=== PATIENT | female | born 1970 | race Caucasian/White ===

== ENCOUNTER 2019-11-29 11:34 | Outpatient (REF) | payer OTHER, SELFPAY ==
[2019-11-29 12:38] LABS: MANUAL DIFF FLAG NO
[2019-11-29 12:44] LABS: Basophils Absolute Auto 0.1 X10*3/uL (0.0-0.2); Basophils Percent Auto 0.7 % (0-2); Eosinophils Absolute Auto 0.3 X10*3/uL (0.0-0.4); Eosinophils Percent Auto 3.4 % (0-4); Hematocrit 39.8 % (37-47); Hemoglobin 13.1 g/dl (12.0-16.0); Imm Gran Abs Auto 0.03 X10*3/uL (0.00-0.03); Imm Gran Pct Auto 0.4 % (0.0-0.4); Lymphocytes Absolute Auto 2.5 X10*3/uL (1.2-4.9); Lymphocytes Percent Auto 31.9 % (20-40); Mean Corpuscular HGB Conc 32.9 g/dl (31.0-35.0); Mean Corpuscular Hemoglobin 29.2 pg (27.0-33.0); Mean Corpuscular Volume 88.8 fL (80-98); Mean Platelet Volume 10.9 fL (9.4-12.3); Monocytes Absolute Auto 0.5 X10*3/uL (0.1-1.2); Monocytes Percent Auto 6.2 % (2-11); Neutrophils Absolute Auto 4.4 X10*3/uL (2.0-8.3); Neutrophils Percent Auto 57.4 % (45-73); Platelet Count 264 X10*3/uL (160-400); Red Blood Count 4.48 X10*6/uL (4.20-5.50); Red Cell Distribution Width 12.4 % (11.0-16.0); White Blood Count 7.7 X10*3/uL (4.8-10.8)
[2019-11-29 12:56] LABS: Glucose Urine UA NEG (NEG); Leukocyte Esterase Urine NEG (NEG); Nitrite Urine NEG (NEG); PH 5.5 (5.0-8.0); Specific Gravity - Urine 1.015 (1.005-1.025); Urine Blood 2+ (NEG); Urine Ketones NEG (NEG); Urine Protein 2+ MG/DL (NEG-TRACE)
[2019-11-29 12:59] LABS: Appearance Urine CLEAR; Color Urine STRAW
[2019-11-29 13:14] LABS: Albumin Level 4.1 g/dL (3.5-5.0); Anion Gap 16 (12-20); Blood Urea Nitrogen 48 mg/dL (9-16); Calcium 9.5 mg/dL (8.4-10.2); Carbon Dioxide 21 mmol/L (22-29); Chloride 107 mmol/L (96-108); Estimated Glomerular Filt Rate 18; Phosphorus 4.3 mg/dL (2.7-4.5); Potassium 5.7 mmol/l (3.3-5.1); Sodium 138 mmol/L (135-145)
[2019-11-29 13:27] LABS: Creatinine Urine 49.49 mg/dL; Creatinine Urine 50.13 mg/dL
[2019-11-29 13:30] LABS: Vitamin D 25-OH Total 19.7 ng/mL (>30)
[2019-11-29 13:39] LABS: Renal w Reflex Lab Use Only Order verified
[2019-11-29 13:44] LABS: Squamous Epithelial Cell Urine TRACE /LPF; WBC Urine 0 /HPF (0-4)
[2019-11-29 13:45] LABS: Protein/Creatinine Ratio, Ur 4.34 (<0.2); Total Protein Urine Random 215 mg/dL (<12)
[2019-11-29 13:53] LABS: Glucose Random 79 mg/dL (60-115)
[2019-12-01 17:02] LABS: Calcium (PTHI) 9.6 mg/dL (8.6-10.2); PTHI 330 pg/mL (14-64)
== END 2019-11-29 11:35 | disposition home or self-care (01) ==
LOC: HO.LAB 11:34
PROVIDERS: PCP Internal Medicine; Visit Provider Internal Medicine Nephrology
DX: I13.0 Hypertensive heart and chronic kidney disease with heart failure and stage 1 through stage 4 chronic kidney disease, or unspecified chronic kidney disease (principal); N18.30 Chronic kidney disease, stage 3 unspecified; N17.9 Acute kidney failure, unspecified; E55.9 Vitamin D deficiency, unspecified; N28.9 Disorder of kidney and ureter, unspecified
CPT/HCPCS: 36415; 80051; 81001; 82040; 82043; 82306; 82310; 82550; 82565; 82947; 83735; 83970; 84100; 84156; 84520; 85025

== ENCOUNTER 2019-12-17 14:25 | Emergency (ER) | payer OTHER, SELFPAY ==
[2019-12-17 16:32] VITALS: BP 163/91; PULSE 96; RESP 17; TEMP 36.6; O2SAT 96; BMI 38.2
--- NOTE | 2019-12-17 17:09 | PC.NURSE ---
REPORT GIVEN TO CHAD JOHNSON.
[2019-12-17 17:27] VITALS: BP 139/80; PULSE 91; RESP 18; O2SAT 100
--- NOTE | 2019-12-17 17:30 | ED.GENADULT ---
HPI - General Adult General Chief complaint: General Medical Stated complaint: rash Time Seen by Provider: 12/17/19 16:27 Source: patient Mode of arrival: ambulatory Limitations: no limitations History of Present Illness HPI narrative: States he had an abrasion in the lateral aspect of the left ankle which she has crash in the area turn red also she has some nasal congestion and some cough with associated shortness of breath. No fever or chills. No recent travel or sick contacts. Had COVID test done 2 days ago that was negative Onset (ago): day(s) Location: chest Severity: moderate Pain Consistency: now resolved Relieving factors: none Exacerbating factors: none Associated symptoms: denies other symptoms Treatments prior to arrival: none Related Data Home Medications Medication Instructions Recorded Confirmed carvedilol phosphate 1 cap PO DAILY 12/16/19 12/16/19 docusate sodium [Colace] 100 mg PO DAILY 12/16/19 12/16/19 doxazosin 1 tab PO BEDTIME 12/16/19 12/16/19 furosemide 1 tab PO Q OTHER DAY 12/16/19 12/16/19 meclizine 25 mg PO DAILY PRN 12/16/19 12/16/19 nifedipine 1 tab PO DAILY 12/16/19 12/16/19 sennosides [senna] 8.6 mg PO BEDTIME 12/16/19 12/16/19 Previous Rx's Medication Instructions Recorded cephalexin [Keflex] 500 mg PO Q8H 7 Days #21 cap 12/17/19 doxycycline monohydrate 100 mg PO BID 10 Days #20 cap 12/17/19 Allergies Allergy/AdvReac Type Severity Reaction Status Date / Time No Known Allergies Allergy Mild N/A Verified 12/16/19 14:55 Review of Systems Review of Systems: Constitutional: No Weight loss, No Fever, No Chills, No Night Sweats, No Fatigue, No Malaise ENT/Mouth: No Hearing loss, No Ear Pain, No Nasal Congestion, No Sinus Pain, No Hoarseness, No sore throat, No Rhinorrhea, No Swallowing Difficulty . Eyes: No Eye Pain, No Swelling, No Redness, No Foreign Body, No Discharge, No Vision Changes Cardiovascular: No Chest Pain, No SOB, No Dyspnea on Exertion, No Orthopnea, No Edema, No Palpitations Respiratory: No Cough, No Sputum, No Wheezing, No Smoke Exposure, No Dyspnea Gastrointestinal: No Nausea, No Vomiting, No Diarrhea, No Constipation, No abdominal Pain, No Hematochezia, No Melena Genitourinary: no irregular bleeding, No Dysuria, No Urinary Frequency, No Hematuria, No Urinary Incontinence, No Urgency, No Flank Pain, No Urinary Flow Changes, No Hesitancy Musculoskeletal: No joint pain, No Myalgias, No Joint Swelling Skin: No Skin Lesions, as noted Neuro: No Weakness, No Numbness, No Paresthesias, No Loss of Consciousness, No Dizziness, No Headache Psych: No Anxiety/Panic, No Depression, No SI/HI/AH/VH, No Social Issues Heme/Lymph: No Bruising, No Bleeding,No Lymphadenopathy Endocrine: No Polyuria, No Polydipsia, No Temperature Intolerance Yes all other systems are reviewed and are negative [facility] Past Medical History Attestation statement: The following information was validated with the patient. Medical History (Updated 12/17/19 @ 20:51 by Idris Calderon NP) Anemia Back pain Chronic renal insufficiency Depression GERD (gastroesophageal reflux disease) History of headache History of postoperative nausea HTN (hypertension) Lab test negative for COVID-19 virus Surgical History (Updated 12/16/19 @ 14:53 by Morelia Morrow) History of endometrial ablation Hx of hysterectomy Hx of tubal ligation Social History Social History Smoking Status: Former smoker Packs Per Day: 0.5 Cigarettes Per Day: 10.0 Years Smoked: 10+ Use of substances other than those prescribed or required for medical reasons: No Advance Directives: No Advance Directives Information Provided: No Physical Exam Vital Signs: Vital Signs: Last Vital Signs Temp 97.9 F 12/17/19 16:32 Pulse 93 12/17/19 19:54 Resp 18 12/17/19 19:54 BP 133/79 12/17/19 19:54 Pulse Ox 99 12/17/19 19:54 Body Mass Index 38.2 Reviewed Const: General: cooperative and healthy appearing; No acute distress or intoxicated appearing Nutritional Appearance: average body habitus Orientation/consciousness: patient oriented x3 HENMT: Head: Yes normal to inspection Ears: hearing grossly normal bilaterally Eyes: General: appearance normal, both eyes and all related structures Visual Padilla: normal visual padilla by confrontation Neck: Neck: Yes normal visual inspection and No tender Thyroid: Thyroid normal Chest: Chest palpation & inspection: normal inspection of the chest Resp: Effort & Inspection: normal respiratory effort Cardio: Jugular venous distension: no JVD GI: Inspection: Yes normal to inspection Percussion: Yes normal to percussion Auscultation: normal bowel sounds : General: Yes no CVA tenderness Back/Spine/Pelvis: Back: no CVA tenderness Skin: General skin exam: no rashes or lesions noted Neuro: General: patient oriented x3 Extrem: Other: General: Yes normal to inspection Upper/lower leg/hip images: 1. as noted Course Course Course Narrative: Sign-out to Jacinda PARKER pending repeat troponin, no delta can be discharged home as planned. Medical Decision Making MDM Narrative Medical decision making narrative: Perc negative Heart score 0 Shortness of breath/chest wall pain in the setting of recent URI/cough for 2 days with a negative COVID tests otherwise workup essentially unremarkable here. A 0.5 trope initial repeat for Delta suspicions are low. As it relates to her cellulitis in the left lower extremity no evidence of DVT bilaterally and will go ahead and start her on p.o. antibiotics for home. Patient agreeable stable for discharge. Lab Data Result diagrams: 12/17/19 18:09 12/17/19 18:08 Labs: Lab Results 12/17/19 12/17/19 12/17/19 Range/Units 18:08 18:08 18:09 WBC 7.8 (4.8-10.8) X10*3/uL RBC 3.90 L (4.20-5.50) X10*6/uL Hgb 11.4 L (12.0-16.0) g/dl Hct 34.9 L (37-47) % MCV 89.5 (80-98) fL MCH 29.2 (27.0-33.0) pg MCHC 32.7 (31.0-35.0) g/dl RDW 12.8 (11.0-16.0) % Plt Count 239 (160-400) X10*3/uL MPV 10.2 (9.4-12.3) fL Immature Gran % (Auto) 0.3 (0.0-0.4) % Neut % (Auto) 59.2 (45-73) % Lymph % (Auto) 28.6 (20-40) % [place] % (Auto) 7.2 (2-11) % Eos % (Auto) 4.3 H (0-4) % Baso % (Auto) 0.4 (0-2) % Lymph # (Auto) 2.2 (1.2-4.9) X10*3/uL [place] # (Auto) 0.6 (0.1-1.2) X10*3/uL Eos # (Auto) 0.3 (0.0-0.4) X10*3/uL Baso # (Auto) 0.0 (0.0-0.2) X10*3/uL Abs Immat Gran (auto) 0.02 (0.00-0.03) X10*3/uL Absolute Neuts (auto) 4.6 (2.0-8.3) X10*3/uL Absolute Nucleated RBC 0.000 (0.0-0.012) X10*3/uL Nucleated RBC % (auto) 0.0 (0.0-0.2) /100WBC Sodium 139 (135-145) mmol/L Potassium 4.5 D (3.3-5.1) mmol/l Chloride 106 (96-108) mmol/L Carbon Dioxide 24 (22-29) mmol/L Anion Gap 14 (12-20) BUN 42 H (9-16) mg/dL Creatinine 2.94 H (0.5-1.4) mg/dL Estim Creat Clear Calc 28.1 Estimated GFR 17 Random Glucose 97 (60-115) mg/dL Calcium 8.5 D (8.4-10.2) mg/dL Total Bilirubin < 0.2 (0.0-1.0) mg/dL AST 19 (5-31) U/L ALT 17 (0-31) U/L Alkaline Phosphatase 117 (39-117) U/L Troponin I High Sens 8.5 (<3.5-17.0) ng/L Total Protein 7.0 (6.5-8.0) g/dL Albumin 3.8 (3.5-5.0) g/dL Urine Color Urine Appearance Urine pH (5.0-8.0) Ur Specific [place] (1.005-1.025) Urine Protein (NEG-TRACE) MG/DL Urine Glucose (UA) (NEG) MG/DL Urine Ketones (NEG) MG/DL Urine Blood (NEG) Urine Nitrite (NEG) Ur Leukocyte Esterase (NEG) Urine RBC (0) /HPF Urine WBC (0-4) /HPF Ur Squamous Epith Cells /LPF Urine Bacteria /LPF 12/17/19 Range/Units 19:51 WBC (4.8-10.8) X10*3/uL RBC (4.20-5.50) X10*6/uL Hgb (12.0-16.0) g/dl Hct (37-47) % MCV (80-98) fL MCH (27.0-33.0) pg MCHC (31.0-35.0) g/dl RDW (11.0-16.0) % Plt Count (160-400) X10*3/uL MPV (9.4-12.3) fL Immature Gran % (Auto) (0.0-0.4) % Neut % (Auto) (45-73) % Lymph % (Auto) (20-40) % [place] % (Auto) (2-11) % Eos % (Auto) (0-4) % Baso % (Auto) (0-2) % Lymph # (Auto) (1.2-4.9) X10*3/uL [place] # (Auto) (0.1-1.2) X10*3/uL Eos # (Auto) (0.0-0.4) X10*3/uL Baso # (Auto) (0.0-0.2) X10*3/uL Abs Immat Gran (auto) (0.00-0.03) X10*3/uL Absolute Neuts (auto) (2.0-8.3) X10*3/uL Absolute Nucleated RBC (0.0-0.012) X10*3/uL Nucleated RBC % (auto) (0.0-0.2) /100WBC Sodium (135-145) mmol/L Potassium (3.3-5.1) mmol/l Chloride (96-108) mmol/L Carbon Dioxide (22-29) mmol/L Anion Gap (12-20) BUN (9-16) mg/dL Creatinine (0.5-1.4) mg/dL Estim Creat Clear Calc Estimated GFR Random Glucose (60-115) mg/dL Calcium (8.4-10.2) mg/dL Total Bilirubin (0.0-1.0) mg/dL AST (5-31) U/L ALT (0-31) U/L Alkaline Phosphatase (39-117) U/L Troponin I High Sens (<3.5-17.0) ng/L Total Protein (6.5-8.0) g/dL Albumin (3.5-5.0) g/dL Urine Color YELLOW Urine Appearance CLEAR Urine pH 6.0 (5.0-8.0) Ur Specific [place] 1.015 (1.005-1.025) Urine Protein 2+ H (NEG-TRACE) MG/DL Urine Glucose (UA) NEG (NEG) MG/DL Urine Ketones NEG (NEG) MG/DL Urine Blood 2+ H (NEG) Urine Nitrite NEG (NEG) Ur Leukocyte Esterase NEG (NEG) Urine RBC 1-4 (0) /HPF Urine WBC 0 (0-4) /HPF Ur Squamous Epith Cells TRACE /LPF Urine Bacteria NONE /LPF Discharge Plan Discharge Clinical Impression: Cellulitis and abscess of left leg, Atypical chest pain Patient Disposition: Home, Self-Care Instructions: Cellulitis (ED), Upper Respiratory Infection (ED) Prescriptions: New cephalexin [Keflex] 500 mg capsule 500 mg PO Q8H 7 Days Qty: 21 RF: 0 doxycycline monohydrate 100 mg capsule 100 mg PO BID 10 Days Qty: 20 RF: 0 No Action nifedipine 30 mg tablet extended release 24hr 1 tab PO DAILY RF: 0 sennosides [senna] 8.6 mg Tablet 8.6 mg PO BEDTIME RF: 0 meclizine 25 mg Tablet 25 mg PO DAILY PRN (Reason: Vertigo) RF: 0 docusate sodium [Colace] 100 mg Capsule 100 mg PO DAILY RF: 0 doxazosin 4 mg tablet 1 tab PO BEDTIME RF: 0 furosemide 20 mg tablet 1 tab PO Q OTHER DAY RF: 0 carvedilol phosphate 10 mg capsule, ER multiphase 24 hr 1 cap PO DAILY RF: 0 Referrals: Rozina iNcole MD [Primary Care Provider] - 1 week
--- NOTE | 2019-12-17 17:33 | XR_ITS ---
EXAMINATION: CHEST 1 VIEW CLINICAL INFORMATION: Shortness of breath. COMPARISON: None. TECHNIQUE: An AP view of the chest is provided. FINDINGS: The cardiac silhouette is not enlarged. The mediastinal and hilar contours are unremarkable. There are neither pleural effusions nor pneumothoraces. There are no consolidations. The osseous structures are unremarkable. XR/XR chest 1V IMPRESSION: No evidence for acute disease.
--- NOTE | 2019-12-17 17:44 | US_ITS ---
EXAMINATION: US VENOUS ULTRASOUND WITH DOPPLER LOWER EXTREMITY, BILATERAL CLINICAL INFORMATION: Edema. Pain. COMPARISON: Venous Doppler ultrasound exam left lower extremity 07/16/2017 TECHNIQUE: Ultrasound of the deep veins is performed from the hip to the calf with compression sonography and color and pulse Doppler assessment. Spectral analysis with color-flow imaging is performed. FINDINGS: RIGHT: There is normal venous compression and respiratory variation and augmented flow. The visualized common femoral vein, superficial femoral vein, profunda femoral vein, popliteal vein, and the trifurcation region shows no evidence of deep venous thrombosis. There is no significant popliteal fossa cyst. LEFT: There is normal venous compression and respiratory variation and augmented flow. The visualized common femoral vein, superficial femoral vein, profunda femoral vein, popliteal vein, and the trifurcation region shows no evidence of deep venous thrombosis. There is no significant popliteal fossa cyst. Morphologically normal-appearing lymph node with fatty treasure in left groin measuring 0.9 cm in short axis diameter. If the patient's symptoms persist, followup ultrasound in 5 days 7 days might be of value to exclude proximal propagation from a non-visualized calf vein. US/US venous duplex LE BI IMPRESSION: No DVT demonstrated in the bilateral lower extremity.
[2019-12-17] MEDS: 0.9 % Sodium Chloride 500 ML 1000 ML IV (18:10)
[2019-12-17 18:17] LABS: MANUAL DIFF FLAG NO
[2019-12-17 18:26] LABS: Basophils Percent Auto 0.4 % (0-2); Eosinophils Absolute Auto 0.3 X10*3/uL (0.0-0.4); Eosinophils Percent Auto 4.3 % (0-4); Hematocrit 34.9 % (37-47); Hemoglobin 11.4 g/dl (12.0-16.0); Imm Gran Abs Auto 0.02 X10*3/uL (0.00-0.03); Imm Gran Pct Auto 0.3 % (0.0-0.4); Lymphocytes Absolute Auto 2.2 X10*3/uL (1.2-4.9); Lymphocytes Percent Auto 28.6 % (20-40); Mean Corpuscular HGB Conc 32.7 g/dl (31.0-35.0); Mean Corpuscular Hemoglobin 29.2 pg (27.0-33.0); Mean Corpuscular Volume 89.5 fL (80-98); Mean Platelet Volume 10.2 fL (9.4-12.3); Monocytes Absolute Auto 0.6 X10*3/uL (0.1-1.2); Monocytes Percent Auto 7.2 % (2-11); Neutrophils Absolute Auto 4.6 X10*3/uL (2.0-8.3); Neutrophils Percent Auto 59.2 % (45-73); Platelet Count 239 X10*3/uL (160-400); Red Cell Distribution Width 12.8 % (11.0-16.0); White Blood Count 7.8 X10*3/uL (4.8-10.8)
[2019-12-17 18:56] LABS: Alanine Aminotransferase 17 U/L (0-31); Albumin Level 3.8 g/dL (3.5-5.0); Alkaline Phosphatase 117 U/L (39-117); Anion Gap 14 (12-20); Aspartate Amino Transferase 19 U/L (5-31); Bilirubin Total < 0.2 mg/dL (0.0-1.0); Blood Urea Nitrogen 42 mg/dL (9-16); Calcium 8.5 mg/dL (8.4-10.2); Carbon Dioxide 24 mmol/L (22-29); Chloride 106 mmol/L (96-108); Creatinine Clr Calc Pharmacy 28.1; Estimated Glomerular Filt Rate 17; Glucose Random 97 mg/dL (60-115); Potassium 4.5 mmol/l (3.3-5.1); Sodium 139 mmol/L (135-145); Troponin-I High Sensitivity 8.5 ng/L (<3.5-17.0)
--- NOTE | 2019-12-17 19:14 | PC.NURSE ---
Report received from Simon Kumar RN. This RN assumes care of patient. Will continue to monitor.
[2019-12-17 19:54] VITALS: BP 133/79; PULSE 93; RESP 18; O2SAT 99
[2019-12-17 19:59] LABS: Glucose Urine UA NEG (NEG); Leukocyte Esterase Urine NEG (NEG); Nitrite Urine NEG (NEG); Specific Gravity - Urine 1.015 (1.005-1.025); Urine Blood 2+ (NEG); Urine Ketones NEG (NEG); Urine Protein 2+ MG/DL (NEG-TRACE)
[2019-12-17 20:01] LABS: Appearance Urine CLEAR; Color Urine YELLOW
[2019-12-17 20:13] LABS: Squamous Epithelial Cell Urine TRACE /LPF; WBC Urine 0 /HPF (0-4)
[2019-12-17 22:08] LABS: Troponin-I High Sensitivity 7.5 ng/L (<3.5-17.0)
== END 2019-12-17 22:20 | disposition home or self-care (01) ==
PROVIDERS: Nurse Practitioner Primary Care; Emergency Provider Internal Medicine; PCP Internal Medicine
DX: L03.116 Cellulitis of left lower limb (principal); R60.0 Localized edema; R07.89 Other chest pain; M79.605 Pain in left leg; Z79.899 Other long term (current) drug therapy
CPT/HCPCS: 36415; 71045; 80053; 81001; 81003; 84484; 85025; 93970; 99284

== ENCOUNTER 2019-12-23 08:44 | Day surgery (SDC) | payer OTHER, SELFPAY ==
[2019-12-16 14:50] VITALS: BMI 35.4
--- NOTE | 2019-12-22 11:52 | HO.ANESPROP2 ---
Documented by User: Yovana Huerta 12/22/19 12:13 HPI - Anesthesia Eval Consult details Narrative: 49yo F for Colonoscopy 12/17/19: ED visit with atypical CP, cardiac r/o with EKG and trops. Found to have LLE cellulitis. DVT neg. Started on abx. Instructed to f/u with PCP Follows nephrology for CKD St 4 -renal arteriosclerosis, distended tubles, TBM, IgA mild, adv chronic changes with 80% Interstitial Fibrosis PMFSH Past Medical History Medical History Anemia Back pain Chronic renal insufficiency Depression GERD (gastroesophageal reflux disease) History of headache History of postoperative nausea HTN (hypertension) Lab test negative for COVID-19 virus Surgical History Surgical History History of endometrial ablation Hx of hysterectomy Hx of tubal ligation Social History Social History Smoking Status: Former smoker Packs Per Day: 0.5 Cigarettes Per Day: 10.0 Years Smoked: 10+ Smoked in Last 30 Days: No Smoking Quit Date: 08/2019 Use of substances other than those prescribed or required for medical reasons: No Have you been hit, kicked, punched, or otherwise hurt by someone within the past year? If so, by whom?: No Advance Directives Information Provided: No Recently lost weight without trying: No Meds Allergies Allergy/AdvReac Type Severity Reaction Status Date / Time No Known Allergies Allergy Mild N/A Verified 12/16/19 14:55 Home Medications Medication Instructions Recorded Confirmed Type carvedilol phosphate 1 cap PO DAILY 12/16/19 12/23/19 History docusate sodium [Colace] 100 mg PO DAILY 12/16/19 12/16/19 History doxazosin 1 tab PO BEDTIME 12/16/19 12/23/19 History furosemide 1 tab PO Q OTHER DAY 12/16/19 12/23/19 History meclizine 25 mg PO DAILY PRN 12/16/19 12/23/19 History nifedipine 1 tab PO DAILY 12/16/19 12/23/19 History sennosides [senna] 8.6 mg PO BEDTIME 12/16/19 12/16/19 History cephalexin [Keflex] 500 mg PO Q8H 12/23/19 History Exam Exam Date and Time: December 22, 2019 1152 Height,Weight and Vital Signs: Height 5 ft 5 in Weight 96.615 kg Pertinent Lab Results Pertinent Lab Results: Laboratory Tests 12/17/19 12/17/19 18:08 18:09 WBC 7.8 Hgb 11.4 L Hct 34.9 L Plt Count 239 Sodium 139 Potassium 4.5 D Chloride 106 Carbon Dioxide 24 BUN 42 H Creatinine 2.94 H Narrative Narrative: CXR 12/2019 Neg for acute ds. Rhythm strip 12/2019: appears to be NSR, no official reading Assessment and Plan Assessment Anesthesia Assessment: Chart Reviewed Documented by User: Raquel Lawler 12/23/19 09:56 PMFSH Past Medical History Medical History Anemia Back pain Chronic renal insufficiency Depression GERD (gastroesophageal reflux disease) History of headache History of postoperative nausea HTN (hypertension) Lab test negative for COVID-19 virus Surgical History Surgical History History of endometrial ablation Hx of hysterectomy Hx of tubal ligation Social History Social History Smoking Status: Former smoker Packs Per Day: 0.5 Cigarettes Per Day: 10.0 Years Smoked: 10+ Smoked in Last 30 Days: No Smoking Quit Date: 08/2019 Use of substances other than those prescribed or required for medical reasons: No Have you been hit, kicked, punched, or otherwise hurt by someone within the past year? If so, by whom?: No Advance Directives Information Provided: No Recently lost weight without trying: No Meds Allergies Allergy/AdvReac Type Severity Reaction Status Date / Time No Known Allergies Allergy Mild N/A Verified 12/16/19 14:55 Home Medications Medication Instructions Recorded Confirmed Type carvedilol phosphate 1 cap PO DAILY 12/16/19 12/23/19 History docusate sodium [Colace] 100 mg PO DAILY 12/16/19 12/16/19 History doxazosin 1 tab PO BEDTIME 12/16/19 12/23/19 History furosemide 1 tab PO Q OTHER DAY 12/16/19 12/23/19 History meclizine 25 mg PO DAILY PRN 12/16/19 12/23/19 History nifedipine 1 tab PO DAILY 12/16/19 12/23/19 History sennosides [senna] 8.6 mg PO BEDTIME 12/16/19 12/16/19 History cephalexin [Keflex] 500 mg PO Q8H 12/23/19 History Exam Airway Mallampati Class: I TM Dist: >3cm Neck ROM: Full Loose/Missing/Broken Teeth: No Heart: RRR Lungs: CTA Assessment and Plan Assessment Anesthesia Assessment: Anesthesia Plan Discussed and Chart Reviewed Final Anesthetic Review NPO: Yes ASA Class: III Final Preanesthetic Review: Meds/Allgs Chart Reviewed, Consent Obtained/Reviewed and Anes Risks/Benef Reviewed Patient Risk: Intermediate Procedure Risk: Low Anesthetic Plan Anesthetic Plan: MAC: Disposition: Standard PACU
[2019-12-23 09:25] VITALS: PULSE 73; RESP 18; TEMP 36.2; O2SAT 99
[2019-12-23] MEDS: 0.9 % Sodium Chloride 1,000 ML 50 ML IVCONT (09:41)
--- NOTE | 2019-12-23 10:23 | PC.NURSE ---
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 PT WITH WIDESPREAD RASH AIRWAY PATENT NO SOB NOTED LS CLEAR
== END 2019-12-23 23:59 ==
LOC: HO.SSS 08:45
PROVIDERS: PCP Internal Medicine; Visit Provider Internal Medicine Gastroenterology
DX: Z12.11 Encounter for screening for malignant neoplasm of colon (principal); Z53.9 Procedure and treatment not carried out, unspecified reason; I12.9 Hypertensive chronic kidney disease with stage 1 through stage 4 chronic kidney disease, or unspecified chronic kidney disease; N18.4 Chronic kidney disease, stage 4 (severe); K21.9 Gastro-esophageal reflux disease without esophagitis; Z79.899 Other long term (current) drug therapy; Z87.891 Personal history of nicotine dependence

== ENCOUNTER 2019-12-23 10:21 | Inpatient (IN) | payer OTHER, SELFPAY ==
[2019-12-23] VITALS (7 sets, daily range): BP systolic 110–1734; BP diastolic 60–90; PULSE 79–90; RESP 18–20; TEMP 36.2–37.3; O2SAT 98–100; BMI 39.9
--- NOTE | 2019-12-23 10:23 | US_ITS ---
EXAMINATION: US VENOUS ULTRASOUND WITH DOPPLER LOWER EXTREMITY, LEFT CLINICAL INFORMATION: Marked swelling evaluate for DVT. COMPARISON: Prior ultrasound exam 12/17/2019 TECHNIQUE: Ultrasound of the deep veins is performed from the hip to the calf with compression sonography and color and pulse Doppler assessment. Spectral analysis with color-flow imaging is performed. FINDINGS: There is normal venous compression and respiratory variation and augmented flow. The visualized common femoral vein, superficial femoral vein, profunda femoral vein, popliteal vein, and the trifurcation region shows no evidence of deep venous thrombosis. There is no significant popliteal fossa cyst. If the patient's symptoms persist, followup ultrasound in 5 days 7 days might be of value to exclude proximal propagation from a non-visualized calf vein. US/US venous duplex LE IMPRESSION: No DVT demonstrated in the left lower extremity.
--- NOTE | 2019-12-23 10:23 | ED.SKABFB ---
HPI - Skin/Abscess/Foreign Bdy General Chief complaint: General Medical Stated complaint: skin rash Time Seen by Provider: 12/23/19 10:23 Source: patient and old records reviewed Mode of arrival: other (from [facility] completed prep for colonoscopy but sent due to rash) Limitations: no limitations History of Present Illness MD complaint: rash (LLE worsening cellulitis with swelling and diffuse itching body rash) Onset (ago): day(s) (Friday - seen here for cellulitis sent out on keflex and doxy but area has worsened now with diffuse rash) Location: generalized and LLE Severity: moderate Quality: burning and aching Pain Consistency: constant Relieving factors: none Exacerbating factors: movement Context: recent illness and recent antibiotic Associated symptoms: denies other symptoms Treatments prior to arrival: antibiotic (has been on keflex and doxy since Friday, had US as well negative for DVT) Related Data Home Medications Medication Instructions Recorded Confirmed carvedilol phosphate 10 mg PO DAILY 12/16/19 12/23/19 docusate sodium [Colace] 100 mg PO DAILY PRN 12/16/19 12/23/19 doxazosin 4 mg PO BEDTIME 12/16/19 12/23/19 furosemide 20 mg PO Q2D 12/16/19 12/23/19 meclizine 25 mg PO DAILY PRN 12/16/19 12/23/19 nifedipine 30 mg PO DAILY 12/16/19 12/23/19 Zantrex 1 tab PO TIDWM 12/23/19 12/23/19 cephalexin [Keflex] 500 mg PO Q8H 12/23/19 12/23/19 ergocalciferol (vitamin D2) 1,250 mcg PO PLEITEZ@0900 12/23/19 12/23/19 simethicone 180 mg PO QIDWMHS PRN 12/23/19 12/23/19 sodium zirconium cyclosilicate 10 g PO MOWEFR@0900 12/23/19 12/23/19 [Lokelma] Previous Rx's Medication Instructions Recorded doxycycline monohydrate 100 mg PO BID 10 Days #20 cap 12/17/19 Allergies Allergy/AdvReac Type Severity Reaction Status Date / Time No Known Allergies Allergy Mild N/A Verified 12/16/19 14:55 Review of Systems Review of Systems: Constitutional : No Fever, No Chills ENT/Mouth : No sore throat, No Rhinorrhea Eyes: No Eye Pain, No Swelling, No Redness Cardiovascular : No Chest Pain, No SOB, pos LLE edema Respiratory : No Cough, No Sputum Gastrointestinal : No Nausea, No Vomiting, No Diarrhea, No abdominal Pain Genitourinary : No Dysuria, No Hematuria Musculoskeletal : No joint pain, No Myalgias, No Joint Swelling Skin : pos Skin Lesions, positive skin rash Neuro : No Weakness, No Numbness, No Headache Psych : No Anxiety, No Depression Heme/Lymph: No Bruising, No Bleeding,No Lymphadenopathy Endocrine : No Polyuria, No Polydipsia All other systems reviewed and are negative [facility] Past Medical History Attestation statement: The following information was validated with the patient. Medical History Anemia Back pain Chronic renal insufficiency Depression GERD (gastroesophageal reflux disease) History of headache History of postoperative nausea HTN (hypertension) Lab test negative for COVID-19 virus Surgical History History of endometrial ablation Hx of hysterectomy Hx of tubal ligation Social History Social History Smoking Status: Former smoker Packs Per Day: 0.5 Cigarettes Per Day: 10.0 Years Smoked: 10+ Advance Directives: No Advance Directives Information Provided: Yes Physical Exam Vital Signs: Vital Signs: Last Vital Signs Temp 99.2 F 12/23/19 10:24 Pulse 81 12/23/19 11:24 Resp 18 12/23/19 10:24 BP 148/85 H 12/23/19 11:24 Pulse Ox 100 12/23/19 10:24 Body Mass Index 39.9 Appearance: Alert. Oriented X3. No acute distress. Eyes: Pupils equal, round and reactive to light. ENT: Pharynx normal. Neck: Normal inspection. Neck supple. CVS: Normal heart rate and rhythm. Pulses normal. Respiratory: No respiratory distress. Breath sounds normal. Abdomen: Soft and nontender. Skin: Skin warm and dry. diffuse raised erythematous lacy rash on body looks like drug rash, LLE hot to touch swollen from calf to foot with erythema, no crepitus, distal NV intact, no pain out of proportion. Extremities: pos 1+ pitting L lower extremity edema. pos L calf ttp Neuro: Oriented X 3. No motor deficit. No sensory deficit. Course Course Course Narrative: will admit MDM - Skin/Abscess/Foreign Bdy MDM Narrative Medical decision making narrative: 49 yo female with CKD, HTN here on Friday for cellulitis of LLE started on keflex and doxycycline now has drug rash - will start on pepcid and benadryl, her LLE is more swollen and erythematous will repeat US for DVT as well as cultures/lactic acid - start on likely levofloxacin and vancomycin planned admit at this time Lab Data Result diagrams: 12/23/19 10:43 12/23/19 10:43 Labs: Lab Results 12/23/19 12/23/19 12/23/19 Range/Units 10:42 10:43 10:43 WBC 7.4 (4.8-10.8) X10*3/uL RBC 3.81 L (4.20-5.50) X10*6/uL Hgb 11.1 L (12.0-16.0) g/dl Hct 33.9 L (37-47) % MCV 89.0 (80-98) fL MCH 29.1 (27.0-33.0) pg MCHC 32.7 (31.0-35.0) g/dl RDW 12.6 (11.0-16.0) % Plt Count 261 (160-400) X10*3/uL MPV 10.0 (9.4-12.3) fL Immature Gran % (Auto) 0.4 (0.0-0.4) % Neut % (Auto) 59.3 (45-73) % Lymph % (Auto) 25.6 (20-40) % [place] % (Auto) 7.9 (2-11) % Eos % (Auto) 6.4 H (0-4) % Baso % (Auto) 0.4 (0-2) % Lymph # (Auto) 1.9 (1.2-4.9) X10*3/uL [place] # (Auto) 0.6 (0.1-1.2) X10*3/uL Eos # (Auto) 0.5 H (0.0-0.4) X10*3/uL Baso # (Auto) 0.0 (0.0-0.2) X10*3/uL Abs Immat Gran (auto) 0.03 (0.00-0.03) X10*3/uL Absolute Neuts (auto) 4.4 (2.0-8.3) X10*3/uL Absolute Nucleated RBC 0.000 (0.0-0.012) X10*3/uL Nucleated RBC % (auto) 0.0 (0.0-0.2) /100WBC PT (10.8-13.0) SEC INR (0.9-1.1) APTT (24.1-38.0) SEC Sodium 139 (135-145) mmol/L Potassium 4.3 (3.3-5.1) mmol/l Chloride 103 (96-108) mmol/L Carbon Dioxide 28 (22-29) mmol/L Anion Gap 12 (12-20) BUN 50 H (9-16) mg/dL Creatinine 2.70 H (0.5-1.4) mg/dL Estim Creat Clear Calc 31.2 Estimated GFR 19 Random Glucose 91 (60-115) mg/dL Lactic Acid 1.4 (0.5-2.0) mmol/L Calcium 8.8 (8.4-10.2) mg/dL Magnesium (1.6-2.6) mg/dL Total Bilirubin (0.0-1.0) mg/dL Direct Bilirubin (0.0-0.5) mg/dL AST (5-31) U/L ALT (0-31) U/L Alkaline Phosphatase (39-117) U/L Total Creatine Kinase 120 (26-140) U/L Total Protein (6.5-8.0) g/dL Albumin (3.5-5.0) g/dL COVID-19 (VIPIN) (Negative) COVID-19 Clin Com 12/23/19 12/23/19 12/23/19 Range/Units 10:43 10:43 10:50 WBC (4.8-10.8) X10*3/uL RBC (4.20-5.50) X10*6/uL Hgb (12.0-16.0) g/dl Hct (37-47) % MCV (80-98) fL MCH (27.0-33.0) pg MCHC (31.0-35.0) g/dl RDW (11.0-16.0) % Plt Count (160-400) X10*3/uL MPV (9.4-12.3) fL Immature Gran % (Auto) (0.0-0.4) % Neut % (Auto) (45-73) % Lymph % (Auto) (20-40) % [place] % (Auto) (2-11) % Eos % (Auto) (0-4) % Baso % (Auto) (0-2) % Lymph # (Auto) (1.2-4.9) X10*3/uL [place] # (Auto) (0.1-1.2) X10*3/uL Eos # (Auto) (0.0-0.4) X10*3/uL Baso # (Auto) (0.0-0.2) X10*3/uL Abs Immat Gran (auto) (0.00-0.03) X10*3/uL Absolute Neuts (auto) (2.0-8.3) X10*3/uL Absolute Nucleated RBC (0.0-0.012) X10*3/uL Nucleated RBC % (auto) (0.0-0.2) /100WBC PT 12.5 (10.8-13.0) SEC INR 1.1 (0.9-1.1) APTT 34.4 (24.1-38.0) SEC Sodium (135-145) mmol/L Potassium (3.3-5.1) mmol/l Chloride (96-108) mmol/L Carbon Dioxide (22-29) mmol/L Anion Gap (12-20) BUN (9-16) mg/dL Creatinine (0.5-1.4) mg/dL Estim Creat Clear Calc Estimated GFR Random Glucose (60-115) mg/dL Lactic Acid (0.5-2.0) mmol/L Calcium (8.4-10.2) mg/dL Magnesium 2.2 (1.6-2.6) mg/dL Total Bilirubin 0.4 (0.0-1.0) mg/dL Direct Bilirubin 0.2 (0.0-0.5) mg/dL AST 14 (5-31) U/L ALT 14 (0-31) U/L Alkaline Phosphatase 116 (39-117) U/L Total Creatine Kinase (26-140) U/L Total Protein 6.5 (6.5-8.0) g/dL Albumin 3.6 (3.5-5.0) g/dL COVID-19 (VIPIN) Negative (Negative) COVID-19 Clin Com See Note Discharge Plan Discharge Clinical Impression: Cellulitis, Drug rash Patient Disposition: Admitted As Inpatient Prescriptions: No Action nifedipine 30 mg tablet extended release 24hr 30 mg PO DAILY RF: 0 meclizine 25 mg Tablet 25 mg PO DAILY PRN (Reason: Vertigo) RF: 0 docusate sodium [Colace] 100 mg Capsule 100 mg PO DAILY PRN (Reason: Constipation) RF: 0 doxazosin 4 mg tablet 4 mg PO BEDTIME RF: 0 furosemide 20 mg tablet 20 mg PO Q2D RF: 0 carvedilol phosphate 10 mg capsule, ER multiphase 24 hr 10 mg PO DAILY RF: 0 cephalexin [Keflex] 500 mg capsule 500 mg PO Q8H RF: 0 doxycycline monohydrate 100 mg capsule 100 mg PO BID 10 Days Qty: 20 RF: 0 simethicone 180 mg Capsule 180 mg PO QIDWMHS PRN (Reason: gas) RF: 0 ergocalciferol (vitamin D2) 1,250 mcg (50,000 unit) Capsule 1,250 mcg PO PLEITEZ@0900 RF: 0 Lokelma 10 gram Powder In Packet 10 g PO MOWEFR@0900 RF: 0 Zantrex 1 tab PO TIDWM RF: 0
[2019-12-23] MEDS: diphenhydrAMINE HCL 50 MG/ML VIAL 25 MG IVPUSH ×2 (10:47→15:31)
[2019-12-23] MEDS: Morphine Sulfate 4 MG/ML CARTRIDGE IVPUSH (10:48)
[2019-12-23] MEDS: ondansetron HCL 4 MG/2 ML VIAL IVPUSH (10:48)
[2019-12-23] MEDS: 0.9 % Sodium Chloride 500 ML IV (10:48)
[2019-12-23] MEDS: Famotidine/PF 20 MG/2 ML VIAL IVPUSH (10:48)
[2019-12-23 10:51] LABS: MANUAL DIFF FLAG NO
--- NOTE | 2019-12-23 10:54 | PC.NURSE ---
IV BY OR STAFF. 20 G R HAND. ALL LABS AND BC X 2 DRAWN BY PCT. MEDICATED PER ORDERS. PHARM AT BEDSIDE FOR MED REC. US READY FOR PATIENT.
[2019-12-23 10:55] LABS: Basophils Percent Auto 0.4 % (0-2); Eosinophils Absolute Auto 0.5 X10*3/uL (0.0-0.4); Eosinophils Percent Auto 6.4 % (0-4); Hematocrit 33.9 % (37-47); Hemoglobin 11.1 g/dl (12.0-16.0); Imm Gran Abs Auto 0.03 X10*3/uL (0.00-0.03); Imm Gran Pct Auto 0.4 % (0.0-0.4); Lymphocytes Absolute Auto 1.9 X10*3/uL (1.2-4.9); Lymphocytes Percent Auto 25.6 % (20-40); Mean Corpuscular HGB Conc 32.7 g/dl (31.0-35.0); Mean Corpuscular Hemoglobin 29.1 pg (27.0-33.0); Monocytes Absolute Auto 0.6 X10*3/uL (0.1-1.2); Monocytes Percent Auto 7.9 % (2-11); Neutrophils Absolute Auto 4.4 X10*3/uL (2.0-8.3); Neutrophils Percent Auto 59.3 % (45-73); Platelet Count 261 X10*3/uL (160-400); Red Blood Count 3.81 X10*6/uL (4.20-5.50); Red Cell Distribution Width 12.6 % (11.0-16.0); White Blood Count 7.4 X10*3/uL (4.8-10.8)
[2019-12-23 11:00] LABS: INTERNATIONAL NORM RATIO 1.1 (0.9-1.1); Prothrombin Time 12.5 SEC (10.8-13.0)
[2019-12-23 11:02] LABS: Partial Thromboplastin Time 34.4 SEC (24.1-38.0)
[2019-12-23 11:17] LABS: COVID-19 Test Negative (Negative)
[2019-12-23 11:20] LABS: Lactic Acid 1.4 mmol/L (0.5-2.0)
--- NOTE | 2019-12-23 11:24 | PC.NURSE ---
RETURNS FROM US. PAIN 0/10. ABX UP PER ORDERS
[2019-12-23 11:25] LABS: Alanine Aminotransferase 14 U/L (0-31); Albumin Level 3.6 g/dL (3.5-5.0); Alkaline Phosphatase 116 U/L (39-117); Anion Gap 12 (12-20); Aspartate Amino Transferase 14 U/L (5-31); Bilirubin Direct 0.2 mg/dL (0.0-0.5); Bilirubin Total 0.4 mg/dL (0.0-1.0); Blood Urea Nitrogen 50 mg/dL (9-16); Calcium 8.8 mg/dL (8.4-10.2); Carbon Dioxide 28 mmol/L (22-29); Chloride 103 mmol/L (96-108); Creatinine Clr Calc Pharmacy 31.2; Estimated Glomerular Filt Rate 19; Glucose Random 91 mg/dL (60-115); Magnesium 2.2 mg/dL (1.6-2.6); Potassium 4.3 mmol/l (3.3-5.1); Sodium 139 mmol/L (135-145); Total Protein 6.5 g/dL (6.5-8.0)
[2019-12-23] MEDS: levoFLOXacin/D5W 500 MG/100 ML PIGGYBACK 100 MG IV (11:26)
--- NOTE | 2019-12-23 13:00 | P.HPHOSP_ITS ---
History of Present Illness Date of Service: 12/23/19 Chief Complaint: Diffuse rash 49-year-old female presented complaining of diffuse rash. patient had been in the ER about 1 week prior to presentation complaining of left lower extremity erythema and fevers and chills. At that time she was given Keflex and do xycycline. Of note prior to starting the antibiotics she was already having a mild pruritic rash. But after starting antibiotics rash got worse and more diffuse of on trunk and legs. So she has returned to the ED. Patient has also been complaining worsening lower extremity edema and orthopnea. Review of Systems Review of Systems: Constitutional: fevers Eyes: denies blurry vision ENT: denies sore throat CVS: denies chest pain Respiratory: dyspnea GI: no abdominal pain : denies dysuria MSK: denies neck pain Skin: diffuserash Neuro: denies specific motor weakness Psych: denies suicidal ideation Endocrine: denies heat/cold intoleratnce Hematologic: denies easy bleeding Allergy: denies hives [facility] Medical History Anemia Back pain Chronic renal insufficiency Depression GERD (gastroesophageal reflux disease) History of headache History of postoperative nausea HTN (hypertension) Lab test negative for COVID-19 virus Surgical History History of endometrial ablation Hx of hysterectomy Hx of tubal ligation Social History Smoking Status: Former smoker Packs Per Day: 0.5 Cigarettes Per Day: 10.0 Years Smoked: 10+ Advance Directives: No Advance Directives Information Provided: Yes Meds Allergies Allergy/AdvReac Type Severity Reaction Status Date / Time No Known Allergies Allergy Mild N/A Verified 12/16/19 14:55 Home Medications Medication Instructions Recorded Confirmed Type carvedilol phosphate 10 mg PO DAILY 12/16/19 12/23/19 History docusate sodium [Colace] 100 mg PO DAILY PRN 12/16/19 12/23/19 History doxazosin 4 mg PO BEDTIME 12/16/19 12/23/19 History furosemide 20 mg PO Q2D 12/16/19 12/23/19 History meclizine 25 mg PO DAILY PRN 12/16/19 12/23/19 History nifedipine 30 mg PO DAILY 12/16/19 12/23/19 History Zantrex 1 tab PO TIDWM 12/23/19 12/23/19 History cephalexin [Keflex] 500 mg PO Q8H 12/23/19 12/23/19 History ergocalciferol (vitamin D2) 1,250 mcg PO PLEITEZ@0900 12/23/19 12/23/19 History simethicone 180 mg PO QIDWMHS PRN 12/23/19 12/23/19 History sodium zirconium cyclosilicate 10 g PO MOWEFR@0900 12/23/19 12/23/19 History [Lokelma] Physical Exam Vital Signs and Narrative: Vital Signs: Last Vital Signs Temp 99.2 F 12/23/19 10:24 Pulse 81 12/23/19 11:24 Resp 18 12/23/19 10:24 BP 148/85 H 12/23/19 11:24 Pulse Ox 100 12/23/19 10:24 Body Mass Index 39.9 General: no acute distress HEENT: atraumatic Neck: normal to visual inspection CVS: S1, S2, RRR, 2-3+ edema Resp: CTA bilateral Chest: non tender GI: soft, non tender, non distended : no CVA tenderness Skin: diffuse rash, LLE erythema Extremities: edema Neuro: Oriented X3, grossly intact Psych: cooperative, Results Labs CBC and Chem 7: 12/23/19 10:43 12/23/19 10:43 Labs: Laboratory Results - last 24 hr 12/23/19 12/23/19 12/23/19 10:42 10:43 10:43 MCV 89.0 MCH 29.1 MCHC 32.7 RDW 12.6 Plt Count 261 MPV 10.0 Immature Gran % (Auto) 0.4 Neut % (Auto) 59.3 Lymph % (Auto) 25.6 [place] % (Auto) 7.9 Eos % (Auto) 6.4 H Baso % (Auto) 0.4 Lymph # (Auto) 1.9 [place] # (Auto) 0.6 Eos # (Auto) 0.5 H Baso # (Auto) 0.0 Abs Immat Gran (auto) 0.03 Absolute Neuts (auto) 4.4 Absolute Nucleated RBC 0.000 Nucleated RBC % (auto) 0.0 PT INR APTT Anion Gap 12 Estim Creat Clear Calc 31.2 Estimated GFR 19 Random Glucose 91 Lactic Acid 1.4 Calcium 8.8 Magnesium Total Bilirubin Direct Bilirubin AST ALT Alkaline Phosphatase Total Creatine Kinase 120 Total Protein Albumin COVID-19 (VIPIN) COVID-19 Clin Com 12/23/19 12/23/19 12/23/19 10:43 10:43 10:50 MCV MCH MCHC RDW Plt Count MPV Immature Gran % (Auto) Neut % (Auto) Lymph % (Auto) [place] % (Auto) Eos % (Auto) Baso % (Auto) Lymph # (Auto) [place] # (Auto) Eos # (Auto) Baso # (Auto) Abs Immat Gran (auto) Absolute Neuts (auto) Absolute Nucleated RBC Nucleated RBC % (auto) PT 12.5 INR 1.1 APTT 34.4 Anion Gap Estim Creat Clear Calc Estimated GFR Random Glucose Lactic Acid Calcium Magnesium 2.2 Total Bilirubin 0.4 Direct Bilirubin 0.2 AST 14 ALT 14 Alkaline Phosphatase 116 Total Creatine Kinase Total Protein 6.5 Albumin 3.6 COVID-19 (VIPIN) Negative COVID-19 Clin Com See Note Imaging Radiologist's Impressions: Impressions Venous Duplex 12/23/19 10:23 IMPRESSION: No DVT demonstrated in the left lower extremity. Assessment and Plan (1) Chronic renal insufficiency: Problem details: sees Dr. Wang -renal arteriosclerosis, distended tubles, TBM, IgA mild, adv chronic changes with 80% Interstitial Fibrosis Status: Acute (2) HTN (hypertension): Status: Acute (3) Cellulitis: Qualifiers: Laterality: left Site of cellulitis: extremity Site of cellulitis of extremity: lower extremity Qualified Code(s): L03.116 - Cellulitis of left lower limb Status: Acute (4) Drug rash: Status: Acute (5) Edema: Status: Acute 49-year-old female presented with diffuse rash and lower extremity edema and shortness of breath diffuse rash unclear if due to antibiotics as did start partially prior to starting antibiot ics, will hold Keflex and doxycycline, prednisone, Benadryl left lower extremity cellulitis likely mix of bacterial cellulitis and stasis dermatitis will treat with IV vancomycin lower extremity edema and shortness of breath suspect acute on chronic diastolic CHF IV Lasix check echo hold nifedipine as could be contributing to lower extremity edema hypertension continue carvedilol, doxazosin, Lasix nifedipine on hold for lower extremity edema CKD 4 due to hypertension, at baseline
--- NOTE | 2019-12-23 13:26 | PC.NURSE ---
RESTING IN NO DISTRESS. ITCHING AND PAIN BETTER. HAS BEEN ADMITTED. AWAITING BED ASSIGNMENT
--- NOTE | 2019-12-23 15:32 | PC.NURSE ---
MEDICATED PER ORDERS FOR REOCCURING ITCHING. AWAITING BE ASSIGNMENT
--- NOTE | 2019-12-23 17:00 | PC.NURSE ---
REPORT TO FLOOR. PT W/O COMPLAINTS AT THIS TIME.
--- NOTE | 2019-12-23 18:45 | PC.NURSE ---
PT FED DINNER, AWAITING TRANSPORT TO FLOOR.
[2019-12-23] MEDS: predniSONE 20 MG TABLET 40 MG PO (19:51)
[2019-12-23] MEDS: diphenhydrAMINE HCL 25 MG TABLET PO (19:58)
[2019-12-23] MEDS: 0.9 % Sodium Chloride Flush 3 ML SYRINGE IVFLUSH ×2 (19:59→20:55)
[2019-12-23] MEDS: Furosemide 40 MG/4 ML VIAL IVPUSH (20:54)
[2019-12-23] MEDS: Doxazosin Mesylate 2 MG TABLET 4 MG PO (20:54)
[2019-12-24 03:43] VITALS: BP 134/64; PULSE 89; RESP 19; TEMP 36.4; O2SAT 98
[2019-12-24] MEDS: oxyCODONE HCl Immed Release 5 MG TABLET PO ×2 (04:38→20:44)
[2019-12-24 05:15] LABS: MANUAL DIFF FLAG NO
[2019-12-24 05:18] LABS: Basophils Percent Auto 0.4 % (0-2); Eosinophils Percent Auto 0.1 % (0-4); Hematocrit 33.4 % (37-47); Hemoglobin 10.7 g/dl (12.0-16.0); Imm Gran Abs Auto 0.02 X10*3/uL (0.00-0.03); Imm Gran Pct Auto 0.3 % (0.0-0.4); Lymphocytes Absolute Auto 0.8 X10*3/uL (1.2-4.9); Lymphocytes Percent Auto 11.2 % (20-40); Mean Corpuscular Hemoglobin 28.5 pg (27.0-33.0); Mean Corpuscular Volume 89.1 fL (80-98); Mean Platelet Volume 10.3 fL (9.4-12.3); Monocytes Absolute Auto 0.1 X10*3/uL (0.1-1.2); Monocytes Percent Auto 1.2 % (2-11); Neutrophils Percent Auto 86.8 % (45-73); Platelet Count 253 X10*3/uL (160-400); Red Blood Count 3.75 X10*6/uL (4.20-5.50); Red Cell Distribution Width 12.5 % (11.0-16.0); White Blood Count 6.9 X10*3/uL (4.8-10.8)
[2019-12-24 05:41] LABS: Anion Gap 15 (12-20); Blood Urea Nitrogen 53 mg/dL (9-16); Calcium 8.6 mg/dL (8.4-10.2); Carbon Dioxide 23 mmol/L (22-29); Chloride 104 mmol/L (96-108); Creatinine Clr Calc Pharmacy 25.8; Estimated Glomerular Filt Rate 15; Glucose Random 135 mg/dL (60-115); Potassium 4.8 mmol/l (3.3-5.1); Sodium 137 mmol/L (135-145)
[2019-12-24 05:48] LABS: B Type Natriuretic Peptide 56 pg/mL (<100)
[2019-12-24 07:21] VITALS: BP 131/70; PULSE 83; RESP 17; TEMP 36.3; O2SAT 97
--- NOTE | 2019-12-24 09:42 | HO.PM.IMPN ---
Subjective Subjective Date of Service: 12/24/19 Interval History: improving Cardiovascular Cardiovascular: Reports no additional cardiovascular complaints Respiratory Respiratory: Reports no additional respiratory complaints Physical Exam Vital Signs: Vital Signs: Last Vital Signs Temp 97.4 F 12/24/19 07:21 Pulse 83 12/24/19 07:21 Resp 17 12/24/19 07:21 BP 131/70 12/24/19 07:21 Pulse Ox 97 12/24/19 07:21 Body Mass Index 39.9 General: AO X 3, no acute distress Resp: CTA bilateral CVS: S1,S2,RRR, edema slightly improved GI: soft, non tender, non distended Neuro: motor grossly intact Psych: appropriate affect rash improved Objective Data Current Medications Generic Name Dose Route Start Last Admin Trade Name Freq PRN Reason Stop Dose Admin Acetaminophen 650 mg 12/24/19 04:30 Acetaminophen 325 Mg Tablet PO Q6H PRN Pain and Fever Carvedilol 3.125 mg 12/24/19 09:00 Carvedilol 3.125 Mg Tablet PO BID GERARDO Diphenhydramine HCl 25 mg 12/23/19 19:02 12/23/19 19:58 Diphenhydramine Hcl 25 Mg Tablet PO 25 mg Q8H PRN Administration Allergic Reaction Docusate Sodium 100 mg 12/23/19 19:02 Docusate Sodium 100 Mg Capsule PO DAILY PRN Constipation Doxazosin Mesylate 4 mg 12/23/19 21:00 12/23/19 20:54 Doxazosin Mesylate 2 Mg Tablet PO 4 mg BEDTIME GERARDO Administration Protocol Ergocalciferol 1,250 mcg 12/26/19 09:00 Ergocalciferol (Vitamin D2) 1,250 Mcg Capsule PO PLEITEZ@0900 GERARDO Vancomycin HCl 1,000 mg/ 270 mls @ 270 mls/hr 12/24/19 09:00 Sodium Chloride IV Q24H GERARDO Oxycodone HCl 5 mg 12/24/19 04:30 12/24/19 04:38 Oxycodone Hcl Immed Release 5 Mg Tablet PO 5 mg Q6H PRN Administration Pain, Severe (Pain Scale 7-10) Prednisone 40 mg 12/23/19 19:02 12/23/19 19:51 Prednisone 20 Mg Tablet PO 40 mg DAILY GERARDO Administration Sodium Chloride 3 ml 12/23/19 19:02 12/23/19 20:55 0.9 % Sodium Chloride Flush 3 Ml Syringe IVFLUSH 3 ml QSHIFT GERARDO Administration Labs CBC & Chem 7: 12/24/19 04:35 12/24/19 04:35 Assessment and Plan (1) Chronic renal insufficiency: Problem details: sees Dr. Wang -renal arteriosclerosis, distended tubles, TBM, IgA mild, adv chronic changes with 80% Interstitial Fibrosis Status: Acute (2) HTN (hypertension): Status: Acute (3) Cellulitis: Status: Acute (4) Drug rash: Status: Acute (5) Edema: Status: Acute Assessment and Plan: 49-year-old female presented with diffuse rash and lower extremity edema and shortness of breath diffuse rash unclear if due to antibiotics as did start partially prior to starting antibiotics, holding Keflex and doxycycline, prednisone, Benadryl left lower extremity cellulitis likely mix of bacterial cellulitis and stasis dermatitis will treat with IV vancomycin, compression lower extremity edema and shortness of breath check echo creaitnine trending up, will d/c lasix hold nifedipine as could be contributing to lower extremity edema hypertension continue carvedilol, doxazosin, Lasix nifedipine on hold for lower extremity edema esequiel on CKD 4 hold lasix
[2019-12-24] MEDS: vancomycin HCL 1,000 MG in 0.9 % Sodium Chloride 250 ML 270 MG IV (10:16)
[2019-12-24] MEDS: carvediloL 3.125 MG TABLET PO ×2 (10:16→20:44)
[2019-12-24] MEDS: diphenhydrAMINE HCL 25 MG TABLET PO ×2 (10:16→18:42)
[2019-12-24] MEDS: predniSONE 20 MG TABLET 40 MG PO (10:16)
[2019-12-24] MEDS: 0.9 % Sodium Chloride Flush 3 ML SYRINGE IVFLUSH ×2 (10:19→15:58)
[2019-12-24 11:11] VITALS: BP 157/90; PULSE 87; RESP 16; TEMP 36.3; O2SAT 99
[2019-12-24 14:49] VITALS: BMI 39.9
--- NOTE | 2019-12-24 15:36 | MHC.CM.PN ---
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 SHE RPORTED SHE IS NEARING END STAGE RENAL DISEase and will probably have to start having hemodialysi before a kidney transplant , she also reported that on this ADMISSION HWR CREATINE INCREASED AND NOW HER LASIX IS ON HOLD AND BECAUSE OF THE LOWER LEG SWELLING AND SOME SHORTNESS OF BREATH THEY WILL BE DOING A CARDIAC ECHO.THE [facility]OSPITLIST . SHE HAS NO SERVICES IN THE HOME /NOR DME . SHE IS ACTIVE , INDEPENDENTIN ALL ADLS AND MOBILITY DISCHARGE PLAN HOME N SERVICES TRANSPORTATION HER PCP DR KALPESH PONCE SHE WILL CALL FOR POST DISCHARGE FOLLOW UP WE=LL DR VARGHESE RENAL PATIENT HAS A HEALTH CARE [PROXY , REQUESTED A COPY TO BE BROUGHT IN TO HAVE ON FILE
[2019-12-24 15:58] VITALS: BP 164/85; PULSE 85; RESP 18; TEMP 36; O2SAT 99
[2019-12-24] MEDS: Acetaminophen 325 MG TABLET 650 MG PO (16:05)
--- NOTE | 2019-12-24 19:02 | CA_ITS ---
Transthoracic Echocardiogram Patient (Last, First, Middle): Meliza Olguin, Gender: Female Date of : 1970 Age: 49 Procedure Date: 12/24/2019 Procedure Type: Transthoracic [place] [facility] [place]: 165.1 cm Weight: 108.86 kg BSA: 2.14 m2 Heart Rate: bpm BP: 136 / 64 mmHg Land Clearer: Referring MD: Oleksandr Miller MD Head Of Academic Technology: Jay Hendrickson MD Symptoms: chf Study Quality: Fair ECG Rhythm: Sinus Conclusions: - 1. Normal LV systolic function with mild LVH 2. Normal cardiac valvular Doppler 3. Normal RV systolic pressure 4. No pericardial effusion Findings Left Ventricle Normal left ventricular size and systolic function. There is mildly increased left ventricular wall thickness. The visually estimated ejection fraction is between 60-65%. Spectral Doppler is indicative of a normal filling pattern. Right Ventricle Normal right ventricular cavity size and systolic function. Atria The left atrium is likely dilated. There is lipomatous hypertrophy of the interatrial septum. There is no evidence of interatrial shunt. The right atrium is normal in size. Aortic Valve The aortic valve structure and function is likely normal. There is no aortic valve stenosis. There is no aortic valve regurgitation. Mitral Valve Normal mitral valve structure and function. There is trace mitral valve regurgitation. There is no mitral valve stenosis. Pulmonic Valve The pulmonic valve was not well visualized. Tricuspid Valve Likely normal tricuspid valve structure and function. There is trace tricuspid valve regurgitation. The right ventricular systolic pressure is normal. The right ventricular systolic pressure is 32 mmHg. Normal right atrial pressure. Great Vessels All visible segments of the aorta are normal in size. The pulmonary artery was not well visualized. Venous The inferior vena cava is normal in size and collapses greater than 50% with inspiration. Pericardium/Pleural There is no evidence of pericardial effusion. Prior Study Comparison No prior study available for comparison. Measurements 2D Linear Measurements IVSd: 1.34 0.6-0.9/0.6-1.0 cm LVIDd: 4.36 3.9-5.3/4.2-5.9 cm LVIDd Index: 2.04 2.4-3.2/2.2-3.1 cm/m2 LVIDs: 2.53 2.0-3.6 cm LVPWd: 1.28 0.7-1.1 cm Ao Root: 3.10 2.1-3.5 cm LA Diam: 4.40 2.7-3.8/3.0-4.0 cm LAIDs Index: 2.06 1.5-2.3 cm/m2 LV Mass: 267.47 67-162/88-224 g LV Mass Index: 124.99 43-95/49-115 g/m2 LVOT Diam: 2.00 3.0+(-)1.3 cm Mitral Valve MV Pk E: 1.05 MV PK A: 0.87 MV Decel Time: 201.00 E/A: 1.20 E'Lateral: 13.20 E'Medial: 6.77 E/E' Med: 15.50 E/E' Lat: 8.00 PHT: 59.00 MVA PHT: 3.73 Decel Clarke: 5.22 Aortic Valve AoV Pk Morales: 1.89 AoV Mn Morales: 1.17 AoV VTI: 0.40 AoV Pk Grad: 14.00 Aov Mn Grad: 7.00 SAI Cont.VTI: 2.36 LVOT LVOT Pk Morales: 1.38 LVOT Mn Morales: 0.96 LVOT VTI: 0.30 LVOT Pk Grad: 8.00 LVOT Mn Grad: 4.00 LVOT Diam: 2.00 LVOT Area: 3.14 Diastolic Function MV Pk E: 1.05 MV Pk A: 0.87 E/A: 1.20 E'Medial: 6.77 E/E' Med: 15.50 E' Laterial: 13.20 E/E' Lat: 8.00 Tricuspid Valve TR Pk Morales: 2.69 TR Pk Grad: 29.00 RA Press: 3.00 RVSP: 32.00 Great Vessels Aorta Ao Root-2D: 3.10 2.0-3.7 cm Ao Asc: 3.40 2.1-3.4 cm Pulmonary Valve PV Pk Morales: 1.14 Peak PV Grad: 5.00 Updated in Other Vendor System with Status of Final Jay Hendrickson MD electronically signed on 12/24/2019 3:41:48 PM with status of Final
[2019-12-24 20:00] VITALS: BP 164/77; PULSE 85; RESP 20; TEMP 36.5; O2SAT 98
[2019-12-24] MEDS: Doxazosin Mesylate 2 MG TABLET 4 MG PO (20:44)
[2019-12-24 23:28] VITALS: BP 161/89; PULSE 77; RESP 19; TEMP 36.3; O2SAT 98
[2019-12-25] VITALS (8 sets, daily range): BP systolic 116–166; BP diastolic 62–89; PULSE 76–98; RESP 18–20; TEMP 36–37.2; O2SAT 96–99
[2019-12-25] MEDS: 0.9 % Sodium Chloride Flush 3 ML SYRINGE IVFLUSH ×4 (00:20→21:43)
[2019-12-25 07:50] LABS: MANUAL DIFF FLAG NO
[2019-12-25 07:55] LABS: Basophils Percent Auto 0.2 % (0-2); Eosinophils Absolute Auto 0.1 X10*3/uL (0.0-0.4); Eosinophils Percent Auto 1.1 % (0-4); Hematocrit 31.3 % (37-47); Hemoglobin 10.3 g/dl (12.0-16.0); Imm Gran Abs Auto 0.09 X10*3/uL (0.00-0.03); Imm Gran Pct Auto 0.7 % (0.0-0.4); Lymphocytes Absolute Auto 2.2 X10*3/uL (1.2-4.9); Lymphocytes Percent Auto 18.5 % (20-40); Mean Corpuscular HGB Conc 32.9 g/dl (31.0-35.0); Mean Corpuscular Hemoglobin 29.3 pg (27.0-33.0); Mean Corpuscular Volume 88.9 fL (80-98); Mean Platelet Volume 10.4 fL (9.4-12.3); Monocytes Absolute Auto 0.9 X10*3/uL (0.1-1.2); Monocytes Percent Auto 7.6 % (2-11); Neutrophils Absolute Auto 8.7 X10*3/uL (2.0-8.3); Neutrophils Percent Auto 71.9 % (45-73); Platelet Count 239 X10*3/uL (160-400); Red Blood Count 3.52 X10*6/uL (4.20-5.50); Red Cell Distribution Width 12.7 % (11.0-16.0)
[2019-12-25 08:23] LABS: Anion Gap 15 (12-20); Blood Urea Nitrogen 65 mg/dL (9-16); Calcium 8.4 mg/dL (8.4-10.2); Carbon Dioxide 24 mmol/L (22-29); Chloride 104 mmol/L (96-108); Creatinine Clr Calc Pharmacy 25.1; Estimated Glomerular Filt Rate 15; Glucose Fasting 98 mg/dL (60-99); Potassium 4.5 mmol/l (3.3-5.1); Sodium 138 mmol/L (135-145)
[2019-12-25] MEDS: predniSONE 20 MG TABLET 40 MG PO (09:34)
[2019-12-25] MEDS: carvediloL 3.125 MG TABLET PO ×2 (09:34→21:41)
[2019-12-25] MEDS: diphenhydrAMINE HCL 25 MG TABLET PO ×2 (09:42→17:03)
[2019-12-25 09:48] LABS: Vancomycin Trough 11.2 mcg/mL (10.0-20.0)
--- NOTE | 2019-12-25 10:06 | P.PNIM_ITS ---
Subjective Subjective Date of Service: 12/25/19 Interval History: edema improved, rash much improved Cardiovascular Cardiovascular: Reports no additional cardiovascular complaints Respiratory Respiratory: Reports no additional respiratory complaints Physical Exam Vital Signs: Vital Signs: Last Vital Signs Temp 97.0 F 12/25/19 07:52 Pulse 76 12/25/19 07:52 Resp 18 12/25/19 07:52 BP 158/89 H 12/25/19 07:52 Pulse Ox 99 12/25/19 07:52 Body Mass Index 39.9 General: AO X 3, no acute distress Resp: CTA bilateral CVS: S1,S2,RRR, edema much improved, LLE erythema improved, still warm and tender GI: soft, non tender, non distended Neuro: motor grossly intact Psych: appropriate affect rash almost resolved Objective Data Current Medications Generic Name Dose Route Start Last Admin Trade Name Freq PRN Reason Stop Dose Admin Acetaminophen 650 mg 12/24/19 04:30 12/24/19 16:05 Acetaminophen 325 Mg Tablet PO 650 mg Q6H PRN Administration Pain and Fever Carvedilol 3.125 mg 12/24/19 09:00 12/25/19 09:34 Carvedilol 3.125 Mg Tablet PO 3.125 mg BID GERARDO Administration Diphenhydramine HCl 25 mg 12/23/19 19:02 12/25/19 09:42 Diphenhydramine Hcl 25 Mg Tablet PO 25 mg Q8H PRN Administration Allergic Reaction Docusate Sodium 100 mg 12/23/19 19:02 Docusate Sodium 100 Mg Capsule PO DAILY PRN Constipation Doxazosin Mesylate 4 mg 12/23/19 21:00 12/24/19 20:44 Doxazosin Mesylate 2 Mg Tablet PO 4 mg BEDTIME GERARDO Administration Protocol Ergocalciferol 1,250 mcg 12/26/19 09:00 Ergocalciferol (Vitamin D2) 1,250 Mcg Capsule PO PLEITEZ@0900 GERARDO Vancomycin HCl 1,500 mg/ 300 mls @ 200 mls/hr 12/26/19 10:00 Sodium Chloride IV Q48H [facility] Oxycodone HCl 5 mg 12/24/19 04:30 12/24/19 20:44 Oxycodone Hcl Immed Release 5 Mg Tablet PO 5 mg Q6H PRN Administration Pain, Severe (Pain Scale 7-10) Prednisone 40 mg 12/23/19 19:02 12/25/19 09:34 Prednisone 20 Mg Tablet PO 40 mg DAILY GERARDO Administration Sodium Chloride 3 ml 12/23/19 19:02 12/25/19 09:34 0.9 % Sodium Chloride Flush 3 Ml Syringe IVFLUSH 3 ml QSHIFT GEARRDO Administration Labs CBC & Chem 7: 12/25/19 07:16 12/25/19 07:16 Microbiology Microbiology Results: Microbiology 12/23/19 10:44 Blood - Venous Blood Culture - Preliminary No growth after 24 hours. 12/23/19 10:42 Blood - Venous Blood Culture - Preliminary No growth after 24 hours. Assessment and Plan (1) Chronic renal insufficiency: Problem details: sees Dr. Wang -renal arteriosclerosis, distended tubles, TBM, IgA mild, adv chronic changes with 80% Interstitial Fibrosis Status: Acute (2) HTN (hypertension): Status: Acute (3) Cellulitis: Status: Acute (4) Drug rash: Status: Acute (5) Edema: Status: Acute Assessment and Plan: 49-year-old female presented with diffuse rash and lower extremity edema and shortness of breath diffuse rash unclear if due to antibiotics as did start partially prior to starting antibiotics, holding Keflex and doxycycline, prednisone, Benadryl, mostly resolved left lower extremity cellulitis likely mix of bacterial cellulitis and stasis dermatitis, improving continue IV vancomycin, compression lower extremity edema and shortness of breath echo with some diastolic dysfunction creaitnine trending up, lasix dsicontinued holding nifedipine as could be contributing to lower extremity edema hypertension continue carvedilol, doxazosin, bp now increasind as nifedipine stopped, will start on hydralazine esequiel on CKD 4 continues to trend up, vanc trough ok at 11, patient did not receive much diuresis, ?inflammatory in setting of rash/cellulitis, nephro eval, monitor
--- NOTE | 2019-12-25 12:50 | PM.CNNEP ---
History of Present Illness Reason for Consult Consult date: 12/25/19 Reason for consult: RACHELL Chief Complaint Chief complaint: LLE Cellulitis / Rash History of Present Illness Narrative: Ms. Meliza Perry is a 49-year-old female with past medical history of CKD stage IV (Cr BL 2.5-3.0mg/dL) due to hypertensive nephrosclerosis and mild IgA. She also has significant tubulo-interstitial fibrosis ~80% on biopsy 06/2018. She otherwise has a history of HTN, secondary hyperparathyroidism, hyperkalemia (on kayexalate), who [place] [facility] [place]LE [place]. She actually missed her scheduled colonoscopy appointment, which was required for ongoing transplant evaluation to come to the hospital. At any rate, she presented with a Cr near baseline Cr 2.7-2.9 representing a GFR near 20ml/min. She was diuresed once with lasix 40mg IV. Unfortunately her Cr then peaked at 3.3 representing a GFR of 15ml/min. She tells me with Abx support her leg has improved greatly. She denies dyspnea, orthopnea. Her RLE is grossly smaller than her left. U/S in the past showed no DVT on left. She doesnt feel like she needs her diuretics at the moment. She takes lasix at home once daily, but prescribed more so for hypertension. Review of Systems Review of Systems Yes all other systems are reviewed and are negative, unobtainable due to endotracheal tube, Unobtainable due to mental condition, Unobtainable due to mental status and Other Constitutional: Denies anorexia, Denies body ache(s), Denies chills and Denies fever(s) Eyes: Denies change in vision Denies dizziness and Reports dry mouth Cardiovascular: Denies Abdominal Distension, Denies chest pain, Denies syncope and Denies dyspnea Respiratory: Denies chest congestion, Denies cough, Denies dyspnea and Denies wheezing Gastrointestinal: Denies abdominal pain, Denies melena, Denies bloating, Denies hematochezia, Denies diarrhea and Denies vomiting Genitourinary: Denies hematuria, Denies flank pain and Denies urinary urgency Musculoskeletal: Denies back pain Skin/Breast: Reports rash (LLE) and Reports skin swelling (LLE) Denies dizziness and Denies syncope Allergic/Immunologic: Denies wheezing PMFSH Past Medical History Medical History Anemia Back pain Chronic renal insufficiency Depression GERD (gastroesophageal reflux disease) History of headache History of postoperative nausea HTN (hypertension) Lab test negative for COVID-19 virus Family History Pertinent family history: The patient's family history is positive for diabetes mellitus involving her father and mother, hypertension involving her mother, and cancer involving her mother. Her family history is negative for kidney disease. Her parents are both living. Surgical History Surgical History History of endometrial ablation Hx of hysterectomy Hx of tubal ligation Social History Social History Smoking Status: Former smoker Packs Per Day: 0.5 Cigarettes Per Day: 10.0 Years Smoked: 10+ Currently Displaying Signs/Symptoms of Drug Intoxication Withdrawal: No Advance Directives: No Advance Directives Information Provided: Yes Do you have thoughts of harming others: None Do you have a plan to hurt others: No Plan service: No Current occupational status: employed Meds Allergies Allergy/AdvReac Type Severity Reaction Status Date / Time No Known Allergies Allergy Mild N/A Verified 12/16/19 14:55 Home Medications Medication Instructions Recorded Confirmed Type carvedilol phosphate 10 mg PO DAILY 12/16/19 12/23/19 History docusate sodium [Colace] 100 mg PO DAILY PRN 12/16/19 12/23/19 History doxazosin 4 mg PO BEDTIME 12/16/19 12/23/19 History furosemide 20 mg PO Q2D 12/16/19 12/23/19 History meclizine 25 mg PO DAILY PRN 12/16/19 12/23/19 History nifedipine 30 mg PO DAILY 12/16/19 12/23/19 History Zantrex 1 tab PO TIDWM 12/23/19 12/23/19 History cephalexin [Keflex] 500 mg PO Q8H 12/23/19 12/23/19 History ergocalciferol (vitamin D2) 1,250 mcg PO PLEITEZ@0900 12/23/19 12/23/19 History simethicone 180 mg PO QIDWMHS PRN 12/23/19 12/23/19 History sodium zirconium cyclosilicate 10 g PO MOWEFR@0900 12/23/19 12/23/19 History [Lokelma] Physical Exam Vital Signs: Last Vital Signs Temp 96.8 F 12/25/19 11:46 Pulse 76 12/25/19 11:46 Resp 18 12/25/19 11:46 BP 157/89 H 12/25/19 11:46 Pulse Ox 99 12/25/19 11:46 Body Mass Index 39.9 Const General: cooperative HENMT Mouth: Normal oral and palatal mucosa present Chest Chest palpation & inspection: normal inspection of the chest Resp Effort & Inspection: normal respiratory effort, normal respiratory pattern, no audible wheezes, no cough and not labored Auscultation: clear to auscultation bilaterally and no crackles Cardio Heart sounds: S1 normal heart sound present and S2 normal heart sound present GI Auscultation: normal bowel sounds Extrem Other: LLE with resolved erythema. 2+ edema of the LLE. Trace RLE edema Results Lab Results Result Diagrams: 12/25/19 07:16 12/25/19 07:16 Lab results: Chemistry 12/23/19 12/24/19 12/25/19 10:43 04:35 07:16 Sodium 139 137 138 Potassium 4.3 4.8 4.5 Carbon Dioxide 28 23 24 BUN 50 H 53 H 65 H Creatinine 2.70 H 3.27 H 3.36 H Calcium 8.8 8.6 8.4 Hematology 12/23/19 12/24/19 12/25/19 10:43 04:35 07:16 WBC 7.4 6.9 12.0 H Hgb 11.1 L 10.7 L 10.3 L Plt Count 261 253 239 Assessment and Plan (1) HTN (hypertension): Status: Acute Continue Coreg hold lasix c/w doxazosin c/w nifedipine (2) Chronic renal insufficiency: Qualifiers: Chronic kidney disease stage: stage 4 (severe) Qualified Code(s): N18.4 - Chronic kidney disease, stage 4 (severe) Problem details: sees Dr. Wang -renal arteriosclerosis, distended tubles, TBM, IgA mild, adv chronic changes with 80% Interstitial Fibrosis Now with acute kidney injury likely in the setting of sepsis and renal insufficiency. No signs of cardiorenal like physiology leading to nephrosarca. It's possible however she could have AIN, but this appears to be an acute Cr rise after recent Abx. Usually a persistent rise of Cr is seen 2 weeks post antibiotic. Status: Acute hold diuretics. The asymmetry to the edema reassures me this is not nephrogenic nor cardiogenic edema. encourage PO intake Doesnt necessarily need IVF She is asymptomatic without acid/base or electrolyte issues Can order a U/A and Urine lytes to work up volume status. Original U/A looks bland except for some baseline albuminuria On discharge do not place on DAVID/ARB, given her advanced GFR she will need close f/u with Dr Wang given her GFR and transplant evaluation. Renal diet with Low Potassium. (3) Cellulitis: Qualifiers: Laterality: left Site of cellulitis: extremity Site of cellulitis of extremity: lower extremity Qualified Code(s): L03.116 - Cellulitis of left lower limb Status: Acute Prednisone and renall dosed Abx as you are. Procedures Abscess I/D Date of Service: 12/25/19
[2019-12-25] MEDS: hydrALAZINE HCl 25 MG TABLET PO ×2 (14:31→21:39)
[2019-12-25 17:08] LABS: Glucose Urine UA NEG (NEG); Leukocyte Esterase Urine NEG (NEG); Nitrite Urine NEG (NEG); PH 6.5 (5.0-8.0); Specific Gravity - Urine 1.015 (1.005-1.025); Urine Blood 2+ (NEG); Urine Ketones NEG (NEG); Urine Protein 2+ MG/DL (NEG-TRACE)
[2019-12-25 17:13] LABS: Appearance Urine CLEAR; Color Urine YELLOW
[2019-12-25 17:20] LABS: Bacteria Urine TRACE /LPF; RBC Urine 0-2 /HPF (0); Squamous Epithelial Cell Urine TRACE /LPF; WBC Urine 0 /HPF (0-4)
[2019-12-25 17:45] LABS: Creatinine Urine 31.69 mg/dL; Potassium Urine Random 9.5 mmol/l
[2019-12-25] MEDS: Doxazosin Mesylate 2 MG TABLET 4 MG PO (21:40)
[2019-12-25] MEDS: oxyCODONE HCl Immed Release 5 MG TABLET PO (21:46)
[2019-12-26] VITALS: BP 133/75; PULSE 89; RESP 18; TEMP 37.1; O2SAT 97
[2019-12-26 04:00] VITALS: BP 116/62; PULSE 78; RESP 16; TEMP 36.4
[2019-12-26 08:00] VITALS: BP 134/78; PULSE 75; RESP 16; TEMP 36.4; O2SAT 98
[2019-12-26] MEDS: predniSONE 20 MG TABLET 40 MG PO (08:58)
[2019-12-26] MEDS: carvediloL 3.125 MG TABLET PO (08:59)
[2019-12-26] MEDS: hydrALAZINE HCl 25 MG TABLET PO (08:59)
[2019-12-26] MEDS: 0.9 % Sodium Chloride Flush 3 ML SYRINGE IVFLUSH (08:59)
[2019-12-26] MEDS: Ergocalciferol (Vitamin D2) 1,250 MCG CAPSULE 1250 MCG PO (08:59)
[2019-12-26 09:08] LABS: MANUAL DIFF FLAG NO
[2019-12-26 09:12] LABS: Basophils Absolute Auto 0.1 X10*3/uL (0.0-0.2); Basophils Percent Auto 0.5 % (0-2); Eosinophils Absolute Auto 0.2 X10*3/uL (0.0-0.4); Eosinophils Percent Auto 1.6 % (0-4); Hematocrit 34.1 % (37-47); Hemoglobin 10.9 g/dl (12.0-16.0); Imm Gran Abs Auto 0.09 X10*3/uL (0.00-0.03); Imm Gran Pct Auto 0.8 % (0.0-0.4); Lymphocytes Percent Auto 27.7 % (20-40); Mean Corpuscular Hemoglobin 28.7 pg (27.0-33.0); Mean Corpuscular Volume 89.7 fL (80-98); Mean Platelet Volume 10.3 fL (9.4-12.3); Monocytes Absolute Auto 0.8 X10*3/uL (0.1-1.2); Monocytes Percent Auto 7.6 % (2-11); Neutrophils Absolute Auto 6.8 X10*3/uL (2.0-8.3); Neutrophils Percent Auto 61.8 % (45-73); Platelet Count 252 X10*3/uL (160-400); Red Cell Distribution Width 12.6 % (11.0-16.0)
[2019-12-26 09:42] LABS: Anion Gap 11 (12-20); Blood Urea Nitrogen 60 mg/dL (9-16); Calcium 8.4 mg/dL (8.4-10.2); Carbon Dioxide 26 mmol/L (22-29); Chloride 108 mmol/L (96-108); Creatinine Clr Calc Pharmacy 26.6; Estimated Glomerular Filt Rate 16; Glucose Fasting 97 mg/dL (60-99); Potassium 4.6 mmol/l (3.3-5.1); Sodium 140 mmol/L (135-145)
[2019-12-26 09:47] LABS: Vancomycin Random 6.7 mcg/mL (15-20)
[2019-12-26] MEDS: diphenhydrAMINE HCL 25 MG TABLET PO (10:22)
--- NOTE | 2019-12-26 10:50 | PC.NURSE ---
random vanco was 6.[address] Miller notified via [employer].
--- NOTE | 2019-12-26 11:25 | HO.PM.IMPN ---
Subjective Subjective Date of Service: 12/26/19 Interval History: feels better, edema continues to improve Cardiovascular Cardiovascular: Reports no additional cardiovascular complaints Respiratory Respiratory: Reports no additional respiratory complaints Physical Exam Vital Signs: Vital Signs: Last Vital Signs Temp 97.5 F 12/26/19 08:00 Pulse 75 12/26/19 08:00 Resp 16 12/26/19 08:00 BP 134/78 12/26/19 08:00 Pulse Ox 98 12/26/19 08:00 Body Mass Index 39.9 General: AO X 3, no acute distress Resp: CTA bilateral CVS: S1,S2,RRR, edema much improved, LLE erythema improved, still warm and tender GI: soft, non tender, non distended Neuro: motor grossly intact Psych: appropriate affect rash almost resolved Objective Data Current Medications Generic Name Dose Route Start Last Admin Trade Name Freq PRN Reason Stop Dose Admin Acetaminophen 650 mg 12/24/19 04:30 12/24/19 16:05 Acetaminophen 325 Mg Tablet PO 650 mg Q6H PRN Administration Pain and Fever Carvedilol 3.125 mg 12/24/19 09:00 12/26/19 08:59 Carvedilol 3.125 Mg Tablet PO 3.125 mg BID GERARDO Administration Diphenhydramine HCl 25 mg 12/23/19 19:02 12/26/19 10:22 Diphenhydramine Hcl 25 Mg Tablet PO 25 mg Q8H PRN Administration Allergic Reaction Docusate Sodium 100 mg 12/23/19 19:02 Docusate Sodium 100 Mg Capsule PO DAILY PRN Constipation Doxazosin Mesylate 4 mg 12/23/19 21:00 12/25/19 21:40 Doxazosin Mesylate 2 Mg Tablet PO 4 mg BEDTIME GERARDO Administration Protocol Ergocalciferol 1,250 mcg 12/26/19 09:00 12/26/19 08:59 Ergocalciferol (Vitamin D2) 1,250 Mcg Capsule PO 1,250 mcg PLEITEZ@0900 GERARDO Administration Hydralazine HCl 25 mg 12/25/19 15:00 12/26/19 08:59 Hydralazine Hcl 25 Mg Tablet PO 25 mg TID GERARDO Administration Protocol Vancomycin HCl 1,500 mg/ 300 mls @ 200 mls/hr 12/26/19 10:00 12/26/19 10:20 Sodium Chloride IV 200 mls/hr Q48H GERARDO Administration Oxycodone HCl 5 mg 12/24/19 04:30 12/25/19 21:46 Oxycodone Hcl Immed Release 5 Mg Tablet PO 5 mg Q6H PRN Administration Pain, Severe (Pain Scale 7-10) Prednisone 40 mg 12/23/19 19:02 12/26/19 08:58 Prednisone 20 Mg Tablet PO 40 mg DAILY GERARDO Administration Sodium Chloride 3 ml 12/23/19 19:02 12/26/19 08:59 0.9 % Sodium Chloride Flush 3 Ml Syringe IVFLUSH 3 ml QSHIFT GERARDO Administration Labs CBC & Chem 7: 12/26/19 08:45 12/26/19 08:45 Microbiology Microbiology Results: Microbiology 12/23/19 10:44 Blood - Venous Blood Culture - Preliminary No growth after 48 hours. 12/23/19 10:42 Blood - Venous Blood Culture - Preliminary No growth after 48 hours. Assessment and Plan (1) Chronic renal insufficiency: Problem details: sees Dr. Wang -renal arteriosclerosis, distended tubles, TBM, IgA mild, adv chronic changes with 80% Interstitial Fibrosis Now with acute kidney injury likely in the setting of sepsis and renal insufficiency. No signs of cardiorenal like physiology leading to nephrosarca. It's possible however she could have AIN, but this appears to be an acute Cr rise after recent Abx. Usually a persistent rise of Cr is seen 2 weeks post antibiotic. Status: Acute (2) HTN (hypertension): Status: Acute (3) Cellulitis: Status: Acute (4) Drug rash: Status: Acute (5) Edema: Status: Acute Assessment and Plan: 49-year-old female presented with diffuse rash and lower extremity edema and shortness of breath diffuse rash unclear if due to antibiotics as did start partially prior to starting antibiotics, holding Keflex and doxycycline, prednisone, Benadryl, mostly resolved left lower extremity cellulitis likely mix of bacterial cellulitis and stasis dermatitis, improving continue IV vancomycin, compression lower extremity edema and shortness of breath echo with some diastolic dysfunction creatnine trending up, lasix dsicontinued, holding nifedipine as could be contributing to lower extremity edema hypertension continue carvedilol, doxazosin, bp now increasind as nifedipine stopped, started on hydralazine esequiel on CKD 4 now stable, vanc non toxic levels, patient did not receive much diuresis, nephro appreciated
[2019-12-26 11:27] VITALS: BP 157/90; PULSE 75; RESP 16; TEMP 36.4; O2SAT 99
--- NOTE | 2019-12-26 12:26 | PM.DS ---
DS: Providers Provider Date of admission: 12/23/19 12:59 Primary care physician: Unknown Physician Consults: 12/25/19 08:33 Consult to Nephrology Routine Consulting Provider: Jon Wang Reason for consultation: esequiel on ckd DS: Diagnosis Discharge Diagnosis (1) Chronic renal insufficiency: Status: Acute Problem details: sees Dr. Wang -renal arteriosclerosis, distended tubles, TBM, IgA mild, adv chronic changes with 80% Interstitial Fibrosis Now with acute kidney injury likely in the setting of sepsis and renal insufficiency. No signs of cardiorenal like physiology leading to nephrosarca. It's possible however she could have AIN, but this appears to be an acute Cr rise after recent Abx. Usually a persistent rise of Cr is seen 2 weeks post antibiotic. (2) HTN (hypertension): Status: Acute (3) Cellulitis: Status: Acute (4) Drug rash: Status: Acute (5) Edema: Status: Acute DS: Medications Discharge Medications Home Medications: Home Medications Medication Instructions Recorded Confirmed carvedilol phosphate 10 mg PO DAILY 12/16/19 12/23/19 docusate sodium [Colace] 100 mg PO DAILY PRN 12/16/19 12/23/19 doxazosin 4 mg PO BEDTIME 12/16/19 12/23/19 furosemide 20 mg PO Q2D 12/16/19 12/23/19 meclizine 25 mg PO DAILY PRN 12/16/19 12/23/19 Lokelma 10 g PO MOWEFR@0900 12/23/19 12/23/19 Zantrex 1 tab PO TIDWM 12/23/19 12/23/19 ergocalciferol (vitamin D2) 1,250 mcg PO PLEITEZ@0900 12/23/19 12/23/19 simethicone 180 mg PO QIDWMHS PRN 12/23/19 12/23/19 Previous Rx's Medication Instructions Recorded doxycycline monohydrate 100 mg PO BID 10 Days #20 cap 12/17/19 hydralazine 25 mg PO TID #90 tab 12/26/19 DS: Summary Hospital Course Hospital Course: patient was admitted for diffuse skin rash and left lower extremity cellulitis. She was given IV vancomycin, steroids, Benadryl. Her rash resolved. Her cellulitis significantly improved. Her renal function did worsen. she was seen by Nephrology who felt patient was close to baseline, she will follow-up as outpatient. Patient was noted to have bilateral lower extremity edema. She was given short course of IV Lasix which improved her edema. Her echocardiogram did show some diastolic dysfunction. Her nifedipine was discontinued as well as that could contribute to her lower extremity edema. This was replaced with hydralazine. Patient is now feeling better will be discharged home. Time Spent with Patient Time attestation: Total time spent providing and/or coordinating discharge services: Physical Exam Vital Signs: Vital Signs: Last Vital Signs Temp 97.5 F 12/26/19 11:27 Pulse 75 12/26/19 11:27 Resp 16 12/26/19 11:27 BP 157/90 H 12/26/19 11: Pulse Ox 99 12/26/19 11:27 Body Mass Index 39.9 General: AO X 3, no acute distress Resp: CTA bilateral CVS: S1,S2,RRR, 1+ edmea GI: soft, non tender, non distended Neuro: motor grossly intact Psych: appropriate affect DS: Data Data Completed and Pending Labs on day of discharge: 12/23/19 10:23 Famotidine/PF [Pepcid/PF] 20 mg IVPUSH ONCE ONE Morphine Sulfate 4 mg IVPUSH ONCE ONE diphenhydrAMINE HCL [Benadryl] 25 mg IVPUSH ONCE ONE ondansetron HCL [Zofran] 4 mg IVPUSH ONCE ONE US venous duplex LE LT Stat 12/23/19 10:26 Consult Rx Perform Med Rec 1 each MISCELLANE ONCE PRN levoFLOXacin/D5W [Levaquin] 500 mg in 100 ml IV ONCE 12/23/19 10:30 0.9 % Sodium Chloride [Ns] 500 ml IV 500 mls/hr 12/23/19 10:42 Lactic Acid Stat 12/23/19 10:43 Basic Metabolic Panel Stat Complete Blood Count Auto Diff Stat Creatine Kinase Total Stat Liver Panel Stat Magnesium Stat Partial Thromboplastin Time Stat Prothrombin Time INR Stat 12/23/19 10:50 COVID-19 ID NOW ([place]) Stat 12/23/19 12:52 Transfer Order Routine 12/23/19 15:27 diphenhydrAMINE HCL [Benadryl] 25 mg IVPUSH ONCE ONE 12/23/19 Lunch Low Sodium Diet 12/23/19 21:00 Furosemide [Lasix] 40 mg IVPUSH BID 12/24/19 04:35 B Type Natriuretic Peptide Routine Basic Metabolic Panel DAILY@0600 Complete Blood Count Auto Diff DAILY@0600 12/24/19 09:00 vancomycin HCL 1,000 mg 0.9 % Sodium Chloride [Ns] 250 ml IV Q24H 12/24/19 10:05 vancomycin HCL 1,000 mg .ROUTE .STK-MED ONE 12/24/19 19:02 CA echo transthoracic complete Routine 12/25/19 07:16 BMP [Basic Metabolic Panel Fasting] Routine Complete Blood Count Auto Diff Routine 12/25/19 08:52 Vancomycin Trough Routine 12/25/19 16:51 Creatinine Urine Stat Electrolytes Urine Stat 12/26/19 08:45 BMP [Basic Metabolic Panel Fasting] Routine Complete Blood Count Auto Diff Routine Vancomycin Random Routine Laboratory Last Values WBC 11.0 X10*3/uL (4.8-10.8) H 12/26/19 08:45 RBC 3.80 X10*6/uL (4.20-5.50) L 12/26/19 08:45 Hgb 10.9 g/dl (12.0-16.0) L 12/26/19 08:45 Hct 34.1 % (37-47) L 12/26/19 08:45 MCV 89.7 fL (80-98) 12/26/19 08:45 MCH 28.7 pg (27.0-33.0) 12/26/19 08:45 MCHC 32.0 g/dl (31.0-35.0) 12/26/19 08:45 RDW 12.6 % (11.0-16.0) 12/26/19 08:45 Plt Count 252 X10*3/uL (160-400) 12/26/19 08:45 MPV 10.3 fL (9.4-12.3) 12/26/19 08:45 Immature Gran % (Auto) 0.8 % (0.0-0.4) H 12/26/19 08:45 Neut % (Auto) 61.8 % (45-73) 12/26/19 08:45 Lymph % (Auto) 27.7 % (20-40) 12/26/19 08:45 [place] % (Auto) 7.6 % (2-11) 12/26/19 08:45 Eos % (Auto) 1.6 % (0-4) 12/26/19 08:45 Baso % (Auto) 0.5 % (0-2) 12/26/19 08:45 Lymph # (Auto) 3.0 X10*3/uL (1.2-4.9) 12/26/19 08:45 [place] # (Auto) 0.8 X10*3/uL (0.1-1.2) 12/26/19 08:45 Eos # (Auto) 0.2 X10*3/uL (0.0-0.4) 12/26/19 08:45 Baso # (Auto) 0.1 X10*3/uL (0.0-0.2) 12/26/19 08:45 Abs Immat Gran (auto) 0.09 X10*3/uL (0.00-0.03) H 12/26/19 08:45 Absolute Neuts (auto) 6.8 X10*3/uL (2.0-8.3) 12/26/19 08:45 Absolute Nucleated RBC 0.000 X10*3/uL (0.0-0.012) 12/26/19 08:45 Nucleated RBC % (auto) 0.0 /100WBC (0.0-0.2) 12/26/19 08:45 PT 12.5 SEC (10.8-13.0) 12/23/19 10:43 INR 1.1 (0.9-1.1) 12/23/19 10:43 APTT 34.4 SEC (24.1-38.0) 12/23/19 10:43 Sodium 140 mmol/L (135-145) 12/26/19 08:45 Potassium 4.6 mmol/l (3.3-5.1) 12/26/19 08:45 Chloride 108 mmol/L (96-108) 12/26/19 08:45 Carbon Dioxide 26 mmol/L (22-29) 12/26/19 08:45 Anion Gap 11 (12-20) L 12/26/19 08:45 BUN 60 mg/dL (9-16) H 12/26/19 08:45 Creatinine 3.17 mg/dL (0.5-1.4) H 12/26/19 08:45 Estim Creat Clear Calc 26.6 12/26/19 08:45 Estimated GFR 16 12/26/19 08:45 Random Glucose 135 mg/dL (60-115) H D 12/24/19 04:35 Fasting Glucose 97 mg/dL (60-99) 12/26/19 08:45 Lactic Acid 1.4 mmol/L (0.5-2.0) 12/23/19 10:42 Calcium 8.4 mg/dL (8.4-10.2) 12/26/19 08:45 Magnesium 2.2 mg/dL (1.6-2.6) 12/23/19 10:43 Total Bilirubin 0.4 mg/dL (0.0-1.0) 12/23/19 10:43 Direct Bilirubin 0.2 mg/dL (0.0-0.5) 12/23/19 10:43 AST 14 U/L (5-31) 12/23/19 10:43 ALT 14 U/L (0-31) 12/23/19 10:43 Alkaline Phosphatase 116 U/L (39-117) 12/23/19 10:43 Total Creatine Kinase 120 U/L (26-140) 12/23/19 10:43 B-Natriuretic Peptide 56 pg/mL (<100) 12/24/19 04:35 Total Protein 6.5 g/dL (6.5-8.0) 12/23/19 10:43 Albumin 3.6 g/dL (3.5-5.0) 12/23/19 10:43 Urine Color YELLOW 12/25/19 16:51 Urine Appearance CLEAR 12/25/19 16:51 Urine pH 6.5 (5.0-8.0) 12/25/19 16:51 Ur Specific Inlet 1.015 (1.005-1.025) 12/25/19 16:51 Urine Protein 2+ MG/DL (NEG-TRACE) H 12/25/19 16:51 Urine Glucose (UA) NEG MG/DL (NEG) 12/25/19 16:51 Urine Ketones NEG MG/DL (NEG) 12/25/19 16:51 Urine Blood 2+ (NEG) H 12/25/19 16:51 Urine Nitrite NEG (NEG) 12/25/19 16:51 Ur Leukocyte Esterase NEG (NEG) 12/25/19 16:51 Urine RBC 0-2 /HPF (0) 12/25/19 16:51 Urine WBC 0 /HPF (0-4) 12/25/19 16:51 Ur Squamous Epith Cells TRACE /LPF 12/25/19 16:51 Urine Bacteria TRACE /LPF 12/25/19 16:51 Ur Random Sodium 57.0 mmol/L 12/25/19 16:51 Ur Random Potassium 9.5 mmol/l 12/25/19 16:51 Ur Random Chloride 44.0 mmol/L 12/25/19 16:51 Urine Creatinine 31.69 mg/dL 12/25/19 16:51 Vancomycin Trough 11.2 mcg/mL (10.0-20.0) 12/25/19 08:52 Random Vancomycin 6.7 mcg/mL (15-20) L 12/26/19 08:45 COVID-19 (VIPIN) Negative (Negative) 12/23/19 10:50 COVID-19 Clin Com See Note 12/23/19 10:50 Preliminary micro results at discharge 12/23/19 10:44 Blood Culture - Preliminary Blood - Venous No growth after 48 hours. 12/23/19 10:42 Blood Culture - Preliminary Blood - Venous No growth after 48 hours. Discharge Plan Discharge Patient Disposition: Home, Self-Care Referrals: Varinder Galicia MD [Physician] - Physician,Unknown [Primary Care Provider] - Discharge Medications: New hydralazine 25 mg Tablet 25 mg PO TID Qty: 90 RF: 0 Continued meclizine 25 mg Tablet 25 mg PO DAILY PRN (Reason: Vertigo) RF: 0 docusate sodium [Colace] 100 mg Capsule 100 mg PO DAILY PRN (Reason: Constipation) RF: 0 doxazosin 4 mg tablet 4 mg PO BEDTIME RF: 0 furosemide 20 mg tablet 20 mg PO Q2D RF: 0 carvedilol phosphate 10 mg capsule, ER multiphase 24 hr 10 mg PO DAILY RF: 0 doxycycline monohydrate 100 mg capsule 100 mg PO BID 10 Days Qty: 20 RF: 0 simethicone 180 mg Capsule 180 mg PO QIDWMHS PRN (Reason: gas) RF: 0 ergocalciferol (vitamin D2) 1,250 mcg (50,000 unit) Capsule 1,250 mcg PO PLEITEZ@0900 RF: 0 Lokelma 10 gram Powder In Packet 10 g PO MOWEFR@0900 RF: 0 Zantrex 1 tab PO TIDWM RF: 0 Discontinued nifedipine 30 mg tablet extended release 24hr 30 mg PO DAILY RF: 0 cephalexin [Keflex] 500 mg capsule 500 mg PO Q8H RF: 0 Discharge Orders: Discharge Order (Routine); Ordered 12/26/19 Ordered By: Oleksandr Miller Activity on Discharge: As tolerated Visit Report Forms: Patient Portal Discharge page Care Plan Goals: recovery Health Concerns: CKD, cellultis Plan of Treatment: finish doxy course, stop keflex, benadryl as needed, topical steroids, stop nifedipine, use hydralazine instead, follow up with nephro
--- NOTE | 2019-12-26 12:52 | MHC.CM.PN ---
PATIENT IS DISCHARGED HOME - SELF CARE. RN AWARE OF PLAN.
--- NOTE | 2019-12-26 13:03 | PM.PNNEP ---
Subjective Subjective Interval history: No events Cr trending back to baseline. Physical Exam Vital Signs: Vital Signs: Last Vital Signs Temp 97.5 F 12/26/19 11:27 Pulse 75 12/26/19 11:27 Resp 16 12/26/19 11:27 BP 157/90 H 12/26/19 11:27 Pulse Ox 99 12/26/19 11:27 Body Mass Index 39.9 Const: General: cooperative HENMT: Mouth: Normal oral and palatal mucosa present Chest: Chest palpation & inspection: normal inspection of the chest Resp: Effort & Inspection: normal respiratory effort, normal respiratory pattern, no audible wheezes, no cough and not labored Auscultation: clear to auscultation bilaterally and no crackles Cardio: Heart sounds: S1 normal heart sound present and S2 normal heart sound present GI: Auscultation: normal bowel sounds Extrem: Other: LLE with resolved erythema. 2+ edema of the LLE. Trace RLE edema Assessment & Plan Assessment and plan (1) HTN (hypertension): Status: Acute Assessment and Plan: Continue Coreg hold lasix c/w doxazosin c/w nifedipine (2) Chronic renal insufficiency: Problem details: sees Dr. Wang -renal arteriosclerosis, distended tubles, TBM, IgA mild, adv chronic changes with 80% Interstitial Fibrosis Now with acute kidney injury likely in the setting of sepsis and diuresis. Cr trending back to baseline. Status: Acute Assessment and Plan: - OK for dischage from renal standpoint - will set up f/u with Dr. Wang. - On discharge do not place on DAVID/ARB, given her advanced GFR (3) Cellulitis: Status: Acute Assessment and Plan: Abx as you are Time Spent With Patient Time: Total time spent is greater than 50% in coordination of care (as documented) at patient's floor/unit and/or counseling patient: Procedures Abscess I/D Date of Service: 12/26/19
== END 2019-12-26 14:39 | disposition home or self-care (01) | DRG 383 ==
LOC: HO.ED 11:33 → HO.S3 15:40
PROVIDERS: Admitting Provider Internal Medicine; Emergency Provider Emergency Medicine; Visit Provider Internal Medicine
DX: L03.116 Cellulitis of left lower limb (principal); I13.0 Hypertensive heart and chronic kidney disease with heart failure and stage 1 through stage 4 chronic kidney disease, or unspecified chronic kidney disease; N18.4 Chronic kidney disease, stage 4 (severe); I50.33 Acute on chronic diastolic (congestive) heart failure; N17.9 Acute kidney failure, unspecified; F17.210 Nicotine dependence, cigarettes, uncomplicated; Z20.828 Contact with and (suspected) exposure to other viral communicable diseases; Z71.6 Tobacco abuse counseling; I87.2 Venous insufficiency (chronic) (peripheral); Z79.899 Other long term (current) drug therapy
CPT/HCPCS: 36415; 80048; 80076; 80202; 81001; 82436; 82550; 83605; 83735; 83880; 84133; 84300; 85025; 85610; 85730; 87040; 87635; 93306; 93971; 96361; 96365; 96375; 96376; 99232; 99283; 99285; J1200; J1940; J1956; J2270; J2405; J3370; Q0163

== ENCOUNTER 2020-02-25 09:56 | Day surgery (SDC) | payer OTHER, SELFPAY ==
[2020-02-21 14:48] VITALS: BMI 23.6
--- NOTE | 2020-02-24 09:16 | P.CONAN_ITS ---
Documented by User: Yovana Huerta 02/24/20 10:12 HPI - Anesthesia Eval Consult details Narrative: 49yo F for Colonoscopy Rescheduled from 12/2019. Was cancelled DOS due to drug rash. Had started taking abx for cellulitis. Sent to ED from [facility]. Admit with cellulitis/sepsis/ARF. Impro ving at time of D/C. To f/u with renal outpatient. Follows nephrology for CKD St 4 -renal arteriosclerosis, distended tubles, TBM, IgA mild, adv chronic changes with 80% Interstitial Fibrosis Colonoscopy part of w/u for transplant eval [facility] Past Medical History Medical History Anemia Anxiety Back pain Chronic renal insufficiency Depression GERD (gastroesophageal reflux disease) History of headache History of postoperative nausea HTN (hypertension) Lab test negative for COVID-19 virus Nephrosclerosis Obesity (BMI 30-39.9) Physical exam Renal interstitial fibrosis Family History Family History Father Diabetes Mother Asthma Hypertension Ovarian cancer Maternal Grandfather Myocardial infarction Paternal Grandmother Stroke Surgical History Surgical History History of endometrial ablation Hx of hysterectomy Hx of tubal ligation Social History Social History Smoking Status: Former smoker Years Smoked: 10+ Smoking Quit Date: 02/2019 Use of substances other than those prescribed or required for medical reasons: No Advance Directives: No Advance Directives Information Provided: No Advance Directives on File: No service: No Current occupational status: employed Meds Allergies Allergy/AdvReac Type Severity Reaction Status Date / Time No Known Allergies Allergy Mild N/A Verified 02/25/20 10:07 Home Medications Medication Instructions Recorded Confirmed Type carvedilol phosphate 10 mg PO DAILY 12/16/19 02/25/20 History docusate sodium [Colace] 100 mg PO DAILY PRN 12/16/19 02/25/20 History doxazosin 4 mg PO BEDTIME 12/16/19 02/25/20 History furosemide 20 mg PO Q2D 12/16/19 02/25/20 History meclizine 25 mg PO DAILY PRN 12/16/19 02/25/20 History Lokelma 10 g PO MOWEFR@0900 12/23/19 02/25/20 History Zantrex 1 tab PO TIDWM 12/23/19 02/25/20 History ergocalciferol (vitamin D2) 1,250 mcg PO PLEITEZ@0900 12/23/19 02/25/20 History simethicone 180 mg PO QIDWMHS PRN 12/23/19 02/25/20 History omeprazole magnesium [Prilosec OTC] 20 mg PO DAILY PRN 02/21/20 02/25/20 History Exam Exam Date and Time: February 24, 2020 0916 Height,Weight and Vital Signs: Height 5 ft 5 in Weight 64.41 kg Pertinent Lab Results Pertinent Lab Results: Laboratory Tests 12/26/19 12/26/19 08:45 08:45 WBC 11.0 H Hgb 10.9 L Hct 34.1 L Plt Count 252 Sodium 140 Potassium 4.6 Chloride 108 Carbon Dioxide 26 BUN 60 H Creatinine 3.17 H Narrative Narrative: ECHO 12/2019: Conclusions: - 1. Normal LV systolic function with mild LVH 2. Normal cardiac valvular Doppler 3. Normal RV systolic pressure 4. No pericardial effusion Assessment and Plan Assessment Anesthesia Assessment: Chart Reviewed Documented by User: Jade Hoyt 02/25/20 10:44 [facility] Past Medical History Medical History Anemia Anxiety Back pain Chronic renal insufficiency Depression GERD (gastroesophageal reflux disease) History of headache History of postoperative nausea HTN (hypertension) Lab test negative for COVID-19 virus Nephrosclerosis Obesity (BMI 30-39.9) Physical exam Renal interstitial fibrosis Family History Family History Father Diabetes Mother Asthma Hypertension Ovarian cancer Maternal Grandfather Myocardial infarction Paternal Grandmother Stroke Family history of problems with anesthesia: No Surgical History Surgical History History of endometrial ablation Hx of hysterectomy Hx of tubal ligation History of Problems with Anesthesia: No Social History Social History Smoking Status: Former smoker Years Smoked: 10+ Smoking Quit Date: 02/2019 Use of substances other than those prescribed or required for medical reasons: No Advance Directives: No Advance Directives Information Provided: No Advance Directives on File: No service: No Current occupational status: employed Meds Allergies Allergy/AdvReac Type Severity Reaction Status Date / Time No Known Allergies Allergy Mild N/A Verified 02/25/20 10:07 Home Medications Medication Instructions Recorded Confirmed Type carvedilol phosphate 10 mg PO DAILY 12/16/19 02/25/20 History docusate sodium [Colace] 100 mg PO DAILY PRN 12/16/19 02/25/20 History doxazosin 4 mg PO BEDTIME 12/16/19 02/25/20 History furosemide 20 mg PO Q2D 12/16/19 02/25/20 History meclizine 25 mg PO DAILY PRN 12/16/19 02/25/20 History Lokelma 10 g PO MOWEFR@0900 12/23/19 02/25/20 History Zantrex 1 tab PO TIDWM 12/23/19 02/25/20 History ergocalciferol (vitamin D2) 1,250 mcg PO PLEITEZ@0900 12/23/19 02/25/20 History simethicone 180 mg PO QIDWMHS PRN 12/23/19 02/25/20 History omeprazole magnesium [Prilosec OTC] 20 mg PO DAILY PRN 02/21/20 02/25/20 History Exam Height,Weight and Vital Signs: Vital Signs Temp Pulse Resp BP Pulse Ox 02/25/20 10:13 97.1 F 64 16 146/81 H 99 Airway Mallampati Class: II TM Dist: >3cm Neck ROM: Full Loose/Missing/Broken Teeth: Yes (missing some) Heart: RRR Lungs: CTAB Assessment and Plan Assessment Anesthesia Assessment: Anesthesia Plan Discussed and Smoking Cess. Discussed Final Anesthetic Review ASA Class: III Final Preanesthetic Review: No Changes in Pt Med Stat, Meds/Allgs Chart Reviewed, Consent Obtained/Reviewed and Anes Risks/Benef Reviewed Patient Risk: Intermediate Procedure Risk: Low Assessment/Block/Sedation in SS: Assess/Block/Sedation-SS Anesthetic Plan Anesthetic Plan: MAC: Disposition: Standard PACU
[2020-02-25 10:13] VITALS: BP 146/81; PULSE 64; RESP 16; TEMP 36.2; O2SAT 99
[2020-02-25] MEDS: 0.9 % Sodium Chloride 1,000 ML 50 ML IVCONT (10:34)
--- NOTE | 2020-02-25 11:11 | W.PM.OPN ---
Operative Note Operative Note Date of Service: 02/25/20 Narrative: Pre-op diagnosis: screening, chronic constipation Post-op diagnosis: other (Colon polyps, diverticulosis, hemorrhoids) Procedure: COLONOSCOPY TILL CECUM WITH SNARE POLYPECTOMY Consent: Indications for the procedure and potential complications of bleeding, perforation, reaction to medications and missed diagnosis were discussed with the patient and informed consent was obtained. Instrument: Olympus PCF H 190 L variable stiffness pediatric colonoscope Monitoring: Vital signs and clinical assessment, intermittent blood pressure monitoring, continuous EKG monitoring, Pulse oximetry and Carbon Dioxide monitoring were done throughout the procedure. Colon withdrawl time was 18 minutes. Procedure: The patient was placed in the left lateral decubitis position and pre-procedure medications were administered. After a digital rectal examination of the ano-rectum, the video colonoscope was inserted into the rectum and advanced through the colon to the cecum. The colonoscope was slowly withdrawn in a retrograde panoramic fashion and the colon mucosa was carefully examined including a retroflexed view of the rectum. Findings and interventions are described below. Procedure Difficulty: Without difficulty Findings: Terminal Ileum: Not evaluated Cecum: Normal Ascending Colon: A 10 mm sessile polyp overlying a fold removed with a hot snare Transverse Colon: Normal Descending Colon: Moderate diverticulosis Sigmoid Colon: A 12-15 mm sessile polyp removed with a hot snare and moderate diverticulosis Rectum: Normal Ano-rectum: Small internal hemorrhoids Colon preparation: Good Impression and Post Procedure Diagnosis: Colonoscopy Findings: Two medium sized polyps removed Moderate diverticulosis seen in the left colon Small hemorrhoids on retroflexed exam. Plan: Await pathology results Patient has an appointment on 03/24/20 in the GI Clinic with Yuliya Quinones NP . Repeat Colonoscopy interval based on path results - in 3 years if polyps are adenomatous and 10 years if polyps are hyperplastic. Above findings were reviewed with the patient and colon polyps and diverticulosis handouts were given in the discharge area. Surgeon: Savannah Archer MD Anesthesia: MAC (SANDY Diaz) Estimated blood loss (mL): 0 Pathology: other (A. AC polyp x 1, B. SC Polyp at 45 cms x 1) Condition: stable Disposition: PACU
--- NOTE | 2020-02-25 11:11 | MHC.SHP ---
Pre-Procedural Eval Section A The patient is an INPATIENT: No The History & Physical has been completed within 30 days and I have reviewed it.: No Section B Chief Complaint: Screening Relevant Family History (Specify if Yes): No Relevant Social History: None Present Medications: see Short Stay Collaborative assessment Medical History: Significant History (Htn, renal insufficiency) History of Previous Operations: Relevant previous surgery/procedure and date(s) (Hysterectomy) Allergies: Allergies Allergy/AdvReac Type Severity Reaction Status Date / Time No Known Allergies Allergy Mild N/A Verified 02/25/20 10:07 Review of Systems Sugical H&P ROS: Negative: Constitution, Cardiovascular and Respiratory and Yes, Specify: Gastrointestinal (chronic constipation) Exam Surgical H&P Exam: Normal: Heart, Normal: Lungs, Normal: Extremities and Normal: Abdomen Plan Diagnosis/Plan: Unchanged I have reviewed the history and physical and performed a pertinent physical examination on my patient. No changes have occurred unless specified.
[2020-02-25 11:45] VITALS: BP 100/63; PULSE 67; RESP 16; TEMP 36.1; O2SAT 98
[2020-02-25 12:00] VITALS: BP 122/80; PULSE 64; RESP 18; TEMP 36.1; O2SAT 98
--- NOTE | 2020-02-25 12:27 | HO.POSTANES ---
Post Anesthesia Evaluation Post Anesthesia Evaluation Vital Signs: Vital Signs Temp Pulse Resp BP Pulse Ox 02/25/20 12:00 97.0 F 64 18 122/80 98 02/25/20 11:45 97.0 F 67 16 100/63 98 02/25/20 10:13 97.1 F 64 16 146/81 H 99 Anesthesia: Monitored Mental Status: Awake Pain Control: Satisfactory Nausea/Vomiting: None Hydration: Adequate Anesthesia-Related Issues: No Anes. Related Issues
== END 2020-02-25 12:35 | disposition home or self-care (01) ==
PROVIDERS: Visit Provider Internal Medicine Gastroenterology
PROC: 0DJD8ZZ Inspection of Lower Intestinal Tract, Via Natural or Artificial Opening Endoscopic (ICD-10-PCS; CPT 45378; principal; 2020-02-25 11:10)
DX: Z12.11 Encounter for screening for malignant neoplasm of colon (principal); D12.2 Benign neoplasm of ascending colon; D12.5 Benign neoplasm of sigmoid colon; K57.30 Diverticulosis of large intestine without perforation or abscess without bleeding; K64.8 Other hemorrhoids; K59.00 Constipation, unspecified; I12.9 Hypertensive chronic kidney disease with stage 1 through stage 4 chronic kidney disease, or unspecified chronic kidney disease; N18.4 Chronic kidney disease, stage 4 (severe); Z87.891 Personal history of nicotine dependence; Z79.899 Other long term (current) drug therapy
CPT/HCPCS: 45385; 88305

== ENCOUNTER → 2020-03-24 08:31 | Outpatient (BNVA) | payer OTHER, SELFPAY | PROVIDERS: PCP Internal Medicine; Visit Provider Nurse Practitioner ==

== ENCOUNTER 2020-04-24 13:22 | Outpatient (REF) | payer OTHER, SELFPAY ==
--- NOTE | 2020-04-24 13:27 | ECG_ITS ---
Test Reason : CP Blood Pressure : / mmHG Vent. Rate : 071 BPM Atrial Rate : 071 BPM P-R Int : 124 ms QRS Dur : 082 ms QT Int : 412 ms P-R-T Axes : 039 022 041 degrees QTc Int : 447 ms Normal sinus rhythm Normal ECG When compared to the previous EKG of No significant changes seen Referred By: Karissa No Electronically Signed By:CHARLY ODELL MD
[2020-04-24 13:41] LABS: MANUAL DIFF FLAG NO
[2020-04-24 13:43] LABS: Basophils Absolute Auto 0.1 X10*3/uL (0.0-0.2); Basophils Percent Auto 0.7 % (0-2); Eosinophils Absolute Auto 0.2 X10*3/uL (0.0-0.4); Eosinophils Percent Auto 2.8 % (0-4); Hematocrit 34.7 % (37-47); Imm Gran Abs Auto 0.01 X10*3/uL (0.00-0.03); Imm Gran Pct Auto 0.1 % (0.0-0.4); Lymphocytes Absolute Auto 2.3 X10*3/uL (1.2-4.9); Lymphocytes Percent Auto 34.6 % (20-40); Mean Corpuscular HGB Conc 31.7 g/dl (31.0-35.0); Mean Corpuscular Hemoglobin 27.7 pg (27.0-33.0); Mean Corpuscular Volume 87.4 fL (80-98); Mean Platelet Volume 10.2 fL (9.4-12.3); Monocytes Absolute Auto 0.5 X10*3/uL (0.1-1.2); Monocytes Percent Auto 7.3 % (2-11); Neutrophils Absolute Auto 3.6 X10*3/uL (2.0-8.3); Neutrophils Percent Auto 54.5 % (45-73); Platelet Count 226 X10*3/uL (160-400); Red Blood Count 3.97 X10*6/uL (4.20-5.50); Red Cell Distribution Width 14.2 % (11.0-16.0); White Blood Count 6.7 X10*3/uL (4.8-10.8)
[2020-04-24 14:14] LABS: Troponin-I High Sensitivity 4.4 ng/L (<3.5-17.0)
[2020-04-24 15:34] LABS: Anion Gap 13 (12-20); Blood Urea Nitrogen 56 mg/dL (9-16); Calcium 8.6 mg/dL (8.4-10.2); Carbon Dioxide 21 mmol/L (22-29); Chloride 109 mmol/L (96-108); Estimated Glomerular Filt Rate 10; Glucose Fasting 83 mg/dL (60-99); Potassium 4.7 mmol/L (3.3-5.1); Sodium 138 mmol/L (135-145)
== END 2020-04-24 13:23 | disposition home or self-care (01) ==
LOC: HO.LAB 13:22
PROVIDERS: PCP Internal Medicine; Visit Provider Nurse Practitioner Family
DX: R07.9 Chest pain, unspecified (principal); L03.116 Cellulitis of left lower limb
CPT/HCPCS: 36415; 80048; 84484; 85025; 93005

== ENCOUNTER 2020-04-24 16:17 | Inpatient (IN) | payer OTHER, SELFPAY ==
[2020-04-24 16:19] VITALS: BP 149/74; PULSE 76; RESP 18; TEMP 37.1; O2SAT 100; BMI 39.9
--- NOTE | 2020-04-24 16:50 | ED.GENADULT ---
HPI - General Adult General Chief complaint: Recheck/Abnormal Lab/Rx Stated complaint: Abnormal labs Time Seen by Provider: 04/24/20 16:29 Source: patient Mode of arrival: ambulatory Limitations: no limitations History of Present Illness HPI narrative: Patient comes to the emergency room complaining of elevated creatinine. Patient has history of chronic kidney disease stage 4, interstitial fibrosis, hypertension nephrosclerosis, currently being evaluated for possible renal transplant. Patient states that she feels well, has no symptoms, this morning she was due for routine labs, patient's creatinine baseline is between approximately 2.5 to 3.2 range, today her creatinine was 4.53. She received a phone call from her primary care physician, she was asked to come to the emergency room for further evaluation. Mrs. Wilhelm is a patient of Dr. Wang from [facility]. Patient denies being sick lately, denies any pain, no vomiting or diarrhea. Related Data Home Medications Medication Instructions Recorded Confirmed doxazosin 4 mg PO BEDTIME 12/16/19 04/24/20 furosemide 20 mg PO Q2D 12/16/19 04/24/20 meclizine 25 mg PO DAILY PRN 12/16/19 04/24/20 Lokelma 10 g PO MOWEFR@0900 12/23/19 04/24/20 ergocalciferol (vitamin D2) 1,250 mcg PO PLEITEZ@0900 12/23/19 04/24/20 simethicone 180 mg PO QIDWMHS PRN 12/23/19 04/24/20 docusate sodium 100 mg capsule 100 mg PO DAILY 03/24/20 04/24/20 nifedipine 1 tab PO DAILY 04/24/20 04/24/20 Previous Rx's Medication Instructions Recorded hydralazine 25 mg PO TID #90 tab 12/26/19 sennosides 8.6 mg capsule 17.2 mg PO BEDTIME 30 Days #60 cap 03/24/20 escitalopram oxalate 10 mg tablet 10 mg PO DAILY #30 tab 04/05/20 melatonin 5 mg capsule 5 mg PO DAILY 30 Days #30 cap 04/17/20 calcitriol 0.25 mcg capsule 0.25 mcg PO 3XW 90 Days #39 cap 04/20/20 carvedilol phosphate 10 mg 10 mg PO DAILY 90 Days #90 cap 04/20/20 capsule,[id number] multiphase omeprazole magnesium 20 mg 20 mg PO DAILY PRN 90 Days #90 tab 04/20/20 tablet,delayed release ferrous sulfate 325 mg (65 mg 325 mg PO BID 30 Days #60 tab 04/24/20 iron) tablet Allergies Allergy/AdvReac Type Severity Reaction Status Date / Time nifedipine Allergy Intermediate hives, leg Verified 04/20/20 14:53 edam Review of Systems Review of Systems: Constitutional : No Weight loss, No Fever, No Chills, No Night Sweats, No Fatigue, No Malaise ENT/Mouth : No Hearing loss, No Ear Pain, No Nasal Congestion, No Sinus Pain, No Hoarseness, No sore throat, No Rhinorrhea, No Swallowing Difficulty Eyes: No Eye Pain, No Swelling, No Redness, No Foreign Body, No Discharge, No Vision Changes Cardiovascular : No Chest Pain, No SOB, No Dyspnea on Exertion, No Orthopnea, No Edema, No Palpitations Respiratory : No Cough, No Sputum, No Wheezing, No Smoke Exposure, No Dyspnea Gastrointestinal : No Nausea, No Vomiting, No Diarrhea, No Constipation, No abdominal Pain, No Hematochezia, No Melena Genitourinary : no irregular bleeding, No Dysuria, No Urinary Frequency, No Hematuria, No Urinary Incontinence, No Urgency, No Flank Pain, No Urinary Flow Changes, No Hesitancy Musculoskeletal : No joint pain, complaining of of chronic back pain Skin : No Skin Lesions, No rash Neuro : No Weakness, No Numbness, No Paresthesias, No Loss of Consciousness, No Dizziness, No Headache Psych : No Anxiety/Panic, No Depression, No SI/HI/AH/VH, No Social Issues, Heme/Lymph: No Bruising, No Bleeding,No Lymphadenopathy Endocrine : No Polyuria, No Polydipsia, No Temperature Intolerance [facility] Past Medical History Medical History Anemia Anxiety Anxiety and depression Back pain Chest pain Chronic renal insufficiency Depression GERD (gastroesophageal reflux disease) History of headache History of postoperative nausea HTN (hypertension) Lab test negative for COVID-19 virus Nephrosclerosis Obesity (BMI 30-39.9) Physical exam Renal interstitial fibrosis Surgical History History of endometrial ablation Hx of colonoscopy Hx of hysterectomy Hx of tubal ligation Family History Family History Father Diabetes Mother Asthma Hypertension Ovarian cancer Maternal Grandfather Myocardial infarction Paternal Grandmother Stroke Social History Social History Alcohol intake: current Alcohol intake frequency: does not drink Smoking Status: Former smoker Years Smoked: 10+ Use of substances other than those prescribed or required for medical reasons: No Advance Directives: No Advance Directives Information Provided: No service: No Current occupational status: employed Physical Exam Vital Signs: Vital Signs: Last Vital Signs Temp 98.7 F 04/24/20 16:19 Pulse 85 04/24/20 22:00 Resp 15 04/24/20 22:00 BP 173/84 H 04/24/20 22:00 Pulse Ox 96 04/24/20 22:00 Body Mass Index 39.9 Appearance: Alert. Oriented X3. No acute distress. Eyes: Pupils equal, round and reactive to light. ENT: Pharynx normal. Neck: Normal inspection. Neck supple. No lymph nodes noted. No crepitus CVS: Normal heart rate and rhythm. Pulses normal. Normal S1 and S2 Respiratory: No respiratory distress. Breath sounds normal. No Wheezing. No rales Abdomen: Soft and nontender. No rigidity. No distention. good BS x4 Skin: Skin warm and dry. Normal skin color. Normal skin turgor. Extremities: No lower extremity edema. No lower extremity edema. No Lacerations. No Rash Neuro: Oriented X 3. No motor deficit. No sensory deficit. Moving all extermities. No slurred speech. Course Course Course Narrative: Patient received 2 L of fluid on arrival, then the chemistry was recheck. The BUN and creatinine did not have any significant improvement. I discussed the patient with our hospitalist Dr. Larsen, patient being admitted for acute on chronic kidney disease Medical Decision Making Lab Data Result diagrams: 04/24/20 21:04 04/24/20 21:04 Labs: Lab Results 04/24/20 04/24/20 04/24/20 Range/Units 20:00 21:04 21:04 WBC 9.4 (4.8-10.8) X10*3/uL RBC 4.13 L (4.20-5.50) X10*6/uL Hgb 11.4 L (12.0-16.0) g/dl Hct 36.4 L (37-47) % MCV 88.1 (80-98) fL MCH 27.6 (27.0-33.0) pg MCHC 31.3 (31.0-35.0) g/dl RDW 14.2 (11.0-16.0) % Plt Count 234 (160-400) X10*3/uL MPV 10.5 (9.4-12.3) fL Immature Gran % (Auto) 0.2 (0.0-0.4) % Neut % (Auto) 89.9 H (45-73) % Lymph % (Auto) 8.7 L (20-40) % Hardee % (Auto) 0.9 L (2-11) % Eos % (Auto) 0.1 (0-4) % Baso % (Auto) 0.2 (0-2) % Lymph # (Auto) 0.8 L (1.2-4.9) X10*3/uL [place]ee # (Auto) 0.1 (0.1-1.2) X10*3/uL Eos # (Auto) 0.0 (0.0-0.4) X10*3/uL Baso # (Auto) 0.0 (0.0-0.2) X10*3/uL Abs Immat Gran (auto) 0.02 (0.00-0.03) X10*3/uL Absolute Neuts (auto) 8.4 H (2.0-8.3) X10*3/uL Absolute Nucleated RBC 0.000 (0.0-0.012) X10*3/uL Nucleated RBC % (auto) 0.0 (0.0-0.2) /100WBC Sodium 137 (135-145) mmol/L Potassium 5.0 (3.3-5.1) mmol/L Chloride 112 H (96-108) mmol/L Carbon Dioxide 16 L (22-29) mmol/L Anion Gap 14 (12-20) BUN 53 H (9-16) mg/dL Creatinine 4.11 H* (0.5-1.4) mg/dL Estim Creat Clear Calc 20.5 Estimated GFR 12 Random Glucose 99 (60-115) mg/dL Calcium 8.4 (8.4-10.2) mg/dL Urine Color STRAW Urine Appearance CLEAR Urine pH 6.0 (5.0-8.0) Ur Specific Patterson 1.010 (1.005-1.025) Urine Protein 1+ H (NEG-TRACE) MG/DL Urine Glucose (UA) NEG (NEG) MG/DL Urine Ketones NEG (NEG) MG/DL Urine Blood 2+ H (NEG) Urine Nitrite NEG (NEG) Ur Leukocyte Esterase NEG (NEG) Urine RBC 5-9 H (0) /HPF Urine WBC 0-2 (0-4) /HPF Ur Squamous Epith Cells 2+ /LPF Urine Bacteria TRACE /LPF Discharge Plan Discharge Clinical Impression: Acute kidney injury superimposed on chronic kidney disease Patient Disposition: Admitted As Inpatient
[2020-04-24] MEDS: 0.9 % Sodium Chloride 1,000 ML 999 ML IVCONT ×2 (17:05→17:52)
[2020-04-24] MEDS: 0.9 % Sodium Chloride 500 ML 999 ML IV (17:53)
[2020-04-24 18:55] VITALS: BP 148/91; PULSE 86; RESP 16; O2SAT 98
[2020-04-24 20:00] VITALS: BP 158/94; PULSE 72; RESP 15; O2SAT 96
[2020-04-24 20:20] LABS: Glucose Urine UA NEG (NEG); Leukocyte Esterase Urine NEG (NEG); Nitrite Urine NEG (NEG); Urine Blood 2+ (NEG); Urine Ketones NEG (NEG); Urine Protein 1+ MG/DL (NEG-TRACE)
[2020-04-24 20:22] LABS: Appearance Urine CLEAR; Color Urine STRAW
[2020-04-24 20:39] LABS: Bacteria Urine TRACE /LPF; Squamous Epithelial Cell Urine 2+ /LPF; WBC Urine 0-2 /HPF (0-4)
[2020-04-24 21:01] VITALS: BP 156/96; PULSE 75; RESP 16; O2SAT 97
[2020-04-24 21:09] LABS: MANUAL DIFF FLAG NO
[2020-04-24 21:11] LABS: Basophils Percent Auto 0.2 % (0-2); Eosinophils Percent Auto 0.1 % (0-4); Hematocrit 36.4 % (37-47); Hemoglobin 11.4 g/dl (12.0-16.0); Imm Gran Abs Auto 0.02 X10*3/uL (0.00-0.03); Imm Gran Pct Auto 0.2 % (0.0-0.4); Lymphocytes Absolute Auto 0.8 X10*3/uL (1.2-4.9); Lymphocytes Percent Auto 8.7 % (20-40); Mean Corpuscular HGB Conc 31.3 g/dl (31.0-35.0); Mean Corpuscular Hemoglobin 27.6 pg (27.0-33.0); Mean Corpuscular Volume 88.1 fL (80-98); Mean Platelet Volume 10.5 fL (9.4-12.3); Monocytes Absolute Auto 0.1 X10*3/uL (0.1-1.2); Monocytes Percent Auto 0.9 % (2-11); Neutrophils Absolute Auto 8.4 X10*3/uL (2.0-8.3); Neutrophils Percent Auto 89.9 % (45-73); Platelet Count 234 X10*3/uL (160-400); Red Blood Count 4.13 X10*6/uL (4.20-5.50); Red Cell Distribution Width 14.2 % (11.0-16.0); White Blood Count 9.4 X10*3/uL (4.8-10.8)
[2020-04-24 21:50] LABS: Anion Gap 14 (12-20); Blood Urea Nitrogen 53 mg/dL (9-16); Calcium 8.4 mg/dL (8.4-10.2); Carbon Dioxide 16 mmol/L (22-29); Chloride 112 mmol/L (96-108); Creatinine Clr Calc Pharmacy 20.5; Estimated Glomerular Filt Rate 12; Glucose Random 99 mg/dL (60-115); Sodium 137 mmol/L (135-145)
[2020-04-24 22:00] VITALS: BP 173/84; PULSE 85; RESP 15; O2SAT 96
--- NOTE | 2020-04-24 22:04 | P.HPHOSP_ITS ---
History of Present Illness Date of Service: 04/24/20 Chief Complaint: Abnormal labs 49-year-old female with a past medical history of anxiety, depression, CKD, nephrosclerosis, GERD, anemia presented to the hospital with a chief complaint of abnormal labs. Patient reports that she has routine blood work done and noted to have elevated creatinine subsequently sent to the hospital for further evaluation. Patient denies any chest pain palpitations lightheadedness dizziness. Denies any numbness tingling. Denies any fever chills cough. Denies any recent travel or sick contacts. Patient reports that her kidney function has been closely monitor as she is in the transplant list. Review of all other systems is negative except mentioned above ER course: Per ER team patient was asymptomatic, exam was benign, lab showed elevated creatinine to 4.5; baseline creatinine around 2.3. Given IV fluids. With no significant improvement. Admitted to the hospital for further management. [facility] Medical History Anemia Anxiety Anxiety and depression Back pain Chest pain Chronic renal insufficiency Depression GERD (gastroesophageal reflux disease) History of headache History of postoperative nausea HTN (hypertension) Lab test negative for COVID-19 virus Nephrosclerosis Obesity (BMI 30-39.9) Physical exam Renal interstitial fibrosis Family History Father Diabetes Mother Asthma Hypertension Ovarian cancer Maternal Grandfather Myocardial infarction Paternal Grandmother Stroke Surgical History History of endometrial ablation Hx of colonoscopy Hx of hysterectomy Hx of tubal ligation Social History Household Members: Spouse and Children Housing: Apartment Do you presently have visiting nurse or other home services: No Alcohol intake: current Alcohol intake frequency: does not drink Smoking Status: Former smoker Years Smoked: 10+ Smoked in Last 30 Days: No Use of substances other than those prescribed or required for medical reasons: No Have you been hit, kicked, punched, or otherwise hurt by someone within the past year? If so, by whom?: No Do you feel safe in your current relationship?: No Is there a partner from a previous relationship who is making you feel unsafe now?: No Are you made to feel afraid or neglected: No Advance Directives: No Advance Directives Information Provided: No Do you have thoughts of harming others: None Do you have a plan to hurt others: No Plan Recently lost weight without trying: No service: No Current occupational status: employed Meds Allergies Allergy/AdvReac Type Severity Reaction Status Date / Time nifedipine Allergy Intermediate hives, leg Verified 04/20/20 14:53 edam Active Medications: Current Medications Generic Name Dose Route Start Last Admin Trade Name Freq PRN Reason Stop Dose Admin Acetaminophen 650 mg 04/24/20 22:00 Acetaminophen 325 Mg Tablet PO Q6H PRN Pain, Mild (Pain Scale 1-3) Calcitriol 0.25 mcg 04/24/20 22:15 Calcitriol 0.25 Mcg Capsule PO 3XW [facility] Docusate Sodium 100 mg 04/25/20 09:00 Docusate Sodium 100 Mg Capsule PO DAILY [facility] Doxazosin Mesylate 4 mg 04/25/20 21:00 Doxazosin Mesylate 2 Mg Tablet PO BEDTIME [facility] Protocol Ergocalciferol 1,250 mcg 04/30/20 09:00 Ergocalciferol (Vitamin D2) 1,250 Mcg Capsule PO PLEITEZ@0900 [facility] Escitalopram Oxalate 10 mg 04/25/20 09:00 Escitalopram Oxalate 10 Mg Tablet PO DAILY [facility] Heparin Sodium (Porcine) 5,000 unit 04/24/20 22:00 Heparin Sodium,Porcine 5,000 Unit/Ml Vial SUBCUT Q12H [facility] Hydralazine HCl 25 mg 04/25/20 09:00 Hydralazine Hcl 25 Mg Tablet PO TID [facility] Protocol Dextrose/Sodium Chloride 1,000 mls @ 75 mls/hr 04/24/20 22:00 D51/2ns IVCONT .[id number] [facility] Meclizine HCl 25 mg 04/24/20 22:02 Meclizine Hcl 25 Mg Tablet PO DAILY PRN Vertigo Nifedipine 30 mg 04/25/20 09:00 Nifedipine Er 30 Mg Tab.Er.24 PO DAILY [facility] Protocol Non-Formulary Medication 10 mg 04/25/20 09:00 Carvedilol Phosphate PO DAILY [facility] Non-Formulary Medication 325 mg 04/25/20 09:00 Ferrous Sulfate PO BID [facility] Omeprazole 20 mg 04/24/20 22:02 Omeprazole 20 Mg Capsule.Dr PO DAILY PRN Gastric Reflux Sodium Chloride 3 ml 04/25/20 00:00 0.9 % Sodium Chloride Flush 3 Ml Syringe IVFLUSH QSHIFT [facility] Sodium Zirconium Cyclosilicate 10 gm 04/26/20 09:00 Sodium Zirconium Cyclosilicate 10 Gm Powd.Pack PO MOWEFR@0900 [facility] Home Medications Medication Instructions Recorded Confirmed Last Taken Type doxazosin 4 mg PO BEDTIME 12/16/19 04/24/20 12/22/19 History furosemide 20 mg PO Q2D 12/16/19 04/24/20 02/25/20 07:00 History meclizine 25 mg PO DAILY PRN 12/16/19 04/24/20 12/16/19 07:00 History Lokelma 10 g PO MOWEFR@0900 12/23/19 04/24/20 Unknown History ergocalciferol (vitamin D2) 1,250 mcg PO PLEITEZ@0900 12/23/19 04/24/20 Unknown History simethicone 180 mg PO QIDWMHS PRN 12/23/19 04/24/20 Unknown History docusate sodium 100 mg capsule 100 mg PO DAILY 03/24/20 04/24/20 Unknown History nifedipine 1 tab PO DAILY 04/24/20 04/24/20 Unknown History Physical Exam Vital Signs and Narrative: Vital Signs: Last Vital Signs Temp 98.7 F 04/24/20 16:19 Pulse 75 04/24/20 21:01 Resp 16 04/24/20 21:01 BP 156/96 H 04/24/20 21:01 Pulse Ox 97 04/24/20 21:01 Body Mass Index 39.9 Gen: Appears be in no acute distress HEENT: NCAT, Moist mucosa. Pulmonary: Vesicular breath sounds, fair air entry CVS: Normal S1-S2 Abdomen: BS+, Soft, Nontender Extremities: Warm well perfused Neuro: Alert and awake. Results Labs CBC and Chem 7: 04/24/20 21:04 04/24/20 21:04 Labs: Laboratory Results - last 24 hr 04/24/20 04/24/20 04/24/20 20:00 21:04 21:04 MCV 88.1 MCH 27.6 MCHC 31.3 RDW 14.2 Plt Count 234 MPV 10.5 Immature Gran % (Auto) 0.2 Neut % (Auto) 89.9 H Lymph % (Auto) 8.7 L [place] % (Auto) 0.9 L Eos % (Auto) 0.1 Baso % (Auto) 0.2 Lymph # (Auto) 0.8 L [place] # (Auto) 0.1 Eos # (Auto) 0.0 Baso # (Auto) 0.0 Abs Immat Gran (auto) 0.02 Absolute Neuts (auto) 8.4 H Absolute Nucleated RBC 0.000 Nucleated RBC % (auto) 0.0 Anion Gap 14 Estim Creat Clear Calc 20.5 Estimated GFR 12 Random Glucose 99 Calcium 8.4 Urine Color STRAW Urine Appearance CLEAR Urine pH 6.0 Ur Specific [place] 1.010 Urine Protein 1+ H Urine Glucose (UA) NEG Urine Ketones NEG Urine Blood 2+ H Urine Nitrite NEG Ur Leukocyte Esterase NEG Urine RBC 5-9 H Urine WBC 0-2 Ur Squamous Epith Cells 2+ Urine Bacteria TRACE Assessment and Plan (1) Acute kidney injury superimposed on chronic kidney disease: Status: Acute 49-year-old female with a past medical history of anxiety, depression, CKD, nephrosclerosis presented to the hospital with a chief complaint of abnormal labs. Noted to elevated creatinine. Denies any complaints. Admitted for further management. Acute on chronic kidney injury: Patient baseline creatinine is around 3.3. Patient's creatinine on presentation was 4.5-given IV fluids with improvement to 4.1. Continue IV fluids. Nephrology consult. Avoid nephrotoxins. Patient is on Lasix at home-which we will hold now. Hypertension: Continue home medications. For all other chronic conditions, home medications will be continued DVT prophylaxis: Subcu heparin Code status: Full code
[2020-04-24] MEDS: Heparin Sodium,Porcine 5,000 UNIT/ML VIAL 5000 UNIT SUBCUT (22:25)
[2020-04-24] MEDS: Dextrose 5 % and 0.45 % NaCl 1,000 ML 75 ML IVCONT (22:30)
[2020-04-24 23:20] LABS: COVID-19 Test Negative (Negative); IDNOW Serial# 9DD0AD1C
[2020-04-25] VITALS (12 sets, daily range): BP systolic 123–160; BP diastolic 63–99; PULSE 80–92; RESP 15–20; TEMP 35.8–37.3; O2SAT 96–99; BMI 39.9
[2020-04-25 07:06] LABS: MANUAL DIFF FLAG NO
[2020-04-25 07:11] LABS: Basophils Percent Auto 0.2 % (0-2); Hemoglobin 10.2 g/dl (12.0-16.0); Imm Gran Abs Auto 0.04 X10*3/uL (0.00-0.03); Imm Gran Pct Auto 0.4 % (0.0-0.4); Lymphocytes Absolute Auto 1.5 X10*3/uL (1.2-4.9); Lymphocytes Percent Auto 14.6 % (20-40); Mean Corpuscular HGB Conc 31.9 g/dl (31.0-35.0); Mean Corpuscular Hemoglobin 27.6 pg (27.0-33.0); Mean Corpuscular Volume 86.7 fL (80-98); Mean Platelet Volume 10.6 fL (9.4-12.3); Monocytes Absolute Auto 0.6 X10*3/uL (0.1-1.2); Neutrophils Absolute Auto 7.9 X10*3/uL (2.0-8.3); Neutrophils Percent Auto 78.8 % (45-73); Platelet Count 237 X10*3/uL (160-400); Red Blood Count 3.69 X10*6/uL (4.20-5.50); Red Cell Distribution Width 14.1 % (11.0-16.0)
[2020-04-25 07:41] LABS: Anion Gap 13 (12-20); Blood Urea Nitrogen 56 mg/dL (9-16); Calcium 7.9 mg/dL (8.4-10.2); Carbon Dioxide 18 mmol/L (22-29); Chloride 114 mmol/L (96-108); Creatinine Clr Calc Pharmacy 20.2; Estimated Glomerular Filt Rate 11; Glucose Random 111 mg/dL (60-115); Potassium 4.6 mmol/L (3.3-5.1); Sodium 140 mmol/L (135-145)
[2020-04-25] MEDS: Escitalopram Oxalate 10 MG TABLET PO (08:59)
[2020-04-25] MEDS: Docusate Sodium 100 MG CAPSULE PO (08:59)
[2020-04-25] MEDS: Heparin Sodium,Porcine 5,000 UNIT/ML VIAL 5000 UNIT SUBCUT ×2 (08:59→20:59)
[2020-04-25] MEDS: hydrALAZINE HCl 25 MG TABLET PO ×3 (08:59→20:57)
[2020-04-25] MEDS: 0.9 % Sodium Chloride Flush 3 ML SYRINGE IVFLUSH ×2 (09:00→15:14)
--- NOTE | 2020-04-25 10:31 | MHC.CM.PN ---
FEMALE 49 DX RACHELL/CKI She lives with her family. The Pt is independent with all functional mobility. A HCP has been documented and placed on the chart. 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 DP home no services family will transport.
[2020-04-25] MEDS: Dextrose 5 % and 0.45 % NaCl 1,000 ML 75 ML IVCONT (12:55)
--- NOTE | 2020-04-25 15:14 | HO.PM.IMPN ---
Subjective Subjective Date of Service: 04/25/20 Interval History: Patient seen and examined at bedside Patient reported chest pain yesterday sharp in nature no pain today Review of Systems Constitutional : No Weight loss, No Fever, No Chills, No Night Sweats, No Fatigue, No Malaise ENT/Mouth : No Hearing loss, No Ear Pain, No Nasal Congestion, No Sinus Pain, No Hoarseness, No sore throat, No Rhinorrhea, No Swallowing Difficulty Eyes: No Eye Pain, No Swelling, No Redness, No Foreign Body, No Discharge, No Vision Changes Cardiovascular : No Chest Pain, No SOB, No Dyspnea on Exertion, No Orthopnea, No Edema, No Palpitations Respiratory : No Cough, No Sputum, No Wheezing, No Smoke Exposure, No Dyspnea Gastrointestinal : No Nausea, No Vomiting, No Diarrhea, No Constipation, No abdominal Pain, No Hematochezia, No Melena Genitourinary : no irregular bleeding, No Dysuria, No Urinary Frequency, No Hematuria, No Urinary Incontinence, No Urgency, No Flank Pain, No Urinary Flow Changes, No Hesitancy Musculoskeletal : No joint pain, complaining of of chronic back pain Skin : No Skin Lesions, No rash Neuro : No Weakness, No Numbness, No Paresthesias, No Loss of Consciousness, No Dizziness, No Headache Psych : No Anxiety/Panic, No Depression, No SI/HI/AH/VH, No Social Issues, Heme/Lymph: No Bruising, No Bleeding,No Lymphadenopathy Endocrine : No Polyuria, No Polydipsia, No Temperature Intolerance Physical Exam Vital Signs: Vital Signs: Last Vital Signs Temp 97.4 F 04/25/20 15:06 Pulse 92 04/25/20 15:06 Resp 18 04/25/20 15:06 BP 143/74 H 04/25/20 15:06 Pulse Ox 99 04/25/20 15:06 Body Mass Index 39.9 Const: General: no acute distress Orientation/consciousness: patient oriented x3 Chest: Chest palpation & inspection: normal inspection of the chest Resp: Effort & Inspection: normal respiratory effort Cardio: Jugular venous distension: no JVD GI: Inspection: Yes normal to inspection Neuro: General: patient oriented x3 Objective Data Current Medications Generic Name Dose Route Start Last Admin Trade Name Freq PRN Reason Stop Dose Admin Acetaminophen 650 mg 04/24/20 22:00 Acetaminophen 325 Mg Tablet PO Q6H PRN Pain, Mild (Pain Scale 1-3) Calcitriol 0.25 mcg 04/26/20 09:00 Calcitriol 0.25 Mcg Capsule PO MoWeFr@0900 [facility] Docusate Sodium 100 mg 04/25/20 09:00 04/25/20 08:59 Docusate Sodium 100 Mg Capsule PO 100 mg DAILY [facility] Administration Doxazosin Mesylate 4 mg 04/25/20 21:00 Doxazosin Mesylate 2 Mg Tablet PO BEDTIME [facility] Protocol Ergocalciferol 1,250 mcg 04/30/20 09:00 Ergocalciferol (Vitamin D2) 1,250 Mcg Capsule PO PLEITEZ@0900 [facility] Escitalopram Oxalate 10 mg 04/25/20 09:00 04/25/20 08:59 Escitalopram Oxalate 10 Mg Tablet PO 10 mg DAILY [facility] Administration Heparin Sodium (Porcine) 5,000 unit 04/24/20 22:00 04/25/20 08:59 Heparin Sodium,Porcine 5,000 Unit/Ml Vial SUBCUT 5,000 unit Q12H [facility] Administration Hydralazine HCl 25 mg 04/25/20 09:00 04/25/20 08:59 Hydralazine Hcl 25 Mg Tablet PO 25 mg TID [facility] Administration Protocol Dextrose/Sodium Chloride 1,000 mls @ 75 mls/hr 04/24/20 22:00 04/25/20 12:55 D51/2ns IVCONT 75 mls/hr .[id number] [facility] Administration Meclizine HCl 25 mg 04/24/20 22:02 Meclizine Hcl 25 Mg Tablet PO DAILY PRN Vertigo Pat Own Med ( 1 each 04/25/20 09:00 04/25/20 09:08 Carvedilol 10mg Er PO 1 each Cap) DAILY [facility] Administration Omeprazole 20 mg 04/24/20 22:02 Omeprazole 20 Mg Capsule.Dr PO DAILY PRN Gastric Reflux Pharmacy Consult 1 each 04/24/20 22:23 Consult Rx Perform Med Rec MISCELLANE ONCE PRN Consult order Sodium Chloride 3 ml 04/25/20 00:00 04/25/20 09:00 0.9 % Sodium Chloride Flush 3 Ml Syringe IVFLUSH 3 ml QSHIFT [facility] Administration Sodium Zirconium Cyclosilicate 10 gm 04/26/20 09:00 Sodium Zirconium Cyclosilicate 10 Gm Powd.Pack PO MOWEFR@0900 [facility] Labs CBC & Chem 7: 04/25/20 06:47 04/25/20 06:47 Assessment and Plan (1) Acute kidney injury superimposed on chronic kidney disease: Status: Acute Assessment and Plan: 49-year-old female with a past medical history of anxiety, depression, CKD, nephrosclerosis presented to the hospital with a chief complaint of abnormal labs. Noted to elevated creatinine. Denies any complaints. Admitted for further management. Acute on chronic kidney injury: Patient baseline creatinine is around 3.3. Repeat creatinine around 4 Nephrology consult Received IV fluids Monitor kidney function Avoid nephrotoxic Hypertension: Continue Coreg and hydralazine Chest pain likely musculoskeletal atypical No chest pain today High sensitivity troponin negative, EKG shows no acute change ACS less likely DVT prophylaxis: Subcu heparin
--- NOTE | 2020-04-25 18:55 | PM.CNNEP ---
History of Present Illness Reason for Consult Consult date: 04/25/20 Reason for consult: RACHELL on CKD Chief Complaint Chief complaint: RACHELL ON CKD History of Present Illness Narrative: Asked to see PT to eval RACHELL on CKD with SCr 4.2 wheras previous scr 2.9-3.2 range.She is well know =n to me and had a kidneybx in past wjich revealed HTN Nephrosclerosi and ques NSAID asoc injury. She is currently gettingeval to be placed on kidney transplant list. Her past medical history of anxiety, depression, CKD, nephrosclerosis, GERD, anemia She denies N/V. No uremic symptoms.AVoidsNSAIDs. No change in her voiding.No GH/dysuria Review of Systems Review of Systems Constitutional : No Weight loss, No Fever, No Chills, No Night Sweats, No Fatigue, No Malaise ENT/Mouth : No Hearing loss, No Ear Pain, No Nasal Congestion, No Sinus Pain, No Hoarseness, No sore throat, No Rhinorrhea, No Swallowing Difficulty Eyes: No Eye Pain, No Swelling, No Redness, No Foreign Body, No Discharge, No Vision Changes Cardiovascular : No Chest Pain, No SOB, No Dyspnea on Exertion, No Orthopnea, No Edema, No Palpitations Respiratory : No Cough, No Sputum, No Wheezing, No Smoke Exposure, No Dyspnea Gastrointestinal : No Nausea, No Vomiting, No Diarrhea, No Constipation, No abdominal Pain, No Hematochezia, No Melena Genitourinary : no irregular bleeding, No Dysuria, No Urinary Frequency, No Hematuria, No Urinary Incontinence, No Urgency, No Flank Pain, No Urinary Flow Changes, No Hesitancy Musculoskeletal : No joint pain, complaining of of chronic back pain Skin : No Skin Lesions, No rash Neuro : No Weakness, No Numbness, No Paresthesias, No Loss of Consciousness, No Dizziness, No Headache Psych : No Anxiety/Panic, No Depression, No SI/HI/AH/VH, No Social Issues, Heme/Lymph: No Bruising, No Bleeding,No Lymphadenopathy Endocrine : No Polyuria, No Polydipsia, No Temperature Intolerance [facility] Past Medical History Medical History Anemia Anxiety Anxiety and depression Back pain Chest pain Chronic renal insufficiency Depression GERD (gastroesophageal reflux disease) History of headache History of postoperative nausea HTN (hypertension) Lab test negative for COVID-19 virus Nephrosclerosis Obesity (BMI 30-39.9) Physical exam Renal interstitial fibrosis Family History Family History Father Diabetes Mother Asthma Hypertension Ovarian cancer Maternal Grandfather Myocardial infarction Paternal Grandmother Stroke Surgical History Surgical History History of endometrial ablation Hx of colonoscopy Hx of hysterectomy Hx of tubal ligation Social History Social History Household Members: Spouse and Children Housing: Apartment Alcohol intake: current Alcohol intake frequency: does not drink Smoking Status: Former smoker Years Smoked: 10+ service: No Current occupational status: employed Meds Allergies Allergy/AdvReac Type Severity Reaction Status Date / Time nifedipine Allergy Intermediate hives, leg Verified 04/20/20 14:53 edam Active Medications: Current Medications Generic Name Dose Route Start Last Admin Trade Name Freq PRN Reason Stop Dose Admin Acetaminophen 650 mg 04/24/20 22:00 Acetaminophen 325 Mg Tablet PO Q6H PRN Pain, Mild (Pain Scale 1-3) Calcitriol 0.25 mcg 04/26/20 09:00 Calcitriol 0.25 Mcg Capsule PO MoWeFr@0900 [facility] Docusate Sodium 100 mg 04/25/20 09:00 04/25/20 08:59 Docusate Sodium 100 Mg Capsule PO 100 mg DAILY [facility] Administration Doxazosin Mesylate 4 mg 04/25/20 21:00 Doxazosin Mesylate 2 Mg Tablet PO BEDTIME [facility] Protocol Ergocalciferol 1,250 mcg 04/30/20 09:00 Ergocalciferol (Vitamin D2) 1,250 Mcg Capsule PO PLEITEZ@0900 [facility] Escitalopram Oxalate 10 mg 04/25/20 09:00 04/25/20 08:59 Escitalopram Oxalate 10 Mg Tablet PO 10 mg DAILY [facility] Administration Heparin Sodium (Porcine) 5,000 unit 04/24/20 22:00 04/25/20 08:59 Heparin Sodium,Porcine 5,000 Unit/Ml Vial SUBCUT 5,000 unit Q12H [facility] Administration Hydralazine HCl 25 mg 04/25/20 09:00 04/25/20 15:15 Hydralazine Hcl 25 Mg Tablet PO 25 mg TID [facility] Administration Protocol Dextrose/Sodium Chloride 1,000 mls @ 75 mls/hr 04/24/20 22:00 04/25/20 12:55 D51/2ns IVCONT 75 mls/hr .[id number] [facility] Administration Meclizine HCl 25 mg 04/24/20 22:02 Meclizine Hcl 25 Mg Tablet PO DAILY PRN Vertigo Pat Own Med ( 1 each 04/25/20 09:00 04/25/20 09:08 Carvedilol 10mg Er PO 1 each Cap) DAILY [facility] Administration Omeprazole 20 mg 04/24/20 22:02 Omeprazole 20 Mg Capsule.Dr PO DAILY PRN Gastric Reflux Pharmacy Consult 1 each 04/24/20 22:23 Consult Rx Perform Med Rec MISCELLANE ONCE PRN Consult order Sodium Chloride 3 ml 04/25/20 00:00 04/25/20 15:14 0.9 % Sodium Chloride Flush 3 Ml Syringe IVFLUSH 3 ml QSHIFT [facility] Administration Sodium Zirconium Cyclosilicate 10 gm 04/26/20 09:00 Sodium Zirconium Cyclosilicate 10 Gm Powd.Pack PO MOWEFR@0900 [facility] Home Medications Medication Instructions Recorded Confirmed Last Taken Type doxazosin 4 mg PO BEDTIME 12/16/19 04/25/20 04/23/20 History furosemide 20 mg PO Q2D 12/16/19 04/25/20 04/23/20 History meclizine 25 mg PO BID PRN 12/16/19 04/25/20 12/16/19 07:00 History Lokelma 10 g PO MOWEFR@0900 12/23/19 04/25/20 04/21/20 History ergocalciferol (vitamin D2) 1,250 mcg PO PLEITEZ@0900 12/23/19 04/25/20 04/16/20 History docusate sodium 100 mg capsule 100 mg PO DAILY 03/24/20 04/25/20 Unknown History sennosides [senna] 17.2 mg PO BEDTIME 04/25/20 04/25/20 04/24/20 History Physical Exam Vital Signs: Last Vital Signs Temp 97.4 F 04/25/20 15:06 Pulse 92 04/25/20 15:15 Resp 18 04/25/20 15:06 BP 143/74 H 04/25/20 15:15 Pulse Ox 99 04/25/20 15:06 Body Mass Index 39.9 Const General: no acute distress Orientation/consciousness: patient oriented x3 Chest Chest palpation & inspection: normal inspection of the chest Resp Effort & Inspection: normal respiratory effort Cardio Jugular venous distension: no JVD GI Inspection: Yes normal to inspection Neuro General: patient oriented x3 Results Lab Results Result Diagrams: 04/25/20 06:47 04/25/20 06:47 Lab results: Chemistry 04/24/20 04/25/20 21:04 06:47 Sodium 137 140 Potassium 5.0 4.6 Carbon Dioxide 16 L 18 L BUN 53 H 56 H Creatinine 4.11 H* 4.17 H* Calcium 8.4 7.9 L Hematology 04/24/20 04/25/20 21:04 06:47 WBC 9.4 10.0 Hgb 11.4 L 10.2 L Plt Count 234 237 Urinalysis 04/24/20 20:00 Urine Color STRAW Urine Appearance CLEAR Urine pH 6.0 Ur Specific [place] 1.010 Urine Protein 1+ H Urine Glucose (UA) NEG Urine Ketones NEG Urine Blood 2+ H Urine Nitrite NEG Ur Leukocyte Esterase NEG Urine RBC 5-9 H Urine WBC 0-2 Ur Squamous Epith Cells 2+ Assessment and Plan (1) Acute kidney injury superimposed on chronic kidney disease: Status: Acute 1. RACHELL: inc rSCr may reflet prog advCKD as her SCr has been in the 2.9-3.3 range; a question of anew superimposed acute injury process seems less likely 2. CKD 4: based on prior w/u and bx c/w HTN nephroscleorsis and NSAD assoc kidney injury 3. HTN 4. MBD of CKD 5. Anemia REC: cont routine meds; avoid nsaids; repeat renal las; protect lue for future avf
[2020-04-25] MEDS: Doxazosin Mesylate 2 MG TABLET 4 MG PO (20:56)
[2020-04-26] MEDS: Dextrose 5 % and 0.45 % NaCl 1,000 ML 75 ML IVCONT (02:03)
[2020-04-26 03:12] VITALS: BP 95/64; PULSE 76; RESP 17; TEMP 37.1; O2SAT 97
[2020-04-26 08:00] VITALS: BP 136/74; PULSE 82; RESP 19; TEMP 36.8; O2SAT 99
[2020-04-26] MEDS: Docusate Sodium 100 MG CAPSULE PO (09:07)
[2020-04-26 09:08] VITALS: BP 136/74; PULSE 82
[2020-04-26] MEDS: Escitalopram Oxalate 10 MG TABLET PO (09:08)
[2020-04-26] MEDS: hydrALAZINE HCl 25 MG TABLET PO ×2 (09:08→15:31)
[2020-04-26] MEDS: Heparin Sodium,Porcine 5,000 UNIT/ML VIAL 5000 UNIT SUBCUT (09:10)
[2020-04-26] MEDS: calcitrioL 0.25 MCG CAPSULE PO (09:15)
[2020-04-26] MEDS: 0.9 % Sodium Chloride Flush 3 ML SYRINGE IVFLUSH (09:15)
[2020-04-26 10:14] LABS: Anion Gap 12 (12-20); Blood Urea Nitrogen 61 mg/dL (9-16); Calcium 8.2 mg/dL (8.4-10.2); Carbon Dioxide 19 mmol/L (22-29); Chloride 112 mmol/L (96-108); Creatinine Clr Calc Pharmacy 19.9; Estimated Glomerular Filt Rate 11; Glucose Random 97 mg/dL (60-115); Potassium 4.4 mmol/L (3.3-5.1); Sodium 139 mmol/L (135-145)
[2020-04-26 11:27] VITALS: BP 174/88; PULSE 79; RESP 18; TEMP 36.2; O2SAT 99
--- NOTE | 2020-04-26 13:55 | P.DS_ITS ---
DS: Providers Provider Date of Service: 04/27/20 Date of admission: 04/24/20 22:00 Primary care physician: Rozina Lang MD Consults: 04/24/20 22:00 Consult to Nephrology Routine Consulting Provider: Kennedy Pulliam Reason for consultation: Laron on CKD DS: Diagnosis Discharge Diagnosis (1) Acute kidney injury superimposed on chronic kidney disease: Status: Acute DS: Medications Discharge Medications Home Medications: Home Medications Medication Instructions Recorded Confirmed doxazosin 4 mg PO BEDTIME 12/16/19 04/25/20 furosemide 20 mg PO Q2D 12/16/19 04/25/20 meclizine 25 mg PO BID PRN 12/16/19 04/25/20 Lokelma 10 g PO MOWEFR@0900 12/23/19 04/25/20 ergocalciferol (vitamin D2) 1,250 mcg PO PLEITEZ@0900 12/23/19 04/25/20 docusate sodium 100 mg capsule 100 mg PO DAILY 03/24/20 04/25/20 sennosides [senna] 17.2 mg PO BEDTIME 04/25/20 04/25/20 Previous Rx's Medication Instructions Recorded hydralazine 25 mg PO TID #90 tab 12/26/19 escitalopram oxalate 10 mg tablet 10 mg PO DAILY #30 tab 04/05/20 melatonin 5 mg capsule 5 mg PO DAILY 30 Days #30 cap 04/17/20 calcitriol 0.25 mcg capsule 0.25 mcg PO 3XW 90 Days #39 cap 04/20/20 carvedilol phosphate 10 mg 10 mg PO DAILY 90 Days #90 cap 04/20/20 capsule,[id number] multiphase omeprazole magnesium 20 mg 20 mg PO DAILY PRN 90 Days #90 tab 04/20/20 tablet,delayed release DS: Summary Hospital Course Hospital Course: HPI 49-year-old female with a past medical history of anxiety, depression, CKD, nephrosclerosis, GERD, anemia presented to the hospital with a chief complaint of abnormal labs. Patient reports that she has routine blood work done and no parul to have elevated creatinine subsequently sent to the hospital for further evaluation. Patient denies any chest pain palpitations lightheadedness dizziness. Denies any numbness tingling. Denies any fever chills cough. Denies any recent travel or sick contacts. Patient reports that her kidney function has been closely monitor as she is in the transplant list. Review of all other systems is negative except mentioned above ER course: Per ER team patient was asymptomatic, exam was benign, lab showed elevated creatinine to 4.5; baseline creatinine around 2.3. Given IV fluids. With no significant improvement. Admitted to the hospital for further management. Hospital course 49 y o with known history of CKD admitted with acute on chronic kidney injury, creatinine was around 4.5 on admission patient was started on IV fluid and supportive management, nephrology was consulted, patient's creatinine remains stable around 4, nephrology cleared patient for discharge, patient was stable discharged patient will have repeat BMP next week and patient will follow up Dr. Wang as outpatient Time Spent with Patient Time attestation: Total time spent providing and/or coordinating discharge services: Discharge coordination time: Greater than 30 minutes Physical Exam Vital Signs: Vital Signs: Last Vital Signs Temp 97.2 F 04/26/20 11:27 Pulse 79 04/26/20 11:27 Resp 18 04/26/20 11:27 BP 174/88 H 04/26/20 11:27 Pulse Ox 99 04/26/20 11:27 Body Mass Index 39.9 DS: Data Data Completed and Pending Labs on day of discharge: Laboratory Results - last 24 hr 04/26/20 08:50 Sodium 139 Potassium 4.4 Chloride 112 H Carbon Dioxide 19 L Anion Gap 12 BUN 61 H Creatinine 4.24 H* Estim Creat Clear Calc 19.9 Estimated GFR 11 Random Glucose 97 Calcium 8.2 L Discharge Plan Discharge Anticipated Discharge Date/Time: 04/26/20 13:45 Patient Disposition: Home, Self-Care Referrals: Karissa No NP [Nurse Practitioner] - 1 Week (05/02/2020 11) Discharge Medications: Continued meclizine 25 mg Tablet 25 mg PO BID PRN (Reason: Vertigo) RF: 0 doxazosin 4 mg tablet 4 mg PO BEDTIME RF: 0 furosemide 20 mg tablet 20 mg PO Q2D RF: 0 ergocalciferol (vitamin D2) 1,250 mcg (50,000 unit) Capsule 1,250 mcg PO PLEITEZ@0900 RF: 0 Lokelma 10 gram Powder In Packet 10 g PO MOWEFR@0900 RF: 0 hydralazine 25 mg Tablet 25 mg PO TID Qty: 90 RF: 0 sennosides [senna] 8.6 mg tablet 17.2 mg PO BEDTIME RF: 0 calcitriol 0.25 mcg capsule 0.25 mcg PO 3XW 90 Days Qty: 39 RF: 3 carvedilol phosphate 10 mg capsule, ER multiphase 24 hr 10 mg PO DAILY 90 Days Qty: 90 RF: 3 omeprazole magnesium [Prilosec OTC] 20 mg tablet,delayed release (DR/EC) 20 mg PO DAILY PRN (Reason: Gastric Reflux) 90 Days Qty: 90 RF: 1 melatonin 5 mg capsule 5 mg PO DAILY 30 Days Qty: 30 RF: 0 docusate sodium [Colace] 100 mg capsule 100 mg PO DAILY RF: 0 No Action escitalopram oxalate 10 mg tablet 10 mg PO DAILY Qty: 30 RF: 0 Discharge Orders: Discharge Order (Routine); Ordered 04/26/20 Ordered By: Glenn Yoo Activity on Discharge: As tolerated Stand Alone Forms: Patient Portal Discharge page Other Ambulatory Orders: Basic Metabolic Panel (Routine) Timeframe: 20200428 Facility: [facility] - Location: Laboratory Ordered By: Glenn Yoo Care Plan Goals: prevent hospitalization Health Concerns: CKD Plan of Treatment: Follow-up nephrology Dr. Wang, BMP Discharge Date/Time: 04/26/20 16:58
--- NOTE | 2020-04-26 14:59 | MHC.CM.PN ---
DP Female dx RACHELL/CKI is dc to home with family. No home services ordered or reqiored. Transportation will be provided by the Pts Family.
[2020-04-26 15:20] VITALS: BP 169/70; PULSE 77; RESP 18; TEMP 36.2; O2SAT 98
[2020-04-26 15:31] VITALS: BP 169/70; PULSE 77
== END 2020-04-26 16:58 | disposition home or self-care (01) | DRG 469 ==
LOC: HO.ED 23:48 → HO.IMC 04-25 00:10
PROVIDERS: Admitting Provider Hospitalist; Emergency Provider Emergency Medicine; PCP Internal Medicine; Visit Provider Internal Medicine
DX: N17.9 Acute kidney failure, unspecified (principal); D63.1 Anemia in chronic kidney disease; F41.9 Anxiety disorder, unspecified; K21.9 Gastro-esophageal reflux disease without esophagitis; I12.9 Hypertensive chronic kidney disease with stage 1 through stage 4 chronic kidney disease, or unspecified chronic kidney disease; E66.9 Obesity, unspecified; Z68.39 Body mass index [BMI] 39.0-39.9, adult; N18.4 Chronic kidney disease, stage 4 (severe); N25.0 Renal osteodystrophy; Z20.822 Contact with and (suspected) exposure to COVID-19; Z79.899 Other long term (current) drug therapy
CPT/HCPCS: 36415; 80048; 81001; 85025; 87635; 96360; 96361; 99219; 99285

== ENCOUNTER 2020-05-01 15:18 | Outpatient (REF) | payer OTHER, SELFPAY ==
[2020-05-01 16:37] LABS: Alanine Aminotransferase 15 U/L (0-31); Albumin Level 3.6 g/dL (3.5-5.0); Alkaline Phosphatase 116 U/L (39-117); Anion Gap 15 (12-20); Aspartate Amino Transferase 14 U/L (5-31); Bilirubin Total 0.2 mg/dL (0.0-1.0); Blood Urea Nitrogen 60 mg/dL (9-16); Calcium 8.5 mg/dL (8.4-10.2); Carbon Dioxide 21 mmol/L (22-29); Chloride 109 mmol/L (96-108); Estimated Glomerular Filt Rate 13; Glucose Fasting 74 mg/dL (60-99); Potassium 4.6 mmol/L (3.3-5.1); Sodium 140 mmol/L (135-145); Total Protein 6.5 g/dL (6.5-8.0)
== END 2020-05-01 15:19 | disposition home or self-care (01) ==
LOC: HO.LAB 15:18
PROVIDERS: Absent Provider Nurse Practitioner Family; PCP Internal Medicine; Visit Provider Internal Medicine
DX: N18.9 Chronic kidney disease, unspecified (principal)
CPT/HCPCS: 36415; 80053

== ENCOUNTER → 2020-05-11 14:29 | Outpatient (BNVA) | payer OTHER, SELFPAY | PROVIDERS: PCP Internal Medicine; Visit Provider Internal Medicine Cardiovascular Disease ==

== ENCOUNTER → 2020-05-17 09:28 | Outpatient (REF) | payer OTHER, SELFPAY ==
--- NOTE | 2020-05-17 09:30 | CA_ITS ---
Transthoracic Echocardiogram Patient (Last, First, Middle): Meliza Olguin, Gender: Female Date of : 1970 Age: 49 Procedure Date: 05/17/2020 Procedure Type: Transthoracic Echocardiogram Location: OP Height: 165.1 cm Weight: 107.05 kg BSA: 2.12 m2 Heart Rate: bpm BP: 140 / 62 mmHg Beekeeper: ALLYSSA Referring MD: Jay Hendrickson MD Asphalt Spreader: Jay Hendrickson MD Symptoms: I20.9 - Angina pectoris, unspecified Study Quality: Fair ECG Rhythm: Sinus Conclusions: - 1. Normal LV systolic function with mild LVH with pseudonormal filling pattern 2. Normal cardiac valvular Doppler 3. Normal RV systolic pressure 4. No pericardial effusion Findings Left Ventricle Normal left ventricular size and systolic function. There is mildly increased left ventricular wall thickness. The visually estimated ejection fraction is between 60-65%. Spectral Doppler is indicative of a pseudonormal filling pattern. E/E prime ratio is between 8 and 15 consistent with indeterminate filling pressures. Wall Motion Rest Echo Findings The basal inferior segment is hypokinetic. All other scored wall segments showed normal motion. Right Ventricle Normal right ventricular cavity size and systolic function. Atria The left atrium is mildly dilated. There is no evidence of interatrial shunt. The right atrium is normal in size. Aortic Valve The aortic valve structure and function is likely normal. There is no aortic valve stenosis. There is no aortic valve regurgitation. Mitral Valve Normal mitral valve structure and function. There is trace mitral valve regurgitation. There is no mitral valve stenosis. Pulmonic Valve The pulmonic valve was not well visualized. Tricuspid Valve Likely normal tricuspid valve structure and function. There is mild tricuspid valve regurgitation. The right ventricular systolic pressure is normal. The right ventricular systolic pressure is 31 mmHg. Normal right atrial pressure. There is no evidence of pulmonary hypertension. Great Vessels All visible segments of the aorta are normal in size. The pulmonary artery was not well visualized. Venous The inferior vena cava is normal in size and collapses greater than 50% with inspiration. Pericardium/Pleural There is no evidence of pericardial effusion. Prior Study Comparison Changes noted compared to prior study dated: 12/24/2019. Basal inferior wall motion abnormality noted Measurements 2D Linear Measurements IVSd: 1.18 0.6-0.9/0.6-1.0 cm LVIDd: 4.75 3.9-5.3/4.2-5.9 cm LVIDd Index: 2.24 2.4-3.2/2.2-3.1 cm/m2 LVIDs: 3.37 2.0-3.6 cm LVPWd: 1.14 0.7-1.1 cm Ao Root: 3.10 2.1-3.5 cm LA Diam: 4.10 2.7-3.8/3.0-4.0 cm LAIDs Index: 1.93 1.5-2.3 cm/m2 LV Mass: 256.07 67-162/88-224 g LV Mass Index: 120.79 43-95/49-115 g/m2 LVOT Diam: 2.00 3.0+(-)1.3 cm 2D Systolic Function EF 4C: 61.40 >55% EF 2C: 61.10 >55% EF BiP: 61.10 >55% Mitral Valve MV Pk E: 1.06 MV PK A: 0.79 MV Decel Time: 211.00 E/A: 1.30 E'Lateral: 8.90 E'Medial: 6.77 E/E' Med: 15.70 E/E' Lat: 11.90 PHT: 62.00 MVA PHT: 3.55 Decel [place]: 5.03 Aortic Valve AoV Pk Morales: 1.80 AoV Mn Morales: 1.25 AoV VTI: 0.39 AoV Pk Grad: 13.00 Aov Mn Grad: 7.00 SAI Cont.VTI: 2.33 LVOT LVOT Pk Morales: 1.24 LVOT Mn Morales: 0.87 LVOT VTI: 0.29 LVOT Pk Grad: 6.00 LVOT Mn Grad: 3.00 LVOT Diam: 2.00 LVOT Area: 3.14 Diastolic Function MV Pk E: 1.06 MV Pk A: 0.79 E/A: 1.30 E'Medial: 6.77 E/E' Med: 15.70 E' Laterial: 8.90 E/E' Lat: 11.90 Tricuspid Valve TR Pk Morales: 2.64 TR Pk Grad: 28.00 RA Press: 3.00 RVSP: 31.00 Great Vessels Aorta Ao Root-2D: 3.10 2.0-3.7 cm Ao Asc: 3.20 2.1-3.4 cm Ao Arch: 2.90 Updated in Other Vendor System with Status of Final Jay Hendrickson MD electronically signed on 05/17/2020 4:57:41 PM with status of Final
== END ==
LOC: HO.CARD 09:28
PROVIDERS: Visit Provider Internal Medicine Cardiovascular Disease
DX: I20.9 Angina pectoris, unspecified (principal)
CPT/HCPCS: 93306; 99202

== ENCOUNTER → 2020-05-19 07:51 | Outpatient (REF) | payer OTHER, SELFPAY ==
--- NOTE | ~2020-05-19 | NM_ITS ---
Lexiscan Myocardial perfusion study Indication: Chest pain, assess for coronary disease and ischemia Technique: The patient was brought in for a Lexiscan perfusion study on 05/19/2020 and was injected 0.4 mg of Lexiscan intravenously. Within a minute of this injection 35 mCi of sestamibi was given intravenously. Images were obtained using the SPECT gamma camera interlaced with the gating device. Images were obtained in supine position. Resting perfusion study was performed on 05/22/2020. Patient was administered 35 mCi of sestamibi intravenously at rest. Images were then obtained in supine position. Total DLP 76mGy-cm. Images were processed with the software and compared side to side in short axis, horizontal long axis and vertical long axis views. Findings: Raw acquisition was reviewed. The stress perfusion study showed no significant perfusion abnormality. Both uncorrected as well as CT attenuation corrected images were reviewed. The gated study shows normal LV systolic function with calculated LVEF of 66%. LV cavity is normal in size. The gated study shows normal wall thickening and contraction of segments. Resting study shows no significant perfusion abnormality. Gating at rest reveals normal wall motion with ejection fraction at 64%. The findings are consistent with no reversible or fixed perfusion defects. NM/NM krishan perf SPECT rest & str Impression: 1. Myocardial perfusion imaging study shows normal myocardial perfusion. No evidence of any ischemia or infarction. 2. Gated LVEF is 66% during stress and 64% during rest. 3. Transient ischemic dilatation not present. EKG component of the test reported separately.
--- NOTE | 2020-05-19 07:54 | CA_ITS ---
Acquisition Time: 2020-05-19 08:21:16 Total Exercise Time: 00:02:00 Test Indications: Chest Pain Medications: CARVEDILOL ESCITALOPRAM HYDRALAZINE FUROSEMIDE MECLIZINE OMEPRAZOLE ISOSORBIDE Protocol: LEXISCAN Max HR: 114 BPM 66% of Pred: 172 BPM Max BP: 130/080 mmHG Max Work Load: 1.0 METS Pharmacological stress test using Lexiscan while sitting and kicking her feet. Pt tolerated well, denies any anginal sx. Sx of dizzines reversed with Aminophyline 75 mg IV. EKG without any arrhythmias, non-diagnostic for ischemia. Nuclear images to follow. Normotensive response to test. Test reviewed with Dr. Hendrickson. Referred By: Jay Hendrickson Overread By: Lili Weir NP
== END ==
LOC: HO.CARD 07:51
PROVIDERS: Visit Provider Internal Medicine Cardiovascular Disease
DX: I20.9 Angina pectoris, unspecified (principal)
CPT/HCPCS: 78452; 93017; A9500; J0280; J2785

== ENCOUNTER 2020-05-25 09:27 | Outpatient (REF) | payer OTHER, SELFPAY ==
[2020-05-25 11:55] LABS: Cholesterol 221 mg/dL; HDL Cholesterol 55 mg/dL; LDL Cholesterol Calculated 144 mg/dl; Triglycerides 112 mg/dL
== END 2020-05-25 09:28 | disposition home or self-care (01) ==
LOC: HO.LAB 09:27
PROVIDERS: PCP Internal Medicine; Visit Provider Nurse Practitioner Family
DX: R07.9 Chest pain, unspecified (principal); E66.9 Obesity, unspecified; E11.22 Type 2 diabetes mellitus with diabetic chronic kidney disease; I12.9 Hypertensive chronic kidney disease with stage 1 through stage 4 chronic kidney disease, or unspecified chronic kidney disease; N18.30 Chronic kidney disease, stage 3 unspecified; Z68.39 Body mass index [BMI] 39.0-39.9, adult; Z87.891 Personal history of nicotine dependence; Z20.822 Contact with and (suspected) exposure to COVID-19; Z88.8 Allergy status to other drugs, medicaments and biological substances; Z79.899 Other long term (current) drug therapy
CPT/HCPCS: 36415; 80061; 93005; 99212

== ENCOUNTER 2020-05-26 08:09 | Outpatient (REF) | payer OTHER, SELFPAY ==
[2020-05-26 09:40] LABS: MANUAL DIFF FLAG NO
[2020-05-26 09:57] LABS: Basophils Percent Auto 0.7 % (0-2); Eosinophils Absolute Auto 0.2 X10*3/uL (0.0-0.4); Eosinophils Percent Auto 3.4 % (0-4); Hematocrit 34.4 % (37-47); Hemoglobin 10.9 g/dl (12.0-16.0); Imm Gran Abs Auto 0.02 X10*3/uL (0.00-0.03); Imm Gran Pct Auto 0.3 % (0.0-0.4); Lymphocytes Absolute Auto 1.6 X10*3/uL (1.2-4.9); Lymphocytes Percent Auto 26.4 % (20-40); Mean Corpuscular HGB Conc 31.7 g/dl (31.0-35.0); Mean Corpuscular Hemoglobin 27.7 pg (27.0-33.0); Mean Corpuscular Volume 87.5 fL (80-98); Monocytes Absolute Auto 0.4 X10*3/uL (0.1-1.2); Monocytes Percent Auto 6.1 % (2-11); Neutrophils Absolute Auto 3.8 X10*3/uL (2.0-8.3); Neutrophils Percent Auto 63.1 % (45-73); Platelet Count 261 X10*3/uL (160-400); Red Blood Count 3.93 X10*6/uL (4.20-5.50); Red Cell Distribution Width 14.5 % (11.0-16.0)
[2020-05-26 10:00] LABS: Anion Gap 16 (12-20); Calcium 8.8 mg/dL (8.4-10.2); Carbon Dioxide 19 mmol/L (22-29); Chloride 110 mmol/L (96-108); Phosphorus 5.6 mg/dL (2.7-4.5); Sodium 140 mmol/L (135-145)
[2020-05-26 10:06] LABS: Blood Urea Nitrogen 63 mg/dL (9-16); Estimated Glomerular Filt Rate 9
[2020-05-26 10:10] LABS: Glucose Urine UA NEG (NEG); Leukocyte Esterase Urine NEG (NEG); Nitrite Urine NEG (NEG); PH 5.5 (5.0-8.0); Specific Gravity - Urine 1.025 (1.005-1.025); Urine Blood 2+ (NEG); Urine Ketones NEG (NEG); Urine Protein 2+ MG/DL (NEG-TRACE)
[2020-05-26 10:11] LABS: Appearance Urine CLEAR; Color Urine STRAW
[2020-05-26 10:18] LABS: Amorphous Sediment Urine 1+ /LPF; Bacteria Urine TRACE /LPF; Granular Casts Urine 0-2 /LPF; Squamous Epithelial Cell Urine 3+ /LPF; WBC Urine 0 /HPF (0-4)
[2020-05-26 10:19] LABS: Vitamin D 25-OH Total 11.1 ng/mL (>30)
[2020-05-26 10:44] LABS: Creatinine, mg/dL 44.49; Protein mg/dL 156 mg/dL
[2020-05-26 10:52] LABS: Creatinine, 24Hr Urine 0.8 G/Day (1.0-2.0); Protein 24 Hr Urine 2925 mg/Day (<150); Total Volume 24 Hour Urine 1875 mL
[2020-05-26 10:53] LABS: Creatinine (CrCl) 5.31 mg/dL (0.5-1.4); Creatinine Clearance 10.9 mL/min (85-125)
[2020-05-26 11:04] LABS: Microalbum/Creatinine Ratio Ur 2410.4 ug/mg cr
[2020-05-29 16:17] LABS: Calcium (PTHI) 8.9 mg/dL (8.6-10.2); PTHI 707 pg/mL (14-64)
[2020-06-08 08:11] LABS: BUN 64 mg/dL (7-25); BUN Clearance 1 mL/min (41-68); Urea Nitrogen, Urine 1 g/24 h (6-17)
== END 2020-05-26 08:10 | disposition home or self-care (01) ==
LOC: HO.LAB 08:09
PROVIDERS: PCP Internal Medicine; Visit Provider Internal Medicine Nephrology
DX: N18.5 Chronic kidney disease, stage 5 (principal)
CPT/HCPCS: 36415; 80051; 81001; 82040; 82043; 82306; 82310; 82565; 82575; 83735; 83970; 84100; 84156; 84520; 84545; 85025; 87086

== ENCOUNTER 2020-05-26 16:20 | Outpatient (REF) | payer OTHER, SELFPAY ==
--- NOTE | ~2020-05-26 | MM_ITS ---
EXAMINATION: MM SCREENING DIGITAL BREAST TOMOSYNTHESIS, BILATERAL CLINICAL INFORMATION: Screening. Asymptomatic. The lifetime risk of breast cancer based on the Tyrer-Cuzick Model is 7%. COMPARISON: Mammography: 06/28/2016, 03/01/2015, 02/20/2015 TECHNIQUE: Digital breast tomosynthesis is performed in both the craniocaudal and mediolateral oblique views along with computer-aided detection (CAD). Synthesized 2D images are generated from the tomosynthesis. FINDINGS: There are scattered areas of fibroglandular density (ACR BI-RADS breast composition Category b). The left breast is unremarkable. There is no mass or developing density. Neither breast shows abnormal calcifications. The bilateral axilla and skin contours are unremarkable. The right breast has a new macrolobulated nodule mid 9:00 position measuring 1.0 x 0.6 x 0.6 cm. Margins are ill-defined on MLO view. Patient will be recalled for additional imaging. MM/MM tomosynthesis screening BI IMPRESSION: 1. Right: New macrolobulated nodule with incompletely defined margins mid 9:00 right breast 1.0 x 0.6 x 0.6 cm. 2. Left: No mammographic evidence of malignancy. ASSESSMENT: BI-RADS 0: Incomplete - Need Additional Imaging Evaluation RECOMMENDATION: 1. Additional views of the right breast for margins (3-D spot CC, 3-D spot ML). 2. Targeted ultrasound right breast. 3. Radiology department staff will contact the patient for additional imaging. This patient's information was entered into a reminder system with a target due date for their next mammogram.
== END 2020-05-26 16:21 | disposition home or self-care (01) ==
LOC: HO.MAMMO 16:20
PROVIDERS: PCP Internal Medicine; Visit Provider Internal Medicine
DX: Z12.31 Encounter for screening mammogram for malignant neoplasm of breast (principal)
CPT/HCPCS: 77063; 77067

== ENCOUNTER 2020-06-02 14:46 | Outpatient (REF) | payer OTHER, SELFPAY | END 2020-06-02 14:47 | disposition home or self-care (01) | LOC: HO.LAB 14:46 | PROVIDERS: Visit Provider Internal Medicine | DX: Z20.822 Contact with and (suspected) exposure to COVID-19 (principal) | CPT/HCPCS: C9803; U0003; U0005 ==

== ENCOUNTER 2020-06-15 14:51 | Outpatient (REF) | payer OTHER, SELFPAY ==
--- NOTE | ~2020-06-15 | MM_ITS ---
EXAMINATION: MM DIAGNOSTIC DIGITAL BREAST TOMOSYNTHESIS, RIGHT US DIAGNOSTIC ULTRASOUND BREAST, RIGHT CLINICAL INFORMATION: Recall from screening for new macrolobulated nodule mid 9:00 position with ill-defined margins. COMPARISON: Mammography: 05/26/2020, 06/28/2016, 03/01/2015, 02/20/2015 TECHNIQUE: Digital breast tomosynthesis is performed. 2D images are generated from the tomosynthesis. The following views are obtained: 3-D spot CC, 3-D ML x2, 3-D spot MLO. Ultrasound right breast is targeted to the outer breast. Grayscale imaging and color Doppler are performed without and with harmonics. FINDINGS: There are scattered areas of fibroglandular density (ACR BI-RADS breast composition Category b). The additional views confirm macrolobulated nodule 8:00 to 9:00 position mid depth, approximately 1 cm in greatest dimension. Margins appears smooth. No spiculation. Ultrasound demonstrates a circumscribed oval complex cystic nodule 8:30 o'clock position 6 cm from nipple measuring 1.0 x 0.5 x 0.7 cm. There are branching internal septations. No increased or decreased through transmission of sound. There is color flow seen involving several of the septations, one at right angle to the cyst wall. Results are discussed with the patient at time of visit. The nodule may represent a papilloma. Ultrasound-guided core sampling is recommended for further assessment. MM/MM tomosynthesis added views R IMPRESSION: Complex oval cystic nodule mid outer right breast with branching internal septations and color flow, possibly papilloma. ASSESSMENT: BI-RADS 4: Suspicious (subcategory 4A: Low suspicion for malignancy) RECOMMENDATION: Ultrasound-guided core biopsy right breast. This patient's information was entered into a reminder system with a target due date for their next mammogram.
== END 2020-06-15 14:52 | disposition home or self-care (01) ==
LOC: HO.MAMMO 14:51
PROVIDERS: PCP Internal Medicine; Visit Provider Internal Medicine
DX: N63.15 Unspecified lump in the right breast, overlapping quadrants (principal)
CPT/HCPCS: 76642; 77061; 77065

== ENCOUNTER → 2020-06-19 11:14 | Outpatient (BNVA) | payer OTHER, SELFPAY | PROVIDERS: PCP Internal Medicine; Visit Provider Nurse Practitioner ==

== ENCOUNTER 2020-06-22 08:51 | Outpatient (REF) | payer OTHER, SELFPAY ==
--- NOTE | ~2020-06-22 | MM_ITS ---
EXAMINATION: ULTRASOUND GUIDED CORE BIOPSY BREAST, RIGHT POST PROCEDURE DIGITAL MAMMOGRAM, RIGHT CLINICAL INFORMATION: 1 cm macrolobulated cystic nodule with branching internal septations and some color flow. COMPARISON: Mammography 05/26/2020, 06/15/2020, targeted right breast ultrasound 06/15/2020. FINDINGS: Proper informed consent is obtained from the patient after discussion of the procedure, potential risks and complications, and alternatives. Patient was given an opportunity for questions. The patient appeared to understand. The patient consented to the procedure and signed the consent form. GUIDANCE: Ultrasound-guided; aseptic technique. LESION: Complex cystic nodule 8:30 o'clock position 1 cm size with branching internal septations and some color flow. Rule out papilloma. APPROACH: Lateral medial. ANESTHESIA: 9 mL 1% lidocaine. DERMATOTOMY: Single skin alicia dermatotomy performed. NEEDLE: 14-gauge Achieve core biopsy device with 13.5-gauge co-axial guide needle. CORES: 5. CLIP: HydroMARK; shape: open coil. POST PROCEDURE UNILATERAL DIGITAL MAMMOGRAM: The post biopsy mammogram is performed in separate room using separate digital mammography equipment from the biopsy procedure. CC and ML views are obtained. There are scattered areas of fibroglandular density (breast composition category: b). The clip marker is in position and corresponds to the vicinity of nodule on recent mammography. No gross hematoma. The patient tolerated the procedure well. No immediate complications. Home instructions reviewed with the patient. Final pathology results are pending. MM/MM diagnostic mammo unilat RT IMPRESSION: 1. Status post ultrasound-guided core biopsy right breast. 2. Clip placed: HydroMARK; shape: open coil. 3. Pathology pending. An addendum report will be issued.
== END 2020-06-22 08:52 | disposition home or self-care (01) ==
LOC: HO.MAMMO 08:51
PROVIDERS: Visit Provider Surgery
DX: R92.8 Other abnormal and inconclusive findings on diagnostic imaging of breast (principal); Z80.41 Family history of malignant neoplasm of ovary
CPT/HCPCS: 19083; 77065; 88305; 99202; A4648

== ENCOUNTER → 2020-06-29 13:19 | Outpatient (BNVA) | payer OTHER, SELFPAY | PROVIDERS: PCP Internal Medicine; Visit Provider Surgery ==

== ENCOUNTER 2020-09-12 10:27 | Outpatient (REF) | payer OTHER, SELFPAY ==
[2020-09-12 12:16] LABS: MANUAL DIFF FLAG NO
[2020-09-12 12:20] LABS: Basophils Absolute Auto 0.1 X10*3/uL (0.0-0.2); Basophils Percent Auto 0.9 % (0-2); Eosinophils Absolute Auto 0.2 X10*3/uL (0.0-0.4); Eosinophils Percent Auto 3.1 % (0-4); Hematocrit 34.8 % (37-47); Imm Gran Abs Auto 0.03 X10*3/uL (0.00-0.03); Imm Gran Pct Auto 0.4 % (0.0-0.4); Lymphocytes Absolute Auto 2.1 X10*3/uL (1.2-4.9); Lymphocytes Percent Auto 31.5 % (20-40); Mean Corpuscular HGB Conc 31.6 g/dl (31.0-35.0); Mean Corpuscular Hemoglobin 28.1 pg (27.0-33.0); Mean Platelet Volume 11.5 fL (9.4-12.3); Monocytes Absolute Auto 0.5 X10*3/uL (0.1-1.2); Monocytes Percent Auto 7.2 % (2-11); Neutrophils Absolute Auto 3.9 X10*3/uL (2.0-8.3); Neutrophils Percent Auto 56.9 % (45-73); Platelet Count 244 X10*3/uL (160-400); Red Blood Count 3.91 X10*6/uL (4.20-5.50); Red Cell Distribution Width 14.6 % (11.0-16.0); White Blood Count 6.8 X10*3/uL (4.8-10.8)
[2020-09-12 12:26] LABS: INTERNATIONAL NORM RATIO 0.9 (0.9-1.1); Prothrombin Time 10.2 SEC (9.9-13.0)
[2020-09-12 13:04] LABS: Glucose Urine UA NEG (NEG); Leukocyte Esterase Urine NEG (NEG); Nitrite Urine NEG (NEG); PH 5.5 (5.0-8.0); Urine Blood 1+ (NEG); Urine Ketones NEG (NEG); Urine Protein 2+ MG/DL (NEG-TRACE)
[2020-09-12 13:08] LABS: Appearance Urine CLEAR; Color Urine STRAW
[2020-09-12 13:10] LABS: Albumin Level 3.8 g/dL (3.5-5.0); Anion Gap 17 (12-20); Blood Urea Nitrogen 60 mg/dL (9-16); Carbon Dioxide 22 mmol/L (22-29); Chloride 108 mmol/L (96-108); Estimated Glomerular Filt Rate 7; Phosphorus 7.6 mg/dL (2.7-4.5); Potassium 4.6 mmol/L (3.3-5.1); Sodium 142 mmol/L (135-145)
[2020-09-12 13:15] LABS: Bacteria Urine 2+ /LPF; Squamous Epithelial Cell Urine 2+ /LPF; WBC Urine 0 /HPF (0-4)
[2020-09-12 13:49] LABS: Creatinine Urine 85.18 mg/dL; Protein/Creatinine Ratio, Ur 2.18 (<0.2); Total Protein Urine Random 186 mg/dL (<12)
[2020-09-12 14:08] LABS: Microalbum/Creatinine Ratio Ur 1374.7 ug/mg cr
[2020-09-13 04:54] LABS: HBc Num1 0.13 S/CO (0.00-0.79); HBsAGNum1 0.21 S/CO (0.00-0.99); Hepatitis B Core Antibody Nonreactive (Nonreactive); Hepatitis B Surface Antigen Negative (Negative); ~HepC Num1 0.21 S/CO (0.00-0.79); ~Hepatitis C Antibody Nonreactive (Nonreactive)
[2020-09-13 05:00] LABS: HBS Num1 7.92 mIU/mL (0-7.99); ~Hepatitis B Surface Antibody NONREACTIVE (Nonreactive)
[2020-09-15 11:41] LABS: Calcium (PTHI) 8.9 mg/dL (8.6-10.2); PTHI 848 pg/mL (14-64)
== END 2020-09-12 10:28 | disposition home or self-care (01) ==
LOC: HO.LAB 10:27
PROVIDERS: PCP Internal Medicine; Visit Provider Internal Medicine Nephrology
DX: Z01.84 Encounter for antibody response examination (principal); Z11.59 Encounter for screening for other viral diseases; I13.0 Hypertensive heart and chronic kidney disease with heart failure and stage 1 through stage 4 chronic kidney disease, or unspecified chronic kidney disease; N18.4 Chronic kidney disease, stage 4 (severe); I50.9 Heart failure, unspecified; N25.0 Renal osteodystrophy
CPT/HCPCS: 36415; 80051; 81001; 81003; 82040; 82043; 82306; 82310; 82565; 83735; 83970; 84100; 84156; 84520; 85025; 85610; 86704; 86706; 86803; 87086; 87340

== ENCOUNTER 2020-10-17 14:36 | Emergency (ER) | payer OTHER, SELFPAY ==
--- NOTE | ~2020-10-17 | XR_ITS ---
EXAMINATION: PORTABLE CHEST 1 VIEW CLINICAL INFORMATION: abd pain . COMPARISON: . TECHNIQUE: Portable frontal view of the chest was obtained. FINDINGS: The lungs are well expanded. No focal infiltrate, effusion, edema, or pneumothorax. Cardiac and mediastinal silhouettes are within normal limits for technique. No acute bony abnormality seen. XR/XR chest 1V IMPRESSION: No evidence of acute disease.
--- NOTE | ~2020-10-17 | CT_ITS ---
EXAMINATION: CT ABDOMEN AND PELVIS WITHOUT CONTRAST CLINICAL INFORMATION: Abdominal pain and swelling four days status post peritoneal dialysis catheter insertion. COMPARISON: AP abdomen pelvis October 27, 2019 TECHNIQUE: Multidetector volumetric imaging was performed from the superior aspect of the liver through the pubic symphysis. Sagittal and coronal reformatted images were obtained on the technologist's workstation. This CT examination was performed using dose optimization techniques as appropriate, variously including the following: *Automated exposure control *Adjustment of mA and/or kV according to patient size (this includes techniques or standardized protocols for targeted exams where dose is matched to indication/reason for exam; i.e. extremities or head) *Use of iterative reconstruction technique DLP: 895 mGy-cm FINDINGS: Visualized lung bases are well aerated. The liver demonstrates normal size, contour and attenuation. The gallbladder is normal in appearance. The pancreas, spleen and adrenal glands are unremarkable. No renal calculi or hydronephrosis of either kidney. Subcentimeter hypodensity within the upper pole of the left kidney is too small to accurately characterize. Normal caliber loops of small and large bowel. Appendicolith is noted within an otherwise unremarkable appearing appendix. Mild colonic diverticulosis without CT evidence to suggest active diverticulitis. Tiny fat-containing periumbilical hernia. Interval insertion of peritoneal dialysis catheter which enters within the left mid abdomen and coils deep within the pelvis. There is a trace amount of free pelvic fluid adjacent to the peritoneal dialysis catheter. Normal caliber abdominal aorta which demonstrates only mild atherosclerotic disease. No retroperitoneal lymphadenopathy. The bladder is decompressed and therefore not accurately evaluated. Uterus is surgically absent. No inguinal lymphadenopathy. Mild diffuse degenerative changes of the spine. CT/CT abdomen pelvis wo con IMPRESSION: No CT evidence for acute abnormality within the abdomen or pelvis.
[2020-10-17 15:31] VITALS: PULSE 78; RESP 18; TEMP 36.8; O2SAT 99; BMI 37.4
--- NOTE | 2020-10-17 18:04 | ED_ITS ---
HPI - Abdominal Pain General Chief Complaint: Abdominal Pain Stated Complaint: abd pain Source: patient Mode of arrival: ambulatory Limitations: no limitations History of Present Illness HPI narrative: 50-year-old female presents with abdominal pain, distension, nausea, vomiting, and intermittent fevers and chills. She is 4 days status post peritoneal dialysis stent placement. MD elicited complaint: abdominal pain Onset (ago): day(s) (2) Pain Consistency: constant Location: diffuse Severity: severe Quality: aching and fullness Relieving factors: nothing Context: recent surgery/procedure Associated symptoms: nausea, vomiting, fever and chills Related Data Home Medications Medication Instructions Recorded Confirmed doxazosin 4 mg tablet 4 mg PO BEDTIME 12/16/19 10/17/20 furosemide 20 mg tablet 20 mg PO Q2D 12/16/19 10/17/20 sodium zirconium cyclosilicate 10 10 g PO MOWEFR@0900 ea 04/27/20 10/17/20 gram oral powder packet (Lokelma) ferrous sulfate 325 mg (65 mg 325 mg PO BID 05/11/20 10/17/20 iron) tablet,delayed release docusate sodium 100 mg capsule 100 mg PO BID cap 05/19/20 10/17/20 (Colace) calcitriol 0.25 mcg capsule 0.25 mcg PO DAILY 10/17/20 10/17/20 cyanocobalamin (vitamin B-12) 1,000 mcg PO DAILY 10/17/20 10/17/20 1,000 mcg tablet gabapentin 300 mg capsule 1 cap PO TID PRN 10/17/20 10/17/20 melatonin 5 mg capsule 5 mg PO BEDTIME 10/17/20 10/17/20 omeprazole magnesium 20 mg 20 mg PO DAILY@0630 PRN 10/17/20 10/17/20 tablet,delayed release (Prilosec OTC) sennosides 8.6 mg tablet (senna) 17.2 mg PO BID 10/17/20 10/17/20 sevelamer carbonate 800 mg tablet 1 tab PO TIDWM 10/17/20 10/17/20 Previous Rx's Medication Instructions Recorded hydralazine 25 mg tablet 25 mg PO TID #90 tab 12/26/19 carvedilol phosphate 10 mg 10 mg PO DAILY 90 Days #90 cap 04/20/20 capsule,[id number] multiphase atorvastatin 20 mg tablet 20 mg PO BEDTIME #30 tab 05/25/20 escitalopram oxalate 10 mg tablet 10 mg PO DAILY 90 Days #90 tab 07/12/20 Allergies Allergy/AdvReac Type Severity Reaction Status Date / Time nifedipine Allergy Intermediate hives, leg Verified 07/12/20 11:42 edam Review of Systems Review of Systems Constitutional: No Weight loss, positive subjective Fever, positive Chills, No Night Sweats, No Fatigue, No Malaise ENT/Mouth: No Hearing loss, No Ear Pain, No Nasal Congestion, No Sinus Pain, No Hoarseness, No sore throat, No Rhinorrhea, No Swallowing Difficulty Eyes: No Eye Pain, No Swelling, No Redness, No Foreign Body, No Discharge, No Vision Changes Cardiovascular: No Chest Pain, No SOB, No Dyspnea on Exertion, No Orthopnea, No Edema, No Palpitations Respiratory: No Cough, No Sputum, No Wheezing, No Smoke Exposure, No Dyspnea Gastrointestinal: Positive Nausea, Positive Vomiting, no Diarrhea, positive abdominal Pain, No Hematochezia, No Melena Genitourinary: no irregular bleeding, positive Dysuria, No Urinary Frequency, No Hematuria, No Urinary Incontinence, No Urgency, positive Flank Pain, No Urinary Flow Changes, No Hesitancy Musculoskeletal: No joint pain, No Myalgias, No Joint Swelling Skin: No Skin Lesions, No rash Neuro: No Weakness, No Numbness, No Paresthesias, No Loss of Consciousness, No Dizziness, No Headache Psych: No Anxiety/Panic, No Depression, No SI/HI/AH/VH, No Social Issues Heme/Lymph: No Bruising, No Bleeding,No Lymphadenopathy Endocrine: No Polyuria, No Polydipsia, No Temperature Intolerance Yes all other systems are reviewed and are negative Physical Exam Vital Signs: Vital Signs: Last Vital Signs Temp 98.1 F 10/17/20 20:03 Pulse 76 10/17/20 21:17 Resp 12 10/17/20 21:17 BP 166/95 H 10/17/20 21:17 Pulse Ox 99 10/17/20 21:17 Body Mass Index 37.4 Appearance: Alert. Oriented X3. Moderate distress. Eyes: Pupils equal, round and reactive to light. Sclera nonicteric. ENT: Pharynx normal. Neck: Normal inspection. Neck supple. CVS: Normal heart rate and rhythm. Pulses normal. Respiratory: No respiratory distress. Breath sounds normal. Abdomen: Soft and diffusely tender, particularly around the catheter site, appears distended, normoactive bowel sounds. Skin: Skin warm and dry. Normal skin color. Normal skin turgor. Extremities: No lower extremity edema. Limping gait secondary to abdominal pain. Neuro: No motor deficit. No sensory deficit. Cranial nerves 2-12 intact. Course Course Course Narrative: 50-year-old female presents with diffuse abdominal pain, subjective fevers chills, nausea, vomiting, with suspicion of postop complic ation or infection. Had a peritoneal dialysis catheter placed on 10/13/2020. Will order CT scan of abdomen and pelvis, lab values, lactic and cultures. As patient is a dialysis patient, I hesitate to resuscitate fluid, while sepsis is in the differential, I feel it would be more detrimental to fluid resuscitate at this time. BUN and creatinine 54/5.96 prior value 60/6.3. Chemistries are within normal limits. CBC H&H 11.4/35.4 which is been consistent with prior values dating back to 12/30. White count 8.1. Patient is afebrile, appears nontoxic but uncomfortable. CT scan indicates fluid collection around the peritoneal dialysis catheter, while this could possibly be an infection, I am going to hold off on antibiotics as white count is within normal limits. Patient is afebrile at this time. There could be a possibility of ability for peritoneal fluid collection, call out to Nephrology. 9:10 p.m. discussion with Nephrology environmental services associate. Dr Rider, I did discuss patient's lab values and CT scan findings. Plan is to transfer to [facility] or [facility] for investigation of fluid collection around the catheter. We are unable to care for this here. This case was discussed in detail with Dr. Desai who is in agreement with this plan. 9:34 p.m. discussion with [facility] ED, Dr. Solorzano, plan is to transfer for peritoneal dialysis stent complications. Dr Solorzano also agrees with plan to hold antibiotic treatment for proper culture. Consultations Consultation #1: Nephrology Time: 21:10 Consultation #2: [facility] Emergency Department Time: 21:30 MDM - Abdominal Pain Differential Diagnosis Differential diagnosis: Likely abdominal pain, acute appendicitis and small bowel obstruction Differential diagnosis narrative:: Abscess, postop bleeding Medical Records Attestation: I reviewed the patient's medical records. Lab Data Attestation: I reviewed the patient's lab results. Result diagrams: 10/17/20 18:46 10/17/20 18:46 Labs: Lab Results 10/17/20 10/17/20 10/17/20 Range/Units 18:45 18:46 18:46 WBC 8.1 (4.8-10.8) X10*3/uL RBC 3.98 L (4.20-5.50) X10*6/uL Hgb 11.4 L (12.0-16.0) g/dl Hct 35.4 L (37-47) % MCV 88.9 (80-98) fL MCH 28.6 (27.0-33.0) pg MCHC 32.2 (31.0-35.0) g/dl RDW 14.0 (11.0-16.0) % Plt Count 223 (160-400) X10*3/uL MPV 10.6 (9.4-12.3) fL Immature Gran % (Auto) 0.2 (0.0-0.4) % Neut % (Auto) 67.4 (45-73) % Lymph % (Auto) 25.9 (20-40) % [place] % (Auto) 4.4 (2-11) % Eos % (Auto) 1.7 (0-4) % Baso % (Auto) 0.4 (0-2) % Lymph # (Auto) 2.1 (1.2-4.9) X10*3/uL [place] # (Auto) 0.4 (0.1-1.2) X10*3/uL Eos # (Auto) 0.1 (0.0-0.4) X10*3/uL Baso # (Auto) 0.0 (0.0-0.2) X10*3/uL Abs Immat Gran (auto) 0.02 (0.00-0.03) X10*3/uL Absolute Neuts (auto) 5.5 (2.0-8.3) X10*3/uL Absolute Nucleated RBC 0.000 (0.0-0.012) X10*3/uL Nucleated RBC % (auto) 0.0 (0.0-0.2) /100WBC PT (9.9-13.0) SEC INR (0.9-1.1) APTT (24.1-38.0) SEC Sodium 139 (135-145) mmol/L Potassium 4.5 (3.3-5.1) mmol/L Chloride 110 H (96-108) mmol/L Carbon Dioxide 17 L (22-29) mmol/L Anion Gap 17 (12-20) BUN 54 H (9-16) mg/dL Creatinine 5.69 H* (0.5-1.4) mg/dL Estim Creat Clear Calc 14.1 Estimated GFR 8 Random Glucose 87 (60-115) mg/dL Lactic Acid (0.5-2.0) mmol/L Calcium 9.3 (8.4-10.2) mg/dL Total Bilirubin 0.5 (0.0-1.0) mg/dL Direct Bilirubin < 0.2 (0.0-0.5) mg/dL AST 13 (5-31) U/L ALT < 6 (0-31) U/L Alkaline Phosphatase 95 (39-117) U/L Troponin I High Sens (<3.5-17.0) ng/L Total Protein 7.4 (6.5-8.0) g/dL Albumin 4.0 (3.5-5.0) g/dL Lipase 67 (8-78) U/L Urine Color YELLOW Urine Appearance CLEAR Urine pH 6.0 (5.0-8.0) Ur Specific [place] 1.020 (1.005-1.025) Urine Protein 2+ H (NEG-TRACE) MG/DL Urine Glucose (UA) NEG (NEG) MG/DL Urine Ketones NEG (NEG) MG/DL Urine Blood 1+ H (NEG) Urine Nitrite NEG (NEG) Ur Leukocyte Esterase NEG (NEG) Urine RBC 1-4 (0) /HPF Urine WBC 0 (0-4) /HPF Ur Squamous Epith Cells 3+ /LPF Amorphous Sediment TRACE /LPF Urine Bacteria TRACE /LPF Urine Mucus 2+ /LPF Coronavirus (PCR) (Negative) Influenza Type A (PCR) (Negative) Influenza Type B (PCR) (Negative) RSV RNA Qual (PCR) (Negative) 09/07/21 09/07/21 09/07/21 Range/Units 18:46 18:46 18:46 WBC (4.8-10.8) X10*3/uL RBC (4.20-5.50) X10*6/uL Hgb (12.0-16.0) g/dl Hct (37-47) % MCV (80-98) fL MCH (27.0-33.0) pg MCHC (31.0-35.0) g/dl RDW (11.0-16.0) % Plt Count (160-400) X10*3/uL MPV (9.4-12.3) fL Immature Gran % (Auto) (0.0-0.4) % Neut % (Auto) (45-73) % Lymph % (Auto) (20-40) % [place] % (Auto) (2-11) % Eos % (Auto) (0-4) % Baso % (Auto) (0-2) % Lymph # (Auto) (1.2-4.9) X10*3/uL [place] # (Auto) (0.1-1.2) X10*3/uL Eos # (Auto) (0.0-0.4) X10*3/uL Baso # (Auto) (0.0-0.2) X10*3/uL Abs Immat Gran (auto) (0.00-0.03) X10*3/uL Absolute Neuts (auto) (2.0-8.3) X10*3/uL Absolute Nucleated RBC (0.0-0.012) X10*3/uL Nucleated RBC % (auto) (0.0-0.2) /100WBC PT 10.9 (9.9-13.0) SEC INR 1.0 (0.9-1.1) APTT 38.6 H (24.1-38.0) SEC Sodium (135-145) mmol/L Potassium (3.3-5.1) mmol/L Chloride (96-108) mmol/L Carbon Dioxide (22-29) mmol/L Anion Gap (12-20) BUN (9-16) mg/dL Creatinine (0.5-1.4) mg/dL Estim Creat Clear Calc Estimated GFR Random Glucose (60-115) mg/dL Lactic Acid 0.7 (0.5-2.0) mmol/L Calcium (8.4-10.2) mg/dL Total Bilirubin (0.0-1.0) mg/dL Direct Bilirubin (0.0-0.5) mg/dL AST (5-31) U/L ALT (0-31) U/L Alkaline Phosphatase (39-117) U/L Troponin I High Sens 6.3 (<3.5-17.0) ng/L Total Protein (6.5-8.0) g/dL Albumin (3.5-5.0) g/dL Lipase (8-78) U/L Urine Color Urine Appearance Urine pH (5.0-8.0) Ur Specific [place] (1.005-1.025) Urine Protein (NEG-TRACE) MG/DL Urine Glucose (UA) (NEG) MG/DL Urine Ketones (NEG) MG/DL Urine Blood (NEG) Urine Nitrite (NEG) Ur Leukocyte Esterase (NEG) Urine RBC (0) /HPF Urine WBC (0-4) /HPF Ur Squamous Epith Cells /LPF Amorphous Sediment /LPF Urine Bacteria /LPF Urine Mucus /LPF Coronavirus (PCR) (Negative) Influenza Type A (PCR) (Negative) Influenza Type B (PCR) (Negative) RSV RNA Qual (PCR) (Negative) 10/17/20 Range/Units 18:46 WBC (4.8-10.8) X10*3/uL RBC (4.20-5.50) X10*6/uL Hgb (12.0-16.0) g/dl Hct (37-47) % MCV (80-98) fL MCH (27.0-33.0) pg MCHC (31.0-35.0) g/dl RDW (11.0-16.0) % Plt Count (160-400) X10*3/uL MPV (9.4-12.3) fL Immature Gran % (Auto) (0.0-0.4) % Neut % (Auto) (45-73) % Lymph % (Auto) (20-40) % [place] % (Auto) (2-11) % Eos % (Auto) (0-4) % Baso % (Auto) (0-2) % Lymph # (Auto) (1.2-4.9) X10*3/uL [place] # (Auto) (0.1-1.2) X10*3/uL Eos # (Auto) (0.0-0.4) X10*3/uL Baso # (Auto) (0.0-0.2) X10*3/uL Abs Immat Gran (auto) (0.00-0.03) X10*3/uL Absolute Neuts (auto) (2.0-8.3) X10*3/uL Absolute Nucleated RBC (0.0-0.012) X10*3/uL Nucleated RBC % (auto) (0.0-0.2) /100WBC PT (9.9-13.0) SEC INR (0.9-1.1) APTT (24.1-38.0) SEC Sodium (135-145) mmol/L Potassium (3.3-5.1) mmol/L Chloride (96-108) mmol/L Carbon Dioxide (22-29) mmol/L Anion Gap (12-20) BUN (9-16) mg/dL Creatinine (0.5-1.4) mg/dL Estim Creat Clear Calc Estimated GFR Random Glucose (60-115) mg/dL Lactic Acid (0.5-2.0) mmol/L Calcium (8.4-10.2) mg/dL Total Bilirubin (0.0-1.0) mg/dL Direct Bilirubin (0.0-0.5) mg/dL AST (5-31) U/L ALT (0-31) U/L Alkaline Phosphatase (39-117) U/L Troponin I High Sens (<3.5-17.0) ng/L Total Protein (6.5-8.0) g/dL Albumin (3.5-5.0) g/dL Lipase (8-78) U/L Urine Color Urine Appearance Urine pH (5.0-8.0) Ur Specific [place] (1.005-1.025) Urine Protein (NEG-TRACE) MG/DL Urine Glucose (UA) (NEG) MG/DL Urine Ketones (NEG) MG/DL Urine Blood (NEG) Urine Nitrite (NEG) Ur Leukocyte Esterase (NEG) Urine RBC (0) /HPF Urine WBC (0-4) /HPF Ur Squamous Epith Cells /LPF Amorphous Sediment /LPF Urine Bacteria /LPF Urine Mucus /LPF Coronavirus (PCR) NEGATIVE (Negative) Influenza Type A (PCR) NEGATIVE (Negative) Influenza Type B (PCR) NEGATIVE (Negative) RSV RNA Qual (PCR) NEGATIVE (Negative) Imaging Data CT abdomen pelvis: Attestation: I personally reviewed and interpreted this imaging study as follows: Radiologist's impression: EXAMINATION: CT ABDOMEN AND PELVIS WITHOUT CONTRAST? CLINICAL INFORMATION: Abdominal pain and swelling four days status post peritoneal dialysis catheter insertion.? COMPARISON: AP abdomen pelvis October 27, 2019? TECHNIQUE: Multidetector volumetric imaging was performed from the superior aspect of the liver through the pubic symphysis. Sagittal and coronal reformatted images were obtained on the technologist's workstation.? This CT examination was performed using dose optimization techniques as appropriate, variously including the following: *Automated exposure control *Adjustment of mA and/or kV according to patient size (this includes techniques or standardized protocols for targeted exams where dose is matched to indication/reason for exam; i.e. extremities or head) *Use of iterative reconstruction technique DLP: 895 mGy-cm FINDINGS: Visualized lung bases are well aerated. The liver demonstrates normal size, contour and attenuation. The gallbladder is normal in appearance. The pancreas, spleen and adrenal glands are unremarkable. No renal calculi or hydronephrosis of either kidney. Subcentimeter hypodensity within the upper pole of the left kidney is too small to accurately characterize. Normal caliber loops of small and large bowel. Appendicolith is noted within an otherwise unremarkable appearing appendix. Mild colonic diverticulosis without CT evidence to suggest active diverticulitis. Tiny fat-containing periumbilical hernia. Interval insertion of peritoneal dialysis catheter which enters within the left mid abdomen and coils deep within the pelvis. There is a trace amount of free pelvic fluid adjacent to the peritoneal dialysis catheter. Normal caliber abdominal aorta which demonstrates only mild atherosclerotic disease. No retroperitoneal lymphadenopathy. The bladder is decompressed and therefore not accurately evaluated. Uterus is surgically absent. No inguinal lymphadenopathy. Mild diffuse degenerative changes of the spine. CT/CT abdomen pelvis wo con IMPRESSION: No CT evidence for acute abnormality within the abdomen or pelvis. Chest x-ray: Attestation: I personally reviewed and interpreted this imaging study as follows: Radiologist's impression: EXAMINATION: PORTABLE CHEST 1 VIEW CLINICAL INFORMATION: abd pain . COMPARISON: . TECHNIQUE: Portable frontal view of the chest was obtained. FINDINGS: The lungs are well expanded. No focal infiltrate, effusion, edema, or pneumothorax. Cardiac and mediastinal silhouettes are within normal limits for technique. No acute bony abnormality seen. XR/XR chest 1V IMPRESSION: No evidence of acute disease. ECG Data Attestation: I personally reviewed and interpreted this ECG as follows: ECG interpretation date: 10/17/20 ECG interpretation time: 19:20 Prior ECG tracings: available for review Interpretation: Vent. rate 78 BPM DE interval 140 ms QRS duration 84 ms QT/QTc 416/474 ms P-R-T axes 44 16 5 Normal sinus rhythm Possible Lateral infarct , age undetermined Abnormal ECG When compared with ECG of 24-APR-2020 12:32, No significant change was found Critical Care Time Critical Care Time Critical Care Time: Yes Total Critical Care Time: 65 Attestation: I have personally provided critical care time exclusive of time spent on separately billable procedures. Time includes review of laboratory data, radiology results, discussion with consultants, and monitoring for potential decompensation. Interventions were performed as documented. Discharge Plan Discharge Clinical Impression: Peritoneal dialysis catheter infection Qualifiers: Encounter type: initial encounter Qualified Code(s): T85.71XA - Infection and inflammatory reaction due to peritoneal dialysis catheter, initial encounter Patient Disposition: [facility] Transfer Details: [facility], Dr Solorzano Prescriptions: No Action atorvastatin 20 mg tablet 20 mg PO BEDTIME Qty: 30 RF: 5 doxazosin 4 mg tablet 4 mg PO BEDTIME RF: 0 furosemide 20 mg tablet 20 mg PO Q2D RF: 0 hydralazine 25 mg Tablet 25 mg PO TID Qty: 90 RF: 0 sevelamer carbonate 800 mg tablet 1 tab PO TIDWM RF: 0 gabapentin 300 mg capsule 1 cap PO TID PRN (Reason: Pain (Scale Score 1-3)) RF: 0 sennosides [senna] 8.6 mg tablet 17.2 mg PO BID RF: 0 calcitriol 0.25 mcg capsule 0.25 mcg PO DAILY RF: 0 omeprazole magnesium [Prilosec OTC] 20 mg tablet,delayed release (DR/EC) 20 mg PO DAILY@0630 PRN (Reason: Acid Reflux) RF: 0 melatonin 5 mg capsule 5 mg PO BEDTIME RF: 0 cyanocobalamin (vitamin B-12) 1,000 mcg Tablet 1,000 mcg PO DAILY RF: 0 Lokelma 10 gram powder in packet 10 g PO MOWEFR@0900 RF: 0 carvedilol phosphate 10 mg capsule, ER multiphase 24 hr 10 mg PO DAILY 90 Days Qty: 90 RF: 3 escitalopram oxalate 10 mg tablet 10 mg PO DAILY 90 Days Qty: 90 RF: 1 docusate sodium [Colace] 100 mg capsule 100 mg PO BID RF: 0 ferrous sulfate 325 mg (65 mg iron) tablet,delayed release (DR/EC) 325 mg PO BID RF: 0 Interventions: Acute Care Transfer Worksheet (ED) Last Done: 10/17/20 22:41 Discharge Date/Time: 10/17/20 22:42 [facility] Past Medical History Attestation statement: The following information was validated with the patient. Source: old records reviewed Medical History Abnormal mammogram of right breast Anemia Anxiety Anxiety and depression Back pain Chest pain Chronic renal insufficiency CKD (chronic kidney disease) Depression Dyslipidemia Family history of ovarian cancer GERD (gastroesophageal reflux disease) History of headache History of postoperative nausea Hospital discharge follow-up HTN (hypertension) Lab test negative for COVID-19 virus Nephrosclerosis Obesity (BMI 30-39.9) Physical exam Renal interstitial fibrosis Surgical History History of endometrial ablation Hx of colonoscopy Hx of hysterectomy Hx of tubal ligation Family History Family History Father Diabetes Mother Asthma Hypertension Ovarian cancer Maternal Grandfather Myocardial infarction Paternal Grandmother Stroke Social History Social History Household Members: Spouse and Children Housing: Apartment Do you presently have visiting nurse or other home services: No Alcohol intake: never Patient Tobacco Use Status: Former Tobacco user Tobacco use type: Cigarette Years Smoked: 10+ e-Cigarette/Vaping Use: Never Used Second Hand Smoke Exposure: No Use of substances other than those prescribed or required for medical reasons: No Advance Directives: No Advance Directives Information Provided: Yes service: No Current occupational status: employed
--- NOTE | 2020-10-17 18:08 | ECG_ITS ---
Test Reason : WEAKNESS Blood Pressure : / mmHG Vent. Rate : 078 BPM Atrial Rate : 078 BPM P-R Int : 140 ms QRS Dur : 084 ms QT Int : 416 ms P-R-T Axes : 044 016 058 degrees QTc Int : 474 ms Normal sinus rhythm Possible Lateral infarct , age undetermined Abnormal ECG When compared with ECG of 24-APR-2020 12:32, No significant change was found Referred By: Geetha Suarez Electronically Signed By:RIMA WILSON
[2020-10-17 18:33] VITALS: BP 174/88; PULSE 70; RESP 16; TEMP 36.8; O2SAT 100
--- NOTE | 2020-10-17 18:59 | PC.NURSE ---
Report taken from Katie. This RN resuming care. Pt in CT at present time, plan for labs, EKG and medications upon return.
[2020-10-17 19:01] LABS: MANUAL DIFF FLAG NO
[2020-10-17 19:03] LABS: Basophils Percent Auto 0.4 % (0-2); Eosinophils Absolute Auto 0.1 X10*3/uL (0.0-0.4); Eosinophils Percent Auto 1.7 % (0-4); Hematocrit 35.4 % (37-47); Hemoglobin 11.4 g/dl (12.0-16.0); Imm Gran Abs Auto 0.02 X10*3/uL (0.00-0.03); Imm Gran Pct Auto 0.2 % (0.0-0.4); Lymphocytes Absolute Auto 2.1 X10*3/uL (1.2-4.9); Lymphocytes Percent Auto 25.9 % (20-40); Mean Corpuscular HGB Conc 32.2 g/dl (31.0-35.0); Mean Corpuscular Hemoglobin 28.6 pg (27.0-33.0); Mean Corpuscular Volume 88.9 fL (80-98); Mean Platelet Volume 10.6 fL (9.4-12.3); Monocytes Absolute Auto 0.4 X10*3/uL (0.1-1.2); Monocytes Percent Auto 4.4 % (2-11); Neutrophils Absolute Auto 5.5 X10*3/uL (2.0-8.3); Neutrophils Percent Auto 67.4 % (45-73); Platelet Count 223 X10*3/uL (160-400); Red Blood Count 3.98 X10*6/uL (4.20-5.50); White Blood Count 8.1 X10*3/uL (4.8-10.8)
[2020-10-17 19:06] LABS: Glucose Urine UA NEG (NEG); Leukocyte Esterase Urine NEG (NEG); Nitrite Urine NEG (NEG); UACC Culture Trigger NO; Urine Blood 1+ (NEG); Urine Ketones NEG (NEG); Urine Protein 2+ MG/DL (NEG-TRACE)
[2020-10-17 19:07] LABS: Appearance Urine CLEAR; Color Urine YELLOW
[2020-10-17 19:09] LABS: Prothrombin Time 10.9 SEC (9.9-13.0)
[2020-10-17 19:11] LABS: Partial Thromboplastin Time 38.6 SEC (24.1-38.0)
[2020-10-17 19:13] VITALS: RESP 16
[2020-10-17 19:13] LABS: Squamous Epithelial Cell Urine 3+ /LPF; WBC Urine 0 /HPF (0-4)
[2020-10-17] MEDS: Morphine Sulfate 4 MG/ML CARTRIDGE IVPUSH ×2 (19:13→21:17)
[2020-10-17] MEDS: ondansetron HCL 4 MG/2 ML VIAL IVPUSH (19:13)
[2020-10-17 19:14] LABS: Amorphous Sediment Urine TRACE /LPF; Bacteria Urine TRACE /LPF; Mucus Urine 2+ /LPF
[2020-10-17 19:16] LABS: Lactic Acid 0.7 mmol/L (0.5-2.0)
[2020-10-17 19:23] LABS: Troponin-I High Sensitivity 6.3 ng/L (<3.5-17.0)
--- NOTE | 2020-10-17 19:25 | PC.NURSE ---
PT returned from CT. EKG completed by technical research scientist. PT medicated per APR for 7/10 pain rating. 2nd set of cultures obtained. Vitals are stable.
[2020-10-17 19:27] VITALS: BP 177/94; PULSE 75; RESP 14; O2SAT 96
[2020-10-17 19:31] LABS: Alanine Aminotransferase < 6 U/L (0-31); Alkaline Phosphatase 95 U/L (39-117); Anion Gap 17 (12-20); Aspartate Amino Transferase 13 U/L (5-31); Bilirubin Direct < 0.2 mg/dL (0.0-0.5); Bilirubin Total 0.5 mg/dL (0.0-1.0); Blood Urea Nitrogen 54 mg/dL (9-16); Calcium 9.3 mg/dL (8.4-10.2); Carbon Dioxide 17 mmol/L (22-29); Chloride 110 mmol/L (96-108); Creatinine Clr Calc Pharmacy 14.1; Estimated Glomerular Filt Rate 8; Glucose Random 87 mg/dL (60-115); Lipase 67 U/L (8-78); Potassium 4.5 mmol/L (3.3-5.1); Sodium 139 mmol/L (135-145); Total Protein 7.4 g/dL (6.5-8.0)
[2020-10-17 19:38] LABS: Influenza A PCR NEGATIVE (Negative); Influenza B PCR NEGATIVE (Negative); Resp Syncy Virus RNA Qual PCR NEGATIVE (Negative); SARS COV2 PCR INHOUSE NEGATIVE (Negative)
[2020-10-17 20:03] VITALS: BP 174/95; PULSE 72; RESP 16; TEMP 36.7; O2SAT 99
[2020-10-17 21:17] VITALS: BP 166/95; PULSE 76; RESP 12; O2SAT 99
--- NOTE | 2020-10-17 21:19 | PC.NURSE ---
PT medicated per APR for 10/20 pain. VSS. Per [employer] WORKER, plan for possible admission.
--- NOTE | 2020-10-17 22:03 | PHA.MEDREC ---
Pharmacy Consult ? Medication Reconciliation Pharmacy has completed the medication reconciliation. spoke with patient in ED
--- NOTE | 2020-10-17 22:40 | PC.NURSE ---
EMS at bed side for transport to [facility]. This RN calling [facility] and giving nurse to nurse to ED nurse.
== END 2020-10-17 22:42 | disposition short-term general hospital (02) ==
PROVIDERS: Nurse Practitioner Family; Emergency Provider Internal Medicine; PCP Internal Medicine
DX: T85.71XA Infection and inflammatory reaction due to peritoneal dialysis catheter, initial encounter (principal); R10.9 Unspecified abdominal pain
CPT/HCPCS: 0241U; 36415; 71045; 74176; 80048; 80076; 81001; 83605; 83690; 84484; 85025; 85610; 85730; 87040; 93005; 96374; 96375; 96376; 99285; 99291; J2270; J2405

== ENCOUNTER 2020-11-02 13:57 | Outpatient (REF) | payer OTHER, SELFPAY ==
[2020-11-02 14:39] LABS: MANUAL DIFF FLAG NO
[2020-11-02 14:41] LABS: Basophils Percent Auto 0.6 % (0-2); Eosinophils Absolute Auto 0.1 X10*3/uL (0.0-0.4); Eosinophils Percent Auto 2.1 % (0-4); Hematocrit 35.1 % (37-47); Imm Gran Abs Auto 0.03 X10*3/uL (0.00-0.03); Imm Gran Pct Auto 0.4 % (0.0-0.4); Lymphocytes Absolute Auto 1.8 X10*3/uL (1.2-4.9); Lymphocytes Percent Auto 26.1 % (20-40); Mean Corpuscular HGB Conc 31.3 g/dl (31.0-35.0); Mean Corpuscular Hemoglobin 28.2 pg (27.0-33.0); Monocytes Absolute Auto 0.4 X10*3/uL (0.1-1.2); Monocytes Percent Auto 6.5 % (2-11); Neutrophils Absolute Auto 4.4 X10*3/uL (2.0-8.3); Neutrophils Percent Auto 64.3 % (45-73); Platelet Count 268 X10*3/uL (160-400); Red Cell Distribution Width 13.4 % (11.0-16.0); White Blood Count 6.8 X10*3/uL (4.8-10.8)
[2020-11-02 15:04] LABS: Anion Gap 15 (12-20); Blood Urea Nitrogen 49 mg/dL (9-16); Calcium 9.5 mg/dL (8.4-10.2); Carbon Dioxide 22 mmol/L (22-29); Chloride 107 mmol/L (96-108); Cholesterol 158 mg/dL; Estimated Glomerular Filt Rate 8; Glucose Random 78 mg/dL (60-115); HDL Cholesterol 40 mg/dL; LDL Cholesterol Calculated 91 mg/dl; Potassium 5.2 mmol/L (3.3-5.1); Sodium 139 mmol/L (135-145); Triglycerides 138 mg/dL
[2020-11-03 04:28] LABS: HBS Num1 9.09 mIU/mL (0-7.99); HBc Num1 0.22 S/CO (0.00-0.79); HBsAGNum1 0.15 S/CO (0.00-0.99); Hepatitis B Core Antibody Nonreactive (Nonreactive); Hepatitis B Surface Antigen Negative (Negative); ~HepC Num1 0.18 S/CO (0.00-0.79); ~Hepatitis C Antibody Nonreactive (Nonreactive)
[2020-11-03 05:10] LABS: HBS Num2 9.22 mIU/mL (0-7.99); HBS Num3 9.46 mIU/mL (0-7.99); ~Hepatitis B Surface Antibody GRAYZONE (Nonreactive)
== END 2020-11-02 13:58 | disposition home or self-care (01) ==
LOC: HO.LAB 13:57
PROVIDERS: Internal Medicine; PCP Internal Medicine; Visit Provider Internal Medicine Nephrology
DX: I13.2 Hypertensive heart and chronic kidney disease with heart failure and with stage 5 chronic kidney disease, or end stage renal disease (principal); N18.5 Chronic kidney disease, stage 5; I50.9 Heart failure, unspecified; N25.0 Renal osteodystrophy; N17.9 Acute kidney failure, unspecified; D64.9 Anemia, unspecified; E78.5 Hyperlipidemia, unspecified
CPT/HCPCS: 36415; 80048; 80061; 85025; 86704; 86706; 86803; 87340

== ENCOUNTER 2020-12-11 15:04 | Outpatient (REF) | payer OTHER, SELFPAY ==
[2020-12-11 15:32] LABS: COVID-19 Test Negative (Negative)
== END 2020-12-11 15:05 | disposition home or self-care (01) ==
LOC: HO.LAB 15:04
PROVIDERS: PCP Internal Medicine; Visit Provider Internal Medicine
DX: Z20.822 Contact with and (suspected) exposure to COVID-19 (principal)
CPT/HCPCS: 36415; 87635; C9803

== ENCOUNTER 2021-01-10 12:13 | Outpatient (REF) | payer OTHER, SELFPAY ==
--- NOTE | ~2021-01-10 | US_ITS ---
EXAMINATION: US DIAGNOSTIC ULTRASOUND BREAST, RIGHT CLINICAL INFORMATION: Six-month follow-up right breast lesion postbiopsy. COMPARISON: June 22, 2020 and studies dating back to February 20, 2015. TECHNIQUE: Ultrasound of the breast is performed with real-time bearden scale imaging and color Doppler. FINDINGS: Targeted ultrasound evaluation of the right breast demonstrated at the 8:00 position 6 cm from the nipple a 6 x 4 x 3 mm well-circumscribed cystic-appearing lesion containing an echogenic marking clip is a small amount of echogenic material. No internal vascularity is identified on this study and the more prominent echogenic material from study of June 22, 2020 is not as evident. Results are provided to the patient at time of visit by the technologist. US/US breast RT limited IMPRESSION: No specific mammographic or ultrasound findings to suggest malignancy of the right breast. Targeted lesion containing clip is slightly smaller than on previous study but now contains some calcifications which are likely dystrophic.. ASSESSMENT: BI-RADS 3: Probably Benign RECOMMENDATION: Diagnostic mammography in 6 months.
--- NOTE | ~2021-01-10 | MM_ITS ---
EXAMINATION: MM DIAGNOSTIC DIGITAL BREAST TOMOSYNTHESIS, RIGHT TARGETED RIGHT BREAST ULTRASOUND CLINICAL INFORMATION: Six-month follow-up after right breast biopsy. The lifetime risk of breast cancer based on the Tyrer-Cuzick Model is 5.9%. COMPARISON: Mammography: 06/22/2020 and studies dating back to 02/20/2015. TECHNIQUE: Digital breast tomosynthesis is performed in both the craniocaudal and mediolateral oblique views along with computer-aided detection (CAD). Synthesized 2D images are generated from the tomosynthesis. Targeted right breast ultrasound. FINDINGS: There are scattered areas of fibroglandular density (ACR BI-RADS breast composition Category b). The circumscribed density with clip in place within the lateral aspect of the right breast calcifications being new but somewhat coarse in appearance and likely dystrophic. The circumscribed density now measures approximately 7 x 5 mm in size compared to 9 x 6 mm in size on previous study. Targeted ultrasound evaluation of the right breast demonstrated at the 8 o'clock position 6 cm from the nipple a 6 x 4 x 3 mm well-circumscribed cystic-appearing lesion containing an echogenic marking clip and a small amount of echogenic material. No internal vascularity is identified on this study and the more prominent echogenic material from study of 06/22/2020 is not as evident. Results are provided to the patient at time of visit by the technologist. MM/MM tomosynthesis diagnostic RT IMPRESSION: No specific mammographic or ultrasound findings to suggest malignancy of the right breast. Targeted lesion containing clip is slightly smaller than on previous study but now contains some calcifications which are likely dystrophic. ASSESSMENT: BI-RADS 3: Probably Benign. RECOMMENDATION: Diagnostic mammography in 6 months. This patient's information was entered into a reminder system with a target due date for their next mammogram.
== END 2021-01-10 12:14 | disposition home or self-care (01) ==
LOC: HO.MAMMO 12:13
PROVIDERS: Visit Provider Surgery
DX: N64.89 Other specified disorders of breast (principal)
CPT/HCPCS: 76642; 77061; 77065

== ENCOUNTER → 2021-01-11 08:22 | Outpatient (BNVA) | payer OTHER, SELFPAY | PROVIDERS: PCP Internal Medicine; Visit Provider Nurse Practitioner ==

== ENCOUNTER 2021-02-26 13:15 | Outpatient (REF) | payer OTHER, SELFPAY | END 2021-02-26 13:16 | disposition home or self-care (01) | LOC: HO.LAB 13:15 | PROVIDERS: PCP Internal Medicine; Visit Provider Anesthesiology | DX: G89.4 Chronic pain syndrome (principal); R32 Unspecified urinary incontinence; R15.9 Full incontinence of feces; N18.6 End stage renal disease; M54.16 Radiculopathy, lumbar region; M51.26 Other intervertebral disc displacement, lumbar region; M51.36 Other intervertebral disc degeneration, lumbar region; M48.00 Spinal stenosis, site unspecified; Z99.2 Dependence on renal dialysis | CPT/HCPCS: 99212 ==

== ENCOUNTER → 2021-03-19 13:29 | Outpatient (BNVA) | payer OTHER, SELFPAY | PROVIDERS: PCP Internal Medicine; Visit Provider Anesthesiology ==

== ENCOUNTER → 2021-04-25 14:13 | Outpatient (BNVA) | payer OTHER, SELFPAY | PROVIDERS: PCP Family Medicine; Visit Provider Anesthesiology | DX: M54.16 Radiculopathy, lumbar region (principal); M51.26 Other intervertebral disc displacement, lumbar region; M51.36 Other intervertebral disc degeneration, lumbar region; M48.00 Spinal stenosis, site unspecified; R15.9 Full incontinence of feces; R32 Unspecified urinary incontinence; N18.6 End stage renal disease; Z99.2 Dependence on renal dialysis | CPT/HCPCS: 99212 ==

== ENCOUNTER 2021-05-03 21:43 | Emergency (ER) | payer OTHER, SELFPAY ==
[2021-05-03 22:01] VITALS: BP 000/00; PULSE 72; RESP 18; TEMP 36.8; O2SAT 98; BMI 47.5
--- NOTE | 2021-05-03 22:04 | PC.NURSE ---
danielle campos rn aware of patients current status in waiting room.
[2021-05-03 22:21] LABS: MANUAL DIFF FLAG NO
[2021-05-03 22:25] LABS: Basophils Percent Auto 0.4 % (0-2); Eosinophils Absolute Auto 0.1 X10*3/uL (0.0-0.4); Eosinophils Percent Auto 1.3 % (0-4); Hematocrit 35.1 % (37.0-47.0); Hemoglobin 11.4 g/dl (12.0-16.0); Imm Gran Abs Auto 0.04 X10*3/uL (0.00-0.03); Imm Gran Pct Auto 0.4 % (0.0-0.4); Lymphocytes Absolute Auto 2.8 X10*3/uL (1.2-4.9); Lymphocytes Percent Auto 28.3 % (20-40); Mean Corpuscular HGB Conc 32.5 g/dl (31.0-35.0); Mean Corpuscular Hemoglobin 27.7 pg (27.0-33.0); Mean Corpuscular Volume 85.2 fL (80.0-98.0); Mean Platelet Volume 9.4 fL (9.4-12.3); Monocytes Absolute Auto 0.8 X10*3/uL (0.1-1.2); Monocytes Percent Auto 8.4 % (2-11); Neutrophils Absolute Auto 6.1 x10*3/uL (2.0-8.3); Neutrophils Percent Auto 61.2 % (45-73); Platelet Count 247 X10*3/uL (160-400); Red Blood Count 4.12 X10*6/uL (4.20-5.50); Red Cell Distribution Width 15.2 % (11.0-16.0)
[2021-05-03 22:57] LABS: Alanine Aminotransferase 35 U/L (0-31); Albumin Level 4.1 g/dL (3.5-5.0); Alkaline Phosphatase 98 U/L (39-117); Anion Gap 17 (12-20); Aspartate Amino Transferase 38 U/L (5-31); Bilirubin Total 0.5 mg/dL (0.0-1.0); Blood Urea Nitrogen 37 mg/dL (9-16); Calcium 9.8 mg/dL (8.4-10.2); Carbon Dioxide 27 mmol/L (22-29); Chloride 100 mmol/L (96-108); Creatinine Clr Calc Pharmacy 13.5; Estimated Glomerular Filt Rate 7; Glucose Random 70 mg/dL (60-115); Lipase 191 U/L (8-78); Potassium 3.6 mmol/L (3.3-5.1); Sodium 140 mmol/L (135-145); Total Protein 7.2 g/dL (6.5-8.0)
== END 2021-05-04 00:32 | disposition left against medical advice (07) ==
LOC: HO.ED 05-04 00:14
PROVIDERS: Emergency Provider Emergency Medicine; PCP Internal Medicine
DX: R10.9 Unspecified abdominal pain (principal); I12.0 Hypertensive chronic kidney disease with stage 5 chronic kidney disease or end stage renal disease; N18.6 End stage renal disease; Z99.2 Dependence on renal dialysis; Z96.0 Presence of urogenital implants
CPT/HCPCS: 36415; 80053; 83690; 85025; 99282; 99283

== ENCOUNTER 2021-05-04 10:18 | Emergency (ER) | payer OTHER, SELFPAY ==
--- NOTE | ~2021-05-04 | CT_ITS ---
EXAMINATION: CT ABDOMEN AND PELVIS WITHOUT CONTRAST CLINICAL INFORMATION: Abdominal pain COMPARISON: CT abdomen and pelvis 10/17/2020 TECHNIQUE: Multidetector volumetric imaging was performed from the superior aspect of the liver through the pubic symphysis. Sagittal and coronal reformatted images were obtained on the technologist's workstation. This CT examination was performed using dose optimization techniques as appropriate, variously including the following: *Automated exposure control *Adjustment of mA and/or kV according to patient size (this includes techniques or standardized protocols for targeted exams where dose is matched to indication/reason for exam; i.e. extremities or head) *Use of iterative reconstruction technique DLP: 892 mGy-cm FINDINGS: LUNG BASES: The visualized lung bases are unremarkable. LIVER, GALLBLADDER, AND BILIARY TREE: The liver is normal in size, shape, and attenuation. No focal hepatic lesion or biliary ductal dilatation is present. The gallbladder is unremarkable with no evidence of radiopaque gallstones, gallbladder wall thickening, or obvious pericholecystic inflammatory changes. PANCREAS: Unremarkable. SPLEEN: Unremarkable. ADRENAL GLANDS: Unremarkable. KIDNEYS AND URETERS: The kidneys are normal in size, shape, and attenuation. No hydronephrosis, hydroureter, or calculi seen. No perinephric stranding. BLADDER: Unremarkable. GASTROINTESTINAL TRACT: The small and large bowel are unremarkable. The appendix is unremarkable. There is a left abdominal solid peritoneal dialysis catheter deep in the pelvis with minimal fluid adjacent to it. ABDOMINAL WALL: No significant hernia is appreciated. LYMPH NODES: Normal. VASCULAR: Unremarkable. PELVIC VISCERA: There is no free air or free fluid. OSSEOUS STRUCTURES: No lytic or sclerotic process seen. There is grade [address] over L[address]/CT abdomen pelvis wo con IMPRESSION: No acute intra-abdominal process. No major change compared to previous study 10/17/2020 Fleischner guidelines were followed.
--- NOTE | 2021-05-04 10:24 | ECG_ITS ---
Test Reason : abd pain Blood Pressure : / mmHG Vent. Rate : 086 BPM Atrial Rate : 086 BPM P-R Int : 130 ms QRS Dur : 090 ms QT Int : 382 ms P-R-T Axes : 015 029 044 degrees QTc Int : 457 ms Normal sinus rhythm Nonspecific ST abnormality Abnormal ECG When compared with ECG of 17-OCT-2020 19:20, Nonspecific T wave abnormality, worse in Lateral leads Referred By: Cristina James Electronically Signed By:CHARLY ODELL MD
--- NOTE | 2021-05-04 10:24 | ED.GENADULT ---
HPI - General Adult General Chief complaint: Nausea/Vomiting/Diarrhea Stated complaint: Multiple Complaints Time Seen by Provider: 05/04/21 10:24 Source: patient and EMS Mode of arrival: EMS Limitations: no limitations History of Present Illness HPI narrative: Patient is a 50 year old female presenting to the emergency department today with right sided flank pain. Patient states that for the last 2 days she has had right flank pain. Patient states that she is currently on dialysis and had a dialysis treatment this morning. States that she checked in here yesterday and had blood work done but did not stay around long enough to be treated or seen by a provider. Patient states that she is having some mild pain with urination and is not producing as much urine as she once was. Patient denies any dizziness, lightheadedness, nausea, vomiting, fever, chills, blurry vision, double vision, loss of vision, chest pain, difficulty breathing, shortness of breath, back pain, night sweats, increased urinary frequency, increased urinary urgency, blood in her urine or stool, syncope or a near syncopal episode, recent trauma or falls, bowel incontinence, bladder incontinence, bowel retention, bladder retention, or any other complaints at this time. Onset (ago): day(s) (2) Severity: mild Severity scale (1-10): 3 Quality: dull Pain Consistency: constant Relieving factors: none Exacerbating factors: none Associated symptoms: denies other symptoms Treatments prior to arrival: none Related Data Home Medications Medication Instructions Recorded Confirmed furosemide 20 mg tablet 20 mg PO Q2D 12/16/19 02/14/21 sodium zirconium cyclosilicate 10 10 g PO MOWEFR@0900 ea 04/27/20 02/14/21 gram oral powder packet (Lokelaz) ferrous sulfate 325 mg (65 mg 325 mg PO BID 05/11/20 02/14/21 iron) tablet,delayed release docusate sodium 100 mg capsule 100 mg PO BID cap 05/19/20 02/14/21 (Colace) calcitriol 0.25 mcg capsule 0.25 mcg PO DAILY 10/17/20 02/14/21 cyanocobalamin (vitamin B-12) 1,000 mcg PO DAILY 10/17/20 02/14/21 1,000 mcg tablet gabapentin 300 mg capsule 1 cap PO TID PRN 10/17/20 02/14/21 sevelamer carbonate 800 mg tablet 1 tab PO TIDWM 10/17/20 02/14/21 isoniazid 300 mg tablet 300 mg PO DAILY 11/13/20 02/14/21 hydralazine 25 mg tablet 25 mg PO TID 02/26/21 meclizine 25 mg tablet 25 mg PO BID PRN 02/26/21 Previous Rx's Medication Instructions Recorded hydralazine 25 mg tablet 25 mg PO TID #90 tab 12/26/19 carvedilol phosphate 10 mg 10 mg PO DAILY 90 Days #90 cap 04/20/20 capsule,[id number] multiphase melatonin 5 mg capsule 5 mg PO BEDTIME 90 Days #90 cap 12/20/20 fluticasone propionate 50 1 spray INTRANASAL DAILY #16 g 01/08/21 mcg/actuation nasal spray,suspension omeprazole magnesium 20 mg 20 mg PO DAILY@0630 30 Days #30 tab 01/11/21 tablet,delayed release (Prilosec OTC) cyclobenzaprine 5 mg tablet 5 mg PO BEDTIME #14 tab 02/14/21 diclofenac sodium 1 % topical gel 2 g TOPICAL QID #100 g 02/14/21 (Voltaren Arthritis Pain) lidocaine 5 % topical patch 1 patch TOPICAL DAILY #30 ea 02/14/21 buprenorphine HCl 75 mcg buccal 75 mcg BUCCAL Q12H 30 Days #60 ea 03/19/21 film (Belbuca) escitalopram oxalate 10 mg tablet 10 mg PO DAILY 90 Days #90 tab 03/27/21 atorvastatin 20 mg tablet 20 mg PO BEDTIME #90 tab 04/10/21 doxazosin 4 mg tablet 4 mg PO BEDTIME 30 Days #30 tab 04/27/21 sennosides 8.6 mg tablet (senna) 17.2 mg PO BID 30 Days #120 tab 04/27/21 cefuroxime axetil 250 mg tablet 250 mg PO ONCE 10 Days #10 tab 05/04/21 Allergies Allergy/AdvReac Type Severity Reaction Status Date / Time nifedipine Allergy Intermediate hives, leg Verified 05/03/21 21:49 edam Review of Systems Constitutional: Constitutional: Reports no additional constitutional complaints, Denies chills, Denies fever(s) and Denies night sweats Eyes: Eyes: Reports no additional eye complaints, Denies blurry vision, Denies change in vision, Denies diplopia, Denies eye discharge, Denies loss of vision and Denies eye pain ENT: Denies dizziness Cardiovascular: Cardiovascular: Reports no additional cardiovascular complaints, Denies chest pain, Denies lightheadedness, Denies Loss of Consciousness and Denies dyspnea Respiratory: Respiratory: Reports no additional respiratory complaints and Denies dyspnea Gastrointestinal: Gastrointestinal: Reports no additional gastrointestinal complaints, Denies abdominal pain, Denies melena, Denies hematochezia, Denies change in bowel habits and Denies change in stool character Comments: right sided flank pain Genitourinary: Genitourinary: Denies hematuria, Denies urinary frequency, Denies dysuria, Denies urinary incontinence, Denies urinary hesitancy and Denies urinary urgency Musculoskeletal: Musculoskeletal: Reports no additional musculoskeletal complaints, Denies numbness and Denies tingling Neurologic: Denies dizziness, Denies loss of vision, Denies numbness and Denies tingling Psychiatric: Psychiatric: Reports no additional psychiatric complaints Endocrine: Endocrine: Reports no additional endocrine complaints Hematologic/Lymphatic: Hematologic/Lymphatic: Reports no additional hematologic/lymphatic complaints Allergic/Immunologic: Allergic/Immunologic: Reports no additional allergic/immunologic complaints [facility] Past Medical History Attestation statement: The following information was validated with the patient. 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 History of headache History of postoperative nausea Hospital discharge follow-up HTN (hypertension) Lab test negative for COVID-19 virus Lumbar back pain with radiculopathy affecting left lower extremity Nephrosclerosis Obesity (BMI 30-39.9) Physical exam Polyarthralgia Renal interstitial fibrosis Spinal stenosis Spondylosis without myelopathy or radiculopathy, lumbar region Surgical History History of endometrial ablation Hx of colonoscopy Hx of hysterectomy Hx of tubal ligation Family History Family History Father Diabetes Mother Asthma Hypertension Ovarian cancer Maternal Grandfather Myocardial infarction Paternal Grandmother Stroke Social History Social History Household Members: Spouse and Children Housing: Apartment Do you presently have visiting nurse or other home services: No Alcohol intake: never Patient Tobacco Use Status: Former Tobacco user Tobacco use type: Cigarette Years Smoked: 10+ e-Cigarette/Vaping Use: Never Used Second Hand Smoke Exposure: No Advance Directives: No Advance Directives Information Provided: Yes Patient : No service: No Current occupational status: employed Physical Exam ED Vital Signs: Vital Signs - 24 hr 05/04/21 10:39 05/04/21 11:50 Temperature 98.5 F Pulse Rate 84 81 Respiratory Rate 20 14 Blood Pressure 130/76 120/75 Pulse Oximetry 97 BMI result Body Mass Index 37.8 Const General: cooperative, no acute distress, alert and awake Nutritional Appearance: well nourished Orientation/consciousness: patient oriented x3 Limitations: no limitations HENMT Head: Yes normal to inspection and Yes atraumatic Ears: hearing grossly normal bilaterally and external ears normal General nose exam: Normal external nose present, no nasal discharge noted and no epistaxis Face and sinus: Yes normal facial exam, No abrasion and No laceration Mouth: Normal oral and palatal mucosa present, no drooling and no muffled voice Eyes General: appearance normal, both eyes and all related structures Periorbital: periorbital findings normal Eyelids: Yes eyelids normal Conjunctivae: conjunctivae normal Pupils: Equal, round and reactive pupils present EOM: EOMs intact bilaterally Neck Neck: Yes normal visual inspection, Yes full ROM and Yes no lymphadenopathy Chest Other: port in place to the right upper chest Resp Effort & Inspection: normal respiratory effort and able to speak in complete sentences Auscultation: clear to auscultation bilaterally Cardio Rate: regular rate Rhythm: regular rhythm GI Other: former PD port in place but otherwise unremarkable examination Palpation (GI): Soft to palpation, not firm, nontender, no guarding and not rigid Neuro General: patient oriented x3 and moves all extremities Cranial nerves: Yes Equal, round and reactive pupils present Cognition (Neuro): normal cognition Motor exam (neuro): 5/5 motor strength present throughout Sensory Exam: Normal double simultaneous stimulation for sensation Coordination: [id number] test normal Extrem General: Yes normal to inspection, Yes full ROM and Yes capillary refill normal Psych Appearance: grossly normal Mental Status: mental status grossly normal Affect: normal affect Attitude: cooperative Thought process: Normal thought process present Thought content: Normal thought content present Insight: Good insight present (Psych) Medical Decision Making MDM Narrative Medical decision making narrative: Patient is a 50 year old female presenting to the emergency department today with right lower quadrant abdominal pain and right lower back pain. Patient's physical exam was unremarkable. Patient's blood work showed an elevated WBC count and chronically elevated kidney function studies. Patient's urine showed no acute process. Patient's EKG was unremarkable. Patient's abdominal CT showed no acute process. I explained my physical exam findings as well as all test results to the patient. I answered all questions asked by the patient. I stressed the importance of the patient taking her medication as prescribed. I stressed the importance of the patient following up with her primary care provider and her youth development professional. I stressed the importance of the patient returning to the emergency department immediately if her symptoms were to worsen or if she were to develop any dizziness, shortness of breath, difficulty breathing, chest pain, blurry vision, loss of vision, nausea, vomiting, abdominal pain, fever, chills, back pain, or any other complaints. Patient verbalized agreement and understanding with this treatment plan and discharge. Differential Diagnosis Differential Diagnosis: UTI, appendicitis Medical Records Medical records reviewed: Yes I reviewed the patient's medical records. Lab Data Lab results reviewed: Yes I reviewed the patient's lab results. Result diagrams: 05/04/21 11:09 05/04/21 11:09 Labs: Lab Results 05/04/21 05/04/21 05/04/21 Range/Units 11:09 11:09 11:09 WBC 12.5 H (4.8-10.8) X10*3/uL RBC 4.34 (4.20-5.50) X10*6/uL Hgb 11.8 L (12.0-16.0) g/dl Hct 38.0 (37.0-47.0) % MCV 87.6 (80.0-98.0) fL MCH 27.2 (27.0-33.0) pg MCHC 31.1 (31.0-35.0) g/dl RDW 15.4 (11.0-16.0) % Plt Count 214 (160-400) X10*3/uL MPV 9.3 L (9.4-12.3) fL Immature Gran % (Auto) 0.3 (0.0-0.4) % Neut % (Auto) 81.4 H (45-73) % Lymph % (Auto) 9.2 L (20-40) % [place] % (Auto) 8.6 (2-11) % Eos % (Auto) 0.2 (0-4) % Baso % (Auto) 0.3 (0-2) % Lymph # (Auto) 1.2 (1.2-4.9) X10*3/uL [place] # (Auto) 1.1 (0.1-1.2) X10*3/uL Eos # (Auto) 0.0 (0.0-0.4) X10*3/uL Baso # (Auto) 0.0 (0.0-0.2) X10*3/uL Abs Immat Gran (auto) 0.04 H (0.00-0.03) X10*3/uL Absolute Neuts (auto) 10.2 H (2.0-8.3) x10*3/uL Absolute Nucleated RBC 0.000 (0.0-0.012) X10*3/uL Nucleated RBC % (auto) 0.0 (0.0-0.2) /100WBC Sodium 139 (135-145) mmol/L Potassium 3.9 (3.3-5.1) mmol/L Chloride 101 (96-108) mmol/L Carbon Dioxide 29 (22-29) mmol/L Anion Gap 13 (12-20) BUN 19 H (9-16) mg/dL Creatinine 3.79 H (0.5-1.4) mg/dL Estim Creat Clear Calc 21.3 Estimated GFR 13 Random Glucose 130 H (60-115) mg/dL Lactic Acid 2.1 H* (0.5-2.0) mmol/L Calcium 10.0 (8.4-10.2) mg/dL Magnesium 2.0 (1.6-2.6) mg/dL Total Bilirubin 0.9 (0.0-1.0) mg/dL AST 46 H (5-31) U/L ALT 38 H (0-31) U/L Alkaline Phosphatase 102 (39-117) U/L Troponin I High Sens (<3.5-17.0) ng/L Total Protein 7.7 (6.5-8.0) g/dL Albumin 4.3 (3.5-5.0) g/dL Urine Color Urine Appearance Urine pH (5.0-8.0) Ur Specific [place] (1.005-1.025) Urine Protein (NEG-TRACE) MG/DL Urine Glucose (UA) (NEG) MG/DL Urine Ketones (NEG) MG/DL Urine Blood (NEG) Urine Nitrite (NEG) Ur Leukocyte Esterase (NEG) Urine RBC (0) /HPF Urine WBC (0-4) /HPF Ur Squamous Epith Cells /LPF Urine Bacteria /LPF 05/04/21 05/04/21 Range/Units 11:09 14:35 WBC (4.8-10.8) X10*3/uL RBC (4.20-5.50) X10*6/uL Hgb (12.0-16.0) g/dl Hct (37.0-47.0) % MCV (80.0-98.0) fL MCH (27.0-33.0) pg MCHC (31.0-35.0) g/dl RDW (11.0-16.0) % Plt Count (160-400) X10*3/uL MPV (9.4-12.3) fL Immature Gran % (Auto) (0.0-0.4) % Neut % (Auto) (45-73) % Lymph % (Auto) (20-40) % [place] % (Auto) (2-11) % Eos % (Auto) (0-4) % Baso % (Auto) (0-2) % Lymph # (Auto) (1.2-4.9) X10*3/uL [place] # (Auto) (0.1-1.2) X10*3/uL Eos # (Auto) (0.0-0.4) X10*3/uL Baso # (Auto) (0.0-0.2) X10*3/uL Abs Immat Gran (auto) (0.00-0.03) X10*3/uL Absolute Neuts (auto) (2.0-8.3) x10*3/uL Absolute Nucleated RBC (0.0-0.012) X10*3/uL Nucleated RBC % (auto) (0.0-0.2) /100WBC Sodium (135-145) mmol/L Potassium (3.3-5.1) mmol/L Chloride (96-108) mmol/L Carbon Dioxide (22-29) mmol/L Anion Gap (12-20) BUN (9-16) mg/dL Creatinine (0.5-1.4) mg/dL Estim Creat Clear Calc Estimated GFR Random Glucose (60-115) mg/dL Lactic Acid (0.5-2.0) mmol/L Calcium (8.4-10.2) mg/dL Magnesium (1.6-2.6) mg/dL Total Bilirubin (0.0-1.0) mg/dL AST (5-31) U/L ALT (0-31) U/L Alkaline Phosphatase (39-117) U/L Troponin I High Sens 5.2 (<3.5-17.0) ng/L Total Protein (6.5-8.0) g/dL Albumin (3.5-5.0) g/dL Urine Color YELLOW Urine Appearance HAZY Urine pH 6.0 (5.0-8.0) Ur Specific [place] 1.010 (1.005-1.025) Urine Protein 2+ H (NEG-TRACE) MG/DL Urine Glucose (UA) NEG (NEG) MG/DL Urine Ketones NEG (NEG) MG/DL Urine Blood 2+ H (NEG) Urine Nitrite POS H (NEG) Ur Leukocyte Esterase NEG (NEG) Urine RBC 10-14 H (0) /HPF Urine WBC 0-2 (0-4) /HPF Ur Squamous Epith Cells 2+ /LPF Urine Bacteria 3+ /LPF Imaging Data CT scan - abdomen: Attestation: I personally reviewed and interpreted this imaging study as follows: My impression: No acute process. Radiologist's impression: EXAMINATION: CT ABDOMEN AND PELVIS WITHOUT CONTRAST? CLINICAL INFORMATION: Abdominal pain? COMPARISON: CT abdomen and pelvis 10/17/2020 TECHNIQUE: Multidetector volumetric imaging was performed from the superior aspect of the liver through the pubic symphysis. Sagittal and coronal reformatted images were obtained on the technologist's workstation.? This CT examination was performed using dose optimization techniques as appropriate, variously including the following: *Automated exposure control *Adjustment of mA and/or kV according to patient size (this includes techniques or standardized protocols for targeted exams where dose is matched to indication/reason for exam; i.e. extremities or head) *Use of iterative reconstruction technique DLP: 892 mGy-cm FINDINGS: LUNG BASES: The visualized lung bases are unremarkable.? LIVER, GALLBLADDER, AND BILIARY TREE: The liver is normal in size, shape, and attenuation. No focal hepatic lesion or biliary ductal dilatation is present. The gallbladder is unremarkable with no evidence of radiopaque gallstones, gallbladder wall thickening, or obvious pericholecystic inflammatory changes.? PANCREAS: Unremarkable.? SPLEEN: Unremarkable.? ADRENAL GLANDS: Unremarkable.? KIDNEYS AND URETERS: The kidneys are normal in size, shape, and attenuation. No hydronephrosis, hydroureter, or calculi seen. No perinephric stranding. ? BLADDER: Unremarkable.? GASTROINTESTINAL TRACT: The small and large bowel are unremarkable. The appendix is unremarkable. There is a left abdominal solid peritoneal dialysis catheter deep in the pelvis with minimal fluid adjacent to it. ABDOMINAL WALL: No significant hernia is appreciated.? LYMPH NODES: Normal. VASCULAR: Unremarkable. PELVIC VISCERA: There is no free air or free fluid.? OSSEOUS STRUCTURES: No lytic or sclerotic process seen. There is grade 1 anterolisthesis L4 over L5.? CT/CT abdomen pelvis wo con IMPRESSION: No acute intra-abdominal process. No major change compared to previous study 10/17/2020 ? Fleischner guidelines were followed. Dictated By: Francis Fry MD Signed By: Electronically signed by Francis Fry MD 05/04/21 1302 Discharge Plan Discharge Clinical Impression: Abdominal pain, Elevated WBC count Patient Disposition: Home, Self-Care Instructions: Leukocytosis (ED), Abdominal Pain (ED) Additional Instructions: Follow up with your primary care provider. Return to the emergency department immediately if your symptoms worsen or if you develop any dizziness, shortness of breath, difficulty breathing, chest pain, blurry vision, loss of vision, nausea, vomiting, abdominal pain, fever, chills, back pain, or any other complaints. Prescriptions: New cefuroxime axetil 250 mg tablet 250 mg PO ONCE 10 Days Qty: 10 0RF No Action melatonin 5 mg capsule 5 mg PO BEDTIME 90 Days Qty: 90 1RF fluticasone propionate 50 mcg/actuation spray,suspension 1 spray intranasal DAILY Qty: 16 1RF Rx Instructions: administer into each nostril escitalopram oxalate 10 mg tablet 10 mg PO DAILY 90 Days Qty: 90 1RF atorvastatin 20 mg tablet 20 mg PO BEDTIME Qty: 90 1RF sennosides [senna] 8.6 mg tablet 17.2 mg PO BID 30 Days Qty: 120 2RF doxazosin 4 mg tablet 4 mg PO BEDTIME 30 Days Qty: 30 1RF furosemide 20 mg tablet 20 mg PO Q2D 0RF hydralazine 25 mg Tablet 25 mg PO TID Qty: 90 0RF Protocol: Hold for SBP< HOLD for SBP < : 90 sevelamer carbonate 800 mg tablet 1 tab PO TIDWM 0RF gabapentin 300 mg capsule 1 cap PO TID PRN (Reason: Pain (Scale Score 1-3)) 0RF calcitriol 0.25 mcg capsule 0.25 mcg PO DAILY 0RF cyanocobalamin (vitamin B-12) 1,000 mcg Tablet 1,000 mcg PO DAILY 0RF Lokelma 10 gram powder in packet 10 g PO MOWEFR@0900 0RF carvedilol phosphate 10 mg capsule, ER multiphase 24 hr 10 mg PO DAILY 90 Days Qty: 90 3RF isoniazid 300 mg tablet 300 mg PO DAILY 0RF cyclobenzaprine 5 mg tablet 5 mg PO BEDTIME Qty: 14 0RF lidocaine 5 % adhesive patch,medicated 1 patch topical DAILY Qty: 30 0RF Rx Instructions: leave on most painful area for up to 12 hrs diclofenac sodium [Voltaren Arthritis Pain] 1 % gel 2 g topical QID Qty: 100 0RF Rx Instructions: back docusate sodium [Colace] 100 mg capsule 100 mg PO BID 0RF omeprazole magnesium [Prilosec OTC] 20 mg tablet,delayed release (DR/EC) 20 mg PO DAILY@0630 30 Days Qty: 30 6RF ferrous sulfate 325 mg (65 mg iron) tablet,delayed release (DR/EC) 325 mg PO BID 0RF hydralazine 25 mg tablet 25 mg PO TID 0RF meclizine 25 mg tablet 25 mg PO BID PRN0RF buprenorphine HCl [Belbuca] 75 mcg film 75 mcg buccal Q12H 30 Days Qty: 60 0RF Referrals: Rozina Nicole MD [Primary Care Provider] - 2 days Print Language: Arabic
[2021-05-04 10:39] VITALS: BP 122/80; BP 130/76; PULSE 84; PULSE 90; RESP 20; TEMP 36.9; O2SAT 98; BMI 37.8
[2021-05-04 11:14] LABS: MANUAL DIFF FLAG NO
[2021-05-04 11:16] LABS: Basophils Percent Auto 0.3 % (0-2); Eosinophils Percent Auto 0.2 % (0-4); Hemoglobin 11.8 g/dl (12.0-16.0); Imm Gran Abs Auto 0.04 X10*3/uL (0.00-0.03); Imm Gran Pct Auto 0.3 % (0.0-0.4); Lymphocytes Absolute Auto 1.2 X10*3/uL (1.2-4.9); Lymphocytes Percent Auto 9.2 % (20-40); Mean Corpuscular HGB Conc 31.1 g/dl (31.0-35.0); Mean Corpuscular Hemoglobin 27.2 pg (27.0-33.0); Mean Corpuscular Volume 87.6 fL (80.0-98.0); Mean Platelet Volume 9.3 fL (9.4-12.3); Monocytes Absolute Auto 1.1 X10*3/uL (0.1-1.2); Monocytes Percent Auto 8.6 % (2-11); Neutrophils Absolute Auto 10.2 x10*3/uL (2.0-8.3); Neutrophils Percent Auto 81.4 % (45-73); Platelet Count 214 X10*3/uL (160-400); Red Blood Count 4.34 X10*6/uL (4.20-5.50); Red Cell Distribution Width 15.4 % (11.0-16.0); White Blood Count 12.5 X10*3/uL (4.8-10.8)
[2021-05-04 11:34] LABS: Lactic Acid 2.1 mmol/L (0.5-2.0)
[2021-05-04 11:38] LABS: Troponin-I High Sensitivity 5.2 ng/L (<3.5-17.0)
[2021-05-04 11:45] LABS: Alanine Aminotransferase 38 U/L (0-31); Albumin Level 4.3 g/dL (3.5-5.0); Alkaline Phosphatase 102 U/L (39-117); Anion Gap 13 (12-20); Aspartate Amino Transferase 46 U/L (5-31); Bilirubin Total 0.9 mg/dL (0.0-1.0); Blood Urea Nitrogen 19 mg/dL (9-16); Carbon Dioxide 29 mmol/L (22-29); Chloride 101 mmol/L (96-108); Creatinine Clr Calc Pharmacy 21.3; Estimated Glomerular Filt Rate 13; Glucose Random 130 mg/dL (60-115); Potassium 3.9 mmol/L (3.3-5.1); Sodium 139 mmol/L (135-145); Total Protein 7.7 g/dL (6.5-8.0)
[2021-05-04 11:50] VITALS: BP 120/75; PULSE 81; RESP 14; O2SAT 97
[2021-05-04 13:14] LABS: Reflex Lactate? Lactic Acid Added
[2021-05-04 14:53] LABS: Appearance Urine HAZY; Color Urine YELLOW; Glucose Urine UA NEG (NEG); Leukocyte Esterase Urine NEG (NEG); Nitrite Urine POS (NEG); UACC Culture Trigger YES; Urine Blood 2+ (NEG); Urine Ketones NEG (NEG); Urine Protein 2+ MG/DL (NEG-TRACE)
[2021-05-04 15:02] LABS: Squamous Epithelial Cell Urine 2+ /LPF; WBC Urine 0-2 /HPF (0-4)
[2021-05-04 15:03] LABS: Bacteria Urine 3+ /LPF
== END 2021-05-04 15:30 | disposition home or self-care (01) ==
PROVIDERS: Physician Assistant Medical; Emergency Provider Emergency Medicine; PCP Internal Medicine
DX: R10.9 Unspecified abdominal pain (principal); D72.829 Elevated white blood cell count, unspecified; I12.0 Hypertensive chronic kidney disease with stage 5 chronic kidney disease or end stage renal disease; N18.6 End stage renal disease; Z99.2 Dependence on renal dialysis
CPT/HCPCS: 36415; 74176; 80053; 81001; 83605; 83735; 84484; 85025; 87086; 93005; 96360; 96361; 99283; 99284

== ENCOUNTER → 2021-05-08 14:06 | Outpatient (BNVA) | payer OTHER, SELFPAY | PROVIDERS: PCP Family Medicine; Referring Provider Family Medicine; Visit Provider Nurse Practitioner Family | DX: R07.9 Chest pain, unspecified (principal); I12.9 Hypertensive chronic kidney disease with stage 1 through stage 4 chronic kidney disease, or unspecified chronic kidney disease; N18.30 Chronic kidney disease, stage 3 unspecified; R00.2 Palpitations; R20.0 Anesthesia of skin | CPT/HCPCS: 99212 ==

== ENCOUNTER → 2021-05-15 16:03 | Outpatient (BNVA) | payer OTHER, SELFPAY | PROVIDERS: PCP Internal Medicine; Referring Provider Internal Medicine; Visit Provider Nurse Practitioner | DX: K21.9 Gastro-esophageal reflux disease without esophagitis (principal); K59.00 Constipation, unspecified | CPT/HCPCS: 99212 ==

== ENCOUNTER → 2021-05-24 10:26 | Outpatient (BNVA) | payer OTHER, SELFPAY | PROVIDERS: PCP Internal Medicine; Visit Provider Anesthesiology | DX: M54.16 Radiculopathy, lumbar region (principal); M51.26 Other intervertebral disc displacement, lumbar region; M48.00 Spinal stenosis, site unspecified; N18.6 End stage renal disease; R32 Unspecified urinary incontinence; R15.9 Full incontinence of feces; Z79.891 Long term (current) use of opiate analgesic; Z99.2 Dependence on renal dialysis | CPT/HCPCS: 99212 ==

== ENCOUNTER → 2021-05-29 07:15 | Outpatient (REF) | payer OTHER, SELFPAY ==
--- NOTE | 2021-05-29 07:19 | HM_ITS ---
* Total monitoring time 6 days and 23 hours. * Underlying rhythm is sinus. Average rate 85/Min; range 64 to 131/Min. * No atrial fibrillation or flutter or AV blocks or pauses. * Rare supraventricular ectopy with minimal burden. * Rare ventricular ectopy with minimal burden. * Patient had reported several symptoms including dizziness, near-syncope, shortness of breath, chest discomfort, rapid/fast heartbeat at different times. However, no clear arrhythmias to account for the above. MTDD
== END ==
LOC: HO.CARD 07:15
PROVIDERS: Visit Provider Nurse Practitioner Family
DX: R00.2 Palpitations (principal)
CPT/HCPCS: 93242

== ENCOUNTER 2021-06-12 11:00 | Outpatient (RCR) | payer OTHER, SELFPAY ==
[2021-06-01 13:02] VITALS: BP 137/76; PULSE 83; O2SAT 99
--- NOTE | 2021-06-01 15:10 | MHC.PT.EP ---
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 Pt HAS A H/O END STAGE RENAL DISEASE AND CURRENTLY BEING MONITORED FOR CARDIAC SXS. Pt HAS DECR POSTURAL AWARENESS, LIMTED TRUNK AND HIP MOBILITY, (+) BELLY BREATHING (H/O INTERMITTENT INCONTINENCE), PROX LEs WEAKNESS, AND PAIN IN NELA LS W INTERM RADIC SXS. 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 SHE WOULD BENEFIT FROM PT TO ADDRESS THE ABOVE FINDINGS, PAIN MGMT, DEV SELF- SX MGMT STRATEGIES, AND ASSIST Pt W MORE EFFICIENT FUNCTIONAL MOB/ ADL TOLERANCE. 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 Manual therapy to restore motion and function. Therapeutic exercise to improve strength and flexibility. Neuromuscular re-education for posture and balance. Therapeutic activities to return to functional activities of daily living. Electronically signed by: Safia Garza,PT Please sign and return to therapist. Thank you for your referral.
--- NOTE | 2021-07-18 10:49 | MHC.PT.DC ---
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 WE HAVE EDUC Pt RE POSTURE/ SELF- SX MGMT TECHN, AND PAIN MGMT. Pt D/C DUE TO POOR ATTENDANCE W REMAINING SCHED APPTS. Electronically signed by: Safia Garza,PT Please sign and return to therapist. Thank you for your referral.
== END 2021-07-18 10:48 | disposition home or self-care (01) ==
LOC: HO.PT 11:00
PROVIDERS: PCP Internal Medicine; Visit Provider Anesthesiology
DX: M47.816 Spondylosis without myelopathy or radiculopathy, lumbar region (principal)
CPT/HCPCS: 97110; 97162

== ENCOUNTER → 2021-07-05 12:41 | Outpatient (BNVA) | payer OTHER, SELFPAY | PROVIDERS: PCP Internal Medicine; Referring Provider Internal Medicine; Visit Provider Internal Medicine Cardiovascular Disease | DX: R07.89 Other chest pain (principal) | CPT/HCPCS: 99212 ==

== ENCOUNTER 2021-07-17 11:03 | Outpatient (REF) | payer OTHER, SELFPAY | END 2021-07-17 11:04 | disposition home or self-care (01) | LOC: HO.MAMMO 11:03 | PROVIDERS: PCP Student in an Organized Health Care Education/Training Program; Visit Provider Surgery | DX: Z13.89 Encounter for screening for other disorder (principal) ==

== ENCOUNTER 2021-09-13 14:00 | Outpatient (REF) | payer OTHER, SELFPAY ==
--- NOTE | ~2021-09-13 | MM_ITS ---
EXAMINATION: MM DIAGNOSTIC DIGITAL BREAST TOMOSYNTHESIS, BILATERAL CLINICAL INFORMATION: Due for yearly. Benign right ultrasound-guided core biopsy 06/22/2020 (benign breast tissue with apocrine cyst formation. No atypia or malignancy). Follow-up probable dystrophic calcification at the biopsy site noted on prior study. The lifetime risk of breast cancer based on the Tyrer-Cuzick Model is 7%. COMPARISON: Mammography: 01/10/2021 (BI-RADS 3), 06/22/2020, 06/15/2020, 05/26/2020, 06/28/2016; right breast ultrasound 06/15/2020, ultrasound-guided right breast core biopsy 06/22/2020. TECHNIQUE: Digital breast tomosynthesis is performed in both the craniocaudal and mediolateral oblique views along with computer-aided detection (CAD). Synthesized 2D images are generated from the tomosynthesis. Additional right magnification CC and right magnification ML views are obtained. FINDINGS: There are scattered areas of fibroglandular density (ACR BI-RADS breast composition Category b). Parenchymal pattern is similar to prior studies. There is no significant mass or architectural abnormality or abnormal calcifications. The axilla and skin contours are unremarkable. There is a biopsy clip marker overlying nodule mid 9:00 right breast. The nodule is decreased in size. There is benign coarse calcification in the nodule. The axilla are unremarkable. The skin contours are smooth. Results are provided to the patient at time of visit by the technologist. MM/MM tomosynthesis diagnostic BI IMPRESSION: -No mammographic evidence of malignancy. -Incidental benign coarse dystrophic calcification in the benign nodule previously biopsied 2020. ASSESSMENT: BI-RADS 2: Benign RECOMMENDATION: Routine annual mammography screening. This patient's information was entered into a reminder system with a target due date for their next mammogram.
== END 2021-09-13 14:01 | disposition home or self-care (01) ==
LOC: HO.MAMMO 14:00
PROVIDERS: PCP Internal Medicine; Visit Provider Internal Medicine
DX: R92.1 Mammographic calcification found on diagnostic imaging of breast (principal)
CPT/HCPCS: 77062; 77066

== ENCOUNTER 2021-09-27 09:48 | Day surgery (SDC) | payer OTHER, SELFPAY ==
--- NOTE | 2021-09-26 08:58 | P.CONAN_ITS ---
Documented by User: Yovana Huerta NP 09/26/21 09:03 HPI - Anesthesia Eval Consult details Narrative: 51yo F for Bilateral diagnostic Medial Branch Block,L3,L4,DR,L5 ESRD on HD [facility] Active Problems Active Problems: All Active Problems (Updated 09/21/21 @ 09:30 by Delaney Pagan, ALEX) Anxiety (Acute) Physical exam (Acute) Tubular adenoma of colon (Acute) LLQ abdominal pain (Acute) Constipation (Acute) Angina pectoris syndrome (Acute) Nasal polyp, benign (Acute) Fatigue (Acute) Peritoneal dialysis catheter in place (Acute) Physical exam (Acute ~02/14/21) Chronic low back pain (Acute) Anxiety and depression (Acute) Urinary and fecal incontinence (Acute) ESRD on dialysis (Acute) Palpitations (Acute) Numbness (Acute) Physical exam (Acute) Polyp of right nasal cavity (Acute) Non-cardiac chest pain (Acute) Chronic kidney disease, stage V requiring chronic dialysis (Acute) Spondylosis without myelopathy or radiculopathy, lumbar region (Acute) Spinal stenosis (Acute) 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 (Acute) Lumbar back pain with radiculopathy affecting left lower extremity (Acute) GERD (gastroesophageal reflux disease) (Acute) Polyarthralgia (Acute) Dyslipidemia (Acute) Anemia (Acute) Family history of ovarian cancer (Acute) Abnormal mammogram of right breast (Acute) Hospital discharge follow-up (Acute) Anxiety and depression (Acute) Chest pain (Acute) Obesity (BMI 30-39.9) (Acute) HTN (hypertension) (Acute) Chronic renal insufficiency (Acute) Past Medical History Medical History Abnormal mammogram of right breast Anemia Anxiety and depression Back pain Chest pain Chronic renal insufficiency Dyslipidemia Family history of ovarian cancer GERD (gastroesophageal reflux disease) 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 History of headache History of postoperative nausea Hospital discharge follow-up HTN (hypertension) Lab test negative for COVID-19 virus Lumbar back pain with radiculopathy affecting left lower extremity Nephrosclerosis Obesity (BMI 30-39.9) Polyarthralgia Renal interstitial fibrosis Spinal stenosis Spondylosis without myelopathy or radiculopathy, lumbar region Family History Family History Father Diabetes Mother Asthma Hypertension Ovarian cancer Maternal Grandfather Myocardial infarction Paternal Grandmother Stroke Family history of problems with anesthesia: No Surgical History Surgical History Fistula History of endometrial ablation Hx of colonoscopy Hx of hysterectomy Hx of tubal ligation History of Problems with Anesthesia: No Social History Social History Household Members: Spouse and Children Housing: Apartment Do you presently have visiting nurse or other home services: No Alcohol intake: current Alcohol intake frequency: holidays/special occasions only Alcohol type: beer Patient Tobacco Use Status: Former Tobacco user Tobacco use type: Cigarette Years Smoked: 10+ e-Cigarette/Vaping Use: Never Used Second Hand Smoke Exposure: No Use of substances other than those prescribed or required for medical reasons: No Are you DNR?: No Advance Directives: No Advance Directives Information Provided: Yes service: No Current occupational status: employed Cognitive needs: No Hearing needs: No Vision needs: Yes (reading glasses) Meds Allergies Allergy/AdvReac Type Severity Reaction Status Date / Time nifedipine Allergy Intermediate hives, leg Verified 09/21/21 09:21 edema Home Medications Medication Instructions Recorded Confirmed Last Taken Type ferrous sulfate 325 mg (65 mg 325 mg PO BID 05/11/20 09/21/21 10/10/20 History iron) tablet,delayed release docusate sodium 100 mg capsule 100 mg PO BID Constipation 05/19/20 09/21/21 10/17/20 History (Colace) calcitriol 0.25 mcg capsule 0.25 mcg PO DAILY 10/17/20 09/21/21 10/17/20 History cyanocobalamin (vitamin B-12) 1,000 mcg PO DAILY 10/17/20 09/21/21 10/17/20 History 1,000 mcg tablet isoniazid 300 mg tablet 300 mg PO DAILY 11/13/20 09/21/21 09/27/21 History pyridoxine (vitamin B6) 50 mg 50 mg PO DAILY 06/06/21 09/21/21 Unknown History tablet buspirone 5 mg tablet 5 mg PO TID anxiety 07/05/21 09/21/21 09/27/21 History carvedilol 3.125 mg tablet 3.125 mg PO BID 07/05/21 09/21/21 09/27/21 History citalopram 20 mg tablet 20 mg PO DAILY 07/05/21 09/21/21 09/27/21 History ergocalciferol (vitamin D2) 1,250 1,250 mcg PO QWEEK 07/05/21 09/21/21 Unknown History mcg (50,000 unit) capsule (Vitamin D2) sevelamer carbonate 800 mg tablet 1,600 mg PO TID 07/05/21 09/21/21 Unknown History vitamin B comp no.3-folic acid 1 1 tab PO DAILY 07/05/21 09/21/21 Unknown History mg-vit C 60 mg-biotin 300 mcg tablet (Lesly-Toni Rx) Exam Exam Date and Time: September 26, 2021 0858 Pertinent Lab Results Pertinent Lab Results: Laboratory Tests 05/04/21 05/04/21 11:09 11:09 WBC 12.5 H Hgb 11.8 L Hct 38.0 Plt Count 214 Sodium 139 Potassium 3.9 Chloride 101 Carbon Dioxide 29 BUN 19 H Creatinine 3.79 H Narrative Narrative: EKG 04/2021 Vent. Rate : 086 BPM ? ? Atrial Rate : 086 BPM ?? P-R Int : 130 ms? QRS Dur : 090 ms ? ? QT Int : 382 ms ? ? ? P-R-T Axes : 015 029 044 degrees ?? QTc Int : 457 ms ? Normal sinus rhythm Nonspecific ST abnormality Abnormal ECG When compared with ECG of 17-OCT-2020 19:20, Nonspecific T wave abnormality, worse in Lateral leads Holter 05/2021 * Total monitoring time 6 days and 23 hours. * Underlying rhythm is sinus.? Average rate 85/Min; range 64 to 131/Min. * No atrial fibrillation or flutter or AV blocks or pauses. * Rare supraventricular ectopy with minimal burden. * Rare ventricular ectopy with minimal burden. * Patient had reported several symptoms including dizziness, near-syncope, shortness of breath, chest discomfort, rapid/fast heartbeat at different times.? However, no clear arrhythmias to account for the above. ECHO 05/2020 Conclusions: -? 1. Normal LV systolic function with mild LVH with pseudonormal filling pattern? 2. Normal cardiac valvular Doppler ? 3. Normal RV systolic pressure ? 4. No pericardial effusion ? ?? NM krishan perf SPECT rest & str 05/2020 Impression: ? 1.? Myocardial perfusion imaging study shows normal myocardial perfusion. No evidence of any ischemia or infarction. 2.? Gated LVEF is 66% during stress and 64% during rest. 3. Transient ischemic dilatation not present. ? EKG component of the test reported separately. 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 History of headache History of postoperative nausea Hospital discharge follow-up HTN (hypertension) Lab test negative for COVID-19 virus Lumbar back pain with radiculopathy affecting left lower extremity Nephrosclerosis Obesity (BMI 30-39.9) Polyarthralgia Renal interstitial fibrosis Spinal stenosis Spondylosis without myelopathy or radiculopathy, lumbar region Family History Family History Father Diabetes Mother Asthma Hypertension Ovarian cancer Maternal Grandfather Myocardial infarction Paternal Grandmother Stroke Surgical History Surgical History Fistula History of endometrial ablation Hx of colonoscopy Hx of hysterectomy Hx of tubal ligation Social History Social History Household Members: Spouse and Children Housing: Apartment Do you presently have visiting nurse or other home services: No Alcohol intake: current Alcohol intake frequency: holidays/special occasions only Alcohol type: beer Patient Tobacco Use Status: Former Tobacco user Tobacco use type: Cigarette Years Smoked: 10+ e-Cigarette/Vaping Use: Never Used Second Hand Smoke Exposure: No Use of substances other than those prescribed or required for medical reasons: No Are you DNR?: No Advance Directives: No Advance Directives Information Provided: Yes service: No Current occupational status: employed Cognitive needs: No Hearing needs: No Vision needs: Yes (reading glasses) Meds Allergies Allergy/AdvReac Type Severity Reaction Status Date / Time nifedipine Allergy Intermediate hives, leg Verified 09/21/21 09:21 edema Home Medications Medication Instructions Recorded Confirmed Last Taken Type ferrous sulfate 325 mg (65 mg 325 mg PO BID 05/11/20 09/21/21 10/10/20 History iron) tablet,delayed release docusate sodium 100 mg capsule 100 mg PO BID Constipation 05/19/20 09/21/21 10/17/20 History (Colace) calcitriol 0.25 mcg capsule 0.25 mcg PO DAILY 10/17/20 09/21/21 10/17/20 History cyanocobalamin (vitamin B-12) 1,000 mcg PO DAILY 10/17/20 09/21/21 10/17/20 History 1,000 mcg tablet isoniazid 300 mg tablet 300 mg PO DAILY 11/13/20 09/21/21 09/27/21 History pyridoxine (vitamin B6) 50 mg 50 mg PO DAILY 06/06/21 09/21/21 Unknown History tablet buspirone 5 mg tablet 5 mg PO TID anxiety 07/05/21 09/21/21 09/27/21 History carvedilol 3.125 mg tablet 3.125 mg PO BID 07/05/21 09/21/21 09/27/21 History citalopram 20 mg tablet 20 mg PO DAILY 07/05/21 09/21/21 09/27/21 History ergocalciferol (vitamin D2) 1,250 1,250 mcg PO QWEEK 07/05/21 09/21/21 Unknown History mcg (50,000 unit) capsule (Vitamin D2) sevelamer carbonate 800 mg tablet 1,600 mg PO TID 07/05/21 09/21/21 Unknown History vitamin B comp no.3-folic acid 1 1 tab PO DAILY 07/05/21 09/21/21 Unknown History mg-vit C 60 mg-biotin 300 mcg tablet (Lesly-Toni Rx) Exam Airway Mallampati Class: II TM Dist: >3cm Neck ROM: Full Loose/Missing/Broken Teeth: Yes and Upper Heart: rrr Lungs: clear Assessment and Plan Final Anesthetic Review NPO: Yes ASA Class: IV Final Preanesthetic Review: No Changes in Pt Med Stat, Meds/Allgs Chart Reviewed and Anes Risks/Benef Reviewed Patient Risk: High Procedure Risk: Low Anesthetic Plan Anesthetic Plan: MAC: Disposition: Standard PACU
--- NOTE | ~2021-09-27 | FL_ITS ---
EXAMINATION: XR FLUOROSCOPY WITH IMAGES CLINICAL INFORMATION: Bilateral medial branch block. COMPARISON: CT abdomen and pelvis 05/04/2021. TECHNIQUE: Fluoroscopy performed by Dr. Mannie Raymond. Fluoroscopy time: 41 seconds. Cumulative Dose: 18.1 mGy. Images: 6. FINDINGS: There are spinal needles overlying the bilateral outer L3, L4, and L5 neural foramen. There is contrast seen in the respective nerve sheaths. Some early transforaminal epidural extension is suggested. No visible vascular communication. FL/FL guidance in OR IMPRESSION: Fluoroscopy for pain management procedures.
[2021-09-27 10:13] VITALS: BMI 37.9
[2021-09-27 10:20] VITALS: BP 106/61; PULSE 77; RESP 18; TEMP 36.3; O2SAT 96
[2021-09-27 10:38] LABS: Anion Gap 16 (12-20); Carbon Dioxide 32 mmol/L (22-29); Chloride 100 mmol/L (96-108); Potassium 4.6 mmol/L (3.3-5.1); Sodium 143 mmol/L (135-145)
[2021-09-27] MEDS: 0.9 % Sodium Chloride 1,000 ML 50 ML IVCONT (10:48)
--- NOTE | 2021-09-27 11:41 | MHC.SHP ---
Pre-Procedural Eval Section A Date of Service: 09/27/21 The patient is an INPATIENT: No Changes since office visit: Yes Patient answered all questions The History & Physical has been completed within 30 days and I have reviewed it.: No Section B Chief Complaint: radiculopathy Details of Present Illness: spondylosis lumbar spine without myelo/radiculopathy Relevant Family History (Specify if Yes): No Relevant Social History: Other (specify) Present Medications: None Medical History: Significant History History of Previous Operations: No relevant previous surgery Allergies: Allergies Allergy/AdvReac Type Severity Reaction Status Date / Time ibuprofen Allergy Severe Unknown Verified 09/27/21 11:16 nifedipine Allergy Intermediate hives, leg Verified 09/21/21 09:21 edema Review of Systems Sugical H&P ROS: Negative: Cardiovascular, Respiratory, Neurological, Psychiatric, Hem-Onc, Allergic/Immunologic, Gastrointestinal, Musculoskeletal, Integumentary, Endocrine and Eyes/Ears/Nose/Throat and Yes, Specify: Constitution (Morbid obesity) and Genitourinary (ESRD on HD) Exam Surgical H&P Exam: Normal: HEENT, Normal: Heart, Normal: Lungs, Normal: Skin and Normal: Neurological and Significant Findings: Extremities (AVF left upper extremity) and Significant Findings: Abdomen (enarged 2 to i/a and s/q fat) Plan Diagnosis/Plan: Unchanged I have reviewed the history and physical and performed a pertinent physical examination on my patient. No changes have occurred unless specified.I will perform diagnostic medial branch block - lumbar 3, lumbar 4 and dorsal ramus lumbar 5 bilateral
[2021-09-27 12:33] VITALS: BP 96/56; PULSE 79; RESP 16; TEMP 36.7; O2SAT 94
--- NOTE | 2021-09-27 12:34 | P.BOP_ITS ---
Brief Operative Note Date of Service: 09/27/21 Pre-op diagnosis: spondylosis of lumbar spine without myelo/radiculopathy Post-op diagnosis: same Procedure: Medial branch block L3- L4- L5 diagnostic bilateral Surgeon: Mannie Raymond MD Anesthesia: MAC Was an Purchase Price Analyst used for this Procedure?: No Estimated blood loss (mL): 0 Pathology: none sent Condition: stable Disposition: PACU
--- NOTE | 2021-09-27 12:37 | P.OP_ITS ---
Operative Note Operative Note Date of Service: 09/27/21 Narrative: Diagnostic bilateral lumbar L3-L4-l5 MBBs. ? Informed consent was explained to the patient. All questions were explained and? answered.? The patient was taken inside the operating room where the patient was positioned prone on the operating table with the pillow under her abdomen.. Time-out was performed delineating correct site, side, the nature of the procedure, patient's allergy, preoperative antibiotic if needed.? All operating room staff was participating in OR time-out procedure. ? The lower back was prepped with ChloraPrep and draped with sterile towels.? C- arm was brought over the operating field and square picture of L4 and L5 vertebrae? were delineated on the screen.? Point of interest were delineated as bilateral confluence of the silhouette of the superior articular process of L4 with transverse process of L4 respectively as well as bilateral confluence of the silhouette of the superior articular process of L5 is corresponding transfer process of L5, as well as confluence of the superior articular process of S1 bilaterally with sacral ala The projections of the point of interests to the skin was injected with small amount lidocaine 1%. about 1 ml.? 22 gauge 5 inch QP spinal needles were driven to the point of interest in tunnel vision fashion. After needles gently contacted the bone at the point of interests contrast was injected and it did not demonstrate intrathecal or intravascular uptake.? After that injection of naropin 0.5% less than 1.0 mL into each needle position was performed ? ?Upon completion of the injections? needles were removed and sterile dressings were applied patient was taken outside of the operating room to recovery room where she recovered uneventfully.?
[2021-09-27 12:47] VITALS: BP 114/62; PULSE 79; RESP 16; TEMP 36.7; O2SAT 97
== END 2021-09-27 13:27 | disposition home or self-care (01) ==
PROVIDERS: Nurse Practitioner; PCP Internal Medicine; Visit Provider Anesthesiology
PROC: (CPT 64493; principal; 2021-09-27 11:30)
DX: M54.16 Radiculopathy, lumbar region (principal); M51.26 Other intervertebral disc displacement, lumbar region; M51.36 Other intervertebral disc degeneration, lumbar region; M48.00 Spinal stenosis, site unspecified; I12.0 Hypertensive chronic kidney disease with stage 5 chronic kidney disease or end stage renal disease; N18.6 End stage renal disease; Z99.2 Dependence on renal dialysis; R32 Unspecified urinary incontinence; R15.9 Full incontinence of feces; R07.9 Chest pain, unspecified; R00.2 Palpitations; E66.9 Obesity, unspecified; Z68.37 Body mass index [BMI] 37.0-37.9, adult; Z87.891 Personal history of nicotine dependence; Z79.899 Other long term (current) drug therapy; Z88.8 Allergy status to other drugs, medicaments and biological substances
CPT/HCPCS: 64493; 64494; 36415; 80051; J2250; J2795; J3300

== ENCOUNTER 2022-01-04 09:48 | Emergency (ER) | payer OTHER, SELFPAY ==
[2022-01-04 09:55] VITALS: BP 140/70; PULSE 73; RESP 16; TEMP 36.6; O2SAT 98; BMI 36.6
--- OUTSIDE RECORDS SUMMARY | 2022-01-04 10:06 | XMS_ITS | Continuity of Care Document ---
:1970 Author Organization [facility] Address [address] [place] [address]- Care Team Providers Name Role Phone Jatin Lang MD, Rozina Knight Primary Care Physician Encounter [facility] [place] [id number] Date(s): 10/23/21 - 11/22/21 [facility] [address] [address]- Attending Physician: Vadim Christine Admitting Physician: AdmtrVadim Referring Physician: Admtr, Ar8 Allergies, Adverse Reactions, Alerts Substance Reaction Severity Status NIFEdipine Active Medications busPIRone 5 mg oral tablet 5 mg, 1, tablet, By Mouth, 3 times a day, # 90 tablet, Refills 0, Maintenance, 07/26/21 13:17:00 EDT, Partial fill upon patient request if the prescription is for a schedule II opioid drug. Start Date: 07/26/21 Status: Orderedcalcitriol 0.25 mcg oral capsule 1 capsule = 0.25 mcg, By Mouth, Daily, # 90 capsule, 0 Refills, Maintenance, 07/26/21 13:14:00 EDT, Capsule, Partial fill upon patient request if the prescription is for a schedule II opioid drug. Start Date: 07/26/21 Status: Orderedcalcitriol 0.25 mcg oral capsule See Instructions, 1 capsule By Mouth 3 times a week, 0 Refills, Maintenance, 05/31/20 12:25:00 EDT, Partial fill upon patient request if the prescription is for a schedule II opioid drug. Start Date: 05/31/20 Status: Orderedcarvedilol 3.125 mg oral tablet 6.25 mg, 2, tablet, By Mouth, 2 times a day, # 60 tablet, Refills 0, Maintenance, 07/26/21 13:14:00 EDT, Partial fill upon patient request if the prescription is for a schedule II opioid drug. Start Date: 07/26/21 Status: Orderedcitalopram 20 mg oral tablet 20 mg, 1, tablet, By Mouth, Daily, # 30 tablet, Refills 0, Maintenance, 07/26/21 13:17:00 EDT, Partial fill upon patient request if the prescription is for a schedule II opioid drug. Start Date: 07/26/21 Status: Orderedcyclobenzaprine 5 mg oral tablet 1 tablet = 5 mg, By Mouth, Daily at bedtime, 0 Refills, Maintenance, 07/26/21 13:15:00 EDT, Partial fill upon patient request if the prescription is for a schedule II opioid drug. Start Date: 07/26/21 Status: Ordereddiclofenac 1% topical gel 1 application, Topically, 4 times a day, # 100 Gm, 0 Refills, Maintenance, 07/26/21 13:15:00 EDT, Gel, Partial fill upon patient request if the prescription is for a schedule II opioid drug. Start Date: 07/26/21 Status: Ordereddoxazosin 4 mg oral tablet 1 tablet = 4 mg, By Mouth, Daily at bedtime, # 30 tablet, 0 Refills, Maintenance, 05/31/20 12:33:00 EDT, Tablet, Partial fill upon patient request if the prescription is for a schedule II opioid drug. Start Date: 05/31/20 Status: Orderedergocalciferol 19907 iu oral capsule 50,000 International_Units, 1, capsule, By Mouth, Every week, # 12 capsule, Refills 0, Maintenance, 07/26/21 13:14:00 EDT, Partial fill upon patient request if the prescription is for a schedule II opioid drug. Start Date: 07/26/21 Stop Date: 10/18/21 Status: Orderedferrous fumarate 325 mg oral tablet 2 tablet = 650 mg, By Mouth, Daily, # 30 tablet, 0 Refills, Maintenance, 07/26/21 13:17:00 EDT, Tablet, Partial fill upon patient request if the prescription is for a schedule II opioid drug. Start Date: 07/26/21 Status: Orderedfurosemide 20 mg oral tablet 80 mg, 4, tablet, By Mouth, Daily, Refills 0, Maintenance, 05/31/20 12:33:00 EDT, Partial fill upon patient request if the prescription is for a schedule II opioid drug. Start Date: 05/31/20 Status: OrderedhydrALAZINE 25 mg oral tablet 25 mg, 1, tablet, By Mouth, 3 times a day, # 90 tablet, Refills 0, Maintenance, 05/31/20 12:30:00 EDT, Partial fill upon patient request if the prescription is for a schedule II opioid drug. Start Date: 05/31/20 Status: Orderedisoniazid 300 mg oral tablet 1 tablet = 300 mg, By Mouth, Daily, Bottles 5-9, # 30 tablet, 4 Refills, Maintenance, 05/02/21 17:19:00 EDT, [facility], Partial fill upon patient request if the prescription is for a schedule II opioid drug., 102.22, kg, 08/30/20 11:2... Start Date: 05/02/21 Stop Date: 09/29/21 Status: OrderedLipitor 20 mg oral tablet 1 tablet = 20 mg, By Mouth, Daily, # 30 tablet, 0 Refills, Maintenance, 07/26/21 13:17:00 EDT, Tablet, Partial fill upon patient request if the prescription is for a schedule II opioid drug. Start Date: 07/26/21 Status: Orderedmeclizine 25 mg oral tablet 1 tablet = 25 mg, By Mouth, 2 times a day, # 60 tablet, 0 Refills, Maintenance, 05/31/20 12:30:00 EDT, Tablet, Partial fill upon patient request if the prescription is for a schedule II opioid drug. Start Date: 05/31/20 Status: Orderedmirtazapine 15 mg oral tablet 1 tablet = 15 mg, By Mouth, Daily at bedtime, # 90 tablet, 0 Refills, Maintenance, 07/26/21 13:17:00EDT, Tablet, Partial fill upon patient request if the prescription is for a schedule II opioid drug. Start Date: 07/26/21 Status: OrderedMultivitamin 1 tablet, By Mouth, Daily, 0 Refills, Maintenance, 07/26/21 13:16:00 EDT, Partial fill upon patient request if the prescription is for a schedule II opioid drug. Start Date: 07/26/21 Status: Orderedomeprazole 20 mg oral enteric coated capsule 1 capsule = 20 mg, By Mouth, Daily, # 30 capsule, 0 Refills, Maintenance, 07/26/21 13:16:00 EDT, EC Capsule, Partial fill upon patient request if the prescription is for a schedule II opioid drug. Start Date: 07/26/21 Status: Orderedpyridoxine 50 mg oral tablet 50 mg, 1, tablet, By Mouth, Daily, Bottles 5-9, # 30 tablet, Refills 4, Tot. Refills 4, Maintenance,05/02/21 13:26:00 EDT, Route to Pharmacy Electronically, [facility], Partial fill upon patient request if the prescription is for a sc... Start Date: 05/02/21 Stop Date: 09/29/21 Status: OrderedSenna 8.6 mg oral tablet 8.6 mg, 1, tablet, By Mouth, Daily at bedtime, Refills 0, Maintenance, 05/31/20 12:24:00 EDT, Partial fill upon patient request if the prescription is for a schedule II opioid drug. Start Date: 05/31/20 Status: Orderedsevelamer carbonate 0.8 g oral powder for reconstitution 2 each = 1.6 Gm, By Mouth, 3 times a day, # 540 each, 0 Refills, Maintenance, 07/26/21 13:17:00 EDT,[facility], Partial fill upon patient request if the prescription is for a schedule II opioid drug. Start Date: 07/26/21 Status: Ordered Problem List Condition Confirmation Course Effective Dates Status Health Stat us Informant Latent Confirmed Active tuberculosis1, 2 1Inconsistent treatment.---- Closed Pt started INH 300mg and 50mg B6 therapy on 11/09/2020. Patient Care team information PersonnelName: Jatin Lang MD , Rozina Knight Address: Address: [address] [place] [address]-
--- OUTSIDE RECORDS SUMMARY | 2022-01-04 10:06 | XMS_ITS | Continuity of Care Document ---
:1970 Author Organization [facility] Address [address] [place] [address]- Care Team Providers Name Role Phone Jatin Lang MD, Rozina Knight Primary Care Physician Encounter [facility] [place] Date(s): 08/30/20 - 09/29/20 [facility] [address] [address]- Medications calcitriol 0.25 mcg oral capsule See Instructions, 1 capsule By Mouth 3 times a week, 0 Refills, Maintenance, 05/31/20 12:25:00 EDT, Partial fill upon patient request if the prescription is for a schedule II opioid drug. Start Date: 05/31/20 Status: Orderedcarvedilol 10 mg oral capsule, extended release 1 capsule = 10 mg, By Mouth, Daily in AM, # 30 capsule, 0 Refills, Maintenance, 05/31/20 12:24:00 EDT, CR Capsule, Partial fill upon patient request if the prescription is for a schedule II opioid drug. Start Date: 05/31/20 Status: Ordereddoxazosin 4 mg oral tablet 1 tablet = 4 mg, By Mouth, Daily at bedtime, # 30 tablet, 0 Refills, Maintenance, 05/31/20 12:33:00 EDT, Tablet, Partial fill upon patient request if the prescription is for a schedule II opioid drug. Start Date: 05/31/20 Status: Orderedesomeprazole 20 mg oral enteric coated capsule 1 capsule = 20 mg, By Mouth, Daily, # 30 capsule, 0 Refills, Maintenance, 05/31/20 12:28:00 EDT, EC Capsule, Partial fill upon patient request if the prescription is for a schedule II opioid drug. Start Date: 05/31/20 Status: Orderedfurosemide 20 mg oral tablet 20 mg, 1, tablet, By Mouth, Every other day, Refills 0, Maintenance, 05/31/20 12:33:00 EDT, Partial [...] II opioid drug. Start Date: 05/31/20 Status: Orderedmeclizine 25 mg oral tablet 1 tablet = 25 mg, By Mouth, 2 times a day, # 60 tablet, 0 Refills, Maintenance, 05/31/20 12:30:00 EDT, Tablet, Partial fill upon patient request if the prescription is for a schedule II opioid drug. Start Date: 05/31/20 Status: Orderedrifampin 300 mg oral capsule 2 capsule = 600 mg, By Mouth, Daily, Please deliver to [facility] Clinic, # 60 capsule, 3 Refills, Maintenance, 08/30/20 17:58:00 EDT, [facility], Partial fill upon patient request if the prescription is for a schedule II opioid drug., 102.22,... Start Date: 08/30/20 Stop Date: 12/28/20 Status: OrderedSenna 8.6 mg oral tablet 8.6 mg, 1, tablet, By Mouth, Daily at bedtime, Refills 0, Maintenance, 05/31/20 12:24:00 EDT, Partial fill upon patient request if the prescription is for a schedule II opioid drug. Start Date: 05/31/20 Status: Ordered Problem List Condition Effective Dates Status Health Status Informant Latent tuberculosis(Confirmed) Active
--- OUTSIDE RECORDS SUMMARY | 2022-01-04 10:06 | XMS_ITS | Continuity of Care Document ---
:1970 Author Organization [facility] Address [address] [place] [address]- Care Team Providers Name Role Phone Jatin Lang MD, Rozina Knight Primary Care Physician [id number] Date(s): 06/20/21 - 07/26/21 [facility] [address] [address]- Attending Physician: Heidi Deleon MD Admitting Physician: Heidi Deleon MD Medications busPIRone 5 mg oral tablet 5 [...] opioid drug. Start Date: 05/31/20 Status: Orderedergocalciferol 58314 iu oral capsule 50,000 International_Units, 1, capsule, [...] tablet, 4 Refills, Maintenance, 05/02/21 17:19:00 EDT, [facility], Partial fill upon patient request if [...] Maintenance,05/02/21 13:26:00 EDT, Route to Pharmacy Electronically, [facility], Partial fill upon patient request if [...] Date: 07/26/21 Status: Ordered Problem List Condition Effective Dates Status Health Status Informant Latent tuberculosis(Confirmed)1, 2 Active 1Inconsistent treatment.---- Closed Pt started INH 300mg and 50mg B6 therapy on 11/09/2020.
--- OUTSIDE RECORDS SUMMARY | 2022-01-04 10:06 | XMS_ITS | Continuity of Care Document ---
:1970 Author Organization [facility] Address [address] [place] [address]- Care Team Providers Name Role Phone Jatin Lang MD, Rozina Knight Primary Care Physician [place] [facility] [place] 12[place]14/20 - 01/19/21 [facility] [address] [address]- Attending Physician: Heidi Deleon MD Admitting Physician: Heidi Deleon MD Medications calcitriol 0.25 mcg oral capsule See [...] tablet = 300 mg, By Mouth, Daily, for 30 days, # 30 tablet, 3 Refills, Acute 02/28/21 10:35:00 EST, 10/31/20 10:35:00 EDT, Tablet, [facility], Partial fill upon patient request if theprescription is for a schedule II opioid drug., 1... Start Date: 10/31/20 Stop Date: 02/28/21 Status: Orderedmeclizine 25 mg oral tablet 1 tablet = 25 mg, By Mouth, 2 times a day, # 60 tablet, 0 Refills, Maintenance, 05/31/20 12:30:00 EDT, Tablet, Partial fill upon patient request if the prescription is for a schedule II opioid drug. Start Date: 05/31/20 Status: OrderedSenna 8.6 mg oral tablet 8.6 mg, 1, tablet, By Mouth, Daily at bedtime, Refills 0, Maintenance, 05/31/20 12:24:00 EDT, Partial fill upon patient request if the prescription is for a schedule II opioid drug. Start Date: 05/31/20 Status: Ordered Problem List Condition Effective Dates Status Health Status Informant Latent tuberculosis(Confirmed) Active
--- OUTSIDE RECORDS SUMMARY | 2022-01-04 10:06 | XMS_ITS | Continuity of Care Document ---
:1970 Author Organization [facility] Address [address] [place] [address]- Care Team Providers Name Role Phone Jatin Lang MD, Bren Knight Primary Care Physician En[facility] [place] Date(s): 03/23/20 - 05/05/20 [facility] [address] [place] [address]- Attending Physician: Ramon Mast MD Admitting Physician: Ramon Mast MD Medications isoniazid 300 mg oral tablet See Instructions, 35, 0, 0, 02/18/06 10:24:53, 1 tablet By Mouth Daily, Print SHAUNNA Number, [id number] [place] [address], Constant Indicator Start Date: 02/18/06 Status: Ordered
--- OUTSIDE RECORDS SUMMARY | 2022-01-04 10:06 | XMS_ITS | Continuity of Care Document ---
:1970 Author Organization [facility] Address [address] [place] [address]- Care Team Providers Name Role Phone Jatin Lang MD, Rozina Knight Primary Care Physician [place] [facility] [place] Date(s): 09/07/20 - 10/13/20 [facility] [address] [address]- Attending Physician: Heidi Deleon MD Admitting Physician: [...] capsule, 3 Refills, Maintenance, 08/30/20 17:58:00 EDT, [facility], Partial fill upon patient request if [...]
--- OUTSIDE RECORDS SUMMARY | 2022-01-04 10:06 | XMS_ITS | Continuity of Care Document ---
:1970 Author Organization [facility] Address [address] [place] [address]- Care Team Providers Name Role Phone Jatin Lang MD, Rozina Knight Primary Care Physician [place] [facility] [place] 08/08/21 - 09/07/21 [facility] [address] [address]- Medications busPIRone 5 mg oral tablet 5 [...] opioid drug. Start Date: 05/31/20 Status: Orderedergocalciferol 55738 iu oral capsule 50,000 International_Units, 1, capsule, [...] tablet, 4 Refills, Maintenance, 05/02/21 17:19:00 EDT[facility] fill upon patient request if the [...] Maintenance,05/02/21 13:26:00 EDT, Route to Pharmacy Electronically, [facility], Partial fill upon patient request if [...]
--- OUTSIDE RECORDS SUMMARY | 2022-01-04 10:06 | XMS_ITS | Continuity of Care Document ---
:1970 Author Organization [facility] Address [address] [place] [address]- Care Team Providers Name Role Phone Jatin Lang MD, Rozina Knight Primary [id number] Date(s): 10/17/21 - 11/22/[facility] [address] [address]- Attending Physician: Heidi Deleon MD Admitting Physician: Heidi Deleon MD Allergies, Adverse Reactions, Alerts Substance Reaction Severity [...] opioid drug. Start Date: 05/31/20 Status: Orderedergocalciferol 12458 iu oral capsule 50,000 International_Units, 1, capsule, [...] tablet, 4 Refills, Maintenance, 05/02/21 17:19:00 EDT, [facility], Partial fill upon patient request if [...] Maintenance,05/02/21 13:26:00 EDT, Route to Pharmacy Electronically, [facility], Partial fill upon patient request if [...] Lang MD , Rozina Knight Address: Address: [address] [place] [address]-
--- OUTSIDE RECORDS SUMMARY | 2022-01-04 10:06 | XMS_ITS | Continuity of Care Document ---
:1970 Author Organization [facility] Address [address] [place] [address]- Care Team Providers Name Role Phone Jatin Lang MD, Rozina Knight Primary Care Physician En[place] [facility] [place] Date(s): 01/18/21 - 02/23/21 [facility] [address] [address]- Attending Physician: Heidi Deleon MD Admitting Physician: [...] 02/28/21 10:35:00 EST, 10/31/20 10:35:00 EDT, Tablet, [facility], Partial fill upon patient request if theprescription [...]
--- OUTSIDE RECORDS SUMMARY | 2022-01-04 10:06 | XMS_ITS | Continuity of Care Document ---
:1970 Author Organization [facility] Address [address] [place] [address]- Care Team Providers Name Role Phone Jatin Lang MD, Rozina Knight Primary Care Physician Encounter [facility] [place] Date(s): 05/02/21 - 06/01/21 [facility] [address] [address]- Medications calcitriol 0.25 mcg oral capsule See [...] tablet, 4 Refills, Maintenance, 05/02/21 17:19:00 EDT, [facility], Partial fill upon patient request if the prescription is for a schedule II opioid drug., 102.22, kg, 08/30/20 11:2... Start Date: 05/02/21 Stop Date: 09/29/21 Status: Orderedmeclizine 25 mg oral tablet 1 tablet = 25 mg, By Mouth, 2 times a day, # 60 tablet, 0 Refills, Maintenance, 05/31/20 12:30:00 EDT, Tablet, Partial fill upon patient request if the prescription is for a schedule II opioid drug. Start Date: 05/31/20 Status: Orderedpyridoxine 50 mg oral tablet 50 mg, 1, tablet, By Mouth, Daily, Bottles 5-9, # 30 tablet, Refills 4, Tot. Refills 4, Maintenance,05/02/21 13:26:00 EDT, Route to Pharmacy Electronically, [facility], Partial fill upon patient request if [...] Effective Dates Status Health Status Informant Latent tuberculosis(Confirmed)1 Active 1Pt started INH 300mg and 50mg B6 therapy on 11/09/2020.
--- OUTSIDE RECORDS SUMMARY | 2022-01-04 10:06 | XMS_ITS | Continuity of Care Document ---
:1970 Author Organization [facility] Address [address] [place] [address]- Care Team Providers Name Role Phone Jatin Lang MD, Rozina Knight Primary Care Physician Encounter [facility] [place] Date(s): 08/30/21 - 10/05/21 [facility] [address] [address]- Attending Physician: Heidi Deleon MD Admitting Physician: Heidi Dleeon MD Medications busPIRone 5 mg oral tablet [...] opioid drug. Start Date: 05/31/20 Status: Orderedergocalciferol 06519 iu oral capsule 50,000 International_Units, 1, capsule, [...] tablet, 4 Refills, Maintenance, 05/02/21 17:19:00 EDT, [facility], Partial fill upon patient request if [...] Maintenance,05/02/21 13:26:00 EDT, Route to Pharmacy Electronically, [facility], Partial fill upon patient request if [...] 300mg and 50mg B6 therapy on 11/09/2020. Care Team PersonnelName: Jatin Lang MD , Rozina Knight Address: [address] [place] [address]-
--- OUTSIDE RECORDS SUMMARY | 2022-01-04 10:06 | XMS_ITS | Continuity of Care Document ---
:1970 Author Organization [facility] Address [address] [place] [address]- Care Team Providers Name Role Phone Jatin Lang MD, Rozina Knight Primary Care Physician En[place] [facility] [place] Date(s): 02/22/21 - 03/30/21 [facility] [address] [address]- Attending Physician: Heidi Deleon MD Admitting Physician: [...]
--- OUTSIDE RECORDS SUMMARY | 2022-01-04 10:06 | XMS_ITS | Continuity of Care Document ---
:1970 Author Organization [facility] Address [address] [place] [address]- Care Team Providers Name Role Phone Jatin Lang MD, Rozina Knight Primary Care Physician [place] [facility] [place] 06[place]12[place]21 - 07/12/21 [facility] [address] [place] [id number] Medications calcitriol 0.25 mcg oral capsule See [...] Refills, Maintenance, 05/02/21 17:19:00 EDT, [facility], Partial fill upon patient request if the [...] EDT, Route to Pharmacy Electronically, [facility], Partial fill upon patient request if the [...]
--- OUTSIDE RECORDS SUMMARY | 2022-01-04 10:06 | XMS_ITS | Continuity of Care Document ---
:1970 Author Organization [facility] Address [address] [place] [address]- Care Team Providers Name Role Phone Jatin Lang MD, Bren Knight Primary Care Physician [place] [facility] [place] [id number] Date(s): 05/29/20 - 06/28/20 [facility] [address] [place] [address]- Attending Physician: Vadim Christine Admitting Physician: Vadim Christine Referring Physician: Vadim Christine Medications calcitriol 0.25 mcg oral capsule See [...]
--- OUTSIDE RECORDS SUMMARY | 2022-01-04 10:06 | XMS_ITS | Continuity of Care Document ---
:1970 Author Organization [facility] Address [address] [place] [address]- Care Team Providers Name Role Phone Jatin Lang MD, Rozina Knight Primary Care Physician [place] [facility] [place]20 - 01/12/21 [facility] [address] [address]- Attending Physician: Heidi Deleon MD Admitting Physician: [...] 02/28/21 10:35:00 EST, 10/31/20 10:35:00 EDT, Tablet, [facility], Partial fill upon patient request if [...]
--- OUTSIDE RECORDS SUMMARY | 2022-01-04 10:06 | XMS_ITS | Continuity of Care Document ---
:1970 Author Organization [facility] Address [address] [place] [address]- Care Team Providers Name Role Phone Jatin Lang MD, Rozina Knight Primary Care Physician [place] [facility] [place](s): 07/12/20 - 08/17/20 [facility] [address] [address]- Attending Physician: Heidi Deleon MD Admitting Physician: Heidi Deleon MD Referring Physician: Raad Youssef MD Medications calcitriol 0.25 mcg oral capsule [...]
--- OUTSIDE RECORDS SUMMARY | 2022-01-04 10:06 | XMS_ITS | Continuity of Care Document ---
:1970 Author Organization [facility] Address [address] [place] [address]- Care Team Providers Name Role Phone Jatin Lang MD, Rozina Knight Primary Care Physician [place] [facility] [place]/21 - 10/30/[address] [address]- Discharge Disposition: A-D/C Home Attending Physician: Constance Shea MD Admitting Physician: Constance Shea MD Referring Physician: Constance Shea MD Allergies, Adverse Reactions, Alerts Substance Reaction [...] opioid drug. Start Date: 05/31/20 Status: Orderedergocalciferol 27903 iu oral capsule 50,000 International_Units, 1, capsule, [...] tablet, 4 Refills, Maintenance, 05/02/21 17:19:00 EDT, [facility], Partial fill upon patient request if [...] Maintenance,05/02/21 13:26:00 EDT, Route to Pharmacy Electronically, [facility], Partial fill upon patient request if [...] 300mg and 50mg B6 therapy on 11/09/2020. Vital Signs Most recent to oldest 1 2 3 [Reference Range]: Weight 102.5 kg (10/30/21 1:54 PM) Oxygen Saturation [94-100 %] 100 % 100 % 99 % (10/30/21 4:00 PM) (10/30/21 3:45 PM) (10/30/21 1:5 4 PM) Pulse Rate [55-90 bpm] 82 bpm (10/30/21 1:54 PM) Blood Pressure [90-138/55-84 mm 145/79 mm Hg 141/86 mm Hg 130/73 mm Hg Hg] *H* *H* (10/30/21 1:54 PM ) (10/30/21 4:00 PM) (10/30/21 3:45 PM) Respiratory Rate [16-30 br/min] 11 br/min 15 br/min 16 br/min *L* *L* (10/30/21 1:54 PM ) (10/30/21 4:00 PM) (10/30/21 3:45 PM) Temperature [96.8-100.4 DegF] 98.6 DegF 97.9 DegF (10/30/21 3:45 PM) (10/30/21 1:54 PM) Mode of Delivery (Oxygen) Room air Room air Room a ir (10/30/21 4:00 PM) (10/30/21 3:45 PM) (10/30/21 1:5 4 PM) Blood pressure sites Arm, right Arm, right Arm, right (10/30/21 4:00 PM) (10/30/21 3:45 PM) (10/30/21 1:5 4 PM) Temperature Route Temporal Temporal (10/30/21 3:45 PM) (10/30/21 1:54 PM) Dry Weight 102.5 kg (10/30/21 1:54 PM) Weight Obtained Via Standing scale (10/30/21 1:54 PM) Dry Weight Obtained Via Standing scale (10/30/21 1:54 PM) Care Team PersonnelName: Jatin Lang MD , Marlyn Address: [address] [place] [id number]
--- OUTSIDE RECORDS SUMMARY | 2022-01-04 10:06 | XMS_ITS | Continuity of Care Document ---
:1970 Author Organization [facility] Address [address] [place] [id number]- Care Team Providers Name Role Phone Jatin Lang MD, Rozina Knight Primary Care Physician [place] [facility] [place](s): 06/28/21 - 07/28/21 [facility] [address] [address]- Attending Physician: Vadim Christine Admitting Physician: Vadim Christine Referring Physician: AdmtrVadim Medications busPIRone 5 mg oral tablet 5 [...] opioid drug. Start Date: 05/31/20 Status: Orderedergocalciferol 51566 iu oral capsule 50,000 International_Units, 1, capsule, [...] tablet, 4 Refills, Maintenance, 05/02/21 17:19:00 EDT, [facility], Partial fill upon patient request if [...] Maintenance,05/02/21 13:26:00 EDT, Route to Pharmacy Electronically, [facility], Partial fill upon patient request if [...]
--- OUTSIDE RECORDS SUMMARY | 2022-01-04 10:06 | XMS_ITS | Continuity of Care Document ---
:1970 Author Organization [facility] Address Unavailable , Care Team Providers Name Role Phone Jatin Lang MD, Rozina Knight Primary Care Physician [id number] Date(s): 04/21/21 - 06/20/21 [facility] Attending Physician: Ramon Mast MD Admitting Physician: Ramon Mast MD Medications calcitriol 0.25 mcg oral capsule [...] tablet, 4 Refills, Maintenance, 05/02/21 17:19:00 EDT, [facility], Partial fill upon patient request if [...] Maintenance,05/02/21 13:26:00 EDT, Route to Pharmacy Electronically, [facility], Partial fill upon patient request if [...]
--- OUTSIDE RECORDS SUMMARY | 2022-01-04 10:06 | XMS_ITS | Continuity of Care Document ---
:1970 Author Organization [facility] Address Unavailable , Care Team Providers Name Role Phone Jatin Lang MD, Rozina Knight Primary Care Physician Encounter [facility] [place] Date(s): 02/08/21 - 03/10/21 [facility] Attending Physician: Vadim Christine Admitting Physician: Vadim [...]
--- OUTSIDE RECORDS SUMMARY | 2022-01-04 10:06 | XMS_ITS | Continuity of Care Document ---
:1970 Author Organization [facility] Address [address] [place] [address]- Care Team Providers Name Role Phone Jatin Lang MD, Bren Knight Primary Care Physician Encounter [facility] [place] Date(s): 07/09/19 - 08/08/19 [facility] [address] [place] [address]- [facility] Attending Physician: Vadim Christine Admitting Physician: Vadim Christine Referring Physician: Vadim Christine Medications isoniazid 300 mg oral tablet See Instructions, 35, 0, 0, 02/18/06 10:24:53, 1 tablet By Mouth Daily, Print SHAUNNA Number, [id number] [place] [address], Constant Indicator Start Date: 02/18/06 Status: Ordered
--- OUTSIDE RECORDS SUMMARY | 2022-01-04 10:06 | XMS_ITS | Continuity of Care Document ---
:1970 Author Organization [facility] Address [address] [place] [phone]- Care Team Providers Name Role Phone Jatin Lang MD, Rozina Knight Primary Care Physician Encounter [facility] [place] Date(s): 09/21/20 - 10/21/20 [facility] [address] [address]- Medications calcitriol 0.25 mcg oral capsule See [...] capsule, 3 Refills, Maintenance, 08/30/20 17:58:00 EDT, [facility], Partial fill upon patient request if [...]
--- OUTSIDE RECORDS SUMMARY | 2022-01-04 10:06 | XMS_ITS | Continuity of Care Document ---
:1970 Author Organization [facility] Address [address] [place] [address]- Care Team Providers Name Role Phone Jatin Lang MD, Rozina Knight Primary Care Physician [id number] Date(s[facility] 10/06/20 - 11/11/20 [facility] [address] [address]- Attending Physician: Heidi Deleon MD Admitting Physician: [...] 02/28/21 10:35:00 EST, 10/31/20 10:35:00 EDT, Tablet, [facility], Partial fill upon patient request if theprescription [...] 50 mg, 1, tablet, By Mouth, Daily, for 14 days, # 30 tablet, Refills 3, Tot. Refills 3, Acute 12/26/20 10:37:00 EST, 10/31/20 10:37:00 EDT, Route to Pharmacy Electronically, [facility],Partial fill upon patient request if the prescrip... Start Date: 10/31/20 Stop Date: 12/26/20 Status: OrderedSenna 8.6 mg oral tablet 8.6 mg, 1, tablet, By Mouth, Daily at bedtime, Refills 0, Maintenance, 05/31/20 12:24:00 EDT, Partial fill upon patient request if the prescription is for a schedule II opioid drug. Start Date: 05/31/20 Status: Ordered Problem List Condition Effective Dates Status Health Status Informant Latent tuberculosis(Confirmed) Active
--- OUTSIDE RECORDS SUMMARY | 2022-01-04 10:06 | XMS_ITS | Continuity of Care Document ---
:1970 Author Organization [facility] In[facility] Address [address] [place] [address]- Care Team Providers Name Role Phone Jatin Lang MD, Rozina Knight Primary Care Physician [place] [facility] [place] 05/26/21 [facility] [address] [address]- Medications calcitriol 0.25 mcg oral capsule See [...] tablet, 4 Refills, Maintenance, 05/02/21 17:19:00 EDT, [facility], Partial fill upon patient request if [...] Maintenance,05/02/21 13:26:00 EDT, Route to Pharmacy Electronically, [facility], Partial fill upon patient request if [...]
--- OUTSIDE RECORDS SUMMARY | 2022-01-04 10:07 | XMS_ITS | Continuity of Care Document ---
:1970 Author Organization [facility] Address [address] [place] [address]- Care Team Providers Name Role Phone Jatin Lang MD, Rozina Knight Primary Care Physician Encounter [facility] [place] Date(s): 06/26/21 - 07/28/21 [facility] [address] [address]- Attending Physician: Heidi Deleon MD Admitting Physician: [...] opioid drug. Start Date: 05/31/20 Status: Orderedergocalciferol 32399 iu oral capsule 50,000 International_Units, 1, capsule, [...] tablet, 4 Refills, Maintenance, 05/02/21 17:19:00 EDT, [facility], Partial fill upon patient request if [...] Maintenance,05/02/21 13:26:00 EDT, Route to Pharmacy Electronically, [facility], Partial fill upon patient request if [...]
--- OUTSIDE RECORDS SUMMARY | 2022-01-04 10:07 | XMS_ITS | Continuity of Care Document ---
:1970 Author Organization [facility] Address [address] [place] [address]- Care Team Providers Name Role Phone Jatin Lang MD, Rozina Knight Primary Care Physician Encounter [facility] [place] Date(s): 02/28/21 - 03/30/21 [facility] [address] [address] Attending Physician: Vadim Christine Admitting Physician: Vadim [...]
--- OUTSIDE RECORDS SUMMARY | 2022-01-04 10:07 | XMS_ITS | Continuity of Care Document ---
:1970 Author Organization [facility] Address [address] [place] [phone]- Care Team Providers Name Role Phone Jatin Lang MD, Rozina Knight Primary Care Physician Encounter [facility] [place] Date(s): 07/18/20 - 08/17/20 [facility] [address] [address] Attending Physician: Vadim Christine Admitting Physician: Vadim [...]
--- NOTE | 2022-01-04 10:21 | ED.EAR ---
HPI - Ear Problem General Chief complaint: Ear Problems Stated complaint: ear pain Time Seen by Provider: 01/04/22 09:57 Source: patient Mode of arrival: ambulatory Limitations: no limitations History of Present Illness HPI Narrative: 51 yr old female here with 3 days of right ear pain, itching, yellow drainage from the ear with no URI symptoms, fever. +muffled hearing right side MD Complaint: ear pain, ear discharge and decreased hearing Related Data Home Medications Medication Instructions Recorded Confirmed ferrous sulfate 325 mg (65 mg 325 mg PO BID 05/11/20 09/21/21 iron) tablet,delayed release docusate sodium 100 mg capsule 100 mg PO BID Constipation 05/19/20 09/21/21 (Colace) calcitriol 0.25 mcg capsule 0.25 mcg PO DAILY 10/17/20 09/21/21 cyanocobalamin (vitamin B-12) 1,000 mcg PO DAILY 10/17/20 09/21/21 1,000 mcg tablet isoniazid 300 mg tablet 300 mg PO DAILY 11/13/20 09/21/21 pyridoxine (vitamin B6) 50 mg 50 mg PO DAILY 06/06/21 09/21/21 tablet buspirone 5 mg tablet 5 mg PO TID anxiety 07/05/21 09/21/21 carvedilol 3.125 mg tablet 3.125 mg PO BID 07/05/21 09/21/21 citalopram 20 mg tablet 20 mg PO DAILY 07/05/21 09/21/21 ergocalciferol (vitamin D2) 1,250 1,250 mcg PO QWEEK 07/05/21 09/21/21 mcg (50,000 unit) capsule (Vitamin D2) sevelamer carbonate 800 mg tablet 1,600 mg PO TID 07/05/21 09/21/21 vitamin B comp no.3-folic acid 1 1 tab PO DAILY 07/05/21 09/21/21 mg-vit C 60 mg-biotin 300 mcg tablet (Lesly-Toni Rx) Previous Rx's Medication Instructions Recorded hydralazine 25 mg tablet 25 mg PO TID #90 tabs 12/26/19 omeprazole magnesium 20 mg 20 mg PO DAILY@0630 Acid Reflux 30 06/12/21 tablet,delayed release (Prilosec days #30 tabs OTC) sennosides 8.6 mg tablet (senna) 17.2 mg PO BID 30 days #120 tabs 06/12/21 melatonin 5 mg capsule 5 mg PO BEDTIME 90 days #90 caps 06/26/21 furosemide 80 mg tablet 80 mg PO DAILY 90 days #90 tabs 07/26/21 gabapentin 300 mg capsule 300 mg PO TID 30 days #90 caps 07/26/21 meclizine 25 mg tablet 25 mg PO BID PRN dizziness 30 days 07/26/21 #60 tabs fluticasone propionate 50 1 spray intranasal DAILY #16 grams 08/24/21 mcg/actuation nasal spray,suspension atorvastatin 20 mg tablet 20 mg PO BEDTIME #90 tabs 08/27/21 lidocaine 5 % topical patch 1 patch topical DAILY #30 ea 12/11/21 diclofenac sodium 1 % topical gel 2 g topical QID #100 grams 12/13/21 (Voltaren Arthritis Pain) doxazosin 4 mg tablet 4 mg PO BEDTIME #30 tabs 12/13/21 cyclobenzaprine 5 mg tablet 5 mg PO BEDTIME #14 tabs 12/21/21 ciprofloxacin 0.3 %-dexamethasone 4 drp otic (ears) BID 7 days #7.5 01/04/22 0.1 % ear drops,suspension mL (Ciprodex) doxycycline monohydrate 100 mg 100 mg PO BID #14 caps 01/04/22 capsule ofloxacin 0.3 % ear drops 10 drp otic (ears) DAILY 7 days 01/04/22 #10 mL Allergies Allergy/AdvReac Type Severity Reaction Status Date / Time ibuprofen Allergy Severe Unknown Verified 01/04/22 09:57 nifedipine Allergy Intermediate hives, leg Verified 01/04/22 09:57 edema Review of Systems Review of Systems: Yes all other systems are reviewed and are negative Constitutional: Constitutional: Reports no additional constitutional complaints, Denies body ache(s), Denies chills, Denies fever(s), Denies headache(s) and Denies weakness Eyes: Eyes: Reports no additional eye complaints and Denies change in vision ENT: Reports system reviewed and no additional complaints, except as documented, Denies dizziness, Reports ear discharge, Reports otalgia, Denies headache(s), Denies nasal congestion, Denies nasal discharge and Denies neck pain Cardiovascular: Cardiovascular: Reports no additional cardiovascular complaints, Denies chest pain, Denies leg edema and Denies dyspnea Respiratory: Respiratory: Reports no additional respiratory complaints, Denies cough and Denies dyspnea Gastrointestinal: Gastrointestinal: Reports no additional gastrointestinal complaints, Denies abdominal pain, Denies diarrhea, Denies nausea and Denies vomiting Genitourinary: Genitourinary: Reports no additional female genitourinary complaints and Denies urinary incontinence Musculoskeletal: Musculoskeletal: Reports no additional musculoskeletal complaints, Denies back pain, Denies arthralgias, Denies joint swelling, Denies neck pain, Denies numbness and Denies tingling Integumentary/Breasts: Skin/Breast: Reports system reviewed and no additional complaints, except as docu and Denies rash Neurologic: Reports system reviewed and no additional complaints, except as documented, Denies Abnormal speech present, Denies dizziness, Denies headache(s), Denies numbness, Denies tingling and Denies weakness PMFSH Past Medical History Attestation statement: The following information was validated with the patient. 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 History of headache History of postoperative nausea Hospital discharge follow-up HTN (hypertension) Lab test negative for COVID-19 virus Lumbar back pain with radiculopathy affecting left lower extremity Nephrosclerosis Obesity (BMI 30-39.9) Polyarthralgia Renal interstitial fibrosis Spinal stenosis Spondylosis without myelopathy or radiculopathy, lumbar region Surgical History Fistula History of endometrial ablation Hx of colonoscopy Hx of hysterectomy Hx of tubal ligation Family History Family History Father Diabetes Mother Asthma Hypertension Ovarian cancer Maternal Grandfather Myocardial infarction Paternal Grandmother Stroke Social History Social History Household Members: Spouse and Children Housing: Apartment Do you presently have visiting nurse or other home services: No Alcohol intake: current Alcohol intake frequency: holidays/special occasions only Alcohol type: beer Patient Tobacco Use Status: Former Tobacco user Tobacco use type: Cigarette Years Smoked: 10+ e-Cigarette/Vaping Use: Never Used Second Hand Smoke Exposure: No Advance Directives: Yes Advance Directives on File: Yes Advance Directives Date on File: 07/28/21 service: No Current occupational status: employed Cognitive needs: No Hearing needs: No Vision needs: Yes (reading glasses) Physical Exam Vital Signs: Vital Signs: Last Vital Signs Temp 98 F 01/04/22 09:55 Pulse 73 01/04/22 09:55 Resp 16 01/04/22 09:55 BP 140/70 H 01/04/22 09:55 Pulse Ox 98 01/04/22 09:55 O2 Del Method 01/04/22 09:55 BMI result Body Mass Index 36.6 Const: General: cooperative, healthy appearing, comfortable and no acute distress Orientation/consciousness: patient oriented x3 Limitations: no limitations HEENT: Head: Yes normal to inspection Ears: hearing grossly normal bilaterally, TM normal on the left, mastoids normal, no periauricular adenopathy, Abnormal EAC present erythema, edema and otic discharge and TM abnormal bulging and erythematous; not perforated General nose exam: Normal external nose present Face and sinus: Yes normal facial exam Mouth: Normal oral and palatal mucosa present Throat: Yes posterior oropharynx normal Eyes: General: appearance normal, both eyes and all related structures Pupils: Equal, round and reactive pupils present Neck: Neck: Yes normal visual inspection, Yes full ROM, Yes no lymphadenopathy and Yes no meningeal signs Chest: Chest palpation & inspection: normal inspection of the chest Resp: Effort & Inspection: normal respiratory effort Auscultation: clear to auscultation bilaterally Cardio: Rate: regular rate Rhythm: regular rhythm Peripheral pulses: Peripheral pulses 2+ throughout GI: Inspection: Yes normal to inspection Palpation (GI): Soft to palpation and nontender Auscultation: normal bowel sounds Back/Spine/Pelvis: Thoracic/Lumbar Spine: thoracic and lumbar spine normal to inspection Skin: General skin exam: no rashes or lesions noted Neuro: General: patient oriented x3, no meningeal signs, no focal motor deficits and normal sensation to monofilament Cranial nerves: Yes Equal, round and reactive pupils present Cognition (Neuro): normal cognition Speech: No Abnormal speech present Gait exam (Neuro): Normal gait present Motor exam (neuro): 06/14 motor strength present throughout Extrem: General: Yes normal to inspection Course Course Course Narrative: Ear wick placed right ear with polmyxin drop. Reviewed worrisome signs/symptoms with patient and when to return to the ED. Comfortable with discharge home. Medications Administered Discontinued Medications Generic Name Dose Route Start Last Admin Trade Name Veena PRN Reason Stop Dose Admin Neomycin/Polymyxin/Hydrocortisone 4 drop 01/04/22 10:18 01/04/22 11:13 Neomycin/Polymyxin/Hc Otic Florinda Bottle EAR-RIGHT 01/04/22 10:19 4 drop ONCE ONE Administration MDM - Ear MDM Narrative Medical decision making narrative: 51yo female here with 3 days of right ear drainage, itching, pain and decreased hearing Exam c/w with right otitis externa/AOM Differential Diagnosis Differential diagnosis: Likely otitis externa and otitis media Medical Records Attestation: I reviewed the patient's medical records. Lab Data Attestation: I reviewed the patient's lab results. Discharge Plan Discharge Clinical Impression: Otitis externa, Otitis media Patient Disposition: Home, Self-Care Instructions: Otitis Externa (ED), How to Use Ear Drops (ED), Ear Infection (ED) Additional Instructions: the ear wick will fall out on its own If it does not fall out after 3 days please return Prescriptions: New ciprofloxacin-dexamethasone [Ciprodex] 0.3-0.1 % drops,suspension 4 drp otic (ears) BID 7 Days Qty: 7.5 0RF doxycycline monohydrate 100 mg capsule 100 mg PO BID Qty: 14 0RF ofloxacin 0.3 % drops 10 drp otic (ears) DAILY 7 Days Qty: 10 0RF No Action omeprazole magnesium [Prilosec OTC] 20 mg tablet,delayed release (DR/EC) 20 mg PO DAILY@0630 30 Days Qty: 30 6RF sennosides [senna] 8.6 mg tablet 17.2 mg PO BID 30 Days Qty: 120 6RF melatonin 5 mg capsule 5 mg PO BEDTIME 90 Days Qty: 90 1RF fluticasone propionate 50 mcg/actuation spray,suspension 1 spray intranasal DAILY Qty: 16 1RF Rx Instructions: administer into each nostril atorvastatin 20 mg tablet 20 mg PO BEDTIME Qty: 90 1RF lidocaine 5 % adhesive patch,medicated 1 patch topical DAILY Qty: 30 0RF Rx Instructions: leave on most painful area for up to 12 hrs doxazosin 4 mg tablet 4 mg PO BEDTIME Qty: 30 1RF diclofenac sodium [Voltaren Arthritis Pain] 1 % gel 2 g topical QID Qty: 100 0RF Rx Instructions: back cyclobenzaprine 5 mg tablet 5 mg PO BEDTIME Qty: 14 0RF hydralazine 25 mg Tablet 25 mg PO TID Qty: 90 0RF Protocol: Hold for SBP< HOLD for SBP < : 90 calcitriol 0.25 mcg capsule 0.25 mcg PO DAILY cyanocobalamin (vitamin B-12) 1,000 mcg Tablet 1,000 mcg PO DAILY isoniazid 300 mg tablet 300 mg PO DAILY pyridoxine (vitamin B6) 50 mg tablet 50 mg PO DAILY carvedilol 3.125 mg tablet 3.125 mg PO BID furosemide 80 mg tablet 80 mg PO DAILY 90 Days Qty: 90 1RF gabapentin 300 mg capsule 300 mg PO TID 30 Days Qty: 90 1RF meclizine 25 mg tablet 25 mg PO BID PRN (Reason: dizziness) 30 Days Qty: 60 1RF docusate sodium [Colace] 100 mg capsule 100 mg PO BID ferrous sulfate 325 mg (65 mg iron) tablet,delayed release (DR/EC) 325 mg PO BID sevelamer carbonate 800 mg tablet 1,600 mg PO TID Lesly-Toni Rx 1-60-300 mg-mg-mcg tablet 1 tab PO DAILY ergocalciferol (vitamin D2) [Vitamin D2] 1,250 mcg (50,000 unit) capsule 1,250 mcg PO QWEEK citalopram 20 mg tablet 20 mg PO DAILY buspirone 5 mg tablet 5 mg PO TID Referrals: Rozina Nicole MD [Primary Care Provider] - 1 week
[2022-01-04] MEDS: NeoMYCIN/Polymyxin/HC Otic Sol BOTTLE 4 DROP EAR-RIGHT (11:13)
== END 2022-01-04 11:42 | disposition home or self-care (01) ==
PROVIDERS: Emergency Provider Emergency Medicine Emergency Medical Services; PCP Internal Medicine
DX: H60.91 Unspecified otitis externa, right ear (principal); H66.91 Otitis media, unspecified, right ear; H92.01 Otalgia, right ear; I10 Essential (primary) hypertension; E78.5 Hyperlipidemia, unspecified; Z87.891 Personal history of nicotine dependence; E66.9 Obesity, unspecified; Z68.36 Body mass index [BMI] 36.0-36.9, adult
CPT/HCPCS: 99282; 99283

== ENCOUNTER → 2022-01-10 09:48 | Outpatient (BNVA) | payer OTHER, SELFPAY | PROVIDERS: PCP Internal Medicine; Visit Provider Anesthesiology | DX: M48.00 Spinal stenosis, site unspecified (principal); M51.26 Other intervertebral disc displacement, lumbar region; M51.36 Other intervertebral disc degeneration, lumbar region; M54.16 Radiculopathy, lumbar region; N18.6 End stage renal disease; R32 Unspecified urinary incontinence; R15.9 Full incontinence of feces; Z99.2 Dependence on renal dialysis | CPT/HCPCS: 99212 ==

== ENCOUNTER 2022-10-09 15:00 | Outpatient (REF) | payer OTHER, SELFPAY ==
--- NOTE | ~2022-10-09 | MM_ITS ---
EXAMINATION: MM SCREENING DIGITAL BREAST TOMOSYNTHESIS, BILATERAL CLINICAL INFORMATION: Screening. Asymptomatic. COMPARISON: Mammography: This study is compared with prior exams dating back to 2017. TECHNIQUE: Digital breast tomosynthesis is performed in both the craniocaudal and mediolateral oblique views along with computer-aided detection (CAD). Synthesized 2D images are generated from the tomosynthesis. FINDINGS: There are scattered areas of fibroglandular density (ACR BI-RADS breast composition Category b). There are no significant masses, abnormal calcifications, or other abnormalities. There is a tissue marker present in the upper outer quadrant of the right breast. There are fat necrosis type calcifications associated with the biopsy site. This is a benign finding. MM/MM tomosynthesis screening BI IMPRESSION: No mammographic evidence of malignancy. ASSESSMENT: BI-RADS BI-RADS 2 - Benign Findings RECOMMENDATION: Routine annual mammography screening. 1 year F/U This examination should not preclude the clinical evaluation of a suspicious palpable abnormality. This patient's information was entered into a reminder system with a target due date for their next mammogram.
== END 2022-10-09 15:01 | disposition home or self-care (01) ==
LOC: HO.MAMMO 15:00
PROVIDERS: Visit Provider Internal Medicine
DX: Z12.31 Encounter for screening mammogram for malignant neoplasm of breast (principal)
CPT/HCPCS: 77063; 77067

== ENCOUNTER → 2022-10-09 15:00 | Outpatient (BNV) | payer OTHER, SELFPAY | PROVIDERS: Visit Provider Radiology Diagnostic Radiology | DX: Z12.31 Encounter for screening mammogram for malignant neoplasm of breast (principal) | CPT/HCPCS: 77063; 77067 ==

== ENCOUNTER 2023-01-15 09:20 | Outpatient (AMB) | payer MEDICARE, MEDICAID, SELFPAY ==
--- NOTE | 2023-01-15 09:21 | A.OFFVIS_ITS ---
Intake Vital Signs 01/15/23 09:22 Height 5 ft 5 in Weight 133 lb BMI 22.1 BP 111/69 Respiration 16 Pulse 85 Intake Visit Reasons: Chronic Back Pain - Ref by RON/confirmed Allergies ibuprofen Allergy (Severe, Verified 01/10/22 10:07) Unknown nifedipine Allergy (Intermediate, Verified 01/10/22 10:07) hives, leg edema HPI HPI Comments History of Present Illness Details Meliza is in my office today after 1 year of absence. She reports today that she has had gastric sleeve surgery and after that she had some complications of the surgery which would require a revision of gastric sleeve surgery. She still reports that she is unable to eat properly she lost a lot of weight. She is no longer morbidly obese. She requests me to perform some procedures. She reports that she is still has pain in the lower back but she now feels the pain radiating down to her right lower extremity. It corresponds to the MRI of the patient where she has nerve root compression as below. I offered her transforaminal epidural steroid injection and she agreed to go for the procedure. She agreed to do it without sedation with small pill of Ativan to help her to tolerate procedure. She has end-stage renal disease patient and she goes for dialysis Friday. Prior: History of the bilateral diagnostic medial branch block L3-L4 does ramus L5 which was performed on 09/27/2021. The procedure was performed under sedation. The patient went home after the procedure went to bed and spend the rest of the day in bed. Therefore would not even know how the procedure was affecting the patient. She reported that she started to feel soreness next day in the morning. She felt soreness for the couple of days and then her pain started to get better. Unfortunately at this moment the results of the diagnostic medial branch block a non conclusive. By now 5 months after her pain is at the full strength she reports pain increase for 1 month radiation of the pain to the right leg and right leg weakness and frequent falls because of the pain increase. I offered her to repeat diagnostic medial branch block as it was planned before. This time I would like to perform it without sedation. This patient will be awake, I can offer her Ativan preoperatively but it is bene ficial for her to stay awake. We would need to perform this procedure on non dialysis day. 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 History of headache History of postoperative nausea Hospital discharge follow-up HTN (hypertension) Lab test negative for COVID-19 virus Lumbar back pain with radiculopathy affecting left lower extremity Nephrosclerosis Obesity (BMI 30-39.9) Polyarthralgia Renal interstitial fibrosis Spinal stenosis Spondylosis without myelopathy or radiculopathy, lumbar region Surgical History Fistula History of endometrial ablation Hx of colonoscopy Hx of hysterectomy Hx of tubal ligation Family History Father Diabetes Mother Asthma Hypertension Ovarian cancer Maternal Grandfather Myocardial infarction Paternal Grandmother Stroke Social History Household Members: Spouse and Children Housing: Apartment Do you presently have visiting nurse or other home services: No Alcohol intake: current Alcohol intake frequency: holidays/special occasions only Alcohol type: beer Comment: Patient doesn't want bed alarm on Patient Tobacco Use Status: Former Tobacco user Tobacco use type: Cigarette Years Smoked: 10+ e-Cigarette/Vaping Use: Never Used Second Hand Smoke Exposure: No Advance Directives Date on File: 07/28/21 service: No Current occupational status: employed Cognitive needs: No Hearing needs: No Vision needs: Yes (reading glasses) Female Reproductive History Menstrual Age of Menarche: 10 Review of Systems Const All systems reviewed & are unremarkable except as noted in HPI and below Physical Exam Vital Signs: BMI result Body Mass Index 22.1 Eyes General: appearance normal, both eyes and all related structures Pupils: Equal, round and reactive pupils present EOM: EOMs intact bilaterally Neck Neck: Yes full ROM GI Other: On inspection there is a Tenckhoff catheter in the lower portion of the abdomen below the umbilicus. Back/Spine/Pelvis Other: Tenderness on palpation on paraspinal spinal region of lumbar spine. SLR positive on the right. Lassegue positive on the right. Neuro General: gait normal Cranial nerves: Yes CN's II-XII intact bilaterally, Yes Equal, round and reactive pupils present and Yes Ability to bilaterally elevate shoulders present Gait exam (Neuro): Normal gait present Motor exam (neuro): 5/5 motor strength present throughout Extrem General: No pedal edema Psych Speech and movement: Normal speech and movement present Affect: normal affect Attitude: cooperative Thought process: Normal thought process present Thought content: Normal thought content present Insight: Good insight present (Psych) Judgement: Good judgement present (Psych) Results Reviewed Results Reviewed: MRI lumbar spine 0 7 09/07/2020. Sagittal alignment: 4.5 mm of grade 1 degenerative spondylolisthesis L4-5 3 mm grade 1 spondylolisthesis L5-S1 possible pars defect at the left at L5 on current study. Trace retrolisthesis at L2-L3 lordotic curvature maintained. Disc space height [id number] disc space height loss and disc desiccation at L4-5 is stable slight disc space height loss at L2-L3 stable in appearance with minimal disc desiccation. Bone marrow type 2 degenerative marrow signal changes along the endplates at L4- 5 and L5-S1, stable in appearance. Small benign vertebral hemangiomata at the L1 and L2 vertebral bodies are stable. Spinal cord terminates at L1. Morpho logy and signal is normal. L5-S1: Disc bulging and unroofing of the posterior disc margin related to mild spondylolisthesis with a small left subarticular to foraminal disc protrusion stable in appearance with moderate left-sided and moderate to severe right-sided facet arthropathy unchanged. No significant canal stenosis. Mild left-sided neural foraminal narrowing is stable. Cannot exclude pars defect on the left. L4-5: Unroofing of the posterior disc margin stable in appearance consistent with spondylolisthesis. Mild anterolateral spondylosis noted. Right-sided foraminal extruded disc herniation with slight cephalad migration is again noted with associated right L4 nerve root impingement unchanged in appearance. Small central disc herniation with slight flattening of the dural sac is noted stable in appearance. Severe bilateral facet arthropathy is noted again. There is 5 mm synovial cyst arising along the posterior inferior margin of the right facet joint unchanged. There is [id number]-[id number] narrowing of the right subarticular zone stable in appearance without significant central canal stenosis. There is moderate to severe right-sided neural foraminal compromise. L3-L4: Small left subarticular disc protrusion stable in appearance without neural impingement. Mild right lateral posterolateral disc osteophyte complex stable in appearance without neural impingement. No significant facet arthropathy canal or neural foraminal stenosis. L2-L3: Slight retrolisthesis of this level has developed since previous exam with slight flattening of the dural sac. Small right inferior foraminal/extraforaminal disc protrusion with an annular fissure again noted without neural impingement. No significant facet arthropathy. Mild foraminal narrowing on the right stable in appearance. No significant canal stenosis. L1-L2 no disc bulge or herniation and no significant spondylosis. No facet joint canal or neural foraminal stenosis. 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 She went for gastric sleeve surgery and she reported unspecified complications. She had some procedure on her stomach to correct the complications however she still reports nausea and vomiting. She lost lots of weight. She is no longer morbidly obese. She is ESRD on HD Friday. MRI from her previous practitioners the results are dictated as above. She had classical picture of radiculopathy on the right and at the same time it is corresponding to L4-5 disc herniation on the right. I will schedule her for transforaminal L4-5 epidural steroid injection without anesthesia with the help of Ativan medication. I will schedule it as soon as possible. 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
[2023-01-15 09:22] VITALS: BP 111/69; PULSE 85; RESP 16; BMI 22.1
== END 2023-01-15 09:35 | disposition home or self-care (01) ==
PROVIDERS: PCP Internal Medicine; Visit Provider Anesthesiology
DX: N18.6 End stage renal disease (principal); Z99.2 Dependence on renal dialysis; M54.16 Radiculopathy, lumbar region; M51.26 Other intervertebral disc displacement, lumbar region; M51.36 Other intervertebral disc degeneration, lumbar region; M48.00 Spinal stenosis, site unspecified
CPT/HCPCS: 99213

== ENCOUNTER → 2023-01-15 09:20 | Outpatient (BNVA) | payer MEDICARE, MEDICAID, SELFPAY | PROVIDERS: PCP Internal Medicine; Visit Provider Anesthesiology | DX: M54.16 Radiculopathy, lumbar region (principal); M48.00 Spinal stenosis, site unspecified; M51.26 Other intervertebral disc displacement, lumbar region; M51.36 Other intervertebral disc degeneration, lumbar region; N18.6 End stage renal disease; Z99.2 Dependence on renal dialysis | CPT/HCPCS: 99212 ==

== ENCOUNTER 2023-02-11 06:01 | Outpatient (REF) | payer MEDICARE, MEDICAID, SELFPAY ==
--- NOTE | ~2023-02-11 | FL_ITS ---
EXAMINATION: XR FLUOROSCOPY WITH IMAGES CLINICAL INFORMATION: Radiculopathy, lumbar region. COMPARISON: None available. TECHNIQUE: Fluoroscopy Supervised By: Dr. Mannie Raymond. Fluoroscopy Time: 0.4 minutes. Cumulative Dose: 3.24 mGy. DAP: 0.0520 Gycm2. Images: 2. FINDINGS: Images demonstrate needle placement and contrast injection over the right side of the mid lumbar spine FL/FL guidance in treatment room IMPRESSION: Fluoroscopic guidance for pain management procedure.
== END 2023-02-11 06:02 | disposition home or self-care (01) ==
LOC: CF 06:01
PROVIDERS: Visit Provider Anesthesiology
DX: M54.16 Radiculopathy, lumbar region (principal); M51.26 Other intervertebral disc displacement, lumbar region; M48.00 Spinal stenosis, site unspecified; N18.6 End stage renal disease; Z99.2 Dependence on renal dialysis
CPT/HCPCS: 64483; J3301; Q9967

== ENCOUNTER 2023-02-11 08:28 | Outpatient (AMB) | payer MEDICARE, MEDICAID, SELFPAY ==
[2023-02-11 09:00] VITALS: BP 116/72; PULSE 91; RESP 18; O2SAT 100; BMI 22.1
--- NOTE | 2023-02-11 09:00 | MHC.OFFVIS ---
Intake Vital Signs 02/11/23 09:00 02/11/23 09:55 Height 5 ft 5 in 5 ft 5 in Weight 133 lb 133 lb BMI 22.1 22.1 BP 116/72 122/78 Blood Pressure Location Rt radial Lt brachial Position Sitting Sitting Respiration 18 16 Pulse 91 94 Pulse Source Pulse Oximeter Pulse Oximeter Pulse Oximetry (%) 100 97 Oxygen Delivery Method Room Air Room Air Comment Pre-Op Post-Op Intake Visit Reasons: RIGHT L4, L5 TFESI/ATIVAN REQUESTED Allergies ibuprofen Allergy (Severe, Verified 01/10/22 10:07) Unknown nifedipine Allergy (Intermediate, Verified 01/10/22 10:07) hives, leg edema PFSH Medical History Abnormal mammogram of right breast Anemia Anxiety and depression Back pain Chest pain Chronic renal insufficiency Dyslipidemia Family history of ovarian cancer GERD (gastroesophageal reflux disease) 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 History of headache History of postoperative nausea Hospital discharge follow-up HTN (hypertension) Lab test negative for COVID-19 virus Lumbar back pain with radiculopathy affecting left lower extremity Nephrosclerosis Obesity (BMI 30-39.9) Polyarthralgia Renal interstitial fibrosis Spinal stenosis Spondylosis without myelopathy or radiculopathy, lumbar region Surgical History Fistula History of endometrial ablation Hx of colonoscopy Hx of hysterectomy Hx of tubal ligation Family History Father Diabetes Mother Asthma Hypertension Ovarian cancer Maternal Grandfather Myocardial infarction Paternal Grandmother Stroke Social History Household Members: Spouse and Children Housing: Apartment Do you presently have visiting nurse or other home services: No Alcohol intake: current Alcohol intake frequency: holidays/special occasions only Alcohol type: beer Comment: Patient doesn't want bed alarm on Patient Tobacco Use Status: Former Tobacco user Tobacco use type: Cigarette Years Smoked: 10+ e-Cigarette/Vaping Use: Never Used Second Hand Smoke Exposure: No Advance Directives Date on File: 07/28/21 service: No Current occupational status: employed Cognitive needs: No Hearing needs: No Vision needs: Yes (reading glasses) Female Reproductive History Menstrual Age of Menarche: 10 Physical Exam Vital Signs: Last Vital Signs Pulse 91 02/11/23 09:00 Resp 18 02/11/23 09:00 BP 116/72 02/11/23 09:00 Pulse Ox 100 02/11/23 09:00 Oxygen Delivery Method Room Air 02/11/23 09:00 BMI result Body Mass Index 22.1 Assessment & Plan Assessment & Plan (1) ESRD on dialysis: Code(s): N18.6 - End stage renal disease; Z99.2 - Dependence on renal dialysis (2) Lumbar back pain with radiculopathy affecting left lower extremity: Code(s): M54.16 - Radiculopathy, lumbar region Plan: Transforaminal epidural steroid injection L4-5 on the right. THE PATIENT CAME TO THE OPERATING ROOM AFTER OBTAINING INFORMED CONSENT. THE RISKS OF THE PROCEDURE WERE DELINEATED THE RISK OF BLEEDING INFECTION PERIPHERAL NERVE DAMAGE EPIDURAL HEMATOMA EPIDURAL ABSCESS AND OTHER UNSPECIFIED RISKS. THE PATIENT WAS POSITIONED PRONE ON THE OPERATING TABLE . TIME-OUT WAS OBTAINED DELINEATING CORRECT SIDE AND SITE OF THE PROCEDURE, PATIENT NAME AND DATE OF , NEED OF THE ANTIBIOTIC, RISK OF FIRE. The PATIENT PARTICIPATED IN THE TIME OUT PROCEDURE. LUMBAR AREA OF THE PATIENT WAS PREPPED WITH CHLORAPREP AND DRAPED WITH STERILE DRAPES, STERILELY DRAPED C-ARM WAS BROUGHT OVER THE OPERATING FIELD AND SQ PICTURE OF L4 VERTEBRA WAS DELINEATED ON THE SCREEN. The image of L4 vertebra was concidered to be as a 4 th non-rib bearing vertebra of the lumbar spine because we counted 6 non rib bearing vertebras. C-ARM WAS TILTED 30 DEGREES TO THE RIGHT TO DEMONSTRATE THE MOST PROMINENT IMAGE OF THE PEDICLE OF THE l4 VERTEBRA ON THE RIGHT on THE RIGHT. 3 mm below the pedicle lowest point projection to the skin WAS CHOSEN A STARTING POINT OF THE INJECTION , it was infiltrated with lidocaine 1%. 22 GAUGE 5 IN SPINAL NEEDLE WAS INSERTED THROUGH THE SKIN AND STARTED TO ADVANCE TO THE FORAMINA IN ANTERIOR POSTERIOR, OBLIQUE AND LATERAL VIEWS IN TUNNEL VISION FASHION. WHEN ON LATERAL VIEW THE NEEDLE ENTERED THE MOST posterior and superior PORTION OF THE FORAMINA INJECTION OF THE CONTRAST PERFORMED DELINEATING ANTERIOR EPIDURAL SPREAD OF THE CONTRAST. Live image of the contrast spread was observed not demonstrated any intravascular or intrathecal spread of the contrast. AFTER THAT TREATMENT SOLUTION CONTAINING 3 ML OF PRESERVATIVE-FREE LIDOCAINE 1% MIXED WITH KENALOG 40 MG WAS INJECTED INTO THE NEEDLE. UPON COMPLETION OF THE INJECTION THE NEEDLE WAS REMOVED AND STERILE DRESSING WAS APPLIED. PATIENT TOLERATED PROCEDURE WELL SHE WAS AWAKEN TAKEN OUTSIDE OF THE OPERATING ROOM TO PACU WHERE SHE RECOVERED UNEVENTFULLY. SHE WENT HOME WITHOUT IMMEDIATE COMPLICATIONS. 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 She went for gastric sleeve surgery and she reported unspecified complications. She had some procedure on her stomach to correct the complications however she still reports nausea and vomiting. She lost lots of weight. She is no longer morbidly obese. She is ESRD on HD Friday. MRI from her previous practitioners the results are dictated as above. She had classical picture of radiculopathy on the right and at the same time it is corresponding to L4-5 disc herniation on the right. I will schedule her for transforaminal L4-5 epidural steroid injection without anesthesia with the help of Ativan medication. I will schedule it as soon as possible. 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
[2023-02-11 09:55] VITALS: BP 122/78; PULSE 94; RESP 16; O2SAT 97; BMI 22.1
== END 2023-02-11 09:45 | disposition home or self-care (01) ==
LOC: HO.PMCPRC 08:28
PROVIDERS: PCP Internal Medicine; Visit Provider Anesthesiology
DX: M54.16 Radiculopathy, lumbar region (principal); N18.6 End stage renal disease; Z99.2 Dependence on renal dialysis; M51.26 Other intervertebral disc displacement, lumbar region; M51.36 Other intervertebral disc degeneration, lumbar region; M48.00 Spinal stenosis, site unspecified
CPT/HCPCS: 64483

== ENCOUNTER 2023-02-24 10:17 | Outpatient (AMB) | payer MEDICARE, MEDICAID, SELFPAY ==
[2023-02-24 10:21] VITALS: BP 118/70; BMI 21.6
--- NOTE | 2023-02-24 10:21 | A.OFFPC_ITS ---
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 Accompanied by: Self / Same As Patient Allergies ibuprofen Allergy (Severe, Verified 02/24/23 10:31) Unknown nifedipine Allergy (Intermediate, Verified 02/24/23 10:31) hives, leg edema Medication List - Last Reconciled 02/24/23 by Rozina Lang MD buspirone 5 mg PO TID carvedilol 3.125 mg PO BID citalopram 20 mg PO DAILY cyanocobalamin (vitamin B-12) 1,000 mcg PO DAILY cyclobenzaprine 5 mg PO BEDTIME diclofenac sodium 1% (Voltaren Arthritis Pain) 2 grams topical QID ergocalciferol (vitamin D2) (Vitamin D2) 1,250 mcg PO QWEEK ferrous sulfate 325 mg PO BID fluticasone propionate 50 mcg/actuation 1 spray intranasal DAILY furosemide 80 mg PO DAILY 90 days gabapentin 300 mg PO TID 30 days isoniazid 300 mg PO DAILY meclizine 25 mg PO BID PRN 30 days melatonin 5 mg PO BEDTIME 90 days omeprazole magnesium (Prilosec OTC) 20 mg PO DAILY@0630 30 days pyridoxine (vitamin B6) 50 mg PO DAILY sennosides (senna) 17.2 mg (2 x 8.6 mg) PO BID 30 days vit B comp no.4-nplbu-F-biotin 1-60-300 mg-mg-mcg ([facility] Rx) 1 tab PO DAILY Tobacco use date assessed: 02/24/23 Dental Screening Dental Screen Date: 02/24/23 Did you have a dental visit in the last 12 months?: No Did you have a dental problem in the last 6 months where you did not have access to dental care?: No Was dental information given to patient?: Patient has dentist HPI HPI Comments History of Present Illness Details This is a 52-year-old female with moderate major depression and chronic kidney disease stage 5 on hemodialysis that comes for her physical exam. Depression somewhat stable with citalopram. She takes hemodialysis 3 times a week. Last mammogram was 2022 and was normal. No need for Pap smears due to hysterectomy for benign reasons. 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 No chest pain or shortness of breath. 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 Lumbar back pain with radiculopathy affecting left lower extremity Polyarthralgia Dyslipidemia Family history of ovarian cancer Abnormal mammogram of right breast Hospital discharge follow-up Anxiety and depression Chest pain Nephrosclerosis Renal interstitial fibrosis Obesity (BMI 30-39.9) Lab test negative for COVID-19 virus History of postoperative nausea Back pain Anemia GERD (gastroesophageal reflux disease) Chronic renal insufficiency History of headache HTN (hypertension) Surgical History (Updated 02/24/23 @ 10:39 by Rozina Lang MD) S/P arteriovenous (AV) graft placement History of sleeve gastrectomy Fistula Hx of colonoscopy Hx of hysterectomy Hx of tubal ligation History of endometrial ablation Family History (Updated 02/24/23 @ 10:40 by Rozina Lang MD) Father Asthma Mother Asthma Hypertension Ovarian cancer Maternal Grandfather Myocardial infarction Paternal Grandmother Stroke Social History Household Members: Spouse and Children Housing: Apartment Do you presently have visiting nurse or other home services: No Alcohol intake: current Alcohol intake frequency: holidays/special occasions only Alcohol type: beer Comment: Patient doesn't want bed alarm on Patient Tobacco Use Status: Current everyday Tobacco user Tobacco use type: Cigarette Cigarettes Per Day: 1 Years Smoked: 10+ e-Cigarette/Vaping Use: Never Used Second Hand Smoke Exposure: No Advance Directives Date on File: 07/28/21 service: No Current occupational status: employed Cognitive needs: No Hearing needs: No Vision needs: Yes (reading glasses) Female Reproductive History Menstrual Age of Menarche: 10 Questionnaire PHQ-9 Over the last 2 weeks, how often have you been bothered by any of the following problems? 1. Little interest or pleasure in doing things: nearly every day 2. Feeling down, depressed, or hopeless: more than half the days 3. Trouble falling or staying asleep, or sleeping too much: nearly every day 4. Feeling tired or having little energy: nearly every day 5. Poor appetite or overeating: more than half the days 6. Feeling bad about yourself - or that you are a failure or have let yourself or your family down: more than half the days 7. Trouble concentrating on things, such as reading the newspaper or watching television: more than half the days 8. Moving or speaking so slowly that other people could have noticed. Or the opposite - being so fidgety or restless that you have been moving around a lot more than usual: not at all 9. Thoughts that you would be better off or of hurting yourself in some way: not at all Total score: 17 Depression Screening Interpretation: Positive (no suicidal thoughts) Depression Screening Follow-up: Existing condition and In treatment Depression Screening Done: Yes 98190 - PHQ-9 Billing: Yes Source: Developed by Drs. Brandan Schmitz, Tricia Asher, Carlos Blue and colleagues, with an educational lore from [employer]. Thrive Questionnaire Date Thrive assessed: 02/24/23 I am a: Patient What is your living situation today?: I have a steady place to live Within the past 12 months, did the food you bought not last and you didn't have the money to get more?: Never true Within the past 12 months, did you worry whether your food would run out before you got money to buy more?: Never true Do you have trouble paying for medicines?: No Do you have trouble getting transportation to medical appointments?: No Do you have trouble paying your heating and electricity bill?: No Do you have trouble taking care of your child, family member or friend?: No Do you have trouble with day-to-day activities such as bathing, preparing meals, shopping, managing finances, etc.?: No Are you currently unemployed and looking for a job?: No Are you interested in more education?: No Please select the resources that you would like help with: None AUDIT C Alcohol Use Questionnaire (AUDIT-C) 1. How often do you have a drink containing alcohol?: Never Total Score: 0 JULIA-7 AMB Questionnaire JULIA-7 Date JULIA - 7 assessed: 02/24/23 Feeling nervous, anxious, or on edge: 1 = Several days Not being able to stop or control worryin = Several days Worrying too much about different things: 3 = Nearly every day Trouble relaxin = Not at all Being so restless that it is hard to sit still: 0 = Not at all Becoming easily annoyed or irritable: 2 = More than half the days Feeling afraid as if something awful might happen: 2 = More than half the days Total JULIA-7 score (0-4 normal; 5-9 mild; 10-14 moderate; 15-21 severe): 9 Source: Developed by Drs. Brandan Schmitz, Tricia Asher, Carlos Blue and colleagues, with an educational lore from [employer]. JULIA-7 Assessment Billing JULIA-7 Assessment Tool: JULIA-7 Assessment 31697 Review of Systems Const All systems reviewed & are unremarkable except as noted in HPI and below Eyes Reports no additional complaints, Denies change in vision and Denies other v isual disturbances Card Denies chest pain at rest, Denies chest pain with activity, Denies edema, Denies irregular heart rhythm, Denies claudication, Denies dyspnea, Denies dyspnea on exertion, Denies orthopnea, Denies paroxysmal nocturnal dyspnea and Denies slow heart rate Resp Denies cough, Denies dyspnea and Denies dyspnea on exertion GI Denies abdominal pain, Denies change in bowel habits, Denies excessive flatus, Denies nausea and Denies vomiting Denies urinary incontinence, Denies urinary hesitancy and Denies urinary urgency Musc Denies abnormal gait, Denies atrophy, Denies deformity and Denies limited range of motion Skin/Breast Denies bleeding lesions, Denies changing lesions and Denies rash Neuro Denies abnormal gait, Denies behavioral changes, Denies confusion and Denies lack of coordination Psych Denies behavioral changes and Denies confusion Physical exam (Primary Care) Vital Signs: Last Vital Signs BP 118/70 02/24/23 10:21 BMI result Body Mass Index 21.6 Tobacco/Smoking Status: Tobacco use Status Tobacco use date assessed 02/24/23 02/24/23 10:32 Patient Tobacco Use Status Current everyday Tobacco 02/24/23 10:32 Tobacco use type Cigarette 02/24/23 10:21 e-Cigarette/Vaping Use Never Used 02/24/23 10:21 PHQ-9: PHQ-9 Score PHQ-9: Total score 17 02/24/23 10:41 Depression Screening Interpretation: Positive (no suicidal thoughts) Depression Screening Follow-up: Existing condition and In treatment Thrive Assessment: Date of Thrive Assessment Date Thrive assessed 02/24/23 02/24/23 10:32 Const General: No confusion Orientation/consciousness: patient oriented x3 and No confusion HENMT Head: Yes normal to inspection, Yes normocephalic and Yes atraumatic Ears: external ears normal Eyes General: appearance normal, both eyes and all related structures Eyelids: Yes eyelids normal Conjunctivae: conjunctivae normal Neck Neck: Yes normal visual inspection and Yes supple Resp Effort & Inspection: normal respiratory effort Auscultation: clear to auscultation bilaterally Cardio Jugular venous distension: no JVD Rate: regular rate Rhythm: regular rhythm Heart sounds: S1 normal heart sound present and S2 normal heart sound present GI Inspection: Yes normal to inspection Palpation (GI): Soft to palpation and nontender Auscultation: normal bowel sounds Skin General skin exam: no rashes or lesions noted Neuro General: patient oriented x3, no focal motor deficits and No confusion Extrem Other: left arm systolic thrill General: Yes full ROM Psych Appearance: grossly normal Office Procedures Flu Questionnaire Does the patient have a severe egg allergy?: No Immunizations flu vacc [id number] 6mos up(PF) 60 mcg(15 mcgx4)/0.5 mL IM syringe Performing Provider: Rozina Lang MD [facility] Documented (not given) by: Cory Bhagat Annie on 02/24/23 10:32 Reason Not Given: Received Previously Assessment and Plan Assessment & Plan (1) Physical exam: Comment: UTD colonoscopy Scheduled on 07/17 for mammo History of total abdominal hysterectomy and bilateral salpingotectomy on 10/31/2016 Due for eye and dental COVID IZs X 3. UTD flu. She will check re: pneumonnia shot Code(s): Z00.00 - Encounter for general adult medical examination without abnormal findings Plan: Repeat in a year. (2) Moderate major depression: Code(s): F32.1 - Major depressive disorder, single episode, moderate Plan: Continue citalopram. (3) Chronic kidney disease, stage V requiring chronic dialysis: Code(s): N18.6 - End stage renal disease; Z99.2 - Dependence on renal dialysis Plan: Continue hemodialysis 3 times a week. Follow-up with nephrology. Orders: Orders Influenza [id number] Immunization Today Z23 - Encounter for immunization Lipid Panel Today E78.5 - Hyperlipidemia, unspecified IRON PROFILE Today D64.9 - Anemia, unspecified Complete Blood Count Auto Diff Today D64.9 - Anemia, unspecified Vitamin B12 and Folate Today E53.8 - Deficiency of other specified B group vitamins Vitamin D 25-OH Total Today E55.9 - Vitamin D deficiency, unspecified Comprehensive Lynn. Panel Fast Today N18.6 - End stage renal disease, Z99.2 - Dependence on renal dialysis Medications: New melatonin 10 mg PO BEDTIME 90 days PRN 90 caps 1RF sleep Changed From citalopram 20 mg PO DAILY F32.1 - Major depressive disorder, single episode, moderate To citalopram 20 mg PO DAILY 90 days 90 tabs 1RF F32.1 - Major depressive disorder, single episode, moderate Refilled furosemide 80 mg PO DAILY 90 days 90 tabs 1RF cyclobenzaprine 5 mg PO BEDTIME 14 tabs 0RF Discontinued diclofenac sodium 1% (Voltaren Arthritis Pain) back Discontinued Reason: Patient Refused 2 grams topical QID 100 grams 0RF Coding Level of Care Code Est Pt Prev Care 40-64y(82140) Diagnoses Physical exam Z00.00 Moderate major depression F32.1 Chronic kidney disease, stage V requiring chronic dialysis N18.6; Z99.2 Additional Codes JULIA-7 Assessment Billing - JULIA-7 Assessment Tool: JULIA-7 Assessment 61171 ([id number]) Time Spent (min) 35
== END 2023-02-24 10:50 | disposition home or self-care (01) ==
PROVIDERS: PCP Internal Medicine; Visit Provider Internal Medicine
DX: Z00.00 Encounter for general adult medical examination without abnormal findings (principal); F32.1 Major depressive disorder, single episode, moderate; N18.6 End stage renal disease; Z99.2 Dependence on renal dialysis
CPT/HCPCS: 96127; 99396

== ENCOUNTER 2023-03-10 09:09 | Outpatient (AMB) | payer MEDICARE, MEDICAID, SELFPAY ==
--- NOTE | 2023-03-10 09:10 | MHC.OFFVIS ---
Intake Vital Signs 03/10/23 09:14 Height 5 ft 5 in Weight 122 lb 8 oz BMI 20.4 BP 120/72 Blood Pressure Location Rt brachial Position Sitting Respiration 16 Pulse 91 Pulse Source Pulse Oximeter Pulse Oximetry (%) 99 Oxygen Delivery Method Room Air Intake Visit Reasons: RIGHT L4, L5 TFESI/02/11/23/ # not in serv Intake Note: Patient come in for post-op appointment. Reports pain 0/10. Allergies ibuprofen Allergy (Severe, Verified 03/10/23 09:14) Unknown nifedipine Allergy (Intermediate, Verified 03/10/23 09:14) hives, leg edema HPI HPI Comments History of Present Illness Details Meliza is in my office today after repeat transforaminal epidural steroid injection which was done on 02/11/2023. She reports good pain relief after the procedure when she is at rest. However when she starts to perform movements her pain is getting worse. She also reports pain is getting worse to were the end of the day after physical activity. She still experiences pain radiating down to the right lower extremity. She is now on hemodialysis. She used to be on peritoneal dialysis. She has history of a gastric sleeve and very significant weight loss after that. We discussed today possibility of treating her axial back pain and pain radiating to the right lower extremity with Nevro SCS. We also discussed possibility to treat her pain with transforaminal epidural steroid injection right L4-5. However this injection is not possible until May 12. If she decides to go for SCS she would need to give us a call and we will put her on psychological evaluation. If she wants to repeat the procedure she just need to give a a call close to May 12 and we will put her on my schedule to perform the injection. 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 Lumbar back pain with radiculopathy affecting left lower extremity Polyarthralgia Dyslipidemia Family history of ovarian cancer Abnormal mammogram of right breast Hospital discharge follow-up Anxiety and depression Chest pain Nephrosclerosis Renal interstitial fibrosis Obesity (BMI 30-39.9) Lab test negative for COVID-19 virus History of postoperative nausea Back pain Anemia GERD (gastroesophageal reflux disease) Chronic renal insufficiency History of headache HTN (hypertension) Surgical History (Updated 02/24/23 @ 10:39 by Rozina Lang MD) S/P arteriovenous (AV) graft placement History of sleeve gastrectomy Fistula Hx of colonoscopy Hx of hysterectomy Hx of tubal ligation History of endometrial ablation Family History (Updated 02/24/23 @ 10:40 by Rozina Lang MD) Father Asthma Mother Asthma Hypertension Ovarian cancer Maternal Grandfather Myocardial infarction Paternal Grandmother Stroke Social History Household Members: Spouse and Children Housing: Apartment Do you presently have visiting nurse or other home services: No Alcohol intake: current Alcohol intake frequency: holidays/special occasions only Alcohol type: beer Comment: Patient doesn't want bed alarm on Patient Tobacco Use Status: Current everyday Tobacco user Tobacco use type: Cigarette Cigarettes Per Day: 1 Years Smoked: 10+ e-Cigarette/Vaping Use: Never Used Second Hand Smoke Exposure: No Advance Directives Date on File: 07/28/21 service: No Current occupational status: employed Cognitive needs: No Hearing needs: No Vision needs: Yes (reading glasses) Female Reproductive History Menstrual Age of Menarche: 10 Review of Systems Const All systems reviewed & are unremarkable except as noted in HPI and below Details: ESRD on HD Friday Physical Exam Const General: cooperative, comfortable and no acute distress Orientation/consciousness: patient oriented x3 Eyes General: appearance normal, both eyes and all related structures Pupils: Equal, round and reactive pupils present EOM: EOMs intact bilaterally Neck Neck: Yes full ROM Chest Chest palpation & inspection: normal inspection of the chest Resp Effort & Inspection: normal respiratory effort, able to speak in complete sentences and normal respiratory pattern Cardio Jugular venous distension: no JVD GI Other: On inspection a graft on the right upper extremity right arm. Back/Spine/Pelvis Other: Tenderness on palpation on paraspinal spinal region of lumbar spine. SLR positive on the right. [place]segue positive on the right. Neuro General: patient oriented x3 and gait normal Cranial nerves: Yes CN's II-XII intact bilaterally, Yes Equal, round and reactive pupils present and Yes Ability to bilaterally elevate shoulders present Gait exam (Neuro): Normal gait present Motor exam (neuro): 5/5 motor strength present throughout Extrem General: No pedal edema Psych Speech and movement: Normal speech and movement present Affect: normal affect Attitude: cooperative Thought process: Normal thought process present Thought content: Normal thought content present Insight: Good insight present (Psych) Judgement: Good judgement present (Psych) Results Reviewed Results Reviewed: MRI lumbar spine 0 7 09/07/2020. Sagittal alignment: 4.5 mm of grade 1 degenerative spondylolisthesis L4-5 3 mm grade 1 spondylolisthesis L5-S1 possible pars defect at the left at L5 on current study. Trace retrolisthesis at L2-L3 lordotic curvature maintained. Disc space height [id number] disc space height loss and disc desiccation at L4-5 is stable slight disc space height loss at L2-L3 stable in appearance with minimal disc desiccation. Bone marrow type 2 degenerative marrow signal changes along the endplates at L4-5 and L5-S1, stable in appearance. Small benign vertebral hemangiomata at the L1 and L2 vertebral bodies are stable. Spinal cord terminates at L1. Morphology and signal is normal. L5-S1: Disc bulging and unroofing of the posterior disc margin related to mild spondylolisthesis with a small left subarticular to foraminal disc protrusion stable in appearance with moderate left-sided and moderate to severe right-sided facet arthropathy unchanged. No significant canal stenosis. Mild left-sided neural foraminal narrowing is stable. Cannot exclude pars defect on the left. L4-5: Unroofing of the posterior disc margin stable in appearance consistent with spondylolisthesis. Mild anterolateral spondylosis noted. Right-sided foraminal extruded disc herniation with slight cephalad migration is again noted with associated right L4 nerve root impingement unchanged in appearance. Small central disc herniation with slight flattening of the dural sac is noted stable in appearance. Severe bilateral facet arthropathy is noted again. There is 5 mm synovial cyst arising along the posterior inferior margin of the right facet joint unchanged. There is [id number] narrowing of the right subarticular zone stable in appearance without significant central canal stenosis. There is moderate to severe right-sided neural foraminal compromise. L3-L4: Small left subarticular disc protrusion stable in appearance without neural impingement. Mild right lateral posterolateral disc osteophyte complex stable in appearance without neural impingement. No significant facet arthropathy canal or neural foraminal stenosis. L2-L3: Slight retrolisthesis of this level has developed since previous exam with slight flattening of the dural sac. Small right inferior foraminal/extraforaminal disc protrusion with an annular fissure again noted without neural impingement. No significant facet arthropathy. Mild foraminal narrowing on the right stable in appearance. No significant canal stenosis. L1-L2 no disc bulge or herniation and no significant spondylosis. No facet joint canal or neural foraminal stenosis. 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 She went for gastric sleeve surgery and she reported unspecified complications. She lost lots of weight. She is no longer morbidly obese. She is ESRD on HD Friday. MRI from her previous practitioners the results are dictated as above. She had classical picture of radiculopathy on the right and at the same time it is corresponding to L4-5 disc herniation on the right. Originally transforaminal L4-5 epidural steroid injection resulted in 1 year of pain relief however now patient reports that her pain is very well adjusted when she is at rest however when she starts to move her pain is getting worse. Repeat of the L4-5, L5-S1 transforaminal epidural steroid injection offered to the patient. Also brochure Nevro SCS was offered to the patient as an alternative of treating her radiculopathic pain. I will schedule this patient for psychological evaluation if she decides to go for Nevro SCS. If she would like to go for L4-5 L5-S1 on the right (transitional anatomy) epidural steroid injection I will schedule her for the procedure but not earlier than 03/14/2023 . she requires Ativan for the procedures. Patient Instructions: I here by testify that I spent 35 minutes in conversation with this patient as well as evaluating her prior records diagnostic studies and organizing this note. 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
[2023-03-10 09:14] VITALS: BP 120/72; PULSE 91; RESP 16; O2SAT 99; BMI 20.4
== END 2023-03-10 09:25 | disposition home or self-care (01) ==
PROVIDERS: PCP Internal Medicine; Visit Provider Anesthesiology
DX: N18.6 End stage renal disease (principal); Z99.2 Dependence on renal dialysis; M54.16 Radiculopathy, lumbar region; M51.26 Other intervertebral disc displacement, lumbar region; M51.36 Other intervertebral disc degeneration, lumbar region; M48.00 Spinal stenosis, site unspecified
CPT/HCPCS: 99214

== ENCOUNTER → 2023-03-10 09:09 | Outpatient (BNVA) | payer MEDICARE, MEDICAID, SELFPAY | PROVIDERS: PCP Internal Medicine; Visit Provider Anesthesiology | DX: M54.16 Radiculopathy, lumbar region (principal); M51.26 Other intervertebral disc displacement, lumbar region; M51.36 Other intervertebral disc degeneration, lumbar region; M48.00 Spinal stenosis, site unspecified; N18.6 End stage renal disease; Z99.2 Dependence on renal dialysis | CPT/HCPCS: 99212 ==

== ENCOUNTER 2023-03-25 09:14 | Outpatient (AMB) | payer MEDICARE, MEDICAID, SELFPAY ==
[2023-03-25 09:17] VITALS: BP 105/70; PULSE 97; BMI 20.9
--- NOTE | 2023-03-25 09:17 | MHC.OFFVIS ---
Intake Vital Signs 03/25/23 09:17 Height 5 ft 5 in Weight 125 lb 10.616 oz BMI 20.9 BP 105/70 Blood Pressure Location Lt brachial Position Sitting Pulse 97 Intake Visit Reasons: colonoscopy screening Intake Note: Patient presents to in office visit today in follow up for colonoscopy screening. CC: Patient reports having epigastric pain, generalized abdominal pain, nausea, GERD, and occasional vomiting. Per patient she sometimes has constipation, but lately is more diarrhea. 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 Required: No Accompanied by: Self / Same As Patient Allergies ibuprofen Allergy (Severe, Verified 03/25/23 09:32) Unknown nifedipine Allergy (Intermediate, Verified 03/25/23 09:32) hives, leg edema HPI colonoscopy screening HPI Details Assessment & Plan (1) GERD (gastroesophageal reflux disease): Code(s): K21.9 - Gastro-esophageal reflux disease without esophagitis Plan: She was treated with abx by her PCP for an infection and then she presented to [facility] [place] and she was told she had a GI virus and she was tx'ed with nausea meds and a cramping pill. She will be having surgery to remove her temp PD catheter, she will switching to hemodialysis soon. She has a temp port 0 cath now but soon they will do a surgical fistula. She was having too many complications from PD. At this point she is satisfied with her omeprazole and her senna so we will continue this. Return office visit in 6 months (2) Constipation: Code(s): K59.00 - Constipation, unspecified Medications: Refilled sennosides (senna) 17.2 mg (2 x 8.6 mg) PO BID 30 days 120 tabs 2RF K59.00 - Constipation, unspecified omeprazole magnesium (Prilosec OTC) 20 mg PO DAILY@0630 30 days 30 tabs 6RF Acid Reflux K21.9 - Gastro-esophageal reflux disease without esophagitis P.m. X End-stage renal disease status post kidney transplant/congenital interstitial nephritis Hypertension Lumbar degenerative disc disease with chronic back pain High cholesterol Depression/anxiety History of postop nausea Headaches Constipation Anemia of chronic disease * SURGICAL HISTORY Colonoscopy-2020 Zack= TA repeat in 5 years Hysterectomy Tubal ligation Endometrial ablation Renal transplant/AV graft placement Gastric sleeve * 2020 COLONOSCOPY-ZACK Findings: Terminal Ileum: Not evaluated Cecum: Normal Ascending Colon: A 10 mm sessile polyp overlying a fold removed with a hot snare Transverse Colon: Normal Descending Colon: Moderate diverticulosis Sigmoid Colon: A 12-15 mm sessile polyp removed with a hot snare and moderate diverticulosis Rectum: Normal Ano-rectum: Small internal hemorrhoids Colon preparation: Good Impression and Post Procedure Diagnosis: Colonoscopy Findings: Two medium sized polyps removed Moderate diverticulosis seen in the left colon Small hemorrhoids on retroflexed exam. Plan: Await pathology results Patient has an appointment on 03/24/20 in the [facility] with Yuliya Quinones NP . Repeat Colonoscopy interval based on path results - in 3 years if polyps are adenomatous and 10 years if polyps are hyperplastic. Above findings were reviewed with the patient and colon polyps and diverticulosis handouts were given in the discharge area. Received: 02/25/20 Diagnosis A. Colon, ascending, polypectomy: Tubular adenoma; no high grade dysplasia or carcinoma seen. B. Colon, 45 cm, polypectomy: Fragments of tubulovillous adenoma; no high-grade dysplasia or carcinoma seen . TODAY'S VISIT This patient has been lost to follow-up since 05/2021 apparently is returning today for a screening colonoscopy. She had a very large polyp removed with the 3 repeat interval last scope in [address] rAcher. In the interim, it appears that she underwent a sleeve gastrectomy in February 2022 and had a GI bleed with an upper endoscopy by Dr. Vernon at [place]. As a reminder she is end-stage renal disease patient on dialysis. She has also had intractable vomiting since her gastrectomy and upper GI at [facility] that showed esophageal dysmotility. She currently is undergoing hemodialysis and has a port/graft in the left upper arm rather than a fistula. Her brother has just been a good match for her and she is considering undergoing renal transplant but 1st she has to gain weight so she has some reserved for healing. Her protein levels of also been consistently low related to her poor ability to have good p.o. intake. I will request the records from [place] to see if I can contribute anything to help her with the situation. SHE ALSO PRESENTS TODAY with a laundry list of GI complaints including abdominal pain, nausea vomiting and diarrhea alternating with constipation. This is going to make the sphincter strongly complex visit given her complex medical history. Most of her nausea vomiting and upper abdominal pain came after her gastric sleeve. She follows with Dr. Jasso for this. He has done upper endoscopies on her and they are continuing to investigate this. She eats very little and has lost a tremendous amount of weight. It is concerning however that she has diarrhea especially given her low p.o. intake. She tends to have as much as a week at a time diarrhea that then will alternate with about a week of constipation but overall she has diarrhea more frequently than she has normal bowels. The diarrhea will be extremely watery and she will have near fecal incontinence along with severe fecal urgency. She stopped taking her senna which of course is reasonable. Her mother also has trouble with diarrhea and her stomach. I think it is reasonable to do some food allergy testing, celiac panel, general labs, and some stool testing to see if there is any underlying correctable pathology contributing to her diarrhea. She is lactose intolerant as well but this is being well managed with Lactaid milk and avoiding cheeses. She says that Dr. Wang has clear her for the colonoscopy and that there is no modification needed for her prep. There are no prior problems with anesthesia or sedation. She denies any respiratory problems and she has noncardiac chest pain that was worked up with a negative cardiac study. There are no infectious disease problems. Again she has a history of tubular adenoma but there is no known history of colorectal cancer. Return office visit in 3 weeks to review labs and treat the diarrhea and of course I will see her after the colonoscopy. [facility] Medical History (Updated 03/25/23 @ 09:52 by MARGARITA Murrieta) ESRD on dialysis Constipation Moderate major depression Chronic kidney disease, stage V requiring chronic dialysis Physical exam Spondylosis without myelopathy or radiculopathy, lumbar region Physical exam (~02/14/21) Hospital discharge follow-up Physical exam Anemia Peritoneal dialysis catheter in place Angina pectoris syndrome Spinal stenosis 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 Lumbar back pain with radiculopathy affecting left lower extremity Polyarthralgia Dyslipidemia Family history of ovarian cancer Abnormal mammogram of right breast Anxiety and depression Chest pain Nephrosclerosis Renal interstitial fibrosis Obesity (BMI 30-39.9) Lab test negative for COVID-19 virus History of postoperative nausea Back pain GERD (gastroesophageal reflux disease) Chronic renal insufficiency History of headache HTN (hypertension) Surgical History (Updated 03/25/23 @ 09:49 by MARGARITA Murrieta) S/P arteriovenous (AV) graft placement History of sleeve gastrectomy Fistula Hx of colonoscopy Hx of hysterectomy Hx of tubal ligation History of endometrial ablation Family History Father Asthma Mother Asthma Hypertension Ovarian cancer Maternal Grandfather Myocardial infarction Paternal Grandmother Stroke Social History Household Members: Spouse and Children Housing: Apartment Do you presently have visiting nurse or other home services: No Alcohol intake: current Alcohol intake frequency: holidays/special occasions only Alcohol type: beer Comment: Patient doesn't want bed alarm on Patient Tobacco Use Status: Current everyday Tobacco user Tobacco use type: Cigarette Cigarettes Per Day: 1 Years Smoked: 10+ e-Cigarette/Vaping Use: Never Used Second Hand Smoke Exposure: No Advance Directives Date on File: 07/28/21 service: No Current occupational status: employed Cognitive needs: No Hearing needs: No Vision needs: Yes (reading glasses) Female Reproductive History Menstrual Age of Menarche: 10 Review of Systems Const Reports anorexia, Denies fatigue, Denies fever(s), Reports lethargy, Denies night sweats, Reports poor appetite and Reports weight loss ENT Reports Normal hearing present, Denies dental pain, Denies dysphagia, Denies hearing loss, Denies mouth pain, Denies odynophagia, Denies throat swelling, Denies tongue swelling and Reports other (Dentition adequate) Card Reports chest pain Resp Reports no additional complaints GI Details: Reports abdominal pain (Epigastric after vomiting), Denies melena, Denies bloating, Denies hematochezia, Denies constipation, Denies GI cramping, Denies dysphagia, Denies excessive flatus, Denies early satiety, Reports heartburn, Reports diarrhea, Reports nausea, Denies odynophagia, Reports vomiting and Denies hematemesis Musc Reports back pain, Reports myalgias, Reports radiating pain into limb and Reports stiffness Skin/Breast Denies pruritus, Denies lesions, Denies rash and Denies jaundice Neuro Reports Normal hearing present and Denies Abnormal speech present Endo Denies fatigue Aller/Immun Denies throat swelling and Denies tongue swelling Physical Exam Vital Signs: Last Vital Signs Pulse 97 03/25/23 09:17 BP 105/70 03/25/23 09:17 BMI result Body Mass Index 20.9 Const General: cooperative, no acute distress, well developed and well groomed Nutritional Appearance: average body habitus and well nourished Orientation/consciousness: oriented to person, oriented to place and oriented to time Limitations: No language barrier HEENT Head: Yes normocephalic and Yes atraumatic Eyes General: appearance normal, both eyes and all related structures Pupils: Equal, round and reactive pupils present Neck Neck: Yes normal visual inspection and Yes no lymphadenopathy Thyroid: Thyroid normal Resp Effort & Inspection: normal respiratory effort and able to speak in complete sentences Auscultation: clear to auscultation bilaterally Cardio Rate: regular rate Rhythm: regular rhythm Heart sounds: Normal, physiologic split S2 sound present Peripheral pulses: radial pulses present and posterior tibial pulses present GI Other: loose abdominal skin Inspection: No distended, No Abdominal panniculus present and Yes striae Palpation (GI): Soft to palpation, nontender, no guarding, not rigid and No hepatosplenomegaly present Percussion: Yes normal to percussion Auscultation: normal bowel sounds Rectal Exam - Female: deferred Abdomen image: 1. surgical scars 2. 3. Skin General skin exam: no rashes or lesions noted, turgor normal, skin not dry, no jaundice, No spider nevi and no striae Rashes: no rashes Nails: normal Neuro General: oriented to person, oriented to place and oriented to time Cranial nerves: Yes Equal, round and reactive pupils present and Yes Normal hearing present Speech: No Abnormal speech present Extrem Other: port covered with bandages on left upper arm General: Yes normal to inspection, No clubbing, No cyanosis and No edema Psych Appearance: grossly normal and well kempt Mental Status: mental status grossly normal Speech and movement: Normal speech and movement present Affect: normal affect Attitude: cooperative Thought process: Normal thought process present and not confabulating Thought content: Normal thought content present Insight: Fair insight present (Psych) Judgement: Fair judgement present (Psych) Assessment & Plan Assessment & Plan (1) Pre-op examination: Code(s): Z01.818 - Encounter for other preprocedural examination (2) Tubular adenoma of colon: Comment: 2020 scope, repeat 5 years Code(s): D12.6 - Benign neoplasm of colon, unspecified (3) Chronic renal insufficiency: Comment: Stage 5 - On Hemodialysis sees Dr. Wang Code(s): N18.9 - Chronic kidney disease, unspecified Qualifiers: Chronic kidney disease stage: stage 4 (severe) Qualified Code(s): N18.4 - Chronic kidney disease, stage 4 (severe) (4) Chest pain: Comment: 07/2021- Neg Card work up- Foll'd by Dr. Hendrickson Code(s): R07.9 - Chest pain, unspecified Qualifiers: Chest pain type: unspecified Qualified Code(s): R07.9 - Chest pain, unspecified (5) GERD (gastroesophageal reflux disease): Code(s): K21.9 - Gastro-esophageal reflux disease without esophagitis (6) Obesity (BMI 30-39.9): Code(s): E66.9 - Obesity, unspecified (7) History of sleeve gastrectomy: Code(s): Z90.3 - Acquired absence of stomach [part of] (8) Diarrhea: Code(s): R19.7 - Diarrhea, unspecified Plan This patient has been lost to follow-up since 05/2021 apparently is returning today for a screening colonoscopy. She had a very large polyp removed with the 3 repeat interval last scope in [address] Archer. In the interim, it appears that she underwent a sleeve gastrectomy in February 2022 and had a GI bleed with an upper endoscopy by Dr. Vernon at [place]. As a reminder she is end-stage renal disease patient on dialysis. She has also had intractable vomiting since her gastrectomy and upper GI at [facility] that showed esophageal dysmotility. She currently is undergoing hemodialysis and has a port/graft in the left upper arm rather than a fistula. Her brother has just been a good match for her and she is considering undergoing renal transplant but 1st she has to gain weight so she has some reserved for healing. Her protein levels of also been consistently low related to her poor ability to have good p.o. intake. I will request the records from [place] to see if I can contribute anything to help her with the situation. SHE ALSO PRESENTS TODAY with a laundry list of GI complaints including abdominal pain, nausea vomiting and diarrhea alternating with constipation. This is going to make the sphincter strongly complex visit given her complex medical history. Most of her nausea vomiting and upper abdominal pain came after her gastric sleeve. She follows with Dr. Jasso for this. He has done upper endoscopies on her and they are continuing to investigate this. She eats very little and has lost a tremendous amount of weight. It is concerning however that she has diarrhea especially given her low p.o. intake. She tends to have as much as a week at a time diarrhea that then will alternate with about a week of constipation but overall she has diarrhea more frequently than she has normal bowels. The diarrhea will be extremely watery and she will have near fecal incontinence along with severe fecal urgency. She stopped taking her senna which of course is reasonable. Her mother also has trouble with diarrhea and her stomach. I think it is reasonable to do some food allergy testing, celiac panel, general labs, and some stool testing to see if there is any underlying correctable pathology contributing to her diarrhea. She is lactose intolerant as well but this is being well managed with Lactaid milk and avoiding cheeses. Differential diagnosis for her diarrhea is extremely wide especially given her complex medical history. Diarrhea is common in dialysis patients for unknown reasons. She also has chronic pain issues and was on Belbuca for period of time that was suspended in 2021 due to conflicts with pain medications received after surgical procedure. So obviously this could be functional, could be food allergies/intolerances, could be a mild opiate withdrawal syndrome, metabolic, and of course we would like to exclude inflammatory bowel disease or other severe pathology. This is a big change from her prior baseline that was constipation. She says that Dr. Wang has clear her for the colonoscopy and that there is no modification needed for her prep. There are no prior problems with anesthesia or sedation. She denies any respiratory problems and she has noncardiac chest pain that was worked up with a negative cardiac study. There are no infectious disease problems. Again she has a history of tubular adenoma but there is no known history of colorectal cancer. Return office visit in 3 weeks to review labs and treat the diarrhea and of course I will see her after the colonoscopy. Orders: Orders C Reactive Protein Today R19.7 - Diarrhea, unspecified, Z01.818 - Encounter for other preprocedural examination GI Panel Today R19.7 - Diarrhea, unspecified, Z01.818 - Encounter for other preprocedural examination Comprehensive Met. Panel Today R19.7 - Diarrhea, unspecified, Z01.818 - Encounter for other preprocedural examination Complete Blood Count Auto Diff Today R19.7 - Diarrhea, unspecified, Z01.818 - Encounter for other preprocedural examination Calprotectin, Fecal Today R19.7 - Diarrhea, unspecified, Z01.818 - Encounter for other preprocedural examination CDiff Gene PCR Today R19.7 - Diarrhea, unspecified, Z01.818 - Encounter for other preprocedural examination Gliadin Ab Panel Today R19.7 - Diarrhea, unspecified, Z01.818 - Encounter for other preprocedural examination Transglutaminase IgA Today R19.7 - Diarrhea, unspecified, Z01.818 - Encounter for other preprocedural examination Transglutaminase Ab IgG Today R19.7 - Diarrhea, unspecified, Z01.818 - Encounter for other preprocedural examination Rast Allergen Today R19.7 - Diarrhea, unspecified, Z01.818 - Encounter for other preprocedural examination Colonoscopy - GI Use Only Today R19.7 - Diarrhea, unspecified, Z01.818 - Encounter for other preprocedural examination Medications: Refilled meclizine 25 mg PO BID 30 days PRN 60 tabs 1RF dizziness Coding Level of Care Code Est Pt Level 4 (93768) Diagnoses Pre-op examination Z01.818 Tubular adenoma of colon D12.6 Chronic renal impairment, stage 4 (severe) N18.4 Chronic kidney disease stage: stage 4 (severe) Chest pain, unspecified type R07.9 Chest pain type: unspecified GERD (gastroesophageal reflux disease) K21.9 Obesity (BMI 30-39.9) E66.9 History of sleeve gastrectomy Z90.3 Diarrhea R19.7 Time Spent (min) 48
== END 2023-03-25 10:13 | disposition home or self-care (01) ==
PROVIDERS: PCP Internal Medicine; Visit Provider Nurse Practitioner
DX: R19.7 Diarrhea, unspecified (principal); K21.9 Gastro-esophageal reflux disease without esophagitis; Z90.3 Acquired absence of stomach [part of]; Z12.11 Encounter for screening for malignant neoplasm of colon
CPT/HCPCS: 99214

== ENCOUNTER → 2023-03-25 09:14 | Outpatient (BNVA) | payer MEDICARE, MEDICAID, SELFPAY | PROVIDERS: PCP Internal Medicine; Visit Provider Nurse Practitioner | DX: Z01.818 Encounter for other preprocedural examination (principal); D12.6 Benign neoplasm of colon, unspecified; N18.4 Chronic kidney disease, stage 4 (severe); R07.9 Chest pain, unspecified; K21.9 Gastro-esophageal reflux disease without esophagitis; E66.9 Obesity, unspecified; R19.7 Diarrhea, unspecified; Z90.3 Acquired absence of stomach [part of]; Z68.20 Body mass index [BMI] 20.0-20.9, adult | CPT/HCPCS: 99212 ==

== ENCOUNTER 2023-04-10 11:40 | Outpatient (REF) | payer MEDICARE, MEDICAID, SELFPAY ==
[2023-04-10 11:55] LABS: MANUAL DIFF FLAG NO
[2023-04-10 12:22] LABS: Basophils Absolute Auto 0.1 X10*3/uL (0.0-0.2); Basophils Percent Auto 1.1 % (0-2); Eosinophils Absolute Auto 0.1 X10*3/uL (0.0-0.4); Eosinophils Percent Auto 1.6 % (0-4); Hematocrit 33.3 % (37.0-47.0); Hemoglobin 11.4 g/dl (12.0-16.0); Imm Gran Abs Auto 0.01 X10*3/uL (0.00-0.03); Imm Gran Pct Auto 0.2 % (0.0-0.4); Lymphocytes Absolute Auto 1.7 X10*3/uL (1.2-4.9); Lymphocytes Percent Auto 37.9 % (20-40); Mean Corpuscular HGB Conc 34.2 g/dl (31.0-35.0); Mean Corpuscular Hemoglobin 30.1 pg (27.0-33.0); Mean Corpuscular Volume 87.9 fL (80.0-98.0); Mean Platelet Volume 9.7 fL (9.4-12.3); Monocytes Absolute Auto 0.3 X10*3/uL (0.1-1.2); Neutrophils Absolute Auto 2.3 x10*3/uL (2.0-8.3); Neutrophils Percent Auto 52.2 % (45-73); Platelet Count 176 X10*3/uL (160-400); Red Blood Count 3.79 X10*6/uL (4.20-5.50); Red Cell Distribution Width 16.5 % (11.0-16.0); White Blood Count 4.4 X10*3/uL (4.8-10.8)
[2023-04-10 13:16] LABS: Alanine Aminotransferase 16 U/L (0-31); Albumin Level 2.5 g/dL (3.5-5.0); Alkaline Phosphatase 92 U/L (39-117); Anion Gap 14 (12-20); Aspartate Amino Transferase 24 U/L (5-31); Bilirubin Total 0.6 mg/dL (0.0-1.0); Blood Urea Nitrogen 6 mg/dL (9-16); C Reactive Protein < 0.10 mg/dL (< or = 0.50); Calcium 9.5 mg/dL (8.4-10.2); Carbon Dioxide 30 mmol/L (22-29); Chloride 99 mmol/L (96-108); Estimated Glomerular Filt Rate 11; Glucose Random 79 mg/dL (60-115); Potassium 4.2 mmol/L (3.3-5.1); Sodium 139 mmol/L (135-145); Total Protein 5.6 g/dL (6.5-8.0)
[2023-04-14 13:33] LABS: Transglutaminase Ab IgG <1.0 U/mL; Transglutaminase IgA <1.0 U/mL
[2023-04-16 14:38] LABS: Gliadin Deamidated IgA Ab <1.0 U/mL; Gliadin Deamidated IgG Ab <1.0 U/mL
== END 2023-04-10 11:41 | disposition home or self-care (01) ==
LOC: HO.LAB 11:40
PROVIDERS: PCP Internal Medicine; Visit Provider Nurse Practitioner
DX: Z01.818 Encounter for other preprocedural examination (principal); R19.7 Diarrhea, unspecified
CPT/HCPCS: 36415; 80053; 85025; 86003; 86140; 86258; 86364

== ENCOUNTER 2023-06-03 07:30 | Day surgery (SDC) | payer MEDICARE, MEDICAID, SELFPAY ==
[2023-05-30 10:47] VITALS: BMI 21.0
[2023-05-30 10:48] VITALS: BMI 21.0
--- NOTE | 2023-06-02 09:32 | HO.ANESPROP2 ---
Documented by User: Yovana Huerta NP 06/02/23 09:34 HPI - Anesthesia Eval Consult details Narrative: 52yo F for Colonoscopy ESRD with HD MWF (AV fistula LUE) PMFSH Active Problems Active Problems: All Active Problems Diarrhea (Acute) Pre-op examination (Acute) Non-cardiac chest pain (Acute) Polyp of right nasal cavity (Acute) Numbness (Acute) Palpitations (Acute) Urinary and fecal incontinence (Acute) Anxiety and depression (Acute) Chronic low back pain (Acute) Fatigue (Acute) Nasal polyp, benign (Acute) Anxiety and depression (Acute) LLQ abdominal pain (Acute) Tubular adenoma of colon (Acute) Anxiety (Acute) Chronic renal insufficiency (Acute) History of sleeve gastrectomy (Acute) Spinal stenosis (Acute) 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 (Acute) Lumbar back pain with radiculopathy affecting left lower extremity (Acute) GERD (gastroesophageal reflux disease) (Acute) Polyarthralgia (Acute) Dyslipidemia (Acute) Family history of ovarian cancer (Acute) Abnormal mammogram of right breast (Acute) Chest pain (Acute) Obesity (BMI 30-39.9) (Acute) HTN (hypertension) (Acute) Past Medical History Medical History Moderate major depression Physical exam Spondylosis without myelopathy or radiculopathy, lumbar region Spinal stenosis 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 Lumbar back pain with radiculopathy affecting left lower extremity ESRD on dialysis Physical exam (~02/14/21) Peritoneal dialysis catheter in place Polyarthralgia Dyslipidemia Family history of ovarian cancer Abnormal mammogram of right breast Angina pectoris syndrome Chest pain Constipation Nephrosclerosis Renal interstitial fibrosis Obesity (BMI 30-39.9) Back pain Anemia GERD (gastroesophageal reflux disease) History of headache HTN (hypertension) Family History Family History Father Asthma Mother Asthma Hypertension Ovarian cancer Maternal Grandfather Myocardial infarction Paternal Grandmother Stroke Family history of problems with anesthesia: No Surgical History Surgical History S/P arteriovenous (AV) graft placement History of sleeve gastrectomy Fistula Hx of colonoscopy Hx of hysterectomy Hx of tubal ligation History of endometrial ablation History of Problems with Anesthesia: No Social History Social History Household Members: Spouse and Children Housing: Apartment Do you presently have visiting nurse or other home services: No Alcohol intake: current Alcohol intake frequency: holidays/special occasions only Alcohol type: beer Comment: Patient doesn't want bed alarm on Patient Tobacco Use Status: Current everyday Tobacco user Tobacco use type: Cigarette Cigarettes Per Day: 2 Years Smoked: 10+ e-Cigarette/Vaping Use: Never Used Second Hand Smoke Exposure: No Use of substances other than those prescribed or required for medical reasons: No Are you DNR?: No Advance Directives: No Advance Directives Information Provided: Yes Advance Directives Date on File: 07/28/21 service: No Current occupational status: employed Cognitive needs: No Hearing needs: No Vision needs: Yes (reading glasses) Meds Allergies Allergy/AdvReac Type Severity Reaction Status Date / Time ibuprofen Allergy Severe Unknown Verified 06/03/23 07:48 nifedipine Allergy Intermediate hives, leg Verified 06/03/23 07:48 edema Home Medications ?Medication ?Instructions ?Recorded ?Confirmed ?Last Taken ?Type ferrous sulfate 325 mg (65 mg 325 mg PO BID 05/11/20 05/30/23 10/10/20 History iron) tablet,delayed release cyanocobalamin (vitamin B-12) 1,000 mcg PO DAILY 10/17/20 05/30/23 10/17/20 History 1,000 mcg tablet pyridoxine (vitamin B6) 50 mg 50 mg PO DAILY 06/06/21 05/30/23 Unknown History tablet buspirone 5 mg tablet 5 mg PO TID anxiety 07/05/21 05/30/23 09/27/21 History carvedilol 3.125 mg tablet 3.125 mg PO BID 07/05/21 06/03/23 06/03/23 History ergocalciferol (vitamin D2) 1,250 1,250 mcg PO QWEEK 07/05/21 05/30/23 Unknown History mcg (50,000 unit) capsule (Vitamin D2) vitamin B comp no.3-folic acid 1 1 tab PO DAILY 07/05/21 05/30/23 Unknown History mg-vit C 60 mg-biotin 300 mcg tablet ([facility]) midodrine 5 mg tablet 5 mg PO TID 03/25/23 06/03/23 06/03/23 History Exam Height,Weight and Vital Signs: Height 5 ft 5 in Weight 57.153 kg Pertinent Lab Results Pertinent Lab Results: Laboratory Tests 04/10/23 11:53 WBC 4.4 L Hgb 11.4 L Hct 33.3 L Plt Count 176 Assessment and Plan Assessment Anesthesia Assessment: Chart Reviewed Final Anesthetic Review Family History of Problems with Anesthesia: No History of Problems with Anesthesia: No Documented by User: Jade Hoyt MD 06/03/23 08:26 HPI - Anesthesia Eval Consult details Narrative: 52yo F for Colonoscopy ESRD with HD MWF (AV fistula LUE). Dialysis yesterday 06/02/23 PMFSH Active Problems Active Problems: All Active Problems Diarrhea (Acute) Pre-op examination (Acute) Non-cardiac chest pain (Acute) Polyp of right nasal cavity (Acute) Numbness (Acute) Palpitations (Acute) Urinary and fecal incontinence (Acute) Anxiety and depression (Acute) Chronic low back pain (Acute) Fatigue (Acute) Nasal polyp, benign (Acute) Anxiety and depression (Acute) LLQ abdominal pain (Acute) Tubular adenoma of colon (Acute) Chronic renal failure. 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 (Acute) Lumbar back pain with radiculopathy affecting left lower extremity (Acute) GERD (gastroesophageal reflux disease) (Acute) Polyarthralgia (Acute) Dyslipidemia (Acute) Family history of ovarian cancer (Acute) Abnormal mammogram of right breast (Acute) Chest pain (Acute) HTN (hypertension) (Acute) Past Medical History Medical History Moderate major depression Physical exam Spondylosis without myelopathy or radiculopathy, lumbar region Spinal stenosis 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 Lumbar back pain with radiculopathy affecting left lower extremity ESRD on dialysis Physical exam (~02/14/21) Peritoneal dialysis catheter in place Polyarthralgia Dyslipidemia Family history of ovarian cancer Abnormal mammogram of right breast Angina pectoris syndrome Chest pain Constipation Nephrosclerosis Renal interstitial fibrosis Obesity (BMI 30-39.9) Back pain Anemia GERD (gastroesophageal reflux disease) History of headache HTN (hypertension) Family History Family History Father Asthma Mother Asthma Hypertension Ovarian cancer Maternal Grandfather Myocardial infarction Paternal Grandmother Stroke Family history of problems with anesthesia: No Surgical History Surgical History S/P arteriovenous (AV) graft placement History of sleeve gastrectomy Fistula Hx of colonoscopy Hx of hysterectomy Hx of tubal ligation History of endometrial ablation History of Problems with Anesthesia: No Social History Social History Household Members: Spouse and Children Housing: Apartment Do you presently have visiting nurse or other home services: No Alcohol intake: current Alcohol intake frequency: holidays/special occasions only Alcohol type: beer Comment: Patient doesn't want bed alarm on Patient Tobacco Use Status: Current everyday Tobacco user Tobacco use type: Cigarette Cigarettes Per Day: 2 Years Smoked: 10+ e-Cigarette/Vaping Use: Never Used Second Hand Smoke Exposure: No Use of substances other than those prescribed or required for medical reasons: No Are you DNR?: No Advance Directives: No Advance Directives Information Provided: Yes Advance Directives Date on File: 07/28/21 service: No Current occupational status: employed Cognitive needs: No Hearing needs: No Vision needs: Yes (reading glasses) Meds Allergies Allergy/AdvReac Type Severity Reaction Status Date / Time ibuprofen Allergy Severe Unknown Verified 06/03/23 07:48 nifedipine Allergy Intermediate hives, leg Verified 06/03/23 07:48 edema Home Medications ?Medication ?Instructions ?Recorded ?Confirmed ?Last Taken ?Type ferrous sulfate 325 mg (65 mg 325 mg PO BID 05/11/20 05/30/23 10/10/20 History iron) tablet,delayed release cyanocobalamin (vitamin B-12) 1,000 mcg PO DAILY 10/17/20 05/30/23 10/17/20 History 1,000 mcg tablet pyridoxine (vitamin B6) 50 mg 50 mg PO DAILY 06/06/21 05/30/23 Unknown History tablet buspirone 5 mg tablet 5 mg PO TID anxiety 07/05/21 05/30/23 09/27/21 History carvedilol 3.125 mg tablet 3.125 mg PO BID 07/05/21 06/03/23 06/03/23 History ergocalciferol (vitamin D2) 1,250 1,250 mcg PO QWEEK 07/05/21 05/30/23 Unknown History mcg (50,000 unit) capsule (Vitamin D2) vitamin B comp no.3-folic acid 1 1 tab PO DAILY 07/05/21 05/30/23 Unknown History mg-vit C 60 mg-biotin 300 mcg tablet ([facility] Rx) midodrine 5 mg tablet 5 mg PO TID 03/25/23 06/03/23 06/03/23 History Exam Height,Weight and Vital Signs: Height 5 ft 5 in Weight 57.153 kg Vital Signs Temp Pulse Resp BP Pulse Ox O2 Del Method 06/03/23 08:14 97.2 F 64 16 141/64 H 98 Room Air Pertinent Lab Results Pertinent Lab Results: Laboratory Tests 04/10/23 11:53 WBC 4.4 L Hgb 11.4 L Hct 33.3 L Plt Count 176 Lab Results 06/03/23 Range/Units 07:59 Sodium 136 (135-145) mmol/L Potassium 3.7 (3.3-5.1) mmol/L Chloride 97 (96-108) mmol/L Carbon Dioxide 31 H (22-29) mmol/L Anion Gap 12 (12-20) Airway Mallampati Class: II TM Dist: >3cm Neck ROM: Full Loose/Missing/Broken Teeth: Yes (Top front tooth loose) Heart: RRR+murmur Lungs: CTAB Assessment and Plan Assessment Anesthesia Assessment: Anesthesia Plan Discussed and Chart Reviewed Final Anesthetic Review Family History of Problems with Anesthesia: No History of Problems with Anesthesia: No NPO: Yes ASA Class: III Final Preanesthetic Review: No Changes in Pt Med Stat, Meds/Allgs Chart Reviewed, Consent Obtained/Reviewed and Anes Risks/Benef Reviewed Patient Risk: Intermediate Procedure Risk: Low Assessment/Block/Sedation in SS: Assess/Block/Sedation-SS Anesthetic Plan Anesthetic Plan: MAC: and TIVA Disposition: Standard PACU
[2023-06-03 07:41] VITALS: BMI 19.8
[2023-06-03 08:14] VITALS: BP 141/64; PULSE 64; RESP 16; TEMP 36.2; O2SAT 98
[2023-06-03] MEDS: 0.9 % Sodium Chloride 1,000 ML 100 ML IVCONT (08:15)
[2023-06-03 08:22] LABS: Anion Gap 12 (12-20); Carbon Dioxide 31 mmol/L (22-29); Chloride 97 mmol/L (96-108); Potassium 3.7 mmol/L (3.3-5.1); Sodium 136 mmol/L (135-145)
--- NOTE | 2023-06-03 08:49 | MHC.SHP ---
Pre-Procedural Eval Section A - 24 Hr Update-Section A only Date of Service: 06/03/23 The patient is an INPATIENT: No The patient has been examined within 24 hours of the surgical procedure. The History & Physical has been completed within 30 days and I have reviewed it.: No Section B - Complete if H&P > 30 days Chief Complaint: Surveillance for colon polyps Relevant Family History (Specify if Yes): No Relevant Social History: Tobacco Use Present Medications: see Short Stay Collaborative assessment Medical History: Significant History (ESRD on dialysis Constipation Moderate major depression Chronic kidney disease, stage V requiring chronic dialysis) History of Previous Operations: Relevant previous surgery/procedure and date(s) (Colonoscopy-2020 [facility]= TA repeat in 5 years Hysterectomy Tubal ligation Endometrial ablation Renal transplant/AV graft placement Gastric sleeve) Allergies: Allergies Allergy/AdvReac Type Severity Reaction Status Date / Time ibuprofen Allergy Severe Unknown Verified 06/03/23 07:48 nifedipine Allergy Intermediate hives, leg Verified 06/03/23 07:48 edema Review of Systems Sugical H&P ROS: Negative: Constitution, Cardiovascular, Respiratory and Gastrointestinal Exam Surgical H&P Exam: Normal: Heart, Normal: Lungs, Normal: Extremities and Normal: Abdomen Plan Diagnosis/Plan: Unchanged I have reviewed the history and physical and performed a pertinent physical examination on my patient. No changes have occurred unless specified. Time Spent With Patient Time: Total time managing care of this patient today ____ minutes.
--- NOTE | 2023-06-03 08:57 | P.OP_ITS ---
Operative Note Operative Note Date of Service: 06/03/23 Narrative: COLONOSCOPY TILL CECUM Pre-op diagnosis: Surveillance for colon polyps. Post-op diagnosis:? Diverticulosis, hemorrhoids Endoscopist:? Savannah Archer MD Anesthesia:?MAC Consent: Indications for the procedure and potential complications of bleeding, perforation, reaction to medications and missed diagnosis were discussed with the patient and informed consent was obtained. Instrument: Olympus PCF H 190 L variable stiffness pediatric colonoscope Monitoring: Vital signs and clinical assessment, intermittent blood pressure monitoring, continuous EKG monitoring, Pulse oximetry and Carbon Dioxide monitoring were done throughout the procedure. Please see anesthesia flowsheet. Colon withdrawl time was 20 minutes. Procedure: The patient was placed in the left lateral decubitis position and pre-procedure medications were administered. After a digital rectal examination of the ano-rectum, the video colonoscope was inserted into the rectum and advanced through the colon to the cecum. The colonoscope was slowly withdrawn in a retrograde panoramic fashion and the colon mucosa was carefully examined including a retroflexed view of the rectum. Findings and interventions are described below. Procedure Difficulty: without difficulty Findings: Terminal Ileum: Not evaluated Cecum: Normal Ascending Colon: Normal Transverse Colon: Normal Descending Colon: Moderate diverticulosis Sigmoid Colon: Moderate diverticulosis Rectum: Normal Ano-rectum: Moderate internal hemorrhoids Colon preparation: Good after copious irrigation. [place] Bowel Preparation Scale Right colon; 2 Transverse colon: 2 Left colon; 2 (0 = Unprepared colon segment with mucosa not seen due to solid stool that cannot be cleared. 1 = Portion of mucosa of the colon segment seen, but other areas of the colon segment not well seen due to staining, residual stool and/or opaque liquid. 2 = Minor amount of residual staining, small fragments of stool and/or opaque liquid, but mucosa of colon segment seen well. 3 = Entire mucosa of colon segment seen well with no residual staining, small fragments of stool or opaque liquid) Impression and Post Procedure Diagnosis: Colonoscopy Findings: No polyps were detected Moderate diverticulosis seen in the left colon Moderate hemorrhoids on retroflexed exam. Plan: Pt has a FU appointment on 06/17/23 with Yuliya Quinones NP. Repeat Colonoscopy in 5 years due to a hx of adenomatous colon polyps. Above findings were reviewed with the patient and relevant handouts were given and the discharge area.
[2023-06-03 09:43] VITALS: BP 112/59; PULSE 69; RESP 16; TEMP 36.1; O2SAT 100
[2023-06-03 09:58] VITALS: BP 136/70; PULSE 69; RESP 18; TEMP 36.1; O2SAT 100
== END 2023-06-03 10:42 | disposition home or self-care (01) ==
PROVIDERS: Nurse Practitioner; PCP Internal Medicine; Visit Provider Internal Medicine Gastroenterology
PROC: 0DJD8ZZ Inspection of Lower Intestinal Tract, Via Natural or Artificial Opening Endoscopic (ICD-10-PCS; CPT 45378; principal; 2023-06-03 08:30)
DX: Z12.11 Encounter for screening for malignant neoplasm of colon (principal); Z86.010 Personal history of colon polyps; K57.30 Diverticulosis of large intestine without perforation or abscess without bleeding; K64.8 Other hemorrhoids; K21.9 Gastro-esophageal reflux disease without esophagitis; R19.7 Diarrhea, unspecified; I12.0 Hypertensive chronic kidney disease with stage 5 chronic kidney disease or end stage renal disease; N18.6 End stage renal disease; F17.210 Nicotine dependence, cigarettes, uncomplicated; Z99.2 Dependence on renal dialysis; E78.5 Hyperlipidemia, unspecified; D64.9 Anemia, unspecified; F32.A Depression, unspecified; Z98.890 Other specified postprocedural states; Z88.6 Allergy status to analgesic agent; Z88.8 Allergy status to other drugs, medicaments and biological substances; Z79.899 Other long term (current) drug therapy; Z98.84 Bariatric surgery status; Z90.3 Acquired absence of stomach [part of]
CPT/HCPCS: G0105; 36415; 80051; J2704

== ENCOUNTER → 2023-06-03 07:30 | Outpatient (BNV) | payer MEDICARE, MEDICAID, SELFPAY | PROVIDERS: PCP Internal Medicine; Visit Provider Internal Medicine Gastroenterology | DX: Z12.11 Encounter for screening for malignant neoplasm of colon (principal); Z86.010 Personal history of colon polyps; K57.90 Diverticulosis of intestine, part unspecified, without perforation or abscess without bleeding; K64.0 First degree hemorrhoids | CPT/HCPCS: G0105 ==

== ENCOUNTER 2023-06-10 06:10 | Outpatient (REF) | payer MEDICARE, MEDICAID, SELFPAY ==
--- NOTE | ~2023-06-10 | FL_ITS ---
EXAMINATION: XR FLUOROSCOPY WITH IMAGES CLINICAL INFORMATION: Lumbar radiculopathy. COMPARISON: None available. TECHNIQUE: Fluoroscopy Supervised By: Dr. Mannie Raymond. Fluoroscopy Time: 0.3 minutes. Cumulative Dose: 1.97 mGy. DAP: 0.0343 Gycm2. Images: 4. FINDINGS: The submitted images show injection needles and injected contrast in the vicinity of the right L3-L4 and L4-L5 neural foramina. FL/FL guidance in treatment room IMPRESSION: Intraoperative fluoroscopic guidance is provided during lumbar pain management procedure. Please see the patient's Operative Report for full procedural details.
== END 2023-06-10 06:11 | disposition home or self-care (01) ==
LOC: CF 06:10
PROVIDERS: Visit Provider Anesthesiology
DX: M54.16 Radiculopathy, lumbar region (principal); M51.26 Other intervertebral disc displacement, lumbar region; M48.00 Spinal stenosis, site unspecified
CPT/HCPCS: 64483; 64484; J3301; Q9967

== ENCOUNTER 2023-06-10 07:15 | Outpatient (AMB) | payer MEDICARE, MEDICAID, SELFPAY ==
[2023-06-10 07:24] VITALS: BP 130/82; PULSE 69; RESP 16; O2SAT 100; BMI 23.2
--- NOTE | 2023-06-10 07:24 | A.OFFVIS_ITS ---
Vital Signs 06/10/23 07:24 06/10/23 08:42 Height 5 ft Weight 119 lb BMI 23.2 BP 130/82 122/66 Blood Pressure Location Lt brachial Lt brachial Position Sitting Sitting Respiration 16 18 Pulse 69 76 Pulse Source Pulse Oximeter Pulse Oximeter Pulse Oximetry (%) 100 97 Oxygen Delivery Method Room Air Room Air Comment Pre-Op Post-Op Intake Visit Reasons: RIGHT L4,L5 AND L5,S1 TFESI Allergies ibuprofen Allergy (Severe, Verified 06/03/23 07:48) Unknown nifedipine Allergy (Intermediate, Verified 06/03/23 07:48) hives, leg edema PFSH Medical History Moderate major depression Physical exam Spondylosis without myelopathy or radiculopathy, lumbar region Spinal stenosis 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 Lumbar back pain with radiculopathy affecting left lower extremity ESRD on dialysis Physical exam (~02/14/21) Peritoneal dialysis catheter in place Polyarthralgia Dyslipidemia Family history of ovarian cancer Abnormal mammogram of right breast Angina pectoris syndrome Chest pain Constipation Nephrosclerosis Renal interstitial fibrosis Obesity (BMI 30-39.9) Back pain Anemia GERD (gastroesophageal reflux disease) History of headache HTN (hypertension) Surgical History S/P arteriovenous (AV) graft placement History of sleeve gastrectomy Fistula Hx of colonoscopy Hx of hysterectomy Hx of tubal ligation History of endometrial ablation Family History Father Asthma Mother Asthma Hypertension Ovarian cancer Maternal Grandfather Myocardial infarction Paternal Grandmother Stroke Social History Household Members: Spouse and Children Housing: Apartment Do you presently have visiting nurse or other home services: No Alcohol intake: current Alcohol intake frequency: holidays/special occasions only Alcohol type: beer Comment: Patient doesn't want bed alarm on Patient Tobacco Use Status: Current everyday Tobacco user Tobacco use type: Cigarette Cigarettes Per Day: 2 Years Smoked: 10+ e-Cigarette/Vaping Use: Never Used Second Hand Smoke Exposure: No Advance Directives Date on File: 07/28/21 service: No Current occupational status: employed Cognitive needs: No Hearing needs: No Vision needs: Yes (reading glasses) Female Reproductive History Menstrual Age of Menarche: 10 Physical Exam Vital Signs: Last Vital Signs Pulse 76 06/10/23 08:42 Resp 18 06/10/23 08:42 BP 122/66 06/10/23 08:42 Pulse Ox 97 06/10/23 08:42 Oxygen Delivery Method Room Air 06/10/23 08:42 BMI result Body Mass Index 23.2 Results Reviewed Results Reviewed: MRI lumbar spine 0 7 09/07/2020. Sagittal alignment: 4.5 mm of grade 1 degenerative spondylolisthesis L4-5 3 mm grade 1 spondylolisthesis L5-S1 possible pars defect at the left at L5 on current study. Trace retrolisthesis at L2-L3 lordotic curvature maintained. Disc space height [id number] disc space height loss and disc desiccation at L4-5 is stable slight disc space height loss at L2-L3 stable in appearance with minimal disc desiccation. Bone marrow type 2 degenerative marrow signal changes along the endplates at L4- 5 and L5-S1, stable in appearance. Small benign vertebral hemangiomata at the L1 and L2 vertebral bodies are stable. Spinal cord terminates at L1. Morp hology and signal is normal. L5-S1: Disc bulging and unroofing of the posterior disc margin related to mild spondylolisthesis with a small left subarticular to foraminal disc protrusion stable in appearance with moderate left-sided and moderate to severe right-sided facet arthropathy unchanged. No significant canal stenosis. Mild left-sided neural foraminal narrowing is stable. Cannot exclude pars defect on the left. L4-5: Unroofing of the posterior disc margin stable in appearance consistent with spondylolisthesis. Mild anterolateral spondylosis noted. Right-sided foraminal extruded disc herniation with slight cephalad migration is again noted with associated right L4 nerve root impingement unchanged in appearance. Small central disc herniation with slight flattening of the dural sac is noted stable in appearance. Severe bilateral facet arthropathy is noted again. There is 5 mm synovial cyst arising along the posterior inferior margin of the right facet joint unchanged. There is [id number] narrowing of the right subarticular zone stable in appearance without significant central canal stenosis. There is moderate to severe right-sided neural foraminal compromise. L3-L4: Small left subarticular disc protrusion stable in appearance without neural impingement. Mild right lateral posterolateral disc osteophyte complex stable in appearance without neural impingement. No significant facet arthropathy canal or neural foraminal stenosis. L2-L3: Slight retrolisthesis of this level has developed since previous exam with slight flattening of the dural sac. Small right inferior foraminal/extraforaminal disc protrusion with an annular fissure again noted without neural impingement. No significant facet arthropathy. Mild foraminal narrowing on the right stable in appearance. No significant canal stenosis. L1-L2 no disc bulge or herniation and no significant spondylosis. No facet joint canal or neural foraminal stenosis. Assessment & Plan Assessment & Plan (1) Lumbar back pain with radiculopathy affecting left lower extremity: Code(s): M54.16 - Radiculopathy, lumbar region Category: Medical Plan: Transforaminal epidural steroid injection L4-5 on the right. THE PATIENT CAME TO THE OPERATING ROOM AFTER OBTAINING INFORMED CONSENT. THE RISKS OF THE PROCEDURE WERE DELINEATED THE RISK OF BLEEDING INFECTION PERIPHERAL NERVE DAMAGE EPIDURAL HEMATOMA EPIDURAL ABSCESS AND OTHER UNSPECIFIED RISKS. THE PATIENT WAS POSITIONED PRONE ON THE OPERATING TABLE . TIME-OUT WAS OBTAINED DELINEATING CORRECT SIDE AND SITE OF THE PROCEDURE, PATIENT NAME AND DATE OF , NEED OF THE ANTIBIOTIC, RISK OF FIRE. The PATIENT PARTICIPATED IN THE TIME OUT PROCEDURE. LUMBAR AREA OF THE PATIENT WAS PREPPED WITH CHLORAPREP AND DRAPED WITH STERILE DRAPES, STERILELY DRAPED C-ARM WAS BROUGHT OVER THE OPERATING FIELD AND SQ PICTURE OF L4 VERTEBRA WAS DELINEATED ON THE SCREEN. The image of L4 vertebra was concidered to be as a 4 th non-rib bearing vertebra of the lumbar spine because we counted 6 non rib bearing vertebras. C-ARM WAS TILTED 30 DEGREES TO THE RIGHT TO DEMONSTRATE THE MOST PROMINENT IMAGE OF THE PEDICLE OF THE l4 VERTEBRA ON THE RIGHT on THE RIGHT. 3 mm below the pedicle lowest point projection to the skin WAS CHOSEN A STARTING POINT OF THE INJECTION , it was infiltrated with lidocaine 1%. 22 GAUGE 5 IN SPINAL NEEDLE WAS INSERTED THROUGH THE SKIN AND STARTED TO ADVANCE TO THE FORAMINA IN ANTERIOR POSTERIOR, OBLIQUE AND LATERAL VIEWS IN TUNNEL VISION FASHION. WHEN ON LATERAL VIEW THE NEEDLE ENTERED THE MOST posterior and superior PORTION OF THE FORAMINA INJECTION OF THE CONTRAST PERFORMED DELINEATING ANTERIOR EPIDURAL SPREAD OF THE CONTRAST. Live image of the contrast spread was observed not demonstrated any intravascular or intrathecal spread of the contrast. AFTER THAT TREATMENT SOLUTION CONTAINING 3 ML OF PRESERVATIVE-FREE LIDOCAINE 1% MIXED WITH KENALOG 20 MG WAS INJECTED INTO THE NEEDLE. UPON COMPLETION OF THE INJECTION THE NEEDLE WAS REMOVED THE PROCEDURE WAS REPEATED AT L5-S1 LEVEL IN THE SIMILAR FASHION. tHE DOSE OF THE MEDICATION INJECTED WAS THE SAME. THE NEEDLE WAS REMOVED ABD STERILE BADAID WAS APPLIED. THE PATIENT TOLERATED PROCEDURE WELL SHE WAS AWAKEN TAKEN OUTSIDE OF THE OPERATING ROOM TO THE RECOVERY ROOM WHERE SHE RECOVERED UNEVENTFULLY. SHE WENT HOME WITHOUT IMMEDIATE COMPLICATIONS. 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 She went for gastric sleeve surgery and she reported unspecified complications. She had some procedure on her stomach to correct the complications however she still reports nausea and vomiting. She lost lots of weight. She is no longer morbidly obese. She is ESRD on HD Friday. MRI from her previous practitioners the results are dictated as above. She had classical picture of radiculopathy on the right and at the same time it is corresponding to L4-5 disc herniation on the right. I will schedule her for transforaminal L4-5 epidural steroid injection without anesthesia with the help of Ativan medication. I will schedule it as soon as possible. 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
[2023-06-10 08:42] VITALS: BP 122/66; PULSE 76; RESP 18; O2SAT 97
== END 2023-06-10 08:38 | disposition home or self-care (01) ==
PROVIDERS: PCP Internal Medicine; Visit Provider Anesthesiology
DX: M54.16 Radiculopathy, lumbar region (principal); M51.26 Other intervertebral disc displacement, lumbar region; M51.36 Other intervertebral disc degeneration, lumbar region; M48.00 Spinal stenosis, site unspecified
CPT/HCPCS: 64483; 64484

== ENCOUNTER 2023-06-25 12:28 | Emergency (ER) | payer MEDICARE, MEDICAID, SELFPAY ==
[2023-06-25 13:38] VITALS: BP 139/77; PULSE 82; RESP 16; TEMP 36.6; O2SAT 100; BMI 20.5
--- NOTE | 2023-06-25 13:39 | ED.GENADULT ---
HPI - General Adult General Chief complaint: Ear Problems Stated complaint: Bilateral ear pain/Bilateral foot swelling Time Seen by Provider: 06/25/23 13:42 Source: patient Mode of arrival: ambulatory Limitations: no limitations History of Present Illness HPI narrative: Patient is a 52-year-old female presenting to the emergency department with complaint of bilateral ear pain for the past 2 weeks. States that 2 days ago she felt a pop and noted drainage from her left ear, pain has increased over the last 2 days. Reports subjective fever at home. Denies sore throat or other URI symptoms. Tried using Q-tips an unknown [id number] drops without relief. MD complaint: Ear pain Onset (ago): week(s) Quality: aching Pain Consistency: constant Associated symptoms: denies other symptoms Treatments prior to arrival: other Related Data Home Medications ?Medication ?Instructions ?Recorded ?Confirmed ferrous sulfate 325 mg (65 mg 325 mg PO BID 05/11/20 05/30/23 iron) tablet,delayed release cyanocobalamin (vitamin B-12) 1,000 mcg PO DAILY 10/17/20 05/30/23 1,000 mcg tablet pyridoxine (vitamin B6) 50 mg 50 mg PO DAILY 06/06/21 05/30/23 tablet buspirone 5 mg tablet 5 mg PO TID anxiety 07/05/21 05/30/23 carvedilol 3.125 mg tablet 3.125 mg PO BID 07/05/21 06/03/23 ergocalciferol (vitamin D2) 1,250 1,250 mcg PO QWEEK 07/05/21 05/30/23 mcg (50,000 unit) capsule (Vitamin D2) vitamin B comp no.3-folic acid 1 1 tab PO DAILY 07/05/21 05/30/23 mg-vit C 60 mg-biotin 300 mcg tablet ([facility]) midodrine 5 mg tablet 5 mg PO TID 03/25/23 06/03/23 Previous Rx's ?Medication ?Instructions ?Recorded omeprazole magnesium 20 mg 20 mg PO DAILY@0630 Acid Reflux 30 06/12/21 tablet,delayed release (Prilosec days #30 tabs OTC) gabapentin 300 mg capsule 300 mg PO TID 30 days #90 caps 07/26/21 fluticasone propionate 50 1 spray intranasal DAILY #16 grams 06/13/22 mcg/actuation nasal spray,suspension sennosides 8.6 mg tablet (senna) 17.2 mg (2 x 8.6 mg) PO BID 30 08/29/22 days #120 tabs citalopram 20 mg tablet 20 mg PO DAILY 90 days #90 tabs 02/24/23 cyclobenzaprine 5 mg tablet 5 mg PO BEDTIME #14 tabs 02/24/23 furosemide 80 mg tablet 80 mg PO DAILY 90 days #90 tabs 02/24/23 melatonin 10 mg capsule 10 mg PO BEDTIME PRN sleep 90 days 02/24/23 #90 caps meclizine 25 mg tablet 25 mg PO BID PRN dizziness 30 days 03/25/23 #60 tabs amoxicillin 875 mg tablet 875 mg PO BID #14 tabs 06/25/23 Allergies Allergy/AdvReac Type Severity Reaction Status Date / Time ibuprofen Allergy Severe Unknown Verified 06/25/23 13:39 nifedipine Allergy Intermediate hives, leg Verified 06/25/23 13:39 edema Review of Systems Review of Systems: As per HPI. 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 Lumbar back pain with radiculopathy affecting left lower extremity ESRD on dialysis Physical exam (~02/14/21) Peritoneal dialysis catheter in place Polyarthralgia Dyslipidemia Family history of ovarian cancer Abnormal mammogram of right breast Angina pectoris syndrome Chest pain Constipation Nephrosclerosis Renal interstitial fibrosis Obesity (BMI 30-39.9) Back pain Anemia GERD (gastroesophageal reflux disease) History of headache HTN (hypertension) Surgical History S/P arteriovenous (AV) graft placement History of sleeve gastrectomy Fistula Hx of colonoscopy Hx of hysterectomy Hx of tubal ligation History of endometrial ablation Family History Family History Father Asthma Mother Asthma Hypertension Ovarian cancer Maternal Grandfather Myocardial infarction Paternal Grandmother Stroke Social History Social History Household Members: Spouse and Children Housing: Apartment Do you presently have visiting nurse or other home services: No Alcohol intake: current Alcohol intake frequency: holidays/special occasions only Alcohol type: beer Comment: Patient doesn't want bed alarm on Patient Tobacco Use Status: Current everyday Tobacco user Tobacco use type: Cigarette Cigarettes Per Day: 2 Years Smoked: 10+ e-Cigarette/Vaping Use: Never Used Second Hand Smoke Exposure: No Advance Directives Date on File: 07/28/21 service: No Current occupational status: employed Cognitive needs: No Hearing needs: No Vision needs: Yes (reading glasses) Physical Exam ED Vital Signs: Vital Signs - 24 hr 06/25/23 13:38 Temperature 97.8 F Pulse Rate 82 Respiratory Rate 16 Blood Pressure 139/77 Pulse Oximetry 100 Oxygen Delivery Method Room Air BMI result Body Mass Index 20.5 Vital signs have been reviewed and appear to be correct. Blood pressure normal. Heart rate normal. Respiratory rate normal. Temperature normal. Oxygen saturation normal. Const General: cooperative, healthy appearing and no acute distress Orientation/consciousness: oriented to person, oriented to place, oriented to time and patient oriented x3 Limitations: no limitations HENMT Head: Yes normocephalic and Yes atraumatic Ears: hearing grossly normal bilaterally, external ears normal, TM normal on the right, EAC's normal, mastoids normal bilaterally, no periauricular adenopathy and TM abnormal bulging on the left and erythematous on the left General nose exam: Normal external nose present Face and sinus: Yes face symmetric Mouth: oropharynx normal and moist mucous membranes Throat: Yes uvula midline Eyes Pupils: Equal, round and reactive pupils present Neck Neck: Yes normal visual inspection and Yes supple Resp Effort & Inspection: normal respiratory effort and able to speak in complete sentences Auscultation: clear to auscultation bilaterally Cardio Rate: regular rate Rhythm: regular rhythm Heart sounds: S1 normal heart sound present and S2 normal heart sound present GI Palpation (GI): Soft to palpation and nontender Auscultation: normoactive bowel sounds General: Yes no CVA tenderness Back/Spine/Pelvis Back: no CVA tenderness Skin General skin exam: elasticity normal and turgor normal Neuro General: oriented to person, oriented to place, oriented to time, patient oriented x3, moves all extremities, no focal motor deficits and CN's II-XI intact bilaterally Cranial nerves: Yes Equal, round and reactive pupils present Cognition (Neuro): normal cognition Extrem General: Yes full ROM, Yes no pedal edema and Yes no calf tenderness Psych Mental Status: mental status grossly normal Affect: normal affect Thought process: Normal thought process present Medical Decision Making Medical Decision Making [facility] Narrative: Patient is a 52-year-old female presenting to the emergency department with complaint of bilateral ear pain for the past 2 weeks. On exam patient is awake, A+Ox3, VS WNL, afebrile, normal neurological exam without focal deficits, physical exam findings as above. Given reported symptoms and physical exam findings, initial differential includes otitis media, otitis externa. Do not suspect mastoiditis. Physical exam consistent with OM of left ear, will treat with course of amoxicillin, advised patient to follow-up with her primary care provider. Return precautions discussed. Patient verbalized understanding of and agreement with plan. Differential Diagnosis Differential Diagnoses: The differential diagnosis associated with the presentation includes As per MDM. External Record Review External record reviewed: Inpatient record, Office record and Outpatient record Prescription Management I considered prescription management with: Antibiotic Discharge Plan Discharge Clinical Impression: Otitis media Qualifiers: Chronicity: acute Laterality: left Patient Disposition: Home, Self-Care Instructions: Ear Infection (ED) Additional Instructions: You were evaluated in the emergency department today for ear pain. Your evaluation suggests that your pain is due to an ear infection. Please take your prescribed antibiotics as directed for the full course of the medication. Please follow up with your primary care provider within two days. Return to the emergency department if you experience hearing loss, discharge from your ear, headaches, fevers, recurrent vomiting, or any other concerning symptoms. Prescriptions: New amoxicillin 875 mg tablet 875 mg PO BID Qty: 14 0RF No Action omeprazole magnesium [Prilosec OTC] 20 mg tablet,delayed release (DR/EC) 20 mg PO DAILY@0630 30 Days Qty: 30 6RF fluticasone propionate 50 mcg/actuation spray,suspension 1 spray intranasal DAILY Qty: 16 1RF Rx Instructions: administer into each nostril sennosides [senna] 8.6 mg tablet 17.2 mg PO BID 30 Days Qty: 120 6RF cyanocobalamin (vitamin B-12) 1,000 mcg Tablet 1,000 mcg PO DAILY pyridoxine (vitamin B6) 50 mg tablet 50 mg PO DAILY carvedilol 3.125 mg tablet 3.125 mg PO BID furosemide 80 mg tablet 80 mg PO DAILY 90 Days Qty: 90 1RF cyclobenzaprine 5 mg tablet 5 mg PO BEDTIME Qty: 14 0RF citalopram 20 mg tablet 20 mg PO DAILY 90 Days Qty: 90 1RF melatonin 10 mg capsule 10 mg PO BEDTIME PRN (Reason: sleep) 90 Days Qty: 90 1RF gabapentin 300 mg capsule 300 mg PO TID 30 Days Qty: 90 1RF ferrous sulfate 325 mg (65 mg iron) tablet,delayed release (DR/EC) 325 mg PO BID [facility]oni Rx 1-60-300 mg-mg-mcg tablet 1 tab PO DAILY ergocalciferol (vitamin D2) [Vitamin D2] 1,250 mcg (50,000 unit) capsule 1,250 mcg PO QWEEK buspirone 5 mg tablet 5 mg PO TID midodrine 5 mg tablet 5 mg PO TID meclizine 25 mg tablet 25 mg PO BID PRN (Reason: dizziness) 30 Days Qty: 60 1RF Print Language: Georgian
[2023-06-25 13:54] VITALS: BP 139/77; PULSE 82; RESP 16; TEMP 36.6; O2SAT 100
== END 2023-06-25 13:55 | disposition home or self-care (01) ==
LOC: HO.ED 13:50
PROVIDERS: Emergency Provider Emergency Medicine; PCP Internal Medicine
DX: H66.93 Otitis media, unspecified, bilateral (principal); H92.03 Otalgia, bilateral; Z79.899 Other long term (current) drug therapy
CPT/HCPCS: 99282; 99283

== ENCOUNTER 2023-06-26 12:50 | Outpatient (AMB) | payer MEDICARE, MEDICAID, SELFPAY ==
--- NOTE | 2023-06-26 12:54 | A.OFFPC_ITS ---
Vital Signs 06/26/23 12:55 Height 5 ft 5 in Weight 124 lb BMI 20.6 BP 116/62 Blood Pressure Location Lt brachial Position Sitting Intake Visit Reasons: weight loss/bariatric surgery Intake Note: Patient here for follow up weight loss, bariatric surgery, ear infection, feet swelling Medical Lab Technician Required: No Accompanied by: Self / Same As Patient Allergies ibuprofen Allergy (Severe, Verified 06/26/23 13:14) Unknown nifedipine Allergy (Intermediate, Verified 06/26/23 13:14) hives, leg edema Medication List - Last Reconciled 06/26/23 by Rozina Lang MD amoxicillin 875 mg PO BID buspirone 5 mg PO TID carvedilol 3.125 mg PO BID citalopram 20 mg PO DAILY 90 days cyanocobalamin (vitamin B-12) 1,000 mcg PO DAILY cyclobenzaprine 5 mg PO BEDTIME ergocalciferol (vitamin D2) (Vitamin D2) 1,250 mcg PO QWEEK ferrous sulfate 325 mg PO BID fluticasone propionate 50 mcg/actuation 1 spray intranasal DAILY furosemide 80 mg PO DAILY 90 days gabapentin 300 mg PO TID 30 days meclizine 25 mg PO BID PRN 30 days melatonin 10 mg PO BEDTIME PRN 90 days midodrine 5 mg PO TID omeprazole magnesium (Prilosec OTC) 20 mg PO DAILY@0630 30 days pyridoxine (vitamin B6) 50 mg PO DAILY vit B comp no.0-dgbov-Q-biotin 1-60-300 mg-mg-mcg ([facility]oni Rx) 1 tab PO DAILY Tobacco use date assessed: 02/24/23 Dental Screening Dental Screen Date: 02/24/23 HPI HPI Comments History of Present Illness Details This is a 52-year-old female with moderate major depression, malnutrition, GERD, end-stage renal disease on hemodialysis and idiopathic h ypotension that comes today complaining of constant abdominal pain and vomiting after eating due to her stomach being small after bariatric surgery. She follows with Dr. Rosen for this matter which will reverse the surgery and then she will be able to gain weight and have her renal transplant. She has malnutrition due to this matter and labs were ordered as per recommendation of [facility] dietitian. Depression has been stable with citalopram. GERD stable with PPIs. She received hemodialysis 3 times a week. On midodrine for her low blood pressure. 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 Lumbar back pain with radiculopathy affecting left lower extremity Physical exam (~02/14/21) Peritoneal dialysis catheter in place Polyarthralgia Dyslipidemia Family history of ovarian cancer Abnormal mammogram of right breast Angina pectoris syndrome Chest pain Constipation Nephrosclerosis Renal interstitial fibrosis Obesity (BMI 30-39.9) Back pain Anemia GERD (gastroesophageal reflux disease) History of headache HTN (hypertension) Surgical History S/P arteriovenous (AV) graft placement History of sleeve gastrectomy Fistula Hx of colonoscopy Hx of hysterectomy Hx of tubal ligation History of endometrial ablation Family History Father Asthma Mother Asthma Hypertension Ovarian cancer Maternal Grandfather Myocardial infarction Paternal Grandmother Stroke Social History Household Members: Spouse and Children Housing: Apartment Do you presently have visiting nurse or other home services: No Alcohol intake: current Alcohol intake frequency: holidays/special occasions only Alcohol type: beer Comment: Patient doesn't want bed alarm on Patient Tobacco Use Status: Current everyday Tobacco user Tobacco use type: Cigarette Cigarettes Per Day: 2 Years Smoked: 10+ e-Cigarette/Vaping Use: Never Used Second Hand Smoke Exposure: No Advance Directives Date on File: 07/28/21 service: No Current occupational status: employed Cognitive needs: No Hearing needs: No Vision needs: Yes (reading glasses) Female Reproductive History Menstrual Age of Menarche: 10 Questionnaire Thrive Questionnaire Date Thrive assessed: 02/24/23 JULIA-7 AMB Questionnaire JULIA-7 Date JULIA - 7 assessed: 02/24/23 Source: Developed by Drs. Brandan Schmitz, Tricia Asher, Carlos Blue and colleagues, with an educational lore from [employer]. Review of Systems Const All systems reviewed & are unremarkable except as noted in HPI and below Card Denies chest pain at rest, Denies chest pain with activity, Denies edema, Denies irregular heart rhythm, Denies claudication, Denies dyspnea, Denies dyspnea on exertion, Denies orthopnea, Denies paroxysmal nocturnal dyspnea and Denies slow heart rate Resp Denies cough, Denies dyspnea and Denies dyspnea on exertion GI Reports abdominal pain and Reports vomiting Physical exam (Primary Care) Vital Signs: Last Vital Signs BP 116/62 06/26/23 12:55 BMI result Body Mass Index 20.6 Tobacco/Smoking Status: Tobacco use Status Tobacco use date assessed 02/24/23 06/26/23 13:02 Patient Tobacco Use Status Current everyday Tobacco 06/26/23 13:02 Tobacco use type Cigarette 06/26/23 13:02 e-Cigarette/Vaping Use Never Used 06/26/23 13:02 Thrive Assessment: Date of Thrive Assessment Date Thrive assessed 02/24/23 06/26/23 13:02 Resp Effort & Inspection: normal respiratory effort Auscultation: clear to auscultation bilaterally Cardio Jugular venous distension: no JVD Rate: regular rate Rhythm: regular rhythm Heart sounds: Murmur heart sound present Extrem General: Yes full ROM Assessment and Plan Assessment & Plan (1) Moderate major depression: Code(s): F32.1 - Major depressive disorder, single episode, moderate Plan: Continue citalopram. (2) Malnutrition: Code(s): E46 - Unspecified protein-calorie malnutrition Plan: Labs ordered. (3) GERD (gastroesophageal reflux disease): Code(s): K21.9 - Gastro-esophageal reflux disease without esophagitis Plan: Continue PPIs (4) ESRD on dialysis: Comment: [id number] Code(s): N18.6 - End stage renal disease; Z99.2 - Dependence on renal dialysis Plan: Continue hemodialysis 3 times a week. (5) Idiopathic hypotension: Code(s): I95.0 - Idiopathic hypotension Plan: Continue midodrine. Orders: Orders CA echo transthoracic complete Today R01.1 - Cardiac murmur, unspecified Medications: New acetic acid 2% apply to (cotton) wick; replace wick every 24 hours 3 drps otic (ear) left Q6H 7 days 15 mL 0RF Refilled furosemide 80 mg PO DAILY 90 days 90 tabs 1RF gabapentin 300 mg PO TID 30 days 90 caps 1RF melatonin 10 mg PO BEDTIME 90 days PRN 90 caps 1RF sleep Coding Level of Care Code Est Pt Level 4 (53524) Diagnoses Moderate major depression F32.1 Malnutrition E46 GERD (gastroesophageal reflux disease) K21.9 ESRD on dialysis N18.6; Z99.2 Idiopathic hypotension I95.0 Time Spent (min) 25
[2023-06-26 12:55] VITALS: BP 116/62; BMI 20.6
== END 2023-06-26 13:31 | disposition home or self-care (01) ==
PROVIDERS: PCP Internal Medicine; Visit Provider Internal Medicine
DX: E46 Unspecified protein-calorie malnutrition (principal); F32.1 Major depressive disorder, single episode, moderate; N18.6 End stage renal disease; Z99.2 Dependence on renal dialysis; K21.9 Gastro-esophageal reflux disease without esophagitis; I95.0 Idiopathic hypotension
CPT/HCPCS: 99214

== ENCOUNTER 2023-06-26 13:42 | Outpatient (REF) | payer MEDICARE, MEDICAID, SELFPAY ==
[2023-06-26 14:03] LABS: MANUAL DIFF FLAG NO
[2023-06-26 14:50] LABS: Basophils Absolute Auto 0.1 X10*3/uL (0.0-0.2); Basophils Percent Auto 1.1 % (0-2); Eosinophils Absolute Auto 0.1 X10*3/uL (0.0-0.4); Eosinophils Percent Auto 1.1 % (0-4); Hematocrit 25.4 % (37.0-47.0); Hemoglobin 8.8 g/dl (12.0-16.0); Imm Gran Abs Auto 0.01 X10*3/uL (0.00-0.03); Imm Gran Pct Auto 0.2 % (0.0-0.4); Lymphocytes Absolute Auto 1.5 X10*3/uL (1.2-4.9); Lymphocytes Percent Auto 31.7 % (20-40); Mean Corpuscular HGB Conc 34.6 g/dl (31.0-35.0); Mean Corpuscular Hemoglobin 32.6 pg (27.0-33.0); Mean Corpuscular Volume 94.1 fL (80.0-98.0); Monocytes Absolute Auto 0.3 X10*3/uL (0.1-1.2); Monocytes Percent Auto 5.7 % (2-11); Neutrophils Absolute Auto 2.8 x10*3/uL (2.0-8.3); Neutrophils Percent Auto 60.2 % (45-73); Platelet Count 259 X10*3/uL (160-400); Red Cell Distribution Width 18.4 % (11.0-16.0); White Blood Count 4.6 X10*3/uL (4.8-10.8)
[2023-06-26 15:42] LABS: Iron 50 mcg/dL (30-160); Percent Iron Saturation 57 % (15-50); Total Iron Binding Capacity 88 mcg/dL (228-428); Unsaturated Iron Binding 38 ug/dL
[2023-06-26 15:46] LABS: Vitamin D 25-OH Total 24.9 ng/mL (>30)
[2023-06-26 15:57] LABS: Folate 10.8 ng/mL (> or = 4.0); Vitamin B12 1015 pg/mL (200-900)
[2023-06-30 11:57] LABS: Copper, serum 36 mcg/dL (70-175)
[2023-06-30 12:03] LABS: Zinc 34 mcg/dL (60-130)
[2023-06-30 14:54] LABS: Vitamin B1 6 nmol/L (8-30)
[2023-06-30 17:54] LABS: Vitamin A 14 mcg/dL (38-98)
[2023-06-30 18:19] LABS: Alpha-Tocopherol 7.6 mg/L (5.7-19.9); Beta-Gamma Tocopherol <1.0 mg/L (<=4.3)
[2023-07-01 00:29] LABS: Vitamin K1 251 pg/mL (130-1500)
== END 2023-06-26 13:43 | disposition home or self-care (01) ==
LOC: HO.LAB 13:42
PROVIDERS: PCP Internal Medicine; Visit Provider Internal Medicine
DX: E46 Unspecified protein-calorie malnutrition (principal); E55.9 Vitamin D deficiency, unspecified; D64.9 Anemia, unspecified
CPT/HCPCS: 36415; 82306; 82525; 82607; 82746; 83540; 84425; 84446; 84590; 84597; 84630; 85025

== ENCOUNTER 2023-07-03 09:11 | Outpatient (AMB) | payer MEDICARE, MEDICAID, SELFPAY ==
--- NOTE | 2023-07-03 09:13 | MHC.OFFVIS ---
Vital Signs 07/03/23 09:19 Height 5 ft 5 in Weight 124 lb 4 oz BMI 20.7 BP 162/86 H Blood Pressure Location Lt brachial Position Sitting Respiration 16 Pulse 83 Pulse Source Pulse Oximeter Pulse Oximetry (%) 100 Oxygen Delivery Method Room Air Intake Visit Reasons: RIGHT L4, L5 AND L5, S1 TFESI Intake Note: Patient comes in for post-op appointment. She mentioned she fell two weeks ago and hurt her back. Reports pain 8/10. Allergies ibuprofen Allergy (Severe, Verified 07/03/23 09:18) Unknown nifedipine Allergy (Intermediate, Verified 07/03/23 09:18) hives, leg edema HPI Comments Details: Meliza is in my office today after yet another repeat transforaminal epidural steroid injection which was done on 06/10/2023. She reported today that this time the pain relief lasted only 10-14 days. She relates pain exacerbation to some trauma she recently fell however the trauma was not very prominent and unlikely it would cause increased pain for prolonged period of time. Before that she had several epidural steroid injections as below the last 1 was on 02/11/2023. Those injections initially alleviated her pain in significant extent. However unfortunately now we need to think about neuromodulation to help her pain. Spinal cord stimulator discussed with the patient. She is scheduled for the surgery with bariatric surgeon to do a sleeve revision. It looks like that her sleeve surgery was too tight and the patient is constantly nauseous and unable to hold food down. Her surgery scheduled for 07/09/2023. Psychological evaluation related to SCS was discussed with the patient. Patient stated that she can not afford the co-pay for [employer] psychological evaluation. I then recommended her to go back to her [facility] counselor and request psychological evaluation to be done in the office of her counselor. She is now on hemodialysis. She reports axial back pain with radiation into bilateral lower extremities. I now believe that the best way to treat her condition would be [employer] SCS. 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 Lumbar back pain with radiculopathy affecting left lower extremity Physical exam (~02/14/21) Peritoneal dialysis catheter in place Polyarthralgia Dyslipidemia Family history of ovarian cancer Abnormal mammogram of right breast Angina pectoris syndrome Chest pain Constipation Nephrosclerosis Renal interstitial fibrosis Obesity (BMI 30-39.9) Back pain Anemia GERD (gastroesophageal reflux disease) History of headache HTN (hypertension) Surgical History S/P arteriovenous (AV) graft placement History of sleeve gastrectomy Fistula Hx of colonoscopy Hx of hysterectomy Hx of tubal ligation History of endometrial ablation Family History Father Asthma Mother Asthma Hypertension Ovarian cancer Maternal Grandfather Myocardial infarction Paternal Grandmother Stroke Social History Household Members: Spouse and Children Housing: Apartment Do you presently have visiting nurse or other home services: No Alcohol intake: current Alcohol intake frequency: holidays/special occasions only Alcohol type: beer Comment: Patient doesn't want bed alarm on Patient Tobacco Use Status: Current everyday Tobacco user Tobacco use type: Cigarette Cigarettes Per Day: 2 Years Smoked: 10+ e-Cigarette/Vaping Use: Never Used Second Hand Smoke Exposure: No Advance Directives Date on File: 07/28/21 service: No Current occupational status: employed Cognitive needs: No Hearing needs: No Vision needs: Yes (reading glasses) Female Reproductive History Menstrual Age of Menarche: 10 Review of Systems Const All systems reviewed & are unremarkable except as noted in HPI and below Physical Exam Const General: cooperative, comfortable and no acute distress Orientation/consciousness: patient oriented x3 Eyes General: appearance normal, both eyes and all related structures Pupils: Equal, round and reactive pupils present EOM: EOMs intact bilaterally Neck Neck: Yes full ROM Chest Chest palpation & inspection: normal inspection of the chest Resp Effort & Inspection: normal respiratory effort, able to speak in complete sentences and normal respiratory pattern Cardio Jugular venous distension: no JVD GI Other: On inspection a graft on the right upper extremity right arm. Back/Spine/Pelvis Other: Tenderness on palpation on paraspinal spinal region of lumbar spine. SLR positive on the right. [place] positive on the right. Neuro General: patient oriented x3 and gait normal Cranial nerves: Yes CN's II-XII intact bilaterally, Yes Equal, round and reactive pupils present and Yes Ability to bilaterally elevate shoulders present Gait exam (Neuro): Normal gait present Motor exam (neuro): 5/5 motor strength present throughout Extrem General: No pedal edema Psych Speech and movement: Normal speech and movement present Affect: normal affect Attitude: cooperative Thought process: Normal thought process present Thought content: Normal thought content present Insight: Good insight present (Psych) Judgement: Good judgement present (Psych) Results Reviewed Results Reviewed: MRI lumbar spine 0 7 09/07/2020. Sagittal alignment: 4.5 mm of grade 1 degenerative spondylolisthesis L4-5 3 mm grade 1 spondylolisthesis L5-S1 possible pars defect at the left at L5 on current study. Trace retrolisthesis at L2-L3 lordotic curvature maintained. Disc space height [id number] disc space height loss and disc desiccation at L4-5 is stable slight disc space height loss at L2-L3 stable in appearance with minimal disc desiccation. Bone marrow type 2 degenerative marrow signal changes along the endplates at L4-5 and L5-S1, stable in appearance. Small benign vertebral hemangiomata at the L1 and L2 vertebral bodies are stable. Spinal cord terminates at L1. Morphology and signal is normal. L5-S1: Disc bulging and unroofing of the posterior disc margin related to mild spondylolisthesis with a small left subarticular to foraminal disc protrusion stable in appearance with moderate left-sided and moderate to severe right-sided facet arthropathy unchanged. No significant canal stenosis. Mild left-sided neural foraminal narrowing is stable. Cannot exclude pars defect on the left. L4-5: Unroofing of the posterior disc margin stable in appearance consistent with spondylolisthesis. Mild anterolateral spondylosis noted. Right-sided foraminal extruded disc herniation with slight cephalad migration is again noted with associated right L4 nerve root impingement unchanged in appearance. Small central disc herniation with slight flattening of the dural sac is noted stable in appearance. Severe bilateral facet arthropathy is noted again. There is 5 mm synovial cyst arising along the posterior inferior margin of the right facet joint unchanged. There is tiyr-[id number]-[id number] narrowing of the right subarticular zone stable in appearance without significant central canal stenosis. There is moderate to severe right-sided neural foraminal compromise. L3-L4: Small left subarticular disc protrusion stable in appearance without neural impingement. Mild right lateral posterolateral disc osteophyte complex stable in appearance without neural impingement. No significant facet arthropathy canal or neural foraminal stenosis. L2-L3: Slight retrolisthesis of this level has developed since previous exam with slight flattening of the dural sac. Small right inferior foraminal/extraforaminal disc protrusion with an annular fissure again noted without neural impingement. No significant facet arthropathy. Mild foraminal narrowing on the right stable in appearance. No significant canal stenosis. L1-L2 no disc bulge or herniation and no significant spondylosis. No facet joint canal or neural foraminal stenosis. 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 She went for gastric sleeve surgery and she reported unable to consume any food. She goes for revision on 07/09/2023. She lost lots of weight. She is no longer morbidly obese. She is ESRD on HD Friday. MRI from her previous practitioners the results are dictated as above. She had classical picture of radiculopathy on the right and at the same time it is corresponding to L4-5 disc herniation on the right. Originally transforaminal L4-5 epidural steroid injection resulted in 1 year of pain relief however the effectiveness of epidural steroid injections is very minimal. SCS [employer] was discussed. Her pain is axial back pain with radiation into bilateral lower extremities. The patient agreed to go for a trial. However she can not afford pay for psychological evaluation. We agreed that she will schedule an appointment with [facility] counselor/psychologist and obtain psychological evaluation from them. When her psychological evaluation will be ready I will schedule her for a trial of [employer] SCS. Possibility of switching the device to [employer] during the trial is contemplated. Patient Instructions: I here by testify that I spent 32 minutes in conversation with this patient as well as planning her care organizing this note. 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
[2023-07-03 09:19] VITALS: BP 162/86; PULSE 83; RESP 16; O2SAT 100; BMI 20.7
== END 2023-07-03 09:30 | disposition home or self-care (01) ==
PROVIDERS: PCP Internal Medicine; Visit Provider Anesthesiology
DX: N18.6 End stage renal disease (principal); Z99.2 Dependence on renal dialysis; M54.16 Radiculopathy, lumbar region; M51.26 Other intervertebral disc displacement, lumbar region; M51.36 Other intervertebral disc degeneration, lumbar region; M48.00 Spinal stenosis, site unspecified
CPT/HCPCS: 99214

== ENCOUNTER → 2023-07-03 09:11 | Outpatient (BNVA) | payer MEDICARE, MEDICAID, SELFPAY | PROVIDERS: PCP Internal Medicine; Visit Provider Anesthesiology | DX: M54.16 Radiculopathy, lumbar region (principal); M51.26 Other intervertebral disc displacement, lumbar region; M51.36 Other intervertebral disc degeneration, lumbar region; M48.00 Spinal stenosis, site unspecified; N18.6 End stage renal disease; Z99.2 Dependence on renal dialysis | CPT/HCPCS: 99212 ==

== ENCOUNTER → 2023-08-07 23:59 | Outpatient (BNV) | payer MEDICARE, MEDICAID, SELFPAY | PROVIDERS: PCP Internal Medicine; Visit Provider Internal Medicine | DX: I12.0 Hypertensive chronic kidney disease with stage 5 chronic kidney disease or end stage renal disease (principal); K52.9 Noninfective gastroenteritis and colitis, unspecified; N18.6 End stage renal disease | CPT/HCPCS: G0180 ==

== ENCOUNTER 2023-08-10 01:56 | Inpatient (IN) | payer MEDICARE, MEDICAID, SELFPAY ==
[2023-08-10] VITALS (17 sets, daily range): BP systolic 96–142; BP diastolic 57–83; PULSE 78–96; RESP 11–20; TEMP 36.3–37.1; O2SAT 98–100; BMI 19.7
--- NOTE | 2023-08-10 | ECG_ITS ---
Test Reason : SYNCOPE Blood Pressure : / mmHG Vent. Rate : 088 BPM Atrial Rate : 088 BPM P-R Int : 114 ms QRS Dur : 074 ms QT Int : 372 ms P-R-T Axes : 031 064 056 degrees QTc Int : 450 ms Normal sinus rhythm Normal ECG When compared with ECG of 04-MAY-2021 10:36, Nonspecific T wave abnormality no longer evident in Lateral leads Referred By: Generic ED Physician Electronically Signed By:CHARLY ODELL MD
--- NOTE | 2023-08-10 02:22 | ED_ITS ---
HPI - General Adult General Chief complaint: Syncope Stated complaint: [place] EPISODES Time Seen by Provider: 08/10/23 02:20 Source: patient Mode of arrival: EMS Limitations: no limitations History of Present Illness ED Provider: joseline BULLOCK narrative: Patient with history of hypertension, end-stage renal disease on hemodialysis Fri/fri/fri, gastric sleeve surgery [address] [facility] Dr[address] [place]oto status post revision to gastric bypass on 07/09/23 had bleeding ulcer at the anastomosis which cause bleeding postop requiring 2 units of blood transfusion endoscopy was done showed no active bleeding at the time patient was doing fine had dialysis yesterday earlier today started feeling weak prior to arrival had 3 dark stools also vomited 3 times with coffee colored and small amount of fresh blood felt weak and passed out. Also has some discomfort in left abdomen no fever no chills Related Data Home Medications ?Medication ?Instructions ?Recorded ?Confirmed ferrous sulfate 325 mg (65 mg 325 mg PO BID 05/11/20 06/26/23 iron) tablet,delayed release cyanocobalamin (vitamin B-12) 1,000 mcg PO DAILY 10/17/20 06/26/23 1,000 mcg tablet pyridoxine (vitamin B6) 50 mg 50 mg PO DAILY 06/06/21 06/26/23 tablet buspirone 5 mg tablet 5 mg PO TID anxiety 07/05/21 06/26/23 carvedilol 3.125 mg tablet 3.125 mg PO BID 07/05/21 06/26/23 ergocalciferol (vitamin D2) 1,250 1,250 mcg PO QWEEK 07/05/21 06/26/23 mcg (50,000 unit) capsule (Vitamin D2) vitamin B comp no.3-folic acid 1 1 tab PO DAILY 07/05/21 06/26/23 mg-vit C 60 mg-biotin 300 mcg tablet ([facility] Rx) midodrine 5 mg tablet 5 mg PO TID 03/25/23 06/26/23 Previous Rx's ?Medication ?Instructions ?Recorded omeprazole magnesium 20 mg 20 mg PO DAILY@0630 Acid Reflux 30 06/12/21 tablet,delayed release (Prilosec days #30 tabs OTC) fluticasone propionate 50 1 spray intranasal DAILY #16 grams 06/13/22 mcg/actuation nasal spray,suspension citalopram 20 mg tablet 20 mg PO DAILY 90 days #90 tabs 02/24/23 cyclobenzaprine 5 mg tablet 5 mg PO BEDTIME #14 tabs 02/24/23 meclizine 25 mg tablet 25 mg PO BID PRN dizziness 30 days 03/25/23 #60 tabs amoxicillin 875 mg tablet 875 mg PO BID #14 tabs 06/25/23 acetic acid 2 % ear solution 3 drp otic (ear) left Q6H 7 days 06/26/23 #15 mL furosemide 80 mg tablet 80 mg PO DAILY 90 days #90 tabs 06/26/23 gabapentin 300 mg capsule 300 mg PO TID 30 days #90 caps 06/26/23 melatonin 10 mg capsule 10 mg PO BEDTIME PRN sleep 90 days 06/26/23 #90 caps copper gluconate 2 mg capsule 2 mg PO DAILY 90 days #90 caps 07/01/23 thiamine HCl (vitamin B1) 100 mg 100 mg PO DAILY 90 days #90 tabs 07/01/23 tablet vitamin A 2,400 mcg capsule 2,400 mcg PO DAILY 90 days #90 caps 07/01/23 zinc acetate 50 mg (zinc) capsule 50 mg PO DAILY 90 days #90 caps 07/01/23 Allergies Allergy/AdvReac Type Severity Reaction Status Date / Time ibuprofen Allergy Severe Unknown Verified 08/10/23 02:05 nifedipine Allergy Intermediate hives, leg Verified 08/10/23 02:05 edema Review of Systems 2 Review of Systems: Yes all other systems are reviewed and are negative PMFSH Past Medical History Medical History Moderate major depression ESRD on dialysis Physical exam Spondylosis without myelopathy or radiculopathy, lumbar region Spinal stenosis 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 Lumbar back pain with radiculopathy affecting left lower extremity Physical exam (~02/14/21) Peritoneal dialysis catheter in place Polyarthralgia Dyslipidemia Family history of ovarian cancer Abnormal mammogram of right breast Angina pectoris syndrome Chest pain Constipation Nephrosclerosis Renal interstitial fibrosis Obesity (BMI 30-39.9) Back pain Anemia GERD (gastroesophageal reflux disease) History of headache HTN (hypertension) Surgical History S/P arteriovenous (AV) graft placement History of sleeve gastrectomy Fistula Hx of colonoscopy Hx of hysterectomy Hx of tubal ligation History of endometrial ablation Family History Family History Father Asthma Mother Asthma Hypertension Ovarian cancer Maternal Grandfather Myocardial infarction Paternal Grandmother Stroke Social History Social History Household Members: Spouse and Children Housing: Apartment Do you presently have visiting nurse or other home services: No Alcohol intake: current Alcohol intake frequency: holidays/special occasions only Alcohol type: beer Comment: Patient doesn't want bed alarm on Patient Tobacco Use Status: Current everyday Tobacco user Tobacco use type: Cigarette Cigarettes Per Day: 2 Years Smoked: 10+ Smoked in Last 30 Days: Yes e-Cigarette/Vaping Use: Never Used Second Hand Smoke Exposure: No Use of substances other than those prescribed or required for medical reasons: No Advance Directives: Yes Advance Directives on File: Yes Advance Directives Date on File: 04/27/20 Patient : No service: No Current occupational status: employed Cognitive needs: No Hearing needs: No Vision needs: Yes (reading glasses) Physical Exam ED Vital Signs: Vital Signs - 24 hr 08/10/23 01:59 08/10/23 02:28 08/10/23 02:46 Temperature 97.9 F Pulse Rate 94 92 Respiratory Rate 20 16 Blood Pressure 117/72 112/75 Pulse Oximetry 100 99 100 Oxygen Delivery Method Room Air Room Air Room Air 08/10/23 04:16 08/10/23 04:31 08/10/23 05:10 Temperature 98.2 F 98.3 F Pulse Rate 90 95 93 Respiratory Rate 13 16 13 Blood Pressure 104/57 L 103/62 96/59 L Pulse Oximetry 100 100 Oxygen Delivery Method Room Air Room Air 08/10/23 05:28 Temperature 98.3 F Pulse Rate 88 Respiratory Rate 14 Blood Pressure 104/62 Pulse Oximetry Oxygen Delivery Method BMI result Body Mass Index 19.7 Appearance: Alert. Oriented X3. No acute distress. Eyes: pallor+ ENT: Pharynx normal. Oral Mucosa moist Neck: Normal inspection. Neck supple. CVS: Normal heart rate and rhythm. Pulses normal. Respiratory: No respiratory distress. Equal air entry bilateral, no wheezing/rales/rhonchi Abdomen: Soft and mild tenderness upper abdomen Bowel sounds are present, no mass palpable, no CVA tenderness rectal: Guaiac-positive dark stool Skin: Skin warm and dry. Normal skin color. Normal skin turgor. Extremities: No lower extremity edema. No calf tenderness AV fistula left arm Neuro: Oriented X 3. No motor deficit. No sensory deficit.No cerebellar signs , cranial nerves II-XII intact Medications Administered Discontinued Medications Generic Name Dose Route Start Last Admin Trade Name Freq PRN Reason Stop Dose Admin Sodium Chloride 100 mls @ 100 mls/hr 08/10/23 04:38 08/10/23 06:11 Ns IV 08/10/23 05:37 Infused ONCE ONE Infusion Morphine Sulfate 4 mg 08/10/23 04:08 08/10/23 04:14 Morphine Sulfate 4 Mg/Ml Cartridge IVPUSH 08/10/23 04:09 4 mg ONCE ONE Administration Protocol Ondansetron HCl 4 mg 08/10/23 02:50 08/10/23 03:00 Ondansetron Hcl 4 Mg/2 Ml Vial IVPUSH 08/10/23 02:51 4 mg ONCE ONE Administration Pantoprazole Sodium 80 mg 08/10/23 02:50 08/10/23 02:59 Pantoprazole Sodium 40 Mg/10 Ml Vial IVPUSH 08/10/23 02:51 80 mg ONCE ONE Administration Medical Decision Making Medical Decision Making [facility] Narrative: Patient with history of recent gastric bypass surgery with anastomosis bleed requiring blood transfusion comes here with rectal bleed and hematemesis initially blood pressure was low responded to IV hydration at this time on arrival vitals are stable no more active bleed in the ER started on Protonix will admit patient for blood transfusion and further evaluation Differential Diagnosis Differential Diagnoses: The differential diagnosis associated with the presentation includes Upper GI bleed/anastomosis ulcer/gastritis Admission/Observation Consideration of admission/observation: Escalation of care including admission/observation considered Consult Healthcare Provider Management of the patient was discussed with: Hospitalist Lab Data [facility] Lab Attestation statement: I reviewed the patient's lab results. 08/10/23 02:40 08/10/23 06:34 Labs: Lab Results 08/10/23 08/10/23 08/10/23 Range/Units 02:40 02:42 02:56 WBC 7.7 (4.8-10.8) X10*3/uL RBC 2.35 L (4.20-5.50) X10*6/uL Hgb 7.4 L (12.0-16.0) g/dl Hct 22.3 L (37.0-47.0) % MCV 94.9 (80.0-98.0) fL MCH 31.5 (27.0-33.0) pg MCHC 33.2 (31.0-35.0) g/dl RDW 17.8 H (11.0-16.0) % Plt Count 181 D (160-400) X10*3/uL MPV 9.9 (9.4-12.3) fL Immature Gran % (Auto) 0.4 (0.0-0.4) % Neut % (Auto) 67.1 (45-73) % Lymph % (Auto) 23.5 (20-40) % [place] % (Auto) 7.0 (2-11) % Eos % (Auto) 1.4 (0-4) % Baso % (Auto) 0.6 (0-2) % Lymph # (Auto) 1.8 (1.2-4.9) X10*3/uL [place] # (Auto) 0.5 (0.1-1.2) X10*3/uL Eos # (Auto) 0.1 (0.0-0.4) X10*3/uL Baso # (Auto) 0.1 (0.0-0.2) X10*3/uL Abs Immat Gran (auto) 0.03 (0.00-0.03) X10*3/uL Absolute Neuts (auto) 5.2 (2.0-8.3) x10*3/uL Absolute Nucleated RBC 0.000 (0.0-0.012) X10*3/uL Nucleated RBC % (auto) 0.0 (0.0-0.2) /100WBC PT 13.0 (11.1-13.3) SEC INR 1.1 (0.9-1.1) Sodium 136 (135-145) mmol/L Potassium 5.8 H D (3.3-5.1) mmol/L Chloride 102 (96-108) mmol/L Carbon Dioxide 29 (22-29) mmol/L Anion Gap 11 L (12-20) BUN 43 H (9-16) mg/dL Creatinine 3.90 H (0.5-1.4) mg/dL Estim Creat Clear Calc 14.2 Estimated GFR 12 Random Glucose 90 (60-115) mg/dL Calcium 9.4 (8.4-10.2) mg/dL Total Bilirubin 0.4 (0.0-1.0) mg/dL AST 13 (5-31) U/L ALT 9 (0-31) U/L Alkaline Phosphatase 79 (39-117) U/L Total Protein 4.9 L (6.5-8.0) g/dL Albumin 2.6 L (3.5-5.0) g/dL Lipase 29 (8-78) U/L Stool Occult Blood POSITIVE (NEGATIVE) Blood Type O Positive Antibody Screen NEGATIVE Crossmatch See Detail Independent Interpretation I performed an independent interpretation of an: EKG Interpretation: Normal sinus rhythm heart rate 88 beats per minute normal interval normal axis no acute ST T wave changes no acute ischemia Critical Care Time Critical Care Time Critical Care Time: Yes Total Critical Care Time: 55 Attestation: The patient was critically ill with a high probability of imminent or life threatening deterioration. I spent greater than ?60??minutes of discontinuous time evaluating the patient,delivering critical care at the bedside, discussing and evaluating pertinent data with consultants. Critical care time does not include time spent performing separately billable procedures or teaching. Total time spent performing critical care was 55???minutes. Discharge Plan Discharge Clinical Impression: Acute upper gastrointestinal bleeding, Severe anemia, End stage chronic kidney disease Patient Disposition: Admitted As Inpatient
--- NOTE | 2023-08-10 02:25 | PC.NURSE ---
pt reporting she fell from standing when she passed out. doesn't know if she hit anything but denies pain other than abdominal pain. reporting blood coming out of nose, in vomit and stool.
--- NOTE | 2023-08-10 02:44 | MHC.EDTECH ---
Patient BIBA,changed into hospital attire,placed on the corporate operations compliance manager,vitals done ,EKG taken per order and signed by provider,Labs and type N screen obtained and sent to lab, blood band placed on left wrist
[2023-08-10 02:46] LABS: MANUAL DIFF FLAG NO
[2023-08-10 02:47] LABS: Basophils Absolute Auto 0.1 X10*3/uL (0.0-0.2); Basophils Percent Auto 0.6 % (0-2); Eosinophils Absolute Auto 0.1 X10*3/uL (0.0-0.4); Eosinophils Percent Auto 1.4 % (0-4); Hematocrit 22.3 % (37.0-47.0); Hemoglobin 7.4 g/dl (12.0-16.0); Imm Gran Abs Auto 0.03 X10*3/uL (0.00-0.03); Imm Gran Pct Auto 0.4 % (0.0-0.4); Lymphocytes Absolute Auto 1.8 X10*3/uL (1.2-4.9); Lymphocytes Percent Auto 23.5 % (20-40); Mean Corpuscular HGB Conc 33.2 g/dl (31.0-35.0); Mean Corpuscular Hemoglobin 31.5 pg (27.0-33.0); Mean Corpuscular Volume 94.9 fL (80.0-98.0); Mean Platelet Volume 9.9 fL (9.4-12.3); Monocytes Absolute Auto 0.5 X10*3/uL (0.1-1.2); Neutrophils Absolute Auto 5.2 x10*3/uL (2.0-8.3); Neutrophils Percent Auto 67.1 % (45-73); Platelet Count 181 X10*3/uL (160-400); Red Blood Count 2.35 X10*6/uL (4.20-5.50); Red Cell Distribution Width 17.8 % (11.0-16.0); White Blood Count 7.7 X10*3/uL (4.8-10.8)
[2023-08-10 02:52] LABS: INTERNATIONAL NORM RATIO 1.1 (0.9-1.1)
[2023-08-10] MEDS: Pantoprazole Sodium 40 MG/10 ML VIAL 80 MG IVPUSH (02:59)
--- NOTE | 2023-08-10 02:59 | MHC.EDTECH ---
Second Type drawn and sent to lab,assisted provider with a rectal exam,occult stool obtained and sent to lab
[2023-08-10] MEDS: ondansetron HCL 4 MG/2 ML VIAL IVPUSH (03:00)
[2023-08-10 03:02] LABS: Alanine Aminotransferase 9 U/L (0-31); Albumin Level 2.6 g/dL (3.5-5.0); Alkaline Phosphatase 79 U/L (39-117); Anion Gap 11 (12-20); Aspartate Amino Transferase 13 U/L (5-31); Bilirubin Total 0.4 mg/dL (0.0-1.0); Blood Urea Nitrogen 43 mg/dL (9-16); Calcium 9.4 mg/dL (8.4-10.2); Carbon Dioxide 29 mmol/L (22-29); Chloride 102 mmol/L (96-108); Creatinine Clr Calc Pharmacy 14.2; Estimated Glomerular Filt Rate 12; Glucose Random 90 mg/dL (60-115); Lipase 29 U/L (8-78); Potassium 5.8 mmol/L (3.3-5.1); Sodium 136 mmol/L (135-145); Total Protein 4.9 g/dL (6.5-8.0)
[2023-08-10 03:15] LABS: OBS Int Ctl Valid YES; OBS1 POSITIVE (NEGATIVE)
[2023-08-10] MEDS: Morphine Sulfate 4 MG/ML CARTRIDGE IVPUSH (04:14)
--- NOTE | 2023-08-10 04:51 | MHC.EDTECH ---
Hourly rounds and vitals completed,belongings list completed and copy placed in chart.
--- NOTE | 2023-08-10 05:31 | PC.NURSE ---
pt tolerating transfusion well. 15 minutes spent at bedside for start of transfusion. will run for 4hrs. MD Morales also at bedside for admit
--- NOTE | 2023-08-10 05:45 | PM.IMHP ---
History of Present Illness Date of Service: 08/10/23 Attending physician on admission: Claudia Luque Chief Complaint: Coffee-ground vomiting, loss of consciousness Meliza Perry is a 53 years old woman with past medical history significant for end-stage renal disease on hemodialysis (MWF), GI bleeding, GERD, hemorrhoids, diverticulosis, gastric sleeve surgery, s/p recent (June 2023) revision of gastric bypass at [facility] and essential hypertension also to the ED via EMS after she had an event of loss of consciousness last night. She was found to have BP of 68/40 a receive NS bolus of 200 mL. She stated that she has been multiple events of coffee-ground vomiting as well as rectal bleeding (dark stools) associated with mild shortness on breath. She denied associated abdominal pain, distention or chest pain. Since Friday she has been taking Advil quite frequently for back pain (on Friday she took at least 6 pills of Advil). Does not take blood thinners. She denied alcohol or illicit drug use. She is ongoing tobacco smoker -smokes 2 cigarettes daily. In the ED, she was found to have stable vital signs, lowest BP is 96/59. There is no tachycardia and oxygen saturation is normal on room air. Blood workup showed no leukocytosis, hemoglobin 7.4 (it was 8.8 last month). INR is normal. Potassium is 5.8, there are no other electrolyte imbalances. Creatinine is 3.9 and BUN 43. There is no metabolic acidosis. Stool for occult blood is positive. ECG showed normal sinus rhythm with a heart rate of 88 beats per minutes without ischemic changes. ED Tx: Protonix 80 mg IV, Zofran 4 mg IV, morphine 4 mg IV. One unit PRBCs Review of Systems Review of Systems: All 12 systems were reviewed and normal except as noted in HPI. 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 Lumbar back pain with radiculopathy affecting left lower extremity Physical exam (~02/14/21) Peritoneal dialysis catheter in place Polyarthralgia Dyslipidemia Family history of ovarian cancer Abnormal mammogram of right breast Angina pectoris syndrome Chest pain Constipation Nephrosclerosis Renal interstitial fibrosis Obesity (BMI 30-39.9) Back pain Anemia GERD (gastroesophageal reflux disease) History of headache HTN (hypertension) Family History Father Asthma Mother Asthma Hypertension Ovarian cancer Maternal Grandfather Myocardial infarction Paternal Grandmother Stroke Surgical History S/P arteriovenous (AV) graft placement History of sleeve gastrectomy Fistula Hx of colonoscopy Hx of hysterectomy Hx of tubal ligation History of endometrial ablation Social History Household Members: Spouse and Children Housing: Apartment Do you presently have visiting nurse or other home services: No Alcohol intake: current Alcohol intake frequency: holidays/special occasions only Alcohol type: beer Comment: Patient doesn't want bed alarm on Patient Tobacco Use Status: Current everyday Tobacco user Tobacco use type: Cigarette Cigarettes Per Day: 2 Years Smoked: 10+ Smoked in Last 30 Days: Yes e-Cigarette/Vaping Use: Never Used Second Hand Smoke Exposure: No Use of substances other than those prescribed or required for medical reasons: No Advance Directives: Yes Advance Directives on File: Yes Advance Directives Date on File: 04/27/20 Patient : No service: No Current occupational status: employed Cognitive needs: No Hearing needs: No Vision needs: Yes (reading glasses) Meds Allergies Allergy/AdvReac Type Severity Reaction Status Date / Time ibuprofen Allergy Severe Unknown Verified 08/10/23 02:05 nifedipine Allergy Intermediate hives, leg Verified 08/10/23 02:05 edema Active Medications: Current Medications Pantoprazole Sodium (Pantoprazole Sodium 40 Mg/10 Ml Vial) 40 mg IVPUSH BID [facility] Sodium Chloride (0.9 % Sodium Chloride Flush 3 Ml Syringe) 3 ml IVFLUSH QSHIFT [facility] Home Medications ?Medication ?Instructions ?Recorded ?Confirmed ?Last Taken ?Type ferrous sulfate 325 mg (65 mg 325 mg PO BID 05/11/20 06/26/23 10/10/20 History iron) tablet,delayed release cyanocobalamin (vitamin B-12) 1,000 mcg PO DAILY 10/17/20 06/26/23 10/17/20 History 1,000 mcg tablet pyridoxine (vitamin B6) 50 mg 50 mg PO DAILY 06/06/21 06/26/23 Unknown History tablet buspirone 5 mg tablet 5 mg PO TID anxiety 07/05/21 06/26/23 09/27/21 History carvedilol 3.125 mg tablet 3.125 mg PO BID 07/05/21 06/26/23 06/03/23 History ergocalciferol (vitamin D2) 1,250 1,250 mcg PO QWEEK 07/05/21 06/26/23 Unknown History mcg (50,000 unit) capsule (Vitamin D2) vitamin B comp no.3-folic acid 1 1 tab PO DAILY 07/05/21 06/26/23 Unknown History mg-vit C 60 mg-biotin 300 mcg tablet (Lesly-Toni Rx) midodrine 5 mg tablet 5 mg PO TID 03/25/23 06/26/23 06/03/23 History Physical Exam Vital Signs and Narrative: Vital Signs: Last Vital Signs Temp 98.3 F 08/10/23 05:28 Pulse 88 08/10/23 05:28 Resp 14 08/10/23 05:28 BP 104/62 08/10/23 05:28 Pulse Ox 100 08/10/23 04:31 O2 Del Method Room Air 08/10/23 04:31 BMI result Body Mass Index 19.7 Constitutional - Awake and Alert, No apparent distress. Chronically ill-appearing. Pale. Cooperative. HEENT - Dry oral mucosa. Heart - RRR, No murmur. Lungs - Normal lung expansion, Normal respiratory effort, No respiratory distress, CTA bilaterally Abdomen - NT / ND; +BS; No rebound or guarding Extremities - no calf tenderness bilaterally, no swelling Musculoskeletal - Normal inspection, normal ROM Skin - Warm/Dry Neurological - Alert & oriented x3. No focal weakness grossly noted. Normal speech. Psychological - Appropriate affect Results Labs 08/10/23 02:40 08/10/23 02:40 Labs: Laboratory Results - last 24 hr 08/10/23 08/10/23 08/10/23 02:40 02:42 02:56 MCV 94.9 MCH 31.5 MCHC 33.2 RDW 17.8 H Plt Count 181 D MPV 9.9 Immature Gran % (Auto) 0.4 Neut % (Auto) 67.1 Lymph % (Auto) 23.5 [place] % (Auto) 7.0 Eos % (Auto) 1.4 Baso % (Auto) 0.6 Lymph # (Auto) 1.8 [place] # (Auto) 0.5 Eos # (Auto) 0.1 Baso # (Auto) 0.1 Abs Immat Gran (auto) 0.03 Absolute Neuts (auto) 5.2 Absolute Nucleated RBC 0.000 Nucleated RBC % (auto) 0.0 PT 13.0 INR 1.1 Anion Gap 11 L Estim Creat Clear Calc 14.2 Estimated GFR 12 Random Glucose 90 Calcium 9.4 Total Bilirubin 0.4 AST 13 ALT 9 Alkaline Phosphatase 79 Total Protein 4.9 L Albumin 2.6 L Lipase 29 Stool Occult Blood POSITIVE Blood Type O Positive Antibody Screen NEGATIVE Crossmatch See Detail Assessment and Plan (1) Upper GI bleeding: Status: Acute (2) Hyperkalemia: Status: Acute (3) Syncope: Qualifiers: Syncope type: unspecified Qualified Code(s): R55 - Syncope and collapse Status: Acute Plan Meliza Perry is a 53 y/o woman with PMHx significant for GI bleeding, GERD, hemorrhoids, diverticulosis, gastric sleeve surgery and s/p recent (June 2023) revision of gastric bypass at [facility] admitted with: Upper GI bleeding, suspecting due to PUD due to recent NSAID use: Advil. Admit to hospitalist service. Keep NPO. Protonix 40 mg IV b.i.d.. Continue to monitor H&H. PRBC transfusion to keep Hgb > 8-9. GI consult. Syncope secondary to hypotension due to above. Fall precautions. ESRD on HD. Nephrology consult for inpatient hemodialysis. Mild hyperkalemia secondary to above. No EKG changes. Recheck K+ level 8 am. Nephrology consult. Essential hypertension. Anti-HTN meds on hold due to hypotension episode. DVT prophylaxis: SCDs Code status: Full Patient will need hospitalization for at least 2 midnights for upper GI bleeding treatment with PRBC transfusion, PPI IV, close cardiac monitoring and evaluation by GI service. Quality Stroke Does the patient have a stroke diagnosis?: No VTE Prior VTE?: No VTE Risk Level:: Medical - moderate - high VTE Device Contraindication: N/A - Device Ordered VTE Drug Contraindication: Treatment Not Indicated
--- NOTE | 2023-08-10 05:56 | MHC.EDTECH ---
Hourly rounds and vitals completed, patient is resting comfortably at this time,sister at bedside call simon in reach
[2023-08-10 07:04] LABS: Anion Gap 10 (12-20); Blood Urea Nitrogen 48 mg/dL (9-16); Calcium 9.2 mg/dL (8.4-10.2); Carbon Dioxide 29 mmol/L (22-29); Chloride 104 mmol/L (96-108); Creatinine Clr Calc Pharmacy 13.7; Estimated Glomerular Filt Rate 12; Glucose Random 81 mg/dL (60-115); Potassium 5.5 mmol/L (3.3-5.1); Sodium 137 mmol/L (135-145)
--- NOTE | 2023-08-10 07:05 | PC.NURSE ---
report received from previous RN, ahmet resting on stretcher at this time, transfusion running at 87.5ml/hr, patient tolerating well, lab called critical creat of 4.05. remains on cardiac montior at this time made aware
[2023-08-10] MEDS: Pantoprazole Sodium 40 MG/10 ML VIAL IVPUSH ×2 (07:50→21:37)
--- NOTE | 2023-08-10 09:02 | PHA.MEDREC ---
Pharmacy Consult ? Medication Reconciliation Pharmacy has completed the medication reconciliation. Pt states they are taking coreg 3.125 BID, buspirone 5 mg TID, cyclobenzaprine 5 mg bbedtime, furosemide 80 mg daily, gabapentin 300 mg TID. However, can not see any recent claim history showing this. Leaving on med rec because patient is adamant in taking them.
--- NOTE | 2023-08-10 09:21 | PM.CNNEP ---
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 Lumbar back pain with radiculopathy affecting left lower extremity Physical exam (~02/14/21) Peritoneal dialysis catheter in place Polyarthralgia Dyslipidemia Family history of ovarian cancer Abnormal mammogram of right breast Angina pectoris syndrome Chest pain Constipation Nephrosclerosis Renal interstitial fibrosis Obesity (BMI 30-39.9) Back pain Anemia GERD (gastroesophageal reflux disease) History of headache HTN (hypertension) Family History Family History Father Asthma Mother Asthma Hypertension Ovarian cancer Maternal Grandfather Myocardial infarction Paternal Grandmother Stroke Surgical History Surgical History S/P arteriovenous (AV) graft placement History of sleeve gastrectomy Fistula Hx of colonoscopy Hx of hysterectomy Hx of tubal ligation History of endometrial ablation Social History Social History Household Members: Spouse and Children Housing: Apartment Do you presently have visiting nurse or other home services: No Alcohol intake: current Alcohol intake frequency: holidays/special occasions only Alcohol type: beer Comment: Patient doesn't want bed alarm on Patient Tobacco Use Status: Current everyday Tobacco user Tobacco use type: Cigarette Cigarettes Per Day: 2 Years Smoked: 10+ Smoked in Last 30 Days: Yes e-Cigarette/Vaping Use: Never Used Second Hand Smoke Exposure: No Use of substances other than those prescribed or required for medical reasons: No Advance Directives: Yes Advance Directives on File: Yes Advance Directives Date on File: 04/27/20 Patient : No service: No Current occupational status: employed Cognitive needs: No Hearing needs: No Vision needs: Yes (reading glasses) Meds Allergies Allergy/AdvReac Type Severity Reaction Status Date / Time ibuprofen Allergy Severe Unknown Verified 08/10/23 02:05 nifedipine Allergy Intermediate hives, leg Verified 08/10/23 02:05 edema Active Medications: Current Medications Pantoprazole Sodium (Pantoprazole Sodium 40 Mg/10 Ml Vial) 40 mg IVPUSH BID [facility] Last Admin: 08/10/23 07:50 Dose: 40 mg Sodium Chloride (0.9 % Sodium Chloride Flush 3 Ml Syringe) 3 ml IVFLUSH QSHIFT [facility] Last Admin: 08/10/23 07:23 Dose: Not Given Home Medications ?Medication ?Instructions ?Recorded ?Confirmed ?Last Taken ?Type ferrous sulfate 325 mg (65 mg 325 mg PO BID 05/11/20 08/10/23 08/08/23 History iron) tablet,delayed release cyanocobalamin (vitamin B-12) 1,000 mcg PO DAILY 10/17/20 08/10/23 08/08/23 History 1,000 mcg tablet pyridoxine (vitamin B6) 50 mg 50 mg PO DAILY 06/06/21 08/10/23 08/08/23 History tablet buspirone 5 mg tablet 5 mg PO TID anxiety 07/05/21 08/10/23 08/08/23 History carvedilol 3.125 mg tablet 3.125 mg PO BID 07/05/21 08/10/23 08/08/23 History ergocalciferol (vitamin D2) 1,250 1,250 mcg PO PLEITEZ@0900 07/05/21 08/10/23 Unknown History mcg (50,000 unit) capsule (Vitamin D2) vitamin B comp no.3-folic acid 1 1 tab PO DAILY 07/05/21 08/10/23 08/08/23 History mg-vit C 60 mg-biotin 300 mcg tablet (Lesly-Toni Rx) midodrine 5 mg tablet 5 mg PO TID 03/25/23 08/10/23 08/08/23 History acetaminophen 500 mg capsule 1,000 mg PO Q8H PRN Pain 08/10/23 08/10/23 Unknown History (Mapap (acetaminophen)) fluticasone propionate 50 1 spray intranasal DAILY PRN 08/10/23 08/10/23 08/08/23 History mcg/actuation nasal Allergy Symptoms spray,suspension [id number] 45 mg-folic 1 cap PO DAILY 08/10/23 08/10/2324 History acid 800 mcg-vit K 120 mcg capsule (Bariatric Multivitamins) ondansetron 4 mg disintegrating 4 mg PO Q8H PRN Nausea And Vomiting 08/10/23 08/10/23 Unknown History tablet pantoprazole 40 mg tablet,delayed 40 mg PO DAILY@0630 08/10/23 08/10/23 08/08/23 History release parenteral amino acid 15% no.5 15 0.5 ea IV MOWEFR@0900 08/10/23 08/10/23 08/08/23 History % combination no.5 intravenous solution (Clinisol SF) sucralfate 1 gram tablet 1 g PO QID 08/10/23 08/10/23 08/08/23 History Physical Exam Vital Signs: Last Vital Signs Temp 98.5 F 08/10/23 09:20 Pulse 84 08/10/23 09:20 Resp 18 08/10/23 09:20 BP 107/63 08/10/23 09:20 Pulse Ox 98 08/10/23 08:25 O2 Del Method Room Air 08/10/23 08:25 BMI result Body Mass Index 19.7 Results Lab Results 08/10/23 02:40 08/10/23 06:34 Lab results: Chemistry 08/10/23 08/10/23 02:40 06:34 Sodium 136 137 Potassium 5.8 H D 5.5 H Carbon Dioxide 29 29 BUN 43 H 48 H Creatinine 3.90 H 4.05 H* Calcium 9.4 9.2 Hematology 08/10/23 02:40 WBC 7.7 Hgb 7.4 L Plt Count 181 D Procedures Date of Service Date of Service: 08/10/23
--- NOTE | 2023-08-10 11:31 | PM.EVENT ---
Event Note Date of Service: 08/10/23 Event Note: Patient seen in ED feeling better, denies recurrent bleed, no nausea, no vomiting, denies lightheadedness or dizziness. On examination awake alert in no acute distress Abdomen soft nontender Extremities trace edema Meliza Perry is a 53 y/o woman with PMHx significant for GI bleeding, GERD, hemorrhoids, diverticulosis, gastric sleeve surgery and s/p recent (June 2023) revision of gastric bypass at [facility] admitted with: Acute Upper GI bleeding, with acute on chronic microcytic anemia likely due to recent NSAID use. No recurrent episodes of coffee-ground emesis, had multiple black stools last night , no stool this a.m. Continue IV PPI , clear liquid diet now and NPO after midnight. Hold multiple multivitamins. GI plan on upper endoscopy tomorrow or Friday as per OR availability. Syncope secondary to hypotension due to above. ESRD on HD. Dr. Wang will arrange for hemodialysis Friday and Friday , hold Lasix Mild hyperkalemia secondary to above. No EKG changes, will give Lokelma 5 mg, Recheck K+ level Essential hypertension. Anti-HTN meds on hold due to hypotension episode. DVT prophylaxis: SCDs Code status: Aquatics Coordinator Spent With Patient Time: Total time managing care of this patient today ____ minutes.
--- NOTE | 2023-08-10 12:02 | MHC.EDTECH ---
pt vitals checked at 1200. pt resting, c/o pain in MARIJA 09/19, RN aware.
[2023-08-10] MEDS: Sodium Zirconium Cyclosilicate 5 GM POWD.PACK PO ×2 (12:25→21:38)
[2023-08-10 14:23] LABS: Hemoglobin 7.9 g/dl (12.0-16.0); Mean Corpuscular HGB Conc 34.3 g/dl (31.0-35.0); Mean Corpuscular Hemoglobin 32.2 pg (27.0-33.0); Mean Corpuscular Volume 93.9 fL (80.0-98.0); Mean Platelet Volume 9.6 fL (9.4-12.3); Platelet Count 135 X10*3/uL (160-400); Red Blood Count 2.45 X10*6/uL (4.20-5.50); Red Cell Distribution Width 17.8 % (11.0-16.0); White Blood Count 6.5 X10*3/uL (4.8-10.8)
[2023-08-10 15:02] LABS: Anion Gap 13 (12-20); Blood Urea Nitrogen 52 mg/dL (9-16); Calcium 9.2 mg/dL (8.4-10.2); Carbon Dioxide 27 mmol/L (22-29); Chloride 102 mmol/L (96-108); Creatinine Clr Calc Pharmacy 12.7; Estimated Glomerular Filt Rate 11; Glucose Random 150 mg/dL (60-115); Potassium 5.5 mmol/L (3.3-5.1); Sodium 136 mmol/L (135-145)
[2023-08-10] MEDS: Midodrine HCl 5 MG TABLET PO ×2 (15:45→21:37)
[2023-08-10] MEDS: oxyCODONE HCl Immed Release 5 MG TABLET PO (15:45)
[2023-08-10] MEDS: Gabapentin 300 MG CAPSULE PO ×2 (15:46→21:37)
[2023-08-10] MEDS: busPIRone HCl 5 MG TABLET PO ×2 (15:46→21:37)
[2023-08-10] MEDS: 0.9 % Sodium Chloride Flush 3 ML SYRINGE IVFLUSH (15:47)
[2023-08-10 21:33] LABS: Hematocrit 22.5 % (37.0-47.0); Hemoglobin 7.7 g/dl (12.0-16.0); Mean Corpuscular HGB Conc 34.2 g/dl (31.0-35.0); Mean Corpuscular Volume 93.4 fL (80.0-98.0); Mean Platelet Volume 10.1 fL (9.4-12.3); Platelet Count 142 X10*3/uL (160-400); Red Blood Count 2.41 X10*6/uL (4.20-5.50); Red Cell Distribution Width 18.1 % (11.0-16.0); White Blood Count 7.6 X10*3/uL (4.8-10.8)
[2023-08-10] MEDS: Cyclobenzaprine HCl 5 MG TABLET PO (21:37)
[2023-08-10 21:45] LABS: Potassium 4.8 mmol/L (3.3-5.1)
[2023-08-11] VITALS (7 sets, daily range): BP systolic 101–116; BP diastolic 55–65; PULSE 73–84; RESP 16–20; TEMP 36.1–37.2; O2SAT 98–100
[2023-08-11] MEDS: 0.9 % Sodium Chloride Flush 3 ML SYRINGE IVFLUSH ×3 (00:14→16:12)
--- NOTE | 2023-08-11 05:52 | PM.GICN ---
History of Present Illness Data of Consult Service Date: 08/11/23 Requesting physician: Silvino Sen Primary Care Provider: Rozina Lang MD HPI Reason for consult: anemia 53 year old woman with hx of end-stage renal disease on hemodialysis (MWF), GI bleeding, GERD, hemorrhoids, diverticulosis, gastric sleeve surgery, s/p recent (June 2023) revision of gastric bypass at [facility] and essential hypertension who I am seeing for assessment for anemia Patient noted multiple events of coffee-ground vomiting as well as rectal bleeding (dark stools) associated with mild shortness on breath. She denied associated abdominal pain, distention or chest pain but had been taking advil for back pain last several days. She is ongoing tobacco smoker -smokes 2 cigarettes daily. On admission she required fluids due to low BP and LOC. SHe had colonoscopy for screening 06/03--no polyps, diverticulosis Today- no further vomiting, not had any stools LAbs: hemoglobin 7.4 (it was 8.8 last month). INR normal. Potassium was 5.8, there are no other electrolyte imbalances. Creatinine: 3.9 and BUN 43. Review of Systems Review of Systems: Constitutional : No Weight loss, No Fever, No Chills ENT/Mouth : No sore throat, No Rhinorrhea Eyes: No Swelling, No Redness Cardiovascular : No Chest Pain, + SOB, No Edema Respiratory : No Cough, No Sputum, No Wheezing Gastrointestinal : see HPI Genitourinary : NO Dysuria, No Urinary Frequency, No Hematuria, No Urgency Musculoskeletal : + joint pain, No Myalgias, No Joint Swelling Skin : No Skin Lesions, No rash Neuro : No Weakness, No Numbness, No Dizziness, No Headache Psych : No Anxiety/Panic, No Depression Heme/Lymph: No Bruising, No Lymphadenopathy Endocrine : No Polyuria, No Polydipsia All other systems reviewed and are negative. 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 Lumbar back pain with radiculopathy affecting left lower extremity Physical exam (~02/14/21) Peritoneal dialysis catheter in place Polyarthralgia Dyslipidemia Family history of ovarian cancer Abnormal mammogram of right breast Angina pectoris syndrome Chest pain Constipation Nephrosclerosis Renal interstitial fibrosis Obesity (BMI 30-39.9) Back pain GERD (gastroesophageal reflux disease) History of headache HTN (hypertension) Family History Family History Father Asthma Mother Asthma Hypertension Ovarian cancer Maternal Grandfather Myocardial infarction Paternal Grandmother Stroke Surgical History Surgical History S/P arteriovenous (AV) graft placement History of sleeve gastrectomy Fistula Hx of colonoscopy Hx of hysterectomy Hx of tubal ligation History of endometrial ablation Social History Social History Household Members: None Housing: Apartment Do you presently have visiting nurse or other home services: Yes Alcohol intake: current Alcohol intake frequency: holidays/special occasions only Alcohol type: beer Comment: Patient doesn't want bed alarm on Patient Tobacco Use Status: Current everyday Tobacco user Tobacco use type: Cigarette Cigarettes Per Day: 2 Years Smoked: 10+ e-Cigarette/Vaping Use: Never Used Second Hand Smoke Exposure: No Advance Directives Date on File: 04/27/20 service: No Current occupational status: employed Cognitive needs: No Hearing needs: No Vision needs: Yes (reading glasses) Meds Allergies Allergy/AdvReac Type Severity Reaction Status Date / Time ibuprofen Allergy Severe Unknown Verified 08/10/23 02:05 nifedipine Allergy Intermediate hives, leg Verified 08/10/23 02:05 edema Active Medications: Current Medications Buspirone HCl (Buspirone Hcl 5 Mg Tablet) 5 mg PO TID [facility] Last Admin: 08/10/23 21:37 Dose: 5 mg Cyclobenzaprine HCl (Cyclobenzaprine Hcl 5 Mg Tablet) 5 mg PO BEDTIME [facility] Last Admin: 08/10/23 21:37 Dose: 5 mg Escitalopram Oxalate (Escitalopram Oxalate 10 Mg Tablet) 10 mg PO DAILY GERARDO Gabapentin (Gabapentin 300 Mg Capsule) 300 mg PO TID [facility] Last Admin: 08/10/23 21:37 Dose: 300 mg Melatonin (Melatonin 3 Mg Tablet) 9 mg PO BEDTIME PRN PRN Reason: sleep Midodrine (Midodrine Hcl 5 Mg Tablet) 5 mg PO TID [facility] Last Admin: 08/10/23 21:37 Dose: 5 mg Multivitamins/Vitamin C (Multivitamin Tablet) 1 tab PO DAILY [facility] Nicotine Polacrilex (Nicotine Polacrilex Lozenge 2 Mg Lozenge) 2 mg BUCCAL Q2H PRN PRN Reason: Nicotine Cravings Ondansetron HCl (Ondansetron Hcl 4 Mg/2 Ml Vial) 4 mg IVPUSH Q8H PRN PRN Reason: Nausea and Vomiting Pantoprazole Sodium (Pantoprazole Sodium 40 Mg/10 Ml Vial) 40 mg IVPUSH BID [facility] Last Admin: 08/10/23 21:37 Dose: 40 mg Sodium Chloride (0.9 % Sodium Chloride Flush 3 Ml Syringe) 3 ml IVFLUSH QSHIFT [facility] Last Admin: 08/11/23 00:14 Dose: 3 ml Home Medications ?Medication ?Instructions ?Recorded ?Confirmed ?Last Taken ?Type ferrous sulfate 325 mg (65 mg 325 mg PO BID 05/11/20 08/10/23 08/08/23 History iron) tablet,delayed release cyanocobalamin (vitamin B-12) 1,000 mcg PO DAILY 10/17/20 08/10/23 08/08/23 History 1,000 mcg tablet pyridoxine (vitamin B6) 50 mg 50 mg PO DAILY 06/06/21 08/10/23 08/08/23 History tablet buspirone 5 mg tablet 5 mg PO TID anxiety 07/05/21 08/10/23 08/08/23 History carvedilol 3.125 mg tablet 3.125 mg PO BID 07/05/21 08/10/23 08/08/23 History ergocalciferol (vitamin D2) 1,250 1,250 mcg PO PLEITEZ@0900 07/05/21 08/10/23 Unknown History mcg (50,000 unit) capsule (Vitamin D2) vitamin B comp no.3-folic acid 1 1 tab PO DAILY 07/05/21 08/10/23 08/08/23 History mg-vit C 60 mg-biotin 300 mcg tablet (Lesly-Toni Rx) midodrine 5 mg tablet 5 mg PO TID 03/25/23 08/10/23 08/08/23 History acetaminophen 500 mg capsule 1,000 mg PO Q8H PRN Pain 08/10/23 08/10/23 Unknown History (Mapap (acetaminophen)) fluticasone propionate 50 1 spray intranasal DAILY PRN 08/10/23 08/10/23 08/08/23 History mcg/actuation nasal Allergy Symptoms spray,suspension [id number]-[id number]-azsl 45 mg-folic 1 cap PO DAILY 08/10/23 08/10/23 08/08/23 History acid 800 mcg-vit K 120 mcg capsule (Bariatric Multivitamins) ondansetron 4 mg disintegrating 4 mg PO Q8H PRN Nausea And Vomiting 08/10/23 08/10/23 Unknown History tablet pantoprazole 40 mg tablet,delayed 40 mg PO DAILY@62908/10/23 08/10/23 08/08/23 History release parenteral amino acid 15% no.5 15 0.5 ea IV MOWEFR@0900 08/10/23 08/10/23 08/08/23 History % combination no.5 intravenous solution (Clinisol SF) sucralfate 1 gram tablet 1 g PO QID 08/10/23 08/10/23 08/08/23 History Physical Exam Vital Signs: Vital Signs: Last Vital Signs Temp 97.8 F 08/11/23 03:59 Pulse 75 08/11/23 03:59 Resp 20 08/11/23 03:59 BP 101/62 08/11/23 03:59 Pulse Ox 98 08/11/23 03:59 O2 Del Method Room Air 08/11/23 03:59 BMI result Body Mass Index 19.7 EXAM: GENERAL: The patient is frail VITAL SIGNS:see workflow HEENT: Nonicteric sclerae, PERRLA, EOMI. Oropharynx clear. Moist mucous membranes. Conjunctivae appear well perfused. No thyroid mass. CHEST: Chest wall is nontender. HEART: Regular rate and rhythm without murmurs. LUNGS: Clear to auscultation bilaterally. ABDOMEN: Soft, positive bowel sounds, nontender, no organomegaly.no flank tenderness SKIN: No rash, no excessive bruising, petechiae, or purpura. NEUROLOGIC: Cranial nerves II-XII intact without motor/sensory deficit. Psych: normal affect Results Labs 08/11/23 07:28 08/10/23 21:19 Labs: Short CBC 08/10/23 08/10/23 Range/Units 14:18 21:19 WBC 6.5 7.6 (4.8-10.8) X10*3/uL Hgb 7.9 L 7.7 L (12.0-16.0) g/dl Hct 23.0 L 22.5 L (37.0-47.0) % Plt Count 135 L D 142 L (160-400) X10*3/uL BMP 08/10/23 08/10/23 08/10/23 06:34 14:18 21:19 Sodium 137 136 Potassium 5.5 H 5.5 H 4.8 Chloride 104 102 Carbon Dioxide 29 27 BUN 48 H 52 H Creatinine 4.05 H* 4.38 H* Calcium 9.2 9.2 Assessment and Plan (1) Acute upper gastrointestinal bleeding: Status: Acute Plan 1/ Melena and coffee ground emesis prob from nsaid use and smoking, may have marginal ulcer PLAN: 1/ Going for dialysis today, stable from Gi standpoint 2. allow clears, cont with PPI, EGD tomorrow 3. smoking cessation Procedures Date of Service Date of Service: 08/11/23
--- NOTE | 2023-08-11 07:22 | PC.NURSE ---
Assumed care of patient at 23:15. Pt NPO since midnight for tentative upper endoscopy today. No bleeding this shift. VSS. Safety measures in place. Please see shift assessment for full details. Handoff report given 06:45.
[2023-08-11 07:45] LABS: Hematocrit 23.7 % (37.0-47.0); Hemoglobin 8.2 g/dl (12.0-16.0); Mean Corpuscular HGB Conc 34.6 g/dl (31.0-35.0); Mean Corpuscular Hemoglobin 31.5 pg (27.0-33.0); Mean Corpuscular Volume 91.2 fL (80.0-98.0); Mean Platelet Volume 10.1 fL (9.4-12.3); Platelet Count 125 X10*3/uL (160-400); Red Cell Distribution Width 17.4 % (11.0-16.0); White Blood Count 5.3 X10*3/uL (4.8-10.8)
[2023-08-11] MEDS: Escitalopram Oxalate 10 MG TABLET PO (09:12)
[2023-08-11] MEDS: Gabapentin 300 MG CAPSULE PO ×3 (09:12→21:22)
[2023-08-11] MEDS: Multivitamin TABLET 1 TAB PO (09:12)
[2023-08-11] MEDS: busPIRone HCl 5 MG TABLET PO ×3 (09:12→21:22)
[2023-08-11] MEDS: Midodrine HCl 5 MG TABLET PO ×3 (09:13→21:22)
[2023-08-11] MEDS: Pantoprazole Sodium 40 MG/10 ML VIAL IVPUSH ×2 (09:13→21:22)
--- NOTE | 2023-08-11 10:34 | MHC.CM.PN ---
Per MD rounds Patient with upper GIB is planned for scope today. Discharge is anticipated tomorrow.
--- NOTE | 2023-08-11 11:55 | P.PNNP_ITS ---
Subjective Subjective Date of Service: 08/11/23 Interval history: seen and examined on HD no complaints Physical Exam 2 Vital Signs: Vital Signs: Last Vital Signs Temp 97.3 F 08/11/23 11:15 Pulse 84 08/11/23 11:15 Resp 17 08/11/23 11:15 BP 116/59 L 08/11/23 11:15 Pulse Ox 100 08/11/23 11:15 O2 Del Method Room Air 08/11/23 11:15 BMI result Body Mass Index 19.7 Const: General: alert and awake HEENT: Head: Yes normocephalic and Yes atraumatic Neck: Neck: Yes supple Resp: Auscultation: clear to auscultation bilaterally Cardio: Heart sounds: S1 normal heart sound present and S2 normal heart sound present GI: Palpation (GI): Soft to palpation and nontender Extrem: General: Yes no pedal edema Objective Data Labs 08/11/23 07:28 08/10/23 21:19 Labs: Laboratory Results - last 24 hr 08/10/23 08/10/23 08/10/23 02:40 14:18 21:19 WBC 6.5 7.6 RBC 2.45 L 2.41 L Hgb 7.9 L 7.7 L Hct 23.0 L 22.5 L MCV 93.9 93.4 MCH 32.2 32.0 MCHC 34.3 34.2 RDW 17.8 H 18.1 H Plt Count 135 L D 142 L MPV 9.6 10.1 Absolute Nucleated RBC 0.000 0.000 Nucleated RBC % (auto) 0.0 0.0 Sodium 136 Potassium 5.5 H 4.8 Chloride 102 Carbon Dioxide 27 Anion Gap 13 BUN 52 H Creatinine 4.38 H* Estim Creat Clear Calc 12.7 Estimated GFR 11 Random Glucose 150 H Calcium 9.2 Blood Type O Positive Antibody Screen NEGATIVE Crossmatch See Detail 08/11/23 07:28 WBC 5.3 RBC 2.60 L Hgb 8.2 L Hct 23.7 L MCV 91.2 MCH 31.5 MCHC 34.6 RDW 17.4 H Plt Count 125 L MPV 10.1 Absolute Nucleated RBC 0.000 Nucleated RBC % (auto) 0.0 Sodium Potassium Chloride Carbon Dioxide Anion Gap BUN Creatinine Estim Creat Clear Calc Estimated GFR Random Glucose Calcium Blood Type Antibody Screen Crossmatch Procedures Date of Service Date of Service: 08/11/23 Assessment & Plan Assessment and plan (1) End stage chronic kidney disease: Status: Acute (2) Anemia: Status: Inactive Plan known ESRD on HD at [facility] via AVF followed by Dr Wang nephrogenic anemia interested in PD REC HD today UF as tolerated P binders HARDEEP per protocol Time Spent With Patient Time: Total time managing care of this patient today ____ minutes. Progress Note: Quality Stroke Does the patient have a stroke diagnosis?: No
--- NOTE | 2023-08-11 12:00 | P.CONNP_ITS ---
History of Present Illness Reason for Consult Consult date: 08/11/23 Chief Complaint Chief complaint: Upper GI Bleeding History of Present Illness Narrative: 53 year old patient with history of ESRD admitted with GI bleed. At the time of the consulation she is havingdialysis. She denies fever, chills, nausea, vomiting or diarrhea. Review of Systems Review of Systems Constitutional : No Weight loss, No Fever, No Chills ENT/Mouth : No sore throat, No Rhinorrhea Eyes: No Swelling, No Redness Cardiovascular : No Chest Pain, + SOB, No Edema Respiratory : No Cough, No Sputum, No Wheezing Gastrointestinal : see HPI Genitourinary : NO Dysuria, No Urinary Frequency, No Hematuria, No Urgency Musculoskeletal : + joint pain, No Myalgias, No Joint Swelling Skin : No Skin Lesions, No rash Neuro : No Weakness, No Numbness, No Dizziness, No Headache Psych : No Anxiety/Panic, No Depression Heme/Lymph: No Bruising, No Lymphadenopathy Endocrine : No Polyuria, No Polydipsia All other systems reviewed and are negative. 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 Lumbar back pain with radiculopathy affecting left lower extremity Physical exam (~02/14/21) Peritoneal dialysis catheter in place Polyarthralgia Dyslipidemia Family history of ovarian cancer Abnormal mammogram of right breast Angina pectoris syndrome Chest pain Constipation Nephrosclerosis Renal interstitial fibrosis Obesity (BMI 30-39.9) Back pain GERD (gastroesophageal reflux disease) History of headache HTN (hypertension) Family History Family History Father Asthma Mother Asthma Hypertension Ovarian cancer Maternal Grandfather Myocardial infarction Paternal Grandmother Stroke Surgical History Surgical History S/P arteriovenous (AV) graft placement History of sleeve gastrectomy Fistula Hx of colonoscopy Hx of hysterectomy Hx of tubal ligation History of endometrial ablation Social History Social History Household Members: None Housing: Apartment Do you presently have visiting nurse or other home services: Yes Alcohol intake: current Alcohol intake frequency: holidays/special occasions only Alcohol type: beer Comment: Patient doesn't want bed alarm on Patient Tobacco Use Status: Current everyday Tobacco user Tobacco use type: Cigarette Cigarettes Per Day: 2 Years Smoked: 10+ e-Cigarette/Vaping Use: Never Used Second Hand Smoke Exposure: No Advance Directives Date on File: 04/27/20 service: No Current occupational status: employed Cognitive needs: No Hearing needs: No Vision needs: Yes (reading glasses) Meds Allergies Allergy/AdvReac Type Severity Reaction Status Date / Time ibuprofen Allergy Severe Unknown Verified 08/10/23 02:05 nifedipine Allergy Intermediate hives, leg Verified 08/10/23 02:05 edema Active Medications: Current Medications Buspirone HCl (Buspirone Hcl 5 Mg Tablet) 5 mg PO TID REPLACED BY [facility] Last Admin: 08/11/23 09:12 Dose: 5 mg Cyclobenzaprine HCl (Cyclobenzaprine Hcl 5 Mg Tablet) 5 mg PO BEDTIME REPLACED BY [facility] Last Admin: 08/10/23 21:37 Dose: 5 mg Escitalopram Oxalate (Escitalopram Oxalate 10 Mg Tablet) 10 mg PO DAILY REPLACED BY [facility] Last Admin: 08/11/23 09:12 Dose: 10 mg Gabapentin (Gabapentin 300 Mg Capsule) 300 mg PO TID REPLACED BY [facility] Last Admin: 08/11/23 09:12 Dose: 300 mg Hydromorphone HCl (Hydromorphone Hcl 0.5 Mg/0.5 Ml Syringe) 0.25 mg IVPUSH Q4H PRN; Protocol PRN Reason: pain,severe Melatonin (Melatonin 3 Mg Tablet) 9 mg PO BEDTIME PRN PRN Reason: sleep Midodrine (Midodrine Hcl 5 Mg Tablet) 5 mg PO TID REPLACED BY [facility] Last Admin: 08/11/23 09:13 Dose: 5 mg Multivitamins/Vitamin C (Multivitamin Tablet) 1 tab PO DAILY REPLACED BY [facility] Last Admin: 08/11/23 09:12 Dose: 1 tab Nicotine Polacrilex (Nicotine Polacrilex Lozenge 2 Mg Lozenge) 2 mg BUCCAL Q2H PRN PRN Reason: Nicotine Cravings Ondansetron HCl (Ondansetron Hcl 4 Mg/2 Ml Vial) 4 mg IVPUSH Q8H PRN PRN Reason: Nausea and Vomiting Pantoprazole Sodium (Pantoprazole Sodium 40 Mg/10 Ml Vial) 40 mg IVPUSH BID REPLACED BY [facility] Last Admin: 08/11/23 09:13 Dose: 40 mg Sodium Chloride (0.9 % Sodium Chloride Flush 3 Ml Syringe) 3 ml IVFLUSH QSHIFT REPLACED BY [facility] Last Admin: 08/11/23 09:13 Dose: 3 ml Home Medications ?Medication ?Instructions ?Recorded ?Confirmed ?Last Taken ?Type ferrous sulfate 325 mg (65 mg 325 mg PO BID 05/11/20 08/10/23 08/08/23 History iron) tablet,delayed release cyanocobalamin (vitamin B-12) 1,000 mcg PO DAILY 10/17/20 08/10/23 08/08/23 History 1,000 mcg tablet pyridoxine (vitamin B6) 50 mg 50 mg PO DAILY 06/06/21 08/10/23 08/08/23 History tablet buspirone 5 mg tablet 5 mg PO TID anxiety 07/05/21 08/10/23 08/08/23 History carvedilol 3.125 mg tablet 3.125 mg PO BID 07/05/21 08/10/23 08/08/23 History ergocalciferol (vitamin D2) 1,250 1,250 mcg PO PLEITEZ@0900 07/05/21 08/10/23 Unknown History mcg (50,000 unit) capsule (Vitamin D2) vitamin B comp no.3-folic acid 1 1 tab PO DAILY 07/05/21 08/10/23 08/08/23 History mg-vit C 60 mg-biotin 300 mcg tablet ([facility]) midodrine 5 mg tablet 5 mg PO TID 03/25/23 08/10/23 08/08/23 History acetaminophen 500 mg capsule 1,000 mg PO Q8H PRN Pain 08/10/23 08/10/23 Unknown History (Mapap (acetaminophen)) fluticasone propionate 50 1 spray intranasal DAILY PRN 08/10/23 08/10/23 08/08/23 History mcg/actuation nasal Allergy Symptoms spray,suspension [id number] 45 mg-folic 1 cap PO DAILY 08/10/23 08/10/23 08/08/23 History acid 800 mcg-vit K 120 mcg capsule (Bariatric Multivitamins) ondansetron 4 mg disintegrating 4 mg PO Q8H PRN Nausea And Vomiting 08/10/23 08/10/23 Unknown History tablet pantoprazole 40 mg tablet,delayed 40 mg PO DAILY@62908/10/23 08/10/23 08/08/23 History release parenteral amino acid 15% no.5 15 0.5 ea IV MOWEFR@0900 08/10/23 08/10/23 08/08/23 History % combination no.5 intravenous solution (Clinisol SF) sucralfate 1 gram tablet 1 g PO QID 08/10/23 08/10/23 08/08/23 History Physical Exam Vital Signs: Last Vital Signs Temp 97.3 F 08/11/23 11:15 Pulse 84 08/11/23 11:15 Resp 17 08/11/23 11:15 BP 116/59 L 08/11/23 11:15 Pulse Ox 100 08/11/23 11:15 O2 Del Method Room Air 08/11/23 11:15 BMI result Body Mass Index 19.7 Const General: alert and awake HEENT Head: Yes normocephalic and Yes atraumatic Neck Neck: Yes supple Resp Auscultation: clear to auscultation bilaterally Cardio Heart sounds: S1 normal heart sound present and S2 normal heart sound present GI Palpation (GI): Soft to palpation and nontender Extrem General: Yes no pedal edema Results Lab Results 08/11/23 07:28 08/10/23 21:19 Lab results: Chemistry 08/10/23 08/10/23 08/10/23 02:40 06:34 14:18 Sodium 136 137 136 Potassium 5.8 H D 5.5 H 5.5 H Carbon Dioxide 29 29 27 BUN 43 H 48 H 52 H Creatinine 3.90 H 4.05 H* 4.38 H* Calcium 9.4 9.2 9.2 08/10/23 21:19 Sodium Potassium 4.8 Carbon Dioxide BUN Creatinine Calcium Hematology 08/10/23 08/10/23 08/10/23 02:40 14:18 21:19 WBC 7.7 6.5 7.6 Hgb 7.4 L 7.9 L 7.7 L Plt Count 181 D 135 L D 142 L 08/11/23 07:28 WBC 5.3 Hgb 8.2 L Plt Count 125 L Assessment and Plan (1) End stage chronic kidney disease: Status: Acute (2) Anemia: Qualifiers: Anemia type: due to chronic kidney disease Chronic kidney disease stage: stage 5, not on chronic dialysis Qualified Code(s): N18.5 - Chronic kidney disease, stage 5; D63.1 - Anemia in chronic kidney disease Status: Inactive Plan known ESRD on HD at [facility] via AVF followed by Dr Wang nephrogenic anemia interested in PD REC HD today UF as tolerated P binders HARDEEP per protocol Procedures Date of Service Date of Service: 08/11/23
[2023-08-11] MEDS: diphenhydrAMINE HCL 50 MG/ML VIAL 25 MG IVPUSH (12:08)
--- NOTE | 2023-08-11 14:09 | HO.PM.IMPN ---
Subjective Subjective Date of Service: 08/11/23 Interval History: no further GI bleeding some abd discomfort Review of Systems Review of Systems: Yes all other systems are reviewed and are negative Physical Exam Vital Signs: Vital Signs: Last Vital Signs Temp 97.3 F 08/11/23 11:15 Pulse 84 08/11/23 11:15 Resp 17 08/11/23 11:15 BP 116/59 L 08/11/23 11:15 Pulse Ox 100 08/11/23 11:15 O2 Del Method Room Air 08/11/23 11:15 BMI result Body Mass Index 19.7 Gen: in no acute distress HEENT: sclera anicteric, moist mucus membranes Neck: supple Lungs: clear to auscultation bilaterally Heart: regular rate and rhythm, no murmurs Abd: soft, non-tender, non-distended Ext: no edema Skin: warm/well-perfused Neuro: alert and oriented x3, no focal findings Psych: appropriate affect Objective Data Active Medications Buspirone HCl (Buspirone Hcl 5 Mg Tablet) 5 mg PO TID [facility] Last Admin: 08/11/23 09:12 Dose: 5 mg Documented By: GLORIA Cyclobenzaprine HCl (Cyclobenzaprine Hcl 5 Mg Tablet) 5 mg PO BEDTIME [facility] Last Admin: 08/10/23 21:37 Dose: 5 mg Documented By: FIONA Escitalopram Oxalate (Escitalopram Oxalate 10 Mg Tablet) 10 mg PO DAILY [facility] Last Admin: 08/11/23 09:12 Dose: 10 mg Documented By: GLORIA Gabapentin (Gabapentin 300 Mg Capsule) 300 mg PO TID [facility] Last Admin: 08/11/23 09:12 Dose: 300 mg Documented By: GLORIA Hydromorphone HCl (Hydromorphone Hcl 0.5 Mg/0.5 Ml Syringe) 0.25 mg IVPUSH Q4H PRN; Protocol PRN Reason: pain,severe Melatonin (Melatonin 3 Mg Tablet) 9 mg PO BEDTIME PRN PRN Reason: sleep Midodrine (Midodrine Hcl 5 Mg Tablet) 5 mg PO TID [facility] Last Admin: 08/11/23 09:13 Dose: 5 mg Documented By: GLORIA Multivitamins/Vitamin C (Multivitamin Tablet) 1 tab PO DAILY [facility] Last Admin: 08/11/23 09:12 Dose: 1 tab Documented By: GLORIA Nicotine Polacrilex (Nicotine Polacrilex Lozenge 2 Mg Lozenge) 2 mg BUCCAL Q2H PRN PRN Reason: Nicotine Cravings Ondansetron HCl (Ondansetron Hcl 4 Mg/2 Ml Vial) 4 mg IVPUSH Q8H PRN PRN Reason: Nausea and Vomiting Pantoprazole Sodium (Pantoprazole Sodium 40 Mg/10 Ml Vial) 40 mg IVPUSH BID [facility] Last Admin: 08/11/23 09:13 Dose: 40 mg Documented By: GLORIA Sodium Chloride (0.9 % Sodium Chloride Flush 3 Ml Syringe) 3 ml IVFLUSH QSHIFT [facility] Last Admin: 08/11/23 09:13 Dose: 3 ml Documented By: GLORIA Labs 08/11/23 07:28 08/10/23 21:19 Labs: Laboratory Results - last 24 hr 08/10/23 08/10/23 08/10/23 02:40 14:18 21:19 MCV 93.9 93.4 MCH 32.2 32.0 MCHC 34.3 34.2 RDW 17.8 H 18.1 H Plt Count 135 L D 142 L MPV 9.6 10.1 Absolute Nucleated RBC 0.000 0.000 Nucleated RBC % (auto) 0.0 0.0 Anion Gap 13 Estim Creat Clear Calc 12.7 Estimated GFR 11 Random Glucose 150 H Calcium 9.2 Blood Type O Positive Antibody Screen NEGATIVE Crossmatch See Detail 08/11/23 07:28 MCV 91.2 MCH 31.5 MCHC 34.6 RDW 17.4 H Plt Count 125 L MPV 10.1 Absolute Nucleated RBC 0.000 Nucleated RBC % (auto) 0.0 Anion Gap Estim Creat Clear Calc Estimated GFR Random Glucose Calcium Blood Type Antibody Screen Crossmatch Assessment and Plan (1) Severe anemia: Status: Acute Plan d2 53yo F with ESRD on HD, gastric sleeve surgery s/p revision in June 2023, GERD, hemorrhoids, diverticulosis, hx GI bleeding presenting with syncope due to hypotension from GI blood loss, coffee-ground emesis syncope due to acute GI bloos loss anemia, possibly due to recent NSAID use - continue IV PPI, clear liquid diet, NPO p MN for EGD tomorrow - transfused 2u pRBCS 08/09, continue to monitor H+H ESRD on HD - HD MWF; hold furosemide hyperK - resolved p 1 dose SZC HTN - carvedilol + furosemide on hold due to hypotensive episode mood disorder - continue buspirone + escitalopram VTE ppx - SCDs dispo - eventual home In my clinical judgment, the patient requires continued inpatient hospitalization for the following reasons: EGD Total time managing care of this patient today: 35 minutes. Quality Stroke Does the patient have a stroke diagnosis?: No VTE Prior VTE?: No VTE Risk Level:: Medical - moderate - high VTE Device Contraindication: N/A - Device Ordered VTE Drug Contraindication: Treatment Not Indicated
[2023-08-11] MEDS: HYDROmorphone HCl 0.5 MG/0.5 ML SYRINGE 0.25 MG IVPUSH (17:41)
[2023-08-11] MEDS: Cyclobenzaprine HCl 5 MG TABLET PO (21:22)
[2023-08-12] VITALS (7 sets, daily range): BP systolic 100–142; BP diastolic 57–80; PULSE 72–782; RESP 16–20; TEMP 36.1–37.4; O2SAT 96–100
[2023-08-12] MEDS: 0.9 % Sodium Chloride Flush 3 ML SYRINGE IVFLUSH ×2 (00:05→08:01)
[2023-08-12 06:37] LABS: Hematocrit 24.7 % (37.0-47.0); Hemoglobin 8.4 g/dl (12.0-16.0); Mean Corpuscular Hemoglobin 31.5 pg (27.0-33.0); Mean Corpuscular Volume 92.5 fL (80.0-98.0); Mean Platelet Volume 10.1 fL (9.4-12.3); Platelet Count 141 X10*3/uL (160-400); Red Blood Count 2.67 X10*6/uL (4.20-5.50); Red Cell Distribution Width 17.1 % (11.0-16.0); White Blood Count 4.3 X10*3/uL (4.8-10.8)
[2023-08-12 06:52] LABS: Anion Gap 10 (12-20); Blood Urea Nitrogen 17 mg/dL (9-16); Calcium 8.7 mg/dL (8.4-10.2); Carbon Dioxide 25 mmol/L (22-29); Chloride 105 mmol/L (96-108); Creatinine Clr Calc Pharmacy 24.8; Estimated Glomerular Filt Rate 23; Glucose Random 72 mg/dL (60-115); Potassium 4.1 mmol/L (3.3-5.1); Sodium 136 mmol/L (135-145)
[2023-08-12] MEDS: Pantoprazole Sodium 40 MG/10 ML VIAL IVPUSH (08:01)
--- NOTE | 2023-08-12 11:58 | MHC.CM.PN ---
IMM 08/11. Pt self-care, lives at home alone. Pt goes to dialysis - at [facility], pt active with [facility], and uses a cane. Pts sister will transport her home at discharge. HCP on file no longer accurate, new HCP completed with pt, now on file. PCP: Dr. Rozina Lang
--- NOTE | 2023-08-12 12:51 | P.PNGI_ITS ---
Subjective Subjective Date of Service: 08/12/23 Interval History: fees much better pain much reduced no nausea or vomiting has had some black stools Critical Care Time (minutes): 0 Physical Exam 2 Vital Signs: Vital Signs: Last Vital Signs Temp 98.1 F 08/12/23 11:28 Pulse 76 08/12/23 11:28 Resp 18 08/12/23 11:28 BP 115/68 08/12/23 11:28 Pulse Ox 100 08/12/23 11:28 O2 Del Method Room Air 08/12/23 11:28 BMI result Body Mass Index 19.7 EXAM: GENERAL: The patient is relaxed VITAL SIGNS:see workflow HEENT: Nonicteric sclerae, PERRLA, EOMI. Oropharynx clear. Moist mucous membranes. Conjunctivae appear well perfused. No thyroid mass. CHEST: Chest wall is nontender. HEART: Regular rate and rhythm without murmurs. LUNGS: Clear to auscultation bilaterally. ABDOMEN: Soft, positive bowel sounds, mildly tender LUQ, no organomegaly.no flank tenderness SKIN: No rash, no excessive bruising, petechiae, or purpura. NEUROLOGIC: Cranial nerves II-XII intact without motor/sensory deficit. Psych: normal affect Objective Data Labs 08/12/23 06:26 08/12/23 06:26 Labs: Laboratory Results - last 24 hr 08/12/23 06:26 WBC 4.3 L RBC 2.67 L Hgb 8.4 L Hct 24.7 L MCV 92.5 MCH 31.5 MCHC 34.0 RDW 17.1 H Plt Count 141 L MPV 10.1 Absolute Nucleated RBC 0.000 Nucleated RBC % (auto) 0.0 Sodium 136 Potassium 4.1 Chloride 105 Carbon Dioxide 25 Anion Gap 10 L BUN 17 H Creatinine 2.24 H Estim Creat Clear Calc 24.8 Estimated GFR 23 Random Glucose 72 Calcium 8.7 Procedures Date of Service Date of Service: 08/12/23 Progress Note: A&P Assessment and plan (1) Acute upper gastrointestinal bleeding: Status: Acute (2) Severe anemia: Status: Acute Plan 1/ Acute blood loss GI bleed, seems to have stabilized ddx: AVM, dieulafoy, PUD, gastritis PLAN: 1/ EGD for further assessment 2/ cont with PPI meantime Time Spent With Patient Time: Total time managing care of this patient today ____ minutes. Quality Stroke Does the patient have a stroke diagnosis?: No VTE Prior VTE?: No VTE Risk Level:: Medical - moderate - high VTE Device Contraindication: N/A - Device Ordered VTE Drug Contraindication: Treatment Not Indicated
--- NOTE | 2023-08-12 12:57 | MHC.SHP ---
Pre-Procedural Eval Section A - 24 Hr Update-Section A only Date of Service: 08/12/23 The patient is an INPATIENT: Yes The patient has been examined within 24 hours of the surgical procedure. The History & Physical has been completed within 30 days and I have reviewed it.: Yes Section B - Complete if H&P > 30 days Chief Complaint: Upper GI Bleeding Allergies: Allergies Allergy/AdvReac Type Severity Reaction Status Date / Time ibuprofen Allergy Severe Unknown Verified 08/10/23 02:05 nifedipine Allergy Intermediate hives, leg Verified 08/10/23 02:05 edema Plan Diagnosis/Plan: Unchanged I have reviewed the history and physical and performed a pertinent physical examination on my patient. No changes have occurred unless specified. EGD Time Spent With Patient Time: Total time managing care of this patient today ____ minutes.
--- NOTE | 2023-08-12 12:57 | W.PM.OPN ---
Operative Note Operative Note Date of Service: 08/12/23 Narrative: Procedure Description: EGD Indication: [] Anesthesia: MAC FLEXIBLE TRANSORAL UPPER GASTROINTESTINAL ENDOSCOPY UPPER ENDOSCOPY Consent: Indications for the procedure and potential complications of bleeding, perforation, reaction to medications and missed diagnosis were discussed with the patient and informed consent was obtained. Instrument: Olympus GIF H 190 J mid size upper endoscope Monitoring: Vital signs and clinical assessment, continuous EKG monitoring, Pulse oximetry, Carbon Dioxide monitoring and blood pressure monitoring were done throughout the procedure. Procedure: The patient was placed in the left lateral decubitis position and pre-procedure medications were administered and a bite block was placed. The endoscope was inserted into the mouth and advanced under direct vision to the jejunum (PATIENT HAs Hx of GASTRIC BYPASS). A careful inspection was made as the upper endoscope was withdrawn including a retroflexed examination of the proximal stomach; Findings and interventions are described below. Findings: Larynx:normal Esophagus: GE junction at 38 cm, diaphragm hiatus at 38 cm, mild esophagitis at GEJ with lax LES and schatzki ring Stomach pouch: patchy erythema . Biopsies were obtained. Grade 2 flap valve on retroflexed examination of the cardia. Marginal ulcer - Graham grade III noted at gastro jejunostomy junction measuring about 10 mm. Jejunum: Normal Intervention: Biopsies as noted above, Impression/Findings: gastritis esophagitis marginal ulcer schatzki ring esophagitis PLAN: Continue with PO PPI (use capsule, open it and mix with apple sauce otherwise absorption will be suboptimal) and add carafate 10 ml BID GERD precautions smoking cessation f/u with GI office
--- NOTE | 2023-08-12 14:16 | PM.DS ---
DS: Providers Provider Date of Service: 08/12/23 Date of admission: 08/10/23 05:40 Primary care physician: Rozina Lang MD Consults: 08/10/23 05:43 Consult to Gastroenterology Routine Consulting Provider: Tom Moody Reason for consultation: Upper GI bleeding Has provider been notified: No 08/10/23 08:36 Consult to Nephrology Routine Consulting Provider: [facility] Reason for consultation: ckd/on HD Has provider been notified: No DS: Diagnosis Discharge Diagnosis (1) Acute upper gastrointestinal bleeding: Status: Acute (2) Severe anemia: Status: Acute (3) Esophagitis: Status: Acute (4) Gastritis: Status: Acute (5) Marginal ulcer: Status: Acute (6) Schatzki's ring: Status: Acute (7) Hyperkalemia: Status: Acute (8) ESRD on dialysis: Status: Acute (9) Syncope: Status: Acute (10) Anemia due to GI blood loss: Status: Acute DS: Summary Hospital Course Hospital Course: From the history and physical by the admitting hospitalist, Claudia Luque MD, 08/10/23: Meliza Perry is a 53 years old woman with past medical history significant for end-stage renal disease on hemodialysis (MWF), GI bleeding, GERD, hemorrhoids, diverticulosis, gastric sleeve surgery, s/p recent (June 2023) revision of gastric bypass at [facility] and essential hypertension also to the ED via EMS after she had an event of loss of consciousness last night. She was found to have BP of 68/40 a receive NS bolus of 200 mL. She stated that she has been multiple events of coffee-ground vomiting as well as rectal bleeding (dark stools) associated with mild shortness on breath. She denied associated abdominal pain, distention or chest pain. Since Friday she has been taking Advil quite frequently for back pain (on Friday she took at least 6 pills of Advil). Does not take blood thinners. She denied alcohol or illicit drug use. She is ongoing tobacco smoker -smokes 2 cigarettes daily. In the ED, she was found to have stable vital signs, lowest BP is 96/59. There is no tachycardia and oxygen saturation is normal on room air. Blood workup showed no leukocytosis, hemoglobin 7.4 (it was 8.8 last month). INR is normal. Potassium is 5.8, there are no other electrolyte imbalances. Creatinine is 3.9 and BUN 43. There is no metabolic acidosis. Stool for occult blood is positive. ECG showed normal sinus rhythm with a heart rate of 88 beats per minutes without ischemic changes. ED Tx: Protonix 80 mg IV, Zofran 4 mg IV, morphine 4 mg IV. One unit PRBCs 53yo F with ESRD on HD, gastric sleeve surgery s/p revision in June 2023, GERD, hemorrhoids, diverticulosis, and hx GI bleeding presenting with syncope due to hypotension from GI blood loss. Noted to have coffee-ground emesis. Hospital course by problem: syncope due to acute GI bloos loss anemia, possibly due to recent NSAID use - Treated with IV PPI. Gastroenterology consulted. EGD done 08/12/[address] Moody: Larynx:normal Esophagus: GE junction at 38 cm, diaphragm hiatus at 38 cm, mild esophagitis at GEJ with lax LES and schatzki ring Stomach pouch: patchy erythema . Biopsies were obtained. Grade 2 flap valve on retroflexed examination of the cardia. Marginal ulcer - Graham grade III noted at gastro jejunostomy junction measuring about 10 mm. Jejunum: Normal - Discharged on omeprazole capsules 40 mg [to open and mix contents with applesauce to boost absorption] and to continue sucralfate; should follow up with Dr Moody in 2 weeks for biopsy results. - Transfused 2u pRBCS 08/09. - Advised to quit smoking and avoid all NSAIDs. ESRD on HD - Nephrology consulted; dialyzed 08/11/23 as per [facility] schedule. hyperK - resolved p 1 dose SZC She was discharged home with resumption of VNA services. Time Attestation Discharge Coordination Time (in mins): 40 Quality: Safe Use of Opioids Does Pt have an Active Cancer Diagnosis on the Problem List?: No Quality: Stroke Does the patient have a stroke diagnosis?: No Physical Exam Vital Signs: Vital Signs: Last Vital Signs Temp 97 F 08/12/23 13:36 Pulse 72 08/12/23 13:36 Resp 16 08/12/23 13:36 BP 142/80 H 08/12/23 13:36 Pulse Ox 99 08/12/23 13:36 O2 Del Method Room Air 08/12/23 13:36 BMI result Body Mass Index 19.7 Gen: in no acute distress HEENT: sclera anicteric, moist mucus membranes Neck: supple Lungs: clear to auscultation bilaterally Heart: regular rate and rhythm, no murmurs Abd: soft, non-tender, non-distended Ext: no edema Skin: warm/well-perfused Neuro: alert and oriented x3, no focal findings Psych: appropriate affect DS: Data Data Completed and Pending Completed studies during hospitalization [Text1]: Laboratory Results WBC 4.3 X10*3/uL (4.8-10.8) L 08/12/23 06:26 RBC 2.67 X10*6/uL (4.20-5.50) L 08/12/23 06:26 Hgb 8.4 g/dl (12.0-16.0) L 08/12/23 06:26 Hct 24.7 % (37.0-47.0) L 08/12/23 06:26 MCV 92.5 fL (80.0-98.0) 08/12/23 06:26 MCH 31.5 pg (27.0-33.0) 08/12/23 06:26 MCHC 34.0 g/dl (31.0-35.0) 08/12/23 06:26 RDW 17.1 % (11.0-16.0) H 08/12/23 06:26 Plt Count 141 X10*3/uL (160-400) L 08/12/23 06:26 MPV 10.1 fL (9.4-12.3) 08/12/23 06:26 Immature Gran % (Auto) 0.4 % (0.0-0.4) 08/10/23 02:40 Neut % (Auto) 67.1 % (45-73) 08/10/23 02:40 Lymph % (Auto) 23.5 % (20-40) 08/10/23 02:40 [place] % (Auto) 7.0 % (2-11) 08/10/23 02:40 Eos % (Auto) 1.4 % (0-4) 08/10/23 02:40 Baso % (Auto) 0.6 % (0-2) 08/10/23 02:40 Lymph # (Auto) 1.8 X10*3/uL (1.2-4.9) 08/10/23 02:40 [place] # (Auto) 0.5 X10*3/uL (0.1-1.2) 08/10/23 02:40 Eos # (Auto) 0.1 X10*3/uL (0.0-0.4) 08/10/23 02:40 Baso # (Auto) 0.1 X10*3/uL (0.0-0.2) 08/10/23 02:40 Abs Immat Gran (auto) 0.03 X10*3/uL (0.00-0.03) 08/10/23 02:40 Absolute Neuts (auto) 5.2 x10*3/uL (2.0-8.3) 08/10/23 02:40 Absolute Nucleated RBC 0.000 X10*3/uL (0.0-0.012) 08/12/23 06:26 Nucleated RBC % (auto) 0.0 /100WBC (0.0-0.2) 08/12/23 06:26 Hold Purple Top SEE NOTE 08/10/23 06:34 PT 13.0 SEC (11.1-13.3) 08/10/23 02:42 INR 1.1 (0.9-1.1) 08/10/23 02:42 Sodium 136 mmol/L (135-145) 08/12/23 06:26 Potassium 4.1 mmol/L (3.3-5.1) 08/12/23 06:26 Chloride 105 mmol/L (96-108) 08/12/23 06:26 Carbon Dioxide 25 mmol/L (22-29) 08/12/23 06:26 Anion Gap 10 (12-20) L 08/12/23 06:26 BUN 17 mg/dL (9-16) H 08/12/23 06:26 Creatinine 2.24 mg/dL (0.5-1.4) H 08/12/23 06:26 Estim Creat Clear Calc 24.8 08/12/23 06:26 Estimated GFR 23 08/12/23 06:26 Random Glucose 72 mg/dL (60-115) 08/12/23 06:26 Calcium 8.7 mg/dL (8.4-10.2) 08/12/23 06:26 Total Bilirubin 0.4 mg/dL (0.0-1.0) 08/10/23 02:40 AST 13 U/L (5-31) 08/10/23 02:40 ALT 9 U/L (0-31) 08/10/23 02:40 Alkaline Phosphatase 79 U/L (39-117) 08/10/23 02:40 Total Protein 4.9 g/dL (6.5-8.0) L 08/10/23 02:40 Albumin 2.6 g/dL (3.5-5.0) L 08/10/23 02:40 Lipase 29 U/L (8-78) 08/10/23 02:40 Stool Occult Blood POSITIVE (NEGATIVE) 08/10/23 02:56 Blood Type O Positive 08/10/23 02:40 Antibody Screen NEGATIVE 08/10/23 02:40 Crossmatch See Detail 08/10/23 02:40 Pending studies at discharge: Pending at discharge 08/12/23 13:22 Surgical [PTH] Routine Discharge Plan Discharge Anticipated Discharge Date/Time: 08/12/23 14:10 Patient Disposition: Home Health Service Discharge Diagnosis: upper GI bleed gastritis, esophagitis, marginal ulcer Referrals: Tom Moody MD [Physician] - 2 Weeks Rozina Nicole MD [Primary Care Provider] - 1 Week Discharge Medications: New nicotine (polacrilex) 2 mg Lozenge 2 mg buccal Q2H PRN (Reason: Nicotine Cravings) Qty: 100 0RF omeprazole 40 mg capsule,delayed release(DR/EC) 40 mg PO BID Qty: 60 0RF Continued thiamine HCl (vitamin B1) 100 mg tablet 100 mg PO DAILY 90 Days Qty: 90 0RF vitamin A 2,400 mcg capsule 2,400 mcg PO DAILY 90 Days Qty: 90 0RF cyanocobalamin (vitamin B-12) 1,000 mcg Tablet 1,000 mcg PO DAILY sucralfate 1 gram tablet 1 g PO QID acetaminophen [Mapap (acetaminophen)] 500 mg capsule 1,000 mg PO Q8H PRN (Reason: Pain) Clinisol SF 15 % 15 % parenteral solution 0.5 ea IV MOWEFR@0900 Rx Instructions: DIALYSIS MEDICATION Bariatric Multivitamins 45 mg iron- 800 mcg-120 mcg Capsule 1 cap PO DAILY ondansetron 4 mg tablet,disintegrating 4 mg PO Q8H PRN (Reason: Nausea And Vomiting) fluticasone propionate 50 mcg/actuation spray,suspension 1 spray intranasal DAILY PRN (Reason: Allergy Symptoms) Rx Instructions: administer into each nostril pyridoxine (vitamin B6) 50 mg tablet 50 mg PO DAILY carvedilol 3.125 mg tablet 3.125 mg PO BID cyclobenzaprine 5 mg tablet 5 mg PO BEDTIME Qty: 14 0RF citalopram 20 mg tablet 20 mg PO DAILY 90 Days Qty: 90 1RF furosemide 80 mg tablet 80 mg PO DAILY 90 Days Qty: 90 1RF gabapentin 300 mg capsule 300 mg PO TID 30 Days Qty: 90 1RF melatonin 10 mg capsule 10 mg PO BEDTIME PRN (Reason: sleep) 90 Days Qty: 90 1RF acetic acid 2 % solution 3 drp otic (ear) left Q6H 7 Days Qty: 15 0RF Rx Instructions: apply to (cotton) wick; replace wick every 24 hours ferrous sulfate 325 mg (65 mg iron) tablet,delayed release (DR/EC) 325 mg PO BID Lesly-Toni Rx 1-60-300 mg-mg-mcg tablet 1 tab PO DAILY ergocalciferol (vitamin D2) [Vitamin D2] 1,250 mcg (50,000 unit) capsule 1,250 mcg PO PLEITEZ@0900 buspirone 5 mg tablet 5 mg PO TID midodrine 5 mg tablet 5 mg PO TID Discontinued pantoprazole 40 mg tablet,delayed release (DR/EC) 40 mg PO DAILY@0630 Discharge Orders: Discharge Order (Routine); Ordered 08/12/23 Ordered By: Uriel Bell Diet: Advance to usual diet Activity on Discharge: As tolerated Stand Alone Forms: Patient Portal Discharge page Print Language: Upper Sorbian Care Plan Goals: prevent GI bleeding Health Concerns: upper GI bleed gastritis, esophagitis, marginal ulcer Plan of Treatment: continue sucralfate 1 gram 4x a day change pantoprazole to omeprazole 40 mg capsules; use capsule, open it and mix with apple sauce avoid all NSAIDs [ibuprofen/Advil/Motrin, naproxen/Aleve] stop smoking follow up with Dr Moody from [facility] Gastroenterology in 2 weeks for biopsy results Please follow up with your primary care doctor within 1 week. Return to the hospital if you experience recurrent or worsening symptoms. Assessment: See Discharge Summary.
[2023-08-12] MEDS: Midodrine HCl 5 MG TABLET PO (14:52)
[2023-08-12] MEDS: busPIRone HCl 5 MG TABLET PO (14:52)
[2023-08-12] MEDS: Gabapentin 300 MG CAPSULE PO (14:52)
--- NOTE | 2023-08-12 14:55 | MHC.CM.PN ---
Pt is medically cleared for discharge home with resumption of previous [facility] services, and HD at [facility] on . Pt sister will transport her home.
--- NOTE | 2023-08-12 16:23 | HO.ANESPROP2 ---
HPI - Anesthesia Eval Consult details Narrative: 53-year-old female with GI bleed here for EGD PMFSH Active Problems Active Problems: All Active Problems Anemia due to GI blood loss (Acute) Syncope (Acute) Schatzki's ring (Acute) Marginal ulcer (Acute) Gastritis (Acute) Esophagitis (Acute) End stage chronic kidney disease (Acute) Severe anemia (Acute) Acute upper gastrointestinal bleeding (Acute) Syncope (Acute) Hyperkalemia (Acute) Upper GI bleeding (Acute) Idiopathic hypotension (Acute) ESRD on dialysis (Acute) Moderate major depression (Acute) Systolic murmur (Acute) Malnutrition (Acute) Diarrhea (Acute) Pre-op examination (Acute) Non-cardiac chest pain (Acute) Polyp of right nasal cavity (Acute) Numbness (Acute) Palpitations (Acute) Urinary and fecal incontinence (Acute) Anxiety and depression (Acute) Chronic low back pain (Acute) Fatigue (Acute) Nasal polyp, benign (Acute) Anxiety and depression (Acute) LLQ abdominal pain (Acute) Tubular adenoma of colon (Acute) Anxiety (Acute) Chronic renal insufficiency (Acute) History of sleeve gastrectomy (Acute) Spinal stenosis (Acute) 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 (Acute) Lumbar back pain with radiculopathy affecting left lower extremity (Acute) GERD (gastroesophageal reflux disease) (Acute) Polyarthralgia (Acute) Dyslipidemia (Acute) Family history of ovarian cancer (Acute) Abnormal mammogram of right breast (Acute) Chest pain (Acute) Obesity (BMI 30-39.9) (Acute) HTN (hypertension) (Acute) Past Medical History Medical History Moderate major depression ESRD on dialysis Physical exam Spondylosis without myelopathy or radiculopathy, lumbar region Spinal stenosis 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 Lumbar back pain with radiculopathy affecting left lower extremity Physical exam (~02/14/21) Peritoneal dialysis catheter in place Polyarthralgia Dyslipidemia Family history of ovarian cancer Abnormal mammogram of right breast Angina pectoris syndrome Chest pain Constipation Nephrosclerosis Renal interstitial fibrosis Obesity (BMI 30-39.9) Back pain GERD (gastroesophageal reflux disease) History of headache HTN (hypertension) Family History Family History Father Asthma Mother Asthma Hypertension Ovarian cancer Maternal Grandfather Myocardial infarction Paternal Grandmother Stroke Family history of problems with anesthesia: No Surgical History Surgical History S/P arteriovenous (AV) graft placement History of sleeve gastrectomy Fistula Hx of colonoscopy Hx of hysterectomy Hx of tubal ligation History of endometrial ablation History of Problems with Anesthesia: No Social History Social History Household Members: None Housing: Apartment Do you presently have visiting nurse or other home services: Yes Alcohol intake: current Alcohol intake frequency: does not drink Alcohol type: beer Comment: Patient doesn't want bed alarm on Patient Tobacco Use Status: Current everyday Tobacco user Tobacco use type: Cigarette Cigarettes Per Day: 2 Years Smoked: 10+ e-Cigarette/Vaping Use: Never Used Second Hand Smoke Exposure: No Advance Directives Date on File: 04/27/20 service: No Current occupational status: employed Cognitive needs: No Hearing needs: No Vision needs: Yes (reading glasses) Meds Allergies Allergy/AdvReac Type Severity Reaction Status Date / Time ibuprofen Allergy Severe Unknown Verified 08/10/23 02:05 nifedipine Allergy Intermediate hives, leg Verified 08/10/23 02:05 edema Home Medications ?Medication ?Instructions ?Recorded ?Confirmed ?Last Taken ?Type ferrous sulfate 325 mg (65 mg 325 mg PO BID 05/11/20 08/10/23 08/08/23 History iron) tablet,delayed release cyanocobalamin (vitamin B-12) 1,000 mcg PO DAILY 10/17/20 08/10/23 08/08/23 History 1,000 mcg tablet pyridoxine (vitamin B6) 50 mg 50 mg PO DAILY 06/06/21 08/10/23 08/08/23 History tablet buspirone 5 mg tablet 5 mg PO TID anxiety 07/05/21 08/10/23 08/08/23 History carvedilol 3.125 mg tablet 3.125 mg PO BID 07/05/21 08/10/23 08/08/23 History ergocalciferol (vitamin D2) 1,250 1,250 mcg PO PLEITEZ@0900 07/05/21 08/10/23 Unknown History mcg (50,000 unit) capsule (Vitamin D2) vitamin B comp no.3-folic acid 1 1 tab PO DAILY 07/05/21 08/10/23 08/08/23 History mg-vit C 60 mg-biotin 300 mcg tablet (Lesly-Toni Rx) midodrine 5 mg tablet 5 mg PO TID 03/25/23 08/10/23 08/08/23 History acetaminophen 500 mg capsule 1,000 mg PO Q8H PRN Pain 08/10/23 08/10/23 Unknown History (Mapap (acetaminophen)) fluticasone propionate 50 1 spray intranasal DAILY PRN 08/10/23 08/10/23 08/08/23 History mcg/actuation nasal Allergy Symptoms spray,suspension orbonpxq-[id number] 45 mg-folic 1 cap PO DAILY 08/10/23 08/10/23 08/08/23 History acid 800 mcg-vit K 120 mcg capsule (Bariatric Multivitamins) ondansetron 4 mg disintegrating 4 mg PO Q8H PRN Nausea And Vomiting 08/10/23 08/10/23 Unknown History tablet parenteral amino acid 15% no.5 15 0.5 ea IV MOWEFR@0900 08/10/23 08/10/23 08/08/23 History % combination no.5 intravenous solution (Clinisol SF) sucralfate 1 gram tablet 1 g PO QID 08/10/23 08/10/23 08/08/23 History Exam Height,Weight and Vital Signs: Height 5 ft 5 in Weight 118 lb 2.684 oz Last Vital Signs Temp 97 F 08/12/23 13:36 Pulse 72 08/12/23 13:36 Resp 16 08/12/23 13:36 BP 142/80 H 08/12/23 13:36 Pulse Ox 99 08/12/23 13:36 O2 Del Method Room Air 08/12/23 13:36 Pertinent Lab Results Pertinent Lab Results: Laboratory Tests 08/10/23 08/10/23 08/10/23 02:40 02:42 02:56 WBC 7.7 RBC 2.35 L Hgb 7.4 L Hct 22.3 L MCV 94.9 MCH 31.5 MCHC 33.2 RDW 17.8 H Plt Count 181 D MPV 9.9 Immature Gran % (Auto) 0.4 Neut % (Auto) 67.1 Lymph % (Auto) 23.5 [place] % (Auto) 7.0 Eos % (Auto) 1.4 Baso % (Auto) 0.6 Lymph # (Auto) 1.8 [place] # (Auto) 0.5 Eos # (Auto) 0.1 Baso # (Auto) 0.1 Abs Immat Gran (auto) 0.03 Absolute Neuts (auto) 5.2 Absolute Nucleated RBC 0.000 Nucleated RBC % (auto) 0.0 Hold Purple Top PT 13.0 INR 1.1 Sodium 136 Potassium 5.8 H D Chloride 102 Carbon Dioxide 29 Anion Gap 11 L BUN 43 H Creatinine 3.90 H Estim Creat Clear Calc 14.2 Estimated GFR 12 Random Glucose 90 Calcium 9.4 Total Bilirubin 0.4 AST 13 ALT 9 Alkaline Phosphatase 79 Total Protein 4.9 L Albumin 2.6 L Lipase 29 Stool Occult Blood POSITIVE Blood Type O Positive Antibody Screen NEGATIVE Crossmatch See Detail 08/10/23 08/10/23 08/10/23 06:34 14:18 21:19 WBC 6.5 7.6 RBC 2.45 L 2.41 L Hgb 7.9 L 7.7 L Hct 23.0 L 22.5 L MCV 93.9 93.4 MCH 32.2 32.0 MCHC 34.3 34.2 RDW 17.8 H 18.1 H Plt Count 135 L D 142 L MPV 9.6 10.1 Immature Gran % (Auto) Neut % (Auto) Lymph % (Auto) [place] % (Auto) Eos % (Auto) Baso % (Auto) Lymph # (Auto) [place] # (Auto) Eos # (Auto) Baso # (Auto) Abs Immat Gran (auto) Absolute Neuts (auto) Absolute Nucleated RBC 0.000 0.000 Nucleated RBC % (auto) 0.0 0.0 Hold Purple Top SEE NOTE PT INR Sodium 137 136 Potassium 5.5 H 5.5 H 4.8 Chloride 104 102 Carbon Dioxide 29 27 Anion Gap 10 L 13 BUN 48 H 52 H Creatinine 4.05 H* 4.38 H* Estim Creat Clear Calc 13.7 12.7 Estimated GFR 12 11 Random Glucose 81 150 H Calcium 9.2 9.2 Total Bilirubin AST ALT Alkaline Phosphatase Total Protein Albumin Lipase Stool Occult Blood Blood Type Antibody Screen Crossmatch 08/11/23 08/12/23 07:28 06:26 WBC 5.3 4.3 L RBC 2.60 L 2.67 L Hgb 8.2 L 8.4 L Hct 23.7 L 24.7 L MCV 91.2 92.5 MCH 31.5 31.5 MCHC 34.6 34.0 RDW 17.4 H 17.1 H Plt Count 125 L 141 L MPV 10.1 10.1 Immature Gran % (Auto) Neut % (Auto) Lymph % (Auto) [place] % (Auto) Eos % (Auto) Baso % (Auto) Lymph # (Auto) [place] # (Auto) Eos # (Auto) Baso # (Auto) Abs Immat Gran (auto) Absolute Neuts (auto) Absolute Nucleated RBC 0.000 0.000 Nucleated RBC % (auto) 0.0 0.0 Hold Purple Top PT INR Sodium 136 Potassium 4.1 Chloride 105 Carbon Dioxide 25 Anion Gap 10 L BUN 17 H Creatinine 2.24 H Estim Creat Clear Calc 24.8 Estimated GFR 23 Random Glucose 72 Calcium 8.7 Total Bilirubin AST ALT Alkaline Phosphatase Total Protein Albumin Lipase Stool Occult Blood Blood Type Antibody Screen Crossmatch Airway Mallampati Class: II TM Dist: >3cm Neck ROM: Full Adult Head Mouth w/Numbe Teeth: 1. Loose Loose/Missing/Broken Teeth: Yes Assessment and Plan Assessment Anesthesia Assessment: Anesthesia Plan Discussed and Chart Reviewed Final Anesthetic Review Family History of Problems with Anesthesia: No History of Problems with Anesthesia: No NPO: Yes ASA Class: III Final Preanesthetic Review: No Changes in Pt Med Stat, Meds/Allgs Chart Reviewed, Consent Obtained/Reviewed and Anes Risks/Benef Reviewed Patient Risk: Intermediate Procedure Risk: Low Anesthetic Plan Anesthetic Plan: MAC: Disposition: Standard PACU
== END 2023-08-12 15:52 | disposition home health service (06) | DRG 377 ==
LOC: HO.ED 02:57 → HO.EDOVER 05:53 → HO.IMC 15:00
PROVIDERS: Hospitalist; Internal Medicine Gastroenterology; Admitting Provider Internal Medicine; Emergency Provider Internal Medicine; PCP Internal Medicine; Visit Provider Family Medicine
PROC: 0DJ08ZZ Inspection of Upper Intestinal Tract, Via Natural or Artificial Opening Endoscopic (ICD-10-PCS; CPT 43235; principal; 2023-08-12 14:20)
DX: K29.71 Gastritis, unspecified, with bleeding (principal); N18.6 End stage renal disease; I12.0 Hypertensive chronic kidney disease with stage 5 chronic kidney disease or end stage renal disease; D62 Acute posthemorrhagic anemia; K20.91 Esophagitis, unspecified with bleeding; K28.4 Chronic or unspecified gastrojejunal ulcer with hemorrhage; K22.2 Esophageal obstruction; F17.210 Nicotine dependence, cigarettes, uncomplicated; T39.395A Adverse effect of other nonsteroidal anti-inflammatory drugs [NSAID], initial encounter; Z71.6 Tobacco abuse counseling; F39 Unspecified mood [affective] disorder; D63.1 Anemia in chronic kidney disease; I95.9 Hypotension, unspecified; Z99.2 Dependence on renal dialysis; E87.5 Hyperkalemia; Z98.84 Bariatric surgery status; Z79.899 Other long term (current) drug therapy
CPT/HCPCS: 36415; 80048; 80053; 82272; 83690; 84132; 85025; 85027; 85610; 86850; 86900; 86901; 86923; 88305; 88313; 88342; 90999; 93005; 99285; C9113; J0885; J1170; J1200; J2270; J2405; J2470; J2704; P9016

== ENCOUNTER → 2023-08-10 02:24 | Outpatient (BNV) | payer MEDICARE, MEDICAID, SELFPAY | PROVIDERS: Admitting Provider Internal Medicine; Emergency Provider Internal Medicine; PCP Internal Medicine; Visit Provider Internal Medicine Cardiovascular Disease | DX: R55 Syncope and collapse (principal) | CPT/HCPCS: 93010 ==

== ENCOUNTER → 2023-08-10 05:40 | Outpatient (BNV) | payer MEDICARE, MEDICAID, SELFPAY | PROVIDERS: Admitting Provider Internal Medicine; Emergency Provider Internal Medicine; PCP Internal Medicine; Visit Provider Internal Medicine Gastroenterology | DX: K92.2 Gastrointestinal hemorrhage, unspecified (principal); D64.9 Anemia, unspecified; K22.2 Esophageal obstruction; K28.9 Gastrojejunal ulcer, unspecified as acute or chronic, without hemorrhage or perforation; K20.90 Esophagitis, unspecified without bleeding; K29.70 Gastritis, unspecified, without bleeding | CPT/HCPCS: 43239; 99223; 99232 ==

== ENCOUNTER → 2023-08-10 05:40 | Outpatient (BNV) | payer MEDICARE, MEDICAID, SELFPAY | PROVIDERS: Admitting Provider Internal Medicine; Emergency Provider Internal Medicine; PCP Internal Medicine; Visit Provider Internal Medicine | DX: N18.6 End stage renal disease (principal); Z99.2 Dependence on renal dialysis; D50.0 Iron deficiency anemia secondary to blood loss (chronic); K20.90 Esophagitis, unspecified without bleeding; K29.70 Gastritis, unspecified, without bleeding | CPT/HCPCS: 99223; 99232; 99239; 99499 ==

== ENCOUNTER 2023-08-19 11:10 | Emergency (ER) | payer MEDICARE, MEDICAID, SELFPAY ==
--- NOTE | ~2023-08-19 | XR_ITS ---
EXAMINATION: XR CHEST CLINICAL INFORMATION: Stomach ulcer and gastritis COMPARISON: Chest xray on 10/17/20 TECHNIQUE: 2 views of the chest were obtained. FINDINGS: No significant abnormality is noted involving the heart, lungs, mediastinum, bony thorax or soft tissues. XR/XR chest 2V IMPRESSION: Unremarkable examination.
--- NOTE | ~2023-08-19 | CT_ITS ---
EXAMINATION: CT ABDOMEN AND PELVIS WITHOUT CONTRAST CLINICAL INFORMATION: Left lower quadrant pain with nausea and vomiting COMPARISON: CT abdomen and pelvis 05/04/2021 TECHNIQUE: Multidetector volumetric imaging was performed from the superior aspect of the liver through the pubic symphysis. Sagittal and coronal reformatted images were obtained on the technologist's workstation. This CT examination was performed using dose optimization techniques as appropriate, variously including the following: *Automated exposure control *Adjustment of mA and/or kV according to patient size (this includes techniques or standardized protocols for targeted exams where dose is matched to indication/reason for exam; i.e. extremities or head) *Use of iterative reconstruction technique DLP: 323 mGy-cm FINDINGS: LUNG BASES: Bibasilar scarring is present along with some geographic groundglass changes at the left lung base. LIVER, GALLBLADDER, AND BILIARY TREE: The liver is normal in size, shape, and attenuation. No focal hepatic lesion or biliary ductal dilatation is present. The gallbladder contains layering calculi but is otherwise unremarkable with no evidence of gallbladder wall thickening, or obvious pericholecystic inflammatory changes. PERITONEUM: Small volume ascites is present with some fluid seen around the liver and spleen as well as in the cul-de-sac. A peritoneal dialysis catheter which had been present previously is no longer seen. PANCREAS: Unremarkable. SPLEEN: Unremarkable. ADRENAL GLANDS: Unremarkable. KIDNEYS AND URETERS: The kidneys are normal in size, shape, and attenuation. Some tiny punctate calculi are present bilaterally without obstruction. No hydronephrosis, hydroureter, or ureteral calculi seen. No perinephric stranding. BLADDER: Unremarkable. GASTROINTESTINAL TRACT: Status post gastric bypass. Moderate stool burden is present in the colon. The small and large bowel are otherwise unremarkable. The appendix is unremarkable. ABDOMINAL WALL: No significant hernia is appreciated. LYMPH NODES: No retroperitoneal lymphadenopathy. VASCULAR: Calcific atherosclerotic changes are present in the aorta and iliofemoral vessels. There is no evidence of an abdominal aortic aneurysm. PELVIC VISCERA: There is an ovoid mass in the high right pelvis with large central calcification which could represent a right ovary. This finding has been seen in the past. The uterus is not present. OSSEOUS STRUCTURES: Unremarkable. Minimal grade 1 anterolisthesis of L4 upon L5. CT/CT abdomen pelvis wo IV con IMPRESSION: 1. A cause for the patient's left lower quadrant pain has not been found. 2. Cholelithiasis without cholecystitis. 3. Small volume ascites. 4. Bilateral nonobstructing renal calculi. 5. Status post gastric bypass. 6. Other incidental findings as described above. Fleischner guidelines were followed.
[2023-08-19 11:19] VITALS: BP 176/72; PULSE 88; O2SAT 98
--- NOTE | 2023-08-19 12:19 | ED_ITS ---
HPI - General Adult General Chief complaint: Nausea/Vomiting/Diarrhea Stated complaint: N/V,WEAK X2 DAYS PER EMS Time Seen by Provider: 08/19/23 16:18 Source: patient and EMS Mode of arrival: EMS Limitations: no limitations History of Present Illness HPI narrative: Patient is a 53-year-old female who presents to the emergency department via EMS for evaluation. She reports 2 days ago she developed nausea in the afternoon, yesterday following her dialysis treatment she began having small episodes of vomiting described as ?white spit?, and left lower quadrant abdominal pain. She reports she is having frequent hard bowel movements, without hematochezia or melena. She reports that she experienced this pain recently during her hospital admission but does admit that the pain at this time is less than during her prior admission. She states that she has been compliant with her medications as prescribed including the omeprazole and sucralfate. She reports that she ran out of ondansetron has not had any over the past 4 days. She denies associated fevers, chills, chest pain, shortness of breath, upper abdominal pain, numbness or tingling of her extremities, genitourinary symptoms. Related Data Home Medications ?Medication ?Instructions ?Recorded ?Confirmed ferrous sulfate 325 mg (65 mg 325 mg PO BID 05/11/20 08/10/23 iron) tablet,delayed release cyanocobalamin (vitamin B-12) 1,000 mcg PO DAILY 10/17/20 08/10/23 1,000 mcg tablet pyridoxine (vitamin B6) 50 mg 50 mg PO DAILY 06/06/21 08/10/23 tablet buspirone 5 mg tablet 5 mg PO TID anxiety 07/05/21 08/10/23 carvedilol 3.125 mg tablet 3.125 mg PO BID 07/05/21 08/10/23 ergocalciferol (vitamin D2) 1,250 1,250 mcg PO PLEITEZ@0900 07/05/21 08/10/23 mcg (50,000 unit) capsule (Vitamin D2) vitamin B comp no.3-folic acid 1 1 tab PO DAILY 07/05/21 08/10/23 mg-vit C 60 mg-biotin 300 mcg tablet (Lesly-Toni Rx) midodrine 5 mg tablet 5 mg PO TID 03/25/23 08/10/23 acetaminophen 500 mg capsule 1,000 mg PO Q8H PRN Pain 08/10/23 08/10/23 (Mapap (acetaminophen)) fluticasone propionate 50 1 spray intranasal DAILY PRN 08/10/23 08/10/23 mcg/actuation nasal Allergy Symptoms spray,suspension [id number] 45 mg-folic 1 cap PO DAILY 08/10/23 08/10/23 acid 800 mcg-vit K 120 mcg capsule (Bariatric Multivitamins) ondansetron 4 mg disintegrating 4 mg PO Q8H PRN Nausea And Vomiting 08/10/23 08/10/23 tablet parenteral amino acid 15% no.5 15 0.5 ea IV MOWEFR@0900 08/10/23 08/10/23 % combination no.5 intravenous solution (Clinisol SF) sucralfate 1 gram tablet 1 g PO QID 08/10/23 08/10/23 Previous Rx's ?Medication ?Instructions ?Recorded citalopram 20 mg tablet 20 mg PO DAILY 90 days #90 tabs 02/24/23 cyclobenzaprine 5 mg tablet 5 mg PO BEDTIME #14 tabs 02/24/23 acetic acid 2 % ear solution 3 drp otic (ear) left Q6H 7 days 06/26/23 #15 mL furosemide 80 mg tablet 80 mg PO DAILY 90 days #90 tabs 06/26/23 gabapentin 300 mg capsule 300 mg PO TID 30 days #90 caps 06/26/23 melatonin 10 mg capsule 10 mg PO BEDTIME PRN sleep 90 days 06/26/23 #90 caps thiamine HCl (vitamin B1) 100 mg 100 mg PO DAILY 90 days #90 tabs 07/01/23 tablet vitamin A 2,400 mcg capsule 2,400 mcg PO DAILY 90 days #90 caps 07/01/23 nicotine (polacrilex) 2 mg buccal 2 mg buccal Q2H PRN Nicotine 08/12/23 lozenge Cravings #100 ea omeprazole 40 mg capsule,delayed 40 mg PO BID #60 caps 08/12/23 release ondansetron 4 mg disintegrating 4 mg PO Q8H PRN nausea and 08/19/23 tablet vomiting #10 tabs Allergies Allergy/AdvReac Type Severity Reaction Status Date / Time ibuprofen Allergy Severe Unknown Verified 08/19/23 12:24 nifedipine Allergy Intermediate hives, leg Verified 08/19/23 12:24 edema Review of Systems 2 Review of Systems: Yes all other systems are reviewed and are negative [facility] Past Medical History Attestation statement: The following information was validated with the patient. 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 Lumbar back pain with radiculopathy affecting left lower extremity Physical exam (~02/14/21) Peritoneal dialysis catheter in place Polyarthralgia Dyslipidemia Family history of ovarian cancer Abnormal mammogram of right breast Angina pectoris syndrome Chest pain Constipation Nephrosclerosis Renal interstitial fibrosis Obesity (BMI 30-39.9) Back pain GERD (gastroesophageal reflux disease) History of headache HTN (hypertension) Surgical History S/P arteriovenous (AV) graft placement History of sleeve gastrectomy Fistula Hx of colonoscopy Hx of hysterectomy Hx of tubal ligation History of endometrial ablation Family History Family History Father Asthma Mother Asthma Hypertension Ovarian cancer Maternal Grandfather Myocardial infarction Paternal Grandmother Stroke Social History Social History Household Members: None Housing: Apartment Do you presently have visiting nurse or other home services: Yes Alcohol intake: current Alcohol intake frequency: does not drink Alcohol type: beer Comment: Patient doesn't want bed alarm on Patient Tobacco Use Status: Current everyday Tobacco user Tobacco use type: Cigarette Cigarettes Per Day: 2 Years Smoked: 10+ Smoked in Last 30 Days: Yes e-Cigarette/Vaping Use: Never Used Second Hand Smoke Exposure: No Use of substances other than those prescribed or required for medical reasons: No Advance Directives: Yes Advance Directives on File: Yes Advance Directives Date on File: 04/27/20 Do you have a plan to hurt others: No Plan service: No Current occupational status: employed Cognitive needs: No Hearing needs: No Vision needs: Yes (reading glasses) Physical Exam ED Vital Signs: Vital Signs - 24 hr 08/19/23 12:20 08/19/23 16:08 08/19/23 18:38 Temperature 99.1 F 99.1 F 99.3 F Pulse Rate 95 85 94 Respiratory Rate 16 13 12 Blood Pressure 161/90 H 152/83 H 156/85 H Pulse Oximetry 96 97 99 Oxygen Delivery Method Room Air Room Air Room Air 08/19/23 20:24 08/19/23 21:31 Temperature 99.0 F 99.0 F Pulse Rate 96 96 Respiratory Rate 12 17 Blood Pressure 131/75 125/66 Pulse Oximetry 98 98 Oxygen Delivery Method Room Air Room Air BMI result Body Mass Index 19.3 Appearance: Alert.?Oriented to person, place and time. No acute distress.?Normal affect. Eyes: Pupils equal, round and reactive to light.? ENT: Pharynx normal.?? Neck: Normal inspection.? Neck supple.?? CVS: Heart sounds normal. Normal heart rate and rhythm.? Pulses normal.?? Respiratory: No respiratory distress.? Lung sounds clear to auscultation bilaterally?? Abdomen: Soft with left upper and lower quadrant tenderness upon palpation. No rigidity or guarding. Normoactive bowel sounds. No pulsatile mass.?? Skin: Skin warm and dry.? Normal skin color.? Extremities: No lower extremity edema.? No calf ttp? Neuro: Moves all extremities spontaneously. Sensation intact bilaterally. Ambulates with normal steady gait. Course Course Course Narrative: RME, this is a rapid medical exam performed by Alfredo Hernadez please refer to primary provider for complete H&P- 53-year-old female with past medical history significant for end-stage renal disease on dialysis, hyperkalemia, gastritis, esophagitis, recent upper GI bleed, discharged on 08/12/2023 presenting for evaluation of abdominal pain, vomiting and fevers.. Patient had upper endoscopy on 08/12/2023 point doctor has some that showed gastritis, esophagitis, marginal stomach ulcer, Schatzki's ring. Plan for labs Reevaluation(s) Reevaluation #1: CT of the abdomen and pelvis was without acute pathology. She is tolerating oral intake, reports improvement in her nausea, suspect that symptoms are secondary to her ongoing gastritis/esophagitis. Send prescription for antiemetic to pharmacy and recommended outpatient follow-up with gastroenterology as scheduled. Discussed worrisome signs and symptoms that would warrant re-evaluation in the emergency department. All questions answered. Stable for discharge Medications Administered Discontinued Medications Generic Name Dose Route Start Last Admin Trade Name Devanq PRN Reason Stop Dose Admin Morphine Sulfate 2 mg 08/19/23 17:18 08/19/23 18:46 Morphine Sulfate 2 Mg/Ml Cartridge IVPUSH 08/19/23 17:19 2 mg ONCE ONE Administration Protocol Ondansetron HCl 4 mg 08/19/23 17:16 08/19/23 18:46 Ondansetron Hcl 4 Mg/2 Ml Vial IVPUSH 08/19/23 17:17 4 mg ONCE ONE Administration Medical Decision Making Medical Decision Making [facility] Narrative: Patient is a 53-year-old female with past medical history of hypertension, end- stage renal disease on dialysis Friday, GI be, GERD, hemorrhoids, diverticulosis, gastric sleeve with recent revision in 06/[address] [facility] Dr. Banks, presents to the ED for evaluation of left-sided abdominal pain with nausea and vomiting as per HPI. She reports symptoms to be consistent with her recent admission. On review of records she was admitted 07/10/2023-August 11, she underwent upper endoscopy - which revealed gastritis, esophagitis, marginal stomach ulcer and Schatzki's ring, and was recommended to be discharged on omeprazole and sucralfate which she reports compliance with, it is awaiting outpatient follow-up with Gastroenterology regarding biopsy results. On review chart, biopsy is without evidence of H pylori or metaplastic changes. Differential Diagnosis Differential Diagnoses: The differential diagnosis associated with the presentation includes (Gastritis, gastroenteritis, esophagitis, diverticulitis,, viral syndrome) Admission/Observation Consideration of admission/observation: Escalation of care including admission/observation considered Lab Data [facility] Lab Attestation statement: I reviewed the patient's lab results. CBC reveals leukocytosis 14.9 with left shift, normocytic anemia that does not meet transfusion criteria, no thrombocytopenia. Electrolytes overall unremarkable, CKD on dialysis, LFTs and lipase within normal range. Viral panel negative. 08/19/23 12:42 08/19/23 12:42 Labs: Lab Results 08/19/23 08/19/23 Range/Units 12:42 21:28 WBC 14.9 H (4.8-10.8) X10*3/uL RBC 3.58 L D (4.20-5.50) X10*6/uL Hgb 11.5 L D (12.0-16.0) g/dl Hct 34.0 L D (37.0-47.0) % MCV 95.0 (80.0-98.0) fL MCH 32.1 (27.0-33.0) pg MCHC 33.8 (31.0-35.0) g/dl RDW 17.3 H (11.0-16.0) % Plt Count 361 D (160-400) X10*3/uL MPV 8.8 L (9.4-12.3) fL Immature Gran % (Auto) 0.5 H (0.0-0.4) % Neut % (Auto) 85.5 H (45-73) % Lymph % (Auto) 8.4 L (20-40) % Woods % (Auto) 5.3 (2-11) % Eos % (Auto) 0.0 (0-4) % Baso % (Auto) 0.3 (0-2) % Lymph # (Auto) 1.3 (1.2-4.9) X10*3/uL Woods # (Auto) 0.8 (0.1-1.2) X10*3/uL Eos # (Auto) 0.0 (0.0-0.4) X10*3/uL Baso # (Auto) 0.1 (0.0-0.2) X10*3/uL Abs Immat Gran (auto) 0.08 H (0.00-0.03) X10*3/uL Absolute Neuts (auto) 12.7 H (2.0-8.3) x10*3/uL Absolute Nucleated RBC 0.000 (0.0-0.012) X10*3/uL Nucleated RBC % (auto) 0.0 (0.0-0.2) /100WBC PT 11.5 (11.1-13.3) SEC INR 0.9 (0.9-1.1) Sodium 140 (135-145) mmol/L Potassium 4.4 (3.3-5.1) mmol/L Chloride 99 (96-108) mmol/L Carbon Dioxide 32 H (22-29) mmol/L Anion Gap 13 (12-20) BUN 19 H (9-16) mg/dL Creatinine 3.57 H (0.5-1.4) mg/dL Estim Creat Clear Calc 15.3 Estimated GFR 13 Random Glucose 99 (60-115) mg/dL Calcium 10.2 D (8.4-10.2) mg/dL Total Bilirubin 0.6 (0.0-1.0) mg/dL AST 14 (5-31) U/L ALT 9 (0-31) U/L Alkaline Phosphatase 115 (39-117) U/L Troponin I High Sens 7.2 (<3.5-17.0) ng/L Total Protein 6.1 L (6.5-8.0) g/dL Albumin 3.1 L (3.5-5.0) g/dL Lipase 28 (8-78) U/L Urine Color Yellow Urine Appearance Clear Urine pH 8.5 (5.0-9.0) Ur Specific [place] 1.015 (1.005-1.025) Urine Protein 100 (2+) H (Neg-Trace) mg/dL Urine Glucose (UA) Negative (Negative) mg/dL Urine Ketones Negative (Negative) mg/dL Urine Blood Negative (Negative) Urine Nitrite Negative (Negative) Ur Leukocyte Esterase Negative (Negative) Urine RBC 0-2 (0-2) /HPF Urine WBC 0-5 (0-5) /HPF Ur Squamous Epith Cells 0-2 (0-2) /HPF Urine Bacteria None Seen (None Seen) Hyaline Casts 0-2 (0-2) /LPF Influenza Type A (PCR) NEGATIVE (Negative) Influenza Type B (PCR) NEGATIVE (Negative) RSV RNA Qual (PCR) NEGATIVE (Negative) SARS-CoV-2 RNA (RT-PCR) NEGATIVE (Negative) Blood Type O Positive Antibody Screen NEGATIVE Independent Interpretation I performed an independent interpretation of an: Plain X-Ray (CXR without infiltrate or consolidation) and CT Scan Radiology Impression Discussion of test interpretation with radiology: I have reviewed the radiologist's reading. Radiologist Impression: XR/XR chest 2V IMPRESSION: Unremarkable examination. CT/CT abdomen pelvis wo IV con IMPRESSION: 1. A cause for the patient's left lower quadrant pain has not been found. 2. Cholelithiasis without cholecystitis. 3. Small volume ascites. 4. Bilateral nonobstructing renal calculi. 5. Status post gastric bypass. 6. Other incidental findings as described above. External Record Review External record reviewed: Inpatient record (See narrative above) Discharge Plan Discharge Clinical Impression: Gastritis Patient Disposition: Home, Self-Care Instructions: Gastritis (ED) Additional Instructions: Continue taking your medications as prescribed. Follow-up with a roll threader operator as scheduled. Return back to emergency department any new or worsening symptoms or concerns. Prescriptions: New ondansetron 4 mg tablet,disintegrating 4 mg PO Q8H PRN (Reason: nausea and vomiting) Qty: 10 0RF No Action thiamine HCl (vitamin B1) 100 mg tablet 100 mg PO DAILY 90 Days Qty: 90 0RF vitamin A 2,400 mcg capsule 2,400 mcg PO DAILY 90 Days Qty: 90 0RF cyanocobalamin (vitamin B-12) 1,000 mcg Tablet 1,000 mcg PO DAILY sucralfate 1 gram tablet 1 g PO QID acetaminophen [Mapap (acetaminophen)] 500 mg capsule 1,000 mg PO Q8H PRN (Reason: Pain) Clinisol SF 15 % 15 % parenteral solution 0.5 ea IV MOWEFR@0900 Rx Instructions: DIALYSIS MEDICATION Bariatric Multivitamins 45 mg iron- 800 mcg-120 mcg Capsule 1 cap PO DAILY ondansetron 4 mg tablet,disintegrating 4 mg PO Q8H PRN (Reason: Nausea And Vomiting) fluticasone propionate 50 mcg/actuation spray,suspension 1 spray intranasal DAILY PRN (Reason: Allergy Symptoms) Rx Instructions: administer into each nostril nicotine (polacrilex) 2 mg Lozenge 2 mg buccal Q2H PRN (Reason: Nicotine Cravings) Qty: 100 0RF omeprazole 40 mg capsule,delayed release(DR/EC) 40 mg PO BID Qty: 60 0RF pyridoxine (vitamin B6) 50 mg tablet 50 mg PO DAILY carvedilol 3.125 mg tablet 3.125 mg PO BID cyclobenzaprine 5 mg tablet 5 mg PO BEDTIME Qty: 14 0RF citalopram 20 mg tablet 20 mg PO DAILY 90 Days Qty: 90 1RF furosemide 80 mg tablet 80 mg PO DAILY 90 Days Qty: 90 1RF gabapentin 300 mg capsule 300 mg PO TID 30 Days Qty: 90 1RF melatonin 10 mg capsule 10 mg PO BEDTIME PRN (Reason: sleep) 90 Days Qty: 90 1RF acetic acid 2 % solution 3 drp otic (ear) left Q6H 7 Days Qty: 15 0RF Rx Instructions: apply to (cotton) wick; replace wick every 24 hours ferrous sulfate 325 mg (65 mg iron) tablet,delayed release (DR/EC) 325 mg PO BID Lesly-Toni Rx 1-60-300 mg-mg-mcg tablet 1 tab PO DAILY ergocalciferol (vitamin D2) [Vitamin D2] 1,250 mcg (50,000 unit) capsule 1,250 mcg PO PLEITEZ@0900 buspirone 5 mg tablet 5 mg PO TID midodrine 5 mg tablet 5 mg PO TID Interventions: ED Discharge Assessment Last Done: 08/19/23 21:31 Discharge Date/Time: 08/19/23 21:43 Print Language: Slovak
[2023-08-19 12:20] VITALS: BP 161/90; PULSE 95; RESP 16; TEMP 37.3; O2SAT 96; BMI 19.3
[2023-08-19 12:50] LABS: MANUAL DIFF FLAG NO
[2023-08-19 12:53] LABS: Basophils Absolute Auto 0.1 X10*3/uL (0.0-0.2); Basophils Percent Auto 0.3 % (0-2); Hemoglobin 11.5 g/dl (12.0-16.0); Imm Gran Abs Auto 0.08 X10*3/uL (0.00-0.03); Imm Gran Pct Auto 0.5 % (0.0-0.4); Lymphocytes Absolute Auto 1.3 X10*3/uL (1.2-4.9); Lymphocytes Percent Auto 8.4 % (20-40); Mean Corpuscular HGB Conc 33.8 g/dl (31.0-35.0); Mean Corpuscular Hemoglobin 32.1 pg (27.0-33.0); Mean Platelet Volume 8.8 fL (9.4-12.3); Monocytes Absolute Auto 0.8 X10*3/uL (0.1-1.2); Monocytes Percent Auto 5.3 % (2-11); Neutrophils Absolute Auto 12.7 x10*3/uL (2.0-8.3); Neutrophils Percent Auto 85.5 % (45-73); Platelet Count 361 X10*3/uL (160-400); Red Blood Count 3.58 X10*6/uL (4.20-5.50); Red Cell Distribution Width 17.3 % (11.0-16.0); White Blood Count 14.9 X10*3/uL (4.8-10.8)
[2023-08-19 13:01] LABS: INTERNATIONAL NORM RATIO 0.9 (0.9-1.1); Prothrombin Time 11.5 SEC (11.1-13.3)
[2023-08-19 13:04] LABS: Alanine Aminotransferase 9 U/L (0-31); Albumin Level 3.1 g/dL (3.5-5.0); Alkaline Phosphatase 115 U/L (39-117); Anion Gap 13 (12-20); Aspartate Amino Transferase 14 U/L (5-31); Bilirubin Total 0.6 mg/dL (0.0-1.0); Blood Urea Nitrogen 19 mg/dL (9-16); Calcium 10.2 mg/dL (8.4-10.2); Carbon Dioxide 32 mmol/L (22-29); Chloride 99 mmol/L (96-108); Creatinine Clr Calc Pharmacy 15.3; Estimated Glomerular Filt Rate 13; Glucose Random 99 mg/dL (60-115); Lipase 28 U/L (8-78); Potassium 4.4 mmol/L (3.3-5.1); Sodium 140 mmol/L (135-145); Total Protein 6.1 g/dL (6.5-8.0)
[2023-08-19 13:11] LABS: Troponin-I High Sensitivity 7.2 ng/L (<3.5-17.0)
[2023-08-19 13:27] LABS: Influenza A PCR NEGATIVE (Negative); Influenza B PCR NEGATIVE (Negative); Resp Syncy Virus RNA Qual PCR NEGATIVE (Negative); SARS COV2 PCR INHOUSE NEGATIVE (Negative)
[2023-08-19 16:08] VITALS: BP 152/83; PULSE 85; RESP 13; TEMP 37.3; O2SAT 97
[2023-08-19 18:38] VITALS: BP 156/85; PULSE 94; RESP 12; TEMP 37.4; O2SAT 99
[2023-08-19] MEDS: Morphine Sulfate 2 MG/ML CARTRIDGE IVPUSH (18:46)
[2023-08-19] MEDS: ondansetron HCL 4 MG/2 ML VIAL IVPUSH (18:46)
[2023-08-19 20:24] VITALS: BP 131/75; PULSE 96; RESP 12; TEMP 37.2; O2SAT 98
[2023-08-19 21:31] VITALS: BP 125/66; PULSE 96; RESP 17; TEMP 37.2; O2SAT 98
[2023-08-19 21:38] LABS: Appearance Urine Clear; Color Urine Yellow; Glucose Urine UA Negative (Negative); Leukocyte Esterase Urine Negative (Negative); Nitrite Urine Negative (Negative); PH 8.5 (5.0-9.0); Specific Gravity - Urine 1.015 (1.005-1.025); UMIC TRIGGER UACC YES; Urine Blood Negative (Negative); Urine Ketones Negative (Negative); Urine Protein 100 (2+) mg/dL (Neg-Trace)
[2023-08-19 21:41] LABS: Bacteria Urine None Seen (None Seen); Hyaline Casts Urine 0-2 /LPF (0-2); RBC Urine 0-2 /HPF (0-2); Squamous Epithelial Cell Urine 0-2 /HPF (0-2); WBC Urine 0-5 /HPF (0-5)
== END 2023-08-19 21:43 | disposition home or self-care (01) ==
PROVIDERS: Physician Assistant; Emergency Provider Emergency Medicine
DX: K29.70 Gastritis, unspecified, without bleeding (principal); R10.32 Left lower quadrant pain; K80.20 Calculus of gallbladder without cholecystitis without obstruction; R18.8 Other ascites; N20.0 Calculus of kidney; I12.0 Hypertensive chronic kidney disease with stage 5 chronic kidney disease or end stage renal disease; N18.6 End stage renal disease; Z99.2 Dependence on renal dialysis
CPT/HCPCS: 0241U; 36415; 71046; 74176; 80053; 81001; 83690; 84484; 85025; 85610; 86850; 86900; 86901; 96374; 96375; 99284; J2270; J2405

== ENCOUNTER → 2023-09-01 23:59 | Outpatient (BNV) | payer MEDICARE, MEDICAID, SELFPAY | PROVIDERS: PCP Internal Medicine; Visit Provider Internal Medicine | DX: I12.0 Hypertensive chronic kidney disease with stage 5 chronic kidney disease or end stage renal disease (principal); N18.6 End stage renal disease; E78.5 Hyperlipidemia, unspecified | CPT/HCPCS: G0180 ==

== ENCOUNTER 2023-10-31 15:23 | Emergency (ER) | payer MEDICARE, MEDICAID, SELFPAY ==
[2023-10-31] VITALS (7 sets, daily range): BP systolic 184–225; BP diastolic 102–121; PULSE 89–174; RESP 18–25; TEMP 36.2–37.7; O2SAT 96–98; BMI 20.4
--- NOTE | ~2023-10-31 | CT_ITS ---
EXAMINATION: CT ABDOMEN AND PELVIS WITHOUT CONTRAST (STONE STUDY) CLINICAL INFORMATION: Tenderness around new peritoneal dialysis catheter. COMPARISON: Portions of previous CT 08/19/23 TECHNIQUE: Helical scanning was performed with collimation through the abdomen and pelvis using the low-dose CT stone study protocol. No contrast. DLP: 320 mGy-cm. FINDINGS: Liver: No suspicious focal lesion. The liver contour appears smooth. Biliary tree: There is no opaque gallstone. There is some layering mild high density which could be sludge. No localized pericholecystic fluid. No biliary dilation demonstrated Spleen: No suspicious focal abnormality. Pancreas: Limited assessment. No definite abnormality. Kidneys: The kidneys are relatively small. There are punctate calcifications bilaterally. There is visualization of the intrarenal collecting system and renal pelvis on both sides. This is slightly more prominent and 08/19/23. There is no suspicious renal mass demonstrated Urinary bladder: There is urine within the bladder. No focal abnormality. GI tract: There is gas and semisolid material in the proximal colon. The proximal colonic wall is slightly irregular and there is some nondependent gas within the colon. The pattern could be related to thick viscous material with interspersed gas. Difficult to exclude pneumatosis. There has been previous bariatric procedure with probable gastrojejunostomy. There may have been previous gastric sleeve procedure. The bowel distal to the anastomosis is at least moderately thickened and distended by gas. There is pneumoperitoneum. Abdominal wall: A peritoneal dialysis catheter traverses the subcutaneous tissues and abdominal wall musculature to the left of midline in the midabdomen. The catheter is coiled in the deep right lower pelvis. There is soft tissue gas around the catheter entry site. There is stranding in the subcutaneous fat near the entry site. Pelvic viscera: The uterus is not well demonstrated. No large adnexal mass. Fluid: There is a [id number] amount of intraperitoneal fluid. MUSCULOSKELETAL: No suspicious focal lesion. There is mild anterolisthesis of L4 relative to L5 with a focal disc protrusion at this level. There is some narrowing of the thecal sac. There is facet disease greatest at L4/L5 Visualized lower chest There is a small opacity in the lateral segment of the middle lobe which could be atelectasis. CT/CT abdomen pelvis wo IV con IMPRESSION: There is pneumoperitoneum and intraperitoneal fluid. Correlation necessary in the presence of a recently placed peritoneal dialysis catheter. There is stranding in the subcutaneous abdominal wall without drainable fluid collection. Mixed soft tissue and gas density in the proximal colon could be related to viscus material but pneumatosis is difficult to exclude. Previous bariatric procedure with thickening of the bowel distal to the gastrojejunostomy. Electronically signed by: Dakotah Bell MD 10/31/2023 05:47 PM EDT
--- NOTE | 2023-10-31 15:38 | ECG_ITS ---
Test Reason : Tachycardia Blood Pressure : / mmHG Vent. Rate : 092 BPM Atrial Rate : 092 BPM P-R Int : 122 ms QRS Dur : 080 ms QT Int : 366 ms P-R-T Axes : 054 049 071 degrees QTc Int : 452 ms Normal sinus rhythm Minimal voltage criteria for LVH, may be normal variant ( Sokolow-Sawyer ) Borderline ECG When compared with ECG of 10-AUG-2023 02:24, Nonspecific T wave abnormality no longer evident in Anterior leads Referred By: Meg Doty Electronically Signed By:RIMA WILSON
[2023-10-31 15:47] LABS: MANUAL DIFF FLAG NO
--- NOTE | 2023-10-31 15:49 | ED.GENADULT ---
HPI - General Adult General Chief complaint: General Medical Stated complaint: supre pubic pain cath area, 10 pain, tachy Time Seen by Provider: 10/31/23 15:38 Source: patient, EMS and RN notes reviewed Mode of arrival: EMS Limitations: no limitations History of Present Illness ED Provider: zeeshan HPI narrative: Patient is a 53-year-old female with history of ESRD on M/W/F dialysis, last dialyzed on Friday, HTN, GERD, dyslipidemia presenting to the emergency department with complaint of abdominal pain, chills, and shortness of breath since having peritoneal dialysis catheter replaced yesterday at [facility]. She has not checked temperature but reports feeling hot. Sees Dr. Wang for nephrology. She reports that she was doing peritoneal dialysis herself at home around 5 years ago, but she has a son with complex medical needs, and it was too much to care for herself and him, so she went on hemodialysis for the past 5 years. Son is now living with his father, so she is trying to transition back to peritoneal dialysis. She reports that she is able to make urine. Reports nausea but denies vomiting or diarrhea. MD complaint: abdominal pain Onset (ago): hour(s) Location: abdomen Radiation: non-radiation Quality: aching Pain Consistency: constant Relieving factors: rest Associated symptoms: fever/chills and nausea/vomiting Treatments prior to arrival: other (OTC pain medication) Related Data Home Medications ?Medication ?Instructions ?Recorded ?Confirmed ferrous sulfate 325 mg (65 mg 325 mg PO BID 05/11/20 08/10/23 iron) tablet,delayed release cyanocobalamin (vitamin B-12) 1,000 mcg PO DAILY 10/17/20 08/10/23 1,000 mcg tablet pyridoxine (vitamin B6) 50 mg 50 mg PO DAILY 06/06/21 08/10/23 tablet buspirone 5 mg tablet 5 mg PO TID anxiety 07/05/21 08/10/23 carvedilol 3.125 mg tablet 3.125 mg PO BID 07/05/21 08/10/23 ergocalciferol (vitamin D2) 1,250 1,250 mcg PO PLEITEZ@0900 07/05/21 08/10/23 mcg (50,000 unit) capsule (Vitamin D2) vitamin B comp no.3-folic acid 1 1 tab PO DAILY 07/05/21 08/10/23 mg-vit C 60 mg-biotin 300 mcg tablet (Lesly-Toni Rx) midodrine 5 mg tablet 5 mg PO TID 03/25/23 08/10/23 acetaminophen 500 mg capsule 1,000 mg PO Q8H PRN Pain 08/10/23 08/10/23 (Mapap (acetaminophen)) fluticasone propionate 50 1 spray intranasal DAILY PRN 08/10/23 08/10/23 mcg/actuation nasal Allergy Symptoms spray,suspension [id number] 45 mg-folic 1 cap PO DAILY 08/10/23 08/10/23 acid 800 mcg-vit K 120 mcg capsule (Bariatric Multivitamins) ondansetron 4 mg disintegrating 4 mg PO Q8H PRN Nausea And Vomiting 08/10/23 08/10/23 tablet parenteral amino acid 15% no.5 15 0.5 ea IV MOWEFR@0900 08/10/23 08/10/23 % combination no.5 intravenous solution (Clinisol SF) sucralfate 1 gram tablet 1 g PO QID 08/10/23 08/10/23 Previous Rx's ?Medication ?Instructions ?Recorded cyclobenzaprine 5 mg tablet 5 mg PO BEDTIME #14 tabs 02/24/23 acetic acid 2 % ear solution 3 drp otic (ear) left Q6H 7 days 06/26/23 #15 mL furosemide 80 mg tablet 80 mg PO DAILY 90 days #90 tabs 06/26/23 gabapentin 300 mg capsule 300 mg PO TID 30 days #90 caps 06/26/23 melatonin 10 mg capsule 10 mg PO BEDTIME PRN sleep 90 days 06/26/23 #90 caps nicotine (polacrilex) 2 mg buccal 2 mg buccal Q2H PRN Nicotine 08/12/23 lozenge Cravings #100 ea omeprazole 40 mg capsule,delayed 40 mg PO BID #60 caps 08/12/23 release ondansetron 4 mg disintegrating 4 mg PO Q8H PRN nausea and 08/19/23 tablet vomiting #10 tabs citalopram 20 mg tablet 20 mg PO DAILY 90 days #90 tabs 09/16/23 thiamine HCl (vitamin B1) 100 mg 100 mg PO DAILY 90 days #90 tabs 09/27/23 tablet vitamin A 2,400 mcg capsule 2,400 mcg PO DAILY 90 days #90 caps 09/27/23 Allergies Allergy/AdvReac Type Severity Reaction Status Date / Time ibuprofen Allergy Severe Unknown Verified 10/31/23 15:36 nifedipine Allergy Intermediate hives, leg Verified 08/19/23 12:24 edema Review of Systems Review of Systems: As per HPI Yes all other systems are reviewed and are negative Constitutional: Constitutional: Reports as per HPI PMFSH Past Medical History Medical History Moderate major depression ESRD on dialysis Physical exam Spondylosis without myelopathy or radiculopathy, lumbar region Spinal stenosis 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 Lumbar back pain with radiculopathy affecting left lower extremity Physical exam (~02/14/21) Peritoneal dialysis catheter in place Polyarthralgia Dyslipidemia Family history of ovarian cancer Abnormal mammogram of right breast Angina pectoris syndrome Chest pain Constipation Nephrosclerosis Renal interstitial fibrosis Obesity (BMI 30-39.9) Back pain GERD (gastroesophageal reflux disease) History of headache HTN (hypertension) Surgical History S/P arteriovenous (AV) graft placement History of sleeve gastrectomy Fistula Hx of colonoscopy Hx of hysterectomy Hx of tubal ligation History of endometrial ablation Family History Family History Father Asthma Mother Asthma Hypertension Ovarian cancer Maternal Grandfather Myocardial infarction Paternal Grandmother Stroke Social History Social History Household Members: None Housing: Apartment Do you presently have visiting nurse or other home services: Yes Alcohol intake: current Alcohol intake frequency: does not drink Alcohol type: beer Comment: Patient doesn't want bed alarm on Patient Tobacco Use Status: Current everyday Tobacco user Tobacco use type: Cigarette Cigarettes Per Day: 2 Years Smoked: 10+ Smoked in Last 30 Days: Yes e-Cigarette/Vaping Use: Never Used Second Hand Smoke Exposure: No Use of substances other than those prescribed or required for medical reasons: No Advance Directives: Yes Advance Directives on File: Yes Advance Directives Date on File: 03/18/21 Patient : No service: No Current occupational status: employed Cognitive needs: No Hearing needs: No Vision needs: Yes (reading glasses) Physical Exam ED Vital Signs: Vital Signs - 24 hr 10/31/23 15:32 10/31/23 15:48 10/31/23 15:59 Temperature 99 F 100 F Pulse Rate 96 95 Respiratory Rate 24 H 25 H 22 H Blood Pressure 225/121 H Pulse Oximetry 98 Oxygen Delivery Method Room Air 10/31/23 17:25 10/31/23 18:03 10/31/23 19:22 Temperature 97.1 F Pulse Rate 102 H Respiratory Rate 18 Blood Pressure 216/115 H 205/111 H Pulse Oximetry 96 Oxygen Delivery Method Room Air BMI result Body Mass Index 20.4 Vital signs have been reviewed and appear to be correct. Blood pressure hypertensive. Heart rate slightly tachycardic. Respiratory rate normal. Temperature elevated on arrival. Oxygen saturation normal. Const General: cooperative and no acute distress Orientation/consciousness: oriented to person, oriented to place, oriented to time and patient oriented x3 Limitations: no limitations HENSD Head: Yes normocephalic and Yes atraumatic Ears: external ears normal General nose exam: Normal external nose present Face and sinus: Yes face symmetric Mouth: oropharynx normal and moist mucous membranes Throat: Yes uvula midline Eyes Pupils: Equal, round and reactive pupils present Neck Neck: Yes normal visual inspection and Yes supple Resp Effort & Inspection: normal respiratory effort and able to speak in complete sentences Auscultation: clear to auscultation bilaterally Cardio Rate: regular rate Rhythm: regular rhythm Heart sounds: S1 normal heart sound present and S2 normal heart sound present GI Inspection: Yes scar and Yes other (dressing to left side of abdomen over new PD catheter, tenderness to palp) Palpation (GI): Soft to palpation and Tenderness to palpation present (GI) other (around newly placed PD catheter) Auscultation: normoactive bowel sounds General: Yes no CVA tenderness Back/Spine/Pelvis Back: no CVA tenderness Skin General skin exam: elasticity normal and turgor normal Neuro General: oriented to person, oriented to place, oriented to time, patient oriented x3, moves all extremities, no focal motor deficits and CN's II-XI intact bilaterally Cranial nerves: Yes Equal, round and reactive pupils present Cognition (Neuro): normal cognition Extrem General: Yes full ROM, Yes no pedal edema and Yes no calf tenderness Psych Mental Status: mental status grossly normal Affect: normal affect Thought process: Normal thought process present Medications Administered Discontinued Medications Generic Name Dose Route Start Last Admin Trade Name Veena PRN Reason Stop Dose Admin Acetaminophen 650 mg 10/31/23 15:51 10/31/23 15:58 Acetaminophen 325 Mg Tablet PO 10/31/23 15:52 650 mg ONCE ONE Administration Hydralazine HCl 5 mg 10/31/23 19:04 10/31/23 19:22 Hydralazine Hcl 20 Mg/Ml Vial IVPUSH 10/31/23 19:05 5 mg ONCE ONE Administration Protocol Piperacillin Sod/Tazobactam 50 mls @ 100 mls/hr 10/31/23 15:58 10/31/23 16:59 Sod 3.375 gm/ Sodium Chloride IV 10/31/23 16:27 Infused ONCE ONE Infusion Vancomycin HCl 1,500 mg/ 500 mls @ 333.333 mls/hr 10/31/23 15:58 10/31/23 18:35 Sodium Chloride IV 10/31/23 17:27 Infused ONCE ONE Infusion Morphine Sulfate 4 mg 10/31/23 15:51 10/31/23 15:59 Morphine Sulfate 4 Mg/Ml Cartridge IVPUSH 10/31/23 15:52 4 mg ONCE ONE Administration Protocol Ondansetron HCl 4 mg 10/31/23 15:51 10/31/23 15:59 Ondansetron Hcl 4 Mg/2 Ml Vial IVPUSH 10/31/23 15:52 4 mg ONCE ONE Administration Medical Decision Making Medical Decision Making MDM Narrative: Patient is a 53-year-old female with history of ESRD on M/W/F dialysis, last dialyzed on Friday, HTN, GERD, dyslipidemia presenting to the emergency department with complaint of abdominal pain, chills, and shortness of breath since having peritoneal dialysis catheter replaced yesterday at [facility]. On exam patient is awake, A+Ox3, hypertensive, mildly tachycardic, low grade temp, normal neurological exam without focal deficits, physical exam findings as above. Given reported symptoms and physical exam findings, initial differential includes peritonitis, perforation, abscess, sepsis. Labs notable for leukocytosis, elevated BUN and creatinine, normal lactic. CT A/P notable for pneumoperitoneum and intraperitoneal fluid, stranding in abdominal wall without fluid collection. My interpretation is in agreement with the radiologist's interpretation. Case discussed with Dr. Swain from [facility] who recommends transfer to [facility] as this is where her PD catheter was placed. Spoke to ED attending, Dr. Cuenca who will accept patient as ED to ED transfer. RN aware, patient updated on and agreeable to plan. Differential Diagnosis Differential Diagnoses: The differential diagnosis associated with the presentation includes as per [facility] Admission/Observation Consideration of admission/observation: Escalation of care including admission/observation considered Consult Healthcare Provider Management of the patient was discussed with: Research Instructor (Dr. Swain, renal; Dr. Cuenca, ED attending [facility]) Lab Data [facility] Lab Attestation statement: I reviewed the patient's lab results. As per [facility] 10/31/23 15:41 10/31/23 15:41 Labs: Lab Results 10/31/23 Range/Units 15:41 WBC 14.9 H (4.8-10.8) X10*3/uL RBC 4.30 D (4.20-5.50) X10*6/uL Hgb 12.8 (12.0-16.0) g/dl Hct 39.5 (37.0-47.0) % MCV 91.9 (80.0-98.0) fL MCH 29.8 (27.0-33.0) pg MCHC 32.4 (31.0-35.0) g/dl RDW 16.4 H (11.0-16.0) % Plt Count 310 (160-400) X10*3/uL MPV 9.8 (9.4-12.3) fL Immature Gran % (Auto) 0.4 (0.0-0.4) % Neut % (Auto) 86.9 H (45-73) % Lymph % (Auto) 7.5 L (20-40) % Dolores % (Auto) 4.6 (2-11) % Eos % (Auto) 0.3 (0-4) % Baso % (Auto) 0.3 (0-2) % Lymph # (Auto) 1.1 L (1.2-4.9) X10*3/uL Dolores # (Auto) 0.7 (0.1-1.2) X10*3/uL Eos # (Auto) 0.0 (0.0-0.4) X10*3/uL Baso # (Auto) 0.1 (0.0-0.2) X10*3/uL Abs Immat Gran (auto) 0.06 H (0.00-0.03) X10*3/uL Absolute Neuts (auto) 13.0 H (2.0-8.3) x10*3/uL Absolute Nucleated RBC 0.000 (0.0-0.012) X10*3/uL Nucleated RBC % (auto) 0.0 (0.0-0.2) /100WBC Sodium 136 (135-145) mmol/L Potassium 4.3 (3.3-5.1) mmol/L Chloride 100 (96-108) mmol/L Carbon Dioxide 27 (22-29) mmol/L Anion Gap 13 (12-20) BUN 30 H (9-16) mg/dL Creatinine 5.16 H* (0.5-1.4) mg/dL Estim Creat Clear Calc 11.1 Estimated GFR 9 Random Glucose 122 H (60-115) mg/dL Lactic Acid 1.6 (0.5-2.0) mmol/L Calcium 10.2 (8.4-10.2) mg/dL Magnesium 2.2 (1.6-2.6) mg/dL Total Bilirubin 0.3 (0.0-1.0) mg/dL AST 12 (5-31) U/L ALT < 5 (0-31) U/L Alkaline Phosphatase 126 H (39-117) U/L Total Protein 6.6 (6.5-8.0) g/dL Albumin 3.4 L (3.5-5.0) g/dL Independent Interpretation I performed an independent interpretation of an: CT Scan Interpretation: CT A/P notable for pneumoperitoneum and intraperitoneal fluid, stranding in abdominal wall without fluid collection. Radiology Impression Discussion of test interpretation with radiology: I have reviewed the radiologist's reading. Radiologist Impression: CT/CT abdomen pelvis wo IV con IMPRESSION: There is pneumoperitoneum and intraperitoneal fluid. Correlation necessary in the presence of a recently placed peritoneal dialysis catheter. There is stranding in the subcutaneous abdominal wall without drainable fluid collection. Mixed soft tissue and gas density in the proximal colon could be related to viscus material but pneumatosis is difficult to exclude. Previous bariatric procedure with thickening of the bowel distal to the gastrojejunostomy. External Record Review External record reviewed: Inpatient record, Office record and Outpatient record Critical Care Time Critical Care Time Critical Care Time: Yes Total Critical Care Time: 60 Attestation: I have personally provided critical care time exclusive of time spent on separately billable procedures. Time includes review of lab data, radiology results, discussion with consultants, and monitoring for potential decompensation. Intervention performed as documented. Discharge Plan Discharge Clinical Impression: Abdominal pain Patient Disposition: [facility] Transfer Details: to [facility], Dr. Cuenca accepting Prescriptions: No Action citalopram 20 mg tablet 20 mg PO DAILY 90 Days Qty: 90 1RF thiamine HCl (vitamin B1) 100 mg tablet 100 mg PO DAILY 90 Days Qty: 90 0RF vitamin A 2,400 mcg capsule 2,400 mcg PO DAILY 90 Days Qty: 90 0RF cyanocobalamin (vitamin B-12) 1,000 mcg Tablet 1,000 mcg PO DAILY ondansetron 4 mg tablet,disintegrating 4 mg PO Q8H PRN (Reason: nausea and vomiting) Qty: 10 0RF sucralfate 1 gram tablet 1 g PO QID acetaminophen [Mapap (acetaminophen)] 500 mg capsule 1,000 mg PO Q8H PRN (Reason: Pain) Clinisol SF 15 % 15 % parenteral solution 0.5 ea IV MOWEFR@0900 Rx Instructions: DIALYSIS MEDICATION Bariatric Multivitamins 45 mg iron- 800 mcg-120 mcg Capsule 1 cap PO DAILY ondansetron 4 mg tablet,disintegrating 4 mg PO Q8H PRN (Reason: Nausea And Vomiting) fluticasone propionate 50 mcg/actuation spray,suspension 1 spray intranasal DAILY PRN (Reason: Allergy Symptoms) Rx Instructions: administer into each nostril nicotine (polacrilex) 2 mg Lozenge 2 mg buccal Q2H PRN (Reason: Nicotine Cravings) Qty: 100 0RF omeprazole 40 mg capsule,delayed release(DR/EC) 40 mg PO BID Qty: 60 0RF pyridoxine (vitamin B6) 50 mg tablet 50 mg PO DAILY carvedilol 3.125 mg tablet 3.125 mg PO BID cyclobenzaprine 5 mg tablet 5 mg PO BEDTIME Qty: 14 0RF furosemide 80 mg tablet 80 mg PO DAILY 90 Days Qty: 90 1RF gabapentin 300 mg capsule 300 mg PO TID 30 Days Qty: 90 1RF melatonin 10 mg capsule 10 mg PO BEDTIME PRN (Reason: sleep) 90 Days Qty: 90 1RF acetic acid 2 % solution 3 drp otic (ear) left Q6H 7 Days Qty: 15 0RF Rx Instructions: apply to (cotton) wick; replace wick every 24 hours ferrous sulfate 325 mg (65 mg iron) tablet,delayed release (DR/EC) 325 mg PO BID Lesly-Toni Rx 1-60-300 mg-mg-mcg tablet 1 tab PO DAILY ergocalciferol (vitamin D2) [Vitamin D2] 1,250 mcg (50,000 unit) capsule 1,250 mcg PO PLEITEZ@0900 buspirone 5 mg tablet 5 mg PO TID midodrine 5 mg tablet 5 mg PO TID Print Language: Croatian
[2023-10-31 15:51] LABS: Basophils Absolute Auto 0.1 X10*3/uL (0.0-0.2); Basophils Percent Auto 0.3 % (0-2); Eosinophils Percent Auto 0.3 % (0-4); Hematocrit 39.5 % (37.0-47.0); Hemoglobin 12.8 g/dl (12.0-16.0); Imm Gran Abs Auto 0.06 X10*3/uL (0.00-0.03); Imm Gran Pct Auto 0.4 % (0.0-0.4); Lymphocytes Absolute Auto 1.1 X10*3/uL (1.2-4.9); Lymphocytes Percent Auto 7.5 % (20-40); Mean Corpuscular HGB Conc 32.4 g/dl (31.0-35.0); Mean Corpuscular Hemoglobin 29.8 pg (27.0-33.0); Mean Corpuscular Volume 91.9 fL (80.0-98.0); Mean Platelet Volume 9.8 fL (9.4-12.3); Monocytes Absolute Auto 0.7 X10*3/uL (0.1-1.2); Monocytes Percent Auto 4.6 % (2-11); Neutrophils Percent Auto 86.9 % (45-73); Platelet Count 310 X10*3/uL (160-400); Red Cell Distribution Width 16.4 % (11.0-16.0); White Blood Count 14.9 X10*3/uL (4.8-10.8)
[2023-10-31] MEDS: Acetaminophen 325 MG TABLET 650 MG PO (15:58)
[2023-10-31] MEDS: ondansetron HCL 4 MG/2 ML VIAL IVPUSH ×2 (15:59→19:40)
[2023-10-31] MEDS: Morphine Sulfate 4 MG/ML CARTRIDGE IVPUSH (15:59)
--- NOTE | 2023-10-31 16:00 | PC.NURSE ---
Pt brought in by ambulance from home, reports severe ABD pain, chills/fevers, N/V since she had a peritoneal dialysis port in yesterday at [facility]. Goes to dialysis M//, last time was this past fri, missed today. Alert and oriented, breathing increased, pt obviously uncomfortable, skin hot and dry. Dressing noted on left side of ABD, intact, no leaking. Fistula on left arm. NSR on sat tutor, noted to be significantly htn. Provider aware
[2023-10-31 16:06] LABS: Lactic Acid 1.6 mmol/L (0.5-2.0)
[2023-10-31] MEDS: Piperacillin Sodium/Tazobactam 3.375 GM in 0.9 % Sodium Chloride 50 ML IV (16:15)
[2023-10-31 16:17] LABS: Alanine Aminotransferase < 5 U/L (0-31); Albumin Level 3.4 g/dL (3.5-5.0); Alkaline Phosphatase 126 U/L (39-117); Anion Gap 13 (12-20); Aspartate Amino Transferase 12 U/L (5-31); Bilirubin Total 0.3 mg/dL (0.0-1.0); Blood Urea Nitrogen 30 mg/dL (9-16); Calcium 10.2 mg/dL (8.4-10.2); Carbon Dioxide 27 mmol/L (22-29); Chloride 100 mmol/L (96-108); Glucose Random 122 mg/dL (60-115); Magnesium 2.2 mg/dL (1.6-2.6); Potassium 4.3 mmol/L (3.3-5.1); Sodium 136 mmol/L (135-145); Total Protein 6.6 g/dL (6.5-8.0)
[2023-10-31 16:22] LABS: Creatinine Clr Calc Pharmacy 11.1; Estimated Glomerular Filt Rate 9
[2023-10-31] MEDS: vancomycin HCL 1,500 MG in 0.9 % Sodium Chloride 500 ML 333.33 MG IV (16:59)
[2023-10-31] MEDS: hydrALAZINE HCl 20 MG/ML VIAL 5 MG IVPUSH (19:22)
--- NOTE | 2023-10-31 19:43 | PC.NURSE ---
Assumed care of pt at 1900, pt resting in bed eyes closed. BP elevated 200's/110's, Pt medicated with hydralazine per orders, c/o nausea, provder aware and t/w medicated with zofran per orders. Provider informed t/w pt will be transferred to [facility] for continuity of care and dialysis.
--- NOTE | 2023-10-31 19:50 | PC.NURSE ---
Called [facility] ED and spoke with Sheldon to give report. Sheldon requested this RN to call back in approximately 10minutes to gie direct report to Alida JOHNSON who will be RN caring for pt upon transfer. T/W informed Sheldon pt vanitauld be getting picked up in the next 5 minutes by ambulance for transport.
[2023-10-31 19:57] LABS: Appearance Urine Clear; Color Urine Yellow; Glucose Urine UA 100 mg/dL (Negative); Leukocyte Esterase Urine Negative (Negative); Nitrite Urine Negative (Negative); PH 8.5 (5.0-9.0); UMIC TRIGGER UACC YES; Urine Blood Trace (Negative); Urine Ketones Negative (Negative); Urine Protein 100 (2+) mg/dL (Neg-Trace)
[2023-10-31 20:09] LABS: Bacteria Urine None Seen (None Seen); Hyaline Casts Urine 0-2 /LPF (0-2); RBC Urine 0-2 /HPF (0-2); Squamous Epithelial Cell Urine 0-2 /HPF (0-2); WBC Urine 0-5 /HPF (0-5)
== END 2023-10-31 20:05 | disposition short-term general hospital (02) ==
PROVIDERS: Registered Nurse Emergency; Emergency Provider Emergency Medicine
DX: R10.2 Pelvic and perineal pain (principal); R06.02 Shortness of breath; R00.0 Tachycardia, unspecified; Z79.899 Other long term (current) drug therapy
CPT/HCPCS: 36415; 74176; 80053; 81001; 81003; 83605; 83735; 85025; 87040; 93005; 96365; 96366; 96367; 96375; 96376; 99285; J0360; J2270; J2405; J2543; J3371

== ENCOUNTER 2023-11-19 08:10 | Inpatient (IN) | payer MEDICARE, MEDICAID, SELFPAY ==
--- NOTE | ~2023-11-19 | XR_ITS ---
EXAMINATION: XR ABDOMEN KUB CLINICAL INDICATION: Free air. Question extravasation of contrast. COMPARISON: Most recent CT abdomen dated 11/20/2023. TECHNIQUE: AP views of the abdomen. FINDINGS: Contrast now seen within the colon. No extraluminal contrast extravasation. Multiple small foci of free air redemonstrated within the upper abdomen. Mild prominence of the bowel loops which are air-filled, similar when compared to the prior CT. Postsurgical changes within the left upper quadrant and left lower quadrant are redemonstrated. Redemonstration of a peritoneal drainage catheter. XR/XR KUB IMPRESSION: 1. Contrast now seen within the colon. No extraluminal contrast extravasation. 2. Multiple small foci of free air redemonstrated within the upper abdomen. 3. Prominent air-filled bowel loops, similar when compared to the prior CT. Electronically signed by: Sheldon Portillo MD 11/20/2023 10:22 PM EDT
--- NOTE | ~2023-11-19 | CT_ITS ---
EXAMINATION: CT ABDOMEN AND PELVIS WITHOUT CONTRAST CLINICAL INFORMATION: Pain and spasms. COMPARISON: CT abdomen and pelvis 10/31/2023. TECHNIQUE: Multidetector volumetric imaging was performed from the superior aspect of the liver through the pubic symphysis. Sagittal and coronal reformatted images were obtained on the technologist's workstation. This CT examination was performed using dose optimization techniques as appropriate, variously including the following: *Automated exposure control *Adjustment of mA and/or kV according to patient size (this includes techniques or standardized protocols for targeted exams where dose is matched to indication/reason for exam; i.e. extremities or head) *Use of iterative reconstruction technique DLP: 578 mGy-cm FINDINGS: LUNG BASES: The lung bases appear improved since prior with resolution of atelectasis and ground-glass changes. LIVER, GALLBLADDER, AND BILIARY TREE: The liver is normal in size, shape, and attenuation. No focal hepatic lesion or biliary ductal dilatation is present. The gallbladder contains no radiopaque stones and there is no obvious pericholecystic inflammatory changes. High-density layering seen previously of questionable significance. If gallstones are a consideration would recommend an ultrasound. PERITONEUM: Small volume ascites is present in the setting of peritoneal dialysis with a catheter seen in the cul-de-sac. PANCREAS: Unremarkable. SPLEEN: Unremarkable. ADRENAL GLANDS: Unremarkable. KIDNEYS AND URETERS: The kidneys are small and somewhat atrophic. A nonobstructing calculus is present in the left kidney. No hydronephrosis, hydroureter, or ureteral calculi seen. 2 benign right-sided Bosniak class I renal cysts are noted which require no additional imaging or follow-up. No solid renal masses are seen. BLADDER: Unremarkable. GASTROINTESTINAL TRACT: Status post gastric bypass. Moderate stool burden is present in the colon. The small and large bowel are otherwise unremarkable. The appendix is unremarkable. ABDOMINAL WALL: No significant hernia is appreciated. LYMPH NODES: No retroperitoneal lymphadenopathy. VASCULAR: Calcific atherosclerotic changes are present in the aorta and iliofemoral vessels. There is no evidence of an abdominal aortic aneurysm. PELVIC VISCERA: Again seen is an ovoid mass in the high right pelvis with large central calcification which could represent a right ovary, unchanged. The uterus is not present. OSSEOUS STRUCTURES: Unremarkable. Minimal grade 1 anterolisthesis of L4 upon L5. CT/CT abdomen pelvis wo IV con IMPRESSION: 1. A cause for the patient's abdominal pain and spasms has not been found. 2. Improved lung bases with resolution of atelectasis and ground-glass changes. 3. Small volume ascites in the setting of peritoneal dialysis. 4. Small atrophic kidneys with nonobstructing left renal calculus. 5. Status post gastric bypass. 6. Other incidental findings as described above. Fleischner guidelines were followed. Electronically signed by: Leonardo Israel MD 11/19/2023 07:09 PM EDT RP
--- NOTE | ~2023-11-19 | CT_ITS ---
EXAMINATION: CT ABDOMEN AND PELVIS WITHOUT CONTRAST CLINICAL INFORMATION: abdominal pain; progression of free air COMPARISON: CT abdomen/pelvis 11/20/2023 TECHNIQUE: Multidetector volumetric imaging was performed from the superior aspect of the liver through the pubic symphysis. Sagittal and coronal reformatted images were obtained on the technologist's workstation. This CT examination was performed using dose optimization techniques as appropriate, variously including the following: *Automated exposure control *Adjustment of mA and/or kV according to patient size (this includes techniques or standardized protocols for targeted exams where dose is matched to indication/reason for exam; i.e. extremities or head) *Use of iterative reconstruction technique DLP: 218 mGy-cm FINDINGS: LUNG BASES: Bibasilar atelectasis. No pleural effusion. Normal size heart without pericardial effusion. PERITONEUM: Small to moderate volume pneumoperitoneum scattered throughout the abdomen, improving from prior. Small volume free fluid in the pelvis. No organized fluid collection or abscess formation. LIVER, GALLBLADDER, AND BILIARY TREE: The liver is normal in size, shape, and attenuation. No focal hepatic lesion or biliary ductal dilatation is present. The gallbladder is unremarkable with no evidence of radiopaque gallstones, gallbladder wall thickening, or obvious pericholecystic inflammatory changes. PANCREAS: Unremarkable. SPLEEN: Unremarkable. ADRENAL GLANDS: Unremarkable. KIDNEYS AND URETERS: Nonobstructing left renal midpole cortical 0.2 cm calculus. Bilateral renal atrophy. No hydronephrosis, hydroureter, or right-sided calculi seen. No perinephric stranding. BLADDER: Unremarkable. GASTROINTESTINAL TRACT: Post surgical changes status post Sae-en-Y gastric bypass. Oral contrast has progressed to the colon. The small and large bowel are nondilated. Normal contrast filled appendix. ABDOMINAL WALL: No significant hernia is appreciated. Left lower quadrant peritoneal dialysis catheter with the tip coiled appropriately in the pelvis. LYMPH NODES: Normal. VASCULAR: The aorta is nonaneurysmal with scattered atheromatous complications. PELVIC VISCERA: Status post hysterectomy. Right pelvic lesion with coarse calcification which could represent an ovary, unchanged. OSSEOUS STRUCTURES: No acute or suspicious osseous abnormality. Grade 1 anterolisthesis of L4 on L5 and hypertrophic bilateral facet arthropathy, as before. CT/CT abdomen pelvis wo IV con IMPRESSION: 1. Small to moderate volume pneumoperitoneum scattered throughout the abdomen, improving from prior. Small volume free fluid in the pelvis. No organized fluid collection or abscess formation. 2. Post surgical changes status post Sae-en-Y gastric bypass. Oral contrast has progressed to the colon. No evidence for obstruction or oral contrast leak. 3. Left lower quadrant peritoneal dialysis catheter with the tip coiled appropriately in the pelvis. Fleischner guidelines were followed. Electronically signed by: Carly Mathur DO 11/21/2023 03:30 PM EDT
--- NOTE | ~2023-11-19 | CT_ITS ---
EXAMINATION: CT ABDOMEN WITHOUT CONTRAST CLINICAL INFORMATION: Status post EGD. Evaluate for perforation. Pain. COMPARISON: Multiple priors, most recent CT abdomen/pelvis done earlier the same day. TECHNIQUE: Contiguous axial thin section helical images of the abdomen were performed without contrast. Oral contrast was administered before the examination. The data set was reformatted in the coronal and sagittal planes and reviewed on an independent workstation. This CT examination was performed using dose optimization techniques as appropriate, variously including the following: *Automated exposure control. *Adjustment of mA and/or kV according to patient size (this includes techniques or standardized protocols for targeted exams where dose is matched to indication/reason for exam; i.e. extremities or head). *Use of iterative reconstruction technique. DLP: 578 mGy-cm FINDINGS: LUNG BASES: Linear scar redemonstrated within the lingula. LIVER, GALLBLADDER, BILIARY TREE: The liver is normal in size and contour. Normal hepatic density. No focal hepatic parenchymal lesion. No intrahepatic or extrahepatic biliary ductal dilatation. The gallbladder is mildly distended. No wall thickening or adjacent inflammatory change. PANCREAS: Unremarkable. SPLEEN: Unremarkable. ADRENAL GLANDS AND KIDNEYS: Mild bilateral renal atrophy. No parenchymal lesion. No hydronephrosis or hydroureter. Vascular calcification versus nonobstructing stone within the left upper pole measuring up to 0.2 cm. BOWEL LOOPS: Postsurgical change consistent with Sae-en-Y gastric bypass. Oral contrast within the esophagus as well as extending across the gastrojejunal anastomosis. There is contrast within the left abdominal small bowel loops which are mildly prominent measuring up to 3.2 cm in greatest dimension. No extravasation of contrast. Mild wall thickening of the nondistended gastric pouch, unchanged when compared to the prior examination. No additional bowel wall thickening. No small or large bowel obstruction. Moderate air throughout the colon. PERITONEAL CAVITY: Intra-abdominal free air throughout the upper abdomen. Trace upper abdominal ascites. No organized fluid collection or abscess formation. No large upper abdominal soft tissue mass. Partially visualized peritoneal drainage catheter coiled within the pelvis. LYMPH NODES: No significant lymphadenopathy; however, evaluation is limited without IV contrast. VASCULAR: No abdominal aortic dilatation. Scattered atherosclerotic calcifications. BONES: No acute osseous abnormality. Chronic grade 1 anterolisthesis of L4 on L5 with prominent bilateral facet arthropathy. CT/CT abdomen wo IV con IMPRESSION: 1. Postsurgical change consistent with Sae-en-Y gastric bypass. Oral contrast within the esophagus as well as extending across the gastrojejunal anastomosis. No extravasation of contrast. Mildly prominent left abdominal small bowel loops measuring up to 3.2 cm in greatest dimension. No additional bowel wall thickening. No small or large bowel obstruction. Moderate air throughout the colon. 2. Intra-abdominal free air throughout the upper abdomen. Trace upper abdominal ascites. No organized fluid collection or abscess formation. 3. Additional chronic findings are unchanged. Fleischner guidelines were followed. This critical result was discussed with Dr. Gonsales at 8:39 PM on 11/20/2023 and it was ascertained that the content and urgency of the report was understood at the time of direct communication. Electronically signed by: Sheldon Portillo MD 11/20/2023 08:45 PM EDT
--- NOTE | ~2023-11-19 | CT_ITS ---
EXAMINATION: CT CHEST WITHOUT CONTRAST CLINICAL INFORMATION: Status post EGD. Evaluate for perforation. COMPARISON: Chest radiograph dated 08/19/2023. TECHNIQUE: Multidetector volumetric CT imaging of the chest was done. Axial MIP volume rendering provided. Sagittal and coronal reformatted images were obtained. This CT examination was performed using dose optimization techniques as appropriate, variously including the following: *Automated exposure control. *Adjustment of mA and/or kV according to patient size (this includes techniques or standardized protocols for targeted exams where dose is matched to indication/reason for exam; i.e. extremities or head). *Use of iterative reconstruction technique. DLP: 493 mGy-cm FINDINGS: LEAD PERFORMANCE SUPPORT ANALYST: Unremarkable. LUNGS: Irregular linear scarring within the lingula, similar when compared to the prior radiograph. No new airspace consolidation. No pulmonary nodule or mass. The central airways are patent. MEDIASTINUM: No cardiomegaly. No pericardial effusion. No thoracic aortic dilatation. Atherosclerotic calcifications. No significant superior mediastinal or hilar lymphadenopathy. Unremarkable thyroid. Oral contrast within the esophagus. No esophageal extravasation to suggest perforation. No pneumomediastinum. CORONARY ARTERY CALCIFICATION: Present. PLEURA: There is no pleural effusion. No pleural mass or thickening. AXILLA: No lymphadenopathy. UPPER ABDOMEN: Partially visualized free air beneath the diaphragm, better evaluated on the concurrent CT abdomen. OSSEOUS STRUCTURES: Unremarkable. CT/CT chest wo IV con IMPRESSION: 1. No esophageal extravasation to suggest perforation. No pneumomediastinum. 2. Irregular linear scarring within the lingula, similar when compared to the prior radiograph. No new airspace consolidation. 3. No lymphadenopathy. 4. Partially visualized free air beneath the diaphragm, better evaluated on the concurrent CT abdomen. Fleischner guidelines were followed. Electronically signed by: Sheldon Portillo MD 11/20/2023 08:32 PM EDT
[2023-11-19 08:28] VITALS: BP 169/93; PULSE 98; RESP 18; TEMP 37.2; O2SAT 100; BMI 19.4
[2023-11-19 08:52] LABS: MANUAL DIFF FLAG NO
[2023-11-19 08:53] LABS: Basophils Absolute Auto 0.1 X10*3/uL (0.0-0.2); Basophils Percent Auto 0.7 % (0-2); Eosinophils Absolute Auto 0.1 X10*3/uL (0.0-0.4); Eosinophils Percent Auto 0.8 % (0-4); Hemoglobin 10.2 g/dl (12.0-16.0); Imm Gran Abs Auto 0.03 X10*3/uL (0.00-0.03); Imm Gran Pct Auto 0.3 % (0.0-0.4); Lymphocytes Percent Auto 21.7 % (20-40); Mean Corpuscular Hemoglobin 28.8 pg (27.0-33.0); Mean Corpuscular Volume 84.7 fL (80.0-98.0); Mean Platelet Volume 9.4 fL (9.4-12.3); Monocytes Absolute Auto 0.5 X10*3/uL (0.1-1.2); Monocytes Percent Auto 5.3 % (2-11); Neutrophils Absolute Auto 6.5 x10*3/uL (2.0-8.3); Neutrophils Percent Auto 71.2 % (45-73); Platelet Count 267 X10*3/uL (160-400); Red Blood Count 3.54 X10*6/uL (4.20-5.50); Red Cell Distribution Width 15.7 % (11.0-16.0); White Blood Count 9.1 X10*3/uL (4.8-10.8)
--- NOTE | 2023-11-19 08:54 | ED.NAVMDI ---
HPI - Nausea/Vomiting/Diarrhea General Chief complaint: Nausea/Vomiting/Diarrhea Stated complaint: vomiting-diarrhea Time Seen by Provider: 11/19/23 08:49 Source: patient and EMS Mode of arrival: EMS Limitations: no limitations History of Present Illness ED Provider: Jamin Zayas PA-C HPI Narrative: 53 yo female with history of ESRD on HD M/W/F, HTN, GERD, hx gastric sleeve in 2012 s/p revision in June 2023 w/ hx bleeding marginal ulcer at the anastomosis site, who presents to the ER via EMS from her Dialysis Center for evaluation of coffee ground emesis and melanotic stools for the last 1.5 days. States she has had at least 20 episodes of dark colored vomit, started off as liquid now has some solid material. She also reports lower abdominal cramping pains, 8/10 in severity. She states she missed dialysis on Friday because she was not feeling well. She also endorses some nonradiating chest heaviness that is intermittent. No shortness a breath. No fevers or chills. She denies being on anticoagulation. She does not take any NSAIDs. She denies any alcohol use. She has been compliant with her omeprazole MD elicited complaint: nausea, vomiting, diarrhea and abdominal pain Pertinent past history: other (hx GI bleed) Onset (ago): day(s) (1.5) Description of vomiting: coffee grounds Description of diarrhea: black tarry Associated nausea: Yes Associated abdominal pain: Yes Location of pain: suprapubic Radiation: diffuse Pain consistency: intermittent Severity: moderate Quality: cramping Exacerbating factors: none Relieving factors: none Associated symptoms: chest pain, malaise, nausea/vomiting and weakness Related Data Home Medications ?Medication ?Instructions ?Recorded ?Confirmed ferrous sulfate 325 mg (65 mg 325 mg PO BID 05/11/20 08/10/23 iron) tablet,delayed release cyanocobalamin (vitamin B-12) 1,000 mcg PO DAILY 10/17/20 08/10/23 1,000 mcg tablet pyridoxine (vitamin B6) 50 mg 50 mg PO DAILY 06/06/21 08/10/23 tablet buspirone 5 mg tablet 5 mg PO TID anxiety 07/05/21 08/10/23 carvedilol 3.125 mg tablet 3.125 mg PO BID 07/05/21 08/10/23 ergocalciferol (vitamin D2) 1,250 1,250 mcg PO PLEITEZ@0900 07/05/21 08/10/23 mcg (50,000 unit) capsule (Vitamin D2) vitamin B comp no.3-folic acid 1 1 tab PO DAILY 07/05/21 08/10/23 mg-vit C 60 mg-biotin 300 mcg tablet ([facility]) midodrine 5 mg tablet 5 mg PO TID 03/25/23 08/10/23 acetaminophen 500 mg capsule 1,000 mg PO Q8H PRN Pain 08/10/23 08/10/23 (Mapap (acetaminophen)) fluticasone propionate 50 1 spray intranasal DAILY PRN 08/10/23 08/10/23 mcg/actuation nasal Allergy Symptoms spray,suspension [id number]-[id number]-[id number] 45 mg-folic 1 cap PO DAILY 08/10/23 08/10/23 acid 800 mcg-vit K 120 mcg capsule (Bariatric Multivitamins) ondansetron 4 mg disintegrating 4 mg PO Q8H PRN Nausea And Vomiting 08/10/23 08/10/23 tablet parenteral amino acid 15% no.5 15 0.5 ea IV MOWEFR@0900 08/10/23 08/10/23 % combination no.5 intravenous solution (Clinisol SF) sucralfate 1 gram tablet 1 g PO QID 08/10/23 08/10/23 Previous Rx's ?Medication ?Instructions ?Recorded cyclobenzaprine 5 mg tablet 5 mg PO BEDTIME #14 tabs 02/24/23 acetic acid 2 % ear solution 3 drp otic (ear) left Q6H 7 days 06/26/23 #15 mL furosemide 80 mg tablet 80 mg PO DAILY 90 days #90 tabs 06/26/23 gabapentin 300 mg capsule 300 mg PO TID 30 days #90 caps 06/26/23 melatonin 10 mg capsule 10 mg PO BEDTIME PRN sleep 90 days 06/26/23 #90 caps nicotine (polacrilex) 2 mg buccal 2 mg buccal Q2H PRN Nicotine 08/12/23 lozenge Cravings #100 ea omeprazole 40 mg capsule,delayed 40 mg PO BID #60 caps 08/12/23 release ondansetron 4 mg disintegrating 4 mg PO Q8H PRN nausea and 08/19/23 tablet vomiting #10 tabs citalopram 20 mg tablet 20 mg PO DAILY 90 days #90 tabs 09/16/23 thiamine HCl (vitamin B1) 100 mg 100 mg PO DAILY 90 days #90 tabs 09/27/23 tablet vitamin A 2,400 mcg capsule 2,400 mcg PO DAILY 90 days #90 caps 09/27/23 Allergies Allergy/AdvReac Type Severity Reaction Status Date / Time ibuprofen Allergy Severe Unknown Verified 11/19/23 08:33 nifedipine Allergy Intermediate hives, leg Verified 11/19/23 08:33 edema Review of Systems Review of Systems: Yes all other systems are reviewed and are negative Gastrointestinal: Gastrointestinal: Reports nausea PMFSH Past Medical History Medical History Moderate major depression ESRD on dialysis Physical exam Spondylosis without myelopathy or radiculopathy, lumbar region Spinal stenosis 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 Lumbar back pain with radiculopathy affecting left lower extremity Physical exam (~02/14/21) Peritoneal dialysis catheter in place Polyarthralgia Dyslipidemia Family history of ovarian cancer Abnormal mammogram of right breast Angina pectoris syndrome Chest pain Constipation Nephrosclerosis Renal interstitial fibrosis Obesity (BMI 30-39.9) Back pain GERD (gastroesophageal reflux disease) History of headache HTN (hypertension) Surgical History S/P arteriovenous (AV) graft placement History of sleeve gastrectomy Fistula Hx of colonoscopy Hx of hysterectomy Hx of tubal ligation History of endometrial ablation Family History Family History Father Asthma Mother Asthma Hypertension Ovarian cancer Maternal Grandfather Myocardial infarction Paternal Grandmother Stroke Social History Social History Household Members: None Housing: Apartment Do you presently have visiting nurse or other home services: Yes Alcohol intake: current Alcohol intake frequency: does not drink Alcohol type: beer Comment: Patient doesn't want bed alarm on Patient Tobacco Use Status: Never used Tobacco Tobacco use type: Cigarette Cigarettes Per Day: 2 Years Smoked: 10+ Smoked in Last 30 Days: No e-Cigarette/Vaping Use: Never Used Second Hand Smoke Exposure: No Use of substances other than those prescribed or required for medical reasons: No Advance Directives: Yes Advance Directives on File: Yes Advance Directives Date on File: 04/27/20 Do you have a plan to hurt others: No Plan Nutrition Risks: No Nutritional Risk Patient : No service: No Current occupational status: employed Cognitive needs: No Hearing needs: No Vision needs: Yes (reading glasses) Physical Exam Vital Signs: Vital Signs: Last Vital Signs Temp 98.9 F 11/19/23 08:28 Pulse 98 11/19/23 08:28 Resp 18 11/19/23 08:28 BP 169/93 H 11/19/23 08:28 Pulse Ox 100 11/19/23 08:28 O2 Del Method Room Air 11/19/23 08:28 BMI result Body Mass Index 19.4 Appearance: Alert. Oriented X3. Appears uncomfortable, lying on her left side Head: normocephalic, atraumatic. Eyes: Pupils equal, round and reactive to light. ENT: Pharynx normal. No tonsillar swelling or exudate. Neck: Normal inspection. Neck supple. CVS: Normal heart rate and rhythm. Pulses normal. Respiratory: No respiratory distress. Breath sounds normal. Abdomen: Soft with lower abdominal tenderness to deep palpation, no rebound or guarding. Normal active +BS x4. Hyperpigmented and scaly rash in the central abdomen. PD catheter in place DAMON with normal external inspection, scant stool in the rectal vault, black heme + Skin: Skin warm and dry. Normal skin color. Normal skin turgor. No rashes. Extremities: No lower extremity edema. No joint swelling. Neuro/psych: Oriented X 3. No motor deficit. No sensory deficit. CN II-XII intact. Normal speech and cognition. Medications Administered Discontinued Medications Generic Name Dose Route Start Last Admin Trade Name Freq PRN Reason Stop Dose Admin Hydromorphone HCl 1 mg 11/19/23 09:17 11/19/23 09:28 Hydromorphone Hcl 1 Mg/Ml Syringe IVPUSH 11/19/23 09:18 1 mg ONCE ONE Administration Protocol Pantoprazole Sodium 40 mg 11/19/23 08:55 11/19/23 09:09 Pantoprazole Sodium 40 Mg/10 Ml Vial IVPUSH 11/19/23 08:56 40 mg ONCE ONE Administration Medical Decision Making Medical Decision Making MDM Narrative: 53 yo female with history of ESRD on HD M/W/F, HTN, GERD, hx gastric sleeve in 2012 s/p revision in June 2023 w/ hx bleeding marginal ulcer at the anastomosis site, who presents to the ER via EMS from her Dialysis Center for evaluation of coffee ground emesis and melanotic stools for the last 1.5 days. Concern for acute upper GI bleed given her history and presentation. On examination she has heme-positive black stool in the rectal vault. She is hemodynamically stable and on room air. No evidence of volume overload. She does have some acute blood loss anemia with an H&H of 12/09 from baseline of less than a month ago. GI and Nephrology were consulted. IV PPI ordered. Will plan to admit for further management. Differential Diagnosis Differential Diagnoses: The differential diagnosis associated with the presentation includes Upper GI bleed to to recurrent bleed from marginal ulcer, duodenal ulcer, Dieulafoy's lesion, gastritis, esophagitis, low suspicion for lower GI bleed Admission/Observation Consideration of admission/observation: Escalation of care including admission/observation considered Consult Healthcare Provider Management of the patient was discussed with: Hospitalist and Maintenance Mechanic Telephone Nephrology and Gastroenterology consulted Lab Data [facility] Lab Attestation statement: I reviewed the patient's lab results. Acute anemia, decreased from prior. Elevated BUN likely due to upper GI bleed. Potassium is normal 11/19/23 08:45 11/19/23 08:45 Labs: Lab Results 11/19/23 11/19/23 Range/Units 08:45 09:11 WBC 9.1 (4.8-10.8) X10*3/uL RBC 3.54 L (4.20-5.50) X10*6/uL Hgb 10.2 L D (12.0-16.0) g/dl Hct 30.0 L D (37.0-47.0) % MCV 84.7 (80.0-98.0) fL MCH 28.8 (27.0-33.0) pg MCHC 34.0 (31.0-35.0) g/dl RDW 15.7 (11.0-16.0) % Plt Count 267 (160-400) X10*3/uL MPV 9.4 (9.4-12.3) fL Immature Gran % (Auto) 0.3 (0.0-0.4) % Neut % (Auto) 71.2 (45-73) % Lymph % (Auto) 21.7 (20-40) % [place] % (Auto) 5.3 (2-11) % Eos % (Auto) 0.8 (0-4) % Baso % (Auto) 0.7 (0-2) % Lymph # (Auto) 2.0 (1.2-4.9) X10*3/uL [place] # (Auto) 0.5 (0.1-1.2) X10*3/uL Eos # (Auto) 0.1 (0.0-0.4) X10*3/uL Baso # (Auto) 0.1 (0.0-0.2) X10*3/uL Abs Immat Gran (auto) 0.03 (0.00-0.03) X10*3/uL Absolute Neuts (auto) 6.5 (2.0-8.3) x10*3/uL Absolute Nucleated RBC 0.000 (0.0-0.012) X10*3/uL Nucleated RBC % (auto) 0.0 (0.0-0.2) /100WBC Sodium 134 L (135-145) mmol/L Potassium 4.5 (3.3-5.1) mmol/L Chloride 101 (96-108) mmol/L Carbon Dioxide 24 (22-29) mmol/L Anion Gap 14 (12-20) BUN 55 H (9-16) mg/dL Creatinine 6.54 H* (0.5-1.4) mg/dL Estim Creat Clear Calc 8.4 Estimated GFR 7 Random Glucose 93 (60-115) mg/dL Calcium 9.5 D (8.4-10.2) mg/dL Total Bilirubin 0.2 (0.0-1.0) mg/dL Direct Bilirubin < 0.2 (0.0-0.5) mg/dL AST 9 (5-31) U/L ALT 5 (0-31) U/L Alkaline Phosphatase 100 (39-117) U/L Total Protein 5.7 L (6.5-8.0) g/dL Albumin 3.1 L (3.5-5.0) g/dL Lipase 22 (8-78) U/L Stool Occult Blood POSITIVE (NEGATIVE) Blood Type O Positive Antibody Screen NEGATIVE Independent Interpretation I performed an independent interpretation of an: EKG Interpretation: ekg with normal sinus rhythm, HR 99 bpm, normal RI interval, normal QTc, no ST segment elevations or depressions Independent Historian Clinical information obtained from an independent historian. History obtained from or confirmed by: EMS External Record Review External record reviewed: Inpatient record, Outpatient record, Prior outpatient labs and Prior outpatient radiology Tests considered The following testing was considered but not selected: considered CT abd/pelvis Prescription Management I considered prescription management with: Pain Medication and Antibiotic Chronic Conditions Patient?s care impacted by: Other (ESRD on HD) Critical Care Time Critical Care Time Critical Care Time: Yes Total Critical Care Time: 42 Attestation: I have personally provided critical care time exclusive of time spent on separately billable procedures. Time includes review of lab data, radiology results, discussion with consultants, and monitoring for potential decompensation. Intervention performed as documented. Discharge Plan Discharge Clinical Impression: Acute upper gastrointestinal bleeding, Acute blood loss anemia Abdominal pain Qualifiers: Abdominal location: upper abdomen, unspecified Qualified Code(s): R10.10 - Upper abdominal pain, unspecified Patient Disposition: Admitted As Inpatient
[2023-11-19] MEDS: Pantoprazole Sodium 40 MG/10 ML VIAL IVPUSH (09:09)
[2023-11-19 09:15] LABS: Alanine Aminotransferase 5 U/L (0-31); Albumin Level 3.1 g/dL (3.5-5.0); Alkaline Phosphatase 100 U/L (39-117); Anion Gap 14 (12-20); Aspartate Amino Transferase 9 U/L (5-31); Bilirubin Direct < 0.2 mg/dL (0.0-0.5); Bilirubin Total 0.2 mg/dL (0.0-1.0); Blood Urea Nitrogen 55 mg/dL (9-16); Calcium 9.5 mg/dL (8.4-10.2); Carbon Dioxide 24 mmol/L (22-29); Chloride 101 mmol/L (96-108); Creatinine Clr Calc Pharmacy 8.4; Estimated Glomerular Filt Rate 7; Glucose Random 93 mg/dL (60-115); Lipase 22 U/L (8-78); Potassium 4.5 mmol/L (3.3-5.1); Sodium 134 mmol/L (135-145); Total Protein 5.7 g/dL (6.5-8.0)
--- NOTE | 2023-11-19 09:15 | PC.NURSE ---
a&ox4. vss and up to date aside from being hypertensive. nsr on the monitoring tech. pt presents to the ED w/ intermittent lower abd pain w/ associated coffee ground emesis and dark tarry stool x friday. pt is a dialysis pt - has fistula in [facility]. +bruit/thrill. pt currently transitioning into have peritoneal dialysis - recently had catheter placed last month. no signs of infection noted at site. pt states she attend dialysis on MWF. was last dialyzed last friday - missed friday d/t sx as they stated they were unable to dialyze her because of sx. pt rating abd pain a /10. 20gIV placed in the right AC - labs obtained in triage. medication administered per provider order. pt also verbalizing chest discomfort/sob. provider bedside assessing pt. no sob/wob noted. respirations even/unlabored. family bedside for support. plan of care ongoing. call simon placed within reach.
--- NOTE | 2023-11-19 09:20 | ECG_ITS ---
Test Reason : CHEST PAIN Blood Pressure : / mmHG Vent. Rate : 099 BPM Atrial Rate : 099 BPM P-R Int : 116 ms QRS Dur : 074 ms QT Int : 366 ms P-R-T Axes : 022 035 053 degrees QTc Int : 469 ms Normal sinus rhythm Normal ECG When compared with ECG of 31-OCT-2023 15:27, No significant change was found Referred By: Shelia Zayas Electronically Signed By:CHARLY ODELL MD
[2023-11-19 09:22] LABS: OBS Int Ctl Valid YES; OBS1 POSITIVE (NEGATIVE)
[2023-11-19] MEDS: HYDROmorphone HCl 1 MG/ML SYRINGE IVPUSH (09:28)
--- NOTE | 2023-11-19 09:29 | PC.NURSE ---
pt medicated per provider order. effectiveness pending.
--- NOTE | 2023-11-19 09:52 | P.HPHOSP_ITS ---
History of Present Illness Date of Service: 11/19/23 Chief Complaint: gi bleed 53-year-old woman with a history of end-stage renal disease on hemodialysis presented with coffee-ground emesis and melanotic stools for the last 24-48 hours. She reported having at least 20 episodes of dark-colored vomitus, lower abdominal cramping an 8/10 pain. She denied any chest pain, shortness breath, fever, chills, recent illness, sick contacts. She is not on any anticoagulation and reports not taken any NSAIDs. She denies alcohol use as well. She reports compliance with her PPI. Last dialysis was on Friday, did not have dialysis on Friday. Reported nausea, vomiting and diarrhea on Friday. She presented to dialysis today but still had GI issues and was sent to the ER for further evaluation. Creatinine 6.54, sodium 134, stool occult positive. Plan will be to admit patient for inpatient dialysis and further management of GI bleed. 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 Lumbar back pain with radiculopathy affecting left lower extremity Physical exam (~02/14/21) Peritoneal dialysis catheter in place Polyarthralgia Dyslipidemia Family history of ovarian cancer Abnormal mammogram of right breast Angina pectoris syndrome Chest pain Constipation Nephrosclerosis Renal interstitial fibrosis Obesity (BMI 30-39.9) Back pain GERD (gastroesophageal reflux disease) History of headache HTN (hypertension) Family History Father Asthma Mother Asthma Hypertension Ovarian cancer Maternal Grandfather Myocardial infarction Paternal Grandmother Stroke Surgical History S/P arteriovenous (AV) graft placement History of sleeve gastrectomy Fistula Hx of colonoscopy Hx of hysterectomy Hx of tubal ligation History of endometrial ablation Social History Household Members: None Housing: Apartment Do you presently have visiting nurse or other home services: Yes Alcohol intake: current Alcohol intake frequency: does not drink Alcohol type: beer Comment: Patient doesn't want bed alarm on Patient Tobacco Use Status: Never used Tobacco Tobacco use type: Cigarette Cigarettes Per Day: 2 Years Smoked: 10+ Smoked in Last 30 Days: No e-Cigarette/Vaping Use: Never Used Second Hand Smoke Exposure: No Use of substances other than those prescribed or required for medical reasons: No Advance Directives: Yes Advance Directives on File: Yes Advance Directives Date on File: 04/27/20 Do you have a plan to hurt others: No Plan Nutrition Risks: No Nutritional Risk Patient : No service: No Current occupational status: employed Cognitive needs: No Hearing needs: No Vision needs: Yes (reading glasses) Meds Allergies Allergy/AdvReac Type Severity Reaction Status Date / Time ibuprofen Allergy Severe Unknown Verified 11/19/23 08:33 nifedipine Allergy Intermediate hives, leg Verified 11/19/23 08:33 edema Home Medications ?Medication ?Instructions ?Recorded ?Confirmed ?Last Taken ?Type ferrous sulfate 325 mg (65 mg 325 mg PO BID 05/11/20 11/19/23 11/17/23 History iron) tablet,delayed release cyanocobalamin (vitamin B-12) 1,000 mcg PO DAILY 10/17/20 11/19/23 11/17/23 History 1,000 mcg tablet pyridoxine (vitamin B6) 50 mg 50 mg PO DAILY 06/06/21 11/19/23 11/17/23 History tablet ergocalciferol (vitamin D2) 1,250 1,250 mcg PO PLEITEZ@0900 07/05/21 11/19/23 11/16/23 History mcg (50,000 unit) capsule (Vitamin D2) midodrine 5 mg tablet 5 mg PO TID 03/25/23 11/19/23 11/17/23 History acetaminophen 500 mg capsule 1,000 mg PO Q8H PRN Pain 08/10/23 11/19/23 Unknown History (Mapap (acetaminophen)) fluticasone propionate 50 1 spray intranasal DAILY PRN 08/10/23 11/19/23 08/08/23 History mcg/actuation nasal Allergy Symptoms spray,suspension ocesrpch-lpejvihv-mfpu 45 mg-folic 1 cap PO DAILY 08/10/23 11/19/23 11/17/23 History acid 800 mcg-vit K 120 mcg capsule (Bariatric Multivitamins) parenteral amino acid 15% no.5 15 0.5 ea IV MOWEFR@0900 08/10/23 11/19/23 11/18/23 History % combination no.5 intravenous solution (Clinisol SF) sucralfate 1 gram tablet 1 g PO QID 08/10/23 11/19/23 11/17/23 History carvedilol 6.25 mg tablet 6.25 mg PO BID 11/19/23 11/19/23 11/17/23 History meclizine 25 mg tablet 25 mg PO BID 11/19/23 11/19/23 11/17/23 History pantoprazole 40 mg tablet,delayed 40 mg PO DAILY 11/19/23 11/19/23 11/17/23 History release potassium chloride 20 mEq 20 meq PO DAILY 11/19/23 11/19/23 11/17/23 History tablet,extended release Physical Exam 2 Vital Signs and Narrative: Vital Signs: Last Vital Signs Temp 98.9 F 11/19/23 08:28 Pulse 98 11/19/23 08:28 Resp 18 11/19/23 08:28 BP 169/93 H 11/19/23 08:28 Pulse Ox 100 11/19/23 08:28 O2 Del Method Room Air 11/19/23 08:28 BMI result Body Mass Index 19.4 Appearing in no acute distress head is normocephalic atraumatic eyes pupils are PERRLA sclera is anicteric mouth throat mucous membranes are intact and moist neck is supple no lymphadenopathy, no JVD noted lung sounds are clear to auscultation heart regular rate rhythm, clear S1, S2 positive bowel sounds, abdomen is soft, nontender neuro patient is alert x3, no focal deficits Left arm fistula Results Labs 11/19/23 08:45 11/19/23 08:45 Labs: Laboratory Results - last 24 hr 11/19/23 11/19/23 08:45 09:11 MCV 84.7 MCH 28.8 MCHC 34.0 RDW 15.7 Plt Count 267 MPV 9.4 Immature Gran % (Auto) 0.3 Neut % (Auto) 71.2 Lymph % (Auto) 21.7 [place] % (Auto) 5.3 Eos % (Auto) 0.8 Baso % (Auto) 0.7 Lymph # (Auto) 2.0 [place] # (Auto) 0.5 Eos # (Auto) 0.1 Baso # (Auto) 0.1 Abs Immat Gran (auto) 0.03 Absolute Neuts (auto) 6.5 Absolute Nucleated RBC 0.000 Nucleated RBC % (auto) 0.0 Anion Gap 14 Estim Creat Clear Calc 8.4 Estimated GFR 7 Random Glucose 93 Calcium 9.5 D Total Bilirubin 0.2 Direct Bilirubin < 0.2 AST 9 ALT 5 Alkaline Phosphatase 100 Total Protein 5.7 L Albumin 3.1 L Lipase 22 Stool Occult Blood POSITIVE Blood Type O Positive Antibody Screen NEGATIVE Assessment and Plan (1) Abdominal pain: Qualifiers: Abdominal location: upper abdomen, unspecified Qualified Code(s): R 10.10 - Upper abdominal pain, unspecified Status: Acute (2) Acute blood loss anemia: Status: Acute Plan 53-year-old woman with a history of end-stage renal disease and bleeding ulcer admitted with nausea vomiting and diarrhea with melanotic stools and coffee- ground emesis and missed dialysis. GI bleed with melena and coffee-ground emesis Stable H&H at this point, no need for transfusion Stool occult positive Continue PPI GI consultation NPO plan for EGD and colo tomorrow End-stage renal disease on dialysis Friday, Friday and Friday Dialysis today Continue midodrine Follows with Dr. Rider Hypertension continue carvedilol Mental health Continue home medications History of spinal stenosis and radiculopathy Continue gabapentin DVT prophylaxis Full code Quality Stroke Does the patient have a stroke diagnosis?: No VTE Prior VTE?: No VTE Risk Level:: Medical - moderate - high VTE Device Contraindication: N/A - Device Ordered VTE Drug Contraindication: Treatment Not Indicated
--- NOTE | 2023-11-19 10:22 | PC.NURSE ---
pt transported to dialysis at this time. will resume care of pt when she returns.
--- NOTE | 2023-11-19 11:52 | PC.NURSE ---
Assumed care of this patient at 1100, patient currently still in HD.
--- NOTE | 2023-11-19 12:13 | PC.NURSE ---
Troponin noted to be pending since 844 this morning, lab called, it will be 20 - 30 minutes until resulted.
[2023-11-19 12:28] LABS: Troponin-I High Sensitivity 11.5 ng/L (<3.5-17.0)
--- NOTE | 2023-11-19 15:15 | PC.NURSE ---
This RN resumed care of pt at this time, pt has completed HD, received her CT and is now in EDOverflow. Pt is a/ox4. Offers complaints of nausea at this time. call simon within reach
[2023-11-19 16:29] VITALS: RESP 20
[2023-11-19] MEDS: ondansetron HCL 4 MG/2 ML VIAL IVPUSH (16:29)
[2023-11-19] MEDS: Morphine Sulfate 2 MG/ML CARTRIDGE 1 MG IVPUSH (16:29)
[2023-11-19 16:30] VITALS: BP 120/78; PULSE 104; RESP 18; TEMP 37.4; O2SAT 99
--- NOTE | 2023-11-19 16:39 | PHA.MEDREC ---
Addendum entered by Aidee Adams RPh 11/19/23 17:00: reviewed Original Note: Pharmacy Consult ? Medication Reconciliation Pharmacy has completed the medication reconciliation. Spoke top patient to confirm med list. Patient states she is no longer taking Furosemide 80 mg, Nicotine Polacrilex 2 mg lozenges, Sevelamer carb 1,600 mg and Vitamin B complex. Patient is on dialysis Friday, Friday and Fridays. Vitamin D2 50,000 is every Friday. Patient states she IS TAKING BOTH Omeprazole 40mg bid and Pantoprazole 40 mg daily.
[2023-11-19 19:44] VITALS: BP 123/73; PULSE 99; RESP 20; TEMP 36.6; O2SAT 99
[2023-11-19 20:18] VITALS: BP 123/73; PULSE 99
[2023-11-19] MEDS: Meclizine HCl 25 MG TABLET PO (20:18)
[2023-11-19] MEDS: Sucralfate 1 GM TABLET PO (20:18)
[2023-11-19] MEDS: Ferrous Sulfate 324 MG TABLET.DR PO (20:18)
[2023-11-19] MEDS: Midodrine HCl 5 MG TABLET PO (20:18)
[2023-11-19] MEDS: carvediloL 6.25 MG TABLET PO (20:18)
[2023-11-19] MEDS: Gabapentin 300 MG CAPSULE PO (20:18)
[2023-11-20] VITALS (13 sets, daily range): BP systolic 86–155; BP diastolic 56–82; PULSE 65–82; RESP 16–20; TEMP 36.1–37.3; O2SAT 97–100
[2023-11-20] MEDS: 0.9 % Sodium Chloride Flush 3 ML SYRINGE IVFLUSH ×2 (00:10→17:45)
[2023-11-20] MEDS: Morphine Sulfate 2 MG/ML CARTRIDGE 1 MG IVPUSH ×3 (00:10→21:22)
[2023-11-20 05:06] LABS: Hematocrit 29.2 % (37.0-47.0); Hemoglobin 9.6 g/dl (12.0-16.0); Mean Corpuscular HGB Conc 32.9 g/dl (31.0-35.0); Mean Corpuscular Hemoglobin 28.5 pg (27.0-33.0); Mean Corpuscular Volume 86.6 fL (80.0-98.0); Mean Platelet Volume 10.4 fL (9.4-12.3); Platelet Count 260 X10*3/uL (160-400); Red Blood Count 3.37 X10*6/uL (4.20-5.50); Red Cell Distribution Width 15.9 % (11.0-16.0); White Blood Count 5.7 X10*3/uL (4.8-10.8)
[2023-11-20 05:26] LABS: Anion Gap 12 (12-20); Blood Urea Nitrogen 18 mg/dL (9-16); Calcium 9.6 mg/dL (8.4-10.2); Carbon Dioxide 23 mmol/L (22-29); Chloride 102 mmol/L (96-108); Creatinine Clr Calc Pharmacy 13.2; Estimated Glomerular Filt Rate 11; Glucose Random 73 mg/dL (60-115); Potassium 4.1 mmol/L (3.3-5.1); Sodium 133 mmol/L (135-145)
[2023-11-20] MEDS: Omeprazole 40 MG CAPSULE.DR PO ×2 (06:26→17:45)
--- NOTE | 2023-11-20 08:26 | PM.GICN ---
History of Present Illness Data of Consult Service Date: 11/20/23 Requesting physician: Davida Hendricks Primary Care Provider: Rozina Lang MD HPI Reason for consult: anemia 53 year old woman with hx of end-stage renal disease on hemodialysis (MWF), GI bleeding, GERD, hemorrhoids, diverticulosis, gastric sleeve surgery, s/p recent (June 2023) revision of gastric bypass at [facility] and essential hypertension who I am seeing for assessment for coffee ground emesis and melena She admits to having having at least 20 episodes of coffee ground emesis and melena, with lower abdominal cramping and 8/10 pain without radiation and worse with food.. She denies anticoagulation and NSAIDs. She reports compliance with her PPI but is an ongoing tobacco smoker -smokes 2 cigarettes daily. She had a similar presentation 09/02 with EGD revealing a toby grade III ulcer. Since admission she has not had any further melena or vomiting. Pain is less but still present. SHe had colonoscopy for screening 06/03--no polyps, diverticulosis LABS: Hgb 12.8-->10.2-->9.6 today Review of Systems Review of Systems: Constitutional : No Weight loss, No Fever, No Chills ENT/Mouth : No sore throat, No Rhinorrhea Eyes: No Swelling, No Redness Cardiovascular : No Chest Pain, No SOB, No Edema Respiratory : No Cough, No Sputum, No Wheezing Gastrointestinal : see HPI Genitourinary : NO Dysuria, No Urinary Frequency, No Hematuria, No Urgency Musculoskeletal : No joint pain, No Myalgias, No Joint Swelling Skin : No Skin Lesions, No rash Neuro : No Weakness, No Numbness, No Dizziness, No Headache Psych : No Anxiety/Panic, No Depression Heme/Lymph: No Bruising, No Lymphadenopathy Endocrine : No Polyuria, No Polydipsia All other systems reviewed and are negative. 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 Lumbar back pain with radiculopathy affecting left lower extremity Physical exam (~02/14/21) Peritoneal dialysis catheter in place Polyarthralgia Dyslipidemia Family history of ovarian cancer Abnormal mammogram of right breast Angina pectoris syndrome Chest pain Constipation Nephrosclerosis Renal interstitial fibrosis Obesity (BMI 30-39.9) Back pain GERD (gastroesophageal reflux disease) History of headache HTN (hypertension) Family History Family History Father Asthma Mother Asthma Hypertension Ovarian cancer Maternal Grandfather Myocardial infarction Paternal Grandmother Stroke Surgical History Surgical History S/P arteriovenous (AV) graft placement History of sleeve gastrectomy Fistula Hx of colonoscopy Hx of hysterectomy Hx of tubal ligation History of endometrial ablation Social History Social History Household Members: None Housing: Apartment Do you presently have visiting nurse or other home services: Yes Alcohol intake: current Alcohol intake frequency: does not drink Alcohol type: beer Comment: Patient doesn't want bed alarm on Patient Tobacco Use Status: Current someday Tobacco user Tobacco use type: Cigarette Cigarettes Per Day: 2 Years Smoked: 10+ Smoked in Last 30 Days: No e-Cigarette/Vaping Use: Never Used Second Hand Smoke Exposure: No Use of substances other than those prescribed or required for medical reasons: No Have you been hit, kicked, punched, or otherwise hurt by someone within the past year? If so, by whom?: No Are you DNR?: No Advance Directives: Yes Advance Directives Information Provided: No Advance Directives on File: Yes Advance Directives Date on File: 04/27/20 Do you have a plan to hurt others: No Plan Recently lost weight without trying: No Eating poorly because of decreased appetite: No Nutrition Risks: No Nutritional Risk Patient : No service: No Current occupational status: employed Cognitive needs: No Hearing needs: No Vision needs: Yes (reading glasses) Meds Allergies Allergy/AdvReac Type Severity Reaction Status Date / Time ibuprofen Allergy Severe Unknown Verified 11/19/23 08:33 nifedipine Allergy Intermediate hives, leg Verified 11/19/23 08:33 edema Active Medications: Current Medications Acetaminophen (Acetaminophen 325 Mg Tablet) 650 mg PO Q6H PRN PRN Reason: Pain, Mild (Pain Scale 1-3), fever or headache Calcium Carbonate (Calcium Carbonate 750 Mg Tab.Chew) 750 mg PO Q4H PRN PRN Reason: Heartburn Carvedilol (Carvedilol 6.25 Mg Tablet) 6.25 mg PO BID [facility]; Protocol Last Admin: 11/19/23 20:18 Dose: 6.25 mg Ergocalciferol (Ergocalciferol (Vitamin D2) 1,250 Mcg Capsule) 1,250 mcg PO PLEITEZ@0900 [facility] Escitalopram Oxalate (Escitalopram Oxalate 10 Mg Tablet) 10 mg PO DAILY [facility] Ferrous Sulfate (Ferrous Sulfate 324 Mg Tablet.) 324 mg PO BID [facility] Last Admin: 11/19/23 20:18 Dose: 324 mg Fluticasone Propionate (Fluticasone Propionate Nasal 16 Gm [place] [facility]) 1 spray NOSTRIL-B DAILY PRN PRN Reason: Allergy Symptoms Gabapentin (Gabapentin 300 Mg Capsule) 300 mg PO TID [facility] Last Admin: 11/19/23 20:18 Dose: 300 mg Magnesium Hydroxide (Milk Of Magnesia 30 Ml Oral.Susp) 30 ml PO DAILY PRN PRN Reason: Constipation Meclizine HCl (Meclizine Hcl 25 Mg Tablet) 25 mg PO BID [facility] Last Admin: 11/19/23 20:18 Dose: 25 mg Melatonin (Melatonin 3 Mg Tablet) 6 mg PO BEDTIME PRN PRN Reason: Insomnia Midodrine (Midodrine Hcl 5 Mg Tablet) 5 mg PO TID [facility] Last Admin: 11/19/23 20:18 Dose: 5 mg Morphine Sulfate (Morphine Sulfate 2 Mg/Ml Cartridge) 1 mg IVPUSH Q4H PRN; Protocol PRN Reason: Pain, Severe (Pain Scale 7-10) Last Admin: 11/20/23 00:10 Dose: 1 mg Omeprazole (Omeprazole 40 Mg Capsule.) 40 mg PO BID@0630,1630 [facility] Last Admin: 11/20/23 06:26 Dose: 40 mg Ondansetron HCl (Ondansetron Hcl 4 Mg/2 Ml Vial) 4 mg IVPUSH Q8H PRN PRN Reason: Nausea and Vomiting Last Admin: 11/19/23 16:29 Dose: 4 mg Potassium Chloride (Potassium Chloride Er 20 Meq Tab.Er.Prt) 20 meq PO DAILY [facility] Pyridoxine HCl (Pyridoxine Hcl (Vitamin B6) 50 Mg Tablet) 50 mg PO DAILY [facility] Sodium Chloride (0.9 % Sodium Chloride Flush 3 Ml Syringe) 3 ml IVFLUSH QSHIFT [facility] Last Admin: 11/20/23 00:10 Dose: 3 ml Sucralfate (Sucralfate 1 Gm Tablet) 1 gm PO QID [facility] Last Admin: 11/19/23 20:18 Dose: 1 gm Thiamine HCl (Thiamine Hcl 100 Mg Tablet) 100 mg PO DAILY [facility] Home Medications ?Medication ?Instructions ?Recorded ?Confirmed ?Last Taken ?Type ferrous sulfate 325 mg (65 mg 325 mg PO BID 05/11/20 11/19/23 11/17/23 History iron) tablet,delayed release cyanocobalamin (vitamin B-12) 1,000 mcg PO DAILY 10/17/20 11/19/23 11/17/23 History 1,000 mcg tablet pyridoxine (vitamin B6) 50 mg 50 mg PO DAILY 06/06/21 11/19/23 11/17/23 History tablet ergocalciferol (vitamin D2) 1,250 1,250 mcg PO PLEITEZ@0907/05/21 11/19/23 11/16/23 History mcg (50,000 unit) capsule (Vitamin D2) midodrine 5 mg tablet 5 mg PO TID 03/25/23 11/19/23 11/17/23 History acetaminophen 500 mg capsule 1,000 mg PO Q8H PRN Pain 08/10/23 11/19/23 Unknown History (Mapap (acetaminophen)) fluticasone propionate 50 1 spray intranasal DAILY PRN 08/10/23 11/19/23 08/08/23 History mcg/actuation nasal Allergy Symptoms spray,suspension [id number] 45 mg-folic 1 cap PO DAILY 08/10/23 11/19/23 11/17/23 History acid 800 mcg-vit K 120 mcg capsule (Bariatric Multivitamins) parenteral amino acid 15% no.5 15 0.5 ea IV MOWEFR@0908/10/23 11/19/23 11/18/23 History % combination no.5 intravenous solution (Clinisol SF) sucralfate 1 gram tablet 1 g PO QID 08/10/23 11/19/23 11/17/23 History carvedilol 6.25 mg tablet 6.25 mg PO BID 11/19/23 11/19/23 11/17/23 History meclizine 25 mg tablet 25 mg PO BID 11/19/23 11/19/23 11/17/23 History pantoprazole 40 mg tablet,delayed 40 mg PO DAILY 11/19/23 11/19/23 11/17/23 History release potassium chloride 20 mEq 20 meq PO DAILY 11/19/23 11/19/23 11/17/23 History tablet,extended release Physical Exam Vital Signs: Vital Signs: Last Vital Signs Temp 97.7 F 11/20/23 07:22 Pulse 70 11/20/23 07:22 Resp 16 11/20/23 07:22 BP 111/65 11/20/23 07:22 Pulse Ox 97 11/20/23 07:22 O2 Del Method Room Air 11/20/23 07:22 BMI result Body Mass Index 19.4 EXAM: GENERAL: The patient is frail VITAL SIGNS:see workflow HEENT: Nonicteric sclerae, PERRLA, EOMI. Oropharynx clear. Moist mucous membranes. Conjunctivae appear well perfused. No thyroid mass. CHEST: Chest wall is nontender. HEART: Regular rate and rhythm without murmurs. LUNGS: Clear to auscultation bilaterally. ABDOMEN: Soft, positive bowel sounds, tender mid abdomen, epigastric, no organomegaly.no flank tenderness SKIN: No rash, no excessive bruising, petechiae, or purpura. NEUROLOGIC: Cranial nerves II-XII intact without motor/sensory deficit. Psych: normal affect Results Labs 11/20/23 04:08 11/20/23 04:08 Labs: Short CBC 11/19/23 11/20/23 Range/Units 08:45 04:08 WBC 9.1 5.7 (4.8-10.8) X10*3/uL Hgb 10.2 L D 9.6 L (12.0-16.0) g/dl Hct 30.0 L D 29.2 L (37.0-47.0) % Plt Count 267 260 (160-400) X10*3/uL BMP 11/19/23 11/20/23 08:45 04:08 Sodium 134 L 133 L Potassium 4.5 4.1 Chloride 101 102 Carbon Dioxide 24 23 BUN 55 H 18 H Creatinine 6.54 H* 4.16 H* Calcium 9.5 D 9.6 Liver Function 11/19/23 Range/Units 08:45 Total Bilirubin 0.2 (0.0-1.0) mg/dL Direct Bilirubin < 0.2 (0.0-0.5) mg/dL AST 9 (5-31) U/L ALT 5 (0-31) U/L Alkaline Phosphatase 100 (39-117) U/L Albumin 3.1 L (3.5-5.0) g/dL Imaging CT scan - abdomen: Attestation: I personally reviewed and interpreted this imaging study as follows: (atherosclerosis, atrophic kidneys, gastric bypass noted) Assessment and Plan (1) Acute blood loss anemia: Status: Acute Plan 1/ Abdominal pain with melena, concern bleeding from prior ulcer, may be worse due to atherosclerosis and ongoing smoking use PLAN: 1/ EGD today for further assessment 2/ cont with PPI 3/ transfuse to keep HGB 8-9 g/dl Procedures Date of Service Date of Service: 11/20/23
[2023-11-20] MEDS: Gabapentin 300 MG CAPSULE PO (09:34)
[2023-11-20] MEDS: Meclizine HCl 25 MG TABLET PO (09:34)
[2023-11-20] MEDS: Ferrous Sulfate 324 MG TABLET.DR PO (09:35)
[2023-11-20] MEDS: Escitalopram Oxalate 10 MG TABLET PO (09:35)
[2023-11-20] MEDS: carvediloL 6.25 MG TABLET PO (09:35)
[2023-11-20] MEDS: Sucralfate 1 GM TABLET PO ×2 (09:35→17:45)
[2023-11-20] MEDS: Midodrine HCl 5 MG TABLET PO (09:35)
[2023-11-20] MEDS: Potassium Chloride ER 20 MEQ TAB.ER.PRT PO (09:35)
[2023-11-20] MEDS: Pyridoxine HCl (Vitamin B6) 50 MG TABLET PO (09:35)
[2023-11-20] MEDS: Thiamine HCL 100 MG TABLET PO (09:35)
--- NOTE | 2023-11-20 11:56 | PC.NURSE ---
Pt off the unit to endoscopy with wildland fire operations specialist.
[2023-11-20] MEDS: 0.9 % Sodium Chloride 1,000 ML 80 ML IVCONT (12:27)
--- NOTE | 2023-11-20 12:27 | P.CONAN_ITS ---
HPI - Anesthesia Eval Consult details Narrative: for endo, s/p dialysis friday [facility] Active Problems Active Problems: All Active Problems Abdominal pain (Acute) Acute blood loss anemia (Acute) Anemia due to GI blood loss (Acute) Syncope (Acute) Schatzki's ring (Acute) Marginal ulcer (Acute) Gastritis (Acute) Esophagitis (Acute) End stage chronic kidney disease (Acute) Severe anemia (Acute) Acute upper gastrointestinal bleeding (Acute) Upper GI bleeding (Acute) Idiopathic hypotension (Acute) ESRD on dialysis (Acute) Moderate major depression (Acute) Systolic murmur (Acute) Malnutrition (Acute) Diarrhea (Acute) Pre-op examination (Acute) Non-cardiac chest pain (Acute) Polyp of right nasal cavity (Acute) Numbness (Acute) Palpitations (Acute) Urinary and fecal incontinence (Acute) Anxiety and depression (Acute) Chronic low back pain (Acute) Fatigue (Acute) Nasal polyp, benign (Acute) Anxiety and depression (Acute) LLQ abdominal pain (Acute) Tubular adenoma of colon (Acute) Anxiety (Acute) Chronic renal insufficiency (Acute) History of sleeve gastrectomy (Acute) Spinal stenosis (Acute) 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 (Acute) Lumbar back pain with radiculopathy affecting left lower extremity (Acute) GERD (gastroesophageal reflux disease) (Acute) Polyarthralgia (Acute) Dyslipidemia (Acute) Family history of ovarian cancer (Acute) Abnormal mammogram of right breast (Acute) Chest pain (Acute) Obesity (BMI 30-39.9) (Acute) HTN (hypertension) (Acute) Past Medical History Medical History Moderate major depression ESRD on dialysis Physical exam Spondylosis without myelopathy or radiculopathy, lumbar region Spinal stenosis 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 Lumbar back pain with radiculopathy affecting left lower extremity Physical exam (~02/14/21) Peritoneal dialysis catheter in place Polyarthralgia Dyslipidemia Family history of ovarian cancer Abnormal mammogram of right breast Angina pectoris syndrome Chest pain Constipation Nephrosclerosis Renal interstitial fibrosis Obesity (BMI 30-39.9) Back pain GERD (gastroesophageal reflux disease) History of headache HTN (hypertension) Family History Family History Father Asthma Mother Asthma Hypertension Ovarian cancer Maternal Grandfather Myocardial infarction Paternal Grandmother Stroke Family history of problems with anesthesia: No Surgical History Surgical History S/P arteriovenous (AV) graft placement History of sleeve gastrectomy Fistula Hx of colonoscopy Hx of hysterectomy Hx of tubal ligation History of endometrial ablation History of Problems with Anesthesia: No Social History Social History Household Members: None Housing: Apartment Do you presently have visiting nurse or other home services: Yes Alcohol intake: current Alcohol intake frequency: does not drink Alcohol type: beer Comment: Patient doesn't want bed alarm on Patient Tobacco Use Status: Current someday Tobacco user Tobacco use type: Cigarette Cigarettes Per Day: 2 Years Smoked: 10+ Smoked in Last 30 Days: No e-Cigarette/Vaping Use: Never Used Second Hand Smoke Exposure: No Use of substances other than those prescribed or required for medical reasons: No Have you been hit, kicked, punched, or otherwise hurt by someone within the past year? If so, by whom?: No Are you DNR?: No Advance Directives: Yes Advance Directives Information Provided: No Advance Directives on File: Yes Advance Directives Date on File: 04/27/20 Do you have a plan to hurt others: No Plan Recently lost weight without trying: No Eating poorly because of decreased appetite: No Nutrition Risks: No Nutritional Risk Patient : No service: No Current occupational status: employed Cognitive needs: No Hearing needs: No Vision needs: Yes (reading glasses) Meds Allergies Allergy/AdvReac Type Severity Reaction Status Date / Time ibuprofen Allergy Severe Unknown Verified 11/19/23 08:33 nifedipine Allergy Intermediate hives, leg Verified 11/19/23 08:33 edema Active Medications: Current Medications Acetaminophen (Acetaminophen 325 Mg Tablet) 650 mg PO Q6H PRN PRN Reason: Pain, Mild (Pain Scale 1-3), fever or headache Calcium Carbonate (Calcium Carbonate 750 Mg Tab.Chew) 750 mg PO Q4H PRN PRN Reason: Heartburn Carvedilol (Carvedilol 6.25 Mg Tablet) 6.25 mg PO BID [facility]; Protocol Last Admin: 11/20/23 09:35 Dose: 6.25 mg Ergocalciferol (Ergocalciferol (Vitamin D2) 1,250 Mcg Capsule) 1,250 mcg PO PLEITEZ@0900 [facility] Escitalopram Oxalate (Escitalopram Oxalate 10 Mg Tablet) 10 mg PO DAILY [facility] Last Admin: 11/20/23 09:35 Dose: 10 mg Ferrous Sulfate (Ferrous Sulfate 324 Mg Tablet.) 324 mg PO BID [facility] Last Admin: 11/20/23 09:35 Dose: 324 mg Fluticasone Propionate (Fluticasone Propionate Nasal 16 Gm [place]) 1 spray NOSTRIL-B DAILY PRN PRN Reason: Allergy Symptoms Gabapentin (Gabapentin 300 Mg Capsule) 300 mg PO TID [facility] Last Admin: 11/20/23 09:34 Dose: 300 mg Sodium Chloride (Ns) 1,000 mls @ 80 mls/hr IVCONT .[id number] [facility] Last Admin: 11/20/23 12:27 Dose: 80 mls/hr Magnesium Hydroxide (Milk Of Magnesia 30 Ml Oral.Susp) 30 ml PO DAILY PRN PRN Reason: Constipation Meclizine HCl (Meclizine Hcl 25 Mg Tablet) 25 mg PO BID [facility] Last Admin: 11/20/23 09:34 Dose: 25 mg Melatonin (Melatonin 3 Mg Tablet) 6 mg PO BEDTIME PRN PRN Reason: Insomnia Midodrine (Midodrine Hcl 5 Mg Tablet) 5 mg PO TID [facility] Last Admin: 11/20/23 09:35 Dose: 5 mg Morphine Sulfate (Morphine Sulfate 2 Mg/Ml Cartridge) 1 mg IVPUSH Q4H PRN; Protocol PRN Reason: Pain, Severe (Pain Scale 7-10) Last Admin: 11/20/23 00:10 Dose: 1 mg Omeprazole (Omeprazole 40 Mg Capsule.) 40 mg PO BID@0630,1630 [facility] Last Admin: 11/20/23 06:26 Dose: 40 mg Ondansetron HCl (Ondansetron Hcl 4 Mg/2 Ml Vial) 4 mg IVPUSH Q8H PRN PRN Reason: Nausea and Vomiting Last Admin: 11/19/23 16:29 Dose: 4 mg Potassium Chloride (Potassium Chloride Er 20 Meq Tab.Er.Prt) 20 meq PO DAILY [facility] Last Admin: 11/20/23 09:35 Dose: 20 meq Pyridoxine HCl (Pyridoxine Hcl (Vitamin B6) 50 Mg Tablet) 50 mg PO DAILY [facility] Last Admin: 11/20/23 09:35 Dose: 50 mg Sodium Chloride (0.9 % Sodium Chloride Flush 3 Ml Syringe) 3 ml IVFLUSH QSHIFT [facility] Last Admin: 11/20/23 09:00 Dose: Not Given Sucralfate (Sucralfate 1 Gm Tablet) 1 gm PO QID [facility] Last Admin: 11/20/23 09:35 Dose: 1 gm Thiamine HCl (Thiamine Hcl 100 Mg Tablet) 100 mg PO DAILY [facility] Last Admin: 11/20/23 09:35 Dose: 100 mg Home Medications ?Medication ?Instructions ?Recorded ?Confirmed ?Last Taken ?Type ferrous sulfate 325 mg (65 mg 325 mg PO BID 05/11/20 11/19/23 11/17/23 History iron) tablet,delayed release cyanocobalamin (vitamin B-12) 1,000 mcg PO DAILY 10/17/20 11/19/23 11/17/23 History 1,000 mcg tablet pyridoxine (vitamin B6) 50 mg 50 mg PO DAILY 06/06/21 11/19/23 11/17/23 History tablet ergocalciferol (vitamin D2) 1,250 1,250 mcg PO PLEITEZ@0900 07/05/21 11/19/23 11/16/23 History mcg (50,000 unit) capsule (Vitamin D2) midodrine 5 mg tablet 5 mg PO TID 03/25/23 11/19/23 11/17/23 History acetaminophen 500 mg capsule 1,000 mg PO Q8H PRN Pain 08/10/23 11/19/23 Unknown History (Mapap (acetaminophen)) fluticasone propionate 50 1 spray intranasal DAILY PRN 08/10/23 11/19/23 08/08/23 History mcg/actuation nasal Allergy Symptoms spray,suspension [id number] 45 mg-folic 1 cap PO DAILY 08/10/23 11/19/23 11/17/23 History acid 800 mcg-vit K 120 mcg capsule (Bariatric Multivitamins) parenteral amino acid 15% no.5 15 0.5 ea IV MOWEFR@0900 08/10/23 11/19/23 11/18/23 History % combination no.5 intravenous solution (Clinisol SF) sucralfate 1 gram tablet 1 g PO QID 06/11/19/23 11/17/23 History carvedilol 6.25 mg tablet 6.25 mg PO BID 11/19/23 11/19/23 11/17/23 History meclizine 25 mg tablet 25 mg PO BID 11/19/23 11/19/23 11/17/23 History pantoprazole 40 mg tablet,delayed 40 mg PO DAILY 11/19/23 11/19/23 11/17/23 History release potassium chloride 20 mEq 20 meq PO DAILY 11/19/23 11/19/23 11/17/23 History tablet,extended release Exam Height,Weight and Vital Signs: Height 5 ft 5 in Weight 53 kg Last Vital Signs Temp 97.9 F 11/20/23 12:12 Pulse 65 11/20/23 12:12 Resp 16 11/20/23 12:12 BP 86/59 L 11/20/23 12:12 Pulse Ox 97 11/20/23 12:12 O2 Del Method Room Air 11/20/23 12:12 Pertinent Lab Results Pertinent Lab Results: Laboratory Tests 11/19/23 11/19/23 11/20/23 08:45 09:11 04:08 WBC 9.1 5.7 RBC 3.54 L 3.37 L Hgb 10.2 L D 9.6 L Hct 30.0 L D 29.2 L MCV 84.7 86.6 MCH 28.8 28.5 MCHC 34.0 32.9 RDW 15.7 15.9 Plt Count 267 260 MPV 9.4 10.4 Immature Gran % (Auto) 0.3 Neut % (Auto) 71.2 Lymph % (Auto) 21.7 [place] % (Auto) 5.3 Eos % (Auto) 0.8 Baso % (Auto) 0.7 Lymph # (Auto) 2.0 [place] # (Auto) 0.5 Eos # (Auto) 0.1 Baso # (Auto) 0.1 Abs Immat Gran (auto) 0.03 Absolute Neuts (auto) 6.5 Absolute Nucleated RBC 0.000 0.000 Nucleated RBC % (auto) 0.0 0.0 Sodium 134 L 133 L Potassium 4.5 4.1 Chloride 101 102 Carbon Dioxide 24 23 Anion Gap 14 12 BUN 55 H 18 H Creatinine 6.54 H* 4.16 H* Estim Creat Clear Calc 8.4 13.2 Estimated GFR 7 11 Random Glucose 93 73 Calcium 9.5 D 9.6 Total Bilirubin 0.2 Direct Bilirubin < 0.2 AST 9 ALT 5 Alkaline Phosphatase 100 Troponin I High Sens 11.5 D Total Protein 5.7 L Albumin 3.1 L Lipase 22 Stool Occult Blood POSITIVE Blood Type O Positive Antibody Screen NEGATIVE Airway Mallampati Class: II TM Dist: >3cm Neck ROM: Full Heart: rrr Lungs: cta Assessment and Plan Assessment Anesthesia Assessment: Anesthesia Plan Discussed Final Anesthetic Review Family History of Problems with Anesthesia: No History of Problems with Anesthesia: No NPO: Yes ASA Class: III Final Preanesthetic Review: No Changes in Pt Med Stat, Meds/Allgs Chart Reviewed, Consent Obtained/Reviewed and Anes Risks/Benef Reviewed Patient Risk: Intermediate Procedure Risk: Low Anesthetic Plan Anesthetic Plan: MAC: Disposition: Standard PACU
--- NOTE | 2023-11-20 13:13 | MHC.CM.PN ---
Addendum entered by Fe Rose 11/21/23 08:35: YUE ATTEMPTED TO MEET WITH PT WHO WAS LEAVING THE UNIT FOR A CT AND HD CM TO REVISIT Original Note: YUE ATTEMPTED TO MEET WITH PT WHO WAS IN [facility] CM WILL RETURN
--- NOTE | 2023-11-20 14:09 | MHC.SHP ---
Pre-Procedural Eval Section A - 24 Hr Update-Section A only Date of Service: 11/20/23 The patient is an INPATIENT: Yes The patient has been examined within 24 hours of the surgical procedure. The History & Physical has been completed within 30 days and I have reviewed it.: Yes Section B - Complete if H&P > 30 days Chief Complaint: GI BLEED Allergies: Allergies Allergy/AdvReac Type Severity Reaction Status Date / Time ibuprofen Allergy Severe Unknown Verified 11/19/23 08:33 nifedipine Allergy Intermediate hives, leg Verified 11/19/23 08:33 edema Plan Diagnosis/Plan: Unchanged I have reviewed the history and physical and performed a pertinent physical examination on my patient. No changes have occurred unless specified. Time Spent With Patient Time: Total time managing care of this patient today ____ minutes.
--- NOTE | 2023-11-20 14:27 | P.PNIM_ITS ---
Subjective Subjective Date of Service: 11/20/23 Interval History: Seen and examined this morning Follow-up for GI bleeding Patient reports black stools and coffee-ground emesis starting on Friday. None so far this morning. Denies the use of NSAIDs or alcohol Reporting intermittent lower abdominal cramping pain Review of Systems Review of Systems: Yes all other systems are reviewed and are negative Constitutional Constitutional: Denies chills and Denies fever(s) Cardiovascular Cardiovascular: Denies chest pain, Denies palpitations and Denies dyspnea Respiratory Respiratory: Denies cough and Denies dyspnea Gastrointestinal Gastrointestinal: Reports abdominal pain and Denies nausea Endocrine Endocrine: Denies palpitations Physical Exam 2 Vital Signs: Vital Signs: Last Vital Signs Temp 97.9 F 11/20/23 12:12 Pulse 65 11/20/23 12:12 Resp 16 11/20/23 12:12 BP 86/59 L 11/20/23 12:12 Pulse Ox 97 11/20/23 12:12 O2 Del Method Room Air 11/20/23 12:12 BMI result Body Mass Index 19.4 Const: General: comfortable, no acute distress, alert and awake Nutritional Appearance: thin Orientation/consciousness: patient oriented x3 Resp: Effort & Inspection: normal respiratory effort, able to speak in complete sentences, no respiratory distress and no use of accessory muscles Cardio: Rate: regular rate GI: Other: Peritoneal dialysis catheter present left lower quadrant Inspection: No distended Palpation (GI): Soft to palpation Skin: Other: incision site surrounding with itchy rash Neuro: General: patient oriented x3, moves all extremities and CN's II-XI intact bilaterally Extrem: Other: LUE AV fistula General: Yes no pedal edema Objective Data Active Medications Acetaminophen (Acetaminophen 325 Mg Tablet) 650 mg PO Q6H PRN PRN Reason: Pain, Mild (Pain Scale 1-3), fever or headache Calcium Carbonate (Calcium Carbonate 750 Mg Tab.Chew) 750 mg PO Q4H PRN PRN Reason: Heartburn Carvedilol (Carvedilol 6.25 Mg Tablet) 6.25 mg PO BID [facility]; Protocol Last Admin: 11/20/23 09:35 Dose: 6.25 mg Documented By: SULLY Ergocalciferol (Ergocalciferol (Vitamin D2) 1,250 Mcg Capsule) 1,250 mcg PO PLEITEZ@0900 [facility] Escitalopram Oxalate (Escitalopram Oxalate 10 Mg Tablet) 10 mg PO DAILY [facility] Last Admin: 11/20/23 09:35 Dose: 10 mg Documented By: SULLY Ferrous Sulfate (Ferrous Sulfate 324 Mg Tablet.) 324 mg PO BID [facility] Last Admin: 11/20/23 09:35 Dose: 324 mg Documented By: SULLY Fluticasone Propionate (Fluticasone Propionate Nasal 16 Gm [place]) 1 spray NOSTRIL-B DAILY PRN PRN Reason: Allergy Symptoms Gabapentin (Gabapentin 300 Mg Capsule) 300 mg PO TID [facility] Last Admin: 11/20/23 09:34 Dose: 300 mg Documented By: SULLY Sodium Chloride (Ns) 1,000 mls @ 80 mls/hr IVCONT .[id number] [facility] Last Admin: 11/20/23 12:27 Dose: 80 mls/hr Documented By: DARA Magnesium Hydroxide (Milk Of Magnesia 30 Ml Oral.Susp) 30 ml PO DAILY PRN PRN Reason: Constipation Meclizine HCl (Meclizine Hcl 25 Mg Tablet) 25 mg PO BID [facility] Last Admin: 11/20/23 09:34 Dose: 25 mg Documented By: SULLY Melatonin (Melatonin 3 Mg Tablet) 6 mg PO BEDTIME PRN PRN Reason: Insomnia Midodrine (Midodrine Hcl 5 Mg Tablet) 5 mg PO TID [facility] Last Admin: 11/20/23 09:35 Dose: 5 mg Documented By: SULLY Morphine Sulfate (Morphine Sulfate 2 Mg/Ml Cartridge) 1 mg IVPUSH Q4H PRN; Protocol PRN Reason: Pain, Severe (Pain Scale 7-10) Last Admin: 11/20/23 00:10 Dose: 1 mg Documented By: ANGELA Naloxone HCl (Naloxone Hcl 0.4 Mg/Ml Vial) 0.04 mg IVPUSH Q5M PRN PRN Reason: Excessive sedation or RR < 8 Omeprazole (Omeprazole 40 Mg Capsule.) 40 mg PO BID@0630,1630 [facility] Last Admin: 11/20/23 06:26 Dose: 40 mg Documented By: ANGELA Ondansetron HCl (Ondansetron Hcl 4 Mg/2 Ml Vial) 4 mg IVPUSH Q8H PRN PRN Reason: Nausea and Vomiting Last Admin: 11/19/23 16:29 Dose: 4 mg Documented By: RISHABH Potassium Chloride (Potassium Chloride Er 20 Meq Tab.Er.Prt) 20 meq PO DAILY [facility] Last Admin: 11/20/23 09:35 Dose: 20 meq Documented By: SULLY Pyridoxine HCl (Pyridoxine Hcl (Vitamin B6) 50 Mg Tablet) 50 mg PO DAILY [facility] Last Admin: 11/20/23 09:35 Dose: 50 mg Documented By: SULLY Sodium Chloride (0.9 % Sodium Chloride Flush 3 Ml Syringe) 3 ml IVFLUSH QSHIFT [facility] Last Admin: 11/20/23 09:00 Dose: Not Given Documented By: SULLY Non-Admin Reason: Med Not Available Sucralfate (Sucralfate 1 Gm Tablet) 1 gm PO QID [facility] Last Admin: 11/20/23 14:04 Dose: Not Given Documented By: SULLY Non-Admin Reason: Off Unit: Surgery Thiamine HCl (Thiamine Hcl 100 Mg Tablet) 100 mg PO DAILY [facility] Last Admin: 11/20/23 09:35 Dose: 100 mg Documented By: SULLY Labs 11/20/23 04:08 11/20/23 04:08 Labs: Laboratory Results - last 24 hr 11/20/23 04:08 MCV 86.6 MCH 28.5 MCHC 32.9 RDW 15.9 Plt Count 260 MPV 10.4 Absolute Nucleated RBC 0.000 Nucleated RBC % (auto) 0.0 Anion Gap 12 Estim Creat Clear Calc 13.2 Estimated GFR 11 Random Glucose 73 Calcium 9.6 Assessment and Plan (1) Anemia due to GI blood loss: Status: Acute Plan 53-year-old woman with a history of end-stage renal disease and bleeding ulcer admitted with nausea vomiting and diarrhea with melanotic stools and coffee- ground emesis and missed dialysis. Acute GI bleed with melena and coffee-ground emesis No further bleeding per patient H/H trending down but remains above transfusion threshold Continue PPI GI -plan for EGD and colo today End-stage renal disease on dialysis Friday, Friday and Friday s/p HD 11/18 Continue midodrine Follows with Dr. Rider ? on K replacement daily ?due to history of gastric bypass with chronic malabsorption Hypertension continue carvedilol Mental health Continue home medications History of spinal stenosis and radiculopathy Continue gabapentin DVT prophylaxis-mechanical devices due to GI bleeding Full code Patient requires ongoing inpatient stay for further management of GI bleeding including plan for EGD and colonoscopy, specialist evaluation Quality Stroke Does the patient have a stroke diagnosis?: No VTE Prior VTE?: No VTE Risk Level:: Medical - moderate - high VTE Device Contraindication: N/A - Device Ordered VTE Drug Contraindication: Treatment Not Indicated
--- NOTE | 2023-11-20 14:59 | W.PM.OPN ---
Operative Note Operative Note Date of Service: 11/20/23 Narrative: Procedure Description: EGD Indication: Anemia Anesthesia: MAC FLEXIBLE TRANSORAL UPPER GASTROINTESTINAL ENDOSCOPY UPPER ENDOSCOPY Consent: Indications for the procedure and potential complications of bleeding, perforation, reaction to medications and missed diagnosis were discussed with the patient and informed consent was obtained. Instrument: Olympus GIF H 190 J mid size upper endoscope Monitoring: Vital signs and clinical assessment, continuous EKG monitoring, Pulse oximetry, Carbon Dioxide monitoring and blood pressure monitoring were done throughout the procedure. Procedure: The patient was placed in the left lateral decubitis position and pre-procedure medications were administered and a bite block was placed. The endoscope was inserted into the mouth and advanced under direct vision to the third part of duodenum. A careful inspection was made as the upper endoscope was withdrawn including a retroflexed examination of the proximal stomach; Findings and interventions are described below. Findings: Larynx:normal Esophagus: GE junction at 38 cm, diaphragm hiatus at 38 cm, tear noted at GEJ with oozing, x 2 clips applied and hemospray Stomach pouch: patchy erythema with edema, severe . Jejunum: x 3 small ulcers noted 4-6 mm , one had a pigmented spot and clipped x2, another stellate shaped ulcer with edema measuring 10 mm and pigmented spot, x 3 clips applied with hemopsray. A superficial ulcer close to the anastomosis with mild oozing around the edges, sprayed with hemospray. Intervention: clips and hemospray Impression/Findings: gastritis mallor Dixon tear marginal ulcers schatzki ring PLAN: Continue with high dose PO PPI (use capsule, open it and mix with apple sauce otherwise absorption will be suboptimal) and add carafate 10 ml BID--ensure compliance GERD precautions smoking cessation stronlgy encouraged f/u with GI office
[2023-11-20] MEDS: HYDROmorphone HCl 0.5 MG/0.5 ML SYRINGE IVPUSH (16:17)
--- NOTE | 2023-11-20 17:49 | PM.CNNEP ---
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 Lumbar back pain with radiculopathy affecting left lower extremity Physical exam (~02/14/21) Peritoneal dialysis catheter in place Polyarthralgia Dyslipidemia Family history of ovarian cancer Abnormal mammogram of right breast Angina pectoris syndrome Chest pain Constipation Nephrosclerosis Renal interstitial fibrosis Obesity (BMI 30-39.9) Back pain GERD (gastroesophageal reflux disease) History of headache HTN (hypertension) Family History Family History Father Asthma Mother Asthma Hypertension Ovarian cancer Maternal Grandfather Myocardial infarction Paternal Grandmother Stroke Surgical History Surgical History S/P arteriovenous (AV) graft placement History of sleeve gastrectomy Fistula Hx of colonoscopy Hx of hysterectomy Hx of tubal ligation History of endometrial ablation Social History Social History Household Members: None Housing: Apartment Do you presently have visiting nurse or other home services: No Alcohol intake: current Alcohol intake frequency: does not drink Alcohol type: beer Comment: Patient doesn't want bed alarm on Patient Tobacco Use Status: Current someday Tobacco user Tobacco use type: Cigarette Cigarettes Per Day: 2 Years Smoked: 10+ e-Cigarette/Vaping Use: Currently Using Second Hand Smoke Exposure: No Advance Directives Date on File: 04/27/20 service: No Current occupational status: employed Cognitive needs: No Hearing needs: No Vision needs: Yes (reading glasses) Meds Allergies Allergy/AdvReac Type Severity Reaction Status Date / Time ibuprofen Allergy Severe Unknown Verified 11/19/23 08:33 nifedipine Allergy Intermediate hives, leg Verified 11/19/23 08:33 edema Active Medications: Current Medications Acetaminophen (Acetaminophen 325 Mg Tablet) 650 mg PO Q6H PRN PRN Reason: Pain, Mild (Pain Scale 1-3), fever or headache Calamine (Calamine/Zinc Oxide Lotion 177 Ml Bottle) 1 appl TOPICAL Q3H PRN; Protocol PRN Reason: Itching Calcium Carbonate (Calcium Carbonate 750 Mg Tab.Chew) 750 mg PO Q4H PRN PRN Reason: Heartburn Carvedilol (Carvedilol 6.25 Mg Tablet) 6.25 mg PO BID REPLACED BY [facility]; Protocol Last Admin: 11/20/23 09:35 Dose: 6.25 mg Ergocalciferol (Ergocalciferol (Vitamin D2) 1,250 Mcg Capsule) 1,250 mcg PO PLEITEZ@0900 REPLACED BY [facility] Escitalopram Oxalate (Escitalopram Oxalate 10 Mg Tablet) 10 mg PO DAILY REPLACED BY [facility] Last Admin: 11/20/23 09:35 Dose: 10 mg Ferrous Sulfate (Ferrous Sulfate 324 Mg Tablet.Dr) 324 mg PO BID REPLACED BY [facility] Last Admin: 11/20/23 09:35 Dose: 324 mg Fluticasone Propionate (Fluticasone Propionate Nasal 16 Gm [place]) 1 spray NOSTRIL-B DAILY PRN PRN Reason: Allergy Symptoms Gabapentin (Gabapentin 300 Mg Capsule) 300 mg PO TID REPLACED BY [facility] Last Admin: 11/20/23 17:36 Dose: Not Given Hydromorphone HCl (Hydromorphone Hcl 0.5 Mg/0.5 Ml Syringe) 0.5 mg IVPUSH Q5M PRN PRN Reason: Pain, Moderate to Severe (Pain Scale 4-10) Stop: 11/20/23 22:12 Last Admin: 11/20/23 16:17 Dose: 0.5 mg Sodium Chloride (Ns) 1,000 mls @ 80 mls/hr IVCONT .[id number] REPLACED BY [facility] Last Admin: 11/20/23 12:27 Dose: 80 mls/hr Magnesium Hydroxide (Milk Of Magnesia 30 Ml Oral.Susp) 30 ml PO DAILY PRN PRN Reason: Constipation Meclizine HCl (Meclizine Hcl 25 Mg Tablet) 25 mg PO BID REPLACED BY [facility] Last Admin: 11/20/23 09:34 Dose: 25 mg Melatonin (Melatonin 3 Mg Tablet) 6 mg PO BEDTIME PRN PRN Reason: Insomnia Midodrine (Midodrine Hcl 5 Mg Tablet) 5 mg PO TID REPLACED BY [facility] Last Admin: 11/20/23 17:36 Dose: Not Given Morphine Sulfate (Morphine Sulfate 2 Mg/Ml Cartridge) 1 mg IVPUSH Q4H PRN; Protocol PRN Reason: Pain, Severe (Pain Scale 7-10) Last Admin: 11/20/23 15:30 Dose: 1 mg Naloxone HCl (Naloxone Hcl 0.4 Mg/Ml Vial) 0.04 mg IVPUSH Q5M PRN PRN Reason: Excessive sedation or RR < 8 Omeprazole (Omeprazole 40 Mg Capsule.Dr) 40 mg PO BID@0630,1630 REPLACED BY [facility] Last Admin: 11/20/23 17:45 Dose: 40 mg Ondansetron HCl (Ondansetron Hcl 4 Mg/2 Ml Vial) 4 mg IVPUSH Q8H PRN PRN Reason: Nausea and Vomiting Last Admin: 11/19/23 16:29 Dose: 4 mg Potassium Chloride (Potassium Chloride Er 20 Meq Tab.Er.Prt) 20 meq PO DAILY REPLACED BY [facility] Last Admin: 11/20/23 09:35 Dose: 20 meq Pyridoxine HCl (Pyridoxine Hcl (Vitamin B6) 50 Mg Tablet) 50 mg PO DAILY REPLACED BY [facility] Last Admin: 11/20/23 09:35 Dose: 50 mg Sodium Chloride (0.9 % Sodium Chloride Flush 3 Ml Syringe) 3 ml IVFLUSH QSHIFT REPLACED BY [facility] Last Admin: 11/20/23 17:45 Dose: 3 ml Sucralfate (Sucralfate 1 Gm Tablet) 1 gm PO QID REPLACED BY [facility] Last Admin: 11/20/23 17:45 Dose: 1 gm Thiamine HCl (Thiamine Hcl 100 Mg Tablet) 100 mg PO DAILY REPLACED BY [facility] Last Admin: 11/20/23 09:35 Dose: 100 mg Home Medications ?Medication ?Instructions ?Recorded ?Confirmed ?Last Taken ?Type ferrous sulfate 325 mg (65 mg 325 mg PO BID 05/11/20 11/19/23 11/17/23 History iron) tablet,delayed release cyanocobalamin (vitamin B-12) 1,000 mcg PO DAILY 10/17/20 11/19/23 11/17/23 History 1,000 mcg tablet pyridoxine (vitamin B6) 50 mg 50 mg PO DAILY 06/06/21 11/19/23 11/17/23 History tablet ergocalciferol (vitamin D2) 1,250 1,250 mcg PO PLEITEZ@0900 07/05/21 11/19/23 11/16/23 History mcg (50,000 unit) capsule (Vitamin D2) midodrine 5 mg tablet 5 mg PO TID 03/25/23 11/19/23 11/17/23 History acetaminophen 500 mg capsule 1,000 mg PO Q8H PRN Pain 08/10/23 11/19/23 Unknown History (Mapap (acetaminophen)) fluticasone propionate 50 1 spray intranasal DAILY PRN 08/10/23 11/19/23 08/08/23 History mcg/actuation nasal Allergy Symptoms spray,suspension [id number] 45 mg-folic 1 cap PO DAILY 08/10/23 11/19/23 11/17/23 History acid 800 mcg-vit K 120 mcg capsule (Bariatric Multivitamins) parenteral amino acid 15% no.5 15 0.5 ea IV MOWEFR@0900 08/10/23 11/19/23 11/18/23 History % combination no.5 intravenous solution (Clinisol SF) sucralfate 1 gram tablet 1 g PO QID 08/10/23 11/19/23 11/17/23 History carvedilol 6.25 mg tablet 6.25 mg PO BID 11/19/23 11/19/23 11/17/23 History meclizine 25 mg tablet 25 mg PO BID 11/19/23 11/19/23 11/17/23 History pantoprazole 40 mg tablet,delayed 40 mg PO DAILY 11/19/23 11/19/23 11/17/23 History release potassium chloride 20 mEq 20 meq PO DAILY 11/19/23 11/19/23 11/17/23 History tablet,extended release Physical Exam Vital Signs: Last Vital Signs Temp 97.2 F 11/20/23 16:53 Pulse 71 11/20/23 16:53 Resp 18 11/20/23 16:53 BP 155/82 H 11/20/23 16:53 Pulse Ox 98 11/20/23 16:53 O2 Del Method Room Air 11/20/23 16:53 BMI result Body Mass Index 19.4 cvs: s1s2 RS; cta ABd; soft mild epigastric tenderness Results Lab Results 11/20/23 18:13 11/20/23 04:08 Lab results: Chemistry 11/19/23 11/20/23 08:45 04:08 Sodium 134 L 133 L Potassium 4.5 4.1 Carbon Dioxide 24 23 BUN 55 H 18 H Creatinine 6.54 H* 4.16 H* Calcium 9.5 D 9.6 Hematology 11/19/23 11/20/23 08:45 04:08 WBC 9.1 5.7 Hgb 10.2 L D 9.6 L Plt Count 267 260 Assessment and Plan (1) End stage chronic kidney disease: Status: Acute Plan known ESRD on HD at [facility] via AVF followed by Dr Wang nephrogenic anemia now being treated for gastric ulcer, mw tear REC HD mwf UF as tolerated P binders HARDEEP per protocol stopped potassium supplement and magnesium based laxatives reviewed dialysis emr - she is not on k supplements - her K levels can be managed in the k bath used for HD planned switch to PD as outpatient- she is awaiting supplies l Procedures Date of Service Date of Service: 11/20/23
[2023-11-20 18:27] LABS: Hematocrit 33.4 % (37.0-47.0)
--- NOTE | 2023-11-20 20:45 | PM.EVENT ---
Event Note Date of Service: 11/20/23 Event Note: Radiology reported intra-abdominal free air throughout the upper abdomen. Called and discussed with Dr. Magana, general surgery. Currently hemodynamically stable. Will keep patient npo and order empiric zosyn, renally dosed Time Spent With Patient Time: Total time managing care of this patient today ____ minutes.
[2023-11-20] MEDS: Piperacillin Sodium/Tazobactam 4.5 GM in 0.9 % Sodium Chloride 100 ML IV (21:23)
[2023-11-20] MEDS: Pantoprazole Sodium 40 MG/10 ML VIAL IVPUSH (21:41)
--- NOTE | 2023-11-20 22:14 | PM.CNGS ---
History of Present Illness Consult details Consult date: 11/20/23 Requesting physician: Beto Gonsales Narrative: 53 yo female with history of ESRD on HD M/W/F, HTN, GERD, hx gastric sleeve in 2012 s/p revision in June 2023 w/ hx bleeding marginal ulcer at the anastomosis site, who presents to the ER via EMS from her [facility] for evaluation of coffee ground emesis and melanotic stools for the last 1.5 days. States she has had at least 20 episodes of dark colored vomit, started off as liquid now has some solid material. She also reports lower abdominal cramping pains, 8/10 in severity. She states she missed dialysis on Friday because she was not feeling well. Patient was admitted to the hospital yesterday and today underwent EGD with Dr. Moody. Here he found a Tania-Dixon tear at the esophagus and some other ulcerated lesions in the gastric area and just distal to the anastomosis. He placed several clips and sprayed the area in order to coagulate any blood and stopped any of the ooze and bleeding that was causing her GI bleed. In the recovery room postprocedure waking up from anesthesia the patient started complaining significant abdominal pain. CT scan of the abdomen and pelvis was carried out with p.o. contrast which showed no extravasation of the contrast no mediastinal free air but moderate amount upper abdominal free air. The patient has been hemodynamically stable but still complaining of abdominal pain. She says the pain that she came in was worse than the pain that she has now. She received some morphine a little while ago. She denies any fevers or chills. She has gotten up to pee post the procedure earlier today and said that did not really bother her too much. She has not had a bowel movement. Patient is on dialysis but recently got a peritoneal dialysis catheter placed at [facility]. Her bariatric surgery was also done at [facility]. Postop procedure she also came in complaining of significant abdominal pain the day after the surgery and there was noted free air most likely from her surgery. No re-exploration was carried out and the patient was observed and did well. 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 Lumbar back pain with radiculopathy affecting left lower extremity Physical exam (~02/14/21) Peritoneal dialysis catheter in place Polyarthralgia Dyslipidemia Family history of ovarian cancer Abnormal mammogram of right breast Angina pectoris syndrome Chest pain Constipation Nephrosclerosis Renal interstitial fibrosis Obesity (BMI 30-39.9) Back pain GERD (gastroesophageal reflux disease) History of headache HTN (hypertension) Family History Family History Father Asthma Mother Asthma Hypertension Ovarian cancer Maternal Grandfather Myocardial infarction Paternal Grandmother Stroke Surgical History Surgical History S/P arteriovenous (AV) graft placement History of sleeve gastrectomy Fistula Hx of colonoscopy Hx of hysterectomy Hx of tubal ligation History of endometrial ablation Social History Social History Household Members: None Housing: Apartment Do you presently have visiting nurse or other home services: No Alcohol intake: current Alcohol intake frequency: does not drink Alcohol type: beer Comment: Patient doesn't want bed alarm on Patient Tobacco Use Status: Current someday Tobacco user Tobacco use type: Cigarette Cigarettes Per Day: 2 Years Smoked: 10+ e-Cigarette/Vaping Use: Currently Using Second Hand Smoke Exposure: No Advance Directives Date on File: 04/27/20 service: No Current occupational status: employed Cognitive needs: No Hearing needs: No Vision needs: Yes (reading glasses) Meds Allergies Allergy/AdvReac Type Severity Reaction Status Date / Time ibuprofen Allergy Severe Unknown Verified 11/19/23 08:33 nifedipine Allergy Intermediate hives, leg Verified 11/19/23 08:33 edema Active Medications: Current Medications Acetaminophen (Acetaminophen 325 Mg Tablet) 650 mg PO Q6H PRN PRN Reason: Pain, Mild (Pain Scale 1-3), fever or headache Calamine (Calamine/Zinc Oxide Lotion 177 Ml Bottle) 1 appl TOPICAL Q3H PRN; Protocol PRN Reason: Itching Calcium Carbonate (Calcium Carbonate 750 Mg Tab.Chew) 750 mg PO Q4H PRN PRN Reason: Heartburn Carvedilol (Carvedilol 6.25 Mg Tablet) 6.25 mg PO BID [facility]; Protocol Last Admin: 11/20/23 21:30 Dose: Not Given Ergocalciferol (Ergocalciferol (Vitamin D2) 1,250 Mcg Capsule) 1,250 mcg PO PLEITEZ@0900 [facility] Escitalopram Oxalate (Escitalopram Oxalate 10 Mg Tablet) 10 mg PO DAILY [facility] Last Admin: 11/20/23 09:35 Dose: 10 mg Ferrous Sulfate (Ferrous Sulfate 324 Mg Tablet.) 324 mg PO BID [facility] Last Admin: 11/20/23 21:30 Dose: Not Given Fluticasone Propionate (Fluticasone Propionate Nasal 16 Gm Gracey) 1 spray NOSTRIL-B DAILY PRN PRN Reason: Allergy Symptoms Gabapentin (Gabapentin 300 Mg Capsule) 300 mg PO TID [facility] Last Admin: 11/20/23 21:30 Dose: Not Given Sodium Chloride (Ns) 1,000 mls @ 80 mls/hr IVCONT .[id number] [facility] Last Admin: 11/20/23 12:27 Dose: 80 mls/hr Piperacillin Sod/Tazobactam (Sod 4.5 gm/ Sodium Chloride) 100 mls @ 200 mls/hr IV Q12H [facility] Last Infusion: 11/20/23 21:53 Dose: Infused Meclizine HCl (Meclizine Hcl 25 Mg Tablet) 25 mg PO BID [facility] Last Admin: 11/20/23 21:30 Dose: Not Given Melatonin (Melatonin 3 Mg Tablet) 6 mg PO BEDTIME PRN PRN Reason: Insomnia Midodrine (Midodrine Hcl 5 Mg Tablet) 5 mg PO TID [facility] Last Admin: 11/20/23 21:31 Dose: Not Given Morphine Sulfate (Morphine Sulfate 2 Mg/Ml Cartridge) 1 mg IVPUSH Q4H PRN; Protocol PRN Reason: Pain, Severe (Pain Scale 7-10) Last Admin: 11/20/23 21:22 Dose: 1 mg Naloxone HCl (Naloxone Hcl 0.4 Mg/Ml Vial) 0.04 mg IVPUSH Q5M PRN PRN Reason: Excessive sedation or RR < 8 Omeprazole (Omeprazole 40 Mg Capsule.) 40 mg PO BID@0630,1630 [facility] Last Admin: 11/20/23 17:45 Dose: 40 mg Ondansetron HCl (Ondansetron Hcl 4 Mg/2 Ml Vial) 4 mg IVPUSH Q8H PRN PRN Reason: Nausea and Vomiting Last Admin: 11/19/23 16:29 Dose: 4 mg Potassium Chloride (Potassium Chloride Er 20 Meq Tab.Er.Prt) 20 meq PO DAILY [facility] Stop: 11/20/23 23:59 Last Admin: 11/20/23 09:35 Dose: 20 meq Pyridoxine HCl (Pyridoxine Hcl (Vitamin B6) 50 Mg Tablet) 50 mg PO DAILY [facility] Last Admin: 11/20/23 09:35 Dose: 50 mg Sodium Chloride (0.9 % Sodium Chloride Flush 3 Ml Syringe) 3 ml IVFLUSH QSHIFT [facility] Last Admin: 11/20/23 17:45 Dose: 3 ml Sucralfate (Sucralfate 1 Gm Tablet) 1 gm PO QID [facility] Last Admin: 11/20/23 21:32 Dose: Not Given Thiamine HCl (Thiamine Hcl 100 Mg Tablet) 100 mg PO DAILY [facility] Last Admin: 11/20/23 09:35 Dose: 100 mg Home Medications ?Medication ?Instructions ?Recorded ?Confirmed ?Last Taken ?Type ferrous sulfate 325 mg (65 mg 325 mg PO BID 05/11/20 11/19/23 11/17/23 History iron) tablet,delayed release cyanocobalamin (vitamin B-12) 1,000 mcg PO DAILY 10/17/20 11/19/23 11/17/23 History 1,000 mcg tablet pyridoxine (vitamin B6) 50 mg 50 mg PO DAILY 06/06/21 11/19/23 11/17/23 History tablet ergocalciferol (vitamin D2) 1,250 1,250 mcg PO PLEITEZ@0900 07/05/21 11/19/23 11/16/23 History mcg (50,000 unit) capsule (Vitamin D2) midodrine 5 mg tablet 5 mg PO TID 03/25/23 11/19/23 11/17/23 History acetaminophen 500 mg capsule 1,000 mg PO Q8H PRN Pain 08/10/23 11/19/23 Unknown History (Mapap (acetaminophen)) fluticasone propionate 50 1 spray intranasal DAILY PRN 08/10/23 11/19/23 08/08/23 History mcg/actuation nasal Allergy Symptoms spray,suspension [id number] 45 mg-folic 1 cap PO DAILY 08/10/23 11/19/2324 History acid 800 mcg-vit K 120 mcg capsule (Bariatric Multivitamins) parenteral amino acid 15% no.5 15 0.5 ea IV MOWEFR@0900 08/10/23 11/19/23 11/18/23 History % combination no.5 intravenous solution (Clinisol SF) sucralfate 1 gram tablet 1 g PO QID 08/10/23 11/19/23 11/17/23 History carvedilol 6.25 mg tablet 6.25 mg PO BID 11/19/23 11/19/23 11/17/23 History meclizine 25 mg tablet 25 mg PO BID 11/19/23 11/19/23 11/17/23 History pantoprazole 40 mg tablet,delayed 40 mg PO DAILY 11/19/23 11/19/23 11/17/23 History release potassium chloride 20 mEq 20 meq PO DAILY 11/19/23 11/19/23 11/17/23 History tablet,extended release Physical Exam Vital Signs: Vital Signs: Last Vital Signs Temp 98.1 F 11/20/23 20:50 Pulse 69 11/20/23 20:50 Resp 18 11/20/23 20:50 BP 119/68 11/20/23 20:50 Pulse Ox 98 11/20/23 20:50 O2 Del Method Room Air 11/20/23 20:50 BMI result Body Mass Index 19.4 Const: General: cooperative, healthy appearing and acute distress mild Cardio: Rate: regular rate Rhythm: regular rhythm GI: Other: Her abdomen is soft nondistended she is tender to palpation diffusely with some guarding mild peritoneal signs but is able to move around in bed okay. Examination of her peritoneal dialysis catheter is unremarkable with it looking intact without any problems. Results Labs 11/20/23 18:13 11/20/23 04:08 Labs: Abnormal lab results 11/20/23 11/20/23 Range/Units 04:08 18:13 RBC 3.37 L (4.20-5.50) X10*6/uL Hgb 9.6 L 11.0 L (12.0-16.0) g/dl Hct 29.2 L 33.4 L (37.0-47.0) % Sodium 133 L (135-145) mmol/L BUN 18 H (9-16) mg/dL Creatinine 4.16 H* (0.5-1.4) mg/dL Short CBC 11/20/23 11/20/23 Range/Units 04:08 18:13 WBC 5.7 (4.8-10.8) X10*3/uL Hgb 9.6 L 11.0 L (12.0-16.0) g/dl Hct 29.2 L 33.4 L (37.0-47.0) % Plt Count 260 (160-400) X10*3/uL BMP 11/20/23 04:08 Sodium 133 L Potassium 4.1 Chloride 102 Carbon Dioxide 23 BUN 18 H Creatinine 4.16 H* Calcium 9.6 All other labs normal. Imaging Abdomen CT scan report/results: report reviewed and image reviewed CT scan - pelvis: report reviewed and image reviewed Additional studies: [facility] ? Diagnostics Subcategory All Activity ??:?? All Time ??:?? All Subcategories Filter Laboratory Imaging Microbiology Pathology Blood Bank Tests Cardiovascular Other Specialty DATE TYPE STATUS REF RANGE/AUTHOR Hx Today 22:00 KUB X-Ray Signed Sheldon Portillo Today 15:[address] Signed Sheldon Portillo Today 15:[address] Signed Sheldon Portillo Today 14:06 General Surgery Image ? Today 00:[address] Cancelled Today 00:[address] Cancelled 11/19/23 15:03 Abdomen/Pelvis CT Signed Leonardo Israel 11/04/23 00:00 Diagnostic Report, [facility] 11/03/23 00:00 Diagnostic Report, [facility] 10/31/23 16:57 Abdomen/Pelvis CT Signed Dakotah Bell 08/19/23 18:07 Abdomen/Pelvis CT Signed Leonardo Israel 08/19/23 13:14 Chest X-Ray Signed Mary Salinas 07/18/23 00:00 Diagnostic Report, [facility] 07/17/23 00:00 Diagnostic Report, [facility] 07/01/23 00:00 Diagnostic Report, [facility] 06/10/23 08:31 Guidance Fluoroscopy Signed Scott Hernandez 06/03/23 07:40 General Surgery Image ? 02/11/23 09:35 Guidance Fluoroscopy Signed Raquel Ruth 12/26/22 00:00 Diagnostic Report, [facility] 12/11/22 00:00 Diagnostic Report, External [facility] 10/09/22 15:27 Mammogram Screening Signed Jacqueline Albert 03/29/22 00:00 Diagnostic Report, [facility] 09/27/21 12:23 Guidance Fluoroscopy Signed Leonardo Allan 09/13/21 14:25 Mammogram Diagnostic Signed Leonardo Allan 05/04/21 12:05 Abdomen/Pelvis CT Signed Francis Fry 01/10/21 13:00 Mammogram Diagnostic Signed John Thompson 01/10/21 13:00 Breast Ultrasound Signed John Thompson 12/05/20 00:00 Diagnostic Report, External Internal Medicine Marlyn Welaka Precious [facility] Chest XRay Marlyn Welaka Precious 11/27/20 00:00 Diagnostic Report, External Internal Medicine Marlyn Jatin Precious Abdomen Xray-[facility] M Welaka Precious 11/02/20 00:00 Diagnostic Report, External Chest Routine 2 Views - [facility] 10/17/20 18:13 Abdomen/Pelvis CT Signed Karan Fernández 10/17/20 18:08 Chest X-Ray Signed Zachery Woodruff 06/22/20 10:00 Mammogram Diagnostic Signed Leonardo Allan 06/22/20 10:00 Breast Biopsy Ultrasound Signed Leonardo Allan 06/15/20 15:30 Breast Ultrasound Signed Leonardo Allan 06/15/20 15:00 Mammogram, Additional Views Signed Leonardo Allan 05/26/20 16:30 Mammogram Screening Signed Leonardo Allan 05/19/20 09:35 Myocardial Perfusion Scan Nuc Med Signed Forest De La Cruz 12/23/19 10:23 Venous Duplex Signed Dinesh Seaman 12/17/19 17:44 Venous Duplex Signed Forest Chen 12/17/19 17:33 Chest X-Ray Signed Dinesh Garibay Gloria Acute 53, F?1970 MRN#? [id number] ADM IN,?HO.S3??362?-1? 5ft 5in 116lb 13.52oz BSA: 1.56m? BMI: 19.4kg/m? Acc#? [id number] Full Code Historical Visits Allergies ibuprofen Unknown nifedipine hives, leg edema Problems ? ONSET Abdominal pain Acute blood loss anemia Anemia due to GI blood loss Syncope Schatzki's ring Marginal ulcer Gastritis Esophagitis End stage chronic kidney disease Severe anemia Acute upper gastrointestinal bleeding Upper GI bleeding Idiopathic hypotension ESRD on dialysis Moderate major depression Systolic murmur Malnutrition Diarrhea Pre-op examination Non-cardiac chest pain Polyp of right nasal cavity Numbness Palpitations Urinary and fecal incontinence Anxiety and depression Chronic low back pain Fatigue Nasal polyp, benign Anxiety and depression LLQ abdominal pain Tubular adenoma of colon Anxiety Chronic renal insufficiency History of sleeve gastrectomy Spinal stenosis 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 Pulse 69? Resp 18? Temp 98.1 F? O2 Sat 98? Delivery Room Air? Home Meds Confirmed Prescription Monitoring Program MEDICATIONS (INSTRUCTIONS) LAST TAKEN Active acetaminophen [Mapap (acetaminophen)] 1,000 [id number] Unknown Bariatric Multivitamins 1 capPODAILY 11/17/23 carvedilol 6.25 mgPOBID 11/17/23 citalopram 20 mg tablet 20 [id number] days#90 tabs 11/17/23 Clinisol SF 15 % 0.5 eaIVMOWEFR@89911/18/23 cyanocobalamin (vitamin B-12) 1,000 mcgPODAILY 11/17/23 ergocalciferol (vitamin D2) 1,250 mcg (50,000 unit) capsule 1,250 mcgPOSU@0911/16/23 ferrous sulfate 325 mg (65 mg iron) tablet,delayed release 325 mgPOBID 11/17/23 fluticasone propionate 1 sprayintranasalDAILYPRNAllergy Symptoms Unknown gabapentin 300 mg capsule 300 [id number] days#90 caps 11/17/23 meclizine 25 mgPOBID 11/17/23 melatonin 10 mg capsule 10 [id number] days#90 caps Unknown midodrine 5 mg tablet 5 mgPOTID 11/17/23 omeprazole 40 mgPOBID#60 caps 11/17/23 ondansetron 4 [id number] and vomiting#10 tabs Unknown pantoprazole 40 mgPODAILY 11/17/23 potassium chloride 20 meqPODAILY 11/17/23 pyridoxine (vitamin B6) 50 mg tablet 50 mgPODAILY 11/17/23 sucralfate 1 gPOQID 11/17/23 thiamine HCl (vitamin B1) 100 mg tablet 100 [id number] days#90 tabs 11/17/23 vitamin A 2,400 mcg capsule 2,400 [id number] days#90 caps 11/17/23 My Widget No Data to Display Diagnostics Reports Meliza Olguin??53??F??1970 ? Allergy/Adv: ibuprofen, nifedipine (More??) Close KUB X-Ray (Signed) Sheldon Portillo - 11/20/[address] (Signed) Sheldon Portillo - 11/20/[address] (Signed) Sheldon Portillo - 11/20/23 General Surgery Image 11/20/[address] (Cancelled) 11/20/[address] (Cancelled) 11/20/23 Abdomen/Pelvis CT (Signed) Leonardo Israel - 11/19/23 Diagnostic Report, External 11/04/23 Diagnostic Report, External 11/03/23 Abdomen/Pelvis CT (Signed) Dakotah Bell - 10/31/23 Abdomen/Pelvis CT (Signed) Leonardo Israel - 08/19/23 Chest X-Ray (Signed) Mary Salinas - 08/19/23 Diagnostic Report, External 07/18/23 Diagnostic Report, External 07/17/23 Diagnostic Report, External 07/01/23 Guidance Fluoroscopy (Signed) Scott Hernandez - 06/10/23 General Surgery Image 06/03/23 Guidance Fluoroscopy (Signed) Raquel Ruth - 02/11/23 Diagnostic Report, External 12/26/22 Diagnostic Report, External 12/11/22 Mammogram Screening (Signed) Jacqueline Albert - 10/09/22 Diagnostic Report, External 03/29/22 Guidance Fluoroscopy (Signed) Leonardo Allan - 09/27/21 Mammogram Diagnostic (Signed) Leonardo Allan - 09/13/21 Abdomen/Pelvis CT (Signed) Francis Fry - 05/04/21 Mammogram Diagnostic (Signed) John Thompson - 01/10/21 Breast Ultrasound (Signed) John Thompson - 01/10/21 Diagnostic Report, External Internal Medicine Rozina Lang - 12/05/20 Diagnostic Report, External Internal Medicine Rozina Lang - 11/27/20 Diagnostic Report, External 11/02/20 Abdomen/Pelvis CT (Signed) Karan Fernández - 10/17/20 Chest X-Ray (Signed) Zachery Woodruff - 10/17/20 Mammogram Diagnostic (Signed) Leonardo Allan - 06/22/20 Breast Biopsy Ultrasound (Signed) Leonardo Allan - 06/22/20 Breast Ultrasound (Signed) Leonardo Allan - 06/15/20 Mammogram, Additional Views (Signed) Leonardo Allan - 06/15/20 Mammogram Screening (Signed) Leonardo Allan - 05/26/20 Myocardial Perfusion Scan Nuc Med (Signed) Forest De La Cruz - 05/19/20 Venous Duplex (Signed) Dinesh Seaman - 12/23/19 Venous Duplex (Signed) Forest Chen - 12/17/19 Chest X-Ray (Signed) Dinesh Garibay - 12/17/19 Launch?Image [place] [id number] CT Scan Report Signed Patient: Meliza Olguin MR#: [id number] : 1970 Acct:[id number] Age/Sex: 53 / F ADM Date: 11/19/23 Loc: HO.S3 362-[address]: Briana PARKER Ordering Physician: Briana Lofton Date of Service: 11/20/23 Procedure(s): CT abdomen wo IV con Accession Number(s): [id number] cc: Briana Lofton; Rozina Nicole MD~ EXAMINATION: CT ABDOMEN WITHOUT CONTRAST CLINICAL INFORMATION: Status post EGD. Evaluate for perforation. Pain. COMPARISON: Multiple priors, most recent CT abdomen/pelvis done earlier the same day. TECHNIQUE: Contiguous axial thin section helical images of the abdomen were performed without contrast. Oral contrast was administered before the examination. The data set was reformatted in the coronal and sagittal planes and reviewed on an independent workstation. This CT examination was performed using dose optimization techniques as appropriate, variously including the following: *Automated exposure control. *Adjustment of mA and/or kV according to patient size (this includes techniques or standardized protocols for targeted exams where dose is matched to indication/reason for exam; i.e. extremities or head). *Use of iterative reconstruction technique. DLP: 578 mGy-cm FINDINGS: LUNG BASES: Linear scar redemonstrated within the lingula. LIVER, GALLBLADDER, BILIARY TREE: The liver is normal in size and contour. Normal hepatic density. No focal hepatic parenchymal lesion. No intrahepatic or extrahepatic biliary ductal dilatation. The gallbladder is mildly distended. No wall thickening or adjacent inflammatory change. PANCREAS: Unremarkable. SPLEEN: Unremarkable. ADRENAL GLANDS AND KIDNEYS: Mild bilateral renal atrophy. No parenchymal lesion. No hydronephrosis or hydroureter. Vascular calcification versus nonobstructing stone within the left upper pole measuring up to 0.2 cm. BOWEL LOOPS: Postsurgical change consistent with Sae-en-Y gastric bypass. Oral contrast within the esophagus as well as extending across the gastrojejunal anastomosis. There is contrast within the left abdominal small bowel loops which are mildly prominent measuring up to 3.2 cm in greatest dimension. No extravasation of contrast. Mild wall thickening of the nondistended gastric pouch, unchanged when compared to the prior examination. No additional bowel wall thickening. No small or large bowel obstruction. Moderate air throughout the colon. PERITONEAL CAVITY: Intra-abdominal free air throughout the upper abdomen. Trace upper abdominal ascites. No organized fluid collection or abscess formation. No large upper abdominal soft tissue mass. Partially visualized peritoneal drainage catheter coiled within the pelvis. LYMPH NODES: No significant lymphadenopathy; however, evaluation is limited without IV contrast. VASCULAR: No abdominal aortic dilatation. Scattered atherosclerotic calcifications. BONES: No acute osseous abnormality. Chronic grade 1 anterolisthesis of L4 on L5 with prominent bilateral facet arthropathy. CT/CT abdomen wo IV con IMPRESSION: 1. Postsurgical change consistent with Sae-en-Y gastric bypass. Oral contrast within the esophagus as well as extending across the gastrojejunal anastomosis. No extravasation of contrast. Mildly prominent left abdominal small bowel loops measuring up to 3.2 cm in greatest dimension. No additional bowel wall thickening. No small or large bowel obstruction. Moderate air throughout the colon. 2. Intra-abdominal free air throughout the upper abdomen. Trace upper abdominal ascites. No organized fluid collection or abscess formation. 3. Additional chronic findings are unchanged. Fleischner guidelines were followed. This critical result was discussed with Dr. Gonsales at 8:39 PM on 11/20/2023 and it was ascertained that the content and urgency of the report was understood at the time of direct communication. 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 Diagnostics Subcategory All Activity ??:?? All Time ??:?? All Subcategories Filter Laboratory Imaging Microbiology Pathology Blood Bank Tests Cardiovascular Other Specialty DATE TYPE STATUS REF RANGE/AUTHOR Hx Today 22:00 KUB X-Ray Signed Sheldon Portillo Today 15:[address] Signed Sheldon Portillo Today 15:[address] Signed Sheldon Portillo Today 14:06 General Surgery Image ? Today 00:[address] Cancelled Today 00:[address] Cancelled 11/19/23 15:03 Abdomen/Pelvis CT Signed Leonardo Israel 11/04/23 00:00 Diagnostic Report, [facility] 11/03/23 00:00 Diagnostic Report, [facility] 10/31/23 16:57 Abdomen/Pelvis CT Signed Dakotah Bell 08/19/23 18:07 Abdomen/Pelvis CT Signed Leonardo Israel 08/19/23 13:14 Chest X-Ray Signed Mary Salinas 07/18/23 00:00 Diagnostic Report, [facility] 07/17/23 00:00 Diagnostic Report, [facility] 07/01/23 00:00 Diagnostic Report, [facility] 06/10/23 08:31 Guidance Fluoroscopy Signed Scott Hernandez 06/03/23 07:40 General Surgery Image ? 02/11/23 09:35 Guidance Fluoroscopy Signed Raquel Ruth 12/26/22 00:00 Diagnostic Report, [facility] 12/11/22 00:00 Diagnostic Report, [facility] 10/09/22 15:27 Mammogram Screening Signed Jacqueline Albert 03/29/22 00:00 Diagnostic Report, [facility] 09/27/21 12:23 Guidance Fluoroscopy Signed Leonardo Allan 09/13/21 14:25 Mammogram Diagnostic Signed Leonardo Allan 05/04/21 12:05 Abdomen/Pelvis CT Signed Francis Fry 01/10/21 13:00 Mammogram Diagnostic Signed John Thompson 01/10/21 13:00 Breast Ultrasound Signed John Thompson 12/05/20 00:00 Diagnostic Report, External Internal Medicine Rozina Whittakera Precious [facility] Chest XRay MarlynEugene Steiner Precious 11/27/20 00:00 Diagnostic Report, External Internal Medicine Marlyn Jatin Precious Abdomen Xray-[facility] Rozina Steiner Precious 11/02/20 00:00 Diagnostic Report, External DR Chest Routine 2 Views - [facility] Meliza Olguin Acute 53, F?1970 MRN#? [id number] ADM IN,?HO.S3??362?-1? 5ft 5in 116lb 13.52oz BSA: 1.56m? BMI: 19.4kg/m? Acc#? [id number] Full Code Historical Visits Allergies ibuprofen Unknown nifedipine hives, leg edema Problems ? ONSET Abdominal pain Acute blood loss anemia Anemia due to GI blood loss Syncope Schatzki's ring Marginal ulcer Gastritis Esophagitis End stage chronic kidney disease Severe anemia Acute upper gastrointestinal bleeding Upper GI bleeding Idiopathic hypotension ESRD on dialysis Moderate major depression Systolic murmur Malnutrition Diarrhea Pre-op examination Non-cardiac chest pain Polyp of right nasal cavity Numbness Palpitations Urinary and fecal incontinence Anxiety and depression Chronic low back pain Fatigue Nasal polyp, benign Anxiety and depression LLQ abdominal pain Tubular adenoma of colon Anxiety Chronic renal insufficiency History of sleeve gastrectomy Spinal stenosis 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 Pulse 69? Resp 18? Temp 98.1 F? O2 Sat 98? Delivery Room Air? Home Meds Confirmed Prescription Monitoring Program MEDICATIONS (INSTRUCTIONS) LAST TAKEN Active acetaminophen [Mapap (acetaminophen)] 1,000 [id number] Unknown Bariatric Multivitamins 1 capPODAILY 11/17/23 carvedilol 6.25 mgPOBID 11/17/23 citalopram 20 mg tablet 20 [id number] days#90 tabs 11/17/23 Clinisol SF 15 % 0.5 eaIVMOWEFR@0900 11/18/23 cyanocobalamin (vitamin B-12) 1,000 mcgPODAILY 11/17/23 ergocalciferol (vitamin D2) 1,250 mcg (50,000 unit) capsule 1,250 mcgPOSU@0900 11/16/23 ferrous sulfate 325 mg (65 mg iron) tablet,delayed release 325 mgPOBID 11/17/23 fluticasone propionate 1 sprayintranasalDAILYPRNAllergy Symptoms Unknown gabapentin 300 mg capsule 300 [id number] days#90 caps 11/17/23 meclizine 25 mgPOBID 11/17/23 melatonin 10 mg capsule 10 tdDWJMCWVHSVWTcxpzh85 days#90 caps Unknown midodrine 5 mg tablet 5 mgPOTID 11/17/23 omeprazole 40 mgPOBID#60 caps 11/17/23 ondansetron 4 [id number] and vomiting#10 tabs Unknown pantoprazole 40 mgPODAILY 11/17/23 potassium chloride 20 meqPODAILY 11/17/23 pyridoxine (vitamin B6) 50 mg tablet 50 mgPODAILY 11/17/23 sucralfate 1 gPOQID 11/17/23 thiamine HCl (vitamin B1) 100 mg tablet 100 siIJJZEUM59 days#90 tabs 11/17/23 vitamin A 2,400 mcg capsule 2,400 maqIOGZTHA42 days#90 caps 11/17/23 My Widget No Data to Display Diagnostics Reports Meliza Olguin??53??F??1970 ? Allergy/Adv: ibuprofen, nifedipine (More??) Close KUB X-Ray (Signed) Sheldon Portillo 11/20/[address] (Signed) Sheldon Portillo - 11/20/[address] (Signed) Sheldon Portillo - 11/20/23 General Surgery Image 11/20/[address] (Cancelled) 11/20/[address] (Cancelled) 11/20/23 Abdomen/Pelvis CT (Signed) Leonardo Israel - 11/19/23 Diagnostic Report, External 11/04/23 Diagnostic Report, External 11/03/23 Abdomen/Pelvis CT (Signed) Dakotah Bell - 10/31/23 Abdomen/Pelvis CT (Signed) Leonardo Israel - 08/19/23 Chest X-Ray (Signed) Mary Salinas - 08/19/23 Diagnostic Report, External 07/18/23 Diagnostic Report, External 07/17/23 Diagnostic Report, External 07/01/23 Guidance Fluoroscopy (Signed) Scott Hernandez - 06/10/23 General Surgery Image 06/03/23 Guidance Fluoroscopy (Signed) Raquel Ruth - 02/11/23 Diagnostic Report, External 12/26/22 Diagnostic Report, External 12/11/22 Mammogram Screening (Signed) Jacqueline Albert - 10/09/22 Diagnostic Report, External 03/29/22 Guidance Fluoroscopy (Signed) Leonardo Allan - 09/27/21 Mammogram Diagnostic (Signed) Leonardo Allan - 09/13/21 Abdomen/Pelvis CT (Signed) Francis Fry - 05/04/21 Mammogram Diagnostic (Signed) John Thompson - 01/10/21 Breast Ultrasound (Signed) John Thompson - 01/10/21 Diagnostic Report, External Internal Medicine Rozina Steiner Precioussol Knight Welaka Precious - 12/05/20 Diagnostic Report, External Internal Medicine Rozina Steiner Preciousgertrude Knight Jatin Precious - 11/27/20 Diagnostic Report, External 11/02/20 Launch?Image [address] [address] [address] Scan Report Signed Patient: Meliza Olguin MR#: [id number] : 1970 Acct:[id number] Age/Sex: 53 / F ADM Date: 11/19/23 Loc: HO.S3 362-[address]: Briana PARKER Ordering Physician: Briana Lofton Date of Service: 11/20/23 Procedure(s): CT chest wo IV con Accession Number(s): [id number] cc: Briana Lofton; Rozina Nicole MD~ EXAMINATION: CT CHEST WITHOUT CONTRAST CLINICAL INFORMATION: Status post EGD. Evaluate for perforation. COMPARISON: Chest radiograph dated 08/19/2023. TECHNIQUE: Multidetector volumetric CT imaging of the chest was done. Axial MIP volume rendering provided. Sagittal and coronal reformatted images were obtained. This CT examination was performed using dose optimization techniques as appropriate, variously including the following: *Automated exposure control. *Adjustment of mA and/or kV according to patient size (this includes techniques or standardized protocols for targeted exams where dose is matched to indication/reason for exam; i.e. extremities or head). *Use of iterative reconstruction technique. DLP: 493 mGy-cm FINDINGS: VEHICLE BODY SANDER: Unremarkable. LUNGS: Irregular linear scarring within the lingula, similar when compared to the prior radiograph. No new airspace consolidation. No pulmonary nodule or mass. The central airways are patent. MEDIASTINUM: No cardiomegaly. No pericardial effusion. No thoracic aortic dilatation. Atherosclerotic calcifications. No significant superior mediastinal or hilar lymphadenopathy. Unremarkable thyroid. Oral contrast within the esophagus. No esophageal extravasation to suggest perforation. No pneumomediastinum. CORONARY ARTERY CALCIFICATION: Present. PLEURA: There is no pleural effusion. No pleural mass or thickening. AXILLA: No lymphadenopathy. UPPER ABDOMEN: Partially visualized free air beneath the diaphragm, better evaluated on the concurrent CT abdomen. OSSEOUS STRUCTURES: Unremarkable. CT/CT chest wo IV con IMPRESSION: 1. No esophageal extravasation to suggest perforation. No pneumomediastinum. 2. Irregular linear scarring within the lingula, similar when compared to the prior radiograph. No new airspace consolidation. 3. No lymphadenopathy. 4. Partially visualized free air beneath the diaphragm, better evaluated on the concurrent CT abdomen. Fleischner guidelines were followed. 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 Diagnostics Subcategory All Activity ??:?? All Time ??:?? All Subcategories Filter Laboratory Imaging Microbiology Pathology Blood Bank Tests Cardiovascular Other Specialty DATE TYPE STATUS REF RANGE/AUTHOR Hx Today 22:00 KUB X-Ray Signed Sheldon Portillo Today 15:[address] Signed Sheldon Portillo Today 15:[address] Signed Sheldon Portillo Today 14:06 General Surgery Image ? Today 00:[address] Cancelled Today 00:[address] Cancelled 11/19/23 15:03 Abdomen/Pelvis CT Signed Leonardo Israel 11/04/23 00:00 Diagnostic Report, External [facility] 11/03/23 00:00 Diagnostic Report, External [facility] 10/31/23 16:57 Abdomen/Pelvis CT Signed Dakotah Bell 08/19/23 18:07 Abdomen/Pelvis CT Signed Leonardo Israel 08/19/23 13:14 Chest X-Ray Signed Mary Salinas 07/18/23 00:00 Diagnostic Report, External [facility] 07/17/23 00:00 Diagnostic Report, External [facility] 07/01/23 00:00 Diagnostic Report, External [facility] 06/10/23 08:31 Guidance Fluoroscopy Signed Scott Hernandez 06/03/23 07:40 General Surgery Image ? 02/11/23 09:35 Guidance Fluoroscopy Signed Raquel Ruth 12/26/22 00:00 Diagnostic Report, External [facility] 12/11/22 00:00 Diagnostic Report, [facility] 10/09/22 15:27 Mammogram Screening Signed Jacqueline Albert 03/29/22 00:00 Diagnostic Report, External [facility] 09/27/21 12:23 Guidance Fluoroscopy Signed Leonardo Allan 09/13/21 14:25 Mammogram Diagnostic Signed Leonardo Allan 05/04/21 12:05 Abdomen/Pelvis CT Signed Francis Fry 01/10/21 13:00 Mammogram Diagnostic Signed John Thompson 01/10/21 13:00 Breast Ultrasound Signed John Thompson 12/05/20 00:00 Diagnostic Report, External [facility] Medicine Rozina Lang [facility] Chest XRay Rozina Lang 11/27/20 00:00 Diagnostic Report, External Internal Medicine Rozina Lang Abdomen Xray-[facility] Rozina Lang 11/02/20 00:00 Diagnostic Report, External DR Chest Routine 2 Views - Kalyn Choco Perry,Meliza Acute 53, F?1970 MRN#? [id number] ADM IN,?HO.S3??362?-1? 5ft 5in 116lb 13.52oz BSA: 1.56m? BMI: 19.4kg/m? Acc#? [id number] Full Code Historical Visits Allergies ibuprofen Unknown nifedipine hives, leg edema Problems ? ONSET Abdominal pain Acute blood loss anemia Anemia due to GI blood loss Syncope Schatzki's ring Marginal ulcer Gastritis Esophagitis End stage chronic kidney disease Severe anemia Acute upper gastrointestinal bleeding Upper GI bleeding Idiopathic hypotension ESRD on dialysis Moderate major depression Systolic murmur Malnutrition Diarrhea Pre-op examination Non-cardiac chest pain Polyp of right nasal cavity Numbness Palpitations Urinary and fecal incontinence Anxiety and depression Chronic low back pain Fatigue Nasal polyp, benign Anxiety and depression LLQ abdominal pain Tubular adenoma of colon Anxiety Chronic renal insufficiency History of sleeve gastrectomy Spinal stenosis 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 Pulse 69? Resp 18? Temp 98.1 F? O2 Sat 98? Delivery Room Air? Home Meds Confirmed Prescription Monitoring Program MEDICATIONS (INSTRUCTIONS) LAST TAKEN Active acetaminophen [Mapap (acetaminophen)] 1,000 [id number] Unknown Bariatric Multivitamins 1 capPODAILY 11/17/23 carvedilol 6.25 mgPOBID 11/17/23 citalopram 20 mg tablet 20 [id number] days#90 tabs 11/17/23 Clinisol SF 15 % 0.5 eaIVMOWEFR@0900 11/18/23 cyanocobalamin (vitamin B-12) 1,000 mcgPODAILY 11/17/23 ergocalciferol (vitamin D2) 1,250 mcg (50,000 unit) capsule 1,250 mcgPOSU@0900 11/16/23 ferrous sulfate 325 mg (65 mg iron) tablet,delayed release 325 mgPOBID 11/17/23 fluticasone propionate 1 sprayintranasalDAILYPRNAllergy Symptoms Unknown gabapentin 300 mg capsule 300 tdNKZPN32 days#90 caps 11/17/23 meclizine 25 mgPOBID 11/17/23 melatonin 10 mg capsule 10 nrEYJXYRVFRXKFvxffe09 days#90 caps Unknown midodrine 5 mg tablet 5 mgPOTID 11/17/23 omeprazole 40 mgPOBID#60 caps 11/17/23 ondansetron 4 [id number] and vomiting#10 tabs Unknown pantoprazole 40 mgPODAILY 11/17/23 potassium chloride 20 meqPODAILY 11/17/23 pyridoxine (vitamin B6) 50 mg tablet 50 mgPODAILY 11/17/23 sucralfate 1 gPOQID 11/17/23 thiamine HCl (vitamin B1) 100 mg tablet 100 gwQRJIPAT57 days#90 tabs 11/17/23 vitamin A 2,400 mcg capsule 2,400 qduNZUGYDH81 days#90 caps 11/17/23 My Widget No Data to Display Diagnostics Reports Meliza Olguin??53??F??1970 ? Allergy/Adv: ibuprofen, nifedipine (More??) Close KUB X-Ray (Signed) Sheldon Portillo - 11/20/[address] (Signed) Sheldon Portillo - 11/20/[address] (Signed) Sheldon Portillo - 11/20/23 General Surgery Image 11/20/[address] (Cancelled) 11/20/[address] (Cancelled) 11/20/23 Abdomen/Pelvis CT (Signed) Leonardo Israel - 11/19/23 Diagnostic Report, External 11/04/23 Diagnostic Report, External 11/03/23 Abdomen/Pelvis CT (Signed) Dakotah Bell - 10/31/23 Abdomen/Pelvis CT (Signed) Leonardo Israel - 08/19/23 Chest X-Ray (Signed) Mary Salinas - 08/19/23 Diagnostic Report, External 07/18/23 Diagnostic Report, External 07/17/23 Diagnostic Report, External 07/01/23 Guidance Fluoroscopy (Signed) TonydiptiScott - 06/10/23 General Surgery Image 06/03/23 Guidance Fluoroscopy (Signed) Raquel Ruth - 02/11/23 Diagnostic Report, External 12/26/22 Diagnostic Report, External 12/11/22 Mammogram Screening (Signed) Jacqueline Albert - 10/09/22 Diagnostic Report, External 03/29/22 Guidance Fluoroscopy (Signed) Leonardo Allan - 09/27/21 Mammogram Diagnostic (Signed) Leonardo Allan - 09/13/21 Abdomen/Pelvis CT (Signed) Francis Fry - 05/04/21 Mammogram Diagnostic (Signed) John Thompson - 01/10/21 Breast Ultrasound (Signed) John Thompson - 01/10/21 Diagnostic Report, External Internal Medicine Rozina Lang - 12/05/20 Diagnostic Report, External Internal Medicine Rozina Lang - 11/27/20 Diagnostic Report, External 11/02/20 Launch?Image [place] [address] CT Scan Report Signed Patient: Meliza Olguin MR#: [id number] : 1970 Acct:[id number] Age/Sex: 53 / F ADM Date: 11/19/23 Loc: HO.S3 362-[address]: Briana PARKER Ordering Physician: Briana Lofton Date of Service: 11/20/23 Procedure(s): CT chest wo IV con Accession Number(s): [id number] cc: Briana Lofton; Rozina Nicole MD~ EXAMINATION: CT CHEST WITHOUT CONTRAST CLINICAL INFORMATION: Status post EGD. Evaluate for perforation. COMPARISON: Chest radiograph dated 08/19/2023. TECHNIQUE: Multidetector volumetric CT imaging of the chest was done. Axial MIP volume rendering provided. Sagittal and coronal reformatted images were obtained. This CT examination was performed using dose optimization techniques as appropriate, variously including the following: *Automated exposure control. *Adjustment of mA and/or kV according to patient size (this includes techniques or standardized protocols for targeted exams where dose is matched to indication/reason for exam; i.e. extremities or head). *Use of iterative reconstruction technique. DLP: 493 mGy-cm FINDINGS: VEHICLE BODY SANDER: Unremarkable. LUNGS: Irregular linear scarring within the lingula, similar when compared to the prior radiograph. No new airspace consolidation. No pulmonary nodule or mass. The central airways are patent. MEDIASTINUM: No cardiomegaly. No pericardial effusion. No thoracic aortic dilatation. Atherosclerotic calcifications. No significant superior mediastinal or hilar lymphadenopathy. Unremarkable thyroid. Oral contrast within the esophagus. No esophageal extravasation to suggest perforation. No pneumomediastinum. CORONARY ARTERY CALCIFICATION: Present. PLEURA: There is no pleural effusion. No pleural mass or thickening. AXILLA: No lymphadenopathy. UPPER ABDOMEN: Partially visualized free air beneath the diaphragm, better evaluated on the concurrent CT abdomen. OSSEOUS STRUCTURES: Unremarkable. CT/CT chest wo IV con IMPRESSION: 1. No esophageal extravasation to suggest perforation. No pneumomediastinum. 2. Irregular linear scarring within the lingula, similar when compared to the prior radiograph. No new airspace consolidation. 3. No lymphadenopathy. 4. Partially visualized free air beneath the diaphragm, better evaluated on the concurrent CT abdomen. Fleischner guidelines were followed. 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 Diagnostics Subcategory All Activity ??:?? All Time ??:?? All Subcategories Filter Laboratory Imaging Microbiology Pathology Blood Bank Tests Cardiovascular Other Specialty DATE TYPE STATUS REF RANGE/AUTHOR Hx Today 22:00 KUB X-Ray Signed Sheldon Portillo Today 15:[address] Signed Sheldon Portillo Today 15:[address] Signed Sheldon Portillo Today 14:06 General Surgery Image ? Today 00:[address] Cancelled Today 00:[address] Cancelled 11/19/23 15:03 Abdomen/Pelvis CT Signed Leonardo Israel 11/04/23 00:00 Diagnostic Report, [facility] 11/03/23 00:00 Diagnostic Report, [facility] 10/31/23 16:57 Abdomen/Pelvis CT Signed Dakotah Bell 08/19/23 18:07 Abdomen/Pelvis CT Signed Leonardo Israel 08/19/23 13:14 Chest X-Ray Signed Mary Salinas 07/18/23 00:00 Diagnostic Report, [facility] 07/17/23 00:00 Diagnostic Report, External [facility] 07/01/23 00:00 Diagnostic Report, [facility] 06/10/23 08:31 Guidance Fluoroscopy Signed Scott Hernandez 06/03/23 07:40 General Surgery Image ? 02/11/23 09:35 Guidance Fluoroscopy Signed Raquel Ruth 12/26/22 00:00 Diagnostic Report, [facility] 12/11/22 00:00 Diagnostic Report, [facility] 10/09/22 15:27 Mammogram Screening Signed Jacqueline Albert 03/29/22 00:00 Diagnostic Report, [facility] 09/27/21 12:23 Guidance Fluoroscopy Signed Leonardo Allan 09/13/21 14:25 Mammogram Diagnostic Signed Leonardo Allan 05/04/21 12:05 Abdomen/Pelvis CT Signed Francis Fyr 01/10/21 13:00 Mammogram Diagnostic Signed John Thompson 01/10/21 13:00 Breast Ultrasound Signed John Thompson 12/05/20 00:00 Diagnostic Report, External Internal Medicine Rozina Knight Welaka Precious [facility] Chest XRay Marlyn Welaka Precious 11/27/20 00:00 Diagnostic Report, External Internal Medicine Rozina Knight Jatin Precious Abdomen Xray[facility] Marlyn Jatin Precious 11/02/20 00:00 Diagnostic Report, External DR Chest Routine 2 Views - Meliza Theodore Acute 53, F?1970 MRN#? [id number] ADM IN,?HO.S3??362?-1? 5ft 5in 116lb 13.52oz BSA: 1.56m? BMI: 19.4kg/m? Acc#? [id number] Full Code Historical Visits Allergies ibuprofen Unknown nifedipine hives, leg edema Problems ? ONSET Abdominal pain Acute blood loss anemia Anemia due to GI blood loss Syncope Schatzki's ring Marginal ulcer Gastritis Esophagitis End stage chronic kidney disease Severe anemia Acute upper gastrointestinal bleeding Upper GI bleeding Idiopathic hypotension ESRD on dialysis Moderate major depression Systolic murmur Malnutrition Diarrhea Pre-op examination Non-cardiac chest pain Polyp of right nasal cavity Numbness Palpitations Urinary and fecal incontinence Anxiety and depression Chronic low back pain Fatigue Nasal polyp, benign Anxiety and depression LLQ abdominal pain Tubular adenoma of colon Anxiety Chronic renal insufficiency History of sleeve gastrectomy Spinal stenosis 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 Pulse 69? Resp 18? Temp 98.1 F? O2 Sat 98? Delivery Room Air? Home Meds Confirmed Prescription Monitoring Program MEDICATIONS (INSTRUCTIONS) LAST TAKEN Active acetaminophen [Mapap (acetaminophen)] 1,000 [id number] Unknown Bariatric Multivitamins 1 capPODAILY 11/17/23 carvedilol 6.25 mgPOBID 11/17/23 citalopram 20 mg tablet 20 [id number] days#90 tabs 11/17/23 Clinisol SF 15 % 0.5 eaIVMOWEFR@0911/18/23 cyanocobalamin (vitamin B-12) 1,000 mcgPODAILY 11/17/23 ergocalciferol (vitamin D2) 1,250 mcg (50,000 unit) capsule 1,250 mcgPOSU@0900 11/16/23 ferrous sulfate 325 mg (65 mg iron) tablet,delayed release 325 mgPOBID 11/17/23 fluticasone propionate 1 sprayintranasalDAILYPRNAllergy Symptoms Unknown gabapentin 300 mg capsule 300 ebFROEF49 days#90 caps 11/17/23 meclizine 25 mgPOBID 11/17/23 melatonin 10 mg capsule 10 [id number] days#90 caps Unknown midodrine 5 mg tablet 5 mgPOTID 11/17/23 omeprazole 40 mgPOBID#60 caps 11/17/23 ondansetron 4 gxZIH5ITRQowdowm and vomiting#10 tabs Unknown pantoprazole 40 mgPODAILY 11/17/23 potassium chloride 20 meqPODAILY 11/17/23 pyridoxine (vitamin B6) 50 mg tablet 50 mgPODAILY 11/17/23 sucralfate 1 gPOQID 11/17/23 thiamine HCl (vitamin B1) 100 mg tablet 100 jfELLIQXS65 days#90 tabs 11/17/23 vitamin A 2,400 mcg capsule 2,400 wveAWVAYNH49 days#90 caps 11/17/23 My Widget No Data to Display Diagnostics Reports Meliza Olguin??53??F??1970 ? Allergy/Adv: ibuprofen, nifedipine (More??) Close KUB X-Ray (Signed) Sheldon Portillo - 11/20/[address] (Signed) Sheldon Portillo - 11/20/[address] (Signed) Sheldon Portillo - 11/20/23 General Surgery Image 11/20/[address] (Cancelled) 11/20/[address] (Cancelled) 11/20/23 Abdomen/Pelvis CT (Signed) Leonardo Israel - 11/19/23 Diagnostic Report, External 11/04/23 Diagnostic Report, External 11/03/23 Abdomen/Pelvis CT (Signed) Dakotah Bell - 10/31/23 Abdomen/Pelvis CT (Signed) Leonardo Israel - 08/19/23 Chest X-Ray (Signed) Mary Salinas - 08/19/23 Diagnostic Report, External 07/18/23 Diagnostic Report, External 07/17/23 Diagnostic Report, External 07/01/23 Guidance Fluoroscopy (Signed) Scott Hernandez - 06/10/23 General Surgery Image 06/03/23 Guidance Fluoroscopy (Signed) Raquel Ruth - 02/11/23 Diagnostic Report, External 12/26/22 Diagnostic Report, External 12/11/22 Mammogram Screening (Signed) Jacqueline Albert - 10/09/22 Diagnostic Report, External 03/29/22 Guidance Fluoroscopy (Signed) Leonardo Allan - 09/27/21 Mammogram Diagnostic (Signed) Leonardo Allan - 09/13/21 Abdomen/Pelvis CT (Signed) Francis Fry - 05/04/21 Mammogram Diagnostic (Signed) John Thompson - 01/10/21 Breast Ultrasound (Signed) John Thompson - 01/10/21 Diagnostic Report, External Internal Medicine Rozina Handy M Jatin Lang - 12/05/20 Diagnostic Report, External Internal Medicine Rozina Knight Jatin Lang Rozina Knight Jatin Lang - 11/27/20 Diagnostic Report, External 11/02/20 Launch?Image [place] [address] CT Scan Report Signed Patient: Meliza Olguin MR#: [id number] : 1970 Acct:[id number] Age/Sex: 53 / F ADM Date: 11/19/23 Loc: HO.S3 362-[address]: Briana PARKER Ordering Physician: Briana Lofton Date of Service: 11/20/23 Procedure(s): CT abdomen wo IV con Accession Number(s): [id number] cc: Briana Lofton; Rozina Nicole MD~ EXAMINATION: CT ABDOMEN WITHOUT CONTRAST CLINICAL INFORMATION: Status post EGD. Evaluate for perforation. Pain. COMPARISON: Multiple priors, most recent CT abdomen/pelvis done earlier the same day. TECHNIQUE: Contiguous axial thin section helical images of the abdomen were performed without contrast. Oral contrast was administered before the examination. The data set was reformatted in the coronal and sagittal planes and reviewed on an independent workstation. This CT examination was performed using dose optimization techniques as appropriate, variously including the following: *Automated exposure control. *Adjustment of mA and/or kV according to patient size (this includes techniques or standardized protocols for targeted exams where dose is matched to indication/reason for exam; i.e. extremities or head). *Use of iterative reconstruction technique. DLP: 578 mGy-cm FINDINGS: LUNG BASES: Linear scar redemonstrated within the lingula. LIVER, GALLBLADDER, BILIARY TREE: The liver is normal in size and contour. Normal hepatic density. No focal hepatic parenchymal lesion. No intrahepatic or extrahepatic biliary ductal dilatation. The gallbladder is mildly distended. No wall thickening or adjacent inflammatory change. PANCREAS: Unremarkable. SPLEEN: Unremarkable. ADRENAL GLANDS AND KIDNEYS: Mild bilateral renal atrophy. No parenchymal lesion. No hydronephrosis or hydroureter. Vascular calcification versus nonobstructing stone within the left upper pole measuring up to 0.2 cm. BOWEL LOOPS: Postsurgical change consistent with Sae-en-Y gastric bypass. Oral contrast within the esophagus as well as extending across the gastrojejunal anastomosis. There is contrast within the left abdominal small bowel loops which are mildly prominent measuring up to 3.2 cm in greatest dimension. No extravasation of contrast. Mild wall thickening of the nondistended gastric pouch, unchanged when compared to the prior examination. No additional bowel wall thickening. No small or large bowel obstruction. Moderate air throughout the colon. PERITONEAL CAVITY: Intra-abdominal free air throughout the upper abdomen. Trace upper abdominal ascites. No organized fluid collection or abscess formation. No large upper abdominal soft tissue mass. Partially visualized peritoneal drainage catheter coiled within the pelvis. LYMPH NODES: No significant lymphadenopathy; however, evaluation is limited without IV contrast. VASCULAR: No abdominal aortic dilatation. Scattered atherosclerotic calcifications. BONES: No acute osseous abnormality. Chronic grade 1 anterolisthesis of L4 on L5 with prominent bilateral facet arthropathy. CT/CT abdomen wo IV con IMPRESSION: 1. Postsurgical change consistent with Sae-en-Y gastric bypass. Oral contrast within the esophagus as well as extending across the gastrojejunal anastomosis. No extravasation of contrast. Mildly prominent left abdominal small bowel loops measuring up to 3.2 cm in greatest dimension. No additional bowel wall thickening. No small or large bowel obstruction. Moderate air throughout the colon. 2. Intra-abdominal free air throughout the upper abdomen. Trace upper abdominal ascites. No organized fluid collection or abscess formation. 3. Additional chronic findings are unchanged. Fleischner guidelines were followed. This critical result was discussed with Dr. Gonsales at 8:39 PM on 11/20/2023 and it was ascertained that the content and urgency of the report was understood at the time of direct communication. 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 Diagnostics Subcategory All Activity ??:?? All Time ??:?? All Subcategories Filter Laboratory Imaging Microbiology Pathology Blood Bank Tests Cardiovascular Other Specialty DATE TYPE STATUS REF RANGE/AUTHOR Hx Today 22:00 KUB X-Ray Signed Sheldon Portillo Today 15:[address] Signed Sheldon Portillo Today 15:[address] Signed Sheldon Portillo Today 14:06 General Surgery Image ? Today 00:[address] Cancelled Today 00:[address] Cancelled 11/19/23 15:03 Abdomen/Pelvis CT Signed Leonardo Israel 11/04/23 00:00 Diagnostic Report, [facility] 11/03/23 00:00 Diagnostic Report, [facility] 10/31/23 16:57 Abdomen/Pelvis CT Signed Dakotah Bell 08/19/23 18:07 Abdomen/Pelvis CT Signed Leonardo Israel 08/19/23 13:14 Chest X-Ray Signed Mary Salinas 07/18/23 00:00 Diagnostic Report, [facility] 07/17/23 00:00 Diagnostic Report, [facility] 07/01/23 00:00 Diagnostic Report, [facility] 06/10/23 08:31 Guidance Fluoroscopy Signed Scott Hernandez 06/03/23 07:40 General Surgery Image ? 02/11/23 09:35 Guidance Fluoroscopy Signed Raquel Ruth 12/26/22 00:00 Diagnostic Report, [facility] 12/11/22 00:00 Diagnostic Report, [facility] 10/09/22 15:27 Mammogram Screening Signed Jacqueline Albert 03/29/22 00:00 Diagnostic Report, [facility] 09/27/21 12:23 Guidance Fluoroscopy Signed Leonardo Allan 09/13/21 14:25 Mammogram Diagnostic Signed Leonardo Allan 05/04/21 12:05 Abdomen/Pelvis CT Signed Francis Fry 01/10/21 13:00 Mammogram Diagnostic Signed John Thompson 01/10/21 13:00 Breast Ultrasound Signed John Thompson 12/05/20 00:00 Diagnostic Report, [facility] Rozina Lang [facility] Chest XRay Rozina Lang 11/27/20 00:00 Diagnostic Report, External Internal Medicine Marlyn Welaka Precious Abdomen Xray-Kalyn Pachecoi 11/02/20 00:00 Diagnostic Report, External DR Chest Routine 2 Views - Kalyn Choco Perry,Meliza Acute 53, F?1970 MRN#? [id number] ADM IN,?HO.S3??362?-1? 5ft 5in 116lb 13.52oz BSA: 1.56m? BMI: 19.4kg/m? Acc#? [id number] Full Code Historical Visits Allergies ibuprofen Unknown nifedipine hives, leg edema Problems ? ONSET Abdominal pain Acute blood loss anemia Anemia due to GI blood loss Syncope Schatzki's ring Marginal ulcer Gastritis Esophagitis End stage chronic kidney disease Severe anemia Acute upper gastrointestinal bleeding Upper GI bleeding Idiopathic hypotension ESRD on dialysis Moderate major depression Systolic murmur Malnutrition Diarrhea Pre-op examination Non-cardiac chest pain Polyp of right nasal cavity Numbness Palpitations Urinary and fecal incontinence Anxiety and depression Chronic low back pain Fatigue Nasal polyp, benign Anxiety and depression LLQ abdominal pain Tubular adenoma of colon Anxiety Chronic renal insufficiency History of sleeve gastrectomy Spinal stenosis 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 Pulse 69? Resp 18? Temp 98.1 F? O2 Sat 98? Delivery Room Air? Home Meds Confirmed Prescription Monitoring Program MEDICATIONS (INSTRUCTIONS) LAST TAKEN Active acetaminophen [Mapap (acetaminophen)] 1,000 [id number] Unknown Bariatric Multivitamins 1 capPODAILY 11/17/23 carvedilol 6.25 mgPOBID 11/17/23 citalopram 20 mg tablet 20 [id number] days#90 tabs 11/17/23 Clinisol SF 15 % 0.5 eaIVMOWEFR@89911/18/23 cyanocobalamin (vitamin B-12) 1,000 mcgPODAILY 11/17/23 ergocalciferol (vitamin D2) 1,250 mcg (50,000 unit) capsule 1,250 mcgPOSU@89911/16/23 ferrous sulfate 325 mg (65 mg iron) tablet,delayed release 325 mgPOBID 11/17/23 fluticasone propionate 1 sprayintranasalDAILYPRNAllergy Symptoms Unknown gabapentin 300 mg capsule 300 [id number] days#90 caps 11/17/23 meclizine 25 mgPOBID 11/17/23 melatonin 10 mg capsule 10 [id number] days#90 caps Unknown midodrine 5 mg tablet 5 mgPOTID 11/17/23 omeprazole 40 mgPOBID#60 caps 11/17/23 ondansetron 4 [id number] and vomiting#10 tabs Unknown pantoprazole 40 mgPODAILY 11/17/23 potassium chloride 20 meqPODAILY 11/17/23 pyridoxine (vitamin B6) 50 mg tablet 50 mgPODAILY 11/17/23 sucralfate 1 gPOQID 11/17/23 thiamine HCl (vitamin B1) 100 mg tablet 100 [id number] days#90 tabs 11/17/23 vitamin A 2,400 mcg capsule 2,400 [id number] days#90 caps 11/17/23 My Widget No Data to Display Diagnostics Reports Meliza Olguin??53??F??1970 ? Allergy/Adv: ibuprofen, nifedipine (More??) Close KUB X-Ray (Signed) Sheldon Portillo - 11/20/[address] (Signed) Sheldon Portillo - 11/20/[address] (Signed) Sheldon Portillo - 11/20/23 General Surgery Image 11/20/[address] (Cancelled) 11/20/[address] (Cancelled) 11/20/23 Abdomen/Pelvis CT (Signed) Leonardo Israel - 11/19/23 Diagnostic Report, External 11/04/23 Diagnostic Report, External 11/03/23 Abdomen/Pelvis CT (Signed) Dakotah Bell - 10/31/23 Abdomen/Pelvis CT (Signed) Leonardo Israel - 08/19/23 Chest X-Ray (Signed) Mary Salinas - 08/19/23 Diagnostic Report, External 07/18/23 Diagnostic Report, External 07/17/23 Diagnostic Report, External 07/01/23 Guidance Fluoroscopy (Signed) Scott Hernandez - 06/10/23 General Surgery Image 06/03/23 Guidance Fluoroscopy (Signed) Raquel Ruth - 02/11/23 Diagnostic Report, External 12/26/22 Diagnostic Report, External 12/11/22 Mammogram Screening (Signed) Jacqueline Albert - 10/09/22 Diagnostic Report, External 03/29/22 Guidance Fluoroscopy (Signed) Leonardo Allan - 09/27/21 Mammogram Diagnostic (Signed) Leonardo Allan - 09/13/21 Abdomen/Pelvis CT (Signed) Francis Fry - 05/04/21 Mammogram Diagnostic (Signed) John Thompson - 01/10/21 Breast Ultrasound (Signed) John Thompson - 01/10/21 Diagnostic Report, External Internal Medicine Rozina Lang - 12/05/20 Diagnostic Report, External Internal Medicine Rozina Lang - 11/27/20 Diagnostic Report, External 11/02/20 Launch?Image [place] [id number] XRay Report Signed Patient: Meliza Olguin MR#: [id number] : 1970 Acct:[id number] Age/Sex: 53 / F ADM Date: 11/19/23 Loc: HO.S3 362-[address]: Briana PARKER Ordering Physician: Irina Magana MD Date of Service: 11/20/23 Procedure(s): XR KUB Accession Number(s): [id number] cc: Irina Magana MD; Rozina Nicole MD~ EXAMINATION: XR ABDOMEN KUB CLINICAL INDICATION: Free air. Question extravasation of contrast. COMPARISON: Most recent CT abdomen dated 11/20/2023. TECHNIQUE: AP views of the abdomen. FINDINGS: Contrast now seen within the colon. No extraluminal contrast extravasation. Multiple small foci of free air redemonstrated within the upper abdomen. Mild prominence of the bowel loops which are air-filled, similar when compared to the prior CT. Postsurgical changes within the left upper quadrant and left lower quadrant are redemonstrated. Redemonstration of a peritoneal drainage catheter. XR/XR KUB IMPRESSION: 1. Contrast now seen within the colon. No extraluminal contrast extravasation. 2. Multiple small foci of free air redemonstrated within the upper abdomen. 3. Prominent air-filled bowel loops, similar when compared to the prior CT. 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 She is coming in with abdominal pain some of which is old and some of it which is new. The abdominal pain that she had may have been from some viral issue which caused her the nausea vomiting and diarrhea and that which may have led to the Tania-Dixon tear. The acute pain post EGD and procedure of clipping is still uncertain. Her hemodynamics are okay her abdominal exam does have tenderness but she was tender before as well. Free air seen now on CT scan is different and new compared to her CT scan done yesterday and preprocedure. Unsure the etiology of that. Maybe during the procedure manipulation and insufflation of the enteral passage with clip application may have caused a little micro per for and allow for translocation of some air. CT scan with p.o. contrast and a follow-up KUB several hours later did not reveal any extravasation of contrast. At this point the patient looks good and despite still having abdominal pain feels better. Pain that she had that was a little more significant postprocedure is not nearly as intense she says. She seems reliable. She does not want another operation and at this point I do not see any indication for an operation. We will plan on carrying out conservative care make her NPO IV fluids as per dialysis dependence IV Zosyn repeat blood work tomorrow. Patient is in agreement with this plan. This was discussed with the hospitalist team. This was also discussed with GI earlier Procedures Date of Service Date of Service: 11/20/23
[2023-11-21] VITALS (8 sets, daily range): BP systolic 90–123; BP diastolic 52–68; PULSE 63–88; RESP 16–20; TEMP 36.6–37.1; O2SAT 97–99; BMI 19.4
[2023-11-21] MEDS: ondansetron HCL 4 MG/2 ML VIAL IVPUSH ×2 (01:15→09:48)
[2023-11-21] MEDS: Morphine Sulfate 2 MG/ML CARTRIDGE 1 MG IVPUSH ×3 (01:15→12:49)
[2023-11-21 01:19] LABS: Appearance Urine Clear; Color Urine Yellow; Glucose Urine UA Negative (Negative); Leukocyte Esterase Urine Negative (Negative); Nitrite Urine Negative (Negative); PH 6.5 (5.0-9.0); Specific Gravity - Urine <= 1.005 (1.005-1.025); UMIC TRIGGER UACC YES; Urine Blood Negative (Negative); Urine Ketones Negative (Negative); Urine Protein 30 (1+) mg/dL (Neg-Trace)
[2023-11-21 01:25] LABS: Bacteria Urine None Seen (None Seen); Hyaline Casts Urine 0-2 /LPF (0-2); RBC Urine 0-2 /HPF (0-2); WBC Urine 0-5 /HPF (0-5)
--- NOTE | 2023-11-21 04:29 | PC.NURSE ---
Addendum entered by Neeta Levin RN 11/21/23 04:53: Pt noted to be asleep shortly after morphine administered. Original Note: Pt woke around 0330 and rang simon d/t increasing, sharp pain to upper abd. with position change in bed. Dr Gonsales notified via [employer] connect, okay to give next PRN morphine dose early. Morphine administered, will reassess.
[2023-11-21 06:39] LABS: Hematocrit 30.7 % (37.0-47.0); Hemoglobin 9.8 g/dl (12.0-16.0); Mean Corpuscular HGB Conc 31.9 g/dl (31.0-35.0); Mean Corpuscular Hemoglobin 28.2 pg (27.0-33.0); Mean Corpuscular Volume 88.5 fL (80.0-98.0); Mean Platelet Volume 10.2 fL (9.4-12.3); Platelet Count 219 X10*3/uL (160-400); Red Blood Count 3.47 X10*6/uL (4.20-5.50); Red Cell Distribution Width 15.7 % (11.0-16.0); White Blood Count 9.3 X10*3/uL (4.8-10.8)
[2023-11-21 07:17] LABS: Anion Gap 15 (12-20); Blood Urea Nitrogen 23 mg/dL (9-16); Calcium 9.3 mg/dL (8.4-10.2); Carbon Dioxide 19 mmol/L (22-29); Chloride 101 mmol/L (96-108); Creatinine Clr Calc Pharmacy 10.3; Estimated Glomerular Filt Rate 8; Glucose Random 68 mg/dL (60-115); Potassium 5.6 mmol/L (3.3-5.1); Sodium 129 mmol/L (135-145)
[2023-11-21] MEDS: Pantoprazole Sodium 40 MG/10 ML VIAL IVPUSH (07:35)
--- NOTE | 2023-11-21 07:37 | PC.NURSE ---
Pt instructed on strict NPO status , pt resting comfortable at this time will closely monitor
--- NOTE | 2023-11-21 08:18 | P.PNGS_ITS ---
Subjective Subjective Date of Service: 11/21/23 Interval history: Patient noted increased abdominal pain during the night but is much improved this morning. She is awaiting hemodialysis today. Physical Exam 2 Vital Signs: Vital Signs: Last Vital Signs Temp 97.8 F 11/21/23 07:10 Pulse 72 11/21/23 07:10 Resp 16 11/21/23 07:10 BP 123/68 11/21/23 07:10 Pulse Ox 97 11/21/23 07:10 O2 Del Method Room Air 11/21/23 07:10 BMI result Body Mass Index 19.4 Const: General: alert Nutritional Appearance: well nourished O rientation/consciousness: patient oriented x3 Resp: Effort & Inspection: normal respiratory effort GI: Other: Peritoneal dialysis catheter in place, no discharge Palpation (GI): Soft to palpation and Tenderness to palpation present (GI) in the RLQ Percussion: Yes normal to percussion Rectal Exam - Female: d eferred Skin: Other: Warm and dry Neuro: General: patient oriented x3 Objective Data Active Medications Acetaminophen (Acetaminophen 325 Mg Tablet) 650 mg PO Q6H PRN PRN Reason: Pain, Mild (Pain Scale 1-3), fever or headache Calamine (Calamine/Zinc Oxide Lotion 177 Ml Bottle) 1 appl TOPICAL Q3H PRN; Protocol PRN Reason: Itching Calcium Carbonate (Calcium Carbonate 750 Mg Tab.Chew) 750 mg PO Q4H PRN PRN Reason: Heartburn Carvedilol (Carvedilol 6.25 Mg Tablet) 6.25 mg PO BID [facility]; Protocol Last Admin: 11/20/23 21:30 Dose: Not Given Documented By: CAROLA Non-Admin Reason: NPO Ergocalciferol (Ergocalciferol (Vitamin D2) 1,250 Mcg Capsule) 1,250 mcg PO PLEITEZ@0900 [facility] Escitalopram Oxalate (Escitalopram Oxalate 10 Mg Tablet) 10 mg PO DAILY [facility] Last Admin: 11/20/23 09:35 Dose: 10 mg Documented By: SULLY Ferrous Sulfate (Ferrous Sulfate 324 Mg Tablet.) 324 mg PO BID [facility] Last Admin: 11/20/23 21:30 Dose: Not Given Documented By: CAROLA Non-Admin Reason: NPO Fluticasone Propionate (Fluticasone Propionate Nasal 16 Gm [place]) 1 spray NOSTRIL-B DAILY PRN PRN Reason: Allergy Symptoms Gabapentin (Gabapentin 300 Mg Capsule) 300 mg PO TID [facility] Last Admin: 11/20/23 21:30 Dose: Not Given Documented By: CAROLA Non-Admin Reason: NPO Piperacillin Sod/Tazobactam (Sod 4.5 gm/ Sodium Chloride) 100 mls @ 200 mls/hr IV Q12H [facility] Last Infusion: 11/20/23 21:53 Dose: Infused Documented By: CAROLA Meclizine HCl (Meclizine Hcl 25 Mg Tablet) 25 mg PO BID [facility] Last Admin: 11/20/23 21:30 Dose: Not Given Documented By: CAROLA Non-Admin Reason: NPO Melatonin (Melatonin 3 Mg Tablet) 6 mg PO BEDTIME PRN PRN Reason: Insomnia Midodrine (Midodrine Hcl 5 Mg Tablet) 5 mg PO TID [facility] Last Admin: 11/20/23 21:31 Dose: Not Given Documented By: CAROLA Non-Admin Reason: NPO Morphine Sulfate (Morphine Sulfate 2 Mg/Ml Cartridge) 1 mg IVPUSH Q4H PRN; Protocol PRN Reason: Pain, Severe (Pain Scale 7-10) Last Admin: 11/21/23 03:56 Dose: 1 mg Documented By: LUZ Comments: ok to give per Dr Gonsales Naloxone HCl (Naloxone Hcl 0.4 Mg/Ml Vial) 0.04 mg IVPUSH Q5M PRN PRN Reason: Excessive sedation or RR < 8 Omeprazole (Omeprazole 40 Mg Janine.) 40 mg PO BID@0630,1630 [facility] Last Admin: 11/21/23 06:03 Dose: Not Given Documented By: LUZ Non-Admin Reason: NPO Ondansetron HCl (Ondansetron Hcl 4 Mg/2 Ml Vial) 4 mg IVPUSH Q8H PRN PRN Reason: Nausea and Vomiting Last Admin: 11/21/23 01:15 Dose: 4 mg Documented By: LUZ Pantoprazole Sodium (Pantoprazole Sodium 40 Mg/10 Ml Vial) 40 mg IVPUSH BID@0630,1630 [facility] Last Admin: 11/21/23 07:35 Dose: 40 mg Documented By: EARNEST Pyridoxine HCl (Pyridoxine Hcl (Vitamin B6) 50 Mg Tablet) 50 mg PO DAILY [facility] Last Admin: 11/20/23 09:35 Dose: 50 mg Documented By: SULLY Sodium Chloride (0.9 % Sodium Chloride Flush 3 Ml Syringe) 3 ml IVFLUSH QSHIFT [facility] Last Admin: 11/21/23 07:10 Dose: Not Given Documented By: EARNEST Non-Admin Reason: IV Running Sucralfate (Sucralfate 1 Gm Tablet) 1 gm PO QID [facility] Last Admin: 11/20/23 21:32 Dose: Not Given Documented By: CAROLA Non-Admin Reason: NPO Thiamine HCl (Thiamine Hcl 100 Mg Tablet) 100 mg PO DAILY [facility] Last Admin: 11/20/23 09:35 Dose: 100 mg Documented By: SULLY Labs 11/21/23 05:19 11/21/23 05:19 Labs: Laboratory Results - last 24 hr 11/21/23 11/21/23 01:07 05:19 MCV 88.5 MCH 28.2 MCHC 31.9 RDW 15.7 Plt Count 219 MPV 10.2 Absolute Nucleated RBC 0.000 Nucleated RBC % (auto) 0.0 Anion Gap 15 Estim Creat Clear Calc 10.3 Estimated GFR 8 Random Glucose 68 Calcium 9.3 Urine Color Yellow Urine Appearance Clear Urine pH 6.5 Ur Specific [place] <= 1.005 Urine Protein 30 (1+) H Urine Glucose (UA) Negative Urine Ketones Negative Urine Blood Negative Urine Nitrite Negative Ur Leukocyte Esterase Negative Urine RBC 0-2 Urine WBC 0-5 Ur Squamous Epith Cells 11-20 Urine Bacteria None Seen Hyaline Casts 0-2 Procedures Date of Service Date of Service: 11/21/23 Progress Note: A&P Assessment and plan (1) Abdominal pain: Status: Acute (2) Free intraperitoneal air: Status: Acute Plan 53-year-old female patient with multiple medical problems, status post gastric bypass, peritoneal dialysis catheter placement, EGD for Tania-Dixon tear. Small amount of free intraperitoneal air was noted after the patient developed increased abdominal pain. No oral contrast extravasation was noted on the initial abdominal CT. This morning she feels improved with less abdominal pain but still has some tenderness in the right lower quadrant. Recommend repeating CT abdomen and pelvis to evaluate for progression of free intraperitoneal air. We will continue to monitor patient's abdominal exam. Time Spent With Patient Time: Total time managing care of this patient today ____ minutes. Quality Stroke Does the patient have a stroke diagnosis?: No VTE Prior VTE?: No VTE Risk Level:: Medical - moderate - high VTE Device Contraindication: N/A - Device Ordered VTE Drug Contraindication: Treatment Not Indicated
--- NOTE | 2023-11-21 08:41 | PC.NURSE ---
pt down for CT scan then will go to Dialysis after scan
--- NOTE | 2023-11-21 08:49 | HO.POSTANES ---
Post Anesthesia Evaluation Post Anesthesia Evaluation Date of Service: 11/20/23 Vital Signs: Vital Signs Temp Pulse Resp BP Pulse Ox O2 Del Method 11/21/23 07:10 97.8 F 72 16 123/68 97 Room Air 11/21/23 03:56 20 11/21/23 02:42 98.5 F 63 16 110/59 L 99 Room Air 11/21/23 01:15 18 11/20/23 23:27 98.2 F 82 16 121/69 99 Room Air 11/20/23 20:50 98.1 F 69 18 119/68 98 Room Air Anesthesia: Monitored Mental Status: Awake Pain Control: Satisfactory Nausea/Vomiting: None Hydration: Adequate Anesthesia-Related Issues: No Anes. Related Issues
[2023-11-21] MEDS: diphenhydrAMINE HCL 50 MG/ML VIAL 12.5 MG IVPUSH (09:48)
--- NOTE | 2023-11-21 12:19 | HO.PM.IMPN ---
Subjective Subjective Date of Service: 11/21/23 Interval History: Seen and examined this morning Follow-up for GI bleeding Status post EGD with multiple ulcers. Following procedure patient complained of significant abdominal pain, CT scan with contrast was obtained and showed concern for free air. Patient was evaluated by General surgery, did not appear to have acute surgical abdomen and planned for conservative management. This morning patient reports improvement in her abdominal pain although she does continue to have some tenderness in her lower abdomen. Review of Systems Review of Systems: Yes all other systems are reviewed and are negative Constitutional Constitutional: Denies chills and Denies fever(s) Physical Exam Vital Signs: Vital Signs: Last Vital Signs Temp 97.8 F 11/21/23 07:10 Pulse 72 11/21/23 07:10 Resp 16 11/21/23 07:10 BP 123/68 11/21/23 07:10 Pulse Ox 97 11/21/23 07:10 O2 Del Method Room Air 11/21/23 07:10 BMI result Body Mass Index 19.4 Const: General: comfortable, no acute distress, alert and awake Nutritional Appearance: thin Orientation/consciousness: patient oriented x3 Resp: Effort & Inspection: normal respiratory effort, able to speak in complete sentences, no respiratory distress and no use of accessory muscles Cardio: Rate: regular rate GI: Other: Peritoneal dialysis catheter present left lower quadrant Inspection: No distended Palpation (GI): Soft to palpation Neuro: General: patient oriented x3, moves all extremities and CN's II-XI intact bilaterally Extrem: Other: LUE AV fistula General: Yes no pedal edema Objective Data Active Medications Acetaminophen (Acetaminophen 325 Mg Tablet) 650 mg PO Q6H PRN PRN Reason: Pain, Mild (Pain Scale 1-3), fever or headache Calamine (Calamine/Zinc Oxide Lotion 177 Ml Bottle) 1 appl TOPICAL Q3H PRN; Protocol PRN Reason: Itching Calcium Carbonate (Calcium Carbonate 750 Mg Tab.Chew) 750 mg PO Q4H PRN PRN Reason: Heartburn Carvedilol (Carvedilol 6.25 Mg Tablet) 6.25 mg PO BID [facility]; Protocol Last Admin: 11/21/23 10:59 Dose: Not Given Documented By: MCGINNM Non-Admin Reason: NPO Ergocalciferol (Ergocalciferol (Vitamin D2) 1,250 Mcg Capsule) 1,250 mcg PO PLEITEZ@0900 [facility] Escitalopram Oxalate (Escitalopram Oxalate 10 Mg Tablet) 10 mg PO DAILY [facility] Last Admin: 11/21/23 10:59 Dose: Not Given Documented By: EARNEST Non-Admin Reason: NPO Ferrous Sulfate (Ferrous Sulfate 324 Mg Tablet.) 324 mg PO BID [facility] Last Admin: 11/21/23 10:59 Dose: Not Given Documented By: EARNEST Non-Admin Reason: NPO Fluticasone Propionate (Fluticasone Propionate Nasal 16 Gm [place]) 1 spray NOSTRIL-B DAILY PRN PRN Reason: Allergy Symptoms Gabapentin (Gabapentin 300 Mg Capsule) 300 mg PO TID [facility] Last Admin: 11/21/23 10:59 Dose: Not Given Documented By: EARNEST Non-Admin Reason: NPO Piperacillin Sod/Tazobactam (Sod 4.5 gm/ Sodium Chloride) 100 mls @ 200 mls/hr IV Q12H [facility] Last Infusion: 11/20/23 21:53 Dose: Infused Documented By: CAROLA Meclizine HCl (Meclizine Hcl 25 Mg Tablet) 25 mg PO BID [facility] Last Admin: 11/21/23 10:59 Dose: Not Given Documented By: EARNEST Non-Admin Reason: NPO Melatonin (Melatonin 3 Mg Tablet) 6 mg PO BEDTIME PRN PRN Reason: Insomnia Midodrine (Midodrine Hcl 5 Mg Tablet) 5 mg PO TID [facility] Last Admin: 11/21/23 10:59 Dose: Not Given Documented By: EARNEST Non-Admin Reason: NPO Morphine Sulfate (Morphine Sulfate 2 Mg/Ml Cartridge) 1 mg IVPUSH Q4H PRN; Protocol PRN Reason: Pain, Severe (Pain Scale 7-10) Last Admin: 11/21/23 03:56 Dose: 1 mg Documented By: LUZ Comments: ok to give per Dr Gonsales Naloxone HCl (Naloxone Hcl 0.4 Mg/Ml Vial) 0.04 mg IVPUSH Q5M PRN PRN Reason: Excessive sedation or RR < 8 Omeprazole (Omeprazole 40 Mg Capsule.) 40 mg PO BID@0630,1630 [facility] Last Admin: 11/21/23 06:03 Dose: Not Given Documented By: LUZ Non-Admin Reason: NPO Ondansetron HCl (Ondansetron Hcl 4 Mg/2 Ml Vial) 4 mg IVPUSH Q8H PRN PRN Reason: Nausea and Vomiting Last Admin: 11/21/23 09:48 Dose: 4 mg Documented By: EARNEST Pantoprazole Sodium (Pantoprazole Sodium 40 Mg/10 Ml Vial) 40 mg IVPUSH BID@0630,1630 [facility] Last Admin: 11/21/23 07:35 Dose: 40 mg Documented By: EARNEST Pyridoxine HCl (Pyridoxine Hcl (Vitamin B6) 50 Mg Tablet) 50 mg PO DAILY [facility] Last Admin: 11/21/23 11:00 Dose: Not Given Documented By: EARNEST Non-Admin Reason: NPO Sodium Chloride (0.9 % Sodium Chloride Flush 3 Ml Syringe) 3 ml IVFLUSH QSHIFT [facility] Last Admin: 11/21/23 07:10 Dose: Not Given Documented By: EARNEST Non-Admin Reason: IV Running Sucralfate (Sucralfate 1 Gm Tablet) 1 gm PO QID [facility] Last Admin: 11/21/23 11:00 Dose: Not Given Documented By: EARNEST Non-Admin Reason: NPO Thiamine HCl (Thiamine Hcl 100 Mg Tablet) 100 mg PO DAILY [facility] Last Admin: 11/21/23 11:00 Dose: Not Given Documented By: EARNEST Non-Admin Reason: NPO Labs 11/21/23 05:19 11/21/23 05:19 Labs: Laboratory Results - last 24 hr 11/21/23 11/21/23 01:07 05:19 MCV 88.5 MCH 28.2 MCHC 31.9 RDW 15.7 Plt Count 219 MPV 10.2 Absolute Nucleated RBC 0.000 Nucleated RBC % (auto) 0.0 Anion Gap 15 Estim Creat Clear Calc 10.3 Estimated GFR 8 Random Glucose 68 Calcium 9.3 Urine Color Yellow Urine Appearance Clear Urine pH 6.5 Ur Specific [place] <= 1.005 Urine Protein 30 (1+) H Urine Glucose (UA) Negative Urine Ketones Negative Urine Blood Negative Urine Nitrite Negative Ur Leukocyte Esterase Negative Urine RBC 0-2 Urine WBC 0-5 Ur Squamous Epith Cells 11-20 Urine Bacteria None Seen Hyaline Casts 0-2 Assessment and Plan (1) Free intraperitoneal air: Status: Acute (2) Abdominal pain: Status: Acute (3) Anemia due to GI blood loss: Status: Acute Plan 53-year-old woman with a history of end-stage renal disease and bleeding ulcer admitted with nausea vomiting and diarrhea with melanotic stools and coffee-ground emesis and missed dialysis. Acute GI bleed with melena and coffee-ground emesis No further bleeding H/H stable Seen by GI-status post EGD with multiple ulcers, see surgical note for full details. Recommend omeprazole b.i.d. (currently getting IV pantoprazole until able to take p.o.) Acute abdominal pain Began after EGD CT scan showing Small amount of free intraperitoneal air No oral contrast extravasation was noted. repeating CT abdomen and pelvis to evaluate for progression of free intraperitoneal air Surgery following Remains NPO Continue empiric Zosyn End-stage renal disease on dialysis Friday, Friday and Friday s/p HD Continue midodrine Follows with Dr. Rider Potassium replacement stopped, unclear why this was on medication list Hyperkalemia Due to underlying renal disease, will improve after dialysis Hypertension continue carvedilol Mental health Continue home medications History of spinal stenosis and radiculopathy Continue gabapentin DVT prophylaxis-mechanical devices due to GI bleeding Full code Patient requires ongoing inpatient stay for further management of GI bleeding including plan for EGD and colonoscopy, specialist evaluation, close monitoring of abdominal exam Quality Stroke Does the patient have a stroke diagnosis?: No VTE Prior VTE?: No VTE Risk Level:: Medical - moderate - high VTE Device Contraindication: N/A - Device Ordered VTE Drug Contraindication: Treatment Not Indicated
[2023-11-21] MEDS: Piperacillin Sodium/Tazobactam 4.5 GM in 0.9 % Sodium Chloride 100 ML IV (12:42)
[2023-11-21] MEDS: Omeprazole 40 MG CAPSULE.DR PO (16:18)
[2023-11-21] MEDS: Midodrine HCl 5 MG TABLET PO ×2 (16:18→20:29)
[2023-11-21] MEDS: Gabapentin 300 MG CAPSULE PO ×2 (16:18→20:29)
[2023-11-21] MEDS: Sucralfate 1 GM TABLET PO ×2 (16:18→20:29)
[2023-11-21] MEDS: 0.9 % Sodium Chloride Flush 3 ML SYRINGE IVFLUSH ×2 (16:19→20:32)
[2023-11-21] MEDS: Ferrous Sulfate 324 MG TABLET.DR PO (20:29)
[2023-11-21] MEDS: carvediloL 6.25 MG TABLET PO (20:29)
[2023-11-21] MEDS: Meclizine HCl 25 MG TABLET PO (20:29)
[2023-11-21] MEDS: Melatonin 3 MG TABLET 6 MG PO (20:37)
[2023-11-22] MEDS: Piperacillin Sodium/Tazobactam 4.5 GM in 0.9 % Sodium Chloride 100 ML IV ×3 (01:39→23:45)
[2023-11-22] MEDS: Morphine Sulfate 2 MG/ML CARTRIDGE 1 MG IVPUSH ×2 (01:46→14:38)
[2023-11-22 03:55] VITALS: BP 120/62; PULSE 80; RESP 17; TEMP 36.8; O2SAT 98
[2023-11-22] MEDS: Omeprazole 40 MG CAPSULE.DR PO ×2 (05:43→15:55)
[2023-11-22 07:19] LABS: Hematocrit 27.3 % (37.0-47.0); Hemoglobin 8.9 g/dl (12.0-16.0); Mean Corpuscular HGB Conc 32.6 g/dl (31.0-35.0); Mean Corpuscular Hemoglobin 27.9 pg (27.0-33.0); Mean Corpuscular Volume 85.6 fL (80.0-98.0); Mean Platelet Volume 10.9 fL (9.4-12.3); Platelet Count 210 X10*3/uL (160-400); Red Blood Count 3.19 X10*6/uL (4.20-5.50); Red Cell Distribution Width 15.4 % (11.0-16.0); White Blood Count 9.4 X10*3/uL (4.8-10.8)
[2023-11-22 07:34] LABS: Anion Gap 12 (12-20); Blood Urea Nitrogen 16 mg/dL (9-16); Calcium 9.5 mg/dL (8.4-10.2); Carbon Dioxide 26 mmol/L (22-29); Chloride 97 mmol/L (96-108); Creatinine Clr Calc Pharmacy 11.6; Estimated Glomerular Filt Rate 10; Glucose Random 79 mg/dL (60-115); Sodium 131 mmol/L (135-145)
[2023-11-22 07:57] VITALS: BP 91/53; PULSE 71; RESP 17; TEMP 37.6; O2SAT 96
[2023-11-22] MEDS: 0.9 % Sodium Chloride Flush 3 ML SYRINGE IVFLUSH ×3 (08:24→20:47)
[2023-11-22] MEDS: Midodrine HCl 5 MG TABLET PO ×3 (08:25→20:43)
[2023-11-22] MEDS: Ferrous Sulfate 324 MG TABLET.DR PO ×2 (08:25→20:44)
[2023-11-22] MEDS: Pyridoxine HCl (Vitamin B6) 50 MG TABLET PO (08:25)
[2023-11-22] MEDS: Escitalopram Oxalate 10 MG TABLET PO (08:26)
[2023-11-22] MEDS: Thiamine HCL 100 MG TABLET PO (08:26)
[2023-11-22] MEDS: Gabapentin 300 MG CAPSULE PO ×3 (08:26→20:43)
[2023-11-22] MEDS: Meclizine HCl 25 MG TABLET PO ×2 (08:26→20:43)
[2023-11-22] MEDS: Sucralfate 1 GM TABLET PO ×4 (08:26→20:43)
--- NOTE | 2023-11-22 09:17 | PM.PNGS ---
Subjective Subjective Date of Service: 11/22/23 Interval history: Patient feels much improved today with no further abdominal pain. She tolerated liquids without nausea or vomiting. Physical Exam Vital Signs: Vital Signs: Last Vital Signs Temp 99.6 F 11/22/23 07:57 Pulse 71 11/22/23 07:57 Resp 17 11/22/23 07:57 BP 91/53 L 11/22/23 07:57 Pulse Ox 96 11/22/23 07:57 O2 Del Method Room Air 11/22/23 07:57 BMI result Body Mass Index 19.4 Const: General: comfortable Nutritional Appearance: average body habitus Orientation/consciousness: patient oriented x3 Resp: Effort & Inspection: normal respiratory effort GI: Inspection: Yes normal to inspection Palpation (GI): Soft to palpation, nontender, no guarding and not rigid Skin: General skin exam: dry skin Neuro: General: patient oriented x3 Objective Data Active Medications Acetaminophen (Acetaminophen 325 Mg Tablet) 650 mg PO Q6H PRN PRN Reason: Pain, Mild (Pain Scale 1-3), fever or headache Calamine (Calamine/Zinc Oxide Lotion 177 Ml Bottle) 1 appl TOPICAL Q3H PRN; Protocol PRN Reason: Itching Calcium Carbonate (Calcium Carbonate 750 Mg Tab.Chew) 750 mg PO Q4H PRN PRN Reason: Heartburn Carvedilol (Carvedilol 6.25 Mg Tablet) 6.25 mg PO BID [facility]; Protocol Last Admin: 11/22/23 08:58 Dose: Not Given Documented By: BRE Non-Admin Reason: hold per [employer] Ergocalciferol (Ergocalciferol (Vitamin D2) 1,250 Mcg Capsule) 1,250 mcg PO PLEITEZ@0900 [facility] Escitalopram Oxalate (Escitalopram Oxalate 10 Mg Tablet) 10 mg PO DAILY [facility] Last Admin: 11/22/23 08:26 Dose: 10 mg Documented By: BRE Ferrous Sulfate (Ferrous Sulfate 324 Mg Tablet.) 324 mg PO BID [facility] Last Admin: 11/22/23 08:25 Dose: 324 mg Documented By: BRE Fluticasone Propionate (Fluticasone Propionate Nasal 16 Gm [place]) 1 spray NOSTRIL-B DAILY PRN PRN Reason: Allergy Symptoms Gabapentin (Gabapentin 300 Mg Capsule) 300 mg PO TID [facility] Last Admin: 11/22/23 08:26 Dose: 300 mg Documented By: BRE Piperacillin Sod/Tazobactam (Sod 4.5 gm/ Sodium Chloride) 100 mls @ 200 mls/hr IV Q12H [facility] Last Infusion: 11/22/23 02:35 Dose: Infused Documented By: LUANA Meclizine HCl (Meclizine Hcl 25 Mg Tablet) 25 mg PO BID [facility] Last Admin: 11/22/23 08:26 Dose: 25 mg Documented By: BRE Melatonin (Melatonin 3 Mg Tablet) 6 mg PO BEDTIME PRN PRN Reason: Insomnia Last Admin: 11/21/23 20:37 Dose: 6 mg Documented By: LUANA Midodrine (Midodrine Hcl 5 Mg Tablet) 5 mg PO TID [facility] Last Admin: 11/22/23 08:25 Dose: 5 mg Documented By: BRE Morphine Sulfate (Morphine Sulfate 2 Mg/Ml Cartridge) 1 mg IVPUSH Q4H PRN; Protocol PRN Reason: Pain, Severe (Pain Scale 7-10) Last Admin: 11/22/23 01:46 Dose: 1 mg Documented By: LUANA Naloxone HCl (Naloxone Hcl 0.4 Mg/Ml Vial) 0.04 mg IVPUSH Q5M PRN PRN Reason: Excessive sedation or RR < 8 Omeprazole (Omeprazole 40 Mg Capsule.Dr) 40 mg PO BID@0630,1630 [facility] Last Admin: 11/22/23 05:43 Dose: 40 mg Documented By: LUANA Ondansetron HCl (Ondansetron Hcl 4 Mg/2 Ml Vial) 4 mg IVPUSH Q8H PRN PRN Reason: Nausea and Vomiting Last Admin: 11/21/23 09:48 Dose: 4 mg Documented By: EARNEST Pyridoxine HCl (Pyridoxine Hcl (Vitamin B6) 50 Mg Tablet) 50 mg PO DAILY [facility] Last Admin: 11/22/23 08:25 Dose: 50 mg Documented By: BRE Sodium Chloride (0.9 % Sodium Chloride Flush 3 Ml Syringe) 3 ml IVFLUSH QSHIFT [facility] Last Admin: 11/22/23 08:24 Dose: 3 ml Documented By: BRE Sucralfate (Sucralfate 1 Gm Tablet) 1 gm PO QID [facility] Last Admin: 11/22/23 08:26 Dose: 1 gm Documented By: BRE Thiamine HCl (Thiamine Hcl 100 Mg Tablet) 100 mg PO DAILY [facility] Last Admin: 11/22/23 08:26 Dose: 100 mg Documented By: BRE Labs 11/22/23 06:18 11/22/23 06:18 Labs: Laboratory Results - last 24 hr 11/22/23 06:18 MCV 85.6 MCH 27.9 MCHC 32.6 RDW 15.4 Plt Count 210 MPV 10.9 Absolute Nucleated RBC 0.000 Nucleated RBC % (auto) 0.0 Anion Gap 12 Estim Creat Clear Calc 11.6 Estimated GFR 10 Random Glucose 79 Calcium 9.5 Procedures Date of Service Date of Service: 11/22/23 Progress Note: A&P Assessment and plan (1) Free intraperitoneal air: Status: Acute (2) Abdominal pain: Status: Acute Plan 53-year-old female patient found to have Tania-Dixon tear on upper endoscopy, developed increased abdominal pain post endoscopy found to have free intraperitoneal air. Repeat CT revealed decreased intraperitoneal air. Overall the patient is much improved no further abdominal pain. Agree with advancing her diet to regular. If this is well-tolerated, plan discharge to home. The patient understands and agrees with the plan. Time Spent With Patient Time: Total time managing care of this patient today ____ minutes. Quality Stroke Does the patient have a stroke diagnosis?: No VTE Prior VTE?: No VTE Risk Level:: Medical - moderate - high VTE Device Contraindication: N/A - Device Ordered VTE Drug Contraindication: Treatment Not Indicated
--- NOTE | 2023-11-22 13:58 | P.PNIM_ITS ---
Subjective Subjective Date of Service: 11/22/23 Interval History: Seen and examined this morning Follow-up for GI bleeding Status post EGD with multiple ulcers. Following procedure patient complained of significant abdominal pain, CT scan with contrast was obtained and showed concern for free air. Patient was evaluated by General surgery, did not appear to have acute surgical abdomen and planned for conservative management. This morning patient reports improvement in her abdominal pain although she does continue to have some tenderness in her lower abdomen. Review of Systems Review of Systems: Yes all other systems are reviewed and are negative Constitutional Constitutional: Denies chills and Denies fever(s) Physical Exam 2 Vital Signs: Vital Signs: Last Vital Signs Temp 99.6 F 11/22/23 07:57 Pulse 71 11/22/23 07:57 Resp 17 11/22/23 07:57 BP 91/53 L 11/22/23 07:57 Pulse Ox 96 11/22/23 07:57 O2 Del Method Room Air 11/22/23 07:57 BMI result Body Mass Index 19.4 Appearing in no acute distress lung sounds are clear to auscultation heart regular rate rhythm, clear S1, S2 positive bowel sounds, abdomen is soft, nontender neuro patient is alert x3, no focal deficits Objective Data Active Medications Acetaminophen (Acetaminophen 325 Mg Tablet) 650 mg PO Q6H PRN PRN Reason: Pain, Mild (Pain Scale 1-3), fever or headache Calamine (Calamine/Zinc Oxide Lotion 177 Ml Bottle) 1 appl TOPICAL Q3H PRN; Protocol PRN Reason: Itching Calcium Carbonate (Calcium Carbonate 750 Mg Tab.Chew) 750 mg PO Q4H PRN PRN Reason: Heartburn Carvedilol (Carvedilol 6.25 Mg Tablet) 6.25 mg PO BID [facility]; Protocol Last Admin: 11/22/23 08:58 Dose: Not Given Documented By: BRE Non-Admin Reason: hold per [employer]IC Ergocalciferol (Ergocalciferol (Vitamin D2) 1,250 Mcg Capsule) 1,250 mcg PO PLEITEZ@0900 [facility] Escitalopram Oxalate (Escitalopram Oxalate 10 Mg Tablet) 10 mg PO DAILY [facility] Last Admin: 11/22/23 08:26 Dose: 10 mg Documented By: BRE Ferrous Sulfate (Ferrous Sulfate 324 Mg Tablet.) 324 mg PO BID [facility] Last Admin: 11/22/23 08:25 Dose: 324 mg Documented By: BRE Fluticasone Propionate (Fluticasone Propionate Nasal 16 Gm [place]) 1 spray NOSTRIL-B DAILY PRN PRN Reason: Allergy Symptoms Gabapentin (Gabapentin 300 Mg Capsule) 300 mg PO TID [facility] Last Admin: 11/22/23 08:26 Dose: 300 mg Documented By: BRE Piperacillin Sod/Tazobactam (Sod 4.5 gm/ Sodium Chloride) 100 mls @ 200 mls/hr IV Q12H [facility] Last Infusion: 11/22/23 12:18 Dose: Infused Documented By: BRE Meclizine HCl (Meclizine Hcl 25 Mg Tablet) 25 mg PO BID [facility] Last Admin: 11/22/23 08:26 Dose: 25 mg Documented By: BRE Melatonin (Melatonin 3 Mg Tablet) 6 mg PO BEDTIME PRN PRN Reason: Insomnia Last Admin: 11/21/23 20:37 Dose: 6 mg Documented By: LUANA Midodrine (Midodrine Hcl 5 Mg Tablet) 5 mg PO TID [facility] Last Admin: 11/22/23 08:25 Dose: 5 mg Documented By: BRE Morphine Sulfate (Morphine Sulfate 2 Mg/Ml Cartridge) 1 mg IVPUSH Q4H PRN; Protocol PRN Reason: Pain, Severe (Pain Scale 7-10) Last Admin: 11/22/23 01:46 Dose: 1 mg Documented By: LUANA Naloxone HCl (Naloxone Hcl 0.4 Mg/Ml Vial) 0.04 mg IVPUSH Q5M PRN PRN Reason: Excessive sedation or RR < 8 Omeprazole (Omeprazole 40 Mg Capsule.) 40 mg PO BID@0630,1630 [facility] Last Admin: 11/22/23 05:43 Dose: 40 mg Documented By: LUANA Ondansetron HCl (Ondansetron Hcl 4 Mg/2 Ml Vial) 4 mg IVPUSH Q8H PRN PRN Reason: Nausea and Vomiting Last Admin: 11/21/23 09:48 Dose: 4 mg Documented By: EARNEST Pyridoxine HCl (Pyridoxine Hcl (Vitamin B6) 50 Mg Tablet) 50 mg PO DAILY [facility] Last Admin: 11/22/23 08:25 Dose: 50 mg Documented By: BRE Sodium Chloride (0.9 % Sodium Chloride Flush 3 Ml Syringe) 3 ml IVFLUSH QSHIFT [facility] Last Admin: 11/22/23 08:24 Dose: 3 ml Documented By: BRE Sucralfate (Sucralfate 1 Gm Tablet) 1 gm PO QID [facility] Last Admin: 11/22/23 12:24 Dose: 1 gm Documented By: BRE Thiamine HCl (Thiamine Hcl 100 Mg Tablet) 100 mg PO DAILY [facility] Last Admin: 11/22/23 08:26 Dose: 100 mg Documented By: BRE Labs 11/22/23 06:18 11/22/23 06:18 Labs: Laboratory Results - last 24 hr 11/22/23 06:18 MCV 85.6 MCH 27.9 MCHC 32.6 RDW 15.4 Plt Count 210 MPV 10.9 Absolute Nucleated RBC 0.000 Nucleated RBC % (auto) 0.0 Anion Gap 12 Estim Creat Clear Calc 11.6 Estimated GFR 10 Random Glucose 79 Calcium 9.5 Assessment and Plan (1) Free intraperitoneal air: Status: Acute (2) Abdominal pain: Status: Acute (3) Anemia due to GI blood loss: Status: Acute Plan 53-year-old woman with a history of end-stage renal disease and bleeding ulcer admitted with nausea vomiting and diarrhea with melanotic stools and coffee- ground emesis and missed dialysis. Acute GI bleed with melena and coffee-ground emesis No further bleeding H/H stable Seen by GI-status post EGD with multiple ulcers, see surgical note for full details. Recommend omeprazole b.i.d. (currently getting IV pantoprazole until able to take p.o.) Acute abdominal pain. Resolved Began after EGD CT scan showing Small amount of free intraperitoneal air No oral contrast extravasation was noted. repeating CT abdomen and pelvis to evaluate for progression of free intraperitoneal air Surgery following Continue empiric Zosyn Diet advanced End-stage renal disease on dialysis Friday, Friday and Friday s/p HD Continue midodrine Follows with Dr. Rider Potassium replacement stopped, unclear why this was on medication list Hyperkalemia Due to underlying renal disease, will improve after dialysis Hypertension continue carvedilol Mental health Continue home medications History of spinal stenosis and radiculopathy Continue gabapentin DVT prophylaxis-mechanical devices due to GI bleeding Full code Patient requires ongoing inpatient stay for further management of GI bleeding including plan for EGD and colonoscopy, specialist evaluation, close monitoring of abdominal exam Quality Stroke Does the patient have a stroke diagnosis?: No VTE Prior VTE?: No VTE Risk Level:: Medical - moderate - high VTE Device Contraindication: N/A - Device Ordered VTE Drug Contraindication: Treatment Not Indicated
[2023-11-22 14:08] VITALS: BP 112/61
[2023-11-22 15:45] VITALS: BP 117/64; PULSE 72; RESP 18; TEMP 36.9; O2SAT 96
--- NOTE | 2023-11-22 16:15 | MHC.CM.PN ---
PT REPORTS SHE LIVES ALONE AND IS INDEPENDENT WITH SELF CARE SHE USES A CANE TO AMBULATE AND IS ACTIVE WITH [facility] PT ATTENDS HD AT [facility] HCP ON FILE AND VERIFIED PCP: [facility]IG[facility] GUNN IMM DELIVERED DCP: HOME WITH RESUMPTION OF VNA AND HD SISTER TO TRANSPORT
[2023-11-22 20:00] VITALS: BP 113/55; PULSE 74; RESP 15; TEMP 37.4; O2SAT 95
[2023-11-22] MEDS: carvediloL 6.25 MG TABLET PO (20:43)
[2023-11-22] MEDS: Melatonin 3 MG TABLET 6 MG PO (20:49)
[2023-11-23 04:00] VITALS: BP 97/52; PULSE 63; RESP 15; TEMP 36.8; O2SAT 96
[2023-11-23] MEDS: Omeprazole 40 MG CAPSULE.DR PO (05:41)
[2023-11-23 08:00] VITALS: BP 96/55; PULSE 58; RESP 16; TEMP 36.3; O2SAT 99
[2023-11-23] MEDS: 0.9 % Sodium Chloride Flush 3 ML SYRINGE IVFLUSH (08:05)
[2023-11-23] MEDS: Meclizine HCl 25 MG TABLET PO (08:06)
[2023-11-23] MEDS: Ergocalciferol (Vitamin D2) 1,250 MCG CAPSULE 1250 MCG PO (08:06)
[2023-11-23] MEDS: Ferrous Sulfate 324 MG TABLET.DR PO (08:06)
[2023-11-23] MEDS: Pyridoxine HCl (Vitamin B6) 50 MG TABLET PO (08:06)
[2023-11-23] MEDS: Sucralfate 1 GM TABLET PO ×2 (08:06→12:35)
[2023-11-23] MEDS: Gabapentin 300 MG CAPSULE PO (08:06)
[2023-11-23] MEDS: Midodrine HCl 5 MG TABLET PO (08:06)
[2023-11-23] MEDS: Escitalopram Oxalate 10 MG TABLET PO (08:06)
[2023-11-23] MEDS: Thiamine HCL 100 MG TABLET PO (08:06)
--- NOTE | 2023-11-23 09:19 | PM.PNGS ---
Subjective Subjective Date of Service: 11/23/23 Interval history: Patient with no complaints this morning, tolerating p.o. without increased pain, nausea or vomiting. Physical Exam Vital Signs: Vital Signs: Last Vital Signs Temp 97.3 F 11/23/23 08:00 Pulse 58 11/23/23 08:00 Resp 16 11/23/23 08:00 BP 96/55 L 11/23/23 08:00 Pulse Ox 99 11/23/23 08:00 O2 Del Method Room Air 11/23/23 08:00 BMI result Body Mass Index 19.4 Const: General: comfortable Nutritional Appearance: average body habitus Orientation/consciousness: patient oriented x3 Resp: Effort & Inspection: normal respiratory effort GI: Inspection: Yes normal to inspection Palpation (GI): Soft to palpation, nontender, no guarding and not rigid Skin: General skin exam: dry skin Neuro: General: patient oriented x3 Objective Data Active Medications Acetaminophen (Acetaminophen 325 Mg Tablet) 650 mg PO Q6H PRN PRN Reason: Pain, Mild (Pain Scale 1-3), fever or headache Calamine (Calamine/Zinc Oxide Lotion 177 Ml Bottle) 1 appl TOPICAL Q3H PRN; Protocol PRN Reason: Itching Calcium Carbonate (Calcium Carbonate 750 Mg Tab.Chew) 750 mg PO Q4H PRN PRN Reason: Heartburn Carvedilol (Carvedilol 6.25 Mg Tablet) 6.25 mg PO BID [facility]; Protocol Last Admin: 11/23/23 08:07 Dose: Not Given Documented By: BRE Non-Admin Reason: HR 58 Ergocalciferol (Ergocalciferol (Vitamin D2) 1,250 Mcg Capsule) 1,250 mcg PO PLEITEZ@0900 [facility] Last Admin: 11/23/23 08:06 Dose: 1,250 mcg Documented By: BRE Escitalopram Oxalate (Escitalopram Oxalate 10 Mg Tablet) 10 mg PO DAILY [facility] Last Admin: 11/23/23 08:06 Dose: 10 mg Documented By: BRE Ferrous Sulfate (Ferrous Sulfate 324 Mg Tablet.) 324 mg PO BID [facility] Last Admin: 11/23/23 08:06 Dose: 324 mg Documented By: BRE Fluticasone Propionate (Fluticasone Propionate Nasal 16 [place]m [place]) 1 spray NOSTRIL-B DAILY PRN PRN Reason: Allergy Symptoms Gabapentin (Gabapentin 300 Mg Capsule) 300 mg PO TID [facility] Last Admin: 11/23/23 08:06 Dose: 300 mg Documented By: BRE Piperacillin Sod/Tazobactam (Sod 4.5 gm/ Sodium Chloride) 100 mls @ 200 mls/hr IV Q12H [facility] Last Infusion: 11/23/23 00:33 Dose: Infused Documented By: LUANA Meclizine HCl (Meclizine Hcl 25 Mg Tablet) 25 mg PO BID [facility] Last Admin: 11/23/23 08:06 Dose: 25 mg Documented By: BRE Melatonin (Melatonin 3 Mg Tablet) 6 mg PO BEDTIME PRN PRN Reason: Insomnia Last Admin: 11/22/23 20:49 Dose: 6 mg Documented By: LUANA Midodrine (Midodrine Hcl 5 Mg Tablet) 5 mg PO TID [facility] Last Admin: 11/23/23 08:06 Dose: 5 mg Documented By: BRE Morphine Sulfate (Morphine Sulfate 2 Mg/Ml Cartridge) 1 mg IVPUSH Q4H PRN; Protocol PRN Reason: Pain, Severe (Pain Scale 7-10) Last Admin: 11/22/23 14:38 Dose: 1 mg Documented By: BRE Naloxone HCl (Naloxone Hcl 0.4 Mg/Ml Vial) 0.04 mg IVPUSH Q5M PRN PRN Reason: Excessive sedation or RR < 8 Omeprazole (Omeprazole 40 Mg Capsule.Dr) 40 mg PO BID@0630,1630 [facility] Last Admin: 11/23/23 05:41 Dose: 40 mg Documented By: LUANA Ondansetron HCl (Ondansetron Hcl 4 Mg/2 Ml Vial) 4 mg IVPUSH Q8H PRN PRN Reason: Nausea and Vomiting Last Admin: 11/21/23 09:48 Dose: 4 mg Documented By: ANUSHANM Pyridoxine HCl (Pyridoxine Hcl (Vitamin B6) 50 Mg Tablet) 50 mg PO DAILY [facility] Last Admin: 11/23/23 08:06 Dose: 50 mg Documented By: BRE Sodium Chloride (0.9 % Sodium Chloride Flush 3 Ml Syringe) 3 ml IVFLUSH QSHIFT [facility] Last Admin: 11/23/23 08:05 Dose: 3 ml Documented By: BRE Sucralfate (Sucralfate 1 Gm Tablet) 1 gm PO QID [facility] Last Admin: 11/23/23 08:06 Dose: 1 gm Documented By: BRE Thiamine HCl (Thiamine Hcl 100 Mg Tablet) 100 mg PO DAILY [facility] Last Admin: 11/23/23 08:06 Dose: 100 mg Documented By: BRE Labs 11/22/23 06:18 11/22/23 06:18 Labs: Laboratory Results - last 24 hr 11/23/23 07:37 Hold Purple Top SEE NOTE Procedures Date of Service Date of Service: 11/23/23 Progress Note: A&P Assessment and plan (1) Free intraperitoneal air: Status: Acute (2) Abdominal pain: Status: Acute Plan 53-year-old female patient found to have Tania-Dixon tear on upper endoscopy, developed increased abdominal pain post endoscopy found to have free intraperitoneal air. Repeat CT revealed decreased intraperitoneal air. Overall the patient is much improved no further abdominal pain. No surgical intervention recommended. We will sign off; please reconsult for new concerns. Time Spent With Patient Time: Total time managing care of this patient today ____ minutes. Quality Stroke Does the patient have a stroke diagnosis?: No VTE Prior VTE?: No VTE Risk Level:: Medical - moderate - high VTE Device Contraindication: N/A - Device Ordered VTE Drug Contraindication: Treatment Not Indicated
[2023-11-23 09:28] LABS: Sodium 132 mmol/L (135-145)
--- NOTE | 2023-11-23 09:56 | P.DS_ITS ---
DS: Providers Provider Date of Service: 11/23/23 Date of admission: 11/19/23 09:51 Primary care physician: Rozina Lang MD Consults: 11/19/23 09:28 Consult to Gastroenterology Stat Consulting Provider: Brandan Dixon Reason for consultation: UGIB Consult to Nephrology Stat Consulting Provider: Placido Rider Reason for consultation: ESRD on HD Has provider been notified: Yes 11/20/23 20:45 Consult to General Surgery Stat Consulting Provider: [facility] General Surgeons Reason for consultation: Free air in abdomen, ?perf DS: Diagnosis Discharge Diagnosis (1) Free intraperitoneal air: Status: Acute (2) Abdominal pain: Status: Acute DS: Summary Hospital Course Hospital Course: History and physical as per admitting provider. 53-year-old woman with a history of end-stage renal disease on hemodialysis presented with coffee-ground emesis and melanotic stools for the last 24-48 hours. She reported having at least 20 episodes of dark-colored vomitus, lower abdominal cramping an 8/10 pain. She denied any chest pain, shortness breath, fever, chills, recent illness, sick contacts. She is not on any anticoagulation and reports not taken any NSAIDs. She denies alcohol use as well. She reports compliance with her PPI. Last dialysis was on Friday, did not have dialysis on Friday. Reported nausea, vomiting and diarrhea on Friday. She presented to dialysis today but still had GI issues and was sent to the ER for further evaluation. Creatinine 6.54, sodium 134, stool occult positive. Plan will be to admit patient for inpatient dialysis and further management of GI bleed. 53-year-old woman treated for acute GI bleed with melena coffee-ground emesis. She was seen by Gastroenterology and is status post EGD, found to have multiple ulcers, small Tania-Dixon tear, Schatzki's ring and gastritis. plan is to continue omeprazole twice daily and smoking cessation has been advised. After EGD she began to have abdominal pain, she had CT scan showing small amount of free intraperitoneal air, seen evaluated by general surgeon who did not think this was a perforated viscus, patient was treated with IV Zosyn, diet advanced to regular and she has done well since. History of end-stage renal disease on dialysis Friday, Friday and Dave. Continue midodrine for hypotension, follow with outpatient Nephrology. Hyperkalemia. Due to underlying kidney disease Mental health Continue home medications History of spinal stenosis and radiculopathy Continue gabapentin Time Attestation Discharge Coordination Time (in mins): 35 Quality: Safe Use of Opioids Does Pt have an Active Cancer Diagnosis on the Problem List?: No Quality: Stroke Does the patient have a stroke diagnosis?: No Physical Exam Vital Signs: Vital Signs: Last Vital Signs Temp 97.3 F 11/23/23 08:00 Pulse 58 11/23/23 08:00 Resp 16 11/23/23 08:00 BP 96/55 L 11/23/23 08:00 Pulse Ox 99 11/23/23 08:00 O2 Del Method Room Air 11/23/23 08:00 BMI result Body Mass Index 19.4 Appearing in no acute distress head is normocephalic atraumatic eyes pupils are PERRLA sclera is anicteric mouth throat mucous membranes are intact and moist neck is supple no lymphadenopathy, no JVD noted lung sounds are clear to auscultation heart regular rate rhythm, clear S1, S2 positive bowel sounds, abdomen is soft, nontender neuro patient is alert x3, no focal deficits DS: Data Data Completed and Pending Completed studies during hospitalization [Text1]: Procedures Excision of Stomach, Pylorus, Via Natural or Artificial Opening Endoscopic, Diagnostic (08/10/23) Performance of Urinary Filtration, Intermittent, Less than 6 Hours Per Day (08/10/23) Transfusion of Nonautologous Red Blood Cells into Peripheral Vein, Percutaneous Approach (08/10/23) Labs on day of discharge: Laboratory Results - last 24 hr 11/23/23 07:37 Hold Purple Top SEE NOTE Sodium 132 L Discharge Plan Discharge Anticipated Discharge Date/Time: 11/23/23 07:24 Patient Disposition: Home, Self-Care Discharge Diagnosis: Acute gastrointestinal bleeding with melena and coffee- ground emesis Abdominal pain Hyperkalemia End-stage renal disease on dialysis Referrals: oTm Moody MD [Physician] - 1 Week Rozina Nicole MD [Primary Care Provider] - 1 Week Discharge Medications: Continued citalopram 20 mg tablet 20 mg PO DAILY 90 Days Qty: 90 1RF thiamine HCl (vitamin B1) 100 mg tablet 100 mg PO DAILY 90 Days Qty: 90 0RF vitamin A 2,400 mcg capsule 2,400 mcg PO DAILY 90 Days Qty: 90 0RF cyanocobalamin (vitamin B-12) 1,000 mcg Tablet 1,000 mcg PO DAILY ondansetron 4 mg tablet,disintegrating 4 mg PO Q8H PRN (Reason: nausea and vomiting) Qty: 10 0RF sucralfate 1 gram tablet 1 g PO QID acetaminophen [Mapap (acetaminophen)] 500 mg capsule 1,000 mg PO Q8H PRN (Reason: Pain) Clinisol SF 15 % 15 % parenteral solution 0.5 ea IV MOWEFR@0900 Rx Instructions: DIALYSIS MEDICATION Bariatric Multivitamins 45 mg iron- 800 mcg-120 mcg Capsule 1 cap PO DAILY fluticasone propionate 50 mcg/actuation spray,suspension 1 spray intranasal DAILY PRN (Reason: Allergy Symptoms) Rx Instructions: administer into each nostril omeprazole 40 mg capsule,delayed release(DR/EC) 40 mg PO BID Qty: 60 0RF potassium chloride 20 mEq tablet extended release 20 meq PO DAILY carvedilol 6.25 mg tablet 6.25 mg PO BID pantoprazole 40 mg tablet,delayed release (DR/EC) 40 mg PO DAILY meclizine 25 mg tablet 25 mg PO BID pyridoxine (vitamin B6) 50 mg tablet 50 mg PO DAILY gabapentin 300 mg capsule 300 mg PO TID 30 Days Qty: 90 1RF melatonin 10 mg capsule 10 mg PO BEDTIME PRN (Reason: sleep) 90 Days Qty: 90 1RF ferrous sulfate 325 mg (65 mg iron) tablet,delayed release (DR/EC) 325 mg PO BID ergocalciferol (vitamin D2) [Vitamin D2] 1,250 mcg (50,000 unit) capsule 1,250 mcg PO PLEITEZ@0900 midodrine 5 mg tablet 5 mg PO TID Discharge Orders: Discharge Order (Routine); Ordered 11/23/23 Ordered By: Davida Hendricks Diet: Advance to usual diet Activity on Discharge: As tolerated Stand Alone Forms: Patient Portal Discharge page Print Language: Dominican Care Plan Goals: Follow up with gastroenterology as needed continue dialysis as regularly scheduled Health Concerns: Acute gastrointestinal bleeding with melena and coffee-ground emesis Abdominal pain Hyperkalemia End-stage renal disease on dialysis Plan of Treatment: Follow-up with primary care provider as needed Take all medications as prescribed Assessment: See discharge summary
[2023-11-23] MEDS: Morphine Sulfate 2 MG/ML CARTRIDGE 1 MG IVPUSH (10:01)
--- NOTE | 2023-11-23 11:47 | MHC.CM.PN ---
PT CLEARED TO DC HOME TODAY WITH RESUMPTION OF OP HD SISTER TO TRANSPORT
--- NOTE | 2023-11-26 12:57 | P.F2F_ITS ---
Service Date Service Date: 11/26/23 Encounter Date of encounter: 11/23/23 Reasons for Services Signs and symptoms assessed: Acute GI bleed End-stage renal disease on dialysis Hyperkalemia Reason for long-term: CV/CP assess and/or care Homebound: Leaving the home is medically contraindicated at this time without the asist of a device and/or another person due th the listed conditions above and below. Reason homebound: weakness related to hospital stay Certification: Based on the above findings, I certify that this patient is confined to the home and needs intermittent long-term care, physical therapy and/or speech therapy, or continues to need occupational therapy. The patient is under my care, and I have initiated the establishment of the plan of care. The patient will be followed by a physician who will periodically review the plan of care. Time Spent With Patient Time: Total time managing care of this patient today ____ minutes.
== END 2023-11-23 13:05 | disposition home or self-care (01) | DRG 391 ==
LOC: HO.ED 10:02 → HO.EDOVER 10:14 → HO.S3 11-20 13:56
PROVIDERS: Internal Medicine Gastroenterology; Physician Assistant; Physician Assistant Medical; Admitting Provider Nurse Practitioner Acute Care; Emergency Provider Emergency Medicine; PCP Internal Medicine; Visit Provider Nurse Practitioner Acute Care
PROC: 0DJ08ZZ Inspection of Upper Intestinal Tract, Via Natural or Artificial Opening Endoscopic (ICD-10-PCS; CPT 43235; principal; 2023-11-20 13:10)
DX: K22.2 Esophageal obstruction (principal); K22.6 Gastro-esophageal laceration-hemorrhage syndrome; K29.71 Gastritis, unspecified, with bleeding; K28.4 Chronic or unspecified gastrojejunal ulcer with hemorrhage; D62 Acute posthemorrhagic anemia; I12.0 Hypertensive chronic kidney disease with stage 5 chronic kidney disease or end stage renal disease; G89.18 Other acute postprocedural pain; F17.210 Nicotine dependence, cigarettes, uncomplicated; D63.1 Anemia in chronic kidney disease; Z71.6 Tobacco abuse counseling; Z98.84 Bariatric surgery status; Z99.2 Dependence on renal dialysis; Z79.899 Other long term (current) drug therapy
CPT/HCPCS: 36415; 71250; 74018; 74150; 74176; 80048; 80076; 81001; 82272; 83690; 84295; 84484; 85014; 85018; 85025; 85027; 86850; 86900; 86901; 90999; 93005; 99285; J1100; J1171; J1200; J1596; J2003; J2270; J2405; J2470; J2543; J2704

== ENCOUNTER → 2023-11-19 09:20 | Outpatient (BNV) | payer MEDICARE, MEDICAID, SELFPAY | PROVIDERS: Admitting Provider Nurse Practitioner Acute Care; Emergency Provider Emergency Medicine; PCP Internal Medicine; Visit Provider Internal Medicine Cardiovascular Disease | DX: R07.9 Chest pain, unspecified (principal) | CPT/HCPCS: 93010 ==

== ENCOUNTER → 2023-11-19 09:51 | Outpatient (BNV) | payer MEDICARE, MEDICAID, SELFPAY | PROVIDERS: Admitting Provider Nurse Practitioner Acute Care; Emergency Provider Emergency Medicine; PCP Internal Medicine; Visit Provider Nurse Practitioner Acute Care | DX: K66.8 Other specified disorders of peritoneum (principal); R10.10 Upper abdominal pain, unspecified | CPT/HCPCS: 99223; 99232; 99233; 99239; 99499; G0180 ==

== ENCOUNTER → 2023-11-19 09:51 | Outpatient (BNV) | payer MEDICARE, MEDICAID, SELFPAY | PROVIDERS: Admitting Provider Nurse Practitioner Acute Care; Emergency Provider Emergency Medicine; PCP Internal Medicine; Visit Provider Internal Medicine Gastroenterology | DX: D62 Acute posthemorrhagic anemia (principal); K29.70 Gastritis, unspecified, without bleeding; K22.2 Esophageal obstruction; K28.9 Gastrojejunal ulcer, unspecified as acute or chronic, without hemorrhage or perforation; K22.6 Gastro-esophageal laceration-hemorrhage syndrome | CPT/HCPCS: 43255; 99222 ==

== ENCOUNTER → 2023-11-19 09:51 | Outpatient (BNV) | payer MEDICARE, MEDICAID, SELFPAY | PROVIDERS: Admitting Provider Nurse Practitioner Acute Care; Emergency Provider Emergency Medicine; PCP Internal Medicine; Visit Provider Surgery | DX: K66.8 Other specified disorders of peritoneum (principal); R10.10 Upper abdominal pain, unspecified | CPT/HCPCS: 99222; 99232 ==

== ENCOUNTER 2023-12-05 11:09 | Outpatient (AMB) | payer MEDICARE, MEDICAID, SELFPAY ==
[2023-12-05 11:12] VITALS: BP 118/70; PULSE 82; O2SAT 100; BMI 19.3
--- NOTE | 2023-12-05 11:12 | A.OFFPC_ITS ---
Vital Signs 12/05/23 11:12 Height 5 ft 5 in Weight 116 lb 4 oz BMI 19.3 BP 118/70 Blood Pressure Location Lt brachial Position Sitting Pulse 82 Pulse Source Pulse Oximeter Pulse Oximetry (%) 100 Oxygen Delivery Method Room Air Intake Visit Reasons: TCM GI Bleed [facility] 11/22 Risk And Insurance Consultant Required: No Accompanied by: Self / Same As Patient Allergies ibuprofen Allergy (Severe, Verified 12/05/23 11:25) Unknown nifedipine Allergy (Intermediate, Verified 12/05/23 11:25) hives, leg edema Medication List - Last Reconciled 12/05/23 by Janice Zamarripa PA-C acetaminophen (Mapap (acetaminophen)) 1,000 mg PO Q8H PRN carvedilol 6.25 mg PO BID citalopram 20 mg PO DAILY 90 days cyanocobalamin (vitamin B-12) 1,000 mcg PO DAILY ergocalciferol (vitamin D2) (Vitamin D2) 1,250 mcg PO PLEITEZ@0900 ferrous sulfate 325 mg PO BID fluticasone propionate 50 mcg/actuation 1 spray intranasal DAILY PRN gabapentin 300 mg PO TID 30 days meclizine 25 mg PO BID melatonin 10 mg PO BEDTIME PRN 90 days midodrine 5 mg PO TID [id number] 45 mg iron- 800 mcg-120 mcg (Bariatric Multivitamins) 1 cap PO DAILY ondansetron 4 mg PO Q8H PRN pantoprazole 40 mg PO DAILY parenteral amino acid 15% no.5 (Clinisol SF) 0.5 ea IV MOWEFR@0900 potassium chloride ER 20 mEq PO DAILY pyridoxine (vitamin B6) 50 mg PO DAILY sucralfate 1 g PO QID thiamine HCl (vitamin B1) 100 mg PO DAILY 90 days vitamin A 2,400 mcg PO DAILY 90 days Tobacco use date assessed: 02/24/23 Dental Screening Dental Screen Date: 02/24/23 HPI TCM GI Bleed [facility] 11/22 HPI Details 53-year-old female with moderate major d epression, malnutrition, GERD, end-stage renal disease on hemodialysis and idiopathic hypotension last seen by Dr. Steiner june 2023 coming in for hospital discharge follow up. In review of the notes, patient was seen in [facility] 11/19/2023 for coffee-ground emesis in melanotic stools and patient was admitted for further management of GI bleed.? Seen by GI s/p EGD found to have multiple ulcers, small Tania-Dixon tear, Sc hatzki's ring and gastritis with plan to continue omeprazole twice daily and smoking cessation. Began having abdominal pain after the EGD had CT scan showing small amount of free intraperitoneal air which was determined not to be perforated viscus treated with IV Zosyn. Patient was discharged home 11/23/2023 and advised to follow up with PCP and manufacturing advisor. Patient is being seen by [facility] and has not yet made a follow up appointment after her recent hospital visit. Her abdominal pain has improved and is no longer having blood in the vomit or stools. She did vomit due to overeating yesterday after a particularly large meal and has not vomited since. She was initially having formed stools but the last 2 days has been having diarrhea without blood in the stool. She does complain of belly pain in the suprapubic area as well as lower back pain which is chronic. Denies any urinary frequency, blood in the urine, or pain with urination. 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 Lumbar back pain with radiculopathy affecting left lower extremity Physical exam (~02/14/21) Peritoneal dialysis catheter in place Polyarthralgia Dyslipidemia Family history of ovarian cancer Abnormal mammogram of right breast Angina pectoris syndrome Chest pain Constipation Nephrosclerosis Renal interstitial fibrosis Obesity (BMI 30-39.9) Back pain GERD (gastroesophageal reflux disease) History of headache HTN (hypertension) Surgical History S/P arteriovenous (AV) graft placement History of sleeve gastrectomy Fistula Hx of colonoscopy Hx of hysterectomy Hx of tubal ligation History of endometrial ablation Family History Father Asthma Mother Asthma Hypertension Ovarian cancer Maternal Grandfather Myocardial infarction Paternal Grandmother Stroke Social History Household Members: None Housing: Apartment Do you presently have visiting nurse or other home services: No Alcohol intake: current Alcohol intake frequency: does not drink Alcohol type: beer Comment: Patient doesn't want bed alarm on Patient Tobacco Use Status: Current someday Tobacco user Tobacco use type: Cigarette Cigarettes Per Day: 2 Years Smoked: 10+ e-Cigarette/Vaping Use: Currently Using Second Hand Smoke Exposure: No Advance Directives Date on File: 04/27/20 service: No Current occupational status: employed Cognitive needs: No Hearing needs: No Vision needs: Yes (reading glasses) Female Reproductive History Menstrual Age of Menarche: 10 Questionnaire Thrive Questionnaire Date Thrive assessed: 11/22/23 JULIA-7 AMB Questionnaire JULIA-7 Date JULIA - 7 assessed: 02/24/23 Source: Developed by Drs. Brandan Schmitz, Tricia Asher, Carlos Blue and colleagues, with an educational lore from [employer]. Review of Systems Const Denies body aches, Denies chills, Denies fever(s), Denies headache(s) and Denies poor appetite Eyes Reports no additional complaints ENT Denies dizziness and Denies headache(s) Card Denies chest pain, Denies lightheadedness and Denies dyspnea Resp Denies cough and Denies dyspnea GI Reports abdominal pain (Suprapubic pain), Denies melena, Denies hematochezia, Denies constipation, Reports diarrhea, Denies nausea, Denies vomiting and Denies hematemesis Details: Low back pain that radiates into the suprapubic area Musc Reports no additional complaints and Denies abnormal gait Skin/Breast Reports system reviewed and no additional complaints, except as documented Neuro Denies abnormal gait, Denies dizziness and Denies headache(s) Psych Reports no additional complaints Physical exam (Primary Care) Tobacco/Smoking Status: Tobacco use Status Tobacco use date assessed 02/24/23 12/05/23 11:13 Patient Tobacco Use Status Current someday Tobacco 12/05/23 11:13 Tobacco use type Cigarette 12/05/23 11:13 e-Cigarette/Vaping Use Currently Using 12/05/23 11:13 Thrive Assessment: Date of Thrive Assessment Date Thrive assessed 11/22/23 12/05/23 11:13 Const General: cooperative, healthy appearing, comfortable and no acute distress Orientation/consciousness: patient oriented x3 [facility] Head: Yes normocephalic Ears: hearing grossly normal bilaterally General nose exam: Normal external nose present Eyes General: appearance normal, both eyes and all related structures Conjunctivae: conjunctivae normal Neck Neck: Yes full ROM and Yes no lymphadenopathy Resp Effort & Inspection: normal respiratory effort Auscultation: clear to auscultation bilaterally, no crackles, no rales, no rhonchi and no wheezes Cardio Rate: regular rate Rhythm: regular rhythm Skin General skin exam: no rashes or lesions noted Neuro General: patient oriented x3 Gait exam (Neuro): Normal gait present Extrem General: Yes normal to inspection, Yes full ROM and No edema Psych Affect: normal affect Attitude: cooperative Insight: Good insight present (Psych) Judgement: Good judgement present (Psych) Coding Level of Care Code TCM Mod MDM <= 14 Days Complex EM visit Add On G2211 Diagnoses Upper GI bleeding K92.2 ESRD on dialysis N18.6; Z99.2 GERD (gastroesophageal reflux disease) K21.9 Essential hypertension I10 Hypertension type: essential hypertension Suprapubic pain R10.2 Underweight R63.6 Assessment & Plan Assessment & Plan (1) Upper GI bleeding: Comment: 11/2023 EGD showed multiple ulcers, small Tania-Dixon tear, Schatzki's ring and gastritis Code(s): K92.2 - Gastrointestinal hemorrhage, unspecified Category: Medical Plan: Recently seen in [facility] and admitted for GI bleed treated with PPI and advised to continue on this medication. Advised patient to follow up with GI provider in the next month. Denies any current abdominal pain, hematemesis, or melena. (2) ESRD on dialysis: Comment: [id number] Code(s): N18.6 - End stage renal disease; Z99.2 - Dependence on renal dialysis Category: Medical Plan: Continue to follow with Nephrology and continue on dialysis Friday/Friday/Friday. Avoid kidney irritants such as NSAIDs and stay well hydrated. (3) GERD (gastroesophageal reflux disease): Code(s): K21.9 - Gastro-esophageal reflux disease without esophagitis Category: Medical Plan: Avoid trigger foods such as citrus, tomato products, soda, caffeine, spicy foods and other foods that may be irritating to your stomach. Avoid laying flat 3-4 hours after eating and elevate the head of the bed 30 degrees to prevent acid from moving into the esophagus. Continue on PPI advised to follow up with GI provider. (4) HTN (hypertension): Code(s): I10 - Essential (primary) hypertension Category: Medical Qualifiers: Hypertension type: essential hypertension Qualified Code(s): I10 - Essential (primary) hypertension Plan: Continue on current blood pressure medication. Avoid salt intake and encourage healthy diet and regular exercise. Blood pressure at goal today. (5) Suprapubic pain: Code(s): R10.2 - Pelvic and perineal pain Category: Medical Plan: Patient having tenderness to palpation in suprapubic area as well as left-sided CVA tenderness. Ordered for urinalysis with culture for further evaluation. (6) Underweight: Code(s): R63.6 - Underweight Category: Medical Plan: Patient's transplant dietitian at [facility] transplant is concerned about possible malnutrition and would like to have additional blood work ordered. Labs placed. Plan This note was constructed using voice recognition software. While every effort has been made to ensure accuracy and ripsaw matcher, still areas may have been included sometimes these areas may affect the content or meeting of the given symptoms. Total time spent caring for the patient today was 30 minutes. This includes time spent before the visit reviewing the chart, time spent during the visit, and time spent after the visit and documentation. Orders: Orders UA CC w/rflx Micro + Cult Today R35.89 - Other polyuria
== END 2023-12-05 12:07 | disposition home or self-care (01) ==
PROVIDERS: PCP Internal Medicine
DX: I12.0 Hypertensive chronic kidney disease with stage 5 chronic kidney disease or end stage renal disease (principal); N18.6 End stage renal disease; Z99.2 Dependence on renal dialysis; K92.2 Gastrointestinal hemorrhage, unspecified; K21.9 Gastro-esophageal reflux disease without esophagitis; R10.2 Pelvic and perineal pain; R63.6 Underweight

== ENCOUNTER 2023-12-05 11:09 | Outpatient (REF) | payer MEDICARE, MEDICAID, SELFPAY ==
[2023-12-05 12:16] LABS: Appearance Urine Clear; Color Urine Yellow; Glucose Urine UA Negative (Negative); Leukocyte Esterase Urine Negative (Negative); Nitrite Urine Negative (Negative); PH >= 9.0 (5.0-9.0); Specific Gravity - Urine <= 1.005 (1.005-1.025); UMIC TRIGGER UACC YES; Urine Blood Negative (Negative); Urine Ketones Negative (Negative); Urine Protein 30 (1+) mg/dL (Neg-Trace)
[2023-12-05 12:18] LABS: Bacteria Urine None Seen (None Seen); Hyaline Casts Urine 0-2 /LPF (0-2); RBC Urine 0-2 /HPF (0-2); WBC Urine 0-5 /HPF (0-5)
== END 2023-12-05 11:10 | disposition home or self-care (01) ==
LOC: HO.LNP 11:09
PROVIDERS: PCP Internal Medicine
DX: K92.2 Gastrointestinal hemorrhage, unspecified (principal); I12.9 Hypertensive chronic kidney disease with stage 1 through stage 4 chronic kidney disease, or unspecified chronic kidney disease; N18.6 End stage renal disease; Z99.2 Dependence on renal dialysis; K21.9 Gastro-esophageal reflux disease without esophagitis; R10.2 Pelvic and perineal pain; R63.6 Underweight; R35.89 Other polyuria
CPT/HCPCS: 81001; 99495

== ENCOUNTER 2023-12-09 19:39 | Emergency (ER) | payer MEDICARE, MEDICAID, SELFPAY ==
--- NOTE | ~2023-12-09 | CT_ITS ---
EXAMINATION: CT ABDOMEN AND PELVIS WITHOUT CONTRAST CLINICAL INFORMATION: Severe abdominal pain COMPARISON: CT scan abdomen pelvis November 21, 2023 TECHNIQUE: Multidetector volumetric imaging was performed from the superior aspect of the liver through the pubic symphysis. Sagittal and coronal reformatted images were obtained on the technologist's workstation. This CT examination was performed using dose optimization techniques as appropriate, variously including the following: *Automated exposure control *Adjustment of mA and/or kV according to patient size (this includes techniques or standardized protocols for targeted exams where dose is matched to indication/reason for exam; i.e. extremities or head) *Use of iterative reconstruction technique DLP: 292 mGy-cm FINDINGS: LUNG BASES: The visualized lung bases are unremarkable. LIVER, GALLBLADDER, AND BILIARY TREE: The liver is normal in size, shape, and attenuation. No focal hepatic lesion or biliary ductal dilatation is present. Gallbladder is distended. No ossified gallstone. No edema around the gallbladder. PANCREAS: Unremarkable. SPLEEN: Unremarkable. ADRENAL GLANDS: Unremarkable. KIDNEYS AND URETERS: The kidneys are normal in size, shape, and attenuation. No hydronephrosis, hydroureter, or calculi seen. No perinephric stranding. BLADDER: Unremarkable. GASTROINTESTINAL TRACT: Postsurgical changes of stomach and small bowel consistent with gastric bypass. No acute change of the bowel. No bowel obstruction. No bowel wall thickening or edema. The appendix is not visualized. Mesentery: Peritoneal dialysis catheter present. Fluid in the peritoneal cavity consistent with the dialysis. No free air. No abscess. ABDOMINAL WALL: No significant hernia is appreciated. LYMPH NODES: Normal. VASCULAR: Vascular calcifications of aorta. No aneurysm. PELVIC VISCERA: Uterus is absent. OSSEOUS STRUCTURES: Degenerative disc height narrowing at L4-L5 with grade 1 anterior listhesis due to severe degenerative changes of facet joints at L4-L5. CT/CT abdomen pelvis wo IV con IMPRESSION: 1. No acute abnormality CT scan abdomen pelvis. 2. Postsurgical changes of stomach and small bowel consistent with gastric bypass. No acute change of the bowel. 3. Peritoneal dialysis catheter present. Fluid in the peritoneal cavity consistent with the dialysis. Fleischner guidelines were followed. Electronically signed by: Forest Chen MD 12/10/2023 12:05 AM EDT
[2023-12-09 19:46] VITALS: BP 204/100; PULSE 97; O2SAT 100
[2023-12-09 19:53] VITALS: BP 205/118; PULSE 94; RESP 18; TEMP 36.9; O2SAT 100; BMI 20.5
--- NOTE | 2023-12-09 20:12 | ED.GENADULT ---
HPI - General Adult General Chief complaint: Abdominal Pain Stated complaint: vomiting coffee ground emesis, HTN *204/100 Time Seen by Provider: 12/09/23 20:12 History of Present Illness ED Provider: Lubna BULLOCK narrative: The patient is a 53-year-old woman with a history of chronic renal failure on dialysis. The patient says she has been on dialysis for about 6 or 8 years. She had previously been on peritoneal dialysis but because she had to take care of a child she switch to hemodialysis so that she would not be so constantly attached to dialysis equipment. Additionally, in an effort to try to lose weight to increase her chances of getting a splint, she had bariatric surgery a little over 2 years ago. She has had some complications of the initial surgery and has required additional surgeries. As a result the patient has ultimately lost quite a bit of weight. The patient is hoping to return to peritoneal dialysis and 2 months ago had a peritoneal dialysis catheter placed but she has not yet started using it. She is still receiving hemodialysis on Mondays, Wednesdays, and Fridays. She had dialysis yesterday on Friday. The patient says that she ate rice for dinner last night and she may have eaten more than she should have at some point after her meal she developed nausea and she says that since 01:00 this morning she has had a lot of vomiting. She also developed abdominal pain and ultimately came to the emergency room complaining of severe generalized abdominal pain as well as nausea and vomiting and she was concerned there might be blood in the emesis. The patient was hospitalized earlier this month for a possible upper GI bleed. She was found to have Tania-Dixon tears in her esophagus and some small areas of marginal ulcers. No fever, sweats, chills. Related Data Home Medications ?Medication ?Instructions ?Recorded ?Confirmed ferrous sulfate 325 mg (65 mg 325 mg PO BID 05/11/20 12/05/23 iron) tablet,delayed release cyanocobalamin (vitamin B-12) 1,000 mcg PO DAILY 10/17/20 12/05/23 1,000 mcg tablet pyridoxine (vitamin B6) 50 mg 50 mg PO DAILY 06/06/21 12/05/23 tablet ergocalciferol (vitamin D2) 1,250 1,250 mcg PO PLEITEZ@0900 07/05/21 12/05/23 mcg (50,000 unit) capsule (Vitamin D2) midodrine 5 mg tablet 5 mg PO TID 03/25/23 12/05/23 acetaminophen 500 mg capsule 1,000 mg PO Q8H PRN Pain 08/10/23 12/05/23 (Mapap (acetaminophen)) fluticasone propionate 50 1 spray intranasal DAILY PRN 08/10/23 12/05/23 mcg/actuation nasal Allergy Symptoms spray,suspension [id number]-zqyx 45 mg-folic 1 cap PO DAILY 08/10/23 12/05/23 acid 800 mcg-vit K 120 mcg capsule (Bariatric Multivitamins) parenteral amino acid 15% no.5 15 0.5 ea IV MOWEFR@0900 08/10/23 12/05/23 % combination no.5 intravenous solution (Clinisol SF) sucralfate 1 gram tablet 1 g PO QID 08/10/23 12/05/23 carvedilol 6.25 mg tablet 6.25 mg PO BID 11/19/23 12/05/23 meclizine 25 mg tablet 25 mg PO BID 11/19/23 12/05/23 pantoprazole 40 mg tablet,delayed 40 mg PO DAILY 11/19/23 12/05/23 release potassium chloride 20 mEq 20 meq PO DAILY 11/19/23 12/05/23 tablet,extended release Previous Rx's ?Medication ?Instructions ?Recorded gabapentin 300 mg capsule 300 mg PO TID 30 days #90 caps 06/26/23 melatonin 10 mg capsule 10 mg PO BEDTIME PRN sleep 90 days 06/26/23 #90 caps ondansetron 4 mg disintegrating 4 mg PO Q8H PRN nausea and 08/19/23 tablet vomiting #10 tabs citalopram 20 mg tablet 20 mg PO DAILY 90 days #90 tabs 09/16/23 thiamine HCl (vitamin B1) 100 mg 100 mg PO DAILY 90 days #90 tabs 09/27/23 tablet vitamin A 2,400 mcg capsule 2,400 mcg PO DAILY 90 days #90 caps 09/27/23 Allergies Allergy/AdvReac Type Severity Reaction Status Date / Time ibuprofen Allergy Severe Unknown Verified 12/09/23 19:55 nifedipine Allergy Intermediate hives, leg Verified 12/09/23 19:55 edema Review of Systems Review of Systems: Yes all other systems are reviewed and are negative [facility] Past Medical History Medical History Moderate major depression ESRD on dialysis Physical exam Spondylosis without myelopathy or radiculopathy, lumbar region Spinal stenosis 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 Lumbar back pain with radiculopathy affecting left lower extremity Physical exam (~02/14/21) Peritoneal dialysis catheter in place Polyarthralgia Dyslipidemia Family history of ovarian cancer Abnormal mammogram of right breast Angina pectoris syndrome Chest pain Constipation Nephrosclerosis Renal interstitial fibrosis Obesity (BMI 30-39.9) Back pain GERD (gastroesophageal reflux disease) History of headache HTN (hypertension) Surgical History S/P arteriovenous (AV) graft placement History of sleeve gastrectomy Fistula Hx of colonoscopy Hx of hysterectomy Hx of tubal ligation History of endometrial ablation Family History Family History Father Asthma Mother Asthma Hypertension Ovarian cancer Maternal Grandfather Myocardial infarction Paternal Grandmother Stroke Social History Social History Household Members: None Housing: Apartment Do you presently have visiting nurse or other home services: No Alcohol intake: current Alcohol intake frequency: holidays/special occasions only Alcohol type: beer Comment: Patient doesn't want bed alarm on Patient Tobacco Use Status: Current someday Tobacco user Tobacco use type: Cigarette Cigarettes Per Day: 2 Years Smoked: 10+ Smoked in Last 30 Days: Yes e-Cigarette/Vaping Use: Currently Using Second Hand Smoke Exposure: No Use of substances other than those prescribed or required for medical reasons: No Advance Directives: Yes Advance Directives on File: Yes Advance Directives Date on File: 04/27/20 Do you have a plan to hurt others: No Plan Patient : No service: No Current occupational status: employed Cognitive needs: No Hearing needs: No Vision needs: Yes (reading glasses) Physical Exam ED Vital Signs: Vital Signs - 24 hr 12/09/23 19:53 12/09/23 20:57 12/10/23 00:03 Temperature 98.5 F 97.8 F 98.2 F Pulse Rate 94 96 95 Respiratory Rate 18 16 16 Blood Pressure 205/118 H 208/123 H 195/108 H Pulse Oximetry 100 98 96 Oxygen Delivery Method Room Air Room Air Room Air BMI result Body Mass Index 20.5 Const Other: The patient is a 53-year-old woman who looks somewhat older than her age. She was awake and alert and was screaming in discomfort. HENMT Other: Face is symmetrical. Mucous membranes moist Eyes General: appearance normal, both eyes and all related structures Neck Neck: Yes full ROM Resp Effort & Inspection: normal respiratory effort Auscultation: clear to auscultation bilaterally Cardio Rate: regular rate Heart sounds: S1 normal heart sound present and S2 normal heart sound present GI Other: The patient seemed to have generalized abdominal tenderness with voluntary guarding. Rectal exam revealed no significant amount of stool in the rectum. The trace amount of stool was brown in color and heme-negative. Skin Other: Skin was dry and unremarkable Neuro Other: The patient was awake and alert. Initially she seemed distracted by discomfort but later she was coherent and appropriate. Cranial nerves are grossly intact. She moves her extremities normally and appropriately. Extrem Other: No peripheral edema Medications Administered Discontinued Medications Generic Name Dose Route Start Last Admin Trade Name Devanq PRN Reason Stop Dose Admin Droperidol 1.25 mg 12/09/23 20:22 12/09/23 21:03 Droperidol 5 Mg/2 Ml Vial IVPUSH 12/09/23 20:23 1.25 mg ONCE ONE Administration Hydromorphone HCl 1 mg 12/09/23 20:22 12/09/23 21:03 Hydromorphone Hcl 1 Mg/Ml Syringe IVPUSH 12/09/23 20:23 1 mg ONCE ONE Administration Protocol Ondansetron HCl 4 mg 12/09/23 22:55 12/09/23 23:11 Ondansetron Hcl 4 Mg/2 Ml Vial IVPUSH 12/09/23 22:56 4 mg ONCE ONE Administration Medical Decision Making Medical Decision Making MDM Narrative: The patient is a 53-year-old woman who was a dialysis patient. She also has had bariatric surgery. She was hospitalized earlier this month for possible hematemesis. She was found to have Tania-Dixon tears and marginal ulcers. She is on omeprazole 40 mg b.i.d.. She is also on sucralfate q.i.d.. Today the patient presented with what she said was severe abdominal pain that has been going on for over 18 hours as well as vomiting. The patient's labs today are largely unremarkable. Her white count was 10.2. Hemoglobin 11.9. 86% neutrophils. Chemistries are unremarkable. CRP is normal at 0.20. LFTs and lipase are unremarkable. Noncontrast CT scan of the abdomen and pelvis does not show any acute finding. The patient was initially treated with IV hydromorphone and droperidol. She then slept for many hours. I re-examined her after a few hours and she seemed much more comfortable and coherent. Her abdomen seemed benign. I performed a rectal exam that was unremarkable. At that point I felt she was appropriate for discharge. Lab Data 12/09/23 20:50 12/09/23 20:50 Labs: Lab Results 12/09/23 Range/Units 20:50 WBC 10.2 (4.8-10.8) X10*3/uL RBC 4.16 L D (4.20-5.50) X10*6/uL Hgb 11.9 L D (12.0-16.0) g/dl Hct 35.5 L D (37.0-47.0) % MCV 85.3 (80.0-98.0) fL MCH 28.6 (27.0-33.0) pg MCHC 33.5 (31.0-35.0) g/dl RDW 17.8 H (11.0-16.0) % Plt Count 275 D (160-400) X10*3/uL MPV 9.1 L (9.4-12.3) fL Immature Gran % (Auto) 0.3 (0.0-0.4) % Neut % (Auto) 86.1 H (45-73) % Lymph % (Auto) 9.1 L (20-40) % [place] % (Auto) 3.8 (2-11) % Eos % (Auto) 0.2 (0-4) % Baso % (Auto) 0.5 (0-2) % Lymph # (Auto) 0.9 L (1.2-4.9) X10*3/uL [place] # (Auto) 0.4 (0.1-1.2) X10*3/uL Eos # (Auto) 0.0 (0.0-0.4) X10*3/uL Baso # (Auto) 0.1 (0.0-0.2) X10*3/uL Abs Immat Gran (auto) 0.03 (0.00-0.03) X10*3/uL Absolute Neuts (auto) 8.8 H (2.0-8.3) x10*3/uL Absolute Nucleated RBC 0.000 (0.0-0.012) X10*3/uL Nucleated RBC % (auto) 0.0 (0.0-0.2) /100WBC PT 12.3 (10.9-12.4) SEC INR 1.1 (0.9-1.1) Sodium 138 (135-145) mmol/L Potassium 4.2 (3.3-5.1) mmol/L Chloride 97 (96-108) mmol/L Carbon Dioxide 26 (22-29) mmol/L Anion Gap 19 (12-20) BUN 13 (9-16) mg/dL Creatinine 4.17 H* (0.5-1.4) mg/dL Estim Creat Clear Calc 13.9 Estimated GFR 11 Random Glucose 112 (60-115) mg/dL Calcium 9.5 (8.4-10.2) mg/dL Magnesium 2.1 (1.6-2.6) mg/dL Total Bilirubin 0.4 (0.0-1.0) mg/dL Direct Bilirubin 0.2 (0.0-0.5) mg/dL AST 17 (5-31) U/L ALT < 6 (0-31) U/L Alkaline Phosphatase 156 H (39-117) U/L C-Reactive Protein 0.20 (< or = 0.50) mg/dL Total Protein 6.4 L (6.5-8.0) g/dL Albumin 3.3 L (3.5-5.0) g/dL Lipase 21 (8-78) U/L Discharge Plan Discharge Clinical Impression: Abdominal pain, Vomiting Patient Disposition: Home, Self-Care Additional Instructions: Your blood testing and your CT scan today are very reassuring. There does not seem to be any dangerous process at work. Please be careful with the foods you eat and make sure you do not eat too much. Please follow up with dialysis tomorrow. Return to the emergency room if significantly worse. Prescriptions: No Action citalopram 20 mg tablet 20 mg PO DAILY 90 Days Qty: 90 1RF thiamine HCl (vitamin B1) 100 mg tablet 100 mg PO DAILY 90 Days Qty: 90 0RF vitamin A 2,400 mcg capsule 2,400 mcg PO DAILY 90 Days Qty: 90 0RF cyanocobalamin (vitamin B-12) 1,000 mcg Tablet 1,000 mcg PO DAILY ondansetron 4 mg tablet,disintegrating 4 mg PO Q8H PRN (Reason: nausea and vomiting) Qty: 10 0RF sucralfate 1 gram tablet 1 g PO QID acetaminophen [Mapap (acetaminophen)] 500 mg capsule 1,000 mg PO Q8H PRN (Reason: Pain) Clinisol SF 15 % 15 % parenteral solution 0.5 ea IV MOWEFR@0900 Rx Instructions: DIALYSIS MEDICATION Bariatric Multivitamins 45 mg iron- 800 mcg-120 mcg Capsule 1 cap PO DAILY fluticasone propionate 50 mcg/actuation spray,suspension 1 spray intranasal DAILY PRN (Reason: Allergy Symptoms) Rx Instructions: administer into each nostril potassium chloride 20 mEq tablet extended release 20 meq PO DAILY carvedilol 6.25 mg tablet 6.25 mg PO BID pantoprazole 40 mg tablet,delayed release (DR/EC) 40 mg PO DAILY meclizine 25 mg tablet 25 mg PO BID pyridoxine (vitamin B6) 50 mg tablet 50 mg PO DAILY gabapentin 300 mg capsule 300 mg PO TID 30 Days Qty: 90 1RF melatonin 10 mg capsule 10 mg PO BEDTIME PRN (Reason: sleep) 90 Days Qty: 90 1RF ferrous sulfate 325 mg (65 mg iron) tablet,delayed release (DR/EC) 325 mg PO BID ergocalciferol (vitamin D2) [Vitamin D2] 1,250 mcg (50,000 unit) capsule 1,250 mcg PO PLEITEZ@0900 midodrine 5 mg tablet 5 mg PO TID Interventions: ED Discharge Assessment Last Done: 12/10/23 01:12 Print Language: Chinese
--- NOTE | 2023-12-09 20:21 | ECG_ITS ---
Test Reason : ABDOMINAL PAIN Blood Pressure : / mmHG Vent. Rate : 093 BPM Atrial Rate : 093 BPM P-R Int : 110 ms QRS Dur : 076 ms QT Int : 382 ms P-R-T Axes : 047 051 060 degrees QTc Int : 474 ms Sinus rhythm with short TX Otherwise normal ECG When compared with ECG of 19-NOV-2023 09:46, No significant change was found Referred By: Puneet Calvo Electronically Signed By:MINO ROWE
[2023-12-09 20:53] LABS: MANUAL DIFF FLAG NO
[2023-12-09 20:54] LABS: Basophils Absolute Auto 0.1 X10*3/uL (0.0-0.2); Basophils Percent Auto 0.5 % (0-2); Eosinophils Percent Auto 0.2 % (0-4); Hematocrit 35.5 % (37.0-47.0); Hemoglobin 11.9 g/dl (12.0-16.0); Imm Gran Abs Auto 0.03 X10*3/uL (0.00-0.03); Imm Gran Pct Auto 0.3 % (0.0-0.4); Lymphocytes Absolute Auto 0.9 X10*3/uL (1.2-4.9); Lymphocytes Percent Auto 9.1 % (20-40); Mean Corpuscular HGB Conc 33.5 g/dl (31.0-35.0); Mean Corpuscular Hemoglobin 28.6 pg (27.0-33.0); Mean Corpuscular Volume 85.3 fL (80.0-98.0); Mean Platelet Volume 9.1 fL (9.4-12.3); Monocytes Absolute Auto 0.4 X10*3/uL (0.1-1.2); Monocytes Percent Auto 3.8 % (2-11); Neutrophils Absolute Auto 8.8 x10*3/uL (2.0-8.3); Neutrophils Percent Auto 86.1 % (45-73); Platelet Count 275 X10*3/uL (160-400); Red Blood Count 4.16 X10*6/uL (4.20-5.50); Red Cell Distribution Width 17.8 % (11.0-16.0); White Blood Count 10.2 X10*3/uL (4.8-10.8)
[2023-12-09 20:57] VITALS: BP 208/123; PULSE 96; RESP 16; TEMP 36.6; O2SAT 98
[2023-12-09 21:01] LABS: INTERNATIONAL NORM RATIO 1.1 (0.9-1.1); Prothrombin Time 12.3 SEC (10.9-12.4)
[2023-12-09] MEDS: droPERidol 5 MG/2 ML VIAL 1.25 MG IVPUSH (21:03)
[2023-12-09] MEDS: HYDROmorphone HCl 1 MG/ML SYRINGE IVPUSH (21:03)
[2023-12-09 21:25] LABS: Alanine Aminotransferase < 6 U/L (0-31); Albumin Level 3.3 g/dL (3.5-5.0); Alkaline Phosphatase 156 U/L (39-117); Anion Gap 19 (12-20); Aspartate Amino Transferase 17 U/L (5-31); Bilirubin Direct 0.2 mg/dL (0.0-0.5); Bilirubin Total 0.4 mg/dL (0.0-1.0); Blood Urea Nitrogen 13 mg/dL (9-16); Calcium 9.5 mg/dL (8.4-10.2); Carbon Dioxide 26 mmol/L (22-29); Chloride 97 mmol/L (96-108); Creatinine Clr Calc Pharmacy 13.9; Estimated Glomerular Filt Rate 11; Glucose Random 112 mg/dL (60-115); Lipase 21 U/L (8-78); Magnesium 2.1 mg/dL (1.6-2.6); Potassium 4.2 mmol/L (3.3-5.1); Sodium 138 mmol/L (135-145); Total Protein 6.4 g/dL (6.5-8.0)
[2023-12-09] MEDS: ondansetron HCL 4 MG/2 ML VIAL IVPUSH (23:11)
--- NOTE | 2023-12-09 23:30 | MHC.EDTECH ---
this tech assumed care of pt @ 2300, when rounding on pt, she was witnessed to be sleeping, w/ equal chest rise present and unlabored respirations. Call light within reach for safety.
[2023-12-10 00:03] VITALS: BP 195/108; PULSE 95; RESP 16; TEMP 36.8; O2SAT 96
[2023-12-10 01:12] VITALS: BP 195/108; PULSE 95; RESP 16; TEMP 36.8; O2SAT 96
[2023-12-10] MEDS: droPERidol 5 MG/2 ML VIAL 0.625 MG IVPUSH (01:12)
== END 2023-12-10 01:13 | disposition home or self-care (01) ==
PROVIDERS: Emergency Provider Emergency Medicine; PCP Internal Medicine
DX: R10.2 Pelvic and perineal pain (principal); R11.2 Nausea with vomiting, unspecified; R94.31 Abnormal electrocardiogram [ECG] [EKG]; F17.210 Nicotine dependence, cigarettes, uncomplicated; Z79.899 Other long term (current) drug therapy; Z98.84 Bariatric surgery status
CPT/HCPCS: 36415; 74176; 80048; 80076; 83690; 83735; 85025; 85610; 86140; 93005; 96374; 96375; 96376; 99284; 99285; J1171; J1790; J2405

== ENCOUNTER → 2023-12-09 20:21 | Outpatient (BNV) | payer MEDICARE, MEDICAID, SELFPAY | PROVIDERS: Emergency Provider Emergency Medicine; PCP Internal Medicine; Visit Provider Internal Medicine | DX: I45.6 Pre-excitation syndrome (principal) | CPT/HCPCS: 93010 ==

== ENCOUNTER 2023-12-16 10:29 | Outpatient (REF) | payer MEDICARE, MEDICAID, SELFPAY ==
[2023-12-16 12:23] LABS: Appearance Urine Clear; Color Urine Yellow; Glucose Urine UA Negative (Negative); Leukocyte Esterase Urine Negative (Negative); Nitrite Urine Negative (Negative); PH >= 9.0 (5.0-9.0); UMIC TRIGGER UACC YES; Urine Blood Negative (Negative); Urine Ketones Negative (Negative); Urine Protein 100 (2+) mg/dL (Neg-Trace)
[2023-12-16 12:51] LABS: Bacteria Urine None Seen (None Seen); Hyaline Casts Urine 0-2 /LPF (0-2); RBC Urine 0-2 /HPF (0-2); Squamous Epithelial Cell Urine 0-2 /HPF (0-2); WBC Urine 0-5 /HPF (0-5)
[2023-12-16 13:17] LABS: Folate 5.8 ng/mL (> or = 4.0); Vitamin B12 388 pg/mL (200-900)
[2023-12-20 03:09] LABS: Zinc 55 mcg/dL (60-130)
[2023-12-20 08:43] LABS: Vitamin B1 11 nmol/L (8-30)
[2023-12-20 18:59] LABS: Copper, serum 77 mcg/dL (70-175)
[2023-12-22 17:37] LABS: Alpha-Tocopherol 13.1 mg/L (5.7-19.9)
[2023-12-23 02:48] LABS: Vitamin A 65 mcg/dL (38-98)
[2023-12-24 21:18] LABS: Vitamin K1 854 pg/mL (130-1500)
== END 2023-12-16 10:30 | disposition home or self-care (01) ==
LOC: HO.LAB 10:29
PROVIDERS: PCP Internal Medicine
DX: R63.6 Underweight (principal); N18.6 End stage renal disease; Z99.2 Dependence on renal dialysis; R35.89 Other polyuria
CPT/HCPCS: 36415; 81001; 81003; 82525; 82607; 82746; 84425; 84446; 84590; 84597; 84630

== ENCOUNTER 2023-12-24 09:44 | Outpatient (REF) | payer MEDICARE, MEDICAID, SELFPAY ==
--- NOTE | ~2023-12-24 | MM_ITS ---
EXAMINATION: MM SCREENING DIGITAL BREAST TOMOSYNTHESIS, BILATERAL CLINICAL INFORMATION: Screening. Asymptomatic. COMPARISON: Mammography: Comparison is made with available priors TECHNIQUE: Digital breast mammography with tomosynthesis is performed in both the craniocaudal and mediolateral oblique views along with computer-aided detection (CAD). FINDINGS: There are scattered areas of fibroglandular density (ACR BI-RADS breast composition Category b). Right breast marker clip. There are no significant masses, abnormal calcifications, or other abnormalities. MM/MM tomosynthesis screening BI IMPRESSION: No mammographic evidence of malignancy. ASSESSMENT: BI-RADS BI-RADS 2 - Benign Findings RECOMMENDATION: Routine annual mammography screening. 1 year F/U This examination should not preclude the clinical evaluation of a suspicious palpable abnormality. This patient's information was entered into a reminder system with a target due date for their next mammogram. Electronically signed by: Lexie Duenas DO 01/01/2024 06:15 PM MU
== END 2023-12-24 09:45 | disposition home or self-care (01) ==
LOC: HO.MAMMO 09:44
PROVIDERS: PCP Internal Medicine; Visit Provider Internal Medicine
DX: Z12.31 Encounter for screening mammogram for malignant neoplasm of breast (principal)
CPT/HCPCS: 77063; 77067

== ENCOUNTER → 2023-12-24 10:00 | Outpatient (BNV) | payer MEDICARE, MEDICAID, SELFPAY | PROVIDERS: PCP Internal Medicine; Visit Provider Internal Medicine | DX: Z12.31 Encounter for screening mammogram for malignant neoplasm of breast (principal) | CPT/HCPCS: 77063; 77067 ==

== ENCOUNTER 2023-12-29 07:33 | Inpatient (IN) | payer MEDICARE, MEDICAID, SELFPAY ==
[2023-12-29] VITALS (12 sets, daily range): BP systolic 131–180; BP diastolic 74–98; PULSE 105–115; RESP 12–16; TEMP 36.7–37.1; O2SAT 96–99; BMI 20.8; BMI 20.9
--- NOTE | ~2023-12-29 | CT_ITS ---
EXAMINATION: CT ABDOMEN AND PELVIS WITHOUT CONTRAST CLINICAL INFORMATION: Nausea, vomiting, diarrhea, abdominal pain COMPARISON: CT dated December 09, 2023. TECHNIQUE: Multidetector volumetric imaging was performed from the superior aspect of the liver through the pubic symphysis. Sagittal and coronal reformatted images were obtained on the technologist's workstation. This CT examination was performed using dose optimization techniques as appropriate, variously including the following: *Automated exposure control *Adjustment of mA and/or kV according to patient size (this includes techniques or standardized protocols for targeted exams where dose is matched to indication/reason for exam; i.e. extremities or head) *Use of iterative reconstruction technique DLP: 269 mGy-cm FINDINGS: Inadequate evaluation of the intra-abdominal organs and vascular structures due to lack of IV contrast. LIVER, GALLBLADDER, AND BILIARY TREE: Liver measures 16 cm. No pericholecystic fluid collection or gallbladder wall thickening. Common bile duct measures 4 mm. PANCREAS: No peripancreatic fluid collections. No main pancreatic ductal dilatation. SPLEEN: 8 cm. Perisplenic fluid, small volume. ADRENAL GLANDS: Soft tissue fullness without gross nodular lesions, bilaterally. The overall Hounsfield unit measurement is 5.. KIDNEYS AND URETERS: Renal cortical thinning and small appearance. No gross hydronephrosis. Punctate 1 mm calcification in the left kidney. Probable small cysts, bilaterally. Nonspecific 1.5 mm calcification in the midportion right kidney.. BLADDER: Fluid-filled. GASTROINTESTINAL TRACT: Sutures in the stoma/gastroesophageal junction and proximal small bowel loops likely related to a Sae-en-Y procedure. There is edema pattern/ascites, small to moderate volume with groundglass appearance. No pneumatosis intestinalis. No pneumoperitoneum. No gross fluid collection, peritoneal cavity. Multifocal patchy edema pattern/soft tissue contusions along the left lower abdominal wall. The percutaneously placed peritoneal catheter is not longer present. Gas and fluid-filled mildly prominent small bowel loops with scattered air-fluid levels. The appendix is normal. ABDOMINAL WALL: Edema pattern and soft tissue heterogeneous slightly hyperdensities along the left hemiabdomen wall involving the fat planes. Small tiny fat-containing periumbilical hernia. LYMPH NODES: No gross lymphadenopathy. VASCULAR: Calcified plaques throughout the abdominal aorta wall and iliac arteries. No gross aneurysm or PELVIC VISCERA: Not evaluated. OSSEOUS STRUCTURES: Grade 1 anterolisthesis, L4-5 resulting in central spinal canal and bilateral neuroforamina stenosis. Facet joint hypertrophy at L4-5 and L5-S1. No acute fracture. CT/CT abdomen pelvis wo IV con IMPRESSION: Acute enteritis versus partial/intermittent distal small bowel obstruction among other etiologies. Fleischner guidelines were followed. Electronically signed by: Alfonso Lockett MD 12/29/2023 11:00 AM [facility]
--- NOTE | ~2023-12-29 | US_ITS ---
EXAMINATION: US RENAL WITH DOPPLER CLINICAL INFORMATION: Recurrent gastric pouch ulcers COMPARISON: None available. TECHNIQUE: Ultrasound along with color Doppler imaging and spectral analysis was performed of the abdominal aorta at the superior mesenteric artery origin, superior mesenteric artery and celiac trunk. FINDINGS: Abdominal aorta: Normal patency. PICC systolic velocity at the origin of the superior mesenteric artery is 108 cm/s with spectral broadening. Superior mesenteric artery: Peak systolic velocity, proximal segment measures 272 cm/s, mid segment measures 206 cm/s and distal segment measures 151 cm/s. Celiac trunk: Peak systolic velocity measures during inspiration in supine, 185 cm/s, during inspiration erect :180 cm/s, during expiration in supine: 181 cm/s and during expiration erect 167 cm/s Inferior mesenteric artery is not identified. Splenic artery peak systolic velocity 145 cm/s. Hepatic artery 196 cm/s. Mesenteric aortic ratio: 2.5. 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 Electronically signed by: Alfonso Lockett MD 01/01/2024 08:03 AM MU
--- NOTE | 2023-12-29 07:44 | ED.NAVMDI ---
HPI - Nausea/Vomiting/Diarrhea General Chief complaint: Nausea/Vomiting/Diarrhea Stated complaint: Bloody emesis and stool. Vom and diarrhea per ems Time Seen by Provider: 12/29/23 07:43 Source: patient Mode of arrival: EMS Limitations: no limitations History of Present Illness ED Provider: Dr. Freddy Burnham HPI Narrative: 53 yo female with history of ESRD on HD M/W/F, HTN, GERD, hx gastric sleeve in 2012 s/p revision in June 2023 w/ hx bleeding marginal ulcer at the anastomosis site who presents emergency department for evaluation of hematemesis and bleeding per rectum. The patient states she has been sick for proximally 3 days. She states she vomits many times a day and has noted a moderate to large amount of blood in her emesis. She also states she has had diarrhea every 30 minutes in his noted blood in her diarrhea as well. The patient states she has had hematemesis in the past secondary to stomach ulcers. The patient had a peritoneal dialysis catheter removed at [facility] on 12/23/2023 secondary to an infection. She states that she was getting antibiotics after each dialysis. Her hvac technician residential is Dr. Wang. She was complaining of abdominal pain. She states that she has an intermittent sharp pain which she has had in the past as well. She states the pain is 8/10. [place] [facility] [place]23 with coffee-ground emesis and melanotic stools for several days. She had an EGD that found multiple ulcers and small Tania-Dixon tear with Schatzki's ring and gastritis. There was a question of perforated viscus and she was treated with IV Zosyn. She states that she had gastric bypass surgeon was Dr. Coto at [facility]. Related Data Home Medications ?Medication ?Instructions ?Recorded ?Confirmed ferrous sulfate 325 mg (65 mg 325 mg PO BID 05/11/20 12/05/23 iron) tablet,delayed release cyanocobalamin (vitamin B-12) 1,000 mcg PO DAILY 10/17/20 12/05/23 1,000 mcg tablet pyridoxine (vitamin B6) 50 mg 50 mg PO DAILY 06/06/21 12/05/23 tablet ergocalciferol (vitamin D2) 1,250 1,250 mcg PO PLEITEZ@0900 07/05/21 12/05/23 mcg (50,000 unit) capsule (Vitamin D2) midodrine 5 mg tablet 5 mg PO TID 03/25/23 12/05/23 acetaminophen 500 mg capsule 1,000 mg PO Q8H PRN Pain 08/10/23 12/05/23 (Mapap (acetaminophen)) fluticasone propionate 50 1 spray intranasal DAILY PRN 08/10/23 12/05/23 mcg/actuation nasal Allergy Symptoms spray,suspension smmxwauy-frlucnpb-mtra 45 mg-folic 1 cap PO DAILY 08/10/23 12/05/23 acid 800 mcg-vit K 120 mcg capsule (Bariatric Multivitamins) parenteral amino acid 15% no.5 15 0.5 ea IV MOWEFR@89908/10/23 12/05/23 % combination no.5 intravenous solution (Clinisol SF) sucralfate 1 gram tablet 1 g PO QID 08/10/23 12/05/23 carvedilol 6.25 mg tablet 6.25 mg PO BID 11/19/23 12/05/23 meclizine 25 mg tablet 25 mg PO BID 11/19/23 12/05/23 pantoprazole 40 mg tablet,delayed 40 mg PO DAILY 11/19/23 12/05/23 release potassium chloride 20 mEq 20 meq PO DAILY 11/19/23 12/05/23 tablet,extended release Previous Rx's ?Medication ?Instructions ?Recorded gabapentin 300 mg capsule 300 mg PO TID 30 days #90 caps 06/26/23 melatonin 10 mg capsule 10 mg PO BEDTIME PRN sleep 90 days 06/26/23 #90 caps ondansetron 4 mg disintegrating 4 mg PO Q8H PRN nausea and 08/19/23 tablet vomiting #10 tabs citalopram 20 mg tablet 20 mg PO DAILY 90 days #90 tabs 09/16/23 thiamine HCl (vitamin B1) 100 mg 100 mg PO DAILY 90 days #90 tabs 09/27/23 tablet vitamin A 2,400 mcg capsule 2,400 mcg PO DAILY 90 days #90 caps 09/27/23 Allergies Allergy/AdvReac Type Severity Reaction Status Date / Time ibuprofen Allergy Severe Unknown Verified 12/29/23 07:48 nifedipine Allergy Intermediate hives, leg Verified 12/29/23 07:48 edema Review of Systems Review of Systems: Yes all other systems are reviewed and are negative [facility] Past Medical History Medical History Moderate major depression ESRD on dialysis Physical exam Spondylosis without myelopathy or radiculopathy, lumbar region Spinal stenosis 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 Lumbar back pain with radiculopathy affecting left lower extremity Physical exam (~02/14/21) Peritoneal dialysis catheter in place Polyarthralgia Dyslipidemia Family history of ovarian cancer Abnormal mammogram of right breast Angina pectoris syndrome Chest pain Constipation Nephrosclerosis Renal interstitial fibrosis Obesity (BMI 30-39.9) Back pain GERD (gastroesophageal reflux disease) History of headache HTN (hypertension) Surgical History S/P arteriovenous (AV) graft placement History of sleeve gastrectomy Fistula Hx of colonoscopy Hx of hysterectomy Hx of tubal ligation History of endometrial ablation Family History Family History Father Asthma Mother Asthma Hypertension Ovarian cancer Maternal Grandfather Myocardial infarction Paternal Grandmother Stroke Social History Social History Household Members: None Housing: Apartment Do you presently have visiting nurse or other home services: No Alcohol intake: current Alcohol intake frequency: holidays/special occasions only Alcohol type: beer Comment: Patient doesn't want bed alarm on Patient Tobacco Use Status: Current someday Tobacco user Tobacco use type: Cigarette Cigarettes Per Day: 2 Years Smoked: 10+ e-Cigarette/Vaping Use: Currently Using Second Hand Smoke Exposure: No Advance Directives: Yes Advance Directives Information Provided: No Advance Directives on File: No Advance Directives Date on File: 04/27/20 Do you have a plan to hurt others: No Plan service: No Current occupational status: employed Cognitive needs: No Hearing needs: No Vision needs: Yes (reading glasses) Physical Exam Vital Signs: Vital Signs: Last Vital Signs Temp 98.8 F 12/29/23 13:58 Pulse 111 H 12/29/23 13:58 Resp 12 12/29/23 13:58 BP 133/88 12/29/23 13:58 Pulse Ox 96 12/29/23 13:24 O2 Del Method Room Air 12/29/23 13:24 BMI result Body Mass Index 20.8 Vital signs revealed an elevated heart rate of 106 otherwise unremarkable Exam: General: Awake, appears to be in moderate distress secondary to her abdominal pain, she does have nausea but has not actively vomiting here in the emergency music department chair: Normocephalic, atraumatic EENT: PERRL, Lids normal, sclera normal, conjunctiva normal, nose normal , ears normal, throat without erythema or exudates Neck: Supple, no adenopathy Lung: breath sounds symmetric, no wheezing, rales or rhonchi Chest: symmetric movement, nontender Heart: regular rate and rhythm, normal S1, S2 no murmurs or rubs Abdomen: Patient had a surgical dressing over her abdomen and I remove this, there does not appear to be any erythema and the peritoneal dialysis site is healed with no drainage from the site. She was normoactive bowel sounds with no rebound Rectal: Reddish stool which was strongly Hemoccult positive Back: no vertebral tenderness, no CVAT Extremities: no deformities, moves all extremities symmetrically Neuro: Awake, alert, oriented, normal speech, cranial nerves intact, moves all extremities symmetrically Psych: Pleasant, cooperative Medications Administered Discontinued Medications Generic Name Dose Route Start Last Admin Trade Name Freq PRN Reason Stop Dose Admin Hydromorphone HCl 1 mg 12/29/23 08:09 12/29/23 08:38 Hydromorphone Hcl 1 Mg/Ml Syringe IVPUSH 12/29/23 08:10 1 mg ONCE STA Administration Protocol Sodium Chloride 1,000 mls @ 250 mls/hr 12/29/23 08:09 12/29/23 13:31 Ns IV 12/29/23 12:08 Infused .Q4H STA Infusion Ondansetron HCl 4 mg 12/29/23 08:09 12/29/23 08:38 Ondansetron Hcl 4 Mg/2 Ml Vial IVPUSH 12/29/23 08:10 4 mg ONCE ONE Administration Pantoprazole Sodium 40 mg 12/29/23 12:41 12/29/23 13:31 Pantoprazole Sodium 40 Mg/10 Ml Vial IVPUSH 12/29/23 12:42 40 mg ONCE ONE Administration Medical Decision Making Medical Decision Making MDM Narrative: 53 yo female with history of ESRD on HD M/W/F, HTN, GERD, hx gastric sleeve in 2012 s/p revision in June 2023 w/ hx bleeding marginal ulcer at the anastomosis site who presents emergency department for evaluation of multiple episodes of hematemesis and loose bloody stools per rectum x3 days. The patient had a peritoneal dialysis catheter removed at [facility] on 12/23/2023 secondary to an infection and is currently getting antibiotic after dialysis by Dr. Wang. She was also complaining of significant abdominal pain but she has had similar pain in the past. The [place] [facility] [place] 11/26/2023 with coffee-ground emesis and melanotic stools for several days. She had an EGD that found multiple ulcers and small Tania-Dixon tear with Schatzki's ring and gastritis. There was a question of perforated viscus and she was treated with IV Zosyn. Differential diagnosis: ?Includes but is not limited to upper GI bleed, lower GI bleed, bowel obstruction, infectious peritonitis, anemia, electrolyte abnormalities Course: 11:52 My interpretation patient's laboratory evaluation is as follows: Anemia with an H&H of 7.9 and 24.3 compared to an H&H of 11.9 and 35.5 on 12/09/2023. Potassium elevated 5.6. BUN creatinine elevated 84 and 5.74-baseline. Lipase was normal. CT scan is more consistent with enteritis secondary to her diarrhea and I do not think that she has a partial small-bowel obstructions. Patient's hematocrit drops significantly from her previous value therefore she was ordered to get 1 unit of packed red blood cells. Given her previous EKG I believe that she probably has an upper GI bleed. 14:19 hours I did discuss the patient's presentation with Dr. Wang, her hvac technician residential. He knows her well and states that she is getting IV antibiotics (vancomycin and cefepime) and she will not need another dose until her next dialysis which Dr. Wang felt could be done tomorrow but he will evaluate the patient. I did consult over tiger text, the children librarian Dr. Moody who recommended the patient be admitted and kept on PPIs and check a GI panel/C diff. I did discuss admission over tiger text with the covering hospitalist, Dr. Melgar and the patient will be admitted for further treatment. Admission/Observation Consideration of admission/observation: Escalation of care including admission/observation considered (Yes) Lab Data MDM Lab Attestation statement: I reviewed the patient's lab results. 12/29/23 08:32 12/29/23 08:32 Labs: Lab Results 12/29/23 12/29/23 Range/Units 08:31 08:32 WBC 9.1 (4.8-10.8) X10*3/uL RBC 2.72 L D (4.20-5.50) X10*6/uL Hgb 7.9 L D (12.0-16.0) g/dl Hct 24.3 L D (37.0-47.0) % MCV 89.3 (80.0-98.0) fL MCH 29.0 (27.0-33.0) pg MCHC 32.5 (31.0-35.0) g/dl RDW 17.4 H (11.0-16.0) % Plt Count 325 (160-400) X10*3/uL MPV 9.3 L (9.4-12.3) fL Immature Gran % (Auto) 0.3 (0.0-0.4) % Neut % (Auto) 84.3 H (45-73) % Lymph % (Auto) 12.8 L (20-40) % [place] % (Auto) 2.0 (2-11) % Eos % (Auto) 0.2 (0-4) % Baso % (Auto) 0.4 (0-2) % Lymph # (Auto) 1.2 (1.2-4.9) X10*3/uL [place] # (Auto) 0.2 (0.1-1.2) X10*3/uL Eos # (Auto) 0.0 (0.0-0.4) X10*3/uL Baso # (Auto) 0.0 (0.0-0.2) X10*3/uL Abs Immat Gran (auto) 0.03 (0.00-0.03) X10*3/uL Absolute Neuts (auto) 7.6 (2.0-8.3) x10*3/uL Absolute Nucleated RBC 0.000 (0.0-0.012) X10*3/uL Nucleated RBC % (auto) 0.0 (0.0-0.2) /100WBC PT 15.3 H D (10.9-12.4) SEC INR 1.3 H (0.9-1.1) APTT 30.9 (26.0-36.8) SEC Sodium 139 (135-145) mmol/L Potassium 5.6 H D (3.3-5.1) mmol/L Chloride 106 (96-108) mmol/L Carbon Dioxide 24 (22-29) mmol/L Anion Gap 15 (12-20) BUN 84 H (9-16) mg/dL Creatinine 5.74 H* (0.5-1.4) mg/dL Estim Creat Clear Calc 9.9 Estimated GFR 8 Random Glucose 115 (60-115) mg/dL Lactic Acid 1.6 (0.5-2.0) mmol/L Calcium 9.4 (8.4-10.2) mg/dL Magnesium 1.9 (1.6-2.6) mg/dL Total Bilirubin 0.2 (0.0-1.0) mg/dL AST 12 (5-31) U/L ALT < 6 (0-31) U/L Alkaline Phosphatase 106 (39-117) U/L Troponin I High Sens 4.0 D (<3.5-17.0) ng/L Total Protein 5.5 L (6.5-8.0) g/dL Albumin 2.7 L (3.5-5.0) g/dL Lipase 12 (8-78) U/L Stool Occult Blood POSITIVE (NEGATIVE) Ethyl Alcohol < 10 mg/dL Influenza Type A (PCR) NEGATIVE (Negative) Influenza Type B (PCR) NEGATIVE (Negative) RSV RNA Qual (PCR) NEGATIVE (Negative) SARS-CoV-2 RNA (RT-PCR) NEGATIVE (Negative) Blood Type O Positive Antibody Screen NEGATIVE Crossmatch See Detail Independent Interpretation I performed an independent interpretation of an: EKG Radiology Impression Discussion of test interpretation with radiology: I have reviewed the radiologist's reading. Radiologist Impression: CT abdomen pelvis wo IV con IMPRESSION: Acute enteritis versus partial/intermittent distal small bowel obstruction among other etiologies. Fleischner guidelines were followed. Electronically signed by: Alfonso Lockett MD External Record Review External record reviewed: Inpatient record Chronic Conditions Patient?s care impacted by: Hypertension and Other (End-stage renal disease) Critical Care Time Critical Care Time Critical Care Time: Yes Total Critical Care Time: 45 Attestation: Critical Care: The patient was critically ill with a high probability of imminent or life threatening deterioration. I spent greater than 30 minutes of discontinuous time evaluating the patient,delivering critical care at the bedside, discussing and evaluating pertinent data with consultants. Critical care time does not include time spent performing separately billable procedures or teaching. Total time spent performing critical care was 45 minutes. Discharge Plan Discharge Prescriptions: No Action citalopram 20 mg tablet 20 mg PO DAILY 90 Days Qty: 90 1RF thiamine HCl (vitamin B1) 100 mg tablet 100 mg PO DAILY 90 Days Qty: 90 0RF vitamin A 2,400 mcg capsule 2,400 mcg PO DAILY 90 Days Qty: 90 0RF cyanocobalamin (vitamin B-12) 1,000 mcg Tablet 1,000 mcg PO DAILY ondansetron 4 mg tablet,disintegrating 4 mg PO Q8H PRN (Reason: nausea and vomiting) Qty: 10 0RF sucralfate 1 gram tablet 1 g PO QID acetaminophen [Mapap (acetaminophen)] 500 mg capsule 1,000 mg PO Q8H PRN (Reason: Pain) Clinisol SF 15 % 15 % parenteral solution 0.5 ea IV MOWEFR@0900 Rx Instructions: DIALYSIS MEDICATION Bariatric Multivitamins 45 mg iron- 800 mcg-120 mcg Capsule 1 cap PO DAILY fluticasone propionate 50 mcg/actuation spray,suspension 1 spray intranasal DAILY PRN (Reason: Allergy Symptoms) Rx Instructions: administer into each nostril potassium chloride 20 mEq tablet extended release 20 meq PO DAILY carvedilol 6.25 mg tablet 6.25 mg PO BID pantoprazole 40 mg tablet,delayed release (DR/EC) 40 mg PO DAILY meclizine 25 mg tablet 25 mg PO BID pyridoxine (vitamin B6) 50 mg tablet 50 mg PO DAILY gabapentin 300 mg capsule 300 mg PO TID 30 Days Qty: 90 1RF melatonin 10 mg capsule 10 mg PO BEDTIME PRN (Reason: sleep) 90 Days Qty: 90 1RF ferrous sulfate 325 mg (65 mg iron) tablet,delayed release (DR/EC) 325 mg PO BID ergocalciferol (vitamin D2) [Vitamin D2] 1,250 mcg (50,000 unit) capsule 1,250 mcg PO PLEITEZ@0900 midodrine 5 mg tablet 5 mg PO TID Print Language: Mauritanian
--- NOTE | 2023-12-29 08:10 | ECG_ITS ---
Test Reason : ABDOMINAL PAIN/CHESTPAIN/VOMTING Blood Pressure : / mmHG Vent. Rate : 114 BPM Atrial Rate : 114 BPM P-R Int : 130 ms QRS Dur : 070 ms QT Int : 326 ms P-R-T Axes : 076 060 027 degrees QTc Int : 449 ms Sinus tachycardia Nonspecific T wave abnormality Abnormal ECG When compared with ECG of 09-DEC-2023 20:24, Nonspecific T wave abnormality now evident in Inferior leads Nonspecific T wave abnormality now evident in Lateral leads Referred By: Freddy Burnham Electronically Signed By:CHARLY ODELL MD
[2023-12-29 08:37] LABS: MANUAL DIFF FLAG NO
[2023-12-29] MEDS: ondansetron HCL 4 MG/2 ML VIAL IVPUSH ×2 (08:38→16:33)
[2023-12-29] MEDS: 0.9 % Sodium Chloride 1,000 ML 250 ML IV (08:38)
[2023-12-29] MEDS: HYDROmorphone HCl 1 MG/ML SYRINGE IVPUSH (08:38)
[2023-12-29 08:41] LABS: Basophils Percent Auto 0.4 % (0-2); Eosinophils Percent Auto 0.2 % (0-4); Hematocrit 24.3 % (37.0-47.0); Hemoglobin 7.9 g/dl (12.0-16.0); Imm Gran Abs Auto 0.03 X10*3/uL (0.00-0.03); Imm Gran Pct Auto 0.3 % (0.0-0.4); Lymphocytes Absolute Auto 1.2 X10*3/uL (1.2-4.9); Lymphocytes Percent Auto 12.8 % (20-40); Mean Corpuscular HGB Conc 32.5 g/dl (31.0-35.0); Mean Corpuscular Volume 89.3 fL (80.0-98.0); Mean Platelet Volume 9.3 fL (9.4-12.3); Monocytes Absolute Auto 0.2 X10*3/uL (0.1-1.2); Neutrophils Absolute Auto 7.6 x10*3/uL (2.0-8.3); Neutrophils Percent Auto 84.3 % (45-73); Platelet Count 325 X10*3/uL (160-400); Red Blood Count 2.72 X10*6/uL (4.20-5.50); Red Cell Distribution Width 17.4 % (11.0-16.0); White Blood Count 9.1 X10*3/uL (4.8-10.8)
[2023-12-29 08:45] LABS: OBS Int Ctl Valid YES; OBS1 POSITIVE (NEGATIVE)
[2023-12-29 08:47] LABS: INTERNATIONAL NORM RATIO 1.3 (0.9-1.1); Prothrombin Time 15.3 SEC (10.9-12.4)
[2023-12-29 08:49] LABS: Partial Thromboplastin Time 30.9 SEC (26.0-36.8)
[2023-12-29 08:56] LABS: Lactic Acid 1.6 mmol/L (0.5-2.0)
--- NOTE | 2023-12-29 08:57 | PC.NURSE ---
IV established, labs obtained and sent. no vomiting/diarrhea since arrival. patient was due for dialysis this morning however was unable to go. medicated per the MAR w/ fluids infusing. awaiting ct scan
[2023-12-29 09:00] LABS: Alanine Aminotransferase < 6 U/L (0-31); Albumin Level 2.7 g/dL (3.5-5.0); Alkaline Phosphatase 106 U/L (39-117); Anion Gap 15 (12-20); Aspartate Amino Transferase 12 U/L (5-31); Bilirubin Total 0.2 mg/dL (0.0-1.0); Blood Urea Nitrogen 84 mg/dL (9-16); Calcium 9.4 mg/dL (8.4-10.2); Carbon Dioxide 24 mmol/L (22-29); Chloride 106 mmol/L (96-108); Creatinine Clr Calc Pharmacy 9.9; Estimated Glomerular Filt Rate 8; Ethanol < 10 mg/dL; Glucose Random 115 mg/dL (60-115); Lipase 12 U/L (8-78); Magnesium 1.9 mg/dL (1.6-2.6); Potassium 5.6 mmol/L (3.3-5.1); Sodium 139 mmol/L (135-145); Total Protein 5.5 g/dL (6.5-8.0)
--- NOTE | 2023-12-29 09:00 | MHC.EDTECH ---
EKG was taken and read by the ED provider. blood work completed. Patient resting quietly in her bed and call simon within patient reach.
[2023-12-29 09:39] LABS: Influenza A PCR NEGATIVE (Negative); Influenza B PCR NEGATIVE (Negative); Resp Syncy Virus RNA Qual PCR NEGATIVE (Negative); SARS COV2 PCR INHOUSE NEGATIVE (Negative)
--- NOTE | 2023-12-29 09:57 | PC.NURSE ---
resting quietly in room. second IV established, normal saline and unit of blood infusing. patient reporting improvement w/ pain.
[2023-12-29] MEDS: Pantoprazole Sodium 40 MG/10 ML VIAL IVPUSH (13:31)
--- NOTE | 2023-12-29 14:45 | P.CNGI_ITS ---
History of Present Illness Data of Consult Service Date: 12/29/23 Primary Care Provider: Rozina Lang MD HPI Reason for consult: enteritis 53 year old woman with hx of end-stage renal disease on hemodialysis (MWF), GI bleeding, GERD, hemorrhoids, diverticulosis, gastric sleeve surgery, s/p revision of gastric bypass at [facility] and essential hypertension who I am seeing for assessment for coffee ground emesis and melena Patient was at baseline health until Friday when she noted sudden onset nausea and vomiting with coffee ground emesis and melenic stools. SHe also noted 10 epigastric pain worse with food, She may have ate a meatball around this time. She denies taking anticoagulation and NSAIDs. She reports compliance with her PPI but is an ongoing tobacco smoker. HGB 8 g/dl on admission, was 12 g/dl on prior discharge 12/03 She had her peritoneal dialysis catheter removed on 12/23/2023 secondary to infection. She has been receiving antibiotics with dialysis 3 days a week, cefepime and vancomycin. Imaging: CT A/P; enteritis -clips noted in pouch Prior TESTING: colonoscopy for screening 06/03--no polyps, diverticulosis EGD revealing a toby grade III ulcer- 09/02 EGD: 12/03- gastritis mallor Dixon tear marginal ulcers schatzki ring Several clips applied and hemospray used Review of Systems 2 Review of Systems: Constitutional : No Weight loss, No Fever, No Chills ENT/Mouth : No sore throat, No Rhinorrhea Eyes: No Swelling, No Redness Cardiovascular : No Chest Pain, No SOB, No Edema Respiratory : No Cough, No Sputum, No Wheezing Gastrointestinal : see HPI Genitourinary : NO Dysuria, No Urinary Frequency, No Hematuria, No Urgency Musculoskeletal : No joint pain, No Myalgias, No Joint Swelling Skin : No Skin Lesions, No rash Neuro : + Weakness, No Numbness, No Dizziness, No Headache Psych : No Anxiety/Panic, No Depression Heme/Lymph: No Bruising, No Lymphadenopathy Endocrine : No Polyuria, No Polydipsia All other systems reviewed and are negative. 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 Lumbar back pain with radiculopathy affecting left lower extremity Physical exam (~02/14/21) Peritoneal dialysis catheter in place Polyarthralgia Dyslipidemia Family history of ovarian cancer Abnormal mammogram of right breast Angina pectoris syndrome Chest pain Constipation Nephrosclerosis Renal interstitial fibrosis Obesity (BMI 30-39.9) Back pain GERD (gastroesophageal reflux disease) History of headache HTN (hypertension) Family History Family History Father Asthma Mother Asthma Hypertension Ovarian cancer Maternal Grandfather Myocardial infarction Paternal Grandmother Stroke Surgical History Surgical History S/P arteriovenous (AV) graft placement History of sleeve gastrectomy Fistula Hx of colonoscopy Hx of hysterectomy Hx of tubal ligation History of endometrial ablation Social History Social History Household Members: None Housing: Apartment Do you presently have visiting nurse or other home services: No Alcohol intake: current Alcohol intake frequency: holidays/special occasions only Alcohol type: beer Comment: Patient doesn't want bed alarm on Patient Tobacco Use Status: Current everyday Tobacco user Tobacco use type: Cigarette Cigarettes Per Day: 2 Years Smoked: 10+ e-Cigarette/Vaping Use: Currently Using Second Hand Smoke Exposure: No Advance Directives: Yes Advance Directives Information Provided: No Advance Directives on File: No Advance Directives Date on File: 04/27/20 Do you have a plan to hurt others: No Plan Nutrition Risks: No Nutritional Risk service: No Current occupational status: employed Cognitive needs: No Hearing needs: No Vision needs: Yes (reading glasses) Meds Allergies Allergy/AdvReac Type Severity Reaction Status Date / Time ibuprofen Allergy Severe Unknown Verified 12/29/23 07:48 nifedipine Allergy Intermediate hives, leg Verified 12/29/23 07:48 edema Home Medications ?Medication ?Instructions ?Recorded ?Confirmed ?Last Taken ?Type ferrous sulfate 325 mg (65 mg 325 mg PO BID 05/11/20 12/05/23 11/17/23 History iron) tablet,delayed release cyanocobalamin (vitamin B-12) 1,000 mcg PO DAILY 10/17/20 12/05/23 11/17/23 History 1,000 mcg tablet pyridoxine (vitamin B6) 50 mg 50 mg PO DAILY 06/06/21 12/05/23 11/17/23 History tablet ergocalciferol (vitamin D2) 1,250 1,250 mcg PO PLEITEZ@0900 07/05/21 12/05/23 11/16/23 History mcg (50,000 unit) capsule (Vitamin D2) midodrine 5 mg tablet 5 mg PO TID 03/25/23 12/05/23 11/17/23 History acetaminophen 500 mg capsule 1,000 mg PO Q8H PRN Pain 08/10/23 12/05/23 Unknown History (Mapap (acetaminophen)) fluticasone propionate 50 1 spray intranasal DAILY PRN 08/10/23 12/05/23 08/08/23 History mcg/actuation nasal Allergy Symptoms spray,suspension kjvpycnr-ppjrptem-xpza 45 mg-folic 1 cap PO DAILY 08/10/23 12/05/23 11/17/23 History acid 800 mcg-vit K 120 mcg capsule (Bariatric Multivitamins) parenteral amino acid 15% no.5 15 0.5 ea IV MOWEFR@0900 08/10/23 12/05/23 11/18/23 History % combination no.5 intravenous solution (Clinisol SF) sucralfate 1 gram tablet 1 g PO QID 08/10/23 12/05/23 11/17/23 History carvedilol 6.25 mg tablet 6.25 mg PO BID 11/19/23 12/05/23 11/17/23 History meclizine 25 mg tablet 25 mg PO BID 11/19/23 12/05/23 11/17/23 History pantoprazole 40 mg tablet,delayed 40 mg PO DAILY 11/19/23 12/05/23 11/17/23 History release potassium chloride 20 mEq 20 meq PO DAILY 11/19/23 12/05/23 11/17/23 History tablet,extended release clotrimazole 10 mg chiquita 10 mg PO TID 12/29/23 Unknown History oxycodone 5 mg tablet 5 mg PO Q6H PRN pain 12/29/23 Unknown History sevelamer carbonate 800 mg tablet 1,600 mg PO TID 12/29/23 Unknown History Physical Exam 2 Vital Signs: Vital Signs: Last Vital Signs Temp 98.8 F 12/29/23 13:58 Pulse 111 H 12/29/23 13:58 Resp 12 12/29/23 13:58 BP 133/88 12/29/23 13:58 Pulse Ox 96 12/29/23 13:24 O2 Del Method Room Air 12/29/23 13:24 BMI result Body Mass Index 20.8 EXAM: GENERAL: The patient is thin VITAL SIGNS:see workflow HEENT: Nonicteric sclerae, PERRLA, EOMI. Oropharynx clear. Moist mucous membranes. Conjunctivae appear well perfused. No thyroid mass. CHEST: Chest wall is nontender. HEART: Regular rate and rhythm without murmurs. LUNGS: Clear to auscultation bilaterally. ABDOMEN: Soft, positive bowel sounds, tender upper abdomen, no organomegaly.no flank tenderness SKIN: No rash, no excessive bruising, petechiae, or purpura. NEUROLOGIC: Cranial nerves II-XII intact without motor/sensory deficit. Psych: normal affect Results Labs 12/29/23 18:18 12/29/23 18:18 Labs: Short CBC 12/29/23 Range/Units 08:32 WBC 9.1 (4.8-10.8) X10*3/uL Hgb 7.9 L D (12.0-16.0) g/dl Hct 24.3 L D (37.0-47.0) % Plt Count 325 (160-400) X10*3/uL BMP 12/29/23 08:32 Sodium 139 Potassium 5.6 H D Chloride 106 Carbon Dioxide 24 BUN 84 H Creatinine 5.74 H* Calcium 9.4 Liver Function 12/29/23 Range/Units 08:32 Total Bilirubin 0.2 (0.0-1.0) mg/dL AST 12 (5-31) U/L ALT < 6 (0-31) U/L Alkaline Phosphatase 106 (39-117) U/L Albumin 2.7 L (3.5-5.0) g/dL Imaging CT scan - abdomen: Attestation: I personally reviewed and interpreted this imaging study as follows: (clips noted, air fluid levels, gastric bypass surg) Assessment and Plan (1) Acute GI bleeding: Status: Acute Plan 1/ Supsected enteritis possibly food related with possible MW tear or ulcer bleed PLAN: 1/ Anti emetics 2/ Transfuse for target hgb 9-10 g/dl 3/ PPI 4/ assess response, if no improvement then possible EGD --ok to allow clears and ice chips as tolerated 5/ check gi pcr and c diff if diarrhea given ABX hx Procedures Date of Service Date of Service: 12/29/23
--- NOTE | 2023-12-29 15:26 | P.HPHOSP_ITS ---
History of Present Illness Date of Service: 12/29/23 Attending physician on admission: [facility] Chief Complaint: hematemesis, hematochezia, abd pain Patient is a 53-year-old female with a past medical history significant for ESRD on HD (M/W/F) followed by Dr. Wang, hypertension, GERD and history of gastric sleeve 2013 status post revision 07/03, who presented to the ED today with hematemesis and bloody stools for the past 3 days. She is a poor historian however states she has had melena and maroon-colored stools. She also reports bright red blood in her vomit. She has generalized abdominal pain which she rates an 09/19. She recently had her peritoneal dialysis catheter removed on 12/23/2023 secondary to infection. She has been receiving antibiotics with dialysis 3 days a week, cefepime and vancomycin. She was recently admitted on 11/18, discharged 11/22 for acute GI bleed with melena, coffee-ground emesis and EGD with multiple ulcers, small Tania-Dixon tear, Schatzki's ring and gastritis. She was discharged home with omeprazole BID. Review of Systems 2 Constitutional: Constitutional: Denies chills, Denies fever(s) and Denies headache(s) Eyes: Eyes: Denies change in vision ENT: Denies headache(s), Denies nasal congestion, Denies nasal discharge, Denies nasal obstruction and Denies sore throat Cardiovascular: Cardiovascular: Denies chest pain, Denies rapid heart rate, Denies leg edema and Denies dyspnea Respiratory: Respiratory: Denies chest congestion, Denies cough and Denies dyspnea Gastrointestinal: Gastrointestinal: Reports as per HPI, Reports melena, Reports hematochezia, Reports coffee ground emesis, Reports loose stools, Reports nausea, Reports vomiting and Reports hematemesis Genitourinary: Genitourinary: Denies dysuria and Denies urinary urgency Musculoskeletal: Musculoskeletal: Denies myalgias Integumentary/Breasts: Skin/Breast: Denies rash Neurologic: Denies confusion, Denies headache(s) and Denies memory loss Psychiatric: Psychiatric: Denies confusion and Denies memory loss [facility] Medical History Moderate major depression ESRD on dialysis Physical exam Spondylosis without myelopathy or radiculopathy, lumbar region Spinal stenosis 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 Lumbar back pain with radiculopathy affecting left lower extremity Physical exam (~02/14/21) Peritoneal dialysis catheter in place Polyarthralgia Dyslipidemia Family history of ovarian cancer Abnormal mammogram of right breast Angina pectoris syndrome Chest pain Constipation Nephrosclerosis Renal interstitial fibrosis Obesity (BMI 30-39.9) Back pain GERD (gastroesophageal reflux disease) History of headache HTN (hypertension) Functional capacity: independent ambulation Family History Father Asthma Mother Asthma Hypertension Ovarian cancer Maternal Grandfather Myocardial infarction Paternal Grandmother Stroke Surgical History S/P arteriovenous (AV) graft placement History of sleeve gastrectomy Fistula Hx of colonoscopy Hx of hysterectomy Hx of tubal ligation History of endometrial ablation Social History Household Members: None Housing: Apartment Do you presently have visiting nurse or other home services: Yes ([facility]) Alcohol intake: current Alcohol intake frequency: holidays/special occasions only Alcohol type: beer Comment: Patient doesn't want bed alarm on Patient Tobacco Use Status: Current everyday Tobacco user Tobacco use type: Cigarette Cigarettes Per Day: 3 Years Smoked: 10+ e-Cigarette/Vaping Use: Currently Using Second Hand Smoke Exposure: Yes (MD notified for NRT patch) Advance Directives Date on File: 04/27/20 service: No Current occupational status: employed Cognitive needs: No Hearing needs: No Vision needs: Yes (reading glasses) Meds Allergies Allergy/AdvReac Type Severity Reaction Status Date / Time ibuprofen Allergy Severe Unknown Verified 12/29/23 07:48 nifedipine Allergy Intermediate hives, leg Verified 12/29/23 07:48 edema Home Medications ?Medication ?Instructions ?Recorded ?Confirmed ?Last Taken ?Type ferrous sulfate 325 mg (65 mg 325 mg PO BID PRN Iron Levels 05/11/20 12/29/23 11/17/23 History iron) tablet,delayed release cyanocobalamin (vitamin B-12) 1,000 mcg PO DAILY 10/17/20 12/29/23 12/29/23 History 1,000 mcg tablet pyridoxine (vitamin B6) 50 mg 50 mg PO DAILY 06/06/21 12/29/23 12/29/23 History tablet ergocalciferol (vitamin D2) 1,250 1,250 mcg PO PLEITEZ@0900 07/05/21 12/29/23 12/21/23 History mcg (50,000 unit) capsule (Vitamin D2) midodrine 5 mg tablet 5 mg PO TID 03/25/23 12/29/23 11/17/23 History acetaminophen 500 mg capsule 1,000 mg PO Q8H PRN Pain 08/10/23 12/29/23 Unknown History (Mapap (acetaminophen)) fluticasone propionate 50 1 spray intranasal DAILY PRN 08/10/23 12/29/23 12/29/23 History mcg/actuation nasal Allergy Symptoms spray,suspension rsgwxphu-abwuwxei-ramb 45 mg-folic 1 cap PO DAILY 08/10/23 12/29/23 12/29/23 History acid 800 mcg-vit K 120 mcg capsule (Bariatric Multivitamins) parenteral amino acid 15% no.5 15 0.5 ea IV MOWEFR@0900 08/10/23 12/29/23 11/18/23 History % combination no.5 intravenous solution (Clinisol SF) sucralfate 1 gram tablet 1 g PO BID 08/10/23 12/29/23 11/17/23 History carvedilol 6.25 mg tablet 6.25 mg PO BID 11/19/23 12/29/23 12/29/23 History pantoprazole 40 mg tablet,delayed 40 mg PO DAILY 11/19/23 12/29/23 11/17/23 History release clotrimazole 10 mg chiquita 10 mg PO TID 12/29/23 12/29/23 Unknown History gabapentin 400 mg capsule 400 mg PO BID 12/29/23 12/29/23 12/29/23 History oxycodone 5 mg tablet 5 mg PO Q6H PRN pain 12/29/23 12/29/23 Unknown History potassium chloride 20 mEq 20 meq PO DAILY 12/29/23 12/29/23 Unknown History tablet,extended release sevelamer carbonate 800 mg tablet 1,600 mg PO TIDWM 12/29/23 12/29/23 Unknown History vitamin A 2,400 mcg capsule 2,400 mcg PO DAILY 12/30/23 12/30/23 Unknown History Physical Exam 2 Vital Signs and Narrative: Vital Signs: Last Vital Signs Temp 98.2 F 12/29/23 15:01 Pulse 107 H 12/29/23 15:01 Resp 16 12/29/23 15:01 BP 144/98 H 12/29/23 15:01 Pulse Ox 97 12/29/23 15:01 O2 Del Method Room Air 12/29/23 15:01 BMI result Body Mass Index 20.8 General: AOx3, no acute distress Resp: CTA bilaterally CVS: RRR, +murmur GI: +BS, generalized tenderness, no distention Skin: Warm, dry Extremities: No edema Psych: Appropriate affect Const: General: No confusion Orientation/consciousness: No confusion Neuro: General: No confusion Results Labs 12/30/23 08:18 12/30/23 08:18 Labs: Laboratory Results - last 24 hr 12/29/23 12/29/23 08:31 08:32 MCV 89.3 MCH 29.0 MCHC 32.5 RDW 17.4 H Plt Count 325 MPV 9.3 L Immature Gran % (Auto) 0.3 Neut % (Auto) 84.3 H Lymph % (Auto) 12.8 L Hardeman % (Auto) 2.0 Eos % (Auto) 0.2 Baso % (Auto) 0.4 Lymph # (Auto) 1.2 Hardeman # (Auto) 0.2 Eos # (Auto) 0.0 Baso # (Auto) 0.0 Abs Immat Gran (auto) 0.03 Absolute Neuts (auto) 7.6 Absolute Nucleated RBC 0.000 Nucleated RBC % (auto) 0.0 PT 15.3 H D INR 1.3 H APTT 30.9 Anion Gap 15 Estim Creat Clear Calc 9.9 Estimated GFR 8 Random Glucose 115 Lactic Acid 1.6 Calcium 9.4 Magnesium 1.9 Total Bilirubin 0.2 AST 12 ALT < 6 Alkaline Phosphatase 106 Troponin I High Sens 4.0 D Total Protein 5.5 L Albumin 2.7 L Lipase 12 Stool Occult Blood POSITIVE Ethyl Alcohol < 10 Influenza Type A (PCR) NEGATIVE Influenza Type B (PCR) NEGATIVE RSV RNA Qual (PCR) NEGATIVE SARS-CoV-2 RNA (RT-PCR) NEGATIVE Blood Type O Positive Antibody Screen NEGATIVE Crossmatch See Detail Imaging Radiologist's Impressions: Impressions Abdomen/Pelvis CT 11/18/24 09:14 IMPRESSION: Acute enteritis versus partial/intermittent distal small bowel obstruction among other etiologies. Fleischner guidelines were followed. Electronically signed by: Alfonso Lockett MD 12/29/2023 11:00 AM EST Assessment and Plan (1) Acute GI bleeding: Status: Acute (2) Diarrhea: Status: Acute (3) Abdominal pain: Qualifiers: Abdominal location: generalized Qualified Code(s): R10.84 - Generalized abdominal pain Status: Acute (4) ESRD on dialysis: Status: Acute (5) Severe anemia: Status: Acute (6) History of sleeve gastrectomy: Status: Acute (7) Malnutrition: Status: Acute (8) Underweight: Status: Acute Plan Patient is a 53-year-old female with a past medical history significant for ESRD on HD (M/W/F) followed by Dr. Wang, hypertension, GERD and history of gastric sleeve 2013 status post revision 07/03, who presented to the ED today with hematemesis and bloody stools for the past 3 days. H&H 7.9/24.3, recent hemoglobin [address] Wang. Potassium elevated at 5.6. CT consistent with enteritis secondary to diarrhea. Given 2 units PRBC in ED. GI bleed/abd pain - H&H 7.9/24.3, given 1 unit in ED, 1 additional unit pending - check H&H after transfusion and BMP to evaluate potassium - CT - acute enteritis versus partial/intermittent distal small-bowel obstruction - check GI panel and C diff - IV Protonix - GI consult ESRD on dialysis - dialysis per nephro, likely tonight given blood transfusions - given IV abx after dialysis - cefepime and vanco HTN - continue home meds, one med rec complete Full code VTE prophylaxis: Pneumoboots Patient with recurrent GI bleed requiring blood transfusion and admission for further treatment and monitoring for at least 2 midnights stay. Quality Stroke Does the patient have a stroke diagnosis?: No VTE Prior VTE?: No VTE Risk Level:: Medical - moderate - high VTE Device Contraindication: N/A - Device Ordered VTE Drug Contraindication: Treatment Not Indicated
[2023-12-29] MEDS: 0.9 % Sodium Chloride Flush 3 ML SYRINGE IVFLUSH ×2 (16:28→22:18)
[2023-12-29] MEDS: Lactated Ringers 1,000 ML 80 ML IVCONT (16:29)
[2023-12-29] MEDS: HYDROmorphone HCl 0.5 MG/0.5 ML SYRINGE 0.25 MG IVPUSH (16:33)
[2023-12-29 18:26] LABS: Hematocrit 24.3 % (37.0-47.0); Hemoglobin 8.3 g/dl (12.0-16.0)
[2023-12-29 19:02] LABS: Anion Gap 12 (12-20); Blood Urea Nitrogen 110 mg/dL (9-16); Calcium 8.8 mg/dL (8.4-10.2); Carbon Dioxide 22 mmol/L (22-29); Chloride 112 mmol/L (96-108); Estimated Glomerular Filt Rate 8; Glucose Random 93 mg/dL (60-115); Potassium 5.4 mmol/L (3.3-5.1); Sodium 141 mmol/L (135-145)
--- NOTE | 2023-12-29 21:05 | PHA.MEDREC ---
Addendum entered by Myrna Prince [facility] 12/30/23 13:05: CONTACTED SISTER AGAIN FOR MED LIST, SHE SAID THE PATIENT WOULD BE THE BEST SOURCE. MED REC DONE PER CLAIM HISTORY, PATIENT STATES ALL MEDS FILLED AT [facility] Addendum entered by Myrna Prince, [facility] 12/29/23 22:26: [facility] reviewed and I texted Dr. Gonsales about med rec being complete. I will be following up with family in the morning Original Note: Pharmacy Consult ? Medication Reconciliation Pharmacy has completed the medication reconciliation. Patient was Dc'd from [facility] 12/22 and it looks like Atorvastatin 20mg tabs, Dicyclomine 10mg and brought in some RX bottles and was able to confirm patient has Carvedilol 6.25mg tabs 1 BID filled 11/03 for 30 days at [facility] and confirmed she is taking it BID and took one tab this morning, her Clotrimazole 10mg dissolvable tablet 1 tab TID filled at [facility], She had Midrodine 5g tabs 1 tab TID filled at [facility], Sucralfate 1gm BID, Dicyclomine 10mg 1 daily as needed and stated that was filled at [facility]; the patient states its as needed for anxiety but after telling the patient it is a stomach pill she stated again that she is using it for anxiety, and Gabapentin 400mg 1 BID which looking at the bottle that medication was filled at [facility] on [facility] in [place]. The patient was able to verbally confirm the rest of her medications but when I got to the ones on the [facility] discharge packet (Atorvastatin 20mg once daily, Buspirone 5mg 1 TID, Calcitriol 0.25mcg 1 tab MOWEFR, Dicyclomine 100mg one tab QID, and Mirtazapine 15mg 1 @bedtime) the patient was not sure if she was taking them or not but states everything is filled at [facility]. I called [facility] and they stated they have no claims for Atorvastatin 20mg, Buspirone 5mg, Calcitriol 0.25mcg or Mirtazapine 15 mg. They claimed they haven't filled the Dicyclomine 100mg tabs since September of 2022 but patient had a recent fill on the Rx bottle from this month but I did not see if it was filled at [facility] or not. Family was at bedside and when I went back to speak with them they were gone and ended up taking patients medication back home, the patient stated again everything is filled at [facility] on [address], I have no other pharmacies.
--- NOTE | 2023-12-29 21:56 | PM.CNNEP ---
History of Present Illness Reason for Consult Consult date: 12/29/23 Chief Complaint Chief complaint: Hematemesis, melena, abd pain History of Present Illness Narrative: [facility] consulted for Dialysis management 53-year-old female with a past medical history significant for ESRD on HD (M/W/F) recent PD cath placed in attempt to xfer to [facility] but PD palcement cb pain and recurrent peritonitis and so PD cath removed. Extensive GI history with Bariatric Surgery x2 with revision 06/2023( [facility] --Dr Rosen) cb cont Gi probs and poor nutrtin and gets IDPN. Now adm with UGIB and drop in HB now getting xfused and GI eval, and N/V Last HD monday 12/25 ( [facility]) She has been receiving antibiotics with dialysis 3 days a week, cefepime and vancomycin. She was recently admitted on 11/18, discharged 11/22 for acute GI bleed with melena, coffee-ground emesis and EGD with multiple ulcers, small Tania-Dixon tear, Schatzki's ring and gastritis. She was discharged home with omeprazole BID. Review of Systems Review of Systems Constitutional : No Weight loss, No Fever, No Chills ENT/Mouth : No sore throat, No Rhinorrhea Eyes: No Swelling, No Redness Cardiovascular : No Chest Pain, No SOB, No Edema Respiratory : No Cough, No Sputum, No Wheezing Gastrointestinal : see HPI Genitourinary : NO Dysuria, No Urinary Frequency, No Hematuria, No Urgency Musculoskeletal : No joint pain, No Myalgias, No Joint Swelling Skin : No Skin Lesions, No rash Neuro : + Weakness, No Numbness, No Dizziness, No Headache Psych : No Anxiety/Panic, No Depression Heme/Lymph: No Bruising, No Lymphadenopathy Endocrine : No Polyuria, No Polydipsia All other systems reviewed and are negative. Yes all other systems are reviewed and are negative Constitutional: Denies chills, Denies fever(s) and Denies headache(s) Eyes: Denies change in vision Denies headache(s), Denies nasal congestion, Denies nasal discharge, Denies nasal obstruction and Denies sore throat Cardiovascular: Denies chest pain, Denies rapid heart rate, Denies leg edema and Denies dyspnea Respiratory: Denies chest congestion, Denies cough and Denies dyspnea Gastrointestinal: Reports as per HPI, Reports melena, Reports hematochezia, Reports coffee ground emesis, Reports loose stools, Reports nausea, Reports vomiting and Reports hematemesis Musculoskeletal: Denies myalgias Skin/Breast: Denies rash Denies confusion, Denies headache(s) and Denies memory loss Psychiatric: Denies confusion and Denies memory loss [facility] Past Medical History Medical History Moderate major depression ESRD on dialysis Physical exam Spondylosis without myelopathy or radiculopathy, lumbar region Spinal stenosis 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 Lumbar back pain with radiculopathy affecting left lower extremity Physical exam (~02/14/21) Peritoneal dialysis catheter in place Polyarthralgia Dyslipidemia Family history of ovarian cancer Abnormal mammogram of right breast Angina pectoris syndrome Chest pain Constipation Nephrosclerosis Renal interstitial fibrosis Obesity (BMI 30-39.9) Back pain GERD (gastroesophageal reflux disease) History of headache HTN (hypertension) Family History Family History Father Asthma Mother Asthma Hypertension Ovarian cancer Maternal Grandfather Myocardial infarction Paternal Grandmother Stroke Surgical History Surgical History S/P arteriovenous (AV) graft placement History of sleeve gastrectomy Fistula Hx of colonoscopy Hx of hysterectomy Hx of tubal ligation History of endometrial ablation Social History Social History Household Members: None Housing: Apartment Do you presently have visiting nurse or other home services: No Alcohol intake: current Alcohol intake frequency: holidays/special occasions only Alcohol type: beer Comment: Patient doesn't want bed alarm on Patient Tobacco Use Status: Current everyday Tobacco user Tobacco use type: Cigarette Cigarettes Per Day: 2 Years Smoked: 10+ e-Cigarette/Vaping Use: Currently Using Second Hand Smoke Exposure: No Advance Directives Date on File: 04/27/20 service: No Current occupational status: employed Cognitive needs: No Hearing needs: No Vision needs: Yes (reading glasses) Meds Allergies Allergy/AdvReac Type Severity Reaction Status Date / Time ibuprofen Allergy Severe Unknown Verified 12/29/23 07:48 nifedipine Allergy Intermediate hives, leg Verified 12/29/23 07:48 edema Active Medications: Current Medications Acetaminophen (Acetaminophen 325 Mg Tablet) 650 mg PO Q6H PRN PRN Reason: Pain, Mild (Pain Scale 1-3), fever or headache Calcium Carbonate (Calcium Carbonate 750 Mg Tab.Chew) 750 mg PO Q4H PRN PRN Reason: Heartburn Hydromorphone HCl (Hydromorphone Hcl 0.5 Mg/0.5 Ml Syringe) 0.5 mg IVPUSH Q4H PRN; Protocol PRN Reason: Pain, Severe (Pain Scale 7-10) Hydromorphone HCl (Hydromorphone Hcl 0.5 Mg/0.5 Ml Syringe) 0.25 mg IVPUSH Q4H PRN; Protocol PRN Reason: Pain, Moderate(Pain Scale 4-6) Last Admin: 12/29/23 16:33 Dose: 0.25 mg Lactated Ringer's (Lr) 1,000 mls @ 80 mls/hr IVCONT .[id number] [facility] Last Admin: 12/29/23 16:29 Dose: 80 mls/hr Magnesium Hydroxide (Milk Of Magnesia 30 Ml Oral.Susp) 30 ml PO DAILY PRN PRN Reason: Constipation Melatonin (Melatonin 3 Mg Tablet) 6 mg PO BEDTIME PRN PRN Reason: Insomnia Ondansetron HCl (Ondansetron Hcl 4 Mg/2 Ml Vial) 4 mg IVPUSH Q8H PRN PRN Reason: Nausea and Vomiting Last Admin: 12/29/23 16:33 Dose: 4 mg Pantoprazole Sodium (Pantoprazole Sodium 40 Mg/10 Ml Vial) 40 mg IVPUSH DAILY@0630 [facility] Sodium Chloride (0.9 % Sodium Chloride Flush 3 Ml Syringe) 3 ml IVFLUSH QSHIFT [facility] Last Admin: 12/29/23 16:28 Dose: 3 ml Home Medications ?Medication ?Instructions ?Recorded ?Confirmed ?Last Taken ?Type ferrous sulfate 325 mg (65 mg 325 mg PO BID PRN Iron Levels 05/11/20 12/29/23 11/17/23 History iron) tablet,delayed release cyanocobalamin (vitamin B-12) 1,000 mcg PO DAILY 10/17/20 12/29/23 12/29/23 History 1,000 mcg tablet pyridoxine (vitamin B6) 50 mg 50 mg PO DAILY 06/06/21 12/29/23 12/29/23 History tablet ergocalciferol (vitamin D2) 1,250 1,250 mcg PO PLEITEZ@0900 07/05/21 12/29/23 12/21/23 History mcg (50,000 unit) capsule (Vitamin D2) midodrine 5 mg tablet 5 mg PO TID 03/25/23 12/29/23 12/29/23 History acetaminophen 500 mg capsule 1,000 mg PO Q8H PRN Pain 08/10/23 12/29/23 Unknown History (Mapap (acetaminophen)) fluticasone propionate 50 1 spray intranasal DAILY PRN 08/10/23 12/29/23 12/29/23 History mcg/actuation nasal Allergy Symptoms spray,suspension acsqtddm-ohpfffwm-ghex 45 mg-folic 1 cap PO DAILY 08/10/23 12/29/23 12/29/23 History acid 800 mcg-vit K 120 mcg capsule (Bariatric Multivitamins) parenteral amino acid 15% no.5 15 0.5 ea IV MOWEFR@0900 08/10/23 12/29/23 12/26/23 History % combination no.5 intravenous solution (Clinisol SF) sucralfate 1 gram tablet 1 g PO BID 08/10/23 12/29/23 12/29/23 History carvedilol 6.25 mg tablet 6.25 mg PO BID 11/19/23 12/29/23 12/29/23 History pantoprazole 40 mg tablet,delayed 40 mg PO DAILY 11/19/23 12/29/23 12/29/23 History release atorvastatin 20 mg tablet 20 mg PO DAILY 12/29/23 12/29/23 Unknown History buspirone 5 mg tablet 5 mg PO TID 12/29/23 12/29/23 Unknown History calcitriol 0.25 mcg capsule 0.25 mcg PO MOWEFR 12/29/23 12/29/23 Unknown History clotrimazole 10 mg chiquita 10 mg PO TID 12/29/23 12/29/23 12/29/23 History dicyclomine 10 mg capsule 10 mg PO DAILY PRN Stomach Upset 12/29/23 12/29/23 Unknown History gabapentin 400 mg capsule 400 mg PO BID 12/29/23 12/29/23 12/29/23 History mirtazapine 15 mg tablet 15 mg PO BEDTIME 12/29/23 12/29/23 Unknown History oxycodone 5 mg tablet 5 mg PO Q6H PRN pain 12/29/23 12/29/23 Unknown History Physical Exam Vital Signs: Last Vital Signs Temp 98.6 F 12/29/23 19:49 Pulse 105 H 12/29/23 19:49 Resp 12 12/29/23 19:49 BP 143/85 H 12/29/23 19:49 Pulse Ox 98 12/29/23 19:49 O2 Del Method Room Air 12/29/23 19:49 BMI result Body Mass Index 20.8 Const General: No confusion Orientation/consciousness: No confusion Neuro General: No confusion Results Lab Results 12/29/23 18:18 12/29/23 18:18 Lab results: Chemistry 12/29/23 12/29/23 08:32 18:18 Sodium 139 141 Potassium 5.6 H D 5.4 H Carbon Dioxide 24 22 BUN 84 H 110 H Creatinine 5.74 H* 5.65 H* Calcium 9.4 8.8 D Hematology 12/29/23 12/29/23 08:32 18:18 WBC 9.1 Hgb 7.9 L D 8.3 L Plt Count 325 Assessment and Plan (1) Acute GI bleeding: Status: Acute Plan 1. ESRD: mw Hol HDU 2. UGIB w drop in HB 3. PD cath removed d /t recurrent infection and on vanco/cefipine 4. Anemia: drop in HB acutely--GIB REC: HD 12/30/23; meds a snoted; cont post HD ABx; GI eval will follow w team Procedures Date of Service Date of Service: 12/29/23
[2023-12-29] MEDS: Prochlorperazine Edisylate 10 MG/2 ML VIAL 5 MG IVPUSH (23:21)
[2023-12-30] VITALS (11 sets, daily range): BP systolic 88–143; BP diastolic 57–88; PULSE 71–111; RESP 12–18; TEMP 36.1–37.1; O2SAT 95–100
[2023-12-30] MEDS: Pantoprazole Sodium 40 MG/10 ML VIAL IVPUSH (05:28)
--- NOTE | 2023-12-30 07:25 | P.PNNP_ITS ---
Subjective Subjective Date of Service: 12/30/23 Interval history: pt seen Physical Exam 2 Vital Signs: Vital Signs: Last Vital Signs Temp 98.2 F 12/30/23 03:39 Pulse 111 H 12/30/23 03:39 Resp 16 12/30/23 03:39 BP 115/76 12/30/23 03:39 Pulse Ox 95 12/30/23 03:39 O2 Del Method Room Air 12/30/23 03:39 BMI result Body Mass Index 20.9 cvs: s1s2 Rs; cta ABd; soft Objective Data Labs 12/30/23 08:18 12/30/23 08:18 Labs: Laboratory Results - last 24 hr 12/29/23 12/29/23 12/29/23 08:31 08:32 18:18 WBC 9.1 RBC 2.72 L D Hgb 7.9 L D 8.3 L Hct 24.3 L D 24.3 L MCV 89.3 MCH 29.0 MCHC 32.5 RDW 17.4 H Plt Count 325 MPV 9.3 L Immature Gran % (Auto) 0.3 Neut % (Auto) 84.3 H Lymph % (Auto) 12.8 L [place] % (Auto) 2.0 Eos % (Auto) 0.2 Baso % (Auto) 0.4 Lymph # (Auto) 1.2 [place] # (Auto) 0.2 Eos # (Auto) 0.0 Baso # (Auto) 0.0 Abs Immat Gran (auto) 0.03 Absolute Neuts (auto) 7.6 Absolute Nucleated RBC 0.000 Nucleated RBC % (auto) 0.0 PT 15.3 H D INR 1.3 H APTT 30.9 Sodium 139 141 Potassium 5.6 H D 5.4 H Chloride 106 112 H Carbon Dioxide 24 22 Anion Gap 15 12 BUN 84 H 110 H Creatinine 5.74 H* 5.65 H* Estim Creat Clear Calc 9.9 10.0 Estimated GFR 8 8 Random Glucose 115 93 Lactic Acid 1.6 Calcium 9.4 8.8 D Magnesium 1.9 Total Bilirubin 0.2 AST 12 ALT < 6 Alkaline Phosphatase 106 Troponin I High Sens 4.0 D Total Protein 5.5 L Albumin 2.7 L Lipase 12 Stool Occult Blood POSITIVE Ethyl Alcohol < 10 Influenza Type A (PCR) NEGATIVE Influenza Type B (PCR) NEGATIVE RSV RNA Qual (PCR) NEGATIVE SARS-CoV-2 RNA (RT-PCR) NEGATIVE Blood Type O Positive Antibody Screen NEGATIVE Crossmatch See Detail Procedures Date of Service Date of Service: 12/30/23 Assessment & Plan Assessment and plan (1) Acute GI bleeding: Status: Acute (2) ESRD on dialysis: Status: Acute Plan 1. ESRD: [facility] 2. UGIB w drop in HB 3. PD cath removed d /t recurrent infection and on vanco/cefipine 4. Anemia: drop in HB acutely--GIB REC: HD 12/30/23; meds as noted; cont post HD ABx; GI eval prbc for hb< 7 tachycardic- concerning for active bleed- discussed with hospitalist Time Spent With Patient Time: Total time managing care of this patient today ____ minutes. Progress Note: Quality Stroke Does the patient have a stroke diagnosis?: No
[2023-12-30 08:01] LABS: CDiff Gene PCR NEGATIVE (Negative)
--- NOTE | 2023-12-30 08:25 | P.PNGI_ITS ---
Subjective Subjective Date of Service: 12/30/23 Interval History: she is feeling much better today no more nausea or vomiting no abdominal pain still has some melena feeling hungry Critical Care Time (minutes): 0 Physical Exam 2 Vital Signs: Vital Signs: Last Vital Signs Temp 97.6 F 12/30/23 07:48 Pulse 98 12/30/23 07:48 Resp 17 12/30/23 07:48 BP 118/67 12/30/23 07:48 Pulse Ox 97 12/30/23 07:48 O2 Del Method Room Air 12/30/23 07:48 BMI result Body Mass Index 20.9 EXAM: GENERAL: The patient is thin VITAL SIGNS:see workflow HEENT: Nonicteric sclerae, PERRLA, EOMI. Oropharynx clear. Moist mucous membranes. Conjunctivae appear pale . No thyroid mass. CHEST: Chest wall is nontender. HEART: Regular rate and rhythm without murmurs. LUNGS: Clear to auscultation bilaterally. ABDOMEN: Soft, positive bowel sounds, nontender, no organomegaly.no flank tenderness SKIN: No rash, no excessive bruising, petechiae, or purpura. NEUROLOGIC: Cranial nerves II-XII intact without motor/sensory deficit. Psych: normal affect Objective Data Labs 12/29/23 18:18 12/29/23 18:18 Labs: Laboratory Results - last 24 hr 12/29/23 12/29/23 12/29/23 08:31 08:32 18:18 WBC 9.1 RBC 2.72 L D Hgb 7.9 L D 8.3 L Hct 24.3 L D 24.3 L MCV 89.3 MCH 29.0 MCHC 32.5 RDW 17.4 H Plt Count 325 MPV 9.3 L Immature Gran % (Auto) 0.3 Neut % (Auto) 84.3 H Lymph % (Auto) 12.8 L [place] % (Auto) 2.0 Eos % (Auto) 0.2 Baso % (Auto) 0.4 Lymph # (Auto) 1.2 [place] # (Auto) 0.2 Eos # (Auto) 0.0 Baso # (Auto) 0.0 Abs Immat Gran (auto) 0.03 Absolute Neuts (auto) 7.6 Absolute Nucleated RBC 0.000 Nucleated RBC % (auto) 0.0 PT 15.3 H D INR 1.3 H APTT 30.9 Sodium 139 141 Potassium 5.6 H D 5.4 H Chloride 106 112 H Carbon Dioxide 24 22 Anion Gap 15 12 BUN 84 H 110 H Creatinine 5.74 H* 5.65 H* Estim Creat Clear Calc 9.9 10.0 Estimated GFR 8 8 Random Glucose 115 93 Lactic Acid 1.6 Calcium 9.4 8.8 D Magnesium 1.9 Total Bilirubin 0.2 AST 12 ALT < 6 Alkaline Phosphatase 106 Troponin I High Sens 4.0 D Total Protein 5.5 L Albumin 2.7 L Lipase 12 Stool Occult Blood POSITIVE Ethyl Alcohol < 10 C. difficile Tox B Gene Influenza Type A (PCR) NEGATIVE Influenza Type B (PCR) NEGATIVE RSV RNA Qual (PCR) NEGATIVE SARS-CoV-2 RNA (RT-PCR) NEGATIVE Blood Type O Positive Antibody Screen NEGATIVE Crossmatch See Detail 12/30/23 06:12 WBC RBC Hgb Hct MCV MCH MCHC RDW Plt Count MPV Immature Gran % (Auto) Neut % (Auto) Lymph % (Auto) [place] % (Auto) Eos % (Auto) Baso % (Auto) Lymph # (Auto) [place] # (Auto) Eos # (Auto) Baso # (Auto) Abs Immat Gran (auto) Absolute Neuts (auto) Absolute Nucleated RBC Nucleated RBC % (auto) PT INR APTT Sodium Potassium Chloride Carbon Dioxide Anion Gap BUN Creatinine Estim Creat Clear Calc Estimated GFR Random Glucose Lactic Acid Calcium Magnesium Total Bilirubin AST ALT Alkaline Phosphatase Troponin I High Sens Total Protein Albumin Lipase Stool Occult Blood Ethyl Alcohol C. difficile Tox B Gene NEGATIVE Influenza Type A (PCR) Influenza Type B (PCR) RSV RNA Qual (PCR) SARS-CoV-2 RNA (RT-PCR) Blood Type Antibody Screen Crossmatch Procedures Date of Service Date of Service: 12/30/23 Progress Note: A&P Assessment and plan (1) Upper GI bleeding: Status: Acute Plan 1/ Acute on chronic anemia on background of ESRD and smoking, possible due to food related enteritis--seems to be improving PLAN: 1/ advance diet and allow clears today 2/ If HGB stabilizes and conts to improve clincially then advance diet and change to PO PPI otherwise will consider EGD 3/ advised on smoking cessation Time Spent With Patient Time: Total time managing care of this patient today ____ minutes. Quality Stroke Does the patient have a stroke diagnosis?: No VTE Prior VTE?: No VTE Risk Level:: Medical - moderate - high VTE Device Contraindication: N/A - Device Ordered VTE Drug Contraindication: Treatment Not Indicated
[2023-12-30 08:33] LABS: MANUAL DIFF FLAG NO
[2023-12-30 08:38] LABS: Basophils Percent Auto 0.5 % (0-2); Eosinophils Absolute Auto 0.1 X10*3/uL (0.0-0.4); Eosinophils Percent Auto 1.2 % (0-4); Imm Gran Abs Auto 0.03 X10*3/uL (0.00-0.03); Imm Gran Pct Auto 0.4 % (0.0-0.4); Lymphocytes Absolute Auto 1.9 X10*3/uL (1.2-4.9); Lymphocytes Percent Auto 26.2 % (20-40); Mean Corpuscular HGB Conc 34.3 g/dl (31.0-35.0); Mean Corpuscular Hemoglobin 30.6 pg (27.0-33.0); Mean Corpuscular Volume 89.2 fL (80.0-98.0); Mean Platelet Volume 9.6 fL (9.4-12.3); Monocytes Absolute Auto 0.3 X10*3/uL (0.1-1.2); Monocytes Percent Auto 4.5 % (2-11); Neutrophils Percent Auto 67.2 % (45-73); Platelet Count 247 X10*3/uL (160-400); Red Blood Count 2.22 X10*6/uL (4.20-5.50); Red Cell Distribution Width 16.7 % (11.0-16.0); White Blood Count 7.4 X10*3/uL (4.8-10.8)
[2023-12-30 08:57] LABS: Hemoglobin 6.8 g/dl (12.0-16.0)
[2023-12-30 09:00] LABS: Hematocrit 19.8 % (37.0-47.0)
[2023-12-30 09:03] LABS: Anion Gap 17 (12-20); Calcium 9.2 mg/dL (8.4-10.2); Carbon Dioxide 22 mmol/L (22-29); Chloride 112 mmol/L (96-108); Glucose Random 87 mg/dL (60-115); Potassium 5.2 mmol/L (3.3-5.1); Sodium 146 mmol/L (135-145)
[2023-12-30 09:10] LABS: Creatinine Clr Calc Pharmacy 8.6; Estimated Glomerular Filt Rate 7
[2023-12-30 09:31] LABS: Blood Urea Nitrogen 112 mg/dL (9-16)
--- NOTE | 2023-12-30 10:36 | MHC.CM.PN ---
IMM 12/30/23, Pt lives alone, she is active with [facility], uses a cane, goes to [facility]. PCP confirmed: Rozina Steiner, HCP on file and confirmed: Kristyn. Transport home at [place] is by sister. DCP: home, resume services. CM to follow for DC needs.
[2023-12-30] MEDS: Thiamine HCL 100 MG TABLET PO (11:00)
[2023-12-30] MEDS: Pyridoxine HCl (Vitamin B6) 50 MG TABLET PO (11:00)
[2023-12-30] MEDS: Potassium Chloride ER 20 MEQ TAB.ER.PRT PO (11:00)
[2023-12-30] MEDS: Midodrine HCl 5 MG TABLET PO ×2 (11:00→20:03)
[2023-12-30] MEDS: Sevelamer Carbonate Tablet 800 MG TABLET 1600 MG PO ×2 (11:00→18:18)
[2023-12-30] MEDS: Gabapentin 400 MG CAPSULE PO ×2 (11:01→20:03)
[2023-12-30] MEDS: carvediloL 6.25 MG TABLET PO ×2 (11:01→20:03)
[2023-12-30] MEDS: Cyanocobalamin (Vitamin B-12) 1,000 MCG TABLET 1000 MCG PO (11:01)
[2023-12-30] MEDS: 0.9 % Sodium Chloride Flush 3 ML SYRINGE IVFLUSH (11:08)
--- NOTE | 2023-12-30 13:48 | P.PNIM_ITS ---
Subjective Subjective Date of Service: 12/30/23 Interval History: f/u on gib and acute blood loss anemia, abd pain she reports blood in the stool this morning but has no pain Physical Exam 2 Vital Signs: Vital Signs: Last Vital Signs Temp 97.8 F 12/30/23 13:22 Pulse 71 12/30/23 13:22 Resp 18 12/30/23 13:22 BP 115/71 12/30/23 13:22 Pulse Ox 98 12/30/23 11:11 O2 Del Method Room Air 12/30/23 11:11 BMI result Body Mass Index 20.9 Const: Other: General: AO X 3, no acute distress Resp: CTA bilateral CVS: S1,S2,RRR GI: +BS, NT, no distention Skin: No rash Neuro: motor grossly intact Psych: appropriate affect Objective Data Active Medications Acetaminophen (Acetaminophen 325 Mg Tablet) 650 mg PO Q6H PRN PRN Reason: Pain, Mild (Pain Scale 1-3), fever or headache Buspirone HCl (Buspirone Hcl 5 Mg Tablet) 5 mg PO TID PRN PRN Reason: Anxiety Calcitriol (Calcitriol 0.25 Mcg Capsule) 0.25 mcg PO MOWEFR@0900 [facility] Calcium Carbonate (Calcium Carbonate 750 Mg Tab.Chew) 750 mg PO Q4H PRN PRN Reason: Heartburn Carvedilol (Carvedilol 6.25 Mg Tablet) 6.25 mg PO BID [facility]; Protocol Last Admin: 12/30/23 11:01 Dose: 6.25 mg Documented By: KASIA Clotrimazole (Clotrimazole 10 Mg Brandie) 10 mg MUCOUS MEM TID [facility] Last Admin: 12/30/23 11:00 Dose: 10 mg Documented By: KASIA Cyanocobalamin (Cyanocobalamin (Vitamin B-12) 1,000 Mcg Tablet) 1,000 mcg PO DAILY [facility] Last Admin: 12/30/23 11:01 Dose: 1,000 mcg Documented By: KASIA Dicyclomine HCl (Dicyclomine Hcl 10 Mg Capsule) 10 mg PO DAILY PRN PRN Reason: Stomach Upset Ergocalciferol (Ergocalciferol (Vitamin D2) 1,250 Mcg Capsule) 1,250 mcg PO PLEITEZ@0900 [facility] Escitalopram Oxalate (Escitalopram Oxalate 10 Mg Tablet) 10 mg PO DAILY [facility] Ferrous Sulfate (Ferrous Sulfate 324 Mg Tablet.Dr) 324 mg PO BID PRN PRN Reason: Iron Levels Fluticasone Propionate (Fluticasone Propionate Nasal 16 Gm [place]) 1 spray NOSTRIL-B DAILY PRN PRN Reason: Allergy Symptoms Gabapentin (Gabapentin 400 Mg Capsule) 400 mg PO BID [facility] Last Admin: 12/30/23 11:01 Dose: 400 mg Documented By: KASIA Hydromorphone HCl (Hydromorphone Hcl 0.5 Mg/0.5 Ml Syringe) 0.5 mg IVPUSH Q4H PRN; Protocol PRN Reason: Pain, Severe (Pain Scale 7-10) Hydromorphone HCl (Hydromorphone Hcl 0.5 Mg/0.5 Ml Syringe) 0.25 mg IVPUSH Q4H PRN; Protocol PRN Reason: Pain, Moderate(Pain Scale 4-6) Last Admin: 12/29/23 16:33 Dose: 0.25 mg Documented By: GONZALO Magnesium Hydroxide (Milk Of Magnesia 30 Ml Oral.Susp) 30 ml PO DAILY PRN PRN Reason: Constipation Melatonin (Melatonin 3 Mg Tablet) 6 mg PO BEDTIME PRN PRN Reason: Insomnia Melatonin (Melatonin 3 Mg Tablet) 9 mg PO BEDTIME PRN PRN Reason: sleep Midodrine (Midodrine Hcl 5 Mg Tablet) 5 mg PO TID [facility] Last Admin: 12/30/23 11:00 Dose: 5 mg Documented By: KASIA Multivitamins/Vitamin C (Multivitamin Tablet) 1 tab PO DAILY [facility] Ondansetron HCl (Ondansetron Hcl 4 Mg/2 Ml Vial) 4 mg IVPUSH Q8H PRN PRN Reason: Nausea and Vomiting Last Admin: 12/29/23 16:33 Dose: 4 mg Documented By: GONZALO Pantoprazole Sodium (Pantoprazole Sodium 40 Mg/10 Ml Vial) 40 mg IVPUSH DAILY@0630 [facility] Last Admin: 12/30/23 05:28 Dose: 40 mg Documented By: MARIANNE Potassium Chloride (Potassium Chloride Er 20 Meq Tab.Er.Prt) 20 meq PO DAILY [facility] Last Admin: 12/30/23 11:00 Dose: 20 meq Documented By: KASIA Pyridoxine HCl (Pyridoxine Hcl (Vitamin B6) 50 Mg Tablet) 50 mg PO DAILY [facility] Last Admin: 12/30/23 11:00 Dose: 50 mg Documented By: KASIA Sevelamer Carbonate (Sevelamer Carbonate Tablet 800 Mg Tablet) 1,600 mg PO TIDWM [facility] Last Admin: 12/30/23 13:14 Dose: Not Given Documented By: KASIA Non-Admin Reason: Off unit: Dialysis Sodium Chloride (0.9 % Sodium Chloride Flush 3 Ml Syringe) 3 ml IVFLUSH QSHIFT [facility] Last Admin: 12/30/23 11:08 Dose: 3 ml Documented By: KASIA Thiamine HCl (Thiamine Hcl 100 Mg Tablet) 100 mg PO DAILY [facility] Last Admin: 12/30/23 11:00 Dose: 100 mg Documented By: KASIA Labs 12/30/23 08:18 12/30/23 08:18 Labs: Laboratory Results - last 24 hr 12/29/23 12/29/23 12/30/23 08:32 18:18 06:12 MCV MCH MCHC RDW Plt Count MPV Immature Gran % (Auto) Neut % (Auto) Lymph % (Auto) [place] % (Auto) Eos % (Auto) Baso % (Auto) Lymph # (Auto) [place] # (Auto) Eos # (Auto) Baso # (Auto) Abs Immat Gran (auto) Absolute Neuts (auto) Absolute Nucleated RBC Nucleated RBC % (auto) Anion Gap 12 Estim Creat Clear Calc 10.0 Estimated GFR 8 Random Glucose 93 Calcium 8.8 D C. difficile Tox B Gene NEGATIVE Blood Type O Positive Antibody Screen NEGATIVE Crossmatch See Detail 12/30/23 08:18 MCV 89.2 MCH 30.6 MCHC 34.3 RDW 16.7 H Plt Count 247 MPV 9.6 Immature Gran % (Auto) 0.4 Neut % (Auto) 67.2 Lymph % (Auto) 26.2 [place] % (Auto) 4.5 Eos % (Auto) 1.2 Baso % (Auto) 0.5 Lymph # (Auto) 1.9 [place] # (Auto) 0.3 Eos # (Auto) 0.1 Baso # (Auto) 0.0 Abs Immat Gran (auto) 0.03 Absolute Neuts (auto) 5.0 Absolute Nucleated RBC 0.000 Nucleated RBC % (auto) 0.0 Anion Gap 17 Estim Creat Clear Calc 8.6 Estimated GFR 7 Random Glucose 87 Calcium 9.2 C. difficile Tox B Gene Blood Type Antibody Screen Crossmatch Microbiology Microbiology Results: Microbiology 12/29/23 08:46 Blood Culture - Preliminary Blood - Venous No growth after 24 hours. 12/29/23 08:32 Blood Culture - Preliminary Blood - Venous No growth after 24 hours. Assessment and Plan (1) Upper GI bleeding: Status: Acute (2) Acute GI bleeding: Status: Acute Plan 53-year-old female with a past medical history significant for ESRD on HD (M/W/F) followed by Dr. Wang, hypertension, GERD and history of gastric sleeve 2013 status post revision 07/03, who presented to the ED today with hematemesis and bloody stools for the past 3 days. H&H 7.9/24.3, recent hemoglobin [address] Wang. Potassium elevated at 5.6. CT consistent with enteritis secondary to diarrhea. Given 2 units PRBC in ED. GI bleed/acute blood loss anemia/abd pain.. No pain - H&H 7.9/24.3-->6.8/19.8 after 2 units of rbc, transfuse 2 units of rbcs - repeat h/h after transfusion - CT - acute enteritis versus partial/intermittent distal small-bowel obstruction - check GI panel pending and C diff negative - IV Protonix - GI following ESRD on dialysis - dialysis per nephro, likely tonight given blood transfusions - given IV abx after dialysis - cefepime and vanco HTN - continue home meds, one med rec complete Full code VTE prophylaxis: Pneumoboots Patient with recurrent GI bleed requiring blood transfusion and admission for further treatment and monitoring for at least 2 midnights stay. Quality Stroke Does the patient have a stroke diagnosis?: No VTE Prior VTE?: No VTE Risk Level:: Medical - moderate - high VTE Device Contraindication: N/A - Device Ordered VTE Drug Contraindication: Treatment Not Indicated
[2023-12-30 15:37] LABS: Adenovirus F 40/41 Not Detected (Not Detect.); Astrovirus Not Detected (Not Detect.); Campylobacter Not Detected (Not Detect.); Cryptosporidium Not Detected (Not Detect.); Cyclospora cayetanensis Not Detected (Not Detect.); E. coli EAEC Not Detected (Not Detect.); E. coli EPEC Not Detected (Not Detect.); E. coli ETEC Not Detected (Not Detect.); E. coli STEC Not Detected (Not Detect.); Entamoeba histolytica Not Detected (Not Detect.); Giardia lamblia Not Detected (Not Detect.); Norovirus GI/GII Not Detected (Not Detect.); Plesiomonas shigelloides Not Detected (Not Detect.); Rotavirus A Not Detected (Not Detect.); Salmonella Not Detected (Not Detect.); Sapovirus Not Detected (Not Detect.); Shigella sp./EIEC Not Detected (Not Detect.); Vibrio Not Detected (Not Detect.); Vibrio Cholerae Not Detected (Not Detect.); Yersinia enterocolitica Not Detected (Not Detect.)
[2023-12-30] MEDS: Acetaminophen 325 MG TABLET 650 MG PO (18:17)
[2023-12-30] MEDS: ondansetron HCL 4 MG/2 ML VIAL IVPUSH (18:17)
[2023-12-30] MEDS: HYDROmorphone HCl 0.5 MG/0.5 ML SYRINGE IVPUSH (20:01)
[2023-12-31] VITALS (12 sets, daily range): BP systolic 92–120; BP diastolic 38–72; PULSE 70–85; RESP 16–20; TEMP 36.4–37.5; O2SAT 96–100
[2023-12-31] MEDS: Pantoprazole Sodium 40 MG/10 ML VIAL IVPUSH (05:48)
[2023-12-31] MEDS: HYDROmorphone HCl 0.5 MG/0.5 ML SYRINGE IVPUSH ×3 (06:20→21:02)
[2023-12-31] MEDS: Lactated Ringers 1,000 ML 80 ML IVCONT (08:50)
--- NOTE | 2023-12-31 08:58 | P.PNGI_ITS ---
Subjective Subjective Date of Service: 12/31/23 Interval History: still having melena but no abdominal pain no nausea or vomiting feeling much better and back to baseline Critical Care Time (minutes): 0 Physical Exam 2 Vital Signs: Vital Signs: Last Vital Signs Temp 98.1 F 12/31/23 08:37 Pulse 78 12/31/23 08:37 Resp 16 12/31/23 08:37 BP 119/72 12/31/23 08:37 Pulse Ox 99 12/31/23 08:37 O2 Del Method Room Air 12/31/23 08:37 BMI result Body Mass Index 20.9 EXAM: GENERAL: The patient is thin VITAL SIGNS:see workflow HEENT: Nonicteric sclerae, PERRLA, EOMI. Oropharynx clear. Moist mucous membranes. Conjunctivae appear well perfused. No thyroid mass. CHEST: Chest wall is nontender. HEART: Regular rate and rhythm without murmurs. LUNGS: Clear to auscultation bilaterally. ABDOMEN: Soft, positive bowel sounds, nontender, no organomegaly.no flank tenderness SKIN: No rash, no excessive bruising, petechiae, or purpura. NEUROLOGIC: Cranial nerves II-XII intact without motor/sensory deficit. Psych: normal affect left arm AV fistula Objective Data Labs 12/30/23 08:18 12/30/23 08:18 Labs: Laboratory Results - last 24 hr 12/29/23 12/30/23 12/30/23 08:32 06:12 08:18 WBC 7.4 RBC 2.22 L Hgb 6.8 L* Hct 19.8 L* MCV 89.2 MCH 30.6 MCHC 34.3 RDW 16.7 H Plt Count 247 MPV 9.6 Immature Gran % (Auto) 0.4 Neut % (Auto) 67.2 Lymph % (Auto) 26.2 [place] % (Auto) 4.5 Eos % (Auto) 1.2 Baso % (Auto) 0.5 Lymph # (Auto) 1.9 [place] # (Auto) 0.3 Eos # (Auto) 0.1 Baso # (Auto) 0.0 Abs Immat Gran (auto) 0.03 Absolute Neuts (auto) 5.0 Absolute Nucleated RBC 0.000 Nucleated RBC % (auto) 0.0 Sodium 146 H Potassium 5.2 H Chloride 112 H Carbon Dioxide 22 Anion Gap 17 BUN 112 H Creatinine 6.57 H* Estim Creat Clear Calc 8.6 Estimated GFR 7 Random Glucose 87 Calcium 9.2 Stl C. cayetanensis PCR Not Detected Stool Rotavirus A PCR Not Detected Stl Adenov F 40/41 PCR Not Detected Stool Astrovirus (PCR) Not Detected Stool Campylobacter PCR Not Detected Stool Cryptosporidium PCR Not Detected Stl Sh Tox Pr E STEC PCR Not Detected Stool E coli O157 PCR Not applicable Stl Enterotoxigenic E PCR Not Detected Stool EPEC (PCR) Not Detected Stool EAEC (PCR) Not Detected Stl E. histolytica PCR Not Detected Stool Giardia Lamblia PCR Not Detected Stl P. shigelloides PCR Not Detected Stool Salmonella PCR Not Detected Stool Sapovirus (PCR) Not Detected Stl Shigella/EIEC PCR Not Detected St Y.enterocolitica PCR Not Detected Stool Vibrio (PCR) Not Detected Stl Vibrio cholerae PCR Not Detected Stl Norovirus GI/GII PCR Not Detected Blood Type O Positive Antibody Screen NEGATIVE Crossmatch See Detail Microbiology Microbiology Results: Microbiology 12/29/23 08:46 Blood - Venous Blood Culture - Preliminary No growth after 24 hours. 12/29/23 08:32 Blood - Venous Blood Culture - Preliminary No growth after 24 hours. Procedures Date of Service Date of Service: 12/31/23 Progress Note: A&P Assessment and plan (1) Acute GI bleeding: Status: Acute Plan 1/ enteritis and abdominal pain with melena, clinically much better, maybe old blood that she is passing from enteritis PLAN: 1/ EGD today for further assessment, depending on results maybe abale to advance diet Time Spent With Patient Time: Total time managing care of this patient today ____ minutes. Quality Stroke Does the patient have a stroke diagnosis?: No VTE Prior VTE?: No VTE Risk Level:: Medical - moderate - high VTE Device Contraindication: N/A - Device Ordered VTE Drug Contraindication: Treatment Not Indicated
--- NOTE | 2023-12-31 09:04 | P.CONAN_ITS ---
[facility] Active Problems Active Problems: All Active Problems Acute anemia (Acute) Abdominal pain (Acute) Acute GI bleeding (Acute) Underweight (Acute) Suprapubic pain (Acute) Syncope (Acute) Schatzki's ring (Acute) Marginal ulcer (Acute) Gastritis (Acute) Esophagitis (Acute) Severe anemia (Acute) Upper GI bleeding (Acute) Idiopathic hypotension (Acute) ESRD on dialysis (Acute) Moderate major depression (Acute) Systolic murmur (Acute) Malnutrition (Acute) Diarrhea (Acute) Pre-op examination (Acute) Non-cardiac chest pain (Acute) Polyp of right nasal cavity (Acute) Numbness (Acute) Palpitations (Acute) Urinary and fecal incontinence (Acute) Anxiety and depression (Acute) Chronic low back pain (Acute) Fatigue (Acute) Nasal polyp, benign (Acute) Anxiety and depression (Acute) LLQ abdominal pain (Acute) Tubular adenoma of colon (Acute) Anxiety (Acute) Chronic renal insufficiency (Acute) History of sleeve gastrectomy (Acute) Spinal stenosis (Acute) 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 (Acute) Lumbar back pain with radiculopathy affecting left lower extremity (Acute) GERD (gastroesophageal reflux disease) (Acute) Polyarthralgia (Acute) Dyslipidemia (Acute) Family history of ovarian cancer (Acute) Abnormal mammogram of right breast (Acute) Chest pain (Acute) Obesity (BMI 30-39.9) (Acute) HTN (hypertension) (Acute) Past Medical History Medical History Moderate major depression ESRD on dialysis Physical exam Spondylosis without myelopathy or radiculopathy, lumbar region Spinal stenosis 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 Lumbar back pain with radiculopathy affecting left lower extremity Physical exam (~02/14/21) Peritoneal dialysis catheter in place Polyarthralgia Dyslipidemia Family history of ovarian cancer Abnormal mammogram of right breast Angina pectoris syndrome Chest pain Constipation Nephrosclerosis Renal interstitial fibrosis Obesity (BMI 30-39.9) Back pain GERD (gastroesophageal reflux disease) History of headache HTN (hypertension) Functional capacity: independent ambulation Family History Family History Father Asthma Mother Asthma Hypertension Ovarian cancer Maternal Grandfather Myocardial infarction Paternal Grandmother Stroke Family history of problems with anesthesia: No Surgical History Surgical History S/P arteriovenous (AV) graft placement History of sleeve gastrectomy Fistula Hx of colonoscopy Hx of hysterectomy Hx of tubal ligation History of endometrial ablation History of Problems with Anesthesia: No Social History Social History Household Members: None Housing: Apartment Do you presently have visiting nurse or other home services: No Alcohol intake: current Alcohol intake frequency: holidays/special occasions only Alcohol type: beer Comment: Patient doesn't want bed alarm on Patient Tobacco Use Status: Current everyday Tobacco user Tobacco use type: Cigarette Cigarettes Per Day: 3 Years Smoked: 10+ e-Cigarette/Vaping Use: Currently Using Second Hand Smoke Exposure: Yes (MD notified for NRT patch) Advance Directives Date on File: 04/27/20 service: No Current occupational status: employed Cognitive needs: No Hearing needs: No Vision needs: Yes (reading glasses) Meds Allergies Allergy/AdvReac Type Severity Reaction Status Date / Time ibuprofen Allergy Severe Unknown Verified 12/29/23 07:48 nifedipine Allergy Intermediate hives, leg Verified 12/29/23 07:48 edema Active Medications: Current Medications Acetaminophen (Acetaminophen 325 Mg Tablet) 650 mg PO Q6H PRN PRN Reason: Pain, Mild (Pain Scale 1-3), fever or headache Last Admin: 12/30/23 18:17 Dose: 650 mg Buspirone HCl (Buspirone Hcl 5 Mg Tablet) 5 mg PO TID PRN PRN Reason: Anxiety Calcitriol (Calcitriol 0.25 Mcg Capsule) 0.25 mcg PO MOWEFR@0900 [facility] Last Admin: 12/31/23 07:25 Dose: Not Given Calcium Carbonate (Calcium Carbonate 750 Mg Tab.Chew) 750 mg PO Q4H PRN PRN Reason: Heartburn Carvedilol (Carvedilol 6.25 Mg Tablet) 6.25 mg PO BID [facility]; Protocol Last Admin: 12/30/23 20:03 Dose: 6.25 mg Clotrimazole (Clotrimazole 10 Mg Brandie) 10 mg MUCOUS MEM TID [facility] Last Admin: 12/31/23 07:26 Dose: Not Given Cyanocobalamin (Cyanocobalamin (Vitamin B-12) 1,000 Mcg Tablet) 1,000 mcg PO DAILY [facility] Last Admin: 12/31/23 07:27 Dose: Not Given Dicyclomine HCl (Dicyclomine Hcl 10 Mg Capsule) 10 mg PO DAILY PRN PRN Reason: Stomach Upset Ergocalciferol (Ergocalciferol (Vitamin D2) 1,250 Mcg Capsule) 1,250 mcg PO PLEITEZ@0900 [facility] Escitalopram Oxalate (Escitalopram Oxalate 10 Mg Tablet) 10 mg PO DAILY [facility] Ferrous Sulfate (Ferrous Sulfate 324 Mg Tablet.Dr) 324 mg PO BID PRN PRN Reason: Iron Levels Fluticasone Propionate (Fluticasone Propionate Nasal 16 Gm [place]) 1 spray NOSTRIL-B DAILY PRN PRN Reason: Allergy Symptoms Gabapentin (Gabapentin 400 Mg Capsule) 400 mg PO BID [facility] Last Admin: 12/30/23 20:03 Dose: 400 mg Hydromorphone HCl (Hydromorphone Hcl 0.5 Mg/0.5 Ml Syringe) 0.5 mg IVPUSH Q4H PRN; Protocol PRN Reason: Pain, Severe (Pain Scale 7-10) Last Admin: 12/31/23 06:20 Dose: 0.5 mg Hydromorphone HCl (Hydromorphone Hcl 0.5 Mg/0.5 Ml Syringe) 0.25 mg IVPUSH Q4H PRN; Protocol PRN Reason: Pain, Moderate(Pain Scale 4-6) Last Admin: 12/29/23 16:33 Dose: 0.25 mg Lactated Ringer's (Lr) 1,000 mls @ 80 mls/hr IVCONT .[id number] [facility] Last Admin: 12/31/23 08:50 Dose: 80 mls/hr Magnesium Hydroxide (Milk Of Magnesia 30 Ml Oral.Susp) 30 ml PO DAILY PRN PRN Reason: Constipation Melatonin (Melatonin 3 Mg Tablet) 6 mg PO BEDTIME PRN PRN Reason: Insomnia Melatonin (Melatonin 3 Mg Tablet) 9 mg PO BEDTIME PRN PRN Reason: sleep Midodrine (Midodrine Hcl 5 Mg Tablet) 5 mg PO TID [facility] Last Admin: 12/30/23 20:03 Dose: 5 mg Multivitamins/Vitamin C (Multivitamin Tablet) 1 tab PO DAILY [facility] Last Admin: 12/31/23 07:27 Dose: Not Given Naloxone HCl (Naloxone Hcl 0.4 Mg/Ml Vial) 0.04 mg IVPUSH Q5M PRN PRN Reason: Excessive sedation or RR < 8 Ondansetron HCl (Ondansetron Hcl 4 Mg/2 Ml Vial) 4 mg IVPUSH Q8H PRN PRN Reason: Nausea and Vomiting Last Admin: 12/30/23 18:17 Dose: 4 mg Pantoprazole Sodium (Pantoprazole Sodium 40 Mg/10 Ml Vial) 40 mg IVPUSH DAILY@0630 [facility] Last Admin: 12/31/23 05:48 Dose: 40 mg Potassium Chloride (Potassium Chloride Er 20 Meq Tab.Er.Prt) 20 meq PO DAILY [facility] Last Admin: 12/31/23 07:27 Dose: Not Given Pyridoxine HCl (Pyridoxine Hcl (Vitamin B6) 50 Mg Tablet) 50 mg PO DAILY [facility] Last Admin: 12/31/23 07:27 Dose: Not Given Sevelamer Carbonate (Sevelamer Carbonate Tablet 800 Mg Tablet) 1,600 mg PO TIDWM [facility] Last Admin: 12/31/23 07:25 Dose: Not Given Sodium Chloride (0.9 % Sodium Chloride Flush 3 Ml Syringe) 3 ml IVFLUSH QSHIFT [facility] Last Admin: 12/31/23 03:47 Dose: Not Given Thiamine HCl (Thiamine Hcl 100 Mg Tablet) 100 mg PO DAILY [facility] Last Admin: 12/31/23 07:32 Dose: Not Given Home Medications ?Medication ?Instructions ?Recorded ?Confirmed ?Last Taken ?Type ferrous sulfate 325 mg (65 mg 325 mg PO BID PRN Iron Levels 05/11/20 12/29/23 11/17/23 History iron) tablet,delayed release cyanocobalamin (vitamin B-12) 1,000 mcg PO DAILY 10/17/20 12/29/23 12/29/23 History 1,000 mcg tablet pyridoxine (vitamin B6) 50 mg 50 mg PO DAILY 06/06/21 12/29/23 12/29/23 History tablet ergocalciferol (vitamin D2) 1,250 1,250 mcg PO PLEITEZ@0900 07/05/21 12/29/23 12/21/23 History mcg (50,000 unit) capsule (Vitamin D2) midodrine 5 mg tablet 5 mg PO TID 03/25/23 12/29/23 11/17/23 History acetaminophen 500 mg capsule 1,000 mg PO Q8H PRN Pain 08/10/23 12/29/23 Unknown History (Mapap (acetaminophen)) fluticasone propionate 50 1 spray intranasal DAILY PRN 08/10/23 12/29/23 12/29/23 History mcg/actuation nasal Allergy Symptoms spray,suspension [id number] 45 mg-folic 1 cap PO DAILY 08/10/23 12/29/23 12/29/23 History acid 800 mcg-vit K 120 mcg capsule (Bariatric Multivitamins) parenteral amino acid 15% no.5 15 0.5 ea IV MOWEFR@0900 08/10/23 12/29/23 11/18/23 History % combination no.5 intravenous solution (Clinisol SF) sucralfate 1 gram tablet 1 g PO BID 08/10/23 12/29/23 11/17/23 History carvedilol 6.25 mg tablet 6.25 mg PO BID 11/19/23 12/29/23 12/29/23 History pantoprazole 40 mg tablet,delayed 40 mg PO DAILY 11/19/23 12/29/23 11/17/23 History release clotrimazole 10 mg brandie 10 mg PO TID 12/29/23 12/29/23 Unknown History gabapentin 400 mg capsule 400 mg PO BID 12/29/23 12/29/23 12/29/23 History oxycodone 5 mg tablet 5 mg PO Q6H PRN pain 12/29/23 12/29/23 Unknown History potassium chloride 20 mEq 20 meq PO DAILY 12/29/23 12/29/23 Unknown History tablet,extended release sevelamer carbonate 800 mg tablet 1,600 mg PO TIDWM 12/29/23 12/29/23 Unknown History vitamin A 2,400 mcg capsule 2,400 mcg PO DAILY 12/30/23 12/30/23 Unknown History Exam Height,Weight and Vital Signs: Height 5 ft 4 in Weight 55.3 kg Last Vital Signs Temp 98.1 F 12/31/23 08:37 Pulse 78 12/31/23 08:37 Resp 16 12/31/23 08:37 BP 119/72 12/31/23 08:37 Pulse Ox 99 12/31/23 08:37 O2 Del Method Room Air 12/31/23 08:37 Pertinent Lab Results Pertinent Lab Results: Laboratory Tests 12/29/23 12/29/23 12/29/23 08:31 08:32 18:18 WBC 9.1 RBC 2.72 L D Hgb 7.9 L D 8.3 L Hct 24.3 L D 24.3 L MCV 89.3 MCH 29.0 MCHC 32.5 RDW 17.4 H Plt Count 325 MPV 9.3 L Immature Gran % (Auto) 0.3 Neut % (Auto) 84.3 H Lymph % (Auto) 12.8 L Runnels % (Auto) 2.0 Eos % (Auto) 0.2 Baso % (Auto) 0.4 Lymph # (Auto) 1.2 Runnels # (Auto) 0.2 Eos # (Auto) 0.0 Baso # (Auto) 0.0 Abs Immat Gran (auto) 0.03 Absolute Neuts (auto) 7.6 Absolute Nucleated RBC 0.000 Nucleated RBC % (auto) 0.0 PT 15.3 H D INR 1.3 H APTT 30.9 Sodium 139 141 Potassium 5.6 H D 5.4 H Chloride 106 112 H Carbon Dioxide 24 22 Anion Gap 15 12 BUN 84 H 110 H Creatinine 5.74 H* 5.65 H* Estim Creat Clear Calc 9.9 10.0 Estimated GFR 8 8 Random Glucose 115 93 Lactic Acid 1.6 Calcium 9.4 8.8 D Magnesium 1.9 Total Bilirubin 0.2 AST 12 ALT < 6 Alkaline Phosphatase 106 Troponin I High Sens 4.0 D Total Protein 5.5 L Albumin 2.7 L Lipase 12 Stool Occult Blood POSITIVE Stl C. cayetanensis PCR Stool Rotavirus A PCR Stl Adenov F 40/41 PCR Stool Astrovirus (PCR) Stool Campylobacter PCR Stool Cryptosporidium PCR Stl Sh Tox Pr E STEC PCR Stool E coli O157 PCR Stl Enterotoxigenic E PCR Stool EPEC (PCR) Stool EAEC (PCR) Stl E. histolytica PCR Stool Giardia Lamblia PCR Stl P. shigelloides PCR Stool Salmonella PCR Stool Sapovirus (PCR) Stl Shigella/EIEC PCR St Y.enterocolitica PCR Stool Vibrio (PCR) Stl Vibrio cholerae PCR Stl Norovirus GI/GII PCR Ethyl Alcohol < 10 C. difficile Tox B Gene Influenza Type A (PCR) NEGATIVE Influenza Type B (PCR) NEGATIVE RSV RNA Qual (PCR) NEGATIVE SARS-CoV-2 RNA (RT-PCR) NEGATIVE Blood Type O Positive Antibody Screen NEGATIVE Crossmatch See Detail 12/30/23 12/30/23 06:12 08:18 WBC 7.4 RBC 2.22 L Hgb 6.8 L* Hct 19.8 L* MCV 89.2 MCH 30.6 MCHC 34.3 RDW 16.7 H Plt Count 247 MPV 9.6 Immature Gran % (Auto) 0.4 Neut % (Auto) 67.2 Lymph % (Auto) 26.2 Runnels % (Auto) 4.5 Eos % (Auto) 1.2 Baso % (Auto) 0.5 Lymph # (Auto) 1.9 Runnels # (Auto) 0.3 Eos # (Auto) 0.1 Baso # (Auto) 0.0 Abs Immat Gran (auto) 0.03 Absolute Neuts (auto) 5.0 Absolute Nucleated RBC 0.000 Nucleated RBC % (auto) 0.0 PT INR APTT Sodium 146 H Potassium 5.2 H Chloride 112 H Carbon Dioxide 22 Anion Gap 17 BUN 112 H Creatinine 6.57 H* Estim Creat Clear Calc 8.6 Estimated GFR 7 Random Glucose 87 Lactic Acid Calcium 9.2 Magnesium Total Bilirubin AST ALT Alkaline Phosphatase Troponin I High Sens Total Protein Albumin Lipase Stool Occult Blood Stl C. cayetanensis PCR Not Detected Stool Rotavirus A PCR Not Detected Stl Adenov F 40/41 PCR Not Detected Stool Astrovirus (PCR) Not Detected Stool Campylobacter PCR Not Detected Stool Cryptosporidium PCR Not Detected Stl Sh Tox Pr E STEC PCR Not Detected Stool E coli O157 PCR Not applicable Stl Enterotoxigenic E PCR Not Detected Stool EPEC (PCR) Not Detected Stool EAEC (PCR) Not Detected Stl E. histolytica PCR Not Detected Stool Giardia Lamblia PCR Not Detected Stl P. shigelloides PCR Not Detected Stool Salmonella PCR Not Detected Stool Sapovirus (PCR) Not Detected Stl Shigella/EIEC PCR Not Detected St Y.enterocolitica PCR Not Detected Stool Vibrio (PCR) Not Detected Stl Vibrio cholerae PCR Not Detected Stl Norovirus GI/GII PCR Not Detected Ethyl Alcohol C. difficile Tox B Gene NEGATIVE Influenza Type A (PCR) Influenza Type B (PCR) RSV RNA Qual (PCR) SARS-CoV-2 RNA (RT-PCR) Blood Type Antibody Screen Crossmatch Airway Mallampati Class: II (top front loose tooth, told increase risk of losing it) TM Dist: >3cm Neck ROM: Full Heart: rrr Lungs: cta Assessment and Plan Assessment Anesthesia Assessment: Anesthesia Plan Discussed and Chart Reviewed Final Anesthetic Review Family History of Problems with Anesthesia: No History of Problems with Anesthesia: No NPO: Yes ASA Class: III Final Preanesthetic Review: No Changes in Pt Med Stat, Meds/Allgs Chart Reviewed and Consent Obtained/Reviewed Patient Risk: Intermediate Procedure Risk: Intermediate Anesthetic Plan Anesthetic Plan: MAC: Disposition: Standard PACU
--- NOTE | 2023-12-31 09:28 | MHC.SHP ---
Pre-Procedural Eval Section A - 24 Hr Update-Section A only Date of Service: 12/31/23 The patient is an INPATIENT: Yes The patient has been examined within 24 hours of the surgical procedure. The History & Physical has been completed within 30 days and I have reviewed it.: Yes Section B - Complete if H&P > 30 days Chief Complaint: Hematemesis, melena, abd pain Allergies: Allergies Allergy/AdvReac Type Severity Reaction Status Date / Time ibuprofen Allergy Severe Unknown Verified 12/29/23 07:48 nifedipine Allergy Intermediate hives, leg Verified 12/29/23 07:48 edema Plan Diagnosis/Plan: Unchanged I have reviewed the history and physical and performed a pertinent physical examination on my patient. No changes have occurred unless specified. Time Spent With Patient Time: Total time managing care of this patient today ____ minutes.
--- NOTE | 2023-12-31 09:43 | W.PM.OPN ---
Operative Note Operative Note Date of Service: 12/31/23 Narrative: Procedure Description: EGD Indication: [] Anesthesia: MAC FLEXIBLE TRANSORAL UPPER GASTROINTESTINAL ENDOSCOPY UPPER ENDOSCOPY Consent: Indications for the procedure and potential complications of bleeding, perforation, reaction to medications and missed diagnosis were discussed with the patient and informed consent was obtained. Instrument: Olympus GIF H 190 J mid size upper endoscope Monitoring: Vital signs and clinical assessment, continuous EKG monitoring, Pulse oximetry, Carbon Dioxide monitoring and blood pressure monitoring were done throughout the procedure. Procedure: The patient was placed in the left lateral decubitis position and pre-procedure medications were administered and a bite block was placed. The endoscope was inserted into the mouth and advanced under direct vision to the third part of duodenum. A careful inspection was made as the upper endoscope was withdrawn including a retroflexed examination of the proximal stomach; Findings and interventions are described below. Findings: Larynx:normal Esophagus: GE junction at 38 cm, diaphragm hiatus at 38 cm, clips from prior EGD noted Stomach pouch: patchy erythema with edema, severe with proximal large S shaped toby grade III ulcer about 12 mm in length. distal pouch clips noted on prior ulcerations but no active bleeding seen Jejunum: around anastamosis patchy erythema noted Intervention: none, no active bleeding Impression/Findings: gastritis jejunitis gastric pouch ulcers PLAN: Continue with high dose PO PPI (use capsule, open it and mix with apple sauce otherwise absorption will be suboptimal) and add carafate 10 ml BID--ensure compliance GERD precautions smoking cessation strongly encouraged please obtain duplex to blood supply and r/o mesenteric ischemia
[2023-12-31 11:26] LABS: MANUAL DIFF FLAG NO
--- NOTE | 2023-12-31 11:29 | HO.PM.IMPN ---
Subjective Subjective Date of Service: 12/31/23 Interval History: reportd vasquez stool yesterday, hh better post transfusion egd today Physical Exam Vital Signs: Vital Signs: Last Vital Signs Temp 97.8 F 12/31/23 10:01 Pulse 73 12/31/23 10:14 Resp 16 12/31/23 10:14 BP 103/51 L 12/31/23 10:14 Pulse Ox 100 12/31/23 10:14 O2 Del Method Room Air 12/31/23 10:14 BMI result Body Mass Index 20.9 Const: Other: General: AO X 3, no acute distress Resp: CTA bilateral CVS: S1,S2,RRR GI: +BS, NT, no distention Skin: No rash Neuro: motor grossly intact Psych: appropriate affect Objective Data Active Medications Acetaminophen (Acetaminophen 325 Mg Tablet) 650 mg PO Q6H PRN PRN Reason: Pain, Mild (Pain Scale 1-3), fever or headache Last Admin: 12/30/23 18:17 Dose: 650 mg Documented By: KASIA Buspirone HCl (Buspirone Hcl 5 Mg Tablet) 5 mg PO TID PRN PRN Reason: Anxiety Calcitriol (Calcitriol 0.25 Mcg Capsule) 0.25 mcg PO MOWEFR@0900 [facility] Last Admin: 12/31/23 07:25 Dose: Not Given Documented By: KASIA Non-Admin Reason: held for egd Calcium Carbonate (Calcium Carbonate 750 Mg Tab.Chew) 750 mg PO Q4H PRN PRN Reason: Heartburn Carvedilol (Carvedilol 6.25 Mg Tablet) 6.25 mg PO BID [facility]; Protocol Last Admin: 12/30/23 20:03 Dose: 6.25 mg Documented By: MCKINLEY Clotrimazole (Clotrimazole 10 Mg Brandie) 10 mg MUCOUS MEM TID [facility] Last Admin: 12/31/23 07:26 Dose: Not Given Documented By: KASIA Non-Admin Reason: held for EGD Cyanocobalamin (Cyanocobalamin (Vitamin B-12) 1,000 Mcg Tablet) 1,000 mcg PO DAILY [facility] Last Admin: 12/31/23 07:27 Dose: Not Given Documented By: KASIA Non-Admin Reason: held for EGD Dicyclomine HCl (Dicyclomine Hcl 10 Mg Capsule) 10 mg PO DAILY PRN PRN Reason: Stomach Upset Ergocalciferol (Ergocalciferol (Vitamin D2) 1,250 Mcg Capsule) 1,250 mcg PO PLEITEZ@0900 [facility] Escitalopram Oxalate (Escitalopram Oxalate 10 Mg Tablet) 10 mg PO DAILY [facility] Ferrous Sulfate (Ferrous Sulfate 324 Mg Tablet.Dr) 324 mg PO BID PRN PRN Reason: Iron Levels Fluticasone Propionate (Fluticasone Propionate Nasal 16 Gm [place]) 1 spray NOSTRIL-B DAILY PRN PRN Reason: Allergy Symptoms Gabapentin (Gabapentin 400 Mg Capsule) 400 mg PO BID [facility] Last Admin: 12/30/23 20:03 Dose: 400 mg Documented By: MCKINLEY Hydromorphone HCl (Hydromorphone Hcl 0.5 Mg/0.5 Ml Syringe) 0.5 mg IVPUSH Q4H PRN; Protocol PRN Reason: Pain, Severe (Pain Scale 7-10) Last Admin: 12/31/23 06:20 Dose: 0.5 mg Documented By: MCKINLEY Hydromorphone HCl (Hydromorphone Hcl 0.5 Mg/0.5 Ml Syringe) 0.25 mg IVPUSH Q4H PRN; Protocol PRN Reason: Pain, Moderate(Pain Scale 4-6) Last Admin: 12/29/23 16:33 Dose: 0.25 mg Documented By: GONZALO Lactated Ringer's (Lr) 1,000 mls @ 80 mls/hr IVCONT .[id number] [facility] Last Admin: 12/31/23 08:50 Dose: 80 mls/hr Documented By: NANCY Magnesium Hydroxide (Milk Of Magnesia 30 Ml Oral.Susp) 30 ml PO DAILY PRN PRN Reason: Constipation Melatonin (Melatonin 3 Mg Tablet) 6 mg PO BEDTIME PRN PRN Reason: Insomnia Melatonin (Melatonin 3 Mg Tablet) 9 mg PO BEDTIME PRN PRN Reason: sleep Midodrine (Midodrine Hcl 5 Mg Tablet) 5 mg PO TID [facility] Last Admin: 12/30/23 20:03 Dose: 5 mg Documented By: MCKINLEY Multivitamins/Vitamin C (Multivitamin Tablet) 1 tab PO DAILY [facility] Last Admin: 12/31/23 07:27 Dose: Not Given Documented By: KASIA Non-Admin Reason: held for EGD Naloxone HCl (Naloxone Hcl 0.4 Mg/Ml Vial) 0.04 mg IVPUSH Q5M PRN PRN Reason: Excessive sedation or RR < 8 Ondansetron HCl (Ondansetron Hcl 4 Mg/2 Ml Vial) 4 mg IVPUSH Q8H PRN PRN Reason: Nausea and Vomiting Last Admin: 12/30/23 18:17 Dose: 4 mg Documented By: KASIA Pantoprazole Sodium (Pantoprazole Sodium 40 Mg/10 Ml Vial) 40 mg IVPUSH DAILY@0630 [facility] Last Admin: 12/31/23 05:48 Dose: 40 mg Documented By: MCKINLEY Potassium Chloride (Potassium Chloride Er 20 Meq Tab.Er.Prt) 20 meq PO DAILY [facility] Last Admin: 12/31/23 07:27 Dose: Not Given Documented By: KASIA Non-Admin Reason: held for EGD Pyridoxine HCl (Pyridoxine Hcl (Vitamin B6) 50 Mg Tablet) 50 mg PO DAILY [facility] Last Admin: 12/31/23 07:27 Dose: Not Given Documented By: KASIA Non-Admin Reason: held for EGD Sevelamer Carbonate (Sevelamer Carbonate Tablet 800 Mg Tablet) 1,600 mg PO TIDWM [facility] Last Admin: 12/31/23 07:25 Dose: Not Given Documented By: KASIA Non-Admin Reason: held for EGD Sodium Chloride (0.9 % Sodium Chloride Flush 3 Ml Syringe) 3 ml IVFLUSH QSHIFT [facility] Last Admin: 12/31/23 03:47 Dose: Not Given Documented By: MCKINLEY Non-Admin Reason: Pain Thiamine HCl (Thiamine Hcl 100 Mg Tablet) 100 mg PO DAILY [facility] Last Admin: 12/31/23 07:32 Dose: Not Given Documented By: KASIA Non-Admin Reason: held for egd Labs 12/31/23 10:30 12/31/23 10:30 Labs: Laboratory Results - last 24 hr 12/29/23 12/30/23 08:32 06:12 Stl C. cayetanensis PCR Not Detected Stool Rotavirus A PCR Not Detected Stl Adenov F 40/41 PCR Not Detected Stool Astrovirus (PCR) Not Detected Stool Campylobacter PCR Not Detected Stool Cryptosporidium PCR Not Detected Stl Sh Tox Pr E STEC PCR Not Detected Stool E coli O157 PCR Not applicable Stl Enterotoxigenic E PCR Not Detected Stool EPEC (PCR) Not Detected Stool EAEC (PCR) Not Detected Stl E. histolytica PCR Not Detected Stool Giardia Lamblia PCR Not Detected Stl P. shigelloides PCR Not Detected Stool Salmonella PCR Not Detected Stool Sapovirus (PCR) Not Detected Stl Shigella/EIEC PCR Not Detected St Y.enterocolitica PCR Not Detected Stool Vibrio (PCR) Not Detected Stl Vibrio cholerae PCR Not Detected Stl Norovirus GI/GII PCR Not Detected Blood Type O Positive Antibody Screen NEGATIVE Crossmatch See Detail Microbiology Microbiology Results: Microbiology 12/29/23 08:46 Blood Culture - Preliminary Blood - Venous No growth after 48 hours. 12/29/23 08:32 Blood Culture - Preliminary Blood - Venous No growth after 48 hours. Assessment and Plan (1) Upper GI bleeding: Status: Acute (2) Acute GI bleeding: Status: Acute Plan 53-year-old female with a past medical history significant for ESRD on HD (M/W/F) followed by Dr. Wang, hypertension, GERD and history of gastric sleeve 2013 status post revision 07/03, who presented to the ED today with hematemesis and bloody stools for the past 3 days. H&H 7.9/24.3, recent hemoglobin [address] Wang. Potassium elevated at 5.6. CT consistent with enteritis secondary to diarrhea. Given 2 units PRBC in ED. GI bleed/acute blood loss anemia/abd pain.. No pain - H&H 7.9/24.3-->6.8/19.8 after 2 units of rbc, transfuse 2 units of rbcs - h/h better after transfusion -EGD today: gastritis jejunitis gastric pouch ulcers PLAN: Continue with high dose PO PPI (use capsule, open it and mix with apple sauce otherwise absorption will be suboptimal) and add carafate 10 ml BID--ensure compliance GERD precautions smoking cessation strongly encouraged duplex to r/o mesenteric ischemia - CT - acute enteritis versus partial/intermittent distal small-bowel obstruction - check GI panel pending and C diff negative - IV Protonix to - GI following ESRD on dialysis - dialysis per nephro, likely tonight given blood transfusions - given IV abx after dialysis - cefepime and vanco HTN - continue home meds, one med rec complete Full code VTE prophylaxis: Pneumoboots Patient with recurrent GI bleed requiring blood transfusion and admission for further treatment and monitoring for at least 2 midnights stay. Quality Stroke Does the patient have a stroke diagnosis?: No VTE Prior VTE?: No VTE Risk Level:: Medical - moderate - high VTE Device Contraindication: N/A - Device Ordered VTE Drug Contraindication: Treatment Not Indicated
[2023-12-31 11:31] LABS: Basophils Percent Auto 0.4 % (0-2); Eosinophils Absolute Auto 0.3 X10*3/uL (0.0-0.4); Eosinophils Percent Auto 3.8 % (0-4); Hematocrit 28.7 % (37.0-47.0); Hemoglobin 9.7 g/dl (12.0-16.0); Imm Gran Abs Auto 0.04 X10*3/uL (0.00-0.03); Imm Gran Pct Auto 0.6 % (0.0-0.4); Lymphocytes Absolute Auto 2.4 X10*3/uL (1.2-4.9); Mean Corpuscular HGB Conc 33.8 g/dl (31.0-35.0); Mean Corpuscular Hemoglobin 30.2 pg (27.0-33.0); Mean Corpuscular Volume 89.4 fL (80.0-98.0); Mean Platelet Volume 9.5 fL (9.4-12.3); Monocytes Absolute Auto 0.4 X10*3/uL (0.1-1.2); Monocytes Percent Auto 5.5 % (2-11); Neutrophils Absolute Auto 3.9 x10*3/uL (2.0-8.3); Neutrophils Percent Auto 55.7 % (45-73); Platelet Count 224 X10*3/uL (160-400); Red Blood Count 3.21 X10*6/uL (4.20-5.50); Red Cell Distribution Width 18.4 % (11.0-16.0); White Blood Count 6.9 X10*3/uL (4.8-10.8)
[2023-12-31 11:49] LABS: Anion Gap 14 (12-20); Blood Urea Nitrogen 43 mg/dL (9-16); Calcium 8.7 mg/dL (8.4-10.2); Carbon Dioxide 30 mmol/L (22-29); Chloride 101 mmol/L (96-108); Creatinine Clr Calc Pharmacy 13.9; Estimated Glomerular Filt Rate 12; Glucose Random 126 mg/dL (60-115); Potassium 4.6 mmol/L (3.3-5.1); Sodium 140 mmol/L (135-145)
[2023-12-31] MEDS: Sucralfate 1 GM TABLET PO (16:15)
[2023-12-31] MEDS: Midodrine HCl 5 MG TABLET PO ×2 (16:15→21:02)
[2023-12-31] MEDS: Sevelamer Carbonate Tablet 800 MG TABLET 1600 MG PO (16:15)
[2023-12-31] MEDS: Omeprazole 40 MG CAPSULE.DR PO (16:15)
[2023-12-31] MEDS: Gabapentin 400 MG CAPSULE PO (21:02)
[2023-12-31] MEDS: carvediloL 6.25 MG TABLET PO (21:02)
[2023-12-31] MEDS: 0.9 % Sodium Chloride Flush 3 ML SYRINGE IVFLUSH (23:26)
[2024-01-01] VITALS: BP 93/50; PULSE 77; RESP 18; TEMP 36.9; O2SAT 94
[2024-01-01] MEDS: HYDROmorphone HCl 0.5 MG/0.5 ML SYRINGE IVPUSH ×3 (02:54→14:02)
[2024-01-01 04:00] VITALS: BP 105/62; PULSE 73; RESP 20; TEMP 36.6; O2SAT 96
[2024-01-01] MEDS: Omeprazole 40 MG CAPSULE.DR PO ×2 (05:46→17:37)
[2024-01-01 07:15] LABS: MANUAL DIFF FLAG NO
[2024-01-01 07:18] LABS: Basophils Percent Auto 0.5 % (0-2); Eosinophils Absolute Auto 0.3 X10*3/uL (0.0-0.4); Eosinophils Percent Auto 5.2 % (0-4); Hematocrit 26.1 % (37.0-47.0); Hemoglobin 8.9 g/dl (12.0-16.0); Imm Gran Abs Auto 0.03 X10*3/uL (0.00-0.03); Imm Gran Pct Auto 0.5 % (0.0-0.4); Lymphocytes Absolute Auto 2.7 X10*3/uL (1.2-4.9); Lymphocytes Percent Auto 41.2 % (20-40); Mean Corpuscular HGB Conc 34.1 g/dl (31.0-35.0); Mean Corpuscular Volume 87.9 fL (80.0-98.0); Mean Platelet Volume 9.4 fL (9.4-12.3); Monocytes Absolute Auto 0.4 X10*3/uL (0.1-1.2); Monocytes Percent Auto 5.8 % (2-11); Neutrophils Absolute Auto 3.1 x10*3/uL (2.0-8.3); Neutrophils Percent Auto 46.8 % (45-73); Platelet Count 237 X10*3/uL (160-400); Red Blood Count 2.97 X10*6/uL (4.20-5.50); Red Cell Distribution Width 17.3 % (11.0-16.0); White Blood Count 6.6 X10*3/uL (4.8-10.8)
[2024-01-01 07:31] LABS: Anion Gap 12 (12-20); Blood Urea Nitrogen 44 mg/dL (9-16); Calcium 8.9 mg/dL (8.4-10.2); Carbon Dioxide 28 mmol/L (22-29); Chloride 99 mmol/L (96-108); Creatinine Clr Calc Pharmacy 12.3; Estimated Glomerular Filt Rate 10; Glucose Random 87 mg/dL (60-115); Potassium 4.7 mmol/L (3.3-5.1); Sodium 134 mmol/L (135-145)
[2024-01-01 08:00] VITALS: BP 100/57; PULSE 74; RESP 18; TEMP 36.6; O2SAT 100
[2024-01-01 09:03] VITALS: O2SAT 94
[2024-01-01] MEDS: Gabapentin 400 MG CAPSULE PO (10:22)
[2024-01-01] MEDS: Potassium Chloride ER 20 MEQ TAB.ER.PRT PO (10:22)
[2024-01-01] MEDS: Thiamine HCL 100 MG TABLET PO (10:23)
[2024-01-01] MEDS: Sevelamer Carbonate Tablet 800 MG TABLET 1600 MG PO ×2 (10:23→14:00)
[2024-01-01] MEDS: carvediloL 6.25 MG TABLET PO (10:23)
[2024-01-01] MEDS: Midodrine HCl 5 MG TABLET PO ×2 (10:23→17:37)
[2024-01-01] MEDS: Escitalopram Oxalate 10 MG TABLET PO (10:24)
[2024-01-01] MEDS: Cyanocobalamin (Vitamin B-12) 1,000 MCG TABLET 1000 MCG PO (10:24)
[2024-01-01] MEDS: Sucralfate 1 GM TABLET PO ×2 (10:24→17:37)
[2024-01-01] MEDS: Multivitamin TABLET 1 TAB PO (10:24)
[2024-01-01] MEDS: Pyridoxine HCl (Vitamin B6) 50 MG TABLET PO (10:24)
[2024-01-01] MEDS: 0.9 % Sodium Chloride Flush 3 ML SYRINGE IVFLUSH (10:24)
--- NOTE | 2024-01-01 10:51 | P.DS_ITS ---
DS: Providers Provider Date of Service: 01/01/24 Date of admission: 12/29/23 15:52 Primary care physician: Rozina Lang MD Consults: 12/29/23 13:25 Consult to Gastroenterology Stat Consulting Provider: Tom Moody Reason for consultation: Hematemesis, lower GI bleed, anemia, dialysis patient Has provider been notified: Yes Consult to Nephrology Stat Consulting Provider: [facility] Reason for consultation: Hematemesis, lower GI bleed, anemia, treated by Dr. Wang DS: Diagnosis Discharge Diagnosis (1) Upper GI bleeding: Status: Acute (2) Acute GI bleeding: Status: Acute DS: Summary Hospital Course Hospital Course: A 53-year-old female with a medical history of end-stage renal disease (ESRD) on hemodialysis (Friday/Friday/Friday) under the care of Dr. Wang, hypertension, GERD, and a gastric sleeve procedure in 2012 (revised on 07/03), presented to the ED with complaints of hematemesis and dark, bloody stools for the past three days. Initial labs showed H&H of 7.9/24.3, with a recent hemoglobin of [address] Wang. She was transfused 2 units of RBCs initially. The following day, her H&H dropped further to 6.8/19.8, and she received an additional 2 units of RBCs (a total of 4 units), resulting in improved levels. An EGD performed on 12/[address] Moody revealed gastritis, jejunitis, and gastric pouch ulcers. Recommendations included: - Continue high-dose oral PPI (use capsules, open and mix with applesauce for optimal absorption). - Add Carafate 10 mL twice daily, with emphasis on compliance. - Implement GERD precautions and encourage smoking cessation. 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 The patient was advised to follow up with vascular surgery on an outpatient basis. ESRD on dialysis - dialysis per nephro, likely tonight given blood transfusions - given IV abx after dialysis - cefepime and vanco HTN - continue home meds, one med rec complete Quality: Safe Use of Opioids Does Pt have an Active Cancer Diagnosis on the Problem List?: No Quality: Stroke Does the patient have a stroke diagnosis?: No Physical Exam Vital Signs: Vital Signs: Last Vital Signs Temp 97.9 F 01/01/24 08:00 Pulse 74 01/01/24 08:00 Resp 18 01/01/24 08:00 BP 100/57 L 01/01/24 08:00 Pulse Ox 100 01/01/24 08:00 O2 Del Method Room Air 01/01/24 08:00 BMI result Body Mass Index 20.9 DS: Data Data Completed and Pending Completed studies during hospitalization [Text1]: Procedures Control Bleeding in Gastrointestinal Tract, Via Natural or Artificial Opening Endoscopic (11/19/23) Excision of Stomach, Pylorus, Via Natural or Artificial Opening Endoscopic, Diagnostic (08/10/23) Introduction of Mineral-based Topical Hemostatic Agent into Upper GI, Via Natural or Artificial Opening Endoscopic, [employer] 6 (11/19/23) Performance of Urinary Filtration, Intermittent, Less than 6 Hours Per Day (11/19/23) Transfusion of Nonautologous Red Blood Cells into Peripheral Vein, Percutaneous Approach (08/10/23) Labs on day of discharge: Laboratory Results - last 24 hr 12/31/23 01/01/24 10:30 07:01 WBC 6.9 6.6 RBC 3.21 L D 2.97 L Hgb 9.7 L D 8.9 L Hct 28.7 L D 26.1 L MCV 89.4 87.9 MCH 30.2 30.0 MCHC 33.8 34.1 RDW 18.4 H 17.3 H Plt Count 224 237 MPV 9.5 9.4 Immature Gran % (Auto) 0.6 H 0.5 H Neut % (Auto) 55.7 46.8 Lymph % (Auto) 34.0 41.2 H [place] % (Auto) 5.5 5.8 Eos % (Auto) 3.8 5.2 H Baso % (Auto) 0.4 0.5 Lymph # (Auto) 2.4 2.7 [place] # (Auto) 0.4 0.4 Eos # (Auto) 0.3 0.3 Baso # (Auto) 0.0 0.0 Abs Immat Gran (auto) 0.04 H 0.03 Absolute Neuts (auto) 3.9 3.1 Absolute Nucleated RBC 0.000 0.000 Nucleated RBC % (auto) 0.0 0.0 Sodium 140 134 L Potassium 4.6 4.7 Chloride 101 99 Carbon Dioxide 30 H 28 Anion Gap 14 12 BUN 43 H 44 H Creatinine 4.07 H* 4.60 H* Estim Creat Clear Calc 13.9 12.3 Estimated GFR 12 10 Random Glucose 126 H 87 Calcium 8.7 8.9 Preliminary micro results at discharge 12/29/23 08:46 Blood Culture - Preliminary Blood - Venous No growth after 48 hours. 12/29/23 08:32 Blood Culture - Preliminary Blood - Venous No growth after 48 hours. Discharge Plan Discharge Anticipated Discharge Date/Time: 01/01/24 10:37 Patient Disposition: Home, Self-Care Discharge Diagnosis: Acute blood loss anemia, Gi bleeding, gastric ulcer Referrals: Rozina Nicole MD [Primary Care Provider] - 1 Week Discharge Medications: New omeprazole 40 mg Capsule,Delayed Release(Dr/Ec) 40 mg PO BID@0630,1630 Qty: 180 0RF Rx Instructions: Open the capsule and mix with apple sauce for better absorption sucralfate [Carafate] 100 mg/mL suspension 10 ml PO BID Qty: 1000 0RF Continued citalopram 20 mg tablet 20 mg PO DAILY 90 Days Qty: 90 1RF thiamine HCl (vitamin B1) 100 mg tablet 100 mg PO DAILY 90 Days Qty: 90 0RF cyanocobalamin (vitamin B-12) 1,000 mcg Tablet 1,000 mcg PO DAILY clotrimazole 10 mg chiquita 10 mg PO TID oxycodone 5 mg tablet 5 mg PO Q6H PRN (Reason: pain) gabapentin 400 mg Capsule 400 mg PO BID sevelamer carbonate 800 mg tablet 1,600 mg PO TIDWM potassium chloride 20 mEq tablet extended release 20 meq PO DAILY vitamin A 2,400 mcg capsule 2,400 mcg PO DAILY sucralfate 1 gram tablet 1 g PO BID acetaminophen [Mapap (acetaminophen)] 500 mg capsule 1,000 mg PO Q8H PRN (Reason: Pain) Clinisol SF 15 % 15 % parenteral solution 0.5 ea IV MOWEFR@0900 Rx Instructions: DIALYSIS MEDICATION Bariatric Multivitamins 45 mg iron- 800 mcg-120 mcg Capsule 1 cap PO DAILY fluticasone propionate 50 mcg/actuation spray,suspension 1 spray intranasal DAILY PRN (Reason: Allergy Symptoms) Rx Instructions: administer into each nostril carvedilol 6.25 mg tablet 6.25 mg PO BID pyridoxine (vitamin B6) 50 mg tablet 50 mg PO DAILY melatonin 10 mg capsule 10 mg PO BEDTIME PRN (Reason: sleep) 90 Days Qty: 90 1RF ferrous sulfate 325 mg (65 mg iron) tablet,delayed release (DR/EC) 325 mg PO BID PRN (Reason: Iron Levels) ergocalciferol (vitamin D2) [Vitamin D2] 1,250 mcg (50,000 unit) capsule 1,250 mcg PO PLEITEZ@0900 midodrine 5 mg tablet 5 mg PO TID Discontinued pantoprazole 40 mg tablet,delayed release (DR/EC) 40 mg PO DAILY Discharge Orders: Discharge Order (Routine); Ordered 01/01/24 Ordered By: Lul Pagan Diet: Advance to usual diet Activity on Discharge: As tolerated Stand Alone Forms: Patient Portal Discharge page Print Language: Vietnamese Care Plan Goals: recovery from anemia and stomach ulcer Health Concerns: stomach ulcer anemia Plan of Treatment: take Prilosec as recommended (open the capsule and mix with apple sauce for better absoroption) take carafate as recommended follow up with Dr. Moody in 2 to 3 weeks follow up with vascular surgeon Assessment: see above
--- NOTE | 2024-01-01 11:40 | HO.POSTANES ---
Post Anesthesia Evaluation Post Anesthesia Evaluation Date of Service: 12/31/23 Vital Signs: Vital Signs Temp Pulse Resp BP Pulse Ox O2 Del Method 01/01/24 08:00 97.9 F 74 18 100/57 L 100 Room Air 01/01/24 04:00 97.9 F 73 20 105/62 96 Room Air 01/01/24 00:00 98.5 F 77 18 93/50 L 94 Room Air Anesthesia: Monitored Mental Status: Awake Pain Control: Satisfactory Nausea/Vomiting: None Hydration: Adequate Anesthesia-Related Issues: No Anes. Related Issues
[2024-01-01 12:00] VITALS: BP 100/61; PULSE 70; RESP 18; TEMP 36.7; O2SAT 99
--- NOTE | 2024-01-01 12:42 | MHC.CM.PN ---
Pt has been medically cleared for DC. She will go home via private transport and resume her VNA services from [facility].
--- NOTE | 2024-01-01 13:27 | PM.PNNEP ---
Subjective Subjective Date of Service: 01/04/24 Interval history: reportd vasquez stool yesterday, hh better post transfusion egd today Physical Exam Vital Signs: Vital Signs: Last Vital Signs Temp 98.0 F 01/01/24 12:00 Pulse 70 01/01/24 12:00 Resp 18 01/01/24 12:00 BP 100/61 01/01/24 12:00 Pulse Ox 99 01/01/24 12:00 O2 Del Method Room Air 01/01/24 12:00 BMI result Body Mass Index 20.9 cvs: s1s2 Rs; cta Abd: soft Objective Data Labs 01/01/24 07:01 01/01/24 07:01 Labs: Laboratory Results - last 24 hr 01/01/24 07:01 WBC 6.6 RBC 2.97 L Hgb 8.9 L Hct 26.1 L MCV 87.9 MCH 30.0 MCHC 34.1 RDW 17.3 H Plt Count 237 MPV 9.4 Immature Gran % (Auto) 0.5 H Neut % (Auto) 46.8 Lymph % (Auto) 41.2 H [place] % (Auto) 5.8 Eos % (Auto) 5.2 H Baso % (Auto) 0.5 Lymph # (Auto) 2.7 [place] # (Auto) 0.4 Eos # (Auto) 0.3 Baso # (Auto) 0.0 Abs Immat Gran (auto) 0.03 Absolute Neuts (auto) 3.1 Absolute Nucleated RBC 0.000 Nucleated RBC % (auto) 0.0 Sodium 134 L Potassium 4.7 Chloride 99 Carbon Dioxide 28 Anion Gap 12 BUN 44 H Creatinine 4.60 H* Estim Creat Clear Calc 12.3 Estimated GFR 10 Random Glucose 87 Calcium 8.9 Microbiology Microbiology Results: Microbiology 12/29/23 08:46 Blood - Venous Blood Culture - Preliminary No growth after 48 hours. 12/29/23 08:32 Blood - Venous Blood Culture - Preliminary No growth after 48 hours. Procedures Date of Service Date of Service: 01/04/24 Assessment & Plan Assessment and plan (1) ESRD on dialysis: Status: Acute Plan 1. ESRD: [facility] 2. UGIB w drop in HB 3. PD cath removed d /t recurrent infection and on vanco/cefipine 4. Anemia: drop in HB acutely--GIB REC: HD 12/29 then 12/31 ; meds as noted; cont post HD ABx; GI eval prbc for hb< 7 Time Spent With Patient Time: Total time managing care of this patient today ____ minutes. Progress Note: Quality Stroke Does the patient have a stroke diagnosis?: No
[2024-01-01] MEDS: diphenhydrAMINE HCL 25 MG CAPSULE PO (16:59)
--- NOTE | 2024-01-03 08:14 | P.CDIM_ITS ---
PROVIDER RESPONSE TEXT: To clarify, the appropriate diagnosis supported by the clinical indicators: Mild QUERY TEXT: PHYSICIAN'S DOCUMENTATION REQUEST Date of Query: 12/31/2023 10:59 AM EST Patient Name: Meliza Olguin Admit Date: 12/29/2023 Dear Lul Pagan MD, A review of the medical record indicates additional documentation may be needed. Please review below and update the documentation accordingly. Documentation includes the diagnosis of malnutrition within the Assessment and Plan: H&P 12/28 A/P - Malnutrition, acute Underweight, acute BMI - 20.9 Total protein - 5.5 Albumin - 2.7 On therapeutic diet - PO intake <50% x 5 days If possible, please provide additional specificity regarding the severity of the malnutrition: Mild Moderate Severe Underweight BMI is not significant Other (explain) Clinically unable to determine (explain) Thank you, Kathleen Crain, CCS, CDIS Use of terms such as suspected, likely, concern for, or probable (associated with a specific diagnosi s that is being evaluated, monitored, or treated as if it exists) are acceptable and can be coded in the inpatient se tting, when documented at the time of discharge. Please use your independent medical judgment in providing your response. THIS QUERY IS PART OF THE PERMANENT MEDICAL RECORD
--- NOTE | 2024-01-03 08:14 | P.CDIM_ITS ---
PROVIDER RESPONSE TEXT: To clarify, the appropriate diagnosis supported by the clinical indicators: Acute QUERY TEXT: PHYSICIAN'S DOCUMENTATION REQUEST Date of Query: 01/01/2024 07:54 AM EST Patient Name: Meliza Olguin Admit Date: 12/29/2023 Dear Lul Pagan MD, A review of the medical record indicates additional documentation may be needed. Please review below and update the documentation accordingly. Clinical Indicators: EGD 12/30 and progress note - Findings: Gastritis, jejunitis, gastric pouch ulcers. Gerd precautions, Prilosec Clarify which of the following accurately represents the acuity of the Gastritis: Possible options might include: Acute Acute on chronic Chronic Other (explain) Clinically unable to determine (explain) Thank you, Kathleen Crain, CCS, CDIS Use of terms such as suspected, likely, concern for, or probable (associated with a specific diagnosi s that is being evaluated, monitored, or treated as if it exists) are acceptable and can be coded in the inpatient se tting, when documented at the time of discharge. Please use your independent medical judgment in providing your response. THIS QUERY IS PART OF THE PERMANENT MEDICAL RECORD
== END 2024-01-01 18:07 | disposition home health service (06) | DRG 377 ==
LOC: HO.ED 13:56 → HO.EDOVER 16:07 → HO.IMC 19:36
PROVIDERS: Internal Medicine Gastroenterology; Admitting Provider Physician Assistant; Emergency Provider Emergency Medicine Emergency Medical Services; PCP Internal Medicine; Visit Provider Internal Medicine
PROC: 0DJ08ZZ Inspection of Upper Intestinal Tract, Via Natural or Artificial Opening Endoscopic (ICD-10-PCS; CPT 43235; principal; 2023-12-31 09:50)
DX: K29.01 Acute gastritis with bleeding (principal); N18.6 End stage renal disease; I12.0 Hypertensive chronic kidney disease with stage 5 chronic kidney disease or end stage renal disease; E44.1 Mild protein-calorie malnutrition; D62 Acute posthemorrhagic anemia; I77.1 Stricture of artery; Z99.2 Dependence on renal dialysis; Z20.822 Contact with and (suspected) exposure to COVID-19; Z68.20 Body mass index [BMI] 20.0-20.9, adult; F17.210 Nicotine dependence, cigarettes, uncomplicated; Z71.6 Tobacco abuse counseling; Z98.84 Bariatric surgery status; Z79.899 Other long term (current) drug therapy
CPT/HCPCS: 0241U; 36415; 74176; 80048; 80053; 80307; 82272; 83605; 83690; 83735; 84484; 85014; 85018; 85025; 85610; 85730; 86850; 86900; 86901; 86923; 87040; 87493; 87507; 90999; 93005; 93976; 99285; J0737; J1171; J2003; J2405; J2470; J2704; J7120; P9016

== ENCOUNTER → 2023-12-29 08:10 | Outpatient (BNV) | payer MEDICARE, MEDICAID, SELFPAY | PROVIDERS: Emergency Provider Emergency Medicine Emergency Medical Services; PCP Internal Medicine; Visit Provider Radiology Diagnostic Radiology | DX: R11.2 Nausea with vomiting, unspecified (principal); R10.9 Unspecified abdominal pain; R19.7 Diarrhea, unspecified | CPT/HCPCS: 74176 ==

== ENCOUNTER → 2023-12-29 08:10 | Outpatient (BNV) | payer MEDICARE, MEDICAID, SELFPAY | PROVIDERS: Emergency Provider Emergency Medicine Emergency Medical Services; PCP Internal Medicine; Visit Provider Internal Medicine Cardiovascular Disease | DX: R00.0 Tachycardia, unspecified (principal); R94.31 Abnormal electrocardiogram [ECG] [EKG] | CPT/HCPCS: 93010 ==

== ENCOUNTER 2023-12-29 15:52 | Outpatient (BNV) | payer MEDICARE, MEDICAID, SELFPAY | END 2023-12-31 12:30 | PROVIDERS: Admitting Provider Physician Assistant; Emergency Provider Emergency Medicine Emergency Medical Services; PCP Internal Medicine; Visit Provider Radiology Diagnostic Radiology | DX: R10.84 Generalized abdominal pain (principal) | CPT/HCPCS: 93976 ==

== ENCOUNTER → 2023-12-29 15:52 | Outpatient (BNV) | payer MEDICARE, MEDICAID, SELFPAY | PROVIDERS: Admitting Provider Physician Assistant; Emergency Provider Emergency Medicine Emergency Medical Services; PCP Internal Medicine; Visit Provider Internal Medicine Gastroenterology | DX: K92.2 Gastrointestinal hemorrhage, unspecified (principal); K29.70 Gastritis, unspecified, without bleeding; K52.9 Noninfective gastroenteritis and colitis, unspecified; K25.9 Gastric ulcer, unspecified as acute or chronic, without hemorrhage or perforation | CPT/HCPCS: 43235; 99223; 99232 ==

== ENCOUNTER → 2023-12-29 15:52 | Outpatient (BNV) | payer MEDICARE, MEDICAID, SELFPAY | PROVIDERS: Admitting Provider Physician Assistant; Emergency Provider Emergency Medicine Emergency Medical Services; PCP Internal Medicine; Visit Provider Physician Assistant | DX: K92.2 Gastrointestinal hemorrhage, unspecified (principal) | CPT/HCPCS: 99223; 99232; 99233 ==

== ENCOUNTER 2024-04-24 17:31 | Inpatient (IN) | payer MEDICARE, MEDICAID, SELFPAY ==
[2024-04-24 17:48] VITALS: BP 131/71; PULSE 117; RESP 20; TEMP 36.8; O2SAT 98; BMI 22.0
--- NOTE | 2024-04-24 17:59 | ED_ITS ---
HPI - GI Bleed General Chief complaint: GI Bleed Stated complaint: gi bleed hx 2dys Time Seen by Provider: 04/24/24 17:47 History of Present Illness ED Provider: Faraz Warner MD HPI Narrative: Hematemesis history of GI bleeds with gastric pouch ulcers on PPI patient reports about 24 hours of moderate to severe epigastric pain. Few hours ago she started having small and increasingly larger episodes of hematemesis. She has had some dark stool over the past 24 hours. No bright red blood per rectum. No lower abdominal pain denies fevers. She denies syncope. Last dialysis was Friday full session per her. No shortness a breath Related Data Home Medications ?Medication ?Instructions ?Recorded ?Confirmed ferrous sulfate 325 mg (65 mg 325 mg PO BID PRN Iron Levels 05/11/20 01/05/24 iron) tablet,delayed release cyanocobalamin (vitamin B-12) 1,000 mcg PO DAILY 10/17/20 01/05/24 1,000 mcg tablet pyridoxine (vitamin B6) 50 mg 50 mg PO DAILY 06/06/21 01/05/24 tablet ergocalciferol (vitamin D2) 1,250 1,250 mcg PO PLEITEZ@0900 07/05/21 01/05/24 mcg (50,000 unit) capsule (Vitamin D2) midodrine 5 mg tablet 5 mg PO TID 03/25/23 01/05/24 acetaminophen 500 mg capsule 1,000 mg PO Q8H PRN Pain 08/10/23 01/05/24 (Mapap (acetaminophen)) fluticasone propionate 50 1 spray intranasal DAILY PRN 08/10/23 01/05/24 mcg/actuation nasal Allergy Symptoms spray,suspension [id number] 45 mg-folic 1 cap PO DAILY 08/10/23 01/05/24 acid 800 mcg-vit K 120 mcg capsule (Bariatric Multivitamins) parenteral amino acid 15% no.5 15 0.5 ea IV MOWEFR@0900 08/10/23 01/05/24 % combination no.5 intravenous solution (Clinisol SF) sucralfate 1 gram tablet 1 g PO BID 08/10/23 01/05/24 carvedilol 6.25 mg tablet 6.25 mg PO BID 11/19/23 01/05/24 clotrimazole 10 mg chiquita 10 mg PO TID 12/29/23 01/05/24 gabapentin 400 mg capsule 400 mg PO BID 12/29/23 01/05/24 oxycodone 5 mg tablet 5 mg PO Q6H PRN pain 12/29/23 01/05/24 potassium chloride 20 mEq 20 meq PO DAILY 12/29/23 01/05/24 tablet,extended release sevelamer carbonate 800 mg tablet 1,600 mg PO TIDWM 12/29/23 01/05/24 Previous Rx's ?Medication ?Instructions ?Recorded melatonin 10 mg capsule 10 mg PO BEDTIME PRN sleep 90 days 06/26/23 #90 caps thiamine HCl (vitamin B1) 100 mg 100 mg PO DAILY 90 days #90 tabs 09/27/23 tablet omeprazole 40 mg capsule,delayed 40 mg PO BID@0630,1630 #180 caps 01/01/24 release sucralfate 100 mg/mL oral 10 ml PO BID #1,000 mL 01/01/24 suspension (Carafate) vitamin A 2,400 mcg capsule 2,400 mcg PO DAILY 90 days #90 caps 02/05/24 citalopram 20 mg tablet 20 mg PO DAILY 90 days #90 tabs 03/18/24 Allergies Allergy/AdvReac Type Severity Reaction Status Date / Time ibuprofen Allergy Severe Unknown Verified 04/24/24 17:50 nifedipine Allergy Intermediate hives, leg Verified 04/24/24 17:50 edema PMFSH Past Medical History Medical History ESRD on dialysis End stage chronic kidney disease Moderate major depression Physical exam Spondylosis without myelopathy or radiculopathy, lumbar region Spinal stenosis 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 Lumbar back pain with radiculopathy affecting left lower extremity Physical exam (~02/14/21) Peritoneal dialysis catheter in place Polyarthralgia Dyslipidemia Family history of ovarian cancer Abnormal mammogram of right breast Angina pectoris syndrome Chest pain Constipation Nephrosclerosis Renal interstitial fibrosis Obesity (BMI 30-39.9) Back pain GERD (gastroesophageal reflux disease) History of headache HTN (hypertension) Surgical History S/P arteriovenous (AV) graft placement History of sleeve gastrectomy Fistula Hx of colonoscopy Hx of hysterectomy Hx of tubal ligation History of endometrial ablation Family History Family History Father Asthma Mother Asthma Hypertension Ovarian cancer Maternal Grandfather Myocardial infarction Paternal Grandmother Stroke Social History Social History Household Members: Family Housing: Apartment Do you presently have visiting nurse or other home services: No (Services to be started) Alcohol intake: current Alcohol intake frequency: holidays/special occasions only Alcohol type: beer Comment: Patient doesn't want bed alarm on Patient Tobacco Use Status: Current everyday Tobacco user Tobacco use type: Cigarette Cigarette Packs Per Day: 1 Cigarettes Per Day: 20.0 Years Smoked: 10+ Smoked in Last 30 Days: Yes e-Cigarette/Vaping Use: Currently Using Patient Interested in Nicotine Replacement: Yes Patient Given Instructions on How to Stop Smoking: No (Declined) Second Hand Smoke Exposure: No Use of substances other than those prescribed or required for medical reasons: No Currently Displaying Signs/Symptoms of Drug Intoxication Withdrawal: No Any prior treatment program specific to substance use: No Have you been hit, kicked, punched, or otherwise hurt by someone within the past year? If so, by whom?: No Do you feel safe in your current relationship?: Yes Is there a partner from a previous relationship who is making you feel unsafe now?: No Are you made to feel afraid or neglected: No Spiritual Healthcare Practices: Yazidism Advance Directives: Yes Advance Directives Information Provided: No Advance Directives on File: Yes Advance Directives Date on File: 04/27/20 Do you have a plan to hurt others: No Plan Recently lost weight without trying: No Eating poorly because of decreased appetite: No Nutrition Risks: No Nutritional Risk Patient : No : No Poor oral hygiene: No service: No Current occupational status: employed Cognitive needs: No Hearing needs: No Vision needs: Yes (reading glasses) Physical Exam 2 Vital Signs: Vital Signs: Last Vital Signs Temp 98.6 F 04/24/24 21:44 Pulse 106 H 04/24/24 21:44 Resp 16 04/24/24 21:44 BP 116/56 L 04/24/24 21:44 Pulse Ox 97 04/24/24 20:58 O2 Del Method Room Air 04/24/24 20:58 BMI result Body Mass Index 22.0 Const: Other: EXAM: Gen: Alert, appears ill and pain Head: Atraumatic Eyes: Anicteric, pale ENT: slightly dry, pale oral mucosa Neck: Supple. Respiratory: Breathing comfortably, No distress.Clear to auscultation bilaterally, symmetric chest expansion, No wheeze, rales, ronchi. Cardiovascular: Regular rate and rhythm. No murmurs or rub. Well perfused periphery, warm extremities. No edema. Abdominal: Soft, no objective distension. No palpable masses or obvious organomegaly. moderate tenderness in the midepigastrium, no guarding, no rebound tenderness or other peritoneal findings. : No flank tenderness. Neuro: Alert. Gross movement of all extremities intact. Vital signs: See flowsheet Medications Administered Generic Name Dose Route Start Last Admin Trade Name Freq PRN Reason Stop Dose Admin Hydromorphone HCl 0.25 mg 04/24/24 22:12 04/24/24 22:37 Hydromorphone Hcl 0.5 Mg/0.5 Ml Syringe IVPUSH 0.25 mg Q4H PRN Administration Pain, Severe (Pain Scale 7-10) Protocol Prochlorperazine Edisylate 5 mg 04/24/24 22:09 04/24/24 22:37 Prochlorperazine Edisylate 10 Mg/2 Ml Vial IVPUSH 5 mg Q6H PRN Administration Nausea and Vomiting Discontinued Medications Generic Name Dose Route Start Last Admin Trade Name Freq PRN Reason Stop Dose Admin Sodium Chloride 500 mls @ 999 mls/hr 04/24/24 18:30 04/24/24 19:47 Ns IV 04/24/24 19:00 Not Given .Q31M [facility] Morphine Sulfate 2 mg 04/24/24 18:06 04/24/24 18:16 Morphine Sulfate 2 Mg/Ml Cartridge IVPUSH 04/24/24 18:07 2 mg ONCE ONE Administration Protocol Ondansetron HCl 4 mg 04/24/24 18:05 04/24/24 18:15 Ondansetron Hcl 4 Mg/2 Ml Vial IVPUSH 04/24/24 18:06 4 mg ONCE ONE Administration Pantoprazole Sodium 80 mg 04/24/24 18:06 04/24/24 18:15 Pantoprazole Sodium 40 Mg/10 Ml Vial IVPUSH 04/24/24 18:07 80 mg ONCE ONE Administration Medical Decision Making Medical Decision Making [facility] Narrative: 53-year-old female with history of gastric Honeycutt's ulcers and gastritis no stigmata of end-stage liver disease or known varices. Hematemesis described as moderate volume earlier today. None in the ED. Tachycardic on arrival appeared in pain. Initial plan for pain control labs. Acute on chronic anemia likely secondary to upper GI bleed probably gastric ulcer once again. PPI, transfusion, crystalloid. Admission no indication for emergent upper endoscopy given hemodynamic stability Admission/Observation Consideration of admission/observation: Escalation of care including admission/observation considered considered escalation if her bleeding continues to have her she had no continued episodes here in the ED Lab Data [facility] Lab Attestation statement: I reviewed the patient's lab results. 04/24/24 18:05 04/24/24 18:05 Labs: Lab Results 04/24/24 04/24/24 Range/Units 18:04 18:05 WBC 11.6 H (4.8-10.8) X10*3/uL RBC 2.16 L D (4.20-5.50) X10*6/uL Hgb 6.8 L* D (12.0-16.0) g/dl Hct 19.7 L* D (37.0-47.0) % MCV 91.2 (80.0-98.0) fL MCH 31.5 (27.0-33.0) pg MCHC 34.5 (31.0-35.0) g/dl RDW 14.7 (11.0-16.0) % Plt Count 265 (160-400) X10*3/uL MPV 10.4 (9.4-12.3) fL Immature Gran % (Auto) 0.5 H (0.0-0.4) % Neut % (Auto) 75.6 H (45-73) % Lymph % (Auto) 18.6 L (20-40) % [place] % (Auto) 4.8 (2-11) % Eos % (Auto) 0.1 (0-4) % Baso % (Auto) 0.4 (0-2) % Lymph # (Auto) 2.2 (1.2-4.9) X10*3/uL [place] # (Auto) 0.6 (0.1-1.2) X10*3/uL Eos # (Auto) 0.0 (0.0-0.4) X10*3/uL Baso # (Auto) 0.1 (0.0-0.2) X10*3/uL Abs Immat Gran (auto) 0.06 H (0.00-0.03) X10*3/uL Absolute Neuts (auto) 8.8 H (2.0-8.3) x10*3/uL Absolute Nucleated RBC 0.000 (0.0-0.012) X10*3/uL Nucleated RBC % (auto) 0.0 (0.0-0.2) /100WBC PT 11.6 D (10.9-12.4) SEC INR 1.0 (0.9-1.1) Sodium 136 (135-145) mmol/L Potassium 4.5 (3.3-5.1) mmol/L Chloride 100 (96-108) mmol/L Carbon Dioxide 19 L (22-29) mmol/L Anion Gap 22 H (12-20) BUN 131 H (9-16) mg/dL Creatinine 5.81 H* (0.5-1.4) mg/dL Estim Creat Clear Calc 10.1 Estimated GFR 8 Random Glucose 147 H (60-115) mg/dL Calcium 9.2 (8.4-10.2) mg/dL Total Bilirubin 0.3 (0.0-1.0) mg/dL Direct Bilirubin 0.1 (0.0-0.5) mg/dL AST 22 (5-31) U/L ALT 12 (0-31) U/L Alkaline Phosphatase 89 (39-117) U/L Total Protein 6.3 L (6.5-8.0) g/dL Albumin 3.2 L (3.5-5.0) g/dL Lipase 26 (8-78) U/L Blood Type O Positive Antibody Screen NEGATIVE Crossmatch See Detail Independent Interpretation I performed an independent interpretation of an: EKG ( sinus tachycardia rate 121, LVH. subtle ST depressions V3 to V6, similar morphology to 12/29/2023. No STEMI criteria) Discharge Plan Discharge Clinical Impression: GI bleed Patient Disposition: Admitted As Inpatient Interventions: Admission Worksheet (ED) Last Done: 04/24/24 23:00 Discharge Date/Time: 04/24/24 23:42
[2024-04-24 18:08] LABS: MANUAL DIFF FLAG NO
--- NOTE | 2024-04-24 18:11 | ECG_ITS ---
Test Reason : tachycardia Blood Pressure : */* mmHG Vent. Rate : 121 BPM Atrial Rate : 121 BPM P-R Int : 126 ms QRS Dur : 82 ms QT Int : 336 ms P-R-T Axes : 54 64 57 degrees QTcB Int : 477 ms Sinus tachycardia Minimal voltage criteria for LVH, may be normal variant ( Sokolow-Sawyer ) Nonspecific ST and T wave abnormality Abnormal ECG When compared with ECG of 29-Dec-2023 08:36, No significant change was found Referred By: Faraz Warner Electronically Signed By: MINO ROWE
[2024-04-24 18:15] LABS: Basophils Absolute Auto 0.1 X10*3/uL (0.0-0.2); Basophils Percent Auto 0.4 % (0-2); Eosinophils Percent Auto 0.1 % (0-4); Imm Gran Abs Auto 0.06 X10*3/uL (0.00-0.03); Imm Gran Pct Auto 0.5 % (0.0-0.4); Lymphocytes Absolute Auto 2.2 X10*3/uL (1.2-4.9); Lymphocytes Percent Auto 18.6 % (20-40); Mean Corpuscular HGB Conc 34.5 g/dl (31.0-35.0); Mean Corpuscular Hemoglobin 31.5 pg (27.0-33.0); Mean Corpuscular Volume 91.2 fL (80.0-98.0); Mean Platelet Volume 10.4 fL (9.4-12.3); Monocytes Absolute Auto 0.6 X10*3/uL (0.1-1.2); Monocytes Percent Auto 4.8 % (2-11); Neutrophils Absolute Auto 8.8 x10*3/uL (2.0-8.3); Neutrophils Percent Auto 75.6 % (45-73); Platelet Count 265 X10*3/uL (160-400); Red Blood Count 2.16 X10*6/uL (4.20-5.50); Red Cell Distribution Width 14.7 % (11.0-16.0); White Blood Count 11.6 X10*3/uL (4.8-10.8)
[2024-04-24] MEDS: Pantoprazole Sodium 40 MG/10 ML VIAL 80 MG IVPUSH (18:15)
[2024-04-24] MEDS: ondansetron HCL 4 MG/2 ML VIAL IVPUSH (18:15)
[2024-04-24] MEDS: Morphine Sulfate 2 MG/ML CARTRIDGE IVPUSH (18:16)
[2024-04-24 18:19] LABS: Hemoglobin 6.8 g/dl (12.0-16.0)
[2024-04-24 18:20] LABS: Hematocrit 19.7 % (37.0-47.0)
[2024-04-24] MEDS: 0.9 % Sodium Chloride 500 ML 999 ML IV (18:20)
[2024-04-24 18:25] LABS: Alanine Aminotransferase 12 U/L (0-31); Albumin Level 3.2 g/dL (3.5-5.0); Alkaline Phosphatase 89 U/L (39-117); Anion Gap 22 (12-20); Aspartate Amino Transferase 22 U/L (5-31); Bilirubin Direct 0.1 mg/dL (0.0-0.5); Bilirubin Total 0.3 mg/dL (0.0-1.0); Calcium 9.2 mg/dL (8.4-10.2); Carbon Dioxide 19 mmol/L (22-29); Chloride 100 mmol/L (96-108); Creatinine Clr Calc Pharmacy 10.1; Estimated Glomerular Filt Rate 8; Glucose Random 147 mg/dL (60-115); Lipase 26 U/L (8-78); Potassium 4.5 mmol/L (3.3-5.1); Sodium 136 mmol/L (135-145); Total Protein 6.3 g/dL (6.5-8.0)
[2024-04-24 18:38] LABS: Blood Urea Nitrogen 131 mg/dL (9-16)
[2024-04-24 18:39] LABS: Prothrombin Time 11.6 SEC (10.9-12.4)
--- OUTSIDE RECORDS SUMMARY | 2024-04-24 18:50 | XMS_ITS | Encounter Summary ---
Author Organization [facility] Address [address] [address] Phone Care Team Providers Care Telephone Answering Service Operator Name Role Phone Rozina Nicole MD Primary Care Provider Encounter Details Date Type Department Care Team ([facility] st Contact Info) Description 03/31/2024 Treatment [facility] [address] [phone] Yamileth Varghese MD [address] [phone] Social History Tobacco Use Types Packs/Day Years Used Date Smoking Tobacco: Former Cigarettes Q uit: 10/31/2018 Smokeless Tobacco: Never Comments:Smoking History Inf o:Every day Alcohol Use Standard Drinks/Week Comments No 0 (1 standard drink = 0.6 oz pur e alcohol) Comments Unknown Sex and Gender Information Value Date Recorded Sex Assigned at Not on file Legal Sex Female 4:50 PM EST Gender Identity Not on file Sexual Orientation Not on file documented as of this encounter Miscellaneous Notes * Dialysis Note - Yamileth Varghese MD - 03/31/2024 12:00 AM EST Patient: Meliza Perry : 1970 Note Type: Dialysis Rounds-Basic Telehealth Service Date: 03/31/2024 Telehealth encounter using audiovisual technology, performed according to state requirements. Appropriate patient consent obtained. This patient was personally seen for a basic visit as part of routine monthly dialysis care for end stage renal disease. Attending General Passenger Agent: YAMILETH VARGHESE MD Dialysis Location: [facility] Schedule: Shift: 1 ADEQUACY ASSESSMENT Kt/V, Natural Log 0.76 (03/31/24) 1.09 (03/26/24) 0.97 (03/22/24) UREA REDUCTION RATIO (%) 58 (04/02/24) 50 (03/31/24) 62 (03/26/24) BUN 31 (04/02/24) 38 (03/31/24) 37 (03/26/24) BUN Post Dialysis 13 (04/02/24) 19 (03/31/24) 14 (03/26/24) Creatinine 6.34 (03/31/24) 6.00 (03/17/24) 5.62 (02/20/24) Bicarbonate (CO2) 22 (03/17/24) 19 (02/20/24) 23 (01/14/24) Sodium 138 (03/17/24) 136 (02/20/24) 136 (01/14/24) ANEMIA ASSESSMENT Hgb 12.1 (03/31/24) 12.5 (03/17/24) 11.0 (03/08/24) Iron Saturation (TSat) 24 (03/17/24) 28 (02/20/24) 19 (01/14/24) Ferritin 927 (03/17/24) 1,110 (02/20/24) 810 (12/17/23) Iron 51 (03/17/24) 56 (02/20/24) 34 (01/14/24) TIBC 216 (03/17/24) 200 (02/20/24) 181 (01/14/24) MCV 91.3 (03/17/24) 95.5 (02/20/24) 94.6 (01/14/24) Platelets 305 (03/17/24) 245 (02/20/24) 320 (01/14/24) BMM ASSESSMENT Calcium, Adjusted Total 9.9 03/17/24 9.2 02/20/24 9.6 01/14/24 Calcium 9.9 03/17/24 9.0 02/20/24 8.9 01/14/24 Phosphorus, Serum 5.2 03/22/24 6.7 03/17/24 5.0 02/20/24 Ca*PO4 66.3 03/17/24 45.0 02/20/24 38.3 01/14/24 PTH, Intact 1,194 03/17/24 960 02/25/24 1,427 02/20/24 Magnesium 2.3 03/17/24 2.3 02/20/24 2.1 01/14/24 Alkaline Phosphatase 175 03/17/24 168 02/20/24 157 01/14/24 Aluminum 4 02/20/24 NUTRITION ASSESSMENT Albumin 4.2 03/17/24 3.7 02/25/24 3.8 02/20/24 Potassium 4.3 03/31/24 4.9 03/26/24 4.3 03/17/24 Hemoglobin A1C 4.7 02/20/24 ADDITIONAL LABS White Blood Cells 8.5 (03/17/24) 5.4 (02/20/24) 6.8 (01/14/24) Cholesterol 174 (02/20/24) HDL 58 (02/20/24) LDL-Calc 89 (02/20/24) Triglycerides 136 (02/20/24) Hep B Surface Antibody >1,000 (02/20/24) Uric Acid 9.6 (02/20/24) ADDITIONAL COMMENT COMMENTS: 03/31/24 doing ok 03/22/24 doing better w GI issues but still has trouble w doing full hd tx time 01/14/24 doing better Pd cath out 01/26/24 cont GI issues 02/03/24 same issues 02/10/24 stable 02/12/23 doing ik 10/15/23 stable 11/05/23 s/p PD placement 11/26/23: doing better 12/05/23 no belly pain 12/08/23 stable 12/19/23 f/u with PD RN 12/1523 doing better 01/09/24 stable 03/03/24 only able to do 2 hrs HD as she signs off Signed by: YAMILETH VARGHESE MD on 04/04/2024 at 02:28:46 PM documented in this encounter Plan of Treatment Not on file documented as of this encounter Visit Diagnoses Not on filedocumented in this encounter Care Teams Telephone Answering Service Operator Relationship Specialty Start Date End Date Rozina Nicole MD [address] [place], [place] PCP - General 02/21/20 documented as of this encounter
--- OUTSIDE RECORDS SUMMARY | 2024-04-24 18:50 | XMS_ITS | Encounter Summary ---
Author Organization [facility] Address [address] [phone] Phone Care Team Providers Care Appointment Manager Name Role Phone Rozina Nicole MD Primary Care Provider [phone] Encounter Details Date Type Department Care Team ([facility] st Contact Info) Description 04/09/2024 Treatment [facility] [address] [phone] Yamileth Varghese MD [address] [phone] End stage renal disease; Dependence on renal dialysis Social History Tobacco Use Types Packs/Day Years [...] Dialysis Note - Yamileth Varghese MD - 04/09/2024 12:00 AM EST Patient: Meliza Perry : 1970 Note Type: Dialysis Rounds-Basic Telehealth Service Date: 04/09/2024 Telehealth encounter using audiovisual technology, performed according to state requirements. Appropriate patient consent obtained. This patient was personally seen for a basic visit as part of routine monthly dialysis care for end stage renal disease. Attending Outside Machinist Helper: YAMILETH VARGHESE MD Dialysis Location: [facility] Schedule: Shift: ADEQUACY ASSESSMENT Kt/V, Natural Log 1.14 (04/05/24) 1.01 (04/02/24) 0.76 (03/31/24) UREA REDUCTION RATIO (%) 65 (04/05/24) 58 (04/02/24) 50 (03/31/24) BUN 34 (04/05/24) 31 (04/02/24) 38 (03/31/24) BUN Post Dialysis 12 (04/05/24) 13 (04/02/24) 19 (03/31/24) Creatinine 6.34 (03/31/24) 6.00 (03/17/24) 5.62 (02/20/24) [...] (02/20/24) ADDITIONAL COMMENT COMMENTS: 03/31/24 doing ok 04/02/24 stable 04/09/24 doing ok 03/22/24 doing better w GI [...] off Signed by: YAMILETH VARGHESE MD on 04/09/2024 at 10:19:06 PM documented in this encounter Plan of Treatment Not on file documented as of this encounter Visit Diagnoses Diagnosis End stage renal disease Dependence on renal dialysis documented in this encounter Care Teams Appointment Manager Relationship Specialty Start Date End Date Rozina Nicole MD [address] [place], [place] PCP - General 02/21/20 documented as of this encounter
--- OUTSIDE RECORDS SUMMARY | 2024-04-24 18:50 | XMS_ITS | Encounter Summary ---
Author Organization [facility] Address [address] [address] Phone Care Team Providers Care Hospice Executive Director Name Role Phone Rozina Nicole MD Primary Care Provider [phone] Encounter Details Date Type Department Care Team ([facility] st Contact Info) Description 04/14/2024 Treatment [facility] [address] [phone] Yamileth Varghese MD [address] [phone] End stage renal disease; Dependence [...] Dialysis Note - Yamileth Varghese MD - 04/14/2024 12:00 AM EST Patient: Meliza Perry : 1970 Note Type: Dialysis Rounds-Basic Telehealth Service Date: 04/14/2024 Telehealth encounter using audiovisual technology, performed according to state requirements. Appropriate patient consent obtained. This patient was personally seen for a basic visit as part of routine monthly dialysis care for end stage renal disease. Attending Pharmacy Informaticist: YAMILETH VARGHESE MD Dialysis Location: [facility] Schedule: Shift: ADEQUACY ASSESSMENT Kt/V, Natural Log 1.45 (04/09/24) 1.14 (04/05/24) 1.01 (04/02/24) UREA REDUCTION RATIO (%) 72 (04/09/24) 65 (04/05/24) 58 (04/02/24) BUN 36 (04/09/24) 34 (04/05/24) 31 (04/02/24) BUN Post Dialysis 10 (04/09/24) 12 (04/05/24) 13 (04/02/24) Creatinine 6.34 (03/31/24) 6.00 (03/17/24) 5.62 (02/20/24) [...] 4.2 03/17/24 3.7 02/25/24 3.8 02/20/24 Potassium 4.7 04/09/24 4.3 03/31/24 4.9 03/26/24 Hemoglobin A1C 4.7 02/20/24 ADDITIONAL LABS White Blood Cells 8.5 (03/17/24) 5.4 (02/20/24) 6.8 (01/14/24) Cholesterol 174 (02/20/24) HDL 58 (02/20/24) LDL-Calc 89 (02/20/24) Triglycerides 136 (02/20/24) Hep B Surface Antibody >1,000 (02/20/24) Uric Acid 9.6 (02/20/24) ADDITIONAL COMMENT COMMENTS: 03/31/24 doing ok 04/02/24 stable 04/09/24 doing ok 04/14/24 stable 03/22/24 doing better w GI issues but [...] off Signed by: YAMILETH VARGHESE MD on 04/14/2024 at 01:33:29 PM documented in this encounter Plan of Treatment Not on file documented as of this encounter Visit Diagnoses Diagnosis End stage renal disease Dependence on renal dialysis documented in this encounter Care Teams Hospice Executive Director Relationship Specialty Start Date End Date Rozina Nicole MD [address] [place], [place] PCP - General 02/21/20 documented as of this encounter
--- OUTSIDE RECORDS SUMMARY | 2024-04-24 18:50 | XMS_ITS | Clinical Summary ---
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 Active lidocaine 4 % patch Apply topically. Act mina melatonin 5 mg tablet Take by mouth. Activ e ONDANSETRON HCL ORAL Take 4 mg by mouth. 02/08/20 22 Active acetaminophen (TYLENOL) 500 mg capsule Take 2 capsules (1,000 mg total) by mouth. 07/24/19 24 Active busPIRone (BUSPAR) 5 mg tablet TAKE 1 TABLET BY MOUTH 3 TIMES A DAY FOR ANXIETY 06/20/19 22 Active calcitRIOL (ROCALTROL) 1 mcg/mL solution Take 0.25 mcg by mouth. Active carvediloL (COREG) 3.125 mg tablet Take 2 tablets (6.25 mg total) by mouth. 02/15/19 23 Active carvedilol CR (COREG CR) 10 mg 24 hr capsule Take 1 capsule (10 mg total) by mouth. Active cyclobenzaprine (FLEXERIL) 5 mg tablet Take 1 tablet (5 mg total) by mouth. 07/14/19 22 Active diclofenac (VOLTAREN) 1 % topical gel APLICAR 2 GRAMOS TOPICAMENTE CUATRO VECES AL IRAM EN LA ESPALDA. 07/14/19 22 Active dicyclomine (BENTYL) 10 mg capsule Take 1 capsule (10 mg total) by mouth. 07/03/19 23 Active dicyclomine (BENTYL) 20 mg tablet Take 1 tablet (20 mg total) by mouth. Active doxazosin (CARDURA) 4 mg tablet Take 1 tablet (4 mg total) by mouth. Active escitalopram (LEXAPRO) 10 mg tablet Take 1 tablet (10 mg total) by mouth. Active ferrous sulfate 325 mg (65 mg elemental iron) tablet Take 1 tablet (325 mg total) by mouth. 02/18/19 23 Active fluticasone propionate (FLONASE) 50 mcg/actuation nasal spray INSTILL 1 SPRAY INTRANASALLY DAILY ADMINISTER INTO EACH NOSTRIL 07/27/19 Active gabapentin (NEURONTIN) 300 mg capsule Take 1 capsule (300 mg total) by mouth. Active meclizine (ANTIVERT) 25 mg tablet Take 1 tablet (25 mg total) by mouth. Active midodrine (PROAMATINE) 5 mg tablet Active ondansetron ODT (ZOFRAN-ODT) 4 mg disintegrating tablet Active pantoprazole (PROTONIX) 40 mg EC tablet Take 1 tablet (40 mg total) by mouth 1 (one) time each day. 11/17/19 24 Active polyethylene glycol (MIRALAX) 17 gram packet Take 17 g by mouth. 02/08/20 22 Active potassium chloride 20 mEq tablet extended release Act mina senna (SENOKOT) 8.6 mg tablet Take 2 tablets (17.2 mg total) by mouth. 07/17/19 22 Active sevelamer carbonate (RENVELA) 800 mg tablet Take 2 tablets (1,600 mg total) by mouth. 07/14/19 22 Active simethicone (MYLICON) 80 mg chewable tablet Chew 1 tablet (80 mg total). 02/08/20 22 Active sodium zirconium cyclosilicate (Lokelma) 10 gram packet Take by mouth. Activ e sucralfate (CARAFATE) 1 gram tablet Take 1 tablet (1 g total) by mouth. 07/24/19 24 025 Active ursodioL (ACTIGALL) 300 mg capsule Take 2 capsules (600 mg total) by mouth. 02/08/20 22 Active vitamin A 2,400 mcg capsule Active atorvastatin (LIPITOR) 20 mg tablet Take 1 tablet (20 mg total) by mouth. Active furosemide (LASIX) 80 mg tablet Take 1 tablet (80 mg total) by mouth. Active citalopram (CeleXA) 20 mg tablet Take 1 tablet (20 mg total) by mouth. 06/20/19 22 Active multivit with iron,minerals (MULTI-VITAMINS WITH IRON ORAL) Take by mouth. Active pyridoxine HCl, vitamin B6, (VITAMIN B-6 ORAL) Take by mouth. Active CHOLECALCIFEROL, VITAMIN D3, ORAL Take by mouth. Active wheat dextrin 3 gram/3.8 gram powder Take 4 g by mouth. 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 11/26/2023 Acute kidney failure 04/26/2021 Benign essential hypertension 04/26/2021 Dependence on renal dialysis 04/26/2021 Disorder of kidney and ureter, unspecified 04/26 ESRD on hemodialysis 04/26/2021 Hypertensive heart and chron ic kidney disease with heart failure and stage 1 through stage 4 chronic kidney disease, or unspecified chronic kidney disease 04/26/2021 Vitamin D deficiency 04/26/2021 Surgical History Surgery Date Site/Laterality Comments OTHER SURGICAL HISTORY PROCEDURE: DIALYSIS ACCESS SYSTEM LAPAROSCOPIC GASTRIC BANDING PROCEDURE: LAP ADJUSTABLE GASTRIC BAND HYSTERECTOMY PROCEDURE: HISTORICAL HYSTERECTOMY OTHER SURGICAL HISTORY PROCEDURE: COLONOSCOPY LESION REMOVAL OTHER SURGICAL HISTORY 06/13/2021 Left PROCEDURE: KS CRTJ ARVEN FSTL XCP DIR HERMANN BARTH NONAUTOG GRF; COMMENT: Left axillary loop arteriovenous graft creation OTHER SURGICAL HISTORY 10/30/2023 PROCEDURE: HISTORY OTHER; COMMENT: laparoscopic peritoneal dialysis catheter placement Medical History Medical History Date Comments Anxiety DX:Anxiety Depression DX:Depression Chronic renal insufficiency DX:C hronic renal insufficiency CKD (chronic kidney disease) DX: CKD (chronic kidney disease) Headache DX:Headache Hypertension DX:Hypertension Renal interstitial fibrosis DX:R enal interstitial fibrosis Nephrosclerosis DX:Nephroscleros is Class 1 obesity due to exces s calories with serious comorbidity and body mass index (BMI) of 32.0 to 32.9 in adult 08/09/2021 DX:Class 1 obesit y due to excess calories with serious comorbidity and body mass index (BMI) of 32.0 to 32.9 in adult Social History Tobacco Use Types Packs/Day Years Used Date Smoking Tobacco: Every Day Smokeless Tobacco: Never Alcohol Use Standard Drinks/Week Comments Never 0 (1 standard drink = 0.6 oz pur e alcohol) Comments Unknown Sex and Gender Information Value Date Recorded Sex Assigned at Not on file Legal Sex Female 9:02 AM EST Gender Identity Not on file Sexual Orientation Not on file Obstetrics History Last Filed Vital Signs Vital Sign Reading Time Taken Comments Blood Pressure 104/70 11/26/2023 2:59 PM EDT Pulse 92 11/26/2023 2:59 PM EDT Temperature - - Respiratory Rate - - Oxygen Saturation - - Inhaled Oxygen Concentration - - Weight 53.1 kg (117 lb) 11/26/2023 2:59 PM EDT Height 165.1 cm (5' 5 ) 11/26/2023 2:59 PM EDT Body Mass Index 19.47 11/26/2023 2:59 PM EDT Plan of Treatment Health Maintenance Due Date Last Done Comments Breast Cancer Screening 1970 COVID-19 Vaccine (#1) 07/26/1976 DTaP,Tdap,and Td Vaccines (1 - Tdap) 07/26/1990 Hepatitis B Vaccines (1 of 3 - 19+ 3-dose series) 07/26/1990 Pneumococcal Vaccine: 50+ Ye ars (1 of 2 - PCV) 07/26/1990 Pneumococcal Vaccine: Pediat rics (0 to 5 Years) and At-Risk Patients (6 to 64 Years) (1 of 2 - PCV) 07/26/1990 Cervical Cancer Screening: P ap Smear 07/26/1992 Zoster Vaccines (1 of 2) 07/26/2021 Cholesterol Screening (Lipid Panel) 01/20/2022 Colorectal Cancer Screening: Colonoscopy 01/20/2022 Depression Screening 01/20/2022 HIV Screening 01/20/2022 Hepatitis C Screening 01/20/2022 Medicare Annual Wellness Visit 01/20/2022 Social Influencers of Health Screening 01/20/2022 Hypertension/CHF/CAD Annual BMP Blood Test 01/23/2022 Influenza Vaccine (#1) 2023 HIB Vaccines Aged Out No longer eligi ble based on patient's age to complete this topic HPV Vaccines Aged Out No longer eligi ble based on patient's age to complete this topic Hepatitis A Vaccines Aged Out No long er eligible based on patient's age to complete this topic IPV Vaccines Aged Out No longer eligi ble based on patient's age to complete this topic MMR Vaccines Aged Out No longer eligi ble based on patient's age to complete this topic Meningococcal ACWY Vaccine Aged Out N o longer eligible based on patient's age to complete this topic Meningococcal B Vacine Aged Out No lo nger eligible based on patient's age to complete this topic RSV Immunization Patients Un martha 20 months Aged Out No longer eligible b ased on patient's age to complete this topic Varicella Vaccines Aged Out No longer eligible based on patient's age to complete this topic Insurance [place] - [place] MEDICARE Advance Directives Documents on File Type Date Recorded 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 Health Care Decision (hx) 07/24/2023 AD REED DIRECTIVE Health Care Decision (hx) 07/24/2023 AD REED DIRECTIVE Health Care Decision (hx) 07/24/2023 AD REED DIRECTIVE Health Care Decision (hx) 12/16/2022 AD REED DIRECTIVE Health Care Decision (hx) 12/16/2022 AD REED DIRECTIVE Health Care Decision (hx) 12/16/2022 AD REED DIRECTIVE Health Care Decision (hx) 12/16/2022 AD REED DIRECTIVE Health Care Decision (hx) 12/16/2022 AD REED DIRECTIVE Health Care Decision (hx) 12/16/2022 AD REED DIRECTIVE Health Care Decision (hx) 12/16/2022 AD REED DIRECTIVE Care Teams Movement Assembly Final Inspector Relationship Specialty Start Date End Date Sam Lynch MD [address] [place] [address] [address] [place], [place] PCP - General 10/25/22
--- OUTSIDE RECORDS SUMMARY | 2024-04-24 18:50 | XMS_ITS | Clinical Summary ---
Author Organization [facility] Address [address] [place] [address] [place] [address] Phone Care Team Providers Care Rod Hanger Name Role Phone Rozina Nicole MD Primary Care Provider [phone] Allergies Active Allergy Reactions Criticality Noted Date Comments Nifedipine 09/07/2020 Medications doxazosin (Cardura) 4 MG tablet Take 1 tablet by mouth at bed time 11/02/2018 Active escitalopram (LEXAPRO) 10 MG tablet Take 10 mg by mouth 1 (one) time each day Active atorvastatin (LIPITOR) 20 MG tablet Take 20 mg by mouth 1 (one) time each day Active gabapentin (NEURONTIN) 300 MG capsule Take 300 mg by mouth 3 (three) times a day Active senna (SENOKOT) 8.6 MG tablet Take 2 tablets by mouth 2 (two) times a day Active Melatonin 5 MG capsule Take 1 tablet by mouth 1 (one) time each day 10/16/2020 Active ondansetron (ZOFRAN) 4 MG tablet 10/18/2020 Active oxyCODONE-aceta minophen (PERCOCET) 5-325 MG per tablet 10/18/2020 Active furosemide (LASIX) 80 MG tablet Take 1 tablet (80 mg total) by mouth 1 (one) time each day 30 tablet 11 01/24/2021 Active ferrous sulfate 325 (65 Fe) MG EC tablet TAKE 1 TABLET BY MOUTH TWICE DAILY *DO NOT CRUSH, CHEW, OR SPLIT* 60 tablet 10 06/22/2021 Active carvedilol (COREG) 3.125 MG tablet ALMAS DOS (2) TABLETAS POR VIA ORAL DOS VECES AL IRAM 120 tablet 10 01/29/2022 Active hydrALAZINE 25 MG tablet ALMAS CE TALBETA POR VIA ORAL 3 VECS AL IRAM *DESCONTINUAR CALCITROL, FERROUS SULFATE, FUROSIMIDE, Y LOKELMA* 90 tablet 10 06/24/2022 Active meclizine (ANTIVERT) 25 MG tablet ALMAS 1 TABLETA POR VIA ORAL DOS VECES AL IRAM *EMERGENCY REFILL* 60 tablet 10 07/15/2022 Active calcitriol (ROCALTROL) 0.25 MCG capsule Take 1 capsule (0.25 mcg total) by mouth 1 (one) time each day 30 capsule 10 07/24/2022 Active sevelamer carbonate (RENVELA) 800 MG tablet ALMAS 2 TABLETAS POR VIA ORAL EN LA MANANA, 2 TABLETAS AL MEDIO IRAM, Y 2 TABLETAS EN LA TARDE. ALMAS CON COMIDAS 180 tablet 10 07/04/2023 Active midodrine (PROAMATINE) 5 MG tablet TAKE 1 TABLET BY MOUTH 3 TIMES A DAY 270 tablet 2 09/16/2023 Active Active Problems Problem Noted Date Diagnosed Date Stage 5 chronic kidney disease 10/05/2020 Acute nontraumatic kidney injury 05/02/2020 Hypertensive heart and renal disease with (congestive) heart failure 05/02/2020 Vitamin D deficiency 05/02/2020 Chronic kidney disease, stage 4 (severe) 021 Renal osteodystrophy 05/02/2020 Proteinuria 05/02/2020 Resolved Problems Problem Noted Date Diagnosed Date Resolved Date Benign essential hypertension 05/02/2020 09/07/2020 Chronic kidney disease stage 3 05/02/2020 09/07/2020 Disorder of kidney and/or ureter 05/02/2020 05/02/2020 [facility] 09/07/2020 Encounters Date Type Department Care Team Description 04/14/2024 Treatment [facility] [address] [address] Jon Wang MD End stage renal disease; Dependence on renal dialysis 04/09/2024 Treatment [facility] [address] [address] Jon Wang MD End stage renal disease; Dependence on renal dialysis 04/02/2024 Treatment [facility] [address] [address] Jon Wang MD 03/31/2024 Treatment [facility] [address] [address] Jon Wang MD 03/22/2024 Orders Only [facility] [address] [address] Jon Wang MD 03/22/2024 Treatment [facility] [address] [address] Jon Wang MD 03/03/2024 Treatment [facility] [address] [address] Jon Wang MD 02/13/2024 Treatment [facility] [address] [address] Jon Wang MD 02/10/2024 Treatment [facility] [address] [address] Jon Wang MD 02/03/2024 Treatment [facility] [address] [address] Jon Wang MD 01/26/2024 Treatment [facility] [address] [address] Jon Wang MD from Last 3 Months Family History Medical History Relation Comments Diabetes Father Cancer Mother Diabetes Mother Hypertension Mother Relation Status Comments Father Alive Mother Alive Social History Tobacco Use Types Packs/Day Years [...] on file Sexual Orientation Not on file Last Filed Vital Signs Vital Sign Reading Time Taken Comments Blood Pressure 128/72 09/25/2021 10:27 AM EDT Pulse 99 09/25/2021 10:27 AM EDT Temperature - - Respiratory Rate - - Oxygen Saturation 99% 09/25/2021 10:27 AM EDT Inhaled Oxygen Concentration - - Weight 104 kg (229 lb) 09/25/2021 10:27 AM EDT Height 165.1 cm (5' 5 ) 09/25/2021 10:27 AM EDT Body Mass Index 38.11 09/25/2021 10:27 AM EDT Plan of Treatment Health Maintenance Due Date Last Done Comments Breast Cancer Screening 1971 Pneumococcal Vaccine: Pediat rics (0 to 5 Years) and At-Risk Patients (6 to 64 Years) (1 of 2 - PCV) 07/26/1977 Hepatitis B Vaccine (1 of 5 - Risk Dialysis 4-dose series) 1991 Colorectal Cancer Screening: Annual FOBT 07/26/2020 Colorectal Cancer Screening: Colonoscopy 07/26/2020 Colorectal Cancer Screening: Sigmoidoscopy 07/26/2020 Influenza Vaccine (#1) 2023 Procedures Procedure Name Priority Date/Time Associated Diagnosis Comments LI () Routine 04/23/2024 3:00 AM EDT KT/V NATURAL LOG, URR () Routine 04/23/2024 3:00 AM EDT PTH, INTACT Routine 04/19/2024 3:00 AM EDT KT/V NATURAL LOG, URR () Routine 04/19/2024 3:00 AM EDT LIH () Routine 04/19/2024 3:00 AM EDT HEPATITIS B SURFACE ANTIGEN W/REFL CONFIRM Routine 04/14/2024 3:00 AM EST FERRITIN Routine 04/14/2024 3:00 AM EST MAGNESIUM Routine 04/14/2024 3:00 AM EST TRANSFERRIN SATURATION Routine 3:00 AM EST PROTEIN, TOTAL, SERUM Routine 04/14/2024 3:00 AM EST ELECTROLYTE PANEL Routine 04/14/2024 3:0 0 AM EST LIH (HC) Routine 04/14/2024 3:00 AM EST LACTATE DEHYDROGENASE Routine 04/14/2024 3:00 AM EST BILIRUBIN, TOTAL Routine 04/14/2024 3:00 AM EST CREATININE, SERUM Routine 04/14/2024 3:0 0 AM EST GLUCOSE, RANDOM Routine 04/14/2024 3:00 AM EST AST Routine 04/14/2024 3:00 AM EST ALT Routine 04/14/2024 3:00 AM EST ALKALINE PHOSPHATASE Routine 04/14/2024 3:00 AM EST CALCIUM PHOSPHORUS PRODUCT, ADJUSTED (HC) Routine 04/14/2024 3:00 AM EST KT/V NATURAL LOG, URR (HC) Routine 04/14/2024 3:00 AM EST CBC AND DIFFERENTIAL Routine 04/14/2024 3:00 AM EST LIH (HC) Routine 04/09/2024 3:00 AM EST POTASSIUM Routine 04/09/2024 3:00 AM EST KT/V NATURAL LOG, URR (HC) Routine 04/09/2024 3:00 AM EST LIH (HC) Routine 04/05/2024 3:00 AM EST KT/V NATURAL LOG, URR (HC) Routine 04/05/2024 3:00 AM EST LIH (HC) Routine 04/02/2024 3:00 AM EST KT/V NATURAL LOG, URR (HC) Routine 04/02/2024 3:00 AM EST LIH (HC) Routine 03/31/2024 3:00 AM EST POTASSIUM Routine 03/31/2024 3:00 AM EST KT/V NATURAL LOG, URR (HC) Routine 03/31/2024 3:00 AM EST CREATININE CLEARANCE, URINE, 24 HOUR Routine 03/31/2024 3:00 AM EST HEMOGLOBIN AND HEMATOCRIT, BLOOD Routine 03/31/2024 3:00 AM EST LIH (HC) Routine 03/26/2024 3:00 AM EST POTASSIUM Routine 03/26/2024 3:00 AM EST KT/V NATURAL LOG, URR (HC) Routine 03/26/2024 3:00 AM EST PHOSPHATE ( PHOSPHORUS) Routine 03/22/2024 3:00 AM EST LIH (HC) Routine 03/22/2024 3:00 AM EST KT/V NATURAL LOG, URR (HC) Routine 03/22/2024 3:00 AM EST HEPATITIS B SURFACE ANTIGEN W/REFL CONFIRM Routine 03/17/2024 3:00 AM EST TRANSFERRIN SATURATION Routine 3:00 AM EST PROTEIN, TOTAL, SERUM Routine 03/17/2024 3:00 AM EST MAGNESIUM Routine 03/17/2024 3:00 AM EST LACTATE DEHYDROGENASE Routine 03/17/2024 3:00 AM EST ELECTROLYTE PANEL Routine 03/17/2024 3:0 0 AM EST LIH (HC) Routine 03/17/2024 3:00 AM EST GLUCOSE, RANDOM Routine 03/17/2024 3:00 AM EST CREATININE, SERUM Routine 03/17/2024 3:0 0 AM EST AST Routine 03/17/2024 3:00 AM EST BILIRUBIN, TOTAL Routine 03/17/2024 3:00 AM EST ALT Routine 03/17/2024 3:00 AM EST ALKALINE PHOSPHATASE Routine 03/17/2024 3:00 AM EST CALCIUM PHOSPHORUS PRODUCT, ADJUSTED (HC) Routine 03/17/2024 3:00 AM EST PTH, INTACT Routine 03/17/2024 3:00 AM EST FERRITIN Routine 03/17/2024 3:00 AM EST CBC AND DIFFERENTIAL Routine 03/17/2024 3:00 AM EST KT/V NATURAL LOG, URR (HC) Routine 03/17/2024 3:00 AM EST LIH (HC) Routine 03/10/2024 3:00 AM EST POTASSIUM Routine 03/10/2024 3:00 AM EST HEMOGLOBIN Routine 03/08/2024 3:00 AM EST LIH (HC) Routine 03/05/2024 3:00 AM EST KT/V NATURAL LOG, URR () Routine 03/05/2024 3:00 AM EST LIH () Routine 03/03/2024 3:00 AM EST POTASSIUM Routine 03/03/2024 3:00 AM EST HEMOGLOBIN AND HEMATOCRIT, BLOOD Routine 03/03/2024 3:00 AM EST PTH, INTACT Routine 02/25/2024 3:00 AM EST LIH () Routine 02/25/2024 3:00 AM EST ALBUMIN Routine 02/25/2024 3:00 AM EST KT/V NATURAL LOG, URR () Routine 02/25/2024 3:00 AM EST ALUMINUM LEVEL Routine 02/20/2024 3:00 AM EST HEMOGLOBIN A1C Routine 02/20/2024 3:00 AM EST HEPATITIS C ABS W/REFLEX RNA DETECTR Routine 02/20/2024 3:00 AM EST CONFIRMATION TEST HCV Routine 02/20/2024 3:00 AM EST CBC Routine 02/20/2024 3:00 AM EST HEPATITIS B SURFACE ANTIGEN W/REFL CONFIRM Routine 02/20/2024 3:00 AM EST URIC ACID Routine 02/20/2024 3:00 AM EST TRANSFERRIN SATURATION Routine 3:00 AM EST PROTEIN, TOTAL, SERUM Routine 02/20/2024 3:00 AM EST ELECTROLYTE PANEL Routine 02/20/2024 3:0 0 AM EST LIPID PANEL Routine 02/20/2024 3:00 AM EST LIH (HC) Routine 02/20/2024 3:00 AM EST MAGNESIUM Routine 02/20/2024 3:00 AM EST GLUCOSE, RANDOM Routine 02/20/2024 3:00 AM EST CREATININE, SERUM Routine 02/20/2024 3:0 0 AM EST LACTATE DEHYDROGENASE Routine 02/20/2024 3:00 AM EST BILIRUBIN, TOTAL Routine 02/20/2024 3:00 AM EST AST Routine 02/20/2024 3:00 AM EST ALT Routine 02/20/2024 3:00 AM EST ALKALINE PHOSPHATASE Routine 02/20/2024 3:00 AM EST CALCIUM PHOSPHORUS PRODUCT, ADJUSTED (HC) Routine 02/20/2024 3:00 AM EST FERRITIN Routine 02/20/2024 3:00 AM EST HEPATITIS B SURFACE ANTIBODY QUANT Routine 02/20/2024 3:00 AM EST PTH, INTACT Routine 02/20/2024 3:00 AM EST KT/V NATURAL LOG, URR (HC) Routine 02/20/2024 3:00 AM EST COLLECTION DATE (HC) Routine 02/20/2024 3:00 AM EST from Last 3 Months Results * LIH (04/23/2024 3:00 AM EDT) Only the most recent of15 resultswithin the time period is included. Lipemia Normal Normal [facility] Icterus Normal Normal [facility] Hemolysis Normal Normal [facility] 04/23/2024 3:00 AM EDT 04/24/2024 1:47 PM EDT Jon Wang MD LAB [id number] SOLICITED RESULTS Final Result [facility]PS [facility] [address] [place] [address] * (ABNORMAL) Kt/V Natural Log, URR (04/23/2024 3:00 AM EDT) Only the most recent of13 resultswithin the time period is included. Pathologist [facility] Treatment Time 135 min [facility] Pre-Weight, lb 60.0 kg [facility] Post-Weight, lb 58.8 kg [facility] Ultrafiltration Rate 9 <=13 mL/kg/hr [facility] Comment: Recommend achieving Ultrafiltration Rate (UFR) <=10 mL/kg/hr References: Terrell GARCIA et al. Kidney Int. 2010; 79(2):250-257 BUN Post Dialysis 21 7 - 25 mg/dL [facility] BUN 59(H) 7 - 25 mg/dL [facility] UREA REDUCTION RATIO (%) 64(L) >=65 % [facility] Kt/V Natural Log 1.14(L) >=1.2 [facility] 04/23/2024 3:00 AM EDT 04/24/2024 1:04 PM EDT Jon Wang MD LAB [id number] SOLICITED RESULTS Final Result Performing Organization Address [facility] de Phone Number [facility] [address] [place] [address] * (ABNORMAL) PTH, Intact (04/19/2024 3:00 AM EDT) Only the most recent of4 resultswithin the time period is included. PTH, Intact 1,066(H) 160 - 721 pg/mL [facility] Comment: Suggested (KDIGO) ESRD maintenance range is two to nine times the upper normal limit (80.1 pg/mL) for the laboratory. 04/19/2024 3:00 AM EDT 04/20/2024 12:52 PM EDT Jon Wang MD LAB BLOOD ORDERABLES Final Re sult Performing Organization Address [facility] de Phone Number [facility] [address] [place] [address] * (ABNORMAL) Calcium Phosphorus Product, Adjusted (04/14/2024 3:00 AM EST) Only the most recent of3 resultswithin the time period is included. Albumin 4.1 3.6 - 5.4 g/dL [facility] Calcium 9.3 8.6 - 10.3 mg/dL [facility] Phosphorus, Serum 6.9(H) 2.5 - 5.0 mg/dL [facility] Ca*PO4 64.2(A) <55.0 mg2/dL2 [facility] Calcium, Adjusted Total 9.3 8.6 - 10.3 mg/dL [facility] CA*PO4 CORRCTD 64.2(A) <55.0 mg2/dL2 [facility] 04/14/2024 3:00 AM EST 04/15/2024 2:40 PM EST Jon Wang MD LAB [id number] SOLICITED RESULTS Final Result Performing Organization Address [facility] de Phone Number [facility] [address] [place] [address] * Hepatitis B Surface Ag w/Reflex Confirmation (04/14/2024 3:00 AM EST) Only the most recent of3 resultswithin the time period is included. Pathologist [facility] Hep B Surface Antigen Negative Negative [facility] 04/14/2024 3:00 AM EST 04/15/2024 2:40 PM EST Jon Wang MD LAB BLOOD ORDERABLES Final Re sult Performing Organization Address [facility] de Phone Number [facility] [address] [place] [address] * (ABNORMAL) TSAT (04/14/2024 3:00 AM EST) Only the most recent of3 resultswithin the time period is included. [facility] Iron 115 50 - 170 ug/dL [facility] Transferrin 154(L) 250 - 380 mg/dL [facility] TIBC 216 211 - 406 ug/dL [facility] Iron Saturation (TSat) 53(H) 22 - 52 % [facility] 04/14/2024 3:00 AM EST 04/15/2024 2:40 PM EST Jon Wang MD LAB BLOOD ORDERABLES Final Re sult Performing Organization Address [facility] de Phone Number [facility] [address] [place] [address] * (ABNORMAL) CBC and Differential (04/14/2024 3:00 AM EST) Only the most recent of2 resultswithin the time period is included. [facility] DIFFERENTIAL MANUAL, 2 Not Indicated [facility] White Blood Cells 7.2 4.0 - 10.0 K/uL [facility] RBC 3.83(L) 3.93 - 5.22 M/uL [facility] Hgb 11.9 11.2 - 15.7 g/dL [facility] Hemoglobin x 3 35.7 33.6 - 47.1 g/dL [facility] Hematocrit 35.2 34.1 - 44.9 % [facility] MCV 91.9 79.4 - 94.8 fL [facility] MCH 31.1 25.6 - 32.2 pg [facility] MCHC 33.8 32.2 - 35.5 g/dL [facility] Platelets 244 182 - 369 K/uL [facility] RDW 14.2 11.7 - 14.4 % [facility] Neutrophils Relative 60.6 34.0 - 71.1 % [facility] Lymphocytes Relative 28.1 19.3 - 51.7 % [facility] Monocytes 7.1 4.7 - 12.5 % [facility] Eosinophils Relative 2.8 0.7 - 5.8 % [facility] Basophils Relative 1.1 0.1 - 1.2 % [facility] Immature Granulocytes 0.3 0.0 - 1.0 % [facility] 04/14/2024 3:00 AM EST 04/15/2024 2:44 PM EST oJn Wang MD LAB BLOOD ORDERABLES Final Re sult Performing Organization Address [facility] de Phone Number [facility] [address] [place] [address] * ALT (04/14/2024 3:00 AM EST) Only the most recent of3 resultswithin the time period is included. ALT (SGPT) 23 10 - 49 U/L [facility] 04/14/2024 3:00 AM EST 04/15/2024 2:40 PM EST Jon Wang MD LAB BLOOD ORDERABLES Final Re sult Performing Organization Address [facility] de Phone Number [facility] [address] [place] [address] * AST (04/14/2024 3:00 AM EST) Only the most recent of3 resultswithin the time period is included. AST (SGOT) 29 <34 U/L [facility] 04/14/2024 3:00 AM EST 04/15/2024 2:40 PM EST Jon Wang MD LAB BLOOD ORDERABLES Final Re sult Performing Organization Address [facility] de Phone Number [facility] [address] [place] [address] * Protein, total (04/14/2024 3:00 AM EST) Only the most recent of3 resultswithin the time period is included. Total Protein 6.9 6.4 - 8.9 g/dL [facility] 04/14/2024 3:00 AM EST 04/15/2024 2:40 PM EST Jon Wang MD LAB BLOOD ORDERABLES Final Re sult Performing Organization Address [facility] Co de Phone Number [facility] [address] [place] [address] * (ABNORMAL) Alkaline phosphatase (04/14/2024 3:00 AM EST) Only the most recent of3 resultswithin the time period is included. Alkaline Phosphatase 189(H) 46 - 116 U/L [facility] 04/14/2024 3:00 AM EST 04/15/2024 2:40 PM EST Jon Wang MD LAB BLOOD ORDERABLES Final Re sult Performing Organization Address [facility] Co de Phone Number [facility] [address] [place] [address] * Magnesium (04/14/2024 3:00 AM EST) Only the most recent of3 resultswithin the time period is included. Magnesium 2.7 1.9 - 2.7 mg/dL [facility] 04/14/2024 3:00 AM EST 04/15/2024 2:40 PM EST us Jon Wang MD LAB BLOOD ORDERABLES Final Re sult Performing Organization Address [facility] Co de Phone Number [facility] [address] [place] [address] * Lactate dehydrogenase (04/14/2024 3:00 AM EST) Only the most recent of3 resultswithin the time period is included. LDH 210 120 - 246 U/L [facility] 04/14/2024 3:00 AM EST 04/15/2024 2:40 PM EST us Jon Wang MD LAB BLOOD ORDERABLES Final Re sult Performing Organization Address [facility] de Phone Number [facility] [address] [place] [address] * Glucose, random (04/14/2024 3:00 AM EST) Only the most recent of3 resultswithin the time period is included. Glucose 90 74 - 109 mg/dL [facility] 04/14/2024 3:00 AM EST 04/15/2024 2:40 PM EST us Jon Wang MD LAB BLOOD ORDERABLES Final Re sult Performing Organization Address [facility] de Phone Number [facility] [address] [place] [address] * (ABNORMAL) Ferritin (04/14/2024 3:00 AM EST) Only the most recent of3 resultswithin the time period is included. Ferritin 1,229(H) 10 - 291 ng/mL [facility] 04/14/2024 3:00 AM EST 04/15/2024 2:40 PM EST us Jon Wang MD LAB BLOOD ORDERABLES Final Re sult Performing Organization Address [facility] de Phone Number [facility] [address] [place] [address] * (ABNORMAL) Creatinine, serum (04/14/2024 3:00 AM EST) Only the most recent of3 resultswithin the time period is included. Creatinine 7.56(H) 0.55 - 1.02 mg/dL [facility] 04/14/2024 3:00 AM EST 04/15/2024 2:40 PM EST us Jon Wang MD LAB BLOOD ORDERABLES Final Re sult Performing Organization Address [facility] de Phone Number [facility] [address] [place] [address] * (ABNORMAL) Bilirubin, total (04/14/2024 3:00 AM EST) Only the most recent of3 resultswithin the time period is included. Total Bilirubin 0.2(L) 0.3 - 1.2 mg/dL [facility] 04/14/2024 3:0 0 AM EST 04/15/2024 2:40 PM EST us Jon Wang MD LAB BLOOD ORDERABLES Final Re sult Performing Organization Address [facility] de Phone Number [facility] [address] [place] [address] * (ABNORMAL) Electrolyte panel (04/14/2024 3:00 AM EST) Only the most recent of3 resultswithin the time period is included. Sodium 136 136 - 145 mEq/L [facility] Potassium 4.8 3.4 - 5.0 mEq/L [facility] Chloride 105 98 - 107 mEq/L [facility] Bicarbonate (CO2) 18(L) 21 - 31 mEq/L [facility] Anion Gap 13 3 - 14 mEq/L [facility] 04/14/2024 3:00 AM EST 04/15/2024 2:40 PM EST us Jon Wang MD LAB BLOOD ORDERABLES Final Re sult Performing Organization Address [facility] de Phone Number [facility] [address] [place] [address] * Potassium (04/09/2024 3:00 AM EST) Only the most recent of5 resultswithin the time period is included. Potassium 4.7 3.4 - 5.0 mEq/L [facility] 04/09/2024 3:00 AM EST 04/10/2024 1:32 PM EST us Jon Wang MD LAB BLOOD ORDERABLES Final Re sult Performing Organization Address [facility] de Phone Number [facility] [address] [place] [address] * (ABNORMAL) Creatinine clearance, urine, 24 hour (03/31/2024 3:00 AM EST) Patient Height (FT) 150.0 cm [facility] Dry Weight Not Received kg [facility] Creatinine 6.34(H) 0.55 - 1.02 mg/dL [facility] 03/31/2024 3:00 AM EST 04/02/2024 12:56 PM EST Jno Wang MD LAB URINE ORDERABLES Final Re sult Performing Organization Address [facility] de Phone Number [facility] [address] [place] [address] * Hemoglobin and hematocrit (03/31/2024 3:00 AM EST) Only the most recent of2 resultswithin the time period is included. Hgb 12.1 11.2 - 15.7 g/dL [facility] Hematocrit 37.1 34.1 - 44.9 % [facility] Hemoglobin x 3 36.3 33.6 - 47.1 g/dL [facility] 03/31/2024 3:00 AM EST 04/02/2024 12:35 PM EST Jon Wang MD LAB BLOOD ORDERABLES Final Re sult Performing Organization Address [facility] de Phone Number [facility] [address] [place] [address] * (ABNORMAL) Phosphorus (03/22/2024 3:00 AM EST) Phosphorus, Serum 5.2(H) 2.5 - 5.0 mg/dL [facility] 03/22/2024 3:00 AM EST 03/23/2024 1:19 PM EST Jon Wang MD LAB BLOOD ORDERABLES Final Re sult Performing Organization Address [facility] de Phone Number [facility] [address] [place] [address] * (ABNORMAL) Hemoglobin (03/08/2024 3:00 AM EST) Hgb 11.0(L) 11.2 - 15.7 g/dL [facility] Hemoglobin x 3 33.0(L) 33.6 - 47.1 g/dL [facility] 03/08/2024 3:00 AM EST 03/09/2024 12:17 PM EST us Jon Wang MD LAB BLOOD ORDERABLES Final Re sult Performing Organization Address [facility] de Phone Number [facility] [address] [place] [address] * Albumin (02/25/2024 3:00 AM EST) Albumin 3.7 3.6 - 5.4 g/dL [facility] 02/25/2024 3:00 AM EST 02/26/2024 2:29 PM EST us Jon Wang MD LAB BLOOD ORDERABLES Final Re sult Performing Organization Address [facility] de Phone Number [facility] [address] [place] [address] * Confirmation Test HCV (02/20/2024 3:00 AM EST) Hep C Ab Confirmation Not needed [facility] 02/20/2024 3:00 AM EST 02/23/2024 1:57 PM EST us Jon Wang MD LAB BLOOD ORDERABLES Final Re sult Performing Organization Address [facility] de Phone Number [facility] [address] [place] [address] * Collection Date (02/20/2024 3:00 AM EST) Collection Date See Comment [facility] Comment: Patient sample received may exceed specimen stability, based on the collection date electronically provided. ??When reviewing patient results, verify collection information and consider specimen stability before acting on any critical or panic results. 02/20/2024 3:00 AM EST us Jon Wang MD LAB [id number] SOLICITED RESULTS Final Result Performing Organization Address [facility] de Phone Number [facility] [address] [place] [address] * HEPATITIS C ABS W/REFLEX RNA DETECTR (02/20/2024 3:00 AM EST) Hep C Virus Ab Non-Reacti ve Non-Reacti ve [facility] 02/20/2024 3:00 AM EST 02/23/2024 1:26 PM EST us Jon Wang MD LAB [id number] SOLICITED RESULTS Final Result Performing Organization Address [facility] de Phone Number [facility] [address] [place] [address] * Aluminum level (02/20/2024 3:00 AM EST) Aluminum 4 1 - 20 ug/L [facility] 02/20/2024 3:00 AM EST 02/23/2024 1:22 PM EST us Jon Wang MD LAB BLOOD ORDERABLES Final Re sult Performing Organization Address [facility] de Phone Number [facility] [address] [place] [address] * Hepatitis B Surface Antibody (02/20/2024 3:00 AM EST) Hep B Surface Antibody >1,000 mIU/mL [facility] Comment: Interpretation: <10: No Immunity >=10: Probable Immunity 02/20/2024 3:00 AM EST 02/23/2024 1:26 PM EST us Jon Wang MD LAB BLOOD ORDERABLES Final Re sult Performing Organization Address [facility] Co de Phone Number [facility] [address] [place] [address] * (ABNORMAL) CBC (02/20/2024 3:00 AM EST) White Blood Cells 5.4 4.0 - 10.0 K/uL [facility] RBC 3.75(L) 3.93 - 5.22 M/uL [facility] Hgb 11.2 11.2 - 15.7 g/dL [facility] Hematocrit 35.8 34.1 - 44.9 % [facility] MCV 95.5(H) 79.4 - 94.8 fL [facility] MCH 29.9 25.6 - 32.2 pg [facility] MCHC 31.3(L) 32.2 - 35.5 g/dL [facility] Platelets 245 182 - 369 K/uL [facility] RDW 16.1(H) 11.7 - 14.4 % [facility] Hemoglobin x 3 33.6 33.6 - 47.1 g/dL [facility] 02/20/2024 3:00 AM EST 02/23/2024 1:57 PM EST Jon Wang MD LAB BLOOD ORDERABLES Final Re sult Performing Organization Address [facility] de Phone Number [facility]PS [facility] [address] [place] [address] * (ABNORMAL) Uric Acid (02/20/2024 3:00 AM EST) Pathologist [facility] Uric Acid 9.6(H) 2.3 - 6.6 mg/dL [facility] 02/20/2024 3:00 AM EST 02/23/2024 1:26 PM EST Jon Wang MD LAB BLOOD ORDERABLES Final Re sult Performing Organization Address [facility] Co de Phone Number [facility]PS [facility] [address] [place] [address] * Hemoglobin A1c (02/20/2024 3:00 AM EST) Hemoglobin A1C 4.7 <5.7 % [facility] Comment: Methodology: Enzymatic HbA1c (NGSP %) ?Suggested Diagnosis >6.4% ? Diabetic 5.7-6.4% ?Pre-Diabetic <5.7% ? Non-Diabetic Diabetic Glucose Control Evaluation: Therapeutic action suggested at >8.0% ADA recommends a glycemic goal of <7.0% 02/20/2024 3:00 AM EST 02/23/2024 1:57 PM EST us Jon Wang MD LAB BLOOD ORDERABLES Final Re diana [facility] [address] [place] [address] * (ABNORMAL) Lipid panel (02/20/2024 3:00 AM EST) Cholesterol 174 <200 mg/dL [facility] Comment: Optimal: ?<200 Borderline: ? 200-239 Higher Risk: ?>239 Triglycerides 136 <150 mg/dL [facility] Comment: Optimal: ?<150 Borderline High: ??150-199 High: ? 200-499 Very High: ?>499 HDL 58(A) >59 mg/dL [facility] Comment: Desirable: ?>59 Higher Risk: ?<40 LDL-Calc 89 <100 mg/dL [facility] Comment: Optimal: ?<100 Above Optimal: ?100-129 Borderline High: ??130-159 High: ? 160-189 Very High: ?>189 VLDL Cholesterol Art 27 <30 mg/dL [facility] Comment: Optimal: ?<30 Borderline High: ??30-39 High: ? 40-99 Very High: ?>99 Chol/HDL Ratio 3.0 <3.3 [facility] Comment: Optimal: ?<3.3 Higher Risk: ?>6.2 02/20/2024 3:00 AM EST 02/23/2024 1:26 PM EST us Jon Wang MD LAB BLOOD ORDERABLES Final Re sult [facility] [address] [place] [address] from Last 3 Months Insurance [place]IC[place] Care Teams Rod Hanger Relationship Specialty Start Date End Date Rozina Nicole MD [address] [place] PCP - General 02/21/20
--- OUTSIDE RECORDS SUMMARY | 2024-04-24 18:50 | XMS_ITS | Encounter Summary ---
Author Organization [facility] Address [address] [facility] [address] [place] [address] Phone Care Team Providers Care Project Economist Name Role Phone Rozina Nicole MD Primary Care Provider [phone] Encounter Details Date Type Department Care Team ([facility] st Contact Info) Description 05/15/2020 Orders Only [facility] [address] [place] [phone] Jon Wang MD [address] [facility] [address] [place] [phone] Stage 5 chronic kidney disease (HCC) Social History Tobacco Use Types Packs/Day Years Used Date Smoking Tobacco: Former Cigarettes Q uit: 10/31/2018 Comments:Smoking History Inf o:Every day Alcohol Use Standard Drinks/Week Comments No 0 (1 standard drink = 0.6 oz pur e alcohol) Comments Unknown Sex and Gender Information Value Date Recorded Sex Assigned at Not on file Legal Sex Female 4:50 PM EST Gender Identity Not on file Sexual Orientation Not on file COVID-19 Exposure Response Date Recorded In the last month, have you been in contact with someone who was confirmed or suspected to have Coronavirus / COVID-19? No / Unsure 05/08/2020 2:33 PM EDT documented as of this encounter Plan of Treatment Not on file documented as of this encounter Visit Diagnoses Diagnosis Stage 5 chronic kidney disease (HCC) documented in this encounter Care Teams Project Economist Relationship Specialty Start Date End Date Rozina Nicole MD [address] [place] [address] [address] [place] PCP - General 02/21/20 documented as of this encounter
--- OUTSIDE RECORDS SUMMARY | 2024-04-24 18:50 | XMS_ITS | Encounter Summary ---
Author Organization [facility] Address [address] [address] Phone Care Team Providers Care Steam Fitter Supervisor Name Role Phone Rozina Nicole MD Primary Care Provider Encounter Details Date Type Department Care Team ([facility] st Contact Info) Description 04/02/2024 Treatment [facility] [address] [phone] Yamileth Varghese MD [address] [phone] Social History Tobacco Use Types [...] Dialysis Note - Yamileth Varghese MD - 04/02/2024 12:00 AM EST Patient: Meliza Perry : 1970 Note Type: Dialysis Rounds-Basic Telehealth Service Date: 04/02/2024 Telehealth encounter using audiovisual technology, performed according to state requirements. Appropriate patient consent obtained. This patient was personally seen for a basic visit as part of routine monthly dialysis care for end stage renal disease. Attending Box Cutter: YAMILETH VARGHESE MD Dialysis Location: [facility] [...] COMMENT COMMENTS: 03/31/24 doing ok 04/02/24 stable 03/22/24 doing better w GI issues [...] by: YAMILETH VARGHESE MD on 04/04/2024 at 02:29:21 PM documented in this encounter Plan of Treatment Not on file documented as of this encounter Visit Diagnoses Not on filedocumented in this encounter Care Teams Steam Fitter Supervisor Relationship Specialty Start Date End Date Rozina Nicole MD [address] [place] [address] PCP - General 02/21/20 documented as of this encounter
--- OUTSIDE RECORDS SUMMARY | 2024-04-24 18:50 | XMS_ITS | Encounter Summary ---
Author Organization [facility] Address [address] [place] [address] Phone Care Team Providers Care Insulation Cutter And Former Name Role Phone Rozina Nicole MD Primary Care Provider [phone] Encounter Details Date Type Department Care Team (Late st Contact Info) Description 05/08/2020 Orders Only [facility] [address] [place] [address] Provider, MD Wendy [address] [place], [place] [phone] Social History Tobacco Use Types Packs/Day Years [...] on file documented as of this encounter Procedures Procedure Name Priority Date/Time Associated Diagnosis Comments EXT RESULT ENTRY Routine 04/26/2020 documented in this encounter Results * EXT RESULT ENTRY (04/26/2020) us Historical Provider LAB BLOOD ORDERABLES Jennifer l Result documented in this encounter Visit Diagnoses Not on filedocumented in this encounter Care Teams Insulation Cutter And Former Relationship Specialty Start Date End Date Rozina Nicole MD [address] [place], [place] PCP - General 02/21/20 documented as of this encounter
--- OUTSIDE RECORDS SUMMARY | 2024-04-24 18:50 | XMS_ITS | Encounter Summary ---
Author Organization [facility] Address [address] [facility] [address] [place] [address] Phone Care Team Providers Care Safety Grooving Machine Operator Name Role Phone Rozina Nicole MD Primary Care Provider [phone] Encounter Details Date Type Department Care Team (Late st Contact Info) Description 05/22/2020 Orders Only [facility] [address] [place] [address] Jon Wang MD [address] [facility] [address] [place] [phone] Stage 5 chronic kidney disease (HCC) Social [...] (HCC) documented in this encounter Care Teams Safety Grooving Machine Operator Relationship Specialty Start Date End Date Rozina Nicole MD [address] [place] [address] [address] [place] PCP - General 02/21/20 documented as of this encounter
--- OUTSIDE RECORDS SUMMARY | 2024-04-24 18:50 | XMS_ITS | Encounter Summary ---
Author Organization [facility] Address [address] [place] [address] Phone Care Team Providers Care Urogynecology Physician Name Role Phone Rozian Nicole MD Primary Care Provider [phone] Reason for Visit * Reason Onset Date Comments Med Refill 11/23/2020 Encounter Details Date Type Department Care Team (Late st Contact Info) Description 11/23/2020 Refill [facility] [address] [place] [phone] Nkechi Salvador, ALEX [facility] [address] [place] [address] Social History Tobacco Use Types Packs/Day Years [...] on file documented as of this encounter Plan of Treatment Not on file documented as of this encounter Visit Diagnoses Not on filedocumented in this encounter Care Teams Urogynecology Physician Relationship Specialty Start Date End Date Rozina Nicole MD [address] [place], [place] PCP - General 02/21/20 documented as of this encounter
[2024-04-24 19:29] VITALS: BP 116/43; PULSE 108; RESP 15; TEMP 37.1
[2024-04-24 19:45] VITALS: BP 132/50; PULSE 108; RESP 16; TEMP 36.9
--- NOTE | 2024-04-24 19:45 | PC.NURSE ---
initial 15 min of transfusion completed. nad. no reactions noted. lung sounds cta. nsr on monitor. vitals as documented. pt reports 4/10 abd pain, states tolerable level. aware.
--- NOTE | 2024-04-24 20:36 | P.HPHOSP_ITS ---
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 She also described epigastric pain radiating up the chest. pale, lightheaded and dizzy. feels the saem as previous episodes with GI bleeds. no recent sick contacts. no fever but has had chills for the past few days. states that she has not moved much since dialysis since she was feeling unwell. Review of Systems 2 Constitutional: Constitutional: Denies body ache(s), Reports chills, Reports fatigue, Denies fever(s) and Denies headache(s) Eyes: Eyes: Denies change in vision and Denies photophobia ENT: Denies headache(s), Denies nasal congestion, Denies nasal discharge, Denies neck pain and Denies sore throat Cardiovascular: Cardiovascular: Reports chest pain, Reports rapid heart rate, Denies leg edema, Reports lightheadedness and Reports dyspnea Respiratory: Respiratory: Reports dyspnea and Denies wheezing Gastrointestinal: Gastrointestinal: Reports melena, Reports diarrhea, Reports nausea, Reports vomiting and Reports hematemesis Genitourinary: Genitourinary: Denies dysuria and Denies urinary urgency Musculoskeletal: Musculoskeletal: Denies neck pain Integumentary/Breasts: Skin/Breast: Denies rash Neurologic: Denies confusion and Denies headache(s) Psychiatric: Psychiatric: Denies confusion Endocrine: Endocrine: Reports fatigue Hematologic/Lymphatic: Hematologic/Lymphatic: Denies easy bleeding and Denies easy bruising Allergic/Immunologic: Allergic/Immunologic: Denies wheezing [facility] Medical History ESRD on dialysis End stage chronic kidney disease Moderate major depression Physical exam Spondylosis without myelopathy or radiculopathy, lumbar region Spinal stenosis 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 Lumbar back pain with radiculopathy affecting left lower extremity Physical exam (~02/14/21) Peritoneal dialysis catheter in place Polyarthralgia Dyslipidemia Family history of ovarian cancer Abnormal mammogram of right breast Angina pectoris syndrome Chest pain Constipation Nephrosclerosis Renal interstitial fibrosis Obesity (BMI 30-39.9) Back pain GERD (gastroesophageal reflux disease) History of headache HTN (hypertension) Functional capacity: independent ambulation Family History Father Asthma Mother Asthma Hypertension Ovarian cancer Maternal Grandfather Myocardial infarction Paternal Grandmother Stroke Surgical History S/P arteriovenous (AV) graft placement History of sleeve gastrectomy Fistula Hx of colonoscopy Hx of hysterectomy Hx of tubal ligation History of endometrial ablation Social History Household Members: Family Housing: Apartment Do you presently have visiting nurse or other home services: No (Services to be started) Alcohol intake: current Alcohol intake frequency: holidays/special occasions only Alcohol type: beer Comment: Patient doesn't want bed alarm on Patient Tobacco Use Status: Current everyday Tobacco user Tobacco use type: Cigarette Cigarette Packs Per Day: 1 Cigarettes Per Day: 20.0 Years Smoked: 10+ Smoked in Last 30 Days: Yes e-Cigarette/Vaping Use: Currently Using Patient Interested in Nicotine Replacement: Yes Patient Given Instructions on How to Stop Smoking: No (Declined) Second Hand Smoke Exposure: No Use of substances other than those prescribed or required for medical reasons: No Currently Displaying Signs/Symptoms of Drug Intoxication Withdrawal: No Any prior treatment program specific to substance use: No Have you been hit, kicked, punched, or otherwise hurt by someone within the past year? If so, by whom?: No Do you feel safe in your current relationship?: Yes Is there a partner from a previous relationship who is making you feel unsafe now?: No Are you made to feel afraid or neglected: No Spiritual Healthcare Practices: Episcopal Advance Directives: Yes Advance Directives Information Provided: No Advance Directives on File: Yes Advance Directives Date on File: 04/27/20 Do you have a plan to hurt others: No Plan Recently lost weight without trying: No Eating poorly because of decreased appetite: No Nutrition Risks: No Nutritional Risk Patient : No : No Poor oral hygiene: No service: No Current occupational status: employed Cognitive needs: No Hearing needs: No Vision needs: Yes (reading glasses) Narrative: smokes 1 pk/day. no etoh or drug use. Meds Allergies Allergy/AdvReac Type Severity Reaction Status Date / Time ibuprofen Allergy Severe Unknown Verified 04/24/24 17:50 nifedipine Allergy Intermediate hives, leg Verified 04/24/24 17:50 edema Active Medications: Current Medications Acetaminophen (Acetaminophen 325 Mg Tablet) 975 mg PO Q6H PRN PRN Reason: Pain, Mild 1-3,fever,headache Calcium Carbonate (Calcium Carbonate 750 Mg Tab.Chew) 750 mg PO Q4H PRN PRN Reason: Heartburn Magnesium Hydroxide (Milk Of Magnesia 30 Ml Oral.Susp) 30 ml PO DAILY PRN PRN Reason: Constipation Melatonin (Melatonin 3 Mg Tablet) 6 mg PO BEDTIME PRN PRN Reason: Insomnia Nicotine (Nicotine 21 Mg Patch.Td24) 21 mg TRANSDERMA DAILY [facility] Ondansetron HCl (Ondansetron Hcl 4 Mg/2 Ml Vial) 4 mg IVPUSH Q8H PRN PRN Reason: Nausea and Vomiting Pantoprazole Sodium (Pantoprazole Sodium 40 Mg/10 Ml Vial) 40 mg IVPUSH BID@0630,1630 [facility] Sodium Chloride (0.9 % Sodium Chloride Flush 3 Ml Syringe) 3 ml IVFLUSH QSHIFT [facility] Home Medications ?Medication ?Instructions ?Recorded ?Confirmed ?Last Taken ?Type ferrous sulfate 325 mg (65 mg 325 mg PO BID PRN Iron Levels 05/11/20 04/25/24 04/23/24 History iron) tablet,delayed release cyanocobalamin (vitamin B-12) 1,000 mcg PO DAILY 10/17/20 04/25/24 04/23/24 History 1,000 mcg tablet pyridoxine (vitamin B6) 50 mg 50 mg PO DAILY 06/06/21 04/25/24 04/23/24 History tablet ergocalciferol (vitamin D2) 1,250 1,250 mcg PO PLEITEZ@0900 07/05/21 04/25/24 04/23/24 History mcg (50,000 unit) capsule (Vitamin D2) midodrine 5 mg tablet 5 mg PO TID 03/25/23 04/25/24 04/23/24 History acetaminophen 500 mg capsule 1,000 mg PO Q8H PRN Pain 08/10/23 04/25/24 04/23/24 History (Mapap (acetaminophen)) fluticasone propionate 50 1 spray intranasal DAILY PRN 08/10/23 04/25/24 04/23/24 History mcg/actuation nasal Allergy Symptoms spray,suspension rorwuvuu-tvrmyfxe-dcwn 45 mg-folic 1 cap PO DAILY 08/10/23 04/25/24 04/23/24 History acid 800 mcg-vit K 120 mcg capsule (Bariatric Multivitamins) parenteral amino acid 15% no.5 15 0.5 ea IV MOWEFR@0900 08/10/23 04/25/24 04/23/24 History % combination no.5 intravenous solution (Clinisol SF) sucralfate 1 gram tablet 1 g PO BID 08/10/23 04/25/24 04/23/24 History carvedilol 6.25 mg tablet 6.25 mg PO BID 11/19/23 04/25/24 04/23/24 History gabapentin 400 mg capsule 400 mg PO BID 12/29/23 04/25/24 04/23/24 History oxycodone 5 mg tablet 5 mg PO Q6H PRN pain 12/29/23 04/25/24 04/23/24 History potassium chloride 20 mEq 20 meq PO DAILY 12/29/23 04/25/24 04/23/24 History tablet,extended release sevelamer carbonate 800 mg tablet 1,600 mg PO TIDWM 12/29/23 04/25/24 04/23/24 History pantoprazole 40 mg tablet,delayed 40 mg PO DAILY@0630 04/25/24 04/25/24 04/24/24 History release Physical Exam 2 Vital Signs and Narrative: Vital Signs: Last Vital Signs Temp 98.5 F 04/24/24 19:45 Pulse 108 H 04/24/24 19:45 Resp 16 04/24/24 19:45 BP 132/50 L 04/24/24 19:45 Pulse Ox 98 04/24/24 17:48 O2 Del Method Room Air 04/24/24 17:48 BMI result Body Mass Index 22.0 General: AOx3, no acute distress Resp: CTA bilaterally CVS: tachy, regular rhythm, no murmur GI: +BS, NT, no distention Skin: Warm, dry Neuro: Cranial nerves II-XII grossly intact bilaterally. Motor grossly intact bilaterally Extremities: No LE edema Psych: Appropriate affect Const: General: No confusion Orientation/consciousness: No confusion Eyes: Direct Ophthalmoscopy: No photophobia Neuro: General: No confusion Results Labs 04/25/24 05:49 04/25/24 05:49 Labs: Laboratory Results - last 24 hr 04/24/24 04/24/24 18:04 18:05 MCV 91.2 MCH 31.5 MCHC 34.5 RDW 14.7 Plt Count 265 MPV 10.4 Immature Gran % (Auto) 0.5 H Neut % (Auto) 75.6 H Lymph % (Auto) 18.6 L Daggett % (Auto) 4.8 Eos % (Auto) 0.1 Baso % (Auto) 0.4 Lymph # (Auto) 2.2 Daggett # (Auto) 0.6 Eos # (Auto) 0.0 Baso # (Auto) 0.1 Abs Immat Gran (auto) 0.06 H Absolute Neuts (auto) 8.8 H Absolute Nucleated RBC 0.000 Nucleated RBC % (auto) 0.0 PT 11.6 D INR 1.0 Anion Gap 22 H Estim Creat Clear Calc 10.1 Estimated GFR 8 Random Glucose 147 H Calcium 9.2 Total Bilirubin 0.3 Direct Bilirubin 0.1 AST 22 ALT 12 Alkaline Phosphatase 89 Total Protein 6.3 L Albumin 3.2 L Lipase 26 Blood Type O Positive Antibody Screen NEGATIVE Crossmatch See Detail Assessment and Plan (1) Upper GI bleeding: Status: Resolved (2) ESRD on dialysis: Status: Acute (3) Smoker: Status: Acute Plan Pt is a 53 yo female with a pmhx significant for 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 Quality Stroke Does the patient have a stroke diagnosis?: No VTE Prior VTE?: No VTE Risk Level:: Medical - moderate - high VTE Device Contraindication: N/A - Device Ordered VTE Drug Contraindication: Treatment Not Indicated
[2024-04-24 20:58] VITALS: BP 127/62; PULSE 106; RESP 14; TEMP 36.9; O2SAT 97
[2024-04-24 21:44] VITALS: BP 116/56; PULSE 106; RESP 16; TEMP 37
--- NOTE | 2024-04-24 21:45 | PC.NURSE ---
blood transfusion completed. no reactions noted. lung sounds cta. vitals as documented. per PA can have few ice chips, given per request. call simon within reach.
--- NOTE | 2024-04-24 22:00 | PC.NURSE ---
pt reports pain increased to 7/10 and nauseated, Noreen PARKER aware. prn zofran not due at this time and no prn pain meds available.
[2024-04-24] MEDS: HYDROmorphone HCl 0.5 MG/0.5 ML SYRINGE 0.25 MG IVPUSH (22:37)
[2024-04-24] MEDS: Prochlorperazine Edisylate 10 MG/2 ML VIAL 5 MG IVPUSH (22:37)
[2024-04-24 23:46] VITALS: BMI 21.5
[2024-04-25] VITALS (16 sets, daily range): BP systolic 100–150; BP diastolic 54–78; PULSE 79–111; RESP 16–20; TEMP 36.5–37.4; O2SAT 97–100
[2024-04-25 00:54] LABS: Hematocrit 18.8 % (37.0-47.0); Hemoglobin 6.6 g/dl (12.0-16.0)
[2024-04-25] MEDS: 0.9 % Sodium Chloride Flush 3 ML SYRINGE IVFLUSH ×3 (01:31→20:22)
[2024-04-25] MEDS: Pantoprazole Sodium 40 MG/10 ML VIAL IVPUSH ×2 (06:01→18:39)
--- NOTE | 2024-04-25 06:23 | PM.EVENT ---
Documented by User: Noreen Galvez PA-C 04/25/24 06:45 Event Note Date of Service: 04/25/24 Event Note: pt was given 1 additional unit of pRBC as hemoglobin went from 6.8 to 6.6 after 1 unit. will likely need additional transfusion during dialysis. Time Spent With Patient Time: Total time managing care of this patient today ____ minutes. Documented by User: Aditya Larsen MD 04/25/24 19:07 Event Note Date of Service: 04/25/24
[2024-04-25 07:47] LABS: Anion Gap 18 (12-20); Calcium 8.9 mg/dL (8.4-10.2); Carbon Dioxide 22 mmol/L (22-29); Chloride 104 mmol/L (96-108); Creatinine Clr Calc Pharmacy 9.4; Estimated Glomerular Filt Rate 7; Glucose Random 87 mg/dL (60-115); Potassium 3.6 mmol/L (3.3-5.1); Sodium 140 mmol/L (135-145)
[2024-04-25 07:53] LABS: Hematocrit 21.1 % (37.0-47.0); Hemoglobin 7.3 g/dl (12.0-16.0); Mean Corpuscular HGB Conc 34.6 g/dl (31.0-35.0); Mean Corpuscular Hemoglobin 31.3 pg (27.0-33.0); Mean Corpuscular Volume 90.6 fL (80.0-98.0); Mean Platelet Volume 10.5 fL (9.4-12.3); Platelet Count 175 X10*3/uL (160-400); Red Blood Count 2.33 X10*6/uL (4.20-5.50); Red Cell Distribution Width 14.8 % (11.0-16.0); White Blood Count 8.9 X10*3/uL (4.8-10.8)
--- NOTE | 2024-04-25 08:00 | MHC.SHP ---
Pre-Procedural Eval Section A - 24 Hr Update-Section A only Date of Service: 04/25/24 The patient is an INPATIENT: Yes Changes since office visit: No Cold of Flu in the past 2 weeks, No New Medical Problems, No Changes in Medication and No Patient answered all questions The patient has been examined within 24 hours of the surgical procedure. The History & Physical has been completed within 30 days and I have reviewed it.: Yes Section B - Complete if H&P > 30 days Chief Complaint: GI Bleed,ESRD on HD MWF Allergies: Allergies Allergy/AdvReac Type Severity Reaction Status Date / Time ibuprofen Allergy Severe Unknown Verified 04/24/24 17:50 nifedipine Allergy Intermediate hives, leg Verified 04/24/24 17:50 edema Plan I have reviewed the history and physical and performed a pertinent physical examination on my patient. No changes have occurred unless specified. Time Spent With Patient Time: Total time managing care of this patient today ____ minutes.
[2024-04-25 08:14] LABS: Blood Urea Nitrogen 146 mg/dL (9-16)
[2024-04-25] MEDS: Nicotine 21 MG PATCH.TD24 TRANSDERMA (09:04)
--- NOTE | 2024-04-25 09:12 | PHA.MEDREC ---
Pharmacy Consult ? Medication Reconciliation Pharmacy has completed the medication reconciliation. Spoke with pt at bedside. Pt was not able to list her medications, and has no one at home that helps with her medications. She was able to confirm yes while going through the list. Pt has been on out presciptionf de luna carvedilol and gabpentin but states she should be on. She states she only takes sucralfate tablets and not the oral solution. She alternates between omperazole and pantoprazole, but states she find pantoprazole to work better for her. She states there has been no changes since her last admission 01/01/24.
--- NOTE | 2024-04-25 10:11 | HO.PM.IMPN ---
Subjective Subjective Date of Service: 04/25/24 Review of Systems Follow up GI bleed, esrd feeling fine this morning HH stable Physical Exam Vital Signs: Vital Signs: Last Vital Signs Temp 98.4 F 04/25/24 07:34 Pulse 93 04/25/24 07:34 Resp 18 04/25/24 07:34 BP 121/58 L 04/25/24 07:34 Pulse Ox 99 04/25/24 07:34 O2 Del Method Room Air 04/25/24 07:34 BMI result Body Mass Index 21.5 Appearing in no acute distress lung sounds are clear to auscultation heart regular rate rhythm, clear S1, S2 positive bowel sounds, abdomen is soft, nontender neuro patient is alert x3, no focal deficits Objective Data Active Medications Acetaminophen (Acetaminophen 325 Mg Tablet) 975 mg PO Q6H PRN PRN Reason: Pain, Mild 1-3,fever,headache Calcium Carbonate (Calcium Carbonate 750 Mg Tab.Chew) 750 mg PO Q4H PRN PRN Reason: Heartburn Hydromorphone HCl (Hydromorphone Hcl 0.5 Mg/0.5 Ml Syringe) 0.25 mg IVPUSH Q4H PRN; Protocol PRN Reason: Pain, Severe (Pain Scale 7-10) Last Admin: 04/24/24 22:37 Dose: 0.25 mg Documented By: ODETTE Magnesium Hydroxide (Milk Of Magnesia 30 Ml Oral.Susp) 30 ml PO DAILY PRN PRN Reason: Constipation Melatonin (Melatonin 3 Mg Tablet) 6 mg PO BEDTIME PRN PRN Reason: Insomnia Nicotine (Nicotine 21 Mg Patch.Td24) 21 mg TRANSDERMA DAILY [facility] Last Admin: 04/25/24 09:04 Dose: 21 mg Documented By: BISI Ondansetron HCl (Ondansetron Hcl 4 Mg/2 Ml Vial) 4 mg IVPUSH Q8H PRN PRN Reason: Nausea and Vomiting Pantoprazole Sodium (Pantoprazole Sodium 40 Mg/10 Ml Vial) 40 mg IVPUSH BID@0630,1630 [facility] Last Admin: 04/25/24 06:01 Dose: 40 mg Documented By: BELEM Prochlorperazine Edisylate (Prochlorperazine Edisylate 10 Mg/2 Ml Vial) 5 mg IVPUSH Q6H PRN PRN Reason: Nausea and Vomiting Last Admin: 04/24/24 22:37 Dose: 5 mg Documented By: ODETTE Sodium Chloride (0.9 % Sodium Chloride Flush 3 Ml Syringe) 3 ml IVFLUSH QSHIFT [facility] Last Admin: 04/25/24 09:04 Dose: 3 ml Documented By: BISI Labs 04/25/24 05:49 04/25/24 05:49 Labs: Laboratory Results - last 24 hr 04/24/24 04/24/24 04/25/24 18:04 18:05 05:49 MCV 91.2 90.6 MCH 31.5 31.3 MCHC 34.5 34.6 RDW 14.7 14.8 Plt Count 265 175 D MPV 10.4 10.5 Immature Gran % (Auto) 0.5 H Neut % (Auto) 75.6 H Lymph % (Auto) 18.6 L Reagan % (Auto) 4.8 Eos % (Auto) 0.1 Baso % (Auto) 0.4 Lymph # (Auto) 2.2 Reagan # (Auto) 0.6 Eos # (Auto) 0.0 Baso # (Auto) 0.1 Abs Immat Gran (auto) 0.06 H Absolute Neuts (auto) 8.8 H Absolute Nucleated RBC 0.000 0.000 Nucleated RBC % (auto) 0.0 0.0 PT 11.6 D INR 1.0 Anion Gap 22 H 18 Estim Creat Clear Calc 10.1 9.4 Estimated GFR 8 7 Random Glucose 147 H 87 Calcium 9.2 8.9 Total Bilirubin 0.3 Direct Bilirubin 0.1 AST 22 ALT 12 Alkaline Phosphatase 89 Total Protein 6.3 L Albumin 3.2 L Lipase 26 Blood Type O Positive Antibody Screen NEGATIVE Crossmatch See Detail Assessment and Plan (1) ESRD on dialysis: Status: Acute Plan 53 yo female with a pmhx significant for 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 Upper GI bleed H+H 6.8/19.7 on admission s/p 2 U pRBC with stabilization of HH NPO GI consult given pantoprazole 80mg in ED, continue 40mg BID ESRD secondary to nephroscleorsis on HD MWF nephro to manage dialysis bicarb low, secondary to ESRD follow BMP Tobacco use nicotine patch smoking cessation discussed HLD continue home meds HTN hold meds for now, BP stable GERD pantoprazole as above Chronic back pain continue home meds Full code VTE prophylaxis: Pneumoboots Patient with upper GI bleed, requiring admission for further evaluation, Quality Stroke Does the patient have a stroke diagnosis?: No VTE Prior VTE?: No VTE Risk Level:: Medical - moderate - high VTE Device Contraindication: N/A - Device Ordered VTE Drug Contraindication: Treatment Not Indicated
--- NOTE | 2024-04-25 11:06 | HO.ANESPROP2 ---
HPI - Anesthesia Eval Consult details Narrative: GI bleeding PMFSH Active Problems Active Problems: All Active Problems GI bleed (Acute) Smoker (Acute) ESRD on dialysis (Acute) Acute anemia (Acute) Underweight (Acute) Suprapubic pain (Acute) Syncope (Acute) Schatzki's ring (Acute) Marginal ulcer (Acute) Gastritis (Acute) Esophagitis (Acute) Idiopathic hypotension (Acute) Moderate major depression (Acute) Systolic murmur (Acute) Malnutrition (Acute) Pre-op examination (Acute) Non-cardiac chest pain (Acute) Polyp of right nasal cavity (Acute) Numbness (Acute) Palpitations (Acute) Urinary and fecal incontinence (Acute) Anxiety and depression (Acute) Chronic low back pain (Acute) Fatigue (Acute) Nasal polyp, benign (Acute) Anxiety and depression (Acute) LLQ abdominal pain (Acute) Tubular adenoma of colon (Acute) Anxiety (Acute) Chronic renal insufficiency (Acute) Spinal stenosis (Acute) 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 (Acute) Lumbar back pain with radiculopathy affecting left lower extremity (Acute) GERD (gastroesophageal reflux disease) (Acute) Polyarthralgia (Acute) Dyslipidemia (Acute) Family history of ovarian cancer (Acute) Abnormal mammogram of right breast (Acute) Chest pain (Acute) Obesity (BMI 30-39.9) (Acute) HTN (hypertension) (Acute) Past Medical History Medical History ESRD on dialysis End stage chronic kidney disease Moderate major depression Physical exam Spondylosis without myelopathy or radiculopathy, lumbar region Spinal stenosis 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 Lumbar back pain with radiculopathy affecting left lower extremity Physical exam (~02/14/21) Peritoneal dialysis catheter in place Polyarthralgia Dyslipidemia Family history of ovarian cancer Abnormal mammogram of right breast Angina pectoris syndrome Chest pain Constipation Nephrosclerosis Renal interstitial fibrosis Obesity (BMI 30-39.9) Back pain GERD (gastroesophageal reflux disease) History of headache HTN (hypertension) Functional capacity: independent ambulation Family History Family History Father Asthma Mother Asthma Hypertension Ovarian cancer Maternal Grandfather Myocardial infarction Paternal Grandmother Stroke Family history of problems with anesthesia: No Surgical History Surgical History S/P arteriovenous (AV) graft placement History of sleeve gastrectomy Fistula Hx of colonoscopy Hx of hysterectomy Hx of tubal ligation History of endometrial ablation History of Problems with Anesthesia: No Social History Social History Household Members: Family Housing: Apartment Do you presently have visiting nurse or other home services: No (Services to be started) Alcohol intake: current Alcohol intake frequency: holidays/special occasions only Alcohol type: beer Comment: Patient doesn't want bed alarm on Patient Tobacco Use Status: Current everyday Tobacco user Tobacco use type: Cigarette Cigarette Packs Per Day: 1 Cigarettes Per Day: 20.0 Years Smoked: 10+ Smoked in Last 30 Days: Yes e-Cigarette/Vaping Use: Currently Using Patient Interested in Nicotine Replacement: Yes Patient Given Instructions on How to Stop Smoking: No (Declined) Second Hand Smoke Exposure: No Use of substances other than those prescribed or required for medical reasons: No Currently Displaying Signs/Symptoms of Drug Intoxication Withdrawal: No Any prior treatment program specific to substance use: No Have you been hit, kicked, punched, or otherwise hurt by someone within the past year? If so, by whom?: No Do you feel safe in your current relationship?: Yes Is there a partner from a previous relationship who is making you feel unsafe now?: No Are you made to feel afraid or neglected: No Spiritual Healthcare Practices: Shinto Advance Directives: Yes Advance Directives Information Provided: No Advance Directives on File: Yes Advance Directives Date on File: 04/27/20 Do you have a plan to hurt others: No Plan Recently lost weight without trying: No Eating poorly because of decreased appetite: No Nutrition Risks: No Nutritional Risk Patient : No : No Poor oral hygiene: No service: No Current occupational status: employed Cognitive needs: No Hearing needs: No Vision needs: Yes (reading glasses) Meds Allergies Allergy/AdvReac Type Severity Reaction Status Date / Time ibuprofen Allergy Severe Unknown Verified 04/24/24 17:50 nifedipine Allergy Intermediate hives, leg Verified 04/24/24 17:50 edema Active Medications: Current Medications Acetaminophen (Acetaminophen 325 Mg Tablet) 975 mg PO Q6H PRN PRN Reason: Pain, Mild 1-3,fever,headache Calcium Carbonate (Calcium Carbonate 750 Mg Tab.Chew) 750 mg PO Q4H PRN PRN Reason: Heartburn Carvedilol (Carvedilol 6.25 Mg Tablet) 6.25 mg PO BID [facility]; Protocol Cyanocobalamin (Cyanocobalamin (Vitamin B-12) 1,000 Mcg Tablet) 1,000 mcg PO DAILY [facility] Ergocalciferol (Ergocalciferol (Vitamin D2) 1,250 Mcg Capsule) 1,250 mcg PO PLEITEZ@0900 [facility] Escitalopram Oxalate (Escitalopram Oxalate 10 Mg Tablet) 10 mg PO DAILY [facility] Fluticasone Propionate (Fluticasone Propionate Nasal 16 Gm Keiser) 1 spray NOSTRIL-B DAILY PRN PRN Reason: Allergy Symptoms Gabapentin (Gabapentin 400 Mg Capsule) 400 mg PO BID [facility] Hydromorphone HCl (Hydromorphone Hcl 0.5 Mg/0.5 Ml Syringe) 0.25 mg IVPUSH Q4H PRN; Protocol PRN Reason: Pain, Severe (Pain Scale 7-10) Last Admin: 04/24/24 22:37 Dose: 0.25 mg Magnesium Hydroxide (Milk Of Magnesia 30 Ml Oral.Susp) 30 ml PO DAILY PRN PRN Reason: Constipation Melatonin (Melatonin 3 Mg Tablet) 6 mg PO BEDTIME PRN PRN Reason: Insomnia Midodrine (Midodrine Hcl 5 Mg Tablet) 5 mg PO TID [facility] Multivitamins/Vitamin C (Multivitamin Tablet) 1 tab PO DAILY [facility] Nicotine (Nicotine 21 Mg Patch.Td24) 21 mg TRANSDERMA DAILY [facility] Last Admin: 04/25/24 09:04 Dose: 21 mg Non-Formulary Medication (Parenteral Amino Acid 15% No.5 [Clinisol Sf 15 %]) 0.5 each IV MOWEFR@0900 [facility] Ondansetron HCl (Ondansetron Hcl 4 Mg/2 Ml Vial) 4 mg IVPUSH Q8H PRN PRN Reason: Nausea and Vomiting Pantoprazole Sodium (Pantoprazole Sodium 40 Mg/10 Ml Vial) 40 mg IVPUSH BID@0630,1630 [facility] Last Admin: 04/25/24 06:01 Dose: 40 mg Potassium Chloride (Potassium Chloride Er 20 Meq Tab.Er.Prt) 20 meq PO DAILY [facility] Prochlorperazine Edisylate (Prochlorperazine Edisylate 10 Mg/2 Ml Vial) 5 mg IVPUSH Q6H PRN PRN Reason: Nausea and Vomiting Last Admin: 04/24/24 22:37 Dose: 5 mg Pyridoxine HCl (Pyridoxine Hcl (Vitamin B6) 50 Mg Tablet) 50 mg PO DAILY [facility] Sevelamer Carbonate (Sevelamer Carbonate Tablet 800 Mg Tablet) 1,600 mg PO TIDWM [facility] Sodium Chloride (0.9 % Sodium Chloride Flush 3 Ml Syringe) 3 ml IVFLUSH QSHIFT [facility] Last Admin: 04/25/24 09:04 Dose: 3 ml Sucralfate (Sucralfate 1 Gm Tablet) 1 gm PO BID [facility] Thiamine HCl (Thiamine Hcl 100 Mg Tablet) 100 mg PO DAILY [facility] Home Medications ?Medication ?Instructions ?Recorded ?Confirmed ?Last Taken ?Type ferrous sulfate 325 mg (65 mg 325 mg PO BID PRN Iron Levels 05/11/20 04/25/24 04/23/24 History iron) tablet,delayed release cyanocobalamin (vitamin B-12) 1,000 mcg PO DAILY 10/17/20 04/25/24 04/23/24 History 1,000 mcg tablet pyridoxine (vitamin B6) 50 mg 50 mg PO DAILY 06/06/21 04/25/24 04/23/24 History tablet ergocalciferol (vitamin D2) 1,250 1,250 mcg PO PLEITEZ@0900 07/05/21 04/25/24 04/23/24 History mcg (50,000 unit) capsule (Vitamin D2) midodrine 5 mg tablet 5 mg PO TID 03/25/23 04/25/24 04/23/24 History acetaminophen 500 mg capsule 1,000 mg PO Q8H PRN Pain 08/10/23 04/25/24 04/23/24 History (Mapap (acetaminophen)) fluticasone propionate 50 1 spray intranasal DAILY PRN 08/10/23 04/25/24 04/23/24 History mcg/actuation nasal Allergy Symptoms spray,suspension [id number] 45 mg-folic 1 cap PO DAILY 08/10/23 04/25/24 04/23/24 History acid 800 mcg-vit K 120 mcg capsule (Bariatric Multivitamins) parenteral amino acid 15% no.5 15 0.5 ea IV MOWEFR@0900 08/10/23 04/25/24 04/23/24 History % combination no.5 intravenous solution (Clinisol SF) sucralfate 1 gram tablet 1 g PO BID 08/10/23 04/25/24 04/23/24 History carvedilol 6.25 mg tablet 6.25 mg PO BID 11/19/23 04/25/24 04/23/24 History gabapentin 400 mg capsule 400 mg PO BID 12/29/23 04/25/24 04/23/24 History oxycodone 5 mg tablet 5 mg PO Q6H PRN pain 12/29/23 04/25/24 04/23/24 History potassium chloride 20 mEq 20 meq PO DAILY 12/29/23 04/25/24 04/23/24 History tablet,extended release sevelamer carbonate 800 mg tablet 1,600 mg PO TIDWM 12/29/23 04/25/24 04/23/24 History pantoprazole 40 mg tablet,delayed 40 mg PO DAILY@0630 04/25/24 04/25/24 04/24/24 History release Exam Height,Weight and Vital Signs: Height 5 ft 5 in Weight 58.7 kg Last Vital Signs Temp 98.4 F 04/25/24 07:34 Pulse 93 04/25/24 07:34 Resp 18 04/25/24 07:34 BP 121/58 L 04/25/24 07:34 Pulse Ox 99 04/25/24 07:34 O2 Del Method Room Air 04/25/24 07:34 Pertinent Lab Results Pertinent Lab Results: Laboratory Tests 04/24/24 04/24/24 04/25/24 18:04 18:05 00:25 WBC 11.6 H RBC 2.16 L D Hgb 6.8 L* D 6.6 L* Hct 19.7 L* D 18.8 L* MCV 91.2 MCH 31.5 MCHC 34.5 RDW 14.7 Plt Count 265 MPV 10.4 Immature Gran % (Auto) 0.5 H Neut % (Auto) 75.6 H Lymph % (Auto) 18.6 L Bryan % (Auto) 4.8 Eos % (Auto) 0.1 Baso % (Auto) 0.4 Lymph # (Auto) 2.2 Bryan # (Auto) 0.6 Eos # (Auto) 0.0 Baso # (Auto) 0.1 Abs Immat Gran (auto) 0.06 H Absolute Neuts (auto) 8.8 H Absolute Nucleated RBC 0.000 Nucleated RBC % (auto) 0.0 PT 11.6 D INR 1.0 Sodium 136 Potassium 4.5 Chloride 100 Carbon Dioxide 19 L Anion Gap 22 H BUN 131 H Creatinine 5.81 H* Estim Creat Clear Calc 10.1 Estimated GFR 8 Random Glucose 147 H Calcium 9.2 Total Bilirubin 0.3 Direct Bilirubin 0.1 AST 22 ALT 12 Alkaline Phosphatase 89 Total Protein 6.3 L Albumin 3.2 L Lipase 26 Blood Type O Positive Antibody Screen NEGATIVE Crossmatch See Detail 04/25/24 05:49 WBC 8.9 RBC 2.33 L Hgb 7.3 L Hct 21.1 L MCV 90.6 MCH 31.3 MCHC 34.6 RDW 14.8 Plt Count 175 D MPV 10.5 Immature Gran % (Auto) Neut % (Auto) Lymph % (Auto) Bryan % (Auto) Eos % (Auto) Baso % (Auto) Lymph # (Auto) Bryan # (Auto) Eos # (Auto) Baso # (Auto) Abs Immat Gran (auto) Absolute Neuts (auto) Absolute Nucleated RBC 0.000 Nucleated RBC % (auto) 0.0 PT INR Sodium 140 Potassium 3.6 Chloride 104 Carbon Dioxide 22 Anion Gap 18 BUN 146 H Creatinine 6.31 H* Estim Creat Clear Calc 9.4 Estimated GFR 7 Random Glucose 87 Calcium 8.9 Total Bilirubin Direct Bilirubin AST ALT Alkaline Phosphatase Total Protein Albumin Lipase Blood Type Antibody Screen Crossmatch Airway Mallampati Class: II TM Dist: >3cm Neck ROM: Full Loose/Missing/Broken Teeth: No Heart: RRR Lungs: CTA Assessment and Plan Assessment Anesthesia Assessment: Anesthesia Plan Discussed and Chart Reviewed Final Anesthetic Review Family History of Problems with Anesthesia: No History of Problems with Anesthesia: No NPO: Yes ASA Class: III Final Preanesthetic Review: No Changes in Pt Med Stat, Meds/Allgs Chart Reviewed, Consent Obtained/Reviewed and Anes Risks/Benef Reviewed Patient Risk: High Procedure Risk: Low Anesthetic Plan Anesthetic Plan: TIVA Disposition: Standard PACU
--- NOTE | 2024-04-25 11:13 | CONS_ITS ---
DATE OF SERVICE: 04/25/2024 REFERRING PROVIDER: Dr. Noreen Galvez. REASON FOR CONSULTATION: Upper GI bleeding. HISTORY OF PRESENT ILLNESS: The patient is a pleasant 53-year-old woman who was admitted to the hospital with complaints of coffee-ground hematemesis as well as coffee-ground colored stools. She has a history of peptic ulcer disease. She is status post gastric bypass surgery after initial gastric sleeve and last underwent upper endoscopy with Dr. Moody in December. This is reported to show ulcers in the pouch with multiple clips which had been applied for previous hemostasis therapy, gastritis. Jejunitis was also reported. She was treated with high-dose PPI and Carafate. She reports feeling well until the day before admission when she developed nausea and vomiting of nonbloody material, which subsequently became bloody. She reports significant stress at home with the of her son's father. She denies NSAID use. She denies alcohol use. She does smoke approximately 1 pack per day. In the emergency department, she was evaluated with laboratory studies showing a hematocrit of 19.7, down from 26.1 in December. She was given a unit of packed red blood cells with slight improvement to 18.8 and the second unit brought her hematocrit up to 21.1. Nursing reports no hematemesis or melena since admission and she denies any vomiting of blood or rectal bleeding since admission. PAST MEDICAL HISTORY: 1. End-stage renal disease, on hemodialysis. 2. Gastrointestinal bleeding with multiple gastric surgeries as above. 3. Peptic ulcer disease. 4. Depression. 5. Spondylosis/spinal stenosis and disc disease with back pain. 6. Hyperlipidemia. 7. Gastroesophageal reflux disease. 8. Hypertension. CURRENT MEDICATIONS: Her current medication list is reviewed in the chart. ALLERGIES: IBUPROFEN AND NIFEDIPINE. FAMILY HISTORY: This is reviewed with the patient and is noncontributory. SOCIAL HISTORY: As above. REVIEW OF SYSTEMS: SKIN: No pruritus. HEENT: Negative. CARDIOPULMONARY: She denies shortness of breath or chest pain. GASTROINTESTINAL: As above. GENITOURINARY: Negative. NEUROPSYCHIATRIC: Negative. PHYSICAL EXAMINATION: GENERAL: Reveals pleasant female, lying comfortably in bed. VITAL SIGNS: Reviewed in electronic medical record and are stable. SKIN: Anicteric. HEENT: Shows no scleral icterus. NECK: Without lymphadenopathy or thyromegaly. LUNGS: Clear. HEART: Shows a regular rate and rhythm. S1, S2. No murmur. ABDOMEN: Soft without focal masses or tenderness. Bowel sounds are present. No organomegaly is noted. EXTREMITIES: Without edema. LABORATORY DATA: Reviewed in detail. IMPRESSION: Gastrointestinal bleeding. Her presentation appears consistent with an upper GI bleed. It is unclear if she is actively bleeding at this time, but her lack of hematemesis and melena since admission suggests this is unlikely because of her significant drop in her hematocrit and her need for transfusion. I have recommended she undergo upper endoscopy. This will be arranged for today. I have discussed risks and benefits of the procedure. She understands these and agrees to proceed. Thanks for asking me to see her. I will follow her in the hospital with you. Dr. Moody will resume care of his patient on Friday. MD SHIRA Poole/PATRICIA / [id number] MTDD
[2024-04-25] MEDS: ondansetron HCL 4 MG/2 ML VIAL IVPUSH ×2 (11:35→20:40)
[2024-04-25] MEDS: Sevelamer Carbonate Tablet 800 MG TABLET 1600 MG PO ×2 (11:35→18:39)
[2024-04-25] MEDS: Midodrine HCl 5 MG TABLET PO ×3 (11:36→20:20)
[2024-04-25] MEDS: Multivitamin TABLET 1 TAB PO (11:36)
[2024-04-25] MEDS: Gabapentin 400 MG CAPSULE PO ×2 (11:36→20:20)
[2024-04-25] MEDS: Escitalopram Oxalate 10 MG TABLET PO (11:36)
[2024-04-25] MEDS: Thiamine HCL 100 MG TABLET PO (11:36)
--- NOTE | 2024-04-25 12:43 | PM.OP ---
Brief Operative Note Date of Service: 04/25/24 Pre-op diagnosis: gi bleed Post-op diagnosis: same Procedure: EGD Surgeon: Sam Urban MD Anesthesia: MAC Was an Fire Alarm Repairer used for this Procedure?: No Estimated blood loss (mL): 0 Pathology: none sent Condition: stable Disposition: PACU
--- NOTE | 2024-04-25 12:43 | PM.EVENT ---
Event Note Date of Service: 04/25/24 Event Note: EGD dictated no bleeding 2 small bowel ulcers, one with clips similar to last EGD from dec rec: follow hct cont ppi/sulcrafate may need redo g-j anastamosis as ulcers are likely ischemic Time Spent With Patient Time: Total time managing care of this patient today ____ minutes.
--- NOTE | 2024-04-25 13:53 | OP_ITS ---
DATE OF SERVICE: 04/25/2024 SURGEON: Sam Urban MD INDICATIONS: Upper GI bleeding. PREOPERATIVE DIAGNOSIS: POSTOPERATIVE DIAGNOSIS: PROCEDURE PERFORMED: Upper endoscopy. ESTIMATED BLOOD LOSS: COMPLICATIONS: ANESTHESIA: Monitored anesthesia care. ASSISTANTS: SPECIMENS: DESCRIPTION OF PROCEDURE: A history and physical was performed. The risks and benefits of the procedure were explained to the patient, and informed consent was obtained. The patient was placed in the left lateral decubitus position. The Olympus video gastroscope was introduced into the esophagus, stomach, and small intestine. Examination was performed. The scope was removed. She tolerated the procedure well and was returned to the recovery area in stable condition. FINDINGS: Esophagus: The esophagus was normal. There was no esophagitis. Stomach: The stomach showed beefy mucosa, but no evidence of active GI bleeding. There was a gastrojejunal anastomosis at approximately 50 cm from the incisors. This appeared widely patent with no blood. Two ulcers were identified on the jejunal aspect of the anastomosis. The first had 3 clips attached and had a clean base. The second measured approximately 5 x 8 mm and appeared quite superficial with no active bleeding. No therapy was performed. IMPRESSION: Small bowel ulcers. RECOMMENDATION: 1. Follow up as needed. 2. Begin clear liquids. 3. She may require revision of her anastomosis as these ulcers are likely ischemic and have not responded to conventional medical therapy. MD SHIRA Poole/PATRICIA / [id number]
[2024-04-25] MEDS: HYDROmorphone HCl 0.5 MG/0.5 ML SYRINGE 0.25 MG IVPUSH ×2 (15:20→20:37)
--- NOTE | 2024-04-25 16:06 | MHC.CM.PN ---
CM ATTEMPTED TO MEET WITH PT TWICE, PT OFF UNIT CM TO RETURN
[2024-04-25] MEDS: carvediloL 6.25 MG TABLET PO (20:20)
[2024-04-25] MEDS: Sucralfate 1 GM TABLET PO (20:20)
[2024-04-26 03:48] VITALS: BP 91/52; PULSE 71; RESP 20; TEMP 36.9; O2SAT 97
[2024-04-26] MEDS: Pantoprazole Sodium 40 MG/10 ML VIAL IVPUSH ×2 (05:37→16:21)
[2024-04-26 07:00] VITALS: BP 127/71; PULSE 71; RESP 16; TEMP 36.6; O2SAT 100
[2024-04-26 07:14] LABS: Hematocrit 21.9 % (37.0-47.0); Hemoglobin 7.7 g/dl (12.0-16.0); Mean Corpuscular HGB Conc 35.2 g/dl (31.0-35.0); Mean Corpuscular Hemoglobin 31.7 pg (27.0-33.0); Mean Corpuscular Volume 90.1 fL (80.0-98.0); Mean Platelet Volume 9.8 fL (9.4-12.3); Platelet Count 160 X10*3/uL (160-400); Red Blood Count 2.43 X10*6/uL (4.20-5.50); Red Cell Distribution Width 15.2 % (11.0-16.0); White Blood Count 6.9 X10*3/uL (4.8-10.8)
[2024-04-26 07:31] LABS: Anion Gap 14 (12-20); Calcium 8.6 mg/dL (8.4-10.2); Carbon Dioxide 23 mmol/L (22-29); Chloride 105 mmol/L (96-108); Creatinine Clr Calc Pharmacy 8.5; Estimated Glomerular Filt Rate 6; Glucose Random 83 mg/dL (60-115); Potassium 4.2 mmol/L (3.3-5.1); Sodium 138 mmol/L (135-145)
[2024-04-26 07:42] LABS: Blood Urea Nitrogen 142 mg/dL (9-16)
--- NOTE | 2024-04-26 08:46 | HO.PM.IMPN ---
Subjective Subjective Date of Service: 04/26/24 Review of Systems Follow up GI bleed, esrd feeling fine this morning HH stable Physical Exam Vital Signs: Vital Signs: Last Vital Signs Temp 97.8 F 04/26/24 07:00 Pulse 71 04/26/24 07:00 Resp 16 04/26/24 07:00 BP 127/71 04/26/24 07:00 Pulse Ox 100 04/26/24 07:00 O2 Del Method Room Air 04/26/24 07:00 BMI result Body Mass Index 21.5 Appearing in no acute distress lung sounds are clear to auscultation heart regular rate rhythm, clear S1, S2 positive bowel sounds, abdomen is soft, nontender neuro patient is alert x3, no focal deficits Objective Data Active Medications Acetaminophen (Acetaminophen 325 Mg Tablet) 975 mg PO Q6H PRN PRN Reason: Pain, Mild 1-3,fever,headache Calcium Carbonate (Calcium Carbonate 750 Mg Tab.Chew) 750 mg PO Q4H PRN PRN Reason: Heartburn Carvedilol (Carvedilol 6.25 Mg Tablet) 6.25 mg PO BID [facility]; Protocol Last Admin: 04/25/24 20:20 Dose: 6.25 mg Documented By: OCHOA Cyanocobalamin (Cyanocobalamin (Vitamin B-12) 1,000 Mcg Tablet) 1,000 mcg PO DAILY [facility] Ergocalciferol (Ergocalciferol (Vitamin D2) 1,250 Mcg Capsule) 1,250 mcg PO PLEITEZ@0900 [facility] Escitalopram Oxalate (Escitalopram Oxalate 10 Mg Tablet) 10 mg PO DAILY [facility] Last Admin: 04/25/24 11:36 Dose: 10 mg Documented By: BISI Fluticasone Propionate (Fluticasone Propionate Nasal 16 Gm [place]) 1 spray NOSTRIL-B DAILY PRN PRN Reason: Allergy Symptoms Gabapentin (Gabapentin 400 Mg Capsule) 400 mg PO BID [facility] Last Admin: 04/25/24 20:20 Dose: 400 mg Documented By: OCHOA Guaifenesin/Dextromethorphan (Guaifenesin Dm 100/10/5 Ml 5 Ml Syrup) 5 ml PO Q6H PRN PRN Reason: Cough Hydromorphone HCl (Hydromorphone Hcl 0.5 Mg/0.5 Ml Syringe) 0.25 mg IVPUSH Q4H PRN; Protocol PRN Reason: Pain, Severe (Pain Scale 7-10) Last Admin: 04/25/24 20:37 Dose: 0.25 mg Documented By: OCHOA Magnesium Hydroxide (Milk Of Magnesia 30 Ml Oral.Susp) 30 ml PO DAILY PRN PRN Reason: Constipation Melatonin (Melatonin 3 Mg Tablet) 6 mg PO BEDTIME PRN PRN Reason: Insomnia Midodrine (Midodrine Hcl 5 Mg Tablet) 5 mg PO TID [facility] Last Admin: 04/25/24 20:20 Dose: 5 mg Documented By: OCHOA Multivitamins/Vitamin C (Multivitamin Tablet) 1 tab PO DAILY [facility] Last Admin: 04/25/24 11:36 Dose: 1 tab Documented By: BISI Naloxone HCl (Naloxone Hcl 0.4 Mg/Ml Vial) 0.04 mg IVPUSH Q5M PRN PRN Reason: Excessive sedation or RR < 8 Nicotine (Nicotine 21 Mg Patch.Td24) 21 mg TRANSDERMA DAILY [facility] Last Admin: 04/25/24 09:04 Dose: 21 mg Documented By: BISI Ondansetron HCl (Ondansetron Hcl 4 Mg/2 Ml Vial) 4 mg IVPUSH Q8H PRN PRN Reason: Nausea and Vomiting Last Admin: 04/25/24 20:40 Dose: 4 mg Documented By: OCHOA Pantoprazole Sodium (Pantoprazole Sodium 40 Mg/10 Ml Vial) 40 mg IVPUSH BID@0630,1630 [facility] Last Admin: 04/26/24 05:37 Dose: 40 mg Documented By: OCHOA Potassium Chloride (Potassium Chloride Er 20 Meq Tab.Er.Prt) 20 meq PO DAILY [facility] Prochlorperazine Edisylate (Prochlorperazine Edisylate 10 Mg/2 Ml Vial) 5 mg IVPUSH Q6H PRN PRN Reason: Nausea and Vomiting Last Admin: 04/24/24 22:37 Dose: 5 mg Documented By: ODETTE Pyridoxine HCl (Pyridoxine Hcl (Vitamin B6) 50 Mg Tablet) 50 mg PO DAILY [facility] Last Admin: 04/25/24 14:55 Dose: Not Given Documented By: BISI Non-Admin Reason: off unit for procedure Sevelamer Carbonate (Sevelamer Carbonate Tablet 800 Mg Tablet) 1,600 mg PO TIDWM [facility] Last Admin: 04/25/24 18:39 Dose: 1,600 mg Documented By: BISI Sodium Chloride (0.9 % Sodium Chloride Flush 3 Ml Syringe) 3 ml IVFLUSH QSHIFT [facility] Last Admin: 04/25/24 20:22 Dose: 3 ml Documented By: OCHOA Sucralfate (Sucralfate 1 Gm Tablet) 1 gm PO BID [facility] Last Admin: 04/25/24 20:20 Dose: 1 gm Documented By: OCHOA Thiamine HCl (Thiamine Hcl 100 Mg Tablet) 100 mg PO DAILY [facility] Last Admin: 04/25/24 11:36 Dose: 100 mg Documented By: BISI Labs 04/26/24 06:35 04/26/24 06:35 Labs: Laboratory Results - last 24 hr 04/24/24 04/26/24 18:04 06:35 MCV 90.1 MCH 31.7 MCHC 35.2 H RDW 15.2 Plt Count 160 MPV 9.8 Absolute Nucleated RBC 0.000 Nucleated RBC % (auto) 0.0 Anion Gap 14 Estim Creat Clear Calc 8.5 Estimated GFR 6 Random Glucose 83 Calcium 8.6 Blood Type O Positive Antibody Screen NEGATIVE Crossmatch See Detail Assessment and Plan (1) ESRD on dialysis: Status: Acute Plan 53 yo female with a pmhx significant for 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 Upper GI bleed very 2 small bowel ulcer H+H 6.8/19.7 on admission s/p 3 U pRBC with stabilization of HH GI consult> EGD 04/25/2024 with small bowel ulcer, advanced diet. May require revision of anastomosis as ulcers are likely ischemic and have not responded to conventional medical therapy continue 40mg BID ESRD secondary to nephroscleorsis on HD MWF nephro to manage dialysis bicarb low, secondary to ESRD follow BMP Tobacco use nicotine patch smoking cessation discussed HLD continue home meds HTN hold meds for now, BP stable GERD pantoprazole as above Chronic back pain continue home meds Full code VTE prophylaxis: Pneumoboots Attending Dr. Watts Patient with upper GI bleed, requiring admission for further evaluation, Quality Stroke Does the patient have a stroke diagnosis?: No VTE Prior VTE?: No VTE Risk Level:: Medical - moderate - high VTE Device Contraindication: N/A - Device Ordered VTE Drug Contraindication: Treatment Not Indicated
--- NOTE | 2024-04-26 08:54 | MHC.CM.PN ---
CM met with Patient at bedside and addressed IMM with her (she preferred Indonesian over Danish); original was given to Patient and a copy has been placed on the chart. Patient lives alone in an apartment, uses a cane to assist with mobility, and goes to @ [facility] M/W/F. Home/resume said services is the goal and CM has initiated and will follow for dc planning. Patient's Sister/HCP/Kristyn will transport to home at dc and PCP is Dr. Rozina Foote.
[2024-04-26] MEDS: Sevelamer Carbonate Tablet 800 MG TABLET 1600 MG PO ×3 (09:35→17:52)
[2024-04-26] MEDS: Nicotine 21 MG PATCH.TD24 TRANSDERMA (09:36)
[2024-04-26] MEDS: HYDROmorphone HCl 0.5 MG/0.5 ML SYRINGE 0.25 MG IVPUSH ×4 (09:42→23:50)
[2024-04-26] MEDS: 0.9 % Sodium Chloride Flush 3 ML SYRINGE IVFLUSH ×3 (09:42→20:48)
[2024-04-26] MEDS: Midodrine HCl 5 MG TABLET PO ×3 (09:42→20:47)
[2024-04-26] MEDS: ondansetron HCL 4 MG/2 ML VIAL IVPUSH (11:56)
[2024-04-26 13:01] VITALS: BP 128/68; PULSE 73; RESP 16; TEMP 36.6; O2SAT 99
[2024-04-26] MEDS: Multivitamin TABLET 1 TAB PO (13:33)
[2024-04-26] MEDS: Pyridoxine HCl (Vitamin B6) 50 MG TABLET PO (13:33)
[2024-04-26] MEDS: carvediloL 6.25 MG TABLET PO ×2 (13:33→20:47)
[2024-04-26] MEDS: Thiamine HCL 100 MG TABLET PO (13:33)
[2024-04-26] MEDS: Escitalopram Oxalate 10 MG TABLET PO (13:33)
[2024-04-26] MEDS: Gabapentin 400 MG CAPSULE PO ×2 (13:34→20:47)
[2024-04-26] MEDS: Potassium Chloride ER 20 MEQ TAB.ER.PRT PO (13:34)
[2024-04-26] MEDS: Sucralfate 1 GM TABLET PO ×2 (13:34→20:47)
[2024-04-26] MEDS: Milk of Magnesia 30 ML ORAL.SUSP PO (13:34)
[2024-04-26] MEDS: Cyanocobalamin (Vitamin B-12) 1,000 MCG TABLET 1000 MCG PO (13:34)
--- NOTE | 2024-04-26 13:37 | PM.CNNEP ---
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 s/p Upper GI bleed very 2 small bowel ulcer H+H 6.8/19.7 on admission s/p 3 U pRBC with stabilization of HH GI consult> EGD 04/25/2024 with small bowel ulcer, advanced diet. May require revision of anastomosis as ulcers are likely ischemic and have not responded to conventional medical therapy continue 40mg BID Now currently on HGD and feeling better. Review of Systems Review of Systems Follow up GI bleed, esrd feeling fine this morning HH stable Constitutional: Denies body ache(s), Reports chills, Reports fatigue, Denies fever(s) and Denies headache(s) Eyes: Denies change in vision and Denies photophobia Denies headache(s), Denies nasal congestion, Denies nasal discharge, Denies neck pain and Denies sore throat Cardiovascular: Reports chest pain, Reports rapid heart rate, Denies leg edema, Reports lightheadedness and Reports dyspnea Respiratory: Reports dyspnea and Denies wheezing Gastrointestinal: Reports melena, Reports diarrhea, Reports nausea, Reports vomiting and Reports hematemesis Musculoskeletal: Denies neck pain Skin/Breast: Denies rash Denies confusion and Denies headache(s) Psychiatric: Denies confusion Endocrine: Reports fatigue Hematologic/Lymphatic: Denies easy bleeding and Denies easy bruising Allergic/Immunologic: Denies wheezing PMFSH Past Medical History Medical History ESRD on dialysis End stage chronic kidney disease Moderate major depression Physical exam Spondylosis without myelopathy or radiculopathy, lumbar region Spinal stenosis 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 Lumbar back pain with radiculopathy affecting left lower extremity Physical exam (~02/14/21) Peritoneal dialysis catheter in place Polyarthralgia Dyslipidemia Family history of ovarian cancer Abnormal mammogram of right breast Angina pectoris syndrome Chest pain Constipation Nephrosclerosis Renal interstitial fibrosis Obesity (BMI 30-39.9) Back pain GERD (gastroesophageal reflux disease) History of headache HTN (hypertension) Family History Family History Father Asthma Mother Asthma Hypertension Ovarian cancer Maternal Grandfather Myocardial infarction Paternal Grandmother Stroke Surgical History Surgical History S/P arteriovenous (AV) graft placement History of sleeve gastrectomy Fistula Hx of colonoscopy Hx of hysterectomy Hx of tubal ligation History of endometrial ablation Social History Social History Household Members: Family Housing: Apartment Do you presently have visiting nurse or other home services: No (Services to be started) Alcohol intake: current Alcohol intake frequency: holidays/special occasions only Alcohol type: beer Comment: Patient doesn't want bed alarm on Patient Tobacco Use Status: Current everyday Tobacco user Tobacco use type: Cigarette Cigarette Packs Per Day: 1 Cigarettes Per Day: 20.0 Years Smoked: 10+ Smoked in Last 30 Days: Yes e-Cigarette/Vaping Use: Currently Using Patient Interested in Nicotine Replacement: Yes Patient Given Instructions on How to Stop Smoking: No (Declined) Second Hand Smoke Exposure: No Use of substances other than those prescribed or required for medical reasons: No Currently Displaying Signs/Symptoms of Drug Intoxication Withdrawal: No Any prior treatment program specific to substance use: No Have you been hit, kicked, punched, or otherwise hurt by someone within the past year? If so, by whom?: No Do you feel safe in your current relationship?: Yes Is there a partner from a previous relationship who is making you feel unsafe now?: No Are you made to feel afraid or neglected: No Spiritual Healthcare Practices: Quaker Advance Directives: Yes Advance Directives Information Provided: No Advance Directives on File: Yes Advance Directives Date on File: 04/27/20 Do you have a plan to hurt others: No Plan Recently lost weight without trying: No Eating poorly because of decreased appetite: No Nutrition Risks: No Nutritional Risk Patient : No : No Poor oral hygiene: No service: No Current occupational status: employed Cognitive needs: No Hearing needs: No Vision needs: Yes (reading glasses) Meds Allergies Allergy/AdvReac Type Severity Reaction Status Date / Time ibuprofen Allergy Severe Unknown Verified 04/24/24 17:50 nifedipine Allergy Intermediate hives, leg Verified 04/24/24 17:50 edema Active Medications: Current Medications Acetaminophen (Acetaminophen 325 Mg Tablet) 975 mg PO Q6H PRN PRN Reason: Pain, Mild 1-3,fever,headache Calcium Carbonate (Calcium Carbonate 750 Mg Tab.Chew) 750 mg PO Q4H PRN PRN Reason: Heartburn Carvedilol (Carvedilol 6.25 Mg Tablet) 6.25 mg PO BID [facility]; Protocol Last Admin: 04/26/24 13:33 Dose: 6.25 mg Cyanocobalamin (Cyanocobalamin (Vitamin B-12) 1,000 Mcg Tablet) 1,000 mcg PO DAILY [facility] Last Admin: 04/26/24 13:34 Dose: 1,000 mcg Ergocalciferol (Ergocalciferol (Vitamin D2) 1,250 Mcg Capsule) 1,250 mcg PO PLEITEZ@0900 [facility] Escitalopram Oxalate (Escitalopram Oxalate 10 Mg Tablet) 10 mg PO DAILY [facility] Last Admin: 04/26/24 13:33 Dose: 10 mg Fluticasone Propionate (Fluticasone Propionate Nasal 16 Gm [place]) 1 spray NOSTRIL-B DAILY PRN PRN Reason: Allergy Symptoms Gabapentin (Gabapentin 400 Mg Capsule) 400 mg PO BID [facility] Last Admin: 04/26/24 13:34 Dose: 400 mg Guaifenesin/Dextromethorphan (Guaifenesin Dm 100/10/5 Ml 5 Ml Syrup) 5 ml PO Q6H PRN PRN Reason: Cough Hydromorphone HCl (Hydromorphone Hcl 0.5 Mg/0.5 Ml Syringe) 0.25 mg IVPUSH Q3H PRN; Protocol PRN Reason: Pain, Severe (Pain Scale 7-10) Last Admin: 04/26/24 12:32 Dose: 0.25 mg Magnesium Hydroxide (Milk Of Magnesia 30 Ml Oral.Susp) 30 ml PO DAILY PRN PRN Reason: Constipation Last Admin: 04/26/24 13:34 Dose: 30 ml Melatonin (Melatonin 3 Mg Tablet) 6 mg PO BEDTIME PRN PRN Reason: Insomnia Midodrine (Midodrine Hcl 5 Mg Tablet) 5 mg PO TID [facility] Last Admin: 04/26/24 09:42 Dose: 5 mg Multivitamins/Vitamin C (Multivitamin Tablet) 1 tab PO DAILY [facility] Last Admin: 04/26/24 13:33 Dose: 1 tab Naloxone HCl (Naloxone Hcl 0.4 Mg/Ml Vial) 0.04 mg IVPUSH Q5M PRN PRN Reason: Excessive sedation or RR < 8 Nicotine (Nicotine 21 Mg Patch.Td24) 21 mg TRANSDERMA DAILY [facility] Last Admin: 04/26/24 09:36 Dose: 21 mg Ondansetron HCl (Ondansetron Hcl 4 Mg/2 Ml Vial) 4 mg IVPUSH Q8H PRN PRN Reason: Nausea and Vomiting Last Admin: 04/26/24 11:56 Dose: 4 mg Pantoprazole Sodium (Pantoprazole Sodium 40 Mg/10 Ml Vial) 40 mg IVPUSH BID@0630,1630 [facility] Last Admin: 04/26/24 05:37 Dose: 40 mg Potassium Chloride (Potassium Chloride Er 20 Meq Tab.Er.Prt) 20 meq PO DAILY [facility] Last Admin: 04/26/24 13:34 Dose: 20 meq Prochlorperazine Edisylate (Prochlorperazine Edisylate 10 Mg/2 Ml Vial) 5 mg IVPUSH Q6H PRN PRN Reason: Nausea and Vomiting Last Admin: 04/24/24 22:37 Dose: 5 mg Pyridoxine HCl (Pyridoxine Hcl (Vitamin B6) 50 Mg Tablet) 50 mg PO DAILY [facility] Last Admin: 04/26/24 13:33 Dose: 50 mg Sevelamer Carbonate (Sevelamer Carbonate Tablet 800 Mg Tablet) 1,600 mg PO TIDWM [facility] Last Admin: 04/26/24 13:34 Dose: 1,600 mg Sodium Chloride (0.9 % Sodium Chloride Flush 3 Ml Syringe) [facility] Last Admin: 04/26/24 09:42 Dose: 3 ml Sucralfate (Sucralfate 1 Gm Tablet) 1 gm PO BID [facility] Last Admin: 04/26/24 13:34 Dose: 1 gm Thiamine HCl (Thiamine Hcl 100 Mg Tablet) 100 mg PO DAILY [facility] Last Admin: 04/26/24 13:33 Dose: 100 mg Home Medications ?Medication ?Instructions ?Recorded ?Confirmed ?Last Taken ?Type ferrous sulfate 325 mg (65 mg 325 mg PO BID PRN Iron Levels 05/11/20 04/25/24 04/23/24 History iron) tablet,delayed release cyanocobalamin (vitamin B-12) 1,000 mcg PO DAILY 10/17/20 04/25/24 04/23/24 History 1,000 mcg tablet pyridoxine (vitamin B6) 50 mg 50 mg PO DAILY 06/06/21 04/25/24 04/23/24 History tablet ergocalciferol (vitamin D2) 1,250 1,250 mcg PO PLEITEZ@0900 07/05/21 04/25/24 04/23/24 History mcg (50,000 unit) capsule (Vitamin D2) midodrine 5 mg tablet 5 mg PO TID 03/25/23 04/25/24 04/23/24 History acetaminophen 500 mg capsule 1,000 mg PO Q8H PRN Pain 08/10/23 04/25/24 04/23/24 History (Mapap (acetaminophen)) fluticasone propionate 50 1 spray intranasal DAILY PRN 08/10/23 04/25/24 04/23/24 History mcg/actuation nasal Allergy Symptoms spray,suspension [id number] 45 mg-folic 1 cap PO DAILY 08/10/23 04/25/24 04/23/24 History acid 800 mcg-vit K 120 mcg capsule (Bariatric Multivitamins) parenteral amino acid 15% no.5 15 0.5 ea IV MOWEFR@0900 08/10/23 04/25/24 04/23/24 History % combination no.5 intravenous solution (Clinisol SF) sucralfate 1 gram tablet 1 g PO BID 08/10/23 04/25/24 04/23/24 History carvedilol 6.25 mg tablet 6.25 mg PO BID 11/19/23 04/25/24 04/23/24 History gabapentin 400 mg capsule 400 mg PO BID 12/29/23 04/25/24 04/23/24 History oxycodone 5 mg tablet 5 mg PO Q6H PRN pain 12/29/23 04/25/24 04/23/24 History potassium chloride 20 mEq 20 meq PO DAILY 12/29/23 04/25/24 04/23/24 History tablet,extended release sevelamer carbonate 800 mg tablet 1,600 mg PO TIDWM 12/29/23 04/25/24 04/23/24 History pantoprazole 40 mg tablet,delayed 40 mg PO DAILY@0630 04/25/24 04/25/24 04/24/24 History release Physical Exam Vital Signs: Last Vital Signs Temp 97.9 F 04/26/24 13:01 Pulse 73 04/26/24 13:01 Resp 16 04/26/24 13:01 BP 128/68 04/26/24 13:01 Pulse Ox 99 04/26/24 13:01 O2 Del Method Room Air 04/26/24 13:01 BMI result Body Mass Index 21.5 Const Other: EXAM: Gen: Alert, appears ill and pain Head: Atraumatic Eyes: Anicteric, pale ENT: slightly dry, pale oral mucosa Neck: Supple. Respiratory: Breathing comfortably, No distress.Clear to auscultation bilaterally, symmetric chest expansion, No wheeze, rales, ronchi. Cardiovascular: Regular rate and rhythm. No murmurs or rub. Well perfused periphery, warm extremities. No edema. Abdominal: Soft, no objective distension. No palpable masses or obvious organomegaly. moderate tenderness in the midepigastrium, no guarding, no rebound tenderness or other peritoneal findings. : No flank tenderness. Neuro: Alert. Gross movement of all extremities intact. Vital signs: See flowsheet General: No confusion Orientation/consciousness: No confusion Eyes Direct Ophthalmoscopy: No photophobia Neuro General: No confusion Results Lab Results 04/26/24 06:35 04/26/24 06:35 Lab results: Chemistry 04/24/24 04/25/24 04/26/24 18:05 05:49 06:35 Sodium 136 140 138 Potassium 4.5 3.6 4.2 Carbon Dioxide 19 L 22 23 BUN 131 H 146 H 142 H Creatinine 5.81 H* 6.31 H* 6.93 H* Calcium 9.2 8.9 8.6 Hematology 04/24/24 04/25/24 04/25/24 18:05 00:25 05:49 WBC 11.6 H 8.9 Hgb 6.8 L* D 6.6 L* 7.3 L Plt Count 265 175 D 04/26/24 06:35 WBC 6.9 Hgb 7.7 L Plt Count 160 Assessment and Plan (1) ESRD on dialysis: Status: Acute Plan ESRD: cont HD mwf UGIB: track Hb and xfuse as needed; if active bleed then would give DDAVPx 1 H/O malnutrition and h/o Biartatric surg REC: cont HD 3x/wk; track HB, epo as ordered Will follow w team Procedures Date of Service Date of Service: 04/26/24
[2024-04-26 16:00] VITALS: BP 99/53; PULSE 77; RESP 18; TEMP 36.9; O2SAT 97
[2024-04-26 19:39] VITALS: BP 101/52; PULSE 76; RESP 17; TEMP 37.1; O2SAT 99
[2024-04-26 23:51] VITALS: BP 94/50; PULSE 71; RESP 16; TEMP 36.1; O2SAT 98
[2024-04-27] VITALS (9 sets, daily range): BP systolic 82–137; BP diastolic 44–73; PULSE 66–78; RESP 14–18; TEMP 36.5–37.2; O2SAT 95–100
[2024-04-27] MEDS: Albumin Human 25 % 100 ML IV ×2 (01:10→02:11)
[2024-04-27] MEDS: Pantoprazole Sodium 40 MG/10 ML VIAL IVPUSH (05:05)
--- NOTE | 2024-04-27 05:38 | PC.NURSE ---
Patient at 00:40 had a blood pressure of 87/54. Patient reported feeling asymptomatic and resting in bed. Blood pressure rechecked manually 88/44. Provider notifed. Ordered 2 bags of albumin. Albumin administered. At 04:00. BP automated was 82/46. Patient reports feeling asymptomatic. BP rechecked for 104/54 manually. Provider notified no further orders placed.
--- NOTE | 2024-04-27 06:17 | PM.EVENT ---
Event Note Date of Service: 04/27/24 Event Note: Patient hypotensive overnight after IV Dilaudid push. Was asymptomatic throughout. No sepsis. Blood pressure improved with colloid resuscitation. 30 cc/kg not given as patient with underlying ESRD Time Spent With Patient Time: Total time managing care of this patient today ____ minutes.
[2024-04-27 07:38] LABS: Hematocrit 21.3 % (37.0-47.0); Hemoglobin 7.4 g/dl (12.0-16.0); Mean Corpuscular HGB Conc 34.7 g/dl (31.0-35.0); Mean Corpuscular Hemoglobin 31.6 pg (27.0-33.0); Mean Platelet Volume 9.9 fL (9.4-12.3); Platelet Count 171 X10*3/uL (160-400); Red Blood Count 2.34 X10*6/uL (4.20-5.50); White Blood Count 4.7 X10*3/uL (4.8-10.8)
[2024-04-27 07:57] LABS: Anion Gap 10 (12-20); Blood Urea Nitrogen 38 mg/dL (9-16); Calcium 8.9 mg/dL (8.4-10.2); Carbon Dioxide 31 mmol/L (22-29); Chloride 102 mmol/L (96-108); Creatinine Clr Calc Pharmacy 14.9; Estimated Glomerular Filt Rate 12; Glucose Random 78 mg/dL (60-115); Potassium 4.1 mmol/L (3.3-5.1); Sodium 139 mmol/L (135-145)
[2024-04-27] MEDS: Pyridoxine HCl (Vitamin B6) 50 MG TABLET PO (08:26)
[2024-04-27] MEDS: Cyanocobalamin (Vitamin B-12) 1,000 MCG TABLET 1000 MCG PO (08:26)
[2024-04-27] MEDS: Midodrine HCl 5 MG TABLET PO ×2 (08:26→15:19)
[2024-04-27] MEDS: Potassium Chloride ER 20 MEQ TAB.ER.PRT PO (08:26)
[2024-04-27] MEDS: Sucralfate 1 GM TABLET PO (08:27)
[2024-04-27] MEDS: Escitalopram Oxalate 10 MG TABLET PO (08:27)
[2024-04-27] MEDS: Sevelamer Carbonate Tablet 800 MG TABLET 1600 MG PO ×2 (08:27→12:41)
[2024-04-27] MEDS: Multivitamin TABLET 1 TAB PO (08:27)
[2024-04-27] MEDS: Gabapentin 400 MG CAPSULE PO (08:27)
[2024-04-27] MEDS: Thiamine HCL 100 MG TABLET PO (08:27)
[2024-04-27] MEDS: Nicotine 21 MG PATCH.TD24 TRANSDERMA (08:30)
[2024-04-27] MEDS: 0.9 % Sodium Chloride Flush 3 ML SYRINGE IVFLUSH (08:36)
--- NOTE | 2024-04-27 10:20 | HO.POSTANES ---
Post Anesthesia Evaluation Post Anesthesia Evaluation Date of Service: 04/27/24 Vital Signs: Vital Signs Temp Pulse Resp BP Pulse Ox O2 Del Method 04/27/24 07:13 97.8 F 69 14 90/48 L 96 Room Air 04/27/24 04:55 104/54 L 04/27/24 04:00 98.9 F 66 16 82/46 L 98 Room Air 04/27/24 00:54 88/44 L 04/27/24 00:40 98.6 F 70 16 87/49 L 95 Room Air 04/26/24 23:51 97.0 F 71 16 94/50 L 98 Room Air Anesthesia: Monitored Mental Status: Awake Pain Control: Satisfactory Nausea/Vomiting: None Hydration: Adequate Anesthesia-Related Issues: No Anes. Related Issues
--- NOTE | 2024-04-27 10:52 | PM.DS ---
DS: Providers Provider Date of Service: 04/27/24 Date of admission: 04/24/24 20:30 Date of discharge: 04/27/24 Primary care physician: Rozina Lang MD Consults: 04/24/24 20:28 Consult to Gastroenterology Routine Consulting Provider: Tom Moody Reason for consultation: GI bleed, followed by you Has provider been notified: No 04/26/24 08:43 Consult to Nephrology Routine Consulting Provider: [facility] Reason for consultation: ESRD on dialysis Has provider been notified: No DS: Diagnosis Discharge Diagnosis (1) ESRD on dialysis: Status: Acute DS: Summary Hospital Course Hospital Course: History and physical as per admitting provider. 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 She also described epigastric pain radiating up the chest. pale, lightheaded and dizzy. feels the saem as previous episodes with GI bleeds. no recent sick contacts. no fever but has had chills for the past few days. states that she has not moved much since dialysis since she was feeling unwell. 53-year-old woman treated for upper GI bleed secondary to to small bowel ulcers found with EGD. Patient's initial H&H was 6.8/19.7. Received a total 4 units of packed red blood cells with stabilization in H&H. Patient has been on PPI and should continue at home. According to GI patient may require revision of anastomosis as ulcers are likely ischemic and have not responded to conventional medical therapy. Patient is aware that she should follow up with her specialists. Patient has a history of end-stage renal disease on dialysis, last dialysis 04/26/2024. Next Tobacco use Treated with nicotine patch smoking cessation discussed HLD continue home meds HTN Continue home medications GERD pantoprazole as above Chronic back pain continue home meds Time Attestation Discharge Coordination Time (in mins): 45 Quality: Safe Use of Opioids Does Pt have an Active Cancer Diagnosis on the Problem List?: No Quality: Stroke Does the patient have a stroke diagnosis?: No Physical Exam Vital Signs: Vital Signs: Last Vital Signs Temp 97.8 F 04/27/24 07:13 Pulse 69 04/27/24 07:13 Resp 14 04/27/24 07:13 BP 90/48 L 04/27/24 07:13 Pulse Ox 96 04/27/24 07:13 O2 Del Method Room Air 04/27/24 07:13 BMI result Body Mass Index 21.5 Appearing in no acute distress head is normocephalic atraumatic eyes pupils are PERRLA sclera is anicteric mouth throat mucous membranes are intact and moist neck is supple no lymphadenopathy, no JVD noted lung sounds are clear to auscultation heart regular rate rhythm, clear S1, S2 positive bowel sounds, abdomen is soft, nontender neuro patient is alert x3, no focal deficits DS: Data Data Completed and Pending Completed studies during hospitalization [Text1]: Procedures Control Bleeding in Gastrointestinal Tract, Via Natural or Artificial Opening Endoscopic (11/19/23) Excision of Stomach, Pylorus, Via Natural or Artificial Opening Endoscopic, Diagnostic (08/10/23) Inspection of Upper Intestinal Tract, Via Natural or Artificial Opening Endoscopic (12/29/23) Introduction of Mineral-based Topical Hemostatic Agent into Upper GI, Via Natural or Artificial Opening Endoscopic, [employer] 6 (11/19/23) Performance of Urinary Filtration, Intermittent, Less than 6 Hours Per Day (12/29/23) Transfusion of Nonautologous Red Blood Cells into Peripheral Vein, Percutaneous Approach (12/29/23) Labs on day of discharge: Laboratory Results - last 24 hr 04/24/24 04/25/24 04/27/24 18:04 00:25 06:44 WBC RBC Hgb Hct MCV MCH MCHC RDW Plt Count MPV Absolute Nucleated RBC Nucleated RBC % (auto) Smear Path Review Sodium 139 Potassium 4.1 Chloride 102 Carbon Dioxide 31 H Anion Gap 10 L BUN 38 H Creatinine 3.98 H Estim Creat Clear Calc 14.9 Estimated GFR 12 Random Glucose 78 Calcium 8.9 Blood Type O Positive Antibody Screen NEGATIVE Crossmatch See Detail 04/27/24 06:45 WBC 4.7 L RBC 2.34 L Hgb 7.4 L Hct 21.3 L MCV 91.0 MCH 31.6 MCHC 34.7 RDW 15.0 Plt Count 171 MPV 9.9 Absolute Nucleated RBC 0.000 Nucleated RBC % (auto) 0.0 Smear Path Review Sodium Potassium Chloride Carbon Dioxide Anion Gap BUN Creatinine Estim Creat Clear Calc Estimated GFR Random Glucose Calcium Blood Type Antibody Screen Crossmatch Discharge Plan Discharge Anticipated Discharge Date/Time: 04/27/24 10:48 Patient Disposition: Home, Self-Care Discharge Diagnosis: Upper GI bleed secondary to small bowel ulcer End-stage renal disease on dialysis Referrals: Rozina Nicole MD [Primary Care Provider] - 1 Week Discharge Medications: Continued thiamine HCl (vitamin B1) 100 mg tablet 100 mg PO DAILY 90 Days Qty: 90 0RF vitamin A 2,400 mcg capsule 2,400 mcg PO DAILY 90 Days Qty: 90 1RF citalopram 20 mg tablet 20 mg PO DAILY 90 Days Qty: 90 1RF cyanocobalamin (vitamin B-12) 1,000 mcg Tablet 1,000 mcg PO DAILY oxycodone 5 mg tablet 5 mg PO Q6H PRN (Reason: pain) gabapentin 400 mg Capsule 400 mg PO BID sevelamer carbonate 800 mg tablet 1,600 mg PO TIDWM potassium chloride 20 mEq tablet extended release 20 meq PO DAILY pantoprazole 40 mg tablet,delayed release (DR/EC) 40 mg PO DAILY@0630 sucralfate 1 gram tablet 1 g PO BID acetaminophen [Mapap (acetaminophen)] 500 mg capsule 1,000 mg PO Q8H PRN (Reason: Pain) Clinisol SF 15 % 15 % parenteral solution 0.5 ea IV MOWEFR@0900 Rx Instructions: DIALYSIS MEDICATION Bariatric Multivitamins 45 mg iron- 800 mcg-120 mcg Capsule 1 cap PO DAILY fluticasone propionate 50 mcg/actuation spray,suspension 1 spray intranasal DAILY PRN (Reason: Allergy Symptoms) Rx Instructions: administer into each nostril carvedilol 6.25 mg tablet 6.25 mg PO BID pyridoxine (vitamin B6) 50 mg tablet 50 mg PO DAILY melatonin 10 mg capsule 10 mg PO BEDTIME PRN (Reason: sleep) 90 Days Qty: 90 1RF ferrous sulfate 325 mg (65 mg iron) tablet,delayed release (DR/EC) 325 mg PO BID PRN (Reason: Iron Levels) ergocalciferol (vitamin D2) [Vitamin D2] 1,250 mcg (50,000 unit) capsule 1,250 mcg PO PLEITEZ@0900 midodrine 5 mg tablet 5 mg PO TID Discharge Orders: Discharge Order (Routine); Ordered 04/27/24 Ordered By: Davida Hendricks Diet: Advance to usual diet Activity on Discharge: As tolerated Stand Alone Forms: Patient Portal Discharge page Print Language: Tamazight Care Plan Goals: Follow up with surgical appliance fitter outpatient, May require revision of anastomosis as ulcers are likely ischemic and have not responded to conventional medical therapy end-stage renal disease on dialysis Friday, Friday and Friday Health Concerns: Upper GI bleed secondary to small bowel ulcer End-stage renal disease on dialysis Plan of Treatment: Follow up with primary care provider as needed Take all medications as prescribed Assessment: See discharge summary
[2024-04-27] MEDS: Acetaminophen 325 MG TABLET 975 MG PO (11:20)
--- NOTE | 2024-04-27 11:46 | PC.NURSE ---
repeated VS after 15 min for bood transfusion documented with a typo of HR. reentered HR of 68 and redocumeneted.
--- NOTE | 2024-04-27 12:03 | MHC.CM.PN ---
Pt is medically cleared for discharge home self-care, pts family will transport her home today.
[2024-04-27] MEDS: ondansetron HCL 4 MG/2 ML VIAL IVPUSH (13:14)
--- NOTE | 2024-04-27 15:17 | P.CDIM_ITS ---
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 Please review below and update the documentation accordingly. Clinical Indicators: Ed 04/24/24 - Acute on chronic anemia likely secondary to upper GI bleed probably gastric ulcer once a gain. Transfused 3 units PRBC H/H - 6.6/18.8 L BP 91/52 Hematemesis, melena, lightheaded, dizzy, confused. ESRD Based on the above, could you clarify which of the following is the most likely type of anemia you ar e evaluating, treating, and/or monitoring? Acute blood loss anemia possible, suspected, probable, cannot rule out etc. Anemia of chronic disease indicate if neoplastic disease, CKD, or other Chronic iron deficiency anemia due to blood loss Other specified Other (explain) Clinically unable to determine (explain) Thank you, Kathleen Crain, CCS, CDIS Use of terms such as suspected, likely, concern for, or probable (associated with a specific diagnosi s that is being evaluated, monitored, or treated as if it exists) are acceptable and can be coded in the inpatient se tting, when documented at the time of discharge. Please use your independent medical judgment in providing your response. THIS QUERY IS PART OF THE PERMANENT MEDICAL RECORD
--- NOTE | 2024-05-04 12:17 | W.MHC.F2F ---
Service Date Service Date: 05/04/24 Encounter Date of encounter: 05/04/24 Reasons for Services Signs and symptoms assessed: GI bleed Reason for intermediate: CV/CP assess and/or care Reason for physical therapy: home safety and mobility Homebound: Leaving the home is medically contraindicated at this time without the asist of a device and/or another person due th the listed conditions above and below. Reason homebound: unsteady gait / fall risk Certification: Based on the above findings, I certify that this patient is confined to the home and needs intermittent intermediate care, physical therapy and/or speech therapy, or continues to need occupational therapy. The patient is under my care, and I have initiated the establishment of the plan of care. The patient will be followed by a physician who will periodically review the plan of care. Time Spent With Patient Time: Total time managing care of this patient today ____ minutes.
== END 2024-04-27 15:58 | disposition home health service (06) | DRG 377 ==
LOC: HO.ED 18:48 → HO.EDOVER 20:55 → HO.IMC 22:45
PROVIDERS: Internal Medicine Gastroenterology; Admitting Provider Physician Assistant; Emergency Provider Emergency Medicine; PCP Internal Medicine; Visit Provider Nurse Practitioner Acute Care
PROC: 0DJ08ZZ Inspection of Upper Intestinal Tract, Via Natural or Artificial Opening Endoscopic (ICD-10-PCS; CPT 43235; principal; 2024-04-25 11:30)
DX: K28.4 Chronic or unspecified gastrojejunal ulcer with hemorrhage (principal); N18.6 End stage renal disease; I12.0 Hypertensive chronic kidney disease with stage 5 chronic kidney disease or end stage renal disease; D62 Acute posthemorrhagic anemia; F17.210 Nicotine dependence, cigarettes, uncomplicated; I95.9 Hypotension, unspecified; Z71.6 Tobacco abuse counseling; E78.5 Hyperlipidemia, unspecified; K21.9 Gastro-esophageal reflux disease without esophagitis; M54.9 Dorsalgia, unspecified; G89.29 Other chronic pain; Z99.2 Dependence on renal dialysis; Z98.84 Bariatric surgery status; Z79.899 Other long term (current) drug therapy
CPT/HCPCS: 36415; 80048; 80076; 83690; 85014; 85018; 85025; 85027; 85610; 86850; 86900; 86901; 86923; 90999; 93005; 99285; J0737; J0885; J1171; J2003; J2270; J2405; J2470; J2704; J3010; P9016; P9047

== ENCOUNTER → 2024-04-24 18:11 | Outpatient (BNV) | payer MEDICARE, MEDICAID, SELFPAY | PROVIDERS: Admitting Provider Physician Assistant; Emergency Provider Emergency Medicine; PCP Internal Medicine; Visit Provider Internal Medicine | DX: R00.0 Tachycardia, unspecified (principal) | CPT/HCPCS: 93010 ==

== ENCOUNTER → 2024-04-24 20:30 | Outpatient (BNV) | payer MEDICARE, MEDICAID, SELFPAY | PROVIDERS: Admitting Provider Physician Assistant; Emergency Provider Emergency Medicine; PCP Internal Medicine; Visit Provider Nurse Practitioner Acute Care | DX: N18.6 End stage renal disease (principal); Z99.2 Dependence on renal dialysis | CPT/HCPCS: 99223; 99232; 99239; 99499; G0180 ==

== ENCOUNTER 2024-05-03 19:43 | Emergency (ER) | payer MEDICARE, MEDICAID, SELFPAY ==
--- NOTE | ~2024-05-03 | XR_ITS ---
CLINICAL HISTORY: Vomiting episodes, reports of hematemesis 1 view chest x-ray Comparison: CT/SR - CT CHEST WO IV CON - 11/20/23 15:49 EDT Findings: No consolidation or effusion. Heart size is normal. No acute fracture. IMPRESSION: 1. No dense consolidation. This document has been electronically signed by: Tawana Mccoy MD on 05/03/2024 22:04:50
[2024-05-03 19:45] VITALS: BP 134/117; PULSE 80; O2SAT 98
[2024-05-03 19:52] VITALS: BP 217/113; PULSE 82; PULSE 83; RESP 20; RESP 22; TEMP 36.7; O2SAT 96; O2SAT 97; BMI 22.4
--- NOTE | 2024-05-03 19:58 | PC.NURSE ---
Pt a&ox4, no signs of distress. Pt reports 11/19 abd pain n/v since this morning. Pt reports she was here for a GI bleed a few days ago and she smoked and drank yesterday. Pt also has not been to dialysis since friday Plan of care ongoing.
--- NOTE | 2024-05-03 20:44 | ED.ABDPAIN ---
HPI - Abdominal Pain General Chief Complaint: Abdominal Pain Stated Complaint: gi bleed, dialysis pt has not gone since friday Time Seen by Provider: 05/03/24 20:44 Source: patient Limitations: no limitations History of Present Illness ED Provider: Leonardo Christiansen DO HPI narrative: 53-year-old female with past medical history of ESRD on dialysis Friday, Friday and Friday (follows Dr. Cool) who missed her session today secondary to upper abdominal pain and vomiting coffee-ground emesis, history of recurrent GI bleeds due to gastric pouch ulcers followed by Dr. Moody, hyperlipidemia, hypertension, GERD, chronic back pain and recent hospitalization with discharge 6 days ago on 04/27/2024 due to GI bleed (small bowel ulcers) which was discovered on EGD, receiving a total of 4 units of PRBCs and discussion for possible revision of anastomosis as ulcers are likely ischemic and have not responded to conventional medical therapy presents to the ED due to the persistent epigastric abdominal pain and multiple episodes of hematemesis described as coffee-ground emesis with some bright red blood. Patient denies hematochezia or melena. She denies fevers, cough, sore throat, chest pain, difficulty breathing but does report chills. She states she consumed alcohol last night which is atypical for her. She denies any recent NSAID use and reports that her ESRD secondary to chronic NSAIDs in the past. Related Data Home Medications ?Medication ?Instructions ?Recorded ?Confirmed ferrous sulfate 325 mg (65 mg 325 mg PO BID PRN Iron Levels 05/11/20 04/25/24 iron) tablet,delayed release cyanocobalamin (vitamin B-12) 1,000 mcg PO DAILY 10/17/20 04/25/24 1,000 mcg tablet midodrine 5 mg tablet 5 mg PO TID 03/25/23 04/25/24 acetaminophen 500 mg capsule 1,000 mg PO Q8H PRN Pain 08/10/23 04/25/24 (Mapap (acetaminophen)) fluticasone propionate 50 1 spray intranasal DAILY PRN 08/10/23 04/25/24 mcg/actuation nasal Allergy Symptoms spray,suspension [id number] 45 mg-folic 1 cap PO DAILY 08/10/23 04/25/24 acid 800 mcg-vit K 120 mcg capsule (Bariatric Multivitamins) parenteral amino acid 15% no.5 15 0.5 ea IV MOWEFR@0900 08/10/23 04/25/24 % combination no.5 intravenous solution (Clinisol SF) sucralfate 1 gram tablet 1 g PO BID 08/10/23 04/25/24 oxycodone 5 mg tablet 5 mg PO Q6H PRN pain 12/29/23 04/25/24 potassium chloride 20 mEq 20 meq PO DAILY 12/29/23 04/25/24 tablet,extended release pantoprazole 40 mg tablet,delayed 40 mg PO DAILY@0630 04/25/24 04/25/24 release Previous Rx's ?Medication ?Instructions ?Recorded melatonin 10 mg capsule 10 mg PO BEDTIME PRN sleep 90 days 06/26/23 #90 caps thiamine HCl (vitamin B1) 100 mg 100 mg PO DAILY 90 days #90 tabs 09/27/23 tablet vitamin A 2,400 mcg capsule 2,400 mcg PO DAILY 90 days #90 caps 02/05/24 citalopram 20 mg tablet 20 mg PO DAILY 90 days #90 tabs 03/18/24 ondansetron HCl 4 mg tablet 4 mg PO Q8H PRN nausea and 04/27/24 vomiting #15 tabs oxycodone 5 mg tablet 5 mg PO Q8H PRN pain #15 tabs 04/27/24 carvedilol 6.25 mg tablet 6.25 mg PO BID 90 days #180 tabs 04/28/24 ergocalciferol (vitamin D2) 1,250 1,250 mcg PO QWEEK 30 days #5 caps 04/28/24 mcg (50,000 unit) capsule (Vitamin D2) gabapentin 400 mg capsule 400 mg PO BID 90 days #180 caps 04/28/24 pyridoxine (vitamin B6) 50 mg 50 mg PO DAILY 90 days #90 tabs 04/28/24 tablet sevelamer carbonate 800 mg tablet 1,600 mg (2 x 800 mg) PO TIDWM 30 04/28/24 days #180 tabs Allergies Allergy/AdvReac Type Severity Reaction Status Date / Time ibuprofen Allergy Severe Unknown Verified 05/03/24 19:55 nifedipine Allergy Intermediate hives, leg Verified 05/03/24 19:55 edema Review of Systems Review of Systems Yes all other systems are reviewed and are negative [facility] Past Medical History Medical History (Updated 05/03/24 @ 22:54 by Leonardo Christiansen DO) ESRD on dialysis End stage chronic kidney disease Moderate major depression Physical exam Spondylosis without myelopathy or radiculopathy, lumbar region Spinal stenosis 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 Lumbar back pain with radiculopathy affecting left lower extremity Physical exam (~02/14/21) Peritoneal dialysis catheter in place Polyarthralgia Dyslipidemia Family history of ovarian cancer Abnormal mammogram of right breast Angina pectoris syndrome Chest pain Constipation Nephrosclerosis Renal interstitial fibrosis Obesity (BMI 30-39.9) Back pain GERD (gastroesophageal reflux disease) History of headache HTN (hypertension) Surgical History S/P arteriovenous (AV) graft placement History of sleeve gastrectomy Fistula Hx of colonoscopy Hx of hysterectomy Hx of tubal ligation History of endometrial ablation Family History Family History Father Asthma Mother Asthma Hypertension Ovarian cancer Maternal Grandfather Myocardial infarction Paternal Grandmother Stroke Social History Social History Household Members: Family Housing: Apartment Do you presently have visiting nurse or other home services: No (Services to be started) Alcohol intake: current Alcohol intake frequency: holidays/special occasions only Alcohol type: beer Comment: Patient doesn't want bed alarm on Patient Tobacco Use Status: Current everyday Tobacco user Tobacco use type: Cigarette Cigarette Packs Per Day: 1 Cigarettes Per Day: 20.0 Years Smoked: 10+ Smoked in Last 30 Days: Yes e-Cigarette/Vaping Use: Currently Using Second Hand Smoke Exposure: No Use of substances other than those prescribed or required for medical reasons: No Advance Directives: Yes Advance Directives on File: Yes Advance Directives Date on File: 04/27/20 service: No Current occupational status: employed Cognitive needs: No Hearing needs: No Vision needs: Yes (reading glasses) Physical Exam ED Vital Signs: Vital Signs - 24 hr 05/03/24 19:52 05/03/24 19:52 05/03/24 21:36 Temperature 98.1 F 98.1 F 98.5 F Pulse Rate 83 82 80 Respiratory Rate 22 H 20 12 Blood Pressure 217/113 H 217/113 H 132/61 Pulse Oximetry 97 96 94 Oxygen Delivery Method Room Air Room Air Room Air BMI result Body Mass Index 22.4 Constitutional: ?Alert, oriented, speaking in full sentences, appears uncomfortable, clutching an emesis bag HEENT: ?Normocephalic, atraumatic. ?Mildly dry mucous membranes Eyes: ?PERRL, EOMI Neck: ?Supple, nontender Chest: ?No chest wall tenderness Respiratory: ?Lungs clear to auscultation, no increased work of breathing Cardio: ?Regular rate and rhythm, no murmur, 2+ radial pulses symmetrically with palpable thrill of the left upper arm fistula GI: ?Soft, nondistended, focal epigastric tenderness to palpation without rebound tenderness Back: ?Normal range of motion, nontender Skin: ?No rash, no lesions Neuro: ?Alert and oriented to person, place and time, moves all 4 extremities, no focal deficits Extremities: ?No swelling or tenderness, full range of motion Psych: ?Calm, alert and cooperative, appropriate behavior Medical Decision Making Medical Decision Making MDM Narrative: Dialysis patient presenting for reports of vomiting dark blood. She has had no subsequent vomiting episodes here and responded very well to Zofran and hydromorphone. She initially had mild epigastric tenderness that resolved on re-evaluation. She had no peritoneal signs and I do not suspect active bloody emesis. Her labs are reassuring with improvement in her hemoglobin and lower BUN today. She also missed her omeprazole earlier today so I administered 80 mg of IV pantoprazole. The patient has hyperkalemia without ECG changes. She does not have any signs of fluid overload nor is she encephalopathic and she does not meet any criteria for emergent dialysis today. I did speak to covering cement based materials pump tender and it is determined that the patient should likely be able to undergo dialysis tomorrow. I discussed with the patient the importance to call them 1st thing in the morning to arrange for this and if it can not be arranged for her to return due to her hyperkalemia today. I also provided other return precautions with the patient agrees with plan. Admission/Observation Consideration of admission/observation: Escalation of care including admission/observation considered Lab Data MDM Lab Attestation statement: I reviewed the patient's lab results. Leukocytosis of 16.6 which is neutrophilic predominant without bands, likely in the setting of vomiting. Improved hemoglobin from 6 days ago from 7.4-11.8 today. Mild respiratory alkalosis likely secondary to intermittent hyperventilation. Hyperkalemia to 5.6 without ECG changes. Baseline elevated creatinine over 6 with improvement in elevated BUN. Unremarkable lipase and LFTs. 05/03/24 21:16 05/03/24 21:16 Labs: Lab Results 05/03/24 05/03/24 Range/Units 21:16 21:23 WBC 16.6 H (4.8-10.8) X10*3/uL RBC 3.79 L D (4.20-5.50) X10*6/uL Hgb 11.8 L D (12.0-16.0) g/dl Hct 34.6 L D (37.0-47.0) % MCV 91.3 (80.0-98.0) fL MCH 31.1 (27.0-33.0) pg MCHC 34.1 (31.0-35.0) g/dl RDW 15.1 (11.0-16.0) % Plt Count 340 D (160-400) X10*3/uL MPV 9.0 L (9.4-12.3) fL Immature Gran % (Auto) 0.5 H (0.0-0.4) % Neut % (Auto) 92.7 H (45-73) % Lymph % (Auto) 5.2 L (20-40) % [place] % (Auto) 1.4 L (2-11) % Eos % (Auto) 0.0 (0-4) % Baso % (Auto) 0.2 (0-2) % Lymph # (Auto) 0.9 L (1.2-4.9) X10*3/uL [place] # (Auto) 0.2 (0.1-1.2) X10*3/uL Eos # (Auto) 0.0 (0.0-0.4) X10*3/uL Baso # (Auto) 0.0 (0.0-0.2) X10*3/uL Abs Immat Gran (auto) 0.08 H (0.00-0.03) X10*3/uL Absolute Neuts (auto) 15.4 H (2.0-8.3) x10*3/uL Absolute Nucleated RBC 0.000 (0.0-0.012) X10*3/uL Nucleated RBC % (auto) 0.0 (0.0-0.2) /100WBC Smear Tech's Comments VERIFIED VBG pH 7.50 H (7.32-7.43) VBG pCO2 29 mmHg VBG pO2 91 mmHg VBG HCO3 23 (22-26) mmol/L VBG O2 Saturation 99.0 % VBG Base Excess 1.6 mmol/L Sodium 139 (135-145) mmol/L Potassium 5.6 H D (3.3-5.1) mmol/L Chloride 106 (96-108) mmol/L Carbon Dioxide 22 (22-29) mmol/L Anion Gap 17 (12-20) BUN 51 H (9-16) mg/dL Creatinine 6.39 H* (0.5-1.4) mg/dL Estim Creat Clear Calc 9.3 Estimated GFR 7 Random Glucose 154 H (60-115) mg/dL Calcium 9.6 D (8.4-10.2) mg/dL Total Bilirubin 0.6 (0.0-1.0) mg/dL Direct Bilirubin 0.2 (0.0-0.5) mg/dL AST 15 (5-31) U/L ALT 11 (0-31) U/L Alkaline Phosphatase 149 H (39-117) U/L Troponin I High Sens 9.1 D (<3.5-17.0) ng/L Total Protein 6.7 (6.5-8.0) g/dL Albumin 4.0 (3.5-5.0) g/dL Lipase 20 (8-78) U/L Independent Interpretation I performed an independent interpretation of an: EKG and Plain X-Ray Interpretation: Normal sinus rhythm at 76 beats per minute, borderline QTC prolongation, no diagnostic ST or T-wave abnormalities, normal axis, compared to prior dated 04/24/2024 there are no significant changes with the exception of improvement in voltage criteria for LVH. Chest x-ray per my independent interpretation shows no acute cardiopulmonary abnormalities. There is no evidence of free air. Medications Administered Discontinued Medications Generic Name Dose Route Start Last Admin Trade Name Freq PRN Reason Stop Dose Admin Hydromorphone HCl 1 mg 05/03/24 20:45 05/03/24 21:11 Hydromorphone Hcl 1 Mg/Ml Syringe IVPUSH 05/03/24 20:46 1 mg ONCE ONE Administration Protocol Acetaminophen 1,000 mg in 100 mls @ 400 mls/hr 05/03/24 20:45 05/03/24 21:32 Ofirmev IV 05/03/24 20:59 Infused ONCE ONE Infusion Ondansetron HCl 4 mg 05/03/24 20:45 05/03/24 21:09 Ondansetron Hcl 4 Mg/2 Ml Vial IVPUSH 05/03/24 20:46 4 mg ONCE ONE Administration Pantoprazole Sodium 80 mg 05/03/24 21:04 05/03/24 21:16 Pantoprazole Sodium 40 Mg/10 Ml Vial IVPUSH 05/03/24 21:05 80 mg ONCE ONE Administration Discharge Plan Discharge Clinical Impression: Nausea & vomiting Qualifiers: Vomiting type: unspecified Qualified Code(s): R11.2 - Nausea with vomiting, unspecified Patient Disposition: Home, Self-Care Instructions: Acute Nausea and Vomiting (ED) Additional Instructions: You were evaluated for coffee-ground vomiting and abdominal pain. We observed you and you had no recurrent episodes and significant improvement with Dilaudid and Zofran. Continue the Zofran as needed for severe nausea and vomiting home. Importantly, although your workup today was unremarkable, you do have a potassium of 5.6 and as we discussed, it is very important that you call your nephrology doctor 1st thing tomorrow morning to arrange for dialysis tomorrow as opposed to Friday. If you can not achieve dialysis tomorrow, or if you have any recurrent vomiting blood or stooling blood or any other changes, please return to the emergency department. Prescriptions: No Action thiamine HCl (vitamin B1) 100 mg tablet 100 mg PO DAILY 90 Days Qty: 90 0RF vitamin A 2,400 mcg capsule 2,400 mcg PO DAILY 90 Days Qty: 90 1RF citalopram 20 mg tablet 20 mg PO DAILY 90 Days Qty: 90 1RF carvedilol 6.25 mg tablet 6.25 mg PO BID 90 Days Qty: 180 1RF gabapentin 400 mg capsule 400 mg PO BID 90 Days Qty: 180 1RF pyridoxine (vitamin B6) 50 mg tablet 50 mg PO DAILY 90 Days Qty: 90 1RF sevelamer carbonate 800 mg tablet 1,600 mg PO TIDWM 30 Days Qty: 180 6RF ergocalciferol (vitamin D2) [Vitamin D2] 1,250 mcg (50,000 unit) capsule 1,250 mcg PO QWEEK 30 Days Qty: 5 6RF cyanocobalamin (vitamin B-12) 1,000 mcg Tablet 1,000 mcg PO DAILY oxycodone 5 mg tablet 5 mg PO Q6H PRN (Reason: pain) potassium chloride 20 mEq tablet extended release 20 meq PO DAILY pantoprazole 40 mg tablet,delayed release (DR/EC) 40 mg PO DAILY@0630 ondansetron HCl 4 mg tablet 4 mg PO Q8H PRN (Reason: nausea and vomiting) Qty: 15 0RF oxycodone 5 mg tablet 5 mg PO Q8H PRN (Reason: pain) Qty: 15 0RF Rx Instructions: Partial Fill upon patient request. sucralfate 1 gram tablet 1 g PO BID acetaminophen [Mapap (acetaminophen)] 500 mg capsule 1,000 mg PO Q8H PRN (Reason: Pain) Clinisol SF 15 % 15 % parenteral solution 0.5 ea IV MOWEFR@0900 Rx Instructions: DIALYSIS MEDICATION Bariatric Multivitamins 45 mg iron- 800 mcg-120 mcg Capsule 1 cap PO DAILY fluticasone propionate 50 mcg/actuation spray,suspension 1 spray intranasal DAILY PRN (Reason: Allergy Symptoms) Rx Instructions: administer into each nostril melatonin 10 mg capsule 10 mg PO BEDTIME PRN (Reason: sleep) 90 Days Qty: 90 1RF ferrous sulfate 325 mg (65 mg iron) tablet,delayed release (DR/EC) 325 mg PO BID PRN (Reason: Iron Levels) midodrine 5 mg tablet 5 mg PO TID Print Language: Lao
--- NOTE | 2024-05-03 20:48 | ECG_ITS ---
Test Reason : abdominal pain Blood Pressure : */* mmHG Vent. Rate : 76 BPM Atrial Rate : 76 BPM P-R Int : 118 ms QRS Dur : 84 ms QT Int : 416 ms P-R-T Axes : 30 44 48 degrees QTcB Int : 468 ms Normal sinus rhythm Normal ECG When compared with ECG of 24-Apr-2024 18:12, Vent. rate has decreased by 45 bpm Nonspecific T wave abnormality no longer evident in Inferior leads Nonspecific T wave abnormality no longer evident in Lateral leads Referred By: Leonardo Christiansen Electronically Signed By: CHARLY ODELL MD
[2024-05-03] MEDS: ondansetron HCL 4 MG/2 ML VIAL IVPUSH (21:09)
[2024-05-03] MEDS: HYDROmorphone HCl 1 MG/ML SYRINGE IVPUSH (21:11)
[2024-05-03] MEDS: Acetaminophen 1,000 MG/100 ML PIGGYBACK 400 MG IV (21:12)
[2024-05-03] MEDS: Pantoprazole Sodium 40 MG/10 ML VIAL 80 MG IVPUSH (21:16)
--- NOTE | 2024-05-03 21:19 | PC.NURSE ---
Pt medicated per [facility] Plan of care ongoing.
[2024-05-03 21:24] LABS: Basophils Percent Auto 0.2 % (0-2); Hematocrit 34.6 % (37.0-47.0); Hemoglobin 11.8 g/dl (12.0-16.0); Imm Gran Abs Auto 0.08 X10*3/uL (0.00-0.03); Imm Gran Pct Auto 0.5 % (0.0-0.4); Lymphocytes Absolute Auto 0.9 X10*3/uL (1.2-4.9); Lymphocytes Percent Auto 5.2 % (20-40); MANUAL DIFF FLAG SCAN; Mean Corpuscular HGB Conc 34.1 g/dl (31.0-35.0); Mean Corpuscular Hemoglobin 31.1 pg (27.0-33.0); Mean Corpuscular Volume 91.3 fL (80.0-98.0); Monocytes Absolute Auto 0.2 X10*3/uL (0.1-1.2); Monocytes Percent Auto 1.4 % (2-11); Neutrophils Absolute Auto 15.4 x10*3/uL (2.0-8.3); Neutrophils Percent Auto 92.7 % (45-73); Platelet Count 340 X10*3/uL (160-400); Red Blood Count 3.79 X10*6/uL (4.20-5.50); Red Cell Distribution Width 15.1 % (11.0-16.0); SCAN SMEAR FLAG 1; White Blood Count 16.6 X10*3/uL (4.8-10.8)
[2024-05-03 21:25] LABS: Venous Blood Gas Refer to POC result
[2024-05-03 21:26] LABS: VBG Base Excess 1.6 mmol/L; VBG HCO3 23 mmol/L (22-26); VBG pCO2 29 mmHg; VBG pO2 91 mmHg
[2024-05-03 21:36] VITALS: BP 132/61; PULSE 80; RESP 12; TEMP 36.9; O2SAT 94
[2024-05-03 21:41] LABS: SLIDE REVIEW VERIFIED
[2024-05-03 21:43] LABS: Alanine Aminotransferase 11 U/L (0-31); Alkaline Phosphatase 149 U/L (39-117); Anion Gap 17 (12-20); Aspartate Amino Transferase 15 U/L (5-31); Bilirubin Direct 0.2 mg/dL (0.0-0.5); Bilirubin Total 0.6 mg/dL (0.0-1.0); Blood Urea Nitrogen 51 mg/dL (9-16); Calcium 9.6 mg/dL (8.4-10.2); Carbon Dioxide 22 mmol/L (22-29); Chloride 106 mmol/L (96-108); Creatinine Clr Calc Pharmacy 9.3; Estimated Glomerular Filt Rate 7; Glucose Random 154 mg/dL (60-115); Lipase 20 U/L (8-78); Potassium 5.6 mmol/L (3.3-5.1); Sodium 139 mmol/L (135-145); Total Protein 6.7 g/dL (6.5-8.0)
[2024-05-03 21:47] LABS: Troponin-I High Sensitivity 9.1 ng/L (<3.5-17.0)
[2024-05-03 23:05] VITALS: BP 132/61; PULSE 80; RESP 12; TEMP 36.9; O2SAT 94
[2024-05-03 23:10] LABS: Influenza A PCR NEGATIVE (Negative); Influenza B PCR NEGATIVE (Negative); Resp Syncy Virus RNA Qual PCR NEGATIVE (Negative); SARS COV2 PCR INHOUSE NEGATIVE (Negative)
== END 2024-05-03 23:08 | disposition home or self-care (01) ==
PROVIDERS: Emergency Provider Emergency Medicine; PCP Internal Medicine
DX: R11.2 Nausea with vomiting, unspecified (principal); K92.2 Gastrointestinal hemorrhage, unspecified; E87.5 Hyperkalemia; F17.210 Nicotine dependence, cigarettes, uncomplicated; Z79.899 Other long term (current) drug therapy; Z03.818 Encounter for observation for suspected exposure to other biological agents ruled out
CPT/HCPCS: 0241U; 36415; 71045; 80048; 80076; 82803; 83690; 84484; 85025; 93005; 96365; 96375; 99284; 99285; J0131; J1171; J2405; J2470

== ENCOUNTER → 2024-05-03 20:48 | Outpatient (BNV) | payer MEDICARE, MEDICAID, SELFPAY | PROVIDERS: Emergency Provider Emergency Medicine; PCP Internal Medicine; Visit Provider Internal Medicine Cardiovascular Disease | DX: R10.9 Unspecified abdominal pain (principal) | CPT/HCPCS: 93010 ==

== ENCOUNTER → 2024-05-03 20:49 | Outpatient (BNV) | payer MEDICARE, MEDICAID, SELFPAY | PROVIDERS: Emergency Provider Emergency Medicine; PCP Internal Medicine; Visit Provider Radiology Diagnostic Radiology | DX: R11.2 Nausea with vomiting, unspecified (principal) | CPT/HCPCS: 71045 ==

== ENCOUNTER 2024-05-11 10:48 | Emergency (ER) | payer MEDICARE, MEDICAID, SELFPAY ==
[2024-05-11] VITALS (9 sets, daily range): BP systolic 131–203; BP diastolic 73–110; PULSE 75–113; RESP 14–20; TEMP 36.7–37; O2SAT 96–99; BMI 22.0
--- NOTE | ~2024-05-11 | US_ITS ---
EXAMINATION: US ABDOMEN LIMITED HISTORY: RUQ/epigastric pain, vomiting TECHNIQUE: Real-time grayscale ultrasound imaging of the right upper quadrant was performed and images were reviewed. COMPARISON: Correlation is made with a CT of the abdomen without contrast dated 12/29/2023. FINDINGS: Liver: The right lobe of the liver measures 14.4 cm in size. The liver demonstrates normal homogeneous echotexture. No focal mass or intrahepatic biliary ductal dilatation is identified. There is normal hepatopedal flow in the portal vein. Gallbladder and biliary tree: The gallbladder is unremarkable, without evidence of calculi, wall thickening, or pericholecystic fluid. There is no sonographic Reis sign. The common bile duct is normal in caliber measuring 3 mm. Right Kidney: The right kidney measures 7.3 cm in length. The right kidney is echogenic with loss of cortical medullary differentiation. There is a 10 x 16 x 8 mm cyst at the upper pole. Additional smaller cysts are noted. Pancreas: The pancreatic head, neck, and body are unremarkable. The pancreatic tail is obscured by bowel gas. Abdominal aorta and inferior vena cava: The visualized portions of the abdominal aorta and inferior vena cava are normal in caliber. There is no free fluid in the right upper quadrant. US/US abdomen limited IMPRESSION: Small echogenic kidney consistent with chronic medical renal disease. No evidence of cholelithiasis. Electronically signed by: Brandan Wei MD 05/11/2024 03:00 PM EDT
--- NOTE | ~2024-05-11 | CT_ITS ---
CLINICAL HISTORY: epigastric pain, vomiting CT abdomen and pelvis without contrast Comparison: CT/SR - CT ABDOMEN PELVIS WO IV CON - 12/29/23 09:06 EST Findings: Bibasilar scarring versus atelectasis is present. Gallbladder is within normal limits. 2 mm nonobstructing left renal calculus is present. Moderate bilateral renal atrophy. Solid organs are otherwise within normal limits. No bowel obstruction, pneumoperitoneum, or pneumatosis. Gastric liza are present. Small amount of free pelvic fluid. Normal appendix. No acute fracture. IMPRESSION: 1. Nonobstructing left renal calculus. 2. Free pelvic fluid, which could indicate underlying infection, inflammation, or neoplasm. This document has been electronically signed by: Ernestina Murillo MD on 05/11/2024 17:22:02
--- NOTE | 2024-05-11 11:14 | ECG_ITS ---
Test Reason : abd pain Blood Pressure : */* mmHG Vent. Rate : 81 BPM Atrial Rate : 81 BPM P-R Int : 124 ms QRS Dur : 84 ms QT Int : 398 ms P-R-T Axes : 45 28 43 degrees QTcB Int : 462 ms Normal sinus rhythm Possible Left atrial enlargement Borderline ECG When compared with ECG of 03-May-2024 21:26, No significant change was found Referred By: Generic ED Physician Electronically Signed By: MINO ROWE
--- NOTE | 2024-05-11 11:50 | ED_ITS ---
HPI - Abdominal Pain General Chief Complaint: Abdominal Pain Stated Complaint: CP,N/V,BP 171/91 PER EMS Time Seen by Provider: 05/11/24 11:35 Source: patient and EMS Mode of arrival: EMS Limitations: no limitations History of Present Illness ED Provider: ANGELO PEACE PA-C HPI narrative: 53-year-old female with pmhx significant for ESRD on HD M/W/F, HTN, GERD, hx gastric sleeve in 2012 s/p revision in June 2023, hx of bleeding marginal ulcer at the anastomosis site presents to the ED today via EMS for evaluation of acute nausea and vomiting which began on waking this morning. Reports vomiting bile. Denies hematemesis. Associated epigastric/ RUQ pain. Admits to eating spaghetti with marinara sauce last night. No one else in her household ate the same meal. Reports normal nonbloody BM this morning. She was last dialyzed yesterday. She has not missed any dialysis appointments. Denies recent NSAID use. denies fever, chills, chest pain, palpitations, sob, flank pain, urinary sx, constipation, diarrhea. En route - EMS administered nitro x2, aspirin, and zofran. Related Data Home Medications ?Medication ?Instructions ?Recorded ?Confirmed ferrous sulfate 325 mg (65 mg 325 mg PO BID PRN Iron Levels 05/11/20 04/25/24 iron) tablet,delayed release cyanocobalamin (vitamin B-12) 1,000 mcg PO DAILY 10/17/20 04/25/24 1,000 mcg tablet midodrine 5 mg tablet 5 mg PO TID 03/25/23 04/25/24 acetaminophen 500 mg capsule 1,000 mg PO Q8H PRN Pain 08/10/23 04/25/24 (Mapap (acetaminophen)) fluticasone propionate 50 1 spray intranasal DAILY PRN 08/10/23 04/25/24 mcg/actuation nasal Allergy Symptoms spray,suspension [id number]-[id number] 45 mg-folic 1 cap PO DAILY 08/10/23 04/25/24 acid 800 mcg-vit K 120 mcg capsule (Bariatric Multivitamins) parenteral amino acid 15% no.5 15 0.5 ea IV MOWEFR@0900 08/10/23 04/25/24 % combination no.5 intravenous solution (Clinisol SF) sucralfate 1 gram tablet 1 g PO BID 08/10/23 04/25/24 oxycodone 5 mg tablet 5 mg PO Q6H PRN pain 12/29/23 04/25/24 potassium chloride 20 mEq 20 meq PO DAILY 12/29/23 04/25/24 tablet,extended release pantoprazole 40 mg tablet,delayed 40 mg PO DAILY@0630 04/25/24 04/25/24 release Previous Rx's ?Medication ?Instructions ?Recorded melatonin 10 mg capsule 10 mg PO BEDTIME PRN sleep 90 days 06/26/23 #90 caps thiamine HCl (vitamin B1) 100 mg 100 mg PO DAILY 90 days #90 tabs 09/27/23 tablet vitamin A 2,400 mcg capsule 2,400 mcg PO DAILY 90 days #90 caps 02/05/24 citalopram 20 mg tablet 20 mg PO DAILY 90 days #90 tabs 03/18/24 ondansetron HCl 4 mg tablet 4 mg PO Q8H PRN nausea and 04/27/24 vomiting #15 tabs oxycodone 5 mg tablet 5 mg PO Q8H PRN pain #15 tabs 04/27/24 carvedilol 6.25 mg tablet 6.25 mg PO BID 90 days #180 tabs 04/28/24 ergocalciferol (vitamin D2) 1,250 1,250 mcg PO QWEEK 30 days #5 caps 04/28/24 mcg (50,000 unit) capsule (Vitamin D2) gabapentin 400 mg capsule 400 mg PO BID 90 days #180 caps 04/28/24 pyridoxine (vitamin B6) 50 mg 50 mg PO DAILY 90 days #90 tabs 04/28/24 tablet sevelamer carbonate 800 mg tablet 1,600 mg (2 x 800 mg) PO TIDWM 30 04/28/24 days #180 tabs ondansetron 4 mg disintegrating 4 mg PO Q8H PRN nausea and 05/11/24 tablet vomiting #10 tabs Allergies Allergy/AdvReac Type Severity Reaction Status Date / Time ibuprofen Allergy Severe Unknown Verified 05/11/24 11:09 nifedipine Allergy Intermediate hives, leg Verified 05/11/24 11:09 edema Review of Systems Review of Systems Yes all other systems are reviewed and are negative PMFSH Past Medical History Attestation statement: The following information was validated with the patient. 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 Lumbar back pain with radiculopathy affecting left lower extremity Physical exam (~02/14/21) Peritoneal dialysis catheter in place Polyarthralgia Dyslipidemia Family history of ovarian cancer Abnormal mammogram of right breast Angina pectoris syndrome Chest pain Constipation Nephrosclerosis Renal interstitial fibrosis Obesity (BMI 30-39.9) Back pain GERD (gastroesophageal reflux disease) History of headache HTN (hypertension) Surgical History S/P arteriovenous (AV) graft placement History of sleeve gastrectomy Fistula Hx of colonoscopy Hx of hysterectomy Hx of tubal ligation History of endometrial ablation Family History Family History Father Asthma Mother Asthma Hypertension Ovarian cancer Maternal Grandfather Myocardial infarction Paternal Grandmother Stroke Social History Social History Household Members: Family Housing: Apartment Do you presently have visiting nurse or other home services: No (Services to be started) Alcohol intake: current Alcohol intake frequency: holidays/special occasions only Alcohol type: beer Comment: Patient doesn't want bed alarm on Patient Tobacco Use Status: Current everyday Tobacco user Tobacco use type: Cigarette Cigarette Packs Per Day: 1 Cigarettes Per Day: 20.0 Years Smoked: 10+ Smoked in Last 30 Days: No e-Cigarette/Vaping Use: Currently Using Second Hand Smoke Exposure: No Use of substances other than those prescribed or required for medical reasons: No Advance Directives: Yes Advance Directives on File: Yes Advance Directives Date on File: 04/27/20 Do you have a plan to hurt others: No Plan service: No Current occupational status: employed Cognitive needs: No Hearing needs: No Vision needs: Yes (reading glasses) Physical Exam ED Vital Signs: Vital Signs - 24 hr 05/11/24 11:07 05/11/24 13:15 05/11/24 14:16 Temperature 98.1 F 98.3 F Pulse Rate 75 89 84 Respiratory Rate 18 15 Blood Pressure 173/94 H 203/106 H 203/103 H Pulse Oximetry 96 99 Oxygen Delivery Method Room Air Room Air 05/11/24 16:08 05/11/24 18:16 05/11/24 19:26 Temperature 98.5 F 98.6 F Pulse Rate 99 95 113 H Respiratory Rate 14 20 17 Blood Pressure 175/83 H 183/110 H 136/73 Pulse Oximetry 96 96 Oxygen Delivery Method Room Air Room Air 05/11/24 20:39 Temperature 98.2 F Pulse Rate 107 H Respiratory Rate 20 Blood Pressure 161/89 H Pulse Oximetry 97 Oxygen Delivery Method Room Air BMI result Body Mass Index 22.0 hypertensive General: uncomfortable appearing. emesis bag at bedside, no active vomiting Skin: warm, dry, intact. No rashes or lesions. Head: Normocephalic, atraumatic. EENT: Hearing is intact b/l. Conjunctiva clear. Sclera is anicteric. PERRLA. EOM intact. Moist mucous membranes.? Neck: Supple without LAD Cardiac: Chest wall symmetric. RRR Lungs: Normal respiratory effort without accessory muscle use. CTA bilaterally. Abdomen: soft, ND, ttp of entire upper abdomen, no rebound or guarding. active bs x4. no cvat. Back: No midline spinous or paraspinal tenderness. No step off deformity. Ext: Upper and lower extremities atraumatic, without tenderness, deformity, swelling or erythema. Neuro: AOx3. Normal speech. Ambulating with steady gait. Psych: Appropriate mood and affect. Responds appropriately to questions. Course Course Course Narrative: 180 -- CBC with slight leukocytosis to 11.9 with left shift. Normocytic anemia, chronic and stable when compared to priors. H&H above transfusion threshold. Chemistry without acute electrolyte abnormality requiring intervention. Renal function appears to be around patient's baseline ESRD. Normal liver function. Alk phos at baseline. initial troponin 3.6. given onset of symptoms to ED presentation, delta trop ordered for ACS rule out > abdominal ultrasound showing small echogenic kidneys consistent with chronic medical renal disease. No evidence of cholelithiasis or acute cholecystitis. Normal pancreas. CT abdomen/pelvis shows nonobstructing left renal calculi. No evidence of hydronephrosis. No bowel obstruction, pneumoperitoneum or pneumatosis. there is a small amount of free pelvic fluid. normal appendix. I discussed findings with my attending Dr. Aguirre. no concerning intra-abdominal findings. plan to treat nausea/ pain. > patients exam is not concerning for SBP > patient noted to be hypertensive to 173/94 on arrival. Blood pressure further increased to 203/106. we trialed nitro paste and 5 mg IV hydralazine with some improvement to 175/83. on re-evaluation of patient, BP elevated again to 210/90s. discussed with my attending. goal at this time is BP management. will order a second dose of IV hydralazine with re-evaluation. she denies HOOD, vision changes, dizziness. exam is nonfocal. CT head not warranted at this time. > patient is stable at the end of my shift. sign out given to Parker GARCIA pending repeat trop, BP control, PO trial, and disposition. Reevaluation(s) Reevaluation #1: Luisa Ridley NP 05/11/2024 21:00 - received patient and signed out pending repeat troponin, blood pressure control p.o. trial and re-evaluation. Delta troponin is flat. She has no associated chest pain. Denies abdominal pain at this time. Tolerating oral intake without causing abdominal pain nor vomiting. Blood pressure has remained controlled after receiving hydralazine, currently 161/89. She is requesting to be discharged home at this time which I feel is reasonable. We discussed strict return precautions, outpatient follow-up with doctors. All questions answered. Medical Decision Making Medical Decision Making MDM Narrative: 53-year-old female with pmhx significant for ESRD on HD M/W/F, HTN, GERD, hx gastric sleeve in 2012 s/p revision in June 2023, hx of bleeding marginal ulcer at the anastomosis site presents to the ED today via EMS for evaluation of acute nausea and vomiting which began on waking this morning. hypertensive to 173/94. vitals otherwise wnl. abdomen soft, ND, ttp of entire upper abdomen, no rebound or guarding. active bs x4. no cvat. Differential diagnosis includes biliary colic, renal colic, nephrolithiasis, gastroenteritis, gastritis, PUD. Abdominal exam without peritoneal signs. Unlikely SBP. No evidence of acute abdomen at this time. overall well appearing. Moderate suspicion for acute hepatobiliary disease (including acute cholecystitis). Less likely to represent acute pancreatitis, perforated ulcer/ GI bleed, acute infectious processes (pneumonia, hepatitis, pyelonephritis), atypical appendicitis, vascular catastrophe, bowel obstruction or viscus perforation. Presentation not consistent with other acute, emergent causes of abdominal pain at this time. Plan: labs, pain control, RUQ US, serial reassessment Differential Diagnosis Differential Diagnoses: The differential diagnosis associated with the presentation includes as above. Admission/Observation Consideration of admission/observation: Escalation of care including admission/observation considered Lab Data MDM Lab Attestation statement: I reviewed the patient's lab results. as above 05/11/24 11:55 05/11/24 11:55 Labs: Lab Results 05/11/24 05/11/24 Range/Units 11:55 18:15 WBC 11.9 H (4.8-10.8) X10*3/uL RBC 3.75 L (4.20-5.50) X10*6/uL Hgb 11.4 L (12.0-16.0) g/dl Hct 35.7 L (37.0-47.0) % MCV 95.2 (80.0-98.0) fL MCH 30.4 (27.0-33.0) pg MCHC 31.9 (31.0-35.0) g/dl RDW 14.0 (11.0-16.0) % Plt Count 260 (160-400) X10*3/uL MPV 9.7 (9.4-12.3) fL Immature Gran % (Auto) 0.4 (0.0-0.4) % Neut % (Auto) 80.7 H (45-73) % Lymph % (Auto) 10.3 L (20-40) % Shackelford % (Auto) 7.3 (2-11) % Eos % (Auto) 0.8 (0-4) % Baso % (Auto) 0.5 (0-2) % Lymph # (Auto) 1.2 (1.2-4.9) X10*3/uL [place]ord # (Auto) 0.9 (0.1-1.2) X10*3/uL Eos # (Auto) 0.1 (0.0-0.4) X10*3/uL Baso # (Auto) 0.1 (0.0-0.2) X10*3/uL Abs Immat Gran (auto) 0.05 H (0.00-0.03) X10*3/uL Absolute Neuts (auto) 9.6 H (2.0-8.3) x10*3/uL Absolute Nucleated RBC 0.000 (0.0-0.012) X10*3/uL Nucleated RBC % (auto) 0.0 (0.0-0.2) /100WBC Sodium 139 (135-145) mmol/L Potassium 4.9 (3.3-5.1) mmol/L Chloride 100 (96-108) mmol/L Carbon Dioxide 27 (22-29) mmol/L Anion Gap 17 (12-20) BUN 30 H (9-16) mg/dL Creatinine 4.51 H* (0.5-1.4) mg/dL Estim Creat Clear Calc 13.1 Estimated GFR 10 Random Glucose 103 (60-115) mg/dL Calcium 9.4 (8.4-10.2) mg/dL Magnesium 2.3 (1.6-2.6) mg/dL Total Bilirubin 0.4 (0.0-1.0) mg/dL Direct Bilirubin 0.1 (0.0-0.5) mg/dL AST 14 (5-31) U/L ALT 7 (0-31) U/L Alkaline Phosphatase 145 H (39-117) U/L Troponin I High Sens 3.6 D 6.9 D (<3.5-17.0) ng/L Total Protein 6.3 L (6.5-8.0) g/dL Albumin 3.6 (3.5-5.0) g/dL Lipase 62 (8-78) U/L Independent Interpretation I performed an independent interpretation of an: Ultrasound and CT Scan Radiology Impression Discussion of test interpretation with radiology: I have reviewed the radiologist's reading. External Record Review External record reviewed: Inpatient record, Office record, Outpatient record, Prior outpatient labs, Prior outpatient radiology, Primary care record and Outside ED record Prescription Management I considered prescription management with: Pain Medication Chronic Conditions Patient?s care impacted by: Hypertension Social Determinants Patient?s care significantly limited by Social Determinants of Health including: Other Social Determinant of Health Medications Administered Discontinued Medications Generic Name Dose Route Start Last Admin Trade Name Freq PRN Reason Stop Dose Admin Diphenhydramine HCl 25 mg 05/11/24 11:52 05/11/24 12:01 Diphenhydramine Hcl 50 Mg/Ml Vial IVPUSH 05/11/24 11:53 25 mg ONCE ONE Administration Hydralazine HCl 5 mg 05/11/24 14:12 05/11/24 14:17 Hydralazine Hcl 20 Mg/Ml Vial IVPUSH 05/11/24 14:13 5 mg ONCE ONE Administration Protocol Hydralazine HCl 5 mg 05/11/24 17:55 05/11/24 18:18 Hydralazine Hcl 20 Mg/Ml Vial IVPUSH 05/11/24 17:56 5 mg ONCE ONE Administration Protocol Hydromorphone HCl 1 mg 05/11/24 17:58 05/11/24 18:19 Hydromorphone Hcl 1 Mg/Ml Syringe IVPUSH 05/11/24 17:59 1 mg ONCE ONE Administration Protocol Acetaminophen 1,000 mg in 100 mls @ 400 mls/hr 05/11/24 11:54 05/11/24 12:29 Ofirmev IV 05/11/24 12:08 Infused ONCE ONE Infusion Metoclopramide HCl 10 mg 05/11/24 11:52 05/11/24 12:01 Metoclopramide Hcl 10 Mg/2 Ml Vial IVPUSH 05/11/24 11:53 10 mg ONCE ONE Administration Nitroglycerin 0.5 inch 05/11/24 14:12 05/11/24 14:16 Nitroglycerin 2 % Oint 1 Gm Packet TRANSDERMA 05/11/24 14:13 0.5 inch ONCE ONE Administration Ondansetron HCl 4 mg 05/11/24 18:14 05/11/24 18:18 Ondansetron Hcl 4 Mg/2 Ml Vial IVPUSH 05/11/24 18:15 4 mg ONCE ONE Administration Critical Care Time Critical Care Time Critical Care Time: No Discharge Plan Discharge Clinical Impression: Hypertensive urgency, Nausea & vomiting Patient Disposition: Home, Self-Care Instructions: Acute Nausea and Vomiting (ED) Additional Instructions: Follow-up with your primary care doctor within the next 3 days. Return at any time with any new or worsening symptoms or concerns. Introduce a bland diet including crackers, bananas, rice, soup, toast, and boiled vegetables. This may progress to plain baked or boiled chicken or turkey. Avoid dairy products or foods high in fat or grease. Use Zofran as needed for nausea / vomiting. Take all your medications as prescribed Prescriptions: New ondansetron 4 mg tablet,disintegrating 4 mg PO Q8H PRN (Reason: nausea and vomiting) Qty: 10 0RF No Action thiamine HCl (vitamin B1) 100 mg tablet 100 mg PO DAILY 90 Days Qty: 90 0RF vitamin A 2,400 mcg capsule 2,400 mcg PO DAILY 90 Days Qty: 90 1RF citalopram 20 mg tablet 20 mg PO DAILY 90 Days Qty: 90 1RF carvedilol 6.25 mg tablet 6.25 mg PO BID 90 Days Qty: 180 1RF gabapentin 400 mg capsule 400 mg PO BID 90 Days Qty: 180 1RF pyridoxine (vitamin B6) 50 mg tablet 50 mg PO DAILY 90 Days Qty: 90 1RF sevelamer carbonate 800 mg tablet 1,600 mg PO TIDWM 30 Days Qty: 180 6RF ergocalciferol (vitamin D2) [Vitamin D2] 1,250 mcg (50,000 unit) capsule 1,250 mcg PO QWEEK 30 Days Qty: 5 6RF cyanocobalamin (vitamin B-12) 1,000 mcg Tablet 1,000 mcg PO DAILY oxycodone 5 mg tablet 5 mg PO Q6H PRN (Reason: pain) potassium chloride 20 mEq tablet extended release 20 meq PO DAILY pantoprazole 40 mg tablet,delayed release (DR/EC) 40 mg PO DAILY@0630 ondansetron HCl 4 mg tablet 4 mg PO Q8H PRN (Reason: nausea and vomiting) Qty: 15 0RF oxycodone 5 mg tablet 5 mg PO Q8H PRN (Reason: pain) Qty: 15 0RF Rx Instructions: Partial Fill upon patient request. sucralfate 1 gram tablet 1 g PO BID acetaminophen [Mapap (acetaminophen)] 500 mg capsule 1,000 mg PO Q8H PRN (Reason: Pain) Clinisol SF 15 % 15 % parenteral solution 0.5 ea IV MOWEFR@0900 Rx Instructions: DIALYSIS MEDICATION Bariatric Multivitamins 45 mg iron- 800 mcg-120 mcg Capsule 1 cap PO DAILY fluticasone propionate 50 mcg/actuation spray,suspension 1 spray intranasal DAILY PRN (Reason: Allergy Symptoms) Rx Instructions: administer into each nostril melatonin 10 mg capsule 10 mg PO BEDTIME PRN (Reason: sleep) 90 Days Qty: 90 1RF ferrous sulfate 325 mg (65 mg iron) tablet,delayed release (DR/EC) 325 mg PO BID PRN (Reason: Iron Levels) midodrine 5 mg tablet 5 mg PO TID Referrals: Rozina Nicole MD [Primary Care Provider] - Print Language: Cymraes
[2024-05-11 12:00] LABS: MANUAL DIFF FLAG NO
[2024-05-11 12:01] LABS: Basophils Absolute Auto 0.1 X10*3/uL (0.0-0.2); Basophils Percent Auto 0.5 % (0-2); Eosinophils Absolute Auto 0.1 X10*3/uL (0.0-0.4); Eosinophils Percent Auto 0.8 % (0-4); Hematocrit 35.7 % (37.0-47.0); Hemoglobin 11.4 g/dl (12.0-16.0); Imm Gran Abs Auto 0.05 X10*3/uL (0.00-0.03); Imm Gran Pct Auto 0.4 % (0.0-0.4); Lymphocytes Absolute Auto 1.2 X10*3/uL (1.2-4.9); Lymphocytes Percent Auto 10.3 % (20-40); Mean Corpuscular HGB Conc 31.9 g/dl (31.0-35.0); Mean Corpuscular Hemoglobin 30.4 pg (27.0-33.0); Mean Corpuscular Volume 95.2 fL (80.0-98.0); Mean Platelet Volume 9.7 fL (9.4-12.3); Monocytes Absolute Auto 0.9 X10*3/uL (0.1-1.2); Monocytes Percent Auto 7.3 % (2-11); Neutrophils Absolute Auto 9.6 x10*3/uL (2.0-8.3); Neutrophils Percent Auto 80.7 % (45-73); Platelet Count 260 X10*3/uL (160-400); Red Blood Count 3.75 X10*6/uL (4.20-5.50); White Blood Count 11.9 X10*3/uL (4.8-10.8)
[2024-05-11] MEDS: diphenhydrAMINE HCL 50 MG/ML VIAL 25 MG IVPUSH (12:01)
[2024-05-11] MEDS: Acetaminophen 1,000 MG/100 ML PIGGYBACK 400 MG IV (12:01)
[2024-05-11] MEDS: Metoclopramide HCl 10 MG/2 ML VIAL IVPUSH (12:01)
[2024-05-11 12:22] LABS: Troponin-I High Sensitivity 3.6 ng/L (<3.5-17.0)
--- NOTE | 2024-05-11 12:28 | PC.NURSE ---
Provider added on liver panel, called lab, they are able to add on order, no add on order needed.
[2024-05-11 12:35] LABS: Anion Gap 17 (12-20); Blood Urea Nitrogen 30 mg/dL (9-16); Calcium 9.4 mg/dL (8.4-10.2); Carbon Dioxide 27 mmol/L (22-29); Chloride 100 mmol/L (96-108); Creatinine Clr Calc Pharmacy 13.1; Estimated Glomerular Filt Rate 10; Glucose Random 103 mg/dL (60-115); Lipase 62 U/L (8-78); Magnesium 2.3 mg/dL (1.6-2.6); Potassium 4.9 mmol/L (3.3-5.1); Sodium 139 mmol/L (135-145)
[2024-05-11 12:48] LABS: Alanine Aminotransferase 7 U/L (0-31); Albumin Level 3.6 g/dL (3.5-5.0); Alkaline Phosphatase 145 U/L (39-117); Aspartate Amino Transferase 14 U/L (5-31); Bilirubin Direct 0.1 mg/dL (0.0-0.5); Bilirubin Total 0.4 mg/dL (0.0-1.0); Total Protein 6.3 g/dL (6.5-8.0)
--- NOTE | 2024-05-11 13:46 | PC.NURSE ---
BP still elevated, provider aware.
--- OUTSIDE RECORDS SUMMARY | 2024-05-11 13:47 | XMS_ITS | Encounter Summary ---
Author Organization [facility] Address [address] [address] Phone Care Team Providers Care Electric Blanket Wirer Name Role Phone Rozina Nicole MD Primary Care Provider [phone] Encounter Details Date Type Department Care Team ([facility] st Contact Info) Description 05/05/2024 Treatment [facility]. [address] [address] Yamileth Varghese MD [address] [address] End stage renal disease; Dependence [...] Dialysis Note - Yamileth Varghese MD - 05/05/2024 12:00 AM EDT BASIC NOTE Patient: Meliza Perry : 1970 Note Author: YAMILETH VARGHESE MD Service Date: 05/05/2024 Telehealth encounter using audiovisual technology, performed according to state requirements. Appropriate patient consent obtained. This patient was personally seen for a basic visit as part of routine monthly dialysis care for end stage renal disease. Attending Advertising Photographer: YAMILETH VARGHESE Dialysis Location: [facility] Schedule: Shift: ADEQUACY ASSESSMENT Kt/V, Natural Log 1.21 (04/30/24) 1.14 (04/23/24) 1.04 (04/19/24) UREA REDUCTION RATIO (%) 67 (04/30/24) 64 (04/23/24) 61 (04/19/24) BUN 39 (04/30/24) 59 (04/23/24) 62 (04/19/24) BUN Post Dialysis 13 (04/30/24) 21 (04/23/24) 24 (04/19/24) Creatinine 7.56 (04/14/24) 6.34 (03/31/24) 6.00 (03/17/24) Bicarbonate (CO2) 18 (04/14/24) 22 (03/17/24) 19 (02/20/24) Sodium 136 (04/14/24) 138 (03/17/24) 136 (02/20/24) ANEMIA ASSESSMENT Hgb 10.2 (05/05/24) 9.7 (04/30/24) 11.9 (04/14/24) Iron Saturation (TSat) 53 (04/14/24) 24 (03/17/24) 28 (02/20/24) Ferritin 1,229 (04/14/24) 927 (03/17/24) 1,110 (02/20/24) Iron 115 (04/14/24) 51 (03/17/24) 56 (02/20/24) TIBC 216 (04/14/24) 216 (03/17/24) 200 (02/20/24) MCV 91.9 (04/14/24) 91.3 (03/17/24) 95.5 (02/20/24) Platelets 244 (04/14/24) 305 (03/17/24) 245 (02/20/24) BMM ASSESSMENT Calcium, Adjusted Total 9.0 04/30/24 9.3 04/14/24 9.9 03/17/24 Calcium 8.8 04/30/24 9.3 04/14/24 9.9 03/17/24 Phosphorus, Serum 5.5 04/30/24 6.9 04/14/24 5.2 03/22/24 Ca*PO4 64.2 04/14/24 66.3 03/17/24 45.0 02/20/24 PTH, Intact 1,066 04/19/24 1,194 03/17/24 960 02/25/24 Magnesium 2.7 04/14/24 2.3 03/17/24 2.3 02/20/24 Alkaline Phosphatase 189 04/14/24 175 03/17/24 168 02/20/24 Aluminum 4 02/20/24 NUTRITION ASSESSMENT Albumin 3.8 04/30/24 4.1 04/14/24 4.2 03/17/24 Potassium 4.8 04/14/24 4.7 04/09/24 4.3 03/31/24 Hemoglobin A1C 4.7 02/20/24 ADDITIONAL LABS White Blood Cells 7.2 (04/14/24) 8.5 (03/17/24) 5.4 (02/20/24) Cholesterol 174 (02/20/24) HDL 58 (02/20/24) LDL-Calc 89 (02/20/24) Triglycerides 136 (02/20/24) Hep B Surface Antibody >1,000 (02/20/24) Uric Acid 9.6 (02/20/24) ADDITIONAL COMMENT COMMENTS: 03/31/24 doing ok 04/02/24 stable 04/09/24 doing ok 04/14/24 stable 05/04/24 05/05/24 03/22/24 doing better w GI issues but [...] off Signed by: YAMILETH VARGHESE MD on 05/08/2024 at 05:43:13 AM Transcribed by: YAMILETH VARGHESE MD on 05/08/2024 at 05:43:13 AM documented in this encounter Plan of Treatment Not on file documented as of this encounter Visit Diagnoses Diagnosis End stage renal disease Dependence on renal dialysis documented in this encounter Care Teams Electric Blanket Wirer Relationship Specialty Start Date End Date Rozina Nicole MD [address] [facility] [address] [place], [place] PCP - General 02/21/20 documented as of this encounter
--- OUTSIDE RECORDS SUMMARY | 2024-05-11 13:47 | XMS_ITS | Clinical Summary ---
Author Organization [address] [facility] Address [address] [place] [address] Phone Care Team Providers Care Risk Control Field Representative Name Role Phone Sam Lynch MD Primary Care Provider [phone] Allergies Active Allergy Reactions Criticality Noted Date [...] REMOVAL OTHER SURGICAL HISTORY 06/13/2021 Left PROCEDURE: IN CRTJ ARVEN FSTL XCP DIR EHRMANN BARTH NONAUTOG GRF; COMMENT: Left axillary loop [...] Documents on File Type Date Recorded Patient Topline Beading Machine Tender Expl anation Health Care Decision (hx) 07/24/2023 [...] (hx) 12/16/2022 AD REED DIRECTIVE Care Teams Risk Control Field Representative Relationship Specialty Start Date End Date Sam Lynch MD [address] [place] [address] [address] [place], [place] PCP - General 10/25/22
--- OUTSIDE RECORDS SUMMARY | 2024-05-11 13:47 | XMS_ITS | Encounter Summary ---
Author Organization [facility] Address [address] [address] Phone Care Team Providers Care Commercial Lawn Specialist Name Role Phone Rozina Nicole MD Primary Care Provider [phone] Encounter Details Date Type Department Care Team ([facility] st Contact Info) Description 05/08/2024 Treatment [facility]. [address] [address] Yamileth Varghese MD [address] [address] End stage renal disease; Dependence [...] Dialysis Note - Yamileth Varghese MD - 05/08/2024 12:00 AM EDT BASIC NOTE Patient: Meliza Perry : 1970 Note Author: YAMILETH VARGHESE MD Service Date: 05/08/2024 This patient was personally seen for a basic visit as part of routine monthly dialysis care for end stage renal disease. Attending Tobacco Conditioner: YAMILETH VARGHESE Dialysis Location: [facility] Schedule: Shift: ADEQUACY ASSESSMENT Kt/V, Natural [...] by: YAMILETH VARGHESE MD on 05/08/2024 at 05:41:46 AM Transcribed by: YAMILETH VARGHESE MD on 05/08/2024 at 05:41:46 AM documented in this encounter Plan of Treatment Not on file documented as of this encounter Visit Diagnoses Diagnosis End stage renal disease Dependence on renal dialysis documented in this encounter Care Teams Commercial Lawn Specialist Relationship Specialty Start Date End Date Rozina Nicole MD [address] [place], [place] PCP - General 02/21/20 documented as of this encounter
--- OUTSIDE RECORDS SUMMARY | 2024-05-11 13:48 | XMS_ITS | Encounter Summary ---
Author Organization [facility] [place] Address [address] [facility] [address] [place] [address] Phone Care Team Providers Care Fabric Awning Repairer Name Role Phone Rozina Nicole MD Primary Care Provider [phone] Encounter Details Date Type Department Care Team (Late st Contact Info) Description 05/15/2020 Orders Only [facility] [address] [place] [address] Jon Wang MD [address] [facility] [address] [place] [phone] Stage 5 chronic kidney disease (HCC) Social [...] (HCC) documented in this encounter Care Teams Fabric Awning Repairer Relationship Specialty Start Date End Date Rozina Nicole MD [address] [place] [address] [address] [place] PCP - General 02/21/20 documented as of this encounter
--- OUTSIDE RECORDS SUMMARY | 2024-05-11 13:48 | XMS_ITS | Encounter Summary ---
Author Organization [facility] [place] Address [address] [facility] [address] [place] [address] Phone Care Team Providers Care Hammer Fitter Name Role Phone Rozina Nicole MD Primary Care Provider [phone] Reason for Visit * Reason Onset Date Comments Med Refill 11/23/2020 Encounter Details Date Type Department Care Team (Late st Contact Info) Description 11/23/2020 Refill [facility] [place] [address] [facility] [address] [place] [phone] Nkechi Salvador, ALEX [address] [facility] [address] [place] [address] Social History Tobacco Use Types [...] on filedocumented in this encounter Care Teams Hammer Fitter Relationship Specialty Start Date End Date Rozina Nicole MD [address] [place], [place] PCP - General 02/21/20 documented as of this encounter
--- OUTSIDE RECORDS SUMMARY | 2024-05-11 13:48 | XMS_ITS | Encounter Summary ---
Author Organization [facility] [place] Address [address] [place] [address] Phone Care Team Providers Care Lap Cutter Truer Operator Name Role Phone Rozina Nicole MD Primary Care Provider [phone] Encounter Details Date Type Department Care Team (Late st Contact Info) Description 05/08/2020 Orders Only [facility] [address] [place] [address] Provider, MD Wendy [address] [place], [place] [id number] Social History Tobacco Use Types Packs/Day Years [...] on filedocumented in this encounter Care Teams Lap Cutter Truer Operator Relationship Specialty Start Date End Date Rozina Nicole MD [address] [place], [place] PCP - General 02/21/20 documented as of this encounter
--- OUTSIDE RECORDS SUMMARY | 2024-05-11 13:48 | XMS_ITS | Encounter Summary ---
Author Organization [facility] [place] Address [address] [facility] 200 [place] [address] Phone Care Team Providers Care Shipping Room Helper Name Role Phone Rozina Nicole MD Primary Care Provider [phone] Encounter Details Date Type Department Care Team (Late st Contact Info) Description 05/22/2020 Orders Only [facility] [address] [place] [address] Jon Wang MD [address] [facility] [address] [place] [phone] Stage 5 chronic kidney disease (HCC) Social [...] (HCC) documented in this encounter Care Teams Shipping Room Helper Relationship Specialty Start Date End Date Rozina Nicole MD [address] [place] [address] PCP - General 02/21/20 documented as of this encounter
--- OUTSIDE RECORDS SUMMARY | 2024-05-11 13:48 | XMS_ITS | Clinical Summary ---
Author Organization [facility] Address [address] [place] [address] [place] [address] Phone Care Team Providers Care Oncology Radiation Physician Name Role Phone Rozina Nicole MD Primary Care Provider Allergies Active Allergy [...] ureter 05/02/2020 05/02/2020 [facility] 05/02/2020 09/07/2020 Encounters Date Type Department Care Team Description 05/08/2024 Treatment [facility] [address] [address] Jon Wang MD End stage renal disease; Dependence on renal dialysis 05/05/2024 Treatment [facility] [address] [address] Jon Wang MD End stage renal disease; Dependence on renal dialysis 05/04/2024 Treatment [facility] [address] [phone] Kwesi Gonzalez MD End stage renal disease; Dependence on renal dialysis 04/14/2024 Treatment [facility] [address] [address] Jon Wang MD End stage renal disease; Dependence on renal dialysis 04/09/2024 Treatment [facility] [address] [address] Jon Wang MD End stage renal disease; Dependence on renal dialysis 04/02/2024 Treatment [facility] [address] [address] Jon Wang MD 03/31/2024 Treatment [facility] [address] [address] Jon Wang MD 03/22/2024 Orders Only [facility] [address] [address] Jon Wang MD 03/22/2024 Treatment [facility] [address] [address] Jon Wang MD 03/03/2024 Treatment [facility] [address] [address] Jon Wang MD 02/13/2024 Treatment [facility] [address] [address] Jon Wang MD from Last 3 Months [...] Procedure Name Priority Date/Time Associated Diagnosis Comments HEMOGLOBIN Routine 05/05/2024 3:00 AM EDT LIH (HC) Routine 04/30/2024 3:00 AM EDT PHOSPHATE ( PHOSPHORUS) Routine 04/30/2024 3:00 AM EDT CALCIUM, ADJUSTED W ALBUMIN Routine 04/30/2024 3:00 AM EDT HEMOGLOBIN AND HEMATOCRIT, BLOOD Routine 04/30/2024 3:00 AM EDT KT/V NATURAL LOG, URR (HC) Routine 04/30/2024 3:00 AM EDT LIH (HC) Routine 04/23/2024 3:00 AM EDT KT/V NATURAL LOG, URR (HC) Routine 04/23/2024 3:00 AM EDT PTH, INTACT Routine 04/19/2024 3:00 AM EDT KT/V NATURAL LOG, URR (HC) Routine 04/19/2024 3:00 AM EDT LIH (HC) Routine 04/19/2024 3:00 AM EDT HEPATITIS B [...] EST KT/V NATURAL LOG, URR (HC) Routine 03/05/2024 3:00 AM EST LIH (HC) Routine 03/03/2024 3:00 AM EST POTASSIUM Routine 03/03/2024 3:00 AM EST HEMOGLOBIN AND HEMATOCRIT, BLOOD Routine 03/03/2024 3:00 AM EST PTH, INTACT Routine 02/25/2024 3:00 AM EST LIH (HC) Routine 02/25/2024 3:00 AM EST ALBUMIN Routine 02/25/2024 3:00 AM EST KT/V NATURAL LOG, URR (HC) Routine 02/25/2024 3:00 AM EST ALUMINUM LEVEL [...] EST from Last 3 Months Results * (ABNORMAL) Hemoglobin (05/05/2024 3:00 AM EDT) Only the most recent of2 resultswithin the time period is included. Hgb 10.2(L) 11.2 - 15.7 g/dL [facility] Hemoglobin x 3 30.6(L) 33.6 - 47.1 g/dL [facility] 05/05/2024 3:00 AM EDT 05/06/2024 12:47 PM EDT us Jon Wang MD LAB BLOOD ORDERABLES Final Re sult [facility] [address] [place] [address] * LIH (04/30/2024 3:00 AM EDT) Only the most recent of16 resultswithin the time period is included. Lipemia Normal Normal [facility] Icterus Normal Normal [facility] Hemolysis Normal Normal [facility] 04/30/2024 3:00 AM EDT 05/01/2024 1:24 PM EDT Jon Wang MD LAB [id number] SOLICITED RESULTS Final Result Performing Organization Address City/[facility] Co de Phone Number [facility] [address] [place] [address] * (ABNORMAL) Kt/V Natural Log, URR (04/30/2024 3:00 AM EDT) Only the most recent of14 resultswithin the time period is included. Treatment Time 151 min [facility] Pre-Weight, lb 60.8 kg [facility] Post-Weight, lb 59.7 kg [facility] Ultrafiltration Rate 7 <=13 mL/kg/hr [facility] Comment: Recommend achieving Ultrafiltration Rate (UFR) <=10 mL/kg/hr References: Terrell GARCIA et al. Kidney Int. 2010; 79(2):250-257 BUN Post Dialysis 13 7 - 25 mg/dL [facility] BUN 39(H) 7 - 25 mg/dL [facility] UREA REDUCTION RATIO (%) 67 >=65 % [facility] Kt/V Natural Log 1.21 >=1.2 [facility] 04/30/2024 3:00 AM EDT 05/01/2024 1:16 PM EDT Jon Wang MD LAB [id number] SOLICITED RESULTS Final Result Performing Organization Address City/[facility]/ZIP Co de Phone Number [facility] [address] [place] [address] * Calcium, Adjusted w Albumin (04/30/2024 3:00 AM EDT) Calcium 8.8 8.6 - 10.3 mg/dL [facility] Albumin 3.8 3.6 - 5.4 g/dL [facility] Calcium, Adjusted Total 9.0 8.6 - 10.3 mg/dL [facility] 04/30/2024 3:00 AM EDT 05/01/2024 1:24 PM EDT Jon Wang MD LAB BLOOD ORDERABLES Final Re sult Performing Organization Address [facility] Co de Phone Number [facility] [address] [place] [address] * (ABNORMAL) Hemoglobin and hematocrit (04/30/2024 3:00 AM EDT) Only the most recent of3 resultswithin the time period is included. Hgb 9.7(L) 11.2 - 15.7 g/dL [facility] Hematocrit 29.4(L) 34.1 - 44.9 % [facility] Hemoglobin x 3 29.1(L) 33.6 - 47.1 g/dL [facility] 04/30/2024 3:00 AM EDT 05/01/2024 1:04 PM EDT Jon Wang MD LAB BLOOD ORDERABLES Final Re sult Performing Organization Address [facility] Co de Phone Number [facility] [address] [place] [address] * (ABNORMAL) Phosphorus (04/30/2024 3:00 AM EDT) Only the most recent of2 resultswithin the time period is included. Phosphorus, Serum 5.5(H) 2.5 - 5.0 mg/dL [facility] 04/30/2024 3:00 AM EDT 05/01/2024 1:24 PM EDT Jon Wang MD LAB BLOOD ORDERABLES Final Re sult Performing Organization Address [facility] Co de Phone Number [facility] [address] [place] [address] * (ABNORMAL) PTH, Intact (04/19/2024 3:00 AM [...] ORDERABLES Final Re sult Performing Organization Address City/[facility]/ZIP Co de Phone Number [facility] [address] [place] [address] * (ABNORMAL) Calcium Phosphorus Product, Adjusted (04/14/2024 3:00 AM EST) Only the most recent of3 resultswithin the time period is included. Pathologist [facility] Albumin 4.1 3.6 - 5.4 g/dL [facility] Calcium 9.3 8.6 - 10.3 mg/dL [facility] Phosphorus, Serum 6.9(H) 2.5 - 5.0 mg/dL [facility] Ca*PO4 64.2(A) <55.0 mg2/dL2 [facility] Calcium, Adjusted Total 9.3 8.6 - 10.3 mg/dL [facility] CA*PO4 CORRCTD 64.2(A) <55.0 mg2/dL2 [facility] 04/14/2024 3:00 AM EST 04/15/2024 2:40 PM EST Jon Wang MD LAB [id number] SOLICITED RESULTS Final Result Performing Organization Address [facility] Co de Phone Number [facility] [address] [place] [address] * Hepatitis B Surface Ag w/Reflex Confirmation (04/14/2024 3:00 AM EST) Only the most recent of3 resultswithin the time period is included. Pathologist [facility] Hep B Surface Antigen Negative Negative [facility] 04/14/2024 3:00 AM EST 04/15/2024 2:40 PM EST Jon Wang MD LAB BLOOD ORDERABLES Final Re sult Performing Organization Address City/[facility]/ZIP Co de Phone Number [facility] [address] [place] [address] * (ABNORMAL) TSAT (04/14/2024 3:00 AM EST) Only the most recent of3 resultswithin the time period is included. Pathologist [facility] Iron 115 50 - 170 ug/dL [facility] Transferrin 154(L) 250 - 380 mg/dL [facility] TIBC 216 211 - 406 ug/dL [facility] Iron Saturation (TSat) 53(H) 22 - 52 % [facility] 04/14/2024 3:00 AM EST 04/15/2024 2:40 PM EST Jon Wang MD LAB BLOOD ORDERABLES Final Re sult Performing Organization Address City/[facility] Co de Phone Number [facility] [address] [place] [address] * (ABNORMAL) CBC and Differential (04/14/2024 3:00 AM EST) Only the most recent of2 resultswithin the time period is included. [facility] DIFFERENTIAL MANUAL, 2 Not Indicated [facility] White [...] 3:00 AM EST 04/15/2024 2:44 PM EST Jon Wang MD LAB BLOOD ORDERABLES Final Re sult Performing Organization Address [facility] de Phone Number [facility] [address] [place] [address] * ALT (04/14/2024 3:00 AM EST) Only the most recent of3 resultswithin the time period is included. ALT (SGPT) 23 10 - 49 U/L [facility] 04/14/2024 3:00 AM EST 04/15/2024 2:40 PM EST Jon Wang MD LAB BLOOD ORDERABLES Final Re sult Performing Organization Address [facility] de Phone Number [facility] [address] [place] [address] * AST (04/14/2024 3:00 AM EST) Only the most recent of3 resultswithin the time period is included. AST (SGOT) 29 <34 U/L [facility] 04/14/2024 3:00 AM EST 04/15/2024 2:40 PM EST Jon Wang MD LAB BLOOD ORDERABLES Final Re sult Performing Organization Address [facility] de Phone Number [facility] [address] [place] [address] * Protein, total (04/14/2024 3:00 AM EST) Only the most recent of3 resultswithin the time period is included. Total Protein 6.9 6.4 - 8.9 g/dL [facility] 04/14/2024 3:00 AM EST 04/15/2024 2:40 PM EST Jon Wang MD LAB BLOOD ORDERABLES Final Re sult Performing Organization Address [facility] de Phone Number [facility] [address] [place] [address] * (ABNORMAL) Alkaline phosphatase (04/14/2024 3:00 AM EST) Only the most recent of3 resultswithin the time period is included. Alkaline Phosphatase 189(H) 46 - 116 U/L [facility] 04/14/2024 3:00 AM EST 04/15/2024 2:40 PM EST Jon Wang MD LAB BLOOD ORDERABLES Final Re sult Performing Organization Address [facility] de Phone Number [facility] [address] [place] [address] * Magnesium (04/14/2024 3:00 AM EST) Only the most recent of3 resultswithin the time period is included. Magnesium 2.7 1.9 - 2.7 mg/dL [facility] 04/14/2024 3:00 AM EST 04/15/2024 2:40 PM EST Jon Wang MD LAB BLOOD ORDERABLES Final Re sult Performing Organization Address [facility] de Phone Number [facility] [address] [place] [address] * Lactate dehydrogenase (04/14/2024 3:00 AM EST) Only the most recent of3 resultswithin the time period is included. LDH 210 120 - 246 U/L [facility] 04/14/2024 3:00 AM EST 04/15/2024 2:40 PM EST Jon Wang MD LAB BLOOD ORDERABLES Final Re sult Performing Organization Address [facility] de Phone Number [facility] [address] [place] [address] * Glucose, random (04/14/2024 3:00 AM EST) Only the most recent of3 resultswithin the time period is included. Glucose 90 74 - 109 mg/dL [facility] 04/14/2024 3:00 AM EST 04/15/2024 2:40 PM EST Jon Wang MD LAB BLOOD ORDERABLES Final Re sult Performing Organization Address City/[facility]/ZIP Co de Phone Number [facility] [address] [place] [address] * (ABNORMAL) Ferritin (04/14/2024 3:00 AM EST) Only the most recent of3 resultswithin the time period is included. Ferritin 1,229(H) 10 - 291 ng/mL [facility] 04/14/2024 3:00 AM EST 04/15/2024 2:40 PM EST Jon Wang MD LAB BLOOD ORDERABLES Final Re sult Performing Organization Address [facility] Co de Phone Number [facility] [address] [place] [address] * (ABNORMAL) Creatinine, serum (04/14/2024 3:00 AM EST) Only the most recent of3 resultswithin the time period is included. Creatinine 7.56(H) 0.55 - 1.02 mg/dL [facility] 04/14/2024 3:00 AM EST 04/15/2024 2:40 PM EST Jon Wang MD LAB BLOOD ORDERABLES Final Re sult Performing Organization Address [facility] Co de Phone Number [facility] [address] [place] [address] * (ABNORMAL) Bilirubin, total (04/14/2024 3:00 AM EST) Only the most recent of3 resultswithin the time period is included. Total Bilirubin 0.2(L) 0.3 - 1.2 mg/dL [facility] 04/14/2024 3:00 AM EST 04/15/2024 2:40 PM EST Jon Wang MD LAB BLOOD ORDERABLES Final Re sult Performing Organization Address [facility] Co de Phone Number [facility] [address] [place] [address] * (ABNORMAL) Electrolyte panel (04/14/2024 3:00 AM [...] ORDERABLES Final Re sult Performing Organization Address [facility] Co de Phone Number [facility] [address] [place] [address] * Potassium (04/09/2024 3:00 AM EST) Only the most recent of5 resultswithin the time period is included. Potassium 4.7 3.4 - 5.0 mEq/L [facility] 04/09/2024 3:00 AM EST 04/10/2024 1:32 PM EST us Jon Wang MD LAB BLOOD ORDERABLES Final Re sult Performing Organization Address [facility] Co de Phone Number [facility] [address] [place] [address] * (ABNORMAL) Creatinine clearance, urine, 24 hour (03/31/2024 3:00 AM EST) Patient Height (FT) 150.0 cm [facility] Dry Weight Not Received kg [facility] Creatinine 6.34(H) 0.55 - 1.02 mg/dL [facility] 03/31/2024 3:00 AM EST 04/02/2024 12:56 PM EST us Jon Wang MD LAB URINE ORDERABLES Final Re sult Performing Organization Address [facility] de Phone Number [facility] [address] [address] * Albumin (02/25/2024 3:00 AM EST) Albumin 3.7 3.6 - 5.4 g/dL [facility] 02/25/2024 3:00 AM EST 02/26/2024 2:29 PM EST us Jon Wang MD LAB BLOOD ORDERABLES Final Re sult Performing Organization Address [facility] de Phone Number [address] [address] * Confirmation Test HCV (02/20/2024 3:00 AM EST) Hep C Ab Confirmation Not needed [facility] 02/20/2024 3:00 AM EST 02/23/2024 1:57 PM EST us Jon Wang MD LAB BLOOD ORDERABLES Final Re sult Performing Organization Address [facility] de Phone Number [address] [address] * Collection Date (02/20/2024 3:00 AM EST) Collection Date See Comment [facility] Comment: Patient sample received may exceed specimen stability, based on the collection date electronically provided. ??When reviewing patient results, verify collection information and consider specimen stability before acting on any critical or panic results. 02/20/2024 3:00 AM EST us Jon Wang MD LAB [id number] SOLICITED RESULTS Final Result Performing Organization Address [facility] de Phone Number [facility] [address] [place] [address] * HEPATITIS C ABS W/REFLEX RNA DETECTR (02/20/2024 3:00 AM EST) Hep C Virus Ab Non-Reacti ve Non-Reacti ve [facility] 02/20/2024 3:00 AM EST 02/23/2024 1:26 PM EST us Jon Wang MD LAB [id number] SOLICITED RESULTS Final Result Performing Organization Address [facility] Phone Number [facility] [address] [place] [address] * Aluminum level (02/20/2024 3:00 AM EST) Aluminum 4 1 - 20 ug/L [facility] 02/20/2024 3:00 AM EST 02/23/2024 1:22 PM EST us Jon Wang MD LAB BLOOD ORDERABLES Final Re sult Performing Organization Address [facility] de Phone Number [facility] [address] [place] [address] * Hepatitis B Surface Antibody (02/20/2024 3:00 AM EST) Hep B Surface Antibody >1,000 mIU/mL [facility] Comment: Interpretation: <10: No Immunity >=10: Probable Immunity 02/20/2024 3:00 AM EST 02/23/2024 1:26 PM EST us Jon Wang MD LAB BLOOD ORDERABLES Final Re sult Performing Organization Address [facility] de Phone Number [facility] [address] [place] [address] * (ABNORMAL) CBC (02/20/2024 3:00 AM EST) [...] ORDERABLES Final Re sult Performing Organization Address [facility] de Phone Number [facility] [address] [place] [address] * (ABNORMAL) Uric Acid (02/20/2024 3:00 AM EST) Uric Acid 9.6(H) 2.3 - 6.6 mg/dL [facility] 02/20/2024 3:00 AM EST 02/23/2024 1:26 PM EST Jon Wang MD LAB BLOOD ORDERABLES Final Re sult Performing Organization Address [facility] de Phone [facility] [address] [place] [address] * Hemoglobin A1c (02/20/2024 3:00 AM EST) [...] Final Re sult [facility] [address] [place] [address] * (ABNORMAL) Lipid panel (02/20/2024 3:00 AM [...] Final Re sult [facility] [address] [place] [address] from Last 3 Months Insurance [place] Care Teams Oncology Radiation Physician Relationship Specialty Start Date End Date Rozina Nicole MD [address] [place] [address] PCP - General 02/21/20
[2024-05-11] MEDS: Nitroglycerin 2 % Oint 1 GM Packet 0.5 INCH TRANSDERMA (14:16)
[2024-05-11] MEDS: hydrALAZINE HCl 20 MG/ML VIAL 5 MG IVPUSH ×2 (14:17→18:18)
[2024-05-11] MEDS: ondansetron HCL 4 MG/2 ML VIAL IVPUSH (18:18)
[2024-05-11] MEDS: HYDROmorphone HCl 1 MG/ML SYRINGE IVPUSH (18:19)
[2024-05-11 18:42] LABS: Troponin-I High Sensitivity 6.9 ng/L (<3.5-17.0)
--- NOTE | 2024-05-11 21:20 | PC.NURSE ---
no repeat trop needed per LEAF FAT SCRAPER Parker
--- NOTE | 2024-05-11 21:21 | PC.NURSE ---
tolerated a cup of ice water and 2 cups of apple juice. pt states no increase in pain or nausea. PRE SALES NETWORK ENGINEER aware
== END 2024-05-11 22:06 | disposition home or self-care (01) ==
PROVIDERS: Physician Assistant Medical; Emergency Provider Emergency Medicine; PCP Internal Medicine
DX: I16.0 Hypertensive urgency (principal); R11.2 Nausea with vomiting, unspecified; I10 Essential (primary) hypertension; E78.5 Hyperlipidemia, unspecified; F17.210 Nicotine dependence, cigarettes, uncomplicated; Z79.899 Other long term (current) drug therapy
CPT/HCPCS: 36415; 74176; 76705; 80048; 80076; 83690; 83735; 84484; 85025; 93005; 96365; 96375; 96376; 99285; J0131; J0360; J1171; J1200; J2405; J2765

== ENCOUNTER → 2024-05-11 11:14 | Outpatient (BNV) | payer MEDICARE, MEDICAID, SELFPAY | PROVIDERS: Emergency Provider Emergency Medicine; PCP Internal Medicine; Visit Provider Internal Medicine | DX: R10.9 Unspecified abdominal pain (principal) | CPT/HCPCS: 93010 ==

== ENCOUNTER → 2024-05-11 13:23 | Outpatient (BNV) | payer MEDICARE, MEDICAID, SELFPAY | PROVIDERS: Emergency Provider Emergency Medicine; PCP Internal Medicine; Visit Provider Radiology Diagnostic Radiology | DX: R10.13 Epigastric pain (principal) | CPT/HCPCS: 76705 ==

== ENCOUNTER 2024-05-18 19:03 | Inpatient (IN) | payer MEDICARE, MEDICAID, SELFPAY ==
--- NOTE | 2024-05-18 | ECG_ITS ---
Test Reason : DIZZINESS Blood Pressure : */* mmHG Vent. Rate : 70 BPM Atrial Rate : 70 BPM P-R Int : 136 ms QRS Dur : 92 ms QT Int : 500 ms P-R-T Axes : 46 27 40 degrees QTcB Int : 540 ms Normal sinus rhythm Prolonged QT Abnormal ECG When compared with ECG of 11-May-2024 11:34, QT has lengthened Referred By: Generic ED Physician Electronically Signed By: Julio Ramirez
--- NOTE | ~2024-05-18 | XR_ITS ---
CLINICAL HISTORY: CP 1 view chest x-ray Comparison: Chest x-ray from 05/03/2024 Findings: No consolidation, pneumothorax, or pleural effusion. Mild right infrahilar opacities of atelectasis and/or pneumonitis. Imaged mediastinum is unchanged. Degenerative changes include imaged AC joints, right worse than left. IMPRESSION: Mild right infrahilar atelectasis and/or pneumonitis. No consolidation at this time. This document has been electronically signed by: Toan Greer MD on 05/18/2024 19:53:15
--- NOTE | ~2024-05-18 | US_ITS ---
EXAMINATION: US DOPPLER visceral CLINICAL INFORMATION: Abdominal pain. COMPARISON: None available. TECHNIQUE: Ultrasound along with color Doppler imaging and spectral analysis was performed of the visceral arteries of the abdomen. FINDINGS: AORTA: The aorta proximal to superior mesenteric artery velocity measures 75.7 cm/second. Distal to SMA velocity measures 59 cm/second. CELIAC ARTERY: Velocity in inspiration supine measures 295 cm/second. There is mild turbulence on upright view. Inspiration upright velocity measures 255 cm/second. Expiration supine velocity measures 107 cm/second. Expiration upright velocity measures 102 cm/second. SUPERIOR MESENTERIC ARTERY: Velocity proximal SMA measures 1 53 cm/second. Mid segment measures 93.2 cm/second. Distal segment measures 71.3 cm/second. INFERIOR MESENTERIC ARTERY: Velocity measures 112 cm/second. SPLENIC ARTERY: Velocity measures 164 cm/second. HEPATIC ARTERY: Velocity measures 93.9 cm/second. US/US SMA IMPRESSION: Superior and inferior mesenteric artery velocity is normal. The celiac artery velocity is elevated in inspiration supine to 295 cm/second suggestive borderline atherosclerosis. The inferior mesenteric, splenic and hepatic artery velocities are normal. Electronically signed by: Francis Fry MD 05/21/2024 09:00 AM EDT
[2024-05-18 19:08] VITALS: BP 106/74; BP 122/64; PULSE 70; RESP 17; TEMP 36.5; O2SAT 100; O2SAT 98; BMI 24.1
[2024-05-18 19:24] LABS: Basophils Percent Auto 0.4 % (0-2); Eosinophils Absolute Auto 0.2 X10*3/uL (0.0-0.4); Eosinophils Percent Auto 3.3 % (0-4); Imm Gran Abs Auto 0.03 X10*3/uL (0.00-0.03); Imm Gran Pct Auto 0.6 % (0.0-0.4); Lymphocytes Absolute Auto 2.2 X10*3/uL (1.2-4.9); Lymphocytes Percent Auto 41.6 % (20-40); MANUAL DIFF FLAG NO; Mean Corpuscular HGB Conc 34.2 g/dl (31.0-35.0); Mean Corpuscular Hemoglobin 31.9 pg (27.0-33.0); Mean Corpuscular Volume 93.5 fL (80.0-98.0); Mean Platelet Volume 9.3 fL (9.4-12.3); Monocytes Absolute Auto 0.6 X10*3/uL (0.1-1.2); Neutrophils Absolute Auto 2.2 x10*3/uL (2.0-8.3); Neutrophils Percent Auto 43.1 % (45-73); Platelet Count 232 X10*3/uL (160-400); Red Blood Count 2.16 X10*6/uL (4.20-5.50); Red Cell Distribution Width 13.8 % (11.0-16.0); White Blood Count 5.2 X10*3/uL (4.8-10.8)
--- NOTE | 2024-05-18 19:26 | PC.NURSE ---
pt biba from home, a&ox4, respirations even and unlabored. pt reports x3 days dizziness, especially when ambulating, nausea, vomiting, diarrhea with coffee ground coloring. pt is a MWF dialysis pt, pt received dialysis yesterday. pt has skin grafts and fistula on the left arm. ems placed 20G in right ac. pt nsr on tele 70-72 bpm.
[2024-05-18 19:43] LABS: Alanine Aminotransferase 8 U/L (0-31); Albumin Level 3.1 g/dL (3.5-5.0); Alkaline Phosphatase 98 U/L (39-117); Anion Gap 12 (12-20); Aspartate Amino Transferase 17 U/L (5-31); Bilirubin Total 0.4 mg/dL (0.0-1.0); Blood Urea Nitrogen 37 mg/dL (9-16); Calcium 8.5 mg/dL (8.4-10.2); Carbon Dioxide 26 mmol/L (22-29); Chloride 99 mmol/L (96-108); Creatinine Clr Calc Pharmacy 12.2; Estimated Glomerular Filt Rate 9; Glucose Random 56 mg/dL (60-115); Lipase 45 U/L (8-78); Sodium 134 mmol/L (135-145); Total Protein 5.4 g/dL (6.5-8.0)
[2024-05-18 19:45] LABS: Hematocrit 20.2 % (37.0-47.0); Hemoglobin 6.9 g/dl (12.0-16.0)
[2024-05-18] MEDS: Dextrose 50 % 25 GM/50 ML SYRINGE IVPUSH (19:45)
[2024-05-18 19:46] LABS: Troponin-I High Sensitivity 4.4 ng/L (<3.5-17.0)
[2024-05-18 20:00] VITALS: BP 121/60; PULSE 76; RESP 15; O2SAT 100
[2024-05-18 20:01] LABS: Influenza A PCR NEGATIVE (Negative); Influenza B PCR NEGATIVE (Negative); Resp Syncy Virus RNA Qual PCR NEGATIVE (Negative); SARS COV2 PCR INHOUSE NEGATIVE (Negative)
[2024-05-18 20:05] LABS: OBS Int Ctl Valid YES; OBS1 POSITIVE (NEGATIVE)
--- OUTSIDE RECORDS SUMMARY | 2024-05-18 20:08 | XMS_ITS | Encounter Summary ---
Author Organization [facility] Address [address] [facility] [address] [place] [address] Phone Care Team Providers Care Bessemer Bottom Maker Name Role Phone Rozina Nicole MD Primary Care Provider [phone] Encounter Details Date Type Department Care Team (Late st Contact Info) Description 05/22/2020 Orders Only [facility] [address] [place] [address] Jon Wang MD [address] [facility] [address] [place] [phone] Stage 5 chronic kidney disease (HCC) Social [...] (HCC) documented in this encounter Care Teams Bessemer Bottom Maker Relationship Specialty Start Date End Date Rozina Nicole MD [address] [place] [address] [address] [place] PCP - General 02/21/20 documented as of this encounter
--- OUTSIDE RECORDS SUMMARY | 2024-05-18 20:08 | XMS_ITS | Encounter Summary ---
Author Organization [facility] Address [address] [place] [address] Phone Care Team Providers Care Research Administrator Name Role Phone Rozina Nicole MD Primary Care Provider [phone] Encounter Details Date Type Department Care Team (Late st Contact Info) Description 05/08/2020 Orders Only [facility] [address] [place] [address] Provider, MD Wendy [address] [place], [place] [id number] Social History Tobacco Use Types Packs/Day Years [...] on filedocumented in this encounter Care Teams Research Administrator Relationship Specialty Start Date End Date Rozina Nicole MD [address] [place], [place] PCP - General 02/21/20 documented as of this encounter
--- OUTSIDE RECORDS SUMMARY | 2024-05-18 20:08 | XMS_ITS | Encounter Summary ---
Author Organization [facility] Address [address] [facility] [address] [place] [address] Phone Care Team Providers Care Portable Machine Cutter Name Role Phone Rozina Nicole MD Primary Care Provider [phone] Encounter Details Date Type Department Care Team ([facility] st Contact Info) Description 05/15/2020 Orders Only [facility] [address] [place] [address] Jon Wang MD [address] [facility] [address] [place] [phone] Stage 5 chronic kidney disease (HCC) Social [...] (HCC) documented in this encounter Care Teams Portable Machine Cutter Relationship Specialty Start Date End Date Rozina Nicole MD [address] [place] [address] [address] [place] PCP - General 02/21/20 documented as of this encounter
--- OUTSIDE RECORDS SUMMARY | 2024-05-18 20:08 | XMS_ITS | Clinical Summary ---
Author Organization [address] [facility] Address [address] [place] [address] Phone Care Team Providers Care Speeder Operator Name Role Phone Sam Lynch MD Primary Care Provider Allergies Active Allergy Reactions Criticality Noted Date Comments Ibuprofen High 01/25/2021 Other Reaction(s): KIDNEY DAMAGE Nifedipine High 01/25/2021 Other Reaction(s): HIVES, LEG EDEMA Medications vitamin B complex (B COMPLEX 1 ORAL) ALMAS CE (1) TABLETA POR VIA ORAL CE VEZ AL IRAM 022 Active hydralazine HCl (HYDRALAZINE ORAL) Take by mouth. Activ e lidocaine 4 % patch Apply topically. Active melatonin 5 mg tablet Take by mouth. Activ e ONDANSETRON HCL ORAL Take 4 mg by mouth. 022 Active acetaminophen (TYLENOL) 500 mg capsule Take 2 capsules (1,000 mg total) by mouth. 024 Active busPIRone (BUSPAR) 5 mg tablet TAKE 1 TABLET BY MOUTH 3 TIMES A DAY FOR ANXIETY 022 Active calcitRIOL (ROCALTROL) 1 mcg/mL solution Take 0.25 mcg by mouth. Active carvediloL (COREG) 3.125 mg tablet Take 2 tablets (6.25 mg total) by mouth. 01/06/2 023 Active carvedilol CR (COREG CR) 10 mg 24 hr capsule Take 1 capsule (10 mg total) by mouth. Active cyclobenzaprine (FLEXERIL) 5 mg tablet Take 1 tablet (5 mg total) by mouth. Active diclofenac (VOLTAREN) 1 % topical gel APLICAR 2 GRAMOS TOPICAMENTE CUATRO VECES AL IRAM EN LA ESPALDA. Active dicyclomine (BENTYL) 10 mg capsule Take 1 capsule (10 mg total) by mouth. Active dicyclomine (BENTYL) 20 mg tablet Take 1 tablet (20 mg total) by mouth. Active doxazosin (CARDURA) 4 mg tablet Take 1 tablet (4 mg total) by mouth. Active escitalopram (LEXAPRO) 10 mg tablet Take 1 tablet (10 mg total) by mouth. Active ferrous sulfate 325 mg (65 mg elemental iron) tablet Take 1 tablet (325 mg total) by mouth. Active fluticasone propionate (FLONASE) 50 mcg/actuation nasal spray INSTILL 1 SPRAY INTRANASALLY DAILY ADMINISTER INTO EACH NOSTRIL Active gabapentin (NEURONTIN) 300 mg capsule Take 1 capsule (300 mg total) by mouth. Active meclizine (ANTIVERT) 25 mg tablet Take 1 tablet (25 mg total) by mouth. Active midodrine (PROAMATINE) 5 mg tablet Active ondansetron ODT (ZOFRAN-ODT) 4 mg disintegrating tablet Active polyethylene glycol (MIRALAX) 17 gram packet Take 17 g by mouth. Active potassium chloride 20 mEq tablet extended release Active senna (SENOKOT) 8.6 mg tablet Take 2 tablets (17.2 mg total) by mouth. Active sevelamer carbonate (RENVELA) 800 mg tablet Take 2 tablets (1,600 mg total) by mouth. Active simethicone (MYLICON) 80 mg chewable tablet Chew 1 tablet (80 mg total). Active sodium zirconium cyclosilicate (Lokelma) 10 gram packet Take by mouth. Activ e sucralfate (CARAFATE) 1 gram tablet Take 1 tablet (1 g total) by mouth. 024 2024 Active ursodioL (ACTIGALL) 300 mg capsule Take 2 capsules (600 mg total) by mouth. Active vitamin A 2,400 mcg capsule Active atorvastatin (LIPITOR) 20 mg tablet Take 1 tablet (20 mg total) by mouth. Active furosemide (LASIX) 80 mg tablet Take 1 tablet (80 mg total) by mouth. Active citalopram (CeleXA) 20 mg tablet Take 1 tablet (20 mg total) by mouth. Active multivit with iron,minerals (MULTI-VITAMINS WITH IRON ORAL) Take by mouth. Active pyridoxine HCl, vitamin B6, (VITAMIN B-6 ORAL) Take by mouth. Activ e CHOLECALCIFEROL, VITAMIN D3, ORAL Take by mouth. Active wheat dextrin 3 gram/3.8 gram powder Take 4 g by mouth. Active pantoprazole (PROTONIX) 40 mg EC tablet TAKE 1 TABLET BY MOUTH EVERY DAY 90 tablet 1 Active pantoprazole (PROTONIX) 40 mg EC tablet Take 1 tablet (40 mg total) by mouth 1 (one) time each day. 2024 Discontinued Active Problems Problem Noted Date Diagnosed Date [...] REMOVAL OTHER SURGICAL HISTORY 06/13/2021 Left PROCEDURE: FL CRTJ ARVEN FSTL XCP DIR ARVEN ANAST NONAUTOG GRF; COMMENT: Left axillary loop arteriovenous [...] Annual BMP Blood Test 01/23/2022 Influenza Vaccine (Season Ended) 2024 HIB Vaccines Aged Out No longer eligi [...] age to complete this topic Meningococcal B Vaccine Aged Out No l onger eligible based on patient's age to complete this topic RSV Immunization Patients Un martha 20 months Aged Out No longer eligible b ased on patient's age to complete this topic Varicella Vaccines Aged Out No longer eligible based on patient's age to complete this topic Insurance MEDICAID - [place] MEDICARE Advance Directives Documents on File Type Date Recorded Patient Stone [place]imney Mason Expl anation Health Care Decision (hx) 07/24/2023 [...] (hx) 12/16/2022 AD REED DIRECTIVE Care Teams Speeder Operator Relationship Specialty Start Date End Date Sam Lynch MD [address] [place] [address] [address] [place] PCP - General 10/25/22
--- OUTSIDE RECORDS SUMMARY | 2024-05-18 20:08 | XMS_ITS | Encounter Summary ---
Author Organization [facility] Address [address] [address] Phone Care Team Providers Care Window Shade Installer Name Role Phone Rozina Nicole MD Primary Care Provider [phone] Encounter Details Date Type Department Care Team ([facility] st Contact Info) Description 05/14/2024 Treatment [facility] [address] [address] Yamileth Varghese MD [address] [address] End stage renal disease; Dependence [...] Dialysis Note - Yamileth Varghese MD - 05/14/2024 12:00 AM EDT Patient: Meliza Perry : 1970 Note Type: Dialysis Rounds-Comp Service Date: 05/14/2024 This patient was personally seen for a complete visit as part of routine monthly dialysis care for end stage renal disease. Attending Heel Seat Pounder: YAMILETH VARGHESE Dialysis Location: [facility] Schedule: Shift: OVERVIEW Patient is stable. ADEQUACY ASSESSMENT Kt/V, Natural Log 1.21 (04/30/24) [...] 04/09/24 doing ok 04/14/24 stable 05/04/24 05/05/24 05/14/24 stable 03/22/24 doing better w GI issues [...] off Signed by: YAMILETH VARGHESE MD on 05/14/2024 at 06:01:24 PM Transcribed by: YAMILETH VARGHESE MD on 05/14/2024 at 06:01:24 PM documented in this encounter Plan of Treatment Not on file documented as of this encounter Visit Diagnoses Diagnosis End stage renal disease Dependence on renal dialysis documented in this encounter Care Teams Window Shade Installer Relationship Specialty Start Date End Date Rozina Nicole MD [address] [place], [place] PCP - General 02/21/20 documented as of this encounter
--- OUTSIDE RECORDS SUMMARY | 2024-05-18 20:09 | XMS_ITS | Encounter Summary ---
Author Organization [facility] Address [address] [facility] [address] [place] [address] Phone Care Team Providers Care Scaffolder Name Role Phone Rozina Nicole MD Primary Care Provider [phone] Reason for Visit * Reason Onset Date Comments Med Refill 11/23/2020 Encounter Details Date Type Department Care Team (Late st Contact Info) Description 11/23/2020 Refill [facility] [address] [facility] [address] [place] [phone] Nkechi Salvador, ALEX [address] [facility] [address] [place] [address] Social History Tobacco Use Types [...] on filedocumented in this encounter Care Teams Scaffolder Relationship Specialty Start Date End Date Rozina Nicole MD [address] [place], [place] PCP - General 02/21/20 documented as of this encounter
--- OUTSIDE RECORDS SUMMARY | 2024-05-18 20:09 | XMS_ITS | Clinical Summary ---
Author Organization [facility] Address [address] [place] [address] [place] [address] Phone Care Team Providers Care Grinder Name Role Phone Rozina Nicole MD Primary Care Provider [phone] Allergies Active Allergy Reactions Criticality Noted Date [...] ureter 05/02/2020 05/02/2020 [facility] 09/07/2020 Encounters Date Type Department Care Team Description 05/14/2024 Treatment [facility] [address] [phone] Jon Wang MD End stage renal disease; Dependence on renal dialysis 05/08/2024 Treatment [facility] [address] [phone] Jon Wang MD End stage renal disease; Dependence on renal dialysis 05/05/2024 Treatment [facility] [address] [phone] Jon Wang MD End stage renal disease; Dependence on renal dialysis 05/04/2024 Treatment [facility] [address] [phone] Kwesi Gonzalez MD End stage renal disease; Dependence on renal dialysis 04/14/2024 Treatment [facility] [address] [phone] Jon Wang MD End stage renal disease; Dependence on renal dialysis 04/09/2024 Treatment [facility] [address] [phone] Jon Wang MD End stage renal disease; Dependence on renal dialysis 04/02/2024 Treatment [facility] [address] [phone] Jon Wang MD 03/31/2024 Treatment [facility] [address] [phone] Jon Wang MD 03/22/2024 Orders Only [facility] [address] [phone] Jon Wang MD 03/22/2024 Treatment [facility] [address] [phone] Jon Wang MD 03/03/2024 Treatment [facility] [address] [phone] Jon Wang MD from Last 3 Months [...] Colorectal Cancer Screening: Sigmoidoscopy 07/26/2020 Influenza Vaccine (Season Ended) 2024 Procedures Procedure Name Priority Date/Time Associated Diagnosis Comments HEMOGLOBIN A1C Routine 05/14/2024 3:00 AM EDT HEPATITIS B SURFACE ANTIGEN W/REFL CONFIRM Routine 05/14/2024 3:00 AM EDT FERRITIN Routine 05/14/2024 3:00 AM EDT TRANSFERRIN SATURATION Routine 3:00 AM EDT PROTEIN, TOTAL, SERUM Routine 05/14/2024 3:00 AM EDT MAGNESIUM Routine 05/14/2024 3:00 AM EDT ELECTROLYTE PANEL Routine 05/14/2024 3:0 0 AM EDT LACTATE DEHYDROGENASE Routine 05/14/2024 3:00 AM EDT LIPID PANEL Routine 05/14/2024 3:00 AM EDT LIH (HC) Routine 05/14/2024 3:00 AM EDT GLUCOSE, RANDOM Routine 05/14/2024 3:00 AM EDT CREATININE, SERUM Routine 05/14/2024 3:0 0 AM EDT BILIRUBIN, TOTAL Routine 05/14/2024 3:00 AM EDT AST Routine 05/14/2024 3:00 AM EDT ALT Routine 05/14/2024 3:00 AM EDT ALKALINE PHOSPHATASE Routine 05/14/2024 3:00 AM EDT CALCIUM PHOSPHORUS PRODUCT, ADJUSTED (HC) Routine 05/14/2024 3:00 AM EDT PTH, INTACT Routine 05/14/2024 3:00 AM EDT CBC AND DIFFERENTIAL Routine 05/14/2024 3:00 AM EDT KT/V NATURAL LOG, URR (HC) Routine 05/14/2024 3:00 AM EDT HEMOGLOBIN Routine 05/05/2024 3:00 AM EDT LIH [...] from Last 3 Months Results * LIH (05/14/2024 3:00 AM EDT) Only the most recent of17 resultswithin the time period is included. Lipemia Normal Normal [facility] Icterus Normal Normal [facility] Hemolysis Normal Normal [facility] 05/14/2024 3:00 AM EDT 05/15/2024 1:41 PM EDT us Jon Wang MD LAB [id number] SOLICITED RESULTS Final Result Performing Organization Address [facility] de Phone Number APS [facility] [address] [place] [address] * (ABNORMAL) Kt/V Natural Log, URR (05/14/2024 3:00 AM EDT) Only the most recent of15 resultswithin the time period is included. Treatment Time 117 min [facility] Pre-Weight, lb 62.2 kg [facility] Post-Weight, lb 61.1 kg [facility] Ultrafiltration Rate 9 <=13 mL/kg/hr [facility] Comment: Recommend achieving Ultrafiltration Rate (UFR) <=10 mL/kg/hr References: Terrell GARCIA et al. Kidney Int. 2010; 79(2):250-257 BUN Post Dialysis 24 7 - 25 mg/dL [facility] BUN 66(H) 7 - 25 mg/dL [facility] UREA REDUCTION RATIO (%) 64(L) >=65 % [facility] Kt/V Natural Log 1.10(L) >=1.2 [facility] 05/14/2024 3:00 AM EDT 05/15/2024 1:30 PM EDT us Jon Wang MD LAB [id number] SOLICITED RESULTS Final Result Performing Organization Address [facility] de Phone Number APS [facility] [address] [place] [address] * (ABNORMAL) Calcium Phosphorus Product, Adjusted (05/14/2024 3:00 AM EDT) Only the most recent of4 resultswithin the time period is included. Albumin 3.6 3.6 - 5.4 g/dL [facility] Calcium 8.8 8.6 - 10.3 mg/dL [facility] Phosphorus, Serum 6.2(H) 2.5 - 5.0 mg/dL [facility] Ca*PO4 54.6 <55.0 mg2/dL2 [facility] Calcium, Adjusted Total 9.1 8.6 - 10.3 mg/dL [facility] CA*PO4 CORRCTD 56.4(A) <55.0 mg2/dL2 [facility] 05/14/2024 3:00 AM EDT 05/15/2024 1:41 PM EDT Jon Wang MD LAB [id number] SOLICITED RESULTS Final Result Performing Organization Address [facility] Co de Phone Number APS [facility] [address] [place] [address] * Hepatitis B Surface Ag w/Reflex Confirmation (05/14/2024 3:00 AM EDT) Only the most recent of4 resultswithin the time period is included. Pathologist [facility] Hep B Surface Antigen Negative Negative [facility] 05/14/2024 3:00 AM EDT 05/15/2024 1:41 PM EDT Jon Wang MD LAB BLOOD ORDERABLES Final Re sult Performing Organization Address [facility] de Phone Number APS [facility] [address] [place] [address] * (ABNORMAL) TSAT (05/14/2024 3:00 AM EDT) Only the most recent of4 resultswithin the time period is included. Pathologist [facility] Iron 68 50 - 170 ug/dL [facility] Transferrin 140(L) 250 - 380 mg/dL [facility] TIBC 196(L) 211 - 406 ug/dL [facility] Iron Saturation (TSat) 35 22 - 52 % [facility] 05/14/2024 3:00 AM EDT 05/15/2024 1:41 PM EDT Jon Wang MD LAB BLOOD ORDERABLES Final Re sult Performing Organization Address [facility] de Phone Number [facility]PS [facility] [address] [place] [address] * (ABNORMAL) CBC and Differential (05/14/2024 3:00 AM EDT) Only the most recent of3 resultswithin the time period is included. [facility] DIFFERENTIAL MANUAL, 2 Not Indicated [facility] White Blood Cells 4.4 4.0 - 10.0 K/uL [facility] RBC 2.70(L) 3.93 - 5.22 M/uL [facility] Hgb 8.5(L) 11.2 - 15.7 g/dL [facility] Hemoglobin x 3 25.5(L) 33.6 - 47.1 g/dL [facility] Hematocrit 25.7(L) 34.1 - 44.9 % [facility] MCV 95.2(H) 79.4 - 94.8 fL [facility] MCH 31.5 25.6 - 32.2 pg [facility] MCHC 33.1 32.2 - 35.5 g/dL [facility] Platelets 224 182 - 369 K/uL [facility] RDW 13.4 11.7 - 14.4 % [facility] Neutrophils Relative 60.5 34.0 - 71.1 % [facility] Lymphocytes Relative 29.1 19.3 - 51.7 % [facility] Monocytes 7.0 4.7 - 12.5 % [facility] Eosinophils Relative 2.5 0.7 - 5.8 % [facility] Basophils Relative 0.7 0.1 - 1.2 % [facility] Immature Granulocytes 0.2 0.0 - 1.0 % [facility] 05/14/2024 3:00 AM EDT 05/15/2024 1:53 PM EDT Jon Wang MD LAB BLOOD ORDERABLES Final Re sult Performing Organization Address [facility] de Phone Number [facility]PS [facility] [address] [place] [address] * (ABNORMAL) ALT (05/14/2024 3:00 AM EDT) Only the most recent of4 resultswithin the time period is included. ALT (SGPT) 8(L) 10 - 49 U/L [facility] 05/14/2024 3:00 AM EDT 05/15/2024 1:41 PM EDT Jon Wang MD LAB BLOOD ORDERABLES Final Re sult Performing Organization Address [facility] Co de Phone Number [facility]PS [facility] [address] [place] [address] * AST (05/14/2024 3:00 AM EDT) Only the most recent of4 resultswithin the time period is included. AST (SGOT) 12 <34 U/L [facility] 05/14/2024 3:00 AM EDT 05/15/2024 1:41 PM EDT Jon Wang MD LAB BLOOD ORDERABLES Final Re sult Performing Organization Address [facility] Co de Phone Number [facility] [address] [place] [address] * (ABNORMAL) Protein, total (05/14/2024 3:00 AM EDT) Only the most recent of4 resultswithin the time period is included. Total Protein 5.9(L) 6.4 - 8.9 g/dL [facility] 05/14/2024 3:00 AM EDT 05/15/2024 1:41 PM EDT Jon Wang MD LAB BLOOD ORDERABLES Final Re sult Performing Organization Address [facility] Co de Phone Number APS [facility] [address] [place] [address] * (ABNORMAL) Alkaline phosphatase (05/14/2024 3:00 AM EDT) Only the most recent of4 resultswithin the time period is included. Alkaline Phosphatase 129(H) 46 - 116 U/L [facility] 05/14/2024 3:00 AM EDT 05/15/2024 1:41 PM EDT Jon Wang MD LAB BLOOD ORDERABLES Final Re sult Performing Organization Address [facility] Co de Phone Number [facility] [address] [place] [address] * (ABNORMAL) PTH, Intact (05/14/2024 3:00 AM EDT) Only the most recent of5 resultswithin the time period is included. PTH, Intact 1,036(H) 160 - 721 pg/mL [facility] Comment: Suggested (KDIGO) ESRD maintenance range is two to nine times the upper normal limit (80.1 pg/mL) for the laboratory. 05/14/2024 3:00 AM EDT 05/15/2024 1:41 PM EDT Jon Wang MD LAB BLOOD ORDERABLES Final Re sult Performing Organization Address [facility] de Phone Number [facility] [address] [place] [address] * Magnesium (05/14/2024 3:00 AM EDT) Only the most recent of4 resultswithin the time period is included. Magnesium 2.2 1.9 - 2.7 mg/dL [facility] 05/14/2024 3:00 AM EDT 05/15/2024 1:41 PM EDT Jon Wang MD LAB BLOOD ORDERABLES Final Re sult Performing Organization Address [facility] de Phone Number [facility]PS [facility] [address] [place] [address] * Lactate dehydrogenase (05/14/2024 3:00 AM EDT) Only the most recent of4 resultswithin the time period is included. LDH 150 120 - 246 U/L [facility] 05/14/2024 3:00 AM EDT 05/15/2024 1:41 PM EDT Jon Wang MD LAB BLOOD ORDERABLES Final Re sult Performing Organization Address [facility] de Phone Number [facility] [address] [place] [address] * Hemoglobin A1c (05/14/2024 3:00 AM EDT) Only the most recent of2 resultswithin the time period is included. Hemoglobin A1C 5.0 <5.7 % [facility] Comment: Methodology: Ion-exchange high-performance liquid chromatography (HPLC) HbA1c (NGSP %) ?Suggested Diagnosis >6.4% ? Diabetic 5.7-6.4% ?Pre-Diabetic <5.7% ? Non-Diabetic Diabetic Glucose Control Evaluation: Therapeutic action suggested at >8.0% ADA recommends a glycemic goal of <7.0% 05/14/2024 3:00 AM EDT 05/15/2024 1:53 PM EDT Jon Wang MD LAB BLOOD ORDERABLES Final Re sult Performing Organization Address [facility] de Phone Number [facility] [address] [place] [address] * Glucose, random (05/14/2024 3:00 AM EDT) Only the most recent of4 resultswithin the time period is included. Glucose 98 74 - 109 mg/dL [facility] 05/14/2024 3:00 AM EDT 05/15/2024 1:41 PM EDT Jon Wang MD LAB BLOOD ORDERABLES Final Re sult Performing Organization Address [facility] de Phone Number [facility] [address] [place] [address] * (ABNORMAL) Ferritin (05/14/2024 3:00 AM EDT) Only the most recent of4 resultswithin the time period is included. Ferritin 657(H) 10 - 291 ng/mL [facility] 05/14/2024 3:00 AM EDT 05/15/2024 1:41 PM EDT Jon Wang MD LAB BLOOD ORDERABLES Final Re sult Performing Organization Address [facility] de Phone Number [facility] [address] [place] [address] * (ABNORMAL) Creatinine, serum (05/14/2024 3:00 AM EDT) Only the most recent of4 resultswithin the time period is included. Creatinine 7.11(H) 0.55 - 1.02 mg/dL [facility] 05/14/2024 3:00 AM EDT 05/15/2024 1:41 PM EDT Jon Wang MD LAB BLOOD ORDERABLES Final Re sult Performing Organization Address [facility] de Phone Number [facility] [address] [place] [address] * (ABNORMAL) Bilirubin, total (05/14/2024 3:00 AM EDT) Only the most recent of4 resultswithin the time period is included. Total Bilirubin <0.2(L) 0.3 - 1.2 mg/dL [facility] 05/14/2024 3:00 AM EDT 05/15/2024 1:41 PM EDT Jon Wang MD LAB BLOOD ORDERABLES Final Re sult Performing Organization Address [facility] de Phone Number [facility] [address] [place] [address] * (ABNORMAL) Lipid panel (05/14/2024 3:00 AM EDT) Only the most recent of2 resultswithin the time period is included. Cholesterol 155 <200 mg/dL [facility] Comment: Optimal: ?<200 Borderline: ? 200-239 Higher Risk: ?>239 Triglycerides 130 <150 mg/dL [facility] Comment: Optimal: ?<150 Borderline High: ??150-199 High: ? 200-499 Very High: ?>499 HDL 47(A) >59 mg/dL [facility] Comment: Desirable: ?>59 Higher Risk: ?<40 LDL-Calc 82 <100 mg/dL [facility] Comment: Optimal: ?<100 Above Optimal: ?100-129 Borderline High: ??130-159 High: ? 160-189 Very High: ?>189 VLDL Cholesterol Art 26 <30 mg/dL [facility] Comment: Optimal: ?<30 Borderline High: ??30-39 High: ? 40-99 Very High: ?>99 Chol/HDL Ratio 3.3(A) <3.3 [facility] Comment: Optimal: ?<3.3 Higher Risk: ?>6.2 05/14/2024 3:00 AM EDT 05/15/2024 1:41 PM EDT Jon Wang MD LAB BLOOD ORDERABLES Final Re sult Performing Organization Address [facility] de Phone Number [facility] [address] [place] [address] * (ABNORMAL) Electrolyte panel (05/14/2024 3:00 AM EDT) Only the most recent of4 resultswithin the time period is included. Sodium 132(L) 136 - 145 mEq/L [facility] Potassium 4.3 3.4 - 5.0 mEq/L [facility] Chloride 99 98 - 107 mEq/L [facility] Bicarbonate (CO2) 21 21 - 31 mEq/L [facility] Anion Gap 12 3 - 14 mEq/L [facility] 05/14/2024 3:00 AM EDT 05/15/2024 1:41 PM EDT Jon Wang MD LAB BLOOD ORDERABLES Final Re sult Performing Organization Address [facility] Co de Phone Number [facility]PS [facility] [address] [place] [address] * (ABNORMAL) Hemoglobin (05/05/2024 3:00 AM EDT) Only the most recent of2 resultswithin the time period is included. Hgb 10.2(L) 11.2 - 15.7 g/dL [facility] Hemoglobin x 3 30.6(L) 33.6 - 47.1 g/dL [facility] 05/05/2024 3:00 AM EDT 05/06/2024 12:47 PM EDT Jon Wang MD LAB BLOOD ORDERABLES Final Re sult Performing Organization Address [facility] Co de Phone Number [facility] [address] [place] [address] * Calcium, Adjusted w Albumin (04/30/2024 3:00 AM EDT) Calcium 8.8 8.6 - 10.3 mg/dL [facility] Albumin 3.8 3.6 - 5.4 g/dL [facility] Calcium, Adjusted Total 9.0 8.6 - 10.3 mg/dL [facility] 04/30/2024 3:00 AM EDT 05/01/2024 1:24 PM EDT Jon Wang MD LAB BLOOD ORDERABLES Final Re sult Performing Organization Address [facility] de Phone Number [facility] [address] [place] [address] * (ABNORMAL) Hemoglobin and hematocrit (04/30/2024 3:00 AM EDT) Only the most recent of3 resultswithin the time period is included. Hgb 9.7(L) 11.2 - 15.7 g/dL [facility] Hematocrit 29.4(L) 34.1 - 44.9 % [facility] Hemoglobin x 3 29.1(L) 33.6 - 47.1 g/dL [facility] 04/30/2024 3:00 AM EDT 05/01/2024 1:04 PM EDT Jon Wang MD LAB BLOOD ORDERABLES Final Re sult Performing Organization Address [facility] de Phone Number [facility] [address] [place] [address] * (ABNORMAL) Phosphorus (04/30/2024 3:00 AM EDT) Only the most recent of2 resultswithin the time period is included. Phosphorus, Serum 5.5(H) 2.5 - 5.0 mg/dL [facility] 04/30/2024 3:00 AM EDT 05/01/2024 1:24 PM EDT Jon Wang MD LAB BLOOD ORDERABLES Final Re sult Performing Organization Address [facility] de Phone Number [facility] [address] [place] [address] * Potassium (04/09/2024 3:00 AM EST) Only the most recent of5 resultswithin the time period is included. Potassium 4.7 3.4 - 5.0 mEq/L [facility] 04/09/2024 3:00 AM EST 04/10/2024 1:32 PM EST Jon Wang MD LAB BLOOD ORDERABLES Final Re sult Performing Organization Address [facility] de Phone Number [facility] [address] [place] [address] * (ABNORMAL) Creatinine clearance, urine, 24 hour (03/31/2024 3:00 AM EST) Patient Height (FT) 150.0 cm [facility] Dry Weight Not Received kg [facility] Creatinine 6.34(H) 0.55 - 1.02 mg/dL [facility] 03/31/2024 3:00 AM EST 04/02/2024 12:56 PM EST Jon Wang MD LAB URINE ORDERABLES Final Re sult Performing Organization Address [facility] de Phone Number [facility] [address] [place] [address] * Albumin (02/25/2024 3:00 AM EST) Pathologist [facility] Albumin 3.7 3.6 - 5.4 g/dL [facility] 02/25/2024 3:00 AM EST 02/26/2024 2:29 PM EST Jon Wang MD LAB BLOOD ORDERABLES Final Re sult Performing Organization Address [facility] de Phone Number [facility] [address] [place] [address] * Confirmation Test HCV (02/20/2024 3:00 AM EST) Pathologist [facility] Hep C Ab Confirmation Not needed [facility] 02/20/2024 3:00 AM EST 02/23/2024 1:57 PM EST Jon Wang MD LAB BLOOD ORDERABLES Final Re sult Performing Organization Address [facility] de Phone Number [facility] [address] [place] [address] * Collection Date (02/20/2024 3:00 AM EST) Pathologist [facility] Collection Date See Comment [facility] Comment: Patient sample received may exceed specimen stability, based on the collection date electronically provided. ??When reviewing patient results, verify collection information and consider specimen stability before acting on any critical or panic results. 02/20/2024 3:00 AM EST Jon Wang MD LAB [id number] SOLICITED RESULTS Final Result Performing Organization Address [facility] de Phone Number APS [facility] [address] [place] [address] * HEPATITIS C ABS W/REFLEX RNA DETECTR (02/20/2024 3:00 AM EST) Pathologist [facility] Hep C Virus Ab Non-Reacti ve Non-Reacti ve [facility] 02/20/2024 3:00 AM EST 02/23/2024 1:26 PM EST Jon Wang MD LAB [id number] SOLICITED RESULTS Final Result Performing Organization Address [facility] de Phone Number [facility]PS [facility] [address] [place] [address] * Aluminum level (02/20/2024 3:00 AM EST) Aluminum 4 1 - 20 ug/L [facility] 02/20/2024 3:00 AM EST 02/23/2024 1:22 PM EST Jon Wang MD LAB BLOOD ORDERABLES Final Re sult Performing Organization Address [facility] de Phone Number [facility] [address] [place] [address] * Hepatitis B Surface Antibody (02/20/2024 3:00 AM EST) Hep B Surface Antibody >1,000 mIU/mL [facility] Comment: Interpretation: <10: No Immunity >=10: Probable Immunity 02/20/2024 3:00 AM EST 02/23/2024 1:26 PM EST Jon Wang MD LAB BLOOD ORDERABLES Final Re sult Performing Organization Address [facility] de Phone Number [facility] [address] [place] [address] * (ABNORMAL) CBC (02/20/2024 3:00 AM EST) [...] ORDERABLES Final Re sult Performing Organization Address [facility] Co de Phone Number [facility] [address] [place] [address] * (ABNORMAL) Uric Acid (02/20/2024 3:00 AM EST) Uric Acid 9.6(H) 2.3 - 6.6 mg/dL [facility] 02/20/2024 3:00 AM EST 02/23/2024 1:26 PM EST Jon Wang MD LAB BLOOD ORDERABLES Final Re sult Performing Organization Address [facility] de Phone Number [facility] [address] [place] [address] from Last 3 Months Insurance [place] Care Teams Grinder Relationship Specialty Start Date End Date Rozina Nicole MD [address] [place], [place] PCP - General 02/21/20
[2024-05-18] MEDS: Gabapentin 400 MG CAPSULE PO (20:15)
[2024-05-18] MEDS: ondansetron HCL 4 MG/2 ML VIAL IVPUSH (20:15)
[2024-05-18 20:21] LABS: Glucose, Whole Blood 130 mg/dL (60-115)
[2024-05-18 20:34] LABS: Magnesium 1.9 mg/dL (1.6-2.6)
[2024-05-18 21:04] VITALS: RESP 18
[2024-05-18] MEDS: Morphine Sulfate 4 MG/ML CARTRIDGE IVPUSH (21:04)
[2024-05-18 21:07] VITALS: BP 135/70; PULSE 74; RESP 18; TEMP 36.5
[2024-05-18 21:24] VITALS: BP 124/78; PULSE 75; RESP 18; TEMP 36.6
--- NOTE | 2024-05-18 21:39 | PC.NURSE ---
initial 15 minutes of blood transfusion completed at this time, pt tolerating well, offers no complaints at this time. pt at risk for TACO, blood running at 75ml/hr.
[2024-05-18 21:59] VITALS: BP 132/72; PULSE 77; RESP 12; TEMP 36.6; O2SAT 100
[2024-05-18 22:06] LABS: Glucose, Whole Blood 81 mg/dL (60-115)
--- NOTE | 2024-05-18 22:06 | PC.NURSE ---
provider aware of pt poc, pt given food per provider request. pt tolerating well.
--- NOTE | 2024-05-18 23:13 | ED.GENADULT ---
HPI - General Adult General Chief complaint: Dizziness Stated complaint: Dizzy Time Seen by Provider: 05/18/24 19:42 History of Present Illness ED Provider: Morelia Holland PA-C HPI narrative: 53-year-old female with a history of recurrent GI bleeds due to gastric pouch ulcers followed by Dr Moody, ESRD on dialysis MWF followed by Dr Gonzalez, HLD, GERD, HTN, and chronic back pain, who presented to the ED with 3 days of melena. Patient states he was recently hospitalized and required transfusion. Over the past 3 days, she has noted black stool, and she has been dizzy and nauseous. Denies abdominal pain. No fevers. Related Data Home Medications ?Medication ?Instructions ?Recorded ?Confirmed ferrous sulfate 325 mg (65 mg 325 mg PO BID PRN Iron Levels 05/11/20 04/25/24 iron) tablet,delayed release cyanocobalamin (vitamin B-12) 1,000 mcg PO DAILY 10/17/20 04/25/24 1,000 mcg tablet midodrine 5 mg tablet 5 mg PO TID 03/25/23 04/25/24 acetaminophen 500 mg capsule 1,000 mg PO Q8H PRN Pain 08/10/23 04/25/24 (Mapap (acetaminophen)) fluticasone propionate 50 1 spray intranasal DAILY PRN 08/10/23 04/25/24 mcg/actuation nasal Allergy Symptoms spray,suspension [id number] 45 mg-folic 1 cap PO DAILY 08/10/23 04/25/24 acid 800 mcg-vit K 120 mcg capsule (Bariatric Multivitamins) parenteral amino acid 15% no.5 15 0.5 ea IV MOWEFR@0900 08/10/23 04/25/24 % combination no.5 intravenous solution (Clinisol SF) sucralfate 1 gram tablet 1 g PO BID 08/10/23 04/25/24 oxycodone 5 mg tablet 5 mg PO Q6H PRN pain 12/29/23 04/25/24 potassium chloride 20 mEq 20 meq PO DAILY 12/29/23 04/25/24 tablet,extended release pantoprazole 40 mg tablet,delayed 40 mg PO DAILY@0630 04/25/24 04/25/24 release Previous Rx's ?Medication ?Instructions ?Recorded melatonin 10 mg capsule 10 mg PO BEDTIME PRN sleep 90 days 06/26/23 #90 caps thiamine HCl (vitamin B1) 100 mg 100 mg PO DAILY 90 days #90 tabs 09/27/23 tablet vitamin A 2,400 mcg capsule 2,400 mcg PO DAILY 90 days #90 caps 02/05/24 citalopram 20 mg tablet 20 mg PO DAILY 90 days #90 tabs 03/18/24 ondansetron HCl 4 mg tablet 4 mg PO Q8H PRN nausea and 04/27/24 vomiting #15 tabs oxycodone 5 mg tablet 5 mg PO Q8H PRN pain #15 tabs 04/27/24 carvedilol 6.25 mg tablet 6.25 mg PO BID 90 days #180 tabs 04/28/24 ergocalciferol (vitamin D2) 1,250 1,250 mcg PO QWEEK 30 days #5 caps 04/28/24 mcg (50,000 unit) capsule (Vitamin D2) gabapentin 400 mg capsule 400 mg PO BID 90 days #180 caps 04/28/24 pyridoxine (vitamin B6) 50 mg 50 mg PO DAILY 90 days #90 tabs 04/28/24 tablet sevelamer carbonate 800 mg tablet 1,600 mg (2 x 800 mg) PO TIDWM 30 04/28/24 days #180 tabs ondansetron 4 mg disintegrating 4 mg PO Q8H PRN nausea and 05/11/24 tablet vomiting #10 tabs Allergies Allergy/AdvReac Type Severity Reaction Status Date / Time ibuprofen Allergy Severe Unknown Verified 05/18/24 19:11 nifedipine Allergy Intermediate hives, leg Verified 05/18/24 19:11 edema Review of Systems Review of Systems: Yes all other systems are reviewed and are negative Constitutional: Constitutional: Reports fatigue and Denies fever(s) Cardiovascular: Cardiovascular: Denies chest pain and Denies dyspnea Respiratory: Respiratory: Denies dyspnea Gastrointestinal: Gastrointestinal: Denies abdominal pain, Reports melena and Reports nausea Endocrine: Endocrine: Reports fatigue PMFSH Past Medical History Attestation statement: The following information was validated with the patient. 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 Lumbar back pain with radiculopathy affecting left lower extremity Physical exam (~02/14/21) Peritoneal dialysis catheter in place Polyarthralgia Dyslipidemia Family history of ovarian cancer Abnormal mammogram of right breast Angina pectoris syndrome Chest pain Constipation Nephrosclerosis Renal interstitial fibrosis Obesity (BMI 30-39.9) Back pain GERD (gastroesophageal reflux disease) History of headache HTN (hypertension) Surgical History S/P arteriovenous (AV) graft placement History of sleeve gastrectomy Fistula Hx of colonoscopy Hx of hysterectomy Hx of tubal ligation History of endometrial ablation Family History Family History Father Asthma Mother Asthma Hypertension Ovarian cancer Maternal Grandfather Myocardial infarction Paternal Grandmother Stroke Social History Social History Household Members: Family Housing: Apartment Do you presently have visiting nurse or other home services: No (Services to be started) Alcohol intake: current Alcohol intake frequency: holidays/special occasions only Alcohol type: beer Comment: Patient doesn't want bed alarm on Patient Tobacco Use Status: Current everyday Tobacco user Tobacco use type: Cigarette Cigarette Packs Per Day: 1 Cigarettes Per Day: 20.0 Years Smoked: 10+ Smoked in Last 30 Days: No e-Cigarette/Vaping Use: Currently Using Second Hand Smoke Exposure: No Use of substances other than those prescribed or required for medical reasons: No Advance Directives: Yes Advance Directives on File: Yes Advance Directives Date on File: 04/27/20 Do you have a plan to hurt others: No Plan Patient : No service: No Current occupational status: employed Cognitive needs: No Hearing needs: No Vision needs: Yes (reading glasses) Physical Exam ED Vital Signs: Vital Signs - 24 hr 05/18/24 19:08 05/18/24 20:00 05/18/24 21:04 Temperature 97.7 F Pulse Rate 70 76 Respiratory Rate 17 15 18 Blood Pressure 122/64 121/60 Pulse Oximetry 100 100 Oxygen Delivery Method Room Air Room Air 05/18/24 21:07 05/18/24 21:24 05/18/24 21:59 Temperature 97.7 F 97.8 F 97.8 F Pulse Rate 74 75 77 Respiratory Rate 18 18 12 Blood Pressure 135/70 124/78 132/72 Pulse Oximetry 100 Oxygen Delivery Method Room Air 05/19/24 00:00 Temperature 98.1 F Pulse Rate 80 Respiratory Rate 12 Blood Pressure 97/55 L Pulse Oximetry 99 Oxygen Delivery Method Room Air BMI result Body Mass Index 24.1 Const Other: Alert appears older than stated age Orientation/consciousness: patient oriented x3 Resp Effort & Inspection: normal respiratory effort Cardio Other: Normal peripheral perfusion GI Other: Abdomen is soft, nontender nondistended, stool is brown no melena Skin Other: Warm dry no rash Neuro General: patient oriented x3, gait normal, no focal motor deficits and CN's II-XI intact bilaterally Psych Other: Cooperative Course Reevaluation(s) Reevaluation #1: sugar dropped again to 81, we are encouraging the patient to eat Consultations Consultation #1: Attempted to admit the patient, Dr. Larsen wants GI and surgical consult, and chart reviewed with the patient's last presentation, there was discussion about surgical intervention. His concern is that the former surgery would potentially not occur here, the maybe she requires transfer, he does not want to admit the patient if she is going to be transferred. We will be paging Dr. Murrell and Dr. Magana who now Time: 00:16 Consultation #2: Dr. Murrell just asked that the patient was being transfused and received a PPI, she did. The only other recommendation was for surgical consult in the morning Medications Administered Discontinued Medications Generic Name Dose Route Start Last Admin Trade Name Freq PRN Reason Stop Dose Admin Dextrose 25 gm 05/18/24 19:42 05/18/24 19:45 Dextrose 50 % 25 Gm/50 Ml Syringe IVPUSH 05/18/24 19:43 25 gm ONCE ONE Administration Gabapentin 400 mg 05/18/24 20:07 05/18/24 20:15 Gabapentin 400 Mg Capsule PO 05/18/24 20:08 400 mg ONCE ONE Administration Morphine Sulfate 4 mg 05/18/24 21:00 05/18/24 21:04 Morphine Sulfate 4 Mg/Ml Cartridge IVPUSH 05/18/24 21:01 4 mg ONCE ONE Administration Protocol Ondansetron HCl 4 mg 05/18/24 20:07 05/18/24 20:15 Ondansetron Hcl 4 Mg/2 Ml Vial IVPUSH 05/18/24 20:08 4 mg ONCE ONE Administration Pantoprazole Sodium 80 mg 05/19/24 00:08 05/19/24 00:12 Pantoprazole Sodium 40 Mg/10 Ml Vial IVPUSH 05/19/24 00:09 80 mg ONCE ONE Administration Potassium Chloride 40 meq 05/18/24 23:18 05/19/24 00:10 Potassium Chloride Packet 20 Meq Packet PO 05/18/24 23:19 40 meq ONCE ONE Administration Medical Decision Making Medical Decision Making MDM Narrative: 53-year-old female with a history of recurrent GI bleeds due to gastric pouch ulcers followed by Dr Moody, ESRD on dialysis MWF followed by Dr Gonzalez, HLD, GERD, HTN, and chronic back pain, who presented to the ED with 3 days of melena. Patient states he was recently hospitalized and required transfusion. Over the past 3 days, she has noted black stool, and she has been dizzy and nauseous. Denies abdominal pain. No fevers. Problem: Recurrent GI bleed, end-stage renal disease History: Per patient I have considered the following differential diagnoses: Anemic, GI bleed, viral syndrome, electrolyte abnormality Plan: Incidentally, patient is found to be hypoglycemic, we will give 25 g of dextrose. She is not diabetic, I suspect this is from her renal failure. Screening labs were already in process, she is also critically anemic, we will be adding a type and screen and blood products. I obtained a guaiac. She will be admitted to the hospital. I have independently reviewed the following tests: Labs: No leukocytosis, critically anemic 6.9 and 20.2, potassium is 3, magnesium is 1.9, her blood sugars 56, viral panel negative, guaiac-positive Lab Data 05/18/24 19:19 05/18/24 19:19 Labs: Lab Results 05/18/24 05/18/24 05/18/24 Range/Units 19:19 19:57 20:18 WBC 5.2 (4.8-10.8) X10*3/uL RBC 2.16 L D (4.20-5.50) X10*6/uL Hgb 6.9 L* D (12.0-16.0) g/dl Hct 20.2 L* D (37.0-47.0) % MCV 93.5 (80.0-98.0) fL MCH 31.9 (27.0-33.0) pg MCHC 34.2 (31.0-35.0) g/dl RDW 13.8 (11.0-16.0) % Plt Count 232 (160-400) X10*3/uL MPV 9.3 L (9.4-12.3) fL Immature Gran % (Auto) 0.6 H (0.0-0.4) % Neut % (Auto) 43.1 L (45-73) % Lymph % (Auto) 41.6 H (20-40) % [place] % (Auto) 11.0 (2-11) % Eos % (Auto) 3.3 (0-4) % Baso % (Auto) 0.4 (0-2) % Lymph # (Auto) 2.2 (1.2-4.9) X10*3/uL [place] # (Auto) 0.6 (0.1-1.2) X10*3/uL Eos # (Auto) 0.2 (0.0-0.4) X10*3/uL Baso # (Auto) 0.0 (0.0-0.2) X10*3/uL Abs Immat Gran (auto) 0.03 (0.00-0.03) X10*3/uL Absolute Neuts (auto) 2.2 (2.0-8.3) x10*3/uL Absolute Nucleated RBC 0.000 (0.0-0.012) X10*3/uL Nucleated RBC % (auto) 0.0 (0.0-0.2) /100WBC Sodium 134 L (135-145) mmol/L Potassium 3.0 L D (3.3-5.1) mmol/L Chloride 99 (96-108) mmol/L Carbon Dioxide 26 (22-29) mmol/L Anion Gap 12 (12-20) BUN 37 H (9-16) mg/dL Creatinine 4.84 H* (0.5-1.4) mg/dL Estim Creat Clear Calc 12.2 Estimated GFR 9 POC Glucose 130 H (60-115) mg/dL Random Glucose 56 L* (60-115) mg/dL Calcium 8.5 D (8.4-10.2) mg/dL Magnesium 1.9 (1.6-2.6) mg/dL Total Bilirubin 0.4 (0.0-1.0) mg/dL AST 17 (5-31) U/L ALT 8 (0-31) U/L Alkaline Phosphatase 98 (39-117) U/L Troponin I High Sens 4.4 (<3.5-17.0) ng/L Total Protein 5.4 L (6.5-8.0) g/dL Albumin 3.1 L (3.5-5.0) g/dL Lipase 45 (8-78) U/L Stool Occult Blood POSITIVE (NEGATIVE) Influenza Type A (PCR) NEGATIVE (Negative) Influenza Type B (PCR) NEGATIVE (Negative) RSV RNA Qual (PCR) NEGATIVE (Negative) SARS-CoV-2 RNA (RT-PCR) NEGATIVE (Negative) Blood Type O Positive Antibody Screen NEGATIVE Crossmatch See Detail 05/18/24 05/19/24 Range/Units 22:00 00:06 WBC (4.8-10.8) X10*3/uL RBC (4.20-5.50) X10*6/uL Hgb (12.0-16.0) g/dl Hct (37.0-47.0) % MCV (80.0-98.0) fL MCH (27.0-33.0) pg MCHC (31.0-35.0) g/dl RDW (11.0-16.0) % Plt Count (160-400) X10*3/uL MPV (9.4-12.3) fL Immature Gran % (Auto) (0.0-0.4) % Neut % (Auto) (45-73) % Lymph % (Auto) (20-40) % [place] % (Auto) (2-11) % Eos % (Auto) (0-4) % Baso % (Auto) (0-2) % Lymph # (Auto) (1.2-4.9) X10*3/uL [place] # (Auto) (0.1-1.2) X10*3/uL Eos # (Auto) (0.0-0.4) X10*3/uL Baso # (Auto) (0.0-0.2) X10*3/uL Abs Immat Gran (auto) (0.00-0.03) X10*3/uL Absolute Neuts (auto) (2.0-8.3) x10*3/uL Absolute Nucleated RBC (0.0-0.012) X10*3/uL Nucleated RBC % (auto) (0.0-0.2) /100WBC Sodium (135-145) mmol/L Potassium (3.3-5.1) mmol/L Chloride (96-108) mmol/L Carbon Dioxide (22-29) mmol/L Anion Gap (12-20) BUN (9-16) mg/dL Creatinine (0.5-1.4) mg/dL Estim Creat Clear Calc Estimated GFR POC Glucose 81 147 H (60-115) mg/dL Random Glucose (60-115) mg/dL Calcium (8.4-10.2) mg/dL Magnesium (1.6-2.6) mg/dL Total Bilirubin (0.0-1.0) mg/dL AST (5-31) U/L ALT (0-31) U/L Alkaline Phosphatase (39-117) U/L Troponin I High Sens (<3.5-17.0) ng/L Total Protein (6.5-8.0) g/dL Albumin (3.5-5.0) g/dL Lipase (8-78) U/L Stool Occult Blood (NEGATIVE) Influenza Type A (PCR) (Negative) Influenza Type B (PCR) (Negative) RSV RNA Qual (PCR) (Negative) SARS-CoV-2 RNA (RT-PCR) (Negative) Blood Type Antibody Screen Crossmatch Discharge Plan Discharge Clinical Impression: Anemia, Hypoglycemia, Acute hypokalemia Patient Disposition: Admitted As Inpatient Print Language: Montenegrin
[2024-05-19] VITALS (10 sets, daily range): BP systolic 97–154; BP diastolic 55–81; PULSE 75–84; RESP 12–20; TEMP 36.4–36.9; O2SAT 97–100
[2024-05-19 00:10] LABS: Glucose, Whole Blood 147 mg/dL (60-115)
[2024-05-19] MEDS: Potassium Chloride Packet 20 MEQ PACKET 40 MEQ PO (00:10)
[2024-05-19] MEDS: Pantoprazole Sodium 40 MG/10 ML VIAL 80 MG IVPUSH (00:12)
--- NOTE | 2024-05-19 01:08 | PC.NURSE ---
second unit of blood started at this time, continuing at 75ml/hr due to overload risk. pt also assisted to bedside commode, with steady gait, denied dizziness and sob.
--- NOTE | 2024-05-19 02:03 | P.HPHOSP_ITS ---
History of Present Illness Date of Service: 05/19/24 Attending physician on admission: Aditya Larsen Chief Complaint: Melena Patient is a 53-year-old female with a past medical history significant for recurrent GI bleed secondary to gastric pouch ulcers fell by Dr. Moody, recent endoscopy by Dr. Urban suggestive of recurrent ulcers at GJ anastomosis with possible ischemia, ESRD on HD MWF, HLD, GERD, HTN and chronic back pain, who presented to the ED due to melena for the past 3 days with dizziness, nausea and upper abdominal discomfort. This feels exactly the same as previous history of GI bleeds. She denies any headache, fever, chills, vomiting. She has had some diarrhea. No upper respiratory symptoms or urinary tract symptoms. She reports that she has been eating and drinking over the past few days normally. Review of Systems 2 Constitutional: Constitutional: Denies body ache(s), Denies chills, Reports fatigue, Denies fever(s) and Denies headache(s) Eyes: Eyes: Denies change in vision and Denies photophobia ENT: Denies headache(s), Denies nasal congestion, Denies nasal discharge and Denies sore throat Cardiovascular: Cardiovascular: Denies chest pain, Denies rapid heart rate, Denies leg edema, Reports lightheadedness and Denies dyspnea Respiratory: Respiratory: Denies chest congestion, Denies cough, Denies dyspnea and Denies wheezing Gastrointestinal: Gastrointestinal: Reports melena, Denies hematochezia, Reports diarrhea, Reports nausea and Denies vomiting Genitourinary: Genitourinary: Denies hematuria, Denies dysuria and Denies urinary urgency Musculoskeletal: Musculoskeletal: Denies myalgias Integumentary/Breasts: Skin/Breast: Denies rash Neurologic: Denies confusion and Denies headache(s) Psychiatric: Psychiatric: Denies confusion Endocrine: Endocrine: Reports fatigue Hematologic/Lymphatic: Hematologic/Lymphatic: Denies easy bleeding and Denies easy bruising Allergic/Immunologic: Allergic/Immunologic: Denies wheezing [facility] Medical History (Updated 05/19/24 @ 02:15 by Noreen Galvez PA-C) ESRD on dialysis Smoker End stage chronic kidney disease Moderate major depression Physical exam Spondylosis without myelopathy or radiculopathy, lumbar region Spinal stenosis 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 Lumbar back pain with radiculopathy affecting left lower extremity Physical exam (~02/14/21) Peritoneal dialysis catheter in place Polyarthralgia Dyslipidemia Family history of ovarian cancer Abnormal mammogram of right breast Angina pectoris syndrome Chest pain Constipation Nephrosclerosis Renal interstitial fibrosis Obesity (BMI 30-39.9) Back pain GERD (gastroesophageal reflux disease) History of headache HTN (hypertension) Family History Father Asthma Mother Asthma Hypertension Ovarian cancer Maternal Grandfather Myocardial infarction Paternal Grandmother Stroke Surgical History S/P arteriovenous (AV) graft placement History of sleeve gastrectomy Fistula Hx of colonoscopy Hx of hysterectomy Hx of tubal ligation History of endometrial ablation Social History Household Members: Family Housing: Apartment Do you presently have visiting nurse or other home services: No (Services to be started) Alcohol intake: current Alcohol intake frequency: holidays/special occasions only Alcohol type: beer Comment: Patient doesn't want bed alarm on Patient Tobacco Use Status: Current everyday Tobacco user Tobacco use type: Cigarette Cigarette Packs Per Day: 1 Cigarettes Per Day: 20.0 Years Smoked: 10+ Smoked in Last 30 Days: No e-Cigarette/Vaping Use: Currently Using Second Hand Smoke Exposure: No Use of substances other than those prescribed or required for medical reasons: No Advance Directives: Yes Advance Directives on File: Yes Advance Directives Date on File: 04/27/20 Do you have a plan to hurt others: No Plan Patient : No service: No Current occupational status: employed Cognitive needs: No Hearing needs: No Vision needs: Yes (reading glasses) Meds Allergies Allergy/AdvReac Type Severity Reaction Status Date / Time ibuprofen Allergy Severe Unknown Verified 05/18/24 19:11 nifedipine Allergy Intermediate hives, leg Verified 05/18/24 19:11 edema Active Medications: Current Medications Acetaminophen (Acetaminophen 325 Mg Tablet) 650 mg PO Q6H PRN PRN Reason: Pain, Mild 1-3,fever,headache Calcium Carbonate (Calcium Carbonate 750 Mg Tab.Chew) 750 mg PO Q4H PRN PRN Reason: Heartburn Hydromorphone HCl (Hydromorphone Hcl 0.5 Mg/0.5 Ml Syringe) 0.25 mg IVPUSH Q4H PRN; Protocol PRN Reason: Pain, Moderate(Pain Scale 4-6) Magnesium Hydroxide (Milk Of Magnesia 30 Ml Oral.Susp) 30 ml PO DAILY PRN PRN Reason: Constipation Melatonin (Melatonin 3 Mg Tablet) 6 mg PO BEDTIME PRN PRN Reason: Insomnia Pantoprazole Sodium (Pantoprazole Sodium 40 Mg/10 Ml Vial) 40 mg IVPUSH BID@0630,1630 [facility] Sodium Chloride (0.9 % Sodium Chloride Flush 3 Ml Syringe) 3 ml IVFLUSH QSHIFT [facility] Home Medications ?Medication ?Instructions ?Recorded ?Confirmed ?Last Taken ?Type ferrous sulfate 325 mg (65 mg 325 mg PO BID PRN Iron Levels 05/11/20 04/25/24 04/23/24 History iron) tablet,delayed release cyanocobalamin (vitamin B-12) 1,000 mcg PO DAILY 10/17/20 04/25/24 04/23/24 History 1,000 mcg tablet midodrine 5 mg tablet 5 mg PO TID 03/25/23 04/25/24 04/23/24 History acetaminophen 500 mg capsule 1,000 mg PO Q8H PRN Pain 08/10/23 04/25/24 04/23/24 History (Mapap (acetaminophen)) fluticasone propionate 50 1 spray intranasal DAILY PRN 08/10/23 04/25/24 04/23/24 History mcg/actuation nasal Allergy Symptoms spray,suspension uvqvseaf-vzcjizun-asvp 45 mg-folic 1 cap PO DAILY 08/10/23 04/25/24 04/23/24 History acid 800 mcg-vit K 120 mcg capsule (Bariatric Multivitamins) parenteral amino acid 15% no.5 15 0.5 ea IV MOWEFR@0900 08/10/23 04/25/24 04/23/24 History % combination no.5 intravenous solution (Clinisol SF) sucralfate 1 gram tablet 1 g PO BID 08/10/23 04/25/24 04/23/24 History oxycodone 5 mg tablet 5 mg PO Q6H PRN pain 12/29/23 04/25/24 04/23/24 History potassium chloride 20 mEq 20 meq PO DAILY 12/29/23 04/25/24 04/23/24 History tablet,extended release pantoprazole 40 mg tablet,delayed 40 mg PO DAILY@0630 04/25/24 04/25/24 04/24/24 History release Physical Exam 2 Vital Signs and Narrative: Vital Signs: Last Vital Signs Temp 98.4 F 05/19/24 01:06 Pulse 76 05/19/24 01:06 Resp 17 05/19/24 01:06 BP 121/66 05/19/24 01:06 Pulse Ox 99 05/19/24 00:00 O2 Del Method Room Air 05/19/24 00:00 BMI result Body Mass Index 24.1 General: AOx3, no acute distress Resp: CTA bilaterally CVS: S1, S2, RRR GI: +BS, tender epigastric region, no distention Skin: Warm, dry Neuro: Cranial nerves II-XII grossly intact bilaterally. Motor grossly intact bilaterally Extremities: No LE edema Psych: Appropriate affect Const: General: No confusion Orientation/consciousness: No confusion Eyes: Direct Ophthalmoscopy: No photophobia Neuro: General: No confusion Results Labs 05/18/24 19:19 05/18/24 19:19 Labs: Laboratory Results - last 24 hr 05/18/24 05/18/24 05/18/24 19:19 19:57 20:18 MCV 93.5 MCH 31.9 MCHC 34.2 RDW 13.8 Plt Count 232 MPV 9.3 L Immature Gran % (Auto) 0.6 H Neut % (Auto) 43.1 L Lymph % (Auto) 41.6 H [place] % (Auto) 11.0 Eos % (Auto) 3.3 Baso % (Auto) 0.4 Lymph # (Auto) 2.2 [place] # (Auto) 0.6 Eos # (Auto) 0.2 Baso # (Auto) 0.0 Abs Immat Gran (auto) 0.03 Absolute Neuts (auto) 2.2 Absolute Nucleated RBC 0.000 Nucleated RBC % (auto) 0.0 Anion Gap 12 Estim Creat Clear Calc 12.2 Estimated GFR 9 POC Glucose 130 H Random Glucose 56 L* Calcium 8.5 D Magnesium 1.9 Total Bilirubin 0.4 AST 17 ALT 8 Alkaline Phosphatase 98 Total Protein 5.4 L Albumin 3.1 L Lipase 45 Stool Occult Blood POSITIVE Influenza Type A (PCR) NEGATIVE Influenza Type B (PCR) NEGATIVE RSV RNA Qual (PCR) NEGATIVE SARS-CoV-2 RNA (RT-PCR) NEGATIVE Blood Type O Positive Antibody Screen NEGATIVE Crossmatch See Detail 05/18/24 05/19/24 22:00 00:06 MCV MCH MCHC RDW Plt Count MPV Immature Gran % (Auto) Neut % (Auto) Lymph % (Auto) [place] % (Auto) Eos % (Auto) Baso % (Auto) Lymph # (Auto) [place] # (Auto) Eos # (Auto) Baso # (Auto) Abs Immat Gran (auto) Absolute Neuts (auto) Absolute Nucleated RBC Nucleated RBC % (auto) Anion Gap Estim Creat Clear Calc Estimated GFR POC Glucose 81 147 H Random Glucose Calcium Magnesium Total Bilirubin AST ALT Alkaline Phosphatase Total Protein Albumin Lipase Stool Occult Blood Influenza Type A (PCR) Influenza Type B (PCR) RSV RNA Qual (PCR) SARS-CoV-2 RNA (RT-PCR) Blood Type Antibody Screen Crossmatch Assessment and Plan (1) GI bleed: Status: Acute (2) Hypokalemia: Status: Acute (3) Hypoglycemia: Status: Acute (4) ESRD on dialysis: Status: Acute Plan Patient is a 53-year-old female with a past medical history significant for recurrent GI bleed secondary to gastric pouch ulcers fell by Dr. Moody, recent endoscopy by Dr. Urban suggestive of recurrent ulcers at GJ anastomosis with possible ischemia, ESRD on HD MWF, HLD, GERD, HTN and chronic back pain, who presented to the ED due to melena for the past 3 days with dizziness, nausea and upper abdominal discomfort. Recurrent GI bleed - hemoglobin 6.9, given 2 units PRBC - heme-positive stool - GI consult, bariatric surgery consult due to recent EGD results suggestive of need for possible revision of anastomosis - pantoprazole 80 mg given in ED, continue pantoprazole 40 mg b.i.d. - recheck H&H now - monitor CBC - admit to med tele Hypokalemia - potassium 3.0 - given 40 mEq p.o. - recheck BMP in a.m. Hypoglycemia - likely secondary to end-stage renal disease, blood sugar 56 on arrival, given 25 g with good improvement - continue to monitor POC ESRD on HD MWF - nephrology consult HLD - continue home meds GERD - PPI as above HTN - resume home meds when appropriate Full code VTE prophylaxis: Pneumoboots due to GI bleed Patient with recurrent GI bleed requiring admission for at least 2 midnights stay for blood transfusion and further evaluation. Quality Stroke Does the patient have a stroke diagnosis?: No VTE Prior VTE?: No VTE Risk Level:: Medical - moderate - high VTE Device Contraindication: N/A - Device Ordered VTE Drug Contraindication: Treatment Not Indicated
[2024-05-19] MEDS: HYDROmorphone HCl 0.5 MG/0.5 ML SYRINGE 0.25 MG IVPUSH ×5 (03:38→20:16)
--- NOTE | 2024-05-19 03:42 | PC.NURSE ---
pt medicated per apr for 910 abdominal pain.
--- NOTE | 2024-05-19 04:15 | PC.NURSE ---
pt pain score 9/10, pt requesting dialudid prn at this time, pt medicated per apr. pt stated she had good relief at that time.
[2024-05-19 05:23] LABS: Hematocrit 25.1 % (37.0-47.0); Hemoglobin 8.6 g/dl (12.0-16.0); Mean Corpuscular HGB Conc 34.3 g/dl (31.0-35.0); Mean Corpuscular Hemoglobin 30.7 pg (27.0-33.0); Mean Corpuscular Volume 89.6 fL (80.0-98.0); Mean Platelet Volume 9.5 fL (9.4-12.3); Platelet Count 223 X10*3/uL (160-400); Red Cell Distribution Width 14.4 % (11.0-16.0); White Blood Count 6.2 X10*3/uL (4.8-10.8)
[2024-05-19 05:48] LABS: Anion Gap 17 (12-20); Blood Urea Nitrogen 41 mg/dL (9-16); Calcium 8.6 mg/dL (8.4-10.2); Carbon Dioxide 23 mmol/L (22-29); Chloride 99 mmol/L (96-108); Estimated Glomerular Filt Rate 9; Glucose Random 76 mg/dL (60-115); Potassium 3.9 mmol/L (3.3-5.1); Sodium 135 mmol/L (135-145)
[2024-05-19] MEDS: Pantoprazole Sodium 40 MG/10 ML VIAL IVPUSH ×2 (06:38→17:32)
--- NOTE | 2024-05-19 07:53 | PM.EVENT ---
Event Note Date of Service: 05/19/24 Event Note: Pt seen/examined, here with gib, acute blood loss anemia, H/H is better. Vital stable Patient is a 53-year-old female with a past medical history significant for recurrent GI bleed secondary to gastric pouch ulcers fell by Dr. Moody, recent endoscopy by Dr. Urban suggestive of recurrent ulcers at GJ anastomosis with possible ischemia, ESRD on HD MWF, HLD, GERD, HTN and chronic back pain, who presented to the ED due to melena for the past 3 days with dizziness, nausea and upper abdominal discomfort. Recurrent GI bleed - hemoglobin 6.9, given 2 units PRBC with improvment - heme-positive stool - GI consult, bariatric surgery consult due to recent EGD results suggestive of need for possible revision of anastomosis - pantoprazole 80 mg given in ED, continue pantoprazole 40 mg b.i.d, add Karafate, EGD tomorrow - monitor CBC Hypokalemia, resolved with replacement Hypoglycemia - likely secondary to end-stage renal disease, blood sugar 56 on arrival, given 25 g with good improvement - continue to monitor POC ESRD on HD MWF - nephrology consult HLD - continue home meds GERD - PPI as above HTN - resume home meds when appropriate Full code VTE prophylaxis: Pneumoboots due to GI bleed Patient with recurrent GI bleed requiring admission for at least 2 midnights stay for blood transfusion and further evaluation. Time Spent With Patient Time: Total time managing care of this patient today ____ minutes.
--- NOTE | 2024-05-19 08:52 | PHA.MEDREC ---
Pharmacy Consult ? Medication Reconciliation Pharmacy has completed the medication reconciliation. Spoke with patient who was able to confirm her medications, doses and frequencies. She did however not recognize the Clinisol SF 15%, I asked her about the freqwuency and about dialysis but patient could not confirm if shes on it. Left unconfirmed. Patient also states she is on BOTH omeprazole and Pantoprazole. Patient stated shes on both due to her extensive history with stomach ulcers.
--- NOTE | 2024-05-19 09:11 | P.CNGI_ITS ---
History of Present Illness Data of Consult Service Date: 05/19/24 Primary Care Provider: Rozina Lang MD HPI Reason for consult: anemia 53 year old woman with hx of end-stage renal disease on hemodialysis (MWF), GI bleeding, GERD, hemorrhoids, diverticulosis, gastric sleeve surgery, s/p revision of gastric bypass at [facility] and essential hypertension who I am seeing for assessment for anemia PAtient noted 3 d of black colored loose stools, with mild upper abdominal discomfort. She aslo noted dizziness, and mild nausea. She denies any headache, fever, vomiting. No upper respiratory symptoms or urinary tract symptoms. recurrent GI bleed secondary to gastric pouch ulcers fell by Dr. Moody, recent endoscopy by Dr. Urban suggestive of recurrent ulcers at GJ anastomosis with possible ischemia, ESRD on HD MWF, HLD, GERD, HTN and chronic back pain, who presented to the ED due to melena for the past 3 days with dizziness, nausea and upper abdominal discomfort. This feels exactly the same as previous history of GI bleeds. She has had some diarrhea. . She reports that she has been eating and drinking over the past few days normally. Patient was at baseline health until Friday when she noted sudden onset nausea and vomiting with coffee ground emesis and melenic stools. SHe also noted 10/10 epigastric pain worse with food, She may have ate a meatball around this time. She denies taking anticoagulation and NSAIDs. She reports compliance with her PPI but is an ongoing tobacco smoker. HGB 6 g/dl on admission, went to 8 g/dl with PRBC Prior TESTING: colonoscopy for screening 06/03--no polyps, diverticulosis EGD revealing a toby grade III ulcer- 09/02 EGD: 12/03- gastritis mallor Dixon tear marginal ulcers schatzki ring Several clips applied and hemospray used EGD : 12/2023 gastritis jejunitis gastric pouch ulcers no active bleeding, mesenteric US recommended -revealed 70% mesenteric ischemia EGD: 04/2024- venita, ulcers noted, no active bleeding Review of Systems 2 Review of Systems: Constitutional : No Weight loss, No Fever, + Chills ENT/Mouth : No sore throat, No Rhinorrhea Eyes: No Swelling, No Redness Cardiovascular : No Chest Pain, No SOB, No Edema Respiratory : No Cough, No Sputum, No Wheezing Gastrointestinal : see HPI Genitourinary : NO Dysuria, No Urinary Frequency, No Hematuria, No Urgency Musculoskeletal : no joint pain, No Myalgias, No Joint Swelling Skin : No Skin Lesions, No rash Neuro : No Weakness, No Numbness, No Dizziness, No Headache Psych : No Anxiety/Panic, No Depression Heme/Lymph: No Bruising, No Lymphadenopathy Endocrine : No Polyuria, No Polydipsia All other systems reviewed and are negative. 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 Lumbar back pain with radiculopathy affecting left lower extremity Physical exam (~02/14/21) Peritoneal dialysis catheter in place Polyarthralgia Dyslipidemia Family history of ovarian cancer Abnormal mammogram of right breast Angina pectoris syndrome Chest pain Constipation Nephrosclerosis Renal interstitial fibrosis Obesity (BMI 30-39.9) Back pain GERD (gastroesophageal reflux disease) History of headache HTN (hypertension) Family History Family History Father Asthma Mother Asthma Hypertension Ovarian cancer Maternal Grandfather Myocardial infarction Paternal Grandmother Stroke Surgical History Surgical History S/P arteriovenous (AV) graft placement History of sleeve gastrectomy Fistula Hx of colonoscopy Hx of hysterectomy Hx of tubal ligation History of endometrial ablation Social History Social History Household Members: Family Housing: Apartment Do you presently have visiting nurse or other home services: No (Services to be started) Alcohol intake: current Alcohol intake frequency: holidays/special occasions only Alcohol type: beer Comment: Patient doesn't want bed alarm on Patient Tobacco Use Status: Never used Tobacco Tobacco use type: Cigarette Cigarette Packs Per Day: 1 Cigarettes Per Day: 20.0 Years Smoked: 10+ Smoked in Last 30 Days: No e-Cigarette/Vaping Use: Currently Using Second Hand Smoke Exposure: No Use of substances other than those prescribed or required for medical reasons: No Advance Directives: Yes Advance Directives on File: Yes Advance Directives Date on File: 04/27/20 Do you have a plan to hurt others: No Plan Nutrition Risks: No Nutritional Risk Patient : No service: No Current occupational status: employed Cognitive needs: No Hearing needs: No Vision needs: Yes (reading glasses) Meds Allergies Allergy/AdvReac Type Severity Reaction Status Date / Time ibuprofen Allergy Severe Unknown Verified 05/18/24 19:11 nifedipine Allergy Intermediate hives, leg Verified 05/18/24 19:11 edema Active Medications: Current Medications Acetaminophen (Acetaminophen 325 Mg Tablet) 650 mg PO Q6H PRN PRN Reason: Pain, Mild 1-3,fever,headache Calcium Carbonate (Calcium Carbonate 750 Mg Tab.Chew) 750 mg PO Q4H PRN PRN Reason: Heartburn Hydromorphone HCl (Hydromorphone Hcl 0.5 Mg/0.5 Ml Syringe) 0.25 mg IVPUSH Q4H PRN; Protocol PRN Reason: Pain, Moderate(Pain Scale 4-6) Last Admin: 05/19/24 07:53 Dose: 0.25 mg Magnesium Hydroxide (Milk Of Magnesia 30 Ml Oral.Susp) 30 ml PO DAILY PRN PRN Reason: Constipation Melatonin (Melatonin 3 Mg Tablet) 6 mg PO BEDTIME PRN PRN Reason: Insomnia Pantoprazole Sodium (Pantoprazole Sodium 40 Mg/10 Ml Vial) 40 mg IVPUSH BID@0630,1630 [facility] Last Admin: 05/19/24 06:38 Dose: 40 mg Sodium Chloride (0.9 % Sodium Chloride Flush 3 Ml Syringe) 3 ml IVFLUSH QSHIFT [facility] Last Admin: 05/19/24 07:13 Dose: Not Given Home Medications ?Medication ?Instructions ?Recorded ?Confirmed ?Last Taken ?Type ferrous sulfate 325 mg (65 mg 325 mg PO BID PRN Iron Levels 05/11/20 05/19/24 05/18/24 History iron) tablet,delayed release cyanocobalamin (vitamin B-12) 1,000 mcg PO DAILY 10/17/20 05/19/24 05/18/24 History 1,000 mcg tablet midodrine 5 mg tablet 5 mg PO TID 03/25/23 05/19/24 05/18/24 History acetaminophen 500 mg capsule 1,000 mg PO Q8H PRN Pain 08/10/23 05/19/24 05/18/24 History (Mapap (acetaminophen)) fluticasone propionate 50 1 spray intranasal DAILY PRN 08/10/23 05/19/24 05/18/24 History mcg/actuation nasal Allergy Symptoms spray,suspension dyvghahr-rffmiynj-hlwk 45 mg-folic 1 cap PO DAILY 08/10/23 05/19/24 05/18/24 History acid 800 mcg-vit K 120 mcg capsule (Bariatric Multivitamins) parenteral amino acid 15% no.5 15 0.5 ea IV MOWEFR@0900 08/10/23 04/25/24 04/23/24 History % combination no.5 intravenous solution (Clinisol SF) sucralfate 1 gram tablet 1 g PO BID 08/10/23 05/19/24 05/18/24 History pantoprazole 40 mg tablet,delayed 40 mg PO DAILY@0630 04/25/24 05/19/24 05/18/24 History release omeprazole 40 mg capsule,delayed 40 mg PO BID 05/19/24 05/19/24 Unknown History release zinc acetate 50 mg (zinc) capsule 50 mg PO DAILY 05/19/24 05/19/24 Unknown History Physical Exam 2 Vital Signs: Vital Signs: Last Vital Signs Temp 98.0 F 05/19/24 06:19 Pulse 78 05/19/24 07:47 Resp 20 05/19/24 07:47 BP 133/74 05/19/24 07:47 Pulse Ox 97 05/19/24 07:47 O2 Del Method Room Air 05/19/24 07:47 BMI result Body Mass Index 24.1 EXAM: GENERAL: The patient is frail VITAL SIGNS:see workflow HEENT: Nonicteric sclerae, PERRLA, EOMI. Oropharynx clear. Moist mucous membranes. Conjunctivae appear well perfused. No thyroid mass. CHEST: Chest wall is nontender. HEART: Regular rate and rhythm without murmurs. LUNGS: Clear to auscultation bilaterally. ABDOMEN: Soft, positive bowel sounds, nontender, no organomegaly.no flank tenderness SKIN: No rash, no excessive bruising, petechiae, or purpura. NEUROLOGIC: Cranial nerves II-XII intact without motor/sensory deficit. Psych: normal affect Results Labs 05/19/24 04:44 05/19/24 04:44 Labs: Short CBC 05/18/24 05/19/24 05/19/24 Range/Units 19:19 04:44 04:44 WBC 5.2 6.2 (4.8-10.8) X10*3/uL Hgb 6.9 L* D 8.6 L D Cancelled (12.0-16.0) g/dl Hct 20.2 L* D 25.1 L D (37.0-47.0) % Plt Count 232 (160-400) X10*3/uL 05/19/24 Range/Units 04:44 WBC (4.8-10.8) X10*3/uL Hgb (12.0-16.0) g/dl Hct Cancelled (37.0-47.0) % Plt Count 223 (160-400) X10*3/uL BMP 05/18/24 05/19/24 19:19 04:44 Sodium 134 L 135 Potassium 3.0 L D 3.9 D Chloride 99 99 Carbon Dioxide 26 23 BUN 37 H 41 H Creatinine 4.84 H* 4.92 H* Calcium 8.5 D 8.6 Liver Function 05/18/24 Range/Units 19:19 Total Bilirubin 0.4 (0.0-1.0) mg/dL AST 17 (5-31) U/L ALT 8 (0-31) U/L Alkaline Phosphatase 98 (39-117) U/L Albumin 3.1 L (3.5-5.0) g/dL Assessment and Plan (1) GI bleed: Status: Acute Plan 1/ Recurrent anemia possibly from combination of CKd, and GI blood loss due to marginal ulceration possibly from ischemia given SMA stenosis PLAN: 1/ High dose PPI 2/ allow clears and EGd tomorrow 3/ vascular consult, may benefit from revascularization of SMA Procedures Date of Service Date of Service: 05/19/24
[2024-05-19 11:16] LABS: Glucose, Whole Blood 81 mg/dL (60-115)
[2024-05-19] MEDS: Sucralfate Oral Suspension 1 GM/10 ML ORAL.SUSP PO ×3 (11:42→20:15)
--- NOTE | 2024-05-19 12:03 | P.CONGS_ITS ---
<Statement entered by Jey Keith MD - 05/20/24 17:03> I have seen and evaluated the patient and agree with history, findings, assessment and plan documented by Marie Yates PA-c. Mesenteric study was from 2023. Her symptomatology does not appear to be chronic mesenteric issues. May benefit from bariatric evaluation. She will follow up with us on an as-needed basis. Thank you for allowing us to assist in her care. History of Present Illness Consult details Consult date: 05/19/24 Narrative: We were consulted for Meliza, for SMA stenosis. She presented to the ER yesterday with concerns of 3d of melena in her stool with dizziness and nausea. She has a medical history pertinent for several gastric surgeries; she had a gastric sleeve done appx 3y at [facility] and has had multiple complications requiring 2 additional surgeries and has a gastric pouch and ulcers; ESRD on HD M/W/F, HLD, GERD, HTN, chronic back pain, and she is an everyday smoker. She states she normally has nausea daily, for which she takes Zofran for; she also has abd pain daily, alternating between cramping and sharp/cutting pains. She states she has had multiple GI bleeds. She states she did have a couple of days of diarrhea with dark black melena stool but then yesterday began having regular BM. She states she got concerned when she became dizzy. She has been able to eat and drink normally. She states she is feeling ok today, some slight abd cramping but is not nauseous. She denies any dizziness, lightheadedness, or headaches. Review of Systems 2 Constitutional: Constitutional: Reports as per HPI and Denies weakness ENT: Reports Normal hearing present and Denies dizziness Cardiovascular: Cardiovascular: Reports as per HPI, Denies chest pain, Denies chest pain at rest, Denies chest pain with activity, Denies dyspnea and Denies dyspnea on exertion Respiratory: Respiratory: Reports as per HPI, Denies cough, Denies dyspnea and Denies dyspnea on exertion Gastrointestinal: Gastrointestinal: Reports as per HPI, Denies abdominal pain, Denies nausea and Denies vomiting Musculoskeletal: Musculoskeletal: Denies numbness Integumentary/Breasts: Skin/Breast: Reports as per HPI, Denies erythema and Denies wounds Neurologic: Reports Normal hearing present, Denies dizziness, Denies numbness, Denies Sensory deficit (Neuro) and Denies weakness Psychiatric: Psychiatric: Reports no additional psychiatric complaints Endocrine: Endocrine: Reports no additional endocrine complaints [facility] Past Medical History Medical History (Updated 05/19/24 @ 12:15 by Marie Yates PA-C) ESRD on dialysis Smoker End stage chronic kidney disease Moderate major depression Physical exam Spondylosis without myelopathy or radiculopathy, lumbar region Spinal stenosis 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 Lumbar back pain with radiculopathy affecting left lower extremity Physical exam (~02/14/21) Peritoneal dialysis catheter in place Polyarthralgia Dyslipidemia Family history of ovarian cancer Abnormal mammogram of right breast Angina pectoris syndrome Chest pain Constipation Nephrosclerosis Renal interstitial fibrosis Obesity (BMI 30-39.9) Back pain GERD (gastroesophageal reflux disease) History of headache HTN (hypertension) Family History Family History Father Asthma Mother Asthma Hypertension Ovarian cancer Maternal Grandfather Myocardial infarction Paternal Grandmother Stroke Surgical History Surgical History S/P arteriovenous (AV) graft placement History of sleeve gastrectomy Fistula Hx of colonoscopy Hx of hysterectomy Hx of tubal ligation History of endometrial ablation Social History Social History Household Members: Family Housing: Apartment Do you presently have visiting nurse or other home services: No (Services to be started) Alcohol intake: current Alcohol intake frequency: holidays/special occasions only Alcohol type: beer Comment: Patient doesn't want bed alarm on Patient Tobacco Use Status: Never used Tobacco Tobacco use type: Cigarette Cigarette Packs Per Day: 1 Cigarettes Per Day: 20.0 Years Smoked: 10+ Smoked in Last 30 Days: No e-Cigarette/Vaping Use: Currently Using Second Hand Smoke Exposure: No Use of substances other than those prescribed or required for medical reasons: No Advance Directives: Yes Advance Directives on File: Yes Advance Directives Date on File: 04/27/20 Do you have a plan to hurt others: No Plan Nutrition Risks: No Nutritional Risk Patient : No service: No Current occupational status: employed Cognitive needs: No Hearing needs: No Vision needs: Yes (reading glasses) Meds Allergies Allergy/AdvReac Type Severity Reaction Status Date / Time ibuprofen Allergy Severe Unknown Verified 05/18/24 19:11 nifedipine Allergy Intermediate hives, leg Verified 05/18/24 19:11 edema Active Medications: Current Medications Acetaminophen (Acetaminophen 325 Mg Tablet) 650 mg PO Q6H PRN PRN Reason: Pain, Mild 1-3,fever,headache Calcium Carbonate (Calcium Carbonate 750 Mg Tab.Chew) 750 mg PO Q4H PRN PRN Reason: Heartburn Hydromorphone HCl (Hydromorphone Hcl 0.5 Mg/0.5 Ml Syringe) 0.25 mg IVPUSH Q4H PRN; Protocol PRN Reason: Pain, Moderate(Pain Scale 4-6) Last Admin: 05/19/24 07:53 Dose: 0.25 mg Magnesium Hydroxide (Milk Of Magnesia 30 Ml Oral.Susp) 30 ml PO DAILY PRN PRN Reason: Constipation Melatonin (Melatonin 3 Mg Tablet) 6 mg PO BEDTIME PRN PRN Reason: Insomnia Pantoprazole Sodium (Pantoprazole Sodium 40 Mg/10 Ml Vial) 40 mg IVPUSH BID@0630,1630 [facility] Last Admin: 05/19/24 06:38 Dose: 40 mg Sodium Chloride (0.9 % Sodium Chloride Flush 3 Ml Syringe) 3 ml IVFLUSH QSHIFT [facility] Last Admin: 05/19/24 07:13 Dose: Not Given Sucralfate (Sucralfate Oral Suspension 1 Gm/10 Ml Oral.Susp) 1 gm PO QIDACHS [facility] Last Admin: 05/19/24 11:42 Dose: 1 gm Home Medications ?Medication ?Instructions ?Recorded ?Confirmed ?Last Taken ?Type ferrous sulfate 325 mg (65 mg 325 mg PO BID PRN Iron Levels 05/11/20 05/19/24 05/18/24 History iron) tablet,delayed release cyanocobalamin (vitamin B-12) 1,000 mcg PO DAILY 10/17/20 05/19/24 05/18/24 History 1,000 mcg tablet midodrine 5 mg tablet 5 mg PO TID 03/25/23 05/19/24 05/18/24 History acetaminophen 500 mg capsule 1,000 mg PO Q8H PRN Pain 08/10/23 05/19/24 05/18/24 History (Mapap (acetaminophen)) fluticasone propionate 50 1 spray intranasal DAILY PRN 08/10/23 05/19/24 05/18/24 History mcg/actuation nasal Allergy Symptoms spray,suspension [id number] 45 mg-folic 1 cap PO DAILY 08/10/23 05/19/24 05/18/24 History acid 800 mcg-vit K 120 mcg capsule (Bariatric Multivitamins) parenteral amino acid 15% no.5 15 0.5 ea IV MOWEFR@0900 08/10/23 04/25/24 04/23/24 History % combination no.5 intravenous solution (Clinisol SF) sucralfate 1 gram tablet 1 g PO BID 08/10/23 05/19/24 05/18/24 History pantoprazole 40 mg tablet,delayed 40 mg PO DAILY@0630 04/25/24 05/19/24 05/18/24 History release omeprazole 40 mg capsule,delayed 40 mg PO BID 05/19/24 05/19/24 Unknown History release zinc acetate 50 mg (zinc) capsule 50 mg PO DAILY 05/19/24 05/19/24 Unknown History Physical Exam 2 Vital Signs: Vital Signs: Last Vital Signs Temp 98.0 F 05/19/24 06:19 Pulse 78 05/19/24 07:47 Resp 20 05/19/24 07:47 BP 133/74 05/19/24 07:47 Pulse Ox 97 05/19/24 07:47 O2 Del Method Room Air 05/19/24 07:47 BMI result Body Mass Index 24.1 Const: General: comfortable and no acute distress O rientation/consciousness: patient oriented x3 HEENT: Ears: hearing grossly normal bilaterally Resp: Effort & Inspection: normal respiratory effort and able to speak in complete sentences Auscultation: clear to auscultation bilaterally Cardio: Rate: regular rate Rhythm: regular rhythm Heart sounds: S1 normal heart sound present and S2 normal heart sound present Bruits: no abdominal aortic bruits, no carotid bruits, no femoral bruits and no renal bruits GI: Other: Unable to palpate, due to pt discomfort. Palpation (GI): No Abdominal aortic bruit present Neuro: General: patient oriented x3 Cranial nerves: Yes Normal hearing present Sensory Exam: No Sensory deficit (Neuro) Results Labs 05/19/24 04:44 05/19/24 04:44 Labs: Abnormal lab results 05/18/24 05/18/24 05/18/24 Range/Units 19:19 19:57 20:18 RBC 2.16 L D (4.20-5.50) X10*6/uL Hgb 6.9 L* D (12.0-16.0) g/dl Hct 20.2 L* D (37.0-47.0) % MPV 9.3 L (9.4-12.3) fL Immature Gran % (Auto) 0.6 H (0.0-0.4) % Neut % (Auto) 43.1 L (45-73) % Lymph % (Auto) 41.6 H (20-40) % Sodium 134 L (135-145) mmol/L Potassium 3.0 L D (3.3-5.1) mmol/L BUN 37 H (9-16) mg/dL Creatinine 4.84 H* (0.5-1.4) mg/dL POC Glucose 130 H (60-115) mg/dL Random Glucose 56 L* (60-115) mg/dL Total Protein 5.4 L (6.5-8.0) g/dL Albumin 3.1 L (3.5-5.0) g/dL Crossmatch See Detail 05/19/24 05/19/24 Range/Units 00:06 04:44 RBC 2.80 L D (4.20-5.50) X10*6/uL Hgb 8.6 L D (12.0-16.0) g/dl Hct 25.1 L D (37.0-47.0) % MPV (9.4-12.3) fL Immature Gran % (Auto) (0.0-0.4) % Neut % (Auto) (45-73) % Lymph % (Auto) (20-40) % Sodium (135-145) mmol/L Potassium (3.3-5.1) mmol/L BUN 41 H (9-16) mg/dL Creatinine 4.92 H* (0.5-1.4) mg/dL POC Glucose 147 H (60-115) mg/dL Random Glucose (60-115) mg/dL Total Protein (6.5-8.0) g/dL Albumin (3.5-5.0) g/dL Crossmatch Short CBC 05/18/24 05/19/24 05/19/24 Range/Units 19:19 04:44 04:44 WBC 5.2 6.2 (4.8-10.8) X10*3/uL Hgb 6.9 L* D 8.6 L D Cancelled (12.0-16.0) g/dl Hct 20.2 L* D 25.1 L D (37.0-47.0) % Plt Count 232 (160-400) X10*3/uL 05/19/24 Range/Units 04:44 WBC (4.8-10.8) X10*3/uL Hgb (12.0-16.0) g/dl Hct Cancelled (37.0-47.0) % Plt Count 223 (160-400) X10*3/uL BMP 05/18/24 05/19/24 19:19 04:44 Sodium 134 L 135 Potassium 3.0 L D 3.9 D Chloride 99 99 Carbon Dioxide 26 23 BUN 37 H 41 H Creatinine 4.84 H* 4.92 H* Calcium 8.5 D 8.6 Liver Function 05/18/24 Range/Units 19:19 Total Bilirubin 0.4 (0.0-1.0) mg/dL AST 17 (5-31) U/L ALT 8 (0-31) U/L Alkaline Phosphatase 98 (39-117) U/L Albumin 3.1 L (3.5-5.0) g/dL All other labs normal. Assessment and Plan (1) Superior mesenteric artery stenosis: Status: Acute Plan We were consulted on Meliza for past finding of SMA stenosis on imaging. The pt presented to the ER with melena stools, nausea, and abd cramping with dizziness. She currently states she is having abd cramping but no nausea or diarrhea. She does continue with HD on MWF, she states she can only tolerate 2h of dialysis when it is done. There is no acute vascular surgical intervention. We would recommend a Bariatrics consult. We will continue to monitor. If there are any questions or concerns, please do not hesitate to reach out to us. Procedures Date of Service Date of Service: 05/19/24
--- NOTE | 2024-05-19 13:09 | MHC.CM.PN ---
CM met with Patient at bedside and addressed IMM with her, providing Patient with the original and a copy has been placed on the chart. Patient lives in an apartment with her Son, who she helps to care for. Patient uses a cane to assist with mobility, is active with [facility], has a [employer] 28 hours/week, and attends HD @ [facility] M/W/F. Home/resume said services is Patient's goal and CM has initiated and will follow for dc planning. PCP is Dr. Rozina Lopez and Patient's Sister/HCP/Kristyn, Nephew or Brother will transport to home at time of dc.
[2024-05-19] MEDS: Sevelamer Carbonate Tablet 800 MG TABLET 1600 MG PO (17:32)
[2024-05-19] MEDS: ondansetron HCL 4 MG/2 ML VIAL IVPUSH (17:35)
[2024-05-19] MEDS: Gabapentin 400 MG CAPSULE PO (20:15)
[2024-05-19] MEDS: carvediloL 6.25 MG TABLET PO (20:16)
[2024-05-19] MEDS: 0.9 % Sodium Chloride Flush 3 ML SYRINGE IVFLUSH (20:18)
--- NOTE | 2024-05-19 20:21 | MHC.PIE ---
p; pt c/o pain 08/19 note; prn dilaudid 0.25 q4 given at 1735. i; dr avelar notified. ok to give early dose e; [facility]
[2024-05-20] VITALS (8 sets, daily range): BP systolic 107–145; BP diastolic 58–71; PULSE 67–696; RESP 12–18; TEMP 36.4–37.4; O2SAT 97–100
[2024-05-20] MEDS: Pantoprazole Sodium 40 MG/10 ML VIAL IVPUSH ×2 (06:16→17:50)
[2024-05-20 07:13] LABS: Hematocrit 28.4 % (37.0-47.0); Hemoglobin 9.4 g/dl (12.0-16.0); Mean Corpuscular HGB Conc 33.1 g/dl (31.0-35.0); Mean Corpuscular Hemoglobin 30.5 pg (27.0-33.0); Mean Corpuscular Volume 92.2 fL (80.0-98.0); Platelet Count 255 X10*3/uL (160-400); Red Blood Count 3.08 X10*6/uL (4.20-5.50); Red Cell Distribution Width 14.4 % (11.0-16.0); White Blood Count 4.7 X10*3/uL (4.8-10.8)
[2024-05-20 07:32] LABS: Anion Gap 12 (12-20); Blood Urea Nitrogen 18 mg/dL (9-16); Calcium 8.7 mg/dL (8.4-10.2); Carbon Dioxide 30 mmol/L (22-29); Chloride 99 mmol/L (96-108); Creatinine Clr Calc Pharmacy 17.5; Estimated Glomerular Filt Rate 14; Glucose Random 68 mg/dL (60-115); Potassium 4.3 mmol/L (3.3-5.1); Sodium 137 mmol/L (135-145)
--- NOTE | 2024-05-20 08:32 | P.PNIM_ITS ---
Subjective Subjective Date of Service: 05/20/24 Review of Systems Follow up GI bleed, esrd No sings of bleeding, H/H is stable Physical Exam 2 Vital Signs: Vital Signs: Last Vital Signs Temp 98.0 F 05/20/24 07:17 Pulse 67 05/20/24 07:17 Resp 16 05/20/24 07:17 BP 107/60 05/20/24 07:17 Pulse Ox 98 05/20/24 07:17 O2 Del Method Room Air 05/20/24 07:17 BMI result Body Mass Index 24.1 Const: Other: General: AO X 3, no acute distress Resp: CTA bilateral CVS: S1,S2,RRR GI: +BS, NT, no distention Skin: No rash Neuro: motor grossly intact Psych: appropriate affect Objective Data Active Medications Acetaminophen (Acetaminophen 325 Mg Tablet) 650 mg PO Q6H PRN PRN Reason: Pain, Mild 1-3,fever,headache Calcium Carbonate (Calcium Carbonate 750 Mg Tab.Chew) 750 mg PO Q4H PRN PRN Reason: Heartburn Carvedilol (Carvedilol 6.25 Mg Tablet) 6.25 mg PO BID [facility]; Protocol Last Admin: 05/19/24 20:16 Dose: 6.25 mg Documented By: ANUP Cyanocobalamin (Cyanocobalamin (Vitamin B-12) 1,000 Mcg Tablet) 1,000 mcg PO DAILY [facility] Ergocalciferol (Ergocalciferol (Vitamin D2) 1,250 Mcg Capsule) 1,250 mcg PO Tu [facility] Escitalopram Oxalate (Escitalopram Oxalate 10 Mg Tablet) 10 mg PO DAILY [facility] Ferrous Sulfate (Ferrous Sulfate 324 Mg Tablet.Dr) 324 mg PO BID PRN PRN Reason: Iron Levels Fluticasone Propionate (Fluticasone Propionate Nasal 16 Gm [place]) 1 spray NOSTRIL-B DAILY PRN PRN Reason: Allergy Symptoms Gabapentin (Gabapentin 400 Mg Capsule) 400 mg PO BID [facility] Last Admin: 05/19/24 20:15 Dose: 400 mg Documented By: ANUP Hydromorphone HCl (Hydromorphone Hcl 0.5 Mg/0.5 Ml Syringe) 0.25 mg IVPUSH Q4H PRN; Protocol PRN Reason: Pain, Moderate(Pain Scale 4-6) Last Admin: 05/19/24 20:16 Dose: 0.25 mg Documented By: ANUP Comments: early dose, ok per dr avelar Magnesium Hydroxide (Milk Of Magnesia 30 Ml Oral.Susp) 30 ml PO DAILY PRN PRN Reason: Constipation Melatonin (Melatonin 3 Mg Tablet) 6 mg PO BEDTIME PRN PRN Reason: Insomnia Multivitamins/Vitamin C (Multivitamin Tablet) 1 tab PO DAILY [facility] Ondansetron HCl (Ondansetron Hcl 4 Mg/2 Ml Vial) 4 mg IVPUSH Q8H PRN PRN Reason: Nausea and Vomiting Last Admin: 05/19/24 17:35 Dose: 4 mg Documented By: DANIELA Pantoprazole Sodium (Pantoprazole Sodium 40 Mg/10 Ml Vial) 40 mg IVPUSH BID@0630,1630 [facility] Last Admin: 05/20/24 06:16 Dose: 40 mg Documented By: ANUP Pyridoxine HCl (Pyridoxine Hcl (Vitamin B6) 50 Mg Tablet) 50 mg PO DAILY [facility] Sevelamer Carbonate (Sevelamer Carbonate Tablet 800 Mg Tablet) 1,600 mg PO TIDWM [facility] Last Admin: 05/19/24 17:32 Dose: 1,600 mg Documented By: DANIELA Sodium Chloride (0.9 % Sodium Chloride Flush 3 Ml Syringe) 3 ml IVFLUSH QSHIFT [facility] Last Admin: 05/19/24 20:18 Dose: 3 ml Documented By: ANUP Sucralfate (Sucralfate Oral Suspension 1 Gm/10 Ml Oral.Susp) 1 gm PO QIDACHS [facility] Last Admin: 05/19/24 20:15 Dose: 1 gm Documented By: ANUP Thiamine HCl (Thiamine Hcl 100 Mg Tablet) 100 mg PO DAILY [facility] Zinc Sulfate (Zinc Sulfate 220 Mg Capsule) 220 mg PO DAILY [facility] Labs 05/20/24 07:00 05/20/24 07:00 Labs: Laboratory Results - last 24 hr 05/18/24 05/19/24 05/20/24 19:19 11:12 07:00 MCV 92.2 MCH 30.5 MCHC 33.1 RDW 14.4 Plt Count 255 MPV 10.0 Absolute Nucleated RBC 0.000 Nucleated RBC % (auto) 0.0 Smear Path Review SEE NOTE Anion Gap 12 Estim Creat Clear Calc 17.5 Estimated GFR 14 POC Glucose 81 Random Glucose 68 Calcium 8.7 Assessment and Plan (1) Gastritis: Status: Acute (2) GI bleed: Status: Acute Plan Patient is a 53-year-old female with a past medical history significant for recurrent GI bleed secondary to gastric pouch ulcers fell by Dr. Moody, recent endoscopy by Dr. Urban suggestive of recurrent ulcers at GJ anastomosis with possible ischemia, ESRD on HD MWF, HLD, GERD, HTN and chronic back pain, who presented to the ED due to melena for the past 3 days with dizziness, nausea and upper abdominal discomfort. Recurrent GI bleed, heme positive stool - hemoglobin 6.9, given 2 units PRBC with improvment, H/H now 9.2/28.4 - GI consult, bariatric consult re need for possible revision of anastomosis - pantoprazole 80 mg given in ED, continue pantoprazole 40 mg b.i.d, add Karafate, EGD today - monitor CBC Hypokalemia, resolved with replacement Hypoglycemia - likely secondary to end-stage renal disease, blood sugar 56 on arrival, given 25 g with good improvement - continue to monitor POC ESRD on HD MWF - nephrology consult HLD - continue home meds GERD - PPI as above HTN - resume home meds when appropriate Full code VTE prophylaxis: Pneumoboots due to GI bleed inpatient for gib ,acute blood loss anemia work up Quality Stroke Does the patient have a stroke diagnosis?: No VTE Prior VTE?: No VTE Risk Level:: Medical - moderate - high VTE Device Contraindication: N/A - Device Ordered VTE Drug Contraindication: Treatment Not Indicated
--- NOTE | 2024-05-20 08:35 | P.PNGI_ITS ---
Subjective Subjective Date of Service: 05/20/24 Interval History: hgb stable, looks and feel better no n/v no abdo pain Critical Care Time (minutes): 0 Physical Exam 2 Vital Signs: Vital Signs: Last Vital Signs Temp 98.0 F 05/20/24 07:17 Pulse 67 05/20/24 07:17 Resp 16 05/20/24 07:17 BP 107/60 05/20/24 07:17 Pulse Ox 98 05/20/24 07:17 O2 Del Method Room Air 05/20/24 07:17 BMI result Body Mass Index 24.1 EXAM: GENERAL: The patient is relaxed VITAL SIGNS:see workflow HEENT: Nonicteric sclerae, PERRLA, EOMI. Oropharynx clear. Moist mucous membranes. Conjunctivae appear well perfused. No thyroid mass. CHEST: Chest wall is nontender. HEART: Regular rate and rhythm without murmurs. LUNGS: Clear to auscultation bilaterally. ABDOMEN: Soft, positive bowel sounds, nontender, no organomegaly.no flank tenderness SKIN: No rash, no excessive bruising, petechiae, or purpura. NEUROLOGIC: Cranial nerves II-XII intact without motor/sensory deficit. Psych: normal affect Objective Data Labs 05/20/24 07:00 05/20/24 07:00 Labs: Laboratory Results - last 24 hr 05/18/24 05/19/24 05/20/24 19:19 11:12 07:00 WBC 4.7 L RBC 3.08 L Hgb 9.4 L Hct 28.4 L MCV 92.2 MCH 30.5 MCHC 33.1 RDW 14.4 Plt Count 255 MPV 10.0 Absolute Nucleated RBC 0.000 Nucleated RBC % (auto) 0.0 Smear Path Review SEE NOTE Sodium 137 Potassium 4.3 Chloride 99 Carbon Dioxide 30 H Anion Gap 12 BUN 18 H Creatinine 3.37 H Estim Creat Clear Calc 17.5 Estimated GFR 14 POC Glucose 81 Random Glucose 68 Calcium 8.7 Procedures Date of Service Date of Service: 05/20/24 Progress Note: A&P Assessment and plan (1) GI bleed: Status: Acute Plan 1/ recurrent GI bleeding. possibly from anastomotic ulcers PLAN: 1/ EGD today for assessment Time Spent With Patient Time: Total time managing care of this patient today ____ minutes. Quality Stroke Does the patient have a stroke diagnosis?: No VTE Prior VTE?: No VTE Risk Level:: Medical - moderate - high VTE Device Contraindication: N/A - Device Ordered VTE Drug Contraindication: Treatment Not Indicated
--- NOTE | 2024-05-20 08:37 | MHC.SHP ---
Pre-Procedural Eval Section A - 24 Hr Update-Section A only Date of Service: 05/20/24 The patient is an INPATIENT: Yes The patient has been examined within 24 hours of the surgical procedure. The History & Physical has been completed within 30 days and I have reviewed it.: Yes Section B - Complete if H&P > 30 days Chief Complaint: GI bleed Allergies: Allergies Allergy/AdvReac Type Severity Reaction Status Date / Time ibuprofen Allergy Severe Unknown Verified 05/18/24 19:11 nifedipine Allergy Intermediate hives, leg Verified 05/18/24 19:11 edema Plan Diagnosis/Plan: Unchanged I have reviewed the history and physical and performed a pertinent physical examination on my patient. No changes have occurred unless specified. egd today Time Spent With Patient Time: Total time managing care of this patient today ____ minutes.
--- NOTE | 2024-05-20 09:08 | P.CONAN_ITS ---
[facility] Active Problems Active Problems: All Active Problems Superior mesenteric artery stenosis (Acute) ESRD on dialysis (Acute) Hypokalemia (Acute) GI bleed (Acute) Acute hypokalemia (Acute) Hypoglycemia (Acute) Anemia (Acute) Underweight (Acute) Suprapubic pain (Acute) Syncope (Acute) Schatzki's ring (Acute) Marginal ulcer (Acute) Gastritis (Acute) Esophagitis (Acute) Idiopathic hypotension (Acute) Moderate major depression (Acute) Systolic murmur (Acute) Malnutrition (Acute) Pre-op examination (Acute) Non-cardiac chest pain (Acute) Polyp of right nasal cavity (Acute) Numbness (Acute) Palpitations (Acute) Urinary and fecal incontinence (Acute) Anxiety and depression (Acute) Chronic low back pain (Acute) Fatigue (Acute) Nasal polyp, benign (Acute) Anxiety and depression (Acute) LLQ abdominal pain (Acute) Tubular adenoma of colon (Acute) Anxiety (Acute) Chronic renal insufficiency (Acute) Spinal stenosis (Acute) 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 (Acute) Lumbar back pain with radiculopathy affecting left lower extremity (Acute) GERD (gastroesophageal reflux disease) (Acute) Polyarthralgia (Acute) Dyslipidemia (Acute) Family history of ovarian cancer (Acute) Abnormal mammogram of right breast (Acute) Chest pain (Acute) Obesity (BMI 30-39.9) (Acute) HTN (hypertension) (Acute) Past Medical History Medical History (Updated 05/19/24 @ 12:15 by Marie Yates PA-C) ESRD on dialysis Smoker End stage chronic kidney disease Moderate major depression Physical exam Spondylosis without myelopathy or radiculopathy, lumbar region Spinal stenosis 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 Lumbar back pain with radiculopathy affecting left lower extremity Physical exam (~02/14/21) Peritoneal dialysis catheter in place Polyarthralgia Dyslipidemia Family history of ovarian cancer Abnormal mammogram of right breast Angina pectoris syndrome Chest pain Constipation Nephrosclerosis Renal interstitial fibrosis Obesity (BMI 30-39.9) Back pain GERD (gastroesophageal reflux disease) History of headache HTN (hypertension) Family History Family History Father Asthma Mother Asthma Hypertension Ovarian cancer Maternal Grandfather Myocardial infarction Paternal Grandmother Stroke Family history of problems with anesthesia: No Surgical History Surgical History S/P arteriovenous (AV) graft placement History of sleeve gastrectomy Fistula Hx of colonoscopy Hx of hysterectomy Hx of tubal ligation History of endometrial ablation History of Problems with Anesthesia: No Social History Social History Household Members: Children Household Members Other:: 30 year old special needs son Housing: Apartment Are you a primary child care teacher to a significant other at home: No Do you presently have visiting nurse or other home services: No Alcohol intake: current Alcohol intake frequency: holidays/special occasions only Alcohol type: beer Comment: Patient doesn't want bed alarm on Patient Tobacco Use Status: Former Tobacco user Tobacco use type: Cigarette Cigarette Packs Per Day: 1 Cigarettes Per Day: 20.0 Years Smoked: 10+ Smoked in Last 30 Days: Yes e-Cigarette/Vaping Use: Currently Using Patient Interested in Nicotine Replacement: Yes Patient Given Instructions on How to Stop Smoking: No Second Hand Smoke Exposure: No Use of substances other than those prescribed or required for medical reasons: Yes Substance Use Type: Caffiene Substance Use Frequency: Daily Currently Displaying Signs/Symptoms of Drug Intoxication Withdrawal: No Any prior treatment program specific to substance use: No Have you been hit, kicked, punched, or otherwise hurt by someone within the past year? If so, by whom?: No Do you feel safe in your current relationship?: Yes Is there a partner from a previous relationship who is making you feel unsafe now?: No Are you made to feel afraid or neglected: No Are you DNR?: No Advance Directives: Yes Advance Directives on File: Yes Advance Directives Date on File: 04/27/20 Do you have a plan to hurt others: No Plan Recently lost weight without trying: No Eating poorly because of decreased appetite: No Nutrition Risks: No Nutritional Risk Patient : No : No Poor oral hygiene: Yes service: No Current occupational status: employed Cognitive needs: No Hearing needs: No Vision needs: Yes (reading glasses) Meds Allergies Allergy/AdvReac Type Severity Reaction Status Date / Time ibuprofen Allergy Severe Unknown Verified 05/18/24 19:11 nifedipine Allergy Intermediate hives, leg Verified 05/18/24 19:11 edema Active Medications: Current Medications Acetaminophen (Acetaminophen 325 Mg Tablet) 650 mg PO Q6H PRN PRN Reason: Pain, Mild 1-3,fever,headache Calcium Carbonate (Calcium Carbonate 750 Mg Tab.Chew) 750 mg PO Q4H PRN PRN Reason: Heartburn Carvedilol (Carvedilol 6.25 Mg Tablet) 6.25 mg PO BID [facility]; Protocol Last Admin: 05/19/24 20:16 Dose: 6.25 mg Cyanocobalamin (Cyanocobalamin (Vitamin B-12) 1,000 Mcg Tablet) 1,000 mcg PO DAILY [facility] Ergocalciferol (Ergocalciferol (Vitamin D2) 1,250 Mcg Capsule) 1,250 mcg PO Tu [facility] Escitalopram Oxalate (Escitalopram Oxalate 10 Mg Tablet) 10 mg PO DAILY [facility] Ferrous Sulfate (Ferrous Sulfate 324 Mg Tablet.Dr) 324 mg PO BID PRN PRN Reason: Iron Levels Fluticasone Propionate (Fluticasone Propionate Nasal 16 Gm [place]) 1 spray NOSTRIL-B DAILY PRN PRN Reason: Allergy Symptoms Gabapentin (Gabapentin 400 Mg Capsule) 400 mg PO BID [facility] Last Admin: 05/19/24 20:15 Dose: 400 mg Hydromorphone HCl (Hydromorphone Hcl 0.5 Mg/0.5 Ml Syringe) 0.25 mg IVPUSH Q4H PRN; Protocol PRN Reason: Pain, Moderate(Pain Scale 4-6) Last Admin: 05/19/24 20:16 Dose: 0.25 mg Magnesium Hydroxide (Milk Of Magnesia 30 Ml Oral.Susp) 30 ml PO DAILY PRN PRN Reason: Constipation Melatonin (Melatonin 3 Mg Tablet) 6 mg PO BEDTIME PRN PRN Reason: Insomnia Multivitamins/Vitamin C (Multivitamin Tablet) 1 tab PO DAILY [facility] Ondansetron HCl (Ondansetron Hcl 4 Mg/2 Ml Vial) 4 mg IVPUSH Q8H PRN PRN Reason: Nausea and Vomiting Last Admin: 05/19/24 17:35 Dose: 4 mg Pantoprazole Sodium (Pantoprazole Sodium 40 Mg/10 Ml Vial) 40 mg IVPUSH BID@06 30,1630 [facility] Last Admin: 05/20/24 06:16 Dose: 40 mg Pyridoxine HCl (Pyridoxine Hcl (Vitamin B6) 50 Mg Tablet) 50 mg PO DAILY [facility] Sevelamer Carbonate (Sevelamer Carbonate Tablet 800 Mg Tablet) 1,600 mg PO TIDWM [facility] Last Admin: 05/19/24 17:32 Dose: 1,600 mg Sodium Chloride (0.9 % Sodium Chloride Flush 3 Ml Syringe) 3 ml IVFLUSH QSHIFT [facility] Last Admin: 05/19/24 20:18 Dose: 3 ml Sucralfate (Sucralfate Oral Suspension 1 Gm/10 Ml Oral.Susp) 1 gm PO QIDACHS [facility] Last Admin: 05/19/24 20:15 Dose: 1 gm Thiamine HCl (Thiamine Hcl 100 Mg Tablet) 100 mg PO DAILY [facility] Zinc Sulfate (Zinc Sulfate 220 Mg Capsule) 220 mg PO DAILY [facility] Home Medications ?Medication ?Instructions ?Recorded ?Confirmed ?Last Taken ?Type ferrous sulfate 325 mg (65 mg 325 mg PO BID PRN Iron Levels 05/11/20 05/19/24 05/18/24 History iron) tablet,delayed release cyanocobalamin (vitamin B-12) 1,000 mcg PO DAILY 10/17/20 05/19/24 05/18/24 History 1,000 mcg tablet midodrine 5 mg tablet 5 mg PO TID 03/25/23 05/19/24 05/18/24 History acetaminophen 500 mg capsule 1,000 mg PO Q8H PRN Pain 08/10/23 05/19/24 05/18/24 History (Mapap (acetaminophen)) fluticasone propionate 50 1 spray intranasal DAILY PRN 08/10/23 05/19/24 05/18/24 History mcg/actuation nasal Allergy Symptoms spray,suspension [id number] 45 mg-folic 1 cap PO DAILY 08/10/23 05/19/24 05/18/24 History acid 800 mcg-vit K 120 mcg capsule (Bariatric Multivitamins) parenteral amino acid 15% no.5 15 0.5 ea IV MOWEFR@0900 08/10/23 04/25/24 04/23/24 History % combination no.5 intravenous solution (Clinisol SF) sucralfate 1 gram tablet 1 g PO BID 08/10/23 05/19/24 05/18/24 History pantoprazole 40 mg tablet,delayed 40 mg PO DAILY@0630 04/25/24 05/19/24 05/18/24 History release omeprazole 40 mg capsule,delayed 40 mg PO BID 05/19/24 05/19/24 Unknown History release zinc acetate 50 mg (zinc) capsule 50 mg PO DAILY 05/19/24 05/19/24 Unknown History Exam Height,Weight and Vital Signs: Height 5 ft 5 in Weight 65.7 kg Last Vital Signs Temp 98.1 F 05/20/24 08:43 Pulse 76 05/20/24 08:43 Resp 18 05/20/24 08:43 BP 123/70 05/20/24 08:43 Pulse Ox 100 05/20/24 08:43 O2 Del Method Room Air 05/20/24 08:43 Pertinent Lab Results Pertinent Lab Results: Laboratory Tests 05/18/24 05/18/24 05/18/24 19:19 19:57 20:18 WBC 5.2 RBC 2.16 L D Hgb 6.9 L* D Hct 20.2 L* D MCV 93.5 MCH 31.9 MCHC 34.2 RDW 13.8 Plt Count 232 MPV 9.3 L Immature Gran % (Auto) 0.6 H Neut % (Auto) 43.1 L Lymph % (Auto) 41.6 H [place] % (Auto) 11.0 Eos % (Auto) 3.3 Baso % (Auto) 0.4 Lymph # (Auto) 2.2 [place] # (Auto) 0.6 Eos # (Auto) 0.2 Baso # (Auto) 0.0 Abs Immat Gran (auto) 0.03 Absolute Neuts (auto) 2.2 Absolute Nucleated RBC 0.000 Nucleated RBC % (auto) 0.0 Smear Path Review SEE NOTE Sodium 134 L Potassium 3.0 L D Chloride 99 Carbon Dioxide 26 Anion Gap 12 BUN 37 H Creatinine 4.84 H* Estim Creat Clear Calc 12.2 Estimated GFR 9 POC Glucose 130 H Random Glucose 56 L* Calcium 8.5 D Magnesium 1.9 Total Bilirubin 0.4 AST 17 ALT 8 Alkaline Phosphatase 98 Troponin I High Sens 4.4 Total Protein 5.4 L Albumin 3.1 L Lipase 45 Stool Occult Blood POSITIVE Influenza Type A (PCR) NEGATIVE Influenza Type B (PCR) NEGATIVE RSV RNA Qual (PCR) NEGATIVE SARS-CoV-2 RNA (RT-PCR) NEGATIVE Blood Type O Positive Antibody Screen NEGATIVE Crossmatch See Detail 05/18/24 05/19/24 05/19/24 22:00 00:06 04:44 WBC 6.2 RBC 2.80 L D Hgb 8.6 L D Hct MCV MCH MCHC RDW Plt Count MPV Immature Gran % (Auto) Neut % (Auto) Lymph % (Auto) [place] % (Auto) Eos % (Auto) Baso % (Auto) Lymph # (Auto) [place] # (Auto) Eos # (Auto) Baso # (Auto) Abs Immat Gran (auto) Absolute Neuts (auto) Absolute Nucleated RBC Nucleated RBC % (auto) Smear Path Review Sodium Potassium Chloride Carbon Dioxide Anion Gap BUN Creatinine Estim Creat Clear Calc Estimated GFR POC Glucose 81 147 H Random Glucose Calcium Magnesium Total Bilirubin AST ALT Alkaline Phosphatase Troponin I High Sens Total Protein Albumin Lipase Stool Occult Blood Influenza Type A (PCR) Influenza Type B (PCR) RSV RNA Qual (PCR) SARS-CoV-2 RNA (RT-PCR) Blood Type Antibody Screen Crossmatch 05/19/24 05/19/24 05/19/24 04:44 04:44 11:12 WBC RBC Hgb Cancelled Hct 25.1 L D Cancelled MCV 89.6 MCH 30.7 MCHC 34.3 RDW 14.4 Plt Count 223 MPV 9.5 Immature Gran % (Auto) Neut % (Auto) Lymph % (Auto) [place] % (Auto) Eos % (Auto) Baso % (Auto) Lymph # (Auto) [place] # (Auto) Eos # (Auto) Baso # (Auto) Abs Immat Gran (auto) Absolute Neuts (auto) Absolute Nucleated RBC 0.000 Nucleated RBC % (auto) 0.0 Smear Path Review Sodium 135 Potassium 3.9 D Chloride 99 Carbon Dioxide 23 Anion Gap 17 BUN 41 H Creatinine 4.92 H* Estim Creat Clear Calc 12.0 Estimated GFR 9 POC Glucose 81 Random Glucose 76 Calcium 8.6 Magnesium 2.0 Total Bilirubin AST ALT Alkaline Phosphatase Troponin I High Sens Total Protein Albumin Lipase Stool Occult Blood Influenza Type A (PCR) Influenza Type B (PCR) RSV RNA Qual (PCR) SARS-CoV-2 RNA (RT-PCR) Blood Type Antibody Screen Crossmatch 05/20/24 07:00 WBC 4.7 L RBC 3.08 L Hgb 9.4 L Hct 28.4 L MCV 92.2 MCH 30.5 MCHC 33.1 RDW 14.4 Plt Count 255 MPV 10.0 Immature Gran % (Auto) Neut % (Auto) Lymph % (Auto) [place] % (Auto) Eos % (Auto) Baso % (Auto) Lymph # (Auto) [place] # (Auto) Eos # (Auto) Baso # (Auto) Abs Immat Gran (auto) Absolute Neuts (auto) Absolute Nucleated RBC 0.000 Nucleated RBC % (auto) 0.0 Smear Path Review Sodium 137 Potassium 4.3 Chloride 99 Carbon Dioxide 30 H Anion Gap 12 BUN 18 H Creatinine 3.37 H Estim Creat Clear Calc 17.5 Estimated GFR 14 POC Glucose Random Glucose 68 Calcium 8.7 Magnesium Total Bilirubin AST ALT Alkaline Phosphatase Troponin I High Sens Total Protein Albumin Lipase Stool Occult Blood Influenza Type A (PCR) Influenza Type B (PCR) RSV RNA Qual (PCR) SARS-CoV-2 RNA (RT-PCR) Blood Type Antibody Screen Crossmatch Airway Mallampati Class: II TM Dist: >3cm Neck ROM: Full Loose/Missing/Broken Teeth: Yes and Upper Assessment and Plan Assessment Anesthesia Assessment: Anesthesia Plan Discussed and Chart Reviewed Final Anesthetic Review Family History of Problems with Anesthesia: No History of Problems with Anesthesia: No NPO: Yes ASA Class: IV Final Preanesthetic Review: No Changes in Pt Med Stat, Meds/Allgs Chart Reviewed, Consent Obtained/Reviewed and Anes Risks/Benef Reviewed Patient Risk: High Procedure Risk: Low Anesthetic Plan Anesthetic Plan: TIVA Disposition: Standard PACU
--- NOTE | 2024-05-20 09:29 | W.PM.OPN ---
Operative Note Operative Note Date of Service: 05/20/24 Narrative: Procedure Description: EGD Indication: Anemia Anesthesia: MAC FLEXIBLE TRANSORAL UPPER GASTROINTESTINAL ENDOSCOPY UPPER ENDOSCOPY Consent: Indications for the procedure and potential complications of bleeding, perforation, reaction to medications and missed diagnosis were discussed with the patient and informed consent was obtained. Instrument: Olympus GIF H 190 J mid size upper endoscope Monitoring: Vital signs and clinical assessment, continuous EKG monitoring, Pulse oximetry, Carbon Dioxide monitoring and blood pressure monitoring were done throughout the procedure. Procedure: The patient was placed in the left lateral decubitis position and pre-procedure medications were administered and a bite block was placed. The endoscope was inserted into the mouth and advanced under direct vision to the jejunum. A careful inspection was made as the upper endoscope was withdrawn including a retroflexed examination of the proximal stomach; Findings and interventions are described below. Findings: Larynx:normal Esophagus: GE junction at 38 cm, diaphragm hiatus at 38 cm, normal mucosa Stomach pouch: congested mucosa with diffuse erythema . Biopsies were obtained. Grade 2 flap valve on retroflexed examination of the cardia. There was an ulcer at the anastomosis, had improved as compared to before, x 2 clips still attached. On the anterior side there was a 8-10 mm punched out hollow ulcer, x 1 clip applied as there was slight oozing. Another smaller erosion noted. jejunum: normal Intervention: Biopsies as noted above, Impression/Findings: gastritis, and congestion anastomotic ulcers -no major active bleeding PLAN: repeat duplex to r/o worsening ischemia BId dosing PPI, open capsule and mix with apple sauce carafate 1 g BID GERD precautions await bx
[2024-05-20] MEDS: HYDROmorphone HCl 0.5 MG/0.5 ML SYRINGE 0.25 MG IVPUSH ×3 (10:13→20:10)
[2024-05-20] MEDS: Sevelamer Carbonate Tablet 800 MG TABLET 1600 MG PO ×3 (10:14→17:48)
[2024-05-20] MEDS: ondansetron HCL 4 MG/2 ML VIAL IVPUSH (10:14)
[2024-05-20] MEDS: carvediloL 6.25 MG TABLET PO ×2 (10:15→20:03)
[2024-05-20] MEDS: Sucralfate Oral Suspension 1 GM/10 ML ORAL.SUSP PO ×3 (10:15→20:02)
[2024-05-20] MEDS: Zinc Sulfate 220 MG CAPSULE PO (10:15)
[2024-05-20] MEDS: Multivitamin TABLET 1 TAB PO (10:15)
[2024-05-20] MEDS: Cyanocobalamin (Vitamin B-12) 1,000 MCG TABLET 1000 MCG PO (10:15)
[2024-05-20] MEDS: Pyridoxine HCl (Vitamin B6) 50 MG TABLET PO (10:15)
[2024-05-20] MEDS: Thiamine HCL 100 MG TABLET PO (10:15)
[2024-05-20] MEDS: Gabapentin 400 MG CAPSULE PO ×2 (10:15→20:03)
[2024-05-20] MEDS: Escitalopram Oxalate 10 MG TABLET PO (10:15)
[2024-05-20] MEDS: 0.9 % Sodium Chloride Flush 3 ML SYRINGE IVFLUSH ×3 (10:25→20:02)
--- NOTE | 2024-05-20 12:23 | P.CONNP_ITS ---
History of Present Illness Reason for Consult Consult date: 05/20/24 Chief Complaint Chief complaint: GI bleed History of Present Illness Narrative: 53-year-old female with history of ESRD admitted with GI bleed. In summary she presented to the ED due to melena for the past 3 days with dizziness, nausea and upper abdominal discomfort. She was found to have heme positive stool. Patient was given2 units PRBC and is seen for possible revision of anastomosis. 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 Lumbar back pain with radiculopathy affecting left lower extremity Physical exam (~02/14/21) Peritoneal dialysis catheter in place Polyarthralgia Dyslipidemia Family history of ovarian cancer Abnormal mammogram of right breast Angina pectoris syndrome Chest pain Constipation Nephrosclerosis Renal interstitial fibrosis Obesity (BMI 30-39.9) Back pain GERD (gastroesophageal reflux disease) History of headache HTN (hypertension) Family History Family History Father Asthma Mother Asthma Hypertension Ovarian cancer Maternal Grandfather Myocardial infarction Paternal Grandmother Stroke Surgical History Surgical History S/P arteriovenous (AV) graft placement History of sleeve gastrectomy Fistula Hx of colonoscopy Hx of hysterectomy Hx of tubal ligation History of endometrial ablation Social History Social History Household Members: Children Household Members Other:: 30 year old special needs son Housing: Apartment Are you a primary resident care provider to a significant other at home: No Do you presently have visiting nurse or other home services: No Alcohol intake: current Alcohol intake frequency: holidays/special occasions only Alcohol type: beer Comment: Patient doesn't want bed alarm on Patient Tobacco Use Status: Former Tobacco user Tobacco use type: Cigarette Cigarette Packs Per Day: 1 Cigarettes Per Day: 20.0 Years Smoked: 10+ e-Cigarette/Vaping Use: Currently Using Second Hand Smoke Exposure: No Substance Use Type: Caffiene Advance Directives Date on File: 04/27/20 service: No Current occupational status: employed Cognitive needs: No Hearing needs: No Vision needs: Yes (reading glasses) Meds Allergies Allergy/AdvReac Type Severity Reaction Status Date / Time ibuprofen Allergy Severe Unknown Verified 05/18/24 19:11 nifedipine Allergy Intermediate hives, leg Verified 05/18/24 19:11 edema Active Medications: Current Medications Acetaminophen (Acetaminophen 325 Mg Tablet) 650 mg PO Q6H PRN PRN Reason: Pain, Mild 1-3,fever,headache Calcium Carbonate (Calcium Carbonate 750 Mg Tab.Chew) 750 mg PO Q4H PRN PRN Reason: Heartburn Carvedilol (Carvedilol 6.25 Mg Tablet) 6.25 mg PO BID [facility]; Protocol Last Admin: 05/20/24 10:15 Dose: 6.25 mg Cyanocobalamin (Cyanocobalamin (Vitamin B-12) 1,000 Mcg Tablet) 1,000 mcg PO DAILY [facility] Last Admin: 05/20/24 10:15 Dose: 1,000 mcg Ergocalciferol (Ergocalciferol (Vitamin D2) 1,250 Mcg Capsule) 1,250 mcg PO [facility] Escitalopram Oxalate (Escitalopram Oxalate 10 Mg Tablet) 10 mg PO DAILY [facility] Last Admin: 05/20/24 10:15 Dose: 10 mg Ferrous Sulfate (Ferrous Sulfate 324 Mg Tablet.Dr) 324 mg PO BID PRN PRN Reason: Iron Levels Fluticasone Propionate (Fluticasone Propionate Nasal 16 Gm [place]) 1 spray NOSTRIL-B DAILY PRN PRN Reason: Allergy Symptoms Gabapentin (Gabapentin 400 Mg Capsule) 400 mg PO BID [facility] Last Admin: 05/20/24 10:15 Dose: 400 mg Hydromorphone HCl (Hydromorphone Hcl 0.5 Mg/0.5 Ml Syringe) 0.25 mg IVPUSH Q4H PRN; Protocol PRN Reason: Pain, Moderate(Pain Scale 4-6) Last Admin: 05/20/24 10:13 Dose: 0.25 mg Magnesium Hydroxide (Milk Of Magnesia 30 Ml Oral.Susp) 30 ml PO DAILY PRN PRN Reason: Constipation Melatonin (Melatonin 3 Mg Tablet) 6 mg PO BEDTIME PRN PRN Reason: Insomnia Multivitamins/Vitamin C (Multivitamin Tablet) 1 tab PO DAILY [facility] Last Admin: 05/20/24 10:15 Dose: 1 tab Naloxone HCl (Naloxone Hcl 0.4 Mg/Ml Vial) 0.04 mg IVPUSH Q5M PRN PRN Reason: Excessive sedation or RR < 8 Ondansetron HCl (Ondansetron Hcl 4 Mg/2 Ml Vial) 4 mg IVPUSH Q8H PRN PRN Reason: Nausea and Vomiting Last Admin: 05/20/24 10:14 Dose: 4 mg Pantoprazole Sodium (Pantoprazole Sodium 40 Mg/10 Ml Vial) 40 mg IVPUSH BID@0630,1630 [facility] Last Admin: 05/20/24 06:16 Dose: 40 mg Pyridoxine HCl (Pyridoxine Hcl (Vitamin B6) 50 Mg Tablet) 50 mg PO DAILY [facility] Last Admin: 05/20/24 10:15 Dose: 50 mg Sevelamer Carbonate (Sevelamer Carbonate Tablet 800 Mg Tablet) 1,600 mg PO TIDWM [facility] Last Admin: 05/20/24 12:20 Dose: 1,600 mg Sodium Chloride (0.9 % Sodium Chloride Flush 3 Ml Syringe) 3 ml IVFLUSH QSHIFT [facility] Last Admin: 05/20/24 10:25 Dose: 3 ml Sucralfate (Sucralfate Oral Suspension 1 Gm/10 Ml Oral.Susp) 1 gm PO QIDACHS [facility] Last Admin: 05/20/24 12:22 Dose: Not Given Thiamine HCl (Thiamine Hcl 100 Mg Tablet) 100 mg PO DAILY [facility] Last Admin: 05/20/24 10:15 Dose: 100 mg Zinc Sulfate (Zinc Sulfate 220 Mg Capsule) 220 mg PO DAILY [facility] Last Admin: 05/20/24 10:15 Dose: 220 mg Home Medications ?Medication ?Instructions ?Recorded ?Confirmed ?Last Taken ?Type ferrous sulfate 325 mg (65 mg 325 mg PO BID PRN Iron Levels 05/11/20 05/19/24 05/18/24 History iron) tablet,delayed release cyanocobalamin (vitamin B-12) 1,000 mcg PO DAILY 10/17/20 05/19/24 05/18/24 History 1,000 mcg tablet midodrine 5 mg tablet 5 mg PO TID 03/25/23 05/19/24 05/18/24 History acetaminophen 500 mg capsule 1,000 mg PO Q8H PRN Pain 08/10/23 05/19/24 05/18/24 History (Mapap (acetaminophen)) fluticasone propionate 50 1 spray intranasal DAILY PRN 08/10/23 05/19/24 05/18/24 History mcg/actuation nasal Allergy Symptoms spray,suspension [id number]-[id number]-drzg 45 mg-folic 1 cap PO DAILY 08/10/23 05/19/24 05/18/24 History acid 800 mcg-vit K 120 mcg capsule (Bariatric Multivitamins) parenteral amino acid 15% no.5 15 0.5 ea IV MOWEFR@0900 08/10/23 04/25/24 04/23/24 History % combination no.5 intravenous solution (Clinisol SF) sucralfate 1 gram tablet 1 g PO BID 08/10/23 05/19/24 05/18/24 History pantoprazole 40 mg tablet,delayed 40 mg PO DAILY@0630 04/25/24 05/19/24 05/18/24 History release omeprazole 40 mg capsule,delayed 40 mg PO BID 05/19/24 05/19/24 Unknown History release zinc acetate 50 mg (zinc) capsule 50 mg PO DAILY 05/19/24 05/19/24 Unknown History Physical Exam Vital Signs: Last Vital Signs Temp 97.6 F 05/20/24 10:33 Pulse 69 05/20/24 10:33 Resp 16 05/20/24 10:33 BP 136/67 05/20/24 10:33 Pulse Ox 99 05/20/24 10:33 O2 Del Method Room Air 05/20/24 10:33 BMI result Body Mass Index 24.1 Const General: no acute distress HEENT Head: Yes normocephalic and Yes atraumatic Resp Auscultation: diminished lung sounds Cardio Heart sounds: S1 normal heart sound present and S2 normal heart sound present GI Palpation (GI): Soft to palpation and nontender Extrem General: No edema Results Lab Results 05/20/24 07:00 05/20/24 07:00 Lab results: Chemistry 05/18/24 05/19/24 05/20/24 19:19 04:44 07:00 Sodium 134 L 135 137 Potassium 3.0 L D 3.9 D 4.3 Carbon Dioxide 26 23 30 H BUN 37 H 41 H 18 H Creatinine 4.84 H* 4.92 H* 3.37 H Calcium 8.5 D 8.6 8.7 Hematology 05/18/24 05/19/24 05/19/24 19:19 04:44 04:44 WBC 5.2 6.2 Hgb 6.9 L* D 8.6 L D Cancelled Plt Count 232 223 05/20/24 07:00 WBC 4.7 L Hgb 9.4 L Plt Count 255 Assessment and Plan (1) ESRD (end stage renal disease): Status: Acute (2) GI bleed: Status: Acute (3) Anemia: Status: Acute Plan ESRD on HD at [facility] via AVF admitted with recurrent GI bleed secondary to gastric pouch ulcers recent endoscopy by Dr. Urban suggestive of recurrent ulcers at GJ anastomosis with possible ischemia, combination of nephrogenic and GI bleed REC HD in am HARDEEP per protocol blood transfusion as needed reduce gabapentin to 300 mg daily (ESRD dose is 300 mg on non HD day) renal diet P binders Procedures Date of Service Date of Service: 05/20/24
[2024-05-21 02:47] VITALS: BP 110/61; PULSE 80; RESP 18; TEMP 36.5; O2SAT 96
[2024-05-21] MEDS: Pantoprazole Sodium 40 MG/10 ML VIAL IVPUSH (05:55)
[2024-05-21] MEDS: HYDROmorphone HCl 0.5 MG/0.5 ML SYRINGE 0.25 MG IVPUSH ×2 (06:00→10:12)
[2024-05-21 07:17] VITALS: BP 106/56; PULSE 72; RESP 16; TEMP 36.4; O2SAT 98
--- NOTE | 2024-05-21 07:37 | PC.NURSE ---
Addendum entered by Jurgen Bellamy RN 05/21/24 14:35: pt requested stronger pain med for home and md kyle informed Addendum entered by Jurgen Bellamy RN 05/21/24 12:08: per speech/language therapist 1kg removed Original Note: messaged - fygertrude [id number] [place] - low bp this AM 106/56. holding carvedilol but giving adele for chronic back pain. pt going to dialysis this AM
[2024-05-21] MEDS: Pyridoxine HCl (Vitamin B6) 50 MG TABLET PO (07:47)
[2024-05-21] MEDS: Gabapentin 400 MG CAPSULE PO (07:47)
[2024-05-21] MEDS: Zinc Sulfate 220 MG CAPSULE PO (07:47)
[2024-05-21] MEDS: Escitalopram Oxalate 10 MG TABLET PO (07:47)
[2024-05-21] MEDS: Cyanocobalamin (Vitamin B-12) 1,000 MCG TABLET 1000 MCG PO (07:47)
[2024-05-21] MEDS: Sevelamer Carbonate Tablet 800 MG TABLET 1600 MG PO ×2 (07:47→12:20)
[2024-05-21] MEDS: Sucralfate Oral Suspension 1 GM/10 ML ORAL.SUSP PO ×2 (07:47→12:20)
[2024-05-21] MEDS: Thiamine HCL 100 MG TABLET PO (07:47)
[2024-05-21] MEDS: Multivitamin TABLET 1 TAB PO (07:47)
[2024-05-21] MEDS: Acetaminophen 325 MG TABLET 650 MG PO (07:51)
[2024-05-21 07:56] LABS: Hematocrit 27.1 % (37.0-47.0); Hemoglobin 9.1 g/dl (12.0-16.0); Mean Corpuscular HGB Conc 33.6 g/dl (31.0-35.0); Mean Corpuscular Hemoglobin 31.1 pg (27.0-33.0); Mean Corpuscular Volume 92.5 fL (80.0-98.0); Mean Platelet Volume 10.1 fL (9.4-12.3); Platelet Count 227 X10*3/uL (160-400); Red Blood Count 2.93 X10*6/uL (4.20-5.50); Red Cell Distribution Width 13.8 % (11.0-16.0); White Blood Count 4.8 X10*3/uL (4.8-10.8)
--- NOTE | 2024-05-21 08:05 | HO.POSTANES ---
Post Anesthesia Evaluation Post Anesthesia Evaluation Date of Service: 05/21/24 Vital Signs: Vital Signs Temp Pulse Resp BP Pulse Ox O2 Del Method 05/21/24 07:17 97.5 F 72 16 106/56 L 98 Room Air 05/21/24 02:47 97.7 F 80 18 110/61 96 Room Air Anesthesia: Monitored Mental Status: Awake Pain Control: Satisfactory Nausea/Vomiting: None Hydration: Adequate Anesthesia-Related Issues: No Anes. Related Issues
[2024-05-21 08:19] LABS: Anion Gap 11 (12-20); Blood Urea Nitrogen 26 mg/dL (9-16); Calcium 8.6 mg/dL (8.4-10.2); Carbon Dioxide 28 mmol/L (22-29); Chloride 101 mmol/L (96-108); Estimated Glomerular Filt Rate 10; Glucose Random 65 mg/dL (60-115); Potassium 4.4 mmol/L (3.3-5.1); Sodium 136 mmol/L (135-145)
--- NOTE | 2024-05-21 08:48 | P.DS_ITS ---
DS: Providers Provider Date of Service: 05/21/24 Date of admission: 05/19/24 01:49 Date of discharge: 05/21/24 Primary care physician: Rozina Lang MD Consults: 05/19/24 01:48 Consult to Bariatric Surgery Routine Consulting Provider: Jr Berry Reason for consultation: recurrent GI bleed from ulcers at g-j anastamosis Consult to Gastroenterology Routine Consulting Provider: Brandan Dixon Reason for consultation: recurrent GI bleed Has provider been notified: No 05/19/24 01:56 Consult to Nephrology Routine Consulting Provider: Kwesi Gonzalez Reason for consultation: ESRD on HD MWF Has provider been notified: No 05/19/24 09:29 Consult to Vascular Surgery Routine Consulting Provider: [facility] Reason for consultation: SMA stenosis DS: Diagnosis Discharge Diagnosis (1) ESRD (end stage renal disease): Status: Acute (2) GI bleed: Status: Acute (3) Anemia: Status: Acute DS: Summary Hospital Course Hospital Course: admission hpi Chief Complaint: Melena Patient is a 53-year-old female with a past medical history significant for 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 Moody, recent endoscopy by Dr. Urban suggestive of recurrent ulcers at GJ anastomosis with possible ischemia, ESRD on HD MWF, HLD, GERD, HTN and chronic back pain, who presented to the ED due to melena for the past 3 days with dizziness, nausea and upper abdominal discomfort. This feels exactly the same as previous history of GI bleeds. She denies any headache, fever, chills, vomiting. She has had some diarrhea. No upper respiratory symptoms or urinary tract symptoms. She reports that she has been eating and drinking over the past few days normally. hospital course: Patient presented with melana and acute blood loss anemia, she has history of recurrent gib bleed from gastric pouch ulcer ulcers related prior bariatric surgery. Her hemoglobin was 6.8 and was transfused with 2 units of rbc on 05/18 with good effect and presently hemoglobin is 9.1, additionally she was treated with IV PPI and oral karafate. She underwent EGD by Dr. Moody on 05/20 with the following findings and recommendations: Findings gastritis, and congestion anastomotic ulcers -no major active bleeding PLAN: repeat duplex to r/o worsening ischemia BId dosing PPI, open capsule and mix with apple sauce carafate 1 g BID GERD precautions await bx Dr. Moody recommended repeating Mesenteric US to rule out ischemia, she has know history of mesenteric stenosis. US showed ... She was evaluated by vascular surgery with no indication for intervention, at this time she's not having any suggestive of mesanteric ischemia. She is advised to follow up with her bariatric surgeon. Final diagnoses: Acute gi bleeding Acute blood loss anemia Gastric ulcer Hypoglycemia mesanteric stenosis CKD 5 Time Attestation Discharge Coordination Time (in mins): 45 Quality: Safe Use of Opioids Does Pt have an Active Cancer Diagnosis on the Problem List?: No Quality: Stroke Does the patient have a stroke diagnosis?: No Physical Exam Vital Signs: Vital Signs: Last Vital Signs Temp 97.5 F 05/21/24 07:17 Pulse 72 05/21/24 07:17 Resp 16 05/21/24 07:17 BP 106/56 L 05/21/24 07:17 Pulse Ox 98 05/21/24 07:17 O2 Del Method Room Air 05/21/24 07:17 BMI result Body Mass Index 24.1 Const: Other: General: AO X 3, no acute distress Resp: CTA bilateral CVS: S1,S2,RRR GI: +BS, NT, no distention Skin: No rash Neuro: motor grossly intact Psych: appropriate affect DS: Data Data Completed and Pending Completed studies during hospitalization [Text1]: Procedures Control Bleeding in Gastrointestinal Tract, Via Natural or Artificial Opening Endoscopic (11/19/23) Excision of Stomach, Pylorus, Via Natural or Artificial Opening Endoscopic, Diagnostic (08/10/23) Inspection of Upper Intestinal Tract, Via Natural or Artificial Opening Endoscopic (04/24/24) Introduction of Mineral-based Topical Hemostatic Agent into Upper GI, Via Natural or Artificial Opening Endoscopic, [employer] 6 (11/19/23) Performance of Urinary Filtration, Intermittent, Less than 6 Hours Per Day (04/24/24) Transfusion of Nonautologous Red Blood Cells into Peripheral Vein, Percutaneous Approach (04/24/24) Pending studies at discharge: Pending at discharge 05/20/24 09:29 Surgical [PTH] Routine Labs on day of discharge: Laboratory Results - last 24 hr 05/21/24 05:33 WBC 4.8 RBC 2.93 L Hgb 9.1 L Hct 27.1 L MCV 92.5 MCH 31.1 MCHC 33.6 RDW 13.8 Plt Count 227 MPV 10.1 Absolute Nucleated RBC 0.000 Nucleated RBC % (auto) 0.0 Sodium 136 Potassium 4.4 Chloride 101 Carbon Dioxide 28 Anion Gap 11 L BUN 26 H Creatinine 4.53 H* Estim Creat Clear Calc 13.0 Estimated GFR 10 Random Glucose 65 Calcium 8.6 Discharge Plan Discharge Anticipated Discharge Date/Time: 05/21/24 09:03 Patient Disposition: Home, Self-Care Discharge Diagnosis: Acute blood loss anemia, Acute gi bleeding, gastric ulcers Referrals: Rozina Nicole MD [Primary Care Provider] - 1 Week Discharge Medications: New ondansetron 4 mg tablet,disintegrating 4 mg PO Q8H PRN (Reason: nausea and vomiting) Qty: 20 0RF Continued thiamine HCl (vitamin B1) 100 mg tablet 100 mg PO DAILY 90 Days Qty: 90 0RF vitamin A 2,400 mcg capsule 2,400 mcg PO DAILY 90 Days Qty: 90 1RF citalopram 20 mg tablet 20 mg PO DAILY 90 Days Qty: 90 1RF carvedilol 6.25 mg tablet 6.25 mg PO BID 90 Days Qty: 180 1RF gabapentin 400 mg capsule 400 mg PO BID 90 Days Qty: 180 1RF pyridoxine (vitamin B6) 50 mg tablet 50 mg PO DAILY 90 Days Qty: 90 1RF sevelamer carbonate 800 mg tablet 1,600 mg PO TIDWM 30 Days Qty: 180 6RF ergocalciferol (vitamin D2) [Vitamin D2] 1,250 mcg (50,000 unit) capsule 1,250 mcg PO QWEEK 30 Days Qty: 5 6RF cyanocobalamin (vitamin B-12) 1,000 mcg Tablet 1,000 mcg PO DAILY sucralfate 1 gram tablet 1 g PO BID acetaminophen [Mapap (acetaminophen)] 500 mg capsule 1,000 mg PO Q8H PRN (Reason: Pain) Clinisol SF 15 % 15 % parenteral solution 0.5 ea IV MOWEFR@0900 Rx Instructions: DIALYSIS MEDICATION Bariatric Multivitamins 45 mg iron- 800 mcg-120 mcg Capsule 1 cap PO DAILY fluticasone propionate 50 mcg/actuation spray,suspension 1 spray intranasal DAILY PRN (Reason: Allergy Symptoms) Rx Instructions: administer into each nostril ondansetron 4 mg tablet,disintegrating 4 mg PO Q8H PRN (Reason: nausea and vomiting) Qty: 10 0RF zinc acetate 50 mg (zinc) Capsule 50 mg PO DAILY omeprazole 40 mg capsule,delayed release(DR/EC) 40 mg PO BID Qty: 180 0RF melatonin 10 mg capsule 10 mg PO BEDTIME PRN (Reason: sleep) 90 Days Qty: 90 1RF ferrous sulfate 325 mg (65 mg iron) tablet,delayed release (DR/EC) 325 mg PO BID PRN (Reason: Iron Levels) midodrine 5 mg tablet 5 mg PO TID Discontinued pantoprazole 40 mg tablet,delayed release (DR/EC) 40 mg PO DAILY@0630 Discharge Orders: Discharge Order (Routine); Ordered 05/21/24 Ordered By: Lul Pagan Diet: Advance to usual diet Activity on Discharge: As tolerated Stand Alone Forms: Patient Portal Discharge page Print Language: Estonian Care Plan Goals: recovery from gi bleeding and anemia Health Concerns: recurrent gi bleeding, gastritisis and anemia Plan of Treatment: gastritis, and congestion anastomotic ulcers -no major active bleeding Take Omeprazole twice a day, open capsule and mix with apple sauce carafate 1 g BID Follow up with your PCP in a week, follow up with your bariatric sugeon in 1 to 2 week, avoid over the counter pain medication such ibuprofen or aspirin await bx Assessment: see above
--- NOTE | 2024-05-21 09:20 | MHC.CM.NN ---
PT TO DC HOME TODAY WITH NO NEW SERVICES VIA FAMILY TRANSPORT
[2024-05-21 12:38] VITALS: BP 134/68; PULSE 76; RESP 16; TEMP 36.9; O2SAT 100
[2024-05-21 15:08] VITALS: BP 126/65; PULSE 79; RESP 16; TEMP 36.6; O2SAT 100
--- NOTE | 2024-05-22 10:46 | P.CDIM_ITS ---
PROVIDER RESPONSE TEXT: To clarify, the appropriate diagnosis supported by the clinical indicators: Acute QUERY TEXT: PHYSICIAN'S DOCUMENTATION REQUEST Date of Query: 05/20/2024 10:20 AM EDT Patient Name: Meliza Olguin Admit Date: 05/19/2024 Dear Lul Pagan MD, A review of the medical record indicates additional documentation may be needed. Please review below and update the documentation accordingly. Clinical Indicators: admit with recurrent GIB secondary to gastric pouch ulcers stool heme + transfusion and EGD, Pantoprazole and Karafate Clarify which of the following accurately represents the acuity of the Gastric Ulcer . Possible options might include: Acute Acute on chronic Other (explain) Clinically unable to determine (explain) Thank you, Yin Brown RN Use of terms such as suspected, likely, concern for, or probable (associated with a specific diagnosi s that is being evaluated, monitored, or treated as if it exists) are acceptable and can be coded in the inpatient se tting, when documented at the time of discharge. Please use your independent medical judgment in providing your response. THIS QUERY IS PART OF THE PERMANENT MEDICAL RECORD
== END 2024-05-21 15:14 | disposition home or self-care (01) | DRG 377 ==
LOC: HO.ED 23:21 → HO.EDOVER 05-19 01:59 → HO.S3 05-19 10:45
PROVIDERS: Internal Medicine Gastroenterology; Physician Assistant Medical; Admitting Provider Physician Assistant; Emergency Provider Emergency Medicine; PCP Internal Medicine; Visit Provider Internal Medicine
PROC: 0DJ08ZZ Inspection of Upper Intestinal Tract, Via Natural or Artificial Opening Endoscopic (ICD-10-PCS; CPT 43235; principal; 2024-05-20 14:50)
DX: K25.0 Acute gastric ulcer with hemorrhage (principal); N18.6 End stage renal disease; I12.0 Hypertensive chronic kidney disease with stage 5 chronic kidney disease or end stage renal disease; D62 Acute posthemorrhagic anemia; Z99.2 Dependence on renal dialysis; E78.5 Hyperlipidemia, unspecified; K21.9 Gastro-esophageal reflux disease without esophagitis; D63.1 Anemia in chronic kidney disease; I77.1 Stricture of artery; E87.6 Hypokalemia; E16.2 Hypoglycemia, unspecified; Z20.822 Contact with and (suspected) exposure to COVID-19; Z98.84 Bariatric surgery status; Z79.899 Other long term (current) drug therapy
CPT/HCPCS: 0241U; 36415; 71045; 80048; 80053; 82272; 82947; 83690; 83735; 84484; 85025; 85027; 86850; 86900; 86901; 86923; 88305; 88313; 88342; 90999; 93005; 93976; 99285; J1171; J2003; J2270; J2405; J2470; J2704; P9016

== ENCOUNTER → 2024-05-18 19:20 | Outpatient (BNV) | payer MEDICARE, MEDICAID, SELFPAY | PROVIDERS: Admitting Provider Physician Assistant; Emergency Provider Emergency Medicine; PCP Internal Medicine; Visit Provider Internal Medicine Cardiovascular Disease | DX: R94.31 Abnormal electrocardiogram [ECG] [EKG] (principal); R42 Dizziness and giddiness | CPT/HCPCS: 93010 ==

== ENCOUNTER → 2024-05-18 19:30 | Outpatient (BNV) | payer MEDICARE, MEDICAID, SELFPAY | PROVIDERS: Visit Provider Radiology Neuroradiology | DX: R07.9 Chest pain, unspecified (principal) | CPT/HCPCS: 71045 ==

== ENCOUNTER 2024-05-19 01:49 | Outpatient (BNV) | payer MEDICARE, MEDICAID, SELFPAY | END 2024-05-20 17:05 | PROVIDERS: Admitting Provider Physician Assistant; Emergency Provider Emergency Medicine; PCP Internal Medicine; Visit Provider Radiology Diagnostic Radiology | DX: I77.4 Celiac artery compression syndrome (principal) | CPT/HCPCS: 93976 ==

== ENCOUNTER → 2024-05-19 01:49 | Outpatient (BNV) | payer MEDICARE, MEDICAID, SELFPAY | PROVIDERS: Admitting Provider Physician Assistant; Emergency Provider Emergency Medicine; PCP Internal Medicine; Visit Provider Internal Medicine Gastroenterology | DX: K92.2 Gastrointestinal hemorrhage, unspecified (principal) | CPT/HCPCS: 99223 ==

== ENCOUNTER → 2024-05-19 01:49 | Outpatient (BNV) | payer MEDICARE, MEDICAID, SELFPAY | PROVIDERS: Admitting Provider Physician Assistant; Emergency Provider Emergency Medicine; PCP Internal Medicine; Visit Provider Physician Assistant Surgical | DX: K55.1 Chronic vascular disorders of intestine (principal) | CPT/HCPCS: 99222 ==

== ENCOUNTER → 2024-05-19 01:49 | Outpatient (BNV) | payer MEDICARE, MEDICAID, SELFPAY | PROVIDERS: Admitting Provider Physician Assistant; Emergency Provider Emergency Medicine; PCP Internal Medicine; Visit Provider Internal Medicine | DX: N18.6 End stage renal disease (principal); Z99.2 Dependence on renal dialysis; K92.2 Gastrointestinal hemorrhage, unspecified; E87.6 Hypokalemia; E16.2 Hypoglycemia, unspecified | CPT/HCPCS: 99223; 99232; 99239; 99499 ==

== ENCOUNTER 2024-06-04 09:43 | Inpatient (IN) | payer MEDICARE, MEDICAID, SELFPAY ==
[2024-06-04] VITALS (14 sets, daily range): BP systolic 95–213; BP diastolic 48–138; PULSE 74–92; RESP 11–20; TEMP 36.1–37.2; O2SAT 96–99; BMI 21.7; BMI 22.1
--- NOTE | ~2024-06-04 | CT_ITS ---
CLINICAL HISTORY: Nausea, and vomitting CT abdomen and pelvis without contrast Comparison: CT/SR - CT ABDOMEN PELVIS WO IV CON - 05/11/24 16:48 EDT US/AZ/SR - US ABDOMEN LIMITED - 05/11/24 14:29 EDT Findings: Examination is limited by without contrast. Lung bases are clear. Small pericardial effusion. Liver, Pancreas, Spleen and both adrenals show normal size, shape and attenuation on present unenhanced scan. No CBD dilatation. No calcified gallstone in the gallbladder. There is wall thickening of the gallbladder. Small pericholecystic fluid. The bilateral kidneys are small in size. Limited evaluation of the cystic lesions of the bilateral kidney. Small kidney stones bilaterally. No hydronephrosis. The IVC, aorta and portal vein are within normal position and caliber. No evidence of retroperitoneal lymphadenopathy. Small pelvic free fluid. Calcifications of the pelvis are likely to be phleboliths. The visible parts of the bowel loops show no obvious mass lesions or wall thickening. Gastric bypass. Appendix appears normal. Urinary bladder reveals normal lumen and mcghee. Hysterectomy. Visualized osseous structures appear unremarkable. No lytic or sclerotic bony lesion. IMPRESSION: Small nonobstructing bilateral renal calculi. Wall thickening of the gallbladder and small pericholecystic fluid. No calcified gallstones in the gallbladder. Correlation with ultrasound findings as indicated. Additional findings as above. This document has been electronically signed by: Maria Isabel Yang MD on 06/06/2024 16:00:45
--- NOTE | ~2024-06-04 | XR_ITS ---
EXAMINATION: XR CHEST 1 VIEW HISTORY: pain COMPARISON: Comparison is made with the prior examination dated 05/18/2024. FINDINGS: Two AP portable views of the chest performed at 10:31 AM are submitted. There is minimal subsegmental atelectasis in the right midlung zone. The left lung is clear. There is no pleural effusion, pneumothorax, or pulmonary vascular congestion. The heart is normal in size. The bones are intact. XR/XR chest 1V IMPRESSION: Minimal subsegmental atelectasis in the right midlung zone. Electronically signed by: Brandan Wei MD 06/04/2024 10:59 AM EDT
--- NOTE | ~2024-06-04 | US_ITS ---
EXAMINATION: US ABDOMEN LIMITED CLINICAL INFORMATION: Evaluate gallbladder,? Gallbladder wall thickening seen on CT exam. COMPARISON: CT abdomen and pelvis 06/06/2024. TECHNIQUE: Real-time imaging of the gallbladder and bile ducts. FINDINGS: GALLBLADDER: The gallbladder is physiologically distended without evidence of stones, sludge, or polyps. There is minimal wall thickening up to 3 mm. No significant pericholecystic fluid. Negative sonographic Reis's sign. COMMON BILE DUCT: Normal in caliber measuring 0.5 cm in diameter. FREE FLUID: None. US/US abdomen limited IMPRESSION: 1. Mild wall thickening of the gallbladder up to 3 mm, nonspecific. No calculi, sludge, pericholecystic fluid, or internal echoes. Negative sonographic Reis's sign. 2. No biliary dilatation. Electronically signed by: Vinh Yepez MD 06/07/2024 09:50 AM EDT
--- NOTE | 2024-06-04 09:49 | ECG_ITS ---
Test Reason : CHEST PAIN Blood Pressure : */* mmHG Vent. Rate : 77 BPM Atrial Rate : 77 BPM P-R Int : 116 ms QRS Dur : 84 ms QT Int : 416 ms P-R-T Axes : 29 39 56 degrees QTcB Int : 470 ms Normal sinus rhythm Normal ECG When compared with ECG of 18-May-2024 19:20, QT has shortened Referred By: Franny Mora Electronically Signed By: MINO ROWE
--- NOTE | 2024-06-04 10:00 | ED_ITS ---
HPI - Nausea/Vomiting/Diarrhea General Chief complaint: Nausea/Vomiting/Diarrhea Stated complaint: CP,VOMITING BLOOD,DIALYSIS PATIENT PER EMS Source: patient, EMS and old records reviewed Mode of arrival: EMS Limitations: no limitations History of Present Illness ED Provider: KIMBERLY BULLOCK Narrative: 53 yo female with PMH of ESR on HD MWF last went Friday, GERD, HTN, HLD, chronic back pain and recurrent GI bleed from g-j pouch who follows with Dr. Moody she is s/p EGD on 05/20 after admission here for n/v upper abdominal pain and recurrent UGIB s/p 2 units PRBC for anemia 6.8, IV protonix/carafate. Her EGD on 05/20 showed gastritis and congestion but no active bleeding at anastomotic ulcers. She also had reassuring Mesenteric US. She tells me today she started with chest and upper abdominal pain with vomiting at 6am. She then started to notice brown / coffee grounds about 1 hour after she started vomiting. She did not make it to HD today. No aspirin, thinner, NSAID use. She was given zofran by EMS LENS BLOCKER with little relief. MD elicited complaint: nausea, vomiting and abdominal pain Pertinent past history: other Onset (ago): hour(s) (6am today) Description of vomiting: coffee grounds Associated nausea: Yes Associated abdominal pain: Yes Location of pain: chest and epigastric Radiation: diffuse Pain consistency: constant Severity: severe Quality: aching Exacerbating factors: eating and movement Relieving factors: none Context: recent surgery/procedure and other Associated symptoms: chest pain, loss of appetite, malaise, nausea/vomiting and weakness Treatment prior to arrival: other Related Data Home Medications ?Medication ?Instructions ?Recorded ?Confirmed ferrous sulfate 325 mg (65 mg 325 mg PO BID PRN Iron Levels 05/11/20 05/19/24 iron) tablet,delayed release cyanocobalamin (vitamin B-12) 1,000 mcg PO DAILY 10/17/20 05/19/24 1,000 mcg tablet midodrine 5 mg tablet 5 mg PO TID 03/25/23 05/19/24 acetaminophen 500 mg capsule 1,000 mg PO Q8H PRN Pain 08/10/23 05/19/24 (Mapap (acetaminophen)) fluticasone propionate 50 1 spray intranasal DAILY PRN 08/10/23 05/19/24 mcg/actuation nasal Allergy Symptoms spray,suspension [id number] 45 mg-folic 1 cap PO DAILY 08/10/23 05/19/24 acid 800 mcg-vit K 120 mcg capsule (Bariatric Multivitamins) parenteral amino acid 15% no.5 15 0.5 ea IV MOWEFR@0900 08/10/23 04/25/24 % combination no.5 intravenous solution (Clinisol SF) sucralfate 1 gram tablet 1 g PO BID 08/10/23 05/19/24 zinc acetate 50 mg (zinc) capsule 50 mg PO DAILY 05/19/24 05/19/24 Previous Rx's ?Medication ?Instructions ?Recorded melatonin 10 mg capsule 10 mg PO BEDTIME PRN sleep 90 days 06/26/23 #90 caps thiamine HCl (vitamin B1) 100 mg 100 mg PO DAILY 90 days #90 tabs 09/27/23 tablet vitamin A 2,400 mcg capsule 2,400 mcg PO DAILY 90 days #90 caps 02/05/24 citalopram 20 mg tablet 20 mg PO DAILY 90 days #90 tabs 03/18/24 carvedilol 6.25 mg tablet 6.25 mg PO BID 90 days #180 tabs 04/28/24 ergocalciferol (vitamin D2) 1,250 1,250 mcg PO QWEEK 30 days #5 caps 04/28/24 mcg (50,000 unit) capsule (Vitamin D2) gabapentin 400 mg capsule 400 mg PO BID 90 days #180 caps 04/28/24 pyridoxine (vitamin B6) 50 mg 50 mg PO DAILY 90 days #90 tabs 04/28/24 tablet sevelamer carbonate 800 mg tablet 1,600 mg (2 x 800 mg) PO TIDWM 30 04/28/24 days #180 tabs ondansetron 4 mg disintegrating 4 mg PO Q8H PRN nausea and 05/11/24 tablet vomiting #10 tabs omeprazole 40 mg capsule,delayed 40 mg PO BID #180 caps 05/21/24 release ondansetron 4 mg disintegrating 4 mg PO Q8H PRN nausea and 05/21/24 tablet vomiting #20 tabs oxycodone 5 mg tablet 5 mg PO Q6H PRN pain (scale score 05/21/24 7-10) #14 tabs Allergies Allergy/AdvReac Type Severity Reaction Status Date / Time ibuprofen Allergy Severe Unknown Verified 06/04/24 09:58 nifedipine Allergy Intermediate hives, leg Verified 06/04/24 09:58 edema Review of Systems 2 Review of Systems: Constitutional : No Weight loss, No Fever, No Chills ENT/Mouth : No sore throat, No Rhinorrhea Eyes: No Swelling, No Redness Cardiovascular : pos Chest Pain, No SOB, NoEdema Respiratory : No Cough, No Sputum, No Wheezing Gastrointestinal : Positive Nausea, Positive Vomiting, no Diarrhea, positive abdominal Pain, No Hematochezia, No Melena Genitourinary : No Dysuria, No Urinary Frequency, No Hematuria, No Urgency Musculoskeletal : No joint pain, No Myalgias, No Joint Swelling Skin : No Skin Lesions, No rash Neuro : No Weakness, No Numbness, No Dizziness, No Headache All other systems reviewed and are negative. Gastrointestinal: Gastrointestinal: Reports nausea PMFSH Past Medical History Attestation statement: The following information was validated with the patient. 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 Lumbar back pain with radiculopathy affecting left lower extremity Physical exam (~02/14/21) Peritoneal dialysis catheter in place Polyarthralgia Dyslipidemia Family history of ovarian cancer Abnormal mammogram of right breast Angina pectoris syndrome Chest pain Constipation Nephrosclerosis Renal interstitial fibrosis Obesity (BMI 30-39.9) Back pain GERD (gastroesophageal reflux disease) History of headache HTN (hypertension) Surgical History S/P arteriovenous (AV) graft placement History of sleeve gastrectomy Fistula Hx of colonoscopy Hx of hysterectomy Hx of tubal ligation History of endometrial ablation Family History Family History Father Asthma Mother Asthma Hypertension Ovarian cancer Maternal Grandfather Myocardial infarction Paternal Grandmother Stroke Social History Social History Household Members: Children Household Members Other:: 30 year old special needs son Housing: Apartment Are you a primary nursing care attendant to a significant other at home: No Do you presently have visiting nurse or other home services: No Alcohol intake: current Alcohol intake frequency: holidays/special occasions only Alcohol type: beer Comment: Patient doesn't want bed alarm on Patient Tobacco Use Status: Former Tobacco user Tobacco use type: Cigarette Cigarette Packs Per Day: 1 Cigarettes Per Day: 20.0 Years Smoked: 10+ Smoked in Last 30 Days: Yes e-Cigarette/Vaping Use: Currently Using Second Hand Smoke Exposure: No Use of substances other than those prescribed or required for medical reasons: No Substance Use Type: Caffiene Advance Directives: Yes Advance Directives on File: Yes Advance Directives Date on File: 04/27/20 Do you have a plan to hurt others: No Plan Patient : No service: No Current occupational status: employed Cognitive needs: No Hearing needs: No Vision needs: Yes (reading glasses) Physical Exam 2 Vital Signs: Vital Signs: Last Vital Signs Temp 98.0 F 06/04/24 10:15 Pulse 92 06/04/24 11:52 Resp 12 06/04/24 11:52 BP 186/104 H 06/04/24 11:52 Pulse Ox 98 06/04/24 11:52 O2 Del Method Room Air 06/04/24 11:52 BMI result Body Mass Index 21.7 Appearance: Alert. Oriented X3. active emesis brown mild acute distress. Eyes: Pupils equal, round and reactive to light. ENT: Pharynx normal. Neck: Normal inspection. Neck supple. CVS: Normal heart rate and rhythm. Pulses normal. Respiratory: No respiratory distress. Breath sounds normal. Abdomen: Soft and mild epigastric ttp no rebound or guarding Skin: Skin warm and dry. pale skin color. Normal skin turgor. Extremities: No lower extremity edema. No calf ttp Neuro: Oriented X 3. No motor deficit. No sensory deficit. CN2-12 intact Course Course Course Narrative: IV hydralazine for elevated HTN GBS score is 3 Reevaluation(s) Reevaluation #1: BP is coming down oral carvedilol also ordered Medications Administered Discontinued Medications Generic Name Dose Route Start Last Admin Trade Name Freq PRN Reason Stop Dose Admin Hydralazine HCl 10 mg 06/04/24 11:19 06/04/24 11:34 Hydralazine Hcl 20 Mg/Ml Vial IVPUSH 06/04/24 11:20 10 mg ONCE ONE Administration Protocol Morphine Sulfate 4 mg 06/04/24 09:53 06/04/24 10:13 Morphine Sulfate 4 Mg/Ml Cartridge IVPUSH 06/04/24 09:54 4 mg ONCE ONE Administration Protocol Pantoprazole Sodium 40 mg 06/04/24 09:48 06/04/24 10:13 Pantoprazole Sodium 40 Mg/10 Ml Vial IVPUSH 06/04/24 09:49 40 mg ONCE ONE Administration Prochlorperazine Edisylate 5 mg 06/04/24 09:54 06/04/24 10:13 Prochlorperazine Edisylate 10 Mg/2 Ml Vial IVPUSH 06/04/24 09:55 5 mg ONCE ONE Administration Medical Decision Making Medical Decision Making [facility] Narrative: 53 yo female with PMH of ESR on HD MWF last went Friday, GERD, HTN, HLD, chronic back pain and recurrent GI bleed from g-j pouch now here with with n/v/d and coffee grounds at this time I am going to obtain labs, gastric occult, IV compazine and morphine for pain. CXR, troponin x 2, start on IV protonix. Suspect recurrent UGIB/gastritis/ulcer. Differential Diagnosis Differential Diagnoses: The differential diagnosis associated with the presentation includes UGIB, gastritis, chest pain Admission/Observation Consideration of admission/observation: Escalation of care including admission/observation considered will admit for further work up for UGIB Consult Healthcare Provider Management of the patient was discussed with: Hospitalist (will admit) and Cutter Grinder Lab Data [facility] Lab Attestation statement: I reviewed the patient's lab results. 06/04/24 10:11 06/04/24 10:11 Labs: Lab Results 06/04/24 Range/Units 10:11 WBC 7.9 (4.8-10.8) X10*3/uL RBC 4.07 L D (4.20-5.50) X10*6/uL Hgb 12.5 D (12.0-16.0) g/dl Hct 38.2 D (37.0-47.0) % MCV 93.9 (80.0-98.0) fL MCH 30.7 (27.0-33.0) pg MCHC 32.7 (31.0-35.0) g/dl RDW 13.7 (11.0-16.0) % Plt Count 244 (160-400) X10*3/uL MPV 9.7 (9.4-12.3) fL Immature Gran % (Auto) 0.4 (0.0-0.4) % Neut % (Auto) 83.4 H (45-73) % Lymph % (Auto) 10.1 L (20-40) % [place] % (Auto) 4.2 (2-11) % Eos % (Auto) 1.3 (0-4) % Baso % (Auto) 0.6 (0-2) % Lymph # (Auto) 0.8 L (1.2-4.9) X10*3/uL [place] # (Auto) 0.3 (0.1-1.2) X10*3/uL Eos # (Auto) 0.1 (0.0-0.4) X10*3/uL Baso # (Auto) 0.1 (0.0-0.2) X10*3/uL Abs Immat Gran (auto) 0.03 (0.00-0.03) X10*3/uL Absolute Neuts (auto) 6.6 (2.0-8.3) x10*3/uL Absolute Nucleated RBC 0.000 (0.0-0.012) X10*3/uL Nucleated RBC % (auto) 0.0 (0.0-0.2) /100WBC PT 11.4 (10.9-12.4) SEC INR 1.0 (0.9-1.1) Sodium 138 (135-145) mmol/L Potassium 4.5 (3.3-5.1) mmol/L Chloride 102 (96-108) mmol/L Carbon Dioxide 25 (22-29) mmol/L Anion Gap 16 (12-20) BUN 22 H (9-16) mg/dL Creatinine 4.62 H* (0.5-1.4) mg/dL Estim Creat Clear Calc 12.8 Estimated GFR 10 Random Glucose 127 H (60-115) mg/dL Calcium 9.7 D (8.4-10.2) mg/dL Magnesium 2.0 (1.6-2.6) mg/dL Total Bilirubin 0.5 (0.0-1.0) mg/dL Direct Bilirubin 0.1 (0.0-0.5) mg/dL AST 19 (5-31) U/L ALT 12 (0-31) U/L Alkaline Phosphatase 201 H (39-117) U/L Troponin I High Sens 4.3 (<3.5-17.0) ng/L Total Protein 7.0 (6.5-8.0) g/dL Albumin 3.9 (3.5-5.0) g/dL Lipase 31 (8-78) U/L Gastric Occult Blood POSITIVE H (NEG) Blood Type O Positive Antibody Screen NEGATIVE Independent Interpretation I performed an independent interpretation of an: EKG and Plain X-Ray Interpretation: Rate: 77 Rhythm: NSR [place]: normal Normal P waves. Normal [place]AC[place]. Normal QRS complex. ST T wave : inverted t wave V1, no MARY qTC: 470 prior studies: no acute ischemia The study has been interpreted contemporaneously by me. . Radiology Impression Discussion of test interpretation with radiology: I have reviewed the radiologist's reading. Independent Historian Clinical information obtained from an independent historian. History obtained from or confirmed by: EMS External Record Review External record reviewed: Inpatient record, Outpatient record and Prior outpatient radiology Discharge Plan Discharge Clinical Impression: Esophagitis, UGIB (upper gastrointestinal bleed) Patient Disposition: Admitted As Inpatient Print Language: Yoruba
[2024-06-04] MEDS: Prochlorperazine Edisylate 10 MG/2 ML VIAL 5 MG IVPUSH (10:13)
[2024-06-04] MEDS: Pantoprazole Sodium 40 MG/10 ML VIAL IVPUSH ×2 (10:13→15:48)
[2024-06-04] MEDS: Morphine Sulfate 4 MG/ML CARTRIDGE IVPUSH (10:13)
[2024-06-04 10:21] LABS: MANUAL DIFF FLAG NO
--- NOTE | 2024-06-04 10:21 | PC.NURSE ---
patient a&ox3, iv previously inserted by ems, labs drawn, emesis sample sent to lab, rr equal/non labored, pt c/o 10/20 pain- chest/abd, pt has dialysis m,w,f and missed dialysis this morning due to not feeling well. lt av fistula + bruit/thrill. ekg performed, panel monitor applied- nsr on monitor, pt notably hypertensive, call simon within reach, plan of care ongoing
[2024-06-04 10:22] LABS: Basophils Absolute Auto 0.1 X10*3/uL (0.0-0.2); Basophils Percent Auto 0.6 % (0-2); Eosinophils Absolute Auto 0.1 X10*3/uL (0.0-0.4); Eosinophils Percent Auto 1.3 % (0-4); Hematocrit 38.2 % (37.0-47.0); Hemoglobin 12.5 g/dl (12.0-16.0); Imm Gran Abs Auto 0.03 X10*3/uL (0.00-0.03); Imm Gran Pct Auto 0.4 % (0.0-0.4); Lymphocytes Absolute Auto 0.8 X10*3/uL (1.2-4.9); Lymphocytes Percent Auto 10.1 % (20-40); Mean Corpuscular HGB Conc 32.7 g/dl (31.0-35.0); Mean Corpuscular Hemoglobin 30.7 pg (27.0-33.0); Mean Corpuscular Volume 93.9 fL (80.0-98.0); Mean Platelet Volume 9.7 fL (9.4-12.3); Monocytes Absolute Auto 0.3 X10*3/uL (0.1-1.2); Monocytes Percent Auto 4.2 % (2-11); Neutrophils Absolute Auto 6.6 x10*3/uL (2.0-8.3); Neutrophils Percent Auto 83.4 % (45-73); Platelet Count 244 X10*3/uL (160-400); Red Blood Count 4.07 X10*6/uL (4.20-5.50); Red Cell Distribution Width 13.7 % (11.0-16.0); White Blood Count 7.9 X10*3/uL (4.8-10.8)
[2024-06-04 10:29] LABS: Prothrombin Time 11.4 SEC (10.9-12.4)
[2024-06-04 10:42] LABS: GASOB Int Neg Ctl Valid YES; GASOB Int Pos Ctl Valid YES
[2024-06-04 10:43] LABS: GASOB Lot 20632; Occult Blood Gastric POSITIVE (NEG)
[2024-06-04 10:50] LABS: Alanine Aminotransferase 12 U/L (0-31); Albumin Level 3.9 g/dL (3.5-5.0); Alkaline Phosphatase 201 U/L (39-117); Anion Gap 16 (12-20); Aspartate Amino Transferase 19 U/L (5-31); Bilirubin Direct 0.1 mg/dL (0.0-0.5); Bilirubin Total 0.5 mg/dL (0.0-1.0); Blood Urea Nitrogen 22 mg/dL (9-16); Calcium 9.7 mg/dL (8.4-10.2); Carbon Dioxide 25 mmol/L (22-29); Chloride 102 mmol/L (96-108); Creatinine Clr Calc Pharmacy 12.8; Estimated Glomerular Filt Rate 10; Glucose Random 127 mg/dL (60-115); Lipase 31 U/L (8-78); Potassium 4.5 mmol/L (3.3-5.1); Sodium 138 mmol/L (135-145)
[2024-06-04 10:51] LABS: Troponin-I High Sensitivity 4.3 ng/L (<3.5-17.0)
--- OUTSIDE RECORDS SUMMARY | 2024-06-04 10:54 | XMS_ITS | Clinical Summary ---
Author Organization [address] [facility] Address [address] [place] [address] Phone Care Team Providers Care Legal Administrative Assistant Name Role Phone Sam Lynch MD Primary [...] 32.9 in adult 11/26/2023 Acute kidney failure ([facility] V24) 04/26/2021 Benign essential hypertension 04/26/2021 Dependence on renal dialysis (CMS/[facility] V24) 04/26 Disorder of kidney and ureter, unspecified 04/26 ESRD on hemodialysis (CMS/HCC V24, CMS/[facility] V28) 04/26/2021 Hypertensive heart and chron ic kidney disease with heart failure and stage 1 through stage 4 chronic kidney disease, or unspecified chronic kidney disease (CMS/HCC V24, CMS/HCC V28) 04/26/2021 Vitamin D deficiency 04/26/2021 Surgical History Surgery Date Site/Laterality Comments OTHER SURGICAL HISTORY PROCEDURE: DIALYSIS ACCESS SYSTEM LAPAROSCOPIC GASTRIC BANDING PROCEDURE: LAP ADJUSTABLE GASTRIC BAND HYSTERECTOMY PROCEDURE: HISTORICAL HYSTERECTOMY OTHER SURGICAL HISTORY PROCEDURE: COLONOSCOPY LESION REMOVAL OTHER SURGICAL HISTORY 06/13/2021 Left PROCEDURE: NV CRTJ ARVJASPER FSTL XCNeftali BARTH NONAUTOG GRF; COMMENT: Left axillary loop [...] 11/26/2023 2:59 PM EDT Plan of Treatment Upcoming Encounters Date Type Department Care Team (Late st Contact Info) Description 09/01/2024 3:15 PM EDT Office Visit Bariatric Surgery - [place] [address] [facility] [address] [place] [id number] Grace Abarca PA [address] [facility] [address] [place] [address] Health Maintenance Due Date Last Done Comments [...] to complete this topic Insurance MEDICA[place] - [place] MEDICARE Advance Directives Documents on File Type Date Recorded 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
--- OUTSIDE RECORDS SUMMARY | 2024-06-04 10:54 | XMS_ITS | Encounter Summary ---
Author Organization [facility] Address [address] [facility] [address] [place] [address] Phone Care Team Providers Care Manager Home Name Role Phone Rozina Nicole MD Primary Care Provider [phone] Encounter Details Date Type Department Care Team ([facility] st Contact Info) Description 05/15/2020 Orders Only [facility] [address] [place] [phone] Jon Wang MD [address] [facility] [address] [place] [phone] Stage 5 chronic kidney disease (HCC) Social [...] (HCC) documented in this encounter Care Teams Manager Home Relationship Specialty Start Date End Date Rozina Nicole MD [address] [place] [address] [address] [place] PCP - General 02/21/20 documented as of this encounter
--- OUTSIDE RECORDS SUMMARY | 2024-06-04 10:54 | XMS_ITS | Encounter Summary ---
Author Organization [facility] Address [address] [facility] [address] [place] [address] Phone Care Team Providers Care Agricultural Extension Specialist Name Role Phone Rozina Nicole MD Primary Care Provider [phone] Encounter Details Date Type Department Care Team (Late st Contact Info) Description 05/22/2020 Orders Only [facility] [address] [place] [address] Jon Wang MD [address] [facility] [address] [place] [phone] Stage 5 chronic kidney disease (HCC) Social [...] (HCC) documented in this encounter Care Teams Agricultural Extension Specialist Relationship Specialty Start Date End Date Rozina Nicole MD [address] [place] [address] [address] [place] PCP - General 02/21/20 documented as of this encounter
--- OUTSIDE RECORDS SUMMARY | 2024-06-04 10:54 | XMS_ITS | Encounter Summary ---
Author Organization [facility] Address [address] [place] [address] Phone Care Team Providers Care Corporate Specialist Name Role Phone Rozina Nicole MD Primary Care Provider [phone] Encounter Details Date Type Department Care Team (Late st Contact Info) Description 05/08/2020 Orders Only [facility] [address] [place] [address] Provider, MD Wendy [address] [place], [place] [id number] Social History Tobacco Use Types Packs/Day Years [...] on filedocumented in this encounter Care Teams Corporate Specialist Relationship Specialty Start Date End Date Rozina Nicole MD [address] [place], [place] PCP - General 02/21/20 documented as of this encounter
--- OUTSIDE RECORDS SUMMARY | 2024-06-04 10:55 | XMS_ITS | Clinical Summary ---
Author Organization [facility] Address [address] [place] [address] [place] [address] Phone Care Team Providers Care Tube Knitter Name Role Phone Rozina Nicole MD Primary Care Provider [phone] Allergies Active Allergy Reactions Criticality Noted Date [...] ureter 05/02/2020 05/02/2020 [facility]/02[facility]2020 09/07/2020 Encounters Date Type Department Care Team Description 05/24/2024 Treatment [facility] [address] [address] Jon Wang MD End stage renal disease; Dependence on renal dialysis 05/14/2024 Treatment [facility] [address] [phone] Jon Wang MD End stage renal disease; Dependence on renal dialysis 05/08/2024 Treatment [facility] [address] [phone] Jon Wang MD End stage renal disease; Dependence on renal dialysis 05/05/2024 Treatment [facility] [address] [phone] Jon Wang MD End stage renal disease; Dependence on renal dialysis 05/04/2024 Treatment [facility] [address] [phone] Kwesi Gonzalez MD End stage renal disease; Dependence on renal dialysis 04/14/2024 Treatment [facility] [address] [phone] Jon Wang MD End stage renal disease; Dependence on renal dialysis 04/09/2024 Treatment [facility] [address] [phone] Jon Wang MD End stage renal disease; Dependence on renal dialysis 04/02/2024 Treatment [facility] [address] [phone] Jon Wang MD 03/31/2024 Treatment [facility] [address] [phone] Jon Wang MD 03/22/2024 Orders Only [facility] [address] [phone] Jon Wang MD 03/22/2024 Treatment [facility] [address] [address] Jon Wang MD from Last 3 Months [...] Comments Breast Cancer Screening 1971 Pneumococcal Vaccine: 50+ Years (1 of 2 - PCV) 991 Hepatitis B Vaccine (1 of 5 - Risk Dialysis 4-dose series) 1991 Colorectal Cancer Screening: Annual FOBT 07/26/2020 Colorectal Cancer Screening: Colonoscopy 07/26/2020 Colorectal Cancer Screening: Sigmoidoscopy 07/26/2020 Influenza Vaccine (Season Ended) 2024 Procedures Procedure Name Priority Date/Time Associated Diagnosis Comments KT/V NATURAL LOG, URR (HC) Routine 06/02/2024 3:00 AM EDT PHOSPHATE ( PHOSPHORUS) Routine 06/02/2024 3:00 AM EDT LIH (HC) Routine 06/02/2024 3:00 AM EDT HEMOGLOBIN AND HEMATOCRIT, BLOOD Routine 05/31/2024 3:00 AM EDT LIH () Routine 05/31/2024 3:00 AM EDT CALCIUM, ADJUSTED W ALBUMIN Routine 05/31/2024 3:00 AM EDT KT/V NATURAL LOG, URR () Routine 05/31/2024 3:00 AM EDT LIH () Routine 05/24/2024 3:00 AM EDT KT/V NATURAL LOG, URR () Routine 05/24/2024 3:00 AM EDT LIH () Routine 05/17/2024 3:00 AM EDT COLLECTION DATE () Routine 05/17/2024 3:00 AM EDT KT/V NATURAL LOG, URR () Routine 05/17/2024 3:00 AM EDT HEMOGLOBIN A1C Routine 05/14/2024 3:00 AM EDT [...] EST HEMOGLOBIN Routine 03/08/2024 3:00 AM EST from Last 3 Months Results * LIH (06/02/2024 3:00 AM EDT) Only the most recent of17 resultswithin the time period is included. Lipemia Normal Normal [facility] Icterus Normal Normal [facility] Hemolysis Normal Normal [facility] 06/02/2024 3:00 AM EDT 06/03/2024 12:30 PM EDT us Jon Wang MD LAB [id number] SOLICITED RESULTS Final Result [facility]PS [facility] [address] [place] [address] * (ABNORMAL) Kt/V Natural Log, URR (06/02/2024 3:00 AM EDT) Only the most recent of16 resultswithin the time period is included. BUN 28(H) 7 - 25 mg/dL [facility] Treatment Time 154 min [facility] Pre-Weight, lb 61.3 kg [facility] Post-Weight, lb 60.9 kg [facility] Ultrafiltration Rate 3 <=13 mL/kg/hr [facility] Comment: Recommend achieving Ultrafiltration Rate (UFR) <=10 mL/kg/hr References: Terrell GARCIA et al. Kidney Int. 2010; 79(2):250-257 BUN Post Dialysis 11 7 - 25 mg/dL [facility] UREA REDUCTION RATIO (%) 61(L) >=65 % [facility] Kt/V Natural Log 1.01(L) >=1.2 [facility] 06/02/2024 3:00 AM EDT 06/03/2024 12:30 PM EDT us Jon Wang MD LAB [id number] SOLICITED RESULTS Final Result Performing Organization Address [facility] de Phone Number [facility]PS [facility] [address] [place] [address] * Phosphorus (06/02/2024 3:00 AM EDT) Only the most recent of3 resultswithin the time period is included. Phosphorus, Serum 4.4 2.5 - 5.0 mg/dL [facility] 06/02/2024 3:00 AM EDT 06/03/2024 12:30 PM EDT us Jon Wang MD LAB BLOOD ORDERABLES Final Re sult Performing Organization Address [facility] Co de Phone Number [facility]PS [facility] [address] [place] [address] * Calcium, Adjusted w Albumin (05/31/2024 3:00 AM EDT) Only the most recent of2 resultswithin the time period is included. Calcium 9.1 8.6 - 10.3 mg/dL [facility] Albumin 3.9 3.6 - 5.4 g/dL [facility] Calcium, Adjusted Total 9.2 8.6 - 10.3 mg/dL [facility] 05/31/2024 3:00 AM EDT 06/01/2024 2:09 PM EDT Jon Wang MD LAB BLOOD ORDERABLES Final Re sult Performing Organization Address [facility] de Phone Number [facility]PS [facility] [address] [place] [address] * (ABNORMAL) Hemoglobin and hematocrit (05/31/2024 3:00 AM EDT) Only the most recent of3 resultswithin the time period is included. Hgb 10.4(L) 11.2 - 15.7 g/dL [facility] Hematocrit 32.4(L) 34.1 - 44.9 % [facility] Hemoglobin x 3 31.2(L) 33.6 - 47.1 g/dL [facility] 05/31/2024 3:00 AM EDT 06/01/2024 2:15 PM EDT Jon Wagn MD LAB BLOOD ORDERABLES Final Re sult Performing Organization Address [facility] de Phone Number [facility]PS [facility] [address] [place] [address] * Collection Date (05/17/2024 3:00 AM EDT) Collection Date See Comment [facility] Comment: Patient sample received may exceed specimen stability, based on the collection date electronically provided. ??When reviewing patient results, verify collection information and consider specimen stability before acting on any critical or panic results. 05/17/2024 3:00 AM EDT Jon Wang MD LAB [id number] SOLICITED RESULTS Final Result Performing Organization Address [facility] de Phone Number [facility]PS [facility] [address] [place] [address] * (ABNORMAL) Calcium Phosphorus Product, Adjusted (05/14/2024 [...] 1:41 PM EDT Jon Wang MD LAB [id number] SOLICITED RESULTS Final Result Performing Organization Address [facility] de Phone Number [facility]PS [facility] [address] [place] [address] * Hepatitis B Surface Ag w/Reflex Confirmation (05/14/2024 3:00 AM EDT) Only the most recent of3 resultswithin the time period is included. Hep B Surface Antigen Negative Negative [facility] 05/14/2024 3:00 AM EDT 05/15/2024 1:41 PM EDT us Jon Wang MD LAB BLOOD ORDERABLES Final Re sult Performing Organization Address [facility] de Phone Number [facility]PS [facility] [address] [place] [address] * (ABNORMAL) TSAT (05/14/2024 3:00 AM EDT) Only the most recent of3 resultswithin the time period is included. Iron 68 50 - 170 ug/dL [facility] Transferrin 140(L) 250 - 380 mg/dL [facility] TIBC 196(L) 211 - 406 ug/dL [facility] Iron Saturation (TSat) 35 22 - 52 % [facility] 05/14/2024 3:00 AM EDT 05/15/2024 1:41 PM EDT us Jon Wang MD LAB BLOOD ORDERABLES Final Re sult [facility] [address] [place] [address] * (ABNORMAL) CBC and Differential (05/14/2024 3:00 AM EDT) Only the most recent of3 resultswithin the time period is included. DIFFERENTIAL MANUAL, 2 Not Indicated [facility] White [...] 3:00 AM EDT 05/15/2024 1:53 PM EDT us Jon Wang MD LAB BLOOD ORDERABLES Final Re sult [facility] [address] [place] [address] * (ABNORMAL) ALT (05/14/2024 3:00 AM EDT) Only the most recent of3 resultswithin the time period is included. ALT (SGPT) 8(L) 10 - 49 U/L [facility] 05/14/2024 3:00 AM EDT 05/15/2024 1:41 PM EDT us Jon Wang MD LAB BLOOD ORDERABLES Final Re sult Performing Organization Address [facility] Co de Phone Number [facility]PS [facility] [address] [place] [address] * AST (05/14/2024 3:00 AM EDT) Only the most recent of3 resultswithin the time period is included. AST (SGOT) 12 <34 U/L [facility] 05/14/2024 3:00 AM EDT 05/15/2024 1:41 PM EDT us Jon Wang MD LAB BLOOD ORDERABLES Final Re sult Performing Organization Address [facility] de Phone Number [facility] [address] [place] [address] * (ABNORMAL) Protein, total (05/14/2024 3:00 AM EDT) Only the most recent of3 resultswithin the time period is included. Total Protein 5.9(L) 6.4 - 8.9 g/dL [facility] 05/14/2024 3:00 AM EDT 05/15/2024 1:41 PM EDT us Jon Wang MD LAB BLOOD ORDERABLES Final Re sult Performing Organization Address [facility] de Phone Number [facility]PS [facility] [address] [place] [address] * (ABNORMAL) Alkaline phosphatase (05/14/2024 3:00 AM EDT) Only the most recent of3 resultswithin the time period is included. Alkaline Phosphatase 129(H) 46 - 116 U/L [facility] 05/14/2024 3:00 AM EDT 05/15/2024 1:41 PM EDT us Jon Wang MD LAB BLOOD ORDERABLES Final Re sult Performing Organization Address [facility] de Phone Number [facility] [address] [place] [address] * (ABNORMAL) PTH, Intact (05/14/2024 3:00 AM EDT) Only the most recent of3 resultswithin the time period is included. PTH, Intact 1,036(H) 160 - 721 pg/mL [facility] Comment: Suggested (KDIGO) ESRD maintenance range is two to nine times the upper normal limit (80.1 pg/mL) for the laboratory. 05/14/2024 3:00 AM EDT 05/15/2024 1:41 PM EDT Jon Wang MD LAB BLOOD ORDERABLES Final Re sult Performing Organization Address [facility] de Phone Number [facility] [address] [place] [address] * Magnesium (05/14/2024 3:00 AM EDT) Only the most recent of3 resultswithin the time period is included. Magnesium 2.2 1.9 - 2.7 mg/dL [facility] 05/14/2024 3:00 AM EDT 05/15/2024 1:41 PM EDT Jon Wang MD LAB BLOOD ORDERABLES Final Re sult Performing Organization Address [facility] de Phone Number [facility] [address] [place] [address] * Lactate dehydrogenase (05/14/2024 3:00 AM EDT) Only the most recent of3 resultswithin the time period is included. LDH 150 120 - 246 U/L [facility] 05/14/2024 3:00 AM EDT 05/15/2024 1:41 PM EDT Jon Wang MD LAB BLOOD ORDERABLES Final Re sult Performing Organization Address [facility] de Phone Number [facility] [address] [place] [address] * Hemoglobin A1c (05/14/2024 3:00 AM EDT) Hemoglobin A1C 5.0 <5.7 % [facility] Comment: Methodology: Ion-exchange high-performance liquid chromatography (HPLC) HbA1c (NGSP %) ?Suggested Diagnosis >6.4% ? Diabetic 5.7-6.4% ?Pre-Diabetic <5.7% ? Non-Diabetic Diabetic Glucose Control Evaluation: Therapeutic action suggested at >8.0% ADA recommends a glycemic goal of <7.0% 05/14/2024 3:00 AM EDT 05/15/2024 1:53 PM EDT Jon Wang MD LAB BLOOD ORDERABLES Final Re sult Performing Organization Address [facility] de Phone Number [facility] [address] [place] [address] * Glucose, random (05/14/2024 3:00 AM EDT) Only the most recent of3 resultswithin the time period is included. Glucose 98 74 - 109 mg/dL [facility] 05/14/2024 3:00 AM EDT 05/15/2024 1:41 PM EDT Jon Wang MD LAB BLOOD ORDERABLES Final Re sult Performing Organization Address [facility] de Phone Number [facility] [address] [place] [address] * (ABNORMAL) Ferritin (05/14/2024 3:00 AM EDT) Only the most recent of3 resultswithin the time period is included. Ferritin 657(H) 10 - 291 ng/mL [facility] 05/14/2024 3:00 AM EDT 05/15/2024 1:41 PM EDT Jon Wang MD LAB BLOOD ORDERABLES Final Re sult Performing Organization Address [facility] de Phone Number [facility] [address] [place] [address] * (ABNORMAL) Creatinine, serum (05/14/2024 3:00 AM EDT) Only the most recent of3 resultswithin the time period is included. Creatinine 7.11(H) 0.55 - 1.02 mg/dL [facility] 05/14/2024 3:00 AM EDT 05/15/2024 1:41 PM EDT Jon Wang MD LAB BLOOD ORDERABLES Final Re sult Performing Organization Address [facility] de Phone Number [facility] [address] [place] [address] * (ABNORMAL) Bilirubin, total (05/14/2024 3:00 AM EDT) Only the most recent of3 resultswithin the time period is included. Total Bilirubin <0.2(L) 0.3 - 1.2 mg/dL [facility] 05/14/2024 3:00 AM EDT 05/15/2024 1:41 PM EDT Jon Wang MD LAB BLOOD ORDERABLES Final Re sult Performing Organization Address [facility] de Phone Number [facility] [address] [place] [address] * (ABNORMAL) Lipid panel (05/14/2024 3:00 AM EDT) Cholesterol 155 <200 mg/dL [facility] Comment: Optimal: [...] Final Re sult [facility] [address] [place] [address] * (ABNORMAL) Electrolyte panel (05/14/2024 3:00 AM [...] ORDERABLES Final Re sult Performing Organization Address [facility] Co de Phone Number [facility] [address] [place] [address] * (ABNORMAL) Hemoglobin (05/05/2024 3:00 AM EDT) Only the most recent of2 resultswithin the time period is included. Hgb 10.2(L) 11.2 - 15.7 g/dL [facility] Hemoglobin x 3 30.6(L) 33.6 - 47.1 g/dL [facility] 05/05/2024 3:00 AM EDT 05/06/2024 12:47 PM EDT Jon Wang MD LAB BLOOD ORDERABLES Final Re sult Performing Organization Address [facility] de Phone Number [facility] [address] [place] [address] * Potassium (04/09/2024 3:00 AM EST) Only the most recent of4 resultswithin the time period is included. Potassium 4.7 3.4 - 5.0 mEq/L [facility] 04/09/2024 3:00 AM EST 04/10/2024 1:32 PM EST Jon Wang MD LAB BLOOD ORDERABLES Final Re sult Performing Organization Address [facility] de Phone Number [facility] [address] [place] [address] * (ABNORMAL) Creatinine clearance, urine, 24 hour (03/31/2024 3:00 AM EST) Patient Height (FT) 150.0 cm [facility] Dry Weight Not Received kg [facility] Creatinine 6.34(H) 0.55 - 1.02 mg/dL [facility] 03/31/2024 3:00 AM EST 04/02/2024 12:56 PM EST us Jon Wang MD LAB URINE ORDERABLES Final Re sult [facility] [address] [place] [address] from Last 3 Months Insurance Medicare Medicaid [place] Medicare Medicaid [place] Medicare [place] Care Teams Tube Knitter Relationship Specialty Start Date End Date Rozina Nicole MD [address] [place], [place] PCP - General 02/21/20
--- OUTSIDE RECORDS SUMMARY | 2024-06-04 10:55 | XMS_ITS | Encounter Summary ---
Author Organization [facility] Address [address] [facility] [address] [place] [address] Phone Care Team Providers Care Gate Manager Name Role Phone Rozina Nicole MD Primary Care Provider Reason for Visit * Reason Onset Date Comments Med Refill 11/23/2020 Encounter Details Date Type Department Care Team (Late st Contact Info) Description 11/23/2020 Refill [facility] [address] [facility] [address] [place] [phone] Nkechi Salvador, ALEX [address] [facility] [address] [place] [address] Social History Tobacco Use Types [...] on filedocumented in this encounter Care Teams Gate Manager Relationship Specialty Start Date End Date Rozina Nicole MD [address] [place], [place] PCP - General 02/21/20 documented as of this encounter
[2024-06-04] MEDS: hydrALAZINE HCl 20 MG/ML VIAL 10 MG IVPUSH (11:34)
[2024-06-04] MEDS: carvediloL 6.25 MG TABLET PO ×2 (12:06→21:08)
--- NOTE | 2024-06-04 13:05 | PM.IMHP ---
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 Pt was recently admitted to the hospital on 05/19-05/21/2024 for melena and acute blood loss anemia. Pt was transfused 2 units of PRBCs, treated with IV PPI and oral Carafate. Underwent EGD by Dr. Moody on 05/20 which found gastritis and congestion with anastomotic ulcers without major active bleeding. Previous imaging was concerning for possible mesenteric ischemia so pt also underwent abdominal U/S that showed no acute ischemia. Today, pt reports woke up this morning at 05:00 with abdominal and chest pain and began vomiting. One hour later pt noticed vomitus was both coffee colored and had streaks of bright red blood in it. Chest pain was left-sided chest and radiated to esophagus and stomach. Had some associated lightheadedness and dizziness. Checked her BP which was high and pt decided to come to the ED for further evaluation. Last episode of vomiting soon after arriving at the ED. Denies melena. Chronic SOB and cough at baseline. Of note, pt missed dialysis today due to being in the hospital. In the ED pt was hypertensive as high as 213/138. Labs were significant for gastric occult blood positive, creatinine slightly elevated from baseline at 4.62, and alk-phos 201. H&H 12.5/38.2, improved significantly from prior of 9.1/27.1. No leukocytosis. No significant electrolyte abnormalities. Troponin WNL at 4.3. CXR showed minimal subsegmental atelectasis in right mid lung zone. EKG demonstrated normal sinus rhythm with QTc 470 with no evidence of ST elevations or depressions. Pt was treated in the ED with Protonix, morphine, prochlorperazine, hydralazine, and carvedilol. Pt is admitted to the hospital for treatment and further evaluation of coffee ground emesis concerning for recurrent UGIB. 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 Lumbar back pain with radiculopathy affecting left lower extremity Physical exam (~02/14/21) Peritoneal dialysis catheter in place Polyarthralgia Dyslipidemia Family history of ovarian cancer Abnormal mammogram of right breast Angina pectoris syndrome Chest pain Constipation Nephrosclerosis Renal interstitial fibrosis Obesity (BMI 30-39.9) Back pain GERD (gastroesophageal reflux disease) History of headache HTN (hypertension) Family History Father Asthma Mother Asthma Hypertension Ovarian cancer Maternal Grandfather Myocardial infarction Paternal Grandmother Stroke Surgical History S/P arteriovenous (AV) graft placement History of sleeve gastrectomy Fistula Hx of colonoscopy Hx of hysterectomy Hx of tubal ligation History of endometrial ablation Social History Household Members: Children Household Members Other:: 30 year old special needs son Housing: Apartment Are you a primary memory care program resident to a significant other at home: No Do you presently have visiting nurse or other home services: Yes Alcohol intake: current Alcohol intake frequency: holidays/special occasions only Alcohol type: beer Comment: Patient doesn't want bed alarm on Patient Tobacco Use Status: Former Tobacco user Tobacco use type: Cigarette Cigarette Packs Per Day: 1 Cigarettes Per Day: 20.0 Years Smoked: 10+ Smoked in Last 30 Days: Yes e-Cigarette/Vaping Use: Never Used Patient Interested in Nicotine Replacement: Yes Patient Given Instructions on How to Stop Smoking: Yes Date Education Initiated: 06/04/24 Second Hand Smoke Exposure: No Use of substances other than those prescribed or required for medical reasons: No Substance Use Type: Caffiene Currently Displaying Signs/Symptoms of Drug Intoxication Withdrawal: No Any prior treatment program specific to substance use: No Have you been hit, kicked, punched, or otherwise hurt by someone within the past year? If so, by whom?: No Do you feel safe in your current relationship?: No Current Relationship Is there a partner from a previous relationship who is making you feel unsafe now?: No Are you made to feel afraid or neglected: No Advance Directives: Yes Advance Directives on File: Yes Advance Directives Date on File: 04/27/20 Do you have a plan to hurt others: No Plan Recently lost weight without trying: No Eating poorly because of decreased appetite: No Nutrition Risks: No Nutritional Risk Patient : No : No Poor oral hygiene: No service: No Current occupational status: employed Cognitive needs: No Hearing needs: No Vision needs: Yes (reading glasses) Meds Allergies Allergy/AdvReac Type Severity Reaction Status Date / Time ibuprofen Allergy Severe Unknown Verified 06/04/24 09:58 nifedipine Allergy Intermediate hives, leg Verified 06/04/24 09:58 edema Home Medications ?Medication ?Instructions ?Recorded ?Confirmed ?Last Taken ?Type ferrous sulfate 325 mg (65 mg 325 mg PO DAILY 05/11/20 06/04/24 06/03/24 History iron) tablet,delayed release cyanocobalamin (vitamin B-12) 1,000 mcg PO DAILY 10/17/20 06/04/24 06/03/24 History 1,000 mcg tablet midodrine 5 mg tablet 5 mg PO DAILY PRN Hypotension 03/25/23 06/04/24 05/18/24 History acetaminophen 500 mg capsule 1,000 mg PO Q8H PRN Pain 08/10/23 06/04/24 05/18/24 History (Mapap (acetaminophen)) fluticasone propionate 50 1 spray intranasal DAILY PRN 08/10/23 06/04/24 05/18/24 History mcg/actuation nasal Allergy Symptoms spray,suspension [id number] 45 mg-folic 1 cap PO DAILY 08/10/23 06/04/24 06/03/24 History acid 800 mcg-vit K 120 mcg capsule (Bariatric Multivitamins) parenteral amino acid 15% no.5 15 0.5 ea IV MOWEFR@0900 08/10/23 06/04/24 06/02/24 History % combination no.5 intravenous solution (Clinisol SF) sucralfate 1 gram tablet 1 g PO BID 08/10/23 06/04/24 06/03/24 History zinc acetate 50 mg (zinc) capsule 100 mg PO DAILY 05/19/24 06/04/24 06/03/24 History ergocalciferol (vitamin D2) 1,250 1,250 mcg PO PLEITEZ 06/04/24 06/04/24 05/23/24 History mcg (50,000 unit) capsule (Vitamin D2) meclizine 12.5 mg tablet 12.5 mg PO TID PRN Nausea And 06/04/24 06/04/24 06/04/24 History Vomiting melatonin 3 mg tablet 3 mg PO BEDTIME PRN Sleep 06/04/24 06/04/24 Unknown History omeprazole 40 mg capsule,delayed 40 mg PO BID@0630,1630 06/04/24 06/04/24 06/03/24 History release sevelamer carbonate 800 mg tablet 1,600 mg PO BIDWM@1200,1700 06/04/24 06/04/24 06/03/24 History Physical Exam Vital Signs and Narrative: Vital Signs: Last Vital Signs Temp 98.0 F 06/04/24 10:15 Pulse 92 06/04/24 12:06 Resp 12 06/04/24 11:52 BP 192/115 H 06/04/24 12:06 Pulse Ox 98 06/04/24 11:52 O2 Del Method Room Air 06/04/24 11:52 BMI result Body Mass Index 21.7 General: AOx3, no acute distress Resp: CTA bilaterally CVS: S1, S2, RRR GI: Epigastric and lef-sided tenderness without rebounding. +BS, no distention Skin: Warm, dry Neuro: Cranial nerves II-XII grossly intact bilaterally. Motor grossly intact bilaterally Extremities: No edema Psych: Appropriate affect Results Labs 06/05/24 07:03 06/05/24 07:03 Labs: Laboratory Results - last 24 hr 06/04/24 10:11 MCV 93.9 MCH 30.7 MCHC 32.7 RDW 13.7 Plt Count 244 MPV 9.7 Immature Gran % (Auto) 0.4 Neut % (Auto) 83.4 H Lymph % (Auto) 10.1 L [place] % (Auto) 4.2 Eos % (Auto) 1.3 Baso % (Auto) 0.6 Lymph # (Auto) 0.8 L [place] # (Auto) 0.3 Eos # (Auto) 0.1 Baso # (Auto) 0.1 Abs Immat Gran (auto) 0.03 Absolute Neuts (auto) 6.6 Absolute Nucleated RBC 0.000 Nucleated RBC % (auto) 0.0 PT 11.4 INR 1.0 Anion Gap 16 Estim Creat Clear Calc 12.8 Estimated GFR 10 Random Glucose 127 H Calcium 9.7 D Magnesium 2.0 Total Bilirubin 0.5 Direct Bilirubin 0.1 AST 19 ALT 12 Alkaline Phosphatase 201 H Total Protein 7.0 Albumin 3.9 Lipase 31 Gastric Occult Blood POSITIVE H Blood Type O Positive Antibody Screen NEGATIVE Imaging Radiologist's Impressions: Impressions Chest X-Ray 06/04/24 10:30 IMPRESSION: Minimal subsegmental atelectasis in the right midlung zone. 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 Pt is admitted to the hospital for treatment and further evaluation of coffee ground emesis concerning for recurrent UGIB. Recurrent GI bleed Pt with hematemesis, coffee-ground emesis, chest and abdominal pain since early this morning Long hx of recurrent UGIB from gastric ulcers as complication from bariatric surgery performed at [facility] Multiple recent hospitalizations here for similar symptoms, last discharged on 05/21/2024 EGD found gastritis and congestion anastomotic ulcers without major active bleeding H&H stable at 12.5/38.2 Protonix b.i.d. Antiemetics, analgesics Clear liquid diet for now, advance as tolerated NPO after midnight for possible EGD in the morning GI consult ESRD on HD M/W/F Missed dialysis today Nephrology consult, follows with [facility] Hypertensive urgency Patient's BP 213/138 at time of presentation Pt given home carvedilol and hydralazine 10 mg IV Continue home meds, HD Monitor BP HLD Continue statin Mood disorder Continue home meds Full Code Attending:?Dr. Pagan DVT Prophylaxis: Pneumatic compression due to GI bleed Pt will require a hospitalization of at least two nights for treatment of?hematemesis and coffee-ground emesis concerning for recurrent upper GI bleed. Pt will require hospital level of care for administration of IV PPI, close monitoring of CBC, and specialist consultation with GI. Quality Stroke Does the patient have a stroke diagnosis?: No VTE Prior VTE?: No VTE Risk Level:: Medical - moderate - high VTE Device Contraindication: N/A - Device Ordered VTE Drug Contraindication: Treatment Not Indicated
[2024-06-04] MEDS: ondansetron HCL 4 MG/2 ML VIAL IVPUSH (15:48)
[2024-06-04] MEDS: 0.9 % Sodium Chloride Flush 3 ML SYRINGE IVFLUSH ×2 (15:48→21:17)
--- NOTE | 2024-06-04 16:04 | PC.NURSE ---
pain medication Pt requesting pain medication for 6/10 pain, Dr. Pagan was notified as there is only tylenol ordered for mild pain, no new orders have been given at this time yet.
--- NOTE | 2024-06-04 17:01 | PHA.MEDREC ---
Pharmacy Consult ? Medication Reconciliation Pharmacy has completed the medication reconciliation. Spoke with pt at bedside. Pt was able to confirm all medications. Pt takes Vitamin D2 on Sundays. She takes ferrous sulfate once daily, not prn. She takes midodrine 5mg qd prn hypotension, not as prescribed 5mg TID. She takes sevelamer 50mg BID with lunch and dinner, not as prescribed TIDWM. And she takes 2 tablets of zinc daily. She Has not filled either sevelamer or sucrafate since 2023, but confirmed she is till taking these medications.
[2024-06-04] MEDS: oxyCODONE HCl Immed Release 5 MG TABLET PO (17:40)
[2024-06-04] MEDS: Sucralfate 1 GM TABLET PO (21:08)
[2024-06-04] MEDS: Gabapentin 400 MG CAPSULE PO (21:08)
[2024-06-04] MEDS: Ferrous Sulfate 324 MG TABLET.DR PO (21:08)
[2024-06-05] MEDS: oxyCODONE HCl Immed Release 5 MG TABLET PO ×2 (02:37→20:47)
[2024-06-05] MEDS: ondansetron HCL 4 MG/2 ML VIAL IVPUSH ×2 (02:38→16:32)
[2024-06-05 03:06] VITALS: BP 91/50; PULSE 71; RESP 18; TEMP 36.9; O2SAT 94
[2024-06-05] MEDS: Midodrine HCl 5 MG TABLET PO ×2 (03:19→23:46)
[2024-06-05] MEDS: Omeprazole 40 MG CAPSULE.DR PO ×2 (06:23→16:33)
[2024-06-05 07:33] LABS: Hematocrit 31.9 % (37.0-47.0); Hemoglobin 10.4 g/dl (12.0-16.0); Mean Corpuscular HGB Conc 32.6 g/dl (31.0-35.0); Mean Corpuscular Hemoglobin 30.9 pg (27.0-33.0); Mean Corpuscular Volume 94.7 fL (80.0-98.0); Mean Platelet Volume 9.6 fL (9.4-12.3); Platelet Count 214 X10*3/uL (160-400); Red Blood Count 3.37 X10*6/uL (4.20-5.50); Red Cell Distribution Width 13.7 % (11.0-16.0); White Blood Count 5.4 X10*3/uL (4.8-10.8)
[2024-06-05 07:56] VITALS: BP 141/80; PULSE 73; RESP 16; TEMP 37.1; O2SAT 100
[2024-06-05 08:00] VITALS: BP 141/80; PULSE 73; RESP 16; TEMP 37.1; O2SAT 100
[2024-06-05 08:13] LABS: Anion Gap 16 (12-20); Blood Urea Nitrogen 28 mg/dL (9-16); Calcium 8.9 mg/dL (8.4-10.2); Carbon Dioxide 25 mmol/L (22-29); Chloride 101 mmol/L (96-108); Creatinine Clr Calc Pharmacy 10.3; Estimated Glomerular Filt Rate 8; Glucose Random 95 mg/dL (60-115); Potassium 4.8 mmol/L (3.3-5.1); Sodium 137 mmol/L (135-145)
--- NOTE | 2024-06-05 09:03 | P.PNIM_ITS ---
Subjective Subjective Date of Service: 06/05/24 Interval History: f/u on recurrent gib bleeding, know anastamotic ulcer no evdidence of active bleed, H/H is stable Physical Exam 2 Vital Signs: Vital Signs: Last Vital Signs Temp 98.8 F 06/05/24 07:56 Pulse 73 06/05/24 07:56 Resp 16 06/05/24 07:56 BP 141/80 H 06/05/24 07:56 Pulse Ox 100 06/05/24 07:56 O2 Del Method Room Air 06/05/24 07:56 O2 Flow Rate 96 06/04/24 14:02 BMI result Body Mass Index 22.1 Const: Other: General: AO X 3, no acute distress Resp: CTA bilateral CVS: S1,S2,RRR GI: +BS, NT, no distention Skin: No rash Neuro: motor grossly intact Psych: appropriate affect Objective Data Active Medications Acetaminophen (Acetaminophen 325 Mg Tablet) 650 mg PO Q6H PRN PRN Reason: Pain, Mild 1-3,fever,headache Calcium Carbonate (Calcium Carbonate 750 Mg Tab.Chew) 750 mg PO Q4H PRN PRN Reason: Heartburn Carvedilol (Carvedilol 6.25 Mg Tablet) 6.25 mg PO BID [facility]; Protocol Last Admin: 06/04/24 21:08 Dose: 6.25 mg Documented By: BELEM Cyanocobalamin (Cyanocobalamin (Vitamin B-12) 1,000 Mcg Tablet) 1,000 mcg PO DAILY [facility] Ergocalciferol (Ergocalciferol (Vitamin D2) 1,250 Mcg Capsule) 1,250 mcg PO PLEITEZ [facility] Escitalopram Oxalate (Escitalopram Oxalate 10 Mg Tablet) 10 mg PO DAILY [facility] Ferrous Sulfate (Ferrous Sulfate 324 Mg Tablet.Dr) 324 mg PO DAILY [facility] Last Admin: 06/04/24 21:08 Dose: 324 mg Documented By: BELEM Fluticasone Propionate (Fluticasone Propionate Nasal 16 Gm [place]) 1 spray NOSTRIL-B DAILY PRN PRN Reason: Allergy Symptoms Gabapentin (Gabapentin 400 Mg Capsule) 400 mg PO BID [facility] Last Admin: 06/04/24 21:08 Dose: 400 mg Documented By: BELEM Magnesium Hydroxide (Milk Of Magnesia 30 Ml Oral.Susp) 30 ml PO DAILY PRN PRN Reason: Constipation Meclizine HCl (Meclizine Hcl 12.5 Mg Tablet) 12.5 mg PO TID PRN PRN Reason: Nausea And Vomiting Melatonin (Melatonin 3 Mg Tablet) 6 mg PO BEDTIME PRN PRN Reason: Insomnia Melatonin (Melatonin 3 Mg Tablet) 3 mg PO BEDTIME PRN PRN Reason: Sleep Midodrine (Midodrine Hcl 5 Mg Tablet) 5 mg PO DAILY PRN PRN Reason: Hypotension Last Admin: 06/05/24 03:19 Dose: 5 mg Documented By: BELEM Morphine Sulfate (Morphine Sulfate 2 Mg/Ml Cartridge) 2 mg IVPUSH Q4H PRN; Protocol PRN Reason: Pain, Severe (Pain Scale 7-10) Omeprazole (Omeprazole 40 Mg Capsule.Dr) 40 mg PO BID@0630,1630 [facility] Last Admin: 06/05/24 06:23 Dose: 40 mg Documented By: BELEM Ondansetron HCl (Ondansetron Hcl 4 Mg/2 Ml Vial) 4 mg IVPUSH Q8H PRN PRN Reason: Nausea and Vomiting Last Admin: 06/05/24 02:38 Dose: 4 mg Documented By: BELEM Oxycodone HCl (Oxycodone Hcl Immed Release 5 Mg Tablet) 5 mg PO Q6H PRN PRN Reason: Pain, Moderate(Pain Scale 4-6) Last Admin: 06/05/24 02:37 Dose: 5 mg Documented By: BELEM Pyridoxine HCl (Pyridoxine Hcl (Vitamin B6) 50 Mg Tablet) 50 mg PO DAILY [facility] Sevelamer Carbonate (Sevelamer Carbonate Tablet 800 Mg Tablet) 1,600 mg PO BIDWM@1200,1700 [facility] Sodium Chloride (0.9 % Sodium Chloride Flush 3 Ml Syringe) 3 ml IVFLUSH QSHIFT [facility] Last Admin: 06/04/24 21:17 Dose: 3 ml Documented By: BELEM Sucralfate (Sucralfate 1 Gm Tablet) 1 gm PO BID [facility] Last Admin: 06/04/24 21:08 Dose: 1 gm Documented By: BELEM Thiamine HCl (Thiamine Hcl 100 Mg Tablet) 100 mg PO DAILY [facility] Labs 06/06/24 06:15 06/06/24 06:15 Labs: Laboratory Results - last 24 hr 06/04/24 06/05/24 10:11 07:03 MCV 93.9 94.7 MCH 30.7 30.9 MCHC 32.7 32.6 RDW 13.7 13.7 Plt Count 244 214 MPV 9.7 9.6 Immature Gran % (Auto) 0.4 Neut % (Auto) 83.4 H Lymph % (Auto) 10.1 L [place] % (Auto) 4.2 Eos % (Auto) 1.3 Baso % (Auto) 0.6 Lymph # (Auto) 0.8 L [place] # (Auto) 0.3 Eos # (Auto) 0.1 Baso # (Auto) 0.1 Abs Immat Gran (auto) 0.03 Absolute Neuts (auto) 6.6 Absolute Nucleated RBC 0.000 0.000 Nucleated RBC % (auto) 0.0 0.0 PT 11.4 INR 1.0 Anion Gap 16 16 Estim Creat Clear Calc 12.8 10.3 Estimated GFR 10 8 Random Glucose 127 H 95 Calcium 9.7 D 8.9 D Magnesium 2.0 Total Bilirubin 0.5 Direct Bilirubin 0.1 AST 19 ALT 12 Alkaline Phosphatase 201 H Total Protein 7.0 Albumin 3.9 Lipase 31 Gastric Occult Blood POSITIVE H Blood Type O Positive Antibody Screen NEGATIVE Assessment and Plan (1) UGIB (upper gastrointestinal bleed): Status: Acute (2) Gastritis: Status: Acute (3) Esophagitis: Status: Acute Plan Pt is a 53-year-old female with a PMH significant for?ESRD on HD M/W/F, 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 Pt is admitted to the hospital for treatment and further evaluation of coffee ground emesis concerning for recurrent UGIB. Recurrent GI bleed Pt with hematemesis, coffee-ground emesis, chest and abdominal pain Long hx of recurrent UGIB from gastric ulcers as complication from bariatric surgery performed at [facility] Multiple recent hospitalizations here for similar symptoms, last discharged on 05/21/2024 EGD found gastritis and congestion anastomotic ulcers without major active bleeding H&H stable at 12.5/38.2--> 12/10--drop likely from hemodilution, 12/10 appears to be her baseline IV Protonix b.i.d. Antiemetics, analgesics Clear liquid diet for now, advance as tolerated NPO, GI consult ESRD on HD M/W/F Missed dialysis yesterday Nephrology consult, follows with [facility] Hypertensive urgency, resolved following IV hydralazine resume home meds HLD Continue statin Mood disorder Continue home meds Full Code DVT Prophylaxis: Pneumatic compression due to GI bleed Pt will require a hospitalization of at least two nights for treatment of?hematemesis and coffee-ground emesis concerning for recurrent upper GI bleed. Pt will require hospital level of care for administration of IV PPI, close monitoring of CBC, and specialist consultation with GI. Quality Stroke Does the patient have a stroke diagnosis?: No VTE Prior VTE?: No VTE Risk Level:: Medical - moderate - high VTE Device Contraindication: N/A - Device Ordered VTE Drug Contraindication: Treatment Not Indicated
[2024-06-05] MEDS: 0.9 % Sodium Chloride Flush 3 ML SYRINGE IVFLUSH ×3 (09:28→20:50)
[2024-06-05] MEDS: Escitalopram Oxalate 10 MG TABLET PO (09:28)
[2024-06-05] MEDS: Gabapentin 400 MG CAPSULE PO ×2 (09:28→20:47)
[2024-06-05] MEDS: Cyanocobalamin (Vitamin B-12) 1,000 MCG TABLET 1000 MCG PO (09:29)
[2024-06-05] MEDS: Ferrous Sulfate 324 MG TABLET.DR PO (09:29)
[2024-06-05] MEDS: Thiamine HCL 100 MG TABLET PO (09:29)
[2024-06-05] MEDS: Sucralfate 1 GM TABLET PO ×2 (09:29→20:47)
[2024-06-05] MEDS: Pyridoxine HCl (Vitamin B6) 50 MG TABLET PO (09:29)
[2024-06-05] MEDS: carvediloL 6.25 MG TABLET PO (09:29)
[2024-06-05] MEDS: Morphine Sulfate 2 MG/ML CARTRIDGE IVPUSH ×2 (09:40→16:32)
--- NOTE | 2024-06-05 10:47 | PM.GICN ---
History of Present Illness Data of Consult Service Date: 06/04/24 Requesting physician: Anthony Arredondo Primary Care Provider: Unknown Physician HPI Reason for consult: coffee ground emesis 53 year old woman with hx of end-stage renal disease on hemodialysis (MWF), GERD, hemorrhoids, diverticulosis, gastric sleeve surgery, s/p revision of gastric bypass at [facility] and essential hypertension who presented to the hospital for coffee-ground emesis. Patient had a recent hospital admission few weeks ago for UGIB 2/2 bleeding from marginal ulcers. At that time also had melena with severe drop in H&H requiring blood transfusion. EGD 05/20/2024: Anastomotic ulcers without bleeding. Gastritis. Patient reports she has been taking her omeprazole capsules opened and granules mixed in applesauce as prescribed since discharge. Day before admission, she noticed right-sided abdominal pain with nausea. Initial vomiting was clear, and progressively noted some coffee-grounds. On arrival to the emergency room hemoglobin was 12, likely reflects hemoconcentration as her baseline has a time of discharge was 9 two weeks ago. Hemoglobin today is 10.4 which is more reflective of the current H&H. Currently at bedside, does not report any abdominal pain, nausea, vomiting. Last episode of coffee-ground emesis was yesterday morning, more than 24 hours ago. 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 Lumbar back pain with radiculopathy affecting left lower extremity Physical exam (~02/14/21) Peritoneal dialysis catheter in place Polyarthralgia Dyslipidemia Family history of ovarian cancer Abnormal mammogram of right breast Angina pectoris syndrome Chest pain Constipation Nephrosclerosis Renal interstitial fibrosis Obesity (BMI 30-39.9) Back pain GERD (gastroesophageal reflux disease) History of headache HTN (hypertension) Family History Family History Father Asthma Mother Asthma Hypertension Ovarian cancer Maternal Grandfather Myocardial infarction Paternal Grandmother Stroke Surgical History Surgical History (Updated 06/05/24 @ 10:58 by Teena Murrell MD) History of sleeve gastrectomy S/P arteriovenous (AV) graft placement Fistula Hx of colonoscopy Hx of hysterectomy Hx of tubal ligation History of endometrial ablation Social History Social History Household Members: Children Household Members Other:: 30 year old special needs son Housing: Apartment Are you a primary intensive care anaesthetist to a significant other at home: No Do you presently have visiting nurse or other home services: Yes Alcohol intake: current Alcohol intake frequency: holidays/special occasions only Alcohol type: beer Comment: Patient doesn't want bed alarm on Patient Tobacco Use Status: Former Tobacco user Tobacco use type: Cigarette Cigarette Packs Per Day: 1 Cigarettes Per Day: 20.0 Years Smoked: 10+ Smoked in Last 30 Days: Yes e-Cigarette/Vaping Use: Never Used Patient Interested in Nicotine Replacement: Yes Patient Given Instructions on How to Stop Smoking: Yes Date Education Initiated: 06/04/24 Second Hand Smoke Exposure: No Use of substances other than those prescribed or required for medical reasons: No Substance Use Type: Caffiene Currently Displaying Signs/Symptoms of Drug Intoxication Withdrawal: No Any prior treatment program specific to substance use: No Have you been hit, kicked, punched, or otherwise hurt by someone within the past year? If so, by whom?: No Do you feel safe in your current relationship?: No Current Relationship Is there a partner from a previous relationship who is making you feel unsafe now?: No Are you made to feel afraid or neglected: No Advance Directives: Yes Advance Directives on File: Yes Advance Directives Date on File: 04/27/20 Do you have a plan to hurt others: No Plan Recently lost weight without trying: No Eating poorly because of decreased appetite: No Nutrition Risks: No Nutritional Risk Patient : No : No Poor oral hygiene: No service: No Current occupational status: employed Cognitive needs: No Hearing needs: No Vision needs: Yes (reading glasses) Meds Allergies Allergy/AdvReac Type Severity Reaction Status Date / Time ibuprofen Allergy Severe Unknown Verified 06/04/24 09:58 nifedipine Allergy Intermediate hives, leg Verified 06/04/24 09:58 edema Active Medications: Current Medications Acetaminophen (Acetaminophen 325 Mg Tablet) 650 mg PO Q6H PRN PRN Reason: Pain, Mild 1-3,fever,headache Calcium Carbonate (Calcium Carbonate 750 Mg Tab.Chew) 750 mg PO Q4H PRN PRN Reason: Heartburn Magnesium Hydroxide (Milk Of Magnesia 30 Ml Oral.Susp) 30 ml PO DAILY PRN PRN Reason: Constipation Melatonin (Melatonin 3 Mg Tablet) 6 mg PO BEDTIME PRN PRN Reason: Insomnia Morphine Sulfate (Morphine Sulfate 2 Mg/Ml Cartridge) 2 mg IVPUSH Q4H PRN; Protocol PRN Reason: Pain, Severe (Pain Scale 7-10) Ondansetron HCl (Ondansetron Hcl 4 Mg/2 Ml Vial) 4 mg IVPUSH Q8H PRN PRN Reason: Nausea and Vomiting Last Admin: 06/04/24 15:48 Dose: 4 mg Oxycodone HCl (Oxycodone Hcl Immed Release 5 Mg Tablet) 5 mg PO Q6H PRN PRN Reason: Pain, Moderate(Pain Scale 4-6) Pantoprazole Sodium (Pantoprazole Sodium 40 Mg/10 Ml Vial) 40 mg IVPUSH BID@0630,1630 [facility] Last Admin: 06/04/24 15:48 Dose: 40 mg Sodium Chloride (0.9 % Sodium Chloride Flush 3 Ml Syringe) [facility] Last Admin: 06/04/24 15:48 Dose: 3 ml Home Medications ?Medication ?Instructions ?Recorded ?Confirmed ?Last Taken ?Type ferrous sulfate 325 mg (65 mg 325 mg PO DAILY 05/11/20 06/04/24 06/03/24 History iron) tablet,delayed release cyanocobalamin (vitamin B-12) 1,000 mcg PO DAILY 10/17/20 06/04/24 06/03/24 History 1,000 mcg tablet midodrine 5 mg tablet 5 mg PO DAILY PRN Hypotension 03/25/23 06/04/24 05/18/24 History acetaminophen 500 mg capsule 1,000 mg PO Q8H PRN Pain 08/10/23 06/04/24 05/18/24 History (Mapap (acetaminophen)) fluticasone propionate 50 1 spray intranasal DAILY PRN 08/10/23 06/04/24 05/18/24 History mcg/actuation nasal Allergy Symptoms spray,suspension [id number] 45 mg-folic 1 cap PO DAILY 08/10/23 06/04/24 06/03/24 History acid 800 mcg-vit K 120 mcg capsule (Bariatric Multivitamins) parenteral amino acid 15% no.5 15 0.5 ea IV MOWEFR@0900 08/10/23 06/04/24 06/02/24 History % combination no.5 intravenous solution (Clinisol SF) sucralfate 1 gram tablet 1 g PO BID 08/10/23 06/04/24 06/03/24 History zinc acetate 50 mg (zinc) capsule 100 mg PO DAILY 05/19/24 06/04/24 06/03/24 History ergocalciferol (vitamin D2) 1,250 1,250 mcg PO PLEITEZ 06/04/24 06/04/24 05/23/24 History mcg (50,000 unit) capsule (Vitamin D2) meclizine 12.5 mg tablet 12.5 mg PO TID PRN Nausea And 06/04/24 06/04/24 06/04/24 History Vomiting melatonin 3 mg tablet 3 mg PO BEDTIME PRN Sleep 06/04/24 06/04/24 Unknown History omeprazole 40 mg capsule,delayed 40 mg PO BID@0630,1630 06/04/24 06/04/24 06/03/24 History release sevelamer carbonate 800 mg tablet 1,600 mg PO BIDWM@1200,1700 06/04/24 06/04/24 06/03/24 History Physical Exam Vital Signs: Vital Signs: Last Vital Signs Temp 98.3 F 06/04/24 15:51 Pulse 86 06/04/24 15:51 Resp 16 06/04/24 15:51 BP 108/48 L 06/04/24 15:51 Pulse Ox 96 06/04/24 15:51 O2 Del Method Room Air 06/04/24 15:51 O2 Flow Rate 96 06/04/24 14:02 BMI result Body Mass Index 21.7 Middle-aged female In no acute distress Nonicteric Abdomen soft, nontender, nondistended No overt respiratory distress No oriented x3, no focal deficits Results Labs 06/05/24 07:03 06/05/24 07:03 Labs: Short CBC 06/04/24 Range/Units 10:11 WBC 7.9 (4.8-10.8) X10*3/uL Hgb 12.5 D (12.0-16.0) g/dl Hct 38.2 D (37.0-47.0) % Plt Count 244 (160-400) X10*3/uL BMP 06/04/24 10:11 Sodium 138 Potassium 4.5 Chloride 102 Carbon Dioxide 25 BUN 22 H Creatinine 4.62 H* Calcium 9.7 D Liver Function 06/04/24 Range/Units 10:11 Total Bilirubin 0.5 (0.0-1.0) mg/dL Direct Bilirubin 0.1 (0.0-0.5) mg/dL AST 19 (5-31) U/L ALT 12 (0-31) U/L Alkaline Phosphatase 201 H (39-117) U/L Albumin 3.9 (3.5-5.0) g/dL Assessment and Plan (1) Coffee ground emesis: Status: Acute (2) UGIB (upper gastrointestinal bleed): Status: Acute (3) Anemia: Status: Acute (4) Marginal ulcer: Status: Acute (5) Gastritis: Status: Acute (6) History of sleeve gastrectomy: Status: Acute (7) ESRD (end stage renal disease): Status: Acute Plan Differentials include small Tania-Dixon tear, especially given her description of events, bleeding from marginal ulcers, gastritis. At this time, repeat diagnostic endoscopy is likely to be low yield given no further hematemesis and stable H/H. Plan: - Agree with continuing high-dose PPI and liquid Carafate. Pt again reminded to open the ppi capsules and mix granules in applesauce/pudding. - Diet may be advanced. - Monitor CBC b.i.d.. - If has clinically significant drop in hemoglobin, can consider endoscopic evaluation at that time. - EPO and Venofer as per Nephrology. Thank you for allowing me to participate in her care. Please do not hesitate to reach out for any questions or concerns. Procedures Date of Service Date of Service: 06/05/24
--- NOTE | 2024-06-05 13:39 | MHC.CM.PN ---
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
--- NOTE | 2024-06-05 13:50 | PM.CNNEP ---
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 bariatric surgery, mesenteric stenosis, HLD, GERD, HTN, and chronic back pain who presents to the ED with?chest pain and coffee-ground emesis, now planned gi work up with scopy on friday nephrology consulted for HD needs [facility] Past Medical History Medical History (Updated 06/05/24 @ 10:58 by Teena Murrell MD) ESRD (end stage renal disease) ESRD on dialysis Smoker End stage chronic kidney disease Moderate major depression Physical exam Spondylosis without myelopathy or radiculopathy, lumbar region Spinal stenosis 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 Lumbar back pain with radiculopathy affecting left lower extremity Physical exam (~02/14/21) Peritoneal dialysis catheter in place Polyarthralgia Dyslipidemia Family history of ovarian cancer Abnormal mammogram of right breast Angina pectoris syndrome Chest pain Constipation Nephrosclerosis Renal interstitial fibrosis Obesity (BMI 30-39.9) Back pain GERD (gastroesophageal reflux disease) History of headache HTN (hypertension) Family History Family History Father Asthma Mother Asthma Hypertension Ovarian cancer Maternal Grandfather Myocardial infarction Paternal Grandmother Stroke Surgical History Surgical History (Updated 06/05/24 @ 10:58 by Teena Murrell MD) History of sleeve gastrectomy S/P arteriovenous (AV) graft placement Fistula Hx of colonoscopy Hx of hysterectomy Hx of tubal ligation History of endometrial ablation Social History Social History Household Members: Children Household Members Other:: 30 year old special needs son Housing: Apartment Are you a primary patient care coordinator to a significant other at home: No Do you presently have visiting nurse or other home services: Yes Alcohol intake: current Alcohol intake frequency: holidays/special occasions only Alcohol type: beer Comment: Patient doesn't want bed alarm on Patient Tobacco Use Status: Former Tobacco user Tobacco use type: Cigarette Cigarette Packs Per Day: 1 Cigarettes Per Day: 20.0 Years Smoked: 10+ Smoked in Last 30 Days: Yes e-Cigarette/Vaping Use: Never Used Patient Interested in Nicotine Replacement: Yes Patient Given Instructions on How to Stop Smoking: Yes Date Education Initiated: 06/04/24 Second Hand Smoke Exposure: No Use of substances other than those prescribed or required for medical reasons: No Substance Use Type: Caffiene Currently Displaying Signs/Symptoms of Drug Intoxication Withdrawal: No Any prior treatment program specific to substance use: No Have you been hit, kicked, punched, or otherwise hurt by someone within the past year? If so, by whom?: No Do you feel safe in your current relationship?: No Current Relationship Is there a partner from a previous relationship who is making you feel unsafe now?: No Are you made to feel afraid or neglected: No Advance Directives: Yes Advance Directives on File: Yes Advance Directives Date on File: 04/27/20 Do you have a plan to hurt others: No Plan Recently lost weight without trying: No Eating poorly because of decreased appetite: No Nutrition Risks: No Nutritional Risk Patient : No : No Poor oral hygiene: No service: No Current occupational status: employed Cognitive needs: No Hearing needs: No Vision needs: Yes (reading glasses) Meds Allergies Allergy/AdvReac Type Severity Reaction Status Date / Time ibuprofen Allergy Severe Unknown Verified 06/04/24 09:58 nifedipine Allergy Intermediate hives, leg Verified 06/04/24 09:58 edema Active Medications: Current Medications Acetaminophen (Acetaminophen 325 Mg Tablet) 650 mg PO Q6H PRN PRN Reason: Pain, Mild 1-3,fever,headache Calcium Carbonate (Calcium Carbonate 750 Mg Tab.Chew) 750 mg PO Q4H PRN PRN Reason: Heartburn Carvedilol (Carvedilol 6.25 Mg Tablet) 6.25 mg PO BID [facility]; Protocol Last Admin: 06/05/24 09:29 Dose: 6.25 mg Cyanocobalamin (Cyanocobalamin (Vitamin B-12) 1,000 Mcg Tablet) 1,000 mcg PO DAILY [facility] Last Admin: 06/05/24 09:29 Dose: 1,000 mcg Ergocalciferol (Ergocalciferol (Vitamin D2) 1,250 Mcg Capsule) 1,250 mcg PO [facility] Escitalopram Oxalate (Escitalopram Oxalate 10 Mg Tablet) 10 mg PO DAILY [facility] Last Admin: 06/05/24 09:28 Dose: 10 mg Ferrous Sulfate (Ferrous Sulfate 324 Mg Tablet.) 324 mg PO DAILY [facility] Last Admin: 06/05/24 09:29 Dose: 324 mg Fluticasone Propionate (Fluticasone Propionate Nasal 16 Gm Canones) 1 spray NOSTRIL-B DAILY PRN PRN Reason: Allergy Symptoms Gabapentin (Gabapentin 400 Mg Capsule) 400 mg PO BID [facility] Last Admin: 06/05/24 09:28 Dose: 400 mg Magnesium Hydroxide (Milk Of Magnesia 30 Ml Oral.Susp) 30 ml PO DAILY PRN PRN Reason: Constipation Meclizine HCl (Meclizine Hcl 12.5 Mg Tablet) 12.5 mg PO TID PRN PRN Reason: Nausea And Vomiting Melatonin (Melatonin 3 Mg Tablet) 6 mg PO BEDTIME PRN PRN Reason: Insomnia Melatonin (Melatonin 3 Mg Tablet) 3 mg PO BEDTIME PRN PRN Reason: Sleep Midodrine (Midodrine Hcl 5 Mg Tablet) 5 mg PO DAILY PRN PRN Reason: Hypotension Last Admin: 06/05/24 03:19 Dose: 5 mg Morphine Sulfate (Morphine Sulfate 2 Mg/Ml Cartridge) 2 mg IVPUSH Q4H PRN; Protocol PRN Reason: Pain, Severe (Pain Scale 7-10) Last Admin: 06/05/24 09:40 Dose: 2 mg Omeprazole (Omeprazole 40 Mg Capsule.) 40 mg PO BID@0630,1630 [facility] Last Admin: 06/05/24 06:23 Dose: 40 mg Ondansetron HCl (Ondansetron Hcl 4 Mg/2 Ml Vial) 4 mg IVPUSH Q8H PRN PRN Reason: Nausea and Vomiting Last Admin: 06/05/24 02:38 Dose: 4 mg Oxycodone HCl (Oxycodone Hcl Immed Release 5 Mg Tablet) 5 mg PO Q6H PRN PRN Reason: Pain, Moderate(Pain Scale 4-6) Last Admin: 06/05/24 02:37 Dose: 5 mg Pyridoxine HCl (Pyridoxine Hcl (Vitamin B6) 50 Mg Tablet) 50 mg PO DAILY [facility] Last Admin: 06/05/24 09:29 Dose: 50 mg Sevelamer Carbonate (Sevelamer Carbonate Tablet 800 Mg Tablet) 1,600 mg PO BIDWM@1200,1700 [facility] Sodium Chloride (0.9 % Sodium Chloride Flush 3 Ml Syringe) 3 ml IVFLUSH QSHIFT [facility] Last Admin: 06/05/24 09:28 Dose: 3 ml Sucralfate (Sucralfate 1 Gm Tablet) 1 gm PO BID [facility] Last Admin: 06/05/24 09:29 Dose: 1 gm Thiamine HCl (Thiamine Hcl 100 Mg Tablet) 100 mg PO DAILY [facility] Last Admin: 06/05/24 09:29 Dose: 100 mg Home Medications ?Medication ?Instructions ?Recorded ?Confirmed ?Last Taken ?Type ferrous sulfate 325 mg (65 mg 325 mg PO DAILY 05/11/20 06/04/24 06/03/24 History iron) tablet,delayed release cyanocobalamin (vitamin B-12) 1,000 mcg PO DAILY 10/17/20 06/04/24 06/03/24 History 1,000 mcg tablet midodrine 5 mg tablet 5 mg PO DAILY PRN Hypotension 03/25/23 06/04/24 05/18/24 History acetaminophen 500 mg capsule 1,000 mg PO Q8H PRN Pain 08/10/23 06/04/24 05/18/24 History (Mapap (acetaminophen)) fluticasone propionate 50 1 spray intranasal DAILY PRN 08/10/23 06/04/24 05/18/24 History mcg/actuation nasal Allergy Symptoms spray,suspension [id number] 45 mg-folic 1 cap PO DAILY 08/10/23 06/04/24 06/03/24 History acid 800 mcg-vit K 120 mcg capsule (Bariatric Multivitamins) parenteral amino acid 15% no.5 15 0.5 ea IV MOWEFR@0900 08/10/23 06/04/24 06/02/24 History % combination no.5 intravenous solution (Clinisol SF) sucralfate 1 gram tablet 1 g PO BID 08/10/23 06/04/24 06/03/24 History zinc acetate 50 mg (zinc) capsule 100 mg PO DAILY 05/19/24 06/04/24 06/03/24 History ergocalciferol (vitamin D2) 1,250 1,250 mcg PO PLEITEZ 06/04/24 06/04/24 05/23/24 History mcg (50,000 unit) capsule (Vitamin D2) meclizine 12.5 mg tablet 12.5 mg PO TID PRN Nausea And 06/04/24 06/04/24 06/04/24 History Vomiting melatonin 3 mg tablet 3 mg PO BEDTIME PRN Sleep 06/04/24 06/04/24 Unknown History omeprazole 40 mg capsule,delayed 40 mg PO BID@0630,1630 06/04/24 06/04/24 06/03/24 History release sevelamer carbonate 800 mg tablet 1,600 mg PO BIDWM@1200,1700 06/04/24 06/04/24 06/03/24 History Physical Exam Vital Signs: Last Vital Signs Temp 98.8 F 06/05/24 08:00 Pulse 73 06/05/24 08:00 Resp 16 06/05/24 08:00 BP 141/80 H 06/05/24 08:00 Pulse Ox 100 06/05/24 08:00 O2 Del Method Room Air 06/05/24 08:00 O2 Flow Rate 96 06/04/24 14:02 BMI result Body Mass Index 22.1 cvs: s1s2 Rs; cta Abd; soft Results Lab Results 06/05/24 07:03 06/05/24 07:03 Lab results: Chemistry 06/04/24 06/05/24 10:11 07:03 Sodium 138 137 Potassium 4.5 4.8 Carbon Dioxide 25 25 BUN 22 H 28 H Creatinine 4.62 H* 5.75 H* Calcium 9.7 D 8.9 D Hematology 06/04/24 06/05/24 10:11 07:03 WBC 7.9 5.4 Hgb 12.5 D 10.4 L Plt Count 244 214 Assessment and Plan (1) ESRD (end stage renal disease): Status: Acute Plan 1) ESRD on dialysis: Status: Acute Plan 1. ESRD: [facility]- TTS in hospital 2. GIB 3. PD cath removed d /t recurrent infection and on vanco/cefipine 4. Anemia:no need for HARDEEP , hb at goal Procedures Date of Service Date of Service: 06/05/24
[2024-06-05 15:43] VITALS: BP 102/65; PULSE 83; RESP 16; TEMP 37.4; O2SAT 97
[2024-06-05] MEDS: Sevelamer Carbonate Tablet 800 MG TABLET 1600 MG PO (18:46)
[2024-06-05 19:09] VITALS: BP 93/54; PULSE 80; RESP 18; TEMP 37.2; O2SAT 95
[2024-06-05 23:16] VITALS: BP 84/52; PULSE 80; RESP 18; TEMP 37; O2SAT 95
[2024-06-06] VITALS (7 sets, daily range): BP systolic 90–118; BP diastolic 45–71; PULSE 74–88; RESP 12–18; TEMP 36.3–37.1; O2SAT 96–100
[2024-06-06 00:28] LABS: MANUAL DIFF FLAG NO
[2024-06-06 00:29] LABS: Basophils Absolute Auto 0.1 X10*3/uL (0.0-0.2); Basophils Percent Auto 0.7 % (0-2); Eosinophils Absolute Auto 0.3 X10*3/uL (0.0-0.4); Eosinophils Percent Auto 3.8 % (0-4); Hemoglobin 11.4 g/dl (12.0-16.0); Imm Gran Abs Auto 0.02 X10*3/uL (0.00-0.03); Imm Gran Pct Auto 0.3 % (0.0-0.4); Lymphocytes Absolute Auto 1.9 X10*3/uL (1.2-4.9); Lymphocytes Percent Auto 25.7 % (20-40); Mean Corpuscular HGB Conc 33.5 g/dl (31.0-35.0); Mean Corpuscular Hemoglobin 31.1 pg (27.0-33.0); Mean Corpuscular Volume 92.6 fL (80.0-98.0); Mean Platelet Volume 9.1 fL (9.4-12.3); Monocytes Absolute Auto 0.7 X10*3/uL (0.1-1.2); Monocytes Percent Auto 9.6 % (2-11); Neutrophils Absolute Auto 4.5 x10*3/uL (2.0-8.3); Neutrophils Percent Auto 59.9 % (45-73); Platelet Count 223 X10*3/uL (160-400); Red Blood Count 3.67 X10*6/uL (4.20-5.50); Red Cell Distribution Width 13.5 % (11.0-16.0); White Blood Count 7.4 X10*3/uL (4.8-10.8)
[2024-06-06] MEDS: ondansetron HCL 4 MG/2 ML VIAL IVPUSH ×2 (06:08→14:58)
[2024-06-06] MEDS: Omeprazole 40 MG CAPSULE.DR PO ×2 (06:08→17:17)
[2024-06-06 07:12] LABS: Hematocrit 36.2 % (37.0-47.0); Mean Corpuscular HGB Conc 33.1 g/dl (31.0-35.0); Mean Corpuscular Hemoglobin 31.6 pg (27.0-33.0); Mean Corpuscular Volume 95.3 fL (80.0-98.0); Platelet Count 239 X10*3/uL (160-400); Red Cell Distribution Width 13.5 % (11.0-16.0)
[2024-06-06 07:48] LABS: Anion Gap 17 (12-20); Blood Urea Nitrogen 17 mg/dL (9-16); Calcium 9.4 mg/dL (8.4-10.2); Carbon Dioxide 28 mmol/L (22-29); Chloride 96 mmol/L (96-108); Creatinine Clr Calc Pharmacy 13.1; Estimated Glomerular Filt Rate 10; Glucose Random 84 mg/dL (60-115); Potassium 4.8 mmol/L (3.3-5.1); Sodium 136 mmol/L (135-145)
[2024-06-06] MEDS: 0.9 % Sodium Chloride Flush 3 ML SYRINGE IVFLUSH ×2 (09:01→19:55)
[2024-06-06] MEDS: Escitalopram Oxalate 10 MG TABLET PO (09:02)
[2024-06-06] MEDS: Cyanocobalamin (Vitamin B-12) 1,000 MCG TABLET 1000 MCG PO (09:02)
[2024-06-06] MEDS: Ferrous Sulfate 324 MG TABLET.DR PO (09:02)
[2024-06-06] MEDS: Pyridoxine HCl (Vitamin B6) 50 MG TABLET PO (09:02)
[2024-06-06] MEDS: Sucralfate 1 GM TABLET PO ×2 (09:02→19:55)
[2024-06-06] MEDS: Gabapentin 400 MG CAPSULE PO ×2 (09:02→19:55)
[2024-06-06] MEDS: carvediloL 3.125 MG TABLET PO ×2 (09:03→19:55)
[2024-06-06] MEDS: Thiamine HCL 100 MG TABLET PO (09:03)
--- NOTE | 2024-06-06 09:41 | PC.NURSE ---
patient did vomit a moderate amount and felt nauseous after attempting to eat breakfast, I notified the provider of all this. 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
--- NOTE | 2024-06-06 09:43 | P.DS_ITS ---
DS: Providers Provider Date of Service: 06/06/24 Date of admission: 06/04/24 13:30 Date of discharge: 06/06/24 Primary care physician: Unknown Physician Consults: 06/04/24 13:37 Consult to Nephrology Routine Consulting Provider: [facility] 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 Pt was recently admitted to the hospital on 05/19-05/21/2024 for melena and acute blood loss anemia. Pt was transfused 2 units of PRBCs, treated with IV PPI and oral Carafate. Underwent EGD by Dr. Moody on 05/20 which found gastritis and congestion with anastomotic ulcers without major active bleeding. Previous imaging was concerning for possible mesenteric ischemia so pt also underwent abdominal U/S that showed no acute ischemia. Today, pt reports woke up this morning at 05:00 with abdominal and chest pain and began vomiting. One hour later pt noticed vomitus was both coffee colored and had streaks of bright red blood in it. Chest pain was left-sided chest and radiated to esophagus and stomach. Had some associated lightheadedness and dizziness. Checked her BP which was high and pt decided to come to the ED for further evaluation. Last episode of vomiting soon after arriving at the ED. Denies melena. Chronic SOB and cough at baseline. Of note, pt missed dialysis today due to being in the hospital. In the ED pt was hypertensive as high as 213/138. Labs were significant for gastric occult blood positive, creatinine slightly elevated from baseline at 4.62, and alk-phos 201. H&H 12.5/38.2, improved significantly from prior of 9.1/27.1. No leukocytosis. No significant electrolyte abnormalities. Troponin WNL at 4.3. CXR showed minimal subsegmental atelectasis in right mid lung zone. EKG demonstrated normal sinus rhythm with QTc 470 with no evidence of ST elevations or depressions. Pt was treated in the ED with Protonix, morphine, prochlorperazine, hydralazine, and carvedilol. Pt is admitted to the hospital for treatment and further evaluation of coffee ground emesis concerning for recurrent UGIB. Hospital course: The patient was admitted and treated with IV PPI. There was no significant drop in hemoglobin; the decrease from 12 to 10 was attributed to hemodilution, and levels returned to 12 the following day. GI recommended continuing the PPI as previously prescribed. She has not had any further episodes of vomiting. She was advised to follow up with her bariatric surgeon. Final diagnoses: Recurrent upper GI bleed Esophageal Gastritis Time Attestation Discharge Coordination Time (in mins): 40 Quality: Safe Use of Opioids Does Pt have an Active Cancer Diagnosis on the Problem List?: No Quality: Stroke Does the patient have a stroke diagnosis?: No Physical Exam Vital Signs: Vital Signs: Last Vital Signs Temp 98.8 F 06/06/24 07:27 Pulse 80 06/06/24 07:27 Resp 12 06/06/24 07:27 BP 102/64 06/06/24 07:27 Pulse Ox 100 06/06/24 07:27 O2 Del Method Room Air 06/06/24 07:27 O2 Flow Rate 96 06/04/24 14:02 BMI result Body Mass Index 22.1 DS: Data Data Completed and Pending Completed studies during hospitalization [Text1]: Procedures Control Bleeding in Gastrointestinal Tract, Via Natural or Artificial Opening Endoscopic (05/19/24) Excision of Stomach, Pylorus, Via Natural or Artificial Opening Endoscopic, Diagnostic (05/19/24) Inspection of Upper Intestinal Tract, Via Natural or Artificial Opening Endoscopic (04/24/24) Introduction of Mineral-based Topical Hemostatic Agent into Upper GI, Via Natural or Artificial Opening Endoscopic, [employer] 6 (11/19/23) Performance of Urinary Filtration, Intermittent, Less than 6 Hours Per Day (05/19/24) Transfusion of Nonautologous Red Blood Cells into Peripheral Vein, Percutaneous Approach (05/19/24) Labs on day of discharge: Laboratory Results - last 24 hr 06/06/24 06/06/24 00:24 06:15 WBC 7.4 6.0 RBC 3.67 L 3.80 L Hgb 11.4 L 12.0 Hct 34.0 L 36.2 L MCV 92.6 95.3 MCH 31.1 31.6 MCHC 33.5 33.1 RDW 13.5 13.5 Plt Count 223 239 MPV 9.1 L 10.0 Immature Gran % (Auto) 0.3 Neut % (Auto) 59.9 Lymph % (Auto) 25.7 [place] % (Auto) 9.6 Eos % (Auto) 3.8 Baso % (Auto) 0.7 Lymph # (Auto) 1.9 [place] # (Auto) 0.7 Eos # (Auto) 0.3 Baso # (Auto) 0.1 Abs Immat Gran (auto) 0.02 Absolute Neuts (auto) 4.5 Absolute Nucleated RBC 0.000 0.000 Nucleated RBC % (auto) 0.0 0.0 Sodium 136 Potassium 4.8 Chloride 96 Carbon Dioxide 28 Anion Gap 17 BUN 17 H Creatinine 4.50 H* Estim Creat Clear Calc 13.1 Estimated GFR 10 Random Glucose 84 Calcium 9.4 Discharge Plan Discharge Anticipated Discharge Date/Time: 06/06/24 09:39 Patient Disposition: Home, Self-Care Discharge Diagnosis: Gastritis, esophagitis reuccurent gi bleeding Referrals: Physician,Unknown J [Primary Care Provider] - 1 Week Discharge Medications: Continued thiamine HCl (vitamin B1) 100 mg tablet 100 mg PO DAILY 90 Days Qty: 90 0RF vitamin A 2,400 mcg capsule 2,400 mcg PO DAILY 90 Days Qty: 90 1RF citalopram 20 mg tablet 20 mg PO DAILY 90 Days Qty: 90 1RF carvedilol 6.25 mg tablet 6.25 mg PO BID 90 Days Qty: 180 1RF gabapentin 400 mg capsule 400 mg PO BID 90 Days Qty: 180 1RF pyridoxine (vitamin B6) 50 mg tablet 50 mg PO DAILY 90 Days Qty: 90 1RF cyanocobalamin (vitamin B-12) 1,000 mcg Tablet 1,000 mcg PO DAILY sucralfate 1 gram tablet 1 g PO BID acetaminophen [Mapap (acetaminophen)] 500 mg capsule 1,000 mg PO Q8H PRN (Reason: Pain) Clinisol SF 15 % 15 % parenteral solution 0.5 ea IV MOWEFR@0900 Rx Instructions: DIALYSIS MEDICATION Bariatric Multivitamins 45 mg iron- 800 mcg-120 mcg Capsule 1 cap PO DAILY fluticasone propionate 50 mcg/actuation spray,suspension 1 spray intranasal DAILY PRN (Reason: Allergy Symptoms) Rx Instructions: administer into each nostril ondansetron 4 mg tablet,disintegrating 4 mg PO Q8H PRN (Reason: nausea and vomiting) Qty: 10 0RF zinc acetate 50 mg (zinc) Capsule 100 mg PO DAILY oxycodone 5 mg tablet 5 mg PO Q6H PRN (Reason: pain (scale score 7-10)) Qty: 14 0RF Rx Instructions: Partial Fill upon patient request. omeprazole 40 mg capsule,delayed release(DR/EC) 40 mg PO BID@0630,1630 melatonin 3 mg Tablet 3 mg PO BEDTIME PRN (Reason: Sleep) meclizine 12.5 mg Tablet 12.5 mg PO TID PRN (Reason: Nausea And Vomiting) ergocalciferol (vitamin D2) [Vitamin D2] 1,250 mcg (50,000 unit) capsule 1,250 mcg PO PLEITEZ sevelamer carbonate 800 mg tablet 1,600 mg PO BIDWM@1200,1700 ferrous sulfate 325 mg (65 mg iron) tablet,delayed release (DR/EC) 325 mg PO DAILY midodrine 5 mg tablet 5 mg PO DAILY PRN (Reason: Hypotension) Discharge Orders: Discharge Order (Routine); Ordered 06/06/24 Ordered By: Lul Pagan Diet: Advance to usual diet Activity on Discharge: As tolerated Stand Alone Forms: Patient Portal Discharge page Print Language: Indonesian Care Plan Goals: Maintain stable hemoglobin levels and prevent recurrence of gastrointestinal bleeding symptoms through continued PPI therapy and appropriate surgical follow- up. Health Concerns: recurrent gi bleeding, gastritis, esophagitis Plan of Treatment: * Continue taking the prescribed omeprazole (open capsule and mix with apple sauce)I as directed. * Monitor for any signs of GI bleeding (such as black stools, vomiting blood, or feeling dizzy/lightheaded). * since no further vomiting episodes have occurred ? continue to eat as tolerated. * Follow up with your bariatric surgeon as scheduled. * Seek immediate medical attention if you experience new or worsening symptoms. * follow up with dialysis as usual Assessment: see above
--- NOTE | 2024-06-06 10:21 | MHC.CM.PN ---
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
[2024-06-06] MEDS: Sevelamer Carbonate Tablet 800 MG TABLET 1600 MG PO ×2 (12:20→18:18)
--- NOTE | 2024-06-06 13:54 | HO.PM.IMPN ---
Subjective Subjective Date of Service: 06/06/24 Interval History: f/u on gib, pt was doing well, was about to be discharged, starting having nausea and vomitted several time, no abdominal pain, a ct is requested Physical Exam Vital Signs: Vital Signs: Last Vital Signs Temp 98.7 F 06/06/24 12:00 Pulse 81 06/06/24 12:00 Resp 18 06/06/24 12:00 BP 99/71 06/06/24 12:00 Pulse Ox 100 06/06/24 12:00 O2 Del Method Room Air 06/06/24 12:00 O2 Flow Rate 96 06/04/24 14:02 BMI result Body Mass Index 22.1 Const: Other: General: AO X 3, no acute distress Resp: CTA bilateral CVS: S1,S2,RRR GI: +BS, NT, no distention Skin: No rash Neuro: motor grossly intact Psych: appropriate affect Objective Data Active Medications Acetaminophen (Acetaminophen 325 Mg Tablet) 650 mg PO Q6H PRN PRN Reason: Pain, Mild 1-3,fever,headache Calcium Carbonate (Calcium Carbonate 750 Mg Tab.Chew) 750 mg PO Q4H PRN PRN Reason: Heartburn Carvedilol (Carvedilol 3.125 Mg Tablet) 3.125 mg PO BID [facility]; Protocol Last Admin: 06/06/24 09:03 Dose: 3.125 mg Documented By: BISI Cyanocobalamin (Cyanocobalamin (Vitamin B-12) 1,000 Mcg Tablet) 1,000 mcg PO DAILY [facility] Last Admin: 06/06/24 09:02 Dose: 1,000 mcg Documented By: BISI Ergocalciferol (Ergocalciferol (Vitamin D2) 1,250 Mcg Capsule) 1,250 mcg PO [facility] Escitalopram Oxalate (Escitalopram Oxalate 10 Mg Tablet) 10 mg PO DAILY [facility] Last Admin: 06/06/24 09:02 Dose: 10 mg Documented By: BISI Ferrous Sulfate (Ferrous Sulfate 324 Mg Tablet.Dr) 324 mg PO DAILY [facility] Last Admin: 06/06/24 09:02 Dose: 324 mg Documented By: BISI Fluticasone Propionate (Fluticasone Propionate Nasal 16 Gm [place]) 1 spray NOSTRIL-B DAILY PRN PRN Reason: Allergy Symptoms Gabapentin (Gabapentin 400 Mg Capsule) 400 mg PO BID [facility] Last Admin: 06/06/24 09:02 Dose: 400 mg Documented By: BISI Magnesium Hydroxide (Milk Of Magnesia 30 Ml Oral.Susp) 30 ml PO DAILY PRN PRN Reason: Constipation Meclizine HCl (Meclizine Hcl 12.5 Mg Tablet) 12.5 mg PO TID PRN PRN Reason: Nausea And Vomiting Melatonin (Melatonin 3 Mg Tablet) 6 mg PO BEDTIME PRN PRN Reason: Insomnia Melatonin (Melatonin 3 Mg Tablet) 3 mg PO BEDTIME PRN PRN Reason: Sleep Midodrine (Midodrine Hcl 5 Mg Tablet) 5 mg PO DAILY PRN PRN Reason: Hypotension Last Admin: 06/05/24 23:46 Dose: 5 mg Documented By: BELEM Comments: given early per Morphine Sulfate (Morphine Sulfate 2 Mg/Ml Cartridge) 2 mg IVPUSH Q4H PRN; Protocol PRN Reason: Pain, Severe (Pain Scale 7-10) Last Admin: 06/05/24 16:32 Dose: 2 mg Documented By: BISI Omeprazole (Omeprazole 40 Mg Capsule.Dr) 40 mg PO BID@0630,1630 [facility] Last Admin: 06/06/24 06:08 Dose: 40 mg Documented By: BELEM Ondansetron HCl (Ondansetron Hcl 4 Mg/2 Ml Vial) 4 mg IVPUSH Q8H PRN PRN Reason: Nausea and Vomiting Last Admin: 06/06/24 06:08 Dose: 4 mg Documented By: BELEM Oxycodone HCl (Oxycodone Hcl Immed Release 5 Mg Tablet) 5 mg PO Q6H PRN PRN Reason: Pain, Moderate(Pain Scale 4-6) Last Admin: 06/05/24 20:47 Dose: 5 mg Documented By: BELEM Pyridoxine HCl (Pyridoxine Hcl (Vitamin B6) 50 Mg Tablet) 50 mg PO DAILY [facility] Last Admin: 06/06/24 09:02 Dose: 50 mg Documented By: BISI Sevelamer Carbonate (Sevelamer Carbonate Tablet 800 Mg Tablet) 1,600 mg PO BIDWM@1200,1700 [facility] Last Admin: 06/06/24 12:20 Dose: 1,600 mg Documented By: BISI Sodium Chloride (0.9 % Sodium Chloride Flush 3 Ml Syringe) 3 ml IVFLUSH QSHIFT [facility] Last Admin: 06/06/24 09:01 Dose: 3 ml Documented By: BISI Sucralfate (Sucralfate 1 Gm Tablet) 1 gm PO BID [facility] Last Admin: 06/06/24 09:02 Dose: 1 gm Documented By: BISI Thiamine HCl (Thiamine Hcl 100 Mg Tablet) 100 mg PO DAILY [facility] Last Admin: 06/06/24 09:03 Dose: 100 mg Documented By: BISI Labs 06/06/24 06:15 06/06/24 06:15 Labs: Laboratory Results - last 24 hr 06/06/24 06/06/24 00:24 06:15 MCV 92.6 95.3 MCH 31.1 31.6 MCHC 33.5 33.1 RDW 13.5 13.5 Plt Count 223 239 MPV 9.1 L 10.0 Immature Gran % (Auto) 0.3 Neut % (Auto) 59.9 Lymph % (Auto) 25.7 [place] % (Auto) 9.6 Eos % (Auto) 3.8 Baso % (Auto) 0.7 Lymph # (Auto) 1.9 [place] # (Auto) 0.7 Eos # (Auto) 0.3 Baso # (Auto) 0.1 Abs Immat Gran (auto) 0.02 Absolute Neuts (auto) 4.5 Absolute Nucleated RBC 0.000 0.000 Nucleated RBC % (auto) 0.0 0.0 Anion Gap 17 Estim Creat Clear Calc 13.1 Estimated GFR 10 Random Glucose 84 Calcium 9.4 Assessment and Plan (1) UGIB (upper gastrointestinal bleed): Status: Acute (2) Gastritis: Status: Acute (3) Esophagitis: Status: Acute Plan Pt is a 53-year-old female with a PMH significant for?ESRD on HD M/W/F, 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 Pt is admitted to the hospital for treatment and further evaluation of coffee ground emesis concerning for recurrent UGIB. Recurrent GI bleed, H/H has been stable but nausea and vomiting this morning. Pt with hematemesis, coffee-ground emesis, chest and abdominal pain Long hx of recurrent UGIB from gastric ulcers as complication from bariatric surgery performed at [facility] Multiple recent hospitalizations here for similar symptoms, last discharged on 05/21/2024 EGD found gastritis and congestion anastomotic ulcers without major active bleeding H&H stable at 12.5/38.2--> 12/10--drop likely from hemodilution, 12/10 appears to be her baseline IV Protonix b.i.d. Antiemetics, analgesics NPO and get a CT of abdomen ESRD on HD M/W/F Missed dialysis yesterday Nephrology consult, follows with [facility] Hypertensive urgency, resolved following IV hydralazine resume home meds HLD Continue statin Mood disorder Continue home meds Full Code DVT Prophylaxis: Pneumatic compression due to GI bleed Pt will require a hospitalization of at least two nights for treatment of?hematemesis and coffee-ground emesis concerning for recurrent upper GI bleed. Pt will require hospital level of care for administration of IV PPI, close monitoring of CBC, and specialist consultation with GI. Quality Stroke Does the patient have a stroke diagnosis?: No VTE Prior VTE?: No VTE Risk Level:: Medical - moderate - high VTE Device Contraindication: N/A - Device Ordered VTE Drug Contraindication: Treatment Not Indicated
[2024-06-06] MEDS: oxyCODONE HCl Immed Release 5 MG TABLET PO (14:58)
[2024-06-06] MEDS: Ondansetron ODT 4 MG TAB.RAPDIS TRANSLINGU (17:17)
[2024-06-06] MEDS: Ergocalciferol (Vitamin D2) 1,250 MCG CAPSULE 1250 MCG PO (18:38)
[2024-06-06] MEDS: Melatonin 3 MG TABLET 6 MG PO (19:55)
[2024-06-06] MEDS: Morphine Sulfate 2 MG/ML CARTRIDGE IVPUSH (19:56)
[2024-06-07] VITALS (10 sets, daily range): BP systolic 94–143; BP diastolic 51–71; PULSE 67–99; RESP 16–89; TEMP 36.6–36.9; O2SAT 97–100
[2024-06-07] MEDS: Morphine Sulfate 2 MG/ML CARTRIDGE IVPUSH ×2 (00:04→10:21)
[2024-06-07] MEDS: Midodrine HCl 5 MG TABLET PO (02:55)
[2024-06-07] MEDS: oxyCODONE HCl Immed Release 5 MG TABLET PO ×2 (05:31→14:14)
[2024-06-07] MEDS: Omeprazole 40 MG CAPSULE.DR PO (05:32)
[2024-06-07 07:10] LABS: Hematocrit 33.8 % (37.0-47.0); Mean Corpuscular HGB Conc 32.5 g/dl (31.0-35.0); Mean Corpuscular Hemoglobin 30.8 pg (27.0-33.0); Mean Corpuscular Volume 94.7 fL (80.0-98.0); Mean Platelet Volume 10.2 fL (9.4-12.3); Platelet Count 224 X10*3/uL (160-400); Red Blood Count 3.57 X10*6/uL (4.20-5.50); Red Cell Distribution Width 13.2 % (11.0-16.0); White Blood Count 4.9 X10*3/uL (4.8-10.8)
[2024-06-07 07:22] LABS: Anion Gap 18 (12-20); Blood Urea Nitrogen 32 mg/dL (9-16); Calcium 9.9 mg/dL (8.4-10.2); Carbon Dioxide 27 mmol/L (22-29); Chloride 94 mmol/L (96-108); Creatinine Clr Calc Pharmacy 8.7; Estimated Glomerular Filt Rate 6; Glucose Random 80 mg/dL (60-115); Potassium 5.2 mmol/L (3.3-5.1); Sodium 134 mmol/L (135-145)
--- NOTE | 2024-06-07 09:10 | P.CONGS_ITS ---
History of Present Illness Consult details Consult date: 06/07/24 Requesting physician: Lul Pagan Narrative: 53 yo female with history of ESRD on HD M/W/F, HTN, GERD, mesenteric stenosis, hx gastric sleeve in 2013 s/p revision w/ hx bleeding marginal ulcer at the anastomosis site who initially presented to the ED with complaints of chest pain and coffee-ground emesis. She has had multiple hospitalizations for similar symptoms, last discharged on 05/21/2024. EGD performed during stay found gastritis and congestion anastomotic ulcers without major active bleeding. She was admitted the hospitalist service for further treatment and evaluation of coffee ground emesis concerning for recurrent UGIB. Repeat diagnostic endoscopy was felt to be low yield given no further hematemesis her H/H remained stable H/H. She was continued on high dose PPI and carafate. She had improvement in her symptoms however developed recurrent nausea and had multiple episodes of vomiting. CT scan abd pelvis was therefore obtained which showed a thickened gallbladder wall. General surgery was consulted. She reports new RUQ abdominal pain that accompanied the recurrent vomiting. This felt different from her prior epigastric pain from her gastritis/ulcers. She however feels better this morning and denies any abd pain or further vomiting. 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 Lumbar back pain with radiculopathy affecting left lower extremity Physical exam (~02/14/21) Peritoneal dialysis catheter in place Polyarthralgia Dyslipidemia Family history of ovarian cancer Abnormal mammogram of right breast Angina pectoris syndrome Chest pain Constipation Nephrosclerosis Renal interstitial fibrosis Obesity (BMI 30-39.9) Back pain GERD (gastroesophageal reflux disease) History of headache HTN (hypertension) Family History Family History Father Asthma Mother Asthma Hypertension Ovarian cancer Maternal Grandfather Myocardial infarction Paternal Grandmother Stroke Surgical History Surgical History (Updated 06/05/24 @ 10:58 by Teena Murrell MD) History of sleeve gastrectomy S/P arteriovenous (AV) graft placement Fistula Hx of colonoscopy Hx of hysterectomy Hx of tubal ligation History of endometrial ablation Social History Social History Household Members: Children Household Members Other:: 30 year old special needs son Housing: Apartment Are you a primary care support representative to a significant other at home: No Do you presently have visiting nurse or other home services: Yes Alcohol intake: current Alcohol intake frequency: holidays/special occasions only Alcohol type: beer Comment: low fall risk Patient Tobacco Use Status: Former Tobacco user Tobacco use type: Cigarette Cigarette Packs Per Day: 1 Cigarettes Per Day: 20.0 Years Smoked: 10+ Smoked in Last 30 Days: Yes e-Cigarette/Vaping Use: Never Used Patient Interested in Nicotine Replacement: Yes Patient Given Instructions on How to Stop Smoking: Yes Date Education Initiated: 06/04/24 Second Hand Smoke Exposure: No Use of substances other than those prescribed or required for medical reasons: No Substance Use Type: Caffiene Currently Displaying Signs/Symptoms of Drug Intoxication Withdrawal: No Any prior treatment program specific to substance use: No Have you been hit, kicked, punched, or otherwise hurt by someone within the past year? If so, by whom?: No Do you feel safe in your current relationship?: No Current Relationship Is there a partner from a previous relationship who is making you feel unsafe now?: No Are you made to feel afraid or neglected: No Advance Directives: Yes Advance Directives on File: Yes Advance Directives Date on File: 04/27/20 Do you have a plan to hurt others: No Plan Recently lost weight without trying: No Eating poorly because of decreased appetite: No Nutrition Risks: No Nutritional Risk Patient : No : No Poor oral hygiene: No service: No Current occupational status: employed Cognitive needs: No Hearing needs: No Vision needs: Yes (reading glasses) Meds Allergies Allergy/AdvReac Type Severity Reaction Status Date / Time ibuprofen Allergy Severe Unknown Verified 06/04/24 09:58 nifedipine Allergy Intermediate hives, leg Verified 06/04/24 09:58 edema Active Medications: Current Medications Acetaminophen (Acetaminophen 325 Mg Tablet) 650 mg PO Q6H PRN PRN Reason: Pain, Mild 1-3,fever,headache Calcium Carbonate (Calcium Carbonate 750 Mg Tab.Chew) 750 mg PO Q4H PRN PRN Reason: Heartburn Carvedilol (Carvedilol 3.125 Mg Tablet) 3.125 mg PO BID [facility]; Protocol Last Admin: 06/06/24 19:55 Dose: 3.125 mg Cyanocobalamin (Cyanocobalamin (Vitamin B-12) 1,000 Mcg Tablet) 1,000 mcg PO DAILY [facility] Last Admin: 06/06/24 09:02 Dose: 1,000 mcg Ergocalciferol (Ergocalciferol (Vitamin D2) 1,250 Mcg Capsule) 1,250 mcg PO PLEITEZ [facility] Last Admin: 06/06/24 18:38 Dose: 1,250 mcg Escitalopram Oxalate (Escitalopram Oxalate 10 Mg Tablet) 10 mg PO DAILY [facility] Last Admin: 06/06/24 09:02 Dose: 10 mg Ferrous Sulfate (Ferrous Sulfate 324 Mg Tablet.) 324 mg PO DAILY [facility] Last Admin: 06/06/24 09:02 Dose: 324 mg Fluticasone Propionate (Fluticasone Propionate Nasal 16 Gm [place]) 1 spray NOSTRIL-B DAILY PRN PRN Reason: Allergy Symptoms Gabapentin (Gabapentin 400 Mg Capsule) 400 mg PO BID [facility] Last Admin: 06/06/24 19:55 Dose: 400 mg Magnesium Hydroxide (Milk Of Magnesia 30 Ml Oral.Susp) 30 ml PO DAILY PRN PRN Reason: Constipation Meclizine HCl (Meclizine Hcl 12.5 Mg Tablet) 12.5 mg PO TID PRN PRN Reason: Nausea And Vomiting Melatonin (Melatonin 3 Mg Tablet) 6 mg PO BEDTIME PRN PRN Reason: Insomnia Last Admin: 06/06/24 19:55 Dose: 6 mg Melatonin (Melatonin 3 Mg Tablet) 3 mg PO BEDTIME PRN PRN Reason: Sleep Midodrine (Midodrine Hcl 5 Mg Tablet) 5 mg PO DAILY PRN PRN Reason: Hypotension Last Admin: 06/07/24 02:55 Dose: 5 mg Morphine Sulfate (Morphine Sulfate 2 Mg/Ml Cartridge) 2 mg IVPUSH Q4H PRN; Protocol PRN Reason: Pain, Severe (Pain Scale 7-10) Last Admin: 06/07/24 00:04 Dose: 2 mg Omeprazole (Omeprazole 40 Mg Capsule.) 40 mg PO BID@0630,1630 [facility] Last Admin: 06/07/24 05:32 Dose: 40 mg Ondansetron HCl (Ondansetron Odt 4 Mg Tab.Rapdis) 4 mg TRANSLINGU Q8H PRN PRN Reason: Nausea and Vomiting Last Admin: 06/06/24 17:17 Dose: 4 mg Oxycodone HCl (Oxycodone Hcl Immed Release 5 Mg Tablet) 5 mg PO Q6H PRN PRN Reason: Pain, Moderate(Pain Scale 4-6) Last Admin: 06/07/24 05:31 Dose: 5 mg Pyridoxine HCl (Pyridoxine Hcl (Vitamin B6) 50 Mg Tablet) 50 mg PO DAILY [facility] Last Admin: 06/06/24 09:02 Dose: 50 mg Sevelamer Carbonate (Sevelamer Carbonate Tablet 800 Mg Tablet) 1,600 mg PO BIDWM@1200,1700 [facility] Last Admin: 06/06/24 18:18 Dose: 1,600 mg Sodium Chloride (0.9 % Sodium Chloride Flush 3 Ml Syringe) 3 ml IVFLUSH QSHIFT [facility] Last Admin: 06/06/24 19:55 Dose: 3 ml Sucralfate (Sucralfate 1 Gm Tablet) 1 gm PO BID [facility] Last Admin: 06/06/24 19:55 Dose: 1 gm Thiamine HCl (Thiamine Hcl 100 Mg Tablet) 100 mg PO DAILY [facility] Last Admin: 06/06/24 09:03 Dose: 100 mg Home Medications ?Medication ?Instructions ?Recorded ?Confirmed ?Last Taken ?Type ferrous sulfate 325 mg (65 mg 325 mg PO DAILY 05/11/20 06/04/24 06/03/24 History iron) tablet,delayed release cyanocobalamin (vitamin B-12) 1,000 mcg PO DAILY 10/17/20 06/04/24 06/03/24 History 1,000 mcg tablet midodrine 5 mg tablet 5 mg PO DAILY PRN Hypotension 03/25/23 06/04/24 05/18/24 History acetaminophen 500 mg capsule 1,000 mg PO Q8H PRN Pain 08/10/23 06/04/24 05/18/24 History (Mapap (acetaminophen)) fluticasone propionate 50 1 spray intranasal DAILY PRN 08/10/23 06/04/24 05/18/24 History mcg/actuation nasal Allergy Symptoms spray,suspension [id number] 45 mg-folic 1 cap PO DAILY 08/10/23 06/04/24 06/03/24 History acid 800 mcg-vit K 120 mcg capsule (Bariatric Multivitamins) parenteral amino acid 15% no.5 15 0.5 ea IV MOWEFR@0900 08/10/23 06/04/24 06/02/24 History % combination no.5 intravenous solution (Clinisol SF) sucralfate 1 gram tablet 1 g PO BID 08/10/23 06/04/24 06/03/24 History zinc acetate 50 mg (zinc) capsule 100 mg PO DAILY 05/19/24 06/04/24 06/03/24 History ergocalciferol (vitamin D2) 1,250 1,250 mcg PO PLEITEZ 06/04/24 06/04/24 05/23/24 History mcg (50,000 unit) capsule (Vitamin D2) meclizine 12.5 mg tablet 12.5 mg PO TID PRN Nausea And 06/04/24 06/04/24 06/04/24 History Vomiting melatonin 3 mg tablet 3 mg PO BEDTIME PRN Sleep 06/04/24 06/04/24 Unknown History omeprazole 40 mg capsule,delayed 40 mg PO BID@0630,1630 06/04/24 06/04/24 06/03/24 History release sevelamer carbonate 800 mg tablet 1,600 mg PO BIDWM@1200,1700 06/04/24 06/04/24 06/03/24 History Physical Exam 2 Vital Signs: Vital Signs: Last Vital Signs Temp 98.5 F 06/07/24 07:13 Pulse 80 06/07/24 07:13 Resp 16 06/07/24 07:13 BP 103/58 L 06/07/24 07:13 Pulse Ox 100 06/07/24 07:13 O2 Del Method Room Air 06/07/24 07:13 O2 Flow Rate 96 06/04/24 14:02 BMI result Body Mass Index 22.1 Results Labs 06/07/24 05:51 06/07/24 05:51 Labs: Abnormal lab results 06/07/24 Range/Units 05:51 RBC 3.57 L (4.20-5.50) X10*6/uL Hgb 11.0 L (12.0-16.0) g/dl Hct 33.8 L (37.0-47.0) % Sodium 134 L (135-145) mmol/L Potassium 5.2 H (3.3-5.1) mmol/L Chloride 94 L (96-108) mmol/L BUN 32 H (9-16) mg/dL Creatinine 6.77 H* (0.5-1.4) mg/dL Short CBC 06/07/24 Range/Units 05:51 WBC 4.9 (4.8-10.8) X10*3/uL Hgb 11.0 L (12.0-16.0) g/dl Hct 33.8 L (37.0-47.0) % Plt Count 224 (160-400) X10*3/uL BMP 06/07/24 05:51 Sodium 134 L Potassium 5.2 H Chloride 94 L Carbon Dioxide 27 BUN 32 H Creatinine 6.77 H* Calcium 9.9 All other labs normal. Imaging Abdomen CT scan report/results: report reviewed and image reviewed Assessment and Plan (1) History of sleeve gastrectomy: Status: Acute (2) ESRD (end stage renal disease): Status: Acute (3) UGIB (upper gastrointestinal bleed): Status: Acute Plan Episode of RUQ abd pain with imaging showing thickened gallbladder suggestive of acute cholecystitis. This is new compared to prior imaging on 05/11/24. No leukocytosis. She is mildly tender on exam however reports feeling overall better with resolution of that pain and no further vomiting. Recommend further work up with ABD US or HIDA scan. If this is suggestive of acute cholecystitis, we discussed pursuing nonoperative measures and initiating antibiotics only if she continues to feel improved and can tolerate a solid diet. Procedures Date of Service Date of Service: 06/07/24
[2024-06-07] MEDS: Cyanocobalamin (Vitamin B-12) 1,000 MCG TABLET 1000 MCG PO (09:12)
[2024-06-07] MEDS: carvediloL 3.125 MG TABLET PO (09:12)
[2024-06-07] MEDS: Thiamine HCL 100 MG TABLET PO (09:12)
[2024-06-07] MEDS: Ferrous Sulfate 324 MG TABLET.DR PO (09:12)
[2024-06-07] MEDS: Sucralfate 1 GM TABLET PO (09:13)
[2024-06-07] MEDS: Gabapentin 400 MG CAPSULE PO (09:13)
[2024-06-07] MEDS: Escitalopram Oxalate 10 MG TABLET PO (09:13)
[2024-06-07] MEDS: Pyridoxine HCl (Vitamin B6) 50 MG TABLET PO (09:13)
[2024-06-07] MEDS: 0.9 % Sodium Chloride Flush 3 ML SYRINGE IVFLUSH (09:16)
--- NOTE | 2024-06-07 10:21 | P.PNIM_ITS ---
Subjective Subjective Date of Service: 06/07/24 Interval History: No further nausea or vomitting, US doesn't suggest cholecystitis Physical Exam 2 Vital Signs: Vital Signs: Last Vital Signs Temp 98.5 F 06/07/24 07:13 Pulse 80 06/07/24 07:13 Resp 16 06/07/24 07:13 BP 130/69 06/07/24 10:18 Pulse Ox 100 06/07/24 07:13 O2 Del Method Room Air 06/07/24 07:13 O2 Flow Rate 96 06/04/24 14:02 BMI result Body Mass Index 22.1 Const: Other: General: AO X 3, no acute distress Resp: CTA bilateral CVS: S1,S2,RRR GI: +BS, NT, no distention Skin: No rash Neuro: motor grossly intact Psych: appropriate affect Objective Data Active Medications Acetaminophen (Acetaminophen 325 Mg Tablet) 650 mg PO Q6H PRN PRN Reason: Pain, Mild 1-3,fever,headache Calcium Carbonate (Calcium Carbonate 750 Mg Tab.Chew) 750 mg PO Q4H PRN PRN Reason: Heartburn Carvedilol (Carvedilol 3.125 Mg Tablet) 3.125 mg PO BID [facility]; Protocol Last Admin: 06/07/24 09:12 Dose: 3.125 mg Documented By: GLORIA Cyanocobalamin (Cyanocobalamin (Vitamin B-12) 1,000 Mcg Tablet) 1,000 mcg PO DAILY [facility] Last Admin: 06/07/24 09:12 Dose: 1,000 mcg Documented By: GLORIA Ergocalciferol (Ergocalciferol (Vitamin D2) 1,250 Mcg Capsule) 1,250 mcg PO PLEITEZ [facility] Last Admin: 06/06/24 18:38 Dose: 1,250 mcg Documented By: BISI Escitalopram Oxalate (Escitalopram Oxalate 10 Mg Tablet) 10 mg PO DAILY [facility] Last Admin: 06/07/24 09:13 Dose: 10 mg Documented By: GLORIA Ferrous Sulfate (Ferrous Sulfate 324 Mg Tablet.Dr) 324 mg PO DAILY [facility] Last Admin: 06/07/24 09:12 Dose: 324 mg Documented By: GLORIA Fluticasone Propionate (Fluticasone Propionate Nasal 16 Gm [place]) 1 spray NOSTRIL-B DAILY PRN PRN Reason: Allergy Symptoms Gabapentin (Gabapentin 400 Mg Capsule) 400 mg PO BID [facility] Last Admin: 06/07/24 09:13 Dose: 400 mg Documented By: GLORIA Magnesium Hydroxide (Milk Of Magnesia 30 Ml Oral.Susp) 30 ml PO DAILY PRN PRN Reason: Constipation Meclizine HCl (Meclizine Hcl 12.5 Mg Tablet) 12.5 mg PO TID PRN PRN Reason: Nausea And Vomiting Melatonin (Melatonin 3 Mg Tablet) 6 mg PO BEDTIME PRN PRN Reason: Insomnia Last Admin: 06/06/24 19:55 Dose: 6 mg Documented By: STEVEN Melatonin (Melatonin 3 Mg Tablet) 3 mg PO BEDTIME PRN PRN Reason: Sleep Midodrine (Midodrine Hcl 5 Mg Tablet) 5 mg PO DAILY PRN PRN Reason: Hypotension Last Admin: 06/07/24 02:55 Dose: 5 mg Documented By: STEVEN Morphine Sulfate (Morphine Sulfate 2 Mg/Ml Cartridge) 2 mg IVPUSH Q4H PRN; Protocol PRN Reason: Pain, Severe (Pain Scale 7-10) Last Admin: 06/07/24 00:04 Dose: 2 mg Documented By: STEVEN Omeprazole (Omeprazole 40 Mg Capsule.Dr) 40 mg PO BID@0630,1630 [facility] Last Admin: 06/07/24 05:32 Dose: 40 mg Documented By: STEVEN Ondansetron HCl (Ondansetron Odt 4 Mg Tab.Rapdis) 4 mg TRANSLINGU Q8H PRN PRN Reason: Nausea and Vomiting Last Admin: 06/06/24 17:17 Dose: 4 mg Documented By: BISI Oxycodone HCl (Oxycodone Hcl Immed Release 5 Mg Tablet) 5 mg PO Q6H PRN PRN Reason: Pain, Moderate(Pain Scale 4-6) Last Admin: 06/07/24 05:31 Dose: 5 mg Documented By: STEVEN Pyridoxine HCl (Pyridoxine Hcl (Vitamin B6) 50 Mg Tablet) 50 mg PO DAILY [facility] Last Admin: 06/07/24 09:13 Dose: 50 mg Documented By: GLORIA Sevelamer Carbonate (Sevelamer Carbonate Tablet 800 Mg Tablet) 1,600 mg PO BIDWM@1200,1700 [facility] Last Admin: 06/06/24 18:18 Dose: 1,600 mg Documented By: BISI Sodium Chloride (0.9 % Sodium Chloride Flush 3 Ml Syringe) 3 ml IVFLUSH QSHIFT [facility] Last Admin: 06/07/24 09:16 Dose: 3 ml Documented By: GLORIA Sucralfate (Sucralfate 1 Gm Tablet) 1 gm PO BID [facility] Last Admin: 06/07/24 09:13 Dose: 1 gm Documented By: GLORIA Thiamine HCl (Thiamine Hcl 100 Mg Tablet) 100 mg PO DAILY [facility] Last Admin: 06/07/24 09:12 Dose: 100 mg Documented By: GLORIA Labs 06/07/24 05:51 06/07/24 05:51 Labs: Laboratory Results - last 24 hr 06/07/24 05:51 MCV 94.7 MCH 30.8 MCHC 32.5 RDW 13.2 Plt Count 224 MPV 10.2 Absolute Nucleated RBC 0.000 Nucleated RBC % (auto) 0.0 Anion Gap 18 Estim Creat Clear Calc 8.7 Estimated GFR 6 Random Glucose 80 Calcium 9.9 Assessment and Plan (1) UGIB (upper gastrointestinal bleed): Status: Acute (2) Gastritis: Status: Acute (3) Esophagitis: Status: Acute Plan Pt is a 53-year-old female with a PMH significant for?ESRD on HD M/W/F, 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 Pt is admitted to the hospital for treatment and further evaluation of coffee ground emesis concerning for recurrent UGIB. Recurrent GI bleed, H/H has been stable but nausea and vomiting this morning. Pt with hematemesis, coffee-ground emesis, chest and abdominal pain Long hx of recurrent UGIB from gastric ulcers as complication from bariatric surgery performed at [facility] Multiple recent hospitalizations here for similar symptoms, last discharged on 05/21/2024 EGD found gastritis and congestion anastomotic ulcers without major active bleeding H&H stable at 12.5/38.2--> 12/10--drop likely from hemodilution, 12/10 appears to be her baseline IV Protonix b.i.d. Antiemetics, analgesics CT of abdomen yesterd showed some gallbladder wall thickening, US shows mild thickening, negative elva, WBC normal--no clinical evidence of acute cholecystitis advance diet and possible dc later today ESRD on HD M/W/F Missed dialysis yesterday Nephrology consult, follows with [facility] Hypertensive urgency, resolved following IV hydralazine resume home meds HLD Continue statin Mood disorder Continue home meds Full Code DVT Prophylaxis: Pneumatic compression due to GI bleed Pt will require a hospitalization of at least two nights for treatment of?hematemesis and coffee-ground emesis concerning for recurrent upper GI bleed. Pt will require hospital level of care for administration of IV PPI, close monitoring of CBC, and specialist consultation with GI. Quality Stroke Does the patient have a stroke diagnosis?: No VTE Prior VTE?: No VTE Risk Level:: Medical - moderate - high VTE Device Contraindication: N/A - Device Ordered VTE Drug Contraindication: Treatment Not Indicated
--- NOTE | 2024-06-07 12:35 | MHC.CM.PN ---
EMR REVIEWED, PT W/NV OVER W/E, ABD ULTRASOUND COMPLETED, DROP IN H&H OVER NOC, REMAINS ON HIGH DOSE PPI, NO PLAN FOR DC AT THIS TIME, CM WILL CONT TO FOLLOW DC NEEDS.
== END 2024-06-07 16:16 | disposition home health service (06) | DRG 377 ==
LOC: HO.ED 11:30 → HO.EDOVER 14:04 → HO.IMC 14:45
PROVIDERS: Hospitalist; Admitting Provider Student in an Organized Health Care Education/Training Program; Emergency Provider Emergency Medicine; PCP Internal Medicine; Visit Provider Internal Medicine
DX: K28.4 Chronic or unspecified gastrojejunal ulcer with hemorrhage (principal); N18.6 End stage renal disease; I12.0 Hypertensive chronic kidney disease with stage 5 chronic kidney disease or end stage renal disease; D62 Acute posthemorrhagic anemia; E78.5 Hyperlipidemia, unspecified; F39 Unspecified mood [affective] disorder; I16.0 Hypertensive urgency; Z99.2 Dependence on renal dialysis; Z98.84 Bariatric surgery status; Z87.891 Personal history of nicotine dependence; Z79.899 Other long term (current) drug therapy
CPT/HCPCS: 36415; 71045; 74176; 76705; 80048; 80076; 82271; 83690; 83735; 84484; 85025; 85027; 85610; 86850; 86900; 86901; 90999; 93005; 99285; J0360; J0737; J2270; J2405; J2470

== ENCOUNTER → 2024-06-04 09:49 | Outpatient (BNV) | payer MEDICARE, MEDICAID, SELFPAY | PROVIDERS: Admitting Provider Student in an Organized Health Care Education/Training Program; Emergency Provider Emergency Medicine; Visit Provider Internal Medicine | DX: R07.9 Chest pain, unspecified (principal) | CPT/HCPCS: 93010 ==

== ENCOUNTER → 2024-06-04 09:53 | Outpatient (BNV) | payer MEDICARE, MEDICAID, SELFPAY | PROVIDERS: Emergency Provider Emergency Medicine; Visit Provider Radiology Diagnostic Radiology | DX: R07.9 Chest pain, unspecified (principal) | CPT/HCPCS: 71045 ==

== ENCOUNTER 2024-06-04 13:30 | Outpatient (BNV) | payer MEDICARE, MEDICAID, SELFPAY | END 2024-06-07 09:25 | PROVIDERS: Admitting Provider Student in an Organized Health Care Education/Training Program; Emergency Provider Emergency Medicine; Visit Provider Radiology Diagnostic Radiology | DX: K92.0 Hematemesis (principal); Z98.84 Bariatric surgery status | CPT/HCPCS: 76705 ==

== ENCOUNTER 2024-06-04 13:30 | Outpatient (BNV) | payer MEDICARE, MEDICAID, SELFPAY | END 2024-06-06 14:34 | PROVIDERS: Admitting Provider Student in an Organized Health Care Education/Training Program; Emergency Provider Emergency Medicine; Visit Provider Nuclear Medicine | DX: R11.2 Nausea with vomiting, unspecified (principal) | CPT/HCPCS: 74176 ==

== ENCOUNTER → 2024-06-04 13:30 | Outpatient (BNV) | payer MEDICARE, MEDICAID, SELFPAY | PROVIDERS: Admitting Provider Student in an Organized Health Care Education/Training Program; Emergency Provider Emergency Medicine; Visit Provider Student in an Organized Health Care Education/Training Program | DX: K92.2 Gastrointestinal hemorrhage, unspecified (principal); K29.70 Gastritis, unspecified, without bleeding; K20.90 Esophagitis, unspecified without bleeding | CPT/HCPCS: 99223; 99232; 99239 ==

== ENCOUNTER → 2024-06-04 13:30 | Outpatient (BNV) | payer MEDICARE, MEDICAID, SELFPAY | PROVIDERS: Admitting Provider Student in an Organized Health Care Education/Training Program; Emergency Provider Emergency Medicine; Visit Provider Physician Assistant Surgical | DX: K92.2 Gastrointestinal hemorrhage, unspecified (principal); N18.6 End stage renal disease; Z90.3 Acquired absence of stomach [part of] | CPT/HCPCS: 99222 ==

== ENCOUNTER → 2024-06-04 13:30 | Outpatient (BNV) | payer MEDICARE, MEDICAID, SELFPAY | PROVIDERS: Admitting Provider Student in an Organized Health Care Education/Training Program; Emergency Provider Emergency Medicine; Visit Provider Internal Medicine | DX: K92.0 Hematemesis (principal); K92.2 Gastrointestinal hemorrhage, unspecified; D64.9 Anemia, unspecified; K28.9 Gastrojejunal ulcer, unspecified as acute or chronic, without hemorrhage or perforation; K29.70 Gastritis, unspecified, without bleeding; Z90.3 Acquired absence of stomach [part of]; N18.6 End stage renal disease | CPT/HCPCS: 99222 ==

== ENCOUNTER 2024-06-11 15:20 | Outpatient (AMB) | payer MEDICARE, MEDICAID, SELFPAY ==
--- OUTSIDE RECORDS SUMMARY | 2024-06-11 15:23 | XMS_ITS | Encounter Summary ---
Author Organization [facility] Address [address] [place] [address] Phone Care Team Providers Care Corrective Therapy Aide Name Role Phone Rozina Nicole MD Primary Care Provider [phone] Encounter Details Date Type Department Care Team (Late st Contact Info) Description 05/08/2020 Orders Only [facility] [address] [place] [address] Provider, MD Wendy [address] [place], [place] [id number] Social History Tobacco Use Types Packs/Day Years [...] on filedocumented in this encounter Care Teams Corrective Therapy Aide Relationship Specialty Start Date End Date Rozina Nicole MD [address] [place], [place] PCP - General 02/21/20 documented as of this encounter
--- OUTSIDE RECORDS SUMMARY | 2024-06-11 15:23 | XMS_ITS | Encounter Summary ---
Author Organization [facility] Address [address] [facility] [address] [place] [address] Phone Care Team Providers Care Lockstitch Waistband Setter Name Role Phone Rozina Nicole MD Primary Care Provider [phone] Encounter Details Date Type Department Care Team ([facility] st Contact Info) Description 05/15/2020 Orders Only [facility] [address] [place] [address] Jon Wang MD [address] [facility] [address] [place] [phone] Stage 5 chronic kidney disease (HCC) Social [...] (HCC) documented in this encounter Care Teams Lockstitch Waistband Setter Relationship Specialty Start Date End Date Rozina Nicole MD [address] [place] [address] [address] [place] PCP - General 02/21/20 documented as of this encounter
--- OUTSIDE RECORDS SUMMARY | 2024-06-11 15:23 | XMS_ITS | Encounter Summary ---
Author Organization [facility] Address [address] [facility] [address] [place] [address] Phone Care Team Providers Care Editorial Intern Name Role Phone Rozina Nicole MD Primary Care Provider [phone] Encounter Details Date Type Department Care Team (Late st Contact Info) Description 05/22/2020 Orders Only [facility] [address] [place] [address] Jon Wang MD [address] [facility] [address] [place] [phone] Stage 5 chronic kidney disease (HCC) Social [...] (HCC) documented in this encounter Care Teams Editorial Intern Relationship Specialty Start Date End Date Rozina Nicole MD [address] [place] [address] [place] PCP - General 02/21/20 documented as of this encounter
--- OUTSIDE RECORDS SUMMARY | 2024-06-11 15:23 | XMS_ITS | Clinical Summary ---
Author Organization [address] [facility] Address [address] [place] [address] Phone Care Team Providers Care Platen Builder Up Name Role Phone Sam Lynch MD Primary [...] 32.9 in adult 11/26/2023 Acute kidney failure ([facility] V24) 04/26/2021 Benign essential hypertension 04/26/2021 Dependence on renal dialysis (CMS/[facility] V24) 04/26 Disorder of kidney and ureter, unspecified 04/26 ESRD on hemodialysis (CMS/HCC V24, CMS/[facility] V28) 04/26/2021 Hypertensive heart and chron [...] REMOVAL OTHER SURGICAL HISTORY 06/13/2021 Left PROCEDURE: VT CRTJ ARVJASPER FSTL XCNeftali BARTH NONAUTOG GRF; [...] PM EDT Office Visit Bariatric Surgery - [place] [address] [facility] [address] [place] [phone] Grace Abarca PA [address] [facility] [address] [place] [address] Health Maintenance Due Date Last Done Comments [...] to complete this topic Insurance [place]ICA[place] - [place]ICARE Advance Directives Documents on File Type Date Recorded Patient Banana Ripening Room Supervisor Expl anation Health Care Decision (hx) 07/24/2023 [...] (hx) 12/16/2022 AD REED DIRECTIVE Care Teams Platen Builder Up Relationship Specialty Start Date End Date Sam Lynch MD [address] [place] [address] [address] [place] PCP - General 10/25/22
--- OUTSIDE RECORDS SUMMARY | 2024-06-11 15:24 | XMS_ITS | Encounter Summary ---
Author Organization [facility] Address [address] [facility] [address] [place] [address] Phone Care Team Providers Care Ophthalmic Pathologist Name Role Phone Rozina Nicole MD Primary Care Provider [phone] Reason for Visit * Reason Onset Date Comments Med Refill 11/23/2020 Encounter Details Date Type Department Care Team (Late st Contact Info) Description 11/23/2020 Refill [facility] [address] [facility] [address] [place] [phone] Nkechi Salvador, ALEX [facility] [address] [place] [address] Social History Tobacco Use Types [...] on filedocumented in this encounter Care Teams Ophthalmic Pathologist Relationship Specialty Start Date End Date Rozina Nicole MD [address] [place], [place] PCP - General 02/21/20 documented as of this encounter
--- OUTSIDE RECORDS SUMMARY | 2024-06-11 15:24 | XMS_ITS | Clinical Summary ---
Author Organization [facility] Address [address] [place] [address] [place] [address] Phone Care Team Providers Care Executive Vice President And Chief Financial Officer Name Role Phone Rozina Nicole MD Primary Care Provider [phone] Allergies Active Allergy Reactions Criticality Noted Date [...] ureter 05/02/2020 05/02/2020 [facility] 09/07/2020 Encounters Date Type Department Care Team Description 05/24/2024 Treatment [facility] [address] [phone] Jon Wang MD End stage renal disease; Dependence on renal dialysis 05/14/2024 Treatment [facility] [address] [phone] Jon Wang MD End stage renal disease; Dependence on renal dialysis 05/08/2024 Treatment [facility] [address] [phone] Jon Wang MD End stage renal disease; Dependence on renal dialysis 05/05/2024 Treatment [facility] [address] [phone] Jon Wang MD End stage renal disease; Dependence on renal dialysis 05/04/2024 Treatment [facility] [address] [phone] Kwesi Gonzalez MD End stage renal disease; Dependence on renal dialysis 04/14/2024 Treatment [facility] [address] [phone] Jon Wang MD End stage renal disease; Dependence on renal dialysis 04/09/2024 Treatment [facility] [address] [phone] Jon Wang MD End stage renal disease; Dependence on renal dialysis 04/02/2024 Treatment [facility] [address] [phone] Jon Wang MD 03/31/2024 Treatment [facility] [address] [phone] Jon Wang MD 03/22/2024 Orders Only [facility] [address] [phone] Jon Wang MD 03/22/2024 Treatment [facility] [address] [phone] Jon Wang MD from Last 3 Months [...] Procedure Name Priority Date/Time Associated Diagnosis Comments LIH (HC) Routine 06/07/2024 3:00 AM EDT KT/V NATURAL LOG, URR () Routine 06/07/2024 3:00 AM EDT KT/V NATURAL LOG, URR () Routine 06/02/2024 3:00 AM EDT PHOSPHATE ( PHOSPHORUS) Routine 06/02/2024 3:00 AM EDT LIH () Routine 06/02/2024 3:00 AM EDT HEMOGLOBIN AND [...] 3:00 AM EST BILIRUBIN, TOTAL Routine 04/14/2024 3:0 0 AM EST CREATININE, SERUM Routine 04/14/2024 3:0 [...] URR (HC) Routine 03/17/2024 3:00 AM EST from Last 3 Months Results * LIH (06/07/2024 3:00 AM EDT) Only the most recent of17 resultswithin the time period is included. Pathologist [facility] Lipemia Normal Normal [facility] Icterus Normal Normal [facility] Hemolysis Normal Normal [facility] 06/07/2024 3:00 AM EDT 06/08/2024 12:43 PM EDT us Jon Wang MD LAB [id number] SOLICITED RESULTS Final Result [facility] [address] [place] [address] * (ABNORMAL) Kt/V Natural Log, URR (06/07/2024 3:00 AM EDT) Only the most recent of17 resultswithin the time period is included. Treatment Time 180 min [facility] Pre-Weight, lb 62.2 kg [facility] Post-Weight, lb 59.5 kg [facility] Ultrafiltration Rate 15(H) <=13 mL/kg/hr [facility] Comment: Recommend achieving Ultrafiltration Rate (UFR) <=10 mL/kg/hr References: Terrell GARCIA et al. Kidney Int. 2010; 79(2):250-257 BUN 26(H) 7 - 25 mg/dL [facility] BUN Post Dialysis 5(L) 7 - 25 mg/dL [facility] UREA REDUCTION RATIO (%) 81 >=65 % [facility] Kt/V Natural Log 1.93 >=1.2 [facility] 06/07/2024 3:00 AM EDT 06/08/2024 12:43 PM EDT us Jon Wang MD LAB [id number] SOLICITED RESULTS Final Result Performing Organization Address City/[facility]/ZIP Co de Phone Number [facility] [address] [place] [address] * Phosphorus (06/02/2024 3:00 AM EDT) Only the most recent of3 resultswithin the time period is included. Phosphorus, Serum 4.4 2.5 - 5.0 mg/dL [facility] 06/02/2024 3:00 AM EDT 06/03/2024 12:30 PM EDT us Jon Wang MD LAB BLOOD ORDERABLES Final Re sult Performing Organization Address City/[facility]/ZIP Co de Phone Number [facility] [address] [place] [address] * Calcium, Adjusted w Albumin (05/31/2024 3:00 AM EDT) Only the most recent of2 resultswithin the time period is included. Calcium 9.1 8.6 - 10.3 mg/dL [facility] Albumin 3.9 3.6 - 5.4 g/dL [facility] Calcium, Adjusted Total 9.2 8.6 - 10.3 mg/dL [facility] 05/31/2024 3:00 AM EDT 06/01/2024 2:09 PM EDT Jon Wang MD LAB BLOOD ORDERABLES Final Re sult Performing Organization Address [facility] de Phone Number [facility] [address] [place] [address] * (ABNORMAL) Hemoglobin and hematocrit (05/31/2024 3:00 AM EDT) Only the most recent of3 resultswithin the time period is included. Hgb 10.4(L) 11.2 - 15.7 g/dL [facility] Hematocrit 32.4(L) 34.1 - 44.9 % [facility] Hemoglobin x 3 31.2(L) 33.6 - 47.1 g/dL [facility] 05/31/2024 3:00 AM EDT 06/01/2024 2:15 PM EDT Jon Wang MD LAB BLOOD ORDERABLES Final Re sult Performing Organization Address [facility] de Phone Number [facility] [address] [place] [address] * Collection Date (05/17/2024 3:00 AM EDT) Collection Date See Comment [facility] Comment: Patient sample received may exceed specimen stability, based on the collection date electronically provided. ??When reviewing patient results, verify collection information and consider specimen stability before acting on any critical or panic results. 05/17/2024 3:00 AM EDT Jon Wang MD LAB [id number] SOLICITED RESULTS Final Result Performing Organization Address [facility] de Phone Number [facility] [address] [place] [address] * (ABNORMAL) Calcium Phosphorus Product, Adjusted (05/14/2024 [...] 1:41 PM EDT Jon Wang MD LAB [id number] SOLICITED RESULTS Final Result Performing Organization Address [facility] de Phone Number [facility] [address] [place] [address] * Hepatitis B Surface Ag w/Reflex Confirmation (05/14/2024 3:00 AM EDT) Only the most recent of3 resultswithin the time period is included. Hep B Surface Antigen Negative Negative [facility] 05/14/2024 3:00 AM EDT 05/15/2024 1:41 PM EDT Jon Wang MD LAB BLOOD ORDERABLES Final Re sult Performing Organization Address [facility] de Phone Number [facility] [address] [place] [address] * (ABNORMAL) TSAT (05/14/2024 3:00 AM EDT) [...] ORDERABLES Final Re sult Performing Organization Address [facility] Co de Phone Number [facility] [address] [place] [address] * (ABNORMAL) CBC and Differential (05/14/2024 3:00 AM EDT) Only the most recent of3 resultswithin the time period is included. Pathologist [facility] DIFFERENTIAL MANUAL, 2 Not Indicated [facility] White [...] Final Re sult [facility] [address] [place] [address] * (ABNORMAL) ALT (05/14/2024 3:00 AM EDT) Only the most recent of3 resultswithin the time period is included. [facility] ALT (SGPT) 8(L) 10 - 49 U/L [facility] 05/14/2024 3:00 AM EDT 05/15/2024 1:41 PM EDT us Jon Wang MD LAB BLOOD ORDERABLES Final Re sult Performing Organization Address [facility] Co de Phone Number [facility] [address] [place] [address] * AST (05/14/2024 3:00 AM EDT) Only the most recent of3 resultswithin the time period is included. AST (SGOT) 12 <34 U/L [facility] 05/14/2024 3:00 AM EDT 05/15/2024 1:41 PM EDT us Jon Wang MD LAB BLOOD ORDERABLES Final Re sult Performing Organization Address [facility] de Phone Number [facility] [address] [place] [address] * (ABNORMAL) Protein, total (05/14/2024 3:00 AM EDT) Only the most recent of3 resultswithin the time period is included. Total Protein 5.9(L) 6.4 - 8.9 g/dL [facility] 05/14/2024 3:00 AM EDT 05/15/2024 1:41 PM EDT us Jon Wang MD LAB BLOOD ORDERABLES Final Re sult Performing Organization Address [facility] de Phone Number [facility] [address] [place] [address] * (ABNORMAL) Alkaline phosphatase (05/14/2024 3:00 AM EDT) Only the most recent of3 resultswithin the time period is included. Alkaline Phosphatase 129(H) 46 - 116 U/L [facility] 05/14/2024 3:00 AM EDT 05/15/2024 1:41 PM EDT us Jon Wang MD LAB BLOOD ORDERABLES Final Re sult Performing Organization Address [facility] Phone Number [facility] [address] [place] [address] * (ABNORMAL) PTH, Intact (05/14/2024 3:00 AM [...] ORDERABLES Final Re sult Performing Organization Address [facility] Phone Number [facility] [address] [place] [address] * Magnesium (05/14/2024 3:00 AM EDT) Only the most recent of3 resultswithin the time period is included. Magnesium 2.2 1.9 - 2.7 mg/dL [facility] 05/14/2024 3:00 AM EDT 05/15/2024 1:41 PM EDT us Jon Wang MD LAB BLOOD ORDERABLES Final Re sult Performing Organization Address [facility] Phone Number [facility] [address] [place] [address] * Lactate dehydrogenase (05/14/2024 3:00 AM EDT) Only the most recent of3 resultswithin the time period is included. LDH 150 120 - 246 U/L [facility] 05/14/2024 3:00 AM EDT 05/15/2024 1:41 PM EDT us Jon Wang MD LAB BLOOD ORDERABLES Final Re sult Performing Organization Address [facility] de Phone Number [facility] [address] [place] [address] * Hemoglobin A1c (05/14/2024 3:00 AM EDT) [...] ORDERABLES Final Re sult Performing Organization Address [facility] de Phone Number [facility] [address] [place] [address] * Glucose, random (05/14/2024 3:00 AM EDT) Only the most recent of3 resultswithin the time period is included. Glucose 98 74 - 109 mg/dL [facility] 05/14/2024 3:00 AM EDT 05/15/2024 1:41 PM EDT Jon Wang MD LAB BLOOD ORDERABLES Final Re sult Performing Organization Address [facility] de Phone Number [facility] [address] [place] [address] * (ABNORMAL) Ferritin (05/14/2024 3:00 AM EDT) Only the most recent of3 resultswithin the time period is included. Ferritin 657(H) 10 - 291 ng/mL [facility] 05/14/2024 3:00 AM EDT 05/15/2024 1:41 PM EDT Jon Wang MD LAB BLOOD ORDERABLES Final Re sult Performing Organization Address [facility] de Phone Number [facility] [address] [place] [address] * (ABNORMAL) Creatinine, serum (05/14/2024 3:00 AM EDT) Only the most recent of3 resultswithin the time period is included. Creatinine 7.11(H) 0.55 - 1.02 mg/dL [facility] 05/14/2024 3:00 AM EDT 05/15/2024 1:41 PM EDT Jon Wang MD LAB BLOOD ORDERABLES Final Re sult Performing Organization Address [facility] de Phone Number [facility] [address] [place] [address] * (ABNORMAL) Bilirubin, total (05/14/2024 3:00 AM EDT) Only the most recent of3 resultswithin the time period is included. Total Bilirubin <0.2(L) 0.3 - 1.2 mg/dL [facility] 05/14/2024 3:00 AM EDT 05/15/2024 1:41 PM EDT Jon Wang MD LAB BLOOD ORDERABLES Final Re sult Performing Organization Address [facility] de Phone Number [facility] [address] [place] [phone] * (ABNORMAL) Lipid panel (05/14/2024 3:00 AM [...] Final Re sult [facility] [address] [place] [address] * (ABNORMAL) Electrolyte panel (05/14/2024 3:00 AM [...] ORDERABLES Final Re sult Performing Organization Address [facility] de Phone Number [facility] [address] [place] [address] * (ABNORMAL) Hemoglobin (05/05/2024 3:00 AM EDT) Hgb 10.2(L) 11.2 - 15.7 g/dL [facility] Hemoglobin x 3 30.6(L) 33.6 - 47.1 g/dL [facility] 05/05/2024 3:00 AM EDT 05/06/2024 12:47 PM EDT Jon Wang MD LAB BLOOD ORDERABLES Final Re sult Performing Organization Address [facility] de Phone Number [facility] [address] [place] [address] * Potassium (04/09/2024 3:00 AM EST) Only the most recent of3 resultswithin the time period is included. Potassium 4.7 3.4 - 5.0 mEq/L [facility] 04/09/2024 3:00 AM EST 04/10/2024 1:32 PM EST Jon Wang MD LAB BLOOD ORDERABLES Final Re sult Performing Organization Address [facility] de Phone Number [facility] [address] [place] [address] * (ABNORMAL) Creatinine clearance, urine, 24 hour (03/31/2024 3:00 AM EST) Patient Height (FT) 150.0 cm [facility] Dry Weight Not Received kg [facility] Creatinine 6.34(H) 0.55 - 1.02 mg/dL [facility] 03/31/2024 3:00 AM EST 04/02/2024 12:56 PM EST Jon Wang MD LAB URINE ORDERABLES Final Re sult Performing Organization Address [facility]/ZIP Co de Phone Number [facility] [address] [place] [address] from Last 3 Months Insurance Medicare [place] Care Teams Executive Vice President And Chief Financial Officer Relationship Specialty Start Date End Date Rozina Nicole MD [address] [place], [place] PCP - General 02/21/20
--- NOTE | 2024-06-11 15:34 | MHC.PC.OV ---
Vital Signs 06/11/24 15:36 Height 5 ft 5 in Weight 134 lb 2 oz BMI 22.3 BP 120/60 Blood Pressure Location Rt brachial Position Sitting Pulse 84 Pulse Source Pulse Oximeter Temp 97.5 F Temp Source Temporal Artery Scan Pulse Oximetry (%) 99 Oxygen Delivery Method Room Air Intake Visit Reasons: [place] [facility] [place] bleed Intake Note: Patient is here for hospital discharge and TCM follow up. Patient was discharged [place] [facility] [place]. Corner Bead Operator Required: No Slab Tripper: Not Required per policy Accompanied by: Self / Same As Patient Allergies ibuprofen Allergy (Severe, Verified 06/11/24 15:35) Unknown nifedipine Allergy (Intermediate, Verified 06/11/24 15:35) hives, leg edema Tobacco use date assessed: 06/11/24 Dental Screening Dental Screen Date: 06/11/24 Did you have a dental visit in the last 12 months?: No Did you have a dental problem in the last 6 months where you did not have access to dental care?: No Was dental information given to patient?: No HPI TCM TCM Information Date of Discharge 06/07/24 Discharged From [facility] Interactive Contact Date (Reference documentation from this date) 06/10/24 HPI Comments History of Present Illness Details 53 y/o Female patient. 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 She was admitted at [facility] [place] - 06/07 for treatment and further evaluation of coffee ground emesis concerning for recurrent UGIB. She was treated with IV PPI and there was no significant drop in hemoglobin. Pt was previously admitted to the hospital on 05/19-05/21 for melena and acute blood loss anemia. Pt was transfused 2 units of PRBCs, treated with IV PPI and oral Carafate. Underwent EGD by Dr. Moody on 05/20 which found gastritis and congestion with anastomotic ulcers without major active bleeding. Previous imaging was concerning for possible mesenteric ischemia so pt also underwent abdominal U/S that showed no acute ischemia. Today reports no GI bleed, and has a follow up appointment with GI 07/01. Pt c/o insomnia, and asking for Melatonin. 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 Lumbar back pain with radiculopathy affecting left lower extremity Physical exam (~02/14/21) Peritoneal dialysis catheter in place Polyarthralgia Dyslipidemia Family history of ovarian cancer Abnormal mammogram of right breast Angina pectoris syndrome Chest pain Constipation Nephrosclerosis Renal interstitial fibrosis Obesity (BMI 30-39.9) Back pain GERD (gastroesophageal reflux disease) History of headache HTN (hypertension) Surgical History History of sleeve gastrectomy S/P arteriovenous (AV) graft placement Fistula Hx of colonoscopy Hx of hysterectomy Hx of tubal ligation History of endometrial ablation Family History Father Asthma Mother Asthma Hypertension Ovarian cancer Maternal Grandfather Myocardial infarction Paternal Grandmother Stroke Social History Household Members: Children Household Members Other:: 30 year old special needs son Housing: Apartment Are you a primary child care counselor to a significant other at home: No Do you presently have visiting nurse or other home services: Yes Alcohol intake: current Alcohol intake frequency: holidays/special occasions only Alcohol type: beer Comment: low fall risk Patient Tobacco Use Status: Former Tobacco user Tobacco use type: Cigarette Cigarette Packs Per Day: 1 Cigarettes Per Day: 20.0 Years Smoked: 10+ Packs Per Year: 0 Packs per year/per ci.00 e-Cigarette/Vaping Use: Never Used Second Hand Smoke Exposure: Yes Substance Use Type: Caffiene Advance Directives Date on File: 04/27/20 service: No Current occupational status: employed Cognitive needs: No Hearing needs: No Vision needs: Yes (reading glasses) Female Reproductive History Menstrual Age of Menarche: 10 Questionnaire PHQ-9 Over the last 2 weeks, how often have you been bothered by any of the following problems? 1. Little interest or pleasure in doing things: not at all 2. Feeling down, depressed, or hopeless: not at all 3. Trouble falling or staying asleep, or sleeping too much: not at all 4. Feeling tired or having little energy: not at all 5. Poor appetite or overeating: not at all 6. Feeling bad about yourself - or that you are a failure or have let yourself or your family down: not at all 7. Trouble concentrating on things, such as reading the newspaper or watching television: not at all 8. Moving or speaking so slowly that other people could have noticed. Or the opposite - being so fidgety or restless that you have been moving around a lot more than usual: not at all 9. Thoughts that you would be better off or of hurting yourself in some way: not at all Total score: 0 Depression Screening Interpretation: Negative Depression Screening Done: Yes Source: Developed by Drs. Brandan Schmitz, Tricia Asher, Carlos Blue and colleagues, with an educational lore from [employer]. Thrive Questionnaire Date Thrive assessed: 06/05/24 AUDIT C Alcohol Use Questionnaire (AUDIT-C) 1. How often do you have a drink containing alcohol?: Never Total Score: 0 JULIA-7 AMB Questionnaire JULIA-7 Date JULIA - 7 assessed: 06/11/24 Feeling nervous, anxious, or on edge: 0 = Not at all Not being able to stop or control worryin = Not at all Worrying too much about different things: 0 = Not at all Trouble relaxin = Not at all Being so restless that it is hard to sit still: 0 = Not at all Becoming easily annoyed or irritable: 0 = Not at all Feeling afraid as if something awful might happen: 0 = Not at all Total JULIA-7 score (0-4 normal; 5-9 mild; 10-14 moderate; 15-21 severe): 0 Source: Developed by Drs. Brandan Schmitz, Tricia Asher, Carlos Blue and colleagues, with an educational lore from [employer]. Review of Systems Const All systems reviewed & are unremarkable except as noted in HPI and below Physical exam (Primary Care) Vital Signs: Last Vital Signs Temp 97.5 F 06/11/24 15:36 Pulse 84 06/11/24 15:36 BP 120/60 06/11/24 15:36 Pulse Ox 99 06/11/24 15:36 Oxygen Delivery Method Room Air 06/11/24 15:36 BMI result Body Mass Index 22.3 Tobacco/Smoking Status: Tobacco use Status Tobacco use date assessed 06/11/24 06/11/24 15:40 Patient Tobacco Use Status Former Tobacco user 06/11/24 15:40 Tobacco use type Cigarette 06/11/24 15:40 e-Cigarette/Vaping Use Never Used 06/11/24 15:40 PHQ-9: PHQ-9 Score PHQ-9: Total score 0 06/11/24 16:12 Depression Screening Interpretation: Negative Thrive Assessment: Date of Thrive Assessment Date Thrive assessed 06/05/24 06/11/24 15:40 Const General: no acute distress Nutritional Appearance: thin Orientation/consciousness: patient oriented x3 Resp Effort & Inspection: normal respiratory effort Auscultation: clear to auscultation bilaterally Cardio Heart sounds: S1 normal heart sound present and S2 normal heart sound present GI Inspection: Yes obesity Palpation (GI): Soft to palpation Auscultation: normal bowel sounds Neuro General: patient oriented x3 Coding Level of Care Code TCM Mod MDM <= 7 Days Diagnoses UGIB (upper gastrointestinal bleed) K92.2 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 Managed by GI. Next Appointment 07/01 (2) Insomnia due to mental disorder: Code(s): F51.05 - Insomnia due to other mental disorder Plan: Ordered Melatonin 20 mg. Medications: New melatonin 20 mg (2 x 10 mg) PO BEDTIME 90 caps 0RF F51.05 - Insomnia due to other mental disorder
[2024-06-11 15:36] VITALS: BP 120/60; PULSE 84; TEMP 36.4; O2SAT 99; BMI 22.3
== END 2024-06-11 16:39 | disposition home or self-care (01) ==
LOC: HO.HMCH 15:21
PROVIDERS: Visit Provider Nurse Practitioner Family
DX: K92.2 Gastrointestinal hemorrhage, unspecified (principal); F51.05 Insomnia due to other mental disorder

== ENCOUNTER → 2024-06-11 15:20 | Outpatient (BNVA) | payer MEDICARE, MEDICAID, SELFPAY | PROVIDERS: Visit Provider Nurse Practitioner Family | DX: K92.2 Gastrointestinal hemorrhage, unspecified (principal); F51.01 Primary insomnia | CPT/HCPCS: 99212 ==

== ENCOUNTER → 2024-06-13 23:59 | Outpatient (BNV) | payer MEDICARE, MEDICAID, SELFPAY | PROVIDERS: PCP Internal Medicine; Visit Provider Internal Medicine | DX: I12.0 Hypertensive chronic kidney disease with stage 5 chronic kidney disease or end stage renal disease (principal); N18.6 End stage renal disease; E78.5 Hyperlipidemia, unspecified | CPT/HCPCS: G0180 ==

== ENCOUNTER → 2024-06-23 23:59 | Outpatient (BNV) | payer MEDICARE, MEDICAID, SELFPAY | PROVIDERS: PCP Internal Medicine; Visit Provider Internal Medicine | DX: I12.0 Hypertensive chronic kidney disease with stage 5 chronic kidney disease or end stage renal disease (principal); N18.6 End stage renal disease; K21.9 Gastro-esophageal reflux disease without esophagitis | CPT/HCPCS: G0180 ==

== ENCOUNTER 2024-06-24 09:13 | Outpatient (AMB) | payer MEDICARE, MEDICAID, SELFPAY ==
--- NOTE | 2024-06-24 09:14 | AM.OFFWIN_ITS ---
Intake Vital Signs 3 06/24/24 09:15 Weight 144 lb BP 140/90 H Blood Pressure Location Rt brachial Position Sitting Pulse 93 Pulse Source Pulse Oximeter Pulse Oximetry (%) 97 Oxygen Delivery Method Room Air Intake Visit Reasons: EP Rash under armpit, chest, very itchy Intake Note: Patient here for rash under armpits, chest that is very itchy and has been present for about 2 weeks. Patient Tobacco Use Status: Former Tobacco user Allergies ibuprofen Allergy (Severe, Verified 06/24/24 09:16) Unknown nifedipine Allergy (Intermediate, Verified 06/24/24 09:16) hives, leg edema Do you need a note to return to daycare/school/sports/work: No HPI HPI Comments 2 History of Present Illness0 Details History of Present Illness - The patient is a 53-year-old female pr esenting with a rash for 2 months characterized by intense itching. - She first noticed the rash about two m onths ago, with lumps forming beneath her armpits and eventually spreading to the neck and breasts. - The rash consisted of small, fluid-tomás led bumps, sometimes containing pus, more noticeable as individual boils. She said she would squeeze them, they would drain and dry up but now it's itchy. - Pain is minimal, with the rash being n otably itchy and anxiety-provoking. - no change in deodorant, detergents, lo tions, fabric softeners or other product use preceded the rash's onset. - Several topical agents, including hydr ocortisone, were applied with limited success in symptom relief. Physical Exam General: Cooperative, healthy appearing, comfortable, no acute distress and well developed Orientation: Patient oriented x3 Limitations: No limitations Head: Normal to inspection Ears: Hearing grossly normal bilaterally Nose: Normal External nose present Face and sinus: Normal facial exam Eyes: Appearance normal, both eyes and all related structures Neck: Normal visual inspection and Yes full ROM Respiratory: Normal respiratory effort and able to speak in complete sentences. Skin: bilateral axilla rash present, with small nodules, erythema, scarring, areas of similar rash on jugular notch and bilateral breasts; no drainage, no warmth. 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 Lumbar back pain with radiculopathy affecting left lower extremity Physical exam (~02/14/21) Peritoneal dialysis catheter in place Polyarthralgia Dyslipidemia Family history of ovarian cancer Abnormal mammogram of right breast Angina pectoris syndrome Chest pain Constipation Nephrosclerosis Renal interstitial fibrosis Obesity (BMI 30-39.9) Back pain GERD (gastroesophageal reflux disease) History of headache HTN (hypertension) Surgical History History of sleeve gastrectomy S/P arteriovenous (AV) graft placement Fistula Hx of colonoscopy Hx of hysterectomy Hx of tubal ligation History of endometrial ablation Family History Father Asthma Mother Asthma Hypertension Ovarian cancer Maternal Grandfather Myocardial infarction Paternal Grandmother Stroke Social History Household Members: Children Household Members Other:: 30 year old special needs son Housing: Apartment Are you a primary healthcare network pricing consultant to a significant other at home: No Do you presently have visiting nurse or other home services: Yes Alcohol intake: current Alcohol intake frequency: holidays/special occasions only Alcohol type: beer Comment: low fall risk Patient Tobacco Use Status: Former Tobacco user Tobacco use type: Cigarette Cigarette Packs Per Day: 1 Cigarettes Per Day: 20.0 Years Smoked: 10+ e-Cigarette/Vaping Use: Never Used Second Hand Smoke Exposure: Yes Substance Use Type: Caffiene Advance Directives Date on File: 04/27/20 service: No Current occupational status: employed Cognitive needs: No Hearing needs: No Vision needs: Yes (reading glasses) Female Reproductive History Menstrual Age of Menarche: 10 Physical Exam Vital Signs: Last Vital Signs Pulse 93 06/24/24 09:15 BP 140/90 H 06/24/24 09:15 Pulse Ox 97 06/24/24 09:15 Oxygen Delivery Method Room Air 06/24/24 09:15 Assessment & Plan Assessment & Plan (1) Hidradenitis suppurativa of multiple sites: Code(s): L73.2 - Hidradenitis suppurativa Plan: A diagnosis of Hydradenitis Suppurativa is considered due to the chronicity and specific nature of the patient's symptoms, involving pus-filled nodules. Treatment includes topical clindamycin ointment to reduce bacterial infection risk and manage itching. Unable to use hydroxyzene to due contraindicated based on her other meds. Documentation of the rash?s present state has been uploaded to facilitate any future consultations with dermatology, ensuring thorough monitoring of the condition. Sent message to her PCP to advise for follow up, depending on symptom progression or persistence. Patient was informed and verbally consented to the use of an ambient scribe for clinic note documentation during this visit. Medications: New 2 clindamycin phosphate 1% 1 appl topical BID 60 mL 0RF Coding Level of Care Code Est Pt Level 3 (52552) Diagnoses Hidradenitis suppurativa of multiple sites L73.2
[2024-06-24 09:15] VITALS: BP 140/90; PULSE 93; O2SAT 97
--- OUTSIDE RECORDS SUMMARY | 2024-06-24 09:46 | XMS_ITS | Clinical Summary ---
Author Organization [facility] Address [address] [place] [address] [place] [address] Phone Care Team Providers Care [facility] Associate Name Role Phone Rozina Nicole MD Primary Care Provider [phone] Allergies Active Allergy Reactions Criticality Noted Date [...] ureter 05/02/2020 05/02/2020 [facility] 09/07/2020 Encounters Date Type Department Care Team Description 05/24/2024 Treatment [facility] [address] [phone] Jon Wang MD End stage renal disease; Dependence on renal dialysis 05/14/2024 Treatment [facility] [address] [phone] Jon Wang MD End stage renal disease; Dependence on renal dialysis 05/08/2024 Treatment [facility] [address] [phone] Jon Wang MD End stage renal disease; Dependence on renal dialysis 05/05/2024 Treatment [facility] [address] [phone] Jon Wang MD End stage renal disease; Dependence on renal dialysis 05/04/2024 Treatment [facility] [address] [phone] Kwesi Gonzalez MD End stage renal disease; Dependence on renal dialysis 04/14/2024 Treatment [facility] [address] [phone] Jon Wang MD End stage renal disease; Dependence on renal dialysis 04/09/2024 Treatment [facility] [address] [phone] Jon Wang MD End stage renal disease; Dependence on renal dialysis 04/02/2024 Treatment [facility] [address] [phone] Jon Wang MD 03/31/2024 Treatment [facility] [address] [phone] Jon Wang MD from Last 3 Months [...] Name Priority Date/Time Associated Diagnosis Comments LIH () Routine 06/18/2024 3:00 AM EDT KT/V NATURAL LOG, URR () Routine 06/18/2024 3:00 AM EDT HEPATITIS B SURFACE ANTIGEN W/REFL CONFIRM Routine 06/16/2024 3:00 AM EDT PROTEIN, TOTAL, SERUM Routine 06/16/2024 3:00 AM EDT TRANSFERRIN SATURATION Routine 3:00 AM EDT LACTATE DEHYDROGENASE Routine 06/16/2024 3:00 AM EDT MAGNESIUM Routine 06/16/2024 3:00 AM EDT ELECTROLYTE PANEL Routine 06/16/2024 3:0 0 AM EDT LIH (HC) Routine 06/16/2024 3:00 AM EDT GLUCOSE, RANDOM Routine 06/16/2024 3:00 AM EDT BUN/CREATININE RATIO Routine 06/16/2024 3:00 AM EDT CREATININE, SERUM Routine 06/16/2024 3:0 0 AM EDT BILIRUBIN, TOTAL Routine 06/16/2024 3:00 AM EDT AST Routine 06/16/2024 3:00 AM EDT ALT Routine 06/16/2024 3:00 AM EDT ALKALINE PHOSPHATASE Routine 06/16/2024 3:00 AM EDT CALCIUM PHOSPHORUS PRODUCT, ADJUSTED (HC) Routine 06/16/2024 3:00 AM EDT PTH, INTACT Routine 06/16/2024 3:00 AM EDT CBC AND DIFFERENTIAL Routine 06/16/2024 3:00 AM EDT KT/V NATURAL LOG, URR (HC) Routine 06/16/2024 3:00 AM EDT LIH (HC) Routine 06/07/2024 3:00 AM EDT KT/V NATURAL LOG, URR (HC) Routine 06/07/2024 3:00 AM EDT KT/V NATURAL LOG, URR (HC) Routine 06/02/2024 3:00 AM EDT PHOSPHATE ( PHOSPHORUS) Routine 06/02/2024 3:00 AM EDT LIH (HC) Routine 06/02/2024 3:00 AM EDT HEMOGLOBIN AND HEMATOCRIT, BLOOD Routine 05/31/2024 3:00 AM EDT LIH (HC) Routine 05/31/2024 3:00 AM EDT CALCIUM, ADJUSTED W ALBUMIN Routine 05/31/2024 3:00 AM EDT KT/V NATURAL LOG, URR (HC) Routine 05/31/2024 3:00 AM EDT LIH (HC) Routine 05/24/2024 3:00 AM EDT KT/V NATURAL LOG, URR (HC) Routine 05/24/2024 3:00 AM EDT LIH () Routine 05/17/2024 3:00 AM EDT COLLECTION DATE (HC) Routine 05/17/2024 3:00 AM EDT KT/V NATURAL [...] HEMATOCRIT, BLOOD Routine 03/31/2024 3:00 AM EST from Last 3 Months Results * LIH (06/18/2024 3:00 AM EDT) Only the most recent of16 resultswithin the time period is included. Lipemia Normal Normal [facility] Icterus Normal Normal [facility] Hemolysis Normal Normal [facility] 06/18/2024 3:00 AM EDT 06/19/2024 3:15 PM EDT us Jon Wang MD LAB [id number] SOLICITED RESULTS Final Result Performing Organization Address [facility] de Phone Number [facility] [address] [place] [address] * (ABNORMAL) Kt/V Natural Log, URR (06/18/2024 3:00 AM EDT) Only the most recent of16 resultswithin the time period is included. Treatment Time 159 min [facility] Pre-Weight, lb 62.4 kg [facility] Post-Weight, lb 61.7 kg [facility] Ultrafiltration Rate 4 <=13 mL/kg/hr [facility] Comment: Recommend achieving Ultrafiltration Rate (UFR) <=10 mL/kg/hr References: Terrell GARCIA et al. Kidney Int. 2010; 79(2):250-257 BUN Post Dialysis 8 7 - 25 mg/dL [facility] BUN 20 7 - 25 mg/dL [facility] UREA REDUCTION RATIO (%) 60(L) >=65 % [facility] Kt/V Natural Log 1.00(L) >=1.2 [facility] 06/18/2024 3:00 AM EDT 06/19/2024 1:38 PM EDT us Jon Wang MD LAB [id number] SOLICITED RESULTS Final Result Performing Organization Address City/[facility]/ZIP Co de Phone Number [facility] [address] [place] [address] * Calcium Phosphorus Product, Adjusted (06/16/2024 3:00 AM EDT) Only the most recent of3 resultswithin the time period is included. Albumin 3.8 3.6 - 5.4 g/dL [facility] Calcium 8.8 8.6 - 10.3 mg/dL [facility] Phosphorus, Serum 3.9 2.5 - 5.0 mg/dL [facility] Ca*PO4 34.3 <55.0 mg2/dL2 [facility] Calcium, Adjusted Total 9.0 8.6 - 10.3 mg/dL [facility] CA*PO4 CORRCTD 35.1 <55.0 mg2/dL2 [facility] 06/16/2024 3:00 AM EDT 06/17/2024 1:31 PM EDT Jon Wang MD LAB [id number] SOLICITED RESULTS Final Result [facility] [address] [place] [address] * Hepatitis B Surface Ag w/Reflex Confirmation (06/16/2024 3:00 AM EDT) Only the most recent of3 resultswithin the time period is included. Pathologist [facility] Hep B Surface Antigen Negative Negative [facility] 06/16/2024 3:00 AM EDT 06/17/2024 1:31 PM EDT Jon Wang MD LAB BLOOD ORDERABLES Final Re sult [facility] [address] [place] [address] * BUN/CREATININE RATIO (06/16/2024 3:00 AM EDT) Pathologist [facility] BUN/Creatinine Ratio 4.2 <=23.0 [facility] 06/16/2024 3:00 AM EDT 06/17/2024 1:31 PM EDT Jon Wang MD LAB [id number] SOLICITED RESULTS Final Result Performing Organization Address [facility] de Phone Number [facility] [address] [place] [address] * (ABNORMAL) TSAT (06/16/2024 3:00 AM EDT) Only the most recent of3 resultswithin the time period is included. [facility] Iron 72 50 - 170 ug/dL [facility] Transferrin 129(L) 250 - 380 mg/dL [facility] TIBC 181(L) 211 - 406 ug/dL [facility] Iron Saturation (TSat) 40 22 - 52 % [facility] 06/16/2024 3:00 AM EDT 06/17/2024 1:31 PM EDT Jon Wang MD LAB BLOOD ORDERABLES Final Re sult Performing Organization Address [facility] de Phone Number [facility] [address] [place] [address] * (ABNORMAL) CBC and Differential (06/16/2024 3:00 AM EDT) Only the most recent of3 resultswithin the time period is included. [facility] DIFFERENTIAL MANUAL, 2 Not Indicated [facility] White Blood Cells 5.4 4.0 - 10.0 K/uL [facility] RBC 3.47(L) 3.93 - 5.22 M/uL [facility] Hgb 10.6(L) 11.2 - 15.7 g/dL [facility] Hemoglobin x 3 31.8(L) 33.6 - 47.1 g/dL [facility] Hematocrit 32.3(L) 34.1 - 44.9 % [facility] MCV 93.1 79.4 - 94.8 fL [facility] MCH 30.5 25.6 - 32.2 pg [facility] MCHC 32.8 32.2 - 35.5 g/dL [facility] Platelets 270 182 - 369 K/uL [facility] RDW 12.6 11.7 - 14.4 % [facility] Neutrophils Relative 50.3 34.0 - 71.1 % [facility] Lymphocytes Relative 36.1 19.3 - 51.7 % [facility] Monocytes 7.8 4.7 - 12.5 % [facility] Eosinophils Relative 4.1 0.7 - 5.8 % [facility] Basophils Relative 1.3(H) 0.1 - 1.2 % [facility] Immature Granulocytes 0.4 0.0 - 1.0 % [facility] 06/16/2024 3:00 AM EDT 06/17/2024 1:13 PM EDT Jon Wang MD LAB BLOOD ORDERABLES Final Re sult Performing Organization Address [facility] Co de Phone Number [facility] [address] [place] [address] * ALT (06/16/2024 3:00 AM EDT) Only the most recent of3 resultswithin the time period is included. ALT (SGPT) 11 10 - 49 U/L [facility] 06/16/2024 3:00 AM EDT 06/17/2024 1:31 PM EDT Jon Wang MD LAB BLOOD ORDERABLES Final Re sult Performing Organization Address [facility] de Phone Number [facility] [address] [place] [address] * AST (06/16/2024 3:00 AM EDT) Only the most recent of3 resultswithin the time period is included. AST (SGOT) 26 <34 U/L [facility] 06/16/2024 3:00 AM EDT 06/17/2024 1:31 PM EDT Jon Wang MD LAB BLOOD ORDERABLES Final Re sult Performing Organization Address [facility] de Phone Number [facility] [address] [place] [address] * (ABNORMAL) Protein, total (06/16/2024 3:00 AM EDT) Only the most recent of3 resultswithin the time period is included. Total Protein 6.2(L) 6.4 - 8.9 g/dL [facility] 06/16/2024 3:00 AM EDT 06/17/2024 1:31 PM EDT Jon Wang MD LAB BLOOD ORDERABLES Final Re sult Performing Organization Address [facility] Co de Phone Number [facility] [address] [place] [address] * (ABNORMAL) Alkaline phosphatase (06/16/2024 3:00 AM EDT) Only the most recent of3 resultswithin the time period is included. Alkaline Phosphatase 149(H) 46 - 116 U/L [facility] 06/16/2024 3:00 AM EDT 06/17/2024 1:31 PM EDT Jon Wang MD LAB BLOOD ORDERABLES Final Re sult Performing Organization Address [facility] de Phone Number [facility] [address] [place] [address] * (ABNORMAL) PTH, Intact (06/16/2024 3:00 AM EDT) Only the most recent of3 resultswithin the time period is included. PTH, Intact 726(H) 160 - 721 pg/mL [facility] Comment: Suggested (KDIGO) ESRD maintenance range is two to nine times the upper normal limit (80.1 pg/mL) for the laboratory. 06/16/2024 3:00 AM EDT 06/17/2024 1:31 PM EDT Jon Wang MD LAB BLOOD ORDERABLES Final Re sult Performing Organization Address [facility] de Phone Number [facility] [address] [place] [address] * Magnesium (06/16/2024 3:00 AM EDT) Only the most recent of3 resultswithin the time period is included. Magnesium 2.1 1.9 - 2.7 mg/dL [facility] 06/16/2024 3:00 AM EDT 06/17/2024 1:31 PM EDT Jon Wang MD LAB BLOOD ORDERABLES Final Re sult Performing Organization Address [facility] de Phone Number [facility] [address] [place] [address] * Lactate dehydrogenase (06/16/2024 3:00 AM EDT) Only the most recent of3 resultswithin the time period is included. LDH 210 120 - 246 U/L [facility] 06/16/2024 3:00 AM EDT 06/17/2024 1:31 PM EDT Jon Wang MD LAB BLOOD ORDERABLES Final Re sult Performing Organization Address [facility] de Phone Number [facility] [address] [place] [address] * Glucose, random (06/16/2024 3:00 AM EDT) Only the most recent of3 resultswithin the time period is included. Glucose 94 70 - 99 mg/dL [facility] Comment: ADA guidelines outline the following fasting glucose ranges: Normal: ? <100 Prediabetes: 100-125 Diabetes: ? >125 06/16/2024 3:00 AM EDT 06/17/2024 1:31 PM EDT Jon Wang MD LAB BLOOD ORDERABLES Final Re sult Performing Organization Address [facility] de Phone Number [facility] [address] [place] [address] * (ABNORMAL) Creatinine, serum (06/16/2024 3:00 AM EDT) Only the most recent of3 resultswithin the time period is included. Creatinine 5.18(H) 0.55 - 1.02 mg/dL [facility] 06/16/2024 3:00 AM EDT 06/17/2024 1:31 PM EDT Jon Wang MD LAB BLOOD ORDERABLES Final Re sult Performing Organization Address [facility] de Phone Number [facility] [address] [place] [address] * (ABNORMAL) Bilirubin, total (06/16/2024 3:00 AM EDT) Only the most recent of3 resultswithin the time period is included. Total Bilirubin <0.2(L) 0.3 - 1.2 mg/dL [facility] 06/16/2024 3:00 AM EDT 06/17/2024 1:31 PM EDT Jon Wang MD LAB BLOOD ORDERABLES Final Re sult Performing Organization Address [facility] Phone Number [facility] [address] [place] [address] * (ABNORMAL) Electrolyte panel (06/16/2024 3:00 AM EDT) Only the most recent of3 resultswithin the time period is included. Sodium 132(L) 136 - 145 mEq/L [facility] Potassium 4.6 3.4 - 5.0 mEq/L [facility] Chloride 98 98 - 107 mEq/L [facility] Bicarbonate (CO2) 25 21 - 31 mEq/L [facility] Anion Gap 9 3 - 14 mEq/L [facility] 06/16/2024 3:00 AM EDT 06/17/2024 1:31 PM EDT Jon Wang MD LAB BLOOD ORDERABLES Final Re sult Performing Organization Address [facility] de Phone Number [facility] [address] [place] [address] * Phosphorus (06/02/2024 3:00 AM EDT) Only the most recent of2 resultswithin the time period is included. Phosphorus, Serum 4.4 2.5 - 5.0 mg/dL [facility] 06/02/2024 3:00 AM EDT 06/03/2024 12:30 PM EDT Jon Wang MD LAB BLOOD ORDERABLES Final Re sult Performing Organization Address [facility] de Phone Number [facility] [address] [place] [address] * Calcium, Adjusted w Albumin (05/31/2024 3:00 AM EDT) Only the most recent of2 resultswithin the time period is included. Calcium 9.1 8.6 - 10.3 mg/dL [facility] Albumin 3.9 3.6 - 5.4 g/dL [facility] Calcium, Adjusted Total 9.2 8.6 - 10.3 mg/dL [facility] 05/31/2024 3:00 AM EDT 06/01/2024 2:09 PM EDT Jon Wang MD LAB BLOOD ORDERABLES Final Re sult Performing Organization Address [facility] de Phone Number [facility] [address] [place] [address] * (ABNORMAL) Hemoglobin and hematocrit (05/31/2024 3:00 [...] Re sult Performing Organization Address [facility] Co de Phone Number [facility] [address] [place] [address] * Collection Date (05/17/2024 3:00 AM EDT) Collection Date See Comment [facility] Comment: Patient sample received may exceed specimen stability, based on the collection date electronically provided. ??When reviewing patient results, verify collection information and consider specimen stability before acting on any critical or panic results. 05/17/2024 3:00 AM EDT Jon Wang MD LAB [id number] SOLICITED RESULTS Final Result Performing Organization Address [facility] Co de Phone Number [facility] [address] [place] [address] * Hemoglobin A1c (05/14/2024 3:00 AM EDT) [...] ORDERABLES Final Re sult Performing Organization Address City/[facility]/ZIP Co de Phone Number [facility] [address] [place] [address] * (ABNORMAL) Ferritin (05/14/2024 3:00 AM EDT) Only the most recent of2 resultswithin the time period is included. Ferritin 657(H) 10 - 291 ng/mL [facility] 05/14/2024 3:00 AM EDT 05/15/2024 1:41 PM EDT us Jon Wang MD LAB BLOOD ORDERABLES Final Re sult Performing Organization Address [facility] de Phone Number [facility] [address] [place] [address] * (ABNORMAL) Lipid panel (05/14/2024 3:00 AM [...] Re sult Performing Organization Address [facility] de Phone Number [facility] [address] [place] [address] * (ABNORMAL) Hemoglobin (05/05/2024 3:00 AM EDT) Hgb 10.2(L) 11.2 - 15.7 g/dL [facility] Hemoglobin x 3 30.6(L) 33.6 - 47.1 g/dL [facility] 05/05/2024 3:00 AM EDT 05/06/2024 12:47 PM EDT Jon Wang MD LAB BLOOD ORDERABLES Final Re sult Performing Organization Address [facility] Co de Phone Number [facility] [address] [place] [address] * Potassium (04/09/2024 3:00 AM EST) Only the most recent of2 resultswithin the time period is included. Potassium 4.7 3.4 - 5.0 mEq/L [facility] 04/09/2024 3:00 AM EST 04/10/2024 1:32 PM EST Jon Wang MD LAB BLOOD ORDERABLES Final Re sult Performing Organization Address [facility] de Phone Number [facility] [address] [place] [address] * (ABNORMAL) Creatinine clearance, urine, 24 hour (03/31/2024 3:00 AM EST) Patient Height (FT) 150.0 cm [facility] Dry Weight Not Received kg [facility] Creatinine 6.34(H) 0.55 - 1.02 mg/dL [facility] 03/31/2024 3:00 AM EST 04/02/2024 12:56 PM EST Jon Wang MD LAB URINE ORDERABLES Final Re sult Performing Organization Address [facility] Co de Phone Number [facility] [address] [place] [address] from Last 3 Months Insurance Medicare [place] Care Teams Health Center Associate Relationship Specialty Start Date End Date Rozina Nicole MD [address] [place], [place] PCP - General 02/21/20
--- OUTSIDE RECORDS SUMMARY | 2024-06-24 09:46 | XMS_ITS | Encounter Summary ---
Author Organization [facility] Address [address] [facility] [address] [place] [address] Phone Care Team Providers Care Medication Manager Name Role Phone Rozina Nicole MD Primary Care Provider Reason for Visit * Reason Onset Date Comments Med Refill 11/23/2020 Encounter Details Date Type Department Care Team (Late st Contact Info) Description 11/23/2020 Refill [facility] [address] [facility] [address] [place] [phone] Nkechi Salvador, ALEX [address] [facility] [address] [place] [address] Social History Tobacco Use Types [...] on filedocumented in this encounter Care Teams Medication Manager Relationship Specialty Start Date End Date Rozina Nicole MD [address] [place], [place] PCP - General 02/21/20 documented as of this encounter
--- OUTSIDE RECORDS SUMMARY | 2024-06-24 09:46 | XMS_ITS | Encounter Summary ---
Author Organization [facility] Address [address] [facility] [address] [place] [address] Phone Care Team Providers Care Human Resources Trainer Name Role Phone Rozina Nicole MD Primary Care Provider [phone] Encounter Details Date Type Department Care Team (Late st Contact Info) Description 05/22/2020 Orders Only [facility] [address] [place] [address] Jon Wang MD [address] [facility] [address] [place] [phone] Stage 5 chronic kidney disease (HCC) Social [...] (HCC) documented in this encounter Care Teams Human Resources Trainer Relationship Specialty Start Date End Date Rozina Nicole MD [address] [place] [address] [address] [place] PCP - General 02/21/20 documented as of this encounter
--- OUTSIDE RECORDS SUMMARY | 2024-06-24 09:46 | XMS_ITS | Encounter Summary ---
Author Organization [facility] Address 100 [facility] [address] [place] [address] Phone Care Team Providers Care Cupola Liner Name Role Phone Rozina Nicole MD Primary Care Provider [phone] Encounter Details Date Type Department Care Team ([facility] st Contact Info) Description 05/15/2020 Orders Only [facility] [address] [place] [address] Jon Wang MD [address] [facility] [address] [place] [phone] Stage 5 chronic kidney disease (HCC) Social [...] (HCC) documented in this encounter Care Teams Cupola Liner Relationship Specialty Start Date End Date Rozina Nicole MD [address] [place] [address] [address] [place] PCP - General 02/21/20 documented as of this encounter
--- OUTSIDE RECORDS SUMMARY | 2024-06-24 09:46 | XMS_ITS | Clinical Summary ---
Author Organization [address] [facility] Address [address] [place] [address] Phone Care Team Providers Care Hearing And Speech Assistant Name Role Phone Sam Lynch MD Primary Care Provider [phone] Allergies Active Allergy Reactions Criticality Noted Date [...] packet Take 17 g by mouth. 02/08/20 Active potassium chloride 20 mEq tablet extended [...] capsules (600 mg total) by mouth. 02/08/20 Active vitamin A 2,400 mcg capsule Active [...] powder Take 4 g by mouth. 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 11/26/2023 Acute kidney failure ([facility] V24) 04/26/2021 Benign essential hypertension 04/26/2021 Dependence on renal dialysis ([facility] V24) 04/26 Disorder of kidney and ureter, unspecified 04/26 ESRD on hemodialysis ([facility] V24, [facility] V28) 04/26/2021 Hypertensive heart and chron ic kidney disease with heart failure and stage 1 through stage 4 chronic kidney disease, or unspecified chronic kidney disease (CMS/HCC V24, [facility] V28) 04/26/2021 Vitamin D deficiency 04/26/2021 Encounters Date Type Department Care Team Description 06/14/2024 Telephone Bariatric Surgery - [address] [address] Gerson Rosen MD from Last 3 Months Surgical History Surgery Date Site/Laterality Comments OTHER SURGICAL HISTORY PROCEDURE: DIALYSIS ACCESS SYSTEM LAPAROSCOPIC GASTRIC BANDING PROCEDURE: LAP ADJUSTABLE GASTRIC BAND HYSTERECTOMY PROCEDURE: HISTORICAL HYSTERECTOMY OTHER SURGICAL HISTORY PROCEDURE: COLONOSCOPY LESION REMOVAL OTHER SURGICAL HISTORY 06/13/2021 Left PROCEDURE: ID CRTJ ARVEN FSTL XCP DIR ARVEN ANAST [...] Care Team (Late st Contact Info) Description 07/15/2024 2:00 PM EDT Office Visit Bariatric Surgery - [place] [address] [facility] [address] [place] [phone] Gerson Rosen MD [address] [facility] [address] [place] [address] 09/01/2024 3:15 PM EDT Office Visit Bariatric Surgery - [place] [address] [facility] [address] [place] [phone] Grace Abarca PA 175 [facility] [address] [place] [address] Health Maintenance Due Date Last Done Comments [...] Documents on File Type Date Recorded 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
--- OUTSIDE RECORDS SUMMARY | 2024-06-24 09:46 | XMS_ITS | Encounter Summary ---
Author Organization [facility] Address [address] [place] [address] Phone Care Team Providers Care Dinkey Operator Slag Name Role Phone Rozina Nicole MD Primary Care Provider [phone] Encounter Details Date Type Department Care Team (Late st Contact Info) Description 05/08/2020 Orders Only [facility] [address] [place] [address] Provider, MD Wendy [address] [place], [place] [id number] Social History Tobacco Use Types Packs/Day Years [...] on filedocumented in this encounter Care Teams Dinkey Operator Slag Relationship Specialty Start Date End Date Rozina Nicole MD [address] [place], [place] PCP - General 02/21/20 documented as of this encounter
== END 2024-06-24 09:48 | disposition home or self-care (01) ==
PROVIDERS: PCP Internal Medicine; Visit Provider Physician Assistant
DX: L73.2 Hidradenitis suppurativa (principal)

== ENCOUNTER → 2024-06-24 09:13 | Outpatient (BNVA) | payer MEDICARE, MEDICAID, SELFPAY | PROVIDERS: PCP Internal Medicine; Visit Provider Physician Assistant | DX: L73.2 Hidradenitis suppurativa (principal) | CPT/HCPCS: 99212 ==

== ENCOUNTER 2024-07-14 05:44 | Emergency (ER) | payer MEDICARE, MEDICAID, SELFPAY ==
[2024-07-14] VITALS (9 sets, daily range): BP systolic 166–219; BP diastolic 86–112; PULSE 86–96; RESP 11–16; TEMP 36.4–36.8; O2SAT 94–100; BMI 22.0
--- NOTE | ~2024-07-14 | CT_ITS ---
EXAMINATION: CT ABDOMEN PELVIS WITHOUT IV CONTRAST HISTORY: epigastric pain, upper gi bleed, hx ulcers COMPARISON: Comparison is made with the prior examination dated 06/06/2024. TECHNIQUE: CT scan of the abdomen and pelvis was performed without contrast using standard departmental protocol. Coronal and sagittal reformatted images were generated and reviewed. Oral contrast material was not administered at the request of the referring physician. This CT exam was performed with one or more of the following dose reduction techniques: automated exposure control, adjustment of the mA and/or kV according to patient size, use of iterative reconstruction technique. DLP: 358 mGy-cm FINDINGS: LOWER CHEST: There is linear scarring at the left lung base. The visualized right lung base is clear. There is no pleural effusion. CARDIOVASCULATURE: The heart is normal in size. There is no pericardial effusion. LIVER: The liver is normal in size and contour. The liver has an unremarkable unenhanced appearance. GALLBLADDER / BILE DUCTS: The gallbladder is distended, without evidence of calcified stones. There is no intra or extrahepatic biliary ductal dilatation. SPLEEN: The spleen is normal in size and has an unremarkable unenhanced appearance. PANCREAS: The pancreas has an unremarkable unenhanced appearance. ADRENAL GLANDS: Unremarkable. KIDNEYS/RETROPERITONEUM: There are punctate nonobstructing bilateral renal calculi. There is mild prominence of the renal collecting systems. No ureteral calculi are identified. LYMPH NODES: No retroperitoneal lymphadenopathy is identified in the abdomen or pelvis. VASCULATURE: The abdominal aorta demonstrates atherosclerotic calcification, but is normal in caliber. MESENTERY/PERITONEUM: There is diffuse infiltration of the mesenteric fat which is a nonspecific finding, but new from the prior study. No free fluid. No masses. There is no free intraperitoneal gas. STOMACH: The patient is status post gastric bypass procedure. The gastric remnant is collapsed, which may explain is thick-walled appearance. SMALL BOWEL: The small bowel is not well evaluated without intravenous or oral contrast material.. COLON: There is a moderate amount of stool throughout the colon. APPENDIX: Normal. URINARY BLADDER/PELVIC ORGANS: The urinary bladder is unremarkable. The patient is status post hysterectomy. BONES / SOFT TISSUES: Again seen is grade I spondylolisthesis of L4 on L5. CT/CT abdomen pelvis wo IV con IMPRESSION: 1. Diffuse infiltration of the mesenteric fat which is a nonspecific finding, but new from the prior study. This may indicate a diffuse inflammatory process. Evaluation is limited without intravenous or oral contrast material. 2. Bilateral punctate nonobstructing renal calculi. Prominence of the renal collecting systems which is new from the prior study. No obstructing ureteral calculi are identified. Electronically signed by: Brandan Wei MD 07/14/2024 08:21 AM EDT
[2024-07-14 06:20] LABS: MANUAL DIFF FLAG NO
--- NOTE | 2024-07-14 06:23 | ED.NAVMDI ---
HPI - Nausea/Vomiting/Diarrhea General Chief complaint: Nausea/Vomiting/Diarrhea Stated complaint: ABD PAIN Time Seen by Provider: 07/14/24 06:12 Source: patient and EMS Mode of arrival: EMS Limitations: no limitations History of Present Illness ED Provider: Dr. Gris Aguirre HPI Narrative: Patient comes to the emergency room complaining of severe abdominal pain. Patient states that she has been seen multiple times for abdominal pain. According to the patient, she started vomiting blood today. Patient states that she had a gastric bypass done about a year ago in [facility]. Patient states that she has been diagnosed with gastric/esophageal ulcers. Patient denies taking any NSAIDs. Patient states that today she is supposed to go to dialysis. Related Data Home Medications ?Medication ?Instructions ?Recorded ?Confirmed ferrous sulfate 325 mg (65 mg 325 mg PO DAILY 05/11/20 06/10/24 iron) tablet,delayed release cyanocobalamin (vitamin B-12) 1,000 mcg PO DAILY 10/17/20 06/10/24 1,000 mcg tablet midodrine 5 mg tablet 5 mg PO DAILY PRN Hypotension 03/25/23 06/10/24 acetaminophen 500 mg capsule 1,000 mg PO Q8H PRN Pain 08/10/23 06/10/24 (Mapap (acetaminophen)) fluticasone propionate 50 1 spray intranasal DAILY PRN 08/10/23 06/10/24 mcg/actuation nasal Allergy Symptoms spray,suspension [id number] 45 mg-folic 1 cap PO DAILY 08/10/23 06/10/24 acid 800 mcg-vit K 120 mcg capsule (Bariatric Multivitamins) parenteral amino acid 15% no.5 15 0.5 ea IV MOWEFR@0900 08/10/23 06/10/24 % combination no.5 intravenous solution (Clinisol SF) sucralfate 1 gram tablet 1 g PO BID 08/10/23 06/10/24 zinc acetate 50 mg (zinc) capsule 100 mg PO DAILY 05/19/24 06/10/24 ergocalciferol (vitamin D2) 1,250 1,250 mcg PO PLEITEZ 06/04/24 06/10/24 mcg (50,000 unit) capsule (Vitamin D2) meclizine 12.5 mg tablet 12.5 mg PO TID PRN Nausea And 06/04/24 06/10/24 Vomiting omeprazole 40 mg capsule,delayed 40 mg PO BID@0630,1630 06/04/24 06/10/24 release sevelamer carbonate 800 mg tablet 1,600 mg PO BIDWM@1200,1700 06/04/24 06/10/24 Previous Rx's ?Medication ?Instructions ?Recorded thiamine HCl (vitamin B1) 100 mg 100 mg PO DAILY 90 days #90 tabs 09/27/23 tablet vitamin A 2,400 mcg capsule 2,400 mcg PO DAILY 90 days #90 caps 02/05/24 citalopram 20 mg tablet 20 mg PO DAILY 90 days #90 tabs 03/18/24 carvedilol 6.25 mg tablet 6.25 mg PO BID 90 days #180 tabs 04/28/24 gabapentin 400 mg capsule 400 mg PO BID 90 days #180 caps 04/28/24 pyridoxine (vitamin B6) 50 mg 50 mg PO DAILY 90 days #90 tabs 04/28/24 tablet ondansetron 4 mg disintegrating 4 mg PO Q8H PRN nausea and 05/11/24 tablet vomiting #10 tabs melatonin 10 mg capsule 20 mg (2 x 10 mg) PO BEDTIME #90 06/11/24 caps clindamycin phosphate 1 % lotion 1 appl topical BID #60 mL 06/24/24 Allergies Allergy/AdvReac Type Severity Reaction Status Date / Time ibuprofen Allergy Severe Unknown Verified 07/14/24 05:57 nifedipine Allergy Intermediate hives, leg Verified 07/14/24 05:57 edema Review of Systems Review of Systems: Constitutional : No Weight loss, No Fever, No Chills, No Night Sweats, No Fatigue, No Malaise ENT/Mouth : No Hearing loss, No Ear Pain, No Nasal Congestion, No Sinus Pain, No Hoarseness, No sore throat, No Rhinorrhea, No Swallowing Difficulty Eyes: No Eye Pain, No Swelling, No Redness, No Foreign Body, No Discharge, No Vision Changes Cardiovascular : No Chest Pain, No SOB, No Dyspnea on Exertion, No Orthopnea, No Edema, No Palpitations Respiratory : No Cough, No Sputum, No Wheezing, No Smoke Exposure, No Dyspnea Gastrointestinal : Complaining of nausea and vomiting blood, complaining of epigastric pain. Burning sensation. One episode of diarrhea Genitourinary : no irregular bleeding, No Dysuria, No Urinary Frequency, No Hematuria, No Urinary Incontinence, No Urgency, No Flank Pain, No Urinary Flow Changes, No Hesitancy Musculoskeletal : No joint pain, No Myalgias, No Joint Swelling Skin : No Skin Lesions, No rash Neuro : No Weakness, No Numbness, No Paresthesias, No Loss of Consciousness, No Dizziness, No Headache Psych : No Anxiety/Panic, No Depression, No SI/HI/AH/VH, No Social Issues, Heme/Lymph: No Bruising, No Bleeding,No Lymphadenopathy Endocrine : No Polyuria, No Polydipsia, No Temperature Intolerance [facility] Past Medical History Medical History Marginal ulcer ESRD (end stage renal disease) ESRD on dialysis Smoker End stage chronic kidney disease Moderate major depression Physical exam Spondylosis without myelopathy or radiculopathy, lumbar region Spinal stenosis 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 Lumbar back pain with radiculopathy affecting left lower extremity Physical exam (~02/14/21) Peritoneal dialysis catheter in place Polyarthralgia Dyslipidemia Family history of ovarian cancer Abnormal mammogram of right breast Angina pectoris syndrome Chest pain Constipation Nephrosclerosis Renal interstitial fibrosis Obesity (BMI 30-39.9) Back pain GERD (gastroesophageal reflux disease) History of headache HTN (hypertension) Surgical History History of sleeve gastrectomy S/P arteriovenous (AV) graft placement Fistula Hx of colonoscopy Hx of hysterectomy Hx of tubal ligation History of endometrial ablation Family History Family History Father Asthma Mother Asthma Hypertension Ovarian cancer Maternal Grandfather Myocardial infarction Paternal Grandmother Stroke Social History Social History Household Members: Children Household Members Other:: 30 year old special needs son Housing: Apartment Are you a primary medical care administrator to a significant other at home: No Do you presently have visiting nurse or other home services: Yes Alcohol intake: never Comment: low fall risk Patient Tobacco Use Status: Former Tobacco user Tobacco use type: Cigarette Cigarette Packs Per Day: 1 Cigarettes Per Day: 20.0 Years Smoked: 10+ Smoked in Last 30 Days: No e-Cigarette/Vaping Use: Never Used Second Hand Smoke Exposure: Yes Use of substances other than those prescribed or required for medical reasons: No Substance Use Type: Caffiene Advance Directives: Yes Advance Directives on File: Yes Advance Directives Date on File: 04/27/20 Patient : No service: No Current occupational status: employed Cognitive needs: No Hearing needs: No Vision needs: Yes (reading glasses) Physical Exam Vital Signs: Vital Signs: Last Vital Signs Temp 98.0 F 07/14/24 07:19 Pulse 90 07/14/24 07:47 Resp 16 07/14/24 07:19 BP 197/105 H 07/14/24 07:47 Pulse Ox 95 07/14/24 07:19 O2 Del Method Room Air 07/14/24 07:19 BMI result Body Mass Index 22.0 Const: Other: Appearance: Alert. Oriented X3. Patient looks very uncomfortable Eyes: Pupils equal, round and reactive to light. ENT: Pharynx normal. Neck: Normal inspection. Neck supple. No lymph nodes noted. No crepitus CVS: Normal heart rate and rhythm. Pulses normal. Normal S1 and S2 Respiratory: No respiratory distress. Breath sounds normal. No Wheezing. No rales Abdomen: Soft and nontender. No rigidity. No distention. Skin: Skin warm , pale, clammy, Normal skin turgor. Extremities: No lower extremity edema. No Lacerations. No Rash Neuro: Oriented X 3. No motor deficit. No sensory deficit. Moving all extremities. No slurred speech. CN 2 through 12 grossly intact Psych: calm, cooperative, normal affect Course Course Course Narrative: Patient comes to the emergency room complaining of severe abdominal pain that started at midnight. Patient states that she frequently has these episodes of abdominal pain and upper GI bleed. Patient had an upper endoscopy done couple of years ago. All of patient's labs and imaging pending Patient receiving IV fluids (lactated Ringer's), morphine sulfate IV, pantoprazole, Compazine, Zofran. Medications Administered Discontinued Medications Generic Name Dose Route Start Last Admin Trade Name Freq PRN Reason Stop Dose Admin Hydralazine HCl 10 mg 07/14/24 07:18 07/14/24 07:24 Hydralazine Hcl 20 Mg/Ml Vial IVPUSH 07/14/24 07:19 10 mg ONCE ONE Administration Protocol Lactated Ringer's 1,000 mls @ 999 mls/hr 07/14/24 06:45 07/14/24 07:07 Lr IV 07/14/24 07:45 999 mls/hr .Q1H1M GERARDO Administration Morphine Sulfate 4 mg 07/14/24 06:20 07/14/24 06:35 Morphine Sulfate 4 Mg/Ml Cartridge IVPUSH 07/14/24 06:21 4 mg ONCE ONE Administration Protocol Ondansetron HCl 4 mg 07/14/24 05:59 07/14/24 07:02 Ondansetron Odt 4 Mg Tab.Rapdis SUBLINGUAL 07/14/24 06:00 Not Given ONCE ONE Ondansetron HCl 4 mg 07/14/24 06:20 07/14/24 06:35 Ondansetron Hcl 4 Mg/2 Ml Vial IVPUSH 07/14/24 06:21 4 mg ONCE ONE Administration Pantoprazole Sodium 80 mg 07/14/24 06:20 07/14/24 06:35 Pantoprazole Sodium 40 Mg/10 Ml Vial IVPUSH 07/14/24 06:21 80 mg ONCE ONE Administration Prochlorperazine Edisylate 10 mg 07/14/24 06:37 07/14/24 07:07 Prochlorperazine Edisylate 10 Mg/2 Ml Vial IVPUSH 07/14/24 06:38 10 mg ONCE ONE Administration Medical Decision Making Medical Decision Making MDM Narrative: I reviewed patient's previous Gastroenterology notes. Less than 2 months ago, patient had an upper endoscopy which showed so much with congested mucosa and diffuse erythema. There is an ulcer at the anastomosis of the gastric bypass, on the anterior side there is a punched out hollow ulcer was oozing, 1 clip was applied. Patient states that she got her gastric bypass done at [facility] about a year ago, pt seen by Dr. Rosen. My interpretation of labs: No significant abnormality in patient's hematology, hemoglobin 13.5, hematocrit 39.9. Chemistries at baseline, BUN 23, creatinine 6.51 which is patient's baseline and she is due for dialysis today. LFTs fairly normal other than a slight bump in alkaline phosphatase which is chronic for the patient. Patient is gastric occult blood is heme positive. Patient already received IV fluids (lactated Ringer's), morphine sulfate IV, pantoprazole, Compazine, Zofran I was informed by the patient's nurse that the patient's blood pressure is well above 200, patient was given a dose of IV hydralazine 10 mg. Patient is due for dialysis today. CT scan of the abdomen pending. 08:30I, Dr. Cuenca have take over the care of this patient, I reviewed pertinent blood work and imaging, re-evaluated the patient when appropriate. I am reassured by her current physical examination, her abdominal exam is benign, her blood pressure has come down, her H&H is stable, I am aware that she has had positive occult test of the gastric emesis, I do not utilize these in my clinical practice as these are extremely sensitive and profoundly nonspecific for an actual upper GI bleed, she has had no melena and H&H are stable. And she has had this in test positive in the past. Patient re-evaluated, she feels much better, she states that she is ready to be discharged and try to make sure she gets to her dialysis, she did not take her carvedilol dose in the morning, she is still slightly hypotensive but this is of little clinical utility at this time. Admission/Observation Consideration of admission/observation: Escalation of care including admission/observation considered Lab Data MDM Lab Attestation statement: I reviewed the patient's lab results. 07/14/24 06:15 07/14/24 06:15 Labs: Lab Results 07/14/24 07/14/24 07/14/24 Range/Units 06:15 06:43 06:47 WBC 9.5 (4.8-10.8) X10*3/uL RBC 4.36 D (4.20-5.50) X10*6/uL Hgb 13.5 D (12.0-16.0) g/dl Hct 39.9 (37.0-47.0) % MCV 91.5 (80.0-98.0) fL MCH 31.0 (27.0-33.0) pg MCHC 33.8 (31.0-35.0) g/dl RDW 13.8 (11.0-16.0) % Plt Count 274 (160-400) X10*3/uL MPV 9.6 (9.4-12.3) fL Immature Gran % (Auto) 0.2 (0.0-0.4) % Neut % (Auto) 69.0 (45-73) % Lymph % (Auto) 20.1 (20-40) % [place] % (Auto) 6.9 (2-11) % Eos % (Auto) 3.3 (0-4) % Baso % (Auto) 0.5 (0-2) % Lymph # (Auto) 1.9 (1.2-4.9) X10*3/uL [place] # (Auto) 0.7 (0.1-1.2) X10*3/uL Eos # (Auto) 0.3 (0.0-0.4) X10*3/uL Baso # (Auto) 0.1 (0.0-0.2) X10*3/uL Abs Immat Gran (auto) 0.02 (0.00-0.03) X10*3/uL Absolute Neuts (auto) 6.5 (2.0-8.3) x10*3/uL Absolute Nucleated RBC 0.000 (0.0-0.012) X10*3/uL Nucleated RBC % (auto) 0.0 (0.0-0.2) /100WBC APTT 33.4 (26.0-36.8) SEC Sodium 140 (135-145) mmol/L Potassium 4.0 D (3.3-5.1) mmol/L Chloride 103 (96-108) mmol/L Carbon Dioxide 25 (22-29) mmol/L Anion Gap 16 (12-20) BUN 23 H (9-16) mg/dL Creatinine 6.51 H* (0.5-1.4) mg/dL Estim Creat Clear Calc 9.1 Estimated GFR 7 Random Glucose 124 H (60-115) mg/dL Calcium 9.8 (8.4-10.2) mg/dL Iron 63 (30-160) mcg/dL TIBC 184 L (228-428) mcg/dL % Saturation 34 (15-50) % Unsat Iron Binding 121 ug/dL Ferritin 1608 H (10-250) ng/mL Total Bilirubin 0.3 (0.0-1.0) mg/dL Direct Bilirubin 0.1 (0.0-0.5) mg/dL AST 18 (5-31) U/L ALT 10 (0-31) U/L Alkaline Phosphatase 234 H (39-117) U/L Total Protein 7.1 (6.5-8.0) g/dL Albumin 4.1 (3.5-5.0) g/dL Gastric Occult Blood POSITIVE H (NEG) Blood Type O Positive Antibody Screen NEGATIVE Radiology Impression Radiologist Impression: 1. Diffuse infiltration of the mesenteric fat which is a nonspecific finding, but new from the prior study. This may indicate a diffuse inflammatory process. Evaluation is limited without intravenous or oral contrast material. 2. Bilateral punctate nonobstructing renal calculi. Prominence of the renal collecting systems which is new from the prior study. No obstructing ureteral calculi are identified Discharge Plan Discharge Clinical Impression: HTN (hypertension), Nausea & vomiting, Abdominal pain, diffuse, Anemia in ESRD (end-stage renal disease) Patient Disposition: Home, Self-Care Additional Instructions: Please make sure to get to the dialysis, follow up with your GI providers, you were giving carvedilol for blood pressure, your blood pressure will come down further with dialysis, your blood work is reassuring, your CAT scan with some nonspecific findings without actual issues that would explain your symptoms. Of course if you have any other issues or concerns come back to the ER otherwise follow up with the PCP. Prescriptions: No Action thiamine HCl (vitamin B1) 100 mg tablet 100 mg PO DAILY 90 Days Qty: 90 0RF vitamin A 2,400 mcg capsule 2,400 mcg PO DAILY 90 Days Qty: 90 1RF citalopram 20 mg tablet 20 mg PO DAILY 90 Days Qty: 90 1RF carvedilol 6.25 mg tablet 6.25 mg PO BID 90 Days Qty: 180 1RF gabapentin 400 mg capsule 400 mg PO BID 90 Days Qty: 180 1RF pyridoxine (vitamin B6) 50 mg tablet 50 mg PO DAILY 90 Days Qty: 90 1RF cyanocobalamin (vitamin B-12) 1,000 mcg Tablet 1,000 mcg PO DAILY sucralfate 1 gram tablet 1 g PO BID acetaminophen [Mapap (acetaminophen)] 500 mg capsule 1,000 mg PO Q8H PRN (Reason: Pain) Clinisol SF 15 % 15 % parenteral solution 0.5 ea IV MOWEFR@0900 Rx Instructions: DIALYSIS MEDICATION Bariatric Multivitamins 45 mg iron- 800 mcg-120 mcg Capsule 1 cap PO DAILY fluticasone propionate 50 mcg/actuation spray,suspension 1 spray intranasal DAILY PRN (Reason: Allergy Symptoms) Rx Instructions: administer into each nostril ondansetron 4 mg tablet,disintegrating 4 mg PO Q8H PRN (Reason: nausea and vomiting) Qty: 10 0RF zinc acetate 50 mg (zinc) Capsule 100 mg PO DAILY omeprazole 40 mg capsule,delayed release(DR/EC) 40 mg PO BID@0630,1630 meclizine 12.5 mg Tablet 12.5 mg PO TID PRN (Reason: Nausea And Vomiting) ergocalciferol (vitamin D2) [Vitamin D2] 1,250 mcg (50,000 unit) capsule 1,250 mcg PO PLEITEZ sevelamer carbonate 800 mg tablet 1,600 mg PO BIDWM@1200,1700 ferrous sulfate 325 mg (65 mg iron) tablet,delayed release (DR/EC) 325 mg PO DAILY midodrine 5 mg tablet 5 mg PO DAILY PRN (Reason: Hypotension) melatonin 10 mg capsule 20 mg PO BEDTIME Qty: 90 0RF clindamycin phosphate 1 % lotion 1 appl topical BID Qty: 60 0RF Print Language: Portuguese
[2024-07-14 06:29] LABS: Partial Thromboplastin Time 33.4 SEC (26.0-36.8)
[2024-07-14 06:31] LABS: Basophils Absolute Auto 0.1 X10*3/uL (0.0-0.2); Basophils Percent Auto 0.5 % (0-2); Eosinophils Absolute Auto 0.3 X10*3/uL (0.0-0.4); Eosinophils Percent Auto 3.3 % (0-4); Hematocrit 39.9 % (37.0-47.0); Hemoglobin 13.5 g/dl (12.0-16.0); Imm Gran Abs Auto 0.02 X10*3/uL (0.00-0.03); Imm Gran Pct Auto 0.2 % (0.0-0.4); Lymphocytes Absolute Auto 1.9 X10*3/uL (1.2-4.9); Lymphocytes Percent Auto 20.1 % (20-40); Mean Corpuscular HGB Conc 33.8 g/dl (31.0-35.0); Mean Corpuscular Volume 91.5 fL (80.0-98.0); Mean Platelet Volume 9.6 fL (9.4-12.3); Monocytes Absolute Auto 0.7 X10*3/uL (0.1-1.2); Monocytes Percent Auto 6.9 % (2-11); Neutrophils Absolute Auto 6.5 x10*3/uL (2.0-8.3); Platelet Count 274 X10*3/uL (160-400); Red Blood Count 4.36 X10*6/uL (4.20-5.50); Red Cell Distribution Width 13.8 % (11.0-16.0); White Blood Count 9.5 X10*3/uL (4.8-10.8)
[2024-07-14] MEDS: Morphine Sulfate 4 MG/ML CARTRIDGE IVPUSH (06:35)
[2024-07-14] MEDS: ondansetron HCL 4 MG/2 ML VIAL IVPUSH (06:35)
[2024-07-14] MEDS: Pantoprazole Sodium 40 MG/10 ML VIAL 80 MG IVPUSH (06:35)
[2024-07-14 06:46] LABS: Alanine Aminotransferase 10 U/L (0-31); Albumin Level 4.1 g/dL (3.5-5.0); Alkaline Phosphatase 234 U/L (39-117); Anion Gap 16 (12-20); Aspartate Amino Transferase 18 U/L (5-31); Bilirubin Direct 0.1 mg/dL (0.0-0.5); Bilirubin Total 0.3 mg/dL (0.0-1.0); Blood Urea Nitrogen 23 mg/dL (9-16); Calcium 9.8 mg/dL (8.4-10.2); Carbon Dioxide 25 mmol/L (22-29); Chloride 103 mmol/L (96-108); Creatinine Clr Calc Pharmacy 9.1; Estimated Glomerular Filt Rate 7; Glucose Random 124 mg/dL (60-115); Iron 63 mcg/dL (30-160); Percent Iron Saturation 34 % (15-50); Sodium 140 mmol/L (135-145); Total Iron Binding Capacity 184 mcg/dL (228-428); Total Protein 7.1 g/dL (6.5-8.0); Unsaturated Iron Binding 121 ug/dL
--- OUTSIDE RECORDS SUMMARY | 2024-07-14 06:49 | XMS_ITS | Clinical Summary ---
Author Organization [facility] Address [address] [place] [address] Phone Care Team Providers Care Insulation Estimator Name Role Phone Sam Lynch MD Primary Care Provider Allergies Active Allergy Reactions Criticality Noted Date Comments Ibuprofen High 01/25/2021 Other Reaction(s): KIDNEY DAMAGE Nifedipine High 01/25/2021 Other Reaction(s): HIVES, LEG EDEMA Medications acetaminophen (TYLENOL) 500 mg capsule Take 2 capsules (1,000 mg total) by mouth. 07/24/19 24 Active carvediloL (COREG) 6.25 mg tablet Take 1 tablet (6.25 mg total) by mouth 2 (two) times a day with meals. 02/15/19 23 Active dicyclomine (BENTYL) 10 mg capsule Take [...] Take 1 tablet (325 mg total) by mouth 1 (one) time each day. 02/18/19 23 Active fluticasone propionate (FLONASE) 50 mcg/actuation nasal spray INSTILL 1 SPRAY INTRANASALLY DAILY ADMINISTER INTO EACH NOSTRIL 07/27/19 22 Active sucralfate (CARAFATE) 1 gram tablet Take 1 tablet (1 g total) by mouth 2 (two) times a day. 07/24/19 24 Active ergocalciferol (VITAMIN D-2) 1,250 mcg (50,000 unit) capsule Take 1 capsule (50,000 Units total) by mouth 1 (one) time per week. 04/29/19 25 Active melatonin 10 mg capsule Take 2 capsules (20 mg total) by mouth at bedtime. 06/12/19 25 Active vitamin B complex (B COMPLEX 1 ORAL) ALMAS CE (1) TABLETA POR VIA ORAL CE VEZ AL IRAM 07/14/19 22 Discontin ued(Stop Taking at Discharge ) hydralazine HCl (HYDRALAZINE ORAL) Take by mouth. Discontin ued(Stop Taking at Discharge ) lidocaine 4 % patch Apply topically. Discontin ued(Stop Taking at Discharge ) melatonin 5 mg tablet Take by mouth. Discontin ued(Alter maxi therapy) ONDANSETRON HCL ORAL Take 4 mg by mouth. 02/08/20 22 025 Discontin ued(Alter maxi therapy) busPIRone (BUSPAR) 5 mg tablet Take 1 tablet (5 mg total) by mouth 1 (one) time each day. 06/20/19 22 025 Discontin ued(Stop Taking at Discharge ) calcitrioL (ROCALTROL) 0.25 mcg capsule Take 4 capsules (1 mcg total) by mouth 3 (three) times a week. Friday, Friday, Friday with dialysis 025 Discontin ued(Stop Taking at Discharge ) carvedilol CR (COREG CR) 10 mg 24 hr capsule Take 1 capsule (10 mg total) by mouth. 025 Discontin ued(Stop Taking at Discharge ) cyclobenzaprine (FLEXERIL) 5 mg tablet Take 1 tablet (5 mg total) by mouth. 07/14/19 22 025 Discontin ued(Stop Taking at Discharge ) diclofenac (VOLTAREN) 1 % topical gel APLICAR 2 GRAMOS TOPICAMENTE CUATRO VECES AL IRAM EN LA ESPALDA. 07/14/19 22 Discontin ued(Stop Taking at Discharge ) gabapentin (NEURONTIN) 300 mg capsule Take 1 capsule (300 mg total) by mouth. Discontin ued(Alter maxi therapy) meclizine (ANTIVERT) 25 mg tablet Take 1 tablet (25 mg total) by mouth 3 (three) times a day if needed for dizziness. Discontin ued(Stop Taking at Discharge ) midodrine (PROAMATINE) 5 mg tablet Take 1 tablet (5 mg total) by mouth 3 (three) times a day if needed (hypotension). Discontin ued(Stop Taking at Discharge ) ondansetron ODT (ZOFRAN-ODT) 4 mg disintegrating tablet Discontin ued(Stop Taking at Discharge ) polyethylene glycol (MIRALAX) 17 gram packet Take 17 g by mouth 1 (one) time each day if needed for constipation. 02/08/20 Discontin ued(Stop Taking at Discharge ) potassium chloride 20 mEq tablet extended release Take 20 mEq by mouth 1 (one) time each day. Discontin ued(Stop Taking at Discharge ) senna (SENOKOT) 8.6 mg tablet Take 2 tablets (17.2 mg total) by mouth. 07/17/19 22 Discontin ued(Stop Taking at Discharge ) sevelamer carbonate (RENVELA) 800 mg tablet Take 1 tablet (800 mg total) by mouth 2 (two) times a day. 07/14/19 22 Discontin ued(Stop Taking at Discharge ) simethicone (MYLICON) 80 mg chewable tablet Chew 1 tablet (80 mg total) 2 (two) times a day. 02/08/20 22 025 Discontin ued(Stop Taking at Discharge ) sodium zirconium cyclosilicate (Lokelma) 10 gram packet Take by mouth. Discontin ued(Stop Taking at Discharge ) ursodioL (ACTIGALL) 300 mg capsule Take 2 capsules (600 mg total) by mouth. 02/08/20 025 Discontin ued(Stop Taking at Discharge ) vitamin A 2,400 mcg capsule Discontin ued(Stop Taking at Discharge ) atorvastatin (LIPITOR) 20 mg tablet Take 1 tablet (20 mg total) by mouth. 025 Discontin ued(Stop Taking at Discharge ) furosemide (LASIX) 80 mg tablet Take 1 tablet (80 mg total) by mouth 1 (one) time each day if needed (edema). 025 Discontin ued(Stop Taking at Discharge ) citalopram (CeleXA) 20 mg tablet Take 1 tablet (20 mg total) by mouth 1 (one) time each day. 06/20/19 025 Discontin ued(Stop Taking at Discharge ) multivit with iron,minerals (MULTI-VITAMINS WITH IRON ORAL) Take by mouth. 07/03 025 Discontin ued(Stop Taking at Discharge ) pyridoxine HCl, vitamin B6, (VITAMIN B-6 ORAL) Take by mouth. Discontin ued(Stop Taking at Discharge ) CHOLECALCIFEROL, VITAMIN D3, ORAL Take by mouth. 06/11 05/12 025 Discontin ued(Stop Taking at Discharge ) wheat dextrin 3 gram/3.8 gram powder Take 4 g by mouth. 02/08/20 025 Discontin ued(Stop Taking at Discharge ) pantoprazole (PROTONIX) 40 mg EC tablet TAKE 1 TABLET BY MOUTH EVERY DAY 90 tablet 1 05/15/19 25 025 Discontin ued(Stop Taking at Discharge ) omeprazole (PriLOSEC) [address] capsule Take 1 capsule (40 mg total) by mouth 3 (three) times a day. 06/29/19 025 Discontin ued(Stop Taking at Discharge ) Clinisol SF 15 % 15 % parenteral solution 06/25/19 25 025 Discontin ued(Stop Taking at Discharge ) gabapentin (NEURONTIN) 400 mg capsule Take 1 capsule (400 mg total) by mouth 3 (three) times a day. 04/29/19 25 025 Discontin ued(Stop Taking at Discharge ) ondansetron (ZOFRAN) 4 mg tablet Take 1 tablet (4 mg total) by mouth every 8 (eight) hours if needed for nausea or vomiting. 06/15/19 25 025 Discontin ued(Stop Taking at Discharge ) zinc gluconate 50 mg tablet Take 1 tablet (50 mg total) by mouth 1 (one) time each day. 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 11/26/2023 [place] [place] 04/26/2021 Benign essential hypertension 04/26/2021 Dependence on renal dialysis [place] [place] 04/26 Disorder of kidney and ureter, unspecified 04/26 ESRD [place] hemodialysis [place] [place] [facility] [place] 04/26/2021 Hypertensive heart and chron ic kidney disease with heart failure and stage 1 through stage 4 chronic kidney disease, or unspecified chronic kidney disease [place] [place] [facility] [place] 04/26/2021 Vitamin D deficiency 04/26/2021 Resolved Problems Problem Noted Date Diagnosed Date Resolved Date Upper GI bleed 06/30/2024 07/03/2024 Encounters Date Type Department Care Team Description 07/07/2024 Telephone Gastroenterology - [address] [place] [address] [address] [facility] [address] [place] [phone] Michelle Cowan MA Results 07/02/2024 7:25 AM EDT Anesthesia Event [facility] Endoscopy [address] [place] [phone] Dayna Clements MD Claudio, Raymund, CRNA 06/30/2024 8:21 AM EDT - 07/03/2024 6:47 PM EDT Hospital Encounter [facility] Medical Surgical Unit [address] [place] [phone] Claude Lucia MD Bukalo, Nermina, MD Zipagan, James T, MD Upper GI bleed (Primary Dx) Discharge Disposition: Home or Self Care 06/14/2024 Telephone Bariatric Surgery - [place] [facility] [address] [place] [phone] Gerson Rosen MD from Last 3 Months Surgical History Surgery Date Site/Laterality Comments OTHER SURGICAL HISTORY PROCEDURE: DIALYSIS ACCESS SYSTEM LAPAROSCOPIC GASTRIC BANDING PROCEDURE: LAP ADJUSTABLE GASTRIC BAND HYSTERECTOMY PROCEDURE: HISTORICAL HYSTERECTOMY OTHER SURGICAL HISTORY PROCEDURE: COLONOSCOPY LESION REMOVAL OTHER SURGICAL HISTORY 06/13/2021 Left PROCEDURE: VT CRTJ ARVEN FSTL XCP DIR ARVEN ANAST [...] (BMI) of 32.0 to 32.9 in adult Esophageal ulcer Gastric ulcer Social History Tobacco Use Types Packs/Day Years Used Date Smoking Tobacco: Every Day Smokeless Tobacco: Never Alcohol Use Standard Drinks/Week Comments Never 0 (1 standard drink = 0.6 oz pur e alcohol) Interpersonal Safety Answer Date Record ed Physical Abuse 07/01/2024 Verbal Abuse 07/01/2024 Comments Unknown Sex and Gender Information Value Date Recorded Sex Assigned at Female 06/30/2024 8:57 AM EDT Legal Sex Female 9:02 AM EST Gender Identity Female 06/30/2024 8:57 AM EDT Sexual Orientation Straight 06/30/2024 8: 57 AM EDT Obstetrics History Last Filed Vital Signs Vital Sign Reading Time Taken Comments Blood Pressure 101/76 07/03/2024 5:04 PM EDT Pulse 91 07/03/2024 5:04 PM EDT Temperature 36.2 ??C (97.2 ??F) 07/03/2024 3:09 PM ED T Respiratory Rate 14 07/03/2024 3:09 PM EDT Oxygen Saturation 100% 07/03/2024 5:04 PM EDT Inhaled Oxygen Concentration - - Weight 58.5 kg (129 lb) 07/01/2024 5:00 AM EDT Height 165.1 cm (5' 5 ) 06/30/2024 8:44 AM EDT Body Mass Index 21.47 06/30/2024 8:44 AM EDT Plan of Treatment Upcoming Encounters Date Type Department Care Team (Late st Contact Info) Description 07/15/2024 2:00 PM EDT Office Visit Bariatric Surgery - [place] [address] [phone] Gerson Rosen MD [address] [phone] 09/01/2024 3:15 PM EDT Office Visit Bariatric Surgery [facility] [address] [phone] Grace Abarca PA [address] [address] Health Maintenance Due Date Last Done Comments Breast Cancer Screening 1970 DTaP,Tdap,and Td Vaccines (1 - Tdap) 07/26/1990 Cervical Cancer Screening: Pap Smear 07/26/1992 Zoster Vaccines (1 of 2) 07/26/2021 Colorectal Cancer Screening: Colonoscopy 01/20/2022 Depression Screening 01/20/2022 HIV Screening 01/20/2022 Medicare Annual Wellness Visit 01/20/2022 Social Influencers of Health Screening 01/20/2022 Hepatitis B Vaccines (3 of 3 - 19+ 3-dose series) 09/17/2022 06/21/2022, 03/20/2022 COVID-19 Vaccine ( season) 2023 01/19/2021, 07/05/2020, 05/31/2020 Hypertension/CHF/CAD Annual BMP Blood Test 07/02/2025 07/02/2024, 07/01/2024, 06/30/2024 Pneumococcal Vaccine: 50+ Years (3 of 3 - PCV20 or PCV21) 03/27/2026 03/27/2021, 10/31/2016 Pneumococcal Vaccine: Pediatrics (0 to 5 Years) and At-Risk Patients (6 to 64 Years) (3 of 3 - PCV20 or PCV21) 03/27/2026 03/27/2021, 10/31/2016 Cholesterol Screening (Lipid Panel) 05/14/2029 05/14/2024, 02/20/2024 Hepatitis C Screening Completed 11/02/2020 Influenza Vaccine Completed 12/01/2023, , 11/14/2021, Additional history exists HIB Vaccines Aged Out No longer eligi [...] to complete this topic RSV Immunization Patients Under 20 months Aged Out No longer eligible based on patient's age to complete this topic Varicella Vaccines Aged Out No longer eligible based on patient's age to complete this topic Procedures Procedure Name Priority Date/Time Associated Diagnosis Comments US DUPLEX ABDOMEN/PELVIS/RETRO LIMITED Routine 07/02/2024 6:56 PM EDT Upper GI bleed LAVENDER - EDTA Routine 07/02/2024 10:20 AM EDT EXTRA TUBES Routine 07/02/2024 10:20 AM EDT BASIC METABOLIC PANEL Routine 07/02/2024 10:20 AM EDT CBC WITH AUTO DIFFERENTIAL Routine 07/02/2024 8:43 AM EDT CBC AND DIFFERENTIAL Routine 07/02/2024 8:43 AM EDT EGD Routine 07/02/2024 7:46 AM EDT Upper GI bleed TISSUE EXAM Routine 07/02/2024 7:42 AM EDT Upper GI bleed HEMODIALYSIS INPATIENT Routine 5 12:16 PM EDT HEMODIALYSIS INPATIENT Routine 5 11:55 AM EDT ECG 12-LEAD Routine 07/01/2024 5:38 AM EDT IRON AND TIBC Add-On 07/01/2024 5:19 AM EDT VITAMIN B12 Add-On 07/01/2024 5:19 AM EDT HEPATITIS B SURFACE ANTIGEN WITH CONFIRMATION Routine 07/01/2024 5:19 AM EDT HEPATITIS B SURFACE ANTIBODY QUANTITATIVE Routine 07/01/2024 5:19 AM EDT NICOTINE AND COTININE Routine 07/01/2024 5:19 AM EDT COMPLETE BLOOD COUNT Routine 07/01/2024 5:19 AM EDT BASIC METABOLIC PANEL Routine 07/01/2024 5:19 AM EDT HEMOGLOBIN AND HEMATOCRIT Timed 06/30/2024 11:34 PM EDT HEMOGLOBIN AND HEMATOCRIT Timed 06/30/2024 5:[address] ABDOMEN PELVIS WO CONTRAST STAT 06/30/2024 9:30 AM EDT CBC WITH AUTO DIFFERENTIAL STAT 06/30/2024 8:34 AM EDT PROTHROMBIN TIME WITH INR STAT 06/30/2024 8:34 AM EDT COMPREHENSIVE METABOLIC PANEL STAT 06/30/2024 8:34 AM EDT CBC AND DIFFERENTIAL STAT 06/30/2024 8:34 AM EDT LIPASE STAT 06/30/2024 8:34 AM EDT from Last 3 Months Results * US Duplex Abdomen/Pelvis/Retro Limited (07/02/2024 6:56 PM EDT) Anatomical Region Laterality Modality Body Ultrasound 07/02/2024 7:20 PM EDT Impressions 07/02/2024 7:20 PM EDT Impression: 1. Atrophic appearing right kidney and small right renal cysts as described above. 2. Otherwise, unremarkable exam. This document has been electronically signed by: Rolf Alanis MD on 07/02/2024 19:20:07 Narrative 07/02/2024 7:20 PM EDT INDICATION: UGI bleed, negative endo US limited of the abdomen with Doppler interrogation Comparison: None Findings: Liver is normal size and reveals homogeneous echotexture. No focal hepatic lesions. No intrahepatic ductal dilatation. Right lobe length measures 14.4 cm. Portal vein reveals hepatopetal flow. There is normal outgoing flow within the hepatic veins. Normal-appearing hepatic arterial Doppler flow signal. Common bile duct measures 6 mm. Gallbladder appears unremarkable. No sonographic Reis's sign. Right kidney relatively small. No hydronephrosis. Right renal length is 6.6 cm. Increased renal cortical echotexture suggest history of chronic nonspecific medical renal disease. A lower pole cyst measuring up to 14 mm an upper pole cyst measuring up to 13 mm are present. Spleen measures 7.9 cm length. Normal Doppler flow signal seen within visualized aorta and inferior vena cava. Procedure Note Rolf Alanis MD - 07/02/2024 INDICATION: UGI bleed, negative endo US limited of the abdomen with Doppler interrogation Comparison: None Findings: Liver is normal size and reveals homogeneous echotexture. No focal hepatic lesions. No intrahepatic ductal dilatation. Right lobe length measures 14.4 cm. Portal vein reveals hepatopetal flow. There is normal outgoing flow within the hepatic veins. Normal-appearing hepatic arterial Doppler flow signal. Common bile duct measures 6 mm. Gallbladder appears unremarkable. No sonographic Reis's sign. Right kidney relatively small. No hydronephrosis. Right renal length is 6.6 cm. Increased renal cortical echotexture suggest history of chronic nonspecific medical renal disease. A lower pole cyst measuring up to 14mm an upper pole cyst measuring up to 13 mm are present. Spleen measures 7.9 cm length. Normal Doppler flow signal seen within visualized aorta and inferior vena cava. IMPRESSION: Impression: 1. Atrophic appearing right kidney and small right renal cysts as described above. 2. Otherwise, unremarkable exam. This document has been electronically signed by: Rolf Alanis MD on 07/02/2024 19:20:07 Sergo Wallis MD IMG US PROCEDURES Final Resul t * Lavender tube (07/02/2024 10:20 AM EDT) Pathologist [facility] Extra Tube Hold for add-ons. 07/02/2024 12:01 PM EDT [facility] Comment:Auto resulted. Blood Venous blood specimen / Unknown Venipuncture / Unknown 07/02/2024 10:20 AM EDT 07/02/2024 10:24 AM EDT Sergo Wallis MD LAB BLOOD ORDERABLES Final Re sult [facility] [address] [place] [address], [place] [phone] * (ABNORMAL) Basic metabolic panel (07/02/2024 10:20 AM EDT) Only the most recent of2 resultswithin the time period is included. Pathologist [facility] Sodium 130(L) 133 - 145 mmol/L LAB CHEMISTRY METHOD 07/02/2024 11:07 AM EDT [facility] Potassium 4.7 3.5 - 5.5 mmol/L LAB CHEMISTRY METHOD 07/02/2024 11:07 AM EDT [facility] Chloride 94(L) 96 - 110 mmol/L LAB CHEMISTRY METHOD 07/02/2024 11:07 AM EDT [facility] CO2 29 21 - 32 mmol/L LAB CHEMISTRY METHOD 07/02/2024 11:07 AM EDT [facility] Anion Gap 7 3 - 11 LAB CHEMISTRY METHOD 07/02/2024 11:07 AM T [facility] Glucose 231(H) 70 - 100 mg/dL LAB CHEMISTRY METHOD 07/02/2024 11:07 AM [facility] BUN 16 5 - 25 mg/dL LAB CHEMISTRY METHOD 07/02/2024 11:07 AM [facility] Creatinine 5.36(H) 0.50 - 1.10 mg/dL LAB CHEMISTRY METHOD 07/02/2024 11:07 AM [facility] eGFR 9(L) >=60 mL/min/1. 73m2 LAB CHEMISTRY METHOD 07/02/2024 11:07 AM [facility] Comment:Calculation based on the Chronic Kidney Disease Epidemiology Collaboration (CKD-EPI) equation refit without adjustment for race. BUN/Creatinine Ratio 3.0 LAB CHEMISTRY METHOD 07/02/2024 11:07 AM [facility] Calcium 9.6 8.5 - 10.5 mg/dL LAB CHEMISTRY METHOD 07/02/2024 11:07 AM [facility] Blood Venous blood specimen / Unknown Venipuncture / Unknown 07/02/2024 10:20 AM EDT 07/02/2024 10:23 AM EDT Myrna PARKER LAB BLOOD ORDERABLES Final R esult [facility] [address] [place] [address], * (ABNORMAL) CBC auto differential (07/02/2024 8:43 AM EDT) Only the most recent of2 resultswithin the time period is included. WBC 5.4 4.8 - 10.8 K/mcL LAB HEMETOLOGY METHOD 07/02/2024 9:12 AM EDT [facility] RBC 4.10 3.80 - 4.80 M/mcL LAB HEMETOLOGY METHOD 07/02/2024 9:12 AM [facility] Hemoglobin 12.6 11.5 - 16.0 g/dL LAB HEMETOLOGY METHOD 07/02/2024 9:12 AM [facility] Hematocrit 39.5 35.0 - 47.0 % LAB HEMETOLOGY METHOD 07/02/2024 9:12 AM [facility] MCV 96.6 79.0 - 98.0 FL LAB HEMETOLOGY METHOD 07/02/2024 9:12 AM [facility] MCH 30.8 27.0 - 32.0 pcg LAB HEMETOLOGY METHOD 07/02/2024 9:12 AM [facility] MCHC 31.9(L) 32.0 - 37.0 g/dL LAB HEMETOLOGY METHOD 07/02/2024 9:12 AM [facility] RDW 13.2 11.0 - 15.0 % LAB HEMETOLOGY METHOD 07/02/2024 9:12 AM [facility] Platelets 208 130 - 400 K/mcL LAB HEMETOLOGY METHOD 07/02/2024 9:12 AM [facility] MPV 10.4 7.0 - 11.0 FL LAB HEMETOLOGY METHOD 07/02/2024 9:12 AM [facility] NRBC 0.0 <1.0 % LAB HEMETOLOGY METHOD 07/02/2024 9:12 AM [facility] NRBC Absolute 0.00 <0.10 K/mcL LAB HEMETOLOGY METHOD 07/02/2024 9:12 AM [facility] Neutrophils Relative 60.0 % LAB HEMETOLOGY METHOD 07/02/2024 9:12 AM [facility] Lymphocytes Relative 26.7 % LAB HEMETOLOGY METHOD 07/02/2024 9:12 AM [facility] Monocytes Relative 7.9 % LAB HEMETOLOGY METHOD 07/02/2024 9:12 AM [facility] Eosinophils Relative 4.1 % LAB HEMETOLOGY METHOD 07/02/2024 9:12 AM [facility] Basophils Relative 0.9 % LAB HEMETOLOGY METHOD 07/02/2024 9:12 AM [facility] Immature Granulocytes Relative 0.4 % LAB HEMETOLOGY METHOD 07/02/2024 9:12 AM [facility] Neutrophils Absolute 3.21 1.50 - 7.00 K/mcL LAB HEMETOLOGY METHOD 07/02/2024 9:12 AM [facility] Lymphocytes Absolute 1.43 1.00 - 5.00 K/mcL LAB HEMETOLOGY METHOD 07/02/2024 9:12 AM [facility] Monocytes Absolute 0.42 0.20 - 1.00 K/mcL LAB HEMETOLOGY METHOD 07/02/2024 9:12 AM [facility] Eosinophils Absolute 0.22 0.00 - 0.50 K/mcL LAB HEMETOLOGY METHOD 07/02/2024 9:12 AM [facility] Basophils Absolute 0.05 0.00 - 0.20 K/mcL LAB HEMETOLOGY METHOD 07/02/2024 9:12 AM [facility] Immature Granulocytes Absolute 0.02 0.00 - 0.03 K/mcL LAB HEMETOLOGY METHOD 07/02/2024 9:12 AM [facility] Blood Venous blood specimen / Unknown Venipuncture / Unknown 07/02/2024 8:43 AM EDT 07/02/2024 8:48 AM EDT us Myrna Lissandri PA LAB BLOOD ORDERABLES Final R esult [facility] [address] [place] [address], * EGD Anesthesia - MAC; [facility] ENDOSCOPY (07/02/2024 7:46 AM EDT) Anatomical Region Laterality Modality Other 07/02/2024 7:31 AM EDT Impressions 07/02/2024 7:54 AM EDT - Gastric bypass with a normal-sized pouch and intact ? staple line. Gastrojejunal anastomosis characterized ? by erosion. ? - Gastritis. Biopsied. Recommendation: ?- Resume previous diet. ? - Continue present medications. ? - Await pathology results. Narrative 07/02/2024 7:54 AM EDT [facility] GI Patient Name: Meliza Perry Procedure Date: 07/02/2024 7:31 AM Date of : 1970 Age: 53 Room: ROOM 14 Gender: Female Note Status: Finalized Attending MD: Ari Davis MD, Procedure Date No Time: 07/02/2024 Procedure: ? Upper GI endoscopy Indications: ? Suspected upper gastrointestinal bleeding Providers: ? Ari Davis MD Referring MD: ?Ari Davis MD Medicines: ? Monitored Anesthesia Care Complications: ? No immediate complications. Estimated Blood Loss: ? Estimated blood loss was minimal. Procedure: ? After obtaining informed consent, the endoscope was ? passed under direct vision. Throughout the procedure, ? the patient's blood pressure, pulse, and oxygen ? saturations were monitored continuously. The Olympus ? Gastroscope was introduced through the mouth, and ? advanced to the efferent jejunal loop. The upper GI ? endoscopy was accomplished without difficulty. The ? patient tolerated the procedure well. Findings: ?Evidence of a gastric bypass was found. A gastric ? pouch with a normal size was found. The staple line ? appeared intact. The gastrojejunal anastomosis was ? characterized by erosion. This was traversed. The ? [id number] limb was characterized by ulceration. ? The xpumwdoo-my-[id number] limb was not examined as it ? could not be found. The excluded stomach was not ? examined as it could not be traversed. The ulcers, and ? clips are in the antonia of the small bowel, the ? margins of the anastomosis actually with just ? erosions. Three clips remain. ? Diffuse moderate inflammation characterized by ? congestion (edema), erythema and friability was found ? in the entire examined stomach. Biopsies were taken ? with a cold forceps for histology. This was most ? unusual, see the images. ??Underlying portal ? hypertension, ???related to dialysis. Markedly ? thickened folds, almost appearance of varices ? (gastric) with mucosa swollen with multiple ? superficial vessels. I did take multiple biopsies. Procedure Code(s): ? --- Professional --- ? 88028, Esophagogastroduodenoscopy, flexible, ? transoral; with biopsy, single or multiple Diagnosis Code(s): ? --- Professional --- ? K29.70, Gastritis, unspecified, without bleeding ? K28.9, Gastrojejunal ulcer, unspecified as acute or ? chronic, without hemorrhage or perforation CPT copyright 2020 [employer]. All rights reserved. The codes documented in this report are preliminary and upon biological inspector review may be revised to meet current compliance requirements. MD Ari Collado MD 07/02/2024 7:54:37 AM This report has been signed electronically.Ari Davis MD Number of Addenda: 0 Note Initiated On: 07/02/2024 7:31 AM Scope In: Scope Out: ? Endoscopy Department at [facility] - [address] [place] [address], ? [place] [address] Procedure Note Ari Davis MD - 07/02/2024 [facility] GI Patient Name: Meliza Perry Procedure Date: 07/02/2024 7:31 AM Date of : 1970 Age: 53 Room: ROOM 14 Gender: Female Note Status: Finalized Attending MD: Ari Davis MD, Procedure Date No Time: 07/02/2024 Procedure: Upper GI endoscopy Indications: Suspected upper gastrointestinal bleeding Providers: Ari Davis MD Referring MD: Ari Davis MD Medicines: Monitored Anesthesia Care Complications: No immediate complications. Estimated Blood Loss: Estimated blood loss was minimal. Procedure: After obtaining informed consent, the endoscope was passed under direct vision. Throughout theprocedure, the patient's blood pressure, pulse, and oxygen saturations were monitored continuously. TheOlympus Gastroscope was introduced through the mouth, and advanced to the efferent jejunal loop. The upper GI endoscopy was accomplished without difficulty. The patient tolerated the procedure well. Findings: Evidence of a gastric bypass was found. A gastric pouch with a normal size was found. The staple line appeared intact. The gastrojejunal anastomosis was characterized by erosion. This was traversed. The hnhvi-fh-xthrsxw limb was characterized byulceration. The ijbukwic-xl-dfisdxe limb was not examined as it could not be found. The excluded stomach was not examined as it could not be traversed. The ulcers,and clips are in the antonia of the small bowel, the margins of the anastomosis actually with just erosions. Three clips remain. Diffuse moderate inflammation characterized by congestion (edema), erythema and friability wasfound in the entire examined stomach. Biopsies were taken with a cold forceps for histology. This was most unusual, see the images. ??Underlying portal hypertension, ???related to dialysis. Markedly thickened folds, almost appearance of varices (gastric) with mucosa swollen with multiple superficial vessels. I did take multiplebiopsies. Procedure Code(s): --- Professional --- 06547, Esophagogastroduodenoscopy, flexible, transoral; with biopsy, single or multiple Diagnosis Code(s): --- Professional --- K29.70, Gastritis, unspecified, without bleeding K28.9, Gastrojejunal ulcer, unspecified as acute or chronic, without hemorrhage or perforation CPT copyright 2020 [employer]. All rights reserved. The codes documented in this report are preliminary and upon biological inspector reviewmay be revised to meet current compliance requirements. MD Ari Collado MD 07/02/2024 7:54:37 AM This report has been signed electronically.Ari Davis MD Number of Addenda: 0 Note Initiated On: 07/02/2024 7:31 AM Scope In: Scope Out: Endoscopy Department at [facility] - [address] [place] [phone] IMPRESSION: - Gastric bypass with a normal-sized pouch and intact staple line. Gastrojejunal anastomosischaracterized by erosion. - Gastritis. Biopsied. Recommendation: - Resume previous diet. - Continue present medications. - Await pathology results. Ari Davis MD GI~PROCEDURE ORDERABLES Final R esult * Tissue exam (07/02/2024 7:42 AM EDT) Final Diagnosis Stomach, gastric biopsies: Gastric mucosa with changes suggestive of PPI effect. No Helicobacter pylori type gastritis identified. 07/06/2024 12:39 PM EDT [facility] Gross Description A. Stomach, gastric biopsies: Labeled gastric B stomach . Received in formalin are eight soft to rubbery, rhodes-pink to red tissue fragments ranging from 0.1 cm to 0.6 cm, in greatest diameters, which are wrapped in paper and submitted in toto in one cassette, eight pieces, multiple levels. Please note: Small tissue fragments may not survive processing. dvb/DG 07/06/2024 12:39 PM EDT [facility] Disclaimer Unless otherwise specified, all tissue is 10% NB formalin fixed and paraffin embedded. 07/06/2024 12:39 PM EDT [facility] Tissue Stomach structure / Unknown 07/02/2024 7:42 AM EDT 07/02/2024 9:56 AM EDT us Ari Davis MD LAB PATHOLOGY ORDERABLES Final Result [facility] [address] [place] [address], * ECG 12 lead (07/01/2024 5:38 AM EDT) Ventricular Rate ECG 74 BPM GEMUSE Atrial Rate 74 BPM GEMUSE P-R Interval 120 ms GEMUSE QRS Duration 76 ms GEMUSE Q-T Interval 406 ms GEMUSE QTc 450 ms GEMUSE P Wave Pryor 30 degrees GEMUSE R Pryor 16 degrees GEMUSE T Pryor 53 degrees GEMUSE ECG Interpretation Normal sinus rhythm Normal ECG When compared with ECG of 04-NOV-2023 18:08, No significant change was found Confirmed by MD Shabbir, De Leon ([id number]) on 07/02/2024 7:23:30 AM GEMUSE 07/01/2024 5:38 AM EDT 07/02/2024 7:23 AM EDT us Kristyn Rich PA ECG ORDERABLES Final Result Performing Organization Address [facility] de Phone Number GEMUSE * Hepatitis B surface antigen with reflex to confirmation (07/01/2024 5:19 AM EDT) [facility] Hepatitis B Surface Ag Negative Negative LAB CHEMISTRY METHOD 07/01/2024 10:19 AM EDT [facility] Blood Venous blood specimen / Unknown Venipuncture / Unknown 07/01/2024 5:19 AM EDT 07/01/2024 6:17 AM EDT Narrative [facility] - 07/01/2024 10:19 AM EDT Over the counter supplements containing high doses of biotin may interfere with this assay. ??If interference is suspected, patients shoud be retested after refraining from biotin supplements for 72 hours. us Sergo Wallis MD LAB BLOOD ORDERABLES Final Re sult Performing Organization Address [facility] de Phone Number [facility] [address] [place] [address], * (ABNORMAL) Nicotine and cotinine (07/01/2024 5:19 AM EDT) [facility] Nicotine <2.0 <2.0 ng/mL 07/07/2024 4:39 AM EDT [facility] Cotinine 243.4(H) <2.0 ng/mL 07/07/2024 4:39 AM EDT [facility] Comment: ?Additional Reference Ranges: ? Active Tobacco ? Passive ? Abstinence ?User ?Exposure ?? 2 Weeks and more ? Nicotine ?30 - 50 ??ng/mL ?<2 ng/mL ?<2 ng/mL Cotinine ?? 200 - 800 ng/mL ?<8 ng/mL ?<2 ng/mL Reference Ranges from: ??Clin. Chem.; ??[phone] (2002) Direct any interpretive questions to the toxicology laboratory. This is for medical use only, it is not intended for forensic use. If applicable, any drug confirmation testing reported here was developed and the performance characteristics determined by [facility]. This confirmation testing has not been cleared or approved by the FDA. The laboratory is regulated under CLIA as qualified to perform high-complexity testing. This test is used for patient testing purposes. It should not be regarded as investigational or for research. Test performed at [facility], [address] [place], [place] ??[address] ? [phone] Kim Castelan MD, PhD - Director [employer] Blood Venous blood specimen / Unknown Venipuncture / Unknown 07/01/2024 5:19 AM EDT 07/01/2024 6:17 AM EDT Angela PARKER LAB BLOOD ORDERABLES Final Resu lt [facility] [address] [place] [address] * (ABNORMAL) Iron and TIBC (07/01/2024 5:19 AM EDT) Iron 64 40 - 150 mcg/dL LAB CHEMISTRY METHOD 07/01/2024 7:34 PM EDT [facility] TIBC 191(L) 250 - 450 mcg/dL LAB CHEMISTRY METHOD 07/01/2024 7:34 PM EDT [facility] Iron Saturation 34 15 - 50 % LAB CHEMISTRY METHOD 07/01/2024 7:34 PM EDT [facility] Blood Venous blood specimen / Unknown Venipuncture / Unknown 07/01/2024 5:19 AM EDT 07/01/2024 6:17 AM EDT us Sergo Wallis MD LAB BLOOD ORDERABLES Final Re sult Performing Organization Address [facility]/ZIP Co de Phone Number [facility] [address] [place] [address], [place] [phone] * (ABNORMAL) Hepatitis B surface antibody quantitative (07/01/2024 5:19 AM EDT) [facility] Hepatitis B Surface Ab Positive (A) Negative LAB CHEMISTRY METHOD 07/01/2024 8:54 AM EDT [facility] Hepatitis B Surface Ab Quantitative >1,000.0 mIU/mL LAB CHEMISTRY METHOD 07/01/2024 8:54 AM EDT [facility] Blood Venous blood specimen / Unknown Venipuncture / Unknown 07/01/2024 5:19 AM EDT 07/01/2024 6:17 AM EDT Narrative [facility] - 07/01/2024 8:54 AM EDT >=10 mIU/mL is considered to be consistent with immunity. us Sergo Wallis MD LAB BLOOD ORDERABLES Final Re sult Performing Organization Address [facility]/ZIP Co de Phone Number [facility] [address] [place] [address], [place] [phone] * (ABNORMAL) Complete blood count (07/01/2024 5:19 AM EDT) [facility] WBC 6.1 4.8 - 10.8 K/mcL LAB HEMETOLOGY METHOD 07/01/2024 6:54 AM EDT [facility] RBC 3.50(L) 3.80 - 4.80 M/mcL LAB HEMETOLOGY METHOD 07/01/2024 6:54 AM [facility] Hemoglobin 10.9(L) 11.5 - 16.0 g/dL LAB HEMETOLOGY METHOD 07/01/2024 6:54 AM [facility] Hematocrit 34.6(L) 35.0 - 47.0 % LAB HEMETOLOGY METHOD 07/01/2024 6:54 AM [facility] MCV 97.7 79.0 - 98.0 FL LAB HEMETOLOGY METHOD 07/01/2024 6:54 AM [facility] MCH 30.8 27.0 - 32.0 pcg LAB HEMETOLOGY METHOD 07/01/2024 6:54 AM [facility] MCHC 31.5(L) 32.0 - 37.0 g/dL LAB HEMETOLOGY METHOD 07/01/2024 6:54 AM [facility] RDW 13.6 11.0 - 15.0 % LAB HEMETOLOGY METHOD 07/01/2024 6:54 AM [facility] Platelets 212 130 - 400 K/mcL LAB HEMETOLOGY METHOD 07/01/2024 6:54 AM [facility] MPV 10.5 7.0 - 11.0 FL LAB HEMETOLOGY METHOD 07/01/2024 6:54 AM [facility] NRBC 0.0 <1.0 % LAB HEMETOLOGY METHOD 07/01/2024 6:54 AM [facility] NRBC Absolute 0.00 <0.10 K/mcL LAB HEMETOLOGY METHOD 07/01/2024 6:54 AM [facility] Blood Venous blood specimen / Unknown Venipuncture / Unknown 07/01/2024 5:19 AM EDT 07/01/2024 6:18 AM EDT us Kirby Fulton MD LAB BLOOD ORDERABLES Final Res ult Performing Organization Address [facility]/ZIP Co de Phone Number [facility] [address] [place] [address], [place] [phone] * Vitamin B12 (07/01/2024 5:19 AM EDT) [facility] Vitamin B-12 447 250 - 900 pcg/mL LAB CHEMISTRY METHOD 07/01/2024 7:32 PM EDT [facility] Blood Venous blood specimen / Unknown Venipuncture / Unknown 07/01/2024 5:19 AM EDT 07/01/2024 6:17 AM EDT us Sergo Wallis MD LAB BLOOD ORDERABLES Final Re sult Performing Organization Address [facility]/ZIP Co de Phone Number [facility] [address] [place] [address], [place] [phone] * (ABNORMAL) Hemoglobin and hematocrit (06/30/2024 11:34 PM EDT) Only the most recent of2 resultswithin the time period is included. [facility] Hemoglobin 11.3(L) 11.5 - 16.0 g/dL LAB HEMETOLOGY METHOD 06/30/2024 11:49 PM EDT [facility] Hematocrit 36.0 35.0 - 47.0 % LAB HEMETOLOGY METHOD 06/30/2024 11:49 PM EDT [facility] Blood Venous blood specimen / Unknown Venipuncture / Unknown 06/30/2024 11:34 PM EDT 06/30/2024 11:43 PM EDT us Lenka PARKER LAB BLOOD ORDERABLES Fi nal Result Performing Organization Address City/[facility]/ZIP Co de Phone Number [facility] [address] [place] [address], * CT Abdomen Pelvis wo Contrast (06/30/2024 9:30 AM EDT) Anatomical Region Laterality Modality Body Computed Tomogra phy 06/30/2024 10:1 0 AM EDT Impressions 06/30/2024 10:21 AM EDT 2 mm nonobstructing left renal stone. No hydronephrosis on either side. Status post gastric sleeve formation with conversion to gastric bypass. No bowel obstruction, free air, free fluid or focal inflammatory changes. -------- FINAL REPORT -------- Dictated By: Christopher Rouse Dictated Date: 06/30/2024 10:10 ET Assigned Physician: Christopher Rouse Reviewed and Electronically Signed By: Christopher Rouse Signed Date: 06/30/2024 10:21 ET Workstation ID: [id number] Transcribed By: Self Edit Transcribed Date: 06/30/2024 10:10 ET Narrative 06/30/2024 10:21 AM EDT INDICATION: ??flank pain TECHNIQUE: CT scan of the abdomen and pelvis obtained utilizing the renal stone protocol therefore no intravenous or oral contrast was administered. Scanner: fruuxer 128 slice VCT Dose reduction technique: ASIR (Adaptive statistical iterative reconstruction) and/or AEC (automated exposure control) Dose: total exam DLP 507 mGY per cm COMPARISON: Compared to multiple prior studies most recent from November 04, 2023 FINDINGS: Lung bases are clear. ??Heart borderline enlarged without pericardial effusion. Bony structures are within normal limits for the patient's age. Similar grade 1 anterolisthesis of L4 and L5. Liver, spleen, pancreas and adrenal glands are normal. Gallbladder within normal limits. Right kidney is again small in size measuring approximately 7 cm sagittally. Cystic changes in the upper pole and midpole are grossly similar to the prior study. No nephrolithiasis or hydronephrosis. Left kidney is also atrophic and unchanged. 2 mm stone in the mid kidney is similar to the prior study. No hydronephrosis. Postoperative changes along the [gastric sleeve formation with conversion to gastric bypass. Opacified small bowel loops are unremarkable. Appendix normal. Unopacified unremarkable. Increased attenuation along the right lower quadrant omentum and adjacent mesentery likely represents surgical sequela. No free air. Trace amount of free fluid noted within the left side of the pelvis dependently. Urinary bladder unremarkable. Status post hysterectomy. No adnexal masses. Procedure Note Christopher Rouse MD - 06/30/2024 INDICATION: flank pain TECHNIQUE: CT scan of the abdomen and pelvis obtained utilizing the renalstone protocol therefore no intravenous or oral contrast wasadministered. Scanner: fruuxer 128 slice VCT Dose reduction technique: ASIR (Adaptive statistical iterativereconstruction) and/or AEC (automated exposure control) Dose: total exam DLP 507 mGY per cm COMPARISON: Compared to multiple prior studies most recent from 2023 FINDINGS: Lung bases are clear. Heart borderline enlarged without pericardialeffusion. Bony structures are within normal limits for the patient's age. Similargrade 1 anterolisthesis of L4 and L5. Liver, spleen, pancreas and adrenal glands are normal. Gallbladder within normal limits. Right kidney is again small in size measuring approximately 7 cmsagittally. Cystic changes in the upper pole and midpole are grosslysimilar to the prior study. No nephrolithiasis or hydronephrosis. Left kidney is also atrophic and unchanged. 2 mm stone in the mid kidneyis similar to the prior study. No hydronephrosis. Postoperative changes along the [gastric sleeve formation with conversionto gastric bypass. Opacified small bowel loops are unremarkable. Appendixnormal. Unopacified unremarkable. Increased attenuation along the rightlower quadrant omentum and adjacent mesentery likely represents surgicalsequela. No free air. Trace amount of free fluid noted within the left side of thepelvis dependently. Urinary bladder unremarkable. Status post hysterectomy. No adnexal masses. IMPRESSION: 2 mm nonobstructing left renal stone. No hydronephrosis on either side. Status post gastric sleeve formation with conversion to gastric bypass. Nobowel obstruction, free air, free fluid or focal inflammatory changes. -------- FINAL REPORT -------- Dictated By: Christopher Rouse Dictated Date: 06/30/2024 10:10 ET Assigned Physician: Christopher Rouse Reviewed and Electronically Signed By: Christopher Rouse Signed Date: 06/30/2024 10:21 ET Workstation ID: [id number] Transcribed By: Self Edit Transcribed Date: 06/30/2024 10:10 ET us Cluade Lucia MD IMG CT PROCEDURES Final Result * Protime-INR (06/30/2024 8:34 AM EDT) [facility] Protime 11.4 10.6 - 13.9 sec LAB COAGULATION METHOD 06/30/2024 9:18 AM EDT [facility] INR 0.9 LAB COAGULATION METHOD 06/30/2024 9:18 AM EDT [facility] Blood Venous blood specimen / Unknown Venipuncture / Unknown 06/30/2024 8:34 AM EDT 06/30/2024 9:02 AM EDT us Claude Lucia MD LAB BLOOD ORDERABLES Final Resu lt Performing Organization Address [facility]/ZIP Co de Phone Number [facility] [address] [place] [address], [place] [phone] * Lipase (06/30/2024 8:34 AM EDT) [facility] Lipase 56 13 - 75 unit/L LAB CHEMISTRY METHOD 06/30/2024 9:50 AM EDT [facility] Blood Venous blood specimen / Unknown Venipuncture / Unknown 06/30/2024 8:34 AM EDT 06/30/2024 9:02 AM EDT us Claude Lucia MD LAB BLOOD ORDERABLES Final Resu lt Performing Organization Address City/[facility]/ZIP Co de Phone Number [facility] [address] [place] [address], [place] [phone] * (ABNORMAL) Comprehensive metabolic panel (06/30/2024 8:34 AM EDT) [facility] Sodium 138 133 - 145 mmol/L LAB CHEMISTRY METHOD 06/30/2024 10:17 AM [facility] Potassium 5.1 3.5 - 5.5 mmol/L LAB CHEMISTRY METHOD 06/30/2024 10:17 AM [facility] Comment:Hemolysis present Chloride 108 96 - 110 mmol/L LAB CHEMISTRY METHOD 06/30/2024 10:17 AM [facility] CO2 23 21 - 32 mmol/L LAB CHEMISTRY METHOD 06/30/2024 10:17 AM [facility] Anion Gap 7 3 - 11 LAB CHEMISTRY METHOD 06/30/2024 10:17 AM [facility] Glucose 103(H) 70 - 100 mg/dL LAB CHEMISTRY METHOD 06/30/2024 10:17 AM [facility] BUN 26(H) 5 - 25 mg/dL LAB CHEMISTRY METHOD 06/30/2024 10:17 AM [facility] Creatinine 6.44(H) 0.50 - 1.10 mg/dL LAB CHEMISTRY METHOD 06/30/2024 10:17 AM [facility] eGFR 7(L) >=60 mL/min/1. 73m2 LAB CHEMISTRY METHOD 06/30/2024 10:17 AM [facility] Comment:Calculation based on the Chronic Kidney Disease Epidemiology Collaboration (CKD-EPI) equation refit without adjustment for race. BUN/Creatinine Ratio 4.0 LAB CHEMISTRY METHOD 06/30/2024 10:17 AM [facility] Calcium 9.7 8.5 - 10.5 mg/dL LAB CHEMISTRY METHOD 06/30/2024 10:17 AM [facility] AST (SGOT) 20 10 - 42 unit/L LAB CHEMISTRY METHOD 06/30/2024 10:17 AM [facility] Comment:Hemolysis present ALT (SGPT) 24 10 - 60 unit/L LAB CHEMISTRY METHOD 06/30/2024 10:17 AM [facility] Alkaline Phosphatase 240(H) 42 - 121 unit/L LAB CHEMISTRY METHOD 06/30/2024 10:17 AM EDT [facility] Total Protein 6.9 6.0 - 8.0 g/dL LAB CHEMISTRY METHOD 06/30/2024 10:17 AM EDT [facility] Albumin 3.5 3.2 - 5.0 g/dL LAB CHEMISTRY METHOD 06/30/2024 10:17 AM EDT [facility] Total Bilirubin 0.4 0.0 - 1.4 mg/dL LAB CHEMISTRY METHOD 06/30/2024 10:17 AM EDT [facility] Blood Venous blood specimen / Unknown Venipuncture / Unknown 06/30/2024 8:34 AM EDT 06/30/2024 9:02 AM EDT Claude Lucia MD LAB BLOOD ORDERABLES Final Resu lt [facility] [address] [place] [address], [place] [phone] from Last 3 Months Insurance MEDICAID - [place] MEDICARE Advance Directives Documents on File Type Date Recorded Patient Game Author Expl anation Health Care Decision (hx) 07/24/2023 [...] Care Decision (hx) 12/16/2022 AD REED DIRECTIVE * Full Code - Default (Latest Code Status on File) Date Activated Date Inactivated Comments 06/30/2024 1:49 PM 07/03/2024 8:48 PM This is orde r is used when code status has not been discussed with the patient, or code status is otherwise unknown/unconfirmed To update the patient's code status, place a code status order. Do not modify or discontinue any currently active code status orders. Care Teams Insulation Estimator Relationship Specialty Start Date End Date Sam Lynch MD [address] [place] [address] Dr [address] [place], [place] PCP - General 10/25/22
[2024-07-14 06:53] LABS: GASOB Int Neg Ctl Valid YES; GASOB Int Pos Ctl Valid YES; GASOB Lot 20632 10; Occult Blood Gastric POSITIVE (NEG)
[2024-07-14 07:00] LABS: Ferritin 1608 ng/mL (10-250)
[2024-07-14] MEDS: Lactated Ringers 1,000 ML 999 ML IV (07:07)
[2024-07-14] MEDS: Prochlorperazine Edisylate 10 MG/2 ML VIAL IVPUSH (07:07)
[2024-07-14] MEDS: hydrALAZINE HCl 20 MG/ML VIAL 10 MG IVPUSH (07:24)
--- NOTE | 2024-07-14 07:30 | PC.NURSE ---
Assumed car of pt approx 0700, pt resting comfortably in bed. A/O x 3, no apparent s/s of distress. Reports pain and nausea have improved. Noted to be hypertensive but asymptomatic, 201/101, MD Aguirre notified. IV hydralazine ordered and given. Plan of care ongoing.
[2024-07-14] MEDS: carvediloL 6.25 MG TABLET PO (08:40)
== END 2024-07-14 08:54 | disposition home or self-care (01) ==
PROVIDERS: Emergency Medicine; Emergency Provider Emergency Medicine; PCP Internal Medicine
DX: I12.0 Hypertensive chronic kidney disease with stage 5 chronic kidney disease or end stage renal disease (principal); D63.1 Anemia in chronic kidney disease; N18.6 End stage renal disease; R11.2 Nausea with vomiting, unspecified; Z99.2 Dependence on renal dialysis; Z79.899 Other long term (current) drug therapy
CPT/HCPCS: 36415; 74176; 80048; 80076; 82271; 82728; 83540; 85025; 85730; 86850; 86900; 86901; 96361; 96374; 96375; 99284; 99285; J0360; J0737; J2270; J2405; J2470; J7120

== ENCOUNTER → 2024-07-14 06:22 | Outpatient (BNV) | payer MEDICARE, MEDICAID, SELFPAY | PROVIDERS: Emergency Provider Emergency Medicine; PCP Internal Medicine; Visit Provider Radiology Diagnostic Radiology | DX: N20.0 Calculus of kidney (principal) | CPT/HCPCS: 74176 ==

== ENCOUNTER 2024-07-18 18:43 | Emergency (ER) | payer MEDICARE, MEDICAID, SELFPAY ==
[2024-07-18 18:45] VITALS: BP 160/102; PULSE 88
[2024-07-18 18:50] VITALS: BP 233/132; PULSE 87; RESP 18; TEMP 36.8; O2SAT 98; BMI 22.5
--- NOTE | 2024-07-18 19:05 | ED_ITS ---
HPI - General Adult General Chief complaint: GI Bleed Stated complaint: abd pain x24 hrs, black tarry stool, vomiting Time Seen by Provider: 07/18/24 19:05 History of Present Illness ED Provider: Lubna BULLOCK narrative: The patient is a 53-year-old female with a history of end-stage renal failure on dialysis. She has dialysis on Mondays, Wednesdays, and Fridays. She has a problem with gastritis and recurrent ulcers, apparently related to previous bariatric surgery. The patient says that she started to feel unwell after eating pasta yesterday at around noon. She says that she developed nausea and vomiting and tried to take sucralfate and other medications but was unable to keep anything down. She felt unwell throughout the night and this morning. She has not been able to take her regular medications. She thought that she had loose stools that looked like coffee-grounds and so she called an ambulance and was brought to the hospital. Here in the emergency room her blood pressure was quite elevated. She said she could not take any of her regular medications this morning. The patient was here 4 days ago on July 14. She presented with the abdominal pain at that time as well and was also hypertensive. She was treated and ultimately released from the emergency room. The patient says that her abdominal pain today is very similar to her previous abdominal pain. Related Data Home Medications ?Medication ?Instructions ?Recorded ?Confirmed ferrous sulfate 325 mg (65 mg 325 mg PO DAILY 05/11/20 06/10/24 iron) tablet,delayed release cyanocobalamin (vitamin B-12) 1,000 mcg PO DAILY 10/17/20 06/10/24 1,000 mcg tablet midodrine 5 mg tablet 5 mg PO DAILY PRN Hypotension 03/25/23 06/10/24 acetaminophen 500 mg capsule 1,000 mg PO Q8H PRN Pain 08/10/23 06/10/24 (Mapap (acetaminophen)) fluticasone propionate 50 1 spray intranasal DAILY PRN 08/10/23 06/10/24 mcg/actuation nasal Allergy Symptoms spray,suspension [id number]-minn 45 mg-folic 1 cap PO DAILY 08/10/23 06/10/24 acid 800 mcg-vit K 120 mcg capsule (Bariatric Multivitamins) parenteral amino acid 15% no.5 15 0.5 ea IV MOWEFR@0900 08/10/23 06/10/24 % combination no.5 intravenous solution (Clinisol SF) sucralfate 1 gram tablet 1 g PO BID 08/10/23 06/10/24 zinc acetate 50 mg (zinc) capsule 100 mg PO DAILY 05/19/24 06/10/24 ergocalciferol (vitamin D2) 1,250 1,250 mcg PO PLEITEZ 06/04/24 06/10/24 mcg (50,000 unit) capsule (Vitamin D2) meclizine 12.5 mg tablet 12.5 mg PO TID PRN Nausea And 06/04/24 06/10/24 Vomiting omeprazole 40 mg capsule,delayed 40 mg PO BID@0630,1630 06/04/24 06/10/24 release sevelamer carbonate 800 mg tablet 1,600 mg PO BIDWM@1200,1700 06/04/24 06/10/24 Previous Rx's ?Medication ?Instructions ?Recorded thiamine HCl (vitamin B1) 100 mg 100 mg PO DAILY 90 days #90 tabs 09/27/23 tablet vitamin A 2,400 mcg capsule 2,400 mcg PO DAILY 90 days #90 caps 02/05/24 citalopram 20 mg tablet 20 mg PO DAILY 90 days #90 tabs 03/18/24 carvedilol 6.25 mg tablet 6.25 mg PO BID 90 days #180 tabs 04/28/24 gabapentin 400 mg capsule 400 mg PO BID 90 days #180 caps 04/28/24 pyridoxine (vitamin B6) 50 mg 50 mg PO DAILY 90 days #90 tabs 04/28/24 tablet ondansetron 4 mg disintegrating 4 mg PO Q8H PRN nausea and 05/11/24 tablet vomiting #10 tabs melatonin 10 mg capsule 20 mg (2 x 10 mg) PO BEDTIME #90 06/11/24 caps clindamycin phosphate 1 % lotion 1 appl topical BID #60 mL 06/24/24 oxycodone 5 mg tablet 5 mg PO Q6H PRN pain #8 tabs 07/18/24 Allergies Allergy/AdvReac Type Severity Reaction Status Date / Time ibuprofen Allergy Severe Unknown Verified 07/18/24 18:52 nifedipine Allergy Intermediate hives, leg Verified 07/18/24 18:52 edema Review of Systems 2 Review of Systems: Yes all other systems are reviewed and are negative PMFSH Past Medical History Medical History Marginal ulcer ESRD (end stage renal disease) ESRD on dialysis Smoker End stage chronic kidney disease Moderate major depression Physical exam Spondylosis without myelopathy or radiculopathy, lumbar region Spinal stenosis 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 Lumbar back pain with radiculopathy affecting left lower extremity Physical exam (~02/14/21) Peritoneal dialysis catheter in place Polyarthralgia Dyslipidemia Family history of ovarian cancer Abnormal mammogram of right breast Angina pectoris syndrome Chest pain Constipation Nephrosclerosis Renal interstitial fibrosis Obesity (BMI 30-39.9) Back pain GERD (gastroesophageal reflux disease) History of headache HTN (hypertension) Surgical History History of sleeve gastrectomy S/P arteriovenous (AV) graft placement Fistula Hx of colonoscopy Hx of hysterectomy Hx of tubal ligation History of endometrial ablation Family History Family History Father Asthma Mother Asthma Hypertension Ovarian cancer Maternal Grandfather Myocardial infarction Paternal Grandmother Stroke Social History Social History Household Members: Children Household Members Other:: 30 year old special needs son Housing: Apartment Are you a primary career development director to a significant other at home: No Do you presently have visiting nurse or other home services: Yes Alcohol intake: never Comment: low fall risk Patient Tobacco Use Status: Former Tobacco user Tobacco use type: Cigarette Cigarette Packs Per Day: 1 Cigarettes Per Day: 20.0 Years Smoked: 10+ Smoked in Last 30 Days: No e-Cigarette/Vaping Use: Never Used Second Hand Smoke Exposure: Yes Use of substances other than those prescribed or required for medical reasons: No Substance Use Type: Caffiene Advance Directives: Yes Advance Directives on File: Yes Advance Directives Date on File: 04/27/20 Patient : No service: No Current occupational status: employed Cognitive needs: No Hearing needs: No Vision needs: Yes (reading glasses) Physical Exam ED Vital Signs: Vital Signs - 24 hr 07/18/24 18:50 07/18/24 20:18 07/18/24 22:01 Temperature 98.2 F Pulse Rate 87 106 H 104 H Respiratory Rate 18 12 Blood Pressure 233/132 H 161/97 H 111/75 Pulse Oximetry 98 94 Oxygen Delivery Method Room Air Room Air 07/18/24 22:25 07/18/24 22:25 07/18/24 23:03 Temperature 97.7 F Pulse Rate 107 H 87 Respiratory Rate 17 Blood Pressure 128/81 128/81 143/84 H Pulse Oximetry 95 Oxygen Delivery Method Room Air BMI result Body Mass Index 22.5 Const Other: The patient is a chronically ill-appearing 53-year-old who was awake and alert. She said that she was quite uncomfortable and she looked somewhat unwell. HENMT Other: face is symmetrical. Mucous membranes moist. Eyes General: appearance normal, both eyes and all related structures Neck Neck: Yes normal visual inspection and Yes full ROM Resp Effort & Inspection: normal respiratory effort Auscultation: clear to auscultation bilaterally Cardio Rate: regular rate Rhythm: regular rhythm Heart sounds: S1 normal heart sound present and S2 normal heart sound present GI Other: The patient had tenderness in the epigastrium. No definite rebound or guarding. Skin Other: Skin is pale and dry Neuro Other: the patient was awake and alert. She seemed somewhat distracted by discomfort but otherwise had a normal mental status. Cranial nerves are grossly intact. She moves her extremities normally and symmetrically. Extrem Other: No peripheral edema. No calf swelling or tenderness Medications Administered Discontinued Medications Generic Name Dose Route Start Last Admin Trade Name Freq PRN Reason Stop Dose Admin Carvedilol 6.25 mg 07/18/24 21:38 07/18/24 22:25 Carvedilol 6.25 Mg Tablet PO 07/18/24 21:39 6.25 mg ONCE ONE Administration Protocol Droperidol 1.25 mg 07/18/24 19:25 07/18/24 19:33 Droperidol 5 Mg/2 Ml Vial IVPUSH 07/18/24 19:26 1.25 mg ONCE ONE Administration Gabapentin 400 mg 07/18/24 21:38 07/18/24 22:25 Gabapentin 400 Mg Capsule PO 07/18/24 21:39 400 mg ONCE ONE Administration Hydromorphone HCl 0.5 mg 07/18/24 19:25 07/18/24 19:33 Hydromorphone Hcl 0.5 Mg/0.5 Ml Syringe IVPUSH 07/18/24 19:26 0.5 mg ONCE ONE Administration Protocol Midodrine 5 mg 07/18/24 22:15 07/18/24 22:25 Midodrine Hcl 5 Mg Tablet PO 07/18/24 22:16 5 mg ONCE ONE Administration Pantoprazole Sodium 80 mg 07/18/24 19:25 07/18/24 19:33 Pantoprazole Sodium 40 Mg/10 Ml Vial IVPUSH 07/18/24 19:26 80 mg ONCE ONE Administration Sucralfate 1 gm 07/18/24 22:49 07/18/24 23:02 Sucralfate Oral Suspension 1 Gm/10 Ml Oral.Susp PO 07/18/24 22:50 1 gm ONCE ONE Administration Medical Decision Making Medical Decision Making [facility] Narrative: the patient is a 54-year-old woman who presents with the acute upper abdominal pain that began yesterday. It was associated with nausea and vomiting. She was concerned that she might be having coffee-ground stool. This presentation sounds very similar to her presentation here 4 days ago and very similar to episodes described in her last hospitalization. She has a history of bariatric surgery and subsequent gastric ulcers. The patient was initially quite hypertensive. She was initially treated symptomatically with droperidol and hydromorphone. Her significant hypertension resolved. she was also given IV pantoprazole. She felt much better. She was then able to tolerate oral medications. She was given her usual evening oral medications. This included midodrine which she is given 4 problems with a chronic hypotension. She is also on carvedilol. On re-examination she had no abdominal tenderness and she looks quite well. My overall impression is that this is yet another episode of a series of recurrent episodes of severe upper abdominal pain. her hemoglobin today is stable, even slightly higher than 4 days ago. I do not think she is having an active upper GI bleed. She felt well enough for discharge although she requested pain medications that she might be able to use in case she has another of these episodes. She was given a small prescription for oxycodone tablets and is encouraged to follow up with her wash barrel leader and her PCP. Lab Data 07/18/24 19:11 07/18/24 19:11 Labs: Lab Results 07/18/24 Range/Units 19:11 WBC 15.9 H (4.8-10.8) X10*3/uL RBC 4.75 (4.20-5.50) X10*6/uL Hgb 14.6 (12.0-16.0) g/dl Hct 44.0 (37.0-47.0) % MCV 92.6 (80.0-98.0) fL MCH 30.7 (27.0-33.0) pg MCHC 33.2 (31.0-35.0) g/dl RDW 13.7 (11.0-16.0) % Plt Count 266 (160-400) X10*3/uL MPV 9.8 (9.4-12.3) fL Immature Gran % (Auto) 0.3 (0.0-0.4) % Neut % (Auto) 89.1 H (45-73) % Lymph % (Auto) 6.0 L (20-40) % [place] % (Auto) 4.2 (2-11) % Eos % (Auto) 0.1 (0-4) % Baso % (Auto) 0.3 (0-2) % Lymph # (Auto) 1.0 L (1.2-4.9) X10*3/uL [place] # (Auto) 0.7 (0.1-1.2) X10*3/uL Eos # (Auto) 0.0 (0.0-0.4) X10*3/uL Baso # (Auto) 0.1 (0.0-0.2) X10*3/uL Abs Immat Gran (auto) 0.05 H (0.00-0.03) X10*3/uL Absolute Neuts (auto) 14.2 H (2.0-8.3) x10*3/uL Absolute Nucleated RBC 0.000 (0.0-0.012) X10*3/uL Nucleated RBC % (auto) 0.0 (0.0-0.2) /100WBC PT 11.0 (10.9-12.4) SEC INR 1.0 (0.9-1.1) Sodium 136 (135-145) mmol/L Potassium 4.7 (3.3-5.1) mmol/L Chloride 103 (96-108) mmol/L Carbon Dioxide 25 (22-29) mmol/L Anion Gap 13 (12-20) BUN 28 H (9-16) mg/dL Creatinine 5.52 H* (0.5-1.4) mg/dL Estim Creat Clear Calc 10.7 Estimated GFR 8 Random Glucose 111 (60-115) mg/dL Calcium 10.0 (8.4-10.2) mg/dL Total Bilirubin 0.4 (0.0-1.0) mg/dL AST 16 (5-31) U/L ALT 9 (0-31) U/L Alkaline Phosphatase 213 H (39-117) U/L C-Reactive Protein 0.32 (< or = 0.50) mg/dL B-Natriuretic Peptide 912 H (<100) pg/mL Total Protein 7.3 (6.5-8.0) g/dL Albumin 4.2 (3.5-5.0) g/dL Lipase 30 (8-78) U/L Discharge Plan Discharge Clinical Impression: Abdominal pain, Vomiting Patient Disposition: Home, Self-Care Additional Instructions: Please resume your regular medications when you get home. You have already received your evening dose tonight for gabapentin, carvedilol, and midodrine. Please plan on going to dialysis tomorrow as scheduled. Please plan on contacting your primary care doctor and your wash barrel leader for a follow up appointment soon. You seemed to be having these episodes of significant abdominal pain. Please follow up with your wash barrel leader to discuss these episodes. I have sent a prescription for oxycodone tablets to your pharmacy. Return to the emergency room if significantly worse. Prescriptions: New oxycodone 5 mg tablet 5 mg PO Q6H PRN (Reason: pain) Qty: 8 0RF Rx Instructions: Partial Fill upon patient request. No Action thiamine HCl (vitamin B1) 100 mg tablet 100 mg PO DAILY 90 Days Qty: 90 0RF vitamin A 2,400 mcg capsule 2,400 mcg PO DAILY 90 Days Qty: 90 1RF citalopram 20 mg tablet 20 mg PO DAILY 90 Days Qty: 90 1RF carvedilol 6.25 mg tablet 6.25 mg PO BID 90 Days Qty: 180 1RF gabapentin 400 mg capsule 400 mg PO BID 90 Days Qty: 180 1RF pyridoxine (vitamin B6) 50 mg tablet 50 mg PO DAILY 90 Days Qty: 90 1RF cyanocobalamin (vitamin B-12) 1,000 mcg Tablet 1,000 mcg PO DAILY sucralfate 1 gram tablet 1 g PO BID acetaminophen [Mapap (acetaminophen)] 500 mg capsule 1,000 mg PO Q8H PRN (Reason: Pain) Clinisol SF 15 % 15 % parenteral solution 0.5 ea IV MOWEFR@0900 Rx Instructions: DIALYSIS MEDICATION Bariatric Multivitamins 45 mg iron- 800 mcg-120 mcg Capsule 1 cap PO DAILY fluticasone propionate 50 mcg/actuation spray,suspension 1 spray intranasal DAILY PRN (Reason: Allergy Symptoms) Rx Instructions: administer into each nostril ondansetron 4 mg tablet,disintegrating 4 mg PO Q8H PRN (Reason: nausea and vomiting) Qty: 10 0RF zinc acetate 50 mg (zinc) Capsule 100 mg PO DAILY omeprazole 40 mg capsule,delayed release(DR/EC) 40 mg PO BID@0630,1630 meclizine 12.5 mg Tablet 12.5 mg PO TID PRN (Reason: Nausea And Vomiting) ergocalciferol (vitamin D2) [Vitamin D2] 1,250 mcg (50,000 unit) capsule 1,250 mcg PO PLEITEZ sevelamer carbonate 800 mg tablet 1,600 mg PO BIDWM@1200,1700 ferrous sulfate 325 mg (65 mg iron) tablet,delayed release (DR/EC) 325 mg PO DAILY midodrine 5 mg tablet 5 mg PO DAILY PRN (Reason: Hypotension) melatonin 10 mg capsule 20 mg PO BEDTIME Qty: 90 0RF clindamycin phosphate 1 % lotion 1 appl topical BID Qty: 60 0RF Referrals: Yuliya Quinones ANP-C [Nurse Practitioner] - Rozina Nicole MD [Physician] - Interventions: ED Discharge Assessment Last Done: 07/18/24 23:03 Discharge Date/Time: 07/18/24 23:16 Print Language: Lithuanian
[2024-07-18 19:27] LABS: MANUAL DIFF FLAG NO
[2024-07-18] MEDS: HYDROmorphone HCl 0.5 MG/0.5 ML SYRINGE IVPUSH (19:33)
[2024-07-18] MEDS: Pantoprazole Sodium 40 MG/10 ML VIAL 80 MG IVPUSH (19:33)
[2024-07-18] MEDS: droPERidol 5 MG/2 ML VIAL 1.25 MG IVPUSH (19:33)
[2024-07-18 19:49] LABS: Basophils Absolute Auto 0.1 X10*3/uL (0.0-0.2); Basophils Percent Auto 0.3 % (0-2); Eosinophils Percent Auto 0.1 % (0-4); Hemoglobin 14.6 g/dl (12.0-16.0); Imm Gran Abs Auto 0.05 X10*3/uL (0.00-0.03); Imm Gran Pct Auto 0.3 % (0.0-0.4); Mean Corpuscular HGB Conc 33.2 g/dl (31.0-35.0); Mean Corpuscular Hemoglobin 30.7 pg (27.0-33.0); Mean Corpuscular Volume 92.6 fL (80.0-98.0); Mean Platelet Volume 9.8 fL (9.4-12.3); Monocytes Absolute Auto 0.7 X10*3/uL (0.1-1.2); Monocytes Percent Auto 4.2 % (2-11); Neutrophils Absolute Auto 14.2 x10*3/uL (2.0-8.3); Neutrophils Percent Auto 89.1 % (45-73); Platelet Count 266 X10*3/uL (160-400); Red Blood Count 4.75 X10*6/uL (4.20-5.50); Red Cell Distribution Width 13.7 % (11.0-16.0); White Blood Count 15.9 X10*3/uL (4.8-10.8)
[2024-07-18 19:53] LABS: Alanine Aminotransferase 9 U/L (0-31); Albumin Level 4.2 g/dL (3.5-5.0); Alkaline Phosphatase 213 U/L (39-117); Anion Gap 13 (12-20); Aspartate Amino Transferase 16 U/L (5-31); Bilirubin Total 0.4 mg/dL (0.0-1.0); Blood Urea Nitrogen 28 mg/dL (9-16); Carbon Dioxide 25 mmol/L (22-29); Chloride 103 mmol/L (96-108); Creatinine Clr Calc Pharmacy 10.7; Estimated Glomerular Filt Rate 8; Glucose Random 111 mg/dL (60-115); Lipase 30 U/L (8-78); Potassium 4.7 mmol/L (3.3-5.1); Sodium 136 mmol/L (135-145); Total Protein 7.3 g/dL (6.5-8.0)
[2024-07-18 19:55] LABS: B Type Natriuretic Peptide 912 pg/mL (<100)
[2024-07-18 20:18] VITALS: BP 161/97; PULSE 106; RESP 12; O2SAT 94
[2024-07-18 21:18] LABS: C Reactive Protein 0.32 mg/dL (< or = 0.50)
--- NOTE | 2024-07-18 21:33 | PC.NURSE ---
Assumed care of pt at 2100. PT resting quietly in no acute distress, arousable to name and light touch. PT states she has stopped vomiting. VSS- bp decreased now 128/83 PT able to make urine, informed her that a urine sample is needed when she is able. Call simon within reach. Plan of care ongoing
[2024-07-18 22:01] VITALS: BP 111/75; PULSE 104
[2024-07-18 22:25] VITALS: BP 128/81; PULSE 107
[2024-07-18] MEDS: carvediloL 6.25 MG TABLET PO (22:25)
[2024-07-18] MEDS: Midodrine HCl 5 MG TABLET PO (22:25)
[2024-07-18] MEDS: Gabapentin 400 MG CAPSULE PO (22:25)
[2024-07-18] MEDS: Sucralfate Oral Suspension 1 GM/10 ML ORAL.SUSP PO (23:02)
[2024-07-18 23:03] VITALS: BP 143/84; PULSE 87; RESP 17; TEMP 36.5; O2SAT 95
== END 2024-07-18 23:16 | disposition home or self-care (01) ==
PROVIDERS: Emergency Provider Emergency Medicine
DX: R10.9 Unspecified abdominal pain (principal); R11.2 Nausea with vomiting, unspecified; I12.0 Hypertensive chronic kidney disease with stage 5 chronic kidney disease or end stage renal disease; N18.6 End stage renal disease; Z99.2 Dependence on renal dialysis; E78.5 Hyperlipidemia, unspecified; Z87.891 Personal history of nicotine dependence; Z79.899 Other long term (current) drug therapy
CPT/HCPCS: 36415; 80053; 83690; 83880; 85025; 85610; 86140; 96374; 96375; 99284; J1171; J1790; J2470

== ENCOUNTER 2024-07-29 11:05 | Outpatient (AMB) | payer MEDICARE, MEDICAID, SELFPAY ==
--- NOTE | 2024-07-29 11:37 | MHC.OFFVIS ---
Vital Signs 07/29/24 11:39 Weight 143 lb BP 149/75 H Blood Pressure Location Lt brachial Position Sitting Respiration 18 Pulse 76 Pulse Source Pulse Oximeter Pulse Oximetry (%) 100 Oxygen Delivery Method Room Air Intake Visit Reasons: Back pain/missed on 06/10 Vehicle Glass Technician Required: No Allergies ibuprofen Allergy (Severe, Verified 07/29/24 11:41) Unknown nifedipine Allergy (Intermediate, Verified 07/29/24 11:41) hives, leg edema HPI Comments Details: Meliza is in my office today to request me to perform again transforaminal epidural steroid injection on her. She reported that last time she had an injection which was not working good for her because she fell. She insists on repeating the injection. I decided to schedule her for injection 1 more time and see if this procedure will help her pain. I explained to the patient that if this time the injection will not be helping with her pain syndrome she would need to consider spinal cord stimulator [employer]. Brochures of [employer] spinal cord stimulator were given to the patient. Psychological evaluation was explained to the patient. This patient currently is on hemodialysis she is receiving dialysis on Friday 3 hours at a time. One more repeat transforaminal epidural steroid injection was done on 06/10/2023. She reports pain relief for 14 days only. She consider short lived pain relief because she fell on the ground and her pain became worse. She relates pain exacerbation to some trauma she recently fell however the trauma was not very prominent and unlikely it would cause increased pain for prolonged period of time. Before that she had several epidural steroid injections as below the last 1 was on 02/11/2023. Those injections initially alleviated her pain in significant extent. However unfortunately now we need to think about neuromodulation to help her pain. Spinal cord stimulator discussed with the patient. She is scheduled for the surgery with bariatric surgeon to do a sleeve revision. It looks like that her sleeve surgery was too tight and the patient is constantly nauseous and unable to hold food down. Her surgery scheduled for 07/09/2023. Psychological evaluation related to SCS was discussed with the patient. Patient stated that she can not afford the co-pay for [employer] psychological evaluation. I then recommended her to go back to her [facility] counselor and request psychological evaluation to be done in the office of her counselor. She reports axial back pain with radiation into bilateral lower extremities. I now believe that the best way to treat her condition would be Secured Mail SCS. 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 Lumbar back pain with radiculopathy affecting left lower extremity Physical exam (~02/14/21) Peritoneal dialysis catheter in place Polyarthralgia Dyslipidemia Family history of ovarian cancer Abnormal mammogram of right breast Angina pectoris syndrome Chest pain Constipation Nephrosclerosis Renal interstitial fibrosis Obesity (BMI 30-39.9) Back pain GERD (gastroesophageal reflux disease) History of headache HTN (hypertension) Surgical History History of sleeve gastrectomy S/P arteriovenous (AV) graft placement Fistula Hx of colonoscopy Hx of hysterectomy Hx of tubal ligation History of endometrial ablation Family History Father Asthma Mother Asthma Hypertension Ovarian cancer Maternal Grandfather Myocardial infarction Paternal Grandmother Stroke Social History Household Members: Children Household Members Other:: 30 year old special needs son Housing: Apartment Are you a primary customer care voice consultant to a significant other at home: No Do you presently have visiting nurse or other home services: Yes Alcohol intake: never Comment: low fall risk Patient Tobacco Use Status: Former Tobacco user Tobacco use type: Cigarette Cigarette Packs Per Day: 1 Cigarettes Per Day: 20.0 Years Smoked: 10+ e-Cigarette/Vaping Use: Never Used Second Hand Smoke Exposure: Yes Substance Use Type: Caffiene Advance Directives Date on File: 04/27/20 service: No Current occupational status: employed Cognitive needs: No Hearing needs: No Vision needs: Yes (reading glasses) Female Reproductive History Menstrual Age of Menarche: 10 Review of Systems Const All systems reviewed & are unremarkable except as noted in HPI and below Physical Exam Vital Signs: Last Vital Signs Pulse 76 07/29/24 11:39 Resp 18 07/29/24 11:39 BP 149/75 H 07/29/24 11:39 Pulse Ox 100 07/29/24 11:39 Oxygen Delivery Method Room Air 07/29/24 11:39 Const General: cooperative, comfortable and no acute distress Orientation/consciousness: patient oriented x3 Eyes General: appearance normal, both eyes and all related structures Pupils: Equal, round and reactive pupils present EOM: EOMs intact bilaterally Neck Neck: Yes full ROM Chest Chest palpation & inspection: normal inspection of the chest Resp Effort & Inspection: normal respiratory effort, able to speak in complete sentences and normal respiratory pattern Cardio Jugular venous distension: no JVD GI Other: On inspection a graft on the right upper extremity right arm. Back/Spine/Pelvis Other: Tenderness on palpation on paraspinal spinal region of lumbar spine. SLR positive on the right. [place] positive on the right. Neuro General: patient oriented x3 and gait normal Cranial nerves: Yes CN's II-XII intact bilaterally, Yes Equal, round and reactive pupils present and Yes Ability to bilaterally elevate shoulders present Gait exam (Neuro): Normal gait present Motor exam (neuro): 5/5 motor strength present throughout Extrem General: No pedal edema Psych Speech and movement: Normal speech and movement present Affect: normal affect Attitude: cooperative Thought process: Normal thought process present Thought content: Normal thought content present Insight: Good insight present (Psych) Judgement: Good judgement present (Psych) Assessment & Plan Assessment & Plan (1) ESRD on dialysis: Comment: [id number] Code(s): N18.6 - End stage renal disease; Z99.2 - Dependence on renal dialysis Category: Medical (2) 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 She went for gastric sleeve surgery and she reported unable to consume any food. She goes for revision on 07/09/2023. She lost lots of weight. She is no longer morbidly obese. She is ESRD on HD Friday. MRI from her previous practitioners the results are dictated as above. She had classical picture of radiculopathy on the right and at the same time it is corresponding to L4-5 disc herniation on the right. Originally transforaminal L4-5 epidural steroid injection resulted in 1 year of pain relief however the effectiveness of epidural steroid injections is very minimal. SCS [employer] was discussed. Her pain is axial back pain with radiation into bilateral lower extremities. The patient agreed to go for a trial. She went for 2nd transforaminal L4-5 epidural steroid injection on the right however the pain relief was short. She explain the shortness of the pain relief due to trauma she received after the procedure. I explained to her that it is unlikely but I promised her that I will perform 1 more L4-5 right-sided transforaminal epidural steroid injection. I explained to the patient if this will not alleviate her pain very careful consideration of [employer] spinal cord stimulation needs to be done on her part. 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
[2024-07-29 11:39] VITALS: BP 149/75; PULSE 76; RESP 18; O2SAT 100
--- OUTSIDE RECORDS SUMMARY | 2024-07-29 12:39 | XMS_ITS | Clinical Summary ---
Author Organization 175 [facility] Address [address] [place] [address] Phone Care Team Providers Care [employer] Reservoir Keeper Name Role Phone Sam Lynch MD Primary [...] 32.9 in adult 11/26/2023 Acute kidney failure ([facility]) 04/26/2021 Benign essential hypertension 04/26/2021 Dependence on renal dialysis ([facility]24) 04/26 Disorder of kidney and ureter, unspecified 04/26 ESRD on hemodialysis ([facility] [place]24, [facility] V28) 04/26/2021 Hypertensive heart and chron ic kidney disease with heart failure and stage 1 through stage 4 chronic kidney disease, or unspecified chronic kidney disease ([facility]24, [facility] V28) 04/26/2021 Vitamin D deficiency 04/26/2021 Resolved Problems Problem Noted Date Diagnosed Date Resolved Date Upper GI bleed 06/30/2024 07/03/2024 Encounters Date Type Department Care Team Description 07/15/2024 2:00 PM EDT Office Visit Bariatric Surgery - [facility] [address] [place] [phone] Gerson Rosen MD Marginal ulcers (Primary Dx) 07/07/2024 Telephone Gastroenterology - 299 [facility] 299 [facility] [address] [place] [phone] Chapo Michelle ID Results 07/02/2024 7:25 AM EDT Anesthesia Event [facility] Endoscopy [address] [place] [phone] Dayna Clements MD Claudio, Raymund, CRNA 06/30/2024 8:21 AM EDT - 07/03/2024 6:47 PM EDT Hospital Encounter [facility] Medical Surgical Unit [address] [place] [phone] Khari, MD Donaldo Ridley Nermina, MD Zipagan, James T, MD Upper GI bleed (Primary Dx) Discharge Disposition: Home or Self Care 06/14/2024 Telephone Bariatric Surgery - [address] [place] [address] Gerson Rosen MD from Last 3 Months Surgical History Surgery Date Site/Laterality Comments OTHER SURGICAL HISTORY PROCEDURE: DIALYSIS ACCESS SYSTEM LAPAROSCOPIC GASTRIC BANDING PROCEDURE: LAP ADJUSTABLE GASTRIC BAND HYSTERECTOMY PROCEDURE: HISTORICAL HYSTERECTOMY OTHER SURGICAL HISTORY PROCEDURE: COLONOSCOPY LESION REMOVAL OTHER SURGICAL HISTORY 06/13/2021 Left PROCEDURE: NE CRTJ ARVEN FSTL XCP DIR ARVEN ANAST [...] Sign Reading Time Taken Comments Blood Pressure 129/64 07/15/2024 2:00 PM EDT Pulse 98 07/15/2024 2:00 PM EDT Temperature 36.4 C (97.5 F) 07/15/2024 2:00 PM EDT Respiratory Rate 14 07/03/2024 3:09 PM EDT Oxygen Saturation 100% 07/03/2024 5:04 PM EDT Inhaled Oxygen Concentration - - Weight 58.5 kg (129 lb) 07/15/2024 2:00 PM EDT Height 165.1 cm (5' 5 ) 07/15/2024 2:00 PM EDT Body Mass Index 21.47 07/15/2024 2:00 PM EDT Plan of Treatment Upcoming Encounters Date Type Department Care Team (Late st Contact Info) Description 09/01/2024 3:15 PM EDT Office Visit Bariatric Surgery [facility] [address] [phone] Grace Abarca PA [address] [address] 11/18/2024 1:15 PM EDT Office Visit Bariatric Surgery [facility] [address] [phone] Gerson Rosen MD [address] [address] Health Maintenance Due Date Last Done Comments Breast Cancer Screening 1970 DTaP,Tdap,and Td Vaccines (1 - Tdap) 07/26/1990 Zoster Vaccines (1 of 2) 07/26/1990 Cervical Cancer Screening: Pap Smear 07/26/1992 Colorectal Cancer Screening: Colonoscopy 01/20/2022 Depression Screening 01/20/2022 HIV Screening 01/20/2022 Medicare Annual Wellness Visit 01/20/2022 Social Influencers of Health Screening 01/20/2022 Hepatitis B Vaccines (3 of 3 - 19+ 3-dose series) 09/17/2022 06/21/2022, 03/20/2022 COVID-19 Vaccine ( - season) 2023 01/19/2021, 07/05/2020, 05/31/2020 Hypertension/CHF/CAD Annual [...] EDT Upper GI bleed HEMODIALYSIS INPATIENT Routine 12:16 PM EDT HEMODIALYSIS INPATIENT Routine 11:55 AM EDT ECG 12-LEAD Routine 07/01/2024 [...] WO CONTRAST STAT 06/30/2024 9:30 AM EDT TYPE AND SCREEN STAT 06/30/2024 8:46 AM EDT CBC WITH AUTO DIFFERENTIAL STAT [...] * Lavender tube (07/02/2024 10:20 AM EDT) [facility] Extra Tube Hold for add-ons. 07/02/2024 12:01 PM EDT [facility] Comment:Auto resulted. Blood Venous blood specimen / Unknown Venipuncture / Unknown 07/02/2024 10:20 AM EDT 07/02/2024 10:24 AM EDT Sergo Wallis MD LAB BLOOD ORDERABLES Final Re sult [facility] [address] [place] [address], * (ABNORMAL) Basic metabolic panel (07/02/2024 10:20 AM EDT) Only the most recent of2 resultswithin the time period is included. [facility] Sodium 130(L) 133 - 145 mmol/L LAB CHEMISTRY METHOD 07/02/2024 11:07 AM EDT [facility] Potassium 4.7 3.5 - 5.5 mmol/L LAB CHEMISTRY METHOD 07/02/2024 11:07 AM [facility] Chloride 94(L) 96 - 110 mmol/L LAB CHEMISTRY METHOD 07/02/2024 11:07 AM [facility] CO2 29 21 - 32 mmol/L LAB CHEMISTRY METHOD 07/02/2024 11:07 AM [facility] Anion Gap 7 3 - 11 LAB CHEMISTRY METHOD 07/02/2024 11:07 AM [facility] Glucose 231(H) 70 - 100 mg/dL LAB CHEMISTRY METHOD 07/02/2024 11:07 AM [facility] BUN 16 5 - 25 mg/dL LAB CHEMISTRY METHOD 07/02/2024 11:07 AM [facility] Creatinine 5.36(H) 0.50 - 1.10 mg/dL LAB CHEMISTRY METHOD 07/02/2024 11:07 AM [facility] eGFR 9(L) >=60 mL/min/1. 73m2 LAB CHEMISTRY METHOD 07/02/2024 11:07 AM [facility] Comment:Calculation based on the Chronic Kidney Disease Epidemiology Collaboration (CKD-EPI) equation refit without adjustment for race. BUN/Creatinine Ratio 3.0 LAB CHEMISTRY METHOD 07/02/2024 11:07 AM [facility] Calcium 9.6 8.5 - 10.5 mg/dL LAB CHEMISTRY METHOD 07/02/2024 11:07 AM [facility] Blood Venous blood specimen / Unknown Venipuncture / Unknown 07/02/2024 10:20 AM EDT 07/02/2024 10:23 AM EDT us Myrna APRKER LAB BLOOD ORDERABLES Final R esult [facility] [address] [place] [address], * (ABNORMAL) CBC auto differential (07/02/2024 8:43 AM EDT) Only the most recent of2 resultswithin the time period is included. [facility] Signature WBC 5.4 4.8 - 10.8 K/mcL LAB HEMETOLOGY METHOD 07/02/2024 9:12 AM [facility] RBC 4.10 3.80 - 4.80 M/mcL LAB HEMETOLOGY METHOD 07/02/2024 9:12 AM [facility] Hemoglobin 12.6 11.5 - 16.0 g/dL LAB HEMETOLOGY METHOD 07/02/2024 9:12 AM [facility] Hematocrit 39.5 35.0 - 47.0 % LAB HEMETOLOGY METHOD 07/02/2024 9:12 AM [facility] MCV 96.6 79.0 - 98.0 FL LAB HEMETOLOGY METHOD 07/02/2024 9:12 AM [facility] MCH 30.8 27.0 - 32.0 pcg LAB HEMETOLOGY METHOD 07/02/2024 9:12 AM [facility] MCHC 31.9(L) 32.0 - 37.0 g/dL LAB HEMETOLOGY METHOD 07/02/2024 9:12 AM [facility] RDW 13.2 11.0 - 15.0 % LAB HEMETOLOGY METHOD 07/02/2024 9:12 AM [facility] Platelets 208 130 - 400 K/mcL LAB HEMETOLOGY METHOD 07/02/2024 9:12 AM [facility] MPV 10.4 7.0 - 11.0 FL LAB HEMETOLOGY METHOD 07/02/2024 9:12 AM [facility] NRBC 0.0 <1.0 % LAB HEMETOLOGY METHOD 07/02/2024 9:12 AM [facility] NRBC Absolute 0.00 <0.10 K/mcL LAB HEMETOLOGY METHOD 07/02/2024 9:12 AM [facility] Neutrophils Relative 60.0 % LAB HEMETOLOGY METHOD 07/02/2024 9:12 AM [facility] Lymphocytes Relative 26.7 % LAB HEMETOLOGY METHOD 07/02/2024 9:12 AM [facility] Monocytes Relative 7.9 % LAB HEMETOLOGY METHOD 07/02/2024 9:12 AM [facility] Eosinophils Relative 4.1 % LAB HEMETOLOGY METHOD 07/02/2024 9:12 AM [facility] Basophils Relative 0.9 % LAB HEMETOLOGY METHOD 07/02/2024 9:12 AM [facility] Immature Granulocytes Relative 0.4 % LAB HEMETOLOGY METHOD 07/02/2024 9:12 AM [facility] Neutrophils Absolute 3.21 1.50 - 7.00 K/mcL LAB HEMETOLOGY METHOD 07/02/2024 9:12 AM [facility] Lymphocytes Absolute 1.43 1.00 - 5.00 K/mcL LAB HEMETOLOGY METHOD 07/02/2024 9:12 AM [facility] Monocytes Absolute 0.42 0.20 - 1.00 K/mcL LAB HEMETOLOGY METHOD 07/02/2024 9:12 AM [facility] Eosinophils Absolute 0.22 0.00 - 0.50 K/mcL LAB HEMETOLOGY METHOD 07/02/2024 9:12 AM [facility] Basophils Absolute 0.05 0.00 - 0.20 K/mcL LAB HEMETOLOGY METHOD 07/02/2024 9:12 AM [facility] Immature Granulocytes Absolute 0.02 0.00 - 0.03 K/mcL LAB HEMETOLOGY METHOD 07/02/2024 9:12 AM EDT [facility] Blood Venous blood specimen / Unknown Venipuncture / Unknown 07/02/2024 8:43 AM EDT 07/02/2024 8:48 AM EDT Myrna PARKER LAB BLOOD ORDERABLES Final R esult [facility] [address] [place] [address], * EGD Anesthesia - MAC; [facility] ENDOSCOPY (07/02/2024 7:46 AM EDT) Anatomical Region Laterality Modality Other 07/02/2024 7:31 AM EDT Impressions 07/02/2024 7:54 AM EDT - Gastric bypass with a normal-sized pouch and intact staple line. Gastrojejunal anastomosis characterized by erosion. - Gastritis. Biopsied. Recommendation: - Resume previous diet. - Continue present medications. - Await pathology results. Narrative 07/02/2024 7:[address] [facility] Patient Name: [...] endoscope was passed under direct vision. Throughout the procedure, the patient's blood pressure, pulse, and oxygen saturations were monitored continuously. The Olympus Gastroscope was introduced through the mouth, and advanced to the efferent jejunal loop. The upper GI endoscopy was accomplished without difficulty. The patient tolerated the procedure well. Findings: Evidence of a gastric bypass was found. A gastric pouch with a normal size was found. The staple line appeared intact. The gastrojejunal anastomosis was characterized by erosion. This was traversed. The jsvtf-sg-vrgnpcs limb was characterized by ulceration. The kvcxoulp-tg-lqwieaj limb was not examined as it could not be found. The excluded stomach was not examined as it could not be traversed. The ulcers, and clips are in the antonia of the small bowel, the margins of the anastomosis actually with just erosions. Three clips remain. Diffuse moderate inflammation characterized by congestion (edema), erythema and friability was found in the entire examined stomach. Biopsies were taken with a cold forceps for histology. This was most unusual, see the images. ??Underlying portal hypertension, ???related to dialysis. Markedly thickened folds, almost appearance of varices (gastric) with mucosa swollen with multiple superficial vessels. I did take multiple biopsies. Procedure Code(s): --- Professional --- 37850, Esophagogastroduodenoscopy, flexible, transoral; with biopsy, single or multiple Diagnosis Code(s): --- Professional --- K29.70, Gastritis, unspecified, without bleeding K28.9, Gastrojejunal ulcer, unspecified as acute or chronic, without hemorrhage or perforation CPT copyright 202 [employer] [place] [employer]. All rights reserved. The codes documented in this report are preliminary and upon physician coder review may be revised to meet current compliance requirements. MD Ari Collado MD 07/02/2024 7:54:37 AM This report has been signed electronically.Ari Davis MD Number of Addenda: 0 Note Initiated On: 07/02/2024 7:31 AM Scope In: Scope Out: Endoscopy Department at [facility] - [address] [place] [phone] Procedure Note Ari Davis MD - 07/02/2024 [facility] GI Patient Name: [...] characterized by erosion. This was traversed. The qdpju-me-zzfgouf limb was characterized byulceration. The tjmyhetz-hh-hrjjsjt limb was not examined as it could [...] take multiplebiopsies. Procedure Code(s): --- Professional --- 89593, Esophagogastroduodenoscopy, flexible, transoral; with biopsy, single or multiple Diagnosis Code(s): --- Professional --- K29.70, Gastritis, unspecified, without bleeding K28.9, Gastrojejunal ulcer, unspecified as acute or chronic, without hemorrhage or perforation CPT copyright 2020 [employer] [place] [employer]. All rights reserved. The codes documented in this report are preliminary and upon physician coder reviewmay be revised to meet current compliance requirements. MD Ari Collado MD 07/02/2024 7:54:37 AM This report has been signed electronically.Ari Davis MD Number of Addenda: 0 Note Initiated On: 07/02/2024 7:31 AM Scope In: Scope Out: Endoscopy Department at [facility] - [address] [place] [phone] IMPRESSION: - Gastric bypass with a normal-sized [...] type gastritis identified. 07/06/2024 12:39 PM EDT [facility] Gross Description A. Stomach, gastric [...] survive processing. dvb/DG 07/06/2024 12:39 PM EDT [facility] Disclaimer Unless otherwise specified, all tissue is 10% NB formalin fixed and paraffin embedded. 07/06/2024 12:39 PM EDT [facility] Tissue Stomach structure / Unknown 07/02/2024 7:42 AM EDT 07/02/2024 9:56 AM EDT us Ari Davis MD LAB PATHOLOGY ORDERABLES Final Result [facility] [address] [place] [address], * ECG 12 lead (07/01/2024 5:38 AM EDT) [facility] Ventricular Rate ECG 74 BPM GEMUSE Atrial Rate 74 BPM GEMUSE P-R Interval 120 ms GEMUSE QRS Duration 76 ms GEMUSE Q-T Interval 406 ms GEMUSE QTc 450 ms GEMUSE P Wave [place] 30 degrees GEMUSE R [place] 16 degrees GEMUSE T [place] 53 degrees GEMUSE ECG Interpretation Normal sinus rhythm Normal ECG When compared with ECG of 04-NOV-2023 18:08, No significant change was found Confirmed by MD [facility] ([id number] on 07/02/2024 7:23:30 AM GEMUSE 07/01/2024 5:38 AM EDT 07/02/2024 7:23 AM EDT us Kristyn PARKER ECG ORDERABLES Final Result Performing Organization Address [facility]/ZIP Co de Phone Number GEMUSE * Hepatitis B surface antigen with reflex to confirmation (07/01/2024 5:19 AM EDT) [facility] Hepatitis B Surface Ag Negative Negative LAB CHEMISTRY METHOD 07/01/2024 10:19 AM EDT [facility] Blood Venous blood specimen / Unknown Venipuncture / Unknown 07/01/2024 5:19 AM EDT 07/01/2024 6:17 AM EDT Narrative [facility] - 07/01/2024 10:19 AM EDT Over the counter supplements containing high doses of biotin may interfere with this assay. If interference is suspected, patients shoud be retested after refraining from biotin supplements for 72 hours. us Sergo Wallis MD LAB BLOOD ORDERABLES Final Re sult Performing Organization Address City/[facility]/ZIP Co de Phone Number [facility] [address] [place] [address], * (ABNORMAL) Nicotine and cotinine (07/01/2024 5:19 AM EDT) [facility] Nicotine <2.0 <2.0 ng/mL 07/07/2024 4:39 AM EDT [facility] Cotinine 243.4(H) <2.0 ng/mL 07/07/2024 4:39 AM EDT [facility] Comment: Additional Reference Ranges: Active Tobacco Passive Abstinence User Exposure 2 Weeks and more Nicotine 30 - 50 ng/mL <2 ng/mL <2 ng/mL Cotinine 200 - 800 ng/mL <8 ng/mL <2 ng/mL Reference Ranges from: Clin. Chem.; 48:9699-7937 (2002) Direct any interpretive questions to the toxicology laboratory. This is for medical use only, it is not intended for forensic use. If applicable, any drug confirmation testing reported here was developed and the performance characteristics determined by [facility]. This confirmation testing has not been cleared or approved by the FDA. The laboratory is regulated under CLIA as qualified to perform high-complexity testing. This test is used for patient testing purposes. It should not be regarded as investigational or for research. Test performed at [facility], [address], [place], [place] [id number] Kim Castelan MD, PhD - Used [employer] Blood Venous blood specimen / Unknown Venipuncture / Unknown 07/01/2024 5:19 AM EDT 07/01/2024 6:17 AM EDT us Angela PARKER LAB BLOOD ORDERABLES Final Resu lt [facility] [address] [place], [place] [id number] * (ABNORMAL) Iron and TIBC (07/01/2024 5:19 AM EDT) [facility] Signature Iron 64 40 - 150 mcg/dL LAB CHEMISTRY METHOD 07/01/2024 7:34 PM EDT [facility] TIBC 191(L) 250 - 450 mcg/dL LAB CHEMISTRY METHOD 07/01/2024 7:34 PM EDT [facility] Iron Saturation 34 15 - 50 % LAB CHEMISTRY METHOD 07/01/2024 7:34 PM EDT [facility] Blood Venous blood specimen / Unknown Venipuncture / Unknown 07/01/2024 5:19 AM EDT 07/01/2024 6:17 AM EDT Sergo Wallis MD LAB BLOOD ORDERABLES Final Re sult Performing Organization Address [facility]/ZIP Co de Phone Number [facility] [address] [place] [address], [place] [phone] * (ABNORMAL) Hepatitis B surface antibody quantitative (07/01/2024 5:19 AM EDT) Pathologist [facility] Hepatitis B Surface Ab Positive (A) Negative LAB CHEMISTRY METHOD 07/01/2024 8:54 AM EDT [facility] Hepatitis B Surface Ab Quantitative >1,000.0 mIU/mL LAB CHEMISTRY METHOD 07/01/2024 8:54 AM EDT [facility] Blood Venous blood specimen / Unknown Venipuncture / Unknown 07/01/2024 5:19 AM EDT 07/01/2024 6:17 AM EDT Narrative [facility] - 07/01/2024 8:54 AM EDT >=10 mIU/mL is considered to be consistent with immunity. Sergo Wallis MD LAB BLOOD ORDERABLES Final Re sult Performing Organization Address City/[facility]/ZIP Co de Phone Number [facility] [address] [place] [address], [place] [phone] * (ABNORMAL) Complete blood count (07/01/2024 5:19 AM EDT) [facility] WBC 6.1 4.8 - 10.8 K/mcL LAB HEMETOLOGY METHOD 07/01/2024 6:54 AM [facility] RBC 3.50(L) 3.80 - 4.80 M/mcL LAB HEMETOLOGY METHOD 07/01/2024 6:54 AM [facility] Hemoglobin 10.9(L) 11.5 - 16.0 g/dL LAB HEMETOLOGY METHOD 07/01/2024 6:54 AM [facility] Hematocrit 34.6(L) 35.0 - 47.0 % LAB HEMETOLOGY METHOD 07/01/2024 6:54 AM [facility] MCV 97.7 79.0 - 98.0 FL LAB HEMETOLOGY METHOD 07/01/2024 6:54 AM [facility] MCH 30.8 27.0 - 32.0 pcg LAB HEMETOLOGY METHOD 07/01/2024 6:54 AM [facility] MCHC 31.5(L) 32.0 - 37.0 g/dL LAB HEMETOLOGY METHOD 07/01/2024 6:54 AM [facility] RDW 13.6 11.0 - 15.0 % LAB HEMETOLOGY METHOD 07/01/2024 6:54 AM [facility] Platelets 212 130 - 400 K/mcL LAB HEMETOLOGY METHOD 07/01/2024 6:54 AM [facility] MPV 10.5 7.0 - 11.0 FL LAB HEMETOLOGY METHOD 07/01/2024 6:54 AM [facility] NRBC 0.0 <1.0 % LAB HEMETOLOGY METHOD 07/01/2024 6:54 AM [facility] NRBC Absolute 0.00 <0.10 K/mcL LAB HEMETOLOGY METHOD 07/01/2024 6:54 AM [facility] Blood Venous blood specimen / Unknown Venipuncture / Unknown 07/01/2024 5:19 AM EDT 07/01/2024 6:18 AM EDT Kirby Fulton MD LAB BLOOD ORDERABLES Final Res ult Performing Organization Address City/[facility]/ZIP Co de Phone Number [facility] [address] [place] [address], [place] [phone] * Vitamin B12 (07/01/2024 5:19 AM EDT) Vitamin B-12 447 250 - 900 pcg/mL LAB CHEMISTRY METHOD 07/01/2024 7:32 PM EDT [facility] Blood Venous blood specimen / Unknown Venipuncture / Unknown 07/01/2024 5:19 AM EDT 07/01/2024 6:17 AM EDT Sergo Wallis MD LAB BLOOD ORDERABLES Final Re sult Performing Organization Address [facility]/ZIP Co de Phone Number [facility] [address] [place] [address], [place] [phone] * (ABNORMAL) Hemoglobin and hematocrit (06/30/2024 11:34 PM EDT) Only the most recent of2 resultswithin the time period is included. Hemoglobin 11.3(L) 11.5 - 16.0 g/dL LAB HEMETOLOGY METHOD 06/30/2024 11:49 PM EDT [facility] Hematocrit 36.0 35.0 - 47.0 % LAB HEMETOLOGY METHOD 06/30/2024 11:49 PM EDT [facility] Blood Venous blood specimen / Unknown Venipuncture / Unknown 06/30/2024 11:34 PM EDT 06/30/2024 11:43 PM EDT Lenka PARKER LAB BLOOD ORDERABLES Fi nal Result [facility] [address] [place] [address], * CT Abdomen Pelvis wo Contrast (06/30/2024 [...] Signed Date: 06/30/2024 10:21 ET Workstation ID: [id number] Transcribed By: Self Edit Transcribed Date: 06/30/2024 10:10 ET Narrative 06/30/2024 10:21 AM EDT INDICATION: flank pain TECHNIQUE: CT scan of the abdomen and pelvis obtained utilizing the renal stone protocol therefore no intravenous or oral contrast was administered. Scanner: Advanced ICU Career 128 slice VCT Dose reduction technique: ASIR (Adaptive statistical iterative reconstruction) and/or AEC (automated exposure control) Dose: total exam DLP 507 mGY per cm COMPARISON: Compared to multiple prior studies most recent from November 04, 2023 FINDINGS: Lung bases are clear. Heart borderline enlarged without pericardial effusion. Bony structures [...] no intravenous or oral contrast wasadministered. Scanner: Close 128 slice VCT Dose reduction technique: ASIR [...] Signed Date: 06/30/2024 10:21 ET Workstation ID: [id number] Transcribed By: Self Edit Transcribed Date: 06/30/2024 10:10 ET us Claude Lucia MD IMG CT PROCEDURES Final Result * Type and screen (06/30/2024 8:46 AM EDT) ABO Group O 07/15/2024 2:02 PM EDT [facility] Rh Type Positive 07/15/2024 2:02 PM EDT [facility] Antibody Screen Negative 07/15/2024 2:02 PM EDT [facility] Blood Venous blood specimen / Unknown Venipuncture / Unknown 06/30/2024 8:46 AM EDT 06/30/2024 9:11 AM EDT us Claude Lucia MD LAB BLOOD BANK TEST ORDERABLES Final Result Performing Organization Address [facility] Co de Phone Number [facility] [address] [place] [address], * Protime-INR (06/30/2024 8:34 AM EDT) Protime 11.4 10.6 - 13.9 sec LAB COAGULATION METHOD 06/30/2024 9:18 AM EDT [facility] INR 0.9 LAB COAGULATION METHOD 06/30/2024 9:18 AM EDT [facility] Blood Venous blood specimen / Unknown Venipuncture / Unknown 06/30/2024 8:34 AM EDT 06/30/2024 9:02 AM EDT us Claude Lucia MD LAB BLOOD ORDERABLES Final Resu lt [facility] [address] [place] [address], [place] [phone] * Lipase (06/30/2024 8:34 AM EDT) [facility] Lipase 56 13 - 75 unit/L LAB CHEMISTRY METHOD 06/30/2024 9:50 AM T [facility] Blood Venous blood specimen / Unknown Venipuncture / Unknown 06/30/2024 8:34 AM EDT 06/30/2024 9:02 AM EDT us Claude Lucia MD LAB BLOOD ORDERABLES Final Resu lt [facility] [address] [place] [address], [place] [phone] * (ABNORMAL) Comprehensive metabolic panel (06/30/2024 8:34 AM EDT) [facility] Sodium 138 133 - 145 mmol/L LAB CHEMISTRY METHOD 06/30/2024 10:17 AM [facility] Potassium 5.1 3.5 - 5.5 mmol/L LAB CHEMISTRY METHOD 06/30/2024 10:17 AM [facility] Comment:Hemolysis present Chloride 108 96 - 110 mmol/L LAB CHEMISTRY METHOD 06/30/2024 10:17 AM [facility] CO2 23 21 - 32 mmol/L LAB CHEMISTRY METHOD 06/30/2024 10:17 AM [facility] Anion Gap 7 3 - 11 LAB CHEMISTRY METHOD 06/30/2024 10:17 AM [facility] Glucose 103(H) 70 - 100 mg/dL LAB CHEMISTRY METHOD 06/30/2024 10:17 AM [facility] BUN 26(H) 5 - 25 mg/dL LAB CHEMISTRY METHOD 06/30/2024 10:17 AM [facility] Creatinine 6.44(H) 0.50 - 1.10 mg/dL LAB CHEMISTRY METHOD 06/30/2024 10:17 AM [facility] eGFR 7(L) >=60 mL/min/1. 73m2 LAB CHEMISTRY METHOD 06/30/2024 10:17 AM [facility] Comment:Calculation based on the Chronic Kidney Disease Epidemiology Collaboration (CKD-EPI) equation refit without adjustment for race. BUN/Creatinine Ratio 4.0 LAB CHEMISTRY METHOD 06/30/2024 10:17 AM [facility] Calcium 9.7 8.5 - 10.5 mg/dL LAB CHEMISTRY METHOD 06/30/2024 10:17 AM [facility] AST (SGOT) 20 10 - 42 unit/L LAB CHEMISTRY METHOD 06/30/2024 10:17 AM [facility] Comment:Hemolysis present ALT (SGPT) 24 10 - 60 unit/L LAB CHEMISTRY METHOD 06/30/2024 10:17 AM [facility] Alkaline Phosphatase 240(H) 42 - 121 unit/L LAB CHEMISTRY METHOD 06/30/2024 10:17 AM [facility] Total Protein 6.9 6.0 - 8.0 g/dL LAB CHEMISTRY METHOD 06/30/2024 10:17 AM [facility] Albumin 3.5 3.2 - 5.0 g/dL LAB CHEMISTRY METHOD 06/30/2024 10:17 AM [facility] Total Bilirubin 0.4 0.0 - 1.4 mg/dL LAB CHEMISTRY METHOD 06/30/2024 10:17 AM [facility] Blood Venous blood specimen / Unknown Venipuncture / Unknown 06/30/2024 8:34 AM EDT 06/30/2024 9:02 AM EDT us Claude Lucia MD LAB BLOOD ORDERABLES Final Resu lt [facility] [address] [place] [address], [place] [phone] from Last 3 Months Insurance MEDICA[place] - [place] MEDICARE Advance Directives Documents on File Type Date Recorded Patient Record Producer Expl anation Health Care Decision (hx) 07/24/2023 [...] currently active code status orders. Care Teams [employer] And Reservoir Keeper Relationship Specialty Start Date End Date Sam Lynch MD [address] [place] [address] Dr [address] [place], [place] PCP - General 10/25/22
== END 2024-07-29 11:52 | disposition home or self-care (01) ==
PROVIDERS: PCP Internal Medicine; Visit Provider Anesthesiology
DX: M51.369 Other intervertebral disc degeneration, lumbar region without mention of lumbar back pain or lower extremity pain (principal); M51.26 Other intervertebral disc displacement, lumbar region; N18.6 End stage renal disease; Z99.2 Dependence on renal dialysis; M48.00 Spinal stenosis, site unspecified; M54.16 Radiculopathy, lumbar region
CPT/HCPCS: 99213

== ENCOUNTER → 2024-07-29 11:05 | Outpatient (BNVA) | payer MEDICARE, MEDICAID, SELFPAY | PROVIDERS: PCP Internal Medicine; Visit Provider Anesthesiology | DX: M51.26 Other intervertebral disc displacement, lumbar region (principal); M51.360 Other intervertebral disc degeneration, lumbar region with discogenic back pain only; N18.6 End stage renal disease; Z99.2 Dependence on renal dialysis; M48.00 Spinal stenosis, site unspecified; M54.16 Radiculopathy, lumbar region | CPT/HCPCS: 99212 ==

== ENCOUNTER 2024-08-09 12:03 | Inpatient (IN) | payer MEDICARE, MEDICAID, SELFPAY ==
--- NOTE | 2024-08-09 12:10 | ED.NAVMDI ---
HPI - Nausea/Vomiting/Diarrhea General Chief complaint: GI Bleed Stated complaint: GI-BLEED DARK-STOOLS VOMITx4 Time Seen by Provider: 08/09/24 12:09 History of Present Illness ED Provider: Faraz Warner MD HPI Narrative: 54-year-old female with a history of PUD. She reports dark stool nausea vomiting upper abdominal pain 10/10 for about 11 hours. No abdominal trauma. She had some frothy vomitus nonbloody nonbilious in 1 or 2 episodes of what she describes melanotic stool. Related Data Home Medications ?Medication ?Instructions ?Recorded ?Confirmed ferrous sulfate 325 mg (65 mg 325 mg PO DAILY 05/11/20 08/09/24 iron) tablet,delayed release cyanocobalamin (vitamin B-12) 1,000 mcg PO DAILY 10/17/20 08/09/24 1,000 mcg tablet midodrine 5 mg tablet 5 mg PO DAILY PRN Hypotension 03/25/23 08/09/24 acetaminophen 500 mg capsule 1,000 mg PO Q8H PRN Pain 08/10/23 08/09/24 (Mapap (acetaminophen)) fluticasone propionate 50 1 spray intranasal DAILY PRN 08/10/23 08/09/24 mcg/actuation nasal Allergy Symptoms spray,suspension [id number] 45 mg-folic 1 cap PO DAILY 08/10/23 08/09/24 acid 800 mcg-vit K 120 mcg capsule (Bariatric Multivitamins) parenteral amino acid 15% no.5 15 0.5 ea IV MOWEFR@89908/10/23 08/09/24 % combination no.5 intravenous solution (Clinisol SF) sucralfate 1 gram tablet 1 g PO BID 08/10/23 08/09/24 zinc acetate 50 mg (zinc) capsule 100 mg PO DAILY 05/19/24 08/09/24 ergocalciferol (vitamin D2) 1,250 1,250 mcg PO PLEITEZ@0906/04/24 08/09/24 mcg (50,000 unit) capsule (Vitamin D2) meclizine 12.5 mg tablet 12.5 mg PO TID PRN Nausea And 06/04/24 08/09/24 Vomiting omeprazole 40 mg capsule,delayed 40 mg PO BID@0630,1630 06/04/24 08/09/24 release sevelamer carbonate 800 mg tablet 1,600 mg PO TIDWM 06/04/24 08/09/24 Previous Rx's ?Medication ?Instructions ?Recorded thiamine HCl (vitamin B1) 100 mg 100 mg PO DAILY 90 days #90 tabs 09/27/23 tablet vitamin A 2,400 mcg capsule 2,400 mcg PO DAILY 90 days #90 caps 02/05/24 citalopram 20 mg tablet 20 mg PO DAILY 90 days #90 tabs 03/18/24 carvedilol 6.25 mg tablet 6.25 mg PO BID 90 days #180 tabs 04/28/24 gabapentin 400 mg capsule 400 mg PO BID 90 days #180 caps 04/28/24 pyridoxine (vitamin B6) 50 mg 50 mg PO DAILY 90 days #90 tabs 04/28/24 tablet ondansetron 4 mg disintegrating 4 mg PO Q8H PRN nausea and 05/11/24 tablet vomiting #10 tabs melatonin 10 mg capsule 20 mg (2 x 10 mg) PO BEDTIME #90 06/11/24 caps clindamycin phosphate 1 % lotion 1 appl topical BID #60 mL 06/24/24 Allergies Allergy/AdvReac Type Severity Reaction Status Date / Time ibuprofen Allergy Severe Unknown Verified 08/09/24 12:19 nifedipine Allergy Intermediate hives, leg Verified 08/09/24 12:19 edema PMFSH Past Medical History Medical History (Updated 08/10/24 @ 16:53 by Faraz Warner MD) End stage chronic kidney disease Marginal ulcer ESRD (end stage renal disease) ESRD on dialysis Smoker Moderate major depression Physical exam Spondylosis without myelopathy or radiculopathy, lumbar region Spinal stenosis 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 Lumbar back pain with radiculopathy affecting left lower extremity Physical exam (~02/14/21) Peritoneal dialysis catheter in place Polyarthralgia Dyslipidemia Family history of ovarian cancer Abnormal mammogram of right breast Angina pectoris syndrome Chest pain Constipation Nephrosclerosis Renal interstitial fibrosis Obesity (BMI 30-39.9) Back pain GERD (gastroesophageal reflux disease) History of headache HTN (hypertension) Surgical History History of sleeve gastrectomy S/P arteriovenous (AV) graft placement Fistula Hx of colonoscopy Hx of hysterectomy Hx of tubal ligation History of endometrial ablation Family History Family History Father Asthma Mother Asthma Hypertension Ovarian cancer Maternal Grandfather Myocardial infarction Paternal Grandmother Stroke Social History Social History Household Members: Children Household Members Other:: 30 year old special needs son Housing: Apartment Are you a primary professional healthcare representative to a significant other at home: No Do you presently have visiting nurse or other home services: Yes Alcohol intake: never Comment: low fall risk Patient Tobacco Use Status: Never used Tobacco Tobacco use type: Cigarette Cigarette Packs Per Day: 1 Cigarettes Per Day: 1 Years Smoked: 10+ Smoked in Last 30 Days: Yes e-Cigarette/Vaping Use: Never Used Patient Interested in Nicotine Replacement: Yes Patient Given Instructions on How to Stop Smoking: No Second Hand Smoke Exposure: No Use of substances other than those prescribed or required for medical reasons: No Substance Use Type: Caffiene Currently Displaying Signs/Symptoms of Drug Intoxication Withdrawal: No Have you been hit, kicked, punched, or otherwise hurt by someone within the past year? If so, by whom?: No Do you feel safe in your current relationship?: No Current Relationship Is there a partner from a previous relationship who is making you feel unsafe now?: No Are you made to feel afraid or neglected: No Advance Directives: Yes Advance Directives on File: Yes Advance Directives Date on File: 04/27/20 Do you have a plan to hurt others: No Plan Recently lost weight without trying: Yes How much weight loss: 2-13 pounds Eating poorly because of decreased appetite: Yes Nutrition screen score: 4 Nutrition Risks: Poor intake 0-25% >4 days Patient : No : No Poor oral hygiene: No service: No Current occupational status: employed Cognitive needs: No Hearing needs: No Vision needs: Yes (reading glasses) Physical Exam Vital Signs: Vital Signs: Last Vital Signs Temp 98.1 F 08/10/24 15:09 Pulse 75 08/10/24 15:09 Resp 18 08/10/24 15:09 BP 131/65 08/10/24 15:09 Pulse Ox 99 08/10/24 15:09 O2 Del Method Room Air 07/01/25 15:09 BMI result Body Mass Index 24.8 EXAM: Gen: Alert, awake, well appearing, well hydrated. Head: Atraumatic Eyes: Anicteric, Normal conjunctiva. ENT: Moist mucosa, no pallor. ? Neck: Supple. Skin: ?No observable rash or bruising on exposed or examined skin Respiratory: Breathing comfortably, No distress.Clear to auscultation bilaterally, symmetric chest expansion, No wheeze, rales, ronchi. Cardiovascular: Regular rate and rhythm. No murmurs or rub. Well perfused periphery, warm extremities. No edema. ? Abdominal: Moderate diffuse abdominal tenderness. Soft, no objective distension. No palpable masses or obvious organomegaly. ?No guarding, no rebound tenderness or other peritoneal findings. : No flank tenderness. Neuro: Alert. Gross movement of all extremities intact. ? Psych: Calm. Cooperative. MSK: No grossly visible deformity. Vital signs: See flowsheet Const: Other: EXAM: Gen: Alert, appears very uncomfortable from abdominal pain Head: Atraumatic Eyes: Anicteric, Normal conjunctiva. ENT: Moist mucosa, no pallor. ? Neck: Supple. Skin: ?No observable rash or bruising on exposed or examined skin Respiratory: Breathing comfortably, No distress.Clear to auscultation bilaterally, symmetric chest expansion, No wheeze, rales, ronchi. Cardiovascular: Regular rate and rhythm. No murmurs or rub. Well perfused periphery, warm extremities. No edema. ? Abdominal: Moderate to severe upper abdominal midepigastric tenderness. Soft, no objective distension. No palpable masses or obvious organomegaly. ?No guarding, no rebound tenderness or other peritoneal findings. : No flank tenderness. Neuro: Alert. Gross movement of all extremities intact. ? Psych: Calm. Cooperative. MSK: No grossly visible deformity. Vital signs: See flowsheet Medications Administered Generic Name Dose Route Start Last Admin Trade Name Freq PRN Reason Stop Dose Admin Acetaminophen 650 mg 08/09/24 15:18 08/09/24 15:55 Acetaminophen 325 Mg Tablet PO 650 mg Q6H PRN Administration Pain, Mild 1-3,fever,headache Carvedilol 6.25 mg 08/09/24 21:00 08/10/24 08:25 Carvedilol 6.25 Mg Tablet PO 6.25 mg BID GERARDO Administration Protocol Cyanocobalamin 1,000 mcg 08/10/24 09:00 08/10/24 08:25 Cyanocobalamin (Vitamin B-12) 1,000 Mcg Tablet PO 1,000 mcg DAILY GERARDO Administration Ferrous Sulfate 324 mg 08/10/24 09:00 08/10/24 08:25 Ferrous Sulfate 324 Mg Tablet.Dr PO 324 mg DAILY GERARDO Administration Gabapentin 400 mg 08/09/24 21:00 08/10/24 08:25 Gabapentin 400 Mg Capsule PO 400 mg BID GERARDO Administration Morphine Sulfate 2 mg 08/09/24 15:18 08/10/24 09:48 Morphine Sulfate 4 Mg/Ml Cartridge IVPUSH 2 mg Q6H PRN Administration Pain, Severe (Pain Scale 7-10) Protocol Multivitamins/Vitamin C 1 tab 08/10/24 09:00 08/10/24 08:25 Multivitamin Tablet PO 1 tab DAILY GERARDO Administration Ondansetron HCl 4 mg 08/09/24 16:25 08/10/24 05:20 Ondansetron Odt 4 Mg Tab.Rapdis TRANSLINGU 4 mg Q6H PRN Administration Nausea and Vomiting Pantoprazole Sodium 40 mg 08/09/24 21:00 08/10/24 15:52 Pantoprazole Sodium 40 Mg/10 Ml Vial IVPUSH 40 mg BID@0630,1630 GERARDO Administration Pyridoxine HCl 50 mg 08/10/24 09:00 08/10/24 08:25 Pyridoxine Hcl (Vitamin B6) 50 Mg Tablet PO 50 mg DAILY GERARDO Administration Sevelamer Carbonate 1,600 mg 08/10/24 08:00 08/10/24 12:37 Sevelamer Carbonate Tablet 800 Mg Tablet PO 1,600 mg TIDWM GERARDO Administration Sodium Chloride 3 ml 08/09/24 16:00 08/10/24 15:52 0.9 % Sodium Chloride Flush 3 Ml Syringe IVFLUSH 3 ml QSHIFT GERARDO Administration Sucralfate 1 gm 08/09/24 21:00 08/10/24 08:25 Sucralfate 1 Gm Tablet PO 1 gm BID GERARDO Administration Thiamine HCl 100 mg 08/10/24 09:00 08/10/24 08:25 Thiamine Hcl 100 Mg Tablet PO 100 mg DAILY GERARDO Administration Zinc Sulfate 220 mg 08/10/24 09:00 08/10/24 08:25 Zinc Sulfate 220 Mg Capsule PO 220 mg DAILY GERARDO Administration Discontinued Medications Generic Name Dose Route Start Last Admin Trade Name Veena PRN Reason Stop Dose Admin Lactated Ringer's 250 mls @ 50 mls/hr 08/09/24 12:45 08/09/24 18:07 Lr IV 08/09/24 17:44 Infused .Q5H GERARDO Infusion Lactated Ringer's 1,000 mls @ 100 mls/hr 08/10/24 08:45 08/10/24 08:47 Lr IVCONT Infused .Q10H GERARDO Infusion Morphine Sulfate 6 mg 08/09/24 12:09 08/09/24 12:37 Morphine Sulfate 10 Mg/Ml Cartridge IVPUSH 08/09/24 12:10 6 mg ONCE ONE Administration Protocol Ondansetron HCl 4 mg 08/09/24 12:42 08/09/24 12:47 Ondansetron Hcl 4 Mg/2 Ml Vial IVPUSH 08/09/24 12:43 4 mg ONCE ONE Administration Pantoprazole Sodium 80 mg 08/09/24 12:09 08/09/24 12:37 Pantoprazole Sodium 40 Mg/10 Ml Vial IVPUSH 08/09/24 12:10 80 mg ONCE ONE Administration Sodium Zirconium Cyclosilicate 5 gm 08/09/24 14:43 08/09/24 15:55 Sodium Zirconium Cyclosilicate 5 Gm Powd.Pack PO 08/09/24 14:44 5 gm ONCE ONE Administration Sodium Zirconium Cyclosilicate 10 gm 08/10/24 11:28 08/10/24 12:38 Sodium Zirconium Cyclosilicate 10 Gm Powd.Pack PO 08/10/24 11:29 10 gm ONCE ONE Administration Medical Decision Making Medical Decision Making MDM Narrative: 54-year-old female with known peptic ulcer disease with epigastric pain and self-described melena. Multiple episodes. No active or rapid hemorrhage or melanotic stools in the ED. hemodynamics stable. Initial hemoglobin 11.3 drop to 10.1. Normocytic anemia. Given the patient's history this is most suggestive of upper GI bleed probably PUD Differential Diagnosis Differential Diagnoses: The differential diagnosis associated with the presentation includes Upper GI bleed less likely lower GI bleed, probably PUD. Could also be pancreatitis, we will exclude electrolyte derangement dehydration Consult Healthcare Provider Management of the patient was discussed with: Hospitalist Lab Data MDM Lab Attestation statement: I reviewed the patient's lab results. 08/10/24 05:46 08/10/24 05:46 Labs: Lab Results 08/09/24 08/09/24 Range/Units 12:34 13:36 WBC 8.4 7.3 (4.8-10.8) X10*3/uL RBC 3.94 L 3.67 L (4.20-5.50) X10*6/uL Hgb 12.0 11.3 L (12.0-16.0) g/dl Hct 36.0 L 33.2 L (37.0-47.0) % MCV 91.4 90.5 (80.0-98.0) fL MCH 30.5 30.8 (27.0-33.0) pg MCHC 33.3 34.0 (31.0-35.0) g/dl RDW 14.1 14.1 (11.0-16.0) % Plt Count 247 216 (160-400) X10*3/uL MPV 10.0 9.4 (9.4-12.3) fL Immature Gran % (Auto) 0.2 (0.0-0.4) % Neut % (Auto) 74.8 H (45-73) % Lymph % (Auto) 18.9 L (20-40) % [place] % (Auto) 5.0 (2-11) % Eos % (Auto) 0.6 (0-4) % Baso % (Auto) 0.5 (0-2) % Lymph # (Auto) 1.6 (1.2-4.9) X10*3/uL [place] # (Auto) 0.4 (0.1-1.2) X10*3/uL Eos # (Auto) 0.1 (0.0-0.4) X10*3/uL Baso # (Auto) 0.0 (0.0-0.2) X10*3/uL Abs Immat Gran (auto) 0.02 (0.00-0.03) X10*3/uL Absolute Neuts (auto) 6.3 (2.0-8.3) x10*3/uL Absolute Nucleated RBC 0.000 0.000 (0.0-0.012) X10*3/uL Nucleated RBC % (auto) 0.0 0.0 (0.0-0.2) /100WBC PT 12.4 (10.9-12.4) SEC INR 1.1 (0.9-1.1) APTT 32.1 (26.0-36.8) SEC Sodium 137 (135-145) mmol/L Potassium 5.7 H D 5.3 H (3.3-5.1) mmol/L Chloride 102 (96-108) mmol/L Carbon Dioxide 26 (22-29) mmol/L Anion Gap 15 (12-20) BUN 58 H (9-16) mg/dL Creatinine 5.63 H* (0.5-1.4) mg/dL Estim Creat Clear Calc 9.9 Estimated GFR 8 Random Glucose 95 (60-115) mg/dL Lactic Acid 0.7 (0.5-2.0) mmol/L Calcium 9.7 (8.4-10.2) mg/dL Total Bilirubin 0.4 (0.0-1.0) mg/dL AST 27 (5-31) U/L ALT 13 (0-31) U/L Alkaline Phosphatase 155 H (39-117) U/L Total Protein 6.6 (6.5-8.0) g/dL Albumin 3.7 (3.5-5.0) g/dL Lipase 53 (8-78) U/L Discharge Plan Discharge Patient Disposition: Still a Patient Interventions: Admission Worksheet (ED) Last Done: 08/09/24 16:06 Discharge Date/Time: 08/09/24 17:31
[2024-08-09 12:17] VITALS: BP 160/94; BP 191/98; PULSE 91; PULSE 92; RESP 22; TEMP 36.8; O2SAT 100; BMI 24.8
[2024-08-09 12:37] VITALS: RESP 22
[2024-08-09 12:40] LABS: MANUAL DIFF FLAG NO
[2024-08-09 12:41] LABS: Hematocrit 36.0 % (37.0-47.0); Hemoglobin 12.0 g/dl (12.0-16.0); Imm Gran Abs Auto 0.02 X10*3/uL (0.00-0.03); Imm Gran Pct Auto 0.2 % (0.0-0.4); Lymphocytes Absolute Auto 1.6 X10*3/uL (1.2-4.9); Mean Corpuscular HGB Conc 33.3 g/dl (31.0-35.0); Mean Corpuscular Hemoglobin 30.5 pg (27.0-33.0); Mean Corpuscular Volume 91.4 fL (80.0-98.0); NRBC Abs Auto 0.000 X10*3/uL (0.0-0.012); NRBC Pct Auto 0.0 /100WBC (0.0-0.2); Platelet Count 247 X10*3/uL (160-400); Red Blood Count 3.94 X10*6/uL (4.20-5.50); White Blood Count 8.4 X10*3/uL (4.8-10.8)
--- NOTE | 2024-08-09 12:43 | ECG_ITS ---
Test Reason : QTC ASSESS Blood Pressure : */* mmHG Vent. Rate : 81 BPM Atrial Rate : 81 BPM P-R Int : 116 ms QRS Dur : 74 ms QT Int : 388 ms P-R-T Axes : 25 34 55 degrees QTcB Int : 450 ms Normal sinus rhythm Normal ECG When compared with ECG of 04-Jun-2024 09:55, No significant change was found Referred By: Faraz Warner Electronically Signed By: CHARLY ODELL MD
[2024-08-09 12:47] LABS: INTERNATIONAL NORM RATIO 1.1 (0.9-1.1); Prothrombin Time 12.4 SEC (10.9-12.4)
[2024-08-09 12:50] LABS: Partial Thromboplastin Time 32.1 SEC (26.0-36.8)
[2024-08-09] MEDS: Lactated Ringers 250 ML 50 ML IV (12:50)
[2024-08-09 13:02] LABS: Alanine Aminotransferase 13 U/L (0-31); Albumin Level 3.7 g/dL (3.5-5.0); Alkaline Phosphatase 155 U/L (39-117); Anion Gap 15 (12-20); Aspartate Amino Transferase 27 U/L (5-31); Blood Urea Nitrogen 58 mg/dL (9-16); Calcium 9.7 mg/dL (8.4-10.2); Carbon Dioxide 26 mmol/L (22-29); Chloride 102 mmol/L (96-108); Creatinine Clr Calc Pharmacy 9.9; Estimated Glomerular Filt Rate 8; Lipase 53 U/L (8-78); Potassium 5.7 mmol/L (3.3-5.1); Sodium 137 mmol/L (135-145); Total Protein 6.6 g/dL (6.5-8.0)
--- OUTSIDE RECORDS SUMMARY | 2024-08-09 13:14 | XMS_ITS | Encounter Summary ---
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 Name Role Phone Rozina Nicole MD Primary Care Provider [phone] Encounter Details Date Type Department Care Team (Late st Contact Info) Description 05/08/2020 Orders Only [facility] [address] [place] [address] Provider, MD Wendy Social History Tobacco Use Types Packs/Day Years [...] encounter Results * EXT RESULT ENTRY (04/26/2020) Historical Provider LAB BLOOD ORDERABLES Jennifer l Result documented in this encounter Visit Diagnoses Not on filedocumented in this encounter Care Teams Low Emission Automobile Designer Relationship Specialty Start Date End Date Rozina Nicole MD [address] [place], [place] PCP - General 02/21/20 documented as of this encounter
--- OUTSIDE RECORDS SUMMARY | 2024-08-09 13:14 | XMS_ITS | Clinical Summary ---
Author Organization 175 [facility] Address [address] [place] [address] Phone Care Team Providers Care Surgical Sales Representative Name Role Phone Sam Lynch MD Primary Care Provider Allergies Active Allergy Reactions Criticality Noted Date Comments Ibuprofen High 01/25/2021 Other Reaction(s): KIDNEY DAMAGE Nifedipine High 01/25/2021 Other Reaction(s): HIVES, LEG EDEMA Medications acetaminophen (TYLENOL) 500 mg capsule Take 2 capsules (1,000 mg total) by mouth. 4 Active carvediloL (COREG) 6.25 mg tablet Take 1 tablet (6.25 mg total) by mouth 2 (two) times a day with meals. 3 Active dicyclomine (BENTYL) 10 mg capsule Take 1 capsule (10 mg total) by mouth. 3 Active dicyclomine (BENTYL) 20 mg tablet Take [...] by mouth 1 (one) time each day. 3 Active fluticasone propionate (FLONASE) 50 mcg/actuation nasal spray INSTILL 1 SPRAY INTRANASALLY DAILY ADMINISTER INTO EACH NOSTRIL 2 Active ergocalciferol (VITAMIN D-2) 1,250 mcg (50,000 unit) capsule Take 1 capsule (50,000 Units total) by mouth 1 (one) time per week. 5 Active melatonin 10 mg capsule Take 2 capsules (20 mg total) by mouth at bedtime. 5 Active sucralfate (CARAFATE) 1 gram tablet Take 1 tablet (1 g total) by mouth 2 (two) times a day. 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 11/26/2023 Acute kidney failure ([facility] V24) 04/26/2021 Benign essential hypertension 04/26/2021 Dependence on renal dialysis ([facility] V24) 04/26 Disorder of kidney and ureter, unspecified 04/26 ESRD on hemodialysis ([facility] V24, [facility] V28) 04/26/2021 Hypertensive heart and chron ic kidney disease with heart failure and stage 1 through stage 4 chronic kidney disease, or unspecified chronic kidney disease ([facility] V24, [facility] V28) 04/26/2021 Vitamin D deficiency 04/26/2021 Resolved Problems Problem Noted Date Diagnosed Date Resolved Date Upper GI bleed 06/30/2024 07/03/2024 Encounters Date Type Department Care Team Description 07/15/2024 2:00 PM EDT Office Visit Bariatric Surgery - [place] 175 [facility] [address] [place] [address] Gerson Rosen MD Marginal ulcers (Primary Dx) 07/07/2024 Telephone Gastroenterology - [facility] [address] [place] [phone] Michelle Cowan MA Results 07/02/2024 7:25 AM EDT Anesthesia Event [facility] Endoscopy [address] [place] [address] Dayna Clements MD Claudio, Raymund, CRNA 06/30/2024 8:21 AM EDT - 07/03/2024 6:47 PM EDT Hospital Encounter [facility] Medical Surgical Unit [address] [place] [address] Claude Lucia MD Bukalo, Nermina, MD Zipagan, James T, MD Upper GI bleed (Primary Dx) Discharge Disposition: Home or Self Care 06/14/2024 Telephone Bariatric Surgery - [place] 175 [facility] [address] [place] [address] Gerson Rosen MD from Last 3 Months Surgical History Surgery Date Site/Laterality Comments OTHER SURGICAL HISTORY PROCEDURE: DIALYSIS ACCESS SYSTEM LAPAROSCOPIC GASTRIC BANDING PROCEDURE: LAP ADJUSTABLE GASTRIC BAND HYSTERECTOMY PROCEDURE: HISTORICAL HYSTERECTOMY OTHER SURGICAL HISTORY PROCEDURE: COLONOSCOPY LESION REMOVAL OTHER SURGICAL HISTORY 06/13/2021 Left PROCEDURE: AR CRTJ ARVEN FSTL XCP DIR ARVEN ANAST [...] 3:15 PM EDT Office Visit Bariatric Surgery [facility] [address] [phone] Grace Abarca PA [address] [address] 11/18/2024 1:15 PM EDT Office Visit Bariatric Surgery [facility] [address] [phone] Gerson Rosen MD [address] [address] Health Maintenance Due Date Last Done Comments [...] * Lavender tube (07/02/2024 10:20 AM EDT) Extra Tube Hold for add-ons. 07/02/2024 12:01 PM EDT [facility] Comment:Auto resulted. Blood Venous blood specimen / Unknown Venipuncture / Unknown 07/02/2024 10:20 AM EDT 07/02/2024 10:24 AM EDT us Sergo Wallis MD LAB BLOOD ORDERABLES Final Re sult [facility] [address] [place] [address], [place] [phone] * (ABNORMAL) Basic metabolic panel (07/02/2024 10:20 AM EDT) Only the most recent of2 resultswithin the time period is included. Sodium 130(L) 133 - 145 mmol/L LAB CHEMISTRY METHOD 07/02/2024 11:07 AM [facility] Potassium 4.7 3.5 - 5.5 mmol/L LAB CHEMISTRY METHOD 07/02/2024 11:07 AM [facility] Chloride 94(L) 96 - 110 mmol/L LAB CHEMISTRY METHOD 07/02/2024 11:07 AM [facility] CO2 29 21 - 32 mmol/L LAB CHEMISTRY METHOD 07/02/2024 11:07 AM [facility] Anion Gap 7 3 - 11 LAB CHEMISTRY METHOD 07/02/2024 11:07 AM [facility] Glucose 231(H) 70 - 100 mg/dL LAB CHEMISTRY METHOD 07/02/2024 11:07 AM [facility] BUN 16 5 - 25 mg/dL LAB CHEMISTRY METHOD 07/02/2024 11:07 AM [facility] Creatinine 5.36(H) 0.50 - 1.10 mg/dL LAB CHEMISTRY METHOD 07/02/2024 11:07 AM [facility] eGFR 9(L) >=60 mL/min/1. 73m2 LAB CHEMISTRY METHOD 07/02/2024 11:07 AM [facility] Comment:Calculation based on the Chronic Kidney Disease Epidemiology Collaboration (CKD-EPI) equation refit without adjustment for race. BUN/Creatinine Ratio 3.0 LAB CHEMISTRY METHOD 07/02/2024 11:07 AM [facility] Calcium 9.6 8.5 - 10.5 mg/dL LAB CHEMISTRY METHOD 07/02/2024 11:07 AM [facility] Blood Venous blood specimen / Unknown Venipuncture / Unknown 07/02/2024 10:20 AM EDT 07/02/2024 10:23 AM EDT Myrna PARKER LAB BLOOD ORDERABLES Final R esult [facility] [address] [place] [address], * (ABNORMAL) CBC auto differential (07/02/2024 8:43 AM EDT) Only the most recent of2 resultswithin the time period is included. WBC 5.4 4.8 - 10.8 K/mcL LAB HEMETOLOGY METHOD 07/02/2024 9:12 AM EDT [facility] RBC 4.10 3.80 - 4.80 M/mcL LAB HEMETOLOGY METHOD 07/02/2024 9:12 AM EDT [facility] Hemoglobin 12.6 11.5 - 16.0 g/dL LAB HEMETOLOGY METHOD 07/02/2024 9:12 AM EDT [facility] Hematocrit 39.5 35.0 - 47.0 % LAB HEMETOLOGY METHOD 07/02/2024 9:12 AM EDT [facility] MCV 96.6 79.0 - 98.0 FL LAB HEMETOLOGY METHOD 07/02/2024 9:12 AM EDT [facility] MCH 30.8 27.0 - 32.0 pcg LAB HEMETOLOGY METHOD 07/02/2024 9:12 AM EDT [facility] MCHC 31.9(L) 32.0 - 37.0 g/dL LAB HEMETOLOGY METHOD 07/02/2024 9:12 AM EDT [facility] RDW 13.2 11.0 - 15.0 % LAB HEMETOLOGY METHOD 07/02/2024 9:12 AM [facility] Platelets 208 130 - 400 K/mcL LAB HEMETOLOGY METHOD 07/02/2024 9:12 AM [facility] MPV 10.4 7.0 - 11.0 FL LAB HEMETOLOGY METHOD 07/02/2024 9:12 AM [facility] NRBC 0.0 <1.0 % LAB HEMETOLOGY METHOD 07/02/2024 9:12 AM [facility] NRBC Absolute 0.00 <0.10 K/mcL LAB HEMETOLOGY METHOD 07/02/2024 9:12 AM [facility] Neutrophils Relative 60.0 % LAB HEMETOLOGY METHOD 07/02/2024 9:12 AM [facility] Lymphocytes Relative 26.7 % LAB HEMETOLOGY METHOD 07/02/2024 9:12 AM [facility] Monocytes Relative 7.9 % LAB HEMETOLOGY METHOD 07/02/2024 9:12 AM [facility] Eosinophils Relative 4.1 % LAB HEMETOLOGY METHOD 07/02/2024 9:12 AM [facility] Basophils Relative 0.9 % LAB HEMETOLOGY METHOD 07/02/2024 9:12 AM [facility] Immature Granulocytes Relative 0.4 % LAB HEMETOLOGY METHOD 07/02/2024 9:12 AM [facility] Neutrophils Absolute 3.21 1.50 - 7.00 K/mcL LAB HEMETOLOGY METHOD 07/02/2024 9:12 AM [facility] Lymphocytes Absolute 1.43 1.00 - 5.00 K/mcL LAB HEMETOLOGY METHOD 07/02/2024 9:12 AM [facility] Monocytes Absolute 0.42 0.20 - 1.00 K/mcL LAB HEMETOLOGY METHOD 07/02/2024 9:12 AM [facility] Eosinophils Absolute 0.22 0.00 - 0.50 K/mcL LAB HEMETOLOGY METHOD 07/02/2024 9:12 AM [facility] Basophils Absolute 0.05 0.00 - 0.20 K/mcL LAB HEMETOLOGY METHOD 07/02/2024 9:12 AM EDT [facility] Immature Granulocytes Absolute 0.02 0.00 - 0.03 K/[facility] LAB HEMETOLOGY METHOD 07/02/2024 9:12 AM EDT [facility] Blood Venous blood specimen / Unknown Venipuncture / Unknown 07/02/2024 8:43 AM EDT 07/02/2024 8:48 AM EDT us Myrna PARKER LAB BLOOD ORDERABLES Final R esult [facility] [address] [place] [address], [place] [phone] * EGD Anesthesia - MAC; [facility] ENDOSCOPY (07/02/2024 7:46 AM EDT) Anatomical Region Laterality Modality Other 07/02/2024 7:31 AM EDT Impressions 07/02/2024 7:54 AM EDT - Gastric bypass with a normal-sized pouch and intact staple line. Gastrojejunal anastomosis characterized by erosion. - Gastritis. Biopsied. Recommendation: - Resume previous diet. - Continue present medications. - Await pathology results. Narrative 07/02/2024 7:54 AM EDT [facility] GI Patient Name: Meliza Perry Procedure [...] characterized by erosion. This was traversed. The erlmx-bg-tbvkbkz limb was characterized by ulceration. The drgjcybh-hg-cqnwywz limb was not examined as it could [...] multiple biopsies. Procedure Code(s): --- Professional --- 81338, Esophagogastroduodenoscopy, flexible, transoral; with biopsy, single or multiple Diagnosis Code(s): --- Professional --- K29.70, Gastritis, unspecified, without bleeding K28.9, Gastrojejunal ulcer, unspecified as acute or chronic, without hemorrhage or perforation CPT copyright 2020 [employer]. All rights reserved. The codes documented in this report are preliminary and upon assembler production line review may be revised to meet current compliance requirements. MD Ari Collado MD 07/02/2024 7:54:37 AM This report has been signed electronically.Ari Davis MD Number of Addenda: 0 Note Initiated On: 07/02/2024 7:31 AM Scope In: Scope Out: Endoscopy Department at [facility] - [address] [place] [phone] Procedure Note Ari Davis MD - 07/02/2024 [facility] GI Patient Name: Meliza Perry Procedure [...] characterized by erosion. This was traversed. The jhmhl-mi-fnzrkgo limb was characterized byulceration. The fkwskfsj-yg-bqcseeb limb was not examined as it could [...] take multiplebiopsies. Procedure Code(s): --- Professional --- 97845, Esophagogastroduodenoscopy, flexible, transoral; with biopsy, single or multiple Diagnosis Code(s): --- Professional --- K29.70, Gastritis, unspecified, without bleeding K28.9, Gastrojejunal ulcer, unspecified as acute or chronic, without hemorrhage or perforation CPT copyright 2020 [employer]. All rights reserved. The codes documented in this report are preliminary and upon assembler production line reviewmay be revised to meet current compliance requirements. MD Ari Collado MD 07/02/2024 7:54:37 AM This report has been signed electronically.Ari Davis MD Number of Addenda: 0 Note Initiated On: 07/02/2024 7:31 AM Scope In: Scope Out: Endoscopy Department at [facility] - [address] [place] [phone] IMPRESSION: - Gastric bypass with a normal-sized [...] type gastritis identified. 07/06/2024 12:39 PM EDT [facility] Gross Description A. Stomach, gastric [...] survive processing. dvb/DG 07/06/2024 12:39 PM EDT [facility] Disclaimer Unless otherwise specified, all tissue is 10% NB formalin fixed and paraffin embedded. 07/06/2024 12:39 PM EDT [facility] Tissue Stomach structure / Unknown 07/02/2024 7:42 AM EDT 07/02/2024 9:56 AM EDT Ari Davis MD LAB PATHOLOGY ORDERABLES Final Result Performing Organization Address [facility] Co de Phone Number [facility] [address] [place] [address], [place] [phone] * ECG 12 lead (07/01/2024 5:38 AM EDT) Ventricular Rate ECG 74 BPM [facility] Atrial Rate 74 BPM [facility] P-R Interval 120 ms G[facility] QRS Duration 76 ms GEMUSE Q-T Interval 406 ms GEMUSE QTc 450 ms GEMUSE P Wave [place] 30 degrees GEMUSE R [place] 16 degrees GEMUSE T [place] 53 degrees GEMUSE ECG Interpretation Normal sinus rhythm Normal ECG When compared with ECG of 04-NOV-2023 18:08, No significant change was found Confirmed by MD Shabbir, [place] ([id number]) on 07/02/2024 7:23:30 AM GEM[facility] 07/01/2024 5:38 AM EDT 07/02/2024 7:23 AM EDT us Kristyn PARKER ECG ORDERABLES Final Result Performing Organization Address [facility] de Phone Number GEM[facility] * Hepatitis B surface antigen with reflex to confirmation (07/01/2024 5:19 AM EDT) Pathologist [facility] Hepatitis B Surface Ag Negative Negative LAB CHEMISTRY METHOD 07/01/2024 10:19 AM EDT [facility] Blood Venous blood specimen / Unknown Venipuncture / Unknown 07/01/2024 5:19 AM EDT 07/01/2024 6:17 AM EDT Narrative [facility] - 07/01/2024 10:19 AM EDT Over the counter supplements containing high doses of biotin may interfere with this assay. If interference is suspected, patients shoud be retested after refraining from biotin supplements for 72 hours. Sergo Wallis MD LAB BLOOD ORDERABLES Final Re sult Performing Organization Address [facility]/ZIP Co de Phone Number [facility] [address] [place] [address], [place] [phone] * (ABNORMAL) Nicotine and cotinine (07/01/2024 5:19 AM EDT) [facility] Signature Nicotine <2.0 <2.0 ng/mL 07/07/2024 4:39 AM EDT [facility] Cotinine 243.4(H) <2.0 ng/mL 07/07/2024 4:39 AM EDT [facility] Comment: Additional Reference Ranges: Active Tobacco Passive Abstinence User Exposure 2 Weeks and more Nicotine 30 - 50 ng/mL <2 ng/mL <2 ng/mL Cotinine 200 - 800 ng/mL <8 ng/mL <2 ng/mL Reference Ranges from: Clin. Chem.; 48:6825-3390 (2002) Direct any interpretive questions to the toxicology laboratory. This is for medical use only, it is not intended for forensic use. If applicable, any drug confirmation testing reported here was developed and the performance characteristics determined by [facility]. This confirmation testing has not been cleared or approved by the FDA. The laboratory is regulated under CLIA as qualified to perform high-complexity testing. This test is used for patient testing purposes. It should not be regarded as investigational or for research. Test performed at [facility], [address], [place] [address] Kim Castelan MD, PhD - [employer] Blood Venous blood specimen / Unknown Venipuncture / Unknown 07/01/2024 5:19 AM EDT 07/01/2024 6:17 AM EDT us Angela PARKER LAB BLOOD ORDERABLES Final Resu lt [facility] [address] [place] [place] [address] * (ABNORMAL) Iron and TIBC (07/01/2024 5:19 AM EDT) Pathologist [facility] Iron 64 40 - 150 mcg/dL LAB CHEMISTRY METHOD 07/01/2024 7:34 PM EDT [facility] TIBC 191(L) 250 - 450 mcg/dL LAB CHEMISTRY METHOD 07/01/2024 7:34 PM EDT [facility] Iron Saturation 34 15 - 50 % LAB CHEMISTRY METHOD 07/01/2024 7:34 PM EDT [facility] Blood Venous blood specimen / Unknown Venipuncture / Unknown 07/01/2024 5:19 AM EDT 07/01/2024 6:17 AM EDT Sergo Wallis MD LAB BLOOD ORDERABLES Final Re sult Performing Organization Address [facility]/ZIP Co de Phone Number [facility] [address] [place] [address], * (ABNORMAL) Hepatitis B surface antibody quantitative (07/01/2024 5:19 AM EDT) [facility] Hepatitis B Surface Ab Positive (A) Negative LAB CHEMISTRY METHOD 07/01/2024 8:54 AM EDT [facility] Hepatitis B Surface Ab Quantitative >1,000.0 mIU/mL LAB CHEMISTRY METHOD 07/01/2024 8:54 AM EDT [facility] Blood Venous blood specimen / Unknown Venipuncture / Unknown 07/01/2024 5:19 AM EDT 07/01/2024 6:17 AM EDT Narrative [facility] - 07/01/2024 8:54 AM EDT >=10 mIU/mL is considered to be consistent with immunity. us Sergo Wallis MD LAB BLOOD ORDERABLES Final Re sult Performing Organization Address City/[facility]/ZIP Co de Phone Number [facility] [address] [place] [address], * (ABNORMAL) Complete blood count (07/01/2024 5:19 AM EDT) [facility] Signature WBC 6.1 4.8 - 10.8 K/mcL LAB HEMETOLOGY METHOD 07/01/2024 6:54 AM EDT [facility] RBC 3.50(L) 3.80 - 4.80 M/mcL LAB HEMETOLOGY METHOD 07/01/2024 6:54 AM EDT [facility] Hemoglobin 10.9(L) 11.5 - 16.0 g/dL LAB HEMETOLOGY METHOD 07/01/2024 6:54 AM [facility] Hematocrit 34.6(L) 35.0 - 47.0 % LAB HEMETOLOGY METHOD 07/01/2024 6[facility] MCV 97.7 79.0 - 98.0 FL LAB HEMETOLOGY METHOD 07/01/2024 6:54 [facility] MCH 30.8 27.0 - 32.0 pcg LAB HEMETOLOGY METHOD 07/01/2024 6:54 AM [facility] MCHC 31.5(L) 32.0 - 37.0 g/dL LAB HEMETOLOGY METHOD 07/01/2024 6:54 [facility] RDW 13.6 11.0 - 15.0 % LAB HEMETOLOGY METHOD 07/01/2024 6:54 [facility] Platelets 212 130 - 400 K/mcL LAB HEMETOLOGY METHOD 07/01/2024 6:54 [facility] MPV 10.5 7.0 - 11.0 FL LAB HEMETOLOGY METHOD 07/01/2024 6:54 AM EDT [facility] NRBC 0.0 <1.0 % LAB HEMETOLOGY METHOD 07/01/2024 6:54 AM EDT [facility] NRBC Absolute 0.00 <0.10 K/mcL LAB HEMETOLOGY METHOD 07/01/2024 6:54 AM EDT [facility] Blood Venous blood specimen / Unknown Venipuncture / Unknown 07/01/2024 5:19 AM EDT 07/01/2024 6:18 AM EDT us Kirby Fulton MD LAB BLOOD ORDERABLES Final Res ult [facility] [address] [place] [address], [place] [phone] * Vitamin B12 (07/01/2024 5:19 AM EDT) Vitamin B-12 447 250 - 900 pcg/mL LAB CHEMISTRY METHOD 07/01/2024 7:32 PM EDT [facility] Blood Venous blood specimen / Unknown Venipuncture / Unknown 07/01/2024 5:19 AM EDT 07/01/2024 6:17 AM EDT us Sergo Wallis MD LAB BLOOD ORDERABLES Final Re sult [facility] [address] [place] [address], [place] [phone] * (ABNORMAL) Hemoglobin and hematocrit (06/30/2024 11:34 PM EDT) Only the most recent of2 resultswithin the time period is included. Hemoglobin 11.3(L) 11.5 - 16.0 g/dL LAB HEMETOLOGY METHOD 06/30/2024 11:49 PM EDT [facility] Hematocrit 36.0 35.0 - 47.0 % LAB HEMETOLOGY METHOD 06/30/2024 11:49 PM EDT [facility] Blood Venous blood specimen / Unknown Venipuncture / Unknown 06/30/2024 11:34 PM EDT 06/30/2024 11:43 PM EDT us Lenka PARKER LAB BLOOD ORDERABLES Fi nal Result [facility]) [facility] [address] [place] [address], [place] [phone] * CT Abdomen Pelvis wo Contrast (06/30/2024 [...] Signed Date: 06/30/2024 10:21 ET Workstation ID: [id number] Transcribed By: Self Edit Transcribed Date: 06/30/2024 10:10 ET Narrative 06/30/2024 10:21 AM EDT INDICATION: flank pain TECHNIQUE: CT scan of the abdomen and pelvis obtained utilizing the renal stone protocol therefore no intravenous or oral contrast was administered. Scanner: [employer]er 128 slice VCT Dose reduction technique: ASIR [...] no intravenous or oral contrast wasadministered. Scanner: [employer]er 128 slice VCT Dose reduction technique: ASIR [...] Signed Date: 06/30/2024 10:21 ET Workstation ID: [id number] Transcribed By: Self Edit Transcribed Date: 06/30/2024 10:10 ET us Claude Lucia MD IMG CT PROCEDURES Final Result * Type and screen (06/30/2024 8:46 AM EDT) ABO Group O 07/15/2024 2:02 PM EDT [facility] Rh Type Positive 07/15/2024 2:02 PM EDT [facility] Antibody Screen Negative 07/15/2024 2:02 PM EDT [facility] Blood Venous blood specimen / Unknown Venipuncture / Unknown 06/30/2024 8:46 AM EDT 06/30/2024 9:11 AM EDT us Claude Lucia MD LAB BLOOD BANK TEST ORDERABLES Final Result [facility] [address] [place] [address], [place] [phone] * Protime-INR (06/30/2024 8:34 AM EDT) Protime 11.4 10.6 - 13.9 sec LAB COAGULATION METHOD 06/30/2024 9:18 AM EDT [facility] INR 0.9 LAB COAGULATION METHOD 06/30/2024 9:18 AM EDT [facility] Blood Venous blood specimen / Unknown Venipuncture / Unknown 06/30/2024 8:34 AM EDT 06/30/2024 9:02 AM EDT us Claude Lucia MD LAB BLOOD ORDERABLES Final Resu lt Performing Organization Address [facility]/ZIP Co de Phone Number [facility] [address] [place] [address], [place] [phone] * Lipase (06/30/2024 8:34 AM EDT) Pathologist [facility] Lipase 56 13 - 75 unit/L LAB CHEMISTRY METHOD 06/30/2024 9:50 AM EDT [facility] Blood Venous blood specimen / Unknown Venipuncture / Unknown 06/30/2024 8:34 AM EDT 06/30/2024 9:02 AM EDT us Claude Lucia MD LAB BLOOD ORDERABLES Final Resu lt Performing Organization Address City/[facility]/ZIP Co de Phone Number [facility] [address] [place] [address], [place] [phone] * (ABNORMAL) Comprehensive metabolic panel (06/30/2024 8:34 AM EDT) [facility] Sodium 138 133 - 145 mmol/L LAB CHEMISTRY METHOD 06/30/2024 10:17 AM T [facility] Potassium 5.1 3.5 - 5.5 mmol/L LAB CHEMISTRY METHOD 06/30/2024 10:17 AM EDT [facility] Comment:Hemolysis present Chloride 108 96 - 110 mmol/L LAB CHEMISTRY METHOD 06/30/2024 10:17 AM EDT [facility] CO2 23 21 - 32 mmol/L LAB CHEMISTRY METHOD 06/30/2024 10:17 AM T [facility] Anion Gap 7 3 - 11 LAB CHEMISTRY METHOD 06/30/2024 10:17 AM EDT [facility] Glucose 103(H) 70 - 100 mg/dL LAB CHEMISTRY METHOD 06/30/2024 10:17 AM [facility] BUN 26(H) 5 - 25 mg/dL LAB CHEMISTRY METHOD 06/30/2024 10:17 AM [facility] Creatinine 6.44(H) 0.50 - 1.10 mg/dL LAB CHEMISTRY METHOD 06/30/2024 10:17 AM [facility] eGFR 7(L) >=60 mL/min/1. 73m2 LAB CHEMISTRY METHOD 06/30/2024 10:17 AM [facility] Comment:Calculation based on the Chronic Kidney Disease Epidemiology Collaboration (CKD-EPI) equation refit without adjustment for race. BUN/Creatinine Ratio 4.0 LAB CHEMISTRY METHOD 06/30/2024 10:17 AM [facility] Calcium 9.7 8.5 - 10.5 mg/dL LAB CHEMISTRY METHOD 06/30/2024 10:17 AM [facility] AST (SGOT) 20 10 - 42 unit/L LAB CHEMISTRY METHOD 06/30/2024 10:17 AM [facility] Comment:Hemolysis present ALT (SGPT) 24 10 - 60 unit/L LAB CHEMISTRY METHOD 06/30/2024 10:17 AM [facility] Alkaline Phosphatase 240(H) 42 - 121 unit/L LAB CHEMISTRY METHOD 06/30/2024 10:17 AM [facility] Total Protein 6.9 6.0 - 8.0 g/dL LAB CHEMISTRY METHOD 06/30/2024 10:17 AM [facility] Albumin 3.5 3.2 - 5.0 g/dL LAB CHEMISTRY METHOD 06/30/2024 10:17 AM [facility] Total Bilirubin 0.4 0.0 - 1.4 mg/dL LAB CHEMISTRY METHOD 06/30/2024 10:17 AM [facility] Blood Venous blood specimen / Unknown Venipuncture / Unknown 06/30/2024 8:34 AM EDT 06/30/2024 9:02 AM EDT us Claude Lucia MD LAB BLOOD ORDERABLES Final Resu lt [facility] ([facility]) [facility] [address] [place] [address], [place] [phone] from Last 3 Months Insurance MEDICAID - [place] MEDICARE Advance Directives Documents on File Type Date Recorded Patient Repairer Hairspring Expl anation Health Care Decision (hx) 07/24/2023 [...] currently active code status orders. Care Teams Surgical Sales Representative Relationship Specialty Start Date End Date Sam Lynch MD [address] [place] [address] Cristina [address] [place] PCP - General 10/25/22
[2024-08-09 13:42] LABS: Hematocrit 33.2 % (37.0-47.0); Hemoglobin 11.3 g/dl (12.0-16.0); Mean Corpuscular HGB Conc 34.0 g/dl (31.0-35.0); Mean Corpuscular Hemoglobin 30.8 pg (27.0-33.0); Mean Corpuscular Volume 90.5 fL (80.0-98.0); NRBC Abs Auto 0.000 X10*3/uL (0.0-0.012); NRBC Pct Auto 0.0 /100WBC (0.0-0.2); Platelet Count 216 X10*3/uL (160-400); Red Blood Count 3.67 X10*6/uL (4.20-5.50); White Blood Count 7.3 X10*3/uL (4.8-10.8)
[2024-08-09 13:49] LABS: Potassium 5.3 mmol/L (3.3-5.1)
--- NOTE | 2024-08-09 14:37 | HO.PM.IMCN ---
History of Present Illness Data of Consult Service Date: 08/09/24 Primary Care Provider: Rozina Lang MD HPI Reason for consult: ?GI bleed, Anemia, ESRD 54 year old woman with hx of end-stage renal disease on hemodialysis (MWF), GERD, hemorrhoids, fibromyalgia, Chronic low back pain, diverticulosis, gastric sleeve surgery, s/p revision of gastric bypass at [facility] and essential hypertension who presented to the hospital for vomiting and coffee-ground emesis. Patient has been previously admitted for UGIB secondary to bleeding from marginal ulcers. She required blood transfusions and EGD on 05/20/2024 which revealed anastomotic ulcers without bleeding and gastritis. Day before admission she reports that she vomited bile and phlegm yesterday at 12 noon a couple of times. She reports that she felt better, ate a hamburger and some red wine for dinner, woke up around 1:00 am with diarrhea and continued vomiting. She reports that the vomitus was the color of coffee. Patient also reported abdominal pain in her epigastric region. She denies any recent URI symptoms, no restaurant food, No unusual dietary changes, has been taking her medications as ordered. She reports going to her dialysis treatments regularly but did not feel well enough to go today. She denies any dysuria, denies any unusual vaginal symptoms, denies constipation. On arrival to the emergency room hemoglobin was 12. On repeat 11.3. HGB noted to be 14.6 on July 18. On exam, she reports no abdominal pain, no nausea, or vomiting. Last episode of coffee-ground emesis was 1am this morning. Her K+ is 5.3, she received dose of Lokelma. She received morphine, zofran and protonix in ED. Also recieved bolus of LR. She will be admitted for further management of GI bleeding. Review of Systems Review of Systems: Denies any shortness of breath, chest pain, dizziness, lightheadedness, abdominal pain or discomfort, nausea vomiting or diarrhea [facility] Medical History (Updated 08/10/24 @ 09:33 by Lul Pagan MD) End stage chronic kidney disease Marginal ulcer ESRD (end stage renal disease) ESRD on dialysis Smoker Moderate major depression Physical exam Spondylosis without myelopathy or radiculopathy, lumbar region Spinal stenosis 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 Lumbar back pain with radiculopathy affecting left lower extremity Physical exam (~02/14/21) Peritoneal dialysis catheter in place Polyarthralgia Dyslipidemia Family history of ovarian cancer Abnormal mammogram of right breast Angina pectoris syndrome Chest pain Constipation Nephrosclerosis Renal interstitial fibrosis Obesity (BMI 30-39.9) Back pain GERD (gastroesophageal reflux disease) History of headache HTN (hypertension) Family History Father Asthma Mother Asthma Hypertension Ovarian cancer Maternal Grandfather Myocardial infarction Paternal Grandmother Stroke Surgical History History of sleeve gastrectomy S/P arteriovenous (AV) graft placement Fistula Hx of colonoscopy Hx of hysterectomy Hx of tubal ligation History of endometrial ablation Social History Household Members: Children Household Members Other:: 30 year old special needs son Housing: Apartment Are you a primary child care specialist to a significant other at home: No Do you presently have visiting nurse or other home services: Yes Alcohol intake: never Comment: low fall risk Patient Tobacco Use Status: Never used Tobacco Tobacco use type: Cigarette Cigarette Packs Per Day: 1 Cigarettes Per Day: 1 Years Smoked: 10+ Smoked in Last 30 Days: Yes e-Cigarette/Vaping Use: Never Used Patient Interested in Nicotine Replacement: Yes Patient Given Instructions on How to Stop Smoking: No Second Hand Smoke Exposure: No Use of substances other than those prescribed or required for medical reasons: No Substance Use Type: Caffiene Currently Displaying Signs/Symptoms of Drug Intoxication Withdrawal: No Have you been hit, kicked, punched, or otherwise hurt by someone within the past year? If so, by whom?: No Do you feel safe in your current relationship?: No Current Relationship Is there a partner from a previous relationship who is making you feel unsafe now?: No Are you made to feel afraid or neglected: No Advance Directives: Yes Advance Directives on File: Yes Advance Directives Date on File: 04/27/20 Do you have a plan to hurt others: No Plan Recently lost weight without trying: Yes How much weight loss: 2-13 pounds Eating poorly because of decreased appetite: Yes Nutrition screen score: 4 Nutrition Risks: Poor intake 0-25% >4 days Patient : No : No Poor oral hygiene: No service: No Current occupational status: employed Cognitive needs: No Hearing needs: No Vision needs: Yes (reading glasses) Meds Allergies Allergy/AdvReac Type Severity Reaction Status Date / Time ibuprofen Allergy Severe Unknown Verified 08/09/24 12:19 nifedipine Allergy Intermediate hives, leg Verified 08/09/24 12:19 edema Active Medications: Current Medications Lactated Ringer's (Lr) 250 mls @ 50 mls/hr IV .Q5H [facility] Stop: 08/09/24 17:44 Last Admin: 08/09/24 12:50 Dose: 50 mls/hr Home Medications ?Medication ?Instructions ?Recorded ?Confirmed ?Last Taken ?Type ferrous sulfate 325 mg (65 mg 325 mg PO DAILY 05/11/20 08/09/24 06/03/24 History iron) tablet,delayed release cyanocobalamin (vitamin B-12) 1,000 mcg PO DAILY 10/17/20 08/09/24 06/03/24 History 1,000 mcg tablet midodrine 5 mg tablet 5 mg PO DAILY PRN Hypotension 03/25/23 08/09/24 05/18/24 History acetaminophen 500 mg capsule 1,000 mg PO Q8H PRN Pain 08/10/23 08/09/24 05/18/24 History (Mapap (acetaminophen)) fluticasone propionate 50 1 spray intranasal DAILY PRN 08/10/23 08/09/24 05/18/24 History mcg/actuation nasal Allergy Symptoms spray,suspension [id number]-[id number] 45 mg-folic 1 cap PO DAILY 08/10/23 08/09/24 06/03/24 History acid 800 mcg-vit K 120 mcg capsule (Bariatric Multivitamins) parenteral amino acid 15% no.5 15 0.5 ea IV MOWEFR@0900 08/10/23 08/09/24 06/02/24 History % combination no.5 intravenous solution (Clinisol SF) sucralfate 1 gram tablet 1 g PO BID 08/10/23 08/09/24 06/03/24 History zinc acetate 50 mg (zinc) capsule 100 mg PO DAILY 05/19/24 08/09/24 06/03/24 History ergocalciferol (vitamin D2) 1,250 1,250 mcg PO PLEITEZ@0900 06/04/24 08/09/24 05/23/24 History mcg (50,000 unit) capsule (Vitamin D2) meclizine 12.5 mg tablet 12.5 mg PO TID PRN Nausea And 06/04/24 08/09/24 06/04/24 History Vomiting omeprazole 40 mg capsule,delayed 40 mg PO BID@0630,1630 06/04/24 08/09/24 06/03/24 History release sevelamer carbonate 800 mg tablet 1,600 mg PO TIDWM 06/04/24 08/09/24 06/03/24 History Physical Exam Vital Signs and Narrative: Vital Signs: Last Vital Signs Temp 98.2 F 08/09/24 12:17 Pulse 91 08/09/24 12:17 Resp 22 H 08/09/24 12:37 BP 191/98 H 08/09/24 12:17 Pulse Ox 100 08/09/24 12:17 O2 Del Method Room Air 08/09/24 12:17 BMI result Body Mass Index 24.8 CONST: Alert and oriented, in NAD. Well nourished HEENT: Normocephalic, atraumatic, MMM, Eyes clear, Neck supple RESP: Lungs clear, RRR even and regular HEART:,RRR, S1, S2. No edema GI:Abdomen Soft NT, ND. + BS times four :Deferred SKIN: Warm dry and intact, no visible lesions or rashes NEURO:CN II-XII Intact bilaterally, Sensation intact. Speech clear PSYCH: Normal affect Results Labs 08/10/24 05:46 08/10/24 05:46 Labs: Laboratory Results - last 24 hr 08/09/24 08/09/24 12:34 13:36 MCV 91.4 90.5 MCH 30.5 30.8 MCHC 33.3 34.0 RDW 14.1 14.1 Plt Count 247 216 MPV 10.0 9.4 Immature Gran % (Auto) 0.2 Neut % (Auto) 74.8 H Lymph % (Auto) 18.9 L Ripley % (Auto) 5.0 Eos % (Auto) 0.6 Baso % (Auto) 0.5 Lymph # (Auto) 1.6 Ripley # (Auto) 0.4 Eos # (Auto) 0.1 Baso # (Auto) 0.0 Abs Immat Gran (auto) 0.02 Absolute Neuts (auto) 6.3 Absolute Nucleated RBC 0.000 0.000 Nucleated RBC % (auto) 0.0 0.0 PT 12.4 INR 1.1 APTT 32.1 Anion Gap 15 Estim Creat Clear Calc 9.9 Estimated GFR 8 Random Glucose 95 Lactic Acid 0.7 Calcium 9.7 Total Bilirubin 0.4 AST 27 ALT 13 Alkaline Phosphatase 155 H Total Protein 6.6 Albumin 3.7 Lipase 53 Assessment and Plan (1) UGIB (upper gastrointestinal bleed): Status: Resolved Plan Pt is a 54-year-old female with a PMH significant for?ESRD on HD M/W/, 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 Pt is admitted to the hospital for treatment and further evaluation of coffee ground emesis concerning for recurrent UGIB. Medication reconcilliation not completed at time of exam and note. Recurrent GI bleed Pt with hematemesis, coffee-ground emesis, chest and abdominal pain since early this morning which has improved after morphine and Protonix Long hx of recurrent UGIB from gastric ulcers as complication from Bariatric surgery performed at [facility] Recent hospitalization here for similar symptoms, last discharged on 05/21/2024 EGD found gastritis and congestion anastomotic ulcers without major active bleeding H&H stable at 11.3/33.2 Protonix 40 mgs b.i.d. Antiemetics, analgesics Clear liquid diet for now, advance as tolerated NPO after midnight for possible EGD in the morning GI consult ESRD on HD M/W/ Missed dialysis today Nephrology consult, follows with [facility] Hyperkalemis Likely due to missed dialysis Received [facility] Hypertension Continue home meds, HD Monitor BP HLD Continue statin Mood disorder Continue home meds CODE STATUS; FULL CODE VTE Prophylaxis: Compression
[2024-08-09 15:49] VITALS: BP 144/73; PULSE 89; RESP 18; TEMP 36.9; O2SAT 99
--- NOTE | 2024-08-09 16:25 | PC.NURSE ---
Pt has been admitted to the hospital, is awaiting transport upstairs at this time. Plan of care gone over with pt, verbal orders placed for PRN zofran from admitting provider. Pt tolerating Ice chips at this time, pt responded well to morphine given earlier and pain has resolved. Pt took Imodium prior to coming to ED so no BM has happened since being here, pt knows about her NPO status after midnight and her pending Gastro/Nephro consults. Pt remains vitally stable. +B/T in her left upper arm HD graft.
[2024-08-09 16:49] VITALS: BP 170/78; PULSE 85; RESP 16; TEMP 36.4; O2SAT 100
[2024-08-09 16:52] VITALS: BMI 24.8
--- NOTE | 2024-08-09 16:53 | PHA.MEDREC ---
Pharmacy Consult ? Medication Reconciliation Pharmacy has completed the medication reconciliation.Spoke with patient in ED. Patient listed off all medications. Clinisol is given at dialysis center. Patient states she is on Sevelamar and Sucralfate although has not filled in quite some time.
--- NOTE | 2024-08-09 17:05 | PM.GICN ---
History of Present Illness Data of Consult Service Date: 08/09/24 Primary Care Provider: Rozina Lang MD HPI 54 YF with ESRD on HD (MWF), GERD, hemorrhoids, fibromyalgia, Chronic low back pain, diverticulosis, gastric sleeve surgery, s/p revision of gastric bypass at [facility] and hypertension seen at [facility] ED today with nausea, vomiting with coffee-ground emesis. Patient has been previously admitted for UGIB secondary to bleeding from marginal ulcers. She required blood transfusions and EGD on 05/20/2024 which revealed anastomotic ulcers without bleeding and gastritis. 08/08/24 around noon, Pt reported a few episodes of vomiting bile and phlegm. She reports that she felt better, ate a hamburger and some red wine for dinner, woke up around 1:00 am with diarrhea and continued vomiting continaining coffee ground material. Patient also reported epigastric pain. She denied any recent URI symptoms, no restaurant food, No unusual dietary changes, has been taking her medications as ordered. She reports going to her dialysis treatments regularly but did not feel well enough to go today. On arrival to the emergency room hemoglobin was 12. On repeat 11.3. HGB noted to be 14.6 on July 18. Last episode of coffee-ground emesis was 1 am today. Labs showed K+ of 5.3, she received dose of Lokelma. Pt was treated with morphine, zofran and protonix and bolus of LR in the ED and admitted for further management of GI bleeding. 05/2024 MESENTERIC DUPLEX US SHOWED: Superior and inferior mesenteric artery velocity is normal. The celiac artery velocity is elevated in inspiration supine to 295 cm/second suggestive borderline atherosclerosis. The inferior mesenteric, splenic and hepatic artery velocities are normal. PAST GI HISTORY BY REVIEW OF MEDICAL RECORDS: 05/20/24 EGD WAS PERFORMED BY DR BOSTON AND SHOWED: Esophagus: GE junction at 38 cm, diaphragm hiatus at 38 cm, normal mucosa Stomach pouch: congested mucosa with diffuse erythema . Biopsies were obtained. Grade 2 flap valve on retroflexed examination of the cardia. There was an ulcer at the anastomosis, had improved as compared to before, x 2 clips still attached. On the anterior side there was a 8-10 mm punched out hollow ulcer, x 1 clip applied as there was slight oozing. Another smaller erosion noted. jejunum: normal Impression/Findings: gastritis, and congestion anastomotic ulcers -no major active bleeding PLAN: repeat duplex to r/o worsening ischemia BId dosing PPI, open capsule and mix with apple sauce carafate 1 g BID GERD precautions BIOPSIES SHOWED: Stomach, pouch, biopsy: Oxyntic mucosa with mild chronic inactive inflammation; no Helicobacter organisms seen Review of Systems Review of Systems: Yes all other systems are reviewed and are negative [facility] Past Medical History Medical History Marginal ulcer ESRD (end stage renal disease) ESRD on dialysis Smoker End stage chronic kidney disease Moderate major depression Physical exam Spondylosis without myelopathy or radiculopathy, lumbar region Spinal stenosis 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 Lumbar back pain with radiculopathy affecting left lower extremity Physical exam (~02/14/21) Peritoneal dialysis catheter in place Polyarthralgia Dyslipidemia Family history of ovarian cancer Abnormal mammogram of right breast Angina pectoris syndrome Chest pain Constipation Nephrosclerosis Renal interstitial fibrosis Obesity (BMI 30-39.9) Back pain GERD (gastroesophageal reflux disease) History of headache HTN (hypertension) Family History Family History Father Asthma Mother Asthma Hypertension Ovarian cancer Maternal Grandfather Myocardial infarction Paternal Grandmother Stroke Surgical History Surgical History History of sleeve gastrectomy S/P arteriovenous (AV) graft placement Fistula Hx of colonoscopy Hx of hysterectomy Hx of tubal ligation History of endometrial ablation Social History Social History Household Members: Children Household Members Other:: 30 year old special needs son Housing: Apartment Are you a primary home care consultant to a significant other at home: No Do you presently have visiting nurse or other home services: Yes Alcohol intake: never Comment: low fall risk Patient Tobacco Use Status: Never used Tobacco Tobacco use type: Cigarette Cigarette Packs Per Day: 1 Cigarettes Per Day: 1 Years Smoked: 10+ Smoked in Last 30 Days: Yes e-Cigarette/Vaping Use: Never Used Patient Interested in Nicotine Replacement: Yes Patient Given Instructions on How to Stop Smoking: No Second Hand Smoke Exposure: No Substance Use Type: Caffiene Have you been hit, kicked, punched, or otherwise hurt by someone within the past year? If so, by whom?: No Do you feel safe in your current relationship?: No Current Relationship Is there a partner from a previous relationship who is making you feel unsafe now?: No Are you made to feel afraid or neglected: No Advance Directives: Yes Advance Directives on File: Yes Advance Directives Date on File: 04/27/20 Do you have a plan to hurt others: No Plan Recently lost weight without trying: Yes How much weight loss: 2-13 pounds Eating poorly because of decreased appetite: Yes Nutrition screen score: 4 Nutrition Risks: Poor intake 0-25% >4 days Patient : No : No Poor oral hygiene: No service: No Current occupational status: employed Cognitive needs: No Hearing needs: No Vision needs: Yes (reading glasses) Meds Allergies Allergy/AdvReac Type Severity Reaction Status Date / Time ibuprofen Allergy Severe Unknown Verified 08/09/24 12:19 nifedipine Allergy Intermediate hives, leg Verified 08/09/24 12:19 edema Active Medications: Current Medications Acetaminophen (Acetaminophen 325 Mg Tablet) 650 mg PO Q6H PRN PRN Reason: Pain, Mild 1-3,fever,headache Last Admin: 08/09/24 15:55 Dose: 650 mg Docusate Sodium (Docusate Sodium 100 Mg Capsule) 100 mg PO BID PRN PRN Reason: Constipation Lactated Ringer's (Lr) 250 mls @ 50 mls/hr IV .Q5H [facility] Stop: 08/09/24 17:44 Last Admin: 08/09/24 12:50 Dose: 50 mls/hr Melatonin (Melatonin 3 Mg Tablet) 6 mg PO BEDTIME PRN PRN Reason: Insomnia Morphine Sulfate (Morphine Sulfate 4 Mg/Ml Cartridge) 2 mg IVPUSH Q6H PRN; Protocol PRN Reason: Pain, Severe (Pain Scale 7-10) Ondansetron HCl (Ondansetron Odt 4 Mg Tab.Rapdis) 4 mg TRANSLINGU Q6H PRN PRN Reason: Nausea and Vomiting Pantoprazole Sodium (Pantoprazole Sodium 40 Mg/10 Ml Vial) 40 mg IVPUSH BID@0630,1630 [facility] Sodium Chloride (0.9 % Sodium Chloride Flush 3 Ml Syringe) 3 ml IVFLUSH QSHIFT [facility] Home Medications ?Medication ?Instructions ?Recorded ?Confirmed ?Last Taken ?Type ferrous sulfate 325 mg (65 mg 325 mg PO DAILY 05/11/20 08/09/24 06/03/24 History iron) tablet,delayed release cyanocobalamin (vitamin B-12) 1,000 mcg PO DAILY 10/17/20 08/09/24 06/03/24 History 1,000 mcg tablet midodrine 5 mg tablet 5 mg PO DAILY PRN Hypotension 03/25/23 08/09/24 05/18/24 History acetaminophen 500 mg capsule 1,000 mg PO Q8H PRN Pain 08/10/23 08/09/24 05/18/24 History (Mapap (acetaminophen)) fluticasone propionate 50 1 spray intranasal DAILY PRN 08/10/23 08/09/24 05/18/24 History mcg/actuation nasal Allergy Symptoms spray,suspension mydkwzqt-qvosuimz-iihe 45 mg-folic 1 cap PO DAILY 08/10/23 08/09/24 06/03/24 History acid 800 mcg-vit K 120 mcg capsule (Bariatric Multivitamins) parenteral amino acid 15% no.5 15 0.5 ea IV MOWEFR@0900 08/10/23 08/09/24 06/02/24 History % combination no.5 intravenous solution (Clinisol SF) sucralfate 1 gram tablet 1 g PO BID 08/10/23 08/09/24 06/03/24 History zinc acetate 50 mg (zinc) capsule 100 mg PO DAILY 05/19/24 08/09/24 06/03/24 History ergocalciferol (vitamin D2) 1,250 1,250 mcg PO PLEITEZ@0900 06/04/24 08/09/24 05/23/24 History mcg (50,000 unit) capsule (Vitamin D2) meclizine 12.5 mg tablet 12.5 mg PO TID PRN Nausea And 06/04/24 08/09/24 06/04/24 History Vomiting omeprazole 40 mg capsule,delayed 40 mg PO BID@0630,1630 06/04/24 08/09/24 06/03/24 History release sevelamer carbonate 800 mg tablet 1,600 mg PO TIDWM 06/04/24 08/09/24 06/03/24 History Physical Exam Vital Signs: Vital Signs: Last Vital Signs Temp 97.5 F 08/09/24 16:49 Pulse 85 08/09/24 16:49 Resp 16 08/09/24 16:49 BP 170/78 H 08/09/24 16:49 Pulse Ox 100 08/09/24 16:49 O2 Del Method Room Air 08/09/24 16:49 BMI result Body Mass Index 24.8 EXAM: Gen: Alert, awake, well appearing, well hydrated. Head: Atraumatic Eyes: Anicteric, Normal conjunctiva. ENT: Moist mucosa, no pallor. ? Neck: Supple. Skin: ?No observable rash or bruising on exposed or examined skin Respiratory: Breathing comfortably, No distress.Clear to auscultation bilaterally, symmetric chest expansion, No wheeze, rales, ronchi. Cardiovascular: Regular rate and rhythm. No murmurs or rub. Well perfused periphery, warm extremities. No edema. ? Abdominal: Moderate diffuse abdominal tenderness. Soft, no objective distension. No palpable masses or obvious organomegaly. ?No guarding, no rebound tenderness or other peritoneal findings. : No flank tenderness. Neuro: Alert. Gross movement of all extremities intact. ? Psych: Calm. Cooperative. MSK: No grossly visible deformity. Vital signs: See flowsheet Const: General: healthy appearing and no acute distress Nutritional Appearance: average body habitus Orientation/consciousness: patient oriented x3 Limitations: no limitations HEENT: Head: Yes normal to inspection Ears: hearing grossly normal bilaterally Mouth: Normal oral and palatal mucosa present Eyes: Sclerae: sclerae normal Pupils: Equal, round and reactive pupils present Neck: Neck: Yes normal visual inspection Chest: Chest palpation & inspection: normal inspection of the chest Resp: Effort & Inspection: normal respiratory effort Auscultation: clear to auscultation bilaterally Cardio: Palpation: normal PMI Rate: regular rate Rhythm: regular rhythm Heart sounds: S1 normal heart sound present, S2 normal heart sound present and no murmurs GI: Palpation (GI): Soft to palpation, Tenderness to palpation present (GI) (Moderate diffuse abdominal tenderness) and No hepatosplenomegaly present Auscultation: normal bowel sounds Rectal Exam - Female: deferred Skin: General skin exam: no rashes or lesions noted Neuro: General: patient oriented x3, gait normal and moves all extremities Cranial nerves: Yes Equal, round and reactive pupils present Psych: Appearance: grossly normal Mental Status: mental status grossly normal Results Labs 08/09/24 13:36 08/09/24 13:36 Labs: Short CBC 08/09/24 08/09/24 Range/Units 12:34 13:36 WBC 8.4 7.3 (4.8-10.8) X10*3/uL Hgb 12.0 11.3 L (12.0-16.0) g/dl Hct 36.0 L 33.2 L (37.0-47.0) % Plt Count 247 216 (160-400) X10*3/uL BMP 08/09/24 08/09/24 12:34 13:36 Sodium 137 Potassium 5.7 H D 5.3 H Chloride 102 Carbon Dioxide 26 BUN 58 H Creatinine 5.63 H* Calcium 9.7 Liver Function 08/09/24 Range/Units 12:34 Total Bilirubin 0.4 (0.0-1.0) mg/dL AST 27 (5-31) U/L ALT 13 (0-31) U/L Alkaline Phosphatase 155 H (39-117) U/L Albumin 3.7 (3.5-5.0) g/dL Assessment and Plan (1) UGIB (upper gastrointestinal bleed): Status: Resolved Plan 54 YF with ESRD on HD (MWF), GERD, hemorrhoids, fibromyalgia, Chronic low back pain, diverticulosis, gastric sleeve surgery, s/p revision of gastric bypass at [facility] and hypertension admitted to [facility] with nausea, vomiting with coffee-ground emesis. EGD in the recent past showed an anastomotic ulcer. GI bleeding can be from a MW tear or recurrent PUD. RECOMMENDATIONS: 1. Agree with IV PPI, antiemetics and pain medications. 2. Follow CBC Q 12 hrly x 24 hrs. 3. If continued decline in CBC, proceed with EGD in the am (Pt tentatively placed on the add on list for EGD tomorrow) If H & H remains stable, OK to hold off endoscopic evaluation since pt had an EGD 2.5 months ago Procedures Date of Service Date of Service: 08/09/24
[2024-08-09 19:10] VITALS: BP 155/84; PULSE 94; RESP 17; TEMP 36.8; O2SAT 97
[2024-08-09 19:32] LABS: Hematocrit 29.6 % (37.0-47.0); Hemoglobin 10.1 g/dl (12.0-16.0)
[2024-08-09 22:01] VITALS: BP 155/84; PULSE 94
[2024-08-09] MEDS: 0.9 % Sodium Chloride Flush 3 ML SYRINGE IVFLUSH (22:06)
[2024-08-10] VITALS (7 sets, daily range): BP systolic 107–162; BP diastolic 63–83; PULSE 71–75; RESP 16–18; TEMP 36.6–36.9; O2SAT 96–100
[2024-08-10 06:22] LABS: Hematocrit 29.6 % (37.0-47.0); Hemoglobin 10.1 g/dl (12.0-16.0); Mean Corpuscular HGB Conc 34.1 g/dl (31.0-35.0); Mean Corpuscular Hemoglobin 31.0 pg (27.0-33.0); Mean Corpuscular Volume 90.8 fL (80.0-98.0); NRBC Abs Auto 0.000 X10*3/uL (0.0-0.012); NRBC Pct Auto 0.0 /100WBC (0.0-0.2); Platelet Count 197 X10*3/uL (160-400); Red Blood Count 3.26 X10*6/uL (4.20-5.50); White Blood Count 5.3 X10*3/uL (4.8-10.8)
[2024-08-10 06:39] LABS: Anion Gap 15 (12-20); Blood Urea Nitrogen 57 mg/dL (9-16); Calcium 8.7 mg/dL (8.4-10.2); Carbon Dioxide 23 mmol/L (22-29); Chloride 104 mmol/L (96-108); Creatinine Clr Calc Pharmacy 9.4; Estimated Glomerular Filt Rate 7; Potassium 5.5 mmol/L (3.3-5.1); Sodium 136 mmol/L (135-145)
--- NOTE | 2024-08-10 07:58 | MHC.SHP ---
Pre-Procedural Eval Section A - 24 Hr Update-Section A only Date of Service: 08/10/24 The patient is an INPATIENT: Yes The patient has been examined within 24 hours of the surgical procedure. The History & Physical has been completed within 30 days and I have reviewed it.: Yes Section B - Complete if H&P > 30 days Chief Complaint: Melena, ?UGIB Allergies: Allergies Allergy/AdvReac Type Severity Reaction Status Date / Time ibuprofen Allergy Severe Unknown Verified 08/09/24 12:19 nifedipine Allergy Intermediate hives, leg Verified 08/09/24 12:19 edema Plan Diagnosis/Plan: Unchanged I have reviewed the history and physical and performed a pertinent physical examination on my patient. No changes have occurred unless specified. Time Spent With Patient Time: Total time managing care of this patient today ____ minutes.
[2024-08-10] MEDS: Ferrous Sulfate 324 MG TABLET.DR PO (08:25)
[2024-08-10] MEDS: Sevelamer Carbonate Tablet 800 MG TABLET 1600 MG PO ×3 (08:25→17:19)
--- NOTE | 2024-08-10 08:29 | HO.ANESPROP2 ---
[facility] Active Problems Active Problems: All Active Problems (Updated 07/29/24 @ 16:19 by Mannie Raymond MD) Radiculopathy, lumbar region (Acute) Hidradenitis suppurativa of multiple sites (Acute) Superior mesenteric artery stenosis (Acute) Underweight (Acute) Suprapubic pain (Acute) Syncope (Acute) Schatzki's ring (Acute) Gastritis (Acute) Esophagitis (Acute) Idiopathic hypotension (Acute) Moderate major depression (Acute) Systolic murmur (Acute) Malnutrition (Acute) Pre-op examination (Acute) Non-cardiac chest pain (Acute) Polyp of right nasal cavity (Acute) Numbness (Acute) Palpitations (Acute) Urinary and fecal incontinence (Acute) Anxiety and depression (Acute) Chronic low back pain (Acute) Fatigue (Acute) Nasal polyp, benign (Acute) Anxiety and depression (Acute) LLQ abdominal pain (Acute) Tubular adenoma of colon (Acute) Anxiety (Acute) Chronic renal insufficiency (Acute) Spinal stenosis (Acute) 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 (Acute) Lumbar back pain with radiculopathy affecting left lower extremity (Acute) GERD (gastroesophageal reflux disease) (Acute) Polyarthralgia (Acute) Dyslipidemia (Acute) Family history of ovarian cancer (Acute) Abnormal mammogram of right breast (Acute) Chest pain (Acute) Obesity (BMI 30-39.9) (Acute) HTN (hypertension) (Acute) Past Medical History Medical History Marginal ulcer ESRD (end stage renal disease) ESRD on dialysis Smoker End stage chronic kidney disease Moderate major depression Physical exam Spondylosis without myelopathy or radiculopathy, lumbar region Spinal stenosis 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 Lumbar back pain with radiculopathy affecting left lower extremity Physical exam (~02/14/21) Peritoneal dialysis catheter in place Polyarthralgia Dyslipidemia Family history of ovarian cancer Abnormal mammogram of right breast Angina pectoris syndrome Chest pain Constipation Nephrosclerosis Renal interstitial fibrosis Obesity (BMI 30-39.9) Back pain GERD (gastroesophageal reflux disease) History of headache HTN (hypertension) Family History Family History Father Asthma Mother Asthma Hypertension Ovarian cancer Maternal Grandfather Myocardial infarction Paternal Grandmother Stroke Family history of problems with anesthesia: No Surgical History Surgical History History of sleeve gastrectomy S/P arteriovenous (AV) graft placement Fistula Hx of colonoscopy Hx of hysterectomy Hx of tubal ligation History of endometrial ablation History of Problems with Anesthesia: No Social History Social History Household Members: Children Household Members Other:: 30 year old special needs son Housing: Apartment Are you a primary career development coordinator to a significant other at home: No Do you presently have visiting nurse or other home services: Yes Alcohol intake: never Comment: low fall risk Patient Tobacco Use Status: Never used Tobacco Tobacco use type: Cigarette Cigarette Packs Per Day: 1 Cigarettes Per Day: 1 Years Smoked: 10+ Smoked in Last 30 Days: Yes e-Cigarette/Vaping Use: Never Used Patient Interested in Nicotine Replacement: Yes Patient Given Instructions on How to Stop Smoking: No Second Hand Smoke Exposure: No Use of substances other than those prescribed or required for medical reasons: No Substance Use Type: Caffiene Currently Displaying Signs/Symptoms of Drug Intoxication Withdrawal: No Have you been hit, kicked, punched, or otherwise hurt by someone within the past year? If so, by whom?: No Do you feel safe in your current relationship?: No Current Relationship Is there a partner from a previous relationship who is making you feel unsafe now?: No Are you made to feel afraid or neglected: No Advance Directives: Yes Advance Directives on File: Yes Advance Directives Date on File: 04/27/20 Do you have a plan to hurt others: No Plan Recently lost weight without trying: Yes How much weight loss: 2-13 pounds Eating poorly because of decreased appetite: Yes Nutrition screen score: 4 Nutrition Risks: Poor intake 0-25% >4 days Patient : No : No Poor oral hygiene: No service: No Current occupational status: employed Cognitive needs: No Hearing needs: No Vision needs: Yes (reading glasses) Meds Allergies Allergy/AdvReac Type Severity Reaction Status Date / Time ibuprofen Allergy Severe Unknown Verified 08/09/24 12:19 nifedipine Allergy Intermediate hives, leg Verified 08/09/24 12:19 edema Active Medications: Current Medications Acetaminophen (Acetaminophen 325 Mg Tablet) 650 mg PO Q6H PRN PRN Reason: Pain, Mild 1-3,fever,headache Last Admin: 08/09/24 15:55 Dose: 650 mg Carvedilol (Carvedilol 6.25 Mg Tablet) 6.25 mg PO BID [facility]; Protocol Last Admin: 08/09/24 22:01 Dose: 6.25 mg Cyanocobalamin (Cyanocobalamin (Vitamin B-12) 1,000 Mcg Tablet) 1,000 mcg PO DAILY [facility] Docusate Sodium (Docusate Sodium 100 Mg Capsule) 100 mg PO BID PRN PRN Reason: Constipation Ergocalciferol (Ergocalciferol (Vitamin D2) 1,250 Mcg Capsule) 1,250 mcg PO PLEITEZ@0900 [facility] Ferrous Sulfate (Ferrous Sulfate 324 Mg Tablet.Dr) 324 mg PO DAILY [facility] Fluticasone Propionate (Fluticasone Propionate Nasal 16 Gm [place]) 1 spray NOSTRIL-B DAILY PRN PRN Reason: Allergy Symptoms Gabapentin (Gabapentin 400 Mg Capsule) 400 mg PO BID [facility] [place] Last Admin: 08/09/24 22:01 Dose: 400 mg Meclizine HCl (Meclizine Hcl 12.5 Mg Tablet) 12.5 mg PO TID PRN PRN Reason: Nausea and Vomiting Melatonin (Melatonin 3 Mg Tablet) 6 mg PO BEDTIME PRN PRN Reason: Insomnia Midodrine (Midodrine Hcl 5 Mg Tablet) 5 mg PO DAILY PRN PRN Reason: Hypotension Morphine Sulfate (Morphine Sulfate 4 Mg/Ml Cartridge) 2 mg IVPUSH Q6H PRN; Protocol PRN Reason: Pain, Severe (Pain Scale 7-10) Last Admin: 08/10/24 01:20 Dose: 2 mg Multivitamins/Vitamin C (Multivitamin Tablet) 1 tab PO DAILY [facility] [place] Ondansetron HCl (Ondansetron Odt 4 Mg Tab.Rapdis) 4 mg TRANSLINGU Q6H PRN PRN Reason: Nausea and Vomiting Last Admin: 08/10/24 05:20 Dose: 4 mg Pantoprazole Sodium (Pantoprazole Sodium 40 Mg/10 Ml Vial) 40 mg IVPUSH BID@0630,1630 [facility] Last Admin: 08/10/24 05:20 Dose: 40 mg Pyridoxine HCl (Pyridoxine Hcl (Vitamin B6) 50 Mg Tablet) 50 mg PO DAILY [facility] Sevelamer Carbonate (Sevelamer Carbonate Tablet 800 Mg Tablet) 1,600 mg PO TIDWM [facility] Sodium Chloride (0.9 % Sodium Chloride Flush 3 Ml Syringe) 3 ml IVFLUSH QSHIFT [facility] Last Admin: 08/09/24 22:06 Dose: 3 ml Sucralfate (Sucralfate 1 Gm Tablet) 1 gm PO BID [facility] Last Admin: 08/09/24 22:01 Dose: 1 gm Thiamine HCl (Thiamine Hcl 100 Mg Tablet) 100 mg PO DAILY [facility] Zinc Sulfate (Zinc Sulfate 220 Mg Capsule) 220 mg PO DAILY [facility] Home Medications ?Medication ?Instructions ?Recorded ?Confirmed ?Last Taken ?Type ferrous sulfate 325 mg (65 mg 325 mg PO DAILY 05/11/20 08/09/24 06/03/24 History iron) tablet,delayed release cyanocobalamin (vitamin B-12) 1,000 mcg PO DAILY 10/17/20 08/09/24 06/03/24 History 1,000 mcg tablet midodrine 5 mg tablet 5 mg PO DAILY PRN Hypotension 03/25/23 08/09/24 05/18/24 History acetaminophen 500 mg capsule 1,000 mg PO Q8H PRN Pain 08/10/23 08/09/24 05/18/24 History (Mapap (acetaminophen)) fluticasone propionate 50 1 spray intranasal DAILY PRN 08/10/23 08/09/24 05/18/24 History mcg/actuation nasal Allergy Symptoms spray,suspension [id number] 45 mg-folic 1 cap PO DAILY 08/10/23 08/09/24 06/03/24 History acid 800 mcg-vit K 120 mcg capsule (Bariatric Multivitamins) parenteral amino acid 15% no.5 15 0.5 ea IV MOWEFR@89908/10/23 08/09/24 06/02/24 History % combination no.5 intravenous solution (Clinisol SF) sucralfate 1 gram tablet 1 g PO BID 08/10/23 08/09/24 06/03/24 History zinc acetate 50 mg (zinc) capsule 100 mg PO DAILY 05/19/24 08/09/24 06/03/24 History ergocalciferol (vitamin D2) 1,250 1,250 mcg PO PLEITEZ@89906/04/24 08/09/24 05/23/24 History mcg (50,000 unit) capsule (Vitamin D2) meclizine 12.5 mg tablet 12.5 mg PO TID PRN Nausea And 06/04/24 08/09/24 06/04/24 History Vomiting omeprazole 40 mg capsule,delayed 40 mg PO BID@0630,1630 06/04/24 08/09/24 06/03/24 History release sevelamer carbonate 800 mg tablet 1,600 mg PO TIDWM 06/04/24 08/09/24 06/03/24 History Exam Height,Weight and Vital Signs: Height 5 ft 4 in Weight 65.5 kg Last Vital Signs Temp 97.8 F 08/10/24 07:38 Pulse 74 08/10/24 07:38 Resp 16 08/10/24 07:38 BP 131/69 08/10/24 07:38 Pulse Ox 97 08/10/24 07:38 O2 Del Method Room Air 08/10/24 07:38 Pertinent Lab Results Pertinent Lab Results: Laboratory Tests 08/09/24 08/09/24 08/09/24 12:34 13:36 19:26 WBC 8.4 7.3 RBC 3.94 L 3.67 L Hgb 12.0 11.3 L 10.1 L Hct 36.0 L 33.2 L 29.6 L MCV 91.4 90.5 MCH 30.5 30.8 MCHC 33.3 34.0 RDW 14.1 14.1 Plt Count 247 216 MPV 10.0 9.4 Immature Gran % (Auto) 0.2 Neut % (Auto) 74.8 H Lymph % (Auto) 18.9 L [place] % (Auto) 5.0 Eos % (Auto) 0.6 Baso % (Auto) 0.5 Lymph # (Auto) 1.6 [place] # (Auto) 0.4 Eos # (Auto) 0.1 Baso # (Auto) 0.0 Abs Immat Gran (auto) 0.02 Absolute Neuts (auto) 6.3 Absolute Nucleated RBC 0.000 0.000 Nucleated RBC % (auto) 0.0 0.0 PT 12.4 INR 1.1 APTT 32.1 Sodium 137 Potassium 5.7 H D 5.3 H Chloride 102 Carbon Dioxide 26 Anion Gap 15 BUN 58 H Creatinine 5.63 H* Estim Creat Clear Calc 9.9 Estimated GFR 8 Random Glucose 95 Lactic Acid 0.7 Calcium 9.7 Total Bilirubin 0.4 AST 27 ALT 13 Alkaline Phosphatase 155 H Total Protein 6.6 Albumin 3.7 Lipase 53 08/10/24 05:46 WBC 5.3 RBC 3.26 L Hgb 10.1 L Hct 29.6 L MCV 90.8 MCH 31.0 MCHC 34.1 RDW 14.4 Plt Count 197 MPV 10.7 Immature Gran % (Auto) Neut % (Auto) Lymph % (Auto) [place] % (Auto) Eos % (Auto) Baso % (Auto) Lymph # (Auto) [place] # (Auto) Eos # (Auto) Baso # (Auto) Abs Immat Gran (auto) Absolute Neuts (auto) Absolute Nucleated RBC 0.000 Nucleated RBC % (auto) 0.0 PT INR APTT Sodium 136 Potassium 5.5 H Chloride 104 Carbon Dioxide 23 Anion Gap 15 BUN 57 H Creatinine 5.99 H* Estim Creat Clear Calc 9.4 Estimated GFR 7 Random Glucose 72 Lactic Acid Calcium 8.7 D Total Bilirubin AST ALT Alkaline Phosphatase Total Protein Albumin Lipase Assessment and Plan Final Anesthetic Review Family History of Problems with Anesthesia: No History of Problems with Anesthesia: No
[2024-08-10] MEDS: 0.9 % Sodium Chloride Flush 3 ML SYRINGE IVFLUSH ×3 (08:32→20:46)
[2024-08-10] MEDS: Lactated Ringers 1,000 ML 100 ML IVCONT (08:47)
--- NOTE | 2024-08-10 09:14 | PC.NURSE ---
Upper endo canceled per anesthesia due to elevated k+, would liek pt to have dialysis first
--- NOTE | 2024-08-10 09:28 | HO.PM.IMPN ---
Subjective Subjective Date of Service: 08/10/24 Interval History: f/u on gib acute blood loss anemia, no active bleeding EGD cancelled d/t hyperkalemia of 5 Physical Exam Vital Signs: Vital Signs: Last Vital Signs Temp 98.4 F 08/10/24 08:43 Pulse 71 08/10/24 08:43 Resp 16 08/10/24 08:43 BP 162/83 H 08/10/24 08:43 Pulse Ox 100 08/10/24 08:43 O2 Del Method Room Air 08/10/24 08:43 BMI result Body Mass Index 24.8 Const: Other: General: AO X 3, no acute distress Resp: CTA bilateral CVS: S1,S2,RRR GI: +BS, NT, no distention Skin: No rash Neuro: motor grossly intact Psych: appropriate affect Objective Data Active Medications Acetaminophen (Acetaminophen 325 Mg Tablet) 650 mg PO Q6H PRN PRN Reason: Pain, Mild 1-3,fever,headache Last Admin: 08/09/24 15:55 Dose: 650 mg Documented By: RISHABH Carvedilol (Carvedilol 6.25 Mg Tablet) 6.25 mg PO BID [facility]; Protocol Last Admin: 08/10/24 08:25 Dose: 6.25 mg Documented By: PRACHI Cyanocobalamin (Cyanocobalamin (Vitamin B-12) 1,000 Mcg Tablet) 1,000 mcg PO DAILY [facility] [place] Last Admin: 08/10/24 08:25 Dose: 1,000 mcg Documented By: PRACHI Docusate Sodium (Docusate Sodium 100 Mg Capsule) 100 mg PO BID PRN PRN Reason: Constipation Ergocalciferol (Ergocalciferol (Vitamin D2) 1,250 Mcg Capsule) 1,250 mcg PO PLEITEZ@0900 [facility] [place] Ferrous Sulfate (Ferrous Sulfate 324 Mg Tablet.) 324 mg PO DAILY [facility] [place] Last Admin: 08/10/24 08:25 Dose: 324 mg Documented By: PRACHI Fluticasone Propionate (Fluticasone Propionate Nasal 16 Gm [place]) 1 spray NOSTRIL-B DAILY PRN PRN Reason: Allergy Symptoms Gabapentin (Gabapentin 400 Mg Capsule) 400 mg PO BID [facility] [place] Last Admin: 08/10/24 08:25 Dose: 400 mg Documented By: PRACHI Lactated Ringer's (Lr) 1,000 mls @ 100 mls/hr IVCONT .Q10H [facility] [place] Last Admin: 08/10/24 08:47 Dose: 100 mls/hr Documented By: EVELINE Meclizine HCl (Meclizine Hcl 12.5 Mg Tablet) 12.5 mg PO TID PRN PRN Reason: Nausea and Vomiting Melatonin (Melatonin 3 Mg Tablet) 6 mg PO BEDTIME PRN PRN Reason: Insomnia Midodrine (Midodrine Hcl 5 Mg Tablet) 5 mg PO DAILY PRN PRN Reason: Hypotension Morphine Sulfate (Morphine Sulfate 4 Mg/Ml Cartridge) 2 mg IVPUSH Q6H PRN; Protocol PRN Reason: Pain, Severe (Pain Scale 7-10) Last Admin: 08/10/24 01:20 Dose: 2 mg Documented By: RITA Multivitamins/Vitamin C (Multivitamin Tablet) 1 tab PO DAILY [facility] [place] Last Admin: 08/10/24 08:25 Dose: 1 tab Documented By: PRACHI Ondansetron HCl (Ondansetron Odt 4 Mg Tab.Rapdis) 4 mg TRANSLINGU Q6H PRN PRN Reason: Nausea and Vomiting Last Admin: 08/10/24 05:20 Dose: 4 mg Documented By: RITA Pantoprazole Sodium (Pantoprazole Sodium 40 Mg/10 Ml Vial) 40 mg IVPUSH BID@0630,1630 [facility] [place] Last Admin: 08/10/24 05:20 Dose: 40 mg Documented By: RITA Pyridoxine HCl (Pyridoxine Hcl (Vitamin B6) 50 Mg Tablet) 50 mg PO DAILY [facility] [place] Last Admin: 08/10/24 08:25 Dose: 50 mg Documented By: PRACHI Sevelamer Carbonate (Sevelamer Carbonate Tablet 800 Mg Tablet) 1,600 mg PO TIDWM [facility] [place] Last Admin: 08/10/24 08:25 Dose: 1,600 mg Documented By: PRACHI Sodium Chloride (0.9 % Sodium Chloride Flush 3 Ml Syringe) 3 ml IVFLUSH QSHIFT [facility] [place] Last Admin: 08/10/24 08:32 Dose: 3 ml Documented By: PRACHI Sucralfate (Sucralfate 1 Gm Tablet) 1 gm PO BID [facility] [place] Last Admin: 08/10/24 08:25 Dose: 1 gm Documented By: PRACHI Thiamine HCl (Thiamine Hcl 100 Mg Tablet) 100 mg PO DAILY [facility] [place] Last Admin: 08/10/24 08:25 Dose: 100 mg Documented By: PRACHI Zinc Sulfate (Zinc Sulfate 220 Mg Capsule) 220 mg PO DAILY [facility] [place] Last Admin: 08/10/24 08:25 Dose: 220 mg Documented By: PRACHI Labs 08/10/24 05:46 08/10/24 05:46 Labs: Laboratory Results - last 24 hr 08/09/24 08/09/24 08/10/24 12:34 13:36 05:46 MCV 91.4 90.5 90.8 MCH 30.5 30.8 31.0 MCHC 33.3 34.0 34.1 RDW 14.1 14.1 14.4 Plt Count 247 216 197 MPV 10.0 9.4 10.7 Immature Gran % (Auto) 0.2 Neut % (Auto) 74.8 H Lymph % (Auto) 18.9 L [place] % (Auto) 5.0 Eos % (Auto) 0.6 Baso % (Auto) 0.5 Lymph # (Auto) 1.6 [place] # (Auto) 0.4 Eos # (Auto) 0.1 Baso # (Auto) 0.0 Abs Immat Gran (auto) 0.02 Absolute Neuts (auto) 6.3 Absolute Nucleated RBC 0.000 0.000 0.000 Nucleated RBC % (auto) 0.0 0.0 0.0 PT 12.4 INR 1.1 APTT 32.1 Anion Gap 15 15 Estim Creat Clear Calc 9.9 9.4 Estimated GFR 8 7 Random Glucose 95 72 Lactic Acid 0.7 Calcium 9.7 8.7 D Total Bilirubin 0.4 AST 27 ALT 13 Alkaline Phosphatase 155 H Total Protein 6.6 Albumin 3.7 Lipase 53 Assessment and Plan (1) End stage chronic kidney disease: Status: Acute (2) Acute GI bleeding: Status: Resolved Plan Pt is a 54-year-old female with a PMH significant for?ESRD on HD M/W/F, 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 Pt is admitted to the hospital for treatment and further evaluation of coffee ground emesis concerning for recurrent UGIB. Medication reconcilliation not completed at time of exam and note. Recurrent GI bleed Pt with hematemesis, coffee-ground emesis, chest and abdominal pain since early this morning which has improved after morphine and Protonix Long hx of recurrent UGIB from gastric ulcers as complication from Bariatric surgery performed at [facility] Recent hospitalization here for similar symptoms, last discharged on 05/21/2024 EGD found gastritis and congestion anastomotic ulcers without major active bleeding H&H stable at 11.3/33.2 Protonix 40 mgs b.i.d. Antiemetics, analgesics Clear liquid diet for now, advance as tolerated NPO after midnight for possible EGD in the morning ESRD on HD M/W/F Missed dialysis today Nephrology consult, follows with [facility] Hyperkalemis Likely due to missed dialysis Lokelma and follow level Hypertension Continue home meds, HD Monitor BP HLD Continue statin Mood disorder Continue home meds CODE STATUS; FULL CODE VTE Prophylaxis: Compression Quality Stroke Does the patient have a stroke diagnosis?: No VTE Prior VTE?: No VTE Risk Level:: Medical - moderate - high VTE Device Contraindication: N/A - Device Ordered VTE Drug Contraindication: Treatment Not Indicated
--- NOTE | 2024-08-10 09:38 | P.HPHOSP_ITS ---
History of Present Illness Date of Service: 08/09/24 Attending physician on admission: Heidi Melgar Chief Complaint: ?GI bleed, Anemia, ESRD 54? year old woman with hx of end-stage renal disease on hemodialysis (MWF), GERD, hemorrhoids, fibromyalgia, Chronic low back pain, diverticulosis, gastric sleeve surgery, s/p revision of gastric bypass at [facility] and essential hypertension who presented to the hospital for vomiting and? coffee-ground emesis.? Patient has been previously admitted for UGIB secondary to? bleeding from marginal ulcers. She required blood transfusions and EGD on 05/20/2024 which revealed anastomotic ulcers without bleeding and gastritis. Day before admission she reports that she vomited bile and phlegm yesterday at 12 noon a couple of times.? She reports that she felt better, ate a hamburger and some red wine for dinner, woke up around 1:00 am? with diarrhea and continued vomiting.? She reports that the vomitus was the color of coffee.? Patient also reported abdominal pain in her epigastric region. She denies any recent URI symptoms, no restaurant food, No unusual dietary changes, has been taking her medications as ordered. She reports going to her dialysis treatments regularly but did not feel well enough to go today. She denies any dysuria, denies any unusual vaginal symptoms, denies constipation.? On arrival to the emergency room hemoglobin was 12. On repeat? 11.3. HGB noted to be 14.6 on July 18. On exam, she reports no abdominal pain, no nausea, or vomiting.? Last episode of coffee-ground emesis was 1am this morning. Her K+ is 5.3, she received dose of Lokelma. She received morphine, zofran and protonix in ED. Also received bolus of LR.? She will be admitted for further management of GI bleeding.? 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 Lumbar back pain with radiculopathy affecting left lower extremity Physical exam (~02/14/21) Peritoneal dialysis catheter in place Polyarthralgia Dyslipidemia Family history of ovarian cancer Abnormal mammogram of right breast Angina pectoris syndrome Chest pain Constipation Nephrosclerosis Renal interstitial fibrosis Obesity (BMI 30-39.9) Back pain GERD (gastroesophageal reflux disease) History of headache HTN (hypertension) Family History Father Asthma Mother Asthma Hypertension Ovarian cancer Maternal Grandfather Myocardial infarction Paternal Grandmother Stroke Surgical History History of sleeve gastrectomy S/P arteriovenous (AV) graft placement Fistula Hx of colonoscopy Hx of hysterectomy Hx of tubal ligation History of endometrial ablation Social History Household Members: Children Household Members Other:: 30 year old special needs son Housing: Apartment Are you a primary insurance healthcare representative to a significant other at home: No Do you presently have visiting nurse or other home services: Yes Alcohol intake: never Comment: low fall risk Patient Tobacco Use Status: Never used Tobacco Tobacco use type: Cigarette Cigarette Packs Per Day: 1 Cigarettes Per Day: 1 Years Smoked: 10+ Smoked in Last 30 Days: Yes e-Cigarette/Vaping Use: Never Used Patient Interested in Nicotine Replacement: Yes Patient Given Instructions on How to Stop Smoking: No Second Hand Smoke Exposure: No Use of substances other than those prescribed or required for medical reasons: No Substance Use Type: Caffiene Currently Displaying Signs/Symptoms of Drug Intoxication Withdrawal: No Have you been hit, kicked, punched, or otherwise hurt by someone within the past year? If so, by whom?: No Do you feel safe in your current relationship?: No Current Relationship Is there a partner from a previous relationship who is making you feel unsafe now?: No Are you made to feel afraid or neglected: No Advance Directives: Yes Advance Directives on File: Yes Advance Directives Date on File: 04/27/20 Do you have a plan to hurt others: No Plan Recently lost weight without trying: Yes How much weight loss: 2-13 pounds Eating poorly because of decreased appetite: Yes Nutrition screen score: 4 Nutrition Risks: Poor intake 0-25% >4 days Patient : No : No Poor oral hygiene: No service: No Current occupational status: employed Cognitive needs: No Hearing needs: No Vision needs: Yes (reading glasses) Meds Allergies Allergy/AdvReac Type Severity Reaction Status Date / Time ibuprofen Allergy Severe Unknown Verified 08/09/24 12:19 nifedipine Allergy Intermediate hives, leg Verified 08/09/24 12:19 edema Active Medications: Current Medications Acetaminophen (Acetaminophen 325 Mg Tablet) 650 mg PO Q6H PRN PRN Reason: Pain, Mild 1-3,fever,headache Last Admin: 08/09/24 15:55 Dose: 650 mg Carvedilol (Carvedilol 6.25 Mg Tablet) 6.25 mg PO BID COUNTS INCLUDE 234 BEDS AT THE [facility]; Protocol Last Admin: 08/10/24 08:25 Dose: 6.25 mg Cyanocobalamin (Cyanocobalamin (Vitamin B-12) 1,000 Mcg Tablet) 1,000 mcg PO DAILY COUNTS INCLUDE 234 BEDS AT THE [facility] Last Admin: 08/10/24 08:25 Dose: 1,000 mcg Docusate Sodium (Docusate Sodium 100 Mg Capsule) 100 mg PO BID PRN PRN Reason: Constipation Ergocalciferol (Ergocalciferol (Vitamin D2) 1,250 Mcg Capsule) 1,250 mcg PO PLEITEZ@0900 COUNTS INCLUDE 234 BEDS AT THE [facility] Ferrous Sulfate (Ferrous Sulfate 324 Mg Tablet.Dr) 324 mg PO DAILY COUNTS INCLUDE 234 BEDS AT THE [facility] Last Admin: 08/10/24 08:25 Dose: 324 mg Fluticasone Propionate (Fluticasone Propionate Nasal 16 Gm [place]) 1 spray NOSTRIL-B DAILY PRN PRN Reason: Allergy Symptoms Gabapentin (Gabapentin 400 Mg Capsule) 400 mg PO BID COUNTS INCLUDE 234 BEDS AT THE [facility] Last Admin: 08/10/24 08:25 Dose: 400 mg Lactated Ringer's (Lr) 1,000 mls @ 100 mls/hr IVCONT .Q10H COUNTS INCLUDE 234 BEDS AT THE [facility] Last Admin: 08/10/24 08:47 Dose: 100 mls/hr Meclizine HCl (Meclizine Hcl 12.5 Mg Tablet) 12.5 mg PO TID PRN PRN Reason: Nausea and Vomiting Melatonin (Melatonin 3 Mg Tablet) 6 mg PO BEDTIME PRN PRN Reason: Insomnia Midodrine (Midodrine Hcl 5 Mg Tablet) 5 mg PO DAILY PRN PRN Reason: Hypotension Morphine Sulfate (Morphine Sulfate 4 Mg/Ml Cartridge) 2 mg IVPUSH Q6H PRN; Protocol PRN Reason: Pain, Severe (Pain Scale 7-10) Last Admin: 08/10/24 01:20 Dose: 2 mg Multivitamins/Vitamin C (Multivitamin Tablet) 1 tab PO DAILY COUNTS INCLUDE 234 BEDS AT THE [facility] Last Admin: 08/10/24 08:25 Dose: 1 tab Ondansetron HCl (Ondansetron Odt 4 Mg Tab.Rapdis) 4 mg TRANSLINGU Q6H PRN PRN Reason: Nausea and Vomiting Last Admin: 08/10/24 05:20 Dose: 4 mg Pantoprazole Sodium (Pantoprazole Sodium 40 Mg/10 Ml Vial) 40 mg IVPUSH BID@0630,1630 COUNTS INCLUDE 234 BEDS AT THE [facility] Last Admin: 08/10/24 05:20 Dose: 40 mg Pyridoxine HCl (Pyridoxine Hcl (Vitamin B6) 50 Mg Tablet) 50 mg PO DAILY COUNTS INCLUDE 234 BEDS AT THE [facility] Last Admin: 08/10/24 08:25 Dose: 50 mg Sevelamer Carbonate (Sevelamer Carbonate Tablet 800 Mg Tablet) 1,600 mg PO TIDWM COUNTS INCLUDE 234 BEDS AT THE [facility] Last Admin: 08/10/24 08:25 Dose: 1,600 mg Sodium Chloride (0.9 % Sodium Chloride Flush 3 Ml Syringe) 3 ml IVFLUSH QSHIFT COUNTS INCLUDE 234 BEDS AT THE [facility] Last Admin: 08/10/24 08:32 Dose: 3 ml Sucralfate (Sucralfate 1 Gm Tablet) 1 gm PO BID COUNTS INCLUDE 234 BEDS AT THE [facility] Last Admin: 08/10/24 08:25 Dose: 1 gm Thiamine HCl (Thiamine Hcl 100 Mg Tablet) 100 mg PO DAILY COUNTS INCLUDE 234 BEDS AT THE [facility] Last Admin: 08/10/24 08:25 Dose: 100 mg Zinc Sulfate (Zinc Sulfate 220 Mg Capsule) 220 mg PO DAILY COUNTS INCLUDE 234 BEDS AT THE [facility] Last Admin: 08/10/24 08:25 Dose: 220 mg Home Medications ?Medication ?Instructions ?Recorded ?Confirmed ?Last Taken ?Type ferrous sulfate 325 mg (65 mg 325 mg PO DAILY 05/11/20 08/09/24 06/03/24 History iron) tablet,delayed release cyanocobalamin (vitamin B-12) 1,000 mcg PO DAILY 10/1708/09/24 06/03/24 History 1,000 mcg tablet midodrine 5 mg tablet 5 mg PO DAILY PRN Hypotensio n 03/25/23 08/09/24 05/18/24 History acetaminophen 500 mg capsule 1,000 mg PO Q8H PRN Pain 08/10/23 08/09/24 05/18/24 History (Mapap (acetaminophen)) fluticasone propionate 50 1 spray intranasal DAILY PRN 08/10/23 08/09/24 05/18/24 History mcg/actuation nasal Allergy Symptoms spray,suspension [id number] 45 mg-folic 1 cap PO DAILY 07/1308/09/24 06/03/24 History acid 800 mcg-vit K 120 mcg capsule (Bariatric Multivitamins) parenteral amino acid 15% no.5 15 0.5 ea IV MOWEFR@090 0 08/10/23 08/09/24 06/02/24 History % combination no.5 intravenous solution (Clinisol SF) sucralfate 1 gram tablet 1 g PO BID 08/10/23 08/09/24 06/03/24 History zinc acetate 50 mg (zinc) capsule 100 mg PO DAILY 11/0408/09/24 06/03/24 History ergocalciferol (vitamin D2) 1,250 1,250 mcg PO PLEITEZ@0900 06/04/24 08/09/24 05/23/24 History mcg (50,000 unit) capsule (Vitamin D2) meclizine 12.5 mg tablet 12.5 mg PO TID PRN Nausea An d 06/04/24 08/09/24 06/04/24 History Vomiting omeprazole 40 mg capsule,delayed 40 mg PO BID@0630,163 0 06/04/24 08/09/24 06/03/24 History release sevelamer carbonate 800 mg tablet 1,600 mg PO TIDWM 08/09/24 06/03/24 History Physical Exam 2 Vital Signs and Narrative: Vital Signs: Last Vital Signs Temp 98.2 F 08/09/24 12:17 Pulse 91 08/09/24 12:17 Resp 22 08/09/24 12:37 BP 191/98 H 08/09/24 12:17 Pulse Ox 100 08/09/24 12:17 O2 Del Method Room Air 08/09/24 12:17 BMI result Body Mass Index 24.8 CONST: Alert and oriented, in NAD. Well nourished? HEENT: Normocephalic, atraumatic, MMM, Eyes clear, Neck supple RESP: Lungs clear, RRR even and regular HEART:,RRR, S1, S2. No edema? GI:Abdomen Soft NT, ND. + BS times four? :Deferred? SKIN: Warm dry and intact, no visible lesions or rashes? NEURO:CN II-XII Intact bilaterally, Sensation intact. Speech clear?? PSYCH: Normal affect Results Labs 08/10/24 05:46 08/10/24 05:46 Labs: Laboratory Results - last 24 hr 08/09/24 08/09/24 08/10/24 12:34 13:36 05:46 MCV 91.4 90.5 90.8 MCH 30.5 30.8 31.0 MCHC 33.3 34.0 34.1 RDW 14.1 14.1 14.4 Plt Count 247 216 197 MPV 10.0 9.4 10.7 Immature Gran % (Auto) 0.2 Neut % (Auto) 74.8 H Lymph % (Auto) 18.9 L [place] % (Auto) 5.0 Eos % (Auto) 0.6 Baso % (Auto) 0.5 Lymph # (Auto) 1.6 [place] # (Auto) 0.4 Eos # (Auto) 0.1 Baso # (Auto) 0.0 Abs Immat Gran (auto) 0.02 Absolute Neuts (auto) 6.3 Absolute Nucleated RBC 0.000 0.000 0.000 Nucleated RBC % (auto) 0.0 0.0 0.0 PT 12.4 INR 1.1 APTT 32.1 Anion Gap 15 15 Estim Creat Clear Calc 9.9 9.4 Estimated GFR 8 7 Random Glucose 95 72 Lactic Acid 0.7 Calcium 9.7 8.7 D Total Bilirubin 0.4 AST 27 ALT 13 Alkaline Phosphatase 155 H Total Protein 6.6 Albumin 3.7 Lipase 53 Assessment and Plan (1) UGIB (upper gastrointestinal bleed): Status: Resolved Plan Pt is a 54-year-old female with a PMH significant for ESRD on HD M/W/F, 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 Pt is admitted to the hospital for treatment and further evaluation of coffee ground emesis concerning for recurrent UGIB. Medication reconcilliation not completed at time of exam and note.? Recurrent GI bleed Pt with hematemesis, coffee-ground emesis, chest and abdominal pain since early this morning which has improved after morphine and Protonix Long hx of recurrent UGIB from gastric ulcers as complication from Bariatric surgery performed at [facility] [place] Recent hospitalization here for similar symptoms, last discharged on 05/21/2024 EGD found gastritis and congestion anastomotic ulcers without major active bleeding H&H stable at 11.3/33.2 Protonix 40 mgs? b.i.d. Antiemetics, analgesics Clear liquid diet for now, advance as tolerated NPO after midnight for possible EGD in the morning GI consult ESRD on HD M/W/F Missed dialysis today? Nephrology consult, follows with [facility] Hyperkalemis Likely due to missed dialysis Received [facility]? Hypertension? Continue home meds, HD Monitor BP HLD Continue statin Mood disorder Continue home meds CODE STATUS; FULL CODE VTE Prophylaxis: Compression? Quality Stroke Does the patient have a stroke diagnosis?: No VTE Prior VTE?: No VTE Risk Level:: Medical - moderate - high VTE Device Contraindication: N/A - Device Ordered VTE Drug Contraindication: Treatment Not Indicated
--- NOTE | 2024-08-10 10:14 | MHC.CM.PN ---
IMM DELIVERED LIVES WITH SPECIAL NEEDS SON, USES [facility] FOR MOBILITY. 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 PT ATTENDS HD AT [facility] AT 10:30AM. [employer] [employer]TS. + HCP ON FILE. PCP DR. GUNN AT [facility] DP: HOME WITH RESUMPTION OF STAGE TECHNICIAN SERVICES. PT HAS OWN RIDE HOME. CM WILL CONTINUE TO FOLLOW FOR ANY CHANGE TO DC PLAN/NEEDS.
[2024-08-10 20:45] LABS: MANUAL DIFF FLAG NO
[2024-08-10 20:46] LABS: Hematocrit 26.9 % (37.0-47.0); Hemoglobin 9.4 g/dl (12.0-16.0); Imm Gran Abs Auto 0.01 X10*3/uL (0.00-0.03); Imm Gran Pct Auto 0.2 % (0.0-0.4); Lymphocytes Absolute Auto 1.9 X10*3/uL (1.2-4.9); Mean Corpuscular HGB Conc 34.9 g/dl (31.0-35.0); Mean Corpuscular Hemoglobin 31.5 pg (27.0-33.0); Mean Corpuscular Volume 90.3 fL (80.0-98.0); NRBC Abs Auto 0.000 X10*3/uL (0.0-0.012); NRBC Pct Auto 0.0 /100WBC (0.0-0.2); Platelet Count 183 X10*3/uL (160-400); Red Blood Count 2.98 X10*6/uL (4.20-5.50); White Blood Count 5.0 X10*3/uL (4.8-10.8)
[2024-08-11] VITALS (9 sets, daily range): BP systolic 104–121; BP diastolic 58–69; PULSE 67–80; RESP 15–20; TEMP 36–37; O2SAT 96–100
[2024-08-11 06:19] LABS: Hematocrit 30.1 % (37.0-47.0); Hemoglobin 10.3 g/dl (12.0-16.0); Mean Corpuscular HGB Conc 34.2 g/dl (31.0-35.0); Mean Corpuscular Hemoglobin 31.4 pg (27.0-33.0); Mean Corpuscular Volume 91.8 fL (80.0-98.0); NRBC Abs Auto 0.000 X10*3/uL (0.0-0.012); NRBC Pct Auto 0.0 /100WBC (0.0-0.2); Platelet Count 186 X10*3/uL (160-400); Red Blood Count 3.28 X10*6/uL (4.20-5.50); White Blood Count 4.3 X10*3/uL (4.8-10.8)
[2024-08-11 06:42] LABS: Anion Gap 12 (12-20); Blood Urea Nitrogen 53 mg/dL (9-16); Calcium 9.1 mg/dL (8.4-10.2); Carbon Dioxide 26 mmol/L (22-29); Chloride 103 mmol/L (96-108); Creatinine Clr Calc Pharmacy 9.2; Estimated Glomerular Filt Rate 7; Potassium 5.4 mmol/L (3.3-5.1); Sodium 136 mmol/L (135-145)
[2024-08-11] MEDS: 0.9 % Sodium Chloride Flush 3 ML SYRINGE IVFLUSH ×3 (08:04→22:17)
--- NOTE | 2024-08-11 08:25 | P.PNIM_ITS ---
Subjective Subjective Date of Service: 08/11/24 Interval History: f/u on gib No bleeding overnight, H/H is better EGD planned for today Dialysis at 10:15 x 3 hrs Physical Exam 2 Vital Signs: Vital Signs: Last Vital Signs Temp 96.8 F 08/11/24 08:00 Pulse 71 08/11/24 08:00 Resp 16 08/11/24 08:00 BP 104/58 L 08/11/24 08:00 Pulse Ox 96 08/11/24 08:00 O2 Del Method Room Air 08/11/24 08:00 BMI result Body Mass Index 24.8 Const: Other: General: AO X 3, no acute distress Resp: CTA bilateral CVS: S1,S2,RRR GI: +BS, NT, no distention Skin: No rash Neuro: motor grossly intact Psych: appropriate affect Objective Data Active Medications Acetaminophen (Acetaminophen 325 Mg Tablet) 650 mg PO Q6H PRN PRN Reason: Pain, Mild 1-3,fever,headache Last Admin: 08/09/24 15:55 Dose: 650 mg Documented By: RISHABH Carvedilol (Carvedilol 6.25 Mg Tablet) 6.25 mg PO BID [facility]; Protocol Last Admin: 08/10/24 20:39 Dose: 6.25 mg Documented By: RITA Cyanocobalamin (Cyanocobalamin (Vitamin B-12) 1,000 Mcg Tablet) 1,000 mcg PO DAILY [facility] Last Admin: 08/10/24 08:25 Dose: 1,000 mcg Documented By: PRACHI Docusate Sodium (Docusate Sodium 100 Mg Capsule) 100 mg PO BID PRN PRN Reason: Constipation Ergocalciferol (Ergocalciferol (Vitamin D2) 1,250 Mcg Capsule) 1,250 mcg PO PLEITEZ@0900 [facility] Ferrous Sulfate (Ferrous Sulfate 324 Mg Tablet.) 324 mg PO DAILY [facility] Last Admin: 08/10/24 08:25 Dose: 324 mg Documented By: PRACHI Fluticasone Propionate (Fluticasone Propionate Nasal 16 Gm [place]) 1 spray NOSTRIL-B DAILY PRN PRN Reason: Allergy Symptoms Gabapentin (Gabapentin 400 Mg Capsule) 400 mg PO BID [facility] Last Admin: 08/11/24 08:03 Dose: 400 mg Documented By: CRISTINE Meclizine HCl (Meclizine Hcl 12.5 Mg Tablet) 12.5 mg PO TID PRN PRN Reason: Nausea and Vomiting Melatonin (Melatonin 3 Mg Tablet) 6 mg PO BEDTIME PRN PRN Reason: Insomnia Midodrine (Midodrine Hcl 5 Mg Tablet) 5 mg PO DAILY PRN PRN Reason: Hypotension Morphine Sulfate (Morphine Sulfate 4 Mg/Ml Cartridge) 2 mg IVPUSH Q6H PRN; Protocol PRN Reason: Pain, Severe (Pain Scale 7-10) Last Admin: 08/11/24 08:15 Dose: 2 mg Documented By: CRISTINE Multivitamins/Vitamin C (Multivitamin Tablet) 1 tab PO DAILY [facility] Last Admin: 08/10/24 08:25 Dose: 1 tab Documented By: PRACHI Ondansetron HCl (Ondansetron Odt 4 Mg Tab.Rapdis) 4 mg TRANSLINGU Q6H PRN PRN Reason: Nausea and Vomiting Last Admin: 08/10/24 18:38 Dose: 4 mg Documented By: PRACHI Pantoprazole Sodium (Pantoprazole Sodium 40 Mg/10 Ml Vial) 40 mg IVPUSH BID@0630,1630 [facility] Last Admin: 08/11/24 05:40 Dose: 40 mg Documented By: NETTA Pyridoxine HCl (Pyridoxine Hcl (Vitamin B6) 50 Mg Tablet) 50 mg PO DAILY [facility] Last Admin: 08/10/24 08:25 Dose: 50 mg Documented By: PRACHI Sevelamer Carbonate (Sevelamer Carbonate Tablet 800 Mg Tablet) 1,600 mg PO TIDWM [facility] Last Admin: 08/10/24 17:19 Dose: 1,600 mg Documented By: PRACHI Sodium Chloride (0.9 % Sodium Chloride Flush 3 Ml Syringe) 3 ml IVFLUSH QSHIFT [facility] Last Admin: 08/11/24 08:04 Dose: 3 ml Documented By: CRISTINE Sucralfate (Sucralfate 1 Gm Tablet) 1 gm PO BID [facility] Last Admin: 08/11/24 08:03 Dose: 1 gm Documented By: CRISTINE Thiamine HCl (Thiamine Hcl 100 Mg Tablet) 100 mg PO DAILY [facility] Last Admin: 08/10/24 08:25 Dose: 100 mg Documented By: PRACHI Zinc Sulfate (Zinc Sulfate 220 Mg Capsule) 220 mg PO DAILY [facility] Last Admin: 08/10/24 08:25 Dose: 220 mg Documented By: PRACHI Labs 08/11/24 05:50 08/11/24 05:50 Labs: Laboratory Results - last 24 hr 08/10/24 08/11/24 20:20 05:50 MCV 90.3 91.8 MCH 31.5 31.4 MCHC 34.9 34.2 RDW 14.2 14.1 Plt Count 183 186 MPV 9.8 9.8 Immature Gran % (Auto) 0.2 Neut % (Auto) 47.5 Lymph % (Auto) 38.4 [place] % (Auto) 8.5 Eos % (Auto) 4.6 H Baso % (Auto) 0.8 Lymph # (Auto) 1.9 [place] # (Auto) 0.4 Eos # (Auto) 0.2 Baso # (Auto) 0.0 Abs Immat Gran (auto) 0.01 Absolute Neuts (auto) 2.4 Absolute Nucleated RBC 0.000 0.000 Nucleated RBC % (auto) 0.0 0.0 Anion Gap 12 Estim Creat Clear Calc 9.2 Estimated GFR 7 Random Glucose 75 Calcium 9.1 Assessment and Plan (1) End stage chronic kidney disease: Status: Acute (2) Acute GI bleeding: Status: Resolved Plan Pt is a 54-year-old female with a PMH significant for?ESRD on HD M/W/F, 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 Pt is admitted to the hospital for treatment and further evaluation of coffee ground emesis concerning for recurrent UGIB. Medication reconcilliation not completed at time of exam and note. Recurrent GI bleed Pt with hematemesis, coffee-ground emesis, chest and abdominal pain since early this morning which has improved after morphine and Protonix Long hx of recurrent UGIB from gastric ulcers as complication from Bariatric surgery performed at [facility] Recent hospitalization here for similar symptoms, last discharged on 05/21/2024 EGD found gastritis and congestion anastomotic ulcers without major active bleeding H&H stable at 11.3/33.2 Protonix 40 mgs b.i.d. Antiemetics, analgesics EGD today ESRD on HD M/W/F Nephrology consult, follows with [facility] Hyperkalemia, K 5.4 Lokelma and dialysis today Hypertension Continue home meds, HD Monitor BP HLD Continue statin Mood disorder Continue home meds CODE STATUS; FULL CODE VTE Prophylaxis: Compression Possible dc after dialysis Quality Stroke Does the patient have a stroke diagnosis?: No VTE Prior VTE?: No VTE Risk Level:: Medical - moderate - high VTE Device Contraindication: N/A - Device Ordered VTE Drug Contraindication: Treatment Not Indicated
--- NOTE | 2024-08-11 14:09 | P.CONAN_ITS ---
HPI - Anesthesia Eval Consult details Narrative: 54 yo F presenting for EGD. ESRD on HD - received dialysis today. [facility] Active Problems Active Problems: All Active Problems (Updated 08/10/24 @ 16:53 by Faraz Warner MD) UGIB (upper gastrointestinal bleed) (Acute) End stage chronic kidney disease (Acute) Radiculopathy, lumbar region (Acute) Hidradenitis suppurativa of multiple sites (Acute) Superior mesenteric artery stenosis (Acute) Underweight (Acute) Suprapubic pain (Acute) Syncope (Acute) Schatzki's ring (Acute) Gastritis (Acute) Esophagitis (Acute) Idiopathic hypotension (Acute) Moderate major depression (Acute) Systolic murmur (Acute) Malnutrition (Acute) Pre-op examination (Acute) Non-cardiac chest pain (Acute) Polyp of right nasal cavity (Acute) Numbness (Acute) Palpitations (Acute) Urinary and fecal incontinence (Acute) Anxiety and depression (Acute) Chronic low back pain (Acute) Fatigue (Acute) Nasal polyp, benign (Acute) Anxiety and depression (Acute) LLQ abdominal pain (Acute) Tubular adenoma of colon (Acute) Anxiety (Acute) Chronic renal insufficiency (Acute) Spinal stenosis (Acute) 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 (Acute) Lumbar back pain with radiculopathy affecting left lower extremity (Acute) GERD (gastroesophageal reflux disease) (Acute) Polyarthralgia (Acute) Dyslipidemia (Acute) Family history of ovarian cancer (Acute) Abnormal mammogram of right breast (Acute) Chest pain (Acute) Obesity (BMI 30-39.9) (Acute) HTN (hypertension) (Acute) Past Medical History Medical History (Updated 08/10/24 @ 16:53 by Faraz Warner MD) End stage chronic kidney disease Marginal ulcer ESRD (end stage renal disease) ESRD on dialysis Smoker Moderate major depression Physical exam Spondylosis without myelopathy or radiculopathy, lumbar region Spinal stenosis 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 Lumbar back pain with radiculopathy affecting left lower extremity Physical exam (~02/14/21) Peritoneal dialysis catheter in place Polyarthralgia Dyslipidemia Family history of ovarian cancer Abnormal mammogram of right breast Angina pectoris syndrome Chest pain Constipation Nephrosclerosis Renal interstitial fibrosis Obesity (BMI 30-39.9) Back pain GERD (gastroesophageal reflux disease) History of headache HTN (hypertension) Family History Family History Father Asthma Mother Asthma Hypertension Ovarian cancer Maternal Grandfather Myocardial infarction Paternal Grandmother Stroke Family history of problems with anesthesia: No Surgical History Surgical History History of sleeve gastrectomy S/P arteriovenous (AV) graft placement Fistula Hx of colonoscopy Hx of hysterectomy Hx of tubal ligation History of endometrial ablation History of Problems with Anesthesia: No Social History Social History Household Members: Children Household Members Other:: 30 year old special needs son Housing: Apartment Are you a primary primary care coordinator to a significant other at home: No Do you presently have visiting nurse or other home services: Yes Alcohol intake: never Comment: low fall risk Patient Tobacco Use Status: Never used Tobacco Tobacco use type: Cigarette Cigarette Packs Per Day: 1 Cigarettes Per Day: 1 Years Smoked: 10+ Smoked in Last 30 Days: Yes e-Cigarette/Vaping Use: Never Used Patient Interested in Nicotine Replacement: Yes Patient Given Instructions on How to Stop Smoking: No Second Hand Smoke Exposure: No Use of substances other than those prescribed or required for medical reasons: No Substance Use Type: Caffiene Currently Displaying Signs/Symptoms of Drug Intoxication Withdrawal: No Have you been hit, kicked, punched, or otherwise hurt by someone within the past year? If so, by whom?: No Do you feel safe in your current relationship?: No Current Relationship Is there a partner from a previous relationship who is making you feel unsafe now?: No Are you made to feel afraid or neglected: No Advance Directives: Yes Advance Directives on File: Yes Advance Directives Date on File: 04/27/20 Do you have a plan to hurt others: No Plan Recently lost weight without trying: Yes How much weight loss: 2-13 pounds Eating poorly because of decreased appetite: Yes Nutrition screen score: 4 Nutrition Risks: Poor intake 0-25% >4 days Patient : No : No Poor oral hygiene: No service: No Current occupational status: employed Cognitive needs: No Hearing needs: No Vision needs: Yes (reading glasses) Meds Allergies Allergy/AdvReac Type Severity Reaction Status Date / Time ibuprofen Allergy Severe Unknown Verified 08/09/24 12:19 nifedipine Allergy Intermediate hives, leg Verified 08/09/24 12:19 edema Active Medications: Current Medications Acetaminophen (Acetaminophen 325 Mg Tablet) 650 mg PO Q6H PRN PRN Reason: Pain, Mild 1-3,fever,headache Last Admin: 08/11/24 12:57 Dose: 650 mg Carvedilol (Carvedilol 6.25 Mg Tablet) 6.25 mg PO BID [facility]; Protocol Last Admin: 08/11/24 10:10 Dose: Not Given Cyanocobalamin (Cyanocobalamin (Vitamin B-12) 1,000 Mcg Tablet) 1,000 mcg PO DAILY [facility] Last Admin: 08/11/24 10:10 Dose: Not Given Docusate Sodium (Docusate Sodium 100 Mg Capsule) 100 mg PO BID PRN PRN Reason: Constipation Ergocalciferol (Ergocalciferol (Vitamin D2) 1,250 Mcg Capsule) 1,250 mcg PO PLEITEZ@0900 [facility] Ferrous Sulfate (Ferrous Sulfate 324 Mg Tablet.Dr) 324 mg PO DAILY [facility] Last Admin: 08/11/24 10:10 Dose: Not Given Fluticasone Propionate (Fluticasone Propionate Nasal 16 Gm [place]) 1 spray NOSTRIL-B DAILY PRN PRN Reason: Allergy Symptoms Gabapentin (Gabapentin 400 Mg Capsule) 400 mg PO BID [facility] Last Admin: 08/11/24 08:03 Dose: 400 mg Sodium Chloride (Ns) 500 mls @ 20 mls/hr IVCONT .Q24H [facility] Meclizine HCl (Meclizine Hcl 12.5 Mg Tablet) 12.5 mg PO TID PRN PRN Reason: Nausea and Vomiting Melatonin (Melatonin 3 Mg Tablet) 6 mg PO BEDTIME PRN PRN Reason: Insomnia Midodrine (Midodrine Hcl 5 Mg Tablet) 5 mg PO DAILY PRN PRN Reason: Hypotension Morphine Sulfate (Morphine Sulfate 4 Mg/Ml Cartridge) 2 mg IVPUSH Q6H PRN; Protocol PRN Reason: Pain, Severe (Pain Scale 7-10) Last Admin: 08/11/24 08:15 Dose: 2 mg Multivitamins/Vitamin C (Multivitamin Tablet) 1 tab PO DAILY [facility] Last Admin: 08/11/24 10:11 Dose: Not Given Ondansetron HCl (Ondansetron Odt 4 Mg Tab.Rapdis) 4 mg TRANSLINGU Q6H PRN PRN Reason: Nausea and Vomiting Last Admin: 08/10/24 18:38 Dose: 4 mg Ondansetron HCl (Ondansetron Hcl 4 Mg/2 Ml Vial) 4 mg IVPUSH ONCE PRN PRN Reason: Nausea and Vomiting Stop: 08/11/24 20:08 Pantoprazole Sodium (Pantoprazole Sodium 40 Mg/10 Ml Vial) 40 mg IVPUSH BID@0630,1630 [facility] Last Admin: 08/11/24 05:40 Dose: 40 mg Pyridoxine HCl (Pyridoxine Hcl (Vitamin B6) 50 Mg Tablet) 50 mg PO DAILY [facility] Last Admin: 08/11/24 10:11 Dose: Not Given Sevelamer Carbonate (Sevelamer Carbonate Tablet 800 Mg Tablet) 1,600 mg PO TIDWM [facility] Last Admin: 08/11/24 13:55 Dose: Not Given Sodium Chloride (0.9 % Sodium Chloride Flush 3 Ml Syringe) 3 ml IVFLUSH QSHIFT [facility] Last Admin: 08/11/24 08:04 Dose: 3 ml Sucralfate (Sucralfate 1 Gm Tablet) 1 gm PO BID [facility] Last Admin: 08/11/24 08:03 Dose: 1 gm Thiamine HCl (Thiamine Hcl 100 Mg Tablet) 100 mg PO DAILY [facility] Last Admin: 08/11/24 10:11 Dose: Not Given Zinc Sulfate (Zinc Sulfate 220 Mg Capsule) 220 mg PO DAILY [facility] Last Admin: 08/11/24 10:12 Dose: Not Given Home Medications ?Medication ?Instructions ?Recorded ?Confirmed ?Last Taken ?Type ferrous sulfate 325 mg (65 mg 325 mg PO DAILY 05/11/20 08/09/24 06/03/24 History iron) tablet,delayed release cyanocobalamin (vitamin B-12) 1,000 mcg PO DAILY 10/1708/09/24 06/03/24 History 1,000 mcg tablet midodrine 5 mg tablet 5 mg PO DAILY PRN Hypotensio n 03/25/23 08/09/24 05/18/24 History acetaminophen 500 mg capsule 1,000 mg PO Q8H PRN Pain 08/10/23 08/09/24 05/18/24 History (Mapap (acetaminophen)) fluticasone propionate 50 1 spray intranasal DAILY PRN 08/10/23 08/09/24 05/18/24 History mcg/actuation nasal Allergy Symptoms spray,suspension lieqdlic-[id number]-[id number] 45 mg-folic 1 cap PO DAILY 07/1308/09/24 06/03/24 History acid 800 mcg-vit K 120 mcg capsule (Bariatric Multivitamins) parenteral amino acid 15% no.5 15 0.5 ea IV MOWEFR@090 0 08/10/23 08/09/24 06/02/24 History % combination no.5 intravenous solution (Clinisol SF) sucralfate 1 gram tablet 1 g PO BID 08/10/23 08/09/24 06/03/24 History zinc acetate 50 mg (zinc) capsule 100 mg PO DAILY 11/0408/09/24 06/03/24 History ergocalciferol (vitamin D2) 1,250 1,250 mcg PO PLEITEZ@0900 06/04/24 08/09/24 05/23/24 History mcg (50,000 unit) capsule (Vitamin D2) meclizine 12.5 mg tablet 12.5 mg PO TID PRN Nausea An d 06/04/24 08/09/24 06/04/24 History Vomiting omeprazole 40 mg capsule,delayed 40 mg PO BID@0630,163 0 06/04/24 08/09/24 06/03/24 History release sevelamer carbonate 800 mg tablet 1,600 mg PO TIDWM 08/09/24 06/03/24 History Exam Exam Date and Time: 08/11/24 1405 Height,Weight and Vital Signs: Height 5 ft 4 in Weight 65.5 kg Last Vital Signs Temp 96.8 F 08/11/24 08:00 Pulse 71 08/11/24 08:00 Resp 16 08/11/24 08:00 BP 104/58 L 08/11/24 08:00 Pulse Ox 96 08/11/24 08:00 O2 Del Method Room Air 08/11/24 08:00 Pertinent Lab Results Pertinent Lab Results: Laboratory Tests 08/09/24 08/09/24 08/09/24 12:34 13:36 19:26 WBC 8.4 7.3 RBC 3.94 L 3.67 L Hgb 12.0 11.3 L 10.1 L Hct 36.0 L 33.2 L 29.6 L MCV 91.4 90.5 MCH 30.5 30.8 MCHC 33.3 34.0 RDW 14.1 14.1 Plt Count 247 216 MPV 10.0 9.4 Immature Gran % (Auto) 0.2 Neut % (Auto) 74.8 H Lymph % (Auto) 18.9 L [place] % (Auto) 5.0 Eos % (Auto) 0.6 Baso % (Auto) 0.5 Lymph # (Auto) 1.6 [place] # (Auto) 0.4 Eos # (Auto) 0.1 Baso # (Auto) 0.0 Abs Immat Gran (auto) 0.02 Absolute Neuts (auto) 6.3 Absolute Nucleated RBC 0.000 0.000 Nucleated RBC % (auto) 0.0 0.0 PT 12.4 INR 1.1 APTT 32.1 Sodium 137 Potassium 5.7 H D 5.3 H Chloride 102 Carbon Dioxide 26 Anion Gap 15 BUN 58 H Creatinine 5.63 H* Estim Creat Clear Calc 9.9 Estimated GFR 8 Random Glucose 95 Lactic Acid 0.7 Calcium 9.7 Total Bilirubin 0.4 AST 27 ALT 13 Alkaline Phosphatase 155 H Total Protein 6.6 Albumin 3.7 Lipase 53 08/10/24 08/10/24 08/11/24 05:46 20:20 05:50 WBC 5.3 5.0 4.3 L RBC 3.26 L 2.98 L 3.28 L Hgb 10.1 L 9.4 L 10.3 L Hct 29.6 L 26.9 L 30.1 L MCV 90.8 90.3 91.8 MCH 31.0 31.5 31.4 MCHC 34.1 34.9 34.2 RDW 14.4 14.2 14.1 Plt Count 197 183 186 MPV 10.7 9.8 9.8 Immature Gran % (Auto) 0.2 Neut % (Auto) 47.5 Lymph % (Auto) 38.4 [place] % (Auto) 8.5 Eos % (Auto) 4.6 H Baso % (Auto) 0.8 Lymph # (Auto) 1.9 [place] # (Auto) 0.4 Eos # (Auto) 0.2 Baso # (Auto) 0.0 Abs Immat Gran (auto) 0.01 Absolute Neuts (auto) 2.4 Absolute Nucleated RBC 0.000 0.000 0.000 Nucleated RBC % (auto) 0.0 0.0 0.0 PT INR APTT Sodium 136 136 Potassium 5.5 H 5.4 H Chloride 104 103 Carbon Dioxide 23 26 Anion Gap 15 12 BUN 57 H 53 H Creatinine 5.99 H* 6.10 H* Estim Creat Clear Calc 9.4 9.2 Estimated GFR 7 7 Random Glucose 72 75 Lactic Acid Calcium 8.7 D 9.1 Total Bilirubin AST ALT Alkaline Phosphatase Total Protein Albumin Lipase Airway Mallampati Class: I TM Dist: >3cm Neck ROM: Full Loose/Missing/Broken Teeth: Yes (loose tooth #9) Heart: S1S2 Lungs: CTAB Assessment and Plan Assessment Anesthesia Assessment: Anesthesia Plan Discussed and Chart Reviewed Final Anesthetic Review Family History of Problems with Anesthesia: No History of Problems with Anesthesia: No NPO: Yes ASA Class: III Final Preanesthetic Review: No Changes in Pt Med Stat, Meds/Allgs Chart Reviewed, Consent Obtained/Reviewed and Anes Risks/Benef Reviewed Patient Risk: Intermediate Procedure Risk: Low Anesthetic Plan Anesthetic Plan: MAC: and Agree w/ Assess. and Plan Disposition: Standard PACU
--- NOTE | 2024-08-11 14:29 | MHC.SHP ---
Pre-Procedural Eval Section A - 24 Hr Update-Section A only Date of Service: 08/11/24 The patient is an INPATIENT: Yes The patient has been examined within 24 hours of the surgical procedure. The History & Physical has been completed within 30 days and I have reviewed it.: Yes Section B - Complete if H&P > 30 days Chief Complaint: Melena, ?UGIB Allergies: Allergies Allergy/AdvReac Type Severity Reaction Status Date / Time ibuprofen Allergy Severe Unknown Verified 08/09/24 12:19 nifedipine Allergy Intermediate hives, leg Verified 08/09/24 12:19 edema Plan Diagnosis/Plan: Unchanged I have reviewed the history and physical and performed a pertinent physical examination on my patient. No changes have occurred unless specified. Time Spent With Patient Time: Total time managing care of this patient today ____ minutes.
--- NOTE | 2024-08-11 14:30 | P.OP_ITS ---
Operative Note Operative Note Date of Service: 08/11/24 Narrative: Procedure: Esophagogastroduodenoscopy Endoscopist: Teena Murrell MD Indication: Upper GI bleeding Anesthesia Provider: Kristopher Perez CRNA Anesthesia Type: MAC EGD Procedure:?? The procedure, indications, preparation and potential complications were reviewed with the patient, who indicated understanding and gave written informed consent to proceed. A physical exam was performed. The endoscope was introduced through the mouth, and advanced to the second part of duodenum. The mucosa was carefully examined on slow withdrawal of the endoscope. The patient tolerated the procedure well. There were no immediate complications.? ? EGD Findings:? * Esophagus:? Normal mucosa noted in the entire esophagus. The Z line was at 40 cm. * Stomach:? The GJ anastomosis was noted at 52 cm. Diffuse congestion, erythema and prominent vasculature in a reticulate pattern was noted throughout the gastric pouch. Spontaneous oozing was noted proximal to the GJ anastomosis from at least 3 different spots with no underlying ulceration. APC was applied for complete hemostasis. Cold forceps biopsies were taken to rule out GAVE. Retroflexion could easily be performed indicating dilation of the gastric pouch. * Jejunum:?Both the small bowel limbs appeared endoscopically normal, without any ulceration. Previously applied 3 endoclips noted. EGD Impressions:? * Normal esophagus * Gastritis * R/O GAVE (biopsy, APC) * gastric bypass anatomy * Normal small bowel ?? Recommendations:?? * Follow biopsy results. Our office will call or send a letter with results within 7-10 days. * Continue PPI therapy. Pt to OPEN the capsules and mix in applesauce/pudding * Carafate 10 ml TID x 2 weeks * She should follow up with her outpatient GI Above has been reviewed with the patient.
--- NOTE | 2024-08-11 15:04 | MHC.CM.PN ---
EMR REVIEWED AND PER MD ROUNDS, PT WILL HAVE AN EGD TODAY WITH POSSIBLE DC LATER IN DAY. CM WILL CONTINUE TO FOLLOW FOR THE PLAN.
[2024-08-11] MEDS: Mag&Al/Sim/Diphenhyd/Lidocaine 10 ML ORAL.SUSP PO (15:11)
[2024-08-11] MEDS: Sevelamer Carbonate Tablet 800 MG TABLET 1600 MG PO (17:02)
[2024-08-11] MEDS: Sucralfate Oral Suspension 1 GM/10 ML ORAL.SUSP PO (22:05)
[2024-08-12 03:16] VITALS: BP 108/61; PULSE 73; RESP 18; TEMP 36.4; O2SAT 97
[2024-08-12 05:15] VITALS: BP 113/69; PULSE 70; RESP 18; O2SAT 98
[2024-08-12 05:16] VITALS: RESP 18
[2024-08-12 07:29] VITALS: BP 146/65; PULSE 70; RESP 18; TEMP 36.4; O2SAT 100
--- NOTE | 2024-08-12 07:32 | P.DS_ITS ---
DS: Providers Provider Date of Service: 08/12/24 Date of admission: 08/09/24 14:21 Date of discharge: 08/12/24 Primary care physician: Rozina Lang MD Consults: 08/09/24 15:23 Consult to Gastroenterology Routine Consulting Provider: Savannah Archer Reason for consultation: GI Bleed Consult to Nephrology Routine Consulting Provider: [facility] Reason for consultation: Missed dialysis Treatment DS: Diagnosis Discharge Diagnosis (1) End stage chronic kidney disease: Status: Acute (2) Acute GI bleeding: Status: Resolved DS: Summary Hospital Course Hospital Course: Chief Complaint: ?GI bleed, Anemia, ESRD 54? year old woman with hx of end-stage renal disease on hemodialysis (MWF), GERD, hemorrhoids, fibromyalgia, Chronic low back pain, diverticulosis, gastric sleeve surgery, s/p revision of gastric bypass at [facility] and essential hypertension who presented to the hospital for vomiting and? coffee-ground emesis.? Patient has been previously admitted for UGIB secondary to? bleeding from marginal ulcers. She required blood transfusions and EGD on 05/20/2024 which revealed anastomotic ulcers without bleeding and gastritis. Day before admission she reports that she vomited bile and phlegm yesterday at 12 noon a couple of times.? She reports that she felt better, ate a hamburger and some red wine for dinner, woke up around 1:00 am? with diarrhea and continued vomiting.? She reports that the vomitus was the color of coffee.? Patient also reported abdominal pain in her epigastric region. She denies any recent URI symptoms, no restaurant food, No unusual dietary changes, has been taking her medications as ordered. She reports going to her dialysis treatments regularly but did not feel well enough to go today. She denies any dysuria, denies any unusual vaginal symptoms, denies constipation.? On arrival to the emergency room hemoglobin was 12. On repeat? 11.3. HGB noted to be 14.6 on July 18. On exam, she reports no abdominal pain, no nausea, or vomiting.? Last episode of coffee-ground emesis was 1am this morning. Her K+ is 5.3, she received dose of Lokelma. She received morphine, zofran and protonix in ED. Also received bolus of LR.? She will be admitted for further management of GI bleeding.? Hospital course: This has been a recurrent presentation for this patient, she was admitted again for gib bleeding and acute blood loss anemia. She was treated with IV PPI. Hemoglobin dropped from 12 to 9.4 and now 10; the decrease could be related to hemodilution from IVF. She had another EGD on 08/11/[address] Murrell with the following finding and recommendation: EGD Impressions:? * Normal esophagus * Gastritis * R/O GAVE (biopsy, APC) * gastric bypass anatomy * Normal small bowel ?? Recommendations:?? * Follow biopsy results. Our office will call or send a letter with results within 7-10 days. * Continue PPI therapy. Pt to OPEN the capsules and mix in applesauce/pudding * Carafate 10 ml TID x 2 weeks * She should follow up with her outpatient GI At the time of discharge, she is hemodynamically stable and no sings of bleeding. Final diagnoses: Acute upper GI bleeding Acute blood loss anemia rulwee out GAVE (Gastric Antral Vascular Ectasia) . Time Attestation Discharge Coordination Time (in mins): 45 Quality: Safe Use of Opioids Does Pt have an Active Cancer Diagnosis on the Problem List?: No Quality: Stroke Does the patient have a stroke diagnosis?: No Physical Exam Vital Signs: Vital Signs: Selected Entries 08/12/24 05:15 Pulse Rate 70 Respiratory Rate 18 Blood Pressure 113/69 Pulse Oximetry 98 Oxygen Delivery Me thod Room Air DS: Data Data Completed and Pending Completed studies during hospitalization [Text1]: Procedures Control Bleeding in Gastrointestinal Tract, Via Natural or Artificial Opening Endoscopic (05/19/24) Excision of Stomach, Pylorus, Via Natural or Artificial Opening Endoscopic, Diagnostic (05/19/24) Inspection of Upper Intestinal Tract, Via Natural or Artificial Opening Endoscopic (04/24/24) Introduction of Mineral-based Topical Hemostatic Agent into Upper GI, Via Natural or Artificial Opening Endoscopic, [employer] 6 (11/19/23) Performance of Urinary Filtration, Intermittent, Less than 6 Hours Per Day (06/04/24) Transfusion of Nonautologous Red Blood Cells into Peripheral Vein, Percutaneous Approach (05/19/24) Labs on day of discharge: Laboratory Results - last 24 hr 08/10/24 08/11/24 20:20 05:50 WBC 5.0 4.3 L RBC 2.98 L 3.28 L Hgb 9.4 L 10.3 L Hct 26.9 L 30.1 L MCV 90.3 91.8 MCH 31.5 31.4 MCHC 34.9 34.2 RDW 14.2 14.1 Plt Count 183 186 MPV 9.8 9.8 Immature Gran % (Auto) 0.2 Neut % (Auto) 47.5 Lymph % (Auto) 38.4 [place] % (Auto) 8.5 Eos % (Auto) 4.6 H Baso % (Auto) 0.8 Lymph # (Auto) 1.9 [place] # (Auto) 0.4 Eos # (Auto) 0.2 Baso # (Auto) 0.0 Abs Immat Gran (auto) 0.01 Absolute Neuts (auto) 2.4 Absolute Nucleated RBC 0.000 0.000 Nucleated RBC % (auto) 0.0 0.0 Sodium 136 Potassium 5.4 H Chloride 103 Carbon Dioxide 26 Anion Gap 12 BUN 53 H Creatinine 6.10 H* Estim Creat Clear Calc 9.2 Estimated GFR 7 Random Glucose 75 Calcium 9.1 Discharge Plan Discharge Anticipated Discharge Date/Time: 08/12/24 07:20 Patient Disposition: Home, Self-Care Discharge Diagnosis: Recurrent upper gi bleeding, acute on chronic anemia Referrals: Rozina Nicole MD [Primary Care Provider, Internal Medicine] - 1 Week Discharge Medications: New sucralfate 100 mg/mL suspension 10 ml PO BID 14 Days Qty: 280 0RF Continued thiamine HCl (vitamin B1) 100 mg tablet 100 mg PO DAILY 90 Days Qty: 90 0RF vitamin A 2,400 mcg capsule 2,400 mcg PO DAILY 90 Days Qty: 90 1RF citalopram 20 mg tablet 20 mg PO DAILY 90 Days Qty: 90 1RF carvedilol 6.25 mg tablet 6.25 mg PO BID 90 Days Qty: 180 1RF gabapentin 400 mg capsule 400 mg PO BID 90 Days Qty: 180 1RF pyridoxine (vitamin B6) 50 mg tablet 50 mg PO DAILY 90 Days Qty: 90 1RF cyanocobalamin (vitamin B-12) 1,000 mcg Tablet 1,000 mcg PO DAILY acetaminophen [Mapap (acetaminophen)] 500 mg capsule 1,000 mg PO Q8H PRN (Reason: Pain) Clinisol SF 15 % 15 % parenteral solution 0.5 ea IV MOWEFR@0900 Rx Instructions: DIALYSIS MEDICATION Bariatric Multivitamins 45 mg iron- 800 mcg-120 mcg Capsule 1 cap PO DAILY fluticasone propionate 50 mcg/actuation spray,suspension 1 spray intranasal DAILY PRN (Reason: Allergy Symptoms) Rx Instructions: administer into each nostril ondansetron 4 mg tablet,disintegrating 4 mg PO Q8H PRN (Reason: nausea and vomiting) Qty: 10 0RF zinc acetate 50 mg (zinc) Capsule 100 mg PO DAILY omeprazole 40 mg capsule,delayed release(DR/EC) 40 mg PO BID@0630,1630 meclizine 12.5 mg Tablet 12.5 mg PO TID PRN (Reason: Nausea And Vomiting) ergocalciferol (vitamin D2) [Vitamin D2] 1,250 mcg (50,000 unit) capsule 1,250 mcg PO PLEITEZ@0900 sevelamer carbonate 800 mg tablet 1,600 mg PO TIDWM ferrous sulfate 325 mg (65 mg iron) tablet,delayed release (DR/EC) 325 mg PO DAILY midodrine 5 mg tablet 5 mg PO DAILY PRN (Reason: Hypotension) melatonin 10 mg capsule 20 mg PO BEDTIME Qty: 90 0RF clindamycin phosphate 1 % lotion 1 appl topical BID Qty: 60 0RF Discontinued sucralfate 1 gram tablet 1 g PO BID Discharge Orders: Discharge Order (Routine); Ordered 08/12/24 Ordered By: Lul Pagan Diet: Advance to usual diet Activity on Discharge: As tolerated Stand Alone Forms: Patient Portal Discharge page Print Language: Luxembourgish Care Plan Goals: Maintain stable hemoglobin levels and prevent recurrence of gastrointestinal bleeding symptoms through continued PPI therapy and appropriate surgical follow- up. Health Concerns: recurrent gi bleeding, gastritis, h/o esophagitis Plan of Treatment: Continue taking the prescribed omeprazole (open capsule and mix with apple sauce)Ias previously directed. Monitor for any signs of GI bleeding (such as black stools, vomiting blood, or feeling dizzy/lightheaded), seek immediate medical attention with these signs and symptoms Take carafate as directed for 2 weeks Follow up with your bariatric surgeon at [facility] Follow up with dialysis as usual MWF follow up with dialysis as usual Assessment: See above
--- NOTE | 2024-08-12 07:50 | P.CDIM_ITS ---
PROVIDER RESPONSE TEXT: To clarify, the appropriate diagnosis supported by the clinical indicators: Gastritis: acute QUERY TEXT: PHYSICIAN'S DOCUMENTATION REQUEST Date of Query: 08/12/2024 07:26 AM EDT Patient Name: Meliza Olguin Admit Date: 08/09/2024 Dear Lul Pagan MD, A review of the medical record indicates additional documentation may be needed. Please review below and update the documentation accordingly. Clinical Indicators: GI 08/11/24 - EGD - Impression: Gastritis IV PPI D/S - Health concerns: Recurrent GI bleeding, Gastritis, h/o esophagitis Clarify which of the following accurately represents further specifics of the documented Gastritis: Possible options might include: Gastritis Acute, chronic, spastic, with bleeding, viral, etc. Other specified Other (explain) Clinically unable to determine (explain) Thank you, Kathleen Crain, CCS, CDIS Use of terms such as suspected, likely, concern for, or probable (associated with a specific diagnosis that is being evaluated, monitored, or treated as if it exists) are acceptable and can be coded in the inpatient setting, when documented at the time of discharge. Please use your independent medical judgment in providing your response. THIS QUERY IS PART OF THE PERMANENT MEDICAL RECORD
[2024-08-12] MEDS: Sevelamer Carbonate Tablet 800 MG TABLET 1600 MG PO (08:43)
[2024-08-12] MEDS: Ferrous Sulfate 324 MG TABLET.DR PO (08:43)
[2024-08-12] MEDS: Sucralfate Oral Suspension 1 GM/10 ML ORAL.SUSP PO (08:43)
[2024-08-12] MEDS: 0.9 % Sodium Chloride Flush 3 ML SYRINGE IVFLUSH (08:44)
--- NOTE | 2024-08-12 08:44 | MHC.CM.PN ---
dDP: PT HAS BEEN MEDICALLY CLEARED FOR DC HOME, NO SERVICES. PT'S SISTER WILL TRANSPORT
--- NOTE | 2024-08-12 08:49 | HO.POSTANES ---
Post Anesthesia Evaluation Post Anesthesia Evaluation Date of Service: 08/12/24 Vital Signs: Vital Signs Temp Pulse Resp BP Pulse Ox O2 Del Method 08/12/24 07:29 97.6 F 70 18 146/65 H 100 Room Air 08/12/24 05:16 18 08/12/24 05:15 70 18 113/69 98 Room Air 08/12/24 03:16 97.5 F 73 18 108/61 97 Room Air 08/11/24 22:06 18 08/11/24 22:03 73 18 119/60 97 Room Air Anesthesia: Monitored (mac anesthesia) Mental Status: Awake Pain Control: Satisfactory Nausea/Vomiting: None Hydration: Adequate Anesthesia-Related Issues: No Anes. Related Issues
== END 2024-08-12 09:59 | disposition home or self-care (01) | DRG 377 ==
LOC: HO.ED 12:54 → HO.EDOVER 14:43 → HO.S3 15:06
PROVIDERS: Internal Medicine; Nurse Practitioner Family; Admitting Provider Student in an Organized Health Care Education/Training Program; Emergency Provider Emergency Medicine; PCP Internal Medicine; Visit Provider Internal Medicine
PROC: 0DJ08ZZ Inspection of Upper Intestinal Tract, Via Natural or Artificial Opening Endoscopic (ICD-10-PCS; CPT 43235; principal; 2024-08-11 14:30)
DX: K29.01 Acute gastritis with bleeding (principal); N18.6 End stage renal disease; I12.0 Hypertensive chronic kidney disease with stage 5 chronic kidney disease or end stage renal disease; D62 Acute posthemorrhagic anemia; M54.59 Other low back pain; G89.29 Other chronic pain; K31.811 Angiodysplasia of stomach and duodenum with bleeding; Z99.2 Dependence on renal dialysis; E87.5 Hyperkalemia; E78.5 Hyperlipidemia, unspecified; F39 Unspecified mood [affective] disorder; Z98.84 Bariatric surgery status; Z91.158 Patient's noncompliance with renal dialysis for other reason; Z79.899 Other long term (current) drug therapy
CPT/HCPCS: 36415; 80048; 80053; 83605; 83690; 84132; 85014; 85018; 85025; 85027; 85610; 85730; 88305; 88342; 90999; 93005; 99285; J2270; J2405; J2470; J2704; J7120

== ENCOUNTER → 2024-08-09 12:43 | Outpatient (BNV) | payer MEDICARE, MEDICAID, SELFPAY | PROVIDERS: Admitting Provider Student in an Organized Health Care Education/Training Program; Emergency Provider Emergency Medicine; PCP Internal Medicine; Visit Provider Internal Medicine Cardiovascular Disease | DX: Z13.6 Encounter for screening for cardiovascular disorders (principal) | CPT/HCPCS: 93010 ==

== ENCOUNTER → 2024-08-09 14:21 | Outpatient (BNV) | payer MEDICARE, MEDICAID, SELFPAY | PROVIDERS: Admitting Provider Student in an Organized Health Care Education/Training Program; Emergency Provider Emergency Medicine; PCP Internal Medicine; Visit Provider Internal Medicine | DX: K29.71 Gastritis, unspecified, with bleeding (principal); Z98.84 Bariatric surgery status | CPT/HCPCS: 43255 ==

== ENCOUNTER → 2024-08-09 14:21 | Outpatient (BNV) | payer MEDICARE, MEDICAID, SELFPAY | PROVIDERS: Admitting Provider Student in an Organized Health Care Education/Training Program; Emergency Provider Emergency Medicine; PCP Internal Medicine; Visit Provider Internal Medicine | DX: N18.6 End stage renal disease (principal); Z99.2 Dependence on renal dialysis; K92.2 Gastrointestinal hemorrhage, unspecified | CPT/HCPCS: 99223; 99239; 99499 ==

== ENCOUNTER 2024-08-17 10:52 | Emergency (ER) | payer MEDICARE, MEDICAID, SELFPAY ==
--- NOTE | 2024-08-17 | ECG_ITS ---
Test Reason : burning cp Blood Pressure : */* mmHG Vent. Rate : 78 BPM Atrial Rate : 78 BPM P-R Int : 114 ms QRS Dur : 76 ms QT Int : 408 ms P-R-T Axes : 62 73 57 degrees QTcB Int : 465 ms Normal sinus rhythm Normal ECG When compared with ECG of 09-Aug-2024 12:44, Nonspecific T wave abnormality now evident in Anterior leads Referred By: Generic ED Physician Electronically Signed By: Julio Ramirez
[2024-08-17 11:05] VITALS: BP 194/106; BP 216/113; PULSE 78; PULSE 79; RESP 16; TEMP 36.7; O2SAT 98; O2SAT 99; BMI 22.2
--- NOTE | 2024-08-17 11:11 | ED_ITS ---
HPI - General Adult General Chief complaint: General Medical Stated complaint: BURNING IN CHEST,ABD PAIN,N/V BLOOD PER EMS Time Seen by Provider: 08/17/24 11:05 History of Present Illness ED Provider: Faraz Warner MD HPI narrative: 54-year-old female with recurrent PUD/upper GI bleeding. I personally saw this patient on the 09 of August she had reported mild GI bleeding but was stable with stable hemoglobin at that time. Patient now reports nausea vomiting epigastric burning for 2 days. Dark red bright red blood in vomit and stool. Approximately 6 days ago while admitted here the patient had EGD performed which per the documentation report shows ?diffuse gastric erythema congestion, oozing at the GJ anastomosis from 3 different spots hemostasis achieved. Normal esophagus. Patient was supposed to continue Carafate t.i.d. for 2 weeks, PPI Related Data Home Medications ?Medication ?Instructions ?Recorded ?Confirmed ferrous sulfate 325 mg (65 mg 325 mg PO DAILY 05/11/20 08/09/24 iron) tablet,delayed release cyanocobalamin (vitamin B-12) 1,000 mcg PO DAILY 10/1708/09/24 1,000 mcg tablet midodrine 5 mg tablet 5 mg PO DAILY PRN Hypotensio n 03/25/23 08/09/24 acetaminophen 500 mg capsule 1,000 mg PO Q8H PRN Pain 08/10/23 08/09/24 (Mapap (acetaminophen)) fluticasone propionate 50 1 spray intranasal DAILY PRN 08/10/23 08/09/24 mcg/actuation nasal Allergy Symptoms spray,suspension [id number] 45 mg-folic 1 cap PO DAILY 07/1308/09/24 acid 800 mcg-vit K 120 mcg capsule (Bariatric Multivitamins) parenteral amino acid 15% no.5 15 0.5 ea IV MOWEFR@090 0 08/10/23 08/09/24 % combination no.5 intravenous solution (Clinisol SF) zinc acetate 50 mg (zinc) capsule 100 mg PO DAILY 11/0408/09/24 ergocalciferol (vitamin D2) 1,250 1,250 mcg PO PLEITEZ@0900 06/04/24 08/09/24 mcg (50,000 unit) capsule (Vitamin D2) meclizine 12.5 mg tablet 12.5 mg PO TID PRN Nausea An d 06/04/24 08/09/24 Vomiting omeprazole 40 mg capsule,delayed 40 mg PO BID@0630,163 0 06/04/24 08/09/24 release sevelamer carbonate 800 mg tablet 1,600 mg PO TIDWM 08/09/24 Previous Rx's ?Medication ?Instructions ?Recorded thiamine HCl (vitamin B1) 100 mg 100 mg PO DAILY 90 da ys #90 tabs 09/27/23 tablet vitamin A 2,400 mcg capsule 2,400 mcg PO DAILY 90 days #90 caps 02/05/24 citalopram 20 mg tablet 20 mg PO DAILY 90 days #90 t abs 03/18/24 carvedilol 6.25 mg tablet 6.25 mg PO BID 90 days #180 tabs 04/28/24 gabapentin 400 mg capsule 400 mg PO BID 90 days #180 c aps 04/28/24 pyridoxine (vitamin B6) 50 mg 50 mg PO DAILY 90 days # 90 tabs 04/28/24 tablet ondansetron 4 mg disintegrating 4 mg PO Q8H PRN nausea and 05/11/24 tablet vomiting #10 tabs melatonin 10 mg capsule 20 mg (2 x 10 mg) PO BEDTIME #90 06/11/24 caps clindamycin phosphate 1 % lotion 1 appl topical BID #6 0 mL 06/24/24 ondansetron 4 mg disintegrating 4 mg PO Q8H PRN nausea and 08/12/24 tablet vomiting #30 tabs sucralfate 100 mg/mL oral 10 ml PO BID 14 days #280 mL 08/12/24 suspension Allergies Allergy/AdvReac Type Severity Reaction Status Date / Time ibuprofen Allergy Severe Unknown Verified 08/17/24 11:07 nifedipine Allergy Intermediate hives, leg Verified 08/17/24 11:07 edema PMFSH Past Medical History Medical History (Updated 08/18/24 @ 00:01 by Yo Sanchez) End stage chronic kidney disease Marginal ulcer ESRD (end stage renal disease) ESRD on dialysis Smoker Moderate major depression Physical exam Spondylosis without myelopathy or radiculopathy, lumbar region Spinal stenosis 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 Lumbar back pain with radiculopathy affecting left lower extremity Physical exam (~02/14/21) Peritoneal dialysis catheter in place Polyarthralgia Dyslipidemia Family history of ovarian cancer Abnormal mammogram of right breast Angina pectoris syndrome Chest pain Constipation Nephrosclerosis Renal interstitial fibrosis Obesity (BMI 30-39.9) Back pain GERD (gastroesophageal reflux disease) History of headache HTN (hypertension) Surgical History History of sleeve gastrectomy S/P arteriovenous (AV) graft placement Fistula Hx of colonoscopy Hx of hysterectomy Hx of tubal ligation History of endometrial ablation Family History Family History Father Asthma Mother Asthma Hypertension Ovarian cancer Maternal Grandfather Myocardial infarction Paternal Grandmother Stroke Social History Social History Household Members: Children Household Members Other:: 30 year old special needs son Housing: Apartment Are you a primary home health care social worker to a significant other at home: No Do you presently have visiting nurse or other home services: Yes Alcohol intake: never Comment: low fall risk Patient Tobacco Use Status: Never used Tobacco Tobacco use type: Cigarette Cigarette Packs Per Day: 1 Cigarettes Per Day: 1 Years Smoked: 10+ Smoked in Last 30 Days: No e-Cigarette/Vaping Use: Never Used Second Hand Smoke Exposure: No Use of substances other than those prescribed or required for medical reasons: No Substance Use Type: Caffiene Advance Directives: Yes Advance Directives on File: Yes Advance Directives Date on File: 04/27/20 Do you have a plan to hurt others: No Plan Patient : No service: No Current occupational status: employed Cognitive needs: No Hearing needs: No Vision needs: Yes (reading glasses) Physical Exam ED Vital Signs: Vital Signs - 24 hr 08/17/24 11:05 Temperature 98.0 F Pulse Rate 78 Respiratory Rate 16 Blood Pressure 194/106 H Pulse Oximetry 99 Oxygen Delivery Method Room Air BMI result Body Mass Index 22.2 EXAM: Gen: Alert, awake, initial exam the patient is very uncomfortable appearing vomiting clear emesis Head: Atraumatic Eyes: Anicteric, Normal conjunctiva. ENT: Moist mucosa, no pallor. ? Neck: Supple. Skin: ?No observable rash or bruising on exposed or examined skin Respiratory: Breathing comfortably, No distress.Clear to auscultation bilaterally, symmetric chest expansion, No wheeze, rales, ronchi. Cardiovascular: Regular rate and rhythm. No murmurs or rub. Well perfused periphery, warm extremities. No edema. ? Abdominal: Moderate epigastric tenderness Soft, no objective distension. No palpable masses or obvious organomegaly. ?No guarding, no rebound tenderness or other peritoneal findings. : No flank tenderness. Neuro: Alert. Gross movement of all extremities intact. ? Psych: Calm. Cooperative. MSK: No grossly visible deformity. Vital signs: See flowsheet Medications Administered Discontinued Medications Generic Name Dose Route Start Last Admin Trade Name Freq PRN Reason Stop Dose Admin Sodium Chloride 1,000 mls @ 999 mls/hr 08/17/24 11:30 08/17/24 13:33 Ns IV 08/17/24 12:30 Infused .Q1H1M GERARDO Infusion Midazolam HCl 0.5 mg 08/17/24 13:14 08/17/24 13:24 Midazolam Hcl 2 Mg/2 Ml Vial IVPUSH 08/17/24 13:15 0.5 mg ONCE ONE Administration Morphine Sulfate 4 mg 08/17/24 11:30 08/17/24 11:48 Morphine Sulfate 4 Mg/Ml Cartridge IVPUSH 08/17/24 11:31 4 mg ONCE ONE Administration Protocol Ondansetron HCl 4 mg 08/17/24 11:30 08/17/24 11:48 Ondansetron Hcl 4 Mg/2 Ml Vial IVPUSH 08/17/24 11:31 4 mg ONCE ONE Administration Pantoprazole Sodium 80 mg 08/17/24 13:15 08/17/24 13:23 Pantoprazole Sodium 40 Mg/10 Ml Vial IVPUSH 08/17/24 13:16 80 mg ONCE ONE Administration Prochlorperazine Edisylate 5 mg 08/17/24 13:14 08/17/24 13:34 Prochlorperazine Edisylate 10 Mg/2 Ml Vial IV 08/17/24 13:15 5 mg ONCE ONE Administration Medical Decision Making Medical Decision Making MDM Narrative: Medical Decision Makin-year-old female with a history of upper GI bleed. Now with severe epigastric pain moderate tenderness nausea vomiting describe blood in the vomit but here clear vomitus. Severe hypertension on arrival 194/106 could be secondary to pain or hypertensive emergency/urgency. No headache no focal neuro complaints. Initial hemoglobin stable. Repeat without significant drop despite hydration. Antiemetics analgesia with significant improvement monitored hours in the ED with improvement eventually resolution of vomiting. Preliminary Favored Differential Diagnosis: PUD versus Tania-Dixon, LG IV, anemia, dehydration, acute on chronic abdominal pain, gastritis among additional considered etiologies Testing Interpreted Independently: ECG sinus rhythm rate 78 QTC 465 no acute ischemic changes. NJ 114, QRS 76. Radiology or Lab testing Results Reviewed: Lab review with stable creatinine ESRD no electrolyte derangement. Lipase not elevated. Repeat hemoglobin thought significant change Consults: Not Applicable Independent Historians/External Chart Reviews: Not Applicable Social Determinants of Health Impacting MDM/Planning: Not Applicable Lab Data 08/17/24 13:50 08/17/24 11:59 Labs: Lab Results 08/17/24 08/17/24 Range/Units 11:59 13:50 WBC 10.3 11.6 H (4.8-10.8) X10*3/uL RBC 3.46 L 3.55 L (4.20-5.50) X10*6/uL Hgb 10.7 L 10.8 L (12.0-16.0) g/dl Hct 31.6 L 32.4 L (37.0-47.0) % MCV 91.3 91.3 (80.0-98.0) fL MCH 30.9 30.4 (27.0-33.0) pg MCHC 33.9 33.3 (31.0-35.0) g/dl RDW 14.6 14.5 (11.0-16.0) % Plt Count 278 D 265 (160-400) X10*3/uL MPV 9.2 L 9.4 (9.4-12.3) fL Immature Gran % (Auto) 0.4 0.5 H (0.0-0.4) % Neut % (Auto) 89.8 H 89.8 H (45-73) % Lymph % (Auto) 6.5 L 6.7 L (20-40) % [place] % (Auto) 2.6 2.6 (2-11) % Eos % (Auto) 0.3 0.1 (0-4) % Baso % (Auto) 0.4 0.3 (0-2) % Lymph # (Auto) 0.7 L 0.8 L (1.2-4.9) X10*3/uL [place] # (Auto) 0.3 0.3 (0.1-1.2) X10*3/uL Eos # (Auto) 0.0 0.0 (0.0-0.4) X10*3/uL Baso # (Auto) 0.0 0.0 (0.0-0.2) X10*3/uL Abs Immat Gran (auto) 0.04 H 0.06 H (0.00-0.03) X10*3/uL Absolute Neuts (auto) 9.2 H 10.4 H (2.0-8.3) x10*3/uL Absolute Nucleated RBC 0.000 0.000 (0.0-0.012) X10*3/uL Nucleated RBC % (auto) 0.0 0.0 (0.0-0.2) /100WBC PT 11.4 (10.9-12.4) SEC INR 1.0 (0.9-1.1) APTT 30.1 (26.0-36.8) SEC Sodium 139 (135-145) mmol/L Potassium 4.4 (3.3-5.1) mmol/L Chloride 105 (96-108) mmol/L Carbon Dioxide 25 (22-29) mmol/L Anion Gap 13 (12-20) BUN 27 H (9-16) mg/dL Creatinine 4.59 H* (0.5-1.4) mg/dL Estim Creat Clear Calc 12.8 Estimated GFR 10 Random Glucose 154 H (60-115) mg/dL Calcium 9.3 (8.4-10.2) mg/dL Total Bilirubin 0.4 (0.0-1.0) mg/dL AST 17 (5-31) U/L ALT 8 (0-31) U/L Alkaline Phosphatase 173 H (39-117) U/L Total Protein 6.3 L (6.5-8.0) g/dL Albumin 3.7 (3.5-5.0) g/dL Lipase 42 (8-78) U/L Discharge Plan Discharge Clinical Impression: Abdominal pain Patient Disposition: Home, Self-Care Instructions: Abdominal Pain (ED) Additional Instructions: _ DISCHARGE DIAGNOSES: Abdominal pain and vomiting HISTORY OF PRESENTATION: ?Abdominal pain vomiting blood streaks in the stool and vomit EMERGENCY DEPARTMENT COURSE,TESTS, TREATMENTS: While in the ED today you had significant pain initially and were given morphine IV fluids and nausea medicines. You were observed had repeat doses of nausea medicine with improvement you were eventually able to tolerate liquids by mouth. You had a repeat blood count which showed no active or rapid hemorrhaging or bleeding. DISCHARGE MEDICATIONS: ?[We have made no changes to your regular medication regimen] FOLLOW-UP: ?Call your primary or general physician soon as possible to discuss your symptoms, your ED visit and to discuss follow up plans Call your GI doctor 1st thing tomorrow morning to discuss your recurrent symptoms INSTRUCTIONS ?& RETURN PRECAUTIONS: If any symptoms change first call your primary physician, if it is after-hours your primary doctors office should have a provider electronic intelligence officer you can speak with. If the symptoms are severe or very concerning to you then call 911 or return to the ED. Return back to the emergency department if you have persistent dark or bloody stools, bloody vomit or severe return of your abdominal pain Faraz Warner MD Emergency Physician [facility] Prescriptions: No Action thiamine HCl (vitamin B1) 100 mg tablet 100 mg PO DAILY 90 Days Qty: 90 0RF vitamin A 2,400 mcg capsule 2,400 mcg PO DAILY 90 Days Qty: 90 1RF citalopram 20 mg tablet 20 mg PO DAILY 90 Days Qty: 90 1RF carvedilol 6.25 mg tablet 6.25 mg PO BID 90 Days Qty: 180 1RF gabapentin 400 mg capsule 400 mg PO BID 90 Days Qty: 180 1RF pyridoxine (vitamin B6) 50 mg tablet 50 mg PO DAILY 90 Days Qty: 90 1RF cyanocobalamin (vitamin B-12) 1,000 mcg Tablet 1,000 mcg PO DAILY acetaminophen [Mapap (acetaminophen)] 500 mg capsule 1,000 mg PO Q8H PRN (Reason: Pain) Clinisol SF 15 % 15 % parenteral solution 0.5 ea IV MOWEFR@0900 Rx Instructions: DIALYSIS MEDICATION Bariatric Multivitamins 45 mg iron- 800 mcg-120 mcg Capsule 1 cap PO DAILY fluticasone propionate 50 mcg/actuation spray,suspension 1 spray intranasal DAILY PRN (Reason: Allergy Symptoms) Rx Instructions: administer into each nostril ondansetron 4 mg tablet,disintegrating 4 mg PO Q8H PRN (Reason: nausea and vomiting) Qty: 10 0RF zinc acetate 50 mg (zinc) Capsule 100 mg PO DAILY omeprazole 40 mg capsule,delayed release(DR/EC) 40 mg PO BID@0630,1630 meclizine 12.5 mg Tablet 12.5 mg PO TID PRN (Reason: Nausea And Vomiting) ergocalciferol (vitamin D2) [Vitamin D2] 1,250 mcg (50,000 unit) capsule 1,250 mcg PO PLEITEZ@0900 sevelamer carbonate 800 mg tablet 1,600 mg PO TIDWM sucralfate 100 mg/mL suspension 10 ml PO BID 14 Days Qty: 280 0RF ondansetron 4 mg tablet,disintegrating 4 mg PO Q8H PRN (Reason: nausea and vomiting) Qty: 30 0RF ferrous sulfate 325 mg (65 mg iron) tablet,delayed release (DR/EC) 325 mg PO DAILY midodrine 5 mg tablet 5 mg PO DAILY PRN (Reason: Hypotension) melatonin 10 mg capsule 20 mg PO BEDTIME Qty: 90 0RF clindamycin phosphate 1 % lotion 1 appl topical BID Qty: 60 0RF Interventions: ED Discharge Assessment Last Done: 08/17/24 18:36 Discharge Date/Time: 08/17/24 18:37 Print Language: Georgian
[2024-08-17 11:48] VITALS: RESP 25
[2024-08-17 12:03] LABS: MANUAL DIFF FLAG NO
[2024-08-17 12:04] LABS: Hematocrit 31.6 % (37.0-47.0); Hemoglobin 10.7 g/dl (12.0-16.0); Imm Gran Abs Auto 0.04 X10*3/uL (0.00-0.03); Imm Gran Pct Auto 0.4 % (0.0-0.4); Lymphocytes Absolute Auto 0.7 X10*3/uL (1.2-4.9); Mean Corpuscular HGB Conc 33.9 g/dl (31.0-35.0); Mean Corpuscular Hemoglobin 30.9 pg (27.0-33.0); Mean Corpuscular Volume 91.3 fL (80.0-98.0); NRBC Abs Auto 0.000 X10*3/uL (0.0-0.012); NRBC Pct Auto 0.0 /100WBC (0.0-0.2); Platelet Count 278 X10*3/uL (160-400); Red Blood Count 3.46 X10*6/uL (4.20-5.50); White Blood Count 10.3 X10*3/uL (4.8-10.8)
[2024-08-17 12:10] LABS: INTERNATIONAL NORM RATIO 1.0 (0.9-1.1); Prothrombin Time 11.4 SEC (10.9-12.4)
[2024-08-17 12:13] LABS: Partial Thromboplastin Time 30.1 SEC (26.0-36.8)
--- OUTSIDE RECORDS SUMMARY | 2024-08-17 12:25 | XMS_ITS | Clinical Summary ---
Author Organization 175 [facility] Address [address] [place] [address] Phone Care Team Providers Care Picker/Puller Name Role Phone Sam Lynch MD Primary Care Provider [phone] Allergies Active Allergy Reactions Criticality Noted Date [...] 32.9 in adult 11/26/2023 Acute kidney failure ([facility] V24) 04/26/2021 Benign essential hypertension 04/26/2021 Dependence on renal dialysis ([facility] V24) 04/26 Disorder of kidney and ureter, unspecified 04/26 ESRD on hemodialysis ([facility] V24, [facility] V28) 04/26/2021 Hypertensive heart and chron ic kidney disease with heart failure and stage 1 through stage 4 chronic kidney disease, or unspecified chronic kidney disease ([facility] V24, [facility] V28) 04/26/2021 Vitamin D deficiency 04/26/2021 Resolved Problems Problem Noted Date Diagnosed Date Resolved Date Upper GI bleed 06/30/2024 07/03/2024 Encounters Date Type Department Care Team Description 07/15/2024 2:00 PM EDT Office Visit Bariatric Surgery - [place] 175 [facility] [address] [place] [address] Gerson Rosen MD Marginal ulcers (Primary Dx) 07/07/2024 Telephone Gastroenterology - 299 [facility] 299 [facility] [address] [place] [phone] Michelle Cowan MA Results 07/02/2024 7:25 AM EDT Anesthesia Event [facility] Endoscopy [address] [place] [address] Dayna Clements MD Claudio, Raymund, CRNA 06/30/2024 8:21 AM EDT - 07/03/2024 6:47 PM EDT Hospital Encounter [facility] Surgical Unit [address] [place] [address] Claude Lucia MD Bukalo, Nermina, MD Zipagan, James T, MD Upper GI bleed (Primary Dx) Discharge Disposition: Home or Self Care 06/14/2024 Telephone Bariatric Surgery - [place] 175 [facility] [address] [place] [address] Gerson Rosen MD from Last 3 Months Surgical History Surgery Date Site/Laterality Comments OTHER SURGICAL HISTORY PROCEDURE: DIALYSIS ACCESS SYSTEM LAPAROSCOPIC GASTRIC BANDING PROCEDURE: LAP ADJUSTABLE GASTRIC BAND HYSTERECTOMY PROCEDURE: HISTORICAL HYSTERECTOMY OTHER SURGICAL HISTORY PROCEDURE: COLONOSCOPY LESION REMOVAL OTHER SURGICAL HISTORY 06/13/2021 Left PROCEDURE: WY CRTJ ARVEN FSTL XCP DIR ARVEN ANAST [...] 3:15 PM EDT Office Visit Bariatric Surgery [facility] [address] [phone] Grace Abarca PA [address] [address] 11/18/2024 1:15 PM EDT Office Visit Bariatric Surgery [facility] [address] [phone] Gerson Rosen MD [address] [address] Health Maintenance Due Date Last Done Comments [...] Vaccine ( season) 2023 01/19/2021, 07/05/2020, 05/31/2020 Influenza Vaccine (#1) 2024 , 11/11/2022, 11/14/2021, Additional history exists Hypertension/CHF/CAD Annual BMP Blood Test 07/02/2025 07/02/2024, 07/01/2024, 06/30/2024 Pneumococcal Vaccine: 50+ Years (3 of 3 - PCV20 or PCV21) 03/27/2026 03/27/2021, 10/31/2016 Cholesterol Screening (Lipid Panel) 05/14/2029 05/14/2024, 02/20/2024 Hepatitis C Screening Completed 11/02/2020 HIB Vaccines Aged Out No longer eligi [...] by: Rolf Alanis MD on 07/02/2024 19:20:07 us Sergo Wallis MD IMG US PROCEDURES Final Resul t * Lavender tube (07/02/2024 10:20 AM EDT) Pathologist [facility] Extra Tube Hold for add-ons. 07/02/2024 12:01 PM EDT [facility] Comment:Auto resulted. Blood Venous blood specimen / Unknown Venipuncture / Unknown 07/02/2024 10:20 AM EDT 07/02/2024 10:24 AM EDT us Sergo Wallis MD LAB BLOOD ORDERABLES Final Re sult [facility] [address] [place] [address], [place] [phone] * (ABNORMAL) Basic metabolic panel (07/02/2024 10:20 AM EDT) Only the most recent of2 resultswithin the time period is included. Pathologist [facility] Sodium 130(L) 133 - 145 mmol/L LAB CHEMISTRY METHOD 07/02/2024 11:07 AM EDT [facility] Potassium 4.7 3.5 - 5.5 mmol/L LAB CHEMISTRY METHOD 07/02/2024 11:07 AM [facility] Chloride 94(L) 96 - 110 mmol/L LAB CHEMISTRY METHOD 07/02/2024 11:07 AM [facility] CO2 29 21 - 32 mmol/L LAB CHEMISTRY METHOD 07/02/2024 11:07 AM [facility] Anion Gap 7 3 - 11 LAB CHEMISTRY METHOD 07/02/2024 11:07 AM [facility] Glucose 231(H) 70 - 100 mg/dL LAB CHEMISTRY METHOD 07/02/2024 11:07 AM [facility] BUN 16 5 - 25 mg/dL LAB CHEMISTRY METHOD 07/02/2024 11:07 AM [facility] Creatinine 5.36(H) 0.50 - 1.10 mg/dL LAB CHEMISTRY METHOD 07/02/2024 11:07 AM [facility] eGFR 9(L) >=60 mL/min/1. 73m2 LAB CHEMISTRY METHOD 07/02/2024 11:07 AM [facility] Comment:Calculation based on the Chronic Kidney Disease Epidemiology Collaboration (CKD-EPI) equation refit without adjustment for race. BUN/Creatinine Ratio 3.0 LAB CHEMISTRY METHOD 07/02/2024 11:07 AM [facility] Calcium 9.6 8.5 - 10.5 mg/dL LAB CHEMISTRY METHOD 07/02/2024 11:07 AM [facility] Blood Venous blood specimen / Unknown Venipuncture / Unknown 07/02/2024 10:20 AM EDT 07/02/2024 10:23 AM EDT us Myrna PARKER LAB BLOOD ORDERABLES Final R esult [facility] [address] [place] [address], * (ABNORMAL) CBC auto differential (07/02/2024 8:43 AM EDT) Only the most recent of2 resultswithin the time period is included. WBC 5.4 4.8 - 10.8 K/mcL LAB HEMETOLOGY METHOD 07/02/2024 9:12 AM [facility] RBC 4.10 3.80 - 4.80 M/mcL LAB HEMETOLOGY METHOD 07/02/2024 9:12 AM [facility] Hemoglobin 12.6 11.5 - 16.0 g/dL LAB HEMETOLOGY METHOD 07/02/2024 9:12 AM [facility] Hematocrit 39.5 35.0 - 47.0 % LAB HEMETOLOGY METHOD 07/02/2024 9:12 AM [facility] MCV 96.6 79.0 - 98.0 FL LAB HEMETOLOGY METHOD 07/02/2024 9:12 AM [facility] MCH 30.8 27.0 - 32.0 pcg LAB HEMETOLOGY METHOD 07/02/2024 9:12 AM [facility] MCHC 31.9(L) 32.0 - 37.0 g/dL LAB HEMETOLOGY METHOD 07/02/2024 9:12 AM [facility] RDW 13.2 11.0 - 15.0 % LAB HEMETOLOGY METHOD 07/02/2024 9:12 AM [facility] Platelets 208 130 - 400 K/mcL LAB HEMETOLOGY METHOD 07/02/2024 9:12 AM [facility] MPV 10.4 7.0 - 11.0 FL LAB HEMETOLOGY METHOD 07/02/2024 9:12 AM [facility] NRBC 0.0 <1.0 % LAB HEMETOLOGY METHOD 07/02/2024 9:12 AM [facility] NRBC Absolute 0.00 <0.10 K/mcL LAB HEMETOLOGY METHOD 07/02/2024 9:12 AM [facility] Neutrophils Relative 60.0 % LAB HEMETOLOGY METHOD 07/02/2024 9:12 AM [facility] Lymphocytes Relative 26.7 % LAB HEMETOLOGY METHOD 07/02/2024 9:12 AM [facility] Monocytes Relative 7.9 % LAB HEMETOLOGY METHOD 07/02/2024 9:12 AM [facility] Eosinophils Relative 4.1 % LAB HEMETOLOGY METHOD 07/02/2024 9:12 AM [facility] Basophils Relative 0.9 % LAB HEMETOLOGY METHOD 07/02/2024 9:12 AM [facility] Immature Granulocytes Relative 0.4 % LAB HEMETOLOGY METHOD 07/02/2024 9:12 AM [facility] Neutrophils Absolute 3.21 1.50 - 7.00 K/mcL LAB HEMETOLOGY METHOD 07/02/2024 9:12 AM [facility] Lymphocytes Absolute 1.43 1.00 - 5.00 K/mcL LAB HEMETOLOGY METHOD 07/02/2024 9:12 AM [facility] Monocytes Absolute 0.42 0.20 - 1.00 K/mcL LAB HEMETOLOGY METHOD 07/02/2024 9:12 AM [facility] Eosinophils Absolute 0.22 0.00 - 0.50 K/mcL LAB HEMETOLOGY METHOD 07/02/2024 9:12 AM [facility] Basophils Absolute 0.05 0.00 - 0.20 K/mcL LAB HEMETOLOGY METHOD 07/02/2024 9:12 AM [facility] Immature Granulocytes Absolute 0.02 0.00 - 0.03 K/mcL LAB HEMETOLOGY METHOD 07/02/2024 9:12 AM EDT [facility] Blood Venous blood specimen / Unknown Venipuncture / Unknown 07/02/2024 8:43 AM EDT 07/02/2024 8:48 AM EDT Myrna PARKER LAB BLOOD ORDERABLES Final R esult [facility] [address] [place] [address], [place] [phone] * EGD Anesthesia - MAC; [facility] ENDOSCOPY (07/02/2024 7:46 AM EDT) Anatomical Region Laterality Modality Other 07/02/2024 7:31 AM EDT Impressions 07/02/2024 7:54 AM EDT - Gastric bypass with a normal-sized pouch and intact staple line. Gastrojejunal anastomosis characterized by erosion. - Gastritis. Biopsied. Recommendation: - Resume previous diet. - Continue present medications. - Await pathology results. Narrative 07/02/2024 7:54 AM EDT [facility] GI Patient Name: Meliza Perry Procedure Date: [...] characterized by erosion. This was traversed. The rsbtd-dt-fdrgbls limb was characterized by ulceration. The ngvdsrvd-sm-zsycryy limb was not examined as it could [...] multiple biopsies. Procedure Code(s): --- Professional --- 18144, Esophagogastroduodenoscopy, flexible, transoral; with biopsy, single or multiple Diagnosis Code(s): --- Professional --- K29.70, Gastritis, unspecified, without bleeding K28.9, Gastrojejunal ulcer, unspecified as acute or chronic, without hemorrhage or perforation CPT copyright 2021 [employer]. All rights reserved. The codes documented in this report are preliminary and upon pediatric dentist review may be revised to meet current compliance requirements. MD Ari Collado MD 07/02/2024 7:54:37 AM This report has been signed electronically.Ari Davis MD Number of Addenda: 0 Note Initiated On: 07/02/2024 7:31 AM Scope In: Scope Out: Endoscopy Department at [facility] - [address] [place] [phone] Procedure Note Ari Davis MD - 07/02/2024 [facility] GI Patient Name: Meliza Perry Procedure Date: [...] characterized by erosion. This was traversed. The oiavy-vs-issbaty limb was characterized byulceration. The hhoitpfq-mo-deeljzb limb was not examined as it could [...] take multiplebiopsies. Procedure Code(s): --- Professional --- 80772, Esophagogastroduodenoscopy, flexible, transoral; with biopsy, single or multiple Diagnosis Code(s): --- Professional --- K29.70, Gastritis, unspecified, without bleeding K28.9, Gastrojejunal ulcer, unspecified as acute or chronic, without hemorrhage or perforation CPT copyright 2020 [employer]. All rights reserved. The codes documented in this report are preliminary and upon pediatric dentist reviewmay be revised to meet current compliance requirements. Ari MD Ari Casanova MD 07/02/2024 7:54:37 AM This report has been signed electronically.Ari Davis MD Number of Addenda: 0 Note Initiated On: 07/02/2024 7:31 AM Scope In: Scope Out: Endoscopy Department at [facility] - [address] [place] [phone] IMPRESSION: - Gastric bypass with a normal-sized [...] gastritis identified. 07/06/2024 12:39 PM EDT [facility] Gross Description A. Stomach, gastric [...] processing. dvb/DG 07/06/2024 12:39 PM EDT [facility] Disclaimer Unless otherwise specified, all tissue is 10% NB formalin fixed and paraffin embedded. 07/06/2024 12:39 PM EDT [facility] Tissue Stomach structure / Unknown 07/02/2024 7:42 AM EDT 07/02/2024 9:56 AM EDT Ari Davis MD LAB PATHOLOGY ORDERABLES Final Result [facility] [address] [place] [address], [place] [phone] * ECG 12 lead (07/01/2024 5:38 AM EDT) Ventricular Rate ECG 74 BPM GEMUSE Atrial Rate 74 BPM GEMUSE P-R Interval 120 ms GEMUSE QRS Duration 76 ms GEMUSE Q-T Interval 406 ms GEMUSE QTc 450 ms GEMUSE P Wave Eure 30 degrees GEMUSE R Eure 16 degrees GEMUSE T Eure 53 degrees GEMUSE ECG Interpretation Normal sinus rhythm Normal ECG When compared with ECG of 04-NOV-2023 18:08, No significant change was found Confirmed by MD Shabbir, [place] ([id number]) on 07/02/2024 7:23:30 AM GEMUSE 07/01/2024 5:38 AM EDT 07/02/2024 7:23 AM EDT Kristyn PARKER ECG ORDERABLES Final Result Performing Organization Address [facility] de Phone Number GEMUSE * Hepatitis B surface antigen with reflex to confirmation (07/01/2024 5:19 AM EDT) Pathologist [facility] Hepatitis B Surface Ag Negative Negative LAB CHEMISTRY METHOD 07/01/2024 10:19 AM EDT [facility] Blood Venous blood specimen / Unknown Venipuncture / Unknown 07/01/2024 5:19 AM EDT 07/01/2024 6:17 AM EDT Narrative [facility] - 07/01/2024 10:19 AM EDT Over the counter supplements containing high doses of biotin may interfere with this assay. If interference is suspected, patients shoud be retested after refraining from biotin supplements for 72 hours. Sergo Wallis MD LAB BLOOD ORDERABLES Final Re sult Performing Organization Address [facility]/ZIP Co de Phone Number [facility] [address] [place] [address], * (ABNORMAL) Nicotine and cotinine (07/01/2024 5:19 AM EDT) Nicotine <2.0 <2.0 ng/mL 07/07/2024 4:39 AM EDT [facility] Cotinine 243.4(H) <2.0 ng/mL 07/07/2024 4:39 AM EDT [facility] Comment: Additional Reference Ranges: Active Tobacco Passive Abstinence User Exposure 2 Weeks and more Nicotine 30 - 50 ng/mL <2 ng/mL <2 ng/mL Cotinine 200 - 800 ng/mL <8 ng/mL <2 ng/mL Reference Ranges from: Clin. Chem.; 48:4402-5354 (2002) Direct any interpretive questions to the toxicology laboratory. This is for medical use only, it is not intended for forensic use. If applicable, any drug confirmation testing reported here was developed and the performance characteristics determined by [facility]. This confirmation testing has not been cleared or approved by the FDA. The laboratory is regulated under CLIA as qualified to perform high-complexity testing. This test is used for patient testing purposes. It should not be regarded as investigational or for research. Test performed at [facility], [address] , [place] [address] Kim Castelan MD, PhD - Plate Furnace Operator Blood Venous blood specimen / Unknown Venipuncture / Unknown 07/01/2024 5:19 AM EDT 07/01/2024 6:17 AM EDT us Angela PARKER LAB BLOOD ORDERABLES Final Resu lt [facility] [address] [place], [place] [id number] * (ABNORMAL) Iron and TIBC (07/01/2024 5:19 AM EDT) Iron 64 40 - 150 mcg/dL LAB CHEMISTRY METHOD 07/01/2024 7:34 PM EDT [facility] TIBC 191(L) 250 - 450 mcg/dL LAB CHEMISTRY METHOD 07/01/2024 7:34 PM EDT [facility] Iron Saturation 34 15 - 50 % LAB CHEMISTRY METHOD 07/01/2024 7:34 PM EDT [facility] Blood Venous blood specimen / Unknown Venipuncture / Unknown 07/01/2024 5:19 AM EDT 07/01/2024 6:17 AM EDT us Sergo Wallis MD LAB BLOOD ORDERABLES Final Re sult Performing Organization Address [facility] Co de Phone Number [facility] [address] [place] [address], [place] [phone] * (ABNORMAL) Hepatitis B surface antibody quantitative (07/01/2024 5:19 AM EDT) [facility] Hepatitis B Surface Ab Positive (A) Negative LAB CHEMISTRY METHOD 07/01/2024 8:54 AM EDT [facility] Hepatitis B Surface Ab Quantitative >1,000.0 mIU/mL LAB CHEMISTRY METHOD 07/01/2024 8:54 AM EDT [facility] Blood Venous blood specimen / Unknown Venipuncture / Unknown 07/01/2024 5:19 AM EDT 07/01/2024 6:17 AM EDT Narrative [facility] - 07/01/2024 8:54 AM EDT >=10 mIU/mL is considered to be consistent with immunity. us Sergo Wallis MD LAB BLOOD ORDERABLES Final Re sult Performing Organization Address [facility]/ZIP Co de Phone Number [facility] [address] [place] [address], [place] [phone] * (ABNORMAL) Complete blood count (07/01/2024 5:19 AM EDT) [facility] Signature WBC 6.1 4.8 - 10.8 K/mcL LAB HEMETOLOGY METHOD 07/01/2024 6:54 AM [facility] RBC 3.50(L) 3.80 - 4.80 M/mcL LAB HEMETOLOGY METHOD 07/01/2024 6:54 AM [facility] Hemoglobin 10.9(L) 11.5 - 16.0 g/dL LAB HEMETOLOGY METHOD 07/01/2024 6:54 AM [facility] Hematocrit 34.6(L) 35.0 - 47.0 % LAB HEMETOLOGY METHOD 07/01/2024 6:54 AM [facility] MCV 97.7 79.0 - 98.0 FL LAB HEMETOLOGY METHOD 07/01/2024 6:54 AM [facility] MCH 30.8 27.0 - 32.0 pcg LAB HEMETOLOGY METHOD 07/01/2024 6:54 AM [facility] MCHC 31.5(L) 32.0 - 37.0 g/dL LAB HEMETOLOGY METHOD 07/01/2024 6:54 AM [facility] RDW 13.6 11.0 - 15.0 % LAB HEMETOLOGY METHOD 07/01/2024 6:54 AM [facility] Platelets 212 130 - 400 K/mcL LAB HEMETOLOGY METHOD 07/01/2024 6:54 AM [facility] MPV 10.5 7.0 - 11.0 FL LAB HEMETOLOGY METHOD 07/01/2024 6:54 AM [facility] NRBC 0.0 <1.0 % LAB HEMETOLOGY METHOD 07/01/2024 6:54 AM [facility] NRBC Absolute 0.00 <0.10 K/mcL LAB HEMETOLOGY METHOD 07/01/2024 6:54 AM EDT [facility] Blood Venous blood specimen / Unknown Venipuncture / Unknown 07/01/2024 5:19 AM EDT 07/01/2024 6:18 AM EDT Kirby Fulton MD LAB BLOOD ORDERABLES Final Res ult [facility] [address] [place] [address], [place] [phone] * Vitamin B12 (07/01/2024 5:19 AM EDT) [facility] Vitamin B-12 447 250 - 900 pcg/mL LAB CHEMISTRY METHOD 07/01/2024 7:32 PM EDT [facility] Blood Venous blood specimen / Unknown Venipuncture / Unknown 07/01/2024 5:19 AM EDT 07/01/2024 6:17 AM EDT us Sergo Wallis MD LAB BLOOD ORDERABLES Final Re sult Performing Organization Address City/[facility]/ZIP Co de Phone Number [facility] [address] [place] [address], [place] [phone] * (ABNORMAL) Hemoglobin and hematocrit (06/30/2024 11:34 PM EDT) Only the most recent of2 resultswithin the time period is included. Pathologist [facility] Hemoglobin 11.3(L) 11.5 - 16.0 g/dL LAB HEMETOLOGY METHOD 06/30/2024 11:49 PM EDT [facility] Hematocrit 36.0 35.0 - 47.0 % LAB HEMETOLOGY METHOD 06/30/2024 11:49 PM EDT [facility] Blood Venous blood specimen / Unknown Venipuncture / Unknown 06/30/2024 11:34 PM EDT 06/30/2024 11:43 PM EDT us Lenka PARKER LAB BLOOD ORDERABLES nal Result [facility] [address] [place] [address], [place] [phone] * CT Abdomen Pelvis wo Contrast (06/30/2024 [...] Signed Date: 06/30/2024 10:21 ET Workstation ID: [id number] Transcribed By: Self Edit Transcribed Date: 06/30/2024 10:10 ET Narrative 06/30/2024 10:21 AM EDT INDICATION: flank pain TECHNIQUE: CT scan of the abdomen and pelvis obtained utilizing the renal stone protocol therefore no intravenous or oral contrast was administered. Scanner: [employer] 128 slice VCT Dose reduction technique: ASIR [...] no intravenous or oral contrast wasadministered. Scanner: [employer] 128 slice VCT Dose reduction technique: ASIR [...] Signed Date: 06/30/2024 10:21 ET Workstation ID: [id number] Transcribed By: Self Edit Transcribed Date: 06/30/2024 10:10 ET us Claude Lucia MD IMG CT PROCEDURES Final Result * Type and screen (06/30/2024 8:46 AM EDT) ABO Group O 07/15/2024 2:02 PM EDT [facility] Rh Type Positive 07/15/2024 2:02 PM EDT [facility] Antibody Screen Negative 07/15/2024 2:02 PM EDT [facility] Blood Venous blood specimen / Unknown Venipuncture / Unknown 06/30/2024 8:46 AM EDT 06/30/2024 9:11 AM EDT us Claude Lucia MD LAB BLOOD BANK TEST ORDERABLES Final Result [facility] [address] [place] [address], * Protime-INR (06/30/2024 8:34 AM EDT) Protime 11.4 10.6 - 13.9 sec LAB COAGULATION METHOD 06/30/2024 9:18 AM EDT [facility] INR 0.9 LAB COAGULATION METHOD 06/30/2024 9:18 AM EDT [facility] Blood Venous blood specimen / Unknown Venipuncture / Unknown 06/30/2024 8:34 AM EDT 06/30/2024 9:02 AM EDT us Claude Lucia MD LAB BLOOD ORDERABLES Final Resu lt Performing Organization Address City/[facility]/ZIP Co de Phone Number [facility] [address] [place] [address], [place] [phone] * Lipase (06/30/2024 8:34 AM EDT) Lipase 56 13 - 75 unit/L LAB CHEMISTRY METHOD 06/30/2024 9:50 AM EDT [facility] Blood Venous blood specimen / Unknown Venipuncture / Unknown 06/30/2024 8:34 AM EDT 06/30/2024 9:02 AM EDT us Claude Lucia MD LAB BLOOD ORDERABLES Final Resu lt Performing Organization Address [facility]/ZIP Co de Phone Number [facility] [address] [place] [address], [place] [phone] * (ABNORMAL) Comprehensive metabolic panel (06/30/2024 8:34 AM EDT) [facility] Sodium 138 133 - 145 mmol/L LAB CHEMISTRY METHOD 06/30/2024 10:17 AM [facility] Potassium 5.1 3.5 - 5.5 mmol/L LAB CHEMISTRY METHOD 06/30/2024 10:17 AM [facility] Comment:Hemolysis present Chloride 108 96 - 110 mmol/L LAB CHEMISTRY METHOD 06/30/2024 10:17 AM [facility] CO2 23 21 - 32 mmol/L LAB CHEMISTRY METHOD 06/30/2024 10:17 AM [facility] Anion Gap 7 3 - 11 LAB CHEMISTRY METHOD 06/30/2024 10:17 AM [facility] Glucose 103(H) 70 - 100 mg/dL LAB CHEMISTRY METHOD 06/30/2024 10:17 AM [facility] BUN 26(H) 5 - 25 mg/dL LAB CHEMISTRY METHOD 06/30/2024 10:17 AM [facility] Creatinine 6.44(H) 0.50 - 1.10 mg/dL LAB CHEMISTRY METHOD 06/30/2024 10:17 AM [facility] eGFR 7(L) >=60 mL/min/1. 73m2 LAB CHEMISTRY METHOD 06/30/2024 10:17 AM [facility] Comment:Calculation based on the Chronic Kidney Disease Epidemiology Collaboration (CKD-EPI) equation refit without adjustment for race. BUN/Creatinine Ratio 4.0 LAB CHEMISTRY METHOD 06/30/2024 10:17 AM [facility] Calcium 9.7 8.5 - 10.5 mg/dL LAB CHEMISTRY METHOD 06/30/2024 10:17 AM [facility] AST (SGOT) 20 10 - 42 unit/L LAB CHEMISTRY METHOD 06/30/2024 10:17 AM [facility] Comment:Hemolysis present ALT (SGPT) 24 10 - 60 unit/L LAB CHEMISTRY METHOD 06/30/2024 10:17 AM [facility] Alkaline Phosphatase 240(H) 42 - 121 unit/L LAB CHEMISTRY METHOD 06/30/2024 10:17 AM [facility] Total Protein 6.9 6.0 - 8.0 g/dL LAB CHEMISTRY METHOD 06/30/2024 10:17 AM [facility] Albumin 3.5 3.2 - 5.0 g/dL LAB CHEMISTRY METHOD 06/30/2024 10:17 AM [facility] Total Bilirubin 0.4 0.0 - 1.4 mg/dL LAB CHEMISTRY METHOD 06/30/2024 10:17 AM [facility] Blood Venous blood specimen / Unknown Venipuncture / Unknown 06/30/2024 8:34 AM EDT 06/30/2024 9:02 AM EDT us Claude Lucia MD LAB BLOOD ORDERABLES Final Resu lt [facility]) [facility] [address] [place] [address], [place] [phone] from Last 3 Months Insurance MEDICAID - [place] MEDICARE Advance Directives Documents on File Type Date 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 Care Teams Picker/Puller Relationship Specialty Start Date End Date Sam Lynch MD [address] [place] [address] [address] [place] PCP - General 10/25/22
--- OUTSIDE RECORDS SUMMARY | 2024-08-17 12:25 | XMS_ITS | Encounter Summary ---
Author Organization [facility] Address [address] [place] [address] Phone Care Team Providers Care Casino Manager Name Role Phone Rozina Nicole MD Primary Care Provider [phone] Encounter Details Date Type Department Care Team (Late st Contact Info) Description 05/08/2020 Orders Only [facility] [address] [place] [address] Provider, MD Wendy Social History [...] on filedocumented in this encounter Care Teams Casino Manager Relationship Specialty Start Date End Date Rozina Nicole MD [address] [place], [place] PCP - General 02/21/20 documented as of this encounter
[2024-08-17 12:28] LABS: Alanine Aminotransferase 8 U/L (0-31); Albumin Level 3.7 g/dL (3.5-5.0); Alkaline Phosphatase 173 U/L (39-117); Anion Gap 13 (12-20); Aspartate Amino Transferase 17 U/L (5-31); Blood Urea Nitrogen 27 mg/dL (9-16); Calcium 9.3 mg/dL (8.4-10.2); Carbon Dioxide 25 mmol/L (22-29); Chloride 105 mmol/L (96-108); Lipase 42 U/L (8-78); Potassium 4.4 mmol/L (3.3-5.1); Sodium 139 mmol/L (135-145); Total Protein 6.3 g/dL (6.5-8.0)
[2024-08-17 12:34] LABS: Creatinine Clr Calc Pharmacy 12.8; Estimated Glomerular Filt Rate 10
[2024-08-17 12:39] VITALS: BP 175/96; PULSE 77; RESP 14
[2024-08-17 13:16] VITALS: BP 183/94; PULSE 79; RESP 16; O2SAT 99
[2024-08-17 13:53] LABS: MANUAL DIFF FLAG NO
[2024-08-17 13:58] LABS: Hematocrit 32.4 % (37.0-47.0); Hemoglobin 10.8 g/dl (12.0-16.0); Imm Gran Abs Auto 0.06 X10*3/uL (0.00-0.03); Imm Gran Pct Auto 0.5 % (0.0-0.4); Lymphocytes Absolute Auto 0.8 X10*3/uL (1.2-4.9); Mean Corpuscular HGB Conc 33.3 g/dl (31.0-35.0); Mean Corpuscular Hemoglobin 30.4 pg (27.0-33.0); Mean Corpuscular Volume 91.3 fL (80.0-98.0); NRBC Abs Auto 0.000 X10*3/uL (0.0-0.012); NRBC Pct Auto 0.0 /100WBC (0.0-0.2); Platelet Count 265 X10*3/uL (160-400); Red Blood Count 3.55 X10*6/uL (4.20-5.50); White Blood Count 11.6 X10*3/uL (4.8-10.8)
[2024-08-17 14:33] VITALS: BP 195/107; PULSE 83; RESP 16; O2SAT 99
--- NOTE | 2024-08-17 14:35 | PC.NURSE ---
Provider aware of pt high BP- monitor cycling to monitor BP. Pt asymptomatic at this time, resting in bed with eyes closed, respirations even and unlabored, no increased wob/sob noted. Call simon within reach, all needs met at this time.
[2024-08-17 18:36] VITALS: BP 195/107; PULSE 83; RESP 16; TEMP 36.8; O2SAT 99
== END 2024-08-17 18:37 | disposition home or self-care (01) ==
PROVIDERS: Emergency Provider Emergency Medicine; PCP Internal Medicine
DX: R10.13 Epigastric pain (principal); R11.2 Nausea with vomiting, unspecified; I10 Essential (primary) hypertension; E78.5 Hyperlipidemia, unspecified; Z79.899 Other long term (current) drug therapy
CPT/HCPCS: 36415; 80053; 83690; 85025; 85610; 85730; 93005; 96361; 96374; 96375; 99284; 99285; J0737; J2250; J2270; J2405; J2470

== ENCOUNTER → 2024-08-17 11:12 | Outpatient (BNV) | payer MEDICARE, MEDICAID, SELFPAY | PROVIDERS: Emergency Provider Emergency Medicine; PCP Internal Medicine; Visit Provider Internal Medicine Cardiovascular Disease | DX: R07.89 Other chest pain (principal) | CPT/HCPCS: 93010 ==

== ENCOUNTER 2024-09-03 10:40 | Day surgery (SDC) | payer MEDICARE, MEDICAID, SELFPAY ==
--- OUTSIDE RECORDS SUMMARY | 2024-08-25 13:52 | XMS_ITS | Encounter Summary ---
Author Organization [facility] Address [address] [place] [address] Phone Care Team Providers Care Classified Advertising Clerk Name Role Phone Rozina Nicole MD Primary Care Provider [phone] Encounter Details Date Type Department Care Team (Late st Contact Info) Description 05/08/2020 Orders Only [facility] [address] [place] [address] Provider, MD Wendy Social History [...] on filedocumented in this encounter Care Teams Classified Advertising Clerk Relationship Specialty Start Date End Date Rozina Nicole MD [address] [place], [place] PCP - General 02/21/20 documented as of this encounter
--- OUTSIDE RECORDS SUMMARY | 2024-08-25 13:52 | XMS_ITS | Clinical Summary ---
Author Organization 175 [facility] Address [address] [place] [address] Phone Care Team Providers Care Glove Brusher Name Role Phone Sam Lynch MD Primary [...] 32.9 in adult 11/26/2023 Acute kidney failure ([facility] V24) 04/26/2021 Benign essential hypertension 04/26/2021 Dependence on renal dialysis ([facility] V24) 04/26 Disorder of kidney and ureter, unspecified 04/26 ESRD on hemodialysis ([facility] V24, [facility] V28) 04/26/2021 Hypertensive heart and chron ic kidney disease with heart failure and stage 1 through stage 4 chronic kidney disease, or unspecified chronic kidney disease ([facility] V24, [facility] V28) 04/26/2021 Vitamin D deficiency 04/26/2021 Resolved Problems Problem Noted Date Diagnosed Date Resolved Date Upper GI bleed 06/30/2024 07/03/2024 Encounters Date Type Department Care Team Description 08/25/2024 8:42 AM EDT - Present Emergency [facility] Emergency [address] [place] [phone] Claude Grey MD 07/15/2024 2:00 PM EDT Office Visit Bariatric Surgery - [place] 175 [facility] [address] [place] [phone] Gerson Rosen MD Marginal ulcers (Primary Dx) 07/07/2024 Telephone Gastroenterology - [address] [facility] [address] [facility] [address] [place] [address] Michelle Cowan MA Results 07/02/2024 7:25 AM EDT Anesthesia Event [facility] Endoscopy [address] [place] [address] Dayna Clements MD Claudio, Raymund, SANDY 06/30/2024 8:21 AM EDT - 07/03/2024 6:47 PM EDT Hospital Encounter [facility] Medical Surgical Unit [address] [place] [address] Claude Lucia MD Bukalo, Nermina, MD Zipagan, James T, MD Upper GI bleed (Primary Dx) Discharge Disposition: Home or Self Care 06/14/2024 Telephone Bariatric Surgery - [place] 175 [facility] [address] [place] [address] Gerson Rosen MD from Last 3 Months Surgical History Surgery Date Site/Laterality Comments OTHER SURGICAL HISTORY PROCEDURE: DIALYSIS ACCESS SYSTEM LAPAROSCOPIC GASTRIC BANDING PROCEDURE: LAP ADJUSTABLE GASTRIC BAND HYSTERECTOMY PROCEDURE: HISTORICAL HYSTERECTOMY OTHER SURGICAL HISTORY PROCEDURE: COLONOSCOPY LESION REMOVAL OTHER SURGICAL HISTORY 06/13/2021 Left PROCEDURE: NH CRTJ ARVEN FSTL XCP DIR ARVEN ANAST [...] Sign Reading Time Taken Comments Blood Pressure 130/72 08/25/2024 11:40 AM EDT Pulse 94 08/25/2024 11:40 AM EDT Temperature 36.8 C (98.2 F) 08/25/2024 9:03 AM EDT Respiratory Rate 18 08/25/2024 11:40 AM EDT Oxygen Saturation 96% 08/25/2024 11:40 AM EDT Inhaled Oxygen Concentration - - Weight 58.5 kg (129 lb) 07/15/2024 2:00 PM EDT Height 165.1 cm (5' 5 ) 07/15/2024 2:00 PM EDT Body Mass Index 21.47 07/15/2024 2:00 PM EDT Plan of Treatment Upcoming Encounters Date Type Department Care Team (Late st Contact Info) Description 09/01/2024 3:15 PM EDT Office Visit Bariatric Surgery [facility] [address] [phone] Grace Abarca PA [address] [address] 11/18/2024 1:15 PM EDT Office Visit Bariatric Surgery [facility] [address] [phone] Gerson Rosen MD [address] [address] Health Maintenance Due Date Last Done Comments Breast Cancer Screening 1970 DTaP,Tdap,and Td Vaccines (1 - Tdap) 07/26/1990 Zoster Vaccines (1 of 2) 07/26/1990 Cervical Cancer Screening: Pap Smear 07/26/1992 Colorectal Cancer Screening: Colonoscopy 01/20/2022 HIV Screening 01/20/2022 Medicare Annual Wellness Visit 01/20/2022 Social Influencers of Health Screening 01/20/2022 Hepatitis B Vaccines (3 of 3 - 19+ 3-dose series) 09/17/2022 06/21/2022, 03/20/2022 COVID-19 Vaccine (4 - season) 2023 01/19/2021, 07/05/2020, 05/31/2020 Depression Screening 02/11/2024 Influenza Vaccine (#1) 2024 , 11/11/2022, 11/14/2021, Additional history exists Hypertension/CHF/CAD Annual BMP Blood Test 08/25/2025 08/25/2024, 07/02/2024, 07/01/2024, Additional history exists Pneumococcal Vaccine: 50+ Years (3 of 3 - PCV20 or PCV21) 03/27/2026 03/27/2021, 10/31/2016 Cholesterol Screening (Lipid Panel) 08/16/2029 08/16/2024, 05/14/2024, 02/20/2024 Hepatitis C Screening Completed 11/02/2020 [...] patient's age to complete this topic Procedures * The patient is currently admitted. The information in this section might not be complete until the patient is discharged. Procedure Name Priority Date/Time Associated Diagnosis Comments CT ABDOMEN PELVIS W CONTRAST STAT 08/25/2024 12:55 PM EDT ECG 12-LEAD STAT 08/25/2024 9:43 AM EDT PHOSPHORUS STAT Add-on 08/25/2024 9:00 AM EDT MAGNESIUM Add-On 08/25/2024 9:00 AM EDT TROPONIN I HIGH SENSITIVITY STAT 08/25/2024 9:00 AM EDT CBC WITH AUTO DIFFERENTIAL STAT 08/25/2024 9:00 AM EDT TYPE AND SCREEN STAT 08/25/2024 9:00 AM EDT LIPASE STAT 08/25/2024 9:00 AM EDT COMPREHENSIVE METABOLIC PANEL STAT 08/25/2024 9:00 AM EDT CBC AND DIFFERENTIAL STAT 08/25/2024 9:00 AM EDT US DUPLEX ABDOMEN/PELVIS/RETRO LIMITED Routine 07/02/2024 6:56 [...] EDT Upper GI bleed HEMODIALYSIS INPATIENT Routine 07/01/2024 12:16 PM EDT HEMODIALYSIS INPATIENT Routine 07/01/2024 11:55 AM EDT ECG 12-LEAD Routine 07/01/2024 [...] EDT from Last 3 Months Results * CT Abdomen Pelvis w Contrast (08/25/2024 12:55 PM EDT) Anatomical Region Laterality Modality Body Computed Tomogra phy 08/25/2024 1:11 PM EDT Impressions 08/25/2024 1:29 PM EDT Impression: 1. New mild ascites. 2. Moderately distended gallbladder. Consider right upper quadrant ultrasound for further assessment if there are clinical findings concerning for acute cholecystitis. 3. Status post sleeve gastrectomy and gastric bypass surgery. No evidence [place] ([id number]) -------- FINAL REPORT -------- Dictated By: Jessy Bob Dictated Date: 08/25/2024 13:11 ET Assigned Physician: Jessy Bob Reviewed and Electronically Signed By: Jessy Bob Signed Date: 08/25/2024 13:29 ET Workstation ID: [id number] Transcribed By: Self Edit Transcribed Date: 08/25/2024 13:11 ET Narrative 08/25/2024 1:29 PM EDT History: Abdominal pain, nausea, vomiting and hematemesis. Prior gastric surgery. End-stage renal disease on hemodialysis. Comparison: 06/30/[address] Technique: Helical volumetric imaging of the abdomen and pelvis was performed following oral contrast and during the uneventful intravenous administration of 90 cc Isovue-370. DLP: 480.35 mGy/cm [employer] VCT Iterative reconstruction technique Findings: The liver is normal in size and configuration. No masses are identified. The portal and hepatic veins are patent. The gallbladder is moderately distended. No biliary ductal dilatation is seen. The spleen, pancreas and adrenal glands are unremarkable. The kidneys are small, with diffuse cortical thinning, consistent with known end-stage renal disease. The urinary bladder is moderately distended and there is mild right hydroureteronephrosis, possibly related to reflux. A small volume of ascites is new from the previous study. No developing lymphadenopathy is seen. A coarse, lamellated calcification in the right lower quadrant retroperitoneum is stable from the previous study. There is no abdominal aortic aneurysm. The uterus is absent. No evidence of bowel obstruction is seen. Enteric contrast given for the study has reached the colon. The stomach is poorly distended, limiting assessment of its wall. Sleeve gastrectomy and gastric bypass surgical sequela are again seen. A degenerative grade 1 anterolisthesis is noted at L4-L5, unchanged. Procedure Note Jessy Bob MD - 08/25/2024 History: Abdominal pain, nausea, vomiting and hematemesis. Prior gastricsurgery. End-stage renal disease on hemodialysis. Comparison: 06/30/[address] Technique: Helical volumetric imaging of the abdomen and pelvis wasperformed following oral contrast and during the uneventful intravenousadministration of 90 cc Isovue-370. DLP: 480.35 mGy/cm [employer] Iterative reconstruction technique Findings: The liver is normal in size and configuration. No masses are identified.The portal and hepatic veins are patent. The gallbladder is moderatelydistended. No biliary ductal dilatation is seen. The spleen, pancreas and adrenal glands are unremarkable. The kidneys are small, with diffuse cortical thinning, consistent withknown end- stage renal disease. The urinary bladder is moderately distendedand there is mild right hydroureteronephrosis, possibly related toreflux. A small volume of ascites is new from the previous study. No developinglymphadenopathy is seen. A coarse, lamellated calcification in the rightlower quadrant retroperitoneum is stable from the previous study. There isno abdominal aortic aneurysm. The uterus is absent. No evidence of bowel obstruction is seen. Enteric contrast given for thestudy has reached the colon. The stomach is poorly distended, limitingassessment of its wall. Sleeve gastrectomy and gastric bypass surgicalsequela are again seen. A degenerative grade 1 anterolisthesis is noted at L4-L5, unchanged. IMPRESSION: Impression: 1. New mild ascites. 2. Moderately distended gallbladder. Consider right upper quadrantultrasound for further assessment if there are clinical findingsconcerning for acute cholecystitis. 3. Status post sleeve gastrectomy and gastric bypass surgery. No evidenceof bowel [place] ([id number]) -------- FINAL REPORT -------- Dictated By: Jessy Bob Dictated Date: 08/25/2024 13:11 ET Assigned Physician: Jessy Bob Reviewed and Electronically Signed By: Jessy Bob Signed Date: 08/25/2024 13:29 ET Workstation ID: [id number] Transcribed By: Self Edit Transcribed Date: 08/25/2024 13:11 ET us John PARKER IMG CT PROCEDURES Final R esult * ECG 12 lead (08/25/2024 9:43 AM EDT) Only the most recent of2 resultswithin the time period is included. [facility] Ventricular Rate ECG 84 BPM GEMUSE Atrial Rate 84 BPM GEMUSE P-R Interval 102 ms GEMUSE QRS Duration 78 ms GEMUSE Q-T Interval 394 ms GEMUSE QTc 465 ms GEMUSE P Wave [place] 25 degrees GEMUSE R [place] 22 degrees GEMUSE T [place] 52 degrees GEMUSE ECG Interpretation Sinus rhythm with short [place] Otherwise normal ECG When compared with ECG of 01-JUL-2024 05:38, No significant change was found Confirmed by KATTY GRANT ([id number]) on 08/25/2024 10:37:08 AM GEMUSE 08/25/2024 9:43 AM EDT 08/25/2024 10:37 AM EDT us Vaibhav Ozuna MD ECG ORDERABLES Final Result GEMUSE * Troponin I high sensitivity (NOW and then in 1 hour) (08/25/2024 9:00 AM EDT) [facility] High Sensitivity Troponin I 6 <=54 ng/L LAB CHEMISTRY METHOD 08/25/2024 10:14 AM EDT [facility] Blood Venous blood specimen / Unknown Venipuncture / Unknown 08/25/2024 9:00 AM EDT 08/25/2024 9:41 AM EDT Narrative [facility] - 08/25/2024 10:14 AM EDT High levels of biotin in samples may falsely decrease hsTroponin values. Use caution when interpreting hsTroponin results in patients taking biotin who exhibit renal impairment (eGFR <60) or in patients taking more than 20 mg/day of biotin. us Vaibhav Ozuna MD LAB BLOOD ORDERABLES Final Re sult [facility] [address] [place] [address], * (ABNORMAL) CBC auto differential (08/25/2024 9:00 AM EDT) Only the most recent of3 resultswithin the time period is included. WBC 12.4(H) 4.8 - 10.8 K/mcL LAB [facility] RBC 3.60(L) 3.80 - 4.80 M/mcL LAB HEMETOLOGY METHOD [facility]24 [facility] Hemoglobin 11.2(L) 11.5 - 16.0 g/dL LAB HEMETOLOGY METHOD 08/25/2024 9:[address] [facility] Hematocrit 34.4(L) 35.0 - 47.0 % LAB HEMETOLOGY METHOD 08/25/2024 9:[address] [facility] MCV 95.6 79.0 - 98.0 FL LAB HEMETOLOGY METHOD [facility]2024 9[facility] MCH 31.1 27.0 - 32.0 pcg LAB HEMETOLOGY METHOD 08/25/2024 9:[address] [facility] MCHC 32.6 32.0 - 37.0 g/dL LAB HEMETOLOGY METHOD 08/25/2024 9:[address] [facility] RDW 15.4(H) 11.0 - 15.0 % LAB HEMETOLOGY METHOD 08/25/2024 9:[address] [facility] Platelets 321 130 - 400 K/mcL LAB HEMETOLOGY METHOD 08/25/2024 9:[address] [facility] MPV 10.3 7.0 - 11.0 FL LAB HEMETOLOGY METHOD 08/25/2024 9:[address] [facility] NRBC 0.0 <1.0 % LAB HEMETOLOGY METHOD 08/25/2024 9:[address] [facility] NRBC Absolute 0.00 <0.10 K/mcL LAB HEMETOLOGY METHOD 08/25/2024 9:[address] [facility] Neutrophils Relative 84.3 % LAB HEMETOLOGY METHOD 08/25/2024 9:[address] [facility] Lymphocytes Relative 8.7 % LAB HEMETOLOGY METHOD 08/25/2024 9:[address] [facility] Monocytes Relative 4.8 % LAB HEMETOLOGY METHOD 08/25/2024 9:[address] [facility] Eosinophils Relative 1.2 % LAB HEMETOLOGY METHOD 08/25/2024 9:[address] [facility] Basophils Relative 0.6 % LAB HEMETOLOGY METHOD 08/25/2024 9:[address] [facility] Immature Granulocytes Relative 0.4 % LAB HEMETOLOGY METHOD 08/25/2024 9:[address] [facility] Neutrophils Absolute 10.40(H) 1.50 - 7.00 K/mcL LAB HEMETOLOGY METHOD 08/25/2024 9:[address] [facility] Lymphocytes Absolute 1.08 1.00 - 5.00 K/mcL LAB HEMETOLOGY METHOD 08/25/2024 9:[address] [facility] Monocytes Absolute 0.59 0.20 - 1.00 K/mcL LAB HEMETOLOGY METHOD 08/25/2024 9:[address] [facility] Eosinophils Absolute 0.15 0.00 - 0.50 K/[facility] LAB HEMETOLOGY METHOD 08/25/2024 9:47 AM EDT [facility] Basophils Absolute 0.08 0.00 - 0.20 K/[facility] LAB HEMETOLOGY METHOD 08/25/2024 9:47 AM EDT [facility] Immature Granulocytes Absolute 0.05(H) 0.00 - 0.03 K/[facility] LAB HEMETOLOGY METHOD 08/25/2024 9:47 AM EDT [facility] Blood Venous blood specimen / Unknown Venipuncture / Unknown 08/25/2024 9:00 AM EDT 08/25/2024 9:41 AM EDT us Vaibhav Ozuna MD LAB BLOOD ORDERABLES Final Re sult Performing Organization Address [facility]/ZIP Co de Phone Number [facility] [address] [place] [address], [place] [phone] * Type and screen (08/25/2024 9:00 AM EDT) Only the most recent of2 resultswithin the time period is included. ABO Group O 08/25/2024 10:25 AM EDT [facility] Rh Type Positive 08/25/2024 10:25 AM EDT [facility] Antibody Screen Negative 08/25/2024 10:25 AM EDT [facility] Blood Venous blood specimen / Unknown Venipuncture / Unknown 08/25/2024 9:00 AM EDT 08/25/2024 9:41 AM EDT us Vaibhav Ozuna MD LAB BLOOD BANK TEST ORDERABLE S Final Result Performing Organization Address [facility]/ZIP Co de Phone Number [facility] [address] [place] [address], [place] [phone] * Phosphorus (08/25/2024 9:00 AM EDT) Phosphorus 3.2 2.5 - 4.5 mg/dL LAB CHEMISTRY METHOD 08/25/2024 10:12 AM EDT [facility] Blood Venous blood specimen / Unknown Venipuncture / Unknown 08/25/2024 9:00 AM EDT 08/25/2024 9:41 AM EDT [facility] Bhanu Robert PA LAB BLOOD ORDERABLES Jennifer l Result [facility] [address] [place] [address], [place] [phone] * Magnesium (08/25/2024 9:00 AM EDT) Magnesium 2.1 1.9 - 2.6 mg/dL LAB CHEMISTRY METHOD 08/25/2024 10:12 AM EDT [facility] Blood Venous blood specimen / Unknown Venipuncture / Unknown 08/25/2024 9:00 AM EDT 08/25/2024 9:41 AM EDT [facility] BLOOD ORDERABLES Jennifer l Result Performing Organization Address City/[facility]/ZIP Co de Phone Number [facility] [address] [place] [address], [place] [phone] * (ABNORMAL) Lipase (08/25/2024 9:00 AM EDT) Only the most recent of2 resultswithin the time period is included. Lipase 96(H) 13 - 75 unit/L LAB CHEMISTRY METHOD 08/25/2024 10:12 AM EDT [facility] Blood Venous blood specimen / Unknown Venipuncture / Unknown 08/25/2024 9:00 AM EDT 08/25/2024 9:41 AM EDT us Vaibhav Ozuna MD LAB BLOOD ORDERABLES Final Re sult [facility] [address] [place] [address], * (ABNORMAL) Comprehensive metabolic panel (08/25/2024 9:00 AM EDT) Only the most recent of2 resultswithin the time period is included. Pathologist [facility] Sodium 135 133 - 145 mmol/L LAB CHEMISTRY METHOD 08/25/2024 10:[address] [facility] Potassium 5.4 3.5 - 5.5 mmol/L LAB CHEMISTRY METHOD 08/25/2024 10:[address] [facility] Chloride 100 96 - 110 mmol/L LAB CHEMISTRY METHOD 08/25/2024 10:[address] [facility] CO2 29 21 - 32 mmol/L LAB CHEMISTRY METHOD 08/25/2024 10:[address] [facility] Anion Gap 6 3 - 11 LAB CHEMISTRY METHOD 08/25/2024 10:[address] [facility] Glucose 109(H) 70 - 100 mg/dL LAB CHEMISTRY METHOD 08/25/2024 10:[address] [facility] BUN 22 5 - 25 mg/dL LAB CHEMISTRY METHOD 08/25/2024 10:[address] [facility] Creatinine 5.00(H) 0.50 - 1.10 mg/dL LAB CHEMISTRY METHOD 08/25/2024 10:[address] [facility] eGFR 10(L) >=60 mL/min/1. 73m2 LAB CHEMISTRY METHOD 08/25/2024 10:[address] [facility] Comment:Calculation based on the Chronic Kidney Disease Epidemiology Collaboration (CKD-EPI) equation refit without adjustment for race. BUN/Creatinine Ratio 4.4 LAB CHEMISTRY METHOD 08/25/2024 10:[address] [facility] Calcium 9.2 8.5 - 10.5 mg/dL LAB CHEMISTRY METHOD 08/25/2024 10:13 AM EDT [facility] AST (SGOT) 20 10 - 42 unit/L LAB CHEMISTRY METHOD 08/25/2024 10:13 AM EDT [facility] ALT (SGPT) 29 10 - 60 unit/L LAB CHEMISTRY METHOD 08/25/2024 10:13 AM EDT [facility] Alkaline Phosphatase 216(H) 42 - 121 unit/L LAB CHEMISTRY METHOD 08/25/2024 10:13 AM EDT [facility] Total Protein 6.2 6.0 - 8.0 g/dL LAB CHEMISTRY METHOD 08/25/2024 10:13 AM EDT [facility] Albumin 3.2 3.2 - 5.0 g/dL LAB CHEMISTRY METHOD 08/25/2024 10:13 AM EDT [facility] Total Bilirubin 0.3 0.0 - 1.4 mg/dL LAB CHEMISTRY METHOD 08/25/2024 10:13 AM EDT [facility] Blood Venous blood specimen / Unknown Venipuncture / Unknown 08/25/2024 9:00 AM EDT 08/25/2024 9:41 AM EDT us Vaibhav Ozuna MD LAB BLOOD ORDERABLES Final Re sult [facility] [address] [place] [address], * [place] Duplex Abdomen/Pelvis/Retro Limited (07/02/2024 6:56 [...] * Lavender tube (07/02/2024 10:20 AM EDT) [facility] Extra Tube Hold for add-ons. 07/02/2024 12:01 PM EDT [facility] Comment:Auto resulted. Blood Venous blood specimen / Unknown Venipuncture / Unknown 07/02/2024 10:20 AM EDT 07/02/2024 10:24 AM EDT us Sergo Wallis MD LAB BLOOD ORDERABLES Final Re sult [facility] [address] [place] [address], * (ABNORMAL) Basic metabolic panel (07/02/2024 10:20 AM EDT) Only the most recent of2 resultswithin the time period is included. [facility] Sodium 130(L) 133 - 145 mmol/L LAB CHEMISTRY METHOD 07/02/2024 11:[address] [facility] Potassium 4.7 3.5 - 5.5 mmol/L LAB CHEMISTRY METHOD 07/02/2024 11:[address] [facility] Chloride 94(L) 96 - 110 mmol/L LAB CHEMISTRY METHOD 07/02/2024 11:[address] [facility] CO2 29 21 - 32 mmol/L LAB CHEMISTRY METHOD 07/02/2024 11:[address] [facility] Anion Gap 7 3 - 11 LAB CHEMISTRY METHOD 07/02/2024 11:[address] [facility] Glucose 231(H) 70 - 100 mg/dL LAB CHEMISTRY METHOD 07/02/2024 11:[address] [facility] BUN 16 5 - 25 mg/dL LAB CHEMISTRY METHOD 07/02/2024 11:[address] [facility] Creatinine 5.36(H) 0.50 - 1.10 mg/dL LAB CHEMISTRY METHOD 07/02/2024 11:07 AM EDT [facility] eGFR 9(L) >=60 mL/min/1. 73m2 LAB CHEMISTRY METHOD 07/02/2024 11:07 AM EDT [facility] Comment:Calculation based on the Chronic Kidney Disease Epidemiology Collaboration (CKD-EPI) equation refit without adjustment for race. BUN/Creatinine Ratio 3.0 LAB CHEMISTRY METHOD 07/02/2024 11:07 AM EDT [facility] Calcium 9.6 8.5 - 10.5 mg/dL LAB CHEMISTRY METHOD 07/02/2024 11:07 AM EDT [facility] Blood Venous blood specimen / Unknown Venipuncture / Unknown 07/02/2024 10:20 AM EDT 07/02/2024 10:23 AM EDT us Myrna PARKER LAB BLOOD ORDERABLES Final R esult [facility] [address] [place] [address], * EGD Anesthesia - MAC; [facility] END[facility]COPY (07/02/2024 7:46 AM EDT) Anatomical Region Laterality Modality Other 07/02/2024 7:31 AM EDT Impressions 07/02/2024 7:54 AM EDT - Gastric bypass with a normal-sized pouch and intact staple line. Gastrojejunal anastomosis characterized by erosion. - Gastritis. Biopsied. Recommendation: - Resume previous diet. - Continue present medications. - Await pathology results. Narrative 07/02/2024 7:54 AM EDT [facility] GI Patient Name: Meliza Perry Procedure [...] characterized by erosion. This was traversed. The pjejo-px-ougxkqe limb was characterized by ulceration. The encawpos-pp-kkksmod limb was not examined as it could [...] multiple biopsies. Procedure Code(s): --- Professional --- 97521, Esophagogastroduodenoscopy, flexible, transoral; with biopsy, single or multiple Diagnosis Code(s): --- Professional --- K29.70, Gastritis, unspecified, without bleeding K28.9, Gastrojejunal ulcer, unspecified as acute or chronic, without hemorrhage or perforation CPT copyright 2020 [employer]. All rights reserved. The codes documented in this report are preliminary and upon personal service workers review may be revised to meet current compliance requirements. MD Ari Collado MD 07/02/2024 7:54:37 AM This report has been signed electronically.Ari Davis MD Number of Addenda: 0 Note Initiated On: 07/02/2024 7:31 AM Scope In: Scope Out: Endoscopy Department at [facility] - [address] [place] [phone] Procedure Note Ari Davis MD - 07/02/2024 [facility] GI Patient Name: Meliza Perry Procedure [...] characterized by erosion. This was traversed. The epcpr-wp-hlnildx limb was characterized byulceration. The ngsbieph-no-zmllehl limb was not examined as it could [...] take multiplebiopsies. Procedure Code(s): --- Professional --- 41682, Esophagogastroduodenoscopy, flexible, transoral; with biopsy, single or multiple Diagnosis Code(s): --- Professional --- K29.70, Gastritis, unspecified, without bleeding K28.9, Gastrojejunal ulcer, unspecified as acute or chronic, without hemorrhage or perforation CPT copyright 2020 [employer]. All rights reserved. The codes documented in this report are preliminary and upon personal service workers reviewmay be revised to meet current compliance requirements. MD Ari Collado MD 07/02/2024 7:54:37 AM This report has been signed electronically.Ari Davis MD Number of Addenda: 0 Note Initiated On: 07/02/2024 7:31 AM Scope In: Scope Out: Endoscopy Department at [facility] - [address] [place] [phone] IMPRESSION: - Gastric bypass with a normal-sized [...] type gastritis identified. 07/06/2024 12:39 PM EDT [facility] Gross Description A. Stomach, gastric biopsies: [...] survive processing. dvb/DG 07/06/2024 12:39 PM EDT [facility] [facility] Disclaimer Unless otherwise specified, all tissue is 10% NB formalin fixed and paraffin embedded. 07/06/2024 12:39 PM EDT [facility] Tissue Stomach structure / Unknown 07/02/2024 7:42 AM EDT 07/02/2024 9:56 AM EDT Ari Davis MD LAB PATHOLOGY ORDERABLES Final Result Performing Organization Address City/[facility]/ZIP Co de Phone Number [facility] [address] [place] [address], * Hepatitis B surface antigen with reflex to confirmation (07/01/2024 5:19 AM EDT) Hepatitis B Surface Ag Negative Negative LAB CHEMISTRY METHOD 07/01/2024 10:19 AM EDT [facility] Blood Venous blood specimen / Unknown Venipuncture / Unknown 07/01/2024 5:19 AM EDT 07/01/2024 6:17 AM EDT Narrative [facility] - 07/01/2024 10:19 AM EDT Over the counter supplements containing high doses of biotin may interfere with this assay. If interference is suspected, patients shoud be retested after refraining from biotin supplements for 72 hours. Sergo Wallis MD LAB BLOOD ORDERABLES Final Re sult Performing Organization Address City/[facility]/ZIP Co de Phone Number [facility] [address] [place] [address], * (ABNORMAL) Nicotine and cotinine (07/01/2024 5:19 AM EDT) Nicotine <2.0 <2.0 ng/mL 07/07/2024 4:39 AM EDT [facility] Cotinine 243.4(H) <2.0 ng/mL 07/07/2024 4:39 AM EDT [facility] Comment: Additional Reference Ranges: Active Tobacco Passive Abstinence User Exposure 2 Weeks and more Nicotine 30 - 50 ng/mL <2 ng/mL <2 ng/mL Cotinine 200 - 800 ng/mL <8 ng/mL <2 ng/mL Reference Ranges from: Clin. Chem.; 48:8993-0730 (2002) Direct any interpretive questions to the toxicology laboratory. This is for medical use only, it is not intended for forensic use. If applicable, any drug confirmation testing reported here was developed and the performance characteristics determined by [facility]. This confirmation testing has not been cleared or approved by the FDA. The laboratory is regulated under CLIA as qualified to perform high-complexity testing. This test is used for patient testing purposes. It should not be regarded as investigational or for research. Test performed at [facility], [address] , [place] [address] Kim Castelan MD, PhD - [employer] Blood Venous blood specimen / Unknown Venipuncture / Unknown 07/01/2024 5:19 AM EDT 07/01/2024 6:17 AM EDT Angela PARKER LAB BLOOD ORDERABLES Final Resu lt [facility] [address] [place] [address] * (ABNORMAL) Iron and TIBC (07/01/2024 5:19 AM EDT) Iron 64 40 - 150 mcg/dL LAB CHEMISTRY METHOD 07/01/2024 7:34 PM EDT [facility] TIBC 191(L) 250 - 450 mcg/dL LAB CHEMISTRY METHOD 07/01/2024 7:34 PM EDT [facility] Iron Saturation 34 15 - 50 % LAB CHEMISTRY METHOD 07/01/2024 7:34 PM EDT [facility] Blood Venous blood specimen / Unknown Venipuncture / Unknown 07/01/2024 5:19 AM EDT 07/01/2024 6:17 AM EDT us Sergo Wallis MD LAB BLOOD ORDERABLES Final Re sult Performing Organization Address [facility]/ZIP Co de Phone Number [facility] [address] [place] [address], [place] [phone] * (ABNORMAL) Hepatitis B surface antibody quantitative (07/01/2024 5:19 AM EDT) Pathologist [facility] Hepatitis B Surface Ab Positive (A) Negative LAB CHEMISTRY METHOD 07/01/2024 8:54 AM EDT [facility] Hepatitis B Surface Ab Quantitative >1,000.0 mIU/mL LAB CHEMISTRY METHOD 07/01/2024 8:54 AM EDT [facility] Blood Venous blood specimen / Unknown Venipuncture / Unknown 07/01/2024 5:19 AM EDT 07/01/2024 6:17 AM EDT Narrative [facility] - 07/01/2024 8:54 AM EDT >=10 mIU/mL is considered to be consistent with immunity. us Sergo Wallis MD LAB BLOOD ORDERABLES Final Re sult Performing Organization Address [facility]/ZIP Ca de Phone Number [facility] [address] [place] [address], [place] [phone] * (ABNORMAL) Complete blood count (07/01/2024 5:19 AM EDT) Pathologist [facility] WBC 6.1 4.8 - 10.8 K/[facility] LAB HEMETOLOGY METHOD 07/01/2024 6:54 AM EDT [facility] RBC 3.50(L) 3.80 - 4.80 M/mcL LAB HEMETOLOGY METHOD 07/01/2024 6:54 AM EDT [facility] Hemoglobin 10.9(L) 11.5 - 16.0 g/dL LAB HEMETOLOGY METHOD 07/01/2024 6:54 AM EDT [facility] Hematocrit 34.6(L) 35.0 - 47.0 % LAB HEMETOLOGY METHOD 07/01/2024 6:54 AM EDT [facility] MCV 97.7 79.0 - 98.0 FL LAB HEMETOLOGY METHOD 07/01/2024 6:54 AM EDT [facility] MCH 30.8 27.0 - 32.0 pcg LAB HEMETOLOGY METHOD 07/01/2024 6:54 AM EDT [facility] MCHC 31.5(L) 32.0 - 37.0 g/dL LAB HEMETOLOGY METHOD 07/01/2024 6:54 AM EDT [facility] RDW 13.6 11.0 - 15.0 % LAB HEMETOLOGY METHOD 07/01/2024 6:54 AM EDT [facility] Platelets 212 130 - 400 K/mcL LAB HEMETOLOGY METHOD 07/01/2024 6:54 AM EDT [facility] MPV 10.5 7.0 - 11.0 FL LAB HEMETOLOGY METHOD 07/01/2024 6:54 AM EDT [facility] NRBC 0.0 <1.0 % LAB HEMETOLOGY METHOD 07/01/2024 6:54 AM EDT [facility] NRBC Absolute 0.00 <0.10 K/mcL LAB HEMETOLOGY METHOD 07/01/2024 6:54 AM EDT [facility] Blood Venous blood specimen / Unknown Venipuncture / Unknown 07/01/2024 5:19 AM EDT 07/01/2024 6:18 AM EDT us Kirby Fulton MD LAB BLOOD ORDERABLES Final Res ult [facility] [address] [place] [address], [place] [phone] * Vitamin B12 (07/01/2024 5:19 AM EDT) [facility] Vitamin B-12 447 250 - 900 pcg/mL LAB CHEMISTRY METHOD 07/01/2024 7:32 PM EDT [facility] Blood Venous blood specimen / Unknown Venipuncture / Unknown 07/01/2024 5:19 AM EDT 07/01/2024 6:17 AM EDT Sergo Wallis MD LAB BLOOD ORDERABLES Final Re sult Performing Organization Address [facility]/ZIP Co de Phone Number [facility] [address] [place] [address], [place] [phone] * (ABNORMAL) Hemoglobin and hematocrit (06/30/2024 11:34 PM EDT) Only the most recent of2 resultswithin the time period is included. [facility] Hemoglobin 11.3(L) 11.5 - 16.0 g/dL LAB HEMETOLOGY METHOD 06/30/2024 11:49 PM EDT [facility] Hematocrit 36.0 35.0 - 47.0 % LAB HEMETOLOGY METHOD 06/30/2024 11:49 PM EDT [facility] Blood Venous blood specimen / Unknown Venipuncture / Unknown 06/30/2024 11:34 PM EDT 06/30/2024 11:43 PM EDT us Lenka PARKER LAB BLOOD ORDERABLES Fi nal Result [facility] [address] [place] [address], [place] [phone] * CT Abdomen Pelvis wo Contrast (06/30/2024 [...] Signed Date: 06/30/2024 10:21 ET Workstation ID: [id number] Transcribed By: Self Edit Transcribed Date: 06/30/2024 10:10 ET Narrative 06/30/2024 10:21 AM EDT INDICATION: flank pain TECHNIQUE: CT scan of the abdomen and pelvis obtained utilizing the renal stone protocol therefore no intravenous or oral contrast was administered. Scanner: MySongToYouer 128 slice VCT Dose reduction technique: ASIR [...] no intravenous or oral contrast wasadministered. Scanner: MySongToYouer 128 slice VCT Dose reduction technique: ASIR [...] Signed Date: 06/30/2024 10:21 ET Workstation ID: [id number] Transcribed By: Self Edit Transcribed Date: 06/30/2024 10:10 ET Claude Lucia MD IMG CT PROCEDURES Final Result * Protime-INR (06/30/2024 8:34 AM EDT) Protime 11.4 10.6 - 13.9 sec LAB COAGULATION METHOD 06/30/2024 9:18 AM EDT [facility] INR 0.9 LAB COAGULATION METHOD 06/30/2024 9:18 AM EDT [facility] Blood Venous blood specimen / Unknown Venipuncture / Unknown 06/30/2024 8:34 AM EDT 06/30/2024 9:02 AM EDT us Claude Lucia MD LAB BLOOD ORDERABLES Final Resu lt [facility] [address] [place] [address], [place] [phone] from Last 3 Months Insurance MEDICAID - [place] MEDICARE Advance Directives Documents on File Type Date Recorded Patient Dough Sheeter Expl anation Health Care Decision (hx) 07/24/2023 [...] currently active code status orders. Care Teams Glove Brusher Relationship Specialty Start Date End Date Sam Lynch MD [address] [place] [address] [address] [place], [place] PCP - General 10/25/22
[2024-09-01 14:16] VITALS: BMI 36.9
--- NOTE | ~2024-09-03 | FL_ITS ---
EXAMINATION: FL GUIDANCE ONLY HISTORY: L4 L5 TRANSFORAMINAL EPIDURAL STEROID INJECTION COMPARISON: None available. TECHNIQUE: Fluoroscopy time: 18.4 seconds. Cumulative Dose: 4.4857 mGy. DAP: 1.34 mGym2 Images: 1. FINDINGS: A single fluoroscopic spot film of the lumbar spine in the AP projection demonstrates a needle and contrast material inferior to the right L4 pedicle. FL/FL guidance in OR IMPRESSION: Fluoroscopy during procedure. Please see procedure report for additional information. Electronically signed by: Brandan Wei MD 09/03/2024 02:26 PM EDT
[2024-09-03 10:53] VITALS: BP 148/83; PULSE 77; RESP 20; TEMP 36.4; O2SAT 95; BMI 22.3
[2024-09-03] MEDS: Lactated Ringers 1,000 ML 50 ML IVCONT (11:23)
--- NOTE | 2024-09-03 13:31 | MHC.SHP ---
Pre-Procedural Eval Section A - 24 Hr Update-Section A only Date of Service: 09/03/24 The patient is an INPATIENT: No Changes since office visit: Yes Patient answered all questions The patient has been examined within 24 hours of the surgical procedure. 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 Relevant Family History (Specify if Yes): No Relevant Social History: Other (specify) Present Medications: None Medical History: Significant History History of Previous Operations: No relevant previous surgery Allergies: Allergies Allergy/AdvReac Type Severity Reaction Status Date / Time ibuprofen Allergy Severe Unknown Verified 08/17/24 11:07 nifedipine Allergy Intermediate hives, leg Verified 08/17/24 11:07 edema Review of Systems Sugical H&P ROS: Negative: Cardiovascular, Respiratory, Neurological, Psychiatric, Hem-Onc, Allergic/Immunologic, Gastrointestinal, Musculoskeletal, Integumentary, Endocrine and Eyes/Ears/Nose/Throat and Yes, Specify: Constitution (Morbid obesity) and Genitourinary (ESRD on HD) Exam Surgical H&P Exam: Normal: HEENT, Normal: Heart, Normal: Lungs, Normal: Skin and Normal: Neurological and Significant Findings: Extremities (AVF left upper extremity) and Significant Findings: Abdomen (enarged 2 to i/a and s/q fat) Plan Diagnosis/Plan: Unchanged I have reviewed the history and physical and performed a pertinent physical examination on my patient. No changes have occurred unless specified. Time Spent With Patient Time: Total time managing care of this patient today ____ minutes.
[2024-09-03 14:14] VITALS: BP 148/77; PULSE 76; RESP 16; TEMP 36.8; O2SAT 99
--- NOTE | 2024-09-03 14:18 | P.BOP_ITS ---
Brief Operative Note Date of Service: 09/27/21 Pre-op diagnosis: Radiculopathy lumbar Post-op diagnosis: same Procedure: Transforaminal epidural steroid injection L4-5 on the right Surgeon: Mannie Raymond MD Anesthesia: MAC Was an Accounts Payable Administrator used for this Procedure?: No Estimated blood loss (mL): 0 Pathology: none sent Condition: stable Disposition: PACU
--- NOTE | 2024-09-03 14:19 | P.OP_ITS ---
Operative Note Operative Note Date of Service: 09/03/24 Narrative: Transforaminal epidural steroid injection L4-5 on the right ? Informed consent was explained to the patient. All questions were explained and? answered.? The patient was taken inside the operating room where the patient was positioned prone on the operating table with the pillow under her abdomen.. Time-out was performed delineating correct site, side, the nature of the procedure, patient's allergy, preoperative antibiotic if needed.? All operating room staff was participating in OR time-out procedure. ? The lower back was prepped with ChloraPrep and draped with sterile towels.? C- arm was brought over the operating field and square picture of L4 and L5 vertebrae? were delineated on the screen.? Sq image of L4 vertebra was demonstrated on the screen. Tilting C-arm ipsilateral to the right 30 degrees most prominent picture of the right pedicle of L4 was demonstrated on the screen. The 0.3 mm below the lowest point of pedicle projection to the skin was injected with local anesthetic lidocaine 1%. After that 22 gauge 5 in spinal needle was inserted through the skin and advanced to were the L4-5 foramina on the right in tunnel vision fashion under anterior posterior and oblique view. When on sq image the tip of the needle entered silhouette of the spinal column and it was not advanced more than the line crossing the pedicle in the center injection of the contrast performed demonstrating epidural spread of the contrast. After that injection of the treatment solution of the lidocaine 1% 3 mL mixed with Kenalog 40 mg was performed into the needle. Patient reported minimal paresthesia on the injection. Upon completion of the injection needle was withdrawn and sterile Band-Aid was applied. The patient tolerated the procedure well.
[2024-09-03 14:30] VITALS: BP 159/87; PULSE 82; RESP 20; TEMP 36.9; O2SAT 100
== END 2024-09-03 15:02 | disposition home or self-care (01) ==
PROVIDERS: PCP Internal Medicine; Visit Provider Anesthesiology
PROC: (CPT 64483; principal; 2024-09-03 12:30)
DX: M54.16 Radiculopathy, lumbar region (principal); M51.26 Other intervertebral disc displacement, lumbar region; M48.00 Spinal stenosis, site unspecified; I12.0 Hypertensive chronic kidney disease with stage 5 chronic kidney disease or end stage renal disease; N18.6 End stage renal disease; Z99.2 Dependence on renal dialysis; N15.9 Renal tubulo-interstitial disease, unspecified; E78.5 Hyperlipidemia, unspecified; F33.1 Major depressive disorder, recurrent, moderate; Z79.899 Other long term (current) drug therapy; Z88.6 Allergy status to analgesic agent; Z88.8 Allergy status to other drugs, medicaments and biological substances; Z98.84 Bariatric surgery status; Z98.890 Other specified postprocedural states; Z87.891 Personal history of nicotine dependence
CPT/HCPCS: 64483; J2003; J2250; J2795; J3301; Q9967

== ENCOUNTER → 2024-09-03 10:40 | Outpatient (BNV) | payer MEDICARE, MEDICAID, SELFPAY | PROVIDERS: PCP Internal Medicine; Visit Provider Anesthesiology | DX: M54.16 Radiculopathy, lumbar region (principal) | CPT/HCPCS: 64483 ==

== ENCOUNTER 2024-09-20 15:31 | Inpatient (IN) | payer MEDICARE, MEDICAID, SELFPAY ==
[2024-09-20 15:58] VITALS: BP 198/125; BP 238/134; PULSE 101; PULSE 91; RESP 15; TEMP 37.2; O2SAT 97; O2SAT 98; BMI 23.6
--- NOTE | 2024-09-20 16:18 | ED_ITS ---
HPI - Abdominal Pain General Chief Complaint: General Medical Stated Complaint: N/V,HOOD,BLOODY BM PER EMS Time Seen by Provider: 09/20/24 16:04 History of Present Illness ED Provider: AVIVA HPI narrative: 54 f End-stage renal disease on hemodialysis (MWF), GERD, hemorrhoids, fibromyalgia, Chronic low back pain, diverticulosis, gastric sleeve surgery, s/p revision of gastric bypass at [facility] and essential hypertension the patient presents with severe epigastric pain coffee ground emesis recurrent. She has marginal ulcer from gastric bypass surgery. She missed dialysis last Friday and today but did go Friday. She does denies chest pain difficulty breathing hemoptysis leg swelling no abdominal trauma. She endorses bright red blood in the stool as well. Related Data Home Medications ?Medication ?Instructions ?Recorded ?Confirmed ferrous sulfate 325 mg (65 mg 325 mg PO DAILY 05/11/20 09/20/24 iron) tablet,delayed release cyanocobalamin (vitamin B-12) 1,000 mcg PO DAILY 10/1709/20/24 1,000 mcg tablet midodrine 5 mg tablet 5 mg PO DAILY PRN Hypotensio n 03/25/23 09/20/24 acetaminophen 500 mg capsule 1,000 mg PO Q8H PRN Pain 08/10/23 09/20/24 (Mapap (acetaminophen)) fluticasone propionate 50 1 spray intranasal DAILY PRN 08/10/23 09/20/24 mcg/actuation nasal Allergy Symptoms spray,suspension ztesewis-irslqvlz-jpqz 45 mg-folic 1 cap PO DAILY 07/1309/20/24 acid 800 mcg-vit K 120 mcg capsule (Bariatric Multivitamins) parenteral amino acid 15% no.5 15 0.5 ea IV MOWEFR@090 0 08/10/23 09/20/24 % combination no.5 intravenous solution (Clinisol SF) zinc acetate 50 mg (zinc) capsule 100 mg PO DAILY 11/0409/20/24 ergocalciferol (vitamin D2) 1,250 1,250 mcg PO PLEITEZ@0900 06/04/24 09/20/24 mcg (50,000 unit) capsule (Vitamin D2) meclizine 12.5 mg tablet 12.5 mg PO TID PRN Nausea An d 06/04/24 09/20/24 Vomiting omeprazole 40 mg capsule,delayed 40 mg PO BID@0630,163 0 06/04/24 09/20/24 release clotrimazole-betamethasone 1 1 appl topical DAILY PRN Rash 09/20/24 09/20/24 %-0.05 % topical cream Previous Rx's ?Medication ?Instructions ?Recorded thiamine HCl (vitamin B1) 100 mg 100 mg PO DAILY 90 da ys #90 tabs 09/27/23 tablet vitamin A 2,400 mcg capsule 2,400 mcg PO DAILY 90 days #90 caps 02/05/24 carvedilol 6.25 mg tablet 6.25 mg PO BID 90 days #180 tabs 04/28/24 gabapentin 400 mg capsule 400 mg PO BID 90 days #180 c aps 04/28/24 pyridoxine (vitamin B6) 50 mg 50 mg PO DAILY 90 days # 90 tabs 04/28/24 tablet ondansetron 4 mg disintegrating 4 mg PO Q8H PRN nausea and 05/11/24 tablet vomiting #10 tabs sucralfate 100 mg/mL oral 10 ml PO BID 14 days #280 mL 08/12/24 suspension citalopram 20 mg tablet 20 mg PO DAILY 90 days #90 t abs 09/08/24 melatonin 10 mg capsule 20 mg (2 x 10 mg) PO BEDTIME #90 09/20/24 caps Allergies Allergy/AdvReac Type Severity Reaction Status Date / Time ibuprofen Allergy Severe Unknown Verified 09/20/24 16:01 nifedipine Allergy Intermediate hives, leg Verified 09/20/24 16:01 edema PMFSH Past Medical History Medical History (Updated 09/21/24 @ 01:19 by Faraz Warner MD) End stage chronic kidney disease ESRD on dialysis Marginal ulcer ESRD (end stage renal disease) Smoker Moderate major depression Physical exam Spondylosis without myelopathy or radiculopathy, lumbar region Spinal stenosis 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 Lumbar back pain with radiculopathy affecting left lower extremity Physical exam (~02/14/21) Peritoneal dialysis catheter in place Polyarthralgia Dyslipidemia Family history of ovarian cancer Abnormal mammogram of right breast Angina pectoris syndrome Chest pain Constipation Nephrosclerosis Renal interstitial fibrosis Obesity (BMI 30-39.9) Back pain GERD (gastroesophageal reflux disease) History of headache HTN (hypertension) Surgical History History of sleeve gastrectomy S/P arteriovenous (AV) graft placement Fistula Hx of colonoscopy Hx of hysterectomy Hx of tubal ligation History of endometrial ablation Family History Family History Father Asthma Mother Asthma Hypertension Ovarian cancer Maternal Grandfather Myocardial infarction Paternal Grandmother Stroke Social History Social History Household Members: Children Household Members Other:: 30 year old special needs son Housing: Apartment Are you a primary memory care program resident to a significant other at home: No Do you presently have visiting nurse or other home services: Yes Alcohol intake: never Comment: low fall risk Patient Tobacco Use Status: Former Tobacco user Tobacco use type: Cigarette Cigarette Packs Per Day: 1 Cigarettes Per Day: 1 Years Smoked: 10+ e-Cigarette/Vaping Use: Never Used Second Hand Smoke Exposure: No Substance Use Type: Caffiene Have you been hit, kicked, punched, or otherwise hurt by someone within the past year? If so, by whom?: No Do you feel safe in your current relationship?: No Is there a partner from a previous relationship who is making you feel unsafe now?: No Are you made to feel afraid or neglected: No Advance Directives: Yes Advance Directives on File: Yes Advance Directives Date on File: 04/27/20 Do you have a plan to hurt others: No Plan Recently lost weight without trying: No How much weight loss: Not applicable Eating poorly because of decreased appetite: No Nutrition screen score: 0 Nutrition Risks: No Nutritional Risk Patient : No service: No Current occupational status: employed Cognitive needs: No Hearing needs: No Vision needs: Yes (reading glasses) Physical Exam ED Exam Exam: EXAM: Gen: Awake and severe pain writhing in the bed with coffee ground emesis in an emesis bag Head: Atraumatic Eyes: Anicteric, Normal conjunctiva. ENT: Moist mucosa, no pallor. ? Neck: Supple. Skin: ?No observable rash or bruising on exposed or examined skin Respiratory: Breathing comfortably, No distress.Clear to auscultation bilaterally, symmetric chest expansion, No wheeze, rales, ronchi. Cardiovascular: Regular rate and rhythm. No murmurs or rub. Well perfused periphery, warm extremities. No edema. ? Abdominal: Exam limited due to severe tenderness she pushes my hand away severe epigastric tenderness with guarding locally. No rigidity : No flank tenderness. Neuro: Alert. Gross movement of all extremities intact. ? Psych: Calm. Cooperative. MSK: No grossly visible deformity. Vital signs: See flowsheet Vital Signs: Vital Signs - 24 hr 09/20/24 15:58 09/20/24 16:49 09/20/24 16:53 Temperature 98.9 F Pulse Rate 101 H 97 Respiratory Rate 15 22 H 20 Blood Pressure 238/134 H 185/94 H Pulse Oximetry 97 96 Oxygen Delivery Method Room Air Room Air 09/20/24 18:25 Temperature Pulse Rate 100 Respiratory Rate 16 Blood Pressure 162/77 H Pulse Oximetry 93 Oxygen Delivery Method Room Air BMI result Body Mass Index 23.6 Medical Decision Making Medical Decision Making MDM Narrative: Medical Decision Makin-year-old female arrives in severe pain with coffee ground emesis and bread red blood per rectum. Abdomen significantly tender though limited due to patient's uncooperative 80 due to her pain level. Severe hypertension probably pain related could be fluid overload. She does not have chest pain or focal neurologic complaints to suggest aortic dissection though this was considered. We will reassess after analgesic. Patient is likely has upper GI bleed from marginal ulcer which is recurrent. will likely benefit from scope. Pending lab work analgesic and reassessment. __ Later labs revealed the patient may have actually missed 2 sessions of dialysis. Hyperkalemia with peaked T-waves. We will discuss the case with Nephrology the patient goes to Dr. Wang so I have discussed the case with their colleague who is on-call Preliminary Favored Differential Diagnosis: PUD, ruptured viscus, pancreatitis, lower GI bleed, among additional considered etiologies Testing Interpreted Independently: Labs with hyperkalemia. ECG sinus rhythm hyperkalemic changes mild peaking of the T-waves. Radiology or Lab testing Results Reviewed: Not Applicable Consults: Hospitalist, Nephrology on-call who has set up 2 hours of dialysis today, she sending in the dialysis nurse Independent Historians/External Chart Reviews: Not Applicable Social Determinants of Health Impacting MDM/Planning: Not Applicable Lab Data 09/20/24 16:55 09/20/24 16:55 Labs: Lab Results 09/20/24 09/20/24 Range/Units 16:55 18:17 WBC 13.5 H (4.8-10.8) X10*3/uL RBC 3.02 L (4.20-5.50) X10*6/uL Hgb 9.6 L (12.0-16.0) g/dl Hct 28.8 L (37.0-47.0) % MCV 95.4 (80.0-98.0) fL MCH 31.8 (27.0-33.0) pg MCHC 33.3 (31.0-35.0) g/dl RDW 15.4 (11.0-16.0) % Plt Count 265 (160-400) X10*3/uL MPV 9.5 (9.4-12.3) fL Immature Gran % (Auto) 0.7 H (0.0-0.4) % Neut % (Auto) 87.2 H (45-73) % Lymph % (Auto) 7.6 L (20-40) % [place] % (Auto) 3.9 (2-11) % Eos % (Auto) 0.3 (0-4) % Baso % (Auto) 0.3 (0-2) % Lymph # (Auto) 1.0 L (1.2-4.9) X10*3/uL [place] # (Auto) 0.5 (0.1-1.2) X10*3/uL Eos # (Auto) 0.0 (0.0-0.4) X10*3/uL Baso # (Auto) 0.0 (0.0-0.2) X10*3/uL Abs Immat Gran (auto) 0.09 H (0.00-0.03) X10*3/uL Absolute Neuts (auto) 11.7 H (2.0-8.3) x10*3/uL Absolute Nucleated RBC 0.000 (0.0-0.012) X10*3/uL Nucleated RBC % (auto) 0.0 (0.0-0.2) /100WBC Sodium 138 (135-145) mmol/L Potassium 6.0 H* D (3.3-5.1) mmol/L Chloride 108 (96-108) mmol/L Carbon Dioxide 19 L (22-29) mmol/L Anion Gap 17 (12-20) BUN 94 H (9-16) mg/dL Creatinine 6.29 H* (0.5-1.4) mg/dL Estim Creat Clear Calc 9.3 Estimated GFR 7 POC Glucose 123 H (60-115) mg/dL Random Glucose 144 H (60-115) mg/dL Calcium 8.9 (8.4-10.2) mg/dL Total Bilirubin 0.5 (0.0-1.0) mg/dL AST 14 (5-31) U/L ALT 6 (0-31) U/L Alkaline Phosphatase 142 H (39-117) U/L Total Protein 6.0 L (6.5-8.0) g/dL Albumin 3.4 L (3.5-5.0) g/dL Medications Administered Generic Name Dose Route Start Last Admin Trade Name Freroosevelt PRN Reason Stop Dose Admin Sodium Chloride 3 ml 09/21/24 00:00 09/20/24 23:11 0.9 % Sodium Chloride Flush 3 Ml Syringe IVFLUSH 3 ml QSHIFT GERARDO Administration Discontinued Medications Generic Name Dose Route Start Last Admin Trade Name Devanq PRN Reason Stop Dose Admin Dextrose 50 gm 09/20/24 17:44 09/20/24 18:18 Dextrose 50 % 25 Gm/50 Ml Syringe IVPUSH 09/20/24 17:45 50 gm ONCE ONE Administration Diphenhydramine HCl 25 mg 09/20/24 22:47 09/20/24 23:10 Diphenhydramine Hcl 25 Mg Capsule PO 09/20/24 22:48 25 mg ONCE ONE Administration Hydromorphone HCl 1 mg 09/20/24 16:19 09/20/24 16:49 Hydromorphone Hcl 1 Mg/Ml Syringe IVPUSH 09/20/24 16:20 1 mg ONCE ONE Administration Protocol Sodium Chloride 250 mls @ 999 mls/hr 09/20/24 16:30 09/20/24 18:55 Ns IV 09/20/24 16:45 Infused .Q16M GERARDO Infusion Calcium Gluconate 1 gm in 50 mls @ 50 mls/hr 09/20/24 17:44 09/20/24 18:19 Calcium Gluconate IV 09/20/24 18:43 50 mls/hr ONCE ONE Administration Insulin Human Regular 5 unit 09/20/24 17:44 09/20/24 18:16 Insulin Regular, Human 100 Unit/Ml 10 Ml Vial IVPUSH 09/20/24 17:45 5 unit ONCE ONE Administration Lidocaine HCl 15 ml 09/20/24 22:47 09/20/24 23:10 Lidocaine Hcl Viscous 2 % 15 Ml Solution MUCOUS MEM 09/20/24 22:48 15 ml ONCE ONE Administration Pantoprazole Sodium 80 mg 09/20/24 16:19 09/20/24 16:49 Pantoprazole Sodium 40 Mg/10 Ml Vial IVPUSH 09/20/24 16:20 80 mg ONCE ONE Administration Sodium Zirconium Cyclosilicate 10 gm 09/20/24 17:44 09/20/24 18:19 Sodium Zirconium Cyclosilicate 10 Gm Powd.Pack PO 09/20/24 17:45 10 gm ONCE ONE Administration Critical Care Time Critical Care Time Critical Care Time: Yes Total Critical Care Time: 100 Attestation: ED Critical Care: Authorized and Performed by: Faraz Warner MD Total critical care time: Approximately 100 Due to a high probability of clinically significant, life threatening deterioration, the patient required my highest level of preparedness to intervene emergently and I personally spent this critical care time directly and personally managing the patient. This critical care time included obtaining a history; examining the patient; pulse oximetry; ordering and review of studies; arranging urgent treatment with development of a management plan; evaluation of patient's response to treatment; frequent reassessment; and, discussions with other providers. This critical care time was performed to assess and manage the high probability of imminent, life-threatening deterioration that could result in multi-organ failure. It was exclusive of separately billable procedures and treating other patients and teaching time. Discharge Plan Discharge Clinical Impression: Acute hyperkalemia Patient Disposition: Admitted As Inpatient
--- NOTE | 2024-09-20 16:20 | ECG_ITS ---
Test Reason : ABD PAIN Blood Pressure : */* mmHG Vent. Rate : 93 BPM Atrial Rate : 93 BPM P-R Int : 122 ms QRS Dur : 72 ms QT Int : 368 ms P-R-T Axes : 69 38 56 degrees QTcB Int : 457 ms Normal sinus rhythm Possible Left atrial enlargement Nonspecific ST abnormality Abnormal ECG When compared with ECG of 17-Aug-2024 11:12, No significant change was found Referred By: Faraz Warner Electronically Signed By: Julio Ramirez
--- NOTE | 2024-09-20 16:36 | MHC.EDTECH ---
Attempted ekg however the machine is being used by other techs.
[2024-09-20 16:49] VITALS: RESP 22
[2024-09-20 16:53] VITALS: BP 185/94; PULSE 97; RESP 20; O2SAT 96
[2024-09-20 16:59] LABS: MANUAL DIFF FLAG NO
[2024-09-20 17:00] LABS: Hematocrit 28.8 % (37.0-47.0); Hemoglobin 9.6 g/dl (12.0-16.0); Imm Gran Abs Auto 0.09 X10*3/uL (0.00-0.03); Imm Gran Pct Auto 0.7 % (0.0-0.4); Lymphocytes Absolute Auto 1.0 X10*3/uL (1.2-4.9); Mean Corpuscular HGB Conc 33.3 g/dl (31.0-35.0); Mean Corpuscular Hemoglobin 31.8 pg (27.0-33.0); Mean Corpuscular Volume 95.4 fL (80.0-98.0); NRBC Abs Auto 0.000 X10*3/uL (0.0-0.012); NRBC Pct Auto 0.0 /100WBC (0.0-0.2); Platelet Count 265 X10*3/uL (160-400); Red Blood Count 3.02 X10*6/uL (4.20-5.50); White Blood Count 13.5 X10*3/uL (4.8-10.8)
[2024-09-20 17:26] LABS: Alanine Aminotransferase 6 U/L (0-31); Albumin Level 3.4 g/dL (3.5-5.0); Alkaline Phosphatase 142 U/L (39-117); Anion Gap 17 (12-20); Aspartate Amino Transferase 14 U/L (5-31); Blood Urea Nitrogen 94 mg/dL (9-16); Calcium 8.9 mg/dL (8.4-10.2); Carbon Dioxide 19 mmol/L (22-29); Chloride 108 mmol/L (96-108); Creatinine Clr Calc Pharmacy 9.3; Estimated Glomerular Filt Rate 7; Potassium 6.0 mmol/L (3.3-5.1); Sodium 138 mmol/L (135-145); Total Protein 6.0 g/dL (6.5-8.0)
[2024-09-20] MEDS: Calcium Gluconate/NaCl,Iso-Osm 1 GM/50 ML PLAST..BAG IV (18:19)
[2024-09-20 18:25] VITALS: BP 162/77; PULSE 100; RESP 16; O2SAT 93
--- NOTE | 2024-09-20 18:26 | W.PM.DNNEP ---
Subjective Subjective Date of Service: 09/20/24 This patient was seen during dialysis. Physical Exam Vital Signs: Vital Signs: Last Vital Signs Temp 98.9 F 09/20/24 15:58 Pulse 97 09/20/24 16:53 Resp 20 09/20/24 16:53 BP 185/94 H 09/20/24 16:53 Pulse Ox 96 09/20/24 16:53 O2 Del Method Room Air 09/20/24 16:53 BMI result Body Mass Index 23.6 Assessment & Plan Assessment and plan (1) End stage chronic kidney disease: Status: Acute Plan Missed dialysis today Potassium 6.2 BP 200s systolic plan: For 2 hour HD tonight 1K Bath Calcaium 2.5 Blood flow 400, Dialysate 600 Heparin free UF 2.5-3 Dialysis nurse informed Time Spent With Patient Time: Total time managing care of this patient today ____ minutes. Procedures Date of Service Date of Service: 09/20/24
[2024-09-20 18:31] LABS: Glucose, Whole Blood 123 mg/dL (60-115)
--- NOTE | 2024-09-20 18:55 | PC.NURSE ---
Dialysis nurse called this RN about pt coming up, however pt is not admitted at this time. ED MD made aware. Awaiting admit orders.
--- NOTE | 2024-09-20 19:41 | PM.IMHP ---
History of Present Illness Date of Service: 09/20/24 Chief Complaint: GI bleed This has a 54-year-old female with pertinent history of ESRD on hemodialysis Friday/Friday/Friday, recurrent upper GI bleed due to 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 Patient states she started having bright red blood in stool, multiple episodes on the day of presentation. Also possibly had 1 episode of coffee-ground emesis. Patient was having generalized abdominal discomfort which is now resolved. She does have history of recurrent GI bleed due to marginal ulcer from gastric bypass surgery. Patient states she has not taken her PPI because the pharmacy did not fill it. No fever, chills. Patient missed her dialysis session on the day of presentation and is complaining of headache. No chest pain, palpitations, changes in urinary habits. In the emergency department, patient's blood pressure found to be 238/184 and labs reveal potassium of 6. Nephrology was consulted from the ER for urgent dialysis. Patient was given temporizing measures and Lokelma for hyperkalemia and given IV Protonix. [facility] Medical History (Updated 09/20/24 @ 19:56 by Beto Gonsales MD) End stage chronic kidney disease ESRD on dialysis Marginal ulcer ESRD (end stage renal disease) Smoker Moderate major depression Physical exam Spondylosis without myelopathy or radiculopathy, lumbar region Spinal stenosis 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 Lumbar back pain with radiculopathy affecting left lower extremity Physical exam (~02/14/21) Peritoneal dialysis catheter in place Polyarthralgia Dyslipidemia Family history of ovarian cancer Abnormal mammogram of right breast Angina pectoris syndrome Chest pain Constipation Nephrosclerosis Renal interstitial fibrosis Obesity (BMI 30-39.9) Back pain GERD (gastroesophageal reflux disease) History of headache HTN (hypertension) Family History Father Asthma Mother Asthma Hypertension Ovarian cancer Maternal Grandfather Myocardial infarction Paternal Grandmother Stroke Surgical History History of sleeve gastrectomy S/P arteriovenous (AV) graft placement Fistula Hx of colonoscopy Hx of hysterectomy Hx of tubal ligation History of endometrial ablation Social History Household Members: Children Household Members Other:: 30 year old special needs son Housing: Apartment Are you a primary lawn care professional to a significant other at home: No Do you presently have visiting nurse or other home services: Yes Alcohol intake: never Comment: low fall risk Patient Tobacco Use Status: Never used Tobacco Tobacco use type: Cigarette Cigarette Packs Per Day: 1 Cigarettes Per Day: 1 Years Smoked: 10+ e-Cigarette/Vaping Use: Never Used Second Hand Smoke Exposure: No Substance Use Type: Caffiene Advance Directives: Yes Advance Directives on File: Yes Advance Directives Date on File: 04/27/20 service: No Current occupational status: employed Cognitive needs: No Hearing needs: No Vision needs: Yes (reading glasses) Meds Allergies Allergy/AdvReac Type Severity Reaction Status Date / Time ibuprofen Allergy Severe Unknown Verified 09/20/24 16:01 nifedipine Allergy Intermediate hives, leg Verified 09/20/24 16:01 edema Home Medications ?Medication ?Instructions ?Recorded ?Confirmed ?Last Taken ?Type ferrous sulfate 325 mg (65 mg 325 mg PO DAILY 05/11/20 09/20/24 09/16/24 History iron) tablet,delayed release cyanocobalamin (vitamin B-12) 1,000 mcg PO DAILY 10/17/20 09/20/24 09/16/24 History 1,000 mcg tablet midodrine 5 mg tablet 5 mg PO DAILY PRN Hypotension 03/25/23 09/20/24 05/18/24 History acetaminophen 500 mg capsule 1,000 mg PO Q8H PRN Pain 08/10/23 09/20/24 09/16/24 History (Mapap (acetaminophen)) fluticasone propionate 50 1 spray intranasal DAILY PRN 08/10/23 09/20/24 05/18/24 History mcg/actuation nasal Allergy Symptoms spray,suspension jatiilkq-rfdwiosy-rwls 45 mg-folic 1 cap PO DAILY 08/10/23 09/20/24 09/16/24 History acid 800 mcg-vit K 120 mcg capsule (Bariatric Multivitamins) parenteral amino acid 15% no.5 15 0.5 ea IV MOWEFR@0900 08/10/23 09/20/24 06/02/24 History % combination no.5 intravenous solution (Clinisol SF) zinc acetate 50 mg (zinc) capsule 100 mg PO DAILY 05/19/24 09/20/24 09/16/24 History ergocalciferol (vitamin D2) 1,250 1,250 mcg PO PLEITEZ@0900 06/04/24 09/20/24 09/16/24 History mcg (50,000 unit) capsule (Vitamin D2) meclizine 12.5 mg tablet 12.5 mg PO TID PRN Nausea And 06/04/24 09/20/24 06/04/24 History Vomiting omeprazole 40 mg capsule,delayed 40 mg PO BID@0630,1630 06/04/24 09/20/24 09/16/24 History release clotrimazole-betamethasone 1 1 appl topical DAILY PRN Rash 09/20/24 09/20/24 Unknown History %-0.05 % topical cream Physical Exam Vital Signs and Narrative: Vital Signs: Last Vital Signs Temp 98.9 F 09/20/24 15:58 Pulse 100 09/20/24 18:25 Resp 16 09/20/24 18:25 BP 162/77 H 09/20/24 18:25 Pulse Ox 93 09/20/24 18:25 O2 Del Method Room Air 09/20/24 18:25 BMI result Body Mass Index 23.6 Const: Other: Middle-aged female lying in bed in no distress Neck supple, no JVD Regular rate and rhythm, S1-S2 heard Regular breath sounds bilaterally, no wheezing or crackles appreciated Abdomen soft nontender, no guarding, no rigidity Patient is awake, alert and oriented to self, place, time and person ; no focal motor deficit Psych: Normal mood No pedal edema Results Labs 09/20/24 16:55 09/20/24 16:55 Labs: Laboratory Results - last 24 hr 09/20/24 09/20/24 16:55 18:17 MCV 95.4 MCH 31.8 MCHC 33.3 RDW 15.4 Plt Count 265 MPV 9.5 Immature Gran % (Auto) 0.7 H Neut % (Auto) 87.2 H Lymph % (Auto) 7.6 L [place] % (Auto) 3.9 Eos % (Auto) 0.3 Baso % (Auto) 0.3 Lymph # (Auto) 1.0 L [place] # (Auto) 0.5 Eos # (Auto) 0.0 Baso # (Auto) 0.0 Abs Immat Gran (auto) 0.09 H Absolute Neuts (auto) 11.7 H Absolute Nucleated RBC 0.000 Nucleated RBC % (auto) 0.0 Anion Gap 17 Estim Creat Clear Calc 9.3 Estimated GFR 7 POC Glucose 123 H Random Glucose 144 H Calcium 8.9 Total Bilirubin 0.5 AST 14 ALT 6 Alkaline Phosphatase 142 H Total Protein 6.0 L Albumin 3.4 L Assessment and Plan (1) Acute GI bleeding: Status: Acute (2) Hyperkalemia: Status: Acute (3) Hypertensive emergency: Status: Acute Plan This has a 54-year-old female with pertinent history of ESRD on hemodialysis Friday/Friday/Friday, recurrent upper GI bleed due to 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 #. Acute upper GI bleed, recurrent: Patient states she has not taken her PPI in a while. Will admit patient with IV Protonix. Consulted Gastroenterology, appreciate assistance. Closely monitor hemodynamics and hemoglobin/hematocrit. Will keep patient NPO #. Hypertensive emergency and Severe hyperkalemia due to missed hemodialysis in a patient with ESRD M/W/F: Nephrology consulted from the ER for urgent dialysis. Received temporizing measures and Lokelma. #. Mixed hyperlipidemia: On statin #. Mood disorder: Continue home mood stabilizers Med rec pending DVT prophylaxis: SCDs Full code. Discussed with patient at bedside Admit as inpatient and will require two night minimum hospital stay for emergent dialysis, evaluation of GI bleed, monitoring of hemodynamics and H&H (as above), which is not possible in a lesser acute setting. Specialist consult pending Quality Stroke Does the patient have a stroke diagnosis?: No VTE Prior VTE?: No VTE Risk Level:: Medical - moderate - high VTE Device Contraindication: N/A - Device Ordered VTE Drug Contraindication: Treatment Not Indicated
--- NOTE | 2024-09-20 19:48 | PHA.MEDREC ---
Addendum entered by Maegan Garcia RPh 09/20/24 20:40: REVIEWED BY PHARMACIST Original Note: Pharmacy Consult ? Medication Reconciliation Pharmacy has completed the medication reconciliation. Spoke radha patient to confirm med list. patient states she is no longer taking Clindamycin 1% lotion , Sevelamer 1,60 mg, and pantoprazole ( on omeprazole). Patient confirmed Clinisol SF 15% 0.5 mg IV Friday and Friday. Patient states she hasn't had any medications in 4 days.
[2024-09-20 20:07] LABS: INTERNATIONAL NORM RATIO 1.0 (0.9-1.1); Prothrombin Time 11.1 SEC (10.9-12.4)
[2024-09-20 20:10] LABS: Partial Thromboplastin Time 24.8 SEC (26.7-34.1)
[2024-09-20 22:43] VITALS: BMI 22.0
[2024-09-20 22:56] VITALS: BP 119/62; PULSE 108; RESP 20; TEMP 36.7; O2SAT 100
[2024-09-20] MEDS: Lidocaine HCl Viscous 2 % 15 ML SOLUTION MUCOUS MEM (23:10)
[2024-09-20] MEDS: 0.9 % Sodium Chloride Flush 3 ML SYRINGE IVFLUSH (23:11)
[2024-09-21 03:16] VITALS: BP 104/56; PULSE 94; RESP 20; TEMP 37.1; O2SAT 97
[2024-09-21 06:17] LABS: MANUAL DIFF FLAG NO
[2024-09-21 06:41] LABS: Hematocrit 23.8 % (37.0-47.0); Hemoglobin 7.9 g/dl (12.0-16.0); Imm Gran Abs Auto 0.04 X10*3/uL (0.00-0.03); Imm Gran Pct Auto 0.5 % (0.0-0.4); Lymphocytes Absolute Auto 2.0 X10*3/uL (1.2-4.9); Mean Corpuscular HGB Conc 33.2 g/dl (31.0-35.0); Mean Corpuscular Hemoglobin 30.7 pg (27.0-33.0); Mean Corpuscular Volume 92.6 fL (80.0-98.0); NRBC Abs Auto 0.000 X10*3/uL (0.0-0.012); NRBC Pct Auto 0.0 /100WBC (0.0-0.2); Platelet Count 222 X10*3/uL (160-400); Red Blood Count 2.57 X10*6/uL (4.20-5.50); White Blood Count 7.5 X10*3/uL (4.8-10.8)
[2024-09-21 07:20] LABS: Anion Gap 13 (12-20); Blood Urea Nitrogen 59 mg/dL (9-16); Calcium 8.6 mg/dL (8.4-10.2); Carbon Dioxide 27 mmol/L (22-29); Chloride 102 mmol/L (96-108); Creatinine Clr Calc Pharmacy 13.3; Estimated Glomerular Filt Rate 11; Potassium 4.4 mmol/L (3.3-5.1); Sodium 138 mmol/L (135-145)
[2024-09-21 07:48] VITALS: BP 134/74; PULSE 90; RESP 18; TEMP 36.5; O2SAT 97
--- NOTE | 2024-09-21 08:18 | P.PNIM_ITS ---
Subjective Subjective Date of Service: 09/21/24 Interval History: Patient had additional episode of bright red blood overnight Respiratory Respiratory: Reports no additional respiratory complaints Gastrointestinal Gastrointestinal: Reports hematochezia Genitourinary Genitourinary: Reports no additional female genitourinary complaints Physical Exam 2 Vital Signs: Vital Signs: Last Vital Signs Temp 97.7 F 09/21/24 07:48 Pulse 90 09/21/24 07:48 Resp 18 09/21/24 07:48 BP 134/74 09/21/24 07:48 Pulse Ox 97 09/21/24 07:48 O2 Del Method Room Air 09/21/24 07:48 BMI result Body Mass Index 22.0 Const: Other: Middle-aged female lying in bed in no distress Neck supple, no JVD Regular rate and rhythm, S1-S2 heard Regular breath sounds bilaterally, no wheezing or crackles appreciated Abdomen soft nontender, no guarding, no rigidity Patient is awake, alert and oriented to self, place, time and person ; no focal motor deficit Psych: Normal mood No pedal edema Objective Data Active Medications Acetaminophen (Acetaminophen 325 Mg Tablet) 650 mg PO Q6H PRN PRN Reason: Pain, Mild 1-3,fever,headache Calcium Carbonate (Calcium Carbonate 750 Mg Tab.Chew) 750 mg PO Q4H PRN PRN Reason: Heartburn Magnesium Hydroxide (Milk Of Magnesia 30 Ml Oral.Susp) 30 ml PO DAILY PRN PRN Reason: Constipation Melatonin (Melatonin 3 Mg Tablet) 6 mg PO BEDTIME PRN PRN Reason: Insomnia Ondansetron HCl (Ondansetron Hcl 4 Mg/2 Ml Vial) 4 mg IVPUSH Q8H PRN PRN Reason: Nausea and Vomiting Pantoprazole Sodium (Pantoprazole Sodium 40 Mg/10 Ml Vial) 40 mg IVPUSH BID@0630,1630 [facility] Last Admin: 09/21/24 05:59 Dose: 40 mg Documented By: TAMIKO Sodium Chloride (0.9 % Sodium Chloride Flush 3 Ml Syringe) 3 ml IVFLUSH QSHIFT [facility] Last Admin: 09/20/24 23:11 Dose: 3 ml Documented By: TAMIKO Labs 09/21/24 06:02 09/21/24 06:02 Labs: Laboratory Results - last 24 hr 09/20/24 09/20/24 09/20/24 16:55 18:17 19:57 MCV 95.4 MCH 31.8 MCHC 33.3 RDW 15.4 Plt Count 265 MPV 9.5 Immature Gran % (Auto) 0.7 H Neut % (Auto) 87.2 H Lymph % (Auto) 7.6 L [place] % (Auto) 3.9 Eos % (Auto) 0.3 Baso % (Auto) 0.3 Lymph # (Auto) 1.0 L [place] # (Auto) 0.5 Eos # (Auto) 0.0 Baso # (Auto) 0.0 Abs Immat Gran (auto) 0.09 H Absolute Neuts (auto) 11.7 H Absolute Nucleated RBC 0.000 Nucleated RBC % (auto) 0.0 PT 11.1 INR 1.0 APTT 24.8 L Anion Gap 17 Estim Creat Clear Calc 9.3 Estimated GFR 7 POC Glucose 123 H Random Glucose 144 H Calcium 8.9 Total Bilirubin 0.5 AST 14 ALT 6 Alkaline Phosphatase 142 H Total Protein 6.0 L Albumin 3.4 L 09/21/24 06:02 MCV 92.6 MCH 30.7 MCHC 33.2 RDW 14.9 Plt Count 222 MPV 9.9 Immature Gran % (Auto) 0.5 H Neut % (Auto) 63.4 Lymph % (Auto) 26.5 [place] % (Auto) 8.7 Eos % (Auto) 0.5 Baso % (Auto) 0.4 Lymph # (Auto) 2.0 [place] # (Auto) 0.7 Eos # (Auto) 0.0 Baso # (Auto) 0.0 Abs Immat Gran (auto) 0.04 H Absolute Neuts (auto) 4.7 Absolute Nucleated RBC 0.000 Nucleated RBC % (auto) 0.0 PT INR APTT Anion Gap 13 Estim Creat Clear Calc 13.3 Estimated GFR 11 POC Glucose Random Glucose 87 Calcium 8.6 Total Bilirubin AST ALT Alkaline Phosphatase Total Protein Albumin Assessment and Plan (1) Acute GI bleeding: Status: Acute Plan This has a 54-year-old female with pertinent history of ESRD on hemodialysis Friday/Friday/Friday, recurrent upper GI bleed due to 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 #. Acute upper GI bleed, recurrent: Patient states she has not taken her PPI in a while. Continue IV Protonix. Consulted Gastroenterology, appreciate assistance. Closely monitor hemodynamics and hemoglobin/hematocrit. Will keep patient NPO #. Hypertensive emergency and Severe hyperkalemia due to missed hemodialysis in a patient with ESRD M/W/F: Resolved with urgent dialysis. Nephrology on board #. Mixed hyperlipidemia: On statin #. Mood disorder: Continue home mood stabilizers Med rec pending DVT prophylaxis: SCDs Full code. Discussed with patient at bedside Admit as inpatient and will require two night minimum hospital stay for emergent dialysis, evaluation of GI bleed, monitoring of hemodynamics and H&H (as above), which is not possible in a lesser acute setting. Specialist consult pending Quality Stroke Does the patient have a stroke diagnosis?: No VTE Prior VTE?: No VTE Risk Level:: Medical - moderate - high VTE Device Contraindication: N/A - Device Ordered VTE Drug Contraindication: Treatment Not Indicated
[2024-09-21] MEDS: 0.9 % Sodium Chloride Flush 3 ML SYRINGE IVFLUSH ×3 (08:45→20:34)
[2024-09-21 12:00] VITALS: BP 112/56; PULSE 86; RESP 18; TEMP 36.8; O2SAT 96
--- NOTE | 2024-09-21 12:44 | MHC.CM.PN ---
IMM 09/21/24, Pt. lives with her son, he has special needs. She has EP SPECIALIST services through [facility], 28 hrs. per week. She uses a cane. She goes to MWF at [facility]. PCP confirmed: Rozina Steiner. HCP on file and confirmed: Tess. Sister to transport home at DC, DCP: home, resume EP SPECIALIST services. CM to follow for DC needs.
--- NOTE | 2024-09-21 15:12 | P.CNGI_ITS ---
History of Present Illness Data of Consult Service Date: 09/21/24 Requesting physician: Beto Gonsales Primary Care Provider: Rozina Lang MD HPI Reason for consult: GIB 54 year old F with hx of end-stage renal disease on hemodialysis (MWF), GERD, hemorrhoids, diverticulosis, gastric sleeve surgery, s/p revision of gastric bypass at [facility] and essential hypertension who presented to the hospital for bright red emesis on 09/20. Patient was seen at bedside and reports that was doing well up until Friday, when shortly after baptism service she became suddenly nauseous and threw up bright red blood. She had 1 more episode thereafter presented to the emergency room. With this, no associated abdominal pain, fevers. She did notice 2 black bowel movements in the hospital. She reports no further emesis since last night. Initial vitals showed tachycardia, which has now improved. Blood pressure is normal - to note she is typically HYPERtensive. Previous hemoglobin was 10.8 last month, is down to 7.9 this morning. BUN to creatinine ratio was unreliable, as patient is dialysis dependent. Patient has had numerous hospitalization for GI bleeding. Most recently last month. EGD 08/11/2024: Gastritis, gave status post APC. EGD 05/20/2024: Anastomotic ulcers without bleeding. Gastritis. She does report that she was out of her medications for the past 1 week and has not gotten a refill yet due to high nio-ul-aafymb cost. Review of Systems 2 Review of Systems: Yes all other systems are reviewed and are negative PMFSH Past Medical History 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 Lumbar back pain with radiculopathy affecting left lower extremity Physical exam (~02/14/21) Peritoneal dialysis catheter in place Polyarthralgia Dyslipidemia Family history of ovarian cancer Abnormal mammogram of right breast Angina pectoris syndrome Chest pain Constipation Nephrosclerosis Renal interstitial fibrosis Obesity (BMI 30-39.9) Back pain GERD (gastroesophageal reflux disease) History of headache HTN (hypertension) Family History Family History Father Asthma Mother Asthma Hypertension Ovarian cancer Maternal Grandfather Myocardial infarction Paternal Grandmother Stroke Surgical History Surgical History History of sleeve gastrectomy S/P arteriovenous (AV) graft placement Fistula Hx of colonoscopy Hx of hysterectomy Hx of tubal ligation History of endometrial ablation Social History Social History Household Members: Children Household Members Other:: 30 year old special needs son Housing: Apartment Are you a primary career transition specialist to a significant other at home: No Do you presently have visiting nurse or other home services: Yes Alcohol intake: never Comment: low fall risk Patient Tobacco Use Status: Former Tobacco user Tobacco use type: Cigarette Cigarette Packs Per Day: 1 Cigarettes Per Day: 1 Years Smoked: 10+ e-Cigarette/Vaping Use: Never Used Second Hand Smoke Exposure: No Substance Use Type: Caffiene Advance Directives Date on File: 04/27/20 service: No Current occupational status: employed Cognitive needs: No Hearing needs: No Vision needs: Yes (reading glasses) Meds Allergies Allergy/AdvReac Type Severity Reaction Status Date / Time ibuprofen Allergy Severe Unknown Verified 09/22/24 09:22 nifedipine Allergy Intermediate hives, leg Verified 09/22/24 09:22 edema Active Medications: Current Medications Acetaminophen (Acetaminophen 325 Mg Tablet) 650 mg PO Q6H PRN PRN Reason: Pain, Mild 1-3,fever,headache Last Admin: 09/21/24 18:01 Dose: 650 mg Calcium Carbonate (Calcium Carbonate 750 Mg Tab.Chew) 750 mg PO Q4H PRN PRN Reason: Heartburn Carvedilol (Carvedilol 6.25 Mg Tablet) 6.25 mg PO BID [facility]; Protocol Last Admin: 09/21/24 20:33 Dose: 6.25 mg Cyanocobalamin (Cyanocobalamin (Vitamin B-12) 1,000 Mcg Tablet) 1,000 mcg PO DAILY [facility] Ergocalciferol (Ergocalciferol (Vitamin D2) 1,250 Mcg Capsule) 1,250 mcg PO PLEITEZ@0900 [facility] Escitalopram Oxalate (Escitalopram Oxalate 10 Mg Tablet) 10 mg PO DAILY [facility] Ferrous Sulfate (Ferrous Sulfate 324 Mg Tablet.Dr) 324 mg PO DAILY [facility] Fluticasone Propionate (Fluticasone Propionate Nasal 16 Gm [place]) 1 spray NOSTRIL-B DAILY PRN PRN Reason: Allergy Symptoms Gabapentin (Gabapentin 400 Mg Capsule) 400 mg PO BID [facility] Last Admin: 09/21/24 20:33 Dose: 400 mg Pantoprazole Sodium 80 mg/ (Sodium Chloride) 100 mls @ 10 mls/hr IV .Q10H [facility] Last Admin: 09/22/24 09:10 Dose: 8 mg/hr, 10 mls/hr Magnesium Hydroxide (Milk Of Magnesia 30 Ml Oral.Susp) 30 ml PO DAILY PRN PRN Reason: Constipation Meclizine HCl (Meclizine Hcl 12.5 Mg Tablet) 12.5 mg PO TID PRN PRN Reason: Nausea and Vomiting Melatonin (Melatonin 3 Mg Tablet) 6 mg PO BEDTIME PRN PRN Reason: Insomnia Midodrine (Midodrine Hcl 5 Mg Tablet) 5 mg PO DAILY PRN PRN Reason: Hypotension Multivitamins/Vitamin C (Multivitamin Tablet) 1 tab PO DAILY [facility] Naloxone HCl (Naloxone Hcl 0.4 Mg/Ml Vial) 0.04 mg IVPUSH Q5M PRN PRN Reason: Excessive sedation or RR < 8 Nystatin/Triamcinolone Acetonide (Nystatin/Triamcinolone Cream 15 Gm Tube) 1 appl TOPICAL DAILY PRN PRN Reason: Rash Ondansetron HCl (Ondansetron Hcl 4 Mg/2 Ml Vial) 4 mg IVPUSH Q8H PRN PRN Reason: Nausea and Vomiting Last Admin: 09/21/24 18:01 Dose: 4 mg Ondansetron HCl (Ondansetron Odt 4 Mg Tab.Rapdis) 4 mg TRANSLINGU Q8H PRN PRN Reason: Nausea and Vomiting Pyridoxine HCl (Pyridoxine Hcl (Vitamin B6) 50 Mg Tablet) 50 mg PO DAILY [facility] Sodium Chloride (0.9 % Sodium Chloride Flush 3 Ml Syringe) 3 ml IVFLUSH QSHIFT [facility] Last Admin: 09/22/24 09:05 Dose: 3 ml Sucralfate (Sucralfate Oral Suspension 1 Gm/10 Ml Oral.Susp) 1 gm PO QIDACHS [facility] Last Admin: 09/21/24 20:33 Dose: 1 gm Thiamine HCl (Thiamine Hcl 100 Mg Tablet) 100 mg PO DAILY [facility] Tramadol HCl (Tramadol Hcl 50 Mg Tablet) 50 mg PO Q6H PRN PRN Reason: Pain, Moderate(Pain Scale 4-6) Last Admin: 09/22/24 09:05 Dose: 50 mg Zinc Sulfate (Zinc Sulfate 220 Mg Capsule) 220 mg PO DAILY [facility] Home Medications ?Medication ?Instructions ?Recorded ?Confirmed ?Last Taken ?Type ferrous sulfate 325 mg (65 mg 325 mg PO DAILY 05/11/20 09/20/24 09/16/24 History iron) tablet,delayed release cyanocobalamin (vitamin B-12) 1,000 mcg PO DAILY 10/1709/20/24 09/16/24 History 1,000 mcg tablet midodrine 5 mg tablet 5 mg PO DAILY PRN Hypotensio n 03/25/23 09/20/24 05/18/24 History acetaminophen 500 mg capsule 1,000 mg PO Q8H PRN Pain 08/10/23 09/20/24 09/16/24 History (Mapap (acetaminophen)) fluticasone propionate 50 1 spray intranasal DAILY PRN 08/10/23 09/20/24 05/18/24 History mcg/actuation nasal Allergy Symptoms spray,suspension [id number] 45 mg-folic 1 cap PO DAILY 07/1309/20/24 09/16/24 History acid 800 mcg-vit K 120 mcg capsule (Bariatric Multivitamins) parenteral amino acid 15% no.5 15 0.5 ea IV MOWEFR@090 0 08/10/23 09/20/24 06/02/24 History % combination no.5 intravenous solution (Clinisol SF) zinc acetate 50 mg (zinc) capsule 100 mg PO DAILY 11/0409/20/24 09/16/24 History ergocalciferol (vitamin D2) 1,250 1,250 mcg PO PLEITEZ@0900 06/04/24 09/20/24 09/16/24 History mcg (50,000 unit) capsule (Vitamin D2) meclizine 12.5 mg tablet 12.5 mg PO TID PRN Nausea An d 06/04/24 09/20/24 06/04/24 History Vomiting omeprazole 40 mg capsule,delayed 40 mg PO BID@0630,163 0 06/04/24 09/20/24 09/16/24 History release clotrimazole-betamethasone 1 1 appl topical DAILY PRN Rash 09/20/24 09/20/24 Unknown History %-0.05 % topical cream Physical Exam 2 Exam: Exam: Middle-aged female In no acute distress Abdomen soft, nontender, nondistended No overt respiratory distress Vital Signs: Vital Signs: Last Vital Signs Temp 97.5 F 09/22/24 08:57 Pulse 79 09/22/24 08:57 Resp 18 09/22/24 08:57 BP 101/54 L 09/22/24 08:57 Pulse Ox 97 09/22/24 07:07 O2 Del Method Room Air 09/22/24 07:07 BMI result Body Mass Index 22.0 Results Labs 09/22/24 06:21 09/22/24 06:21 Labs: Laboratory Tests 08/17/24 09/20/24 09/21/24 13:50 16:55 06:02 Hgb 10.8 L 9.6 L Hct 32.4 L 28.8 L Sodium 138 Potassium 4.4 D BUN 59 H Creatinine 4.37 H* Assessment and Plan (1) Acute GI bleeding: Status: Acute (2) GERD (gastroesophageal reflux disease): Status: Acute (3) GAVE (gastric antral vascular ectasia): Status: Acute (4) Gastric ulcer: Status: Acute Plan Patient with elaine bright red emesis 09/19 with no further emesis in the last 12 hours. Does report melena, which could either be residual versus ongoing slow bleed. This is likely in the setting of nonadherence to medications. She has multiple possible differentials as edmonstrated by previous endoscopies, including anastomotic ulcer, gave, gastritis, esophagitis. Protonix IV b.i.d. has been started. Would also recommend adding sucralfate suspension. Will monitor H&H trend, if it continues to decline, will need upper endoscopy. Otherwise, if it stabilizes, melena is likely from residual GI bleed. Plan: -okay for clear liquids today -please keep NPO after midnight -continue Protonix IV b.i.d. -sucralfate 10 mL q.i.d. -monitor H&H b.i.d. -transfuse for hemoglobin less than 7 Thank you for allowing me to participate in her care. Please do not hesitate to reach out for any questions or concerns. Procedures Date of Service Date of Service: 09/22/24
[2024-09-21 16:00] VITALS: BP 105/55; PULSE 92; RESP 18; TEMP 37.4; O2SAT 95
[2024-09-21] MEDS: Sucralfate Oral Suspension 1 GM/10 ML ORAL.SUSP PO ×2 (18:01→20:33)
[2024-09-21 20:00] VITALS: BP 108/57; PULSE 95; RESP 18; TEMP 37.3; O2SAT 100
[2024-09-21 20:33] VITALS: BP 108/57; PULSE 95
[2024-09-22] VITALS (12 sets, daily range): BP systolic 92–207; BP diastolic 51–85; PULSE 72–85; RESP 16–18; TEMP 36.1–37.1; O2SAT 96–100
[2024-09-22 06:33] LABS: MANUAL DIFF FLAG NO
[2024-09-22 06:37] LABS: Imm Gran Abs Auto 0.02 X10*3/uL (0.00-0.03); Imm Gran Pct Auto 0.4 % (0.0-0.4); Lymphocytes Absolute Auto 2.0 X10*3/uL (1.2-4.9); Mean Corpuscular HGB Conc 33.2 g/dl (31.0-35.0); Mean Corpuscular Hemoglobin 31.6 pg (27.0-33.0); Mean Corpuscular Volume 95.2 fL (80.0-98.0); NRBC Abs Auto 0.000 X10*3/uL (0.0-0.012); NRBC Pct Auto 0.0 /100WBC (0.0-0.2); Platelet Count 169 X10*3/uL (160-400); Red Blood Count 2.09 X10*6/uL (4.20-5.50); White Blood Count 5.0 X10*3/uL (4.8-10.8)
[2024-09-22 06:53] LABS: Anion Gap 15 (12-20); Blood Urea Nitrogen 71 mg/dL (9-16); Calcium 8.3 mg/dL (8.4-10.2); Carbon Dioxide 26 mmol/L (22-29); Chloride 101 mmol/L (96-108); Creatinine Clr Calc Pharmacy 10.2; Estimated Glomerular Filt Rate 8; Potassium 5.0 mmol/L (3.3-5.1); Sodium 137 mmol/L (135-145)
[2024-09-22 07:35] LABS: Hematocrit 19.9 % (37.0-47.0); Hemoglobin 6.6 g/dl (12.0-16.0)
--- NOTE | 2024-09-22 07:54 | HO.ANESPROP2 ---
HPI - Anesthesia Eval Consult details Narrative: upper endo fo bleed PMFSH Active Problems Active Problems: All Active Problems Acute hyperkalemia (Acute) Acute GI bleeding (Acute) Hypertensive emergency (Acute) Hyperkalemia (Acute) End stage chronic kidney disease (Acute) ESRD on dialysis (Acute) Radiculopathy, lumbar region (Acute) Hidradenitis suppurativa of multiple sites (Acute) Superior mesenteric artery stenosis (Acute) Underweight (Acute) Suprapubic pain (Acute) Syncope (Acute) Schatzki's ring (Acute) Gastritis (Acute) Esophagitis (Acute) Idiopathic hypotension (Acute) Moderate major depression (Acute) Systolic murmur (Acute) Malnutrition (Acute) Pre-op examination (Acute) Non-cardiac chest pain (Acute) Polyp of right nasal cavity (Acute) Numbness (Acute) Palpitations (Acute) Urinary and fecal incontinence (Acute) Anxiety and depression (Acute) Chronic low back pain (Acute) Fatigue (Acute) Nasal polyp, benign (Acute) Anxiety and depression (Acute) LLQ abdominal pain (Acute) Tubular adenoma of colon (Acute) Anxiety (Acute) Chronic renal insufficiency (Acute) Spinal stenosis (Acute) 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 (Acute) Lumbar back pain with radiculopathy affecting left lower extremity (Acute) GERD (gastroesophageal reflux disease) (Acute) Polyarthralgia (Acute) Dyslipidemia (Acute) Family history of ovarian cancer (Acute) Abnormal mammogram of right breast (Acute) Chest pain (Acute) Obesity (BMI 30-39.9) (Acute) HTN (hypertension) (Acute) Past Medical History 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 Lumbar back pain with radiculopathy affecting left lower extremity Physical exam (~02/14/21) Peritoneal dialysis catheter in place Polyarthralgia Dyslipidemia Family history of ovarian cancer Abnormal mammogram of right breast Angina pectoris syndrome Chest pain Constipation Nephrosclerosis Renal interstitial fibrosis Obesity (BMI 30-39.9) Back pain GERD (gastroesophageal reflux disease) History of headache HTN (hypertension) Family History Family History Father Asthma Mother Asthma Hypertension Ovarian cancer Maternal Grandfather Myocardial infarction Paternal Grandmother Stroke Family history of problems with anesthesia: No Surgical History Surgical History History of sleeve gastrectomy S/P arteriovenous (AV) graft placement Fistula Hx of colonoscopy Hx of hysterectomy Hx of tubal ligation History of endometrial ablation History of Problems with Anesthesia: No Social History Social History Household Members: Children Household Members Other:: 30 year old special needs son Housing: Apartment Are you a primary senior care manager to a significant other at home: No Do you presently have visiting nurse or other home services: Yes Alcohol intake: never Comment: low fall risk Patient Tobacco Use Status: Former Tobacco user Tobacco use type: Cigarette Cigarette Packs Per Day: 1 Cigarettes Per Day: 1 Years Smoked: 10+ e-Cigarette/Vaping Use: Never Used Second Hand Smoke Exposure: No Substance Use Type: Caffiene Advance Directives Date on File: 04/27/20 service: No Current occupational status: employed Cognitive needs: No Hearing needs: No Vision needs: Yes (reading glasses) Meds Allergies Allergy/AdvReac Type Severity Reaction Status Date / Time ibuprofen Allergy Severe Unknown Verified 09/20/24 16:01 nifedipine Allergy Intermediate hives, leg Verified 09/20/24 16:01 edema Active Medications: Current Medications Acetaminophen (Acetaminophen 325 Mg Tablet) 650 mg PO Q6H PRN PRN Reason: Pain, Mild 1-3,fever,headache Last Admin: 09/21/24 18:01 Dose: 650 mg Calcium Carbonate (Calcium Carbonate 750 Mg Tab.Chew) 750 mg PO Q4H PRN PRN Reason: Heartburn Carvedilol (Carvedilol 6.25 Mg Tablet) 6.25 mg PO BID COUNTS INCLUDE 234 BEDS AT THE [facility]; Protocol Last Admin: 09/21/24 20:33 Dose: 6.25 mg Cyanocobalamin (Cyanocobalamin (Vitamin B-12) 1,000 Mcg Tablet) 1,000 mcg PO DAILY COUNTS INCLUDE 234 BEDS AT THE [facility] Ergocalciferol (Ergocalciferol (Vitamin D2) 1,250 Mcg Capsule) 1,250 mcg PO PLEITEZ@0900 COUNTS INCLUDE 234 BEDS AT THE [facility] Escitalopram Oxalate (Escitalopram Oxalate 10 Mg Tablet) 10 mg PO DAILY COUNTS INCLUDE 234 BEDS AT THE [facility] Ferrous Sulfate (Ferrous Sulfate 324 Mg Tablet.Dr) 324 mg PO DAILY COUNTS INCLUDE 234 BEDS AT THE [facility] Fluticasone Propionate (Fluticasone Propionate Nasal 16 Gm [place]) 1 spray NOSTRIL-B DAILY PRN PRN Reason: Allergy Symptoms Gabapentin (Gabapentin 400 Mg Capsule) 400 mg PO BID COUNTS INCLUDE 234 BEDS AT THE [facility] Last Admin: 09/21/24 20:33 Dose: 400 mg Pantoprazole Sodium 80 mg/ (Sodium Chloride) 100 mls @ 10 mls/hr IV .Q10H COUNTS INCLUDE 234 BEDS AT THE [facility] Magnesium Hydroxide (Milk Of Magnesia 30 Ml Oral.Susp) 30 ml PO DAILY PRN PRN Reason: Constipation Meclizine HCl (Meclizine Hcl 12.5 Mg Tablet) 12.5 mg PO TID PRN PRN Reason: Nausea and Vomiting Melatonin (Melatonin 3 Mg Tablet) 6 mg PO BEDTIME PRN PRN Reason: Insomnia Midodrine (Midodrine Hcl 5 Mg Tablet) 5 mg PO DAILY PRN PRN Reason: Hypotension Multivitamins/Vitamin C (Multivitamin Tablet) 1 tab PO DAILY COUNTS INCLUDE 234 BEDS AT THE [facility] Nystatin/Triamcinolone Acetonide (Nystatin/Triamcinolone Cream 15 Gm Tube) 1 appl TOPICAL DAILY PRN PRN Reason: Rash Ondansetron HCl (Ondansetron Hcl 4 Mg/2 Ml Vial) 4 mg IVPUSH Q8H PRN PRN Reason: Nausea and Vomiting Last Admin: 09/21/24 18:01 Dose: 4 mg Ondansetron HCl (Ondansetron Odt 4 Mg Tab.Rapdis) 4 mg TRANSLINGU Q8H PRN PRN Reason: Nausea and Vomiting Pyridoxine HCl (Pyridoxine Hcl (Vitamin B6) 50 Mg Tablet) 50 mg PO DAILY COUNTS INCLUDE 234 BEDS AT THE [facility] Sodium Chloride (0.9 % Sodium Chloride Flush 3 Ml Syringe) 3 ml IVFLUSH QSHIFT COUNTS INCLUDE 234 BEDS AT THE [facility] Last Admin: 09/21/24 20:34 Dose: 3 ml Sucralfate (Sucralfate Oral Suspension 1 Gm/10 Ml Oral.Susp) 1 gm PO QIDACHS COUNTS INCLUDE 234 BEDS AT THE [facility] Last Admin: 09/21/24 20:33 Dose: 1 gm Thiamine HCl (Thiamine Hcl 100 Mg Tablet) 100 mg PO DAILY COUNTS INCLUDE 234 BEDS AT THE [facility] Tramadol HCl (Tramadol Hcl 50 Mg Tablet) 50 mg PO Q6H PRN PRN Reason: Pain, Moderate(Pain Scale 4-6) Last Admin: 09/21/24 20:30 Dose: 50 mg Zinc Sulfate (Zinc Sulfate 220 Mg Capsule) 220 mg PO DAILY [facility] Home Medications ?Medication ?Instructions ?Recorded ?Confirmed ?Last Taken ?Type ferrous sulfate 325 mg (65 mg 325 mg PO DAILY 05/11/20 09/20/24 09/16/24 History iron) tablet,delayed release cyanocobalamin (vitamin B-12) 1,000 mcg PO DAILY 10/17/20 09/20/24 09/16/24 History 1,000 mcg tablet midodrine 5 mg tablet 5 mg PO DAILY PRN Hypotension 03/25/23 09/20/24 05/18/24 History acetaminophen 500 mg capsule 1,000 mg PO Q8H PRN Pain 08/10/23 09/20/24 09/16/24 History (Mapap (acetaminophen)) fluticasone propionate 50 1 spray intranasal DAILY PRN 08/10/23 09/20/24 05/18/24 History mcg/actuation nasal Allergy Symptoms spray,suspension [id number]-ndie 45 mg-folic 1 cap PO DAILY 08/10/23 09/20/24 09/16/24 History acid 800 mcg-vit K 120 mcg capsule (Bariatric Multivitamins) parenteral amino acid 15% no.5 15 0.5 ea IV MOWEFR@89908/10/23 09/20/24 06/02/24 History % combination no.5 intravenous solution (Clinisol SF) zinc acetate 50 mg (zinc) capsule 100 mg PO DAILY 05/19/24 09/20/24 09/16/24 History ergocalciferol (vitamin D2) 1,250 1,250 mcg PO PLEITEZ@0900 06/04/24 09/20/24 09/16/24 History mcg (50,000 unit) capsule (Vitamin D2) meclizine 12.5 mg tablet 12.5 mg PO TID PRN Nausea And 06/04/24 09/20/24 06/04/24 History Vomiting omeprazole 40 mg capsule,delayed 40 mg PO BID@0630,1630 06/04/24 09/20/24 09/16/24 History release clotrimazole-betamethasone 1 1 appl topical DAILY PRN Rash 09/20/24 09/20/24 Unknown History %-0.05 % topical cream Exam Height,Weight and Vital Signs: Height 5 ft 5 in Weight 60 kg Last Vital Signs Temp 97.6 F 09/22/24 07:07 Pulse 80 09/22/24 07:07 Resp 18 09/22/24 07:07 BP 118/65 09/22/24 07:07 Pulse Ox 97 09/22/24 07:07 O2 Del Method Room Air 09/22/24 07:07 Pertinent Lab Results Pertinent Lab Results: Laboratory Tests 09/20/24 09/20/24 09/20/24 16:55 18:17 19:57 WBC 13.5 H RBC 3.02 L Hgb 9.6 L Hct 28.8 L MCV 95.4 MCH 31.8 MCHC 33.3 RDW 15.4 Plt Count 265 MPV 9.5 Immature Gran % (Auto) 0.7 H Neut % (Auto) 87.2 H Lymph % (Auto) 7.6 L [place] % (Auto) 3.9 Eos % (Auto) 0.3 Baso % (Auto) 0.3 Lymph # (Auto) 1.0 L [place] # (Auto) 0.5 Eos # (Auto) 0.0 Baso # (Auto) 0.0 Abs Immat Gran (auto) 0.09 H Absolute Neuts (auto) 11.7 H Absolute Nucleated RBC 0.000 Nucleated RBC % (auto) 0.0 PT 11.1 INR 1.0 APTT 24.8 L Sodium 138 Potassium 6.0 H* D Chloride 108 Carbon Dioxide 19 L Anion Gap 17 BUN 94 H Creatinine 6.29 H* Estim Creat Clear Calc 9.3 Estimated GFR 7 POC Glucose 123 H Random Glucose 144 H Calcium 8.9 Total Bilirubin 0.5 AST 14 ALT 6 Alkaline Phosphatase 142 H Total Protein 6.0 L Albumin 3.4 L 09/21/24 09/22/24 06:02 06:21 WBC 7.5 5.0 RBC 2.57 L 2.09 L Hgb 7.9 L 6.6 L* Hct 23.8 L 19.9 L* MCV 92.6 95.2 MCH 30.7 31.6 MCHC 33.2 33.2 RDW 14.9 15.2 Plt Count 222 169 MPV 9.9 9.0 L Immature Gran % (Auto) 0.5 H 0.4 Neut % (Auto) 63.4 49.4 Lymph % (Auto) 26.5 38.9 [place] % (Auto) 8.7 7.5 Eos % (Auto) 0.5 3.0 Baso % (Auto) 0.4 0.8 Lymph # (Auto) 2.0 2.0 [place] # (Auto) 0.7 0.4 Eos # (Auto) 0.0 0.2 Baso # (Auto) 0.0 0.0 Abs Immat Gran (auto) 0.04 H 0.02 Absolute Neuts (auto) 4.7 2.5 Absolute Nucleated RBC 0.000 0.000 Nucleated RBC % (auto) 0.0 0.0 PT INR APTT Sodium 138 137 Potassium 4.4 D 5.0 Chloride 102 101 Carbon Dioxide 27 26 Anion Gap 13 15 BUN 59 H 71 H Creatinine 4.37 H* 5.73 H* Estim Creat Clear Calc 13.3 10.2 Estimated GFR 11 8 POC Glucose Random Glucose 87 81 Calcium 8.6 8.3 L Total Bilirubin AST ALT Alkaline Phosphatase Total Protein Albumin Airway Mallampati Class: II TM Dist: >3cm Heart: rrr Lungs: cta Assessment and Plan Assessment Anesthesia Assessment: Anesthesia Plan Discussed and Chart Reviewed Final Anesthetic Review Family History of Problems with Anesthesia: No History of Problems with Anesthesia: No NPO: Yes ASA Class: III and Emergency Final Preanesthetic Review: No Changes in Pt Med Stat, Meds/Allgs Chart Reviewed, Consent Obtained/Reviewed and Anes Risks/Benef Reviewed Patient Risk: Intermediate Procedure Risk: Low Anesthetic Plan Anesthetic Plan: GA, MAC: and Agree w/ Assess. and Plan
--- NOTE | 2024-09-22 08:25 | HO.PM.IMPN ---
Subjective Subjective Date of Service: 09/22/24 Interval History: And examined this morning Follow-up for anemia Denies any bleeding overnight Reports feeling lightheaded, having epigastric abdominal pain; noticed some swelling to her right hand Constitutional Constitutional: Denies chills and Denies fever(s) Cardiovascular Cardiovascular: Denies chest pain, Denies palpitations and Denies dyspnea Respiratory Respiratory: Denies cough and Denies dyspnea Gastrointestinal Gastrointestinal: Reports abdominal pain and Denies vomiting Endocrine Endocrine: Denies palpitations Physical Exam Vital Signs: Vital Signs: Last Vital Signs Temp 97.6 F 09/22/24 07:07 Pulse 80 09/22/24 07:07 Resp 18 09/22/24 07:07 BP 118/65 09/22/24 07:07 Pulse Ox 97 09/22/24 07:07 O2 Del Method Room Air 09/22/24 07:07 BMI result Body Mass Index 22.0 Const: General: cooperative, comfortable, no acute distress, alert and awake Nutritional Appearance: average body habitus Orientation/consciousness: patient oriented x3 Resp: Effort & Inspection: normal respiratory effort, able to speak in complete sentences, no respiratory distress and no use of accessory muscles Auscultation: clear to auscultation bilaterally Cardio: Rate: regular rate GI: Other: No distention, no guarding, no rebound, soft Neuro: General: patient oriented x3, moves all extremities and CN's II-XI intact bilaterally Extrem: Other: LUE fistula RUE mild hand swelling, no erythema, no tenderness Objective Data Active Medications Acetaminophen (Acetaminophen 325 Mg Tablet) 650 mg PO Q6H PRN PRN Reason: Pain, Mild 1-3,fever,headache Last Admin: 09/21/24 18:01 Dose: 650 mg Documented By: TOMMY Calcium Carbonate (Calcium Carbonate 750 Mg Tab.Chew) 750 mg PO Q4H PRN PRN Reason: Heartburn Carvedilol (Carvedilol 6.25 Mg Tablet) 6.25 mg PO BID [facility]; Protocol Last Admin: 09/21/24 20:33 Dose: 6.25 mg Documented By: MARCO Cyanocobalamin (Cyanocobalamin (Vitamin B-12) 1,000 Mcg Tablet) 1,000 mcg PO DAILY [facility] Ergocalciferol (Ergocalciferol (Vitamin D2) 1,250 Mcg Capsule) 1,250 mcg PO PLEITEZ@0900 [facility] Escitalopram Oxalate (Escitalopram Oxalate 10 Mg Tablet) 10 mg PO DAILY [facility] Ferrous Sulfate (Ferrous Sulfate 324 Mg Tablet.Dr) 324 mg PO DAILY [facility] Fluticasone Propionate (Fluticasone Propionate Nasal 16 Gm [place]) 1 spray NOSTRIL-B DAILY PRN PRN Reason: Allergy Symptoms Gabapentin (Gabapentin 400 Mg Capsule) 400 mg PO BID [facility] Last Admin: 09/21/24 20:33 Dose: 400 mg Documented By: MARCO Pantoprazole Sodium 80 mg/ (Sodium Chloride) 100 mls @ 10 mls/hr IV .Q10H [facility] Magnesium Hydroxide (Milk Of Magnesia 30 Ml Oral.Susp) 30 ml PO DAILY PRN PRN Reason: Constipation Meclizine HCl (Meclizine Hcl 12.5 Mg Tablet) 12.5 mg PO TID PRN PRN Reason: Nausea and Vomiting Melatonin (Melatonin 3 Mg Tablet) 6 mg PO BEDTIME PRN PRN Reason: Insomnia Midodrine (Midodrine Hcl 5 Mg Tablet) 5 mg PO DAILY PRN PRN Reason: Hypotension Multivitamins/Vitamin C (Multivitamin Tablet) 1 tab PO DAILY [facility] Naloxone HCl (Naloxone Hcl 0.4 Mg/Ml Vial) 0.04 mg IVPUSH Q5M PRN PRN Reason: Excessive sedation or RR < 8 Nystatin/Triamcinolone Acetonide (Nystatin/Triamcinolone Cream 15 Gm Tube) 1 appl TOPICAL DAILY PRN PRN Reason: Rash Ondansetron HCl (Ondansetron Hcl 4 Mg/2 Ml Vial) 4 mg IVPUSH Q8H PRN PRN Reason: Nausea and Vomiting Last Admin: 09/21/24 18:01 Dose: 4 mg Documented By: TOMMY Ondansetron HCl (Ondansetron Odt 4 Mg Tab.Rapdis) 4 mg TRANSLINGU Q8H PRN PRN Reason: Nausea and Vomiting Pyridoxine HCl (Pyridoxine Hcl (Vitamin B6) 50 Mg Tablet) 50 mg PO DAILY [facility] Sodium Chloride (0.9 % Sodium Chloride Flush 3 Ml Syringe) 3 ml IVFLUSH QSHIFT [facility] Last Admin: 09/21/24 20:34 Dose: 3 ml Documented By: MARCO Sucralfate (Sucralfate Oral Suspension 1 Gm/10 Ml Oral.Susp) 1 gm PO QIDACHS [facility] Last Admin: 09/21/24 20:33 Dose: 1 gm Documented By: MARCO Thiamine HCl (Thiamine Hcl 100 Mg Tablet) 100 mg PO DAILY [facility] Tramadol HCl (Tramadol Hcl 50 Mg Tablet) 50 mg PO Q6H PRN PRN Reason: Pain, Moderate(Pain Scale 4-6) Last Admin: 09/21/24 20:30 Dose: 50 mg Documented By: MARCO Zinc Sulfate (Zinc Sulfate 220 Mg Capsule) 220 mg PO DAILY [facility] Labs 09/22/24 06:21 09/22/24 06:21 Labs: Laboratory Results - last 24 hr 09/22/24 09/22/24 06:21 07:51 MCV 95.2 MCH 31.6 MCHC 33.2 RDW 15.2 Plt Count 169 MPV 9.0 L Immature Gran % (Auto) 0.4 Neut % (Auto) 49.4 Lymph % (Auto) 38.9 [place] % (Auto) 7.5 Eos % (Auto) 3.0 Baso % (Auto) 0.8 Lymph # (Auto) 2.0 [place] # (Auto) 0.4 Eos # (Auto) 0.2 Baso # (Auto) 0.0 Abs Immat Gran (auto) 0.02 Absolute Neuts (auto) 2.5 Absolute Nucleated RBC 0.000 Nucleated RBC % (auto) 0.0 Anion Gap 15 Estim Creat Clear Calc 10.2 Estimated GFR 8 Random Glucose 81 Calcium 8.3 L Crossmatch See Detail Assessment and Plan (1) Acute GI bleeding: Status: Acute (2) Chronic renal insufficiency: Status: Acute Plan This has a 54-year-old female with pertinent history of ESRD on hemodialysis Friday/Friday/Friday, recurrent upper GI bleed due to 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 Acute upper GI bleed, recurrent: reports no bleeding, but drop in H/H again overnight EGD on 05/20/2024 which revealed anastomotic ulcers without bleeding and gastritis Change to Protonix drip Plan for EGD today, remains NPO Transfuse 1 unit of blood Follow CBC Hypertensive emergency and Severe hyperkalemia due to missed hemodialysis in a patient with ESRD M/W/F: Resolved with urgent dialysis Nephrology following Mixed hyperlipidemia: statin Mood Continue baseline medications DVT prophylaxis: SCDs Full code. Discussed with patient at bedside Requires ongoing inpatient stay for management of evaluation of GI bleed, monitoring of hemodynamics and H&H (as above), which is not possible in a lesser acute setting. Specialist consult pending Quality Stroke Does the patient have a stroke diagnosis?: No VTE Prior VTE?: No VTE Risk Level:: Medical - moderate - high VTE Device Contraindication: N/A - Device Ordered VTE Drug Contraindication: Treatment Not Indicated
[2024-09-22] MEDS: 0.9 % Sodium Chloride Flush 3 ML SYRINGE IVFLUSH ×2 (09:05→20:29)
[2024-09-22] MEDS: Pantoprazole Sodium 80 MG in 0.9 % Sodium Chloride 80 ML 10 MG IV ×2 (09:10→19:18)
--- NOTE | 2024-09-22 09:25 | PC.NURSE ---
Patient has two IV's: #20 in right AC and #20 in right hand. Both IVs patent, WNL. AV fistula to left upper arm- +bruit, palpation, and auscultation.
--- NOTE | 2024-09-22 09:29 | P.PNGI_ITS ---
Subjective Subjective Date of Service: 09/22/24 Interval History: Patient had elaine episode of melena again this morning. Repeat H&H has dropped further. Reports lightheadedness. Blood pressure on the softer side. Critical Care Time (minutes): 0 Physical Exam 2 Exam: Exam: Pale appearing In no acute distress Abdomen soft, mildly distended Vital Signs: Vital Signs: Last Vital Signs Temp 98.7 F 09/22/24 09:25 Pulse 81 09/22/24 09:25 Resp 17 09/22/24 09:25 BP 125/56 L 09/22/24 09:25 Pulse Ox 99 09/22/24 09:25 O2 Del Method Room Air 09/22/24 09:25 BMI result Body Mass Index 22.0 Objective Data Labs 09/22/24 06:21 09/22/24 06:21 Labs: Laboratory Results - last 24 hr 09/22/24 09/22/24 06:21 07:51 WBC 5.0 RBC 2.09 L Hgb 6.6 L* Hct 19.9 L* MCV 95.2 MCH 31.6 MCHC 33.2 RDW 15.2 Plt Count 169 MPV 9.0 L Immature Gran % (Auto) 0.4 Neut % (Auto) 49.4 Lymph % (Auto) 38.9 [place] % (Auto) 7.5 Eos % (Auto) 3.0 Baso % (Auto) 0.8 Lymph # (Auto) 2.0 [place] # (Auto) 0.4 Eos # (Auto) 0.2 Baso # (Auto) 0.0 Abs Immat Gran (auto) 0.02 Absolute Neuts (auto) 2.5 Absolute Nucleated RBC 0.000 Nucleated RBC % (auto) 0.0 Sodium 137 Potassium 5.0 Chloride 101 Carbon Dioxide 26 Anion Gap 15 BUN 71 H Creatinine 5.73 H* Estim Creat Clear Calc 10.2 Estimated GFR 8 Random Glucose 81 Calcium 8.3 L Blood Type O Positive Antibody Screen NEGATIVE Crossmatch See Detail Procedures Date of Service Date of Service: 09/22/24 Progress Note: A&P Assessment and plan (1) Acute blood loss anemia (ABLA): Status: Acute (2) GAVE (gastric antral vascular ectasia): Status: Acute (3) Esophagitis: Status: Acute (4) Gastric ulcer: Status: Acute Plan Patient with further GI bleeding, likely upper. Will plan for urgent endoscopy this morning. Plan: -please transfuse when needed ADITYA -please keep NPO -please switch Protonix IV push to Protonix drip -will proceed with urgent EGD Time Spent With Patient Time: Total time managing care of this patient today ____ minutes. Quality Stroke Does the patient have a stroke diagnosis?: No VTE Prior VTE?: No VTE Risk Level:: Medical - moderate - high VTE Device Contraindication: N/A - Device Ordered VTE Drug Contraindication: Treatment Not Indicated
--- NOTE | 2024-09-22 10:13 | P.OP_ITS ---
Operative Note Operative Note Date of Service: 09/22/24 Narrative: Procedure: Esophagogastroduodenoscopy Endoscopist: Teena Murrell MD Indication: UGIB Anesthesia Provider: Marshall Davis CRNA Anesthesia Type: GEA ?? EGD Procedure:?? The procedure, indications, preparation and potential complications were reviewed with the patient, who indicated understanding and gave written informed consent to proceed. A physical exam was performed. The patient was electively intubated for airway protection the anesthesiologist. The endoscope was introduced through the mouth, and advanced to the second part of duodenum. The mucosa was carefully examined on slow withdrawal of the endoscope. The patient tolerated the procedure well. There were no immediate complications.? Patient also received 2 units PRBC total during the procedure. ? EGD Findings:? * Esophagus:? Normal mucosa noted in the entire esophagus. The Z line was at 46 cm. * Stomach:? Severe erythema and edema was noted in the gastric folds. Total of 6 clean ulcers meauring 5-15 mm were noted around the anastomosis on the jejunal side. Two previously placed Endoclips were noted at the site of another healing ulcer at 5 o clock around the anastomosis line. Out of the 6 ulcers two ulcers had stigmata of recent bleed and the rest were white based. The larger 15 mm ulcer at 10 o clock at the anastomosis line had nonbleeding visible vessel (Foster II A). Thee 2nd ulcer measuring 6 mm had spontaneous oozing (Foster IB). Epinephrine was injected and the ulcers were cauterized with gold probe for complete hemostasis. Hemo spray was also applied to reinforce hemostasis. * Small bowel:? Both the small bowel limbs appeared endoscopically normal, without any ulceration. ? EGD Impressions:? * Normal esophagus * Gastritis * Numerous anastomotic ulcers with 2 ulcers with high risk stigmata (epi, thermal therapy, hemospray) * Normal jejunum Recommendations:?? * Clear liquids today. Can progress tmrw if no further rebleeding. * Check CBC BID * Continue IV ppi drip x 72 hours * Carafate 10 ml QID * Avoid NSAIDs. * Strict counseling to use PPI with open capsules and sucralfate as prescribed regularly, it to not miss/skip any doses. * Repeat EGD in 4 weeks to assess for healing. Above has been reviewed with the patient.
--- NOTE | 2024-09-22 10:57 | P.CONNP_ITS ---
History of Present Illness Reason for Consult Consult date: 09/22/24 Reason for consult: ESRD on HD management Chief Complaint Chief complaint: hyperkalemia History of Present Illness Narrative: POLINE consulted for HD management Adm for recurrent GIB erika cortesunaltey has been a repetitive probem with [facility]. On adm svere HTN and hyperK and so had HD on adm. Overall feeling better but decr Hb and now getting a xfusion this am Complicated PMH as outlined below Review of Systems Review of Systems Yes all other systems are reviewed and are negative Constitutional: Denies chills and Denies fever(s) Cardiovascular: Denies chest pain, Denies palpitations and Denies dyspnea Respiratory: Reports no additional respiratory complaints, Denies cough and Denies dyspnea Gastrointestinal: Reports abdominal pain, Reports hematochezia and Denies vomiting Endocrine: Denies palpitations PMFSH Past Medical History 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 Lumbar back pain with radiculopathy affecting left lower extremity Physical exam (~02/14/21) Peritoneal dialysis catheter in place Polyarthralgia Dyslipidemia Family history of ovarian cancer Abnormal mammogram of right breast Angina pectoris syndrome Chest pain Constipation Nephrosclerosis Renal interstitial fibrosis Obesity (BMI 30-39.9) Back pain GERD (gastroesophageal reflux disease) History of headache HTN (hypertension) Family History Family History Father Asthma Mother Asthma Hypertension Ovarian cancer Maternal Grandfather Myocardial infarction Paternal Grandmother Stroke Surgical History Surgical History History of sleeve gastrectomy S/P arteriovenous (AV) graft placement Fistula Hx of colonoscopy Hx of hysterectomy Hx of tubal ligation History of endometrial ablation Social History Social History Household Members: Children Household Members Other:: 30 year old special needs son Housing: Apartment Are you a primary student career development specialist to a significant other at home: No Do you presently have visiting nurse or other home services: Yes Alcohol intake: never Comment: low fall risk Patient Tobacco Use Status: Former Tobacco user Tobacco use type: Cigarette Cigarette Packs Per Day: 1 Cigarettes Per Day: 1 Years Smoked: 10+ e-Cigarette/Vaping Use: Never Used Second Hand Smoke Exposure: No Substance Use Type: Caffiene Advance Directives Date on File: 04/27/20 service: No Current occupational status: employed Cognitive needs: No Hearing needs: No Vision needs: Yes (reading glasses) Meds Allergies Allergy/AdvReac Type Severity Reaction Status Date / Time ibuprofen Allergy Severe Unknown Verified 09/22/24 09:22 nifedipine Allergy Intermediate hives, leg Verified 09/22/24 09:22 edema Active Medications: Current Medications Acetaminophen (Acetaminophen 325 Mg Tablet) 650 mg PO Q6H PRN PRN Reason: Pain, Mild 1-3,fever,headache Last Admin: 09/21/24 18:01 Dose: 650 mg Calcium Carbonate (Calcium Carbonate 750 Mg Tab.Chew) 750 mg PO Q4H PRN PRN Reason: Heartburn Carvedilol (Carvedilol 6.25 Mg Tablet) 6.25 mg PO BID [facility]; Protocol Last Admin: 09/22/24 09:46 Dose: Not Given Cyanocobalamin (Cyanocobalamin (Vitamin B-12) 1,000 Mcg Tablet) 1,000 mcg PO DAILY [facility] Last Admin: 09/22/24 09:46 Dose: Not Given Ergocalciferol (Ergocalciferol (Vitamin D2) 1,250 Mcg Capsule) 1,250 mcg PO PLEITEZ@0900 [facility] Escitalopram Oxalate (Escitalopram Oxalate 10 Mg Tablet) 10 mg PO DAILY [facility] Last Admin: 09/22/24 09:46 Dose: Not Given Ferrous Sulfate (Ferrous Sulfate 324 Mg Tablet.Dr) 324 mg PO DAILY [facility] Last Admin: 09/22/24 09:46 Dose: Not Given Fluticasone Propionate (Fluticasone Propionate Nasal 16 Gm [place]) 1 spray NOSTRIL-B DAILY PRN PRN Reason: Allergy Symptoms Gabapentin (Gabapentin 400 Mg Capsule) 400 mg PO BID [facility] Last Admin: 09/22/24 09:46 Dose: Not Given Pantoprazole Sodium 80 mg/ (Sodium Chloride) 100 mls @ 10 mls/hr IV .Q10H [facility] Stop: 09/25/24 08:59 Last Admin: 09/22/24 09:10 Dose: 8 mg/hr, 10 mls/hr Magnesium Hydroxide (Milk Of Magnesia 30 Ml Oral.Susp) 30 ml PO DAILY PRN PRN Reason: Constipation Meclizine HCl (Meclizine Hcl 12.5 Mg Tablet) 12.5 mg PO TID PRN PRN Reason: Nausea and Vomiting Melatonin (Melatonin 3 Mg Tablet) 6 mg PO BEDTIME PRN PRN Reason: Insomnia Midodrine (Midodrine Hcl 5 Mg Tablet) 5 mg PO DAILY PRN PRN Reason: Hypotension Multivitamins/Vitamin C (Multivitamin Tablet) 1 tab PO DAILY [facility] Last Admin: 09/22/24 09:46 Dose: Not Given Naloxone HCl (Naloxone Hcl 0.4 Mg/Ml Vial) 0.04 mg IVPUSH Q5M PRN PRN Reason: Excessive sedation or RR < 8 Nystatin/Triamcinolone Acetonide (Nystatin/Triamcinolone Cream 15 Gm Tube) 1 appl TOPICAL DAILY PRN PRN Reason: Rash Ondansetron HCl (Ondansetron Hcl 4 Mg/2 Ml Vial) 4 mg IVPUSH Q8H PRN PRN Reason: Nausea and Vomiting Last Admin: 09/21/24 18:01 Dose: 4 mg Ondansetron HCl (Ondansetron Odt 4 Mg Tab.Rapdis) 4 mg TRANSLINGU Q8H PRN PRN Reason: Nausea and Vomiting Pyridoxine HCl (Pyridoxine Hcl (Vitamin B6) 50 Mg Tablet) 50 mg PO DAILY [facility] Last Admin: 09/22/24 09:46 Dose: Not Given Sodium Chloride (0.9 % Sodium Chloride Flush 3 Ml Syringe) 3 ml IVFLUSH QSHIFT [facility] Last Admin: 09/22/24 09:05 Dose: 3 ml Sucralfate (Sucralfate Oral Suspension 1 Gm/10 Ml Oral.Susp) 1 gm PO QIDACHS [facility] Last Admin: 09/22/24 09:12 Dose: Not Given Thiamine HCl (Thiamine Hcl 100 Mg Tablet) 100 mg PO DAILY [facility] Last Admin: 09/22/24 09:46 Dose: Not Given Tramadol HCl (Tramadol Hcl 50 Mg Tablet) 50 mg PO Q6H PRN PRN Reason: Pain, Moderate(Pain Scale 4-6) Last Admin: 09/22/24 09:05 Dose: 50 mg Zinc Sulfate (Zinc Sulfate 220 Mg Capsule) 220 mg PO DAILY [facility] Last Admin: 09/22/24 09:46 Dose: Not Given Home Medications ?Medication ?Instructions ?Recorded ?Confirmed ?Last Taken ?Type ferrous sulfate 325 mg (65 mg 325 mg PO DAILY 05/11/20 09/20/24 09/16/24 History iron) tablet,delayed release cyanocobalamin (vitamin B-12) 1,000 mcg PO DAILY 10/1709/20/24 09/16/24 History 1,000 mcg tablet midodrine 5 mg tablet 5 mg PO DAILY PRN Hypotensio n 03/25/23 09/20/24 05/18/24 History acetaminophen 500 mg capsule 1,000 mg PO Q8H PRN Pain 08/10/23 09/20/24 09/16/24 History (Mapap (acetaminophen)) fluticasone propionate 50 1 spray intranasal DAILY PRN 08/10/23 09/20/24 05/18/24 History mcg/actuation nasal Allergy Symptoms spray,suspension [id number] 45 mg-folic 1 cap PO DAILY 07/1309/20/24 09/16/24 History acid 800 mcg-vit K 120 mcg capsule (Bariatric Multivitamins) parenteral amino acid 15% no.5 15 0.5 ea IV MOWEFR@090 0 08/10/23 09/20/24 06/02/24 History % combination no.5 intravenous solution (Clinisol SF) zinc acetate 50 mg (zinc) capsule 100 mg PO DAILY 11/0409/20/24 09/16/24 History ergocalciferol (vitamin D2) 1,250 1,250 mcg PO PLEITEZ@0900 06/04/24 09/20/24 09/16/24 History mcg (50,000 unit) capsule (Vitamin D2) meclizine 12.5 mg tablet 12.5 mg PO TID PRN Nausea An d 06/04/24 09/20/24 06/04/24 History Vomiting omeprazole 40 mg capsule,delayed 40 mg PO BID@0630,163 0 06/04/24 09/20/24 09/16/24 History release clotrimazole-betamethasone 1 1 appl topical DAILY PRN Rash 09/20/24 09/20/24 Unknown History %-0.05 % topical cream Physical Exam Vital Signs: Last Vital Signs Temp 97.0 F 09/22/24 10:43 Pulse 78 09/22/24 10:43 Resp 18 09/22/24 10:43 BP 151/71 H 09/22/24 10:43 Pulse Ox 98 09/22/24 10:43 O2 Del Method Room Air 09/22/24 10:43 BMI result Body Mass Index 22.0 Const Other: Middle-aged female lying in bed in no distress Neck supple, no JVD Regular rate and rhythm, S1-S2 heard Regular breath sounds bilaterally, no wheezing or crackles appreciated Abdomen soft nontender, no guarding, no rigidity Patient is awake, alert and oriented to self, place, time and person ; no focal motor deficit Psych: Normal mood No pedal edema General: cooperative, comfortable, no acute distress, alert and awake Nutritional Appearance: average body habitus Orientation/consciousness: patient oriented x3 Limitations: No language barrier Resp Effort & Inspection: normal respiratory effort, able to speak in complete sentences, no respiratory distress and no use of accessory muscles Auscultation: clear to auscultation bilaterally Cardio Rate: regular rate GI Other: No distention, no guarding, no rebound, soft Neuro General: patient oriented x3, moves all extremities and CN's II-XI intact bilaterally Extrem Other: LUE fistula RUE mild hand swelling, no erythema, no tenderness Results Lab Results 09/22/24 06:21 09/22/24 06:21 Lab results: Chemistry 09/20/24 09/21/24 09/22/24 16:55 06:02 06:21 Sodium 138 138 137 Potassium 6.0 H* D 4.4 D 5.0 Carbon Dioxide 19 L 27 26 BUN 94 H 59 H 71 H Creatinine 6.29 H* 4.37 H* 5.73 H* Calcium 8.9 8.6 8.3 L Hematology 09/20/24 09/21/24 09/22/24 16:55 06:02 06:21 WBC 13.5 H 7.5 5.0 Hgb 9.6 L 7.9 L 6.6 L* Plt Count 265 222 169 Assessment and Plan (1) Acute blood loss anemia (ABLA): Status: Acute (2) GAVE (gastric antral vascular ectasia): Status: Acute (3) Esophagitis: Status: Acute (4) Gastric ulcer: Status: Acute Plan This has a 54-year-old female with pertinent history of ESRD on hemodialysis Friday/Friday/Friday, recurrent upper GI bleed due to 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 ESRD: usu MWF HD at [facility] Anemia: d/t GIB and epo def state Abd pain: d/t GIB MBD of CKD HTN: controlled now w meds REC: cont HD mwf; xfuse to keep Hb > 7.0; track K level; GI eval; DDAVP if active bleeding Procedures Date of Service Date of Service: 09/22/24
[2024-09-22] MEDS: Throat Lozenge, Medicated LOZENGE 1 LOZENGE MUCOUS MEM ×2 (11:15→17:41)
[2024-09-22] MEDS: Sucralfate Oral Suspension 1 GM/10 ML ORAL.SUSP PO ×3 (11:15→20:29)
--- NOTE | 2024-09-22 13:24 | MHC.CM.PN ---
Per rounds, pt to have endoscopy today, CM to follow for DC needs.
[2024-09-22 13:38] LABS: Hematocrit 28.4 % (37.0-47.0); Hemoglobin 9.5 g/dl (12.0-16.0)
[2024-09-23 03:54] VITALS: BP 124/59; PULSE 75; RESP 15; TEMP 36.2; O2SAT 97
[2024-09-23] MEDS: Pantoprazole Sodium 80 MG in 0.9 % Sodium Chloride 80 ML 10 MG IV ×3 (04:52→23:53)
[2024-09-23 07:17] VITALS: BP 104/58; PULSE 76; RESP 19; TEMP 36.7; O2SAT 97
[2024-09-23 07:43] LABS: Hematocrit 29.4 % (37.0-47.0); Hemoglobin 9.8 g/dl (12.0-16.0); Mean Corpuscular HGB Conc 33.3 g/dl (31.0-35.0); Mean Corpuscular Hemoglobin 30.9 pg (27.0-33.0); Mean Corpuscular Volume 92.7 fL (80.0-98.0); NRBC Abs Auto 0.000 X10*3/uL (0.0-0.012); NRBC Pct Auto 0.0 /100WBC (0.0-0.2); Platelet Count 178 X10*3/uL (160-400); Red Blood Count 3.17 X10*6/uL (4.20-5.50); White Blood Count 5.4 X10*3/uL (4.8-10.8)
[2024-09-23 07:56] LABS: Anion Gap 12 (12-20); Blood Urea Nitrogen 25 mg/dL (9-16); Calcium 8.4 mg/dL (8.4-10.2); Carbon Dioxide 30 mmol/L (22-29); Chloride 96 mmol/L (96-108); Creatinine Clr Calc Pharmacy 15.0; Estimated Glomerular Filt Rate 12; Potassium 4.1 mmol/L (3.3-5.1); Sodium 134 mmol/L (135-145)
[2024-09-23] MEDS: Ferrous Sulfate 324 MG TABLET.DR PO (08:13)
[2024-09-23] MEDS: Sucralfate Oral Suspension 1 GM/10 ML ORAL.SUSP PO ×4 (08:13→20:56)
[2024-09-23] MEDS: 0.9 % Sodium Chloride Flush 3 ML SYRINGE IVFLUSH ×3 (08:14→20:56)
--- NOTE | 2024-09-23 08:31 | HO.POSTANES ---
Post Anesthesia Evaluation Post Anesthesia Evaluation Date of Service: 09/23/24 Vital Signs: Vital Signs Temp Pulse Resp BP Pulse Ox O2 Del Method 09/23/24 07:17 98.0 F 76 19 104/58 L 97 Room Air 09/23/24 03:54 97.2 F 75 15 124/59 L 97 Room Air 09/22/24 23:57 98.0 F 79 16 96/52 L 97 Room Air Anesthesia: General Mental Status: Awake Pain Control: Satisfactory Nausea/Vomiting: None Hydration: Adequate Anesthesia-Related Issues: No Anes. Related Issues
[2024-09-23 11:13] VITALS: BP 88/52
[2024-09-23 11:45] VITALS: BP 90/54; PULSE 72; RESP 19; TEMP 36.3; O2SAT 99
--- NOTE | 2024-09-23 12:24 | P.PNIM_ITS ---
Subjective Subjective Date of Service: 09/23/24 Interval History: seen and examined this morning follow up for anemia s/p EGD 09/22 No abdominal, feeling well this morning Review of Systems Review of Systems: Yes all other systems are reviewed and are negative Constitutional Constitutional: Denies chills and Denies fever(s) Cardiovascular Cardiovascular: Denies chest pain, Denies palpitations and Denies dyspnea Respiratory Respiratory: Denies cough and Denies dyspnea Gastrointestinal Gastrointestinal: Denies abdominal pain Endocrine Endocrine: Denies palpitations Physical Exam 2 Vital Signs: Vital Signs: Last Vital Signs Temp 97.3 F 09/23/24 11:45 Pulse 72 09/23/24 11:45 Resp 19 09/23/24 11:45 BP 90/54 L 09/23/24 11:45 Pulse Ox 99 09/23/24 11:45 O2 Del Method Room Air 09/23/24 11:45 BMI result Body Mass Index 22.0 Const: General: cooperative, comfortable, no acute distress, alert and awake Nutritional Appearance: average body habitus Orientation/consciousness: p atient oriented x3 Resp: Effort & Inspection: normal respiratory effort, able to speak in complete sentences, no respiratory distress and no use of accessory muscles A uscultation: clear to auscultation bilaterally Cardio: Rate: regular rate GI: Other: No distention, no guarding, no rebound, soft Neuro: General: patient oriented x3, moves all extremities and CN's II-XI intact bilaterally Extrem: Other: LUE fistula RUE mild hand swelling improving, no erythema, no tenderness Objective Data Active Medications Acetaminophen (Acetaminophen 325 Mg Tablet) 650 mg PO Q6H PRN PRN Reason: Pain, Mild 1-3,fever,headache Last Admin: 09/23/24 11:07 Dose: 650 mg Documented By: GLORIA Benzocaine (Throat Lozenge, Medicated Lozenge) 1 lozenge MUCOUS MEM Q2H PRN PRN Reason: Sore Throat Last Admin: 09/22/24 17:41 Dose: 1 lozenge Documented By: GLORIA Calcium Carbonate (Calcium Carbonate 750 Mg Tab.Chew) 750 mg PO Q4H PRN PRN Reason: Heartburn Carvedilol (Carvedilol 6.25 Mg Tablet) 6.25 mg PO BID [facility]; Protocol Last Admin: 09/23/24 08:14 Dose: 6.25 mg Documented By: GLORIA Cyanocobalamin (Cyanocobalamin (Vitamin B-12) 1,000 Mcg Tablet) 1,000 mcg PO DAILY [facility] Last Admin: 09/23/24 08:14 Dose: 1,000 mcg Documented By: GLORIA Diphenhydramine HCl (Diphenhydramine Hcl 25 Mg Capsule) 25 mg PO Q6H PRN PRN Reason: iching Last Admin: 09/23/24 08:19 Dose: 25 mg Documented By: GLORIA Ergocalciferol (Ergocalciferol (Vitamin D2) 1,250 Mcg Capsule) 1,250 mcg PO PLEITEZ@0900 [facility] Escitalopram Oxalate (Escitalopram Oxalate 10 Mg Tablet) 10 mg PO DAILY [facility] Last Admin: 09/23/24 08:14 Dose: 10 mg Documented By: GLORIA Ferrous Sulfate (Ferrous Sulfate 324 Mg Tablet.Dr) 324 mg PO DAILY [facility] Last Admin: 09/23/24 08:13 Dose: 324 mg Documented By: GLORIA Fluticasone Propionate (Fluticasone Propionate Nasal 16 Gm [place]) 1 spray NOSTRIL-B DAILY PRN PRN Reason: Allergy Symptoms Gabapentin (Gabapentin 400 Mg Capsule) 400 mg PO BID [facility] Last Admin: 09/23/24 08:14 Dose: 400 mg Documented By: GLORIA Pantoprazole Sodium 80 mg/ (Sodium Chloride) 100 mls @ 10 mls/hr IV .Q10H [facility] Stop: 09/25/24 08:59 Last Admin: 09/23/24 04:52 Dose: 8 mg/hr, 10 mls/hr Documented By: MARCO Magnesium Hydroxide (Milk Of Magnesia 30 Ml Oral.Susp) 30 ml PO DAILY PRN PRN Reason: Constipation Meclizine HCl (Meclizine Hcl 12.5 Mg Tablet) 12.5 mg PO TID PRN PRN Reason: Nausea and Vomiting Melatonin (Melatonin 3 Mg Tablet) 6 mg PO BEDTIME PRN PRN Reason: Insomnia Midodrine (Midodrine Hcl 5 Mg Tablet) 5 mg PO DAILY PRN PRN Reason: Hypotension Last Admin: 09/23/24 11:22 Dose: 5 mg Documented By: GLORIA Multivitamins/Vitamin C (Multivitamin Tablet) 1 tab PO DAILY [facility] Last Admin: 09/23/24 08:14 Dose: 1 tab Documented By: GLORIA Naloxone HCl (Naloxone Hcl 0.4 Mg/Ml Vial) 0.04 mg IVPUSH Q5M PRN PRN Reason: Excessive sedation or RR < 8 Nystatin/Triamcinolone Acetonide (Nystatin/Triamcinolone Cream 15 Gm Tube) 1 appl TOPICAL DAILY PRN PRN Reason: Rash Ondansetron HCl (Ondansetron Hcl 4 Mg/2 Ml Vial) 4 mg IVPUSH Q8H PRN PRN Reason: Nausea and Vomiting Last Admin: 09/21/24 18:01 Dose: 4 mg Documented By: TOMMY Ondansetron HCl (Ondansetron Odt 4 Mg Tab.Rapdis) 4 mg TRANSLINGU Q8H PRN PRN Reason: Nausea and Vomiting Pyridoxine HCl (Pyridoxine Hcl (Vitamin B6) 50 Mg Tablet) 50 mg PO DAILY [facility] Last Admin: 09/23/24 08:14 Dose: 50 mg Documented By: GLORIA Sodium Chloride (0.9 % Sodium Chloride Flush 3 Ml Syringe) 3 ml IVFLUSH QSHIFT [facility] Last Admin: 09/23/24 08:14 Dose: 3 ml Documented By: GLORIA Sucralfate (Sucralfate Oral Suspension 1 Gm/10 Ml Oral.Susp) 1 gm PO QIDACHS [facility] Last Admin: 09/23/24 11:17 Dose: 1 gm Documented By: GLORIA Thiamine HCl (Thiamine Hcl 100 Mg Tablet) 100 mg PO DAILY [facility] Last Admin: 09/23/24 08:14 Dose: 100 mg Documented By: GLORIA Tramadol HCl (Tramadol Hcl 50 Mg Tablet) 50 mg PO Q6H PRN PRN Reason: Pain, Moderate(Pain Scale 4-6) Last Admin: 09/23/24 03:30 Dose: 50 mg Documented By: MARCO Zinc Sulfate (Zinc Sulfate 220 Mg Capsule) 220 mg PO DAILY [facility] Last Admin: 09/23/24 08:14 Dose: 220 mg Documented By: GLORIA Labs 09/23/24 07:02 09/23/24 07:02 Labs: Laboratory Results - last 24 hr 09/22/24 09/23/24 07:51 07:02 MCV 92.7 MCH 30.9 MCHC 33.3 RDW 15.4 Plt Count 178 MPV 9.7 Absolute Nucleated RBC 0.000 Nucleated RBC % (auto) 0.0 Anion Gap 12 Estim Creat Clear Calc 15.0 Estimated GFR 12 Random Glucose 83 Calcium 8.4 Crossmatch See Detail Assessment and Plan (1) Hypertensive emergency: Status: Acute (2) Acute GI bleeding: Status: Acute (3) Gastric ulcer: Status: Acute (4) Acute blood loss anemia (ABLA): Status: Acute Plan This has a 54-year-old female with pertinent history of ESRD on hemodialysis Friday/Friday/Friday, recurrent upper GI bleed due to 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 Acute blood loss anemia (on anemia of chronic dz) due to Acute upper GI bleed, recurrent: no bleeding overnight previous EGD on 05/20/2024 with anastomotic ulcers without bleeding and gastritis s/p 2U RBC 09/22 s/p EGD 09/22 showing Gastritis, Numerous anastomotic ulcers with 2 ulcers with high risk stigmata (epi, thermal therapy, hemospray) Tolerating clear liquids, advanced to full liquids Continue IV PPI x 72 hours carafate QID, avoid NSAIDs, reinforce PPI compliance We will need repeat EGD in 4 weeks to assess for healing Hypertensive emergency and Severe hyperkalemia due to missed hemodialysis in a patient with ESRD M/W/F: Resolved with urgent dialysis BP up and down; on midodrine daily prn follow bp closely Nephrology following Mixed hyperlipidemia: statin Mood Continue baseline medications DVT prophylaxis: SCDs Full code Requires ongoing inpatient stay for management of evaluation of GI bleed, monitoring of hemodynamics and H&H (as above), which is not possible in a lesser acute setting Quality Stroke Does the patient have a stroke diagnosis?: No VTE Prior VTE?: No VTE Risk Level:: Medical - moderate - high VTE Device Contraindication: N/A - Device Ordered VTE Drug Contraindication: Treatment Not Indicated
--- NOTE | 2024-09-23 12:34 | P.CDIM_ITS ---
PROVIDER RESPONSE TEXT: To clarify, the appropriate diagnosis supported by the clinical indicators: Acute blood loss anemia with baseline chronic anemia: chronic dz QUERY TEXT: PHYSICIAN'S DOCUMENTATION REQUEST Date of Query: 09/23/2024 10:49 AM EDT Patient Name: Meliza Olguin Admit Date: 09/20/2024 Dear Briana PARKER, A review of the medical record indicates additional documentation may be needed. Please review below and update the documentation accordingly. Clinical Indicators: H&H on 09/20/24: 9.6/28.8 H&H on 09/22/24: 6.6/19.9 patient received 2 units PRBC total during EGD procedure Based on the above, could you clarify which of the following is the most likely type of anemia you are evaluating, treating, and/or monitoring? Acute blood loss anemia Acute blood loss anemia with baseline chronic anemia (specify type) Anemia of chronic disease indicate if neoplastic disease, CKD, or other Chronic iron deficiency anemia due to blood loss Vitamin B12 deficiency anemia indicate etiology, such as intrinsic factor deficiency, malabsorption, transcobalamin II deficiency, dietary, etc Folate deficiency anemia indicate etiology, such as dietary, drug-induced, etc Protein deficiency anemia Other (explain) Clinically unable to determine (explain) Thank you, Yin Brown RN Use of terms such as suspected, likely, concern for, or probable (associated with a specific diagnosis that is being evaluated, monitored, or treated as if it exists) are acceptable and can be coded in the inpatient setting, when documented at the time of discharge. Please use your independent medical judgment in providing your response. THIS QUERY IS PART OF THE PERMANENT MEDICAL RECORD
[2024-09-23 15:14] VITALS: BP 118/56; PULSE 74; RESP 18; TEMP 36.6; O2SAT 97
[2024-09-23 17:05] LABS: Hematocrit 27.1 % (37.0-47.0); Hemoglobin 9.4 g/dl (12.0-16.0)
[2024-09-23 20:00] VITALS: BP 120/56; PULSE 72; RESP 16; TEMP 36.7; O2SAT 98
[2024-09-24] VITALS (7 sets, daily range): BP systolic 110–142; BP diastolic 56–75; PULSE 71–80; RESP 16–20; TEMP 36.4–36.8; O2SAT 98–100
[2024-09-24] MEDS: oxyCODONE HCl Immed Release 5 MG TABLET PO (01:42)
[2024-09-24 07:07] LABS: Hematocrit 28.6 % (37.0-47.0); Hemoglobin 9.9 g/dl (12.0-16.0); Mean Corpuscular HGB Conc 34.6 g/dl (31.0-35.0); Mean Corpuscular Hemoglobin 31.8 pg (27.0-33.0); Mean Corpuscular Volume 92.0 fL (80.0-98.0); NRBC Abs Auto 0.000 X10*3/uL (0.0-0.012); NRBC Pct Auto 0.0 /100WBC (0.0-0.2); Platelet Count 190 X10*3/uL (160-400); Red Blood Count 3.11 X10*6/uL (4.20-5.50); White Blood Count 4.3 X10*3/uL (4.8-10.8)
[2024-09-24 07:31] LABS: Anion Gap 17 (12-20); Blood Urea Nitrogen 30 mg/dL (9-16); Calcium 8.8 mg/dL (8.4-10.2); Carbon Dioxide 25 mmol/L (22-29); Chloride 91 mmol/L (96-108); Creatinine Clr Calc Pharmacy 12.3; Estimated Glomerular Filt Rate 10; Potassium 4.5 mmol/L (3.3-5.1); Sodium 128 mmol/L (135-145)
--- NOTE | 2024-09-24 07:32 | P.PNNP_ITS ---
Subjective Subjective Date of Service: 09/23/24 Interval history: seen and examined this morning Physical Exam 2 Vital Signs: Vital Signs: Last Vital Signs Temp 97.6 F 09/24/24 03:59 Pulse 72 09/24/24 03:59 Resp 16 09/24/24 03:59 BP 116/69 09/24/24 03:59 Pulse Ox 98 09/24/24 03:59 O2 Del Method Room Air 09/24/24 03:59 BMI result Body Mass Index 22.0 Const: Other: Middle-aged female lying in bed in no distress Neck supple, no JVD Regular rate and rhythm, S1-S2 heard Regular breath sounds bilaterally, no wheezing or crackles appreciated Abdomen soft nontender, no guarding, no rigidity Patient is awake, alert and oriented to self, place, time and person ; no focal motor deficit Psych: Normal mood No pedal edema General: cooperative, comfortable, no acute distress, alert and awake N utritional Appearance: average body habitus Orientation/consciousness: p atient oriented x3 Limitations: No language barrier Resp: Effort & Inspection: normal respiratory effort, able to speak in complete sentences, no respiratory distress and no use of accessory muscles A uscultation: clear to auscultation bilaterally Cardio: Rate: regular rate GI: Other: No distention, no guarding, no rebound, soft Neuro: General: patient oriented x3, moves all extremities and CN's II-XI intact bilaterally Extrem: Other: LUE fistula RUE mild hand swelling, no erythema, no tenderness Objective Data Labs 09/24/24 06:37 09/24/24 06:37 Labs: Laboratory Results - last 24 hr 09/22/24 09/23/24 09/23/24 07:51 07:02 16:57 WBC 5.4 RBC 3.17 L D Hgb 9.8 L 9.4 L Hct 29.4 L 27.1 L MCV 92.7 MCH 30.9 MCHC 33.3 RDW 15.4 Plt Count 178 MPV 9.7 Absolute Nucleated RBC 0.000 Nucleated RBC % (auto) 0.0 Sodium 134 L Potassium 4.1 Chloride 96 Carbon Dioxide 30 H Anion Gap 12 BUN 25 H Creatinine 3.88 H Estim Creat Clear Calc 15.0 Estimated GFR 12 Random Glucose 83 Calcium 8.4 Blood Type O Positive Antibody Screen NEGATIVE Crossmatch See Detail 09/24/24 06:37 WBC 4.3 L RBC 3.11 L Hgb 9.9 L Hct 28.6 L MCV 92.0 MCH 31.8 MCHC 34.6 RDW 14.2 Plt Count 190 MPV 9.8 Absolute Nucleated RBC 0.000 Nucleated RBC % (auto) 0.0 Sodium 128 L Potassium 4.5 Chloride 91 L Carbon Dioxide 25 Anion Gap 17 BUN 30 H Creatinine 4.74 H* Estim Creat Clear Calc 12.3 Estimated GFR 10 Random Glucose 96 Calcium 8.8 Blood Type Antibody Screen Crossmatch Procedures Date of Service Date of Service: 09/24/24 Assessment & Plan Assessment and plan (1) Acute blood loss anemia (ABLA): Status: Acute (2) GAVE (gastric antral vascular ectasia): Status: Acute (3) Esophagitis: Status: Acute (4) Gastric ulcer: Status: Acute Plan This has a 54-year-old female with pertinent history of ESRD on hemodialysis Friday/Friday/Friday, recurrent upper GI bleed due to 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 ESRD: usu MWF HD at [facility] HDU Anemia: d/t GIB and epo def state Abd pain: d/t GIB MBD of CKD HTN: controlled now w meds REC: cont HD mwf; xfuse to keep Hb > 7.0; track K level; GI eval; DDAVP if active bleeding will follow w team Time Spent With Patient Time: Total time managing care of this patient today ____ minutes. Progress Note: Quality Stroke Does the patient have a stroke diagnosis?: No
[2024-09-24] MEDS: Ferrous Sulfate 324 MG TABLET.DR PO (08:21)
[2024-09-24] MEDS: Sucralfate Oral Suspension 1 GM/10 ML ORAL.SUSP PO ×4 (08:22→20:38)
[2024-09-24] MEDS: 0.9 % Sodium Chloride Flush 3 ML SYRINGE IVFLUSH (08:23)
[2024-09-24] MEDS: Pantoprazole Sodium 80 MG in 0.9 % Sodium Chloride 80 ML 10 MG IV ×2 (11:57→21:59)
--- NOTE | 2024-09-24 12:28 | P.PNIM_ITS ---
Subjective Subjective Date of Service: 09/24/24 Interval History: Seen and examined this morning Follow-up for anemia No overnight events No abdominal pain, no overt bleeding Constitutional Constitutional: Denies chills and Denies fever(s) Cardiovascular Cardiovascular: Denies chest pain, Denies palpitations and Denies dyspnea Respiratory Respiratory: Denies cough and Denies dyspnea Endocrine Endocrine: Denies palpitations Physical Exam 2 Vital Signs: Vital Signs: Last Vital Signs Temp 98.1 F 09/24/24 11:21 Pulse 72 09/24/24 11:21 Resp 20 09/24/24 11:21 BP 133/75 09/24/24 11:21 Pulse Ox 99 09/24/24 11:21 O2 Del Method Room Air 09/24/24 11:21 BMI result Body Mass Index 22.0 Const: General: cooperative, comfortable, no acute distress, alert and awake Nutritional Appearance: average body habitus Orientation/consciousness: p atient oriented x3 Resp: Effort & Inspection: normal respiratory effort, able to speak in complete sentences, no respiratory distress and no use of accessory muscles A uscultation: clear to auscultation bilaterally Cardio: Rate: regular rate GI: Other: No distention, no guarding, no rebound, soft Neuro: General: patient oriented x3, moves all extremities and CN's II-XI intact bilaterally Extrem: Other: LUE fistula RUE mild hand swelling improving, no erythema, no tenderness Objective Data Active Medications Acetaminophen (Acetaminophen 325 Mg Tablet) 650 mg PO Q6H PRN PRN Reason: Pain, Mild 1-3,fever,headache Last Admin: 09/24/24 11:59 Dose: 650 mg Documented By: BENITO Benzocaine (Throat Lozenge, Medicated Lozenge) 1 lozenge MUCOUS MEM Q2H PRN PRN Reason: Sore Throat Last Admin: 09/22/24 17:41 Dose: 1 lozenge Documented By: GLORIA Calcium Carbonate (Calcium Carbonate 750 Mg Tab.Chew) 750 mg PO Q4H PRN PRN Reason: Heartburn Carvedilol (Carvedilol 6.25 Mg Tablet) 6.25 mg PO BID GERARDO; Protocol Last Admin: 09/24/24 08:22 Dose: 6.25 mg Documented By: BENITO Cyanocobalamin (Cyanocobalamin (Vitamin B-12) 1,000 Mcg Tablet) 1,000 mcg PO DAILY [facility] Last Admin: 09/24/24 08:21 Dose: 1,000 mcg Documented By: BENITO Diphenhydramine HCl (Diphenhydramine Hcl 25 Mg Capsule) 25 mg PO Q6H PRN PRN Reason: iching Last Admin: 09/24/24 08:28 Dose: 25 mg Documented By: BENITO Ergocalciferol (Ergocalciferol (Vitamin D2) 1,250 Mcg Capsule) 1,250 mcg PO PLEITEZ@0900 [facility] Escitalopram Oxalate (Escitalopram Oxalate 10 Mg Tablet) 10 mg PO DAILY [facility] Last Admin: 09/24/24 08:22 Dose: 10 mg Documented By: BENITO Ferrous Sulfate (Ferrous Sulfate 324 Mg Tablet.Dr) 324 mg PO DAILY [facility] Last Admin: 09/24/24 08:21 Dose: 324 mg Documented By: BENITO Fluticasone Propionate (Fluticasone Propionate Nasal 16 Gm [place]) 1 spray NOSTRIL-B DAILY PRN PRN Reason: Allergy Symptoms Gabapentin (Gabapentin 400 Mg Capsule) 400 mg PO BID [facility] Last Admin: 09/24/24 08:21 Dose: 400 mg Documented By: BENITO Pantoprazole Sodium 80 mg/ (Sodium Chloride) 100 mls @ 10 mls/hr IV .Q10H [facility] Stop: 09/25/24 08:59 Last Admin: 09/24/24 11:57 Dose: 8 mg/hr, 10 mls/hr Documented By: BENITO Magnesium Hydroxide (Milk Of Magnesia 30 Ml Oral.Susp) 30 ml PO DAILY PRN PRN Reason: Constipation Meclizine HCl (Meclizine Hcl 12.5 Mg Tablet) 12.5 mg PO TID PRN PRN Reason: Nausea and Vomiting Last Admin: 09/24/24 08:24 Dose: 12.5 mg Documented By: BENITO Melatonin (Melatonin 3 Mg Tablet) 6 mg PO BEDTIME PRN PRN Reason: Insomnia Midodrine (Midodrine Hcl 5 Mg Tablet) 5 mg PO DAILY PRN PRN Reason: Hypotension Last Admin: 09/23/24 11:22 Dose: 5 mg Documented By: GLORIA Multivitamins/Vitamin C (Multivitamin Tablet) 1 tab PO DAILY [facility] Last Admin: 09/24/24 08:22 Dose: 1 tab Documented By: BENITO Naloxone HCl (Naloxone Hcl 0.4 Mg/Ml Vial) 0.04 mg IVPUSH Q5M PRN PRN Reason: Excessive sedation or RR < 8 Nystatin/Triamcinolone Acetonide (Nystatin/Triamcinolone Cream 15 Gm Tube) 1 appl TOPICAL DAILY PRN PRN Reason: Rash Ondansetron HCl (Ondansetron Hcl 4 Mg/2 Ml Vial) 4 mg IVPUSH Q8H PRN PRN Reason: Nausea and Vomiting Last Admin: 09/23/24 16:10 Dose: 4 mg Documented By: GLORIA Ondansetron HCl (Ondansetron Odt 4 Mg Tab.Rapdis) 4 mg TRANSLINGU Q8H PRN PRN Reason: Nausea and Vomiting Pyridoxine HCl (Pyridoxine Hcl (Vitamin B6) 50 Mg Tablet) 50 mg PO DAILY [facility] Last Admin: 09/24/24 08:21 Dose: 50 mg Documented By: BENITO Sodium Chloride (0.9 % Sodium Chloride Flush 3 Ml Syringe) [facility] Last Admin: 09/24/24 08:23 Dose: 3 ml Documented By: BENITO Sucralfate (Sucralfate Oral Suspension 1 Gm/10 Ml Oral.Susp) 1 gm PO QIDACHS [facility] Last Admin: 09/24/24 11:57 Dose: 1 gm Documented By: BENITO Thiamine HCl (Thiamine Hcl 100 Mg Tablet) 100 mg PO DAILY [facility] Last Admin: 09/24/24 08:21 Dose: 100 mg Documented By: BENITO Tramadol HCl (Tramadol Hcl 50 Mg Tablet) 50 mg PO Q6H PRN PRN Reason: Pain, Moderate(Pain Scale 4-6) Last Admin: 09/24/24 08:21 Dose: 50 mg Documented By: BENITO Zinc Sulfate (Zinc Sulfate 220 Mg Capsule) 220 mg PO DAILY [facility] Last Admin: 09/24/24 08:21 Dose: 220 mg Documented By: BENITO Labs 09/24/24 06:37 09/24/24 06:37 Labs: Laboratory Results - last 24 hr 09/22/24 09/24/24 07:51 06:37 MCV 92.0 MCH 31.8 MCHC 34.6 RDW 14.2 Plt Count 190 MPV 9.8 Absolute Nucleated RBC 0.000 Nucleated RBC % (auto) 0.0 Anion Gap 17 Estim Creat Clear Calc 12.3 Estimated GFR 10 Random Glucose 96 Calcium 8.8 Blood Type O Positive Antibody Screen NEGATIVE Crossmatch See Detail Assessment and Plan (1) Acute GI bleeding: Status: Acute (2) Gastritis: Status: Acute Plan This has a 54-year-old female with pertinent history of ESRD on hemodialysis Friday/Friday/Friday, recurrent upper GI bleed due to 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 Acute blood loss anemia (on anemia of chronic dz) due to Acute upper GI bleed, recurrent: no bleeding overnight previous EGD on 05/20/2024 with anastomotic ulcers without bleeding and gastritis s/p 2U RBC 09/22 s/p EGD 09/22 showing Gastritis, Numerous anastomotic ulcers with 2 ulcers with high risk stigmata (epi, thermal therapy, hemospray) Tolerating clear liquids, advanced to full liquids Continue IV PPI x 72 hours to end 09/25 carafate QID, avoid NSAIDs, reinforce PPI compliance We will need repeat EGD in 4 weeks to assess for healing Hypertensive emergency and Severe hyperkalemia due to missed hemodialysis in a patient with ESRD M/W/F: Resolved with urgent dialysis BP up and down; on midodrine daily prn follow bp closely Nephrology following Mixed hyperlipidemia: statin Mood Continue baseline medications DVT prophylaxis: SCDs Full code Requires ongoing inpatient stay for management of evaluation of GI bleed, monitoring of hemodynamics and H&H (as above), which is not possible in a lesser acute setting Quality Stroke Does the patient have a stroke diagnosis?: No VTE Prior VTE?: No VTE Risk Level:: Medical - moderate - high VTE Device Contraindication: N/A - Device Ordered VTE Drug Contraindication: Treatment Not Indicated
--- NOTE | 2024-09-24 12:38 | P.DS_ITS ---
DS: Providers Provider Date of Service: 09/25/24 Date of admission: 09/20/24 18:55 Date of discharge: 09/25/24 Primary care physician: Rozina Lang MD Consults: 09/20/24 19:48 Consult to Gastroenterology Routine Consulting Provider: Sam Urban Reason for consultation: upper gi bleed 09/20/24 19:49 Consult to Nephrology Routine Consulting Provider: Vita Swain Reason for consultation: ESRD on HD 09/21/24 17:41 Consult to Gastroenterology Routine Consulting Provider: [facility] Reason for consultation: recurrent gi bleeding Has provider been notified: No DS: Diagnosis Discharge Diagnosis (1) Acute GI bleeding: Status: Acute (2) Gastritis: Status: Acute DS: Summary Hospital Course Hospital Course: From H&P on the day of admission This has a 54-year-old female with pertinent history of ESRD on hemodialysis Friday/Friday/Friday, recurrent upper GI bleed due to 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 Patient states she started having bright red blood in stool, multiple episodes on the day of presentation. Also possibly had 1 episode of coffee-ground emesis. Patient was having generalized abdominal discomfort which is now resolved. She does have history of recurrent GI bleed due to marginal ulcer from gastric bypass surgery. Patient states she has not taken her PPI because the pharmacy did not fill it. No fever, chills. Patient missed her dialysis session on the day of presentation and is complaining of headache. No chest pain, palpitations, changes in urinary habits. In the emergency department, patient's blood pressure found to be 238/184 and labs reveal potassium of 6. Nephrology was consulted from the ER for urgent dialysis. Patient was given temporizing measures and Lokelma for hyperkalemia and given IV Protonix. Acute blood loss anemia (on anemia of chronic dz) due to Acute upper GI bleed, recurrent: previous EGD on 05/20/2024 with anastomotic ulcers without bleeding and gastritis. Required transfusion of 2U RBC 09/22. Was seen by GI and underwent EGD 09/22 showing Gastritis, Numerous anastomotic ulcers with 2 ulcers with high risk stigmata (epi, thermal therapy, hemospray). * Esophagus:? Normal mucosa noted in the entire esophagus. The Z line was at 46 cm. * Stomach:? Severe erythema and edema was noted in the gastric folds. Total of 6 clean ulcers meauring 5-15 mm were noted around the anastomosis on the jejunal side. Two previously placed Endoclips were noted at the site of another healing ulcer at 5 o clock around the anastomosis line. Out of the 6 ulcers two ulcers had stigmata of recent bleed and the rest were white based. The larger 15 mm ulcer at 10 o clock at the anastomosis line had nonbleeding visible vessel ([place] II A). Thee 2nd ulcer measuring 6 mm had spontaneous oozing ([place] IB). Epinephrine was injected and the ulcers were cauterized with gold probe for complete hemostasis. Hemo spray was also applied to reinforce hemostasis. * Small bowel:? Both the small bowel limbs appeared endoscopically normal, without any ulceration. Diet was slowly advanced. No recurrent bleeding noted. GI recommended to continue IV PPI x 72 hours to end 09/25 and to continue carafate QID, avoid NSAIDs, and reinforce PPI compliance. will need repeat EGD in 4 weeks to assess for healing Hypertensive emergency and Severe hyperkalemia due to missed hemodialysis in a patient with ESRD M/W/F. Resolved with urgent d ialysis. Last dialysis received September 24. To continue outpatient dialysis on current Friday schedule Time Attestation Discharge Coordination Time (in mins): 35 Quality: Safe Use of Opioids Does Pt have an Active Cancer Diagnosis on the Problem List?: No Quality: Stroke Does the patient have a stroke diagnosis?: No Physical Exam Vital Signs: Vital Signs: Last Vital Signs Temp 98.1 F 09/24/24 11:21 Pulse 72 09/24/24 11:21 Resp 20 09/24/24 11:21 BP 133/75 09/24/24 11:21 Pulse Ox 99 09/24/24 11:21 O2 Del Method Room Air 09/24/24 11:21 BMI result Body Mass Index 22.0 DS: Data Data Completed and Pending Completed studies during hospitalization [Text1]: Procedures Control Bleeding in Gastrointestinal Tract, Via Natural or Artificial Opening Endoscopic (08/09/24) Excision of Stomach, Pylorus, Via Natural or Artificial Opening Endoscopic, Diagnostic (05/19/24) Excision of Stomach, Via Natural or Artificial Opening Endoscopic, Diagnostic (08/09/24) Inspection of Upper Intestinal Tract, Via Natural or Artificial Opening Endoscopic (04/24/24) Introduction of Mineral-based Topical Hemostatic Agent into Upper GI, Via Natural or Artificial Opening Endoscopic, [employer] 6 (11/19/23) Performance of Urinary Filtration, Intermittent, Less than 6 Hours Per Day (08/09/24) Transfusion of Nonautologous Red Blood Cells into Peripheral Vein, Percutaneous Approach (05/19/24) Labs on day of discharge: Laboratory Results - last 24 hr 09/22/24 09/23/24 09/24/24 07:51 16:57 06:37 WBC 4.3 L RBC 3.11 L Hgb 9.4 L 9.9 L Hct 27.1 L 28.6 L MCV 92.0 MCH 31.8 MCHC 34.6 RDW 14.2 Plt Count 190 MPV 9.8 Absolute Nucleated RBC 0.000 Nucleated RBC % (auto) 0.0 Sodium 128 L Potassium 4.5 Chloride 91 L Carbon Dioxide 25 Anion Gap 17 BUN 30 H Creatinine 4.74 H* Estim Creat Clear Calc 12.3 Estimated GFR 10 Random Glucose 96 Calcium 8.8 Blood Type O Positive Antibody Screen NEGATIVE Crossmatch See Detail Discharge Plan Discharge Discharge Diagnosis: acute blood loss anemia due to upper GI bleed Referrals: Rozina Nicole MD [Primary Care Provider, Internal Medicine] - 1 Week Discharge Medications: New sucralfate 100 mg/mL Suspension 1 g PO QIDACHS 28 Days Qty: 1000 0RF Continued thiamine HCl (vitamin B1) 100 mg tablet 100 mg PO DAILY 90 Days Qty: 90 0RF vitamin A 2,400 mcg capsule 2,400 mcg PO DAILY 90 Days Qty: 90 1RF carvedilol 6.25 mg tablet 6.25 mg PO BID 90 Days Qty: 180 1RF gabapentin 400 mg capsule 400 mg PO BID 90 Days Qty: 180 1RF pyridoxine (vitamin B6) 50 mg tablet 50 mg PO DAILY 90 Days Qty: 90 1RF citalopram 20 mg tablet 20 mg PO DAILY 90 Days Qty: 90 1RF melatonin 10 mg capsule 20 mg PO BEDTIME Qty: 90 0RF cyanocobalamin (vitamin B-12) 1,000 mcg Tablet 1,000 mcg PO DAILY clotrimazole-betamethasone 1-0.05 % cream 1 appl topical DAILY PRN (Reason: Rash) acetaminophen [Mapap (acetaminophen)] 500 mg capsule 1,000 mg PO Q8H PRN (Reason: Pain) Clinisol SF 15 % 15 % parenteral solution 0.5 ea IV MOWEFR@0900 Rx Instructions: DIALYSIS MEDICATION Bariatric Multivitamins 45 mg iron- 800 mcg-120 mcg Capsule 1 cap PO DAILY fluticasone propionate 50 mcg/actuation spray,suspension 1 spray intranasal DAILY PRN (Reason: Allergy Symptoms) Rx Instructions: administer into each nostril ondansetron 4 mg tablet,disintegrating 4 mg PO Q8H PRN (Reason: nausea and vomiting) Qty: 10 0RF zinc acetate 50 mg (zinc) Capsule 100 mg PO DAILY omeprazole 40 mg capsule,delayed release(DR/EC) 40 mg PO BID@0630,1630 meclizine 12.5 mg Tablet 12.5 mg PO TID PRN (Reason: Nausea And Vomiting) ergocalciferol (vitamin D2) [Vitamin D2] 1,250 mcg (50,000 unit) capsule 1,250 mcg PO PLEITEZ@0900 ferrous sulfate 325 mg (65 mg iron) tablet,delayed release (DR/EC) 325 mg PO DAILY midodrine 5 mg tablet 5 mg PO DAILY PRN (Reason: Hypotension) Discontinued sucralfate 100 mg/mL suspension 10 ml PO BID 14 Days Qty: 280 0RF Print Language: Bulgarian Care Plan Goals: See below Health Concerns: Hypertensive urgency-resolved with dialysis Hyperkalemia-resolved with dialysis Acute blood loss anemia due to acute upper GI bleeding Plan of Treatment: Carafate 10 ml QID Avoid NSAIDs. use PPI with open capsules and sucralfate as prescribed regularly, it to not miss/skip any doses. Repeat EGD in 4 weeks to assess for healing - call GI office to schedule appointment continue dialysis on regular [facility] schedule Assessment: Recurrent upper GI bleed/acute blood loss anemia status post blood transfusion an EGD
[2024-09-24] MEDS: Milk of Magnesia 30 ML ORAL.SUSP PO (15:13)
--- NOTE | 2024-09-24 16:05 | P.PNGI_ITS ---
Subjective Subjective Date of Service: 09/24/24 Interval History: Patient seen and evaluated at bedside. Reports no further abdominal pain, still has intermittent nausea. H&H stable. Looking forward to solid diet today. Critical Care Time (minutes): 0 Physical Exam 2 Exam: Exam: In no acute distress Abdomen soft, nontender Vital Signs: Vital Signs: Last Vital Signs Temp 97.7 F 09/24/24 15:34 Pulse 74 09/24/24 15:34 Resp 17 09/24/24 15:34 BP 137/73 09/24/24 15:34 Pulse Ox 100 09/24/24 15:34 O2 Del Method Room Air 09/24/24 15:34 BMI result Body Mass Index 22.0 Objective Data Labs 09/24/24 06:37 09/24/24 06:37 Labs: Laboratory Results - last 24 hr 09/23/24 09/24/24 16:57 06:37 WBC 4.3 L RBC 3.11 L Hgb 9.4 L 9.9 L Hct 27.1 L 28.6 L MCV 92.0 MCH 31.8 MCHC 34.6 RDW 14.2 Plt Count 190 MPV 9.8 Absolute Nucleated RBC 0.000 Nucleated RBC % (auto) 0.0 Sodium 128 L Potassium 4.5 Chloride 91 L Carbon Dioxide 25 Anion Gap 17 BUN 30 H Creatinine 4.74 H* Estim Creat Clear Calc 12.3 Estimated GFR 10 Random Glucose 96 Calcium 8.8 Procedures Date of Service Date of Service: 09/24/24 Progress Note: A&P Assessment and plan (1) Acute GI bleeding: Status: Acute (2) Anastomotic ulcer S/P gastric bypass: Status: Acute (3) Gastritis: Status: Acute Plan Had acute GI bleeding secondary to numerous anastomotic ulcers, including 2 high-risk ulcers with stigmata of recent bleeding. Status post EGD with hemostasis 09/22. Doing well. Plan: - Continue IV ppi drip x 72 hours total and then switch to PO PPI INDEFINITELY. Pt aware to OPEN CAPSULES and mix granules in applesauce or pudding for admistration. - OK for regular diet - Carafate 10 ml QID x 4 weeks - Avoid NSAIDs. - Repeat EGD in 4 weeks to assess for healing. Time Spent With Patient Time: Total time managing care of this patient today ____ minutes. Quality Stroke Does the patient have a stroke diagnosis?: No VTE Prior VTE?: No VTE Risk Level:: Medical - moderate - high VTE Device Contraindication: N/A - Device Ordered VTE Drug Contraindication: Treatment Not Indicated
--- NOTE | 2024-09-24 22:15 | P.PNNP_ITS ---
Subjective Subjective Date of Service: 09/24/24 Interval history: Seen and examined,evnets noted Physical Exam 2 Vital Signs: Vital Signs: Last Vital Signs Temp 98.2 F 09/24/24 19:26 Pulse 75 09/24/24 20:37 Resp 18 09/24/24 19:26 BP 126/64 09/24/24 20:37 Pulse Ox 98 09/24/24 19:26 O2 Del Method Room Air 09/24/24 19:26 BMI result Body Mass Index 22.0 Const: Other: Middle-aged female lying in bed in no distress Neck supple, no JVD Regular rate and rhythm, S1-S2 heard Regular breath sounds bilaterally, no wheezing or crackles appreciated Abdomen soft nontender, no guarding, no rigidity Patient is awake, alert and oriented to self, place, time and person ; no focal motor deficit Psych: Normal mood No pedal edema General: cooperative, comfortable, no acute distress, alert and awake N utritional Appearance: average body habitus Orientation/consciousness: p atient oriented x3 Limitations: No language barrier Resp: Effort & Inspection: normal respiratory effort, able to speak in complete sentences, no respiratory distress and no use of accessory muscles A uscultation: clear to auscultation bilaterally Cardio: Rate: regular rate GI: Other: No distention, no guarding, no rebound, soft Neuro: General: patient oriented x3, moves all extremities and CN's II-XI intact bilaterally Extrem: Other: LUE fistula RUE mild hand swelling, no erythema, no tenderness Objective Data Labs 09/24/24 06:37 09/24/24 06:37 Labs: Laboratory Results - last 24 hr 09/24/24 06:37 WBC 4.3 L RBC 3.11 L Hgb 9.9 L Hct 28.6 L MCV 92.0 MCH 31.8 MCHC 34.6 RDW 14.2 Plt Count 190 MPV 9.8 Absolute Nucleated RBC 0.000 Nucleated RBC % (auto) 0.0 Sodium 128 L Potassium 4.5 Chloride 91 L Carbon Dioxide 25 Anion Gap 17 BUN 30 H Creatinine 4.74 H* Estim Creat Clear Calc 12.3 Estimated GFR 10 Random Glucose 96 Calcium 8.8 Procedures Date of Service Date of Service: 09/24/24 Assessment & Plan Assessment and plan (1) Acute blood loss anemia (ABLA): Status: Acute (2) GAVE (gastric antral vascular ectasia): Status: Acute (3) Esophagitis: Status: Acute (4) Gastric ulcer: Status: Acute Plan This has a 54-year-old female with pertinent history of ESRD on hemodialysis Friday/Friday/Friday, recurrent upper GI bleed due to 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 ESRD: usu MWF HD at [facility] HDU Anemia: d/t GIB and epo def state Abd pain: d/t GIB MBD of CKD HTN: controlled now w meds REC: cont HD mwf; xfuse to keep Hb > 7.0; track K level; GI eval; DDAVP if active bleeding only ogt 30 mon HD today d/t HD RN had to do emergent case in ICU so she will get HD radha am and then possible d/c home will follow w team Time Spent With Patient Time: Total time managing care of this patient today ____ minutes. Progress Note: Quality Stroke Does the patient have a stroke diagnosis?: No
--- NOTE | 2024-09-25 02:33 | PC.NURSE ---
Pt has broken skin to upper right chest from scratching foam dsg applied.
[2024-09-25 03:23] VITALS: BP 132/63; PULSE 71; RESP 16; TEMP 36.2; O2SAT 99
[2024-09-25 07:57] VITALS: BP 151/83; PULSE 71; RESP 16; TEMP 36.2; O2SAT 100
[2024-09-25] MEDS: Sucralfate Oral Suspension 1 GM/10 ML ORAL.SUSP PO ×4 (08:03→20:10)
[2024-09-25] MEDS: Ferrous Sulfate 324 MG TABLET.DR PO (08:03)
[2024-09-25] MEDS: Pantoprazole Sodium 80 MG in 0.9 % Sodium Chloride 80 ML 10 MG IV (08:25)
--- NOTE | 2024-09-25 12:24 | PC.NURSE ---
VS Documented to close out Blood product TAR that was hung on 09/22/24
--- NOTE | 2024-09-25 13:04 | P.PNIM_ITS ---
Subjective Subjective Date of Service: 09/25/24 Interval History: Seen and examined this morning Follow-up for anemia No overnight events No abdominal pain, no overt bleeding Constitutional Constitutional: Denies chills and Denies fever(s) Cardiovascular Cardiovascular: Denies chest pain, Denies palpitations and Denies dyspnea Respiratory Respiratory: Denies cough and Denies dyspnea Endocrine Endocrine: Denies palpitations Physical Exam 2 Exam: Exam: Appearing in no acute distress lung sounds are clear to auscultation heart regular rate rhythm, clear S1, S2 positive bowel sounds, abdomen is soft, nontender neuro patient is alert x3, no focal deficits Vital Signs: Vital Signs: Last Vital Signs Temp 97.1 F 09/25/24 07:57 Pulse 71 09/25/24 07:57 Resp 16 09/25/24 07:57 BP 151/83 H 09/25/24 07:57 Pulse Ox 100 09/25/24 07:57 O2 Del Method Room Air 09/25/24 07:57 BMI result Body Mass Index 22.0 Objective Data Active Medications Acetaminophen (Acetaminophen 325 Mg Tablet) 650 mg PO Q6H PRN PRN Reason: Pain, Mild 1-3,fever,headache Last Admin: 09/25/24 03:35 Dose: 650 mg Documented By: RUBEN Benzocaine (Throat Lozenge, Medicated Lozenge) 1 lozenge MUCOUS MEM Q2H PRN PRN Reason: Sore Throat Last Admin: 09/22/24 17:41 Dose: 1 lozenge Documented By: GLORIA Calcium Carbonate (Calcium Carbonate 750 Mg Tab.Chew) 750 mg PO Q4H PRN PRN Reason: Heartburn Carvedilol (Carvedilol 6.25 Mg Tablet) 6.25 mg PO BID [facility]; Protocol Last Admin: 09/25/24 08:03 Dose: 6.25 mg Documented By: EWA Cyanocobalamin (Cyanocobalamin (Vitamin B-12) 1,000 Mcg Tablet) 1,000 mcg PO DAILY [facility] Last Admin: 09/25/24 08:03 Dose: 1,000 mcg Documented By: EWA Diphenhydramine HCl (Diphenhydramine Hcl 25 Mg Capsule) 25 mg PO Q6H PRN PRN Reason: iching Last Admin: 09/25/24 08:25 Dose: 25 mg Documented By: EWA Ergocalciferol (Ergocalciferol (Vitamin D2) 1,250 Mcg Capsule) 1,250 mcg PO PLEITEZ@0900 [facility] Escitalopram Oxalate (Escitalopram Oxalate 10 Mg Tablet) 10 mg PO DAILY [facility] Last Admin: 09/25/24 08:03 Dose: 10 mg Documented By: EWA Ferrous Sulfate (Ferrous Sulfate 324 Mg Tablet.Dr) 324 mg PO DAILY [facility] Last Admin: 09/25/24 08:03 Dose: 324 mg Documented By: EWA Fluticasone Propionate (Fluticasone Propionate Nasal 16 Gm [place]) 1 spray NOSTRIL-B DAILY PRN PRN Reason: Allergy Symptoms Gabapentin (Gabapentin 400 Mg Capsule) 400 mg PO BID [facility] Last Admin: 09/25/24 08:03 Dose: 400 mg Documented By: EWA Magnesium Hydroxide (Milk Of Magnesia 30 Ml Oral.Susp) 30 ml PO DAILY PRN PRN Reason: Constipation Last Admin: 09/24/24 15:13 Dose: 30 ml Documented By: RAKESH Meclizine HCl (Meclizine Hcl 12.5 Mg Tablet) 12.5 mg PO TID PRN PRN Reason: Nausea and Vomiting Last Admin: 09/24/24 08:24 Dose: 12.5 mg Documented By: BENITO Melatonin (Melatonin 3 Mg Tablet) 6 mg PO BEDTIME PRN PRN Reason: Insomnia Midodrine (Midodrine Hcl 5 Mg Tablet) 5 mg PO DAILY PRN PRN Reason: Hypotension Last Admin: 09/23/24 11:22 Dose: 5 mg Documented By: GLORIA Multivitamins/Vitamin C (Multivitamin Tablet) 1 tab PO DAILY [facility] Last Admin: 09/25/24 08:03 Dose: 1 tab Documented By: EWA Naloxone HCl (Naloxone Hcl 0.4 Mg/Ml Vial) 0.04 mg IVPUSH Q5M PRN PRN Reason: Excessive sedation or RR < 8 Nystatin/Triamcinolone Acetonide (Nystatin/Triamcinolone Cream 15 Gm Tube) 1 appl TOPICAL DAILY PRN PRN Reason: Rash Ondansetron HCl (Ondansetron Hcl 4 Mg/2 Ml Vial) 4 mg IVPUSH Q8H PRN PRN Reason: Nausea and Vomiting Last Admin: 09/25/24 03:59 Dose: 4 mg Documented By: RUBEN Ondansetron HCl (Ondansetron Odt 4 Mg Tab.Rapdis) 4 mg TRANSLINGU Q8H PRN PRN Reason: Nausea and Vomiting Pyridoxine HCl (Pyridoxine Hcl (Vitamin B6) 50 Mg Tablet) 50 mg PO DAILY [facility] Last Admin: 09/25/24 08:03 Dose: 50 mg Documented By: EWA Sodium Chloride (0.9 % Sodium Chloride Flush 3 Ml Syringe) 3 ml IVFLUSH QSHIFT [facility] Last Admin: 09/25/24 08:28 Dose: Not Given Documented By: EWA Non-Admin Reason: IV Running Sucralfate (Sucralfate Oral Suspension 1 Gm/10 Ml Oral.Susp) 1 gm PO QIDACHS [facility] Last Admin: 09/25/24 11:46 Dose: 1 gm Documented By: EWA Thiamine HCl (Thiamine Hcl 100 Mg Tablet) 100 mg PO DAILY [facility] Last Admin: 09/25/24 08:03 Dose: 100 mg Documented By: EWA Tramadol HCl (Tramadol Hcl 50 Mg Tablet) 50 mg PO Q6H PRN PRN Reason: Pain, Moderate(Pain Scale 4-6) Last Admin: 09/25/24 11:46 Dose: 50 mg Documented By: EWA Zinc Sulfate (Zinc Sulfate 220 Mg Capsule) 220 mg PO DAILY [facility] Last Admin: 09/25/24 08:03 Dose: 220 mg Documented By: EWA Labs 09/24/24 06:37 09/24/24 06:37 Labs: Laboratory Results - last 24 hr 09/22/24 07:51 Crossmatch See Detail Assessment and Plan (1) Acute GI bleeding: Status: Acute (2) Gastritis: Status: Acute Plan 54-year-old female with pertinent history of ESRD on hemodialysis Friday/Friday/Friday, recurrent upper GI bleed due to 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 Acute blood loss anemia (on anemia of chronic dz) due to Acute upper GI bleed, recurrent: no bleeding overnight previous EGD on 05/20/2024 with anastomotic ulcers without bleeding and gastritis s/p 2U RBC 09/22 s/p EGD 09/22 showing Gastritis, Numerous anastomotic ulcers with 2 ulcers with high risk stigmata (epi, thermal therapy, hemospray) Tolerating clear liquids, advanced to full liquids Continue IV PPI x 72 hours to end 09/25 carafate QID, avoid NSAIDs, reinforce PPI compliance We will need repeat EGD in 4 weeks to assess for healing Hypertensive emergency and Severe hyperkalemia due to missed hemodialysis in a patient with ESRD M/W/F: Resolved with urgent dialysis BP up and down; on midodrine daily prn follow bp closely Nephrology following Mixed hyperlipidemia: statin Mood Continue baseline medications DVT prophylaxis: SCDs Full code Requires ongoing inpatient stay for management of evaluation of GI bleed, monitoring of hemodynamics and H&H (as above), which is not possible in a lesser acute setting Quality Stroke Does the patient have a stroke diagnosis?: No VTE Prior VTE?: No VTE Risk Level:: Medical - moderate - high VTE Device Contraindication: N/A - Device Ordered VTE Drug Contraindication: Treatment Not Indicated
[2024-09-25 16:00] VITALS: BP 120/63; PULSE 88; RESP 16; TEMP 36.6; O2SAT 98
[2024-09-25 19:45] VITALS: BP 131/77; PULSE 83; RESP 16; TEMP 37.1; O2SAT 100
[2024-09-25] MEDS: 0.9 % Sodium Chloride Flush 3 ML SYRINGE IVFLUSH (20:10)
[2024-09-26 03:05] VITALS: BP 111/61; PULSE 79; RESP 16; TEMP 36.4; O2SAT 100
[2024-09-26] MEDS: Sucralfate Oral Suspension 1 GM/10 ML ORAL.SUSP PO ×2 (07:34→11:39)
[2024-09-26] MEDS: 0.9 % Sodium Chloride Flush 3 ML SYRINGE IVFLUSH (07:36)
[2024-09-26] MEDS: Ferrous Sulfate 324 MG TABLET.DR PO (07:36)
[2024-09-26 07:47] VITALS: BP 118/67; PULSE 76; RESP 18; TEMP 36.4; O2SAT 97
[2024-09-26 12:30] LABS: Anion Gap 17 (12-20); Blood Urea Nitrogen 31 mg/dL (9-16); Calcium 9.2 mg/dL (8.4-10.2); Carbon Dioxide 27 mmol/L (22-29); Chloride 99 mmol/L (96-108); Creatinine Clr Calc Pharmacy 11.8; Estimated Glomerular Filt Rate 9; Potassium 4.8 mmol/L (3.3-5.1); Sodium 138 mmol/L (135-145)
--- NOTE | 2024-09-26 12:40 | PM.DS ---
DS: Providers Provider Date of Service: 09/26/24 Date of admission: 09/20/24 18:55 Date of discharge: 09/26/24 Primary care physician: Rozina Lang MD Consults: 09/20/24 19:48 Consult to Gastroenterology Routine Consulting Provider: Sam Urban Reason for consultation: upper gi bleed 09/20/24 19:49 Consult to Nephrology Routine Consulting Provider: Vita Swain Reason for consultation: ESRD on HD 09/21/24 17:41 Consult to Gastroenterology Routine Consulting Provider: [facility] Reason for consultation: recurrent gi bleeding Has provider been notified: No DS: Diagnosis Discharge Diagnosis (1) Acute GI bleeding: Status: Acute (2) Gastritis: Status: Acute DS: Summary Hospital Course Hospital Course: From H&P on the day of admission This has a 54-year-old female with pertinent history of ESRD on hemodialysis Friday/Friday/Friday, recurrent upper GI bleed due to 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 Patient states she started having bright red blood in stool, multiple episodes on the day of presentation. Also possibly had 1 episode of coffee-ground emesis. Patient was having generalized abdominal discomfort which is now resolved. She does have history of recurrent GI bleed due to marginal ulcer from gastric bypass surgery. Patient states she has not taken her PPI because the pharmacy did not fill it. No fever, chills. Patient missed her dialysis session on the day of presentation and is complaining of headache. No chest pain, palpitations, changes in urinary habits. In the emergency department, patient's blood pressure found to be 238/184 and labs reveal potassium of 6. Nephrology was consulted from the ER for urgent dialysis. Patient was given temporizing measures and Lokelma for hyperkalemia and given IV Protonix. Acute blood loss anemia (on anemia of chronic dz) due to Acute upper GI bleed, recurrent: previous EGD on 05/20/2024 with anastomotic ulcers without bleeding and gastritis. Required transfusion of 2U RBC 09/22. Was seen by GI and underwent EGD 09/22 showing Gastritis, Numerous anastomotic ulcers with 2 ulcers with high risk stigmata (epi, thermal therapy, hemospray). Esophagus:? Normal mucosa noted in the entire esophagus. The Z line was at 46 cm. Stomach:? Severe erythema and edema was noted in the gastric folds. Total of 6 clean ulcers meauring 5-15 mm were noted around the anastomosis on the jejunal side. Two previously placed Endoclips were noted at the site of another healing ulcer at 5 o clock around the anastomosis line. Out of the 6 ulcers two ulcers had stigmata of recent bleed and the rest were white based. The larger 15 mm ulcer at 10 o clock at the anastomosis line had nonbleeding visible vessel ([place] II A). Thee 2nd ulcer measuring 6 mm had spontaneous oozing ([place] IB). Epinephrine was injected and the ulcers were cauterized with gold probe for complete hemostasis. Hemo spray was also applied to reinforce hemostasis. Small bowel:? Both the small bowel limbs appeared endoscopically normal, without any ulceration. Diet was slowly advanced. No recurrent bleeding noted. GI recommended to continue IV PPI x 72 hours to end 09/25 and to continue carafate QID, avoid NSAIDs, and reinforce PPI compliance. will need repeat EGD in 4 weeks to assess for healing Hypertensive emergency and Severe hyperkalemia due to missed hemodialysis in a patient with ESRD M/W/F. Resolved with urgent dialysis. Last dialysis received September 24. To continue outpatient dialysis on current Friday schedule Hyponatremia likely secondary to extra fluid on dialysis and resolved Acute on chronic back pain. Treated with pain medication. We will send home with a few days of oxycodone Time Attestation Discharge Coordination Time (in mins): 40 Quality: Safe Use of Opioids Does Pt have an Active Cancer Diagnosis on the Problem List?: No Quality: Stroke Does the patient have a stroke diagnosis?: No Physical Exam Exam: Exam: Appearing in no acute distress head is normocephalic atraumatic eyes pupils are PERRLA sclera is anicteric mouth throat mucous membranes are intact and moist neck is supple no lymphadenopathy, no JVD noted lung sounds are clear to auscultation heart regular rate rhythm, clear S1, S2 positive bowel sounds, abdomen is soft, nontender neuro patient is alert x3, no focal deficits Vital Signs: Vital Signs: Last Vital Signs Temp 97.6 F 09/26/24 07:47 Pulse 76 09/26/24 07:47 Resp 18 09/26/24 07:47 BP 118/67 09/26/24 07:47 Pulse Ox 97 09/26/24 07:47 O2 Del Method Room Air 09/26/24 07:47 BMI result Body Mass Index 22.0 DS: Data Data Completed and Pending Completed studies during hospitalization [Text1]: Procedures Control Bleeding in Gastrointestinal Tract, Via Natural or Artificial Opening Endoscopic (08/09/24) Excision of Stomach, Pylorus, Via Natural or Artificial Opening Endoscopic, Diagnostic (05/19/24) Excision of Stomach, Via Natural or Artificial Opening Endoscopic, Diagnostic (08/09/24) Inspection of Upper Intestinal Tract, Via Natural or Artificial Opening Endoscopic (04/24/24) Introduction of Mineral-based Topical Hemostatic Agent into Upper GI, Via Natural or Artificial Opening Endoscopic, [employer] 6 (11/19/23) Performance of Urinary Filtration, Intermittent, Less than 6 Hours Per Day (08/09/24) Transfusion of Nonautologous Red Blood Cells into Peripheral Vein, Percutaneous Approach (05/19/24) Labs on day of discharge: Laboratory Results - last 24 hr 09/26/24 09/26/24 12:02 12:03 Hold Purple Top SEE NOTE Sodium 138 Potassium 4.8 Chloride 99 Carbon Dioxide 27 Anion Gap 17 BUN 31 H Creatinine 4.92 H* Estim Creat Clear Calc 11.8 Estimated GFR 9 Random Glucose 113 Calcium 9.2 Discharge Plan Discharge Anticipated Discharge Date/Time: 09/26/24 12:32 Patient Disposition: Home, Self-Care Discharge Diagnosis: acute blood loss anemia due to upper GI bleed Hyponatremia Hyperkalemia Referrals: Deejay Arias MD, PhD [Physician, Neuro Spine] Referral Note: chronic back pain, second opinion Rozina Nicole MD [Primary Care Provider, Internal Medicine] - 1 Week Discharge Medications: New sucralfate 100 mg/mL Suspension 1 g PO QIDACHS 28 Days Qty: 1000 0RF oxycodone 5 mg Tablet 5 mg PO Q8H PRN (Reason: Pain, Moderate(Pain Scale 4-6)) Qty: 15 0RF Rx Instructions: Partial Fill upon patient request. Continued thiamine HCl (vitamin B1) 100 mg tablet 100 mg PO DAILY 90 Days Qty: 90 0RF vitamin A 2,400 mcg capsule 2,400 mcg PO DAILY 90 Days Qty: 90 1RF carvedilol 6.25 mg tablet 6.25 mg PO BID 90 Days Qty: 180 1RF gabapentin 400 mg capsule 400 mg PO BID 90 Days Qty: 180 1RF pyridoxine (vitamin B6) 50 mg tablet 50 mg PO DAILY 90 Days Qty: 90 1RF citalopram 20 mg tablet 20 mg PO DAILY 90 Days Qty: 90 1RF melatonin 10 mg capsule 20 mg PO BEDTIME Qty: 90 0RF cyanocobalamin (vitamin B-12) 1,000 mcg Tablet 1,000 mcg PO DAILY clotrimazole-betamethasone 1-0.05 % cream 1 appl topical DAILY PRN (Reason: Rash) acetaminophen [Mapap (acetaminophen)] 500 mg capsule 1,000 mg PO Q8H PRN (Reason: Pain) Clinisol SF 15 % 15 % parenteral solution 0.5 ea IV MOWEFR@0900 Rx Instructions: DIALYSIS MEDICATION Bariatric Multivitamins 45 mg iron- 800 mcg-120 mcg Capsule 1 cap PO DAILY fluticasone propionate 50 mcg/actuation spray,suspension 1 spray intranasal DAILY PRN (Reason: Allergy Symptoms) Rx Instructions: administer into each nostril ondansetron 4 mg tablet,disintegrating 4 mg PO Q8H PRN (Reason: nausea and vomiting) Qty: 10 0RF zinc acetate 50 mg (zinc) Capsule 100 mg PO DAILY omeprazole 40 mg capsule,delayed release(DR/EC) 40 mg PO BID@0630,1630 meclizine 12.5 mg Tablet 12.5 mg PO TID PRN (Reason: Nausea And Vomiting) ergocalciferol (vitamin D2) [Vitamin D2] 1,250 mcg (50,000 unit) capsule 1,250 mcg PO PLEITEZ@0900 ferrous sulfate 325 mg (65 mg iron) tablet,delayed release (DR/EC) 325 mg PO DAILY midodrine 5 mg tablet 5 mg PO DAILY PRN (Reason: Hypotension) Discontinued sucralfate 100 mg/mL suspension 10 ml PO BID 14 Days Qty: 280 0RF Discharge Orders: Discharge Order (Routine); Ordered 09/26/24 Ordered By: Davida Hendricks Diet: Advance to usual diet Activity on Discharge: As tolerated Stand Alone Forms: Patient Portal Discharge page Print Language: Congolese Care Plan Goals: See below Health Concerns: Hypertensive urgency-resolved with dialysis Hyperkalemia-resolved with dialysis Acute blood loss anemia due to acute upper GI bleeding Plan of Treatment: Carafate 10 ml QID Avoid NSAIDs. use PPI with open capsules and sucralfate as prescribed regularly, it to not miss/skip any doses. Repeat EGD in 4 weeks to assess for healing - call GI office to schedule appointment continue dialysis on regular MWF schedule Assessment: Recurrent upper GI bleed/acute blood loss anemia status post blood transfusion an EGD
--- NOTE | 2024-09-26 13:26 | MHC.CM.PN ---
PT CLEARED TO DC HOME TODAY WITH NO SERVICES ORDERED FAMILY TO TRANSPORT
== END 2024-09-26 13:18 | disposition home or self-care (01) | DRG 377 ==
LOC: HO.ED 16:16 → HO.EDOVER 19:16 → HO.IMC 19:22 → HO.S3 09-24 12:38
PROVIDERS: Internal Medicine; Physician Assistant Medical; Student in an Organized Health Care Education/Training Program; Admitting Provider Family Medicine; Emergency Provider Emergency Medicine; PCP Internal Medicine; Visit Provider Nurse Practitioner Acute Care
PROC: 0DJ08ZZ Inspection of Upper Intestinal Tract, Via Natural or Artificial Opening Endoscopic (ICD-10-PCS; CPT 43235; principal; 2024-09-22 09:00)
DX: K28.4 Chronic or unspecified gastrojejunal ulcer with hemorrhage (principal); N18.6 End stage renal disease; D62 Acute posthemorrhagic anemia; I16.1 Hypertensive emergency; I12.0 Hypertensive chronic kidney disease with stage 5 chronic kidney disease or end stage renal disease; D63.1 Anemia in chronic kidney disease; E87.5 Hyperkalemia; E78.2 Mixed hyperlipidemia; T47.1X6A Underdosing of other antacids and anti-gastric-secretion drugs, initial encounter; Z98.84 Bariatric surgery status; N25.0 Renal osteodystrophy; K29.71 Gastritis, unspecified, with bleeding; Z99.2 Dependence on renal dialysis; Z91.158 Patient's noncompliance with renal dialysis for other reason; Z87.891 Personal history of nicotine dependence; Z79.899 Other long term (current) drug therapy
CPT/HCPCS: 36415; 80048; 80053; 82947; 85014; 85018; 85025; 85027; 85610; 85730; 86850; 86900; 86901; 86923; 90999; 93005; 99284; C1889; J0613; J0618; J1171; J2405; J2470; J2704; J3010; P9016

== ENCOUNTER → 2024-09-20 16:20 | Outpatient (BNV) | payer MEDICARE, MEDICAID, SELFPAY | PROVIDERS: Admitting Provider Family Medicine; Emergency Provider Emergency Medicine; PCP Internal Medicine; Visit Provider Internal Medicine Cardiovascular Disease | DX: R94.31 Abnormal electrocardiogram [ECG] [EKG] (principal); R10.9 Unspecified abdominal pain | CPT/HCPCS: 93010 ==

== ENCOUNTER → 2024-09-20 18:55 | Outpatient (BNV) | payer MEDICARE, MEDICAID, SELFPAY | PROVIDERS: Admitting Provider Family Medicine; Emergency Provider Emergency Medicine; PCP Internal Medicine; Visit Provider Student in an Organized Health Care Education/Training Program | DX: K92.2 Gastrointestinal hemorrhage, unspecified (principal); E87.5 Hyperkalemia; I16.1 Hypertensive emergency | CPT/HCPCS: 99223; 99232 ==

== ENCOUNTER → 2024-09-20 18:55 | Outpatient (BNV) | payer MEDICARE, MEDICAID, SELFPAY | PROVIDERS: Admitting Provider Family Medicine; Emergency Provider Emergency Medicine; PCP Internal Medicine; Visit Provider Internal Medicine | DX: K21.00 Gastro-esophageal reflux disease with esophagitis, without bleeding (principal); K31.819 Angiodysplasia of stomach and duodenum without bleeding; K25.0 Acute gastric ulcer with hemorrhage; K29.70 Gastritis, unspecified, without bleeding; D62 Acute posthemorrhagic anemia | CPT/HCPCS: 43255; 99232; 99233 ==

== ENCOUNTER 2024-10-10 17:31 | Emergency (ER) | payer MEDICARE, MEDICAID, SELFPAY ==
[2024-10-10] VITALS (12 sets, daily range): BP systolic 91–130; BP diastolic 50–74; PULSE 87–106; RESP 12–24; TEMP 37.4–37.9; O2SAT 96–100; BMI 21.5
--- OUTSIDE RECORDS SUMMARY | 2024-10-10 18:15 | XMS_ITS | Encounter Summary ---
Author Organization [facility] Address [address] [place] [address] Care Team Providers Care Chair Maker Name Role Phone Sam Lynch MD Primary Care Provider Reason for Visit * Reason Onset Date Comments Med Refill 10/07/2024 Zofran and panto prazole Encounter Details Date Type Department Care Team (Late st Contact Info) Description 10/07/2024 Telephone Bariatric Surgery - [address] [place] [address] Gerson Rosen MD [address] [place] [phone] Social History Tobacco Use Types Packs/Day Years [...] Orientation Straight 06/30/2024 8: 57 AM EDT documented as of this encounter Functional Status * Are you deaf or do you have serious difficulty hearing? Answer Date of Assessment Author No 06/30/2024 8:27 PM EDT Clementine Hendricks RN * Are you blind or do you have serious difficulty seeing, even when wearing glasses? Answer Date of Assessment Author No 06/30/2024 8:27 PM EDT Clementine Hendricks RN * Do you have serious difficulty walking or climbing stairs? Answer Date of Assessment Author No 06/30/2024 8:27 PM EDT Clementine Hendricks RN * Do you have serious difficulty dressing or bathing? Answer Date of Assessment Author No 06/30/2024 8:27 PM EDT Clementine Hendricks RN * Because of a physical, mental, or emotional condition, do you have serious difficulty doing errandsalone such as visiting the doctor? Answer Date of Assessment Author No 06/30/2024 8:27 PM EDT Clementine Hendricks RN documented as of this encounter Mental Status * Because of a physical, mental, or emotional condition, do you have serious difficulty concentrating, remembering, or making decisions? (5 years old or older) Answer Entry Date Author No 06/30/2024 8:27 PM EDClementine Loja RN documented in this encounter Progress Notes * Maggy Asher - 10/07/2024 10:31 AM EDT Patient is requesting refills of Zofran 4mg and Pantoprazole 40mg documented in this encounter Plan of Treatment Upcoming Encounters Date Type Department Care Team (Late st Contact Info) Description 11/18/2024 1:15 PM EDT Office Visit Bariatric Surgery - [address] [place] [address] Gerson Rosen MD [address] [place] [phone] documented as of this encounter Visit Diagnoses Not on filedocumented in this encounter Care Teams Chair Maker Relationship Specialty Start Date End Date Sam Lynch MD [address] [place] [address] [address] [place], [place] PCP - General 10/25/22 documented as of this encounter
--- OUTSIDE RECORDS SUMMARY | 2024-10-10 18:15 | XMS_ITS | Clinical Summary ---
Author Organization [facility] Address [address] [place] [address] Phone Care Team Providers Care Lab Technician Name Role Phone Sam Lynch MD Primary [...] ADMINISTER INTO EACH NOSTRIL 07/27/19 22 Active ergocalciferol (VITAMIN D-2) 1,250 mcg (50,000 unit) capsule Take 1 capsule (50,000 Units total) by mouth 1 (one) time per week. 04/29/19 25 Active melatonin 10 mg capsule Take 2 capsules (20 mg total) by mouth at bedtime. 06/12/19 25 Active ondansetron (ZOFRAN) 4 mg tabletIndicati ons:Hx of obesity,Bariat delon surgery status,Margina l ulcer TAKE 1 TABLET (4 MG TOTAL) BY MOUTH EVERY 8 HOURS IF NEEDED FOR NAUSEA OR VOMITING FOR UP TO 7 DAYS. 21 tablet 09/23/19 25 Active sucralfate (Carafate) 1 gram tablet Take 1 tablet (1 g total) by mouth every 6 (six) hours. 120 each 09/23/19 25 025 Active sucralfate (Carafate) 100 mg/mL suspension Take 10 mL (1 g total) by mouth every 6 (six) hours. 1200 mL 09/02/19 25 025 ondansetron (ZOFRAN) 4 mg tabletIndicati ons:Hx of obesity,Bariat delon surgery status,Margina l ulcer Take 1 tablet (4 mg total) by mouth every 8 (eight) hours if needed for nausea or vomiting for up to 7 days. 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 11/26/2023 Acute kidney failure ([facility] V24) 04/26/2021 Benign essential hypertension 04/26/2021 Dependence on renal dialysis ([facility] V24) 04/26 Disorder of kidney and ureter, unspecified 04/26 ESRD on hemodialysis ([facility] V24, [facility] V28) 04/26/2021 Hypertensive heart and chron ic kidney disease with heart failure and stage 1 through stage 4 chronic kidney disease, or unspecified chronic kidney disease ([facility] V24, [facility] V28) 04/26/2021 Vitamin D deficiency 04/26/2021 Resolved Problems Problem Noted Date Diagnosed Date Resolved Date Upper GI bleed 06/30/2024 07/03/2024 Encounters Date Type Department Care Team Description 10/07/2024 Telephone Bariatric Surgery - [address] [phone] Gerson Rosen MD 09/21/2024 Telephone Bariatric Surgery [address] [phone] Grace Abarca PA 09/01/2024 3:15 PM EDT Office Visit Bariatric Surgery [address] [phone] Grace Abarca PA Hx of obesity (Primary Dx); Bariatric surgery status; Marginal ulcer 08/25/2024 8:42 AM EDT - 08/25/2024 6:00 PM EDT Emergency [facility] Emergency [address] [place] [phone] Claude Grey MD Epigastric pain (Primary Dx); Nausea Discharge Disposition: Home or Self Care 07/15/2024 2:00 PM EDT Office Visit Bariatric Surgery [address] [phone] Gerson Rosen MD Marginal ulcers (Primary Dx) from Last 3 Months Surgical History Surgery Date Site/Laterality Comments OTHER SURGICAL HISTORY PROCEDURE: DIALYSIS ACCESS SYSTEM LAPAROSCOPIC GASTRIC BANDING PROCEDURE: LAP ADJUSTABLE GASTRIC BAND HYSTERECTOMY PROCEDURE: HISTORICAL HYSTERECTOMY OTHER SURGICAL HISTORY PROCEDURE: COLONOSCOPY LESION REMOVAL OTHER SURGICAL HISTORY 06/13/2021 Left PROCEDURE: NV CRTJ ARVEN FSTL XCP DIR ARVEN ANAST [...] Sign Reading Time Taken Comments Blood Pressure 167/81 09/01/2024 3:32 PM EDT Pulse 85 09/01/2024 3:32 PM EDT Temperature 36.8 C (98.2 F) 08/25/2024 9:03 AM EDT Respiratory Rate 18 08/25/2024 11:40 AM EDT Oxygen Saturation 96% 08/25/2024 11:40 AM EDT Inhaled Oxygen Concentration - - Weight 59.9 kg (132 lb) 09/01/2024 3:32 PM EDT Height 165.1 cm (5' 5 ) 09/01/2024 3:32 PM EDT Body Mass Index 21.97 09/01/2024 3:32 PM EDT Plan of Treatment Upcoming Encounters Date Type Department Care Team (Late st Contact Info) Description 11/18/2024 1:15 PM EDT Office Visit Bariatric Surgery - [address] [place] [address] Gerson Rosen MD [address] [place] [phone] Health Maintenance Due Date Last Done Comments [...] Vaccine ( season) 2023 01/19/2021, 07/05/2020, 05/31/2020 Depression Screening [...] Procedure Name Priority Date/Time Associated Diagnosis Comments ECG ANNOTATED 08/26/2024 ANGUIANO URINE CULTURE TUBE STAT 08/25/2024 3:59 PM EDT URINALYSIS WITH REFLEX MICROSCOPIC AND CULTURE STAT 08/25/2024 3:59 PM EDT URINALYSIS WITH REFLEX MICROSCOPIC AND CULTURE STAT 08/25/2024 3:59 PM EDT US ABDOMEN LIMITED STAT 08/25/2024 2: [address] ABDOMEN PELVIS W CONTRAST STAT 08/25/2024 [...] AND DIFFERENTIAL STAT 08/25/2024 9:00 AM EDT from Last 3 Months Results * ECG-Annotated (08/26/2024) us Provider Onbase MD ECG ORDERABLES Final Result * (ABNORMAL) Urinalysis with reflex microscopic and culture (08/25/2024 3:59 PM EDT) Specific [place] Urine 1.012 1.003 - 1.030 LAB URINALYSIS - AUTOMATED METHOD 08/25/2024 4:35 PM [facility] pH, Urine 8.5(A) 5.0 - 8.0 pH LAB URINALYSIS - AUTOMATED METHOD 08/25/2024 4:35 PM [facility] Leukocytes, Urine Negative Negative LAB URINALYSIS - AUTOMATED METHOD 08/25/2024 4:35 PM [facility] Nitrite, Urine Negative Negative LAB URINALYSIS - AUTOMATED METHOD 08/25/2024 4:35 PM [facility] Protein, Urine 100(A) <=Trace mg/dL LAB URINALYSIS - AUTOMATED METHOD 08/25/2024 4:35 PM [facility] Glucose, Urine Negative Negative mg/dL LAB URINALYSIS - AUTOMATED METHOD 08/25/2024 4:35 PM [facility] Ketones, Urine Negative Negative mg/dL LAB URINALYSIS - AUTOMATED METHOD 08/25/2024 4:35 PM [facility] Urobilinogen, Urine 0.2 0.2 - 1.0 mg/dL LAB URINALYSIS - AUTOMATED METHOD 08/25/2024 4:35 PM [facility] Bilirubin, Urine Negative Negative LAB URINALYSIS - AUTOMATED METHOD 08/25/2024 4:35 PM [facility] Blood, Urine Trace(A) Negative LAB URINALYSIS - AUTOMATED METHOD 08/25/2024 4:35 PM [facility] RBC, Urine 13.5(H) 0 - 4 /HPF LAB URINALYSIS - AUTOMATED METHOD 08/25/2024 4:35 PM [facility] WBC, Urine 0.1 0 - 4 /HPF LAB URINALYSIS - AUTOMATED METHOD 08/25/2024 4:35 PM [facility] Squamous Epithelial, Urine 17 0 - 60 /LPF LAB URINALYSIS - AUTOMATED METHOD 08/25/2024 4:35 PM [facility] Bacteria, Urine Negative Negative /HPF LAB URINALYSIS - AUTOMATED METHOD 08/25/2024 4:35 PM EDT [facility] Hyaline Casts, Urine 0.4 0 - 3 /LPF LAB URINALYSIS - AUTOMATED METHOD 08/25/2024 4:35 PM EDT [facility] Urine Urine specimen obtained by clean catch procedure / Unknown Non-blood Collection / Unknown 08/25/2024 3:59 PM EDT 08/25/2024 4:25 PM EDT [employer] Robert PA LAB URINE ORDERABLES Jennifer l Result Performing Organization Address City/[facility]/ZIP Co de Phone Number [facility] [address] [place] [address], [place] [phone] * Anguiano urine culture tube (08/25/2024 3:59 PM EDT) Extra Tube Hold for add-ons. 08/25/2024 6:01 PM EDT [facility] Comment:Auto resulted. Urine Urine specimen obtained by clean catch procedure / Unknown Non-blood Collection / Unknown 08/25/2024 3:59 PM EDT 08/25/2024 4:25 PM EDT [facility] LAB URINE ORDERABLES Jennifer l Result Performing Organization Address City/[facility]/ZIP Co de Phone Number [facility] [address] [place] [address], [place] [phone] * US Abdomen Limited (08/25/2024 2:10 PM EDT) Anatomical Region Laterality Modality Body Ultrasound 08/25/2024 2:34 PM EDT Impressions 08/25/2024 2:49 PM EDT Distended gallbladder without wall thickening or cholelithiasis/choledocholithiasis. Right-sided hydronephrosis on CT imaging not well demonstrated. Please note there is moderate urinary bladder distention on recent CT imaging. -------- FINAL REPORT -------- Dictated By: Christopher Rouse Dictated Date: 08/25/2024 14:34 ET Assigned Physician: Christopher Rouse Reviewed and Electronically Signed By: Christopher Rouse Signed Date: 08/25/2024 14:49 ET Workstation ID: [id number] Transcribed By: Self Edit Transcribed Date: 08/25/2024 14:34 ET Narrative 08/25/2024 2:49 PM EDT INDICATION: Epigastric pain, right upper quadrant pain FINDINGS: Ultrasound of the right upper quadrant performed. Prior relevant studies: CT scan of the abdomen and pelvis from August 25, 2024 Pancreas: Partially obscured due to bowel gas. Visualized portions demonstrate no abnormality. Liver: Normal in size, shape and echogenicity. No solid mass or intrahepatic ductal dilatation. Portal vein patent with hepatopedal flow. Gallbladder: Gallbladder mildly distended. No gallbladder wall thickening. Trace amount of adjacent fluid however there is a small amount of free fluid noted on the CT scan along the right side of the abdomen and down into the pelvis. Negative sonographic Reis's sign reported by the technologist however the patient did have some tenderness in the region and had been administered morphine. Common bile duct: 5 mm which is within normal limits for the patient's age Right kidney: Atrophic right kidney. 14 mm cyst. Hydronephrosis noted on CT imaging is not as well demonstrated. Ascites: Trace Procedure Note Christopher Rouse MD - 08/25/2024 INDICATION: Epigastric pain, right upper quadrant pain FINDINGS: Ultrasound of the right upper quadrant performed. Prior relevant studies: CT scan of the abdomen and pelvis from August Pancreas: Partially obscured due to bowel gas. Visualized portionsdemonstrate no abnormality. Liver: Normal in size, shape and echogenicity. No solid mass orintrahepatic ductal dilatation. Portal vein patent with hepatopedal flow. Gallbladder: Gallbladder mildly distended. No gallbladder wall thickening.Trace amount of adjacent fluid however there is a small amount of freefluid noted on the CT scan along the right side of the abdomen and downinto the pelvis. Negative sonographic Reis's sign reported by thetechnologist however the patient did have some tenderness in the regionand had been administered morphine. Common bile duct: 5 mm which is within normal limits for the patient'howard Right kidney: Atrophic right kidney. 14 mm cyst. Hydronephrosis noted onCT imaging is not as well demonstrated. Ascites: Trace IMPRESSION: Distended gallbladder without wall thickening orcholelithiasis/choledocholithiasis. Right-sided hydronephrosis on CT imaging not well demonstrated. Please note there is moderate urinary bladder distention on recent CTimaging. -------- FINAL REPORT -------- Dictated By: Christopher Rouse Dictated Date: 08/25/2024 14:34 ET Assigned Physician: Christopher Rouse Reviewed and Electronically Signed By: Christopher Rouse Signed Date: 08/25/2024 14:49 ET Workstation ID: [id number] Transcribed By: Self Edit Transcribed Date: 08/25/2024 14:34 ET us John PARKER IMG US PROCEDURES Final R esult * CT Abdomen Pelvis w Contrast (08/25/2024 [...] bypass surgery. No evidence of bowel obstruction. Cecilia PARKER ([id number]) -------- FINAL REPORT -------- Dictated By: Jessy Bob Dictated Date: 08/25/2024 13:11 ET Assigned Physician: Jessy Bob Reviewed and Electronically Signed By: Jessy Bob Signed Date: 08/25/2024 13:29 ET Workstation ID: [id number] Transcribed By: Self Edit Transcribed Date: 08/25/2024 13:11 ET Narrative 08/25/2024 1:29 PM EDT History: Abdominal pain, nausea, vomiting and hematemesis. Prior gastric surgery. End-stage renal disease on hemodialysis. Comparison: 06/30/[address] Technique: Helical volumetric imaging of the abdomen and pelvis was performed following oral contrast and during the uneventful intravenous administration of 90 cc Isovue-370. DLP: 480.35 mGy/cm GE Scroll[employer]peed VCT Iterative reconstruction technique Findings: The liver [...] of 90 cc Isovue-370. DLP: 480.35 mGy/cm Global [employer] Services[employer]ed VCT Iterative reconstruction technique Findings: The liver [...] gastric bypass surgery. No evidenceof bowel obstruction. Cecilia PARKER ([id number]) -------- FINAL REPORT -------- Dictated By: Jessy Bob Dictated Date: 08/25/2024 13:11 ET Assigned Physician: Jessy Bob Reviewed and Electronically Signed By: Jessy Bob Signed Date: 08/25/2024 13:29 ET Workstation ID: [id number] Transcribed By: Self Edit Transcribed Date: 08/25/2024 13:11 ET John PARKER IMG CT PROCEDURES Final R esult * ECG 12 lead (08/25/2024 9:43 AM EDT) Ventricular Rate ECG 84 BPM GEMUSE Atrial Rate 84 BPM GEMUSE P-R Interval 102 ms GEMUSE QRS Duration 78 ms GEMUSE Q-T Interval 394 ms GEMUSE QTc 465 ms GEMUSE P Wave [place] 25 degrees GEMUSE R [place] 22 degrees GEMUSE T [place] 52 degrees GEMUSE ECG Interpretation Sinus rhythm with short NV Otherwise normal ECG When compared with ECG of 01-JUL-2024 05:38, No significant change was found Confirmed by KATTY GRANT ([id number]) on 08/25/2024 10:37:08 AM GEMUSE 08/25/2024 9:43 AM EDT 08/25/2024 10:37 AM EDT us Vaibhav Ozuna MD ECG ORDERABLES Final Result Performing Organization Address City/[facility]/ZIP Co de Phone Number GEMUSE * Troponin I high sensitivity (NOW and then in 1 hour) (08/25/2024 9:00 AM EDT) [facility] High Sensitivity Troponin I 6 <=54 ng/L LAB CHEMISTRY METHOD 08/25/2024 10:14 AM EDT [facility] Blood Venous blood specimen / Unknown Venipuncture / Unknown 08/25/2024 9:00 AM EDT 08/25/2024 9:41 AM EDT Narrative [facility] - 08/25/2024 10:14 AM EDT High levels of biotin in samples may falsely decrease hsTroponin values. Use caution when interpreting hsTroponin results in patients taking biotin who exhibit renal impairment (eGFR <60) or in patients taking more than 20 mg/day of biotin. Vaibhav Ozuna MD LAB BLOOD ORDERABLES Final Re sult Performing Organization Address City/[facility] Co de Phone Number [facility] [address] [place] [address], * (ABNORMAL) CBC auto differential (08/25/2024 9:00 AM EDT) [facility] WBC 12.4(H) 4.8 - 10.8 K/mcL LAB HEMETOLOGY METHOD 08/25/2024 9:47 AM EDT [facility] RBC 3.60(L) 3.80 - 4.80 M/[facility] LAB HEMETOLOGY METHOD 08/25/2024 9:47 AM EDT [facility] Hemoglobin 11.2(L) 11.5 - 16.0 g/dL LAB HEMETOLOGY METHOD 08/25/2024 9:47 AM EDT [facility] Hematocrit 34.4(L) 35.0 - 47.0 % LAB HEMETOLOGY METHOD 08/25/2024 9:47 AM [facility] MCV 95.6 79.0 - 98.0 FL LAB HEMETOLOGY METHOD 08/25/2024 9:47 AM [facility] MCH 31.1 27.0 - 32.0 pcg LAB HEMETOLOGY METHOD 08/25/2024 9:47 AM [facility] MCHC 32.6 32.0 - 37.0 g/dL LAB HEMETOLOGY METHOD 08/25/2024 9:47 AM [facility] RDW 15.4(H) 11.0 - 15.0 % LAB HEMETOLOGY METHOD 08/25/2024 9:47 AM [facility] Platelets 321 130 - 400 K/mcL LAB HEMETOLOGY METHOD 08/25/2024 9:47 AM [facility] MPV 10.3 7.0 - 11.0 FL LAB HEMETOLOGY METHOD 08/25/2024 9:47 AM [facility] NRBC 0.0 <1.0 % LAB HEMETOLOGY METHOD 08/25/2024 9:47 AM [facility] NRBC Absolute 0.00 <0.10 K/mcL LAB HEMETOLOGY METHOD 08/25/2024 9:47 AM [facility] Neutrophils Relative 84.3 % LAB HEMETOLOGY METHOD 08/25/2024 9:47 AM [facility] Lymphocytes Relative 8.7 % LAB HEMETOLOGY METHOD 08/25/2024 9:47 AM [facility] Monocytes Relative 4.8 % LAB HEMETOLOGY METHOD 08/25/2024 9:47 AM [facility] Eosinophils Relative 1.2 % LAB HEMETOLOGY METHOD 08/25/2024 9:47 AM [facility] Basophils Relative 0.6 % LAB HEMETOLOGY METHOD 08/25/2024 9:47 AM EDT [facility] Immature Granulocytes Relative 0.4 % LAB HEMETOLOGY METHOD 08/25/2024 9:47 AM EDT [facility] Neutrophils Absolute 10.40(H) 1.50 - 7.00 K/mcL LAB HEMETOLOGY METHOD 08/25/2024 9:47 AM EDT [facility] Lymphocytes Absolute 1.08 1.00 - 5.00 K/mcL LAB HEMETOLOGY METHOD 08/25/2024 9:47 AM EDT [facility] Monocytes Absolute 0.59 0.20 - 1.00 K/[facility] LAB HEMETOLOGY METHOD 08/25/2024 9:47 AM EDT [facility] Eosinophils Absolute 0.15 0.00 - 0.50 K/mcL LAB HEMETOLOGY METHOD 08/25/2024 9:47 AM EDT [facility] Basophils Absolute 0.08 0.00 - 0.20 K/mcL LAB HEMETOLOGY METHOD 08/25/2024 9:47 AM EDT [facility] Immature Granulocytes Absolute 0.05(H) 0.00 - 0.03 K/mcL LAB HEMETOLOGY METHOD 08/25/2024 9:47 AM EDT [facility] Blood Venous blood specimen / Unknown Venipuncture / Unknown 08/25/2024 9:00 AM EDT 08/25/2024 9:41 AM EDT us Vaibhav Ozuna MD LAB BLOOD ORDERABLES Final Re sult [facility] [address] [place] [address], * Type and screen (08/25/2024 9:00 AM EDT) ABO Group O 08/25/2024 10:25 AM EDT [facility] Rh Type Positive 08/25/2024 10:25 AM EDT [facility] Antibody Screen Negative 08/25/2024 10:25 AM EDT [facility] Blood Venous blood specimen / Unknown Venipuncture / Unknown 08/25/2024 9:00 AM EDT 08/25/2024 9:41 AM EDT Vaibhav Ozuna MD LAB BLOOD BANK TEST ORDERABLE S Final Result Performing Organization Address City/[facility]/ZIP Co de Phone Number [facility] [address] [place] [address], [place] [phone] * Phosphorus (08/25/2024 9:00 AM EDT) Phosphorus 3.2 2.5 - 4.5 mg/dL LAB CHEMISTRY METHOD 08/25/2024 10:12 AM EDT [facility] Blood Venous blood specimen / Unknown Venipuncture / Unknown 08/25/2024 9:00 AM EDT 08/25/2024 9:41 AM EDT John PARKER LAB BLOOD ORDERABLES Jennifer l Result Performing Organization Address [facility]/ZIP Co de Phone Number [facility] [address] [place] [address], [place] [phone] * Magnesium (08/25/2024 9:00 AM EDT) Magnesium 2.1 1.9 - 2.6 mg/dL LAB CHEMISTRY METHOD 08/25/2024 10:12 AM EDT [facility] Blood Venous blood specimen / Unknown Venipuncture / Unknown 08/25/2024 9:00 AM EDT 08/25/2024 9:41 AM EDT John PARKER LAB BLOOD ORDERABLES Jennifer l Result Performing Organization Address City/[facility]/ZIP Co de Phone Number [facility] [address] [place] [address], * (ABNORMAL) Lipase (08/25/2024 9:00 AM EDT) Lipase 96(H) 13 - 75 unit/L LAB CHEMISTRY METHOD 08/25/2024 10:12 AM EDT [facility] Blood Venous blood specimen / Unknown Venipuncture / Unknown 08/25/2024 9:00 AM EDT 08/25/2024 9:41 AM EDT Vaibhav Ozuna MD LAB BLOOD ORDERABLES Final Re sult Performing Organization Address [facility]/ZIP Co de Phone Number [facility] [address] [place] [address], * (ABNORMAL) Comprehensive metabolic panel (08/25/2024 9:00 AM EDT) Pathologist [facility] Sodium 135 133 - 145 mmol/L LAB CHEMISTRY METHOD 08/25/2024 10:13 AM [facility] Potassium 5.4 3.5 - 5.5 mmol/L LAB CHEMISTRY METHOD 08/25/2024 10:13 AM [facility] Chloride 100 96 - 110 mmol/L LAB CHEMISTRY METHOD 08/25/2024 10:13 AM [facility] CO2 29 21 - 32 mmol/L LAB CHEMISTRY METHOD 08/25/2024 10:13 AM [facility] Anion Gap 6 3 - 11 LAB CHEMISTRY METHOD 08/25/2024 10:13 AM [facility] Glucose 109(H) 70 - 100 mg/dL LAB CHEMISTRY METHOD 08/25/2024 10:13 AM [facility] BUN 22 5 - 25 mg/dL LAB CHEMISTRY METHOD 08/25/2024 10:13 AM [facility] Creatinine 5.00(H) 0.50 - 1.10 mg/dL LAB CHEMISTRY METHOD 08/25/2024 10:13 AM [facility] eGFR 10(L) >=60 mL/min/1. 73m2 LAB CHEMISTRY METHOD 08/25/2024 10:13 AM [facility] Comment:Calculation based on the Chronic Kidney Disease Epidemiology Collaboration (CKD-EPI) equation refit without adjustment for race. BUN/Creatinine Ratio 4.4 LAB CHEMISTRY METHOD 08/25/2024 10:13 AM [facility] Calcium 9.2 8.5 - 10.5 mg/dL LAB CHEMISTRY METHOD 08/25/2024 10:13 AM [facility] AST (SGOT) 20 10 - 42 unit/L LAB CHEMISTRY METHOD 08/25/2024 10:13 AM [facility] ALT (SGPT) 29 10 - 60 unit/L LAB CHEMISTRY METHOD 08/25/2024 10:13 AM [facility] Alkaline Phosphatase 216(H) 42 - 121 unit/L LAB CHEMISTRY METHOD 08/25/2024 10:13 AM [facility] Total Protein 6.2 6.0 - 8.0 g/dL LAB CHEMISTRY METHOD 08/25/2024 10:13 AM [facility] Albumin 3.2 3.2 - 5.0 g/dL LAB CHEMISTRY METHOD 08/25/2024 10:13 AM [facility] Total Bilirubin 0.3 0.0 - 1.4 mg/dL LAB CHEMISTRY METHOD 08/25/2024 10:13 AM [facility] Blood Venous blood specimen / Unknown Venipuncture / Unknown 08/25/2024 9:00 AM EDT 08/25/2024 9:41 AM EDT us Vaibhav Ozuna MD LAB BLOOD ORDERABLES Final Re sult 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 Care Teams Lab Technician Relationship Specialty Start Date End Date Sam Lynch MD [address] [place] [address] Dr [address] MAURICE Pickens PCP - General 10/25/22
--- OUTSIDE RECORDS SUMMARY | 2024-10-10 18:15 | XMS_ITS | Encounter Summary ---
Author Organization [facility] Address [address] [place] [address] Phone Care Team Providers Care Retail Equipment Associate Name Role Phone Rozina Nicole MD Primary Care Provider [phone] Encounter Details Date Type Department Care Team (Late st Contact Info) Description 05/08/2020 Orders Only [facility] [address] [place] [address] Provider, MD Wendy Social History [...] on filedocumented in this encounter Care Teams Retail Equipment Associate Relationship Specialty Start Date End Date Rozina Nicole MD [address] [place], [place] PCP - General 02/21/20 documented as of this encounter
--- OUTSIDE RECORDS SUMMARY | 2024-10-10 18:15 | XMS_ITS | Clinical Summary ---
Author Organization [facility] Address [address] [place] [address] [place] [address] Phone Care Team Providers Care Operations Support Professionals Name Role Phone Rozina Nicole MD Primary Care Provider [phone] Allergies Active Allergy Reactions Criticality Noted Date [...] 1 (one) time each day 10/16/2020 Active oxyCODONE-aceta minophen (PERCOCET) 5-325 MG per [...] ureter 05/02/2020 05/02/2020 Hypertensive heart disease w [facility] heart failure 05/02/2020 09/07/2020 Encounters Date Type Department Care Team Description 10/08/2024 Orders Only [facility] [address] [phone] Jon Wang MD 09/20/2024 Treatment [facility] [address] [phone] Jon Wang MD End stage renal disease; Dependence on renal dialysis 09/13/2024 Treatment [facility] [address] [phone] Jon Wang MD End stage renal disease; Dependence on renal dialysis 09/10/2024 Treatment [facility] [address] [phone] Jon Wang MD End stage renal disease; Dependence on renal dialysis 09/10/2024 Treatment [facility] [address] [facility] [address] [place] [address] Jon Wang MD End stage renal disease; Dependence on renal dialysis 09/06/2024 Treatment [facility] [address] [phone] Jon Wang MD End stage renal disease; Dependence on renal dialysis 09/03/2024 Treatment [facility] [address] [phone] Jon Wang MD End stage renal disease; Dependence on renal dialysis 08/27/2024 Treatment [facility] [address] [phone] Jon Wang MD End stage renal disease; Dependence on renal dialysis 08/16/2024 Treatment [facility] [address] [phone] Jon Wang MD End stage renal disease; Dependence on renal dialysis 08/06/2024 Treatment [facility] [address] [phone] Jon Wang MD End stage renal disease; Dependence on renal dialysis 08/02/2024 Treatment [facility] [address] [phone] Jon Wang MD End stage renal disease; Dependence on renal dialysis 07/19/2024 Treatment [facility] [address] [phone] Jon Wang MD End stage renal disease; Dependence on renal dialysis 07/12/2024 Treatment [facility] [address] [phone] Jon Wang MD End stage renal disease; Dependence on renal dialysis from Last 3 Months Family History Medical [...] Cancer Screening: Sigmoidoscopy 07/26/2020 Influenza Vaccine (#1) 2024 Procedures Procedure Name Priority Date/Time Associated Diagnosis Comments HEMOGLOBIN Routine 10/08/2024 3:00 AM EDT LIH (HC) Routine 10/04/2024 3:00 AM EDT PHOSPHATE ( PHOSPHORUS) Routine 10/04/2024 3:00 AM EDT LIH () Routine 10/01/2024 3:00 AM EDT HEMOGLOBIN AND HEMATOCRIT, BLOOD Routine 10/01/2024 3:00 AM EDT KT/V NATURAL LOG, URR (HC) Routine 10/01/2024 3:00 AM EDT HEPATITIS B SURFACE ANTIGEN W/REFL CONFIRM Routine 09/17/2024 3:00 AM EDT FERRITIN Routine 09/17/2024 3:00 AM EDT TRANSFERRIN SATURATION Routine 3:00 AM EDT PROTEIN, TOTAL, SERUM Routine 09/17/2024 3:00 AM EDT MAGNESIUM Routine 09/17/2024 3:00 AM EDT LIH () Routine 09/17/2024 3:00 AM EDT ELECTROLYTE PANEL Routine 09/17/2024 3:0 0 AM EDT GLUCOSE, RANDOM Routine 09/17/2024 3:00 AM EDT LACTATE DEHYDROGENASE Routine 09/17/2024 3:00 AM EDT CREATININE, SERUM Routine 09/17/2024 3:0 0 AM EDT BUN/CREATININE RATIO Routine 09/17/2024 3:00 AM EDT AST Routine 09/17/2024 3:00 AM EDT ALT Routine 09/17/2024 3:00 AM EDT BILIRUBIN, TOTAL Routine 09/17/2024 3:00 AM EDT CALCIUM PHOSPHORUS PRODUCT, ADJUSTED (HC) Routine 09/17/2024 3:00 AM EDT ALKALINE PHOSPHATASE Routine 09/17/2024 3:00 AM EDT KT/V NATURAL LOG, URR (HC) Routine 09/17/2024 3:00 AM EDT CBC AND DIFFERENTIAL Routine 09/17/2024 3:00 AM EDT CONFIRMATION TEST HCV Routine 09/06/2024 3:00 AM EDT HEPATITIS C ABS W/REFLEX RNA DETECTR Routine 09/06/2024 3:00 AM EDT PHOSPHATE ( PHOSPHORUS) Routine 09/01/2024 3:00 AM EDT LIH (HC) Routine 09/01/2024 3:00 AM EDT HEMOGLOBIN Routine 09/01/2024 3:00 AM EDT LIH (HC) Routine 08/27/2024 3:00 AM EDT HEMOGLOBIN AND HEMATOCRIT, BLOOD Routine 08/27/2024 3:00 AM EDT KT/V NATURAL LOG, URR (HC) Routine 08/27/2024 3:00 AM EDT LIH (HC) Routine 08/23/2024 3:00 AM EDT KT/V NATURAL LOG, URR (HC) Routine 08/23/2024 3:00 AM EDT LIH (HC) Routine 08/18/2024 3:00 AM EDT KT/V NATURAL LOG, URR (HC) Routine 08/18/2024 3:00 AM EDT HEMOGLOBIN A1C Routine 08/16/2024 3:00 AM EDT TRANSFERRIN SATURATION Routine 3:00 AM EDT KT/V NATURAL LOG, URR (HC) Routine 08/16/2024 3:00 AM EDT PROTEIN, TOTAL, SERUM Routine 08/16/2024 3:00 AM EDT MAGNESIUM Routine 08/16/2024 3:00 AM EDT ELECTROLYTE PANEL Routine 08/16/2024 3:0 0 AM EDT LIH (HC) Routine 08/16/2024 3:00 AM EDT LIPID PANEL Routine 08/16/2024 3:00 AM EDT LACTATE DEHYDROGENASE Routine 08/16/2024 3:00 AM EDT GLUCOSE, RANDOM Routine 08/16/2024 3:00 AM EDT CREATININE, SERUM Routine 08/16/2024 3:0 0 AM EDT BUN/CREATININE RATIO Routine 08/16/2024 3:00 AM EDT BILIRUBIN, TOTAL Routine 08/16/2024 3:00 AM EDT AST Routine 08/16/2024 3:00 AM EDT ALT Routine 08/16/2024 3:00 AM EDT ALKALINE PHOSPHATASE Routine 08/16/2024 3:00 AM EDT CALCIUM PHOSPHORUS PRODUCT, ADJUSTED (HC) Routine 08/16/2024 3:00 AM EDT PTH, INTACT Routine 08/16/2024 3:00 AM EDT FERRITIN Routine 08/16/2024 3:00 AM EDT HEPATITIS B SURFACE ANTIGEN W/REFL CONFIRM Routine 08/16/2024 3:00 AM EDT CBC AND DIFFERENTIAL Routine 08/16/2024 3:00 AM EDT HEMOGLOBIN AND HEMATOCRIT, BLOOD Routine 07/28/2024 3:00 AM EDT LIH (HC) Routine 07/28/2024 3:00 AM EDT PHOSPHATE ( PHOSPHORUS) Routine 07/28/2024 3:00 AM EDT PROTEIN, TOTAL, SERUM Routine 07/14/2024 3:00 AM EDT MAGNESIUM Routine 07/14/2024 3:00 AM EDT ELECTROLYTE PANEL Routine 07/14/2024 3:0 0 AM EDT TRANSFERRIN SATURATION Routine 3:00 AM EDT LACTATE DEHYDROGENASE Routine 07/14/2024 3:00 AM EDT LIH (HC) Routine 07/14/2024 3:00 AM EDT GLUCOSE, RANDOM Routine 07/14/2024 3:00 AM EDT CREATININE, SERUM Routine 07/14/2024 3:0 0 AM EDT BUN/CREATININE RATIO Routine 07/14/2024 3:00 AM EDT BILIRUBIN, TOTAL Routine 07/14/2024 3:00 AM EDT AST Routine 07/14/2024 3:00 AM EDT ALKALINE PHOSPHATASE Routine 07/14/2024 3:00 AM EDT ALT Routine 07/14/2024 3:00 AM EDT CALCIUM PHOSPHORUS PRODUCT, ADJUSTED (HC) Routine 07/14/2024 3:00 AM EDT HEPATITIS B SURFACE ANTIGEN W/REFL CONFIRM Routine 07/14/2024 3:00 AM EDT PTH, INTACT Routine 07/14/2024 3:00 AM EDT FERRITIN Routine 07/14/2024 3:00 AM EDT KT/V NATURAL LOG, URR (HC) Routine 07/14/2024 3:00 AM EDT CBC AND DIFFERENTIAL Routine 07/14/2024 3:00 AM EDT from Last 3 Months Results * (ABNORMAL) Hemoglobin (10/08/2024 3:00 AM EDT) Only the most recent of2 resultswithin the time period is included. Hgb 7.9(L) 11.2 - 15.7 g/dL [facility] Hemoglobin x 3 23.7(L) 33.6 - 47.1 g/dL [facility] 10/08/2024 3:00 AM EDT 10/09/2024 2:04 PM EDT us Jon Wang MD LAB BLOOD ORDERABLES Final Re sult [facility] [address] [place] [address] * LIH (10/04/2024 3:00 AM EDT) Only the most recent of10 resultswithin the time period is included. Lipemia Normal Normal [facility] Icterus Normal Normal [facility] Hemolysis Normal Normal [facility] 10/04/2024 3:00 AM EDT 10/05/2024 11:59 AM EDT Jon Wang MD LAB [id number] SOLICITED RESULTS Final Result Performing Organization Address [facility] Co de Phone Number [facility] [address] [place] [address] * Phosphorus (10/04/2024 3:00 AM EDT) Only the most recent of3 resultswithin the time period is included. Phosphorus, Serum 3.2 2.5 - 5.0 mg/dL [facility] 10/04/2024 3:00 AM EDT 10/05/2024 11:59 AM EDT Jon Wang MD LAB BLOOD ORDERABLES Final Re sult Performing Organization Address [facility] de Phone Number [facility] [address] [place] [address] * (ABNORMAL) Kt/V Natural Log, URR (10/01/2024 3:00 AM EDT) Only the most recent of7 resultswithin the time period is included. Treatment Time 180 min [facility] Pre-Weight, lb 63.0 kg [facility] Post-Weight, lb 61.2 kg [facility] Ultrafiltration Rate 10 <=13 mL/kg/hr [facility] Comment: Recommend achieving Ultrafiltration Rate (UFR) <=10 mL/kg/hr References: Terrell GARCIA et al. Kidney Int. 2010; 79(2):250-257 BUN 38(H) 7 - 25 mg/dL [facility] BUN Post Dialysis 10 7 - 25 mg/dL [facility] UREA REDUCTION RATIO (%) 74 >=65 % [facility] Kt/V Natural Log 1.52 >=1.2 [facility] 10/01/2024 3:00 AM EDT 10/02/2024 1:29 PM EDT Jon Wang MD LAB [id number] SOLICITED RESULTS Final Result Performing Organization Address [facility] de Phone Number [facility] [address] [place] [address] * (ABNORMAL) Hemoglobin and hematocrit (10/01/2024 3:00 AM EDT) Only the most recent of3 resultswithin the time period is included. Hgb 9.4(L) 11.2 - 15.7 g/dL [facility] Hematocrit 28.5(L) 34.1 - 44.9 % [facility] Hemoglobin x 3 28.2(L) 33.6 - 47.1 g/dL [facility] 10/01/2024 3:00 AM EDT 10/02/2024 1:31 PM EDT Jon Wang MD LAB BLOOD ORDERABLES Final Re sult Performing Organization Address [facility] de Phone Number [facility] [address] [place] [address] * (ABNORMAL) Calcium Phosphorus Product, Adjusted (09/17/2024 3:00 AM EDT) Only the most recent of3 resultswithin the time period is included. Albumin 3.7 3.6 - 5.4 g/dL [facility] Calcium 8.6 8.6 - 10.3 mg/dL [facility] Phosphorus, Serum 5.8(H) 2.5 - 5.0 mg/dL [facility] Ca*PO4 49.9 <55.0 mg2/dL2 [facility] Calcium, Adjusted Total 8.8 8.6 - 10.3 mg/dL [facility] CA*PO4 CORRCTD 51.0 <55.0 mg2/dL2 [facility] 09/17/2024 3:00 AM EDT 09/18/2024 1:48 PM EDT us Jon Wang MD LAB [id number] SOLICITED RESULTS Final Result Performing Organization Address [facility] de Phone Number [facility] [address] [place] [address] * Hepatitis B Surface Ag w/Reflex Confirmation (09/17/2024 3:00 AM EDT) Only the most recent of3 resultswithin the time period is included. Hep B Surface Antigen Negative Negative [facility] 09/17/2024 3:00 AM EDT 09/18/2024 1:48 PM EDT Jon Wang MD LAB BLOOD ORDERABLES Final Re sult Performing Organization Address [facility] de Phone Number [facility] [address] [place] [address] * BUN/CREATININE RATIO (09/17/2024 3:00 AM EDT) Only the most recent of3 resultswithin the time period is included. BUN/Creatinine Ratio 5.1 <=23.0 [facility] 09/17/2024 3:00 AM EDT 09/18/2024 1:48 PM EDT Jon Wang MD LAB [id number] SOLICITED RESULTS Final Result Performing Organization Address [facility] de Phone Number [facility] [address] [place] [address] * (ABNORMAL) TSAT (09/17/2024 3:00 AM EDT) Only the most recent of3 resultswithin the time period is included. Iron 41(L) 50 - 170 ug/dL [facility] Transferrin 143(L) 250 - 380 mg/dL [facility] TIBC 200(L) 211 - 406 ug/dL [facility] Iron Saturation (TSat) 20(L) 22 - 52 % [facility] 09/17/2024 3:00 AM EDT 09/18/2024 1:48 PM EDT us Jon Wang MD LAB BLOOD ORDERABLES Final Re sult Performing Organization Address City/[facility]/ZIP Co de Phone Number [facility] [address] [place] [address] * (ABNORMAL) CBC and Differential (09/17/2024 3:00 AM EDT) Only the most recent of3 resultswithin the time period is included. DIFFERENTIAL MANUAL, 2 Not Indicated [facility] White Blood Cells 7.7 4.0 - 10.0 K/uL [facility] RBC 3.29(L) 3.93 - 5.22 M/uL [facility] Hgb 10.2(L) 11.2 - 15.7 g/dL [facility] Hemoglobin x 3 30.6(L) 33.6 - 47.1 g/dL [facility] Hematocrit 32.0(L) 34.1 - 44.9 % [facility] MCV 97.3(H) 79.4 - 94.8 fL [facility] MCH 31.0 25.6 - 32.2 pg [facility] MCHC 31.9(L) 32.2 - 35.5 g/dL [facility] RDW 15.6(H) 11.7 - 14.4 % [facility] Platelets 298 182 - 369 K/uL [facility] Neutrophils Relative 58.7 34.0 - 71.1 % [facility] Lymphocytes Relative 24.8 19.3 - 51.7 % [facility] Monocytes 10.8 4.7 - 12.5 % [facility] Eosinophils Relative 4.6 0.7 - 5.8 % [facility] Basophils Relative 0.7 0.1 - 1.2 % [facility] Immature Granulocytes 0.4 0.0 - 1.0 % [facility] 09/17/2024 3:00 AM EDT 09/18/2024 1:41 PM EDT us Jon Wang MD LAB BLOOD ORDERABLES Final Re sult [facility] [address] [place] [address] * ALT (09/17/2024 3:00 AM EDT) Only the most recent of3 resultswithin the time period is included. Pathologist [facility] ALT (SGPT) 13 10 - 49 U/L [facility] 09/17/2024 3:00 AM EDT 09/18/2024 1:48 PM EDT Jon Wang MD LAB BLOOD ORDERABLES Final Re sult Performing Organization Address [facility] Co de Phone Number [facility] [address] [place] [address] * AST (09/17/2024 3:00 AM EDT) Only the most recent of3 resultswithin the time period is included. AST (SGOT) 13 <34 U/L [facility] 09/17/2024 3:00 AM EDT 09/18/2024 1:48 PM EDT Jon Wang MD LAB BLOOD ORDERABLES Final Re sult Performing Organization Address [facility] de Phone Number [facility] [address] [place] [address] * (ABNORMAL) Protein, total (09/17/2024 3:00 AM EDT) Only the most recent of3 resultswithin the time period is included. Total Protein 6.1(L) 6.4 - 8.9 g/dL [facility] 09/17/2024 3:00 AM EDT 09/18/2024 1:48 PM EDT Jon Wang MD LAB BLOOD ORDERABLES Final Re sult Performing Organization Address [facility] de Phone Number [facility] [address] [place] [address] * (ABNORMAL) Alkaline phosphatase (09/17/2024 3:00 AM EDT) Only the most recent of3 resultswithin the time period is included. Alkaline Phosphatase 177(H) 46 - 116 U/L [facility] 09/17/2024 3:00 AM EDT 09/18/2024 1:48 PM EDT us Jon Wang MD LAB BLOOD ORDERABLES Final Re sult Performing Organization Address [facility] de Phone Number [facility] [address] [place] [address] * Magnesium (09/17/2024 3:00 AM EDT) Only the most recent of3 resultswithin the time period is included. Magnesium 2.3 1.9 - 2.7 mg/dL [facility] 09/17/2024 3:00 AM EDT 09/18/2024 1:48 PM EDT us Jon Wang MD LAB BLOOD ORDERABLES Final Re sult Performing Organization Address [facility] de Phone Number [facility] [address] [place] [address] * Lactate dehydrogenase (09/17/2024 3:00 AM EDT) Only the most recent of3 resultswithin the time period is included. LDH 173 120 - 246 U/L [facility] 09/17/2024 3:00 AM EDT 09/18/2024 1:48 PM EDT us Jon Wang MD LAB BLOOD ORDERABLES Final Re sult Performing Organization Address [facility] de Phone Number [facility] [address] [place] [address] * Glucose, random (09/17/2024 3:00 AM EDT) Only the most recent of3 resultswithin the time period is included. Glucose 74 70 - 99 mg/dL [facility] Comment: ADA guidelines outline the following fasting glucose ranges: Normal: <100 Prediabetes: 100-125 Diabetes: >125 09/17/2024 3:00 AM EDT 09/18/2024 1:48 PM EDT us Jon Wang MD LAB BLOOD ORDERABLES Final Re sult Performing Organization Address [facility] Co de Phone Number [facility] [address] [place] [address] * (ABNORMAL) Ferritin (09/17/2024 3:00 AM EDT) Only the most recent of3 resultswithin the time period is included. Ferritin 622(H) 10 - 291 ng/mL [facility] 09/17/2024 3:00 AM EDT 09/18/2024 1:48 PM EDT Jon Wang MD LAB BLOOD ORDERABLES Final Re sult Performing Organization Address [facility] de Phone Number [facility] [address] [place] [address] * (ABNORMAL) Creatinine, serum (09/17/2024 3:00 AM EDT) Only the most recent of3 resultswithin the time period is included. Creatinine 6.26(H) 0.55 - 1.02 mg/dL [facility] 09/17/2024 3:00 AM EDT 09/18/2024 1:48 PM EDT Jon Wang MD LAB BLOOD ORDERABLES Final Re sult Performing Organization Address [facility] de Phone Number [facility] [address] [place] [address] * (ABNORMAL) Bilirubin, total (09/17/2024 3:00 AM EDT) Only the most recent of3 resultswithin the time period is included. Total Bilirubin <0.2(L) 0.3 - 1.2 mg/dL [facility] 09/17/2024 3:00 AM EDT 09/18/2024 1:48 PM EDT Jon Wang MD LAB BLOOD ORDERABLES Final Re sult Performing Organization Address [facility] Co de Phone Number [facility] [address] [place] [address] * (ABNORMAL) Electrolyte panel (09/17/2024 3:00 AM EDT) Only the most recent of3 resultswithin the time period is included. Sodium 128(L) 136 - 145 mEq/L [facility] Potassium 4.9 3.4 - 5.0 mEq/L [facility] Chloride 93(L) 98 - 107 mEq/L [facility] Bicarbonate (CO2) 20(L) 21 - 31 mEq/L [facility] Anion Gap 15(H) 3 - 14 mEq/L [facility] 09/17/2024 3:00 AM EDT 09/18/2024 1:48 PM EDT Jon Wang MD LAB BLOOD ORDERABLES Final Re sult Performing Organization Address [facility] de Phone Number [facility] [address] [place] [address] * Confirmation Test HCV (09/06/2024 3:00 AM EDT) Pathologist [facility] Hep C Ab Confirmation Not needed [facility] 09/06/2024 3:00 AM EDT 09/07/2024 2:14 PM EDT Jon Wang MD LAB BLOOD ORDERABLES Final Re sult Performing Organization Address [facility] de Phone Number [facility] [address] [place] [address] * HEPATITIS C ABS W/REFLEX RNA DETECTR (09/06/2024 3:00 AM EDT) Pathologist [facility] Hep C Virus Ab Non-Reacti ve Non-Reacti ve [facility] 09/06/2024 3:00 AM EDT 09/07/2024 2:15 PM EDT us Jon Wang MD LAB [id number] SOLICITED RESULTS Final Result Performing Organization Address [facility] de Phone Number [facility] [address] [place] [address] * PTH, Intact (08/16/2024 3:00 AM EDT) Only the most recent of2 resultswithin the time period is included. PTH, Intact 510 160 - 721 pg/mL [facility] Comment: Suggested (KDIGO) ESRD maintenance range is two to nine times the upper normal limit (80.1 pg/mL) for the laboratory. 08/16/2024 3:00 AM EDT 08/17/2024 12:40 PM EDT Jon Wang MD LAB BLOOD ORDERABLES Final Re sult Performing Organization Address [facility] de Phone Number [facility] [address] [place] [address] * Hemoglobin A1c (08/16/2024 3:00 AM EDT) Hemoglobin A1C 4.9 <5.7 % [facility] Comment: Methodology: Ion-exchange high-performance liquid chromatography (HPLC) Normal: <5.7% Prediabetes: 5.7-6.4% Diabetes: >6.4% Diabetic Glucose Control Evaluation: Therapeutic action suggested at >8.0% ADA recommends a glycemic goal of <7.0% 08/16/2024 3:00 AM EDT 08/17/2024 1:30 PM EDT Jon Wang MD LAB BLOOD ORDERABLES Final Re sult Performing Organization Address [facility] de Phone Number [facility] [address] [place] [address] * (ABNORMAL) Lipid panel (08/16/2024 3:00 AM EDT) Cholesterol 121 mg/dL [facility] Comment: Optimal: <200 Borderline: 200-239 High Risk: >239 Triglycerides 88 mg/dL [facility] Comment: Optimal: <150 Borderline: 150-200 High Risk: >200 HDL 44(L) mg/dL [facility] Comment: Optimal: >59 Borderline: 40-59 High Risk: <40 LDL-Calc 59 mg/dL [facility] Comment: Optimal: <100 Borderline: 100-159 High Risk: >159 VLDL Cholesterol Art 18 mg/dL [facility] Comment: Optimal: <30 Borderline: 30-40 High Risk: >40 Chol/HDL Ratio 2.8 [facility] Comment: Optimal: <3.3 High Risk: >6.2 08/16/2024 3:00 AM EDT 08/17/2024 12:40 PM EDT us Jon Wang MD LAB BLOOD ORDERABLES Final Re sult [facility] [address] [place] [address] from Last 3 Months Insurance Medicare Medicaid [place] Medicare Medicaid [place] Care Teams Operations Support Professionals Relationship Specialty Start Date End Date Rozina Nicole MD [address] [place], [place] PCP - General 02/21/20
--- OUTSIDE RECORDS SUMMARY | 2024-10-10 18:15 | XMS_ITS | Encounter Summary ---
Author Organization [facility] Address [address] [facility] [address] [place] [address] Phone Care Team Providers Care Senior Project Manager Name Role Phone Rozina Nicole MD Primary Care Provider [phone] Encounter Details Date Type Department Care Team ([facility] st Contact Info) Description 05/22/2020 Orders Only [facility] [address] [place] [address] Jon Wang MD [address] [facility] [address] [place] [phone] Stage 5 chronic kidney disease (HCC) Social [...] (HCC) documented in this encounter Care Teams Senior Project Manager Relationship Specialty Start Date End Date Rozina Nicole MD [address] [place] [address] [address] [place] PCP - General 02/21/20 documented as of this encounter
--- OUTSIDE RECORDS SUMMARY | 2024-10-10 18:15 | XMS_ITS | Encounter Summary ---
Author Organization [facility] Address [address] [place] [address] Phone Care Team Providers Care Resistor Tester Name Role Phone Rozina Nicole MD Primary Care Provider Reason for Visit * Reason Onset Date Comments Med Refill 11/23/2020 Encounter Details Date Type Department Care Team (Late st Contact Info) Description 11/23/2020 Refill [facility] [address] [place] [phone] Nkechi Salvador, ALEX [address] [facility] [address] [place] [address] Social History Tobacco Use Types [...] on filedocumented in this encounter Care Teams Resistor Tester Relationship Specialty Start Date End Date Rozina Nicole MD [address] [place], [place] PCP - General 02/21/20 documented as of this encounter
--- OUTSIDE RECORDS SUMMARY | 2024-10-10 18:15 | XMS_ITS | Encounter Summary ---
Author Organization [facility] Address [address] [facility] [address] [place] [address] Phone Care Team Providers Care Dynamite Shooter Name Role Phone Rozina Nicole MD Primary Care Provider [phone] Encounter Details Date Type Department Care Team ([facility] st Contact Info) Description 05/15/2020 Orders Only [facility] [address] [place] [address] Jon Wang MD [address] [facility] [address] [place] [phone] Stage 5 chronic kidney disease (HCC) Social [...] (HCC) documented in this encounter Care Teams Dynamite Shooter Relationship Specialty Start Date End Date Rozina Nicole MD [address] [place] [address] [address] [place] PCP - General 02/21/20 documented as of this encounter
--- OUTSIDE RECORDS SUMMARY | 2024-10-10 18:15 | XMS_ITS | Clinical Summary ---
Author Organization [facility] Address [address] [place] [id number] Phone Care Team Providers Care Mma Fighter Name Role Phone Rozina Nicole MD Primary Care Provid er Social History Tobacco Use Types Packs/Day Years Used Date Smoking Tobacco: Never Assessed Education Answer Date Recorded Are you interested in more education? Not on tomás e 06/06/2022 Are you concerned about learning? Not on file 06/06/2022 No 06/06/2022 No 06/06/2022 Digital Access Answer Date Recorded No 07/09/2022 No 07/09/2022 No 07/09/2022 Reliable internet access at home? Not on file 07/09/2022 Device with a working camera? Not on file Comments Unknown Sex and Gender Information Value Date Recorded Sex Assigned at Not on file Legal Sex Female 4:14 PM EDT Gender Identity Not on file Sexual Orientation Not on file Plan of Treatment Health Maintenance Due Date Last Done Comments Adult Td,Tdap Booster 1971 LIPID PANEL 1971 DEPRESSION SCREENING 1983 HEPATITIS C SCREENING 07/26/1989 HIV ONE-TIME SCREENING (18-6 5 YEARS) 07/26/1989 PAP SMEAR 07/26/1992 MAMMOGRAM 2011 PNEUMOCOCCAL VACCINES (50+ years) (2 of 2 - PCV) 07/26/2021 10/31/2016 ZOSTER VACCINES (1 of 2) 07/26/2021 COVID-19 VACCINE (4 - 2023-2 5 season) 2023 01/19/2021, 07/05/2020, 05/31/2020 COLORECTAL CANCER SCREENING Completed HEPATITIS A VACCINES Aged Out No long er eligible based on patient's age to complete this topic HIB VACCINES Aged Out No longer eligi ble based on patient's age to complete this topic MENINGOCOCCAL VACCINES (ACWY) Aged Out No longer eligible based on patient's age to complete this topic MENINGOCOCCAL VACCINES (B) Aged Out N o longer eligible based on patient's age to complete this topic Medical Devices Not on file Insurance ACO ACO ACO ACO ACO ACO ACO ACO ACO Care Teams Mma Fighter Relationship Specialty Start Date End Date Rozina Nicole MD [address] [place] [address] PCP - General 06/26/18 Additional Source Comments The information contained in this document represents components of the legal health record. It is not the complete legal health record.[facility]
--- OUTSIDE RECORDS SUMMARY | 2024-10-10 18:15 | XMS_ITS | Encounter Summary ---
Author Organization [facility] Address [address] [address] Phone Care Team Providers Care Machine Clothing Man Name Role Phone Rozina Nicole MD Primary Care Provider [phone] Encounter Details Date Type Department Care Team ([facility] st Contact Info) Description 10/08/2024 Orders Only [facility] [address] [address] Jon Wang MD [address] [address] Social History Tobacco Use Types [...] Comments HEMOGLOBIN Routine 10/08/2024 3:00 AM EDT documented in this encounter Results * (ABNORMAL) Hemoglobin (10/08/2024 3:00 AM EDT) Hgb 7.9(L) 11.2 - 15.7 g/dL [facility] Hemoglobin x 3 23.7(L) 33.6 - 47.1 g/dL [facility] 10/08/2024 3:00 AM EDT 10/09/2024 2:04 PM EDT us Jon Wang MD LAB BLOOD ORDERABLES Final Re sult [facility] [address] [place] [address] documented in this encounter Visit Diagnoses Not on filedocumented in this encounter Care Teams Machine Clothing Man Relationship Specialty Start Date End Date Rozina Nicole MD [address] [place], [place] PCP - General 02/21/20 documented as of this encounter
--- NOTE | 2024-10-10 18:57 | PC.NURSE ---
patient a&ox3, compliance monitor applied sinus tach on monitor, rectal exam performed by provider- rectal temp obtained at this time- 100.3, pt difficult access- provider at bedside doing US guided access- was able to obtain blood cultures then lost access, second attempt at access was performed by provider and gained. Pt has LT AV Fistula + bruit/thrill. This nurse handed off report to erlin and provider made the patient sepsis protocol upon report being handed off.
[2024-10-10 19:04] LABS: MANUAL DIFF FLAG NO
[2024-10-10 19:05] LABS: Hemoglobin 7.1 g/dl (12.0-16.0); Imm Gran Abs Auto 0.09 X10*3/uL (0.00-0.03); Imm Gran Pct Auto 0.6 % (0.0-0.4); Lymphocytes Absolute Auto 1.8 X10*3/uL (1.2-4.9); Mean Corpuscular HGB Conc 35.1 g/dl (31.0-35.0); Mean Corpuscular Hemoglobin 32.9 pg (27.0-33.0); Mean Corpuscular Volume 93.5 fL (80.0-98.0); NRBC Abs Auto 0.000 X10*3/uL (0.0-0.012); NRBC Pct Auto 0.0 /100WBC (0.0-0.2); Platelet Count 269 X10*3/uL (160-400); Red Blood Count 2.16 X10*6/uL (4.20-5.50); White Blood Count 14.4 X10*3/uL (4.8-10.8)
[2024-10-10 19:07] LABS: OBS Int Ctl Valid YES
[2024-10-10 19:08] LABS: OBS1 POSITIVE (NEGATIVE)
[2024-10-10 19:12] LABS: Hematocrit 20.2 % (37.0-47.0)
--- NOTE | 2024-10-10 19:13 | ED_ITS ---
<Statement entered by Genoveva Mcdermott DO - 10/13/24 20:15> I personally evaluated this patient with the AMAN and performed a substantive portion of the visit including all aspects of the medical decision making. ?Reviewed and agree with documented PA assessment and plan. Patient will be transferred to [facility] ED to ED for anemia in the setting of active GIB.? Patient remains hemodynamically stable, resting and comfortable at this time. HPI - General Adult General Chief complaint: Abdominal Pain Stated complaint: Ab pain Time Seen by Provider: 10/10/24 18:09 Source: patient Limitations: no limitations History of Present Illness ED Provider: Morelia Holland PA-C HPI narrative: 54-year-old female with a history of ESRD on hemodialysis Friday/Friday/Friday, s/p gastric sleeve surgery, s/p revision of gastric bypass at [facility] , recurrent upper GI bleed due to marginal ulcer as a complication from prior bariatric surgery, mixed hyperlipidemia, hypertension, gastroesophageal reflux disease, chronic back pain, mesenteric stenosis, mood disorder who presents with concern for upper GI bleeding since yesterday. Patient states she has had active nausea vomiting, expelling coffee-ground emesis, with black tarry stool. Associated weakness, fatigue and mid to upper abdominal discomfort. Unknown fevers. Related Data Home Medications ?Medication ?Instructions ?Recorded ?Confirmed ferrous sulfate 325 mg (65 mg 325 mg PO DAILY 05/11/20 09/28/24 iron) tablet,delayed release cyanocobalamin (vitamin B-12) 1,000 mcg PO DAILY 10/1709/28/24 1,000 mcg tablet midodrine 5 mg tablet 5 mg PO DAILY PRN Hypotensio n 03/25/23 09/28/24 acetaminophen 500 mg capsule 1,000 mg PO Q8H PRN Pain 08/10/23 09/28/24 (Mapap (acetaminophen)) fluticasone propionate 50 1 spray intranasal DAILY PRN 08/10/23 09/28/24 mcg/actuation nasal Allergy Symptoms spray,suspension fhpkrqbs-kfpyliyt-kysp 45 mg-folic 1 cap PO DAILY 07/1309/28/24 acid 800 mcg-vit K 120 mcg capsule (Bariatric Multivitamins) parenteral amino acid 15% no.5 15 0.5 ea IV MOWEFR@090 0 08/10/23 09/28/24 % combination no.5 intravenous solution (Clinisol SF) zinc acetate 50 mg (zinc) capsule 100 mg PO DAILY 0411/0409/28/24 ergocalciferol (vitamin D2) 1,250 1,250 mcg PO PLEITEZ@0900 06/04/24 09/28/24 mcg (50,000 unit) capsule (Vitamin D2) meclizine 12.5 mg tablet 12.5 mg PO TID PRN Nausea An d 06/04/24 09/28/24 Vomiting omeprazole 40 mg capsule,delayed 40 mg PO BID@0630,163 0 06/04/24 09/28/24 release clotrimazole-betamethasone 1 1 appl topical DAILY PRN Rash 09/20/24 09/28/24 %-0.05 % topical cream Previous Rx's ?Medication ?Instructions ?Recorded thiamine HCl (vitamin B1) 100 mg 100 mg PO DAILY 90 da ys #90 tabs 09/27/23 tablet vitamin A 2,400 mcg capsule 2,400 mcg PO DAILY 90 days #90 caps 02/05/24 carvedilol 6.25 mg tablet 6.25 mg PO BID 90 days #180 tabs 04/28/24 gabapentin 400 mg capsule 400 mg PO BID 90 days #180 c aps 04/28/24 pyridoxine (vitamin B6) 50 mg 50 mg PO DAILY 90 days # 90 tabs 04/28/24 tablet ondansetron 4 mg disintegrating 4 mg PO Q8H PRN nausea and 05/11/24 tablet vomiting #10 tabs citalopram 20 mg tablet 20 mg PO DAILY 90 days #90 t abs 09/08/24 melatonin 10 mg capsule 20 mg (2 x 10 mg) PO BEDTIME #90 09/20/24 caps sucralfate 100 mg/mL oral 1 g (10 mL) PO QIDACHS 28 da ys 09/24/24 suspension #1,000 mL oxycodone 5 mg tablet 5 mg PO Q8H PRN Pain, Moderate(Pain Scale 4-6) #15 tabs Allergies Allergy/AdvReac Type Severity Reaction Status Date / Time ibuprofen Allergy Severe Unknown Verified 10/10/24 17:48 nifedipine Allergy Intermediate hives, leg Verified 10/10/24 17:48 edema Review of Systems 2 Review of Systems: Yes all other systems are reviewed and are negative Constitutional: Constitutional: Reports fatigue, Denies fever(s), Reports lethargy and Reports malaise Cardiovascular: Cardiovascular: Denies chest pain and Denies dyspnea Respiratory: Respiratory: Denies dyspnea Gastrointestinal: Gastrointestinal: Reports abdominal pain, Reports melena, Reports coffee ground emesis, Reports diarrhea, Reports nausea and Reports vomiting Endocrine: Endocrine: Reports fatigue PMFSH Past Medical History Attestation statement: The following information was validated with the patient. 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 Lumbar back pain with radiculopathy affecting left lower extremity Physical exam (~02/14/21) Peritoneal dialysis catheter in place Polyarthralgia Dyslipidemia Family history of ovarian cancer Abnormal mammogram of right breast Angina pectoris syndrome Chest pain Constipation Nephrosclerosis Renal interstitial fibrosis Obesity (BMI 30-39.9) Back pain GERD (gastroesophageal reflux disease) History of headache HTN (hypertension) Surgical History History of sleeve gastrectomy S/P arteriovenous (AV) graft placement Fistula Hx of colonoscopy Hx of hysterectomy Hx of tubal ligation History of endometrial ablation Family History Family History Father Asthma Mother Asthma Hypertension Ovarian cancer Maternal Grandfather Myocardial infarction Paternal Grandmother Stroke Social History Social History Household Members: Children Household Members Other:: 30 year old special needs son Housing: Apartment Are you a primary medicare compliance auditor to a significant other at home: No Do you presently have visiting nurse or other home services: Yes Alcohol intake: never Comment: low fall risk Patient Tobacco Use Status: Former Tobacco user Tobacco use type: Cigarette Cigarette Packs Per Day: 1 Cigarettes Per Day: 1 Years Smoked: 10+ Smoked in Last 30 Days: No e-Cigarette/Vaping Use: Never Used Second Hand Smoke Exposure: No Use of substances other than those prescribed or required for medical reasons: No Substance Use Type: Caffiene Advance Directives: Yes Advance Directives on File: Yes Advance Directives Date on File: 04/27/20 Do you have a plan to hurt others: No Plan Patient : No service: No Current occupational status: employed Cognitive needs: No Hearing needs: No Vision needs: Yes (reading glasses) Physical Exam ED Vital Signs: Vital Signs - 24 hr 10/10/24 17:46 10/10/24 18:55 10/10/24 19:04 Temperature 99.5 F 100.3 F Pulse Rate 105 H Respiratory Rate 12 24 H Blood Pressure 130/64 Pulse Oximetry 100 Oxygen Delivery Method Room Air 10/10/24 19:58 10/10/24 21:21 10/10/24 22:01 Temperature 99.3 F Pulse Rate 106 H 98 100 Respiratory Rate 15 16 13 Blood Pressure 108/58 L 91/50 L 112/67 Pulse Oximetry 99 99 Oxygen Delivery Method Room Air 10/10/24 22:02 10/10/24 22:03 10/10/24 22:14 Temperature 99.5 F 99.5 F Pulse Rate 102 H 98 Respiratory Rate 14 17 19 Blood Pressure 112/67 106/59 L Pulse Oximetry 98 96 Oxygen Delivery Method Room Air 10/10/24 22:51 Temperature Pulse Rate 91 Respiratory Rate 16 Blood Pressure 110/60 Pulse Oximetry 97 Oxygen Delivery Method Room Air BMI result Body Mass Index 21.5 Const Other: Awake, ill-appearing, pale Orientation/consciousness: patient oriented x3 Resp Effort & Inspection: normal respiratory effort Cardio Other: Normal peripheral perfusion GI Other: Generalized tenderness to palpation on exam without guarding abdomen is soft and nondistended, melena noted per rectal exam, guaiac positive resulted Skin Other: Warm dry no rash Neuro General: patient oriented x3, gait normal, no focal motor deficits and CN's II- XI intact bilaterally Psych Other: Cooperative Course Reevaluation(s) Reevaluation #1: At 1857 on October 10 of sepsis focused exam was performed. In addition to screening labs, blood cultures and lactic we will be obtained. Despite the patient has end-stage renal, she states she still makes urine, she is not currently volume restricted. Erring on the side of caution I am not giving weight based IV fluids we will give 500 mL bolus, she also may be anemic, giving Tylenol for the fever, starting empiric ceftriaxone Time: 18:57 Reevaluation #2: Patient had a large bowel movement consisting of melena that was witnessed, repeating her H and H Reevaluation #3: H&H dropped to 5.9 and 17, she is receiving blood products now, she is pending GI consult Consultations Consultation #1: per Dr. Dixon....... He reviewed the patient's chart, during her recent admission, she had EGD on September 22, at that time clips were implemented with the cautery and epinephrine. He does not feel that repeat endoscopy after such a short timeframe would be helpful and would have low chance of success in controlling her current bleeding, he feels she should be transferred to a tertiary center with IR capabilities I will start working on this now Time: 22:01 Consultation #2: Spoke with [facility], they have no beds, even if GI and IR were to accept, she will be holding for a bed, hence she would have no intervention overnight, I am about to reach out to [place] now Time: 22:47 Consultation #3: Speaking with [place] transfer line, they were readily accept the patient, the patient will be an ED to ED transfer with the accepting physician Dr. Diaz.... The patient is in agreement to be transferred, she understands she requires a higher level of care, in particular IR capabilities, calling her sister to update Time: 22:55 Medications Administered Discontinued Medications Generic Name Dose Route Start Last Admin Trade Name Devanq PRN Reason Stop Dose Admin Ceftriaxone Sodium 2 gm 10/10/24 18:57 10/10/24 19:15 Ceftriaxone Sodium 2 Gm Vial IVPUSH 10/10/24 18:58 2 gm ONCE ONE Administration Acetaminophen 1,000 mg in 100 mls @ 400 mls/hr 10/10/24 18:24 10/10/24 19:30 Ofirmev IV 10/10/24 18:38 Infused ONCE ONE Infusion Sodium Chloride 500 mls @ 500 mls/hr 10/10/24 18:57 10/10/24 21:12 Ns IV 10/10/24 19:56 Infused .Q1H ONE Infusion Morphine Sulfate 4 mg 10/10/24 18:25 10/10/24 19:04 Morphine Sulfate 4 Mg/Ml Cartridge IVPUSH 10/10/24 18:26 4 mg ONCE ONE Administration Protocol Morphine Sulfate 4 mg 10/10/24 20:50 10/10/24 22:03 Morphine Sulfate 4 Mg/Ml Cartridge IVPUSH 10/10/24 20:51 4 mg ONCE ONE Administration Protocol Ondansetron HCl 4 mg 10/10/24 18:25 10/10/24 19:04 Ondansetron Hcl 4 Mg/2 Ml Vial IVPUSH 10/10/24 18:26 4 mg ONCE ONE Administration Pantoprazole Sodium 40 mg 10/10/24 18:24 10/10/24 19:04 Pantoprazole Sodium 40 Mg/10 Ml Vial IVPUSH 10/10/24 18:25 40 mg ONCE ONE Administration Procedures Procedure Narrative Procedure Narrative: Ultrasound-guided IVs 20 gauge 1-3/4 inch IV placed in left upper extremity, adequate blood return flushes well secured with Tegaderm 20 gauge 1.16 in IV placed in left upper extremity adequate blood return flushes well secured with Tegaderm. The patient required 2 points of access, she is getting transfused Medical Decision Making Medical Decision Making MDM Narrative: 54-year-old female with a history of ESRD on hemodialysis Friday/Friday/Friday, s/p gastric sleeve surgery, s/p revision of gastric bypass at [facility] , recurrent upper GI bleed due to marginal ulcer as a complication from prior bariatric surgery, mixed hyperlipidemia, hypertension, gastroesophageal reflux disease, chronic back pain, mesenteric stenosis, mood disorder who presents with concern for upper GI bleeding since yesterday. Patient states she has had active nausea vomiting, expelling coffee-ground emesis, with black tarry stool. Associated weakness, fatigue and mid to upper abdominal discomfort. Unknown fevers. Problem: Recurrent upper GI bleeding, end-stage renal, History: Per patient I have considered the following differential diagnoses: Upper GI bleed, anemia, sepsis Plan: Patient meets sepsis criteria, she spiked a temperature here. In addition to screening labs blood cultures and lactic were obtained, the patient is still makes urine, however I am not bolusing her her weight based IV fluid, we will be giving 500 mL, she is also likely anemic. She has evidence of active GI bleeding on exam, she has melena, the guaiac is positive. Her H&H just resulted, she requires transfusion, ordering 2 units, type and screen. We will be reaching out to GI for consult. She received 40 mg of Protonix and 2 g of ceftriaxone. I have independently reviewed the following tests: Labs: Leukocytosis of 14.4 with left shift, 1st H&H 7.1 and 20.2, repeat 5.9 and 17, creatinine 5.82, potassium 4.5, magnesium 1.8, lactic 1.5 Differential Diagnosis Differential Diagnoses: The differential diagnosis associated with the presentation includes See MDM Admission/Observation Consideration of admission/observation: Escalation of care including admission/observation considered Patient will require transfer for higher level of care Consult Healthcare Provider Management of the patient was discussed with: Bioinformatics Analyst Per GI Dr. Dixon, we will require Interventional Radiology for upper GI bleeding Lab Data [facility] Lab Attestation statement: I reviewed the patient's lab results. 10/10/24 21:25 10/10/24 19:26 Labs: Lab Results 10/10/24 10/10/24 10/10/24 Range/Units 18:59 19:26 21:25 WBC 14.4 H (4.8-10.8) X10*3/uL RBC 2.16 L D (4.20-5.50) X10*6/uL Hgb 7.1 L D 5.9 L* (12.0-16.0) g/dl Hct 20.2 L* D 17.0 L* (37.0-47.0) % MCV 93.5 (80.0-98.0) fL MCH 32.9 (27.0-33.0) pg MCHC 35.1 H (31.0-35.0) g/dl RDW 13.9 (11.0-16.0) % Plt Count 269 D (160-400) X10*3/uL MPV 10.2 (9.4-12.3) fL Immature Gran % (Auto) 0.6 H (0.0-0.4) % Neut % (Auto) 81.8 H (45-73) % Lymph % (Auto) 12.4 L (20-40) % [place] % (Auto) 4.9 (2-11) % Eos % (Auto) 0.1 (0-4) % Baso % (Auto) 0.2 (0-2) % Lymph # (Auto) 1.8 (1.2-4.9) X10*3/uL [place] # (Auto) 0.7 (0.1-1.2) X10*3/uL Eos # (Auto) 0.0 (0.0-0.4) X10*3/uL Baso # (Auto) 0.0 (0.0-0.2) X10*3/uL Abs Immat Gran (auto) 0.09 H (0.00-0.03) X10*3/uL Absolute Neuts (auto) 11.8 H (2.0-8.3) x10*3/uL Absolute Nucleated RBC 0.000 (0.0-0.012) X10*3/uL Nucleated RBC % (auto) 0.0 (0.0-0.2) /100WBC Sodium 132 L (135-145) mmol/L Potassium 4.5 (3.3-5.1) mmol/L Chloride 96 (96-108) mmol/L Carbon Dioxide 26 (22-29) mmol/L Anion Gap 15 (12-20) BUN 69 H (9-16) mg/dL Creatinine 5.82 H* (0.5-1.4) mg/dL Estim Creat Clear Calc 10.0 Estimated GFR 8 Random Glucose 108 (60-115) mg/dL Lactic Acid 1.5 (0.5-2.0) mmol/L Calcium 8.3 L D (8.4-10.2) mg/dL Magnesium 1.8 (1.6-2.6) mg/dL Total Bilirubin 0.3 (0.0-1.0) mg/dL AST 12 (5-31) U/L ALT < 6 (0-31) U/L Alkaline Phosphatase 95 (39-117) U/L Total Protein 5.0 L (6.5-8.0) g/dL Albumin 2.8 L (3.5-5.0) g/dL Beta HCG, Quant 3 mIU/mL Stool Occult Blood POSITIVE (NEGATIVE) Blood Type O Positive Antibody Screen NEGATIVE Crossmatch See Detail Chronic Conditions Patient?s care impacted by: Hypertension and Other (End-stage renal disease, recurrent upper GI bleeding secondary to gastric bypass) Critical Care Time Critical Care Time Critical Care Time: Yes Total Critical Care Time: 45 Attestation: I Morleia Holland personally performed 45 minutes of critical care time not including lines and procedures; sepsis, upper GI bleed, anemia requiring transfusion, GI consult, transferred to tertiary center for IR Discharge Plan Discharge Clinical Impression: Acute upper gastrointestinal bleeding, Anemia, Sepsis Patient Disposition: [facility] Transfer Details: Per Gastroenterology, Dr. Dixon, the patient will be best served at a tertiary center with IR capability, accepted to [place] as an ED to ED transfer Prescriptions: No Action thiamine HCl (vitamin B1) 100 mg tablet 100 mg PO DAILY 90 Days Qty: 90 0RF vitamin A 2,400 mcg capsule 2,400 mcg PO DAILY 90 Days Qty: 90 1RF carvedilol 6.25 mg tablet 6.25 mg PO BID 90 Days Qty: 180 1RF gabapentin 400 mg capsule 400 mg PO BID 90 Days Qty: 180 1RF pyridoxine (vitamin B6) 50 mg tablet 50 mg PO DAILY 90 Days Qty: 90 1RF citalopram 20 mg tablet 20 mg PO DAILY 90 Days Qty: 90 1RF melatonin 10 mg capsule 20 mg PO BEDTIME Qty: 90 0RF cyanocobalamin (vitamin B-12) 1,000 mcg Tablet 1,000 mcg PO DAILY clotrimazole-betamethasone 1-0.05 % cream 1 appl topical DAILY PRN (Reason: Rash) sucralfate 100 mg/mL Suspension 1 g PO QIDACHS 28 Days Qty: 1000 0RF oxycodone 5 mg Tablet 5 mg PO Q8H PRN (Reason: Pain, Moderate(Pain Scale 4-6)) Qty: 15 0RF Rx Instructions: Partial Fill upon patient request. acetaminophen [Mapap (acetaminophen)] 500 mg capsule 1,000 mg PO Q8H PRN (Reason: Pain) Clinisol SF 15 % 15 % parenteral solution 0.5 ea IV MOWEFR@0900 Rx Instructions: DIALYSIS MEDICATION Bariatric Multivitamins 45 mg iron- 800 mcg-120 mcg Capsule 1 cap PO DAILY fluticasone propionate 50 mcg/actuation spray,suspension 1 spray intranasal DAILY PRN (Reason: Allergy Symptoms) Rx Instructions: administer into each nostril ondansetron 4 mg tablet,disintegrating 4 mg PO Q8H PRN (Reason: nausea and vomiting) Qty: 10 0RF zinc acetate 50 mg (zinc) Capsule 100 mg PO DAILY omeprazole 40 mg capsule,delayed release(DR/EC) 40 mg PO BID@0630,1630 meclizine 12.5 mg Tablet 12.5 mg PO TID PRN (Reason: Nausea And Vomiting) ergocalciferol (vitamin D2) [Vitamin D2] 1,250 mcg (50,000 unit) capsule 1,250 mcg PO PLEITEZ@0900 ferrous sulfate 325 mg (65 mg iron) tablet,delayed release (/EC) 325 mg PO DAILY midodrine 5 mg tablet 5 mg PO DAILY PRN (Reason: Hypotension) Print Language: Omani
--- NOTE | 2024-10-10 19:15 | PC.NURSE ---
giving 500 mL NS sepsis bolus. changed from 1700 mL d/t hx ESRD on HD
--- NOTE | 2024-10-10 19:57 | PC.NURSE ---
requested ice. ELENA muñoz.
[2024-10-10 19:58] LABS: Alanine Aminotransferase < 6 U/L (0-31); Albumin Level 2.8 g/dL (3.5-5.0); Alkaline Phosphatase 95 U/L (39-117); Anion Gap 15 (12-20); Aspartate Amino Transferase 12 U/L (5-31); Blood Urea Nitrogen 69 mg/dL (9-16); Calcium 8.3 mg/dL (8.4-10.2); Carbon Dioxide 26 mmol/L (22-29); Chloride 96 mmol/L (96-108); Creatinine Clr Calc Pharmacy 10.0; Estimated Glomerular Filt Rate 8; Magnesium 1.8 mg/dL (1.6-2.6); Potassium 4.5 mmol/L (3.3-5.1); Sodium 132 mmol/L (135-145); Total Protein 5.0 g/dL (6.5-8.0)
--- NOTE | 2024-10-10 20:20 | PC.NURSE ---
sister called, patient gave verbal permission to tell sister patient is here
--- NOTE | 2024-10-10 20:30 | PC.NURSE ---
pt up to commode with assist d/t weakness and had moderate amount of melena mixed with small amount of urine. pt oliguric. PA aware
[2024-10-10 21:46] LABS: Hematocrit 17.0 % (37.0-47.0); Hemoglobin 5.9 g/dl (12.0-16.0)
[2024-10-11] VITALS: BP 113/67; PULSE 94; RESP 13; TEMP 37.4
[2024-10-11 00:18] VITALS: BP 117/60; PULSE 95; RESP 18; TEMP 37.4
--- NOTE | 2024-10-11 01:15 | PC.NURSE ---
pt departed with EMS on tele at about 0115 with blood still transfusing at 125mL/hr. charge darcie aware
== END 2024-10-11 01:15 | disposition short-term general hospital (02) ==
PROVIDERS: Physician Assistant Medical; Emergency Provider Emergency Medicine; PCP Internal Medicine
DX: K92.2 Gastrointestinal hemorrhage, unspecified (principal); R10.2 Pelvic and perineal pain; D64.9 Anemia, unspecified; A41.9 Sepsis, unspecified organism; R11.2 Nausea with vomiting, unspecified; Z98.84 Bariatric surgery status; Z79.899 Other long term (current) drug therapy; Z87.891 Personal history of nicotine dependence
CPT/HCPCS: 36415; 36430; 80053; 82272; 83605; 83735; 84702; 85014; 85018; 85025; 86850; 86900; 86901; 86923; 87040; 96361; 96365; 96375; 96376; 99285; 99291; J0131; J0696; J2270; J2405; J2470; P9016

== ENCOUNTER 2024-11-05 15:01 | Emergency (ER) | payer MEDICARE, MEDICAID, SELFPAY ==
[2024-11-05] VITALS (8 sets, daily range): BP systolic 101–140; BP diastolic 51–71; PULSE 84–93; RESP 16–18; TEMP 36.6–37.1; O2SAT 99–100; BMI 21.7
--- NOTE | ~2024-11-05 | CT_ITS ---
CLINICAL HISTORY: abd pain n v CT abdomen and pelvis without contrast Comparison: CT/[place]/SR - CT ABDOMEN PELVIS WO IV CON - 07/14/24 07:55 EDT Findings: Small paraesophageal hernia. [id number] bilateral renal atrophy. Right lower quadrant peritoneal fat inflammatory changes, coronal image number 38 of [id number]. Hepatomegaly, 18.3 cm. Prior gastric surgery. Calcified coronary atherosclerotic disease. Mild calcified atherosclerotic disease of the abdominal aorta. The appendix is within normal limits. Prior hysterectomy. No acute fracture. IMPRESSION: 1. Re-identified Right lower quadrant mesenteric panniculitis. 2. Chronic renal insufficiency. 3. Hepatomegaly, measuring 18.3 cm. 4. Small paraesophageal hernia. 5. Calcified coronary and abdominal aortic atherosclerotic disease. This document has been electronically signed by: Kenneth Campoverde MD on 11/05/2024 20:13:46
--- NOTE | ~2024-11-05 | XR_ITS ---
CLINICAL HISTORY: sob 1 view chest x-ray Comparison: CR/SR - XR CHEST 1 VIEW - 06/04/24 10:30 EDT Findings: The lungs are clear. Similar prominent/enlarged cardiac silhouette. No acute fracture. IMPRESSION: 1. No acute findings. This document has been electronically signed by: Shedlon Irving MD on 11/05/2024 18:26:26
--- OUTSIDE RECORDS SUMMARY | 2024-11-05 16:09 | XMS_ITS | Encounter Summary ---
Author Organization [facility] Address [address] [facility] [address] [facility] [address] [place] [address] Phone Care Team Providers Care Diamond Setter Apprentice Name Role Phone Rozina Nicole MD Primary Care Provider [phone] Encounter Details Date Type Department Care Team ([facility] st Contact Info) Description 05/22/2020 Orders Only [facility] [address] [place] [address] Jon Wang MD [address] [facility] [address] [place] [id number] Stage 5 chronic kidney disease (HCC) Social [...] (HCC) documented in this encounter Care Teams Diamond Setter Apprentice Relationship Specialty Start Date End Date Rozina Nicole MD [address] [place] [address] [address] [place] PCP - General 02/21/20 documented as of this encounter
--- OUTSIDE RECORDS SUMMARY | 2024-11-05 16:09 | XMS_ITS | Clinical Summary ---
Author Organization Formerly [facility] Address [address] [place] [address] Care Team Providers Care Radiographer Cardiac Catheterization Name Role Phone Rozina Nicole MD Primary Care Provider [phone] Jon Wang MD Unavailable [phone] Allergies No known active allergies Medications famotidine (PEPCID) 20 MG tablet Take 1 tablet (20 mg total) by mouth daily as needed. 08/26/19 25 Active melatonin 10 MG capsule Take 2 capsules (20 mg total) by mouth nightly. Active citalopram (CeleXA) 20 MG tablet Take 1 tablet (20 mg total) by mouth daily. 09/09/19 25 Active gabapentin (NEURONTIN) 100 MG capsuleIndicati ons:Chronic low back pain, unspecified back pain laterality, unspecified whether sciatica present Take 1 capsule (100 mg total) by mouth daily. 30 capsule 10/20/19 25 025 Active sucralfate (CARAFATE) 1 g tabletIndicatio ns:Gastrointest inal hemorrhage with hematemesis Take 1 tablet (1 g total) by mouth 4 (four) times a day. 120 tablet 10/20/19 25 025 Active PANTOprazole (PROTONIX) 40 MG EC tabletIndicatio ns:Gastrointest inal hemorrhage with hematemesis Take 1 tablet (40 mg total) by mouth 2 times a day. 60 tablet 3 10/20/19 25 026 Active misoprostol (CYTOTEC) 200 MCG tabletIndicatio ns:Gastrointest inal hemorrhage with hematemesis Take 1 tablet (200 mcg total) by mouth 4 (four) times a day after meals and nightly. 120 tablet 10/20/19 25 025 Active carvedilol (COREG) 6.25 MG tablet 1 tablet (6.25 mg total) by Mouth/Oral Cavity route every 12 hours. 07/26/19 25 025 Discontinued(St op Taking at Discharge) gabapentin (NEURONTIN) 300 MG capsule Take 1 capsule (300 mg total) by mouth 3 (three) times a day. 025 Discontinued sucralfate (CARAFATE) 1 g tablet Take 1 tablet (1 g total) by mouth 2 (two) times a day before meals. 09/23/19 025 Discontinued Active Problems Problem Noted Date Diagnosed Date Perforated ulcer 10/14/2024 Assessment & Plan (10/18/2024 11:21 AM EDT): Status post 3 units of PRBC now EGD done which did not show any identifiable source of bleeding CT abdomen pelvis showed perforated GJ ulcer for which she was taken emergently to the OR with diagnostic laparoscopy and lysis and David drain placement Status post David drain removal on 10/15 Plan: - Continue Protonix 40 mg twice a day - Will advance her diet to soft diet to see if she is able to tolerate better than liquids - Continue with Carafate 1 g twice a day - completed course of ceftriaxone and flagyl - Hemoglobin currently stable this morning at 8.2 - As per surgery she will be discharged on a soft diet, PPI twice daily, Carafate liquid 4 times daily and twice daily protein shakes Assessment & Plan (10/17/2024 11:31 AM EDT): Status post 3 units of PRBC now EGD done which did not show any identifiable source of bleeding CT abdomen pelvis showed perforated GJ ulcer for which she was taken emergently to the OR with diagnostic laparoscopy and lysis and David drain placement Status post David drain removal on 10/15 Plan: - Continue Protonix 40 mg twice a day - Continue with full liquid diet for now, patient was able to tolerate her diet well this morning but then started having some nausea with small amount of vomiting after eating - Continue with Carafate 1 g twice a day - Continue with ceftriaxone and Flagyl as per surgery - Hemoglobin currently stable this morning at 8.0 Assessment & Plan (10/16/2024 11:14 AM EDT): Status post 3 units of PRBC now EGD done which did not show any identifiable source of bleeding CT abdomen pelvis showed perforated GJ ulcer for which she was taken emergently to the OR with diagnostic laparoscopy and lysis and David drain placement Status post David drain removal on 10/15 Plan: - Continue Protonix 40 mg twice a day - Continue with full liquid diet for now - Continue with Carafate 1 g twice a day - Continue with ceftriaxone and Flagyl as per surgery - Hemoglobin currently stable this morning at 8.6 after 1 unit of PRBC yesterday Assessment & Plan (10/15/2024 2:20 PM EDT): Status post 2 units at outside hospital Plan: - EGD done which did not show any identifiable source of bleeding CT abdomen pelvis showed perforated GJ ulcer for which she was taken emergently to the OR with diagnostic laparoscopy, adhesiolysis and David drain placement - I did speak to surgery today and they were in agreement to take out the David drain today - Continue with Protonix 40 mg twice a day - Will upgrade to full liquid diet - No need for IV fluids at this time - Continue with Carafate 1 g twice daily - Will give her 1 unit of PRBC today as her hemoglobin is 7 - Continue ceftriaxone and Flagyl as per surgery Assessment & Plan (10/14/2024 2:51 PM EDT): She was initially admitted to OSH for hematemesis and melena. Her hemoglobin was 5.6 requiring 2 units of blood transfusion with improvement of H&H. Her hemoglobin have been stable and did not require any transfusion since presentation to . She had an EGD on 10/11 which did not identify any source of bleeding CT abdomen pelvis done on 10/13 remarkable for perforated GJ ulcer Patient was taken emergently to the OR underwent diagnostic laparoscopy, adhesiolysis and David drain placement in the epigastric area. Will start morphine every 4 hours as needed for pain Continue ceftriaxone and Flagyl Start metoprolol 200 mg 4 times daily Continue IV PPI twice daily Continue Carafate 1 g twice daily Start multivitamin and thiamine Start folic acid Bariatric clears GI and surgery teams following. Recommendations appreciated Hypotension 10/13/2024 Assessment & Plan (10/18/2024 11:21 AM EDT): Plan: - Sodium 137 this morning which is stable - Continue with fluid restriction - Continue with dialysis on Friday Assessment & Plan (10/17/2024 11:31 AM EDT): Plan: - Sodium 137 this morning which is stable - Continue with fluid restriction - Continue with dialysis on Friday Assessment & Plan (10/16/2024 11:14 AM EDT): Plan: - Sodium 135 this morning which is stable - Continue with fluid restriction - Continue with dialysis on Friday Assessment & Plan (10/15/2024 2:20 PM EDT): Plan: - Sodium is 132 this morning, will keep monitoring this daily although she is not symptomatic at this time - Continue with fluid restriction - Continue with dialysis on Friday, went for dialysis today Assessment & Plan (10/14/2024 2:51 PM EDT): Sodium overcorrected to 136 down to 134 over the last 24 hours (remains to be within target) Continue fluid restriction Continue HD MWF schedule Assessment & Plan (10/13/2024 4:03 PM EDT): Sodium trending down to 126 from 133 over the last 24 hours. Likely secondary to decreased p.o. intake. Will advance her diet and start fluid restriction to 1.5 L She is planned for dialysis today Hyponatremia 10/13/2024 Assessment & Plan (10/18/2024 11:21 AM EDT): Plan: - Sodium 137 this morning which is stable - Continue with fluid restriction - Continue with dialysis on Friday Assessment & Plan (10/17/2024 11:31 AM EDT): Plan: - Sodium 137 this morning which is stable - Continue with fluid restriction - Continue with dialysis on Friday Assessment & Plan (10/16/2024 11:14 AM EDT): Plan: - Sodium 135 this morning which is stable - Continue with fluid restriction - Continue with dialysis on Friday Assessment & Plan (10/15/2024 2:20 PM EDT): Plan: - Sodium is 132 this morning, will keep monitoring this daily although she is not symptomatic at this time - Continue with fluid restriction - Continue with dialysis on Friday, went for dialysis today Assessment & Plan (10/14/2024 2:51 PM EDT): Sodium overcorrected to 136 down to 134 over the last 24 hours (remains to be within target) Continue fluid restriction Continue HD MWF schedule Assessment & Plan (10/13/2024 4:03 PM EDT): Sodium trending down to 126 from 133 over the last 24 hours. Likely secondary to decreased p.o. intake. Will advance her diet and start fluid restriction to 1.5 L She is planned for dialysis today Chronic kidney disease (CKD), stage V 10/12/2024 Assessment & Plan (10/18/2024 11:21 AM EDT): Plan: - Sodium 137 this morning which is stable - Continue with fluid restriction - Continue with dialysis on Friday Assessment & Plan (10/17/2024 11:31 AM EDT): Plan: - Sodium 137 this morning which is stable - Continue with fluid restriction - Continue with dialysis on Friday Assessment & Plan (10/16/2024 11:14 AM EDT): Plan: - Sodium 135 this morning which is stable - Continue with fluid restriction - Continue with dialysis on Friday Assessment & Plan (10/15/2024 2:20 PM EDT): Plan: - Sodium is 132 this morning, will keep monitoring this daily although she is not symptomatic at this time - Continue with fluid restriction - Continue with dialysis on Friday, went for dialysis today Assessment & Plan (10/14/2024 2:51 PM EDT): Sodium overcorrected to 136 down to 134 over the last 24 hours (remains to be within target) Continue fluid restriction Continue HD MWF schedule Assessment & Plan (10/13/2024 4:03 PM EDT): Sodium trending down to 126 from 133 over the last 24 hours. Likely secondary to decreased p.o. intake. Will advance her diet and start fluid restriction to 1.5 L She is planned for dialysis today Assessment & Plan (10/12/2024 3:35 PM EDT): She is on MWF dialysis schedule. She underwent dialysis on 10/11. Plan for dialysis tomorrow Hypertension 10/12/2024 Assessment & Plan (10/18/2024 11:21 AM EDT): Plan: - Will continue to hold Coreg as her blood pressure is normal without it, will likely discontinue this on discharge as well Assessment & Plan (10/17/2024 11:31 AM EDT): Plan: - Continue to hold Coreg for now as her blood pressure has been normal without it Assessment & Plan (10/16/2024 11:14 AM EDT): Plan: - Continue to hold Coreg for now as her blood pressure has been normal without it Assessment & Plan (10/15/2024 2:20 PM EDT): Plan: - Will continue to hold Coreg at this time as she is only had 1 blood pressure reading that was high and the rest have been on the lower side of normal Assessment & Plan (10/14/2024 2:51 PM EDT): Continue holding carvedilol due to hypotension Assessment & Plan (10/13/2024 4:03 PM EDT): Continue holding carvedilol in the setting of hypotensive episodes Assessment & Plan (10/12/2024 3:35 PM EDT): Will hold carvedilol for now given low BP Acute on chronic anemia 10/12/2024 Assessment & Plan (10/18/2024 11:21 AM EDT): Status post 3 units of PRBC now EGD done which did not show any identifiable source of bleeding CT abdomen pelvis showed perforated GJ ulcer for which she was taken emergently to the OR with diagnostic laparoscopy and lysis and David drain placement Status post David drain removal on 10/15 Plan: - Continue Protonix 40 mg twice a day - Will advance her diet to soft diet to see if she is able to tolerate better than liquids - Continue with Carafate 1 g twice a day - completed course of ceftriaxone and flagyl - Hemoglobin currently stable this morning at 8.2 - As per surgery she will be discharged on a soft diet, PPI twice daily, Carafate liquid 4 times daily and twice daily protein shakes Assessment & Plan (10/17/2024 11:31 AM EDT): Status post 3 units of PRBC now EGD done which did not show any identifiable source of bleeding CT abdomen pelvis showed perforated GJ ulcer for which she was taken emergently to the OR with diagnostic laparoscopy and lysis and David drain placement Status post David drain removal on 10/15 Plan: - Continue Protonix 40 mg twice a day - Continue with full liquid diet for now, patient was able to tolerate her diet well this morning but then started having some nausea with small amount of vomiting after eating - Continue with Carafate 1 g twice a day - Continue with ceftriaxone and Flagyl as per surgery - Hemoglobin currently stable this morning at 8.0 Assessment & Plan (10/16/2024 11:14 AM EDT): Status post 3 units of PRBC now EGD done which did not show any identifiable source of bleeding CT abdomen pelvis showed perforated GJ ulcer for which she was taken emergently to the OR with diagnostic laparoscopy and lysis and David drain placement Status post David drain removal on 10/15 Plan: - Continue Protonix 40 mg twice a day - Continue with full liquid diet for now - Continue with Carafate 1 g twice a day - Continue with ceftriaxone and Flagyl as per surgery - Hemoglobin currently stable this morning at 8.6 after 1 unit of PRBC yesterday Assessment & Plan (10/15/2024 2:20 PM EDT): Status post 2 units at outside hospital Plan: - EGD done which did not show any identifiable source of bleeding CT abdomen pelvis showed perforated GJ ulcer for which she was taken emergently to the OR with diagnostic laparoscopy, adhesiolysis and David drain placement - I did speak to surgery today and they were in agreement to take out the David drain today - Continue with Protonix 40 mg twice a day - Will upgrade to full liquid diet - No need for IV fluids at this time - Continue with Carafate 1 g twice daily - Will give her 1 unit of PRBC today as her hemoglobin is 7 - Continue ceftriaxone and Flagyl as per surgery Assessment & Plan (10/14/2024 2:51 PM EDT): She was initially admitted to OSH for hematemesis and melena. Her hemoglobin was 5.6 requiring 2 units of blood transfusion with improvement of H&H. Her hemoglobin have been stable and did not require any transfusion since presentation to . She had an EGD on 10/11 which did not identify any source of bleeding CT abdomen pelvis done on 10/13 remarkable for perforated GJ ulcer Patient was taken emergently to the OR underwent diagnostic laparoscopy, adhesiolysis and David drain placement in the epigastric area. Will start morphine every 4 hours as needed for pain Continue ceftriaxone and Flagyl Start metoprolol 200 mg 4 times daily Continue IV PPI twice daily Continue Carafate 1 g twice daily Start multivitamin and thiamine Start folic acid Bariatric clears GI and surgery teams following. Recommendations appreciated Assessment & Plan (10/13/2024 4:03 PM EDT): She was initially admitted to OSH for hematemesis and melena. Her hemoglobin was 5.6 requiring 2 units of blood transfusion with improvement of H&H. Her hemoglobin have been stable and did not require any transfusion since presentation to . She had an EGD on 10/11 which did not identify any source of bleeding Continue IV PPI twice daily Continue Carafate 1 g twice daily Advance to regular diet CT abdomen and pelvis done. Pending read. Assessment & Plan (10/12/2024 3:35 PM EDT): She was initially admitted to OSH for hematemesis and melena. Her hemoglobin was 5.6 requiring 2 units of blood transfusion with improvement of H&H. Her hemoglobin have been stable and did not require any transfusion since presentation to . She had an EGD on 10/11 which did not identify any source of bleeding Continue IV PPI twice daily Continue Carafate 1 g twice daily GI team recommending CT abdomen pelvis with contrast. Ordered. Anxiety 10/12/2024 Assessment & Plan (10/18/2024 11:21 AM EDT): Plan: - Continue with Celexa Assessment & Plan (10/17/2024 11:31 AM EDT): Plan: - Continue with Celexa Assessment & Plan (10/16/2024 11:14 AM EDT): Plan: - Continue with Celexa Assessment & Plan (10/15/2024 2:20 PM EDT): Plan: - Continue with Celexa Assessment & Plan (10/14/2024 2:51 PM EDT): Continue Celexa Assessment & Plan (10/13/2024 4:03 PM EDT): Continue Celexa Assessment & Plan (10/12/2024 3:35 PM EDT): Continue Celexa 20 mg daily Depression 10/12/2024 Assessment & Plan (10/18/2024 11:21 AM EDT): Plan: - Continue with Celexa Assessment & Plan (10/17/2024 11:31 AM EDT): Plan: - Continue with Celexa Assessment & Plan (10/16/2024 11:14 AM EDT): Plan: - Continue with Celexa Assessment & Plan (10/15/2024 2:20 PM EDT): Plan: - Continue with Celexa Assessment & Plan (10/14/2024 2:51 PM EDT): Continue Celexa Assessment & Plan (10/13/2024 4:03 PM EDT): Continue Celexa Assessment & Plan (10/12/2024 3:35 PM EDT): Continue Celexa 20 mg daily Chronic lumbar pain 10/12/2024 Assessment & Plan (10/18/2024 11:21 AM EDT): Plan: - Continue with morphine, gabapentin and Robaxin Assessment & Plan (10/17/2024 11:31 AM EDT): Plan: - Continue with morphine 1 g every 4 hours - Continue gabapentin 100 mg daily - Continue Robaxin-750 milligrams 3 times daily as needed Assessment & Plan (10/16/2024 11:14 AM EDT): Plan: - Continue with morphine 1 g every 4 hours - Continue gabapentin 100 mg daily - Continue Robaxin-750 milligrams 3 times daily as needed Assessment & Plan (10/16/2024 11:14 AM EDT): Plan: - Continue with robaxin 3 times daily - Continue with morphine 1 g every 4 hours as needed for pain - Continue gabapentin 100 mg daily Assessment & Plan (10/14/2024 2:51 PM EDT): Continue gabapentin 100 mg daily Continue Robaxin-750 milligram 3 times daily as needed for pain Start morphine 1 g every 4 hours as needed for severe pain Assessment & Plan (10/13/2024 4:03 PM EDT): She has been requiring morphine to control her symptoms Continue gabapentin 100 mg daily Continue Robaxin-750 milligrams 3 times daily as needed for pain Assessment & Plan (10/12/2024 3:35 PM EDT): Continue gabapentin 100 mg daily Robaxin 500 mg x 1 given for lower back pain Will add Robaxin-750 milligram 3 times daily as needed for pain GIB (gastrointestinal bleeding) 10/11/2024 Assessment & Plan (10/18/2024 11:21 AM EDT): Status post 3 units of PRBC now EGD done which did not show any identifiable source of bleeding CT abdomen pelvis showed perforated GJ ulcer for which she was taken emergently to the OR with diagnostic laparoscopy and lysis and David drain placement Status post David drain removal on 10/15 Plan: - Continue Protonix 40 mg twice a day - Will advance her diet to soft diet to see if she is able to tolerate better than liquids - Continue with Carafate 1 g twice a day - completed course of ceftriaxone and flagyl - Hemoglobin currently stable this morning at 8.2 - As per surgery she will be discharged on a soft diet, PPI twice daily, Carafate liquid 4 times daily and twice daily protein shakes Assessment & Plan (10/17/2024 11:31 AM EDT): Status post 3 units of PRBC now EGD done which did not show any identifiable source of bleeding CT abdomen pelvis showed perforated GJ ulcer for which she was taken emergently to the OR with diagnostic laparoscopy and lysis and David drain placement Status post David drain removal on 10/15 Plan: - Continue Protonix 40 mg twice a day - Continue with full liquid diet for now, patient was able to tolerate her diet well this morning but then started having some nausea with small amount of vomiting after eating - Continue with Carafate 1 g twice a day - Continue with ceftriaxone and Flagyl as per surgery - Hemoglobin currently stable this morning at 8.0 Assessment & Plan (10/16/2024 11:14 AM EDT): Status post 3 units of PRBC now EGD done which did not show any identifiable source of bleeding CT abdomen pelvis showed perforated GJ ulcer for which she was taken emergently to the OR with diagnostic laparoscopy and lysis and David drain placement Status post David drain removal on 10/15 Plan: - Continue Protonix 40 mg twice a day - Continue with full liquid diet for now - Continue with Carafate 1 g twice a day - Continue with ceftriaxone and Flagyl as per surgery - Hemoglobin currently stable this morning at 8.6 after 1 unit of PRBC yesterday Assessment & Plan (10/15/2024 2:20 PM EDT): Status post 2 units at outside hospital Plan: - EGD done which did not show any identifiable source of bleeding CT abdomen pelvis showed perforated GJ ulcer for which she was taken emergently to the OR with diagnostic laparoscopy, adhesiolysis and David drain placement - I did speak to surgery today and they were in agreement to take out the David drain today - Continue with Protonix 40 mg twice a day - Will upgrade to full liquid diet - No need for IV fluids at this time - Continue with Carafate 1 g twice daily - Will give her 1 unit of PRBC today as her hemoglobin is 7 - Continue ceftriaxone and Flagyl as per surgery Assessment & Plan (10/14/2024 2:51 PM EDT): She was initially admitted to OSH for hematemesis and melena. Her hemoglobin was 5.6 requiring 2 units of blood transfusion with improvement of H&H. Her hemoglobin have been stable and did not require any transfusion since presentation to . She had an EGD on 10/11 which did not identify any source of bleeding CT abdomen pelvis done on 10/13 remarkable for perforated GJ ulcer Patient was taken emergently to the OR underwent diagnostic laparoscopy, adhesiolysis and David drain placement in the epigastric area. Will start morphine every 4 hours as needed for pain Continue ceftriaxone and Flagyl Start metoprolol 200 mg 4 times daily Continue IV PPI twice daily Continue Carafate 1 g twice daily Start multivitamin and thiamine Start folic acid Bariatric clears GI and surgery teams following. Recommendations appreciated Assessment & Plan (10/13/2024 4:03 PM EDT): She was initially admitted to OSH for hematemesis and melena. Her hemoglobin was 5.6 requiring 2 units of blood transfusion with improvement of H&H. Her hemoglobin have been stable and did not require any transfusion since presentation to . She had an EGD on 10/11 which did not identify any source of bleeding Continue IV PPI twice daily Continue Carafate 1 g twice daily Advance to regular diet CT abdomen and pelvis done. Pending read. Assessment & Plan (10/12/2024 3:35 PM EDT): She was initially admitted to OSH for hematemesis and melena. Her hemoglobin was 5.6 requiring 2 units of blood transfusion with improvement of H&H. Her hemoglobin have been stable and did not require any transfusion since presentation to . She had an EGD on 10/11 which did not identify any source of bleeding Continue IV PPI twice daily Continue Carafate 1 g twice daily GI team recommending CT abdomen pelvis with contrast. Ordered. Melena 10/10/2024 Encounters Date Type Department Care Team Description 10/13/2024 8:31 PM EDT Anesthesia Event [facility] Perioperative Surgical Services [address] [place] [phone] Enmanuel Fisher MD 10/13/2024 8:00 PM EDT - 10/13/2024 9:51 PM EDT [facility] Perioperative Surgical Services [address] [place] [phone] David Harrell MD LAPAROSCOPY DIAGNOSTIC, LYSIS OF ADHESIONS 10/11/2024 12:06 PM EDT Anesthesia Event [facility] Gastroenterology Division [address] [place] [phone] Irving Oliver DO Boucher, Sarah J, SANDY 10/11/2024 11:40 AM EDT - 10/11/2024 12:19 PM EDT [facility] Gastroenterology Division [address] [place] [phone] Kristopher Kramer MD ENDOSCOPY UPPER 10/11/2024 1:59 AM EDT - 10/19/2024 4:00 PM EDT Hospital Encounter [facility] [address] [place] [phone] Aniket Chand III, Roberta Gutiérrez MD Elajami, Mohamad, MD Sabir, Arina Calderon MD Gastrointestinal hemorrhage with hematemesis (Primary Dx); Melena; Chronic low back pain, unspecified back pain laterality, unspecified whether sciatica present Discharge Disposition: Home or Self Care 10/11/2024 Travel from Last 3 Months Social History Tobacco Use Types Packs/Day Years Used Date Smoking Tobacco: Former Cigarettes Passive Smoke Exposure: Past Tobacco Cessation:Counseling Given: Not Answered [facility] Utilities Answer Date Recorded In the past 12 months has th e electric, gas, oil, or water company threatened to shut off services in your home? No 10/11/2024 AUDIT-C Answer Date Recorded Q1: How often do you have a drink containing alcohol? Never 10/11/2024 Q2: How many drinks containi ng alcohol do you have on a typical day when you are drinking? Patient does not drink Q3: How often do you have si x or more drinks on one occasion? Never 10/11/2024 Overall Financial Resource Strain (CARDIA) Answe r Date Recorded How hard is it for you to pa y for the very basics like food, housing, medical care, and heating? Not very hard 10/11/2024 Hunger Vital Sign Answer Date Recorded Within the past 12 months, y ou worried that your food would run out before you got the money to buy more. Never true 10/12/19 25 Within the past 12 months, t he food you bought just didn't last and you didn't have money to get more. Never true 10/11/2024 PRAPARE - Transportation Answer Date Re corded In the past 12 months, has l ack of transportation kept you from medical appointments or from getting medications? No 02/2024 In the past 12 months, has l ack of transportation kept you from meetings, work, or from getting things needed for daily living? No 10/11/2024 Housing Stability Vital Sign Answer Fabio e Recorded In the last 12 months, was t here a time when you were not able to pay the mortgage or rent on time? No 10/11/2024 In the past 12 months, how m any times have you moved where you were living? 0 10/11/2024 At any time in the past 12 m [facility], were you homeless or living in a [facility] (including now)? No 10/11/2024 Comments Unknown Sex and Gender Information Value Date Recorded Sex Assigned at Female 10/11/2024 1:54 AM EDT Legal Sex Female 10:53 PM EDT Gender Identity Female 10/11/2024 1:54 AM EDT Sexual Orientation Choose not to disclose 2024 1:54 AM EDT Last Filed Vital Signs Vital Sign Reading Time Taken Comments Blood Pressure 110/60 10/19/2024 11:17 AM EDT Pulse 84 10/19/2024 11:17 AM EDT Temperature 36.3 C (97.3 F) 10/19/2024 11:17 AM EDT Respiratory Rate 18 10/19/2024 11:17 AM EDT Oxygen Saturation 100% 10/19/2024 11:17 AM EDT Inhaled Oxygen Concentration - - Weight 61.5 kg (135 lb 9.3 oz) 10/15/2024 11:00 AM EDT Height 167.6 cm (5' 5.98 ) 10/18/2024 12:15 PM E DT Body Mass Index 21.89 10/15/2024 11:00 AM EDT Plan of Treatment Health Maintenance Due Date Last Done Comments Hepatitis C Virus Screening 1970 HIV Screening 07/26/1984 DTaP/Tdap/Td Vaccines (1 - Tdap) 07/26/1990 Pneumococcal Vaccines 50+ (1 of 2 - PCV) 07/26/1990 Hepatitis B Vaccines (1 of 3 - Risk Dialysis 4-dose series) 1991 Pap Smear (Ages 21-65) 07/26/1992 Mammogram 2011 Colonoscopy 07/26/2016 Zoster (Shingles) Vaccine (1 of 2) 07/26/2021 Influenza Vaccine 09/10/2024 COVID-19 Vaccine ( - season) 2024 Procedures Procedure Name Priority Date/Time Associated Diagnosis Comments BASIC METABOLIC PANEL Routine 10/18/2024 7:19 AM EDT COMPLETE BLOOD COUNT, WITH DIFFERENTIAL Routine 10/18/2024 7:19 AM EDT BASIC METABOLIC PANEL Routine 10/17/2024 7:41 AM EDT COMPLETE BLOOD COUNT, WITH DIFFERENTIAL Routine 10/17/2024 7:41 AM EDT HEMODIALYSIS INPATIENT HH ONLY Routine 10/17/2024 12:05 AM EDT BASIC METABOLIC PANEL Routine 10/16/2024 7:14 AM EDT COMPLETE BLOOD COUNT, WITH DIFFERENTIAL Routine 10/16/2024 7:14 AM EDT TRANSFUSE RED BLOOD CELLS Routine 10/15/2024 6:56 PM EDT TYPE AND SCREEN Routine 10/15/2024 2:19 PM EDT HEMODIALYSIS INPATIENT HH ONLY Routine 10/15/2024 1:52 PM EDT PREPARE RBC'S Routine 10/15/2024 1:22 PM EDT PHOSPHORUS Routine 10/15/2024 7:57 AM EDT MAGNESIUM Routine 10/15/2024 7:57 AM EDT COMPLETE BLOOD COUNT, WITHOUT DIFFERENTIAL Routine 10/15/2024 7:57 AM EDT BASIC METABOLIC PANEL Routine 10/15/2024 7:57 AM EDT BASIC METABOLIC PANEL Routine 10/14/2024 10:10 AM EDT TRANSFERRIN Routine 10/14/2024 10:10 AM EDT PREALBUMIN Routine 10/14/2024 10:10 AM EDT ALBUMIN Routine 10/14/2024 10:10 AM EDT NICOTINE, COTININE, SERUM Routine 10/14/2024 5:50 AM EDT COMPLETE BLOOD COUNT, WITHOUT DIFFERENTIAL Routine 10/14/2024 5:50 AM EDT MAGNESIUM Routine 10/14/2024 5:50 AM EDT BASIC METABOLIC PANEL Routine 10/14/2024 5:50 AM EDT ANES INTUBATION Routine 10/13/2024 8:59 PM EDT ENDOSCOPY UPPER 10/13/2024 8:16 PM EDT Heart failure, unspecified HF chronicity, unspecified heart failure type (HCC) LAPAROSCOPY DIAGNOSTIC/EXPLORATOR Y ABDOMEN 10/13/2024 8:16 PM EDT Heart failure, unspecified HF chronicity, unspecified heart failure type (HCC) PREPARE RBC'S STAT 10/13/2024 8:07 PM EDT HEMODIALYSIS INPATIENT HH ONLY Routine 10/13/2024 5:22 PM EDT BASIC METABOLIC PANEL Routine 10/13/2024 11:09 AM EDT COMPLETE BLOOD COUNT, WITHOUT DIFFERENTIAL Routine 10/13/2024 9:[address] ABDOMEN+PELVIS W W/O CONTRAST Routine 10/13/2024 2:35 AM EDT HEPATITIS B VIRUS (HBV) SURFACE ANTIBODY Routine 10/11/2024 3:01 PM EDT HEPATITIS B VIRUS (HBV) CORE ANTIBODY TOTAL Routine 10/11/2024 3:01 PM EDT HEPATITIS B VIRUS (HBV) SURFACE ANTIGEN SCREEN, REFLEX CONFIRMATION Routine 10/11/2024 3:01 PM EDT POCT GLUCOSE, FINGERSTICK (CHARGE) Routine 10/11/2024 1:21 PM EDT ENDOSCOPY UPPER 10/11/2024 12:03 PM EDT Gastrointestinal hemorrhage with hematemesis Melena HEMODIALYSIS INPATIENT HH ONLY Routine 10/11/2024 8:36 AM EDT COMPLETE BLOOD COUNT, WITHOUT DIFFERENTIAL Routine 10/11/2024 7:01 AM EDT PHOSPHORUS Routine 10/11/2024 7:00 AM EDT MAGNESIUM Routine 10/11/2024 7:00 AM EDT BASIC METABOLIC PANEL Routine 10/11/2024 7:00 AM EDT XR CHEST 1 VIEW-PORTABLE STAT 10/11/2024 6:57 AM EDT LACTIC ACID, PLASMA Routine 10/11/2024 2 :25 AM EDT ABO CONFIRMATION STAT 10/11/2024 2:24 AM EDT HEPATIC FUNCTION PANEL STAT 10/11/2024 2:24 AM EDT BASIC METABOLIC PANEL STAT 10/11/2024 2:24 AM EDT COMPLETE BLOOD COUNT, WITH DIFFERENTIAL STAT 10/11/2024 2:24 AM EDT TYPE AND SCREEN STAT 10/11/2024 2:10 AM EDT POCT GLUCOSE, FINGERSTICK (CHARGE) Routine 10/11/2024 2:06 AM EDT from Last 3 Months Results * (ABNORMAL) Complete Blood Count WITH Differential - in AM (10/18/2024 7:19 AM EDT) Only the most recent of4 resultswithin the time period is included. [facility] White Blood Cell Count 4.4 4.0 - 11.0 Thou/uL 10/18/2024 8:09 AM EDT [facility] Platelet Count 275 150 - 450 Thou/uL 10/18/2024 8:09 AM EDT [facility] Hemoglobin 8.2(L) 11.7 - 15.7 g/dL 10/18/2024 8:09 AM EDT [facility] Hematocrit 25.4(L) 35.0 - 47.0 % 10/18/2024 8:09 AM [facility] Red Blood Cell Count 2.74(L) 4.00 - 5.40 Mil/uL 10/18/2024 8:09 AM [facility] MCV 93 80 - 100 fL 10/18/2024 8:09 AM [facility] MCH 29.9 27.0 - 31.0 pg 10/18/2024 8:09 AM [facility] MCHC 32.3 30.0 - 36.0 g/dL 10/18/2024 8:09 AM [facility] RDW 17.2(H) 11.5 - 14.5 % 10/18/2024 8:09 AM [facility] MPV 9.0 7.5 - 12.5 fL 10/18/2024 8:09 AM [facility] Neutrophils Auto 55.0 % 10/19/19 8:09 AM [facility] Immature Granulocytes 0.5 % 10/18/2024 8:09 AM [facility] Lymphocytes Auto 29.9 % 10/19/19 8:09 AM [facility] Monocytes Auto 9.4 % 10/18/2024 8:09 AM [facility] Eosinophils Auto 4.3 % 10/19/19 8:09 AM [facility] Basophils Auto 0.9 % 10/18/2024 8:09 AM [facility] Abs Neutrophils Auto 2.41 2.00 - 7.50 Thou/uL 10/18/2024 8:09 AM [facility] Abs Immature Granulocytes 0.02 0.00 - 0.10 Thou/uL 10/18/2024 8:09 AM [facility] Abs Lymphocytes Auto 1.31(L) 1.50 - 4.50 Thou/uL 10/18/2024 8:09 AM [facility] Abs Monocytes Auto 0.41 0.20 - 1.50 Thou/uL 10/18/2024 8:09 AM [facility] Abs Eosinophils Auto 0.19 0.00 - 0.70 Thou/uL 10/18/2024 8:09 AM [facility] Abs Basophils Auto 0.04 0.00 - 0.20 Thou/uL 10/18/2024 8:09 AM [facility] Blood Blood specimen / Unknown 10/18/2024 7:19 AM EDT 10/18/2024 7:55 AM EDT Arina Amaya MD LAB BLOOD ORDERABLES Final Result [address] [address], [facility] [address] [place] [address] * (ABNORMAL) Basic Metabolic Panel (10/18/2024 7:19 AM EDT) Only the most recent of9 resultswithin the time period is included. Glucose 87 65 - 99 mg/dL 10/18/2024 8:29 AM [facility] Comment:Fasting: <100 mg/dL, Non-Fasting: <200 mg/dL (ADA 2004) Blood Urea Nitrogen (BUN) 13 8 - 21 mg/dL 10/18/2024 8:29 AM [facility] Creatinine 4.8(H) 0.4 - 1.1 mg/dL 10/18/2024 8:29 AM [facility] eGFR 10(L) >59 10/18/2024 8:29 AM [facility] Comment:CKD-EPI (2020) in mL /min/1.73 sq meters. Sodium 137 136 - 145 mmol/L 10/18/2024 8:29 AM [facility] Potassium 3.6 3.4 - 5.3 mmol/L 10/18/2024 8:29 AM [facility] Chloride 103 98 - 107 mmol/L 10/18/2024 8:29 AM [facility] CO2 26 22 - 33 mmol/L 10/18/2024 8:29 AM [facility] Anion Gap 8 7 - 17 10/18/2024 8:29 AM [facility] Calcium 8.9 8.7 - 10.5 mg/dL 10/18/2024 8:29 AM [facility] BUN/Creatinine Ratio 3(L) 10.0 - 25.0 Ratio 10/18/2024 8:29 AM [facility] Blood Blood specimen / Unknown 10/18/2024 7:19 AM EDT 10/18/2024 7:55 AM EDT Arina Amaya MD LAB BLOOD ORDERABLES Final Result [address] [address], [address] [address] * Transfuse RBC's: (10/15/2024 9:14 PM EDT) Arina Amaya MD BLOOD TRANSFUSION ORDERABL ES Final Result * Type and Screen (10/15/2024 2:19 PM EDT) Only the most recent of2 resultswithin the time period is included. ABO/Rh O POSITIVE 10/15/2024 4:38 PM EDT [facility] Antibody Screen NEGATIVE 10/15/2024 4:38 PM EDT [facility] Specimen Expiration 10/18/2024 10/15/2024 4:38 PM EDT [facility] Unit Number [id number] 10/15/2024 6:22 PM EDT [facility] Blood Component Type LR RBC CONTAINER 2 10/15/2024 6:22 PM EDT [facility] Unit Division 00 10/15/2024 6:22 PM EDT [facility] Unit Status ISSUED,FINAL 10/16/2024 12:08 AM EDT [facility] Transfusion Status OK TO TRANSFUSE 10/15/2024 6:22 PM EDT [facility] Crossmatch Result Electronically Compatible 10/15/2024 6:22 PM EDT [facility] Blood Blood specimen / Unknown 10/15/2024 2:19 PM EDT 10/15/2024 3:38 PM EDT Comment:Blood Arina Amaya MD BLOOD BANK TEST ORDERABLES Final Result [facility] See Below [address] [address] * Prepare RBC's:Prepare in: Units; Number of Units: 1; Transfusion Indications: Hemoglobin less than 7 gm/dl or HCT less than 21% (10/15/2024 1:22 PM EDT) Only the most recent of2 resultswithin the time period is included. Units Ordered 1 10/15/2024 1:22 PM EDT 10/15/2024 1:22 PM EDT 10/15/2024 6:23 PM EDT us Arina Amaya MD BLOOD BANK PRODUCT ORDERAB LES Final Result [facility] See Below * (ABNORMAL) COMPLETE BLOOD COUNT, WITHOUT DIFFERENTIAL (10/15/2024 7:57 AM EDT) Only the most recent of4 resultswithin the time period is included. [facility] White Blood Cell Count 4.1 4.0 - 11.0 Thou/uL 10/15/2024 8:55 AM [facility] Platelet Count 218 150 - 450 Thou/uL 10/15/2024 8:55 AM [facility] Hemoglobin 7.0(L) 11.7 - 15.7 g/dL 10/15/2024 8:55 AM [facility] Hematocrit 21.8(L) 35.0 - 47.0 % 10/15/2024 8:55 AM [facility] Red Blood Cell Count 2.25(L) 4.00 - 5.40 Mil/uL 10/15/2024 8:55 AM [facility] MCV 97 80 - 100 fL 10/15/2024 8:55 AM [facility] MCH 31.1(H) 27.0 - 31.0 pg 10/15/2024 8:55 AM [facility] MCHC 32.1 30.0 - 36.0 g/dL 10/15/2024 8:55 AM [facility] RDW 14.4 11.5 - 14.5 % 10/15/2024 8:55 AM [facility] MPV 9.2 7.5 - 12.5 fL 10/15/2024 8:55 AM [facility] Blood Blood specimen / Unknown 10/15/2024 7:57 AM EDT 10/15/2024 8:[address] Foss MD LAB BLOOD ORDERABLES Final Re sult Performing Organization Address [facility] [place] [address], [address] [address] * Phosphorus (10/15/2024 7:57 AM EDT) Only the most recent of2 resultswithin the time period is included. Phosphorus 3.8 2.7 - 4.5 mg/dL 10/15/2024 11:43 AM EDT [facility] 10/15/2024 7:57 AM EDT 10/15/2024 8:[address] Foss MD LAB BLOOD ORDERABLES Final Re sult Performing Organization Address [facility] [place] [address], [address] [address] * Magnesium (10/15/2024 7:57 AM EDT) Only the most recent of3 resultswithin the time period is included. Magnesium 1.8 1.6 - 2.7 mg/dL 10/15/2024 10:04 AM EDT [facility] Blood Blood specimen / Unknown 10/15/2024 7:57 AM EDT 10/15/2024 8:[address] Foss MD LAB BLOOD ORDERABLES Final Re sult Performing Organization Address City/[facility] [place] [address], [address] [address] * (ABNORMAL) TRANSFERRIN (10/14/2024 10:10 AM EDT) Transferrin 125(L) 200 - 360 mg/dL 10/14/2024 12:13 PM EDT [facility] Blood Blood specimen / Unknown 10/14/2024 10:10 AM EDT 10/14/2024 11:23 AM EDT us David Harrell MD LAB BLOOD ORDERABLES Final R esult Performing Organization Address City/[facility]/[place] [address], [address] [address] * PREALBUMIN (10/14/2024 10:10 AM EDT) Prealbumin 24 20 - 40 mg/dL 10/14/2024 12:13 PM EDT [facility] Blood Blood specimen / Unknown 10/14/2024 10:10 AM EDT 10/14/2024 11:23 AM EDT us David Harrell MD LAB BLOOD ORDERABLES Final R esult Performing Organization Address [facility] [place] [address], [address] [address] * (ABNORMAL) ALBUMIN (10/14/2024 10:10 AM EDT) Albumin 3.1(L) 3.5 - 5.0 g/dL 10/14/2024 12:13 PM EDT [facility] Blood Blood specimen / Unknown 10/14/2024 10:10 AM EDT 10/14/2024 11:23 AM EDT us David Harrell MD LAB BLOOD ORDERABLES Final R esult Performing Organization Address [facility] [place] [address], [address] [address] * Nicotine, Cotinine, Serum (10/14/2024 5:50 AM EDT) Nicotine <2 ng/mL 10/19/2024 9:54 AM EDT [facility] Comment: (NOTE) Reference Ranges(ng/mL): Non-Smoker Active Tobacco User < or = to 4 2-10 Cotinine <2 ng/mL 10/19/2024 9:54 AM EDT [facility] Comment: (NOTE) Reference Ranges(ng/mL): Non-Smoker Active Tobacco User < or = to 8 16-145 This test was developed and its analytical performance characteristics have been determined by [facility] [place], [place]. It has not been cleared or approved by the U.S. Food and Drug Administration. This assay has been validated pursuant to the CLIA regulations and is used for clinical purposes. Blood Blood specimen / Unknown 10/14/2024 5:50 AM EDT 10/14/2024 6:22 AM EDT David Harrell MD LAB BLOOD ORDERABLES Final R esult [facility] [address] [facility] [id number] [place] [address] , [place], [place] [address] [facility] [address] [address] [place], [place] * ANES INTUBATION (10/13/2024 8:59 PM EDT) Narrative Jon House CRNA - 10/13/2024 8:59 PM EDT Jon House CRNA 10/13/2024 8:59 PM Anesthesia Procedure Note - intubation Patient Name: Meliza Perry : 1970 Patient location: [place] Procedure diagnosis: Anesthesia Performed by: Resident/STEVEDORING SUPERINTENDENT Preanesthetic Checklist . Patient's pre-procedure mental status: awake NPO status: > 8 hours Procedure Details Intubation route: oral Intubation method: Direct Larnygoscopy Number of attempts: 1 Patient status for intubation: paralyzed, sedated and RSI Patient position: supine and ramped Preoxygenation: BVM Quality of BVM: easy Tube size: 7.0 mm Tube: standard, EVAC - cuffed, cuff inflated and manometer Cricoid pressure not applied or not required Cord visualization: Grade I Placement confirmation method: chest rise and ETCO2 monitor Breath sounds: equal bilaterally and absent over the epigastrium ETT to lip: 21 cm Dentition: same as baseline Complications: no complications Additional comments: At baseline left upper front tooth loose, no change with DL us Enmanuel Fisher MD [place] ANESTHESIA Final Result * CT Abdomen+pelvis w w/o contrast (10/13/2024 2:35 AM EDT) Anatomical Region Laterality Modality Abdomen, Pelvis Computed Tomogra phy 10/13/2024 2:21 AM EDT Impressions 10/13/2024 4:45 PM EDT Postsurgical changes from gastric bypass. There is a small amount of free fluid and extraluminal air adjacent to the GJ anastomosis suspicious for perforation of an ulcer. No active extravasation. Urgent findings were relayed to via TT at 4:40pm on 10/13/24 and results were acknowledged. Narrative 10/13/2024 4:45 PM EDT EXAMINATION: CTA ABDOMEN AND PELVIS WITHOUT AND WITH CONTRAST CLINICAL INFORMATION: History sleeve gastrectomy, GI bleed COMPARISON: CT abdomen pelvis on 07/14/2024 TECHNIQUE: Multidetector volumetric imaging was performed through the abdomen prior to IV contrast. The abdomen and pelvis were then reexamined after the administration of 80 mL of Omnipaque 300 intravenous contrast. Sagittal and coronal reformatted images were obtained on the technologist's workstation. MIPS images were created and reviewed. This CT examination was performed using dose optimization techniques as appropriate, variously including the following: *Automated exposure control *Adjustment of mA and/or kV according to patient size (this includes techniques or standardized protocols for targeted exams where dose is matched to indication/reason for exam; i.e. extremities or head) *Use of iterative reconstruction technique DLP: 795 mGy-cm FINDINGS: LUNG BASES: Bibasilar atelectasis LIVER, GALLBLADDER, AND BILIARY TREE: The liver is normal in size, shape, and attenuation. No focal hepatic lesion or biliary ductal dilatation is present. The gallbladder is unremarkable with no evidence of radiopaque gallstones, gallbladder wall thickening, or obvious pericholecystic inflammatory changes. PANCREAS: Unremarkable. SPLEEN: Unremarkable. ADRENAL GLANDS: Unremarkable. KIDNEYS AND URETERS: The kidneys are normal in size, shape, and attenuation. No hydronephrosis, hydroureter, or calculi seen. BLADDER: Unremarkable. GASTROINTESTINAL TRACT: Postsurgical changes from gastric bypass. There is a small amount of free fluid and extraluminal air adjacent to the GJ anastomosis. No active extravasation. ABDOMINAL WALL: No significant hernia is appreciated. Trace free fluid throughout the abdomen and pelvis. LYMPH NODES: Normal. VASCULAR: Minimal atherosclerotic disease. The celiac artery, SMA, bilateral renal arteries, and LAVONNE are patent. The iliofemoral arteries are patent. PELVIC VISCERA: Unremarkable. OSSEOUS STRUCTURES: Unremarkable. Procedure Note Mary Salinas MD - 10/13/2024 EXAMINATION: CTA ABDOMEN AND PELVIS WITHOUT AND WITH CONTRAST CLINICAL INFORMATION: History sleeve gastrectomy, GI bleed COMPARISON: CT abdomen pelvis on 07/14/2024 TECHNIQUE: Multidetector volumetric imaging was performed through the abdomen prior to IV contrast. The abdomen and pelvis were then reexamined after the administration of 80 mL of Omnipaque 300 intravenous contrast. Sagittal and coronal reformatted images were obtained on the technologist's workstation. MIPS images were created and reviewed. This CT examination was performed using dose optimization techniques as appropriate, variously including the following: *Automated exposure control *Adjustment of mA and/or kV according to patient size (this includes techniques or standardized protocols for targeted exams where dose is matched to indication/reason for exam; i.e. extremities or head) *Use of iterative reconstruction technique DLP: 795 mGy-cm FINDINGS: LUNG BASES: Bibasilar atelectasis LIVER, GALLBLADDER, AND BILIARY TREE: The liver is normal in size, shape, and attenuation. No focal hepatic lesion or biliary ductal dilatation is present. The gallbladder is unremarkable with no evidence of radiopaque gallstones, gallbladder wall thickening, or obvious pericholecystic inflammatory changes. PANCREAS: Unremarkable. SPLEEN: Unremarkable. ADRENAL GLANDS: Unremarkable. KIDNEYS AND URETERS: The kidneys are normal in size, shape, and attenuation. No hydronephrosis, hydroureter, or calculi seen. BLADDER: Unremarkable. GASTROINTESTINAL TRACT: Postsurgical changes from gastric bypass. There is a small amount of free fluid and extraluminal air adjacent to the GJ anastomosis. No active extravasation. ABDOMINAL WALL: No significant hernia is appreciated. Trace free fluid throughout the abdomen and pelvis. LYMPH NODES: Normal. VASCULAR: Minimal atherosclerotic disease. The celiac artery, SMA, bilateral renal arteries, and LAVONNE are patent. The iliofemoral arteries are patent. PELVIC VISCERA: Unremarkable. OSSEOUS STRUCTURES: Unremarkable. IMPRESSION: Postsurgical changes from gastric bypass. There is a small amount of free fluid and extraluminal air adjacent to the GJ anastomosis suspicious for perforation of an ulcer. No active extravasation. Urgent findings were relayed to via TT at 4:40pm on 10/13/24 and results were [address]. Ct Foss MD IMG CT ORDERABLES Final Resul t * Hepatitis B Virus (HBV) Surface Antigen Screen, Reflex Confirmation (10/11/2024 3:01 PM EDT) Hepatitis B Surface Ag Screen Nonreactive Nonreactive 10/12/2024 11:17 AM EDT [facility] Blood Blood specimen / Unknown 10/11/2024 3:01 PM EDT 10/11/2024 4:41 PM EDT Efrain Campos MD LAB BLOOD ORDERABLES Final Result [facility] [address] [place] [address], [place] * Hepatitis B Virus (HBV) Core Antibody Total (10/11/2024 3:01 PM EDT) Hepatitis B Core Antibody Total Nonreactive Nonreactive 10/12/2024 11:17 AM EDT [facility] Blood Blood specimen / Unknown 10/11/2024 3:01 PM EDT 10/11/2024 4:41 PM EDT Efrain Campos MD LAB BLOOD ORDERABLES Final Result [facility] [address] [place] [address], [place] * Hepatitis B Virus (HBV) Surface Antibody (10/11/2024 3:01 PM EDT) Pathologist [facility] Hepatitis B Surface Antibody Reactive (Immune) Reactive (Immune) 10/12/2024 11:17 AM EDT [facility] Blood Blood specimen / Unknown 10/11/2024 3:01 PM EDT 10/11/2024 4:41 PM EDT Efrain Campos MD LAB BLOOD ORDERABLES Final Result [facility] [address] [place] [address], [place] * POCT Glucose, Fingerstick (10/11/2024 1:21 PM EDT) Only the most recent of2 resultswithin the time period is included. [facility] POC Glucose 86 65 - 99 mg/dL 10/11/2024 1:25 PM EDT Blood specimen / Unknown 10/11/2024 1:21 PM EDT 10/11/2024 1:25 PM EDT Aniket Knight Arters III, DO POINT OF CARE TEST ORDERA BLES Final Result Performing Organization Address [facility] Co de Phone Number HOSPITAL LAB See Below * XR Chest 1 view-Portable (STAT) (10/11/2024 6:57 AM EDT) Anatomical Region Laterality Modality Chest Computed Radiogr aphy 10/11/2024 6:42 AM EDT Impressions 10/11/2024 7:45 AM EDT No acute cardiopulmonary findings. Narrative 10/11/2024 7:45 AM EDT EXAMINATION: XR CHEST CLINICAL INFORMATION: Shortness of breath. Wheezing. COMPARISON: None available. TECHNIQUE: Frontal view of the chest was obtained. FINDINGS: The lungs are clear. The cardiomediastinal silhouette is normal in size. There is no pleural effusion or pneumothorax. No acute osseous abnormality. Procedure Note Sheldon Portillo MD - 10/11/2024 EXAMINATION: XR CHEST CLINICAL INFORMATION: Shortness of breath. Wheezing. COMPARISON: None available. TECHNIQUE: Frontal view of the chest was obtained. FINDINGS: The lungs are clear. The cardiomediastinal silhouette is normal in size. There is no pleural effusion or pneumothorax. No acute osseous abnormality. IMPRESSION: No acute cardiopulmonary findings. [facility] ORDERABLE S Final Result * Lactic Acid, Plasma (10/11/2024 2:25 AM EDT) Lactic Acid 1.3 0.5 - 1.9 mmol/L 10/11/2024 3:00 AM EDT [facility] Blood Blood specimen / Unknown 10/11/2024 2:25 AM EDT 10/11/2024 2:43 AM EDT Aniket Chand III, DO LAB BLOOD ORDERABLES Jennifer l Result Performing Organization Address [facility] [place] [address], [place] [address] * ABO Confirmation (10/11/2024 2:24 AM EDT) ABO/Rh O POSITIVE 10/11/2024 3:26 AM EDT [facility] Blood Blood specimen / Unknown 10/11/2024 2:24 AM EDT 10/11/2024 2:51 AM EDT Aniket Chand III, BLOOD BANK TEST ORDERABLE S Final Result Performing Organization Address City/[facility] [place] [address], [place] [address] * (ABNORMAL) Hepatic function panel (10/11/2024 2:24 AM EDT) Alkaline Phosphatase 91 32 - 122 U/L 10/11/2024 3:03 AM EDT [facility] Aspartate Aminotrans (AST) 10 10 - 50 U/L 10/11/2024 3:03 AM EDT [facility] Alanine Aminotrans (ALT) 5(L) 10 - 50 U/L 10/11/2024 3:13 AM EDT [facility] Bilirubin, Total 0.3 0.2 - 1.0 mg/dL 10/11/2024 3:03 AM EDT [facility] Protein, Total 4.6(L) 6.3 - 8.3 g/dL 10/11/2024 3:03 AM EDT [facility] Albumin 2.7(L) 3.5 - 5.0 g/dL 10/11/2024 3:03 AM EDT [facility] Bilirubin, Direct 0.1 0 - 0.2 mg/dL 10/11/2024 3:03 AM EDT [facility] Globulin 1.9 1.5 - 3.9 g/dL 10/11/2024 3:03 AM EDT [facility] Albumin/Globulin Ratio 1.4 1.0 - 3.0 Ratio 10/11/2024 3:03 AM EDT [facility] Blood Blood specimen / Unknown 10/11/2024 2:24 AM EDT 10/11/2024 2:44 AM EDT us Aniket Chand III, DO LAB BLOOD ORDERABLES Jennifer alarcon Result [address] [address], [address] [id number] from Last 3 Months Insurance [facility] MEDICARE PART A & B [facility] MEDIC[facility] PART A & B [facility] MEDIC[facility] PART A & B Advance Directives * Full Code (Latest Code Status on File) Date Activated Date Inactivated Comments 10/11/2024 5:25 AM Care Teams Radiographer Cardiac Catheterization Relationship Specialty Start Date End Date Rozina Nicole MD [address] [place] [address] PCP - General Family Medicine 10/11/24 Jon Wang MD [address] [facility] [address] [place] [address] Physician Internal Medicine 10/11/24
--- OUTSIDE RECORDS SUMMARY | 2024-11-05 16:09 | XMS_ITS ---
Author Name [facility] Organization Unknown Results Test Name/Text Value Interpretation Date Range Source Potassium SerPl-sCnc 3.6 mmol/L 10/18/2024 3.4 - 5.3 H[facility]CT Creat SerPl-mCnc 4.8 mg/dL Above high normal 10/18/2024 0.4 - 1.1 HHCCT CO2 SerPl-sCnc 26.0 mmol/L 10/18/2024 22 - 33 HH CCT GFR/BSA.pred SerPlBld HNP-HCZ-PxMBvn 10.0 Below low normal 10/18/2024 59 - HHCCT Calcium SerPl-mCnc 8.9 mg/dL 10/18/2024 8.7 - 10.5 HHCCT Anion Gap Bld-sCnc 8.0 10/18/2024 7 - 17 HHCCT Sodium SerPl-sCnc 137.0 mmol/L 10/18/2024 136 - 14 5 HHCCT Chloride SerPl-sCnc 103.0 mmol/L 10/18/2024 98 - 1 07 HHCCT BUN/Creat SerPl 3.0 Ratio Below low normal 10/18/2024 10 - 2 5 HHCCT BUN SerPl-mCnc 13.0 mg/dL 10/18/2024 8 - [address] Glucose SerPl-mCnc 87.0 mg/dL 10/18/2024 65 - 99 HHCCT RDW RBC Auto-Rto 17.2 % Above high normal 10/18/2024 11.5 - 14.5 HHCCT Lymphocytes/leuk NFr Bld Auto 29.9 % 10/18/2024 HHCCT Eosinophil num Bld Auto 0.19 Thou/uL 10/18/2024 0 - 0.7 HHCCT Monocytes/leuk NFr Bld Auto 9.4 % 10/18/2024 H[facility]CT Imm Granulocytes num Bld Auto 0.02 Thou/uL 10/18/2024 0 - 0.1 HHCCT Neutrophils num Bld Auto 2.41 Thou/uL 10/18/2024 2 - 7.5 HHCCT MCH RBC Qn Auto 29.9 pg 10/18/2024 27 - [address] Neutrophils/leuk NFr Bld Auto 55.0 % 10/18/2024 HHCCT Basophils num Bld Auto 0.04 Thou/uL 10/18/2024 0 - 0.2 HHCCT Monocytes num Bld Auto 0.41 Thou/uL 10/18/2024 0.2 - 1.5 HHCCT Imm Granulocytes/leuk NFr Bld Auto 0.5 % 10/18/2024 HHCCT Hct VFr Bld Auto 25.4 % Below low normal 10/18/2024 35 - 47 HHCCT Hgb Bld-mCnc 8.2 g/dL Below low normal 10/18/2024 11.7 - 15 .7 HHCCT MCHC RBC Auto-mCnc 32.3 g/dL 10/18/2024 30 - 36 HHCCT WBC num Bld Auto 4.4 Thou/uL 10/18/2024 4 - 11 HHCCT Eosinophil/leuk NFr Bld Auto 4.3 % 10/18/2024 HHCCT Basophils/leuk NFr Bld Auto 0.9 % 10/18/2024 HHCCT Lymphocytes num Bld Auto 1.31 Thou/uL Below low normal 10/18/2024 1.5 - 4.5 HHCCT Platelet num Bld Auto 275.0 Thou/uL 10/18/2024 150 - 450 HHCCT MCV RBC Auto 93.0 fL 10/18/2024 80 - 100 HHCCT RBC num Bld Auto 2.74 Mil/uL Below low normal 10/18/2024 4 - 5.4 HHCCT PMV Bld Auto 9.0 fL 10/18/2024 7.5 - 12.5 HHCCT Creat SerPl-mCnc 4.1 mg/dL Above high normal 10/17/2024 0.4 - 1.1 HHCCT Potassium SerPl-sCnc 3.8 mmol/L 10/17/2024 3.4 - 5.3 HHCCT Calcium SerPl-mCnc 8.6 mg/dL Below low normal 10/17/2024 8.7 - 10.5 HHCCT BUN SerPl-mCnc 10.0 mg/dL 10/17/2024 8 - [address] GFR/BSA.pred SerPlBld BJG-GLR-IpBInh 12.0 Below low normal 10/17/2024 59 - HHCCT Sodium SerPl-sCnc 137.0 mmol/L 10/17/2024 136 - 14 5 HHCCT BUN/Creat SerPl 2.0 Ratio Below low normal 10/17/2024 10 - 2 5 HHCCT Anion Gap Bld-sCnc 10.0 10/17/2024 7 - 17 HHCCT CO2 SerPl-sCnc 25.0 mmol/L 10/17/2024 22 - 33 HH CCT Glucose SerPl-mCnc 87.0 mg/dL 10/17/2024 65 - 99 HHCCT Chloride SerPl-sCnc 102.0 mmol/L 10/17/2024 98 - 1 07 HHCCT WBC num Bld Auto 4.1 Thou/uL 10/17/2024 4 - 11 HHCCT Neutrophils/leuk NFr Bld Auto 57.9 % 10/17/2024 HHCCT Hgb Bld-mCnc 8.0 g/dL Below low normal 10/17/2024 11.7 - 15 .7 HHCCT Platelet num Bld Auto 249.0 Thou/uL 10/17/2024 150 - 450 HHCCT RBC num Bld Auto 2.69 Mil/uL Below low normal 10/17/2024 4 - 5.4 HHCCT Eosinophil/leuk NFr Bld Auto 2.9 % 10/17/2024 HHCCT Lymphocytes/leuk NFr Bld Auto 27.5 % 10/17/2024 HHCCT Basophils/leuk NFr Bld Auto 1.0 % 10/17/2024 HHCCT PMV Bld Auto 9.0 fL 10/17/2024 7.5 - 12.5 HHCCT MCHC RBC Auto-mCnc 32.7 g/dL 10/17/2024 30 - 36 HHCCT Monocytes num Bld Auto 0.42 Thou/uL 10/17/2024 0.2 - 1.5 HHCCT Basophils num Bld Auto 0.04 Thou/uL 10/17/2024 0 - 0.2 HHCCT Monocytes/leuk NFr Bld Auto 10.2 % 10/17/2024 HHCCT RDW RBC Auto-Rto 17.3 % Above high normal 10/17/2024 11.5 - 14.5 HHCCT Eosinophil num Bld Auto 0.12 Thou/uL 10/17/2024 0 - 0.7 HHCCT Neutrophils num Bld Auto 2.38 Thou/uL 10/17/2024 2 - 7.5 HHCCT Imm Granulocytes num Bld Auto 0.02 Thou/uL 10/17/2024 0 - 0.1 HHCCT MCV RBC Auto 91.0 fL 10/17/2024 80 - 100 HHCCT Lymphocytes num Bld Auto 1.13 Thou/uL Below low normal 10/17/2024 1.5 - 4.5 HHCCT MCH RBC Qn Auto 29.7 pg 10/17/2024 27 - [address] Hct VFr Bld Auto 24.5 % Below low normal 10/17/2024 35 - 47 HHCCT Imm Granulocytes/leuk NFr Bld Auto 0.5 % 10/17/2024 HHCCT BUN SerPl-mCnc 6.0 mg/dL Below low normal 10/16/2024 8 - 21 HHCCT GFR/BSA.pred SerPlBld BPC-GAC-HvRKnw 20.0 Below low normal 10/16/2024 59 - HHCCT Anion Gap Bld-sCnc 8.0 10/16/2024 7 - 17 HHCCT CO2 SerPl-sCnc 27.0 mmol/L 10/16/2024 22 - 33 HH CCT Creat SerPl-mCnc 2.8 mg/dL Above high normal 10/16/2024 0.4 - 1.1 HHCCT Sodium SerPl-sCnc 135.0 mmol/L Below low normal 10/16/2024 1 36 - 145 HHCCT Chloride SerPl-sCnc 100.0 mmol/L 10/16/2024 98 - 1 07 HHCCT BUN/Creat SerPl 2.0 Ratio Below low normal 10/16/2024 10 - 2 5 HHCCT Calcium SerPl-mCnc 8.6 mg/dL Below low normal 10/16/2024 8.7 - 10.5 HHCCT Potassium SerPl-sCnc 3.6 mmol/L 10/16/2024 3.4 - 5.3 HHCCT Glucose SerPl-mCnc 80.0 mg/dL 10/16/2024 65 - 99 HHCCT Hgb Bld-mCnc 8.6 g/dL Below low normal 10/16/2024 11.7 - 15 .7 HHCCT Eosinophil num Bld Auto 0.13 Thou/uL 10/16/2024 0 - 0.7 HHCCT Hct VFr Bld Auto 26.3 % Below low normal 10/16/2024 35 - 47 HHCCT Neutrophils num Bld Auto 4.04 Thou/uL 10/16/2024 2 - 7.5 HHCCT RBC num Bld Auto 2.86 Mil/uL Below low normal 10/16/2024 4 - 5.4 HHCCT RDW RBC Auto-Rto 17.9 % Above high normal 10/16/2024 11.5 - 14.5 HHCCT Basophils num Bld Auto 0.03 Thou/uL 10/16/2024 0 - 0.2 HHCCT MCHC RBC Auto-mCnc 32.7 g/dL 10/16/2024 30 - 36 HHCCT PMV Bld Auto 9.1 fL 10/16/2024 7.5 - 12.5 HHCCT Basophils/leuk NFr Bld Auto 0.5 % 10/16/2024 HHCCT MCV RBC Auto 92.0 fL 10/16/2024 80 - 100 HHCCT Lymphocytes num Bld Auto 1.0 Thou/uL Below low normal 10/16/2024 1.5 - 4.5 HHCCT Imm Granulocytes/leuk NFr Bld Auto 0.4 % 10/16/2024 HHCCT Neutrophils/leuk NFr Bld Auto 71.3 % 10/16/2024 HHCCT Lymphocytes/leuk NFr Bld Auto 17.7 % 10/16/2024 HHCCT Eosinophil/leuk NFr Bld Auto 2.3 % 10/16/2024 HHCCT Imm Granulocytes num Bld Auto 0.02 Thou/uL 10/16/2024 0 - 0.1 HHCCT Monocytes/leuk NFr Bld Auto 7.8 % 10/16/2024 HHCCT WBC num Bld Auto 5.7 Thou/uL 10/16/2024 4 - 11 HHCCT MCH RBC Qn Auto 30.1 pg 10/16/2024 27 - [address] Platelet num Bld Auto 244.0 Thou/uL 10/16/2024 150 - 450 HHCCT Monocytes num Bld Auto 0.44 Thou/uL 10/16/2024 0.2 - 1.5 HHCCT Phosphate SerPl-mCnc 3.8 mg/dL 10/15/2024 2.7 - 4.5 HHCCT GFR/BSA.pred SerPlBld USN-XPK-DtOKxf 13.0 Below low normal 10/15/2024 59 - HHCCT Calcium SerPl-mCnc 8.4 mg/dL Below low normal 10/15/2024 8.7 - 10.5 HHCCT BUN/Creat SerPl 3.0 Ratio Below low normal 10/15/2024 10 - 2 5 HHCCT Glucose SerPl-mCnc 76.0 mg/dL 10/15/2024 65 - 99 HHCCT Creat SerPl-mCnc 4.0 mg/dL Above high normal 10/15/2024 0.4 - 1.1 HHCCT Potassium SerPl-sCnc 3.9 mmol/L 10/15/2024 3.4 - 5.3 HHCCT BUN SerPl-mCnc 13.0 mg/dL 10/15/2024 8 - [address] Sodium SerPl-sCnc 132.0 mmol/L Below low normal 10/15/2024 1 36 - 145 HHCCT Chloride SerPl-sCnc 98.0 mmol/L 10/15/2024 98 - 10 7 HHCCT CO2 SerPl-sCnc 24.0 mmol/L 10/15/2024 22 - 33 HH CCT Anion Gap Bld-sCnc 10.0 10/15/2024 7 - 17 HHCCT Magnesium SerPl-mCnc 1.8 mg/dL 10/15/2024 1.6 - 2.7 HHCCT Hgb Bld-mCnc 7.0 g/dL Below low normal 10/15/2024 11.7 - 15 .7 HHCCT WBC num Bld Auto 4.1 Thou/uL 10/15/2024 4 - 11 HHCCT RBC num Bld Auto 2.25 Mil/uL Below low normal 10/15/2024 4 - 5.4 HHCCT MCV RBC Auto 97.0 fL 10/15/2024 80 - 100 HHCCT MCH RBC Qn Auto 31.1 pg Above high normal 10/15/2024 27 - 31 HHCCT PMV Bld Auto 9.2 fL 10/15/2024 7.5 - 12.5 HHCCT Hct VFr Bld Auto 21.8 % Below low normal 10/15/2024 35 - 47 HHCCT RDW RBC Auto-Rto 14.4 % 10/15/2024 11.5 - 14.5 HHCCT MCHC RBC Auto-mCnc 32.1 g/dL 10/15/2024 30 - 36 HHCCT Platelet num Bld Auto 218.0 Thou/uL 10/15/2024 150 - 450 HHCCT Prealb SerPl-mCnc 24.0 mg/dL 10/14/2024 20 - 40 HHCCT Albumin SerPl-mCnc 3.1 g/dL Below low normal 10/14/2024 3.5 - 5 HHCCT Transferrin SerPl-mCnc 125.0 mg/dL Below low normal 10/14/2024 200 - 360 HHCCT Glucose SerPl-mCnc 87.0 mg/dL 10/14/2024 65 - 99 HHCCT Anion Gap Bld-sCnc 11.0 10/14/2024 7 - 17 HHCCT Potassium SerPl-sCnc 4.3 mmol/L 10/14/2024 3.4 - 5.3 HHCCT Sodium SerPl-sCnc 134.0 mmol/L Below low normal 10/14/2024 1 36 - 145 HHCCT GFR/BSA.pred SerPlBld CAS-AUD-NmIMvl 19.0 Below low normal 10/14/2024 59 - HHCCT Creat SerPl-mCnc 2.9 mg/dL Above high normal 10/14/2024 0.4 - 1.1 HHCCT Calcium SerPl-mCnc 8.7 mg/dL 10/14/2024 8.7 - 10.5 HHCCT BUN/Creat SerPl 3.0 Ratio Below low normal 10/14/2024 10 - 2 5 HHCCT BUN SerPl-mCnc 9.0 mg/dL 10/14/2024 8 - 21 HHCC T CO2 SerPl-sCnc 26.0 mmol/L 10/14/2024 22 - 33 HH CCT Chloride SerPl-sCnc 97.0 mmol/L Below low normal 10/14/2024 98 - 107 HHCCT Cotinine SerPl-mCnc <2.0 ng/mL 10/19/2024 - HHCCT Nicotine SerPl-mCnc <2.0 ng/mL 10/19/2024 - HHCCT Magnesium SerPl-mCnc 2.0 mg/dL 10/14/2024 1.6 - 2.7 HHCCT Potassium SerPl-sCnc 4.0 mmol/L 10/14/2024 3.4 - 5.3 HHCCT CO2 SerPl-sCnc 29.0 mmol/L 10/14/2024 22 - 33 HH CCT Creat SerPl-mCnc 2.7 mg/dL Above high normal 10/14/2024 0.4 - 1.1 HHCCT GFR/BSA.pred SerPlBld AQM-ESF-LuGEhb 20.0 Below low normal 10/14/2024 59 - HHCCT Chloride SerPl-sCnc 103.0 mmol/L 10/14/2024 98 - 1 07 HHCCT Sodium SerPl-sCnc 139.0 mmol/L 10/14/2024 136 - 14 5 HHCCT Calcium SerPl-mCnc 8.7 mg/dL 10/14/2024 8.7 - 10.5 HHCCT Anion Gap Bld-sCnc 7.0 10/14/2024 7 - 17 HHCCT BUN/Creat SerPl 3.0 Ratio Below low normal 10/14/2024 10 - 2 5 HHCCT Glucose SerPl-mCnc 83.0 mg/dL 10/14/2024 65 - 99 HHCCT BUN SerPl-mCnc 9.0 mg/dL 10/14/2024 8 - 21 HHCC T MCHC RBC Auto-mCnc 32.5 g/dL 10/14/2024 30 - 36 HHCCT RDW RBC Auto-Rto 14.4 % 10/14/2024 11.5 - 14.5 HHCCT MCH RBC Qn Auto 31.6 pg Above high normal 10/14/2024 27 - 31 HHCCT Hct VFr Bld Auto 24.3 % Below low normal 10/14/2024 35 - 47 HHCCT MCV RBC Auto 97.0 fL 10/14/2024 80 - 100 HHCCT Hgb Bld-mCnc 7.9 g/dL Below low normal 10/14/2024 11.7 - 15 .7 HHCCT PMV Bld Auto 9.5 fL 10/14/2024 7.5 - 12.5 HHCCT WBC num Bld Auto 5.8 Thou/uL 10/14/2024 4 - 11 HHCCT RBC num Bld Auto 2.5 Mil/uL Below low normal 10/14/2024 4 - 5.4 HHCCT Platelet num Bld Auto 243.0 Thou/uL 10/14/2024 150 - 450 HHCCT GFR/BSA.pred SerPlBld OMQ-ZVE-DiEEac 12.0 Below low normal 10/13/2024 59 - HHCCT Anion Gap Bld-sCnc 10.0 10/13/2024 7 - 17 HHCCT Sodium SerPl-sCnc 126.0 mmol/L Below low normal 10/13/2024 1 36 - 145 HHCCT BUN/Creat SerPl 6.0 Ratio Below low normal 10/13/2024 10 - 2 5 HHCCT Potassium SerPl-sCnc 4.3 mmol/L 10/13/2024 3.4 - 5.3 HHCCT CO2 SerPl-sCnc 25.0 mmol/L 10/13/2024 22 - 33 HH CCT Calcium SerPl-mCnc 8.6 mg/dL Below low normal 10/13/2024 8.7 - 10.5 HHCCT BUN SerPl-mCnc 26.0 mg/dL Above high normal 10/13/2024 8 - 2 1 HHCCT Creat SerPl-mCnc 4.3 mg/dL Above high normal 10/13/2024 0.4 - 1.1 HHCCT Chloride SerPl-sCnc 91.0 mmol/L Below low normal 10/13/2024 98 - 107 HHCCT Glucose SerPl-mCnc 78.0 mg/dL 10/13/2024 65 - 99 HHCCT Platelet num Bld Auto 213.0 Thou/uL 10/13/2024 150 - 450 HHCCT WBC num Bld Auto 4.2 Thou/uL 10/13/2024 4 - 11 HHCCT Hgb Bld-mCnc 8.5 g/dL Below low normal 10/13/2024 11.7 - 15 .7 HHCCT Hct VFr Bld Auto 26.0 % Below low normal 10/13/2024 35 - 47 HHCCT RDW RBC Auto-Rto 14.4 % 10/13/2024 11.5 - 14.5 HHCCT MCH RBC Qn Auto 31.7 pg Above high normal 10/13/2024 27 - 31 HHCCT PMV Bld Auto 9.9 fL 10/13/2024 7.5 - 12.5 HHCCT RBC num Bld Auto 2.68 Mil/uL Below low normal 10/13/2024 4 - 5.4 HHCCT MCV RBC Auto 97.0 fL 10/13/2024 80 - 100 HHCCT MCHC RBC Auto-mCnc 32.7 g/dL 10/13/2024 30 - 36 [facility]CT HBV core Ab Ser Ql Nonreactive [facility] Ag Ser Ql Nonreactive [facility] surface Ab Ser Ql Reactive (Immune) 10/12/2024 [facility] P[facility] Glucose 86.0 mg/dL 10/11/2024 65 - 99 HHCCT Hct VFr Bld Auto 26.3 % Below low normal 10/11/2024 35 - 47 HHCCT MCH RBC Qn Auto 32.0 pg Above high normal 10/11/2024 27 - 31 HHCCT PMV Bld Auto 10.1 fL 10/11/2024 7.5 - 12.5 HHCCT WBC num Bld Auto 10.6 Thou/uL 10/11/2024 4 - 11 HHCCT Hgb Bld-mCnc 9.1 g/dL Below low normal 10/11/2024 11.7 - 15 .7 HHCCT RBC num Bld Auto 2.84 Mil/uL Below low normal 10/11/2024 4 - 5.4 HHCCT Platelet num Bld Auto 212.0 Thou/uL 10/11/2024 150 - 450 HHCCT MCHC RBC Auto-mCnc 34.6 g/dL 10/11/2024 30 - 36 HHCCT RDW RBC Auto-Rto 15.2 % Above high normal 10/11/2024 11.5 - 14.5 HHCCT MCV RBC Auto 93.0 fL 10/11/2024 80 - 100 HHCCT Magnesium SerPl-mCnc 2.0 mg/dL 10/11/2024 1.6 - 2.7 HHCCT BUN SerPl-mCnc 74.0 mg/dL Above high normal 10/11/2024 8 - 2 1 HHCCT BUN/Creat SerPl 12.0 Ratio 10/11/2024 10 - 25 HH CCT Anion Gap Bld-sCnc 15.0 10/11/2024 7 - 17 HHCCT Calcium SerPl-mCnc 9.0 mg/dL 10/11/2024 8.7 - 10.5 HHCCT Glucose SerPl-mCnc 64.0 mg/dL Below low normal 10/11/2024 65 - 99 HHCCT GFR/BSA.pred SerPlBld JWN-PSW-UhQTvj 8.0 Below low normal 10/11/2024 59 - HHCCT Creat SerPl-mCnc 6.0 mg/dL Above high normal 10/11/2024 0.4 - 1.1 HHCCT Potassium SerPl-sCnc 4.3 mmol/L 10/11/2024 3.4 - 5.3 HHCCT Chloride SerPl-sCnc 94.0 mmol/L Below low normal 10/11/2024 98 - 107 HHCCT Sodium SerPl-sCnc 133.0 mmol/L Below low normal 10/11/2024 1 36 - 145 HHCCT CO2 SerPl-sCnc 24.0 mmol/L 10/11/2024 22 - 33 HH CCT Phosphate SerPl-mCnc 3.4 mg/dL 10/11/2024 2.7 - 4.5 HHCCT Lactate SerPl-sCnc 1.3 mmol/L 10/11/2024 0.5 - 1.9 HHCCT ALT SerPl-cCnc 5.0 U/L Below low normal 10/11/2024 10 - 50 HHCCT Bilirub Direct SerPl-mCnc 0.1 mg/dL 10/11/2024 0 - 0.2 HHCCT Prot SerPl-mCnc 4.6 g/dL Below low normal 10/11/2024 6.3 - 8.3 HHCCT AST SerPl-cCnc 10.0 U/L 10/11/2024 10 - 50 HHCC T Globulin Ser Calc-mCnc 1.9 g/dL 10/11/2024 1.5 - 3.9 HHCCT Bilirub SerPl-mCnc 0.3 mg/dL 10/11/2024 0.2 - 1 HHCCT ALP SerPl-cCnc 91.0 U/L 10/11/2024 32 - 122 HHCC T Albumin/Glob SerPl 1.4 Ratio 10/11/2024 1 - 3 HHCCT Albumin SerPl-mCnc 2.7 g/dL Below low normal 10/11/2024 3.5 - 5 HHCCT CO2 SerPl-sCnc 24.0 mmol/L 10/11/2024 22 - 33 HH CCT Sodium SerPl-sCnc 133.0 mmol/L Below low normal 10/11/2024 1 36 - 145 HHCCT GFR/BSA.pred SerPlBld PLO-MIN-AuYQrk 8.0 Below low normal 10/11/2024 59 - HHCCT Creat SerPl-mCnc 5.7 mg/dL Above high normal 10/11/2024 0.4 - 1.1 HHCCT Potassium SerPl-sCnc 4.4 mmol/L 10/11/2024 3.4 - 5.3 HHCCT Glucose SerPl-mCnc 77.0 mg/dL 10/11/2024 65 - 99 HHCCT Chloride SerPl-sCnc 95.0 mmol/L Below low normal 10/11/2024 98 - 107 HHCCT Anion Gap Bld-sCnc 14.0 10/11/2024 7 - 17 HHCCT Calcium SerPl-mCnc 8.6 mg/dL Below low normal 10/11/2024 8.7 - 10.5 HHCCT BUN/Creat SerPl 13.0 Ratio 10/11/2024 10 - 25 HH CCT BUN SerPl-mCnc 73.0 mg/dL Above high normal 10/11/2024 8 - 2 1 HHCCT Platelet num Bld Auto 207.0 Thou/uL 10/11/2024 150 - 450 HHCCT PMV Bld Auto 9.7 fL 10/11/2024 7.5 - 12.5 HHCCT Lymphocytes/leuk NFr Bld Auto 23.4 % 10/11/2024 HHCCT MCHC RBC Auto-mCnc 33.3 g/dL 10/11/2024 30 - 36 HHCCT RDW RBC Auto-Rto 14.6 % Above high normal 10/11/2024 11.5 - 14.5 HHCCT Basophils num Bld Auto 0.05 Thou/uL 10/11/2024 0 - 0.2 HHCCT Imm Granulocytes num Bld Auto 0.05 Thou/uL 10/11/2024 0 - 0.1 HHCCT MCV RBC Auto 92.0 fL 10/11/2024 80 - 100 HHCCT WBC num Bld Auto 13.0 Thou/uL Above high normal 10/11/2024 4 - 11 HHCCT Imm Granulocytes/leuk NFr Bld Auto 0.4 % 10/11/2024 HHCCT Hct VFr Bld Auto 24.9 % Below low normal 10/11/2024 35 - 47 HHCCT Neutrophils/leuk NFr Bld Auto 69.1 % 10/11/2024 HHCCT Eosinophil num Bld Auto 0.03 Thou/uL 10/11/2024 0 - 0.7 HHCCT MCH RBC Qn Auto 30.7 pg 10/11/2024 27 - [address] Eosinophil/leuk NFr Bld Auto 0.2 % 10/11/2024 HHCCT RBC num Bld Auto 2.7 Mil/uL Below low normal 10/11/2024 4 - 5.4 HHCCT Monocytes num Bld Auto 0.85 Thou/uL 10/11/2024 0.2 - 1.5 HHCCT Neutrophils num Bld Auto 8.99 Thou/uL Above high normal 10/11/2024 2 - 7.5 HHCCT Basophils/leuk NFr Bld Auto 0.4 % 10/11/2024 HHCCT Monocytes/leuk NFr Bld Auto 6.5 % 10/11/2024 HHCCT Lymphocytes num Bld Auto 3.04 Thou/uL 10/11/2024 1.5 - 4.5 HHCCT Hgb Bld-mCnc 8.3 g/dL Below low normal 10/11/2024 11.7 - 15 .7 CCT POC Glucose 97.0 mg/dL 10/11/2024 65 - 99 CCT Encounters Encounter Type Encounter Reason Primary Diagnosis Location Date Inpatient Hematemesis Hematemesis [facility] 10/11/2024 Care Team Organization Name Specialty Phone Email Start Date End Da te [facility] 10/11/2024 [facility] 10/11/2024 [facility] 10/11/2024
--- OUTSIDE RECORDS SUMMARY | 2024-11-05 16:09 | XMS_ITS | Encounter Summary ---
Author Organization [facility] Address [address] [place] [address] Phone Care Team Providers Care Sales Merchandise Associate Name Role Phone Rozina Nicole MD Primary Care Provider [phone] Encounter Details Date Type Department Care Team (Late st Contact Info) Description 05/08/2020 Orders Only [facility] [address] [place] [address] Provider, MD Wendy Social History [...] on filedocumented in this encounter Care Teams Sales Merchandise Associate Relationship Specialty Start Date End Date Rozina Nicole MD [address] [place], [place] PCP - General 02/21/20 documented as of this encounter
--- OUTSIDE RECORDS SUMMARY | 2024-11-05 16:09 | XMS_ITS | Encounter Summary ---
Author Organization [facility] Address [address] [place] [address] Phone Care Team Providers Care Ops Manager Name Role Phone Rozina Nicole MD Primary Care Provider [phone] Encounter Details Date Type Department Care Team ([facility] st Contact Info) Description 05/15/2020 Orders Only [facility] [address] [place] [phone] Jon Wang MD [address] [place] [phone] Stage 5 chronic kidney disease (HCC) Social [...] (HCC) documented in this encounter Care Teams Ops Manager Relationship Specialty Start Date End Date Rozina Nicole MD [address] [place] [address] [address] [place] PCP - General 02/21/20 documented as of this encounter
--- OUTSIDE RECORDS SUMMARY | 2024-11-05 16:09 | XMS_ITS | Encounter Summary ---
Author Organization [facility] Address [address] [address] Phone Care Team Providers Care Shooter'S Helper Name Role Phone Rozina Nicole MD Primary Care Provider [phone] Encounter Details Date Type Department Care Team ([facility] st Contact Info) Description 10/25/2024 Treatment [facility]. [address] [id number] Yamileth Varghese MD [address] [address] End stage renal disease; Dependence [...] Dialysis Note - Yamileth Varghese MD - 10/25/2024 12:00 AM EDT Patient: Meliza Perry : 1970 Note Type: Dialysis Rounds-Comp Service Date: 10/25/2024 This patient was personally seen [id number] for a complete visit as part of routine monthly dialysis care for end stage renal disease. Attending Publishing Systems Analyst: YAMILETH VARGHESE Dialysis Location: [facility] Schedule: Shift: 1 OVERVIEW Patient is stable. ADEQUACY ASSESSMENT Kt/V, Natural Log 1.25 (10/25/24) 0.62 (10/22/24) 1.00 (10/20/24) UREA REDUCTION RATIO (%) 67 (10/25/24) 42 (10/22/24) 60 (10/20/24) BUN 24 (10/25/24) 12 (10/22/24) 10 (10/20/24) BUN Post Dialysis 8 (10/25/24) 7 (10/22/24) 4 (10/20/24) Creatinine 4.75 (10/20/24) 6.26 (09/17/24) 5.83 (08/16/24) Bicarbonate (CO2) 25 (10/20/24) 20 (09/17/24) 21 (08/16/24) Sodium 134 (10/20/24) 128 (09/17/24) 130 (08/16/24) ANEMIA ASSESSMENT Hgb 9.4 (10/29/24) 9.5 (10/20/24) 7.9 (10/08/24) Iron Saturation (TSat) 63 (10/20/24) 20 (09/17/24) 35 (08/16/24) Ferritin 1,296 (10/20/24) 622 (09/17/24) 1,627 (08/16/24) Iron 93 (10/20/24) 41 (09/17/24) 63 (08/16/24) TIBC 147 (10/20/24) 200 (09/17/24) 179 (08/16/24) MCV 93.6 (10/20/24) 97.3 (09/17/24) 91.8 (08/16/24) Platelets 339 (10/20/24) 298 (09/17/24) 295 (08/16/24) BMM ASSESSMENT Calcium, Adjusted Total 9.6 10/20/24 8.8 09/17/24 9.2 08/16/24 Calcium 9.2 10/20/24 8.6 09/17/24 8.9 08/16/24 Phosphorus, Serum 2.9 10/20/24 3.2 10/04/24 5.8 09/17/24 Ca*PO4 26.7 10/20/24 49.9 09/17/24 30.3 08/16/24 PTH, Intact 510 08/16/24 501 07/14/24 726 06/16/24 Magnesium 2.2 10/20/24 2.3 09/17/24 2.0 08/16/24 Alkaline Phosphatase 123 10/20/24 177 09/17/24 172 08/16/24 Aluminum 4 02/20/24 NUTRITION ASSESSMENT Albumin 3.5 10/20/24 3.7 09/17/24 3.6 08/16/24 Potassium 5.4 10/29/24 4.0 10/20/24 4.9 09/17/24 Hemoglobin A1C 4.9 08/16/24 5.0 05/14/24 4.7 02/20/24 ADDITIONAL LABS White Blood Cells 7.4 (10/20/24) 7.7 (09/17/24) 6.6 (08/16/24) Cholesterol 121 (08/16/24) 155 (05/14/24) 174 (02/20/24) HDL 44 (08/16/24) 47 (05/14/24) 58 (02/20/24) LDL-Calc 59 (08/16/24) 82 (05/14/24) 89 (02/20/24) Triglycerides 88 (08/16/24) 130 (05/14/24) 136 (02/20/24) Hep B Surface Antibody ?1,000 (02/20/24) Uric Acid 9.6 (02/20/24) COMMENTS: 09/27/24 cont freq hosp w GI sxms requiring hosp 10/25/24 doing ok today but cont GI issues ADDITIONAL COMMENT COMMENTS: 07/07/24 doing better now, re ent hosp [facility] for GI flare 07/12/24: same issues w cont GI joshi 07/19/24 stablej 08/02/24: f/u with GI surgery ( [facility]) no plans for sure --will reassess in 3 months 08/06/24 same issues 03/31/24 doing ok 04/02/24 stable 04/09/24 doing ok 04/14/24 stable 05/04/24 05/05/24 05/14/24 stable 05/24/24 doing ok 03/22/24 doing better w GI [...] 2 hrs HD as she signs off 08/16/24 doing well 08/27/24 same issues 09/06/24 stable 09/08/24 no new issues 09/13/24 cont same issues 09/20/24 cont on/off pro Signed by: YAMILETH VARGHESE MD on 10/31/2024 at 11:09:39 PM Transcribed by: YAMILETH VARGHESE MD on 10/31/2024 at 11:09:39 PM documented in this encounter Plan of Treatment Not on file documented as of this encounter Visit Diagnoses Diagnosis End stage renal disease Dependence on renal dialysis documented in this encounter Care Teams Shooter'S Helper Relationship Specialty Start Date End Date Rozina Nicole MD [address] [place] [address] PCP - General 02/21/20 documented as of this encounter
--- OUTSIDE RECORDS SUMMARY | 2024-11-05 16:09 | XMS_ITS | Clinical Summary ---
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 21 tablet 10/14/19 25 025 Active pantoprazole (PROTONIX) 40 mg EC tabletIndicati ons:Marginal ulcer Take 1 tablet (40 mg total) by mouth 1 (one) time each day before breakfast. Do not crush, chew, or split. 30 each 2 10/14/19 25 025 Active ondansetron (ZOFRAN) 4 mg tabletIndicati ons:Hx of obesity,Bariat delon surgery status,Margina l ulcer TAKE 1 TABLET (4 MG TOTAL) BY MOUTH EVERY 8 HOURS IF NEEDED FOR NAUSEA OR VOMITING FOR UP TO 7 DAYS. 21 tablet 09/23/19 25 025 Discontinu ed(Reorder ) sucralfate (Carafate) 1 gram tablet Take 1 tablet (1 g total) by mouth every 6 (six) hours. 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 11/26/2023 Acute kidney failure ([facility] V24) 04/26/2021 Benign essential hypertension 04/26/2021 Dependence on renal dialysis ([facility] V24) 04/26 Disorder of kidney and ureter, unspecified 04/26 ESRD on hemodialysis ([facility] V24, [facility] V28) 04/26/2021 Hypertensive heart and chron ic kidney disease with heart failure and stage 1 through stage 4 chronic kidney disease, or unspecified chronic kidney disease ([facility] V24, [facility] V28) 04/26/2021 Vitamin D deficiency 04/26/2021 Resolved Problems Problem Noted Date Diagnosed Date Resolved Date Upper GI bleed 06/30/2024 07/03/2024 Encounters Date Type Department Care Team Description 10/07/2024 Telephone Bariatric Surgery - [address] [phone] Gerson Rosen MD 09/21/2024 Telephone Bariatric Surgery [address] [phone] Grace Abarca PA 09/01/2024 3:15 PM EDT Office Visit Bariatric Surgery [address] [phone] Grace Abarca PA Hx of obesity (Primary Dx); Bariatric surgery status; Marginal ulcer 08/25/2024 8:42 AM EDT - 08/25/2024 6:00 PM EDT Emergency [facility] Emergency [address] [place] [phone] Claude Grey MD Epigastric pain (Primary Dx); Nausea Discharge Disposition: Home or Self Care from Last 3 Months Surgical History Surgery Date Site/Laterality Comments OTHER SURGICAL HISTORY PROCEDURE: DIALYSIS ACCESS SYSTEM LAPAROSCOPIC GASTRIC BANDING PROCEDURE: LAP ADJUSTABLE GASTRIC BAND HYSTERECTOMY PROCEDURE: HISTORICAL HYSTERECTOMY OTHER SURGICAL HISTORY PROCEDURE: COLONOSCOPY LESION REMOVAL OTHER SURGICAL HISTORY 06/13/2021 Left PROCEDURE: NC CRTJ ARVEN FSTL XCP DIR ARVEN ANAST [...] PM EDT Office Visit Bariatric Surgery - [address] [place] [phone] Gerson Rosen MD [facility] [place] [address] Health Maintenance Due Date Last Done Comments Breast Cancer Screening 1970 DTaP,Tdap,and Td Vaccines (1 - Tdap) 07/26/1990 Zoster Vaccines (1 of 2) 07/26/1990 Cervical Cancer Screening: Pap Smear 07/26/1992 Colorectal Cancer Screening: Colonoscopy 01/20/2022 HIV Screening 01/20/2022 Medicare Annual Wellness Visit 01/20/2022 Social Influencers of Health Screening 01/20/2022 Hepatitis B Vaccines (3 of 3 - 19+ 3-dose series) 09/17/2022 06/21/2022, 03/20/2022 Depression Screening 02/11/2024 COVID-19 Vaccine ( season) 2024 01/19/2021, 07/05/2020, 05/31/2020 Influenza Vaccine (#1) 2024 , 11/11/2022, 11/14/2021, Additional history exists Hypertension/CHF/CAD Annual BMP Blood Test 08/25/2025 08/25/2024, 07/02/2024, 07/01/2024, Additional history exists Pneumococcal Vaccine: 50+ Years (3 of 3 - PCV20 or PCV21) 03/27/2026 03/27/2021, 10/31/2016 Cholesterol Screening (Lipid Panel) 08/16/2029 08/16/2024, 05/14/2024, 02/20/2024 RSV Immunization Adult Patients (1 - 1-dose 75+ series) 07/26/2046 Hepatitis C Screening Completed 11/02/2020 HIB Vaccines [...] and culture (08/25/2024 3:59 PM EDT) Specific [place] Urine 1.012 1.003 - 1.030 LAB URINALYSIS - AUTOMATED METHOD 08/25/2024 4:35 PM [facility] pH, Urine 8.5(A) 5.0 - 8.0 pH LAB URINALYSIS - AUTOMATED METHOD 08/25/2024 4:35 PM [facility] Leukocytes, Urine Negative Negative LAB URINALYSIS - AUTOMATED METHOD 08/25/2024 4:35 PM [facility] Nitrite, Urine Negative Negative LAB URINALYSIS - AUTOMATED METHOD 08/25/2024 4:35 PM [facility] Protein, Urine 100(A) <=Trace mg/dL LAB URINALYSIS - AUTOMATED METHOD 08/25/2024 4:35 PM [facility] Glucose, Urine Negative Negative mg/dL LAB URINALYSIS - AUTOMATED METHOD 08/25/2024 4:35 PM [facility] Ketones, Urine Negative Negative mg/dL LAB URINALYSIS - AUTOMATED METHOD 08/25/2024 4:35 PM [facility] Urobilinogen, Urine 0.2 0.2 - 1.0 mg/dL LAB URINALYSIS - AUTOMATED METHOD 08/25/2024 4:35 PM [facility] Bilirubin, Urine Negative Negative LAB URINALYSIS - AUTOMATED METHOD 08/25/2024 4:35 PM [facility] Blood, Urine Trace(A) Negative LAB URINALYSIS - AUTOMATED METHOD 08/25/2024 4:35 PM [facility] RBC, Urine 13.5(H) 0 - 4 /HPF LAB URINALYSIS - AUTOMATED METHOD 08/25/2024 4:35 PM [facility] WBC, Urine 0.1 0 - 4 /HPF LAB URINALYSIS - AUTOMATED METHOD 08/25/2024 4:35 PM [facility] Squamous Epithelial, Urine 17 0 - 60 /LPF LAB URINALYSIS - AUTOMATED METHOD 08/25/2024 4:35 PM [facility] Bacteria, Urine Negative Negative /HPF LAB URINALYSIS - AUTOMATED METHOD 08/25/2024 4:35 PM EDT [facility] Hyaline Casts, Urine 0.4 0 - 3 /LPF LAB URINALYSIS - AUTOMATED METHOD 08/25/2024 4:35 PM EDT [facility] Urine Urine specimen obtained by clean catch procedure / Unknown Non-blood Collection / Unknown 08/25/2024 3:59 PM EDT 08/25/2024 4:25 PM EDT John PARKER LAB URINE ORDERABLES Jennifer l Result Performing Organization Address [facility]/ZIP Co de Phone Number [facility] [address] [place] [address], [place] [phone] * Anguiano urine culture tube (08/25/2024 3:59 PM EDT) Extra Tube Hold for add-ons. 08/25/2024 6:01 PM EDT [facility] Comment:Auto resulted. Urine Urine specimen obtained by clean catch procedure / Unknown Non-blood Collection / Unknown 08/25/2024 3:59 PM EDT 08/25/2024 4:25 PM EDT Johnjohnathan PARKER LAB URINE ORDERABLES Jennifer l Result Performing Organization Address [facility]/ZIP Co de Phone Number [facility] [address] [place] [address], [place] [phone] * [place] Abdomen Limited (08/25/2024 2:10 PM [...] Signed Date: 08/25/2024 14:49 ET Workstation ID: [id number] Transcribed By: Self Edit Transcribed Date: 08/25/2024 [...] Signed Date: 08/25/2024 14:49 ET Workstation ID: [id number] Transcribed By: Self Edit Transcribed Date: 08/25/2024 [...] No evidence of bowel obstruction. Cecilia PARKER ([id number]) -------- FINAL REPORT -------- Dictated By: Jessy Bob Dictated Date: 08/25/2024 13:11 ET Assigned Physician: Jessy Bob Reviewed and Electronically Signed By: Jessy Bob Signed Date: 08/25/2024 13:29 ET Workstation ID: [id number] Transcribed By: Self Edit Transcribed Date: 08/25/2024 13:11 ET Narrative 08/25/2024 1:29 PM EDT History: Abdominal pain, nausea, vomiting and hematemesis. Prior gastric surgery. End-stage renal disease on hemodialysis. Comparison: 06/30/[address] Technique: Helical volumetric imaging of the abdomen and pelvis was performed following oral contrast and during the uneventful intravenous administration of 90 cc Isovue-370. DLP: 480.35 mGy/cm GE ADVENTRX Pharmaceuticalspeed VCT Iterative reconstruction technique Findings: The liver [...] of 90 cc Isovue-370. DLP: 480.35 mGy/cm Sellplexpeed VCT Iterative reconstruction technique Findings: The liver [...] surgery. No evidenceof bowel obstruction. Cecilia PARKER ([id number]) -------- FINAL REPORT -------- Dictated By: Jessy Bob Dictated Date: 08/25/2024 13:11 ET Assigned Physician: Jessy Bob Reviewed and Electronically Signed By: Jessy Bob Signed Date: 08/25/2024 13:29 ET Workstation ID: [id number] Transcribed By: Self Edit Transcribed Date: 08/25/2024 13:11 ET John PARKER IMG CT PROCEDURES Final R esult * ECG 12 lead (08/25/2024 9:43 AM EDT) Ventricular Rate ECG 84 BPM GEMUSE Atrial Rate 84 BPM GEMUSE P-R Interval 102 ms GEMUSE QRS Duration 78 ms GEMUSE Q-T Interval 394 ms GEMUSE QTc 465 ms GEMUSE P Wave [place] 25 degrees GEMUSE R [place] 22 degrees GEMUSE T [place] 52 degrees GEMUSE ECG Interpretation Sinus rhythm with short NC Otherwise normal ECG When compared with ECG of 01-JUL-2024 05:38, No significant change was found Confirmed by KATTY GRANT ([id number]) on 08/25/2024 10:37:08 AM GEMUSE 08/25/2024 9:43 AM EDT 08/25/2024 10:37 AM EDT Vaibhav Ozuna MD ECG ORDERABLES Final Result GEMUSE * Troponin I high sensitivity (NOW and then in 1 hour) (08/25/2024 9:00 AM EDT) [facility] High Sensitivity Troponin I 6 <=54 ng/L [...] ORDERABLES Final Re sult Performing Organization Address City/[facility]/ZIP Co de Phone Number [facility] [address] [place] [address], [place] [phone] * (ABNORMAL) CBC auto differential (08/25/2024 9:00 AM EDT) [facility] WBC 12.4(H) 4.8 - 10.8 K/mcL LAB HEMETOLOGY METHOD 08/25/2024 9:47 AM EDT [facility] RBC 3.60(L) 3.80 - 4.80 M/mcL LAB HEMETOLOGY METHOD 08/25/2024 9:47 AM EDT [facility] Hemoglobin 11.2(L) 11.5 - 16.0 g/dL LAB HEMETOLOGY METHOD 08/25/2024 9:47 AM EDT [facility] Hematocrit 34.4(L) 35.0 - 47.0 % LAB HEMETOLOGY METHOD 08/25/2024 9:47 AM [facility] MCV 95.6 79.0 - 98.0 FL LAB HEMETOLOGY METHOD 08/25/2024 9:47 AM [facility] MCH 31.1 27.0 - 32.0 pcg LAB HEMETOLOGY METHOD 08/25/2024 9:47 AM [facility] MCHC 32.6 32.0 - 37.0 g/dL LAB HEMETOLOGY METHOD 08/25/2024 9:47 AM [facility] RDW 15.4(H) 11.0 - 15.0 % LAB HEMETOLOGY METHOD 08/25/2024 9:47 AM [facility] Platelets 321 130 - 400 K/mcL LAB HEMETOLOGY METHOD 08/25/2024 9:47 AM [facility] MPV 10.3 7.0 - 11.0 FL LAB HEMETOLOGY METHOD 08/25/2024 9:47 AM [facility] NRBC 0.0 <1.0 % LAB HEMETOLOGY METHOD 08/25/2024 9:47 AM [facility] NRBC Absolute 0.00 <0.10 K/mcL LAB HEMETOLOGY METHOD 08/25/2024 9:47 AM [facility] Neutrophils Relative 84.3 % LAB HEMETOLOGY METHOD 08/25/2024 9:47 AM [facility] Lymphocytes Relative 8.7 % LAB HEMETOLOGY METHOD 08/25/2024 9:47 AM [facility] Monocytes Relative 4.8 % LAB HEMETOLOGY METHOD 08/25/2024 9:47 AM [facility] Eosinophils Relative 1.2 % LAB HEMETOLOGY METHOD 08/25/2024 9:47 AM [facility] Basophils Relative 0.6 % LAB [...] LAB Monocytes Absolute 0.59 0.20 - 1.00 K/[facility] LAB HEMETOLOGY METHOD 08/25/2024 9:47 AM EDT [...] Re sult [facility] [address] [place] [address], * Type and screen (08/25/2024 9:00 AM [...] ORDERABLE S Final Result Performing Organization Address [facility]/ZIP Co de Phone Number [facility] [address] [place] [address], [place] [phone] * Phosphorus (08/25/2024 9:00 AM EDT) Phosphorus 3.2 2.5 - 4.5 mg/dL LAB CHEMISTRY METHOD 08/25/2024 10:12 AM EDT [facility] Blood Venous blood specimen / Unknown Venipuncture / Unknown 08/25/2024 9:00 AM EDT 08/25/2024 9:41 AM EDT John PARKER LAB BLOOD ORDERABLES Jennifer l Result Performing Organization Address City/[facility]/ZIP Co de Phone Number [facility] [address] [place] [address], [place] [phone] * Magnesium (08/25/2024 9:00 AM EDT) Magnesium 2.1 1.9 - 2.6 mg/dL LAB CHEMISTRY METHOD 08/25/2024 10:12 AM EDT [facility] Blood Venous blood specimen / Unknown Venipuncture / Unknown 08/25/2024 9:00 AM EDT 08/25/2024 9:41 AM EDT John PARKER LAB BLOOD ORDERABLES Jennifer l Result Performing Organization Address [facility]/ZIP Co de Phone Number [facility] [address] [place] [address], * (ABNORMAL) Lipase (08/25/2024 9:00 AM EDT) Lipase 96(H) 13 - 75 unit/L LAB CHEMISTRY METHOD 08/25/2024 10:12 AM EDT [facility] Blood Venous blood specimen / Unknown Venipuncture / Unknown 08/25/2024 9:00 AM EDT 08/25/2024 9:41 AM EDT Vaibhav Ozuna MD LAB BLOOD ORDERABLES Final Re sult Performing Organization Address [facility]/ZIP Co de Phone Number [facility] [address] [place] [address], * (ABNORMAL) Comprehensive metabolic panel (08/25/2024 9:00 AM EDT) Pathologist [facility] Sodium 135 133 - 145 mmol/L LAB CHEMISTRY METHOD 08/25/2024 10:13 AM [facility] Potassium 5.4 3.5 - 5.5 mmol/L LAB CHEMISTRY METHOD 08/25/2024 10:13 AM [facility] Chloride 100 96 - 110 mmol/L LAB CHEMISTRY METHOD 08/25/2024 10:13 AM [facility] CO2 29 21 - 32 mmol/L LAB CHEMISTRY METHOD 08/25/2024 10:13 AM [facility] Anion Gap 6 3 - 11 LAB CHEMISTRY METHOD 08/25/2024 10:13 AM [facility] Glucose 109(H) 70 - 100 mg/dL LAB CHEMISTRY METHOD 08/25/2024 10:13 AM [facility] BUN 22 5 - 25 mg/dL LAB CHEMISTRY METHOD 08/25/2024 10:13 AM [facility] Creatinine 5.00(H) 0.50 - 1.10 mg/dL LAB CHEMISTRY METHOD 08/25/2024 10:13 AM [facility] eGFR 10(L) >=60 mL/min/1. 73m2 LAB CHEMISTRY METHOD 08/25/2024 10:13 AM [facility] Comment:Calculation based on the Chronic Kidney Disease Epidemiology Collaboration (CKD-EPI) equation refit without adjustment for race. BUN/Creatinine Ratio 4.4 LAB CHEMISTRY METHOD 08/25/2024 10:13 AM [facility] Calcium 9.2 8.5 - 10.5 mg/dL LAB CHEMISTRY METHOD 08/25/2024 10:13 AM [facility] AST (SGOT) 20 10 - 42 unit/L LAB CHEMISTRY METHOD 08/25/2024 10:13 AM [facility] ALT (SGPT) 29 10 - 60 unit/L LAB CHEMISTRY METHOD 08/25/2024 10:13 AM [facility] Alkaline Phosphatase 216(H) 42 - 121 unit/L LAB CHEMISTRY METHOD 08/25/2024 10:13 AM [facility] Total Protein 6.2 6.0 - 8.0 g/dL LAB CHEMISTRY METHOD 08/25/2024 10:13 AM [facility] Albumin 3.2 3.2 - 5.0 g/dL LAB CHEMISTRY METHOD 08/25/2024 10:13 AM [facility] Total Bilirubin 0.3 0.0 - 1.4 mg/dL LAB CHEMISTRY METHOD 08/25/2024 10:13 AM [facility] Blood Venous blood specimen / Unknown Venipuncture / Unknown 08/25/2024 9:00 AM EDT 08/25/2024 9:41 AM EDT us Vaibhav Ozuna MD LAB BLOOD ORDERABLES Final Re sult [facility] ([facility] LAB [address] [place] [address], from Last 3 Months Insurance MEDICAID - [place] MEDICARE Advance Directives Documents on File Type Date Recorded 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 Care Teams Arcade Games Mechanic Relationship Specialty Start Date End Date Sam Lynch MD [address] [place] [address] Dr [address] [place], [place] PCP - General 10/25/22
--- OUTSIDE RECORDS SUMMARY | 2024-11-05 16:10 | XMS_ITS | Clinical Summary ---
Author Organization [facility] Address [address] [place] [address] [place] [address] Phone Care Team Providers Care Salesperson Yard Goods Name Role Phone Rozina Nicole MD Primary Care Provider [phone] Allergies Active Allergy Reactions Criticality Noted Date [...] ureter 05/02/2020 05/02/2020 Hypertensive heart disease w [facility] heart failure 05/02/2020 09/07/2020 Encounters Date Type Department Care Team Description 10/25/2024 Treatment [facility] [address] [phone] Jon Wang MD End stage renal disease; Dependence on renal dialysis 10/08/2024 Treatment [facility] [address] [facility] [address] [place] [phone] Jon Wang MD End stage renal disease; Dependence on renal dialysis 10/08/2024 Orders Only [facility] [address] [phone] Jon Wang MD 09/27/2024 Treatment [facility] [address] [phone] Jon Wang MD End stage renal disease; Dependence on renal dialysis 09/20/2024 Treatment [facility] [address] [phone] Jon Wang MD End stage renal disease; Dependence on renal dialysis 09/13/2024 Treatment [facility] [address] [phone] Jon Wang MD End stage renal disease; Dependence on renal dialysis 09/10/2024 Treatment [facility] [address] [phone] Jon Wang MD End stage renal disease; Dependence on renal dialysis 09/10/2024 Treatment [facility] [place] [address] [facility] [address] [place] [phone] Jon Wang MD End stage renal disease; Dependence on renal dialysis 09/06/2024 Treatment [facility] [address] [phone] Jon Wang MD End stage renal disease; Dependence on renal dialysis 09/03/2024 Treatment [facility] [address] [phone] Jon Wang MD End stage renal disease; Dependence on renal dialysis 08/27/2024 Treatment [facility] [address] [phone] Jon Wang MD End stage renal disease; Dependence on renal dialysis 08/16/2024 Treatment [facility] [address] [phone] Jon Wang MD End stage renal disease; Dependence on renal dialysis 08/06/2024 Treatment [facility] [address] [phone] Jon Wang MD End stage renal disease; [...] Procedure Name Priority Date/Time Associated Diagnosis Comments [facility] () Routine 11/03/2024 3:00 AM EDT POTASSIUM Routine 11/03/2024 3:00 AM EDT [facility] (HC) Routine 10/29/2024 3:00 AM EDT POTASSIUM Routine 10/29/2024 3:00 AM EDT HEMOGLOBIN AND HEMATOCRIT, BLOOD Routine 10/29/2024 3:00 AM EDT [facility] (HC) Routine 10/25/2024 3:00 AM EDT KT/V NATURAL LOG, URR (HC) Routine 10/25/2024 3:00 AM EDT [facility] (HC) Routine 10/22/2024 3:00 AM EDT KT/V NATURAL LOG, URR (HC) Routine 10/22/2024 3:00 AM EDT HEPATITIS B SURFACE ANTIGEN W/REFL CONFIRM Routine 10/20/2024 3:00 AM EDT TRANSFERRIN SATURATION Routine 3:00 AM EDT PROTEIN, TOTAL, SERUM Routine 10/20/2024 3:00 AM EDT ELECTROLYTE PANEL Routine 10/20/2024 3:0 0 AM EDT MAGNESIUM Routine 10/20/2024 3:00 AM EDT LI[facility] (HC) Routine 10/20/2024 3:00 AM EDT CREATININE, SERUM Routine 10/20/2024 3:0 0 AM EDT LACTATE DEHYDROGENASE Routine 10/20/2024 3:00 AM EDT BILIRUBIN, TOTAL Routine 10/20/2024 3:00 AM EDT GLUCOSE, RANDOM Routine 10/20/2024 3:00 AM EDT AST Routine 10/20/2024 3:00 AM EDT BUN/CREATININE RATIO Routine 10/20/2024 3:00 AM EDT ALKALINE PHOSPHATASE Routine 10/20/2024 3:00 AM EDT ALT Routine 10/20/2024 3:00 AM EDT CALCIUM PHOSPHORUS PRODUCT, ADJUSTED (HC) Routine 10/20/2024 3:00 AM EDT FERRITIN Routine 10/20/2024 3:00 AM EDT CBC AND DIFFERENTIAL Routine 10/20/2024 3:00 AM EDT KT/V NATURAL LOG, URR (HC) Routine 10/20/2024 3:00 AM EDT HEMOGLOBIN Routine 10/08/2024 3:00 AM EDT [facility] (HC) Routine 10/04/2024 3:00 AM EDT PHOSPHATE ( PHOSPHORUS) Routine 10/04/2024 3:00 AM EDT [facility] (HC) Routine 10/01/2024 3:00 AM EDT HEMOGLOBIN AND HEMATOCRIT, BLOOD Routine 10/01/2024 3:00 AM EDT KT/V NATURAL LOG, URR (HC) Routine 10/01/2024 3:00 AM EDT HEPATITIS B SURFACE ANTIGEN W/REFL CONFIRM Routine 09/17/2024 3:00 AM EDT FERRITIN Routine 09/17/2024 3:00 AM EDT TRANSFERRIN SATURATION Routine 3:00 AM EDT PROTEIN, TOTAL, SERUM Routine 09/17/2024 3:00 AM EDT MAGNESIUM Routine 09/17/2024 3:00 AM EDT LI[facility] (HC) Routine 09/17/2024 3:00 AM EDT ELECTROLYTE PANEL [...] AND DIFFERENTIAL Routine 08/16/2024 3:00 AM EDT from Last 3 Months Results * LI (11/03/2024 3:00 AM EDT) Only the most recent of13 resultswithin the time period is included. Lipemia Normal Normal [facility] Icterus Normal Normal [facility] Hemolysis Normal Normal [facility] 11/03/2024 3:00 AM EDT 11/04/2024 2:58 PM EDT Jon Wang MD LAB [id number] SOLICITED RESULTS Final Result Performing Organization Address City/[facility] Co de Phone Number [facility]PS [facility] [address] [place] [address] * (ABNORMAL) Potassium (11/03/2024 3:00 AM EDT) Only the most recent of2 resultswithin the time period is included. Potassium 6.2(H) 3.4 - 5.0 mEq/L [facility] 11/03/2024 3:00 AM EDT 11/04/2024 2:58 PM EDT Jon Wang MD LAB BLOOD ORDERABLES Final Re sult Performing Organization Address [facility] de Phone Number [facility] [address] [place] [address] * (ABNORMAL) Hemoglobin and hematocrit (10/29/2024 3:00 AM EDT) Only the most recent of3 resultswithin the time period is included. Hgb 9.4(L) 11.2 - 15.7 g/dL [facility] Hematocrit 30.6(L) 34.1 - 44.9 % [facility] Hemoglobin x 3 28.2(L) 33.6 - 47.1 g/dL [facility] 10/29/2024 3:00 AM EDT 10/30/2024 12:54 PM EDT Jon Wang MD LAB BLOOD ORDERABLES Final Re sult Performing Organization Address [facility] Co de Phone Number [facility] [address] [place] [address] * Kt/V Natural Log, URR (10/25/2024 3:00 AM EDT) Only the most recent of9 resultswithin the time period is included. Treatment Time 180 min [facility] Pre-Weight, lb 64.3 kg [facility] Post-Weight, lb 62.6 kg [facility] Ultrafiltration Rate 9 <=13 mL/kg/hr [facility] Comment: Recommend achieving Ultrafiltration Rate (UFR) <=10 mL/kg/hr References: Terrell GARCIA et al. Kidney Int. 2010; 79(2):250-257 BUN Post Dialysis 8 7 - 25 mg/dL [facility] BUN 24 7 - 25 mg/dL [facility] UREA REDUCTION RATIO (%) 67 >=65 % [facility] Kt/V Natural Log 1.25 >=1.2 [facility] 10/25/2024 3:00 AM EDT 10/26/2024 1:47 PM EDT Jon Wang MD LAB [id number] SOLICITED RESULTS Final Result Performing Organization Address [facility] de Phone Number [facility] [address] [place] [address] * (ABNORMAL) Calcium Phosphorus Product, Adjusted (10/20/2024 3:00 AM EDT) Only the most recent of3 resultswithin the time period is included. Albumin 3.5(L) 3.6 - 5.4 g/dL [facility] Calcium 9.2 8.6 - 10.3 mg/dL [facility] Phosphorus, Serum 2.9 2.5 - 5.0 mg/dL [facility] Ca*PO4 26.7 <55.0 mg2/dL2 [facility] Calcium, Adjusted Total 9.6 8.6 - 10.3 mg/dL [facility] CA*PO4 CORRCTD 27.8 <55.0 mg2/dL2 [facility] 10/20/2024 3:00 AM EDT 10/21/2024 2:40 PM EDT Jon Wang MD LAB [id number] SOLICITED RESULTS Final Result Performing Organization Address [facility] Co de Phone Number [facility] [address] [place] [address] * Hepatitis B Surface Ag w/Reflex Confirmation (10/20/2024 3:00 AM EDT) Only the most recent of3 resultswithin the time period is included. Hep B Surface Antigen Negative Negative [facility] 10/20/2024 3:00 AM EDT 10/21/2024 2:40 PM EDT Jon Wang MD LAB BLOOD ORDERABLES Final Re sult Performing Organization Address [facility] de Phone Number [facility] [address] [place] [address] * BUN/CREATININE RATIO (10/20/2024 3:00 AM EDT) Only the most recent of3 resultswithin the time period is included. BUN/Creatinine Ratio 2.1 <=23.0 [facility] 10/20/2024 3:00 AM EDT 10/21/2024 2:40 PM EDT Jon Wang MD LAB [id number] SOLICITED RESULTS Final Result Performing Organization Address [facility] de Phone Number [facility] [address] [place] [address] * (ABNORMAL) TSAT (10/20/2024 3:00 AM EDT) Only the most recent of3 resultswithin the time period is included. Iron 93 50 - 170 ug/dL [facility] Transferrin 105(L) 250 - 380 mg/dL [facility] TIBC 147(L) 211 - 406 ug/dL [facility] Iron Saturation (TSat) 63(H) 22 - 52 % [facility] 10/20/2024 3:00 AM EDT 10/21/2024 2:40 PM EDT us Jon Wang MD LAB BLOOD ORDERABLES Final Re sult Performing Organization Address [facility] de Phone Number [facility] [address] [place] [address] * (ABNORMAL) CBC and Differential (10/20/2024 3:00 AM EDT) Only the most recent of3 resultswithin the time period is included. Pathologist [facility] DIFFERENTIAL MANUAL, 2 Not Indicated [facility] White Blood Cells 7.4 4.0 - 10.0 K/uL [facility] RBC 3.11(L) 3.93 - 5.22 M/uL [facility] Hgb 9.5(L) 11.2 - 15.7 g/dL [facility] Hemoglobin x 3 28.5(L) 33.6 - 47.1 g/dL [facility] Hematocrit 29.1(L) 34.1 - 44.9 % [facility] MCV 93.6 79.4 - 94.8 fL [facility] MCH 30.5 25.6 - 32.2 pg [facility] MCHC 32.6 32.2 - 35.5 g/dL [facility] RDW 17.1(H) 11.7 - 14.4 % [facility] Platelets 339 182 - 369 K/uL [facility] MPV 10.2 9.2 - 12.8 fL [facility] Neutrophils Relative 67.7 34.0 - 71.1 % [facility] Lymphocytes Relative 21.0 19.3 - 51.7 % [facility] Monocytes 6.5 4.7 - 12.5 % [facility] Eosinophils Relative 3.0 0.7 - 5.8 % [facility] Basophils Relative 0.7 0.1 - 1.2 % [facility] Immature Granulocytes 1.1(H) 0.0 - 1.0 % [facility] 10/20/2024 3:00 AM EDT 10/21/2024 2:08 PM EDT us Jon Wang MD LAB BLOOD ORDERABLES Final Re sult [facility] [address] [place] [address] * ALT (10/20/2024 3:00 AM EDT) Only the most recent of3 resultswithin the time period is included. [facility] ALT (SGPT) 19 10 - 49 U/L [facility] 10/20/2024 3:00 AM EDT 10/21/2024 2:40 PM EDT us Jon Wang MD LAB BLOOD ORDERABLES Final Re sult Performing Organization Address [facility] Co de Phone Number [facility] [address] [place] [address] * (ABNORMAL) AST (10/20/2024 3:00 AM EDT) Only the most recent of3 resultswithin the time period is included. AST (SGOT) 39(H) <34 U/L [facility] 10/20/2024 3:00 AM EDT 10/21/2024 2:40 PM EDT us Jon Wang MD LAB BLOOD ORDERABLES Final Re sult Performing Organization Address [facility] de Phone Number [facility] [address] [place] [address] * (ABNORMAL) Protein, total (10/20/2024 3:00 AM EDT) Only the most recent of3 resultswithin the time period is included. Total Protein 5.8(L) 6.4 - 8.9 g/dL [facility] 10/20/2024 3:00 AM EDT 10/21/2024 2:40 PM EDT us Jon Wang MD LAB BLOOD ORDERABLES Final Re sult Performing Organization Address [facility] Co de Phone Number [facility] [address] [place] [address] * (ABNORMAL) Alkaline phosphatase (10/20/2024 3:00 AM EDT) Only the most recent of3 resultswithin the time period is included. Alkaline Phosphatase 123(H) 46 - 116 U/L [facility] 10/20/2024 3:00 AM EDT 10/21/2024 2:40 PM EDT us Jon Wang MD LAB BLOOD ORDERABLES Final Re sult Performing Organization Address [facility] de Phone Number [facility] [address] [place] [address] * Magnesium (10/20/2024 3:00 AM EDT) Only the most recent of3 resultswithin the time period is included. Magnesium 2.2 1.9 - 2.7 mg/dL [facility] 10/20/2024 3:00 AM EDT 10/21/2024 2:40 PM EDT Jon Wang MD LAB BLOOD ORDERABLES Final Re sult Performing Organization Address [facility] de Phone Number [facility] [address] [place] [address] * Lactate dehydrogenase (10/20/2024 3:00 AM EDT) Only the most recent of3 resultswithin the time period is included. LDH 237 120 - 246 U/L [facility] 10/20/2024 3:00 AM EDT 10/21/2024 2:40 PM EDT Jon Wang MD LAB BLOOD ORDERABLES Final Re sult Performing Organization Address [facility] de Phone Number [facility] [address] [place] [address] * (ABNORMAL) Glucose, random (10/20/2024 3:00 AM EDT) Only the most recent of3 resultswithin the time period is included. Glucose 126(H) 70 - 99 mg/dL [facility] Comment: ADA guidelines outline the following fasting glucose ranges: Normal: <100 Prediabetes: 100-125 Diabetes: >125 10/20/2024 3:00 AM EDT 10/21/2024 2:40 PM EDT us Jon Wang MD LAB BLOOD ORDERABLES Final Re sult Performing Organization Address [facility] Co de Phone Number [facility] [address] [place] [address] * (ABNORMAL) Ferritin (10/20/2024 3:00 AM EDT) Only the most recent of3 resultswithin the time period is included. Ferritin 1,296(H) 10 - 291 ng/mL [facility] 10/20/2024 3:00 AM EDT 10/21/2024 2:40 PM EDT Jon Wang MD LAB BLOOD ORDERABLES Final Re sult Performing Organization Address [facility] de Phone Number [facility] [address] [place] [address] * (ABNORMAL) Creatinine, serum (10/20/2024 3:00 AM EDT) Only the most recent of3 resultswithin the time period is included. Creatinine 4.75(H) 0.55 - 1.02 mg/dL [facility] 10/20/2024 3:00 AM EDT 10/21/2024 2:40 PM EDT Jon Wang MD LAB BLOOD ORDERABLES Final Re sult Performing Organization Address [facility] de Phone Number [facility] [address] [place] [address] * (ABNORMAL) Bilirubin, total (10/20/2024 3:00 AM EDT) Only the most recent of3 resultswithin the time period is included. Total Bilirubin <0.2(L) 0.3 - 1.2 mg/dL [facility] 10/20/2024 3:00 AM EDT 10/21/2024 2:40 PM EDT Jon Wang MD LAB BLOOD ORDERABLES Final Re sult Performing Organization Address [facility] Co de Phone Number [facility] [address] [place] [address] * (ABNORMAL) Electrolyte panel (10/20/2024 3:00 AM EDT) Only the most recent of3 resultswithin the time period is included. Sodium 134(L) 136 - 145 mEq/L [facility] Potassium 4.0 3.4 - 5.0 mEq/L [facility] Chloride 97(L) 98 - 107 mEq/L [facility] Bicarbonate (CO2) 25 21 - 31 mEq/L [facility] Anion Gap 12 3 - 14 mEq/L [facility] 10/20/2024 3:00 AM EDT 10/21/2024 2:40 PM EDT us Jon Wang MD LAB BLOOD ORDERABLES Final Re sult Performing Organization Address [facility] de Phone Number [facility] [address] [place] [address] * (ABNORMAL) Hemoglobin (10/08/2024 3:00 AM EDT) Only the most recent of2 resultswithin the time period is included. Hgb 7.9(L) 11.2 - 15.7 g/dL [facility] Hemoglobin x 3 23.7(L) 33.6 - 47.1 g/dL [facility] 10/08/2024 3:00 AM EDT 10/09/2024 2:04 PM EDT us Jon Wang MD LAB BLOOD ORDERABLES Final Re sult Performing Organization Address [facility] Co de Phone Number [facility] [address] [place] [address] * Phosphorus (10/04/2024 3:00 AM EDT) Only the most recent of2 resultswithin the time period is included. Phosphorus, Serum 3.2 2.5 - 5.0 mg/dL [facility] 10/04/2024 3:00 AM EDT 10/05/2024 11:59 AM EDT us Jon Wang MD LAB BLOOD ORDERABLES Final Re sult Performing Organization Address [facility] Co de Phone Number [facility] [address] [place] [address] * Confirmation Test HCV (09/06/2024 3:00 AM EDT) Pathologist [facility] Hep C Ab Confirmation Not needed [facility] 09/06/2024 3:00 AM EDT 09/07/2024 2:14 PM EDT Jon Wang MD LAB BLOOD ORDERABLES Final Re sult Performing Organization Address [facility] de Phone Number [facility] [address] [place] [address] * HEPATITIS C ABS W/REFLEX RNA DETECTR (09/06/2024 3:00 AM EDT) Pathologist [facility] Hep C Virus Ab Non-Reacti ve Non-Reacti ve [facility] 09/06/2024 3:00 AM EDT 09/07/2024 2:15 PM EDT Jon Wang MD LAB [id number] SOLICITED RESULTS Final Result Performing Organization Address [facility] de Phone Number [facility] [address] [place] [address] * PTH, Intact (08/16/2024 3:00 AM EDT) [facility] PTH, Intact 510 160 - 721 pg/mL [facility] Comment: Suggested (KDIGO) ESRD maintenance range is two to nine times the upper normal limit (80.1 pg/mL) for the laboratory. 08/16/2024 3:00 AM EDT 08/17/2024 12:40 PM EDT us Jon Wang MD LAB BLOOD ORDERABLES Final Re sult Performing Organization Address [facility] de Phone Number [facility] [address] [place] [address] * Hemoglobin A1c (08/16/2024 3:00 AM EDT) Hemoglobin A1C 4.9 <5.7 % [facility] Comment: Methodology: Ion-exchange high-performance liquid chromatography (HPLC) Normal: <5.7% Prediabetes: 5.7-6.4% Diabetes: >6.4% Diabetic Glucose Control Evaluation: Therapeutic action suggested at >8.0% ADA recommends a glycemic goal of <7.0% 08/16/2024 3:00 AM EDT 08/17/2024 1:30 PM EDT us Jon Wang MD LAB BLOOD ORDERABLES Final Re sult Performing Organization Address [facility] de Phone Number [facility] [address] [place] [address] * (ABNORMAL) Lipid panel (08/16/2024 3:00 AM [...] Re sult Performing Organization Address [facility] Co de Phone Number [facility] [address] [place] [address] from Last 3 Months Insurance Medicare Medicaid [place] Medicaid [place] Care Teams Salesperson Yard Goods Relationship Specialty Start Date End Date Rozina Nicole MD [address] [place], [place] PCP - General 02/21/20
--- OUTSIDE RECORDS SUMMARY | 2024-11-05 16:10 | XMS_ITS | Encounter Summary ---
Author Organization [facility] Address [address] [facility] [address] [place] [address] Phone Care Team Providers Care Fruit Or Nut Farmer Name Role Phone Rozina Nicole MD Primary Care Provider [phone] Reason for Visit * Reason Onset Date Comments Med Refill 11/23/2020 Encounter Details Date Type Department Care Team (Late st Contact Info) Description 11/23/2020 Refill [facility] [address] [facility] [address] [place] [phone] Nkechi Salvador, ALEX [address] [facility] [address] [place] [address] Social History Tobacco Use Types [...] on filedocumented in this encounter Care Teams Fruit Or Nut Farmer Relationship Specialty Start Date End Date Rozina Nicole MD [address] [place], [place] PCP - General 02/21/20 documented as of this encounter
--- OUTSIDE RECORDS SUMMARY | 2024-11-05 16:10 | XMS_ITS | Clinical Summary ---
Author Organization [facility] Address [address] [facility] [address] [place] [address] Phone Care Team Providers Care Boring Mill Set Up Operator Vertical Name Role Phone Rozina Nicole MD Primary [...] 10/31/2016 ZOSTER VACCINES (1 of 2) 07/26/2021 INFLUENZA VACCINE (#1) 2024 09/13/2013 COVID-19 VACCINE (4 - 2024-2 6 season) 2024 01/19/2021, 07/05/2020, 05/31/2020 COLORECTAL CANCER SCREENING Completed [...] file Insurance ACO [employer] [place] [place] [address] [place] [address] [employer] [place] [id number] Care Teams Boring Mill Set Up Operator Vertical Relationship Specialty Start Date End Date Rozina Nicole MD [address] [place] [address] PCP - General 06/26/18 Additional Source Comments The information contained in this document represents components of the legal health record. It is not the complete legal health record.[facility]
--- NOTE | 2024-11-05 18:04 | ED.DIZZY ---
HPI - Dizziness General Chief Complaint: Dizziness Stated Complaint: weakness, hypotension Time Seen by Provider: 11/05/24 16:15 History of Present Illness HPI Narrative: Patient is a 54-year-old female with a history of end-stage renal disease. Got dialyze today. Was noted to have an elevated potassium prior of 6.3. Patient received dialysis treatment did not have repeat labs feels very tired weak feels nauseous. No blood in his stool. Has a previous history of GI bleed in the past. Until history of gastric bypass in the past. Related Data Home Medications ?Medication ?Instructions ?Recorded ?Confirmed ferrous sulfate 325 mg (65 mg 325 mg PO DAILY 05/11/20 09/28/24 iron) tablet,delayed release cyanocobalamin (vitamin B-12) 1,000 mcg PO DAILY 10/17/20 09/28/24 1,000 mcg tablet midodrine 5 mg tablet 5 mg PO DAILY PRN Hypotension 03/25/23 09/28/24 acetaminophen 500 mg capsule 1,000 mg PO Q8H PRN Pain 08/10/23 09/28/24 (Mapap (acetaminophen)) fluticasone propionate 50 1 spray intranasal DAILY PRN 08/10/23 09/28/24 mcg/actuation nasal Allergy Symptoms spray,suspension [id number] 45 mg-folic 1 cap PO DAILY 08/10/23 09/28/24 acid 800 mcg-vit K 120 mcg capsule (Bariatric Multivitamins) parenteral amino acid 15% no.5 15 0.5 ea IV MOWEFR@0900 08/10/23 09/28/24 % combination no.5 intravenous solution (Clinisol SF) zinc acetate 50 mg (zinc) capsule 100 mg PO DAILY 05/19/24 09/28/24 ergocalciferol (vitamin D2) 1,250 1,250 mcg PO PLEITEZ@0900 06/04/24 09/28/24 mcg (50,000 unit) capsule (Vitamin D2) meclizine 12.5 mg tablet 12.5 mg PO TID PRN Nausea And 06/04/24 09/28/24 Vomiting omeprazole 40 mg capsule,delayed 40 mg PO BID@0630,1630 06/04/24 09/28/24 release clotrimazole-betamethasone 1 1 appl topical DAILY PRN Rash 09/20/24 09/28/24 %-0.05 % topical cream Previous Rx's ?Medication ?Instructions ?Recorded thiamine HCl (vitamin B1) 100 mg 100 mg PO DAILY 90 days #90 tabs 09/27/23 tablet vitamin A 2,400 mcg capsule 2,400 mcg PO DAILY 90 days #90 caps 02/05/24 carvedilol 6.25 mg tablet 6.25 mg PO BID 90 days #180 tabs 04/28/24 gabapentin 400 mg capsule 400 mg PO BID 90 days #180 caps 04/28/24 ondansetron 4 mg disintegrating 4 mg PO Q8H PRN nausea and 05/11/24 tablet vomiting #10 tabs citalopram 20 mg tablet 20 mg PO DAILY 90 days #90 tabs 09/08/24 melatonin 10 mg capsule 20 mg (2 x 10 mg) PO BEDTIME #90 09/20/24 caps sucralfate 100 mg/mL oral 1 g (10 mL) PO QIDACHS 28 days 09/24/24 suspension #1,000 mL oxycodone 5 mg tablet 5 mg PO Q8H PRN Pain, 09/26/24 Moderate(Pain Scale 4-6) #15 tabs pyridoxine (vitamin B6) 50 mg 50 mg PO DAILY 90 days #90 tabs 10/21/24 tablet Allergies Allergy/AdvReac Type Severity Reaction Status Date / Time ibuprofen Allergy Severe Unknown Verified 11/05/24 15:33 nifedipine Allergy Intermediate hives, leg Verified 11/05/24 15:33 edema Review of Systems Review of Systems: Positive weakness Yes all other systems are reviewed and are negative [facility] Past Medical History Attestation statement: The following information was validated with the patient. 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 Lumbar back pain with radiculopathy affecting left lower extremity Physical exam (~02/14/21) Peritoneal dialysis catheter in place Polyarthralgia Dyslipidemia Family history of ovarian cancer Abnormal mammogram of right breast Angina pectoris syndrome Chest pain Constipation Nephrosclerosis Renal interstitial fibrosis Obesity (BMI 30-39.9) Back pain GERD (gastroesophageal reflux disease) History of headache HTN (hypertension) Surgical History History of sleeve gastrectomy S/P arteriovenous (AV) graft placement Fistula Hx of colonoscopy Hx of hysterectomy Hx of tubal ligation History of endometrial ablation Family History Family History Father Asthma Mother Asthma Hypertension Ovarian cancer Maternal Grandfather Myocardial infarction Paternal Grandmother Stroke Social History Social History Household Members: Children Household Members Other:: 30 year old special needs son Housing: Apartment Are you a primary home health care social worker to a significant other at home: No Do you presently have visiting nurse or other home services: Yes Alcohol intake: never Comment: low fall risk Patient Tobacco Use Status: Former Tobacco user Tobacco use type: Cigarette Cigarette Packs Per Day: 1 Cigarettes Per Day: 1 Years Smoked: 10+ Smoked in Last 30 Days: No e-Cigarette/Vaping Use: Never Used Second Hand Smoke Exposure: No Use of substances other than those prescribed or required for medical reasons: No Substance Use Type: Caffiene Advance Directives: Yes Advance Directives on File: Yes Advance Directives Date on File: 04/27/20 Do you have a plan to hurt others: No Plan Patient : No service: No Current occupational status: employed Cognitive needs: No Hearing needs: No Vision needs: Yes (reading glasses) Physical Exam Exam: Exam: Appearance: Alert. Oriented X3. No acute distress. Eyes: Pupils equal, round and reactive to light. ENT: Pharynx normal. Neck: Normal inspection. Neck supple. No lymph nodes noted. No crepitus CVS: Normal heart rate and rhythm. Pulses normal. Normal S1 and S2 Respiratory: No respiratory distress. Breath sounds normal. No Wheezing. No rales Abdomen: Soft and nontender. No rigidity. No distention. good BS x4 Skin: Skin warm and dry. Normal skin color. Normal skin turgor. Extremities: No lower extremity edema. Neurovascular intact to all extremities. No Lacerations. No Rash Neuro: Oriented X 3. No motor deficit. No sensory deficit. Moving all extermities. No slurred speech Vital Signs: Vital Signs: Last Vital Signs Temp 98.1 F 11/05/24 18:20 Pulse 89 11/05/24 18:20 Resp 18 11/05/24 18:20 BP 114/51 L 11/05/24 18:20 Pulse Ox 100 11/05/24 18:20 O2 Del Method Room Air 11/05/24 18:20 BMI result Body Mass Index 21.7 Medications Administered Discontinued Medications Generic Name Dose Route Start Last Admin Trade Name Veena PRN Reason Stop Dose Admin Hydromorphone HCl 0.5 mg 11/05/24 18:04 11/05/24 18:07 Hydromorphone Hcl 0.5 Mg/0.5 Ml Syringe IVPUSH 11/05/24 18:05 0.5 mg ONCE ONE Administration Protocol Hydromorphone HCl 0.5 mg 11/05/24 20:42 11/05/24 20:52 Hydromorphone Hcl 0.5 Mg/0.5 Ml Syringe IVPUSH 11/05/24 20:43 0.5 mg ONCE ONE Administration Protocol Medical Decision Making Medical Decision Making [facility] Narrative: Patient's stool was brown. Hemoglobin is baseline. Received dialysis was extremely weak after dialysis. Her K was normal. Her creatinine consistent with end-stage renal disease. Her electrolytes are unremarkable. CT showed nonspecific finding. No obstruction no abscess no perforation. Chest x-ray showed no acute evidence of pneumonia by my info interpretation. PH is 7.54. COVID flu RSV were all negative. Will discharge patient home. Currently in stable condition Differential Diagnosis Differential Diagnoses: The differential diagnosis associated with the presentation includes Electrolyte disturbance. Infection Admission/Observation Consideration of admission/observation: Escalation of care including admission/observation considered Lab Data [facility] Lab Attestation statement: I reviewed the patient's lab results. 11/05/24 18:12 11/05/24 18:12 Labs: Lab Results 11/05/24 11/05/24 11/05/24 Range/Units 17:59 18:12 18:12 WBC 4.5 L (4.8-10.8) X10*3/uL RBC 2.55 L (4.20-5.50) X10*6/uL Hgb 7.7 L D (12.0-16.0) g/dl Hct 23.5 L D (37.0-47.0) % MCV 92.2 (80.0-98.0) fL MCH 30.2 (27.0-33.0) pg MCHC 32.8 (31.0-35.0) g/dl RDW 16.4 H (11.0-16.0) % Plt Count 217 (160-400) X10*3/uL MPV 8.9 L (9.4-12.3) fL Immature Gran % (Auto) 0.4 (0.0-0.4) % Neut % (Auto) 68.6 (45-73) % Lymph % (Auto) 21.0 (20-40) % [place] % (Auto) 7.5 (2-11) % Eos % (Auto) 1.8 (0-4) % Baso % (Auto) 0.7 (0-2) % Lymph # (Auto) 1.0 L (1.2-4.9) X10*3/uL Marathon # (Auto) 0.3 (0.1-1.2) X10*3/uL Eos # (Auto) 0.1 (0.0-0.4) X10*3/uL Baso # (Auto) 0.0 (0.0-0.2) X10*3/uL Abs Immat Gran (auto) 0.02 (0.00-0.03) X10*3/uL Absolute Neuts (auto) 3.1 (2.0-8.3) x10*3/uL Absolute Nucleated RBC 0.000 (0.0-0.012) X10*3/uL Nucleated RBC % (auto) 0.0 (0.0-0.2) /100WBC VBG pH (7.32-7.43) VBG pCO2 mmHg VBG pO2 mmHg VBG HCO3 (22-26) mmol/L VBG O2 Saturation % VBG Base Excess mmol/L Sodium 137 (135-145) mmol/L Potassium 3.1 L D (3.3-5.1) mmol/L Chloride 94 L (96-108) mmol/L Carbon Dioxide 33 H (22-29) mmol/L Anion Gap 13 (12-20) BUN 17 H (9-16) mg/dL Creatinine 2.35 H (0.5-1.4) mg/dL Estim Creat Clear Calc 25.8 Estimated GFR 22 Random Glucose 94 (60-115) mg/dL Lactic Acid 1.1 (0.5-2.0) mmol/L Calcium 8.9 D 9.0 (8.4-10.2) mg/dL Magnesium 2.0 (1.6-2.6) mg/dL Total Bilirubin 0.3 (0.0-1.0) mg/dL Direct Bilirubin 0.1 (0.0-0.5) mg/dL AST 18 (5-31) U/L ALT < 6 (0-31) U/L Alkaline Phosphatase 126 H (39-117) U/L Total Protein 6.0 L (6.5-8.0) g/dL Albumin 3.4 L (3.5-5.0) g/dL Lipase 18 (8-78) U/L Stool Occult Blood POSITIVE (NEGATIVE) Influenza Type A (PCR) (Negative) Influenza Type B (PCR) (Negative) RSV RNA Qual (PCR) (Negative) SARS-CoV-2 RNA (RT-PCR) (Negative) 11/05/24 11/05/24 Range/Units 18:24 18:35 WBC (4.8-10.8) X10*3/uL RBC (4.20-5.50) X10*6/uL Hgb (12.0-16.0) g/dl Hct (37.0-47.0) % MCV (80.0-98.0) fL MCH (27.0-33.0) pg MCHC (31.0-35.0) g/dl RDW (11.0-16.0) % Plt Count (160-400) X10*3/uL MPV (9.4-12.3) fL Immature Gran % (Auto) (0.0-0.4) % Neut % (Auto) (45-73) % Lymph % (Auto) (20-40) % Marathon % (Auto) (2-11) % Eos % (Auto) (0-4) % Baso % (Auto) (0-2) % Lymph # (Auto) (1.2-4.9) X10*3/uL Marathon # (Auto) (0.1-1.2) X10*3/uL Eos # (Auto) (0.0-0.4) X10*3/uL Baso # (Auto) (0.0-0.2) X10*3/uL Abs Immat Gran (auto) (0.00-0.03) X10*3/uL Absolute Neuts (auto) (2.0-8.3) x10*3/uL Absolute Nucleated RBC (0.0-0.012) X10*3/uL Nucleated RBC % (auto) (0.0-0.2) /100WBC VBG pH 7.53 H (7.32-7.43) VBG pCO2 47 mmHg VBG pO2 45 mmHg VBG HCO3 40 H (22-26) mmol/L VBG O2 Saturation 71.0 % VBG Base Excess 15.8 mmol/L Sodium (135-145) mmol/L Potassium (3.3-5.1) mmol/L Chloride (96-108) mmol/L Carbon Dioxide (22-29) mmol/L Anion Gap (12-20) BUN (9-16) mg/dL Creatinine (0.5-1.4) mg/dL Estim Creat Clear Calc Estimated GFR Random Glucose (60-115) mg/dL Lactic Acid (0.5-2.0) mmol/L Calcium (8.4-10.2) mg/dL Magnesium (1.6-2.6) mg/dL Total Bilirubin (0.0-1.0) mg/dL Direct Bilirubin (0.0-0.5) mg/dL AST (5-31) U/L ALT (0-31) U/L Alkaline Phosphatase (39-117) U/L Total Protein (6.5-8.0) g/dL Albumin (3.5-5.0) g/dL Lipase (8-78) U/L Stool Occult Blood (NEGATIVE) Influenza Type A (PCR) NEGATIVE (Negative) Influenza Type B (PCR) NEGATIVE (Negative) RSV RNA Qual (PCR) NEGATIVE (Negative) SARS-CoV-2 RNA (RT-PCR) NEGATIVE (Negative) Independent Interpretation I performed an independent interpretation of an: Plain X-Ray (Chest x-ray grossly negative) and CT Scan (No obvious obstruction) Radiology Impression Discussion of test interpretation with radiology: I have reviewed the radiologist's reading. External Record Review External record reviewed: Inpatient record Chronic Conditions Patient?s care impacted by: Diabetes and Hypertension End-stage renal disease Social Determinants Patient?s care significantly limited by Social Determinants of Health including: Problems related to primary support group Discharge Plan Discharge Clinical Impression: Abdominal pain, Weakness Patient Disposition: Home, Self-Care Instructions: Acute Abdominal Pain (ED) Prescriptions: No Action thiamine HCl (vitamin B1) 100 mg tablet 100 mg PO DAILY 90 Days Qty: 90 0RF vitamin A 2,400 mcg capsule 2,400 mcg PO DAILY 90 Days Qty: 90 1RF carvedilol 6.25 mg tablet 6.25 mg PO BID 90 Days Qty: 180 1RF gabapentin 400 mg capsule 400 mg PO BID 90 Days Qty: 180 1RF citalopram 20 mg tablet 20 mg PO DAILY 90 Days Qty: 90 1RF melatonin 10 mg capsule 20 mg PO BEDTIME Qty: 90 0RF pyridoxine (vitamin B6) 50 mg tablet 50 mg PO DAILY 90 Days Qty: 90 1RF cyanocobalamin (vitamin B-12) 1,000 mcg Tablet 1,000 mcg PO DAILY clotrimazole-betamethasone 1-0.05 % cream 1 appl topical DAILY PRN (Reason: Rash) sucralfate 100 mg/mL Suspension 1 g PO QIDACHS 28 Days Qty: 1000 0RF oxycodone 5 mg Tablet 5 mg PO Q8H PRN (Reason: Pain, Moderate(Pain Scale 4-6)) Qty: 15 0RF Rx Instructions: Partial Fill upon patient request. acetaminophen [Mapap (acetaminophen)] 500 mg capsule 1,000 mg PO Q8H PRN (Reason: Pain) Clinisol SF 15 % 15 % parenteral solution 0.5 ea IV MOWEFR@0900 Rx Instructions: DIALYSIS MEDICATION Bariatric Multivitamins 45 mg iron- 800 mcg-120 mcg Capsule 1 cap PO DAILY fluticasone propionate 50 mcg/actuation spray,suspension 1 spray intranasal DAILY PRN (Reason: Allergy Symptoms) Rx Instructions: administer into each nostril ondansetron 4 mg tablet,disintegrating 4 mg PO Q8H PRN (Reason: nausea and vomiting) Qty: 10 0RF zinc acetate 50 mg (zinc) Capsule 100 mg PO DAILY omeprazole 40 mg capsule,delayed release(DR/EC) 40 mg PO BID@0630,1630 meclizine 12.5 mg Tablet 12.5 mg PO TID PRN (Reason: Nausea And Vomiting) ergocalciferol (vitamin D2) [Vitamin D2] 1,250 mcg (50,000 unit) capsule 1,250 mcg PO PLEITEZ@0900 ferrous sulfate 325 mg (65 mg iron) tablet,delayed release (DR/EC) 325 mg PO DAILY midodrine 5 mg tablet 5 mg PO DAILY PRN (Reason: Hypotension) Referrals: Rozina Nicole MD [Primary Care Provider, Internal Medicine] - 11/08/24 Print Language: Polish
[2024-11-05 18:16] LABS: OBS Int Ctl Valid YES; OBS1 POSITIVE (NEGATIVE)
[2024-11-05 18:34] LABS: MANUAL DIFF FLAG NO
[2024-11-05 18:35] LABS: Hematocrit 23.5 % (37.0-47.0); Hemoglobin 7.7 g/dl (12.0-16.0); Imm Gran Abs Auto 0.02 X10*3/uL (0.00-0.03); Imm Gran Pct Auto 0.4 % (0.0-0.4); Lymphocytes Absolute Auto 1.0 X10*3/uL (1.2-4.9); Mean Corpuscular HGB Conc 32.8 g/dl (31.0-35.0); Mean Corpuscular Hemoglobin 30.2 pg (27.0-33.0); Mean Corpuscular Volume 92.2 fL (80.0-98.0); NRBC Abs Auto 0.000 X10*3/uL (0.0-0.012); NRBC Pct Auto 0.0 /100WBC (0.0-0.2); Platelet Count 217 X10*3/uL (160-400); Red Blood Count 2.55 X10*6/uL (4.20-5.50); White Blood Count 4.5 X10*3/uL (4.8-10.8)
[2024-11-05 18:44] LABS: VBG HCO3 40 mmol/L (22-26); VBG O2 % Saturation 71.0 %
[2024-11-05 18:50] LABS: Calcium 9.0 mg/dL (8.4-10.2)
--- NOTE | 2024-11-05 18:54 | PC.NURSE ---
Occult stool sample sent to lab. Duplicate order [email or web address].
[2024-11-05 19:02] LABS: Alanine Aminotransferase < 6 U/L (0-31); Albumin Level 3.4 g/dL (3.5-5.0); Alkaline Phosphatase 126 U/L (39-117); Anion Gap 13 (12-20); Aspartate Amino Transferase 18 U/L (5-31); Blood Urea Nitrogen 17 mg/dL (9-16); Calcium 8.9 mg/dL (8.4-10.2); Carbon Dioxide 33 mmol/L (22-29); Chloride 94 mmol/L (96-108); Creatinine Clr Calc Pharmacy 25.8; Estimated Glomerular Filt Rate 22; Lipase 18 U/L (8-78); Magnesium 2.0 mg/dL (1.6-2.6); Potassium 3.1 mmol/L (3.3-5.1); Sodium 137 mmol/L (135-145); Total Protein 6.0 g/dL (6.5-8.0)
[2024-11-05 19:05] LABS: Venous Blood Gas Refer to POC result
[2024-11-05 19:22] LABS: Resp Syncy Virus RNA Qual PCR NEGATIVE (Negative); SARS COV2 PCR INHOUSE NEGATIVE (Negative)
--- NOTE | 2024-11-05 22:13 | PC.NURSE ---
MD aware of patients orthos, patient denies symptoms. MD ok with discharge. pts brother picked her up and she stated she will have family with her tonight. pt educated to return to ED if worsening sx.
== END 2024-11-05 22:18 | disposition home or self-care (01) ==
PROVIDERS: Emergency Provider Emergency Medicine Emergency Medical Services; PCP Internal Medicine
DX: R10.9 Unspecified abdominal pain (principal); I12.0 Hypertensive chronic kidney disease with stage 5 chronic kidney disease or end stage renal disease; N18.6 End stage renal disease; Z72.0 Tobacco use; Z79.899 Other long term (current) drug therapy
CPT/HCPCS: 36415; 71045; 74176; 80048; 80076; 82272; 82310; 82803; 83605; 83690; 83735; 85025; 87040; 87637; 96374; 96376; 99284; J1171

== ENCOUNTER → 2024-11-05 17:57 | Outpatient (BNV) | payer MEDICARE, MEDICAID, SELFPAY | PROVIDERS: Emergency Provider Emergency Medicine Emergency Medical Services; PCP Internal Medicine; Visit Provider Radiology Diagnostic Radiology | DX: K65.4 Sclerosing mesenteritis (principal); K44.9 Diaphragmatic hernia without obstruction or gangrene; N18.9 Chronic kidney disease, unspecified; I70.0 Atherosclerosis of aorta; R16.0 Hepatomegaly, not elsewhere classified; R06.02 Shortness of breath | CPT/HCPCS: 71045; 74176 ==

== ENCOUNTER 2024-11-09 10:01 | Outpatient (REF) | payer MEDICARE, MEDICAID, SELFPAY ==
--- NOTE | ~2024-11-09 | US_ITS ---
EXAMINATION: US ABDOMEN LIMITED WITH LIVER ELASTOGRAPHY HISTORY: K76.6 - Portal hypertension TECHNIQUE: Real-time grayscale ultrasound imaging of the right upper quadrant was performed and images were reviewed. COMPARISON: Comparison is made with the prior examination dated 06/07/2024. FINDINGS: Liver: The right lobe of the liver measures 16.5 cm in size. The left lobe of the liver measures 9.2 cm in size. The liver demonstrates normal homogeneous echotexture. No focal mass or intrahepatic biliary ductal dilatation is identified. There is normal hepatopedal flow in the portal vein. Ultrasound elastography of the liver was performed with 10 separate measurements of the liver parenchyma with the patient in the supine position. Measurements were obtained approximately 2 cm below Joanna's capsule and perpendicular to the capsule. The median shear wave velocity is 1.53 m/s. The interquartile range/median (IQR/median) is 0.04. Gallbladder and biliary tree: The gallbladder is unremarkable, without evidence of calculi, wall thickening, or pericholecystic fluid. There is no sonographic Reis sign. The common bile duct is normal in caliber measuring 5 mm. Right Kidney: The right kidney measures 7.8 cm in length. There is renal cortical thinning and increased cortical echotexture, consistent with chronic medical renal disease. Multiple cysts are noted, the largest of which is in the interpolar region measuring 1.8 cm in size. Pancreas: The pancreatic head, neck, and body are unremarkable. The pancreatic tail is obscured by bowel gas. Abdominal aorta and inferior vena cava: The visualized portions of the abdominal aorta and inferior vena cava are normal in caliber. There is no free fluid in the right upper quadrant. US/US abdomen ba w elastography IMPRESSION: 1. Mild hepatomegaly. 2. Findings consistent with chronic medical renal disease involving the right kidney. The median shear wave velocity in the liver is 1.53 m/s, corresponding to a median liver stiffness of 7.09 kPa. The IQR/median value is 0.04. This is indicative of a quality data set. Findings are indicative of a low elastography value which rules out advanced chronic liver disease in asymptomatic patients. REFERENCE: Society of Radiologists in Ultrasound Liver Stiffness Thresholds (2020): LIVER STIFFNESS THRESHOLDS: *Shear wave velocity less than 1.3 m/s (Liver Stiffness equal or less than 5 kPa): High probability of being normal. *Shear wave velocity less than 1.7 m/s (Liver Stiffness less than 9 kPa): In the absence of other known clinical signs, rules out compensated advanced chronic liver disease. *Shear wave velocity between 1.7-2.1 m/s (Liver Stiffness 9-13 kPa): Suggestive of compensated advanced chronic liver disease but need further test for confirmation. *Shear wave velocity between 2.1-2.4 m/s (Liver Stiffness 13-17 kPa): Rules in compensated advanced chronic liver disease. *Shear wave velocity greater than 2.4 m/s (Liver Stiffness over 17 kPa): Suggestive of clinically significant portal hypertension. QUALITY OF DATA SET: *IQR/Median value equal or less than 0.15 implies a quality data set. *IQR/Median value over 0.15 implies a poor quality data set. SIGNIFICANT CHANGE FROM PRIOR EXAM: Significant change if liver stiffness measurement is 10% or greater from prior exam. OTHER CONSIDERATIONS: The stage of liver fibrosis may be overestimated in the setting of acute hepatitis, liver inflammation, elevated liver function tests, hepatic vascular congestion, obstructive cholestasis, non-fasting state, and infiltrative diseases such as amyloidosis and lymphoma. In some patients with NAFLD, the liver stiffness thresholds for compensated advanced chronic liver disease may be lower. In causes other than viral hepatitis and NAFLD, liver stiffness thresholds are not well established. Electronically signed by: Brandan Wei MD 11/09/2024 11:32 AM EDT
--- OUTSIDE RECORDS SUMMARY | 2024-11-09 11:05 | XMS_ITS | Encounter Summary ---
Author Organization [facility] Address [address] [place] [address] Phone Care Team Providers Care Picking Supervisor Name Role Phone Rozina Nicole MD Primary Care Provider [phone] Encounter Details Date Type Department Care Team (Late st Contact Info) Description 05/08/2020 Orders Only [facility] [address] [place] [address] Provider, MD Wendy Social History [...] on filedocumented in this encounter Care Teams Picking Supervisor Relationship Specialty Start Date End Date Rozina Nicole MD [address] [place], [place] PCP - General 02/21/20 documented as of this encounter
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
--- OUTSIDE RECORDS SUMMARY | 2024-11-09 11:06 | XMS_ITS | Encounter Summary ---
Author Organization [facility]. Address [address] [address] Phone Care Team Providers Care Telephone Installer Name Role Phone Rozina Nicole MD Primary Care Provider [phone] Encounter Details Date Type Department Care Team ([facility] st Contact Info) Description 10/29/2024 Treatment [facility]. [address] [address] Yamileth Varghese MD [address] [address] End stage renal disease; Dependence [...] Dialysis Note - Yamileth Varghese MD - 10/29/2024 12:00 AM EDT BASIC NOTE Patient: Meliza Perry : 1970 Note Author: YAMILETH VARGHESE MD Service Date: 10/29/2024 Telehealth encounter using audiovisual technology, performed according to state requirements. Appropriate patient consent obtained. This patient was personally seen [id number] for a basic visit as part of routine monthly dialysis care for end stage renal disease. Attending Deputy Sheriff/Investigator: YAMILETH VARGHESE Dialysis Location: [facility] Schedule: Shift: 1 ADEQUACY ASSESSMENT Kt/V, Natural Log 1.25 (10/25/24) [...] 3.5 10/20/24 3.7 09/17/24 3.6 08/16/24 Potassium 4.9 11/05/24 6.2 11/03/24 5.4 10/29/24 Hemoglobin A1C 4.9 08/16/24 5.0 05/14/24 4.7 02/20/24 ADDITIONAL LABS White Blood Cells 7.4 (10/20/24) 7.7 (09/17/24) 6.6 (08/16/24) Cholesterol 121 (08/16/24) 155 (05/14/24) 174 (02/20/24) HDL 44 (08/16/24) 47 (05/14/24) 58 (02/20/24) LDL-Calc 59 (08/16/24) 82 (05/14/24) 89 (02/20/24) Triglycerides 88 (08/16/24) 130 (05/14/24) 136 (02/20/24) Hep B Surface Antibody ?1,000 (02/20/24) Uric Acid 9.6 (02/20/24) ADDITIONAL COMMENT COMMENTS: 07/07/24 doing better now, re ent hosp [facility] for GI flare 07/12/24: same issues w [...] cont same issues 09/20/24 cont on/off pro 10/29/24 same issues 11/05/24 stable Signed by: YAMILETH VARGHESE MD on 11/08/2024 at 10:46:27 AM Transcribed by: YAMILETH VARGHESE MD on 11/08/2024 at 10:46:27 AM documented in this encounter Plan of Treatment Not on file documented as of this encounter Visit Diagnoses Diagnosis End stage renal disease Dependence on renal dialysis documented in this encounter Care Teams Telephone Installer Relationship Specialty Start Date End Date Rozina Nicole MD [address] [place] [address] PCP - General 02/21/20 documented as of this encounter
--- OUTSIDE RECORDS SUMMARY | 2024-11-09 11:06 | XMS_ITS | Encounter Summary ---
Author Organization [facility]. Address [address] [address] Phone Care Team Providers Care Lithograph Designer Name Role Phone Rozina Nicole MD Primary Care Provider [phone] Encounter Details Date Type Department Care Team ([facility] st Contact Info) Description 11/05/2024 Treatment [facility]. [address] [address] Yamileth Varghese MD [address] [address] End stage renal disease; Dependence [...] Dialysis Note - Yamileth Varghese MD - 11/05/2024 12:00 AM EDT BASIC NOTE Patient: Meliza Perry : 1970 Note Author: YAMILETH VARGHESE MD Service Date: 11/05/2024 Telehealth encounter using audiovisual technology, performed according to state requirements. Appropriate patient consent obtained. This patient was personally seen [id number] for a basic visit as part of routine monthly dialysis care for end stage renal disease. Attending Truck Bracer: YAMILETH VARGHESE Dialysis Location: [facility] Schedule: Shift: 1 ADEQUACY ASSESSMENT Kt/V, [...] by: YAMILETH VARGHESE MD on 11/08/2024 at 10:46:56 AM Transcribed by: YAMILETH VARGHESE MD on 11/08/2024 at 10:46:56 AM documented in this encounter Plan of Treatment Not on file documented as of this encounter Visit Diagnoses Diagnosis End stage renal disease Dependence on renal dialysis documented in this encounter Care Teams Lithograph Designer Relationship Specialty Start Date End Date Rozina Nicole MD [address] [place] [address] PCP - General 02/21/20 documented as of this encounter
--- OUTSIDE RECORDS SUMMARY | 2024-11-09 11:06 | XMS_ITS | Encounter Summary ---
Author Organization [facility] Address [address] [facility] [address] [place] [address] Phone Care Team Providers Care Welding Machine Operator Friction Name Role Phone Rozina Nicole MD Primary Care Provider [phone] Encounter Details Date Type Department Care Team ([facility] st Contact Info) Description 05/22/2020 Orders Only [facility] [address] [place] [address] Jon Wang MD [address] [facility] [address] [place] [phone] Stage 5 chronic kidney disease (HCC) Social [...] (HCC) documented in this encounter Care Teams Welding Machine Operator Friction Relationship Specialty Start Date End Date Rozina Nicole MD [address] [place] [address] [address] [place] PCP - General 02/21/20 documented as of this encounter
--- OUTSIDE RECORDS SUMMARY | 2024-11-09 11:06 | XMS_ITS | Clinical Summary ---
Author Organization [facility] Address [address] [facility] [address] [place] [address] Phone Care Team Providers Care Bioinformatician Name Role Phone Rozina Nicole MD Primary [...] file Insurance ACO ACO ACO [employer] [place] [address] [place] [address] ACO ACO ACO [place] [id number] Care Teams Bioinformatician Relationship Specialty Start Date End Date Rozina Nicole MD [address] [place] [address] PCP - General 06/26/18 Additional Source Comments The information contained in this document represents components of the legal health record. It is not the complete legal health record.[facility]
--- OUTSIDE RECORDS SUMMARY | 2024-11-09 11:06 | XMS_ITS | Encounter Summary ---
Author Organization [facility] Address [address] [facility] [address] [place] [address] Phone Care Team Providers Care Social Work Program Coordinator Name Role Phone Rozina Nicole MD Primary Care Provider [phone] Encounter Details Date Type Department Care Team ([facility] st Contact Info) Description 05/15/2020 Orders Only [facility] [address] [place] [phone] Jon Wang MD [address] [facility] [address] [place] [phone] Stage 5 chronic kidney disease (HCC) Social [...] (HCC) documented in this encounter Care Teams Social Work Program Coordinator Relationship Specialty Start Date End Date Rozina Nicole MD [address] [place] [address] [address] [place] PCP - General 02/21/20 documented as of this encounter
--- OUTSIDE RECORDS SUMMARY | 2024-11-09 11:06 | XMS_ITS | Encounter Summary ---
Author Organization [facility] Address [address] [facility] [address] [place] [address] Phone Care Team Providers Care Billing Auditor Name Role Phone Rozina Nicole MD Primary Care Provider [phone] Reason for Visit * Reason Onset Date Comments Med Refill 11/23/2020 Encounter Details Date Type Department Care Team (Late st Contact Info) Description 11/23/2020 Refill [facility] [address] [facility] [address] [place] [phone] Nkechi Salvador, ALEX [address] [facility] [address] [place] [address] Social History Tobacco Use Types [...] on filedocumented in this encounter Care Teams Billing Auditor Relationship Specialty Start Date End Date Rozina Nicole MD [address] [place], [place] PCP - General 02/21/20 documented as of this encounter
--- OUTSIDE RECORDS SUMMARY | 2024-11-09 11:06 | XMS_ITS | Clinical Summary ---
Author Organization [facility] Address [address] [place] [address] Care Team Providers Care Boarding Room Fixer Name Role Phone Rozina Nicole MD Primary Care Provider [phone] Jon Wang MD Unavailable [phone] Allergies No known active allergies Medications [...] Description 10/13/2024 8:31 PM EDT Anesthesia Event [facility] [address] [place] [phone] Enmanuel Fisher MD 10/13/2024 8:00 PM EDT - 10/13/2024 9:51 PM EDT [facility] [address] [place] [phone] David Harrell MD LAPAROSCOPY DIAGNOSTIC, LYSIS OF ADHESIONS 10/11/2024 12:06 PM EDT Anesthesia Event [facility] [address] [place] [phone] Irving Oliver DO Boucher, Sarah J, SANDY 10/11/2024 11:40 AM EDT - 10/11/2024 12:19 PM EDT [facility] [address] [place] [phone] Kristopher Kramer MD ENDOSCOPY UPPER 10/11/2024 1:59 AM EDT - 10/19/2024 4:00 PM EDT Hospital Encounter [facility] [address] [place] [phone] Aniket Chand III, Roberta Gutiérrez MD Elajami, [...] Exposure: Past Tobacco Cessation:Counseling Given: Not Answered [facility] Utilities Answer Date Recorded In the [...] any time in the past 12 m [facility], were you homeless or living in a alf (including now)? No 10/11/2024 Comments Unknown Sex [...] of4 resultswithin the time period is included. [facility] White Blood Cell Count 4.4 4.0 - 11.0 Thou/uL 10/18/2024 8:09 AM EDT [facility] Platelet Count 275 150 - 450 Thou/uL 10/18/2024 8:09 AM EDT [facility] Hemoglobin 8.2(L) 11.7 - 15.7 g/dL 10/18/2024 8:09 AM EDT [facility] Hematocrit 25.4(L) 35.0 - 47.0 % 10/18/2024 8:09 AM [facility] Red Blood Cell Count 2.74(L) 4.00 - 5.40 Mil/uL 10/18/2024 8:09 AM [facility] MCV 93 80 - 100 fL 10/18/2024 8:09 AM [facility] MCH 29.9 27.0 - 31.0 pg 10/18/2024 8:09 AM [facility] MCHC 32.3 30.0 - 36.0 g/dL 10/18/2024 8:09 AM [facility] RDW 17.2(H) 11.5 - 14.5 % 10/18/2024 8:09 AM [facility] MPV 9.0 7.5 - 12.5 fL 10/18/2024 8:09 AM [facility] Neutrophils Auto 55.0 % 10/19/19 8:09 AM [facility] Immature Granulocytes 0.5 % 10/18/2024 8:09 AM [facility] Lymphocytes Auto 29.9 % 10/19/19 8:09 AM [facility] Monocytes Auto 9.4 % 10/18/2024 8:09 AM [facility] Eosinophils Auto 4.3 % 10/19/19 8:09 AM [facility] Basophils Auto 0.9 % 10/18/2024 8:09 AM [facility] Abs Neutrophils Auto 2.41 2.00 - 7.50 Thou/uL 10/18/2024 8:09 AM [facility] Abs Immature Granulocytes 0.02 0.00 - 0.10 Thou/uL 10/18/2024 8:09 AM [facility] Abs Lymphocytes Auto 1.31(L) 1.50 - 4.50 Thou/uL 10/18/2024 8:09 AM [facility] Abs Monocytes Auto 0.41 0.20 - 1.50 Thou/uL 10/18/2024 8:09 AM [facility] Abs Eosinophils Auto 0.19 0.00 - 0.70 Thou/uL 10/18/2024 8:09 AM [facility] Abs Basophils Auto 0.04 0.00 - 0.20 Thou/uL 10/18/2024 8:09 AM [facility] Blood Blood specimen / Unknown 10/18/2024 7:19 AM EDT 10/18/2024 7:55 AM EDT Arina Amaya MD LAB BLOOD ORDERABLES Final Result [address] [address], [facility] [address] [place] [address] * (ABNORMAL) Basic Metabolic Panel (10/18/2024 7:19 AM EDT) Only the most recent of9 resultswithin the time period is included. Glucose 87 65 - 99 mg/dL 10/18/2024 8:29 AM [facility] Comment:Fasting: <100 mg/dL, Non-Fasting: <200 mg/dL (ADA 2004) Blood Urea Nitrogen (BUN) 13 8 - 21 mg/dL 10/18/2024 8:29 AM [facility] Creatinine 4.8(H) 0.4 - 1.1 mg/dL 10/18/2024 8:29 AM [facility] eGFR 10(L) >59 10/18/2024 8:29 AM [facility] Comment:CKD-EPI (2020) in mL /min/1.73 sq meters. Sodium 137 136 - 145 mmol/L 10/18/2024 8:29 AM [facility] Potassium 3.6 3.4 - 5.3 mmol/L 10/18/2024 8:29 AM [facility] Chloride 103 98 - 107 mmol/L 10/18/2024 8:29 AM [facility] CO2 26 22 - 33 mmol/L 10/18/2024 8:29 AM [facility] Anion Gap 8 7 - 17 10/18/2024 8:29 AM [facility] Calcium 8.9 8.7 - 10.5 mg/dL 10/18/2024 8:29 AM [facility] BUN/Creatinine Ratio 3(L) 10.0 - 25.0 Ratio 10/18/2024 8:29 AM [facility] Blood Blood specimen / Unknown 10/18/2024 7:19 AM EDT 10/18/2024 7:55 AM EDT Arina Amaya MD LAB BLOOD ORDERABLES Final Result [address] [address], [address] [address] * Transfuse RBC's: (10/15/2024 9:14 PM EDT) Arina Amaya MD BLOOD TRANSFUSION ORDERABL ES Final Result * Type and Screen (10/15/2024 2:19 PM EDT) Only the most recent of2 resultswithin the time period is included. ABO/Rh O POSITIVE 10/15/2024 4:38 PM EDT [facility] Antibody Screen NEGATIVE 10/15/2024 4:38 PM EDT [facility] Specimen Expiration 10/18/2024 10/15/2024 4:38 PM EDT [facility] Unit Number [id number] 10/15/2024 6:22 PM EDT [facility] Blood Component Type LR RBC CONTAINER 2 10/15/2024 6:22 PM EDT [facility] Unit Division 00 10/15/2024 6:22 PM EDT [facility] Unit Status ISSUED,FINAL 10/16/2024 12:08 AM EDT [facility] Transfusion Status OK TO TRANSFUSE 10/15/2024 6:22 PM EDT [facility] Crossmatch Result Electronically Compatible 10/15/2024 6:22 PM EDT [facility] Blood Blood specimen / Unknown 10/15/2024 2:19 PM EDT 10/15/2024 3:38 PM EDT Comment:Blood Arina Amaya MD BLOOD BANK TEST ORDERABLES Final Result HOSPITAL LAB See Below [address] [address] * Prepare RBC's:Prepare in: Units; Number of [...] of4 resultswithin the time period is included. [facility] White Blood Cell Count 4.1 4.0 - 11.0 Thou/uL 10/15/2024 8:55 AM [facility] Platelet Count 218 150 - 450 Thou/uL 10/15/2024 8:55 AM [facility] Hemoglobin 7.0(L) 11.7 - 15.7 g/dL 10/15/2024 8:55 AM [facility] Hematocrit 21.8(L) 35.0 - 47.0 % 10/15/2024 8:55 AM [facility] Red Blood Cell Count 2.25(L) 4.00 - 5.40 Mil/uL 10/15/2024 8:55 AM [facility] MCV 97 80 - 100 fL 10/15/2024 8:55 AM [facility] MCH 31.1(H) 27.0 - 31.0 pg 10/15/2024 8:55 AM [facility] MCHC 32.1 30.0 - 36.0 g/dL 10/15/2024 8:55 AM [facility] RDW 14.4 11.5 - 14.5 % 10/15/2024 8:55 AM [facility] MPV 9.2 7.5 - 12.5 fL 10/15/2024 8:55 AM [facility] Blood Blood specimen / Unknown 10/15/2024 7:57 AM EDT 10/15/2024 8:[address] Foss MD LAB BLOOD ORDERABLES Final Re sult Performing Organization Address [facility] [place] [address], [address] [address] * Phosphorus (10/15/2024 7:57 AM EDT) Only the most recent of2 resultswithin the time period is included. Phosphorus 3.8 2.7 - 4.5 mg/dL 10/15/2024 11:43 AM EDT [facility] 10/15/2024 7:57 AM EDT 10/15/2024 8:[address] Foss MD LAB BLOOD ORDERABLES Final Re sult Performing Organization Address [facility] [place] [address], [address] [address] * Magnesium (10/15/2024 7:57 AM EDT) Only the most recent of3 resultswithin the time period is included. Magnesium 1.8 1.6 - 2.7 mg/dL 10/15/2024 10:04 AM EDT [facility] Blood Blood specimen / Unknown 10/15/2024 7:57 AM EDT 10/15/2024 8:[address] Foss MD LAB BLOOD ORDERABLES Final Re sult Performing Organization Address City/[facility] [place] [address], [address] [address] * (ABNORMAL) TRANSFERRIN (10/14/2024 10:10 AM EDT) Transferrin 125(L) 200 - 360 mg/dL 10/14/2024 12:13 PM EDT [facility] Blood Blood specimen / Unknown 10/14/2024 10:10 AM EDT 10/14/2024 11:23 AM EDT us David Harrell MD LAB BLOOD ORDERABLES Final R esult Performing Organization Address City/[facility]/[place] [address], [address] [address] * PREALBUMIN (10/14/2024 10:10 AM EDT) Prealbumin 24 20 - 40 mg/dL 10/14/2024 12:13 PM EDT [facility] Blood Blood specimen / Unknown 10/14/2024 10:10 AM EDT 10/14/2024 11:23 AM EDT us David Harrell MD LAB BLOOD ORDERABLES Final R esult Performing Organization Address City/[facility] [place] [address], [address] [address] * (ABNORMAL) ALBUMIN (10/14/2024 10:10 AM EDT) Albumin 3.1(L) 3.5 - 5.0 g/dL 10/14/2024 12:13 PM EDT [facility] Blood Blood specimen / Unknown 10/14/2024 10:10 AM EDT 10/14/2024 11:23 AM EDT us David Harrell MD LAB BLOOD ORDERABLES Final R esult Performing Organization Address City/[facility] [place] [address], [address] [address] * Nicotine, Cotinine, Serum (10/14/2024 5:50 AM EDT) Nicotine <2 ng/mL 10/19/2024 9:54 AM EDT [facility] Comment: (NOTE) Reference Ranges(ng/mL): Non-Smoker Active Tobacco User < or = to 4 2-10 Cotinine <2 ng/mL 10/19/2024 9:54 AM EDT [facility] [place] Comment: (NOTE) Reference Ranges(ng/mL): Non-Smoker Active Tobacco User < or = to 8 16-145 This test was developed and its analytical performance characteristics have been determined by [employer] [facility] [place], [place]. It has not been cleared or approved by the U.S. Food and Drug Administration. This assay has been validated pursuant to the CLIA regulations and is used for clinical purposes. 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 Patient's pre-procedure mental status: [...] change with DL us Enmanuel Fisher MD MD ANESTHESIA Final Result * CT Abdomen+pelvis w [...] 4:40pm on 10/13/24 and results were acknowledged. tC Foss MD IMG CT ORDERABLES Final Resul t * Hepatitis B Virus (HBV) Surface Antigen Screen, Reflex Confirmation (10/11/2024 3:01 PM EDT) Hepatitis B Surface Ag Screen Nonreactive Nonreactive 10/12/2024 11:17 AM EDT [facility] Blood Blood specimen / Unknown 10/11/2024 3:01 PM EDT 10/11/2024 4:41 PM EDT Efrain Campos MD LAB BLOOD ORDERABLES Final Result [facility] [address] [place] [address], [place] * Hepatitis B Virus (HBV) Core Antibody Total (10/11/2024 3:01 PM EDT) Hepatitis B Core Antibody Total Nonreactive Nonreactive 10/12/2024 11:17 AM EDT [facility] Blood Blood specimen / Unknown 10/11/2024 3:01 PM EDT 10/11/2024 4:41 PM EDT Efrain Campos MD LAB BLOOD ORDERABLES Final Result [facility] [address] [place] [address], [place] * Hepatitis B Virus (HBV) Surface Antibody (10/11/2024 3:01 PM EDT) Pathologist [facility] Hepatitis B Surface Antibody Reactive (Immune) Reactive (Immune) 10/12/2024 11:17 AM EDT [facility] Blood Blood specimen / Unknown 10/11/2024 3:01 PM EDT 10/11/2024 4:41 PM EDT Efrain Campos MD LAB BLOOD ORDERABLES Final Result [facility] [address] [place] [address], [place] * POCT Glucose, Fingerstick (10/11/2024 1:21 PM EDT) Only the most recent of2 resultswithin the time period is included. [facility] POC Glucose 86 65 - 99 mg/dL 10/11/2024 1:25 PM EDT Blood specimen / Unknown 10/11/2024 1:21 PM EDT 10/11/2024 1:25 PM EDT Aniket Knight Arters III, DO POINT OF CARE TEST ORDERA BLES Final Result Performing Organization Address City/[facility] Co de Phone Number HOSPITAL [...] - 1.9 mmol/L 10/11/2024 3:00 AM EDT [facility] Blood Blood specimen / Unknown 10/11/2024 2:25 AM EDT 10/11/2024 2:43 AM EDT Aniket Chand III, DO LAB BLOOD ORDERABLES Jennifer l Result Performing Organization Address [facility] [place] [address], [place] [address] * ABO Confirmation (10/11/2024 2:24 AM EDT) ABO/Rh O POSITIVE 10/11/2024 3:26 AM EDT [facility] Blood Blood specimen / Unknown 10/11/2024 2:24 AM EDT 10/11/2024 2:51 AM EDT Aniket Chand III, BLOOD BANK TEST ORDERABLE S Final Result Performing Organization Address [facility] [place] [address], [place] [address] * (ABNORMAL) Hepatic function panel (10/11/2024 2:24 AM EDT) Alkaline Phosphatase 91 32 - 122 U/L 10/11/2024 3:03 AM EDT [facility] Aspartate Aminotrans (AST) 10 10 - 50 U/L 10/11/2024 3:03 AM EDT [facility] Alanine Aminotrans (ALT) 5(L) 10 - 50 U/L 10/11/2024 3:13 AM EDT [facility] Bilirubin, Total 0.3 0.2 - 1.0 mg/dL 10/11/2024 3:03 AM EDT [facility] Protein, Total 4.6(L) 6.3 - 8.3 g/dL 10/11/2024 3:03 AM EDT [facility] Albumin 2.7(L) 3.5 - 5.0 g/dL 10/11/2024 3:03 AM EDT [facility] Bilirubin, Direct 0.1 0 - 0.2 mg/dL 10/11/2024 3:03 AM EDT [facility] Globulin 1.9 1.5 - 3.9 g/dL 10/11/2024 3:03 AM EDT [facility] Albumin/Globulin Ratio 1.4 1.0 - 3.0 Ratio 10/11/2024 3:03 AM EDT [facility] Blood Blood specimen / Unknown 10/11/2024 2:24 AM EDT 10/11/2024 2:44 AM EDT us Aniket Chand III, DO LAB BLOOD ORDERABLES Jennifer alarcon Result [address] [address], [address] [address] from Last 3 Months Insurance [facility] MEDICARE PART A & B [facility] MEDICARE PART A & B [facility] MEDICARE PART A & B Advance Directives * Full Code (Latest Code Status on File) Date Activated Date Inactivated Comments 10/11/2024 5:25 AM Care Teams Boarding Room Fixer Relationship Specialty Start Date End Date Rozina Nicole MD [address] [place] [address] PCP - General Family Medicine 10/11/24 Jon Wang MD [address] [facility] [address] [place] [address] Physician Internal Medicine 10/11/24
--- OUTSIDE RECORDS SUMMARY | 2024-11-09 11:06 | XMS_ITS | Clinical Summary ---
Author Organization [facility] Address [address] [place] [address] [place] [address] Phone Care Team Providers Care Wood Tile Installation Helper Name Role Phone Rozina Nicole MD Primary Care Provider [phone] Allergies Active Allergy Reactions Criticality Noted Date [...] ureter 05/02/2020 05/02/2020 Hypertensive heart disease w [facility] heart failure 05/02/2020 09/07/2020 Encounters Date Type Department Care Team Description 11/05/2024 Treatment [facility] [address] [phone] Jon Wang MD End stage renal disease; Dependence on renal dialysis 10/29/2024 Treatment [facility] [address] [facility] [address] [place] [phone] Jon Wang MD End stage renal disease; Dependence on renal dialysis 10/25/2024 Treatment [facility] [address] [phone] Jon Wang MD End stage renal disease; Dependence on renal dialysis 10/08/2024 Treatment [facility] [address] [phone] Jon Wang MD End stage renal disease; Dependence on renal dialysis 10/08/2024 Orders Only [facility] [address] [phone] Jon Wang MD 09/27/2024 Treatment [facility] [address] [phone] Jon Wang MD End stage renal disease; Dependence on renal dialysis 09/20/2024 Treatment [facility] [address] [phone] Jon Wang MD End stage renal disease; Dependence on renal dialysis 09/13/2024 Treatment [facility] [address] [phone] Jon Wang MD End stage renal disease; Dependence on renal dialysis 09/10/2024 Treatment [facility] [address] [phone] Jon Wang MD End stage renal disease; Dependence on renal dialysis 09/10/2024 Treatment [facility] [place] [address] [facility] [address] [place] [address] Jon Wang MD End stage renal disease; Dependence on renal dialysis 09/06/2024 Treatment [facility] [address] [phone] Jon Wang MD End stage renal disease; Dependence on renal dialysis 09/03/2024 [facility] [address] [phone] Jon Wang MD End stage renal disease; Dependence on renal dialysis 08/27/2024 [facility] [address] [phone] Jon Wang MD End stage renal disease; Dependence on renal dialysis 08/16/2024 [facility] [address] [phone] Jon Wang MD End stage renal disease; [...] Date/Time Associated Diagnosis Comments LIH (HC) Routine 11/05/2024 3:00 AM EDT POTASSIUM Routine 11/05/2024 3:00 AM EDT LIH () Routine 11/03/2024 3:00 AM EDT POTASSIUM Routine 11/03/2024 3:00 AM EDT LIH () Routine 10/29/2024 3:00 AM EDT POTASSIUM Routine 10/29/2024 3:00 AM EDT HEMOGLOBIN AND HEMATOCRIT, BLOOD Routine 10/29/2024 3:00 AM EDT LIH () Routine 10/25/2024 3:00 AM EDT KT/V NATURAL LOG, URR () Routine 10/25/2024 3:00 AM EDT LIH () Routine 10/22/2024 3:00 AM EDT KT/V NATURAL LOG, URR () Routine 10/22/2024 3:00 AM EDT HEPATITIS B [...] EDT KT/V NATURAL LOG, URR () Routine 09/17/2024 3:00 AM EDT CBC AND DIFFERENTIAL Routine 09/17/2024 3:00 AM EDT CONFIRMATION TEST HCV Routine 09/06/2024 3:00 AM EDT HEPATITIS C ABS W/REFLEX RNA DETECTR Routine 09/06/2024 3:00 AM EDT PHOSPHATE ( PHOSPHORUS) Routine 09/01/2024 3:00 AM EDT LIH () Routine 09/01/2024 3:00 AM EDT HEMOGLOBIN Routine 09/01/2024 3:00 AM EDT LIH (HC) Routine 08/27/2024 3:00 AM EDT HEMOGLOBIN AND HEMATOCRIT, BLOOD Routine 08/27/2024 3:00 AM EDT KT/V NATURAL LOG, URR () Routine 08/27/2024 3:00 AM EDT LIH () Routine 08/23/2024 3:00 AM EDT KT/V NATURAL LOG, URR () Routine 08/23/2024 3:00 AM EDT LIH () Routine 08/18/2024 3:00 AM EDT KT/V NATURAL LOG, URR () Routine 08/18/2024 3:00 AM EDT HEMOGLOBIN A1C [...] EDT from Last 3 Months Results * LIH (11/05/2024 3:00 AM EDT) Only the most recent of14 resultswithin the time period is included. Lipemia Normal Normal [facility] Icterus Normal Normal [facility] Hemolysis Normal Normal [facility] 11/05/2024 3:00 AM EDT 11/06/2024 1:40 PM EDT us Jon Wang MD LAB [id number] SOLICITED RESULTS Final Result Performing Organization Address [facility]/ZIP Co de Phone Number [facility]PS [facility] [address] [place] [address] * Potassium (11/05/2024 3:00 AM EDT) Only the most recent of3 resultswithin the time period is included. Potassium 4.9 3.4 - 5.0 mEq/L [facility] 11/05/2024 3:00 AM EDT 11/06/2024 1:40 PM EDT us Jon Wang MD LAB BLOOD ORDERABLES Final Re sult Performing Organization Address City/[facility] Co de Phone Number [facility] [address] [place] [address] * (ABNORMAL) Hemoglobin and hematocrit (10/29/2024 3:00 [...] sult Performing Organization Address City/[facility]/ZIP Co de Phone Number [facility] [address] [place] [address] * Kt/V Natural Log, URR (10/25/2024 3:00 [...] 1:47 PM EDT Jon Wang MD LAB [id number] SOLICITED RESULTS Final Result Performing Organization Address [facility] Co de Phone Number [facility] [address] [place] [address] * (ABNORMAL) Calcium Phosphorus Product, Adjusted (10/20/2024 [...] 2:40 PM EDT Jon Wang MD LAB [id number] SOLICITED RESULTS Final Result Performing Organization Address [facility] Co de Phone Number [facility] [address] [place] [address] * Hepatitis B Surface Ag w/Reflex Confirmation (10/20/2024 3:00 AM EDT) Only the most recent of3 resultswithin the time period is included. Hep B Surface Antigen Negative Negative [facility] 10/20/2024 3:00 AM EDT 10/21/2024 2:40 PM EDT Jon Wang MD LAB BLOOD ORDERABLES Final Re sult Performing Organization Address [facility] de Phone Number [facility] [address] [place] [address] * BUN/CREATININE RATIO (10/20/2024 3:00 AM EDT) Only the most recent of3 resultswithin the time period is included. Pathologist [facility] BUN/Creatinine Ratio 2.1 <=23.0 [facility] 10/20/2024 3:00 AM EDT 10/21/2024 2:40 PM EDT Jon Wang MD LAB [id number] SOLICITED RESULTS Final Result Performing Organization Address [facility] de Phone Number [facility] [address] [place] [address] * (ABNORMAL) TSAT (10/20/2024 3:00 AM EDT) [...] Final Re sult [facility] [address] [place] [address] * (ABNORMAL) CBC and Differential (10/20/2024 3:00 [...] 3:00 AM EDT 10/21/2024 2:08 PM EDT Jon Wang MD LAB BLOOD ORDERABLES Final Re sult Performing Organization Address [facility] Co de Phone Number [facility] [address] [place] [address] * ALT (10/20/2024 3:00 AM EDT) Only the most recent of3 resultswithin the time period is included. ALT (SGPT) 19 10 - 49 U/L [facility] 10/20/2024 3:00 AM EDT 10/21/2024 2:40 PM EDT Jon Wang MD LAB BLOOD ORDERABLES Final Re sult Performing Organization Address [facility] de Phone Number [facility] [address] [place] [address] * (ABNORMAL) AST (10/20/2024 3:00 AM EDT) Only the most recent of3 resultswithin the time period is included. AST (SGOT) 39(H) <34 U/L [facility] 10/20/2024 3:00 AM EDT 10/21/2024 2:40 PM EDT Jon Wang MD LAB BLOOD ORDERABLES Final Re sult Performing Organization Address [facility] de Phone Number [facility] [address] [place] [address] * (ABNORMAL) Protein, total (10/20/2024 3:00 AM EDT) Only the most recent of3 resultswithin the time period is included. Total Protein 5.8(L) 6.4 - 8.9 g/dL [facility] 10/20/2024 3:00 AM EDT 10/21/2024 2:40 PM EDT Jon Wang MD LAB BLOOD ORDERABLES Final Re sult Performing Organization Address [facility] Co de Phone Number [facility] [address] [place] [address] * (ABNORMAL) Alkaline phosphatase (10/20/2024 3:00 AM EDT) Only the most recent of3 resultswithin the time period is included. Alkaline Phosphatase 123(H) 46 - 116 U/L [facility] 10/20/2024 3:00 AM EDT 10/21/2024 2:40 PM EDT Jon Wang MD LAB BLOOD ORDERABLES Final Re sult Performing Organization Address City/[facility] Co de Phone Number [facility] [address] [place] [address] * Magnesium (10/20/2024 3:00 AM EDT) Only the most recent of3 resultswithin the time period is included. Magnesium 2.2 1.9 - 2.7 mg/dL [facility] 10/20/2024 3:00 AM EDT 10/21/2024 2:40 PM EDT Jon Wang MD LAB BLOOD ORDERABLES Final Re sult Performing Organization Address [facility] Co de Phone Number [facility] [address] [place] [address] * Lactate dehydrogenase (10/20/2024 3:00 AM EDT) Only the most recent of3 resultswithin the time period is included. LDH 237 120 - 246 U/L [facility] 10/20/2024 3:00 AM EDT 10/21/2024 2:40 PM EDT Jon Wang MD LAB BLOOD ORDERABLES Final Re sult Performing Organization Address [facility] Co de Phone Number [facility] [address] [place] [address] * (ABNORMAL) Glucose, random (10/20/2024 3:00 AM EDT) Only the most recent of3 resultswithin the time period is included. Glucose 126(H) 70 - 99 mg/dL [facility] Comment: ADA guidelines outline the following fasting glucose ranges: Normal: <100 Prediabetes: 100-125 Diabetes: >125 10/20/2024 3:00 AM EDT 10/21/2024 2:40 PM EDT Jon Wang MD LAB BLOOD ORDERABLES Final Re sult Performing Organization Address [facility] de Phone Number [facility] [address] [place] [address] * (ABNORMAL) Ferritin (10/20/2024 3:00 AM EDT) Only the most recent of3 resultswithin the time period is included. Pathologist [facility] Ferritin 1,296(H) 10 - 291 ng/mL [facility] 10/20/2024 3:00 AM EDT 10/21/2024 2:40 PM EDT Jon Wang MD LAB BLOOD ORDERABLES Final Re sult Performing Organization Address [facility] de Phone Number [facility] [address] [place] [address] * (ABNORMAL) Creatinine, serum (10/20/2024 3:00 AM EDT) Only the most recent of3 resultswithin the time period is included. [facility] Creatinine 4.75(H) 0.55 - 1.02 mg/dL [facility] 10/20/2024 3:00 AM EDT 10/21/2024 2:40 PM EDT Jon Wang MD LAB BLOOD ORDERABLES Final Re sult Performing Organization Address [facility] de Phone Number [facility] [address] [place] [address] * (ABNORMAL) Bilirubin, total (10/20/2024 3:00 AM EDT) Only the most recent of3 resultswithin the time period is included. Pathologist [facility] Total Bilirubin <0.2(L) 0.3 - 1.2 mg/dL [facility] 10/20/2024 3:00 AM EDT 10/21/2024 2:40 PM EDT Jon Wang MD LAB BLOOD ORDERABLES Final Re sult Performing Organization Address [facility] Co de Phone Number [facility] [address] [place] [address] * (ABNORMAL) Electrolyte panel (10/20/2024 3:00 AM [...] ORDERABLES Final Re sult Performing Organization Address [facility] de Phone Number [facility] [address] [place] [address] * (ABNORMAL) Hemoglobin (10/08/2024 3:00 AM EDT) Only the most recent of2 resultswithin the time period is included. Hgb 7.9(L) 11.2 - 15.7 g/dL [facility] Hemoglobin x 3 23.7(L) 33.6 - 47.1 g/dL [facility] 10/08/2024 3:00 AM EDT 10/09/2024 2:04 PM EDT Jon Wang MD LAB BLOOD ORDERABLES Final Re sult Performing Organization Address [facility] Co de Phone Number [facility] [address] [place] [address] * Phosphorus (10/04/2024 3:00 AM EDT) Only the most recent of2 resultswithin the time period is included. Pathologist [facility] Phosphorus, Serum 3.2 2.5 - 5.0 mg/dL [facility] 10/04/2024 3:00 AM EDT 10/05/2024 11:59 AM EDT Jon Wang MD LAB BLOOD ORDERABLES Final Re sult Performing Organization Address [facility] de Phone Number [facility] [address] [place] [address] * Confirmation Test HCV (09/06/2024 3:00 AM EDT) Pathologist [facility] Hep C Ab Confirmation Not needed [facility] 09/06/2024 3:00 AM EDT 09/07/2024 2:14 PM EDT Jon Wang MD LAB BLOOD ORDERABLES Final Re sult Performing Organization Address [facility] de Phone Number [facility] [address] [place] [address] * HEPATITIS C ABS W/REFLEX RNA DETECTR (09/06/2024 3:00 AM EDT) [facility] Hep C Virus Ab Non-Reacti ve Non-Reacti ve [facility] 09/06/2024 3:00 AM EDT 09/07/2024 2:15 PM EDT Jon Wang MD LAB [id number] SOLICITED RESULTS Final Result Performing Organization Address [facility] de Phone Number [facility] [address] [place] [address] * PTH, Intact (08/16/2024 3:00 AM EDT) [facility] PTH, Intact 510 160 - 721 pg/mL [facility] Comment: Suggested (KDIGO) ESRD maintenance range is two to nine times the upper normal limit (80.1 pg/mL) for the laboratory. 08/16/2024 3:00 AM EDT 08/17/2024 12:40 PM EDT Jon Wang MD LAB BLOOD ORDERABLES Final Re sult Performing Organization Address [facility] de Phone Number [facility] [address] [place] [address] * Hemoglobin A1c (08/16/2024 3:00 AM EDT) Hemoglobin A1C 4.9 <5.7 % [facility] Comment: Methodology: Ion-exchange high-performance liquid chromatography (HPLC) Normal: <5.7% Prediabetes: 5.7-6.4% Diabetes: >6.4% Diabetic Glucose Control Evaluation: Therapeutic action suggested at >8.0% ADA recommends a glycemic goal of <7.0% 08/16/2024 3:00 AM EDT 08/17/2024 1:30 PM EDT Jon Wang MD LAB BLOOD ORDERABLES Final Re sult Performing Organization Address [facility] de Phone Number [facility] [address] [place] [address] * (ABNORMAL) Lipid panel (08/16/2024 3:00 AM [...] LAB BLOOD ORDERABLES Final Re sult APS ASCJAK [facility] [address] [place] [address] from Last 3 Months Insurance Medicare Medicaid [place] Care Teams Wood Tile Installation Helper Relationship Specialty Start Date End Date Rozina Nicole MD [address] [place], [place] PCP - General 02/21/20
== END 2024-11-09 10:02 | disposition home or self-care (01) ==
LOC: HO.US 10:01
PROVIDERS: PCP Internal Medicine; Visit Provider Internal Medicine
DX: K76.6 Portal hypertension (principal)
CPT/HCPCS: 76705; 76981

== ENCOUNTER → 2024-11-09 10:06 | Outpatient (BNV) | payer MEDICARE, MEDICAID, SELFPAY | PROVIDERS: PCP Internal Medicine; Visit Provider Radiology Diagnostic Radiology | DX: K76.6 Portal hypertension (principal) | CPT/HCPCS: 76705 ==

== ENCOUNTER 2024-11-13 21:29 | Inpatient (IN) | payer MEDICARE, MEDICAID, SELFPAY ==
--- NOTE | ~2024-11-13 | CT_ITS ---
CLINICAL HISTORY: abd pain, 3 weeks lap band sx revision CT abdomen and pelvis without contrast Comparison: CT of the abdomen and pelvis from 11/05/2024. Findings: Mild bibasilar atelectasis/pneumonitis, left worse than right. Lung scarring also redemonstrated. Postprocedural changes with now likely gastric bypass. Small bowel dilatation measures 3 cm distal to anastomosis concerning for small bowel obstruction in the left hemiabdomen. Also question transition point in the left lower quadrant. Appendicolith present without findings of acute appendicitis. Moderate stool burden present, including the cecum. Mild wall thickening of the large intestine is nonspecific, including the cecum. Gallbladder is distended with cholelithiasis by CT (209 of series 3). No new or worsening lymphadenopathy by noncontrast CT. Nonobstructing nephrolithiasis measures 3 mm in the left kidney. No obstructing stone in either kidney or either imaged ureter. Moderate wall thickening of the urinary bladder is nonspecific. Bilateral adrenal hyperplasia redemonstrated. Spleen approaches the upper limits of normal. Mild volume loss of the pancreas. Liver is unchanged by noncontrast imaging. Uterus is absent or obscured. No adnexal soft tissue mass by noncontrast CT. Degenerative changes include imaged hips, SI joints, and spine. Grade 1 anterolisthesis of the L4-L5. Stress phenomenon with partial lysis of the left L5 pars. Facet arthropathy is most pronounced in the lower lumbar spine. IMPRESSION: 1. Small bowel dilatation concerning for small bowel obstruction. 2. Nonobstructing nephrolithiasis of the left kidney. No hydronephrosis. This document has been electronically signed by: Toan Greer MD on 11/14/2024 01:37:18
[2024-11-13 21:38] VITALS: BP 142/82; PULSE 106; O2SAT 97; BMI 28.3
--- OUTSIDE RECORDS SUMMARY | 2024-11-13 21:49 | XMS_ITS | Encounter Summary ---
Author Organization [facility] Address [address] [facility] [address] [place] [address] Phone Care Team Providers Care Cert Occupational Therapy Asst Name Role Phone Rozina Nicole MD Primary Care Provider [phone] Encounter Details Date Type Department Care Team ([facility] st Contact Info) Description 05/15/2020 Orders Only [facility] [address] [place] [address] Jon Wang MD [address] [facility] [address] [place] [phone] Stage 5 chronic kidney disease (HCC) Social [...] (HCC) documented in this encounter Care Teams Cert Occupational Therapy Asst Relationship Specialty Start Date End Date Rozina Nicole MD [address] [place] [address] [address] [place] PCP - General 02/21/20 documented as of this encounter
--- OUTSIDE RECORDS SUMMARY | 2024-11-13 21:49 | XMS_ITS | Encounter Summary ---
Author Organization [facility] Address [address] [place] [address] Phone Care Team Providers Care Woodwinds Teacher Name Role Phone Rozina Nicole MD Primary Care Provider [phone] Encounter Details Date Type Department Care Team (Late st Contact Info) Description 05/08/2020 Orders Only [facility] [address] [place] [address] Provider, MD Wendy Social History [...] on filedocumented in this encounter Care Teams [employer] Teacher Relationship Specialty Start Date End Date Rozina Nicole MD [address] [place], [place] PCP - General 02/21/20 documented as of this encounter
--- OUTSIDE RECORDS SUMMARY | 2024-11-13 21:49 | XMS_ITS | Encounter Summary ---
Author Organization [facility] Address [address] [facility] [address] [place] [address] Phone Care Team Providers Care Sap Consultant Name Role Phone Rozina Nicole MD Primary Care Provider [phone] Encounter Details Date Type Department Care Team (Late st Contact Info) Description 05/22/2020 Orders Only [facility] [address] [place] [address] Jon Wang MD [address] [facility] [address] [place] [phone] Stage 5 chronic kidney disease (HCC) Social [...] (HCC) documented in this encounter Care Teams Sap Consultant Relationship Specialty Start Date End Date Rozina Nicole MD [address] [place] [address] [address] [place] PCP - General 02/21/20 documented as of this encounter
--- OUTSIDE RECORDS SUMMARY | 2024-11-13 21:49 | XMS_ITS | Clinical Summary ---
Author Organization 175 [facility] Address [address] [place] [address] Phone Care Team Providers Care Airframe Technical Officer Name Role Phone Sam Lynch MD Primary [...] total) by mouth at bedtime. 5 Active pantoprazole (PROTONIX) 40 mg EC tabletIndicati ons:Marginal ulcer Take 1 tablet (40 mg total) by mouth 1 (one) time each day before breakfast. Do not crush, chew, or split. 30 each 2 5 01/12/20 25 Active sucralfate (Carafate) 1 gram tablet Take 1 tablet (1 g total) by mouth every 6 (six) hours. 120 each 5 10/23/19 25 ondansetron (ZOFRAN) 4 mg tabletIndicati ons:Hx of obesity,Bariat delon surgery status,Margina l ulcer Take 1 tablet (4 mg total) by mouth every 8 (eight) hours if needed for nausea or vomiting. 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 11/26/2023 Acute kidney failure ([facility] V24) 04/26/2021 Benign essential hypertension 04/26/2021 Dependence on renal dialysis ([facility] V24) 04/26 Disorder of kidney and ureter, unspecified 04/26 ESRD on hemodialysis ([facility] V24, [facility] V28) 04/26/2021 Hypertensive heart and chron ic kidney disease with heart failure and stage 1 through stage 4 chronic kidney disease, or unspecified chronic kidney disease ([facility] V24, [facility] V28) 04/26/2021 Vitamin D deficiency 04/26/2021 Resolved Problems Problem Noted Date Diagnosed Date Resolved Date Upper GI bleed 06/30/2024 07/03/2024 Encounters Date Type Department Care Team Description 10/07/2024 Telephone Bariatric Surgery - [place] 175 [facility] [address] [place] [phone] Gerson Rosen MD 09/21/2024 Telephone Bariatric Surgery - [place] [address] [phone] Grace Abarca PA 09/01/2024 3:15 PM EDT Office Visit Bariatric Surgery - [address] [phone] Grace Abarca PA Hx of obesity (Primary Dx); Bariatric surgery status; Marginal ulcer 08/25/2024 8:42 AM EDT - 08/25/2024 6:00 PM EDT Emergency [facility] Emergency [address] [place] [phone] Claude Grey MD Epigastric pain (Primary Dx); Nausea Discharge Disposition: Home or Self Care from Last 3 Months Surgical History Surgery Date Site/Laterality Comments OTHER SURGICAL HISTORY PROCEDURE: DIALYSIS ACCESS SYSTEM LAPAROSCOPIC GASTRIC BANDING PROCEDURE: LAP ADJUSTABLE GASTRIC BAND HYSTERECTOMY PROCEDURE: HISTORICAL HYSTERECTOMY OTHER SURGICAL HISTORY PROCEDURE: COLONOSCOPY LESION REMOVAL OTHER SURGICAL HISTORY 06/13/2021 Left PROCEDURE: AL CRTJ ARVEN FSTL XCP DIR ARVEN ANAST [...] PM EDT Office Visit Bariatric Surgery - [address] [place] [address] Gerson Rosen MD [address] [place] [phone] Health Maintenance Due Date Last Done Comments Breast Cancer Screening 1971 Colorectal Cancer Screening: Colonoscopy 1971 DTaP,Tdap,and Td Vaccines (1 - Tdap) 07/26/1990 Zoster Vaccines (1 of 2) 07/26/1990 Cervical Cancer Screening: Pap Smear 07/26/1992 HIV Screening 01/20/2022 Medicare Annual Wellness Visit [...] and culture (08/25/2024 3:59 PM EDT) Specific [place] Urine 1.012 1.003 - 1.030 LAB URINALYSIS - AUTOMATED METHOD 08/25/2024 4:35 PM EDT [facility] pH, Urine 8.5(A) 5.0 - 8.0 pH LAB URINALYSIS - AUTOMATED METHOD 08/25/2024 4:35 PM EDT [facility] Leukocytes, Urine Negative Negative LAB URINALYSIS - AUTOMATED METHOD 08/25/2024 4:35 PM [facility] Nitrite, Urine Negative Negative LAB URINALYSIS - AUTOMATED METHOD 08/25/2024 4:35 PM [facility] Protein, Urine 100(A) <=Trace mg/dL LAB URINALYSIS - AUTOMATED METHOD 08/25/2024 4:35 PM [facility] Glucose, Urine Negative Negative mg/dL LAB URINALYSIS - AUTOMATED METHOD 08/25/2024 4:35 PM [facility] Ketones, Urine Negative Negative mg/dL LAB URINALYSIS - AUTOMATED METHOD 08/25/2024 4:35 PM [facility] Urobilinogen, Urine 0.2 0.2 - 1.0 mg/dL LAB URINALYSIS - AUTOMATED METHOD 08/25/2024 4:35 PM [facility] Bilirubin, Urine Negative Negative LAB URINALYSIS - AUTOMATED METHOD 08/25/2024 4:35 PM [facility] Blood, Urine Trace(A) Negative LAB URINALYSIS - AUTOMATED METHOD 08/25/2024 4:35 PM [facility] RBC, Urine 13.5(H) 0 - 4 /HPF LAB URINALYSIS - AUTOMATED METHOD 08/25/2024 4:35 PM [facility] WBC, Urine 0.1 0 - 4 /HPF LAB URINALYSIS - AUTOMATED METHOD 08/25/2024 4:35 PM [facility] Squamous Epithelial, Urine 17 0 - 60 /LPF LAB URINALYSIS - AUTOMATED METHOD 08/25/2024 4:35 PM [facility] Bacteria, Urine Negative Negative /HPF LAB URINALYSIS - AUTOMATED METHOD 08/25/2024 4:35 PM [facility] Hyaline Casts, Urine 0.4 0 - 3 /LPF LAB URINALYSIS - AUTOMATED METHOD 08/25/2024 4:35 PM EDT [facility] Urine Urine specimen obtained by clean catch procedure / Unknown Non-blood Collection / Unknown 08/25/2024 3:59 PM EDT 08/25/2024 4:25 PM EDT John Thorneshayan Jones PA LAB URINE ORDERABLES Jennifer l Result Performing Organization Address [facility] Co de Phone Number [facility] [address] [place] [address], [place] [phone] * Anguiano urine culture tube (08/25/2024 3:59 PM EDT) Extra Tube Hold for add-ons. 08/25/2024 6:01 PM EDT [facility] Comment:Auto resulted. Urine Urine specimen obtained by clean catch procedure / Unknown Non-blood Collection / Unknown 08/25/2024 3:59 PM EDT 08/25/2024 4:25 PM EDT John Bhanu Jones DE LAB URINE ORDERABLES Jennifer l Result Performing Organization Address [facility] de Phone Number [facility] [address] [place] [address], [place] [phone] * [place] Abdomen Limited (08/25/2024 2:10 PM [...] Signed Date: 08/25/2024 14:49 ET Workstation ID: [id number] Transcribed By: Self Edit Transcribed Date: 08/25/2024 [...] Signed Date: 08/25/2024 14:49 ET Workstation ID: [id number] Transcribed By: Self Edit Transcribed Date: 08/25/2024 [...] bypass surgery. No evidence of bowel obstruction. Telejaxon PARKER ([id number]) -------- FINAL REPORT -------- Dictated By: Jessy Bob Dictated Date: 08/25/2024 13:11 ET Assigned Physician: Jessy Bob Reviewed and Electronically Signed By: Jessy Bob Signed Date: 08/25/2024 13:29 ET Workstation ID: [id number] Transcribed By: Self Edit Transcribed Date: 08/25/2024 13:11 ET Narrative 08/25/2024 1:29 PM EDT History: Abdominal pain, nausea, vomiting and hematemesis. Prior gastric surgery. End-stage renal disease on hemodialysis. Comparison: 06/30/[address] Technique: Helical volumetric imaging of the abdomen and pelvis was performed following oral contrast and during the uneventful intravenous administration of 90 cc Isovue-370. DLP: 480.35 mGy/cm GE Lightspeed VCT Iterative reconstruction technique Findings: The liver [...] of 90 cc Isovue-370. DLP: 480.35 mGy/cm Same Day Servespeshoply VCT Iterative reconstruction technique Findings: The liver [...] gastric bypass surgery. No evidenceof bowel obstruction. Telejaxon PARKER ([id number]) -------- FINAL REPORT -------- Dictated By: Jessy Bob Dictated Date: 08/25/2024 13:11 ET Assigned Physician: Jessy Bob Reviewed and Electronically Signed By: Jessy Bob Signed Date: 08/25/2024 13:29 ET Workstation ID: [id number] Transcribed By: Self Edit Transcribed Date: 08/25/2024 13:11 ET John PARKER IMG CT PROCEDURES Final R esult * ECG 12 lead (08/25/2024 9:43 AM EDT) [facility] Ventricular Rate ECG 84 BPM GEMUSE Atrial Rate 84 BPM GEMUSE P-R Interval 102 ms GEMUSE QRS Duration 78 ms GEMUSE Q-T Interval 394 ms GEMUSE QTc 465 ms GEMUSE P Wave [place] 25 degrees GEMUSE R [place] 22 degrees GEMUSE T [place] 52 degrees GEMUSE ECG Interpretation Sinus rhythm with short AL Otherwise normal ECG When compared with ECG of 01-JUL-2024 05:38, No significant change was found Confirmed by KATTY GRANT ([id number]) on 08/25/2024 10:37:08 AM GEMUSE 08/25/2024 9:43 AM EDT 08/25/2024 10:37 AM EDT us Vaibhav Ozuna MD ECG ORDERABLES Final Result GEMUSE * Troponin I high sensitivity (NOW and then in 1 hour) (08/25/2024 9:00 AM EDT) High Sensitivity Troponin I 6 <=54 ng/L LAB CHEMISTRY METHOD 08/25/2024 10:14 AM EDT [facility] Blood Venous blood specimen / Unknown Venipuncture / Unknown 08/25/2024 9:00 AM EDT 08/25/2024 9:41 AM EDT Narrative [facility] - 08/25/2024 10:14 AM EDT High levels of biotin in samples may falsely decrease hsTroponin values. Use caution when interpreting hsTroponin results in patients taking biotin who exhibit renal impairment (eGFR <60) or in patients taking more than 20 mg/day of biotin. us Vaibhav Ozuna MD LAB BLOOD ORDERABLES Final Re sult [facility] [address] [place] [address], * (ABNORMAL) CBC auto differential (08/25/2024 9:00 AM EDT) [facility] WBC 12.4(H) 4.8 - 10.8 K/mcL LAB HEMETOLOGY METHOD 08/25/2024 9:47 AM [facility] RBC 3.60(L) 3.80 - 4.80 M/mcL LAB HEMETOLOGY METHOD 08/[facility]24 [facility] Hemoglobin 11.2(L) 11.5 - 16.0 g/dL LAB HEMETOLOGY METHOD 08/25/2024 9:47 AM [facility] Hematocrit 34.4(L) 35.0 - 47.0 % LAB HEMETOLOGY METHOD 08/25/2024 9:47 AM [facility] MCV 95.6 79.0 - 98.0 FL LAB HEMETOLOGY METHOD 08/25/2024 9:47 AM [facility] MCH 31.1 27.0 - 32.0 pcg LAB HEMETOLOGY METHOD 08/25/2024 9:47 AM [facility] MCHC 32.6 32.0 - 37.0 g/dL LAB HEMETOLOGY METHOD 08/25/2024 9:47 AM [facility] RDW 15.4(H) 11.0 - 15.0 % LAB HEMETOLOGY METHOD 08/25/2024 9:47 AM [facility] Platelets 321 130 - 400 K/mcL LAB HEMETOLOGY METHOD 08/25/2024 9:47 AM [facility] MPV 10.3 7.0 - 11.0 FL LAB HEMETOLOGY METHOD 08/25/2024 9:47 AM [facility] NRBC 0.0 <1.0 % LAB HEMETOLOGY METHOD 08/25/2024 9:47 AM [facility] NRBC Absolute 0.00 <0.10 K/mcL LAB HEMETOLOGY METHOD 08/25/2024 9:47 AM [facility] Neutrophils Relative 84.3 % LAB HEMETOLOGY METHOD 08/25/2024 9:47 AM [facility] Lymphocytes Relative 8.7 % LAB HEMETOLOGY METHOD 08/25/2024 9:47 AM [facility] Monocytes Relative 4.8 % LAB HEMETOLOGY METHOD 08/25/2024 9:47 AM [facility] Eosinophils Relative 1.2 % LAB HEMETOLOGY METHOD 08/25/2024 9:47 AM [facility] Basophils Relative 0.6 % LAB HEMETOLOGY METHOD 08/25/2024 9:47 AM [facility] Immature Granulocytes Relative 0.4 % LAB HEMETOLOGY METHOD 08/25/2024 9:47 AM [facility] Neutrophils Absolute 10.40(H) 1.50 - 7.00 K/[facility] LAB HEMETOLOGY METHOD 08/25/2024 9:47 AM EDT [facility] Lymphocytes Absolute 1.08 1.00 - 5.00 K/[facility] LAB HEMETOLOGY METHOD 08/25/2024 9:47 AM EDT [facility] Monocytes Absolute 0.59 0.20 - 1.00 K/[facility] LAB HEMETOLOGY METHOD 08/25/2024 9:47 AM EDT [facility] Eosinophils Absolute 0.15 0.00 - 0.50 K/[facility] LAB HEMETOLOGY METHOD 08/25/2024 9:47 AM EDT [facility] Basophils Absolute 0.08 0.00 - 0.20 K/[facility] LAB HEMETOLOGY METHOD 08/25/2024 9:47 AM EDT [facility] Immature Granulocytes Absolute 0.05(H) 0.00 - 0.03 K/[facility] LAB HEMETOLOGY METHOD 08/25/2024 9:47 AM EDT [facility] Blood Venous blood specimen / Unknown Venipuncture / Unknown 08/25/2024 9:00 AM EDT 08/25/2024 9:41 AM EDT us Vaibhav Ozuna MD LAB BLOOD ORDERABLES Final Re sult [facility] [address] [place] [address], * Type and screen (08/25/2024 9:00 AM EDT) ABO Group O 08/25/2024 10:25 AM EDT [facility] Rh Type Positive 08/25/2024 10:25 AM EDT [facility] Antibody Screen Negative 08/25/2024 10:25 AM EDT [facility] Blood Venous blood specimen / Unknown Venipuncture / Unknown 08/25/2024 9:00 AM EDT 08/25/2024 9:41 AM EDT Vaibhav Ozuna MD LAB BLOOD BANK TEST ORDERABLE S Final Result Performing Organization Address [facility]/ZIP Co de Phone Number [facility] [address] [place] [address], [place] [phone] * Phosphorus (08/25/2024 9:00 AM EDT) Phosphorus 3.2 2.5 - 4.5 mg/dL LAB CHEMISTRY METHOD 08/25/2024 10:12 AM EDT [facility] Blood Venous blood specimen / Unknown Venipuncture / Unknown 08/25/2024 9:00 AM EDT 08/25/2024 9:41 AM EDT John PARKER LAB BLOOD ORDERABLES Jennifer l Result Performing Organization Address [facility] Co de Phone Number [facility] [address] [place] [address], * Magnesium (08/25/2024 9:00 AM EDT) Magnesium 2.1 1.9 - 2.6 mg/dL LAB CHEMISTRY METHOD 08/25/2024 10:12 AM EDT [facility] Blood Venous blood specimen / Unknown Venipuncture / Unknown 08/25/2024 9:00 AM EDT 08/25/2024 9:41 AM EDT John PARKER LAB BLOOD ORDERABLES Jennifer l Result Performing Organization Address [facility]/ZIP Co de Phone Number [facility] [address] [place] [address], [place] [phone] * (ABNORMAL) Lipase (08/25/2024 9:00 AM EDT) Pathologist [facility] Lipase 96(H) 13 - 75 unit/L LAB CHEMISTRY METHOD 08/25/2024 10:12 AM [facility] Blood Venous blood specimen / Unknown Venipuncture / Unknown 08/25/2024 9:00 AM EDT 08/25/2024 9:41 AM EDT us Vaibhav Ozuna MD LAB BLOOD ORDERABLES Final Re sult [facility] [address] [place] [address], [place] [phone] * (ABNORMAL) Comprehensive metabolic panel (08/25/2024 9:00 AM EDT) [facility] Sodium 135 133 - 145 mmol/L LAB CHEMISTRY METHOD 08/25/2024 10:13 AM [facility] Potassium 5.4 3.5 - 5.5 mmol/L LAB CHEMISTRY METHOD 08/25/2024 10:13 AM [facility] Chloride 100 96 - 110 mmol/L LAB CHEMISTRY METHOD 08/25/2024 10:13 AM [facility] CO2 29 21 - 32 mmol/L LAB CHEMISTRY METHOD 08/25/2024 10:13 AM [facility] Anion Gap 6 3 - 11 LAB CHEMISTRY METHOD 08/25/2024 10:13 AM [facility] Glucose 109(H) 70 - 100 mg/dL LAB CHEMISTRY METHOD 08/25/2024 10:13 AM [facility] BUN 22 5 - 25 mg/dL LAB CHEMISTRY METHOD 08/25/2024 10:13 AM [facility] Creatinine 5.00(H) 0.50 - 1.10 mg/dL LAB CHEMISTRY METHOD 08/25/2024 10:13 AM [facility] eGFR 10(L) >=60 mL/min/1. 73m2 LAB CHEMISTRY METHOD 08/25/2024 10:13 AM [facility] Comment:Calculation based on the Chronic Kidney Disease Epidemiology Collaboration (CKD-EPI) equation refit without adjustment for race. BUN/Creatinine Ratio 4.4 LAB CHEMISTRY METHOD 08/25/2024 10:13 AM [facility] Calcium 9.2 8.5 - 10.5 mg/dL LAB CHEMISTRY METHOD 08/25/2024 10:13 AM [facility] AST (SGOT) 20 10 - 42 unit/L LAB CHEMISTRY METHOD 08/25/2024 10:13 AM [facility] ALT (SGPT) 29 10 - 60 unit/L LAB CHEMISTRY METHOD 08/25/2024 10:13 AM [facility] Alkaline Phosphatase 216(H) 42 - 121 unit/L LAB CHEMISTRY METHOD 08/25/2024 10:13 AM [facility] Total Protein 6.2 6.0 - 8.0 g/dL LAB CHEMISTRY METHOD 08/25/2024 10:13 AM [facility] Albumin 3.2 3.2 - 5.0 g/dL LAB CHEMISTRY METHOD 08/25/2024 10:13 AM [facility] Total Bilirubin 0.3 0.0 - 1.4 mg/dL LAB CHEMISTRY METHOD 08/25/2024 10:13 AM [facility] Blood Venous blood specimen / Unknown Venipuncture / Unknown 08/25/2024 9:00 AM EDT 08/25/2024 9:41 AM EDT us Vaibhav Ozuna MD LAB BLOOD ORDERABLES Final Re sult [facility] [address] [place] [address], from Last 3 Months Insurance MEDICAID - [place] MEDICARE Advance Directives Documents on File Type Date Recorded Patient Svp Research & Ebusiness Operations Expl anation Health Care Decision (hx) 07/24/2023 [...] currently active code status orders. Care Teams Airframe Technical Officer Relationship Specialty Start Date End Date Sam Lynch MD [address] [place] [address] Dr [address] MAURICE Pickens PCP - General 10/25/22
--- OUTSIDE RECORDS SUMMARY | 2024-11-13 21:49 | XMS_ITS | Encounter Summary ---
Author Organization [facility] Address [address] [facility] [address] [place] [address] Phone Care Team Providers Care Book Binder Name Role Phone Rozina Nicole MD Primary Care Provider Reason for Visit * Reason Onset Date Comments Med Refill 11/23/2020 Encounter Details Date Type Department Care Team (Late st Contact Info) Description 11/23/2020 Refill [facility] [address] [facility] [address] [place] [phone] Nkechi Salvador, ALEX [address] [facility] [address] [place] [address] Social History Tobacco Use Types [...] on filedocumented in this encounter Care Teams Book Binder Relationship Specialty Start Date End Date Rozina Nicole MD [address] [place], [place] PCP - General 02/21/20 documented as of this encounter
--- OUTSIDE RECORDS SUMMARY | 2024-11-13 21:49 | XMS_ITS | Clinical Summary ---
Author Organization [facility] Address [address] [facility] [address] [place] [address] Phone Care Team Providers Care Tool And Die Assembler Name Role Phone Rozina Nicole MD Primary [...] file Insurance ACO ACO [employer] [place] [address] [address] ACO ACO [employer] [place] [id number] Care Teams Tool And Die Assembler Relationship Specialty Start Date End Date Rozina Nicole MD [address] [place] [address] PCP - General 06/26/18 Additional Source Comments The information contained in this document represents components of the legal health record. It is not the complete legal health record.[facility]
--- OUTSIDE RECORDS SUMMARY | 2024-11-13 21:49 | XMS_ITS | Encounter Summary ---
Author Organization [facility]. Address [address] [address] Phone Care Team Providers Care Data Quality Consultant Name Role Phone Rozina Nicole MD Primary Care Provider [phone] Encounter Details Date Type Department Care Team ([facility] st Contact Info) Description 11/05/2024 Treatment [facility]. [address] [phone] Yamileth Varghese MD [address] [phone] End stage renal disease; Dependence [...] consent obtained. This patient was personally seen [id number] for a basic visit as part of routine monthly dialysis care for end stage renal disease. Attending Surgery Center Administrator: YAMILETH VARGHESE Dialysis Location: [facility] Schedule: Shift: 1 ADEQUACY ASSESSMENT Kt/V, [...] dialysis documented in this encounter Care Teams Data Quality Consultant Relationship Specialty Start Date End Date Rozina Nicole MD [address] [place] [address] PCP - General 02/21/20 documented as of this encounter
--- OUTSIDE RECORDS SUMMARY | 2024-11-13 21:49 | XMS_ITS | Encounter Summary ---
Author Organization [facility]. Address [address] [address] Phone Care Team Providers Care Audio Production Engineer Name Role Phone Rozina Nicole MD Primary Care Provider [phone] Encounter Details Date Type Department Care Team ([facility] st Contact Info) Description 10/29/2024 Treatment [facility]. [address] [phone] Yamileth Varghese MD [address] [phone] End stage renal disease; Dependence [...] consent obtained. This patient was personally seen [id number] for a basic visit as part of routine monthly dialysis care for end stage renal disease. Attending Studio Hand: YAMILETH VARGHESE Dialysis Location: [facility] Schedule: Shift: 1 ADEQUACY ASSESSMENT Kt/V, [...] dialysis documented in this encounter Care Teams Audio Production Engineer Relationship Specialty Start Date End Date Rozina Nicole MD [address] [place] [address] PCP - General 02/21/20 documented as of this encounter
--- OUTSIDE RECORDS SUMMARY | 2024-11-13 21:49 | XMS_ITS | Clinical Summary ---
Author Organization [facility] Address [address] [place] [address] Care Team Providers Care Supervisor Fabrication Name Role Phone Rozina Nicole MD Primary Care Provider [phone] Jon Wang MD Unavailable [phone] Allergies No known active allergies Medications [facility] [address] [place] [phone] Enmanuel Fisher MD 10/13/2024 8:00 PM EDT - 10/13/2024 9:51 PM EDT [facility] Perioperative Surgical Services [address] [place] [phone] David Harrell MD LAPAROSCOPY DIAGNOSTIC, LYSIS OF ADHESIONS 10/11/2024 12:06 PM EDT Anesthesia Event [facility] Gastroenterology Division [address] [place] [phone] Irving Oliver DO Boucher, Sarah J, SANDY 10/11/2024 11:40 AM EDT - 10/11/2024 12:19 PM EDT [facility] Gastroenterology Division [address] [place] [phone] Kristopher Kramer MD ENDOSCOPY UPPER 10/11/2024 1:59 AM EDT - 10/19/2024 4:00 PM EDT Hospital Encounter [facility] [address] [place] [phone] Aniket Chand III, Roberta Gutiérrez MD Elajami, [...] Exposure: Past Tobacco Cessation:Counseling Given: Not Answered [facility] Utilities Answer Date Recorded In the past [...] any time in the past 12 [facility], were you homeless or living in a halfway (including now)? No 10/11/2024 Comments Unknown Sex [...] of4 resultswithin the time period is included. [facility] White Blood Cell Count 4.4 4.0 - 11.0 Thou/uL 10/18/2024 8:09 AM EDT [facility] Platelet Count 275 150 - 450 Thou/uL 10/18/2024 8:09 AM EDT [facility] Hemoglobin 8.2(L) 11.7 - 15.7 g/dL 10/18/2024 8:09 AM EDT [facility] Hematocrit 25.4(L) 35.0 - 47.0 % 10/18/2024 8:09 AM [facility] Red Blood Cell Count 2.74(L) 4.00 - 5.40 Mil/uL 10/18/2024 8:09 AM [facility] MCV 93 80 - 100 fL 10/18/2024 8:09 AM [facility] MCH 29.9 27.0 - 31.0 pg 10/18/2024 8:09 AM [facility] MCHC 32.3 30.0 - 36.0 g/dL 10/18/2024 8:09 AM [facility] RDW 17.2(H) 11.5 - 14.5 % 10/18/2024 8:09 AM [facility] MPV 9.0 7.5 - 12.5 fL 10/18/2024 8:09 AM [facility] Neutrophils Auto 55.0 % 10/19/19 8:09 AM [facility] Immature Granulocytes 0.5 % 10/18/2024 8:09 AM [facility] Lymphocytes Auto 29.9 % 10/19/19 8:09 AM [facility] Monocytes Auto 9.4 % 10/18/2024 8:09 AM [facility] Eosinophils Auto 4.3 % 10/19/19 8:09 AM [facility] Basophils Auto 0.9 % 10/18/2024 8:09 AM [facility] Abs Neutrophils Auto 2.41 2.00 - 7.50 Thou/uL 10/18/2024 8:09 AM [facility] Abs Immature Granulocytes 0.02 0.00 - 0.10 Thou/uL 10/18/2024 8:09 AM [facility] Abs Lymphocytes Auto 1.31(L) 1.50 - 4.50 Thou/uL 10/18/2024 8:09 AM [facility] Abs Monocytes Auto 0.41 0.20 - 1.50 Thou/uL 10/18/2024 8:09 AM [facility] Abs Eosinophils Auto 0.19 0.00 - 0.70 Thou/uL 10/18/2024 8:09 AM [facility] Abs Basophils Auto 0.04 0.00 - 0.20 Thou/uL 10/18/2024 8:09 AM [facility] Blood Blood specimen / Unknown 10/18/2024 7:19 AM EDT 10/18/2024 7:55 AM EDT Arina Amaya MD LAB BLOOD ORDERABLES Final Result [address] [address], [facility] [address] [place] [address] * (ABNORMAL) Basic Metabolic Panel (10/18/2024 7:19 AM EDT) Only the most recent of9 resultswithin the time period is included. Glucose 87 65 - 99 mg/dL 10/18/2024 8:29 AM [facility] Comment:Fasting: <100 mg/dL, Non-Fasting: <200 mg/dL (ADA 2004) Blood Urea Nitrogen (BUN) 13 8 - 21 mg/dL 10/18/2024 8:29 AM [facility] Creatinine 4.8(H) 0.4 - 1.1 mg/dL 10/18/2024 8:29 AM [facility] eGFR 10(L) >59 10/18/2024 8:29 AM [facility] Comment:CKD-EPI (2020) in mL /min/1.73 sq meters. Sodium 137 136 - 145 mmol/L 10/18/2024 8:29 AM [facility] Potassium 3.6 3.4 - 5.3 mmol/L 10/18/2024 8:29 AM [facility] Chloride 103 98 - 107 mmol/L 10/18/2024 8:29 AM [facility] CO2 26 22 - 33 mmol/L 10/18/2024 8:29 AM [facility] Anion Gap 8 7 - 17 10/18/2024 8:29 AM [facility] Calcium 8.9 8.7 - 10.5 mg/dL 10/18/2024 8:29 AM [facility] BUN/Creatinine Ratio 3(L) 10.0 - 25.0 Ratio 10/18/2024 8:29 AM [facility] Blood Blood specimen / Unknown 10/18/2024 7:19 AM EDT 10/18/2024 7:55 AM EDT Arina Amaya MD LAB BLOOD ORDERABLES Final Result [address] [address], [address] [address] * Transfuse RBC's: (10/15/2024 9:14 PM EDT) Arina Amaya MD BLOOD TRANSFUSION ORDERABL ES Final Result * Type and Screen (10/15/2024 2:19 PM EDT) Only the most recent of2 resultswithin the time period is included. ABO/Rh O POSITIVE 10/15/2024 4:38 PM EDT [facility] Antibody Screen NEGATIVE 10/15/2024 4:38 PM EDT [facility] Specimen Expiration 10/18/2024 10/15/2024 4:38 PM EDT [facility] Unit Number [id number] 10/15/2024 6:22 PM EDT [facility] Blood Component Type LR RBC CONTAINER 2 10/15/2024 6:22 PM EDT [facility] Unit Division 00 10/15/2024 6:22 PM EDT [facility] Unit Status ISSUED,FINAL 10/16/2024 12:08 AM EDT [facility] Transfusion Status OK TO TRANSFUSE 10/15/2024 6:22 PM EDT [facility] Crossmatch Result Electronically Compatible 10/15/2024 6:22 PM EDT [facility] Blood Blood specimen / Unknown 10/15/2024 2:19 PM EDT 10/15/2024 3:38 PM EDT Comment:Blood Arina Amaya MD BLOOD BANK TEST ORDERABLES Final Result HOSPITAL LAB See Below [address] [address] * Prepare RBC's:Prepare in: Units; Number of [...] of4 resultswithin the time period is included. [facility] White Blood Cell Count 4.1 4.0 - 11.0 Thou/uL 10/15/2024 8:55 AM [facility] Platelet Count 218 150 - 450 Thou/uL 10/15/2024 8:55 AM [facility] Hemoglobin 7.0(L) 11.7 - 15.7 g/dL 10/15/2024 8:55 AM [facility] Hematocrit 21.8(L) 35.0 - 47.0 % 10/15/2024 8:55 AM [facility] Red Blood Cell Count 2.25(L) 4.00 - 5.40 Mil/uL 10/15/2024 8:55 AM [facility] MCV 97 80 - 100 fL 10/15/2024 8:55 AM [facility] MCH 31.1(H) 27.0 - 31.0 pg 10/15/2024 8:55 AM [facility] MCHC 32.1 30.0 - 36.0 g/dL 10/15/2024 8:55 AM [facility] RDW 14.4 11.5 - 14.5 % 10/15/2024 8:55 AM [facility] MPV 9.2 7.5 - 12.5 fL 10/15/2024 8:55 AM [facility] Blood Blood specimen / Unknown 10/15/2024 7:57 AM EDT 10/15/2024 8:[address] Foss MD LAB BLOOD ORDERABLES Final Re sult Performing Organization Address [facility] [place] [address], [address] [address] * Phosphorus (10/15/2024 7:57 AM EDT) Only the most recent of2 resultswithin the time period is included. Phosphorus 3.8 2.7 - 4.5 mg/dL 10/15/2024 11:43 AM EDT [facility] 10/15/2024 7:57 AM EDT 10/15/2024 8:[address] Foss MD LAB BLOOD ORDERABLES Final Re sult Performing Organization Address [facility] [place] [address], [address] [address] * Magnesium (10/15/2024 7:57 AM EDT) Only the most recent of3 resultswithin the time period is included. Magnesium 1.8 1.6 - 2.7 mg/dL 10/15/2024 10:04 AM EDT [facility] Blood Blood specimen / Unknown 10/15/2024 7:57 AM EDT 10/15/2024 8:[address] Foss MD LAB BLOOD ORDERABLES Final Re sult Performing Organization Address City/[facility] [place] [address], [address] [address] * (ABNORMAL) TRANSFERRIN (10/14/2024 10:10 AM EDT) Transferrin 125(L) 200 - 360 mg/dL 10/14/2024 12:13 PM EDT [facility] Blood Blood specimen / Unknown 10/14/2024 10:10 AM EDT 10/14/2024 11:23 AM EDT us David Harrell MD LAB BLOOD ORDERABLES Final R esult Performing Organization Address City/[facility]/[place] [address], [address] [address] * PREALBUMIN (10/14/2024 10:10 AM EDT) Prealbumin 24 20 - 40 mg/dL 10/14/2024 12:13 PM EDT [facility] Blood Blood specimen / Unknown 10/14/2024 10:10 AM EDT 10/14/2024 11:23 AM EDT us David Harrell MD LAB BLOOD ORDERABLES Final R esult Performing Organization Address City/[facility] [place] [address], [address] [address] * (ABNORMAL) ALBUMIN (10/14/2024 10:10 AM EDT) Albumin 3.1(L) 3.5 - 5.0 g/dL 10/14/2024 12:13 PM EDT [facility] Blood Blood specimen / Unknown 10/14/2024 10:10 AM EDT 10/14/2024 11:23 AM EDT us David Harrell MD LAB BLOOD ORDERABLES Final R esult Performing Organization Address City/[facility] [place] [address], [address] [address] * Nicotine, Cotinine, Serum (10/14/2024 5:50 AM EDT) Nicotine <2 ng/mL 10/19/2024 9:54 AM EDT [facility] Comment: (NOTE) Reference Ranges(ng/mL): Non-Smoker Active Tobacco User < or = to 4 2-10 Cotinine <2 ng/mL 10/19/2024 9:54 AM EDT [employer] [place] Comment: (NOTE) Reference Ranges(ng/mL): Non-Smoker Active Tobacco User < or = to 8 16-145 This test was developed and its analytical performance characteristics have been determined by [employer] [place], [place]. It has not been cleared or approved by the U.S. Food and Drug Administration. This assay has been validated pursuant to the CLIA regulations and is used for clinical purposes. Blood Blood specimen / Unknown 10/14/2024 5:50 AM EDT 10/14/2024 6:22 AM EDT David Harrell MD LAB BLOOD ORDERABLES Final R esult [employer] [id number] [facility] [address] [place] [address] , [employer], [place] [address] [facility] [address] [address] [place], [place] * ANES INTUBATION (10/13/2024 8:59 PM EDT) Narrative Jon House CRNA - 10/13/2024 8:59 PM EDT Jon House CRNA 10/13/2024 8:59 PM Anesthesia Procedure Note - intubation Patient Name: Meliza Perry : 1970 Patient location: [place] Procedure diagnosis: Anesthesia Performed by: Resident/COMPUTER SCIENCE PROFESSOR Preanesthetic Checklist . Patient's pre-procedure mental status: [...] Screen Nonreactive Nonreactive 10/12/2024 11:17 AM EDT [facility] Blood Blood specimen / Unknown 10/11/2024 3:01 PM EDT 10/11/2024 4:41 PM EDT Efrain Campos MD LAB BLOOD ORDERABLES Final Result [facility] [address] [place] [address], [place] * Hepatitis B Virus (HBV) Core Antibody Total (10/11/2024 3:01 PM EDT) Hepatitis B Core Antibody Total Nonreactive Nonreactive 10/12/2024 11:17 AM EDT [facility] Blood Blood specimen / Unknown 10/11/2024 3:01 PM EDT 10/11/2024 4:41 PM EDT Efrain Campos MD LAB BLOOD ORDERABLES Final Result [facility] [address] [place] [address], [place] * Hepatitis B Virus (HBV) Surface Antibody (10/11/2024 3:01 PM EDT) Pathologist [facility] Hepatitis B Surface Antibody Reactive (Immune) Reactive (Immune) 10/12/2024 11:17 AM EDT [facility] Blood Blood specimen / Unknown 10/11/2024 3:01 PM EDT 10/11/2024 4:41 PM EDT Efrain Campos MD LAB BLOOD ORDERABLES Final Result [facility] [address] [place] [address], [place] * POCT Glucose, Fingerstick (10/11/2024 1:21 PM EDT) Only the most recent of2 resultswithin the time period is included. [facility] POC Glucose 86 65 - 99 mg/dL 10/11/2024 1:25 PM EDT Blood specimen / Unknown 10/11/2024 1:21 PM EDT 10/11/2024 1:25 PM EDT Aniket Knight Arters III, DO POINT OF CARE TEST ORDERA BLES Final Result Performing Organization Address City/[facility] Co de Phone Number HOSPITAL [...] - 1.9 mmol/L 10/11/2024 3:00 AM EDT [facility] Blood Blood specimen / Unknown 10/11/2024 2:25 AM EDT 10/11/2024 2:43 AM EDT Aniket Chand III, DO LAB BLOOD ORDERABLES Jennifer l Result Performing Organization Address [facility] [place] [address], [place] [address] * ABO Confirmation (10/11/2024 2:24 AM EDT) ABO/Rh O POSITIVE 10/11/2024 3:26 AM EDT [facility] Blood Blood specimen / Unknown 10/11/2024 2:24 AM EDT 10/11/2024 2:51 AM EDT Aniket Chand III, BLOOD BANK TEST ORDERABLE S Final Result Performing Organization Address City/[facility] [place] [address], [place] [address] * (ABNORMAL) Hepatic function panel (10/11/2024 2:24 AM EDT) Alkaline Phosphatase 91 32 - 122 U/L 10/11/2024 3:03 AM EDT [facility] Aspartate Aminotrans (AST) 10 10 - 50 U/L 10/11/2024 3:03 AM EDT [facility] Alanine Aminotrans (ALT) 5(L) 10 - 50 U/L 10/11/2024 3:13 AM EDT [facility] Bilirubin, Total 0.3 0.2 - 1.0 mg/dL 10/11/2024 3:03 AM EDT [facility] Protein, Total 4.6(L) 6.3 - 8.3 g/dL 10/11/2024 3:03 AM EDT [facility] Albumin 2.7(L) 3.5 - 5.0 g/dL 10/11/2024 3:03 AM EDT [facility] Bilirubin, Direct 0.1 0 - 0.2 mg/dL 10/11/2024 3:03 AM EDT [facility] Globulin 1.9 1.5 - 3.9 g/dL 10/11/2024 3:03 AM EDT [facility] Albumin/Globulin Ratio 1.4 1.0 - 3.0 Ratio 10/11/2024 3:03 AM EDT [facility] Blood Blood specimen / Unknown 10/11/2024 2:24 AM EDT 10/11/2024 2:44 AM EDT us Aniket Chand III, DO LAB BLOOD ORDERABLES Jennifer alarcon Result [address] [address], [address] [address] from Last 3 Months Insurance [facility] MEDICARE PART A & B [facility] MEDICARE PART A & B [facility] MEDICARE PART A & B Advance Directives * Full Code (Latest Code Status on File) Date Activated Date Inactivated Comments 10/11/2024 5:25 AM Care Teams Supervisor Fabrication Relationship Specialty Start Date End Date Rozina Nicole MD [address] [place] [address] PCP - General Family Medicine 10/11/24 Jon Wang MD [address] [facility] [address] [place] [address] Physician Internal Medicine 10/11/24
--- OUTSIDE RECORDS SUMMARY | 2024-11-13 21:49 | XMS_ITS | Clinical Summary ---
Author Organization [facility] Address [address] [place] [address] [place] [address] Phone Care Team Providers Care Glass Presser Name Role Phone Rozina Nicole MD Primary Care Provider [phone] Allergies Active Allergy Reactions Criticality Noted Date [...] ureter 05/02/2020 05/02/2020 Hypertensive heart disease w [facility] heart failure 05/02/2020 09/07/2020 Encounters Date Type Department Care Team Description 11/05/2024 Treatment [facility] [address] [phone] Jon Wang MD End stage renal disease; Dependence on renal dialysis 10/29/2024 Treatment [facility] [address] [facility] [address] [place] [phone] Jon Wang MD End stage renal disease; Dependence on renal dialysis 10/25/2024 Treatment [facility] [address] [phone] Jon Wang MD End stage renal disease; Dependence on renal dialysis 10/08/2024 Treatment [facility] [address] [phone] Jon Wang MD End stage renal disease; Dependence on renal dialysis 10/08/2024 Orders Only [facility] [address] [phone] Jon Wang MD 09/27/2024 Treatment [facility] [address] [phone] Jon Wang MD End stage renal disease; Dependence on renal dialysis 09/20/2024 Treatment [facility] [address] [phone] Jon Wang MD End stage renal disease; Dependence on renal dialysis 09/13/2024 Treatment [facility] [address] [phone] Jon Wang MD End stage renal disease; Dependence on renal dialysis 09/10/2024 Treatment [facility] [address] [phone] Jon Wang MD End stage renal disease; Dependence on renal dialysis 09/10/2024 Treatment [facility] [address] [facility] [address] [place] [phone] Jon Wang MD End stage renal disease; Dependence on renal dialysis 09/06/2024 Treatment [facility] [address] [phone] Jon Wang MD End stage renal disease; Dependence on renal dialysis 09/03/2024 Treatment [facility] [address] [phone] Jon Wang MD End stage renal disease; Dependence on renal dialysis 08/27/2024 Treatment [facility] [address] [phone] Jon Wang MD End stage renal disease; Dependence on renal dialysis 08/16/2024 Treatment [facility] [address] [phone] Jon Wang MD End stage renal disease; [...] Date/Time Associated Diagnosis Comments HEMOGLOBIN A1C Routine 11/10/2024 3:00 AM EDT TRANSFERRIN SATURATION Routine 3:00 AM EDT PROTEIN, TOTAL, SERUM Routine 11/10/2024 3:00 AM EDT HEPATITIS B SURFACE ANTIGEN W/REFL CONFIRM Routine 11/10/2024 3:00 AM EDT MAGNESIUM Routine 11/10/2024 3:00 AM EDT ELECTROLYTE PANEL Routine 11/10/2024 3:0 0 AM EDT LIPID PANEL Routine 11/10/2024 3:00 AM EDT LIH (HC) Routine 11/10/2024 3:00 AM EDT LACTATE DEHYDROGENASE Routine 11/10/2024 3:00 AM EDT CREATININE, SERUM Routine 11/10/2024 3:0 0 AM EDT GLUCOSE, RANDOM Routine 11/10/2024 3:00 AM EDT BUN/CREATININE RATIO Routine 11/10/2024 3:00 AM EDT ALT Routine 11/10/2024 3:00 AM EDT AST Routine 11/10/2024 3:00 AM EDT BILIRUBIN, TOTAL Routine 11/10/2024 3:00 AM EDT CALCIUM PHOSPHORUS PRODUCT, ADJUSTED (HC) Routine 11/10/2024 3:00 AM EDT ALKALINE PHOSPHATASE Routine 11/10/2024 3:00 AM EDT PTH, INTACT Routine 11/10/2024 3:00 AM EDT FERRITIN Routine 11/10/2024 3:00 AM EDT KT/V NATURAL LOG, URR (HC) Routine 11/10/2024 3:00 AM EDT CBC AND DIFFERENTIAL Routine 11/10/2024 3:00 AM EDT LIH (HC) Routine 11/05/2024 3:00 AM EDT POTASSIUM Routine 11/05/2024 3:00 AM EDT LIH (HC) Routine 11/03/2024 3:00 AM EDT POTASSIUM Routine [...] from Last 3 Months Results * LIH (11/10/2024 3:00 AM EDT) Only the most recent of15 resultswithin the time period is included. Lipemia Normal Normal [facility] Icterus Normal Normal [facility] Hemolysis Normal Normal [facility] 11/10/2024 3:00 AM EDT 11/11/2024 1:31 PM EDT us Jon Wang MD LAB [id number] SOLICITED RESULTS Final Result [facility] [address] [place] [address] * (ABNORMAL) Kt/V Natural Log, URR (11/10/2024 3:00 AM EDT) Only the most recent of10 resultswithin the time period is included. Treatment Time 194 min [facility] Pre-Weight, lb 63.4 kg [facility] Post-Weight, lb 62.1 kg [facility] Ultrafiltration Rate 6 <=13 mL/kg/hr [facility] Comment: Recommend achieving Ultrafiltration Rate (UFR) <=10 mL/kg/hr References: Terrell GARCIA et al. Kidney Int. 2010; 79(2):250-257 BUN 39(H) 7 - 25 mg/dL [facility] BUN Post Dialysis 14 7 - 25 mg/dL [facility] UREA REDUCTION RATIO (%) 64(L) >=65 % [facility] Kt/V Natural Log 1.16(L) >=1.2 [facility] 11/10/2024 3:00 AM EDT 11/11/2024 1:31 PM EDT Jon Wang MD LAB [id number] SOLICITED RESULTS Final Result Performing Organization Address [facility] de Phone Number [facility] [address] [place] [address] * (ABNORMAL) Calcium Phosphorus Product, Adjusted (11/10/2024 3:00 AM EDT) Only the most recent of4 resultswithin the time period is included. Albumin 3.5(L) 3.6 - 5.4 g/dL [facility] Calcium 8.5(L) 8.6 - 10.3 mg/dL [facility] Phosphorus, Serum 3.6 2.5 - 5.0 mg/dL [facility] Ca*PO4 30.6 <55.0 mg2/dL2 [facility] Calcium, Adjusted Total 8.9 8.6 - 10.3 mg/dL [facility] CA*PO4 CORRCTD 32.0 <55.0 mg2/dL2 [facility] 11/10/2024 3:00 AM EDT 11/11/2024 1:31 PM EDT Jon Wang MD LAB [id number] SOLICITED RESULTS Final Result Performing Organization Address [facility] de Phone Number [facility] [address] [place] [address] * Hepatitis B Surface Ag w/Reflex Confirmation (11/10/2024 3:00 AM EDT) Only the most recent of4 resultswithin the time period is included. Hep B Surface Antigen Negative Negative [facility] 11/10/2024 3:00 AM EDT 11/11/2024 1:31 PM EDT Jon Wang MD LAB BLOOD ORDERABLES Final Re sult Performing Organization Address [facility] de Phone Number [facility] [address] [place] [address] * BUN/CREATININE RATIO (11/10/2024 3:00 AM EDT) Only the most recent of4 resultswithin the time period is included. [facility] BUN/Creatinine Ratio 8.1 <=23.0 [facility] 11/10/2024 3:00 AM EDT 11/11/2024 1:31 PM EDT Jon Wang MD LAB [id number] SOLICITED RESULTS Final Result Performing Organization Address [facility] de Phone Number [facility] [address] [place] [address] * (ABNORMAL) TSAT (11/10/2024 3:00 AM EDT) Only the most recent of4 resultswithin the time period is included. [facility] Iron 54 50 - 170 ug/dL [facility] Transferrin 118(L) 250 - 380 mg/dL [facility] TIBC 165(L) 211 - 406 ug/dL [facility] Iron Saturation (TSat) 33 22 - 52 % [facility] 11/10/2024 3:00 AM EDT 11/11/2024 1:31 PM EDT Jon Wang MD LAB BLOOD ORDERABLES Final Re sult Performing Organization Address [facility] de Phone Number [facility] [address] [place] [address] * (ABNORMAL) CBC and Differential (11/10/2024 3:00 AM EDT) Only the most recent of4 resultswithin the time period is included. [facility] DIFFERENTIAL MANUAL, 2 Not Indicated [facility] White Blood Cells 4.0 4.0 - 10.0 K/uL [facility] RBC 2.35(L) 3.93 - 5.22 M/uL [facility] Hgb 7.1(L) 11.2 - 15.7 g/dL [facility] Hemoglobin x 3 21.3(L) 33.6 - 47.1 g/dL [facility] Hematocrit 22.2(L) 34.1 - 44.9 % [facility] MCV 94.5 79.4 - 94.8 fL [facility] MCH 30.2 25.6 - 32.2 pg [facility] MCHC 32.0(L) 32.2 - 35.5 g/dL [facility] RDW 15.8(H) 11.7 - 14.4 % [facility] Platelets 298 182 - 369 K/uL [facility] MPV 10.3 9.2 - 12.8 fL [facility] Neutrophils Relative 62.1 34.0 - 71.1 % [facility] Lymphocytes Relative 27.8 19.3 - 51.7 % [facility] Monocytes 4.3(L) 4.7 - 12.5 % [facility] Eosinophils Relative 4.3 0.7 - 5.8 % [facility] Basophils Relative 1.0 0.1 - 1.2 % [facility] Immature Granulocytes 0.5 0.0 - 1.0 % [facility] 11/10/2024 3:00 AM EDT 11/11/2024 1:39 PM EDT Jon Wang MD LAB BLOOD ORDERABLES Final Re sult Performing Organization Address [facility] Co de Phone Number [facility] [address] [place] [address] * ALT (11/10/2024 3:00 AM EDT) Only the most recent of4 resultswithin the time period is included. ALT (SGPT) 11 10 - 49 U/L [facility] 11/10/2024 3:00 AM EDT 11/11/2024 1:31 PM EDT Jon Wang MD LAB BLOOD ORDERABLES Final Re sult Performing Organization Address [facility] Co de Phone Number [facility] [address] [place] [address] * AST (11/10/2024 3:00 AM EDT) Only the most recent of4 resultswithin the time period is included. AST (SGOT) 12 <34 U/L [facility] 11/10/2024 3:00 AM EDT 11/11/2024 1:31 PM EDT Jon Wang MD LAB BLOOD ORDERABLES Final Re sult Performing Organization Address [facility] de Phone Number [facility] [address] [place] [address] * (ABNORMAL) Protein, total (11/10/2024 3:00 AM EDT) Only the most recent of4 resultswithin the time period is included. Total Protein 5.7(L) 6.4 - 8.9 g/dL [facility] 11/10/2024 3:00 AM EDT 11/11/2024 1:31 PM EDT Jon Wang MD LAB BLOOD ORDERABLES Final Re sult Performing Organization Address [facility] de Phone Number [facility] [address] [place] [address] * (ABNORMAL) Alkaline phosphatase (11/10/2024 3:00 AM EDT) Only the most recent of4 resultswithin the time period is included. Alkaline Phosphatase 120(H) 46 - 116 U/L [facility] 11/10/2024 3:00 AM EDT 11/11/2024 1:31 PM EDT Jon Wang MD LAB BLOOD ORDERABLES Final Re sult Performing Organization Address [facility] de Phone Number [facility] [address] [place] [address] * (ABNORMAL) PTH, Intact (11/10/2024 3:00 AM EDT) Only the most recent of2 resultswithin the time period is included. PTH, Intact 1,236(H) 160 - 721 pg/mL [facility] Comment: Suggested (KDIGO) ESRD maintenance range is two to nine times the upper normal limit (80.1 pg/mL) for the laboratory. 11/10/2024 3:00 AM EDT 11/11/2024 1:31 PM EDT us Jon Wang MD LAB BLOOD ORDERABLES Final Re sult Performing Organization Address [facility] de Phone Number [facility] [address] [place] [address] * Magnesium (11/10/2024 3:00 AM EDT) Only the most recent of4 resultswithin the time period is included. Pathologist [facility] Magnesium 2.0 1.9 - 2.7 mg/dL [facility] 11/10/2024 3:00 AM EDT 11/11/2024 1:31 PM EDT us Jon Wang MD LAB BLOOD ORDERABLES Final Re sult Performing Organization Address [facility] de Phone Number [facility] [address] [place] [address] * Lactate dehydrogenase (11/10/2024 3:00 AM EDT) Only the most recent of4 resultswithin the time period is included. Pathologist [facility] LDH 166 120 - 246 U/L [facility] 11/10/2024 3:00 AM EDT 11/11/2024 1:31 PM EDT Jon Wang MD LAB BLOOD ORDERABLES Final Re sult Performing Organization Address [facility] de Phone Number [facility] [address] [place] [address] * Hemoglobin A1c (11/10/2024 3:00 AM EDT) Only the most recent of2 resultswithin the time period is included. Hemoglobin A1C 4.2 <5.7 % [facility] Comment: Methodology: Ion-exchange high-performance liquid chromatography (HPLC) Normal: <5.7% Prediabetes: 5.7-6.4% Diabetes: >6.4% Diabetic Glucose Control Evaluation: Therapeutic action suggested at >8.0% ADA recommends a glycemic goal of <7.0% 11/10/2024 3:00 AM EDT 11/11/2024 1:39 PM EDT Jon Wang MD LAB BLOOD ORDERABLES Final Re sult Performing Organization Address [facility] Co de Phone Number [facility] [address] [place] [address] * (ABNORMAL) Glucose, random (11/10/2024 3:00 AM EDT) Only the most recent of4 resultswithin the time period is included. Glucose 103(H) 70 - 99 mg/dL [facility] Comment: ADA guidelines outline the following fasting glucose ranges: Normal: <100 Prediabetes: 100-125 Diabetes: >125 11/10/2024 3:00 AM EDT 11/11/2024 1:31 PM EDT Jon Wang MD LAB BLOOD ORDERABLES Final Re sult Performing Organization Address [facility] de Phone Number [facility] [address] [place] [address] * (ABNORMAL) Ferritin (11/10/2024 3:00 AM EDT) Only the most recent of4 resultswithin the time period is included. Ferritin 599(H) 10 - 291 ng/mL [facility] 11/10/2024 3:00 AM EDT 11/11/2024 1:31 PM EDT Jon Wang MD LAB BLOOD ORDERABLES Final Re sult Performing Organization Address [facility] de Phone Number [facility] [address] [place] [address] * (ABNORMAL) Creatinine, serum (11/10/2024 3:00 AM EDT) Only the most recent of4 resultswithin the time period is included. Creatinine 4.82(H) 0.55 - 1.02 mg/dL [facility] 11/10/2024 3:00 AM EDT 11/11/2024 1:31 PM EDT Jon Wang MD LAB BLOOD ORDERABLES Final Re sult Performing Organization Address [facility] de Phone Number [facility] [address] [place] [address] * (ABNORMAL) Bilirubin, total (11/10/2024 3:00 AM EDT) Only the most recent of4 resultswithin the time period is included. Total Bilirubin <0.2(L) 0.3 - 1.2 mg/dL [facility] 11/10/2024 3:00 AM EDT 11/11/2024 1:31 PM EDT Jon Wang MD LAB BLOOD ORDERABLES Final Re sult Performing Organization Address [facility] de Phone Number [facility] [address] [place] [address] * (ABNORMAL) Lipid panel (11/10/2024 3:00 AM EDT) Only the most recent of2 resultswithin the time period is included. Cholesterol 164 mg/dL [facility] Comment: Optimal: <200 Borderline: 200-239 High Risk: >239 Triglycerides 99 mg/dL [facility] Comment: Optimal: <150 Borderline: 150-200 High Risk: >200 HDL 58(L) mg/dL [facility] Comment: Optimal: >59 Borderline: 40-59 High Risk: <40 LDL-Calc 86 mg/dL [facility] Comment: Optimal: <100 Borderline: 100-159 High Risk: >159 VLDL Cholesterol Art 20 mg/dL [facility] Comment: Optimal: <30 Borderline: 30-40 High Risk: >40 Chol/HDL Ratio 2.8 [facility] Comment: Optimal: <3.3 High Risk: >6.2 11/10/2024 3:00 AM EDT 11/11/2024 1:31 PM EDT Jon Wang MD LAB BLOOD ORDERABLES Final Re sult Performing Organization Address [facility] de Phone Number [facility] [address] [place] [address] * Electrolyte panel (11/10/2024 3:00 AM EDT) Only the most recent of4 resultswithin the time period is included. Sodium 136 136 - 145 mEq/L [facility] Potassium 4.3 3.4 - 5.0 mEq/L [facility] Chloride 101 98 - 107 mEq/L [facility] Bicarbonate (CO2) 23 21 - 31 mEq/L [facility] Anion Gap 12 3 - 14 mEq/L [facility] 11/10/2024 3:00 AM EDT 11/11/2024 1:31 PM EDT Jon Wang MD LAB BLOOD ORDERABLES Final Re sult Performing Organization Address [facility] de Phone Number [facility] [address] [place] [address] * Potassium (11/05/2024 3:00 AM EDT) Only the most recent of3 resultswithin the time period is included. Potassium 4.9 3.4 - 5.0 mEq/L [facility] 11/05/2024 3:00 AM EDT 11/06/2024 1:40 PM EDT Jon Wang MD LAB BLOOD ORDERABLES Final Re sult Performing Organization Address [facility] de Phone Number [facility] [address] [place] [address] * (ABNORMAL) Hemoglobin and hematocrit (10/29/2024 3:00 AM EDT) Only the most recent of3 resultswithin the time period is included. Hgb 9.4(L) 11.2 - 15.7 g/dL [facility] Hematocrit 30.6(L) 34.1 - 44.9 % [facility] Hemoglobin x 3 28.2(L) 33.6 - 47.1 g/dL [facility] 10/29/2024 3:00 AM EDT 10/30/2024 12:54 PM EDT Jon Wang MD LAB BLOOD ORDERABLES Final Re sult Performing Organization Address [facility] Co de Phone Number [facility] [address] [place] [address] * (ABNORMAL) Hemoglobin (10/08/2024 3:00 AM EDT) Only the most recent of2 resultswithin the time period is included. Hgb 7.9(L) 11.2 - 15.7 g/dL [facility] Hemoglobin x 3 23.7(L) 33.6 - 47.1 g/dL [facility] 10/08/2024 3:00 AM EDT 10/09/2024 2:04 PM EDT Jon Wang MD LAB BLOOD ORDERABLES Final Re sult Performing Organization Address [facility] de Phone Number [facility] [address] [place] [address] * Phosphorus (10/04/2024 3:00 AM EDT) Only the most recent of2 resultswithin the time period is included. Phosphorus, Serum 3.2 2.5 - 5.0 mg/dL [facility] 10/04/2024 3:00 AM EDT 10/05/2024 11:59 AM EDT Jon Wang MD LAB BLOOD ORDERABLES Final Re sult Performing Organization Address [facility] Co de Phone Number [facility] [address] [place] [address] * Confirmation Test HCV (09/06/2024 3:00 AM EDT) Hep C Ab Confirmation Not needed [facility] 09/06/2024 3:00 AM EDT 09/07/2024 2:14 PM EDT Jon Wang MD LAB BLOOD ORDERABLES Final Re sult [facility] [address] [place] [address] * HEPATITIS C ABS W/REFLEX RNA DETECTR (09/06/2024 3:00 AM EDT) Hep C Virus Ab Non-Reacti ve Non-Reacti ve [facility] 09/06/2024 3:00 AM EDT 09/07/2024 2:15 PM EDT Jon Wang MD LAB [id number] SOLICITED RESULTS Final Result Performing Organization Address [facility] Co de Phone Number [facility] [address] [place] [address] from Last 3 Months Insurance Medicare [place] Care Teams Glass Presser Relationship Specialty Start Date End Date Rozina Nicole MD [address] [place], [place] PCP - General 02/21/20
--- NOTE | 2024-11-13 21:56 | PC.NURSE ---
pt biba, called as she has had abd pain for 3 days, increase in urine output, no fever that shes noted, HR elevated, no temp, all other v/s WNL. Pt tearful. pt states she got he pneumonia vaccine yesterday as well. fistula on L upper arm, dialysis 3 days weekly (M,W,F), last done yesterday.
[2024-11-13 22:12] LABS: MANUAL DIFF FLAG NO
[2024-11-13 22:14] LABS: Hematocrit 22.4 % (37.0-47.0); Hemoglobin 7.5 g/dl (12.0-16.0); Imm Gran Abs Auto 0.03 X10*3/uL (0.00-0.03); Imm Gran Pct Auto 0.4 % (0.0-0.4); Lymphocytes Absolute Auto 1.4 X10*3/uL (1.2-4.9); Mean Corpuscular HGB Conc 33.5 g/dl (31.0-35.0); Mean Corpuscular Hemoglobin 31.1 pg (27.0-33.0); Mean Corpuscular Volume 92.9 fL (80.0-98.0); NRBC Abs Auto 0.000 X10*3/uL (0.0-0.012); NRBC Pct Auto 0.0 /100WBC (0.0-0.2); Platelet Count 351 X10*3/uL (160-400); Red Blood Count 2.41 X10*6/uL (4.20-5.50); White Blood Count 6.9 X10*3/uL (4.8-10.8)
--- NOTE | 2024-11-13 22:27 | ECG_ITS ---
Test Reason : ABDOMINAL PAIN Blood Pressure : */* mmHG Vent. Rate : 107 BPM Atrial Rate : 107 BPM P-R Int : 164 ms QRS Dur : 86 ms QT Int : 370 ms P-R-T Axes : 53 43 57 degrees QTcB Int : 493 ms Sinus tachycardia Nonspecific ST abnormality Abnormal ECG When compared with ECG of 20-Sep-2024 17:01, No significant change was found Referred By: Gris Aguirre Electronically Signed By: MINO ROWE
--- NOTE | 2024-11-13 22:29 | ED.ABDPAIN ---
HPI - Abdominal Pain General Chief Complaint: Abdominal Pain Stated Complaint: ab pain radiating to back, ab surgery dialysis pt. Time Seen by Provider: 11/13/24 22:20 Source: patient and EMS Mode of arrival: EMS Limitations: other History of Present Illness ED Provider: Dr. Gris Aguirre HPI narrative: Patient comes to the emergency room complaining of abdominal pain, radiating from the abdomen to the back. Patient multiple episodes of vomiting. Patient also states that she has been urinating more than usual. Patient denies fever chills. A proximally 5 weeks ago, patient had a GI bleed, needed blood transfusion and was transferred to [place]. Patient states that about 3 weeks ago, patient had to go back for a revision. Patient states that she is compliant with her dialysis. Patient reports that yesterday she saw blood in the stool. Related Data Home Medications ?Medication ?Instructions ?Recorded ?Confirmed ferrous sulfate 325 mg (65 mg 325 mg PO DAILY 05/11/20 09/28/24 iron) tablet,delayed release cyanocobalamin (vitamin B-12) 1,000 mcg PO DAILY 10/17/20 09/28/24 1,000 mcg tablet midodrine 5 mg tablet 5 mg PO DAILY PRN Hypotension 03/25/23 09/28/24 acetaminophen 500 mg capsule 1,000 mg PO Q8H PRN Pain 08/10/23 09/28/24 (Mapap (acetaminophen)) fluticasone propionate 50 1 spray intranasal DAILY PRN 08/10/23 09/28/24 mcg/actuation nasal Allergy Symptoms spray,suspension opcdcoft-parmxgap-ixxt 45 mg-folic 1 cap PO DAILY 08/10/23 09/28/24 acid 800 mcg-vit K 120 mcg capsule (Bariatric Multivitamins) parenteral amino acid 15% no.5 15 0.5 ea IV MOWEFR@0900 08/10/23 09/28/24 % combination no.5 intravenous solution (Clinisol SF) zinc acetate 50 mg (zinc) capsule 100 mg PO DAILY 05/19/24 09/28/24 ergocalciferol (vitamin D2) 1,250 1,250 mcg PO PLEITEZ@0900 06/04/24 09/28/24 mcg (50,000 unit) capsule (Vitamin D2) meclizine 12.5 mg tablet 12.5 mg PO TID PRN Nausea And 06/04/24 09/28/24 Vomiting clotrimazole-betamethasone 1 1 appl topical DAILY PRN Rash 09/20/24 09/28/24 %-0.05 % topical cream Previous Rx's ?Medication ?Instructions ?Recorded thiamine HCl (vitamin B1) 100 mg 100 mg PO DAILY 90 days #90 tabs 09/27/23 tablet vitamin A 2,400 mcg capsule 2,400 mcg PO DAILY 90 days #90 caps 02/05/24 carvedilol 6.25 mg tablet 6.25 mg PO BID 90 days #180 tabs 04/28/24 citalopram 20 mg tablet 20 mg PO DAILY 90 days #90 tabs 09/08/24 melatonin 10 mg capsule 20 mg (2 x 10 mg) PO BEDTIME #90 09/20/24 caps sucralfate 100 mg/mL oral 1 g (10 mL) PO QIDACHS 28 days 09/24/24 suspension #1,000 mL oxycodone 5 mg tablet 5 mg PO Q8H PRN Pain, 09/26/24 Moderate(Pain Scale 4-6) #15 tabs pyridoxine (vitamin B6) 50 mg 50 mg PO DAILY 90 days #90 tabs 10/21/24 tablet gabapentin 400 mg capsule 400 mg PO BID 90 days #180 caps 11/10/24 omeprazole 40 mg capsule,delayed 40 mg PO BID 90 days #180 caps 11/10/24 release ondansetron 4 mg disintegrating 4 mg PO Q8H PRN nausea and 11/10/24 tablet vomiting #10 tabs Allergies Allergy/AdvReac Type Severity Reaction Status Date / Time ibuprofen Allergy Severe Unknown Verified 11/13/24 21:40 nifedipine Allergy Intermediate hives, leg Verified 11/13/24 21:40 edema Review of Systems Review of Systems Constitutional : No Weight loss, No Fever, No Chills, No Night Sweats, complaining of fatigue, generalized malaise ENT/Mouth : No Hearing loss, No Ear Pain, No Nasal Congestion, No Sinus Pain, No Hoarseness, No sore throat, No Rhinorrhea, No Swallowing Difficulty Eyes: No Eye Pain, No Swelling, No Redness, No Foreign Body, No Discharge, No Vision Changes Cardiovascular : No Chest Pain, No SOB, No Dyspnea on Exertion, No Orthopnea, No Edema, No Palpitations Respiratory : No Cough, No Sputum, No Wheezing, No Smoke Exposure, No Dyspnea Gastrointestinal : Patient complaining of abdominal pain, nausea, vomiting, reports blood in the stool yesterday Genitourinary : no irregular bleeding, No Dysuria, No Urinary Frequency, No Hematuria, No Urinary Incontinence, No Urgency, No Flank Pain, No Urinary Flow Changes, No Hesitancy Musculoskeletal : No joint pain, No Myalgias, No Joint Swelling Skin : No Skin Lesions, No rash Neuro : No Weakness, No Numbness, No Paresthesias, No Loss of Consciousness, No Dizziness, No Headache Psych : No Anxiety/Panic, No Depression, No SI/HI/AH/VH, No Social Issues, Heme/Lymph: No Bruising, No Bleeding,No Lymphadenopathy Endocrine : No Polyuria, No Polydipsia, No Temperature Intolerance PMFSH Past Medical History 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 Lumbar back pain with radiculopathy affecting left lower extremity Physical exam (~02/14/21) Peritoneal dialysis catheter in place Polyarthralgia Dyslipidemia Family history of ovarian cancer Abnormal mammogram of right breast Angina pectoris syndrome Chest pain Constipation Nephrosclerosis Renal interstitial fibrosis Obesity (BMI 30-39.9) Back pain GERD (gastroesophageal reflux disease) History of headache HTN (hypertension) Surgical History History of sleeve gastrectomy S/P arteriovenous (AV) graft placement Fistula Hx of colonoscopy Hx of hysterectomy Hx of tubal ligation History of endometrial ablation Family History Family History Father Asthma Mother Asthma Hypertension Ovarian cancer Maternal Grandfather Myocardial infarction Paternal Grandmother Stroke Social History Social History Household Members: Children Household Members Other:: 30 year old special needs son Housing: Apartment Are you a primary child care nurse to a significant other at home: No Do you presently have visiting nurse or other home services: Yes Alcohol intake: never Comment: low fall risk Patient Tobacco Use Status: Former Tobacco user Tobacco use type: Cigarette Cigarette Packs Per Day: 1 Cigarettes Per Day: 1 Years Smoked: 10+ Smoked in Last 30 Days: No e-Cigarette/Vaping Use: Never Used Second Hand Smoke Exposure: No Use of substances other than those prescribed or required for medical reasons: No Substance Use Type: Caffiene Advance Directives: Yes Advance Directives on File: Yes Advance Directives Date on File: 04/27/20 Patient : No service: No Current occupational status: employed Cognitive needs: No Hearing needs: No Vision needs: Yes (reading glasses) Physical Exam ED Exam Exam: Appearance: Alert. Oriented X3. Patient tearful, seems to be very uncomfortable, actively vomiting Eyes: Pupils equal, round and reactive to light. ENT: Pharynx normal. Neck: Normal inspection. Neck supple. No lymph nodes noted. No crepitus CVS: Normal heart rate and rhythm. Pulses normal. Normal S1 and S2 Respiratory: No respiratory distress. Breath sounds normal. No Wheezing. No rales Abdomen: Soft, discomfort to palpation in all quadrants, no rebound or guarding. Skin: Skin warm and dry. Patient her slightly pale skin color. Normal skin turgor. Extremities: No lower extremity edema. No Lacerations. No Rash Neuro: Oriented X 3. No motor deficit. No sensory deficit. Moving all extremities. No slurred speech. CN 2 through 12 grossly intact Psych: calm, cooperative, normal affect Vital Signs: BMI result Body Mass Index 28.3 Course Course Course Narrative: Patient is receiving IV morphine, Zofran. Pending vitals All of patient's labs pending Medical Decision Making Medical Decision Making MDM Narrative: My interpretation of labs: No significant acute abnormality on patient's hematology, patient has a baseline anemia, today 7.5 hemoglobin and hematocrit 22.4. Patient's chemistry shows a normal potassium, normal sodium, creatinine before 0.21, patient is due for dialysis on Friday. Patient's LFTs within normal limits. Patient is still produces urine, the Urinalysis negative for UTI, the gastric occult blood was heme negative, occult stool test heme negative CT scan shows small bowel dilation concerning for small bowel obstruction I discussed the patient with our hospitalist Dr. Morales, recommendations, hospitalist will consult I discussed the patient with Dr. Magana from General surgery, she will admit the patient. Patient agrees with plan Overall, patient feels better, still having some abdominal discomfort but no significant pain, some nausea but no longer vomiting. Differential Diagnosis Differential Diagnoses: The differential diagnosis associated with the presentation includes (Small-bowel obstruction, complication of gastric band, perforated ulcer) Admission/Observation Consideration of admission/observation: Escalation of care including admission/observation considered Consult Healthcare Provider Management of the patient was discussed with: Hospitalist and Metal Pain[employer] Lab Data MDM Lab Attestation statement: I reviewed the patient's lab results. 11/13/24 22:08 11/13/24 22:08 Labs: Lab Results 11/13/24 11/13/24 Range/Units 22:08 23:25 WBC 6.9 (4.8-10.8) X10*3/uL RBC 2.41 L (4.20-5.50) X10*6/uL Hgb 7.5 L (12.0-16.0) g/dl Hct 22.4 L (37.0-47.0) % MCV 92.9 (80.0-98.0) fL MCH 31.1 (27.0-33.0) pg MCHC 33.5 (31.0-35.0) g/dl RDW 15.9 (11.0-16.0) % Plt Count 351 D (160-400) X10*3/uL MPV 8.7 L (9.4-12.3) fL Immature Gran % (Auto) 0.4 (0.0-0.4) % Neut % (Auto) 70.1 (45-73) % Lymph % (Auto) 20.1 (20-40) % Pender % (Auto) 6.2 (2-11) % Eos % (Auto) 2.2 (0-4) % Baso % (Auto) 1.0 (0-2) % Lymph # (Auto) 1.4 (1.2-4.9) X10*3/uL Pender # (Auto) 0.4 (0.1-1.2) X10*3/uL Eos # (Auto) 0.2 (0.0-0.4) X10*3/uL Baso # (Auto) 0.1 (0.0-0.2) X10*3/uL Abs Immat Gran (auto) 0.03 (0.00-0.03) X10*3/uL Absolute Neuts (auto) 4.9 (2.0-8.3) x10*3/uL Absolute Nucleated RBC 0.000 (0.0-0.012) X10*3/uL Nucleated RBC % (auto) 0.0 (0.0-0.2) /100WBC Sodium 138 (135-145) mmol/L Potassium 3.9 D (3.3-5.1) mmol/L Chloride 98 (96-108) mmol/L Carbon Dioxide 29 (22-29) mmol/L Anion Gap 15 (12-20) BUN 32 H (9-16) mg/dL Creatinine 4.21 H* (0.5-1.4) mg/dL Estim Creat Clear Calc 14.7 Estimated GFR 11 Random Glucose 100 (60-115) mg/dL Calcium 9.4 (8.4-10.2) mg/dL Total Bilirubin 0.2 (0.0-1.0) mg/dL AST 20 (5-31) U/L ALT 6 (0-31) U/L Alkaline Phosphatase 114 (39-117) U/L Total Protein 6.0 L (6.5-8.0) g/dL Albumin 3.5 (3.5-5.0) g/dL Urine Color Yellow Urine Appearance Clear Urine pH >= 9.0 (5.0-9.0) Ur Specific [place] <= 1.005 (1.005-1.025) Urine Protein 100 (2+) H (Neg-Trace) mg/dL Urine Glucose (UA) Negative (Negative) mg/dL Urine Ketones Negative (Negative) mg/dL Urine Blood Trace H (Negative) Urine Nitrite Negative (Negative) Ur Leukocyte Esterase Negative (Negative) Urine RBC 3-5 H (0-2) /HPF Urine WBC 0-5 (0-5) /HPF Ur Squamous Epith Cells 6-10 (0-2) /HPF Urine Bacteria Trace (None Seen) Hyaline Casts 0-2 (0-2) /LPF Gastric Occult Blood NEGATIVE (NEG) Stool Occult Blood NEGATIVE (NEGATIVE) Blood Type O Positive Antibody Screen NEGATIVE Independent Interpretation I performed an independent interpretation of an: EKG and CT Scan Radiology Impression Discussion of test interpretation with radiology: I have reviewed the radiologist's reading. Radiologist Impression: Mild bibasilar atelectasis/pneumonitis, left worse than right. Lung scarring also redemonstrated. Postprocedural changes with now likely gastric bypass. Small bowel dilatation measures 3 cm distal to anastomosis concerning for small bowel obstruction in the left hemiabdomen. Also question transition point in the left lower quadrant. Appendicolith present without findings of acute appendicitis. Moderate stool burden present, including the cecum. Mild wall thickening of the large intestine is nonspecific, including the cecum. Gallbladder is distended with cholelithiasis by CT (209 of series 3). No new or worsening lymphadenopathy by noncontrast CT. Nonobstructing nephrolithiasis measures 3 mm in the left kidney. No obstructing stone in either kidney or either imaged ureter. Moderate wall thickening of the urinary bladder is nonspecific. Bilateral adrenal hyperplasia redemonstrated. Spleen approaches the upper limits of normal. Mild volume loss of the pancreas. Liver is unchanged by noncontrast imaging. Uterus is absent or obscured. No adnexal soft tissue mass by noncontrast CT. Degenerative changes include imaged hips, SI joints, and spine. Grade 1 anterolisthesis of the L4-L5. Stress phenomenon with partial lysis of the left L5 pars. Facet arthropathy is most pronounced in the lower lumbar spine. IMPRESSION: 1. Small bowel dilatation concerning for small bowel obstruction. 2. Nonobstructing nephrolithiasis of the left kidney. No hydronephrosis. External Record Review External record reviewed: Inpatient record Medications Administered Discontinued Medications Generic Name Dose Route Start Last Admin Trade Name Freq PRN Reason Stop Dose Admin Diazepam 2.5 mg 11/14/24 00:19 11/14/24 00:38 Diazepam 10 Mg/2 Ml Cartridge IVPUSH 11/14/24 00:20 2.5 mg STAT STA Administration Hydromorphone HCl 0.5 mg 11/14/24 00:19 11/14/24 00:38 Hydromorphone Hcl 0.5 Mg/0.5 Ml Syringe IVPUSH 11/14/24 00:20 0.5 mg ONCE ONE Administration Protocol Morphine Sulfate 2 mg 11/13/24 22:40 11/13/24 22:49 Morphine Sulfate 2 Mg/Ml Cartridge IVPUSH 11/13/24 22:41 2 mg ONCE ONE Administration Protocol Ondansetron HCl 4 mg 11/13/24 22:27 11/13/24 22:37 Ondansetron Hcl 4 Mg/2 Ml Vial IVPUSH 11/13/24 22:28 4 mg ONCE ONE Administration Prochlorperazine Edisylate 10 mg 11/14/24 00:20 11/14/24 00:38 Prochlorperazine Edisylate 10 Mg/2 Ml Vial IVPUSH 11/14/24 00:21 10 mg ONCE ONE Administration Critical Care Time Critical Care Time Critical Care Time: Yes Total Critical Care Time: 60 Attestation: I have personally provided critical care time. Time includes review of lab data, radiology results, discussion with consultants, and monitoring for potential decompensation. Intervention performed as documented. Discharge Plan Discharge Clinical Impression: Small bowel obstruction, Nausea & vomiting Patient Disposition: Admitted As Inpatient Print Language: [place] Islander
[2024-11-13 22:34] LABS: Alanine Aminotransferase 6 U/L (0-31); Albumin Level 3.5 g/dL (3.5-5.0); Alkaline Phosphatase 114 U/L (39-117); Anion Gap 15 (12-20); Aspartate Amino Transferase 20 U/L (5-31); Blood Urea Nitrogen 32 mg/dL (9-16); Calcium 9.4 mg/dL (8.4-10.2); Carbon Dioxide 29 mmol/L (22-29); Chloride 98 mmol/L (96-108); Creatinine Clr Calc Pharmacy 14.7; Estimated Glomerular Filt Rate 11; Potassium 3.9 mmol/L (3.3-5.1); Sodium 138 mmol/L (135-145); Total Protein 6.0 g/dL (6.5-8.0)
[2024-11-13 23:32] LABS: Appearance Urine Clear; Glucose Urine UA Negative (Negative); PH >= 9.0 (5.0-9.0); Specific Gravity - Urine <= 1.005 (1.005-1.025); UMIC TRIGGER UACC YES
[2024-11-13 23:33] LABS: OBS Int Ctl Valid YES; OBS1 NEGATIVE (NEGATIVE)
[2024-11-13 23:34] LABS: GASOB Int Neg Ctl Valid YES; GASOB Int Pos Ctl Valid YES; GASOB Lot 20542 10
[2024-11-14] VITALS (7 sets, daily range): BP systolic 102–149; BP diastolic 50–69; PULSE 87–95; RESP 16–18; TEMP 36.2–37.2; O2SAT 98–100; BMI 22.6
[2024-11-14] MEDS: diazePAM 10 MG/2 ML CARTRIDGE 2.5 MG IVPUSH (00:38)
--- NOTE | 2024-11-14 00:49 | PC.NURSE ---
pt taken to bathroom in wheelchair, pt medicated per MAR. Pt a lot more calm now, states having some pain relief.
--- NOTE | 2024-11-14 04:57 | PC.NURSE ---
returned call to pt daughter Jamia at [phone], gave update on pt being admitted, pain control and pt current status. Jamia asked that a provider call her just to discuss further details. Advised Dr Magana
--- NOTE | 2024-11-14 05:09 | P.CONHOSP_ITS ---
History of Present Illness Data of Consult Service Date: 11/14/24 Requesting physician: Irina Magana Primary Care Provider: Unknown Physician HPI Reason for consult: medical mgmt Patient is a 54-year-old female with past medical history end-stage renal disease on dialysis Mondays, Wednesdays and Fridays with left upper arm graft, hypertension, migraine aura, GI bleed secondary to gastric ulcer, esophagitis/GERD gastric sleeve with 2 revisions, hidradenitis, fibromyalgia, chronic back pain, MDD, anxiety was brought in by ambulance to the emergency department for complaints of worsening abdominal pain with nausea but no vomiting. Patient states the pain was radiating to her back. Patient also noted the urine output was increasing. Patient also thought she saw some blood in her stool yesterday. Patient was evaluated by the ED provider and patient was accepted by surgery for small bowel obstruction found on CT scan and admitted. Hospitalist was consulted for medical management. Most of patient's acute concerns are from her current GI problems with the recent hospitalization and transferred to [facility] 5 weeks ago for GI bleed. Patient required transfusion initially and then was transferred. Patient states she had to go back 3 weeks ago for revision. Current H&H of 7.5 and 22.4 and patient has not required transfusion so far since arrival to the ED. Urinalysis negative for UTI. Stool sample so far negative for occult. Patient is not currently on a transplant list because she can not tolerate 4 hours of dialysis 3 times a week. Patient currently doing 3 hours each treatment. Patient denies feeling suicidal or homicidal is not having any hallucinations. Patient expresses that she feels overwhelmed by everything she has gone through over the last month and a half. Review of Systems 2 Review of Systems: Patient currently experiencing nausea with the abdominal pain. Patient is not having any vomiting. Patient denies any bloody stool currently or hemoptysis. Patient denies any chest pain or shortness of breath at rest. Patient reports that she has a history of migraine and is worried that she will have 1. 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 Lumbar back pain with radiculopathy affecting left lower extremity Physical exam (~02/14/21) Peritoneal dialysis catheter in place Polyarthralgia Dyslipidemia Family history of ovarian cancer Abnormal mammogram of right breast Angina pectoris syndrome Chest pain Constipation Nephrosclerosis Renal interstitial fibrosis Obesity (BMI 30-39.9) Back pain GERD (gastroesophageal reflux disease) History of headache HTN (hypertension) Cognitive capacity: Currently alert and orientated x3 Functional capacity: independent ambulation Family History Father Asthma Mother Asthma Hypertension Ovarian cancer Maternal Grandfather Myocardial infarction Paternal Grandmother Stroke Surgical History History of sleeve gastrectomy S/P arteriovenous (AV) graft placement Fistula Hx of colonoscopy Hx of hysterectomy Hx of tubal ligation History of endometrial ablation Social History Household Members: Children Household Members Other:: 30 year old special needs son Housing: Apartment Are you a primary home care and home health aides teacher to a significant other at home: No Do you presently have visiting nurse or other home services: Yes Alcohol intake: never Comment: low fall risk Patient Tobacco Use Status: Former Tobacco user Tobacco use type: Cigarette Cigarette Packs Per Day: 1 Cigarettes Per Day: 1 Years Smoked: 10+ Smoked in Last 30 Days: No e-Cigarette/Vaping Use: Never Used Second Hand Smoke Exposure: No Use of substances other than those prescribed or required for medical reasons: No Substance Use Type: Caffiene Advance Directives: Yes Advance Directives on File: Yes Advance Directives Date on File: 04/27/20 Patient : No service: No Current occupational status: employed Cognitive needs: No Hearing needs: No Vision needs: Yes (reading glasses) Meds Allergies Allergy/AdvReac Type Severity Reaction Status Date / Time ibuprofen Allergy Severe Unknown Verified 11/13/24 21:40 nifedipine Allergy Intermediate hives, leg Verified 11/13/24 21:40 edema Active Medications: Current Medications Acetaminophen (Acetaminophen 325 Mg Tablet) 650 mg PO Q6H PRN PRN Reason: Pain, Mild 1-3,fever,headache Sodium Chloride (Ns) 1,000 mls @ 100 mls/hr IVCONT .Q10H [facility] Last Admin: 11/14/24 04:38 Dose: 100 mls/hr Melatonin (Melatonin 3 Mg Tablet) 6 mg PO BEDTIME PRN PRN Reason: Insomnia Ondansetron HCl (Ondansetron Hcl 4 Mg/2 Ml Vial) 4 mg IVPUSH Q8H PRN PRN Reason: Nausea and Vomiting Sodium Chloride (0.9 % Sodium Chloride Flush 3 Ml Syringe) 3 ml IVFLUSH QSHIFT [facility] Home Medications ?Medication ?Instructions ?Recorded ?Confirmed ?Last Taken ?Type ferrous sulfate 325 mg (65 mg 325 mg PO DAILY 05/11/20 09/28/24 09/16/24 History iron) tablet,delayed release cyanocobalamin (vitamin B-12) 1,000 mcg PO DAILY 10/1709/28/24 09/16/24 History 1,000 mcg tablet midodrine 5 mg tablet 5 mg PO DAILY PRN Hypotensio n 03/25/23 09/28/24 05/18/24 History acetaminophen 500 mg capsule 1,000 mg PO Q8H PRN Pain 08/10/23 09/28/24 09/16/24 History (Mapap (acetaminophen)) fluticasone propionate 50 1 spray intranasal DAILY PRN 08/10/23 09/28/24 05/18/24 History mcg/actuation nasal Allergy Symptoms spray,suspension ijkajcti-ymbkwibs-wtvd 45 mg-folic 1 cap PO DAILY 07/1309/28/24 09/16/24 History acid 800 mcg-vit K 120 mcg capsule (Bariatric Multivitamins) parenteral amino acid 15% no.5 15 0.5 ea IV MOWEFR@090 0 08/10/23 09/28/24 06/02/24 History % combination no.5 intravenous solution (Clinisol SF) zinc acetate 50 mg (zinc) capsule 100 mg PO DAILY 11/0409/28/24 09/16/24 History ergocalciferol (vitamin D2) 1,250 1,250 mcg PO PLEITEZ@0900 06/04/24 09/28/24 09/16/24 History mcg (50,000 unit) capsule (Vitamin D2) meclizine 12.5 mg tablet 12.5 mg PO TID PRN Nausea An d 06/04/24 09/28/24 06/04/24 History Vomiting clotrimazole-betamethasone 1 1 appl topical DAILY PRN Rash 09/20/24 09/28/24 Unknown History %-0.05 % topical cream Physical Exam 2 Vital Signs and Narrative: Vital Signs: Last Vital Signs Temp 98.5 F 11/14/24 04:18 Pulse 95 11/14/24 04:18 BP 149/69 H 11/14/24 04:18 Pulse Ox 99 11/14/24 04:18 O2 Del Method Room Air 11/14/24 04:18 BMI result Body Mass Index 28.3 Alert and orientated X3, able to give good history but complaining of nausea and pain in the abdomen Neuro: CN II-X11 intact, no deficits, visual acuity intact EYES: PERRLA, EOM intact, sclerae nonicteric ENT: hearing intact, no issues with swallowing, uvula midline, lips dry, nares patent no epistaxis Cardiac: S1 S2 RRR, no murmur, no JVD, no edema in Lower ext Pulmonary: lungs diminished bilaterally Abdominal: BS active in all 4 quadrants, noted guarding with tenderness in the upper epigastric area MSK: strength 5/5 upper and lower extremities : no CVA tenderness no bladder distension Extremities: no edema in lower extremities, PT and DP pulses palpable +2 Psych: mood anxious, judgement and insight good Skin: No new lesions or rashes Results Labs 11/13/24 22:08 11/13/24 22:08 Labs: Laboratory Results - last 24 hr 11/13/24 11/13/24 22:08 23:25 MCV 92.9 MCH 31.1 MCHC 33.5 RDW 15.9 Plt Count 351 D MPV 8.7 L Immature Gran % (Auto) 0.4 Neut % (Auto) 70.1 Lymph % (Auto) 20.1 Meagher % (Auto) 6.2 Eos % (Auto) 2.2 Baso % (Auto) 1.0 Lymph # (Auto) 1.4 [place] # (Auto) 0.4 Eos # (Auto) 0.2 Baso # (Auto) 0.1 Abs Immat Gran (auto) 0.03 Absolute Neuts (auto) 4.9 Absolute Nucleated RBC 0.000 Nucleated RBC % (auto) 0.0 Anion Gap 15 Estim Creat Clear Calc 14.7 Estimated GFR 11 Random Glucose 100 Calcium 9.4 Total Bilirubin 0.2 AST 20 ALT 6 Alkaline Phosphatase 114 Total Protein 6.0 L Albumin 3.5 Urine Color Yellow Urine Appearance Clear Urine pH >= 9.0 Ur Specific [place] <= 1.005 Urine Protein 100 (2+) H Urine Glucose (UA) Negative Urine Ketones Negative Urine Blood Trace H Urine Nitrite Negative Ur Leukocyte Esterase Negative Urine RBC 3-5 H Urine WBC 0-5 Ur Squamous Epith Cells 6-10 Urine Bacteria Trace Hyaline Casts 0-2 Gastric Occult Blood NEGATIVE Stool Occult Blood NEGATIVE Blood Type O Positive Antibody Screen NEGATIVE ECG Attestation: I personally reviewed and interpreted this ECG as follows: (Sinus tachycardia QTC 493) Imaging Radiologist's Impressions: CT of the abdomen and pelvis IMPRESSION: 1. Small bowel dilatation concerning for small bowel obstruction. 2. Nonobstructing nephrolithiasis of the left kidney. No hydronephrosis. Assessment and Plan (1) ESRD on dialysis: Status: Acute (2) Small bowel obstruction: Status: Acute Plan Patient is a 54-year-old female with past medical history end-stage renal disease on dialysis Mondays, Wednesdays and Fridays with left upper arm graft, hypertension, migraine aura, GI bleed secondary to gastric ulcer, esophagitis/GERD gastric sleeve with 2 revisions, hidradenitis, fibromyalgia, chronic back pain, MDD, anxiety was brought in by ambulance to the emergency department for complaints of worsening abdominal pain with nausea but no vomiting. Patient accepted by surgery for admission for small-bowel obstruction. Hospitalist asked to consult on medical management. Small-bowel obstruction Management per surgery NPO ESRD on dialysis Last dialysis past Friday Patient dialyzes Friday, Friday, Friday Patient has graft left upper arm, no blood pressures IVs or labs on left arm ordered Nephrology consulted for management Patient is not oliguric or anuric UA negative for UTI Measure I's and nose Acute on chronic anemia with recent history of GI bleed Stool for occult negative for blood No indication for transfusion at this time Daily CBC We will check iron studies and vitamin B12 Protonix IV BID GERD with history of esophagitis and gastritis along with peptic ulcer Protonix IV b.i.d. as patient is NPO Hypertension Once med rec completed and no longer NPO continue Coreg as long as systolic remains above 120 Hydralazine p.r.n. for systolic greater than 160 Blood pressure currently stable History of migraine Imitrex PRN Patient can not take NSAIDs History of gastric sleeve Patient has had at least 2 revision since the original procedure Gastric ulcers resulted as a complication Consider consultation with Bariatric surgery if needed or follow-up as an outpatient BMI is stable at 28.3 Can consider nutritional consultation if needed once patient is no longer NPO Continue B vitamins once patient is no longer NPO Fibromyalgia with chronic back pain Continue gabapentin once no longer NPO Prolonged QTC Checking magnesium level, if low recommend supplementation IV Monitor closely as patient is normally on an SSRI Would recommend repeating EKG prior to resuming p.o. medications including antidepressants MDD/anxiety Patient normally on citalopram QTC is prolonged Patient currently NPO Recommend repeating EKG prior to starting p.o. citalopram Magnesium pending DVT prophylaxis: Held secondary to small-bowel obstruction and anemia Med rec pending Full code status Hospitalist group will continue to follow, please reach out with any questions or concerns in the interim.
--- NOTE | 2024-11-14 05:09 | PC.NURSE ---
pt reports nausea, PRN zofran ordered, will medicate pt.
--- NOTE | 2024-11-14 05:15 | PC.NURSE ---
pt medicated per MAR
[2024-11-14 05:54] LABS: Iron 38 mcg/dL (30-160); Magnesium 2.0 mg/dL (1.6-2.6); Percent Iron Saturation 22 % (15-50); Total Iron Binding Capacity 169 mcg/dL (228-428); Unsaturated Iron Binding 131 ug/dL
--- NOTE | 2024-11-14 06:07 | PC.NURSE ---
pt medicated per MAR
[2024-11-14 06:59] LABS: Folate 9.0 ng/mL (> or = 4.0); Vitamin B12 590 pg/mL (200-900)
--- NOTE | 2024-11-14 07:30 | P.PNIM_ITS ---
Subjective Subjective Date of Service: 11/14/24 Physical Exam 2 Vital Signs: Vital Signs: Last Vital Signs Temp 98.5 F 11/14/24 04:18 Pulse 95 11/14/24 04:18 BP 149/69 H 11/14/24 04:18 Pulse Ox 99 11/14/24 04:18 O2 Del Method Room Air 11/14/24 04:18 BMI result Body Mass Index 28.3 Objective Data Active Medications Acetaminophen (Acetaminophen 325 Mg Tablet) 650 mg PO Q6H PRN PRN Reason: Pain, Mild 1-3,fever,headache Hydralazine HCl (Hydralazine Hcl 20 Mg/Ml Vial) 10 mg IVPUSH Q6H PRN; Protocol PRN Reason: SBP > 160 Hydromorphone HCl (Hydromorphone Hcl 1 Mg/Ml Syringe) 1 mg IVPUSH Q3H PRN; Protocol PRN Reason: Pain, Severe (Pain Scale 7-10) Last Admin: 11/14/24 07:17 Dose: 1 mg Documented By: MARIBEL Sodium Chloride (Ns) 1,000 mls @ 100 mls/hr IVCONT .Q10H [facility] Last Admin: 11/14/24 04:38 Dose: 100 mls/hr Documented By: ALYCE Melatonin (Melatonin 3 Mg Tablet) 6 mg PO BEDTIME PRN PRN Reason: Insomnia Ondansetron HCl (Ondansetron Hcl 4 Mg/2 Ml Vial) 4 mg IVPUSH Q8H PRN PRN Reason: Nausea and Vomiting Last Admin: 11/14/24 05:12 Dose: 4 mg Documented By: ALYCE Pantoprazole Sodium (Pantoprazole Sodium 40 Mg/10 Ml Vial) 40 mg IVPUSH BID@0630,1630 [facility] Last Admin: 11/14/24 06:06 Dose: 40 mg Documented By: ALYCE Sodium Chloride (0.9 % Sodium Chloride Flush 3 Ml Syringe) 3 ml IVFLUSH QSHIFT [facility] Last Admin: 11/14/24 07:14 Dose: Not Given Documented By: MARIBEL Non-Admin Reason: IV Running Sumatriptan Succinate (Sumatriptan Succinate 25 Mg Tablet) 25 mg PO DAILY PRN PRN Reason: Migraine Headache Labs 11/13/24 22:08 11/13/24 22:08 Labs: Laboratory Results - last 24 hr 10/04/25 10/04/25 10/05/25 22:08 23:25 05:34 MCV 92.9 MCH 31.1 MCHC 33.5 RDW 15.9 Plt Count 351 D MPV 8.7 L Immature Gran % (Auto) 0.4 Neut % (Auto) 70.1 Lymph % (Auto) 20.1 [place] % (Auto) 6.2 Eos % (Auto) 2.2 Baso % (Auto) 1.0 Lymph # (Auto) 1.4 [place] # (Auto) 0.4 Eos # (Auto) 0.2 Baso # (Auto) 0.1 Abs Immat Gran (auto) 0.03 Absolute Neuts (auto) 4.9 Absolute Nucleated RBC 0.000 Nucleated RBC % (auto) 0.0 Hold Purple Top Anion Gap 15 Estim Creat Clear Calc 14.7 Estimated GFR 11 Random Glucose 100 Calcium 9.4 Magnesium 2.0 Iron 38 TIBC 169 L % Saturation 22 Unsat Iron Binding 131 Total Bilirubin 0.2 AST 20 ALT 6 Alkaline Phosphatase 114 Total Protein 6.0 L Albumin 3.5 Vitamin B12 590 Folate 9.0 TSH 1.87 Urine Color Yellow Urine Appearance Clear Urine pH >= 9.0 Ur Specific [place] <= 1.005 Urine Protein 100 (2+) H Urine Glucose (UA) Negative Urine Ketones Negative Urine Blood Trace H Urine Nitrite Negative Ur Leukocyte Esterase Negative Urine RBC 3-5 H Urine WBC 0-5 Ur Squamous Epith Cells 6-10 Urine Bacteria Trace Hyaline Casts 0-2 Gastric Occult Blood NEGATIVE Stool Occult Blood NEGATIVE Blood Type O Positive Antibody Screen NEGATIVE 11/14/24 06:04 MCV MCH MCHC RDW Plt Count MPV Immature Gran % (Auto) Neut % (Auto) Lymph % (Auto) [place] % (Auto) Eos % (Auto) Baso % (Auto) Lymph # (Auto) [place] # (Auto) Eos # (Auto) Baso # (Auto) Abs Immat Gran (auto) Absolute Neuts (auto) Absolute Nucleated RBC Nucleated RBC % (auto) Hold Purple Top SEE NOTE Anion Gap Estim Creat Clear Calc Estimated GFR Random Glucose Calcium Magnesium Iron TIBC % Saturation Unsat Iron Binding Total Bilirubin AST ALT Alkaline Phosphatase Total Protein Albumin Vitamin B12 Folate TSH Urine Color Urine Appearance Urine pH Ur Specific [place] Urine Protein Urine Glucose (UA) Urine Ketones Urine Blood Urine Nitrite Ur Leukocyte Esterase Urine RBC Urine WBC Ur Squamous Epith Cells Urine Bacteria Hyaline Casts Gastric Occult Blood Stool Occult Blood Blood Type Antibody Screen Quality VTE VTE Risk Level:: Surgical - low VTE Device Contraindication: N/A - Device Ordered VTE Drug Contraindication: N/A - Med Ordered
--- NOTE | 2024-11-14 08:02 | P.CONHOSP_ITS ---
History of Present Illness Data of Consult Service Date: 11/14/24 Primary Care Provider: Unknown Physician HPI Reason for consult: Medical comanagement Medicine consult-Patient is a 54-year-old female with past medical history end-stage renal disease on dialysis Mondays, Wednesdays and Fridays with left upper arm graft, hypertension, migraine aura, GI bleed secondary to gastric ulcer, esophagitis/GERD gastric sleeve with 2 revisions, hidradenitis, fibromyalgia, chronic back pain, MDD, anxiety was brought in by ambulance to the emergency department for complaints of worsening abdominal pain with nausea but no vomiting. Patient accepted by surgery for admission for small-bowel obstruction. Hospitalist asked to consult on medical management. 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 Lumbar back pain with radiculopathy affecting left lower extremity Physical exam (~02/14/21) Peritoneal dialysis catheter in place Polyarthralgia Dyslipidemia Family history of ovarian cancer Abnormal mammogram of right breast Angina pectoris syndrome Chest pain Constipation Nephrosclerosis Renal interstitial fibrosis Obesity (BMI 30-39.9) Back pain GERD (gastroesophageal reflux disease) History of headache HTN (hypertension) Functional capacity: independent ambulation Family History Father Asthma Mother Asthma Hypertension Ovarian cancer Maternal Grandfather Myocardial infarction Paternal Grandmother Stroke Surgical History History of sleeve gastrectomy S/P arteriovenous (AV) graft placement Fistula Hx of colonoscopy Hx of hysterectomy Hx of tubal ligation History of endometrial ablation Social History Household Members: Children Household Members Other:: 30 year old special needs son Housing: Apartment Are you a primary family day care worker to a significant other at home: No Do you presently have visiting nurse or other home services: Yes Alcohol intake: never Comment: low fall risk Patient Tobacco Use Status: Former Tobacco user Tobacco use type: Cigarette Cigarette Packs Per Day: 1 Cigarettes Per Day: 1 Years Smoked: 10+ Smoked in Last 30 Days: No e-Cigarette/Vaping Use: Never Used Second Hand Smoke Exposure: No Use of substances other than those prescribed or required for medical reasons: No Substance Use Type: Caffiene Advance Directives: Yes Advance Directives on File: Yes Advance Directives Date on File: 04/27/20 Nutrition Risks: No Nutritional Risk Patient : No service: No Current occupational status: employed Cognitive needs: No Hearing needs: No Vision needs: Yes (reading glasses) Meds Allergies Allergy/AdvReac Type Severity Reaction Status Date / Time ibuprofen Allergy Severe Unknown Verified 11/13/24 21:40 nifedipine Allergy Intermediate hives, leg Verified 11/13/24 21:40 edema Active Medications: Current Medications Acetaminophen (Acetaminophen 325 Mg Tablet) 650 mg PO Q6H PRN PRN Reason: Pain, Mild 1-3,fever,headache Hydralazine HCl (Hydralazine Hcl 20 Mg/Ml Vial) 10 mg IVPUSH Q6H PRN; Protocol PRN Reason: SBP > 160 Hydromorphone HCl (Hydromorphone Hcl 1 Mg/Ml Syringe) 1 mg IVPUSH Q3H PRN; Protocol PRN Reason: Pain, Severe (Pain Scale 7-10) Last Admin: 11/14/24 07:17 Dose: 1 mg Sodium Chloride (Ns) 1,000 mls @ 100 mls/hr IVCONT .Q10H [facility] Last Admin: 11/14/24 04:38 Dose: 100 mls/hr Melatonin (Melatonin 3 Mg Tablet) 6 mg PO BEDTIME PRN PRN Reason: Insomnia Ondansetron HCl (Ondansetron Hcl 4 Mg/2 Ml Vial) 4 mg IVPUSH Q8H PRN PRN Reason: Nausea and Vomiting Last Admin: 11/14/24 05:12 Dose: 4 mg Pantoprazole Sodium (Pantoprazole Sodium 40 Mg/10 Ml Vial) 40 mg IVPUSH BID@0630,1630 [facility] Last Admin: 11/14/24 06:06 Dose: 40 mg Sodium Chloride (0.9 % Sodium Chloride Flush 3 Ml Syringe) 3 ml IVFLUSH QSHIFT [facility] Last Admin: 11/14/24 07:14 Dose: Not Given Sumatriptan Succinate (Sumatriptan Succinate 25 Mg Tablet) 25 mg PO DAILY PRN PRN Reason: Migraine Headache Home Medications ?Medication ?Instructions ?Recorded ?Confirmed ?Last Taken ?Type ferrous sulfate 325 mg (65 mg 325 mg PO DAILY 05/11/20 11/14/24 09/16/24 History iron) tablet,delayed release cyanocobalamin (vitamin B-12) 1,000 mcg PO DAILY 10/1711/14/24 09/16/24 History 1,000 mcg tablet acetaminophen 500 mg capsule 1,000 mg PO Q8H PRN Pain 08/10/23 11/14/24 09/16/24 History (Mapap (acetaminophen)) fluticasone propionate 50 1 spray intranasal DAILY PRN 08/10/23 11/14/24 05/18/24 History mcg/actuation nasal Allergy Symptoms spray,suspension hvoyxpyy-kfxccojj-hxsm 45 mg-folic 1 cap PO DAILY 07/1311/14/24 09/16/24 History acid 800 mcg-vit K 120 mcg capsule (Bariatric Multivitamins) parenteral amino acid 15% no.5 15 0.5 ea IV MOWEFR@090 0 08/10/23 11/14/24 06/02/24 History % combination no.5 intravenous solution (Clinisol SF) zinc acetate 50 mg (zinc) capsule 100 mg PO DAILY 11/0411/14/24 09/16/24 History meclizine 12.5 mg tablet 12.5 mg PO TID PRN Nausea An d 06/04/24 11/14/24 06/04/24 History Vomiting clotrimazole-betamethasone 1 1 appl topical DAILY PRN Rash 09/20/24 11/14/24 Unknown History %-0.05 % topical cream carvedilol 6.25 mg tablet 6.25 mg PO BID PRN Tachycard ia 11/14/24 11/14/24 Unknown History midodrine 5 mg tablet 5 mg PO TID 11/14/24 5 Unknown History misoprostol 200 mcg tablet 200 mcg PO 5XD 11/14/2407/04 Unknown History omeprazole 40 mg capsule,delayed 40 mg PO BID@0630,163 0 11/14/24 11/14/24 Unknown History release pantoprazole 40 mg tablet,delayed 40 mg PO QAM 5 11/14/24 Unknown History release sucralfate 1 gram tablet 1 g PO QIDWMHS 11/14/24 1007/04 Unknown History Physical Exam 2 Vital Signs and Narrative: Vital Signs: Last Vital Signs Temp 98.5 F 11/14/24 04:18 Pulse 95 11/14/24 04:18 BP 149/69 H 11/14/24 04:18 Pulse Ox 99 11/14/24 04:18 O2 Del Method Room Air 11/14/24 04:18 BMI result Body Mass Index 28.3 General-appears uncomfortable, but does not appear to be in acute distress at this time , A&O x3 Cardiac: S1 S2 RRR, no murmur, no JVD, no edema in Lower ext Pulmonary: lungs diminished bilaterally, Abdominal: Sluggish bowel sounds, no guarding, no acute abdomen Results Labs 11/13/24 22:08 11/13/24 22:08 Labs: Laboratory Results - last 24 hr 11/13/24 11/13/24 11/14/24 22:08 23:25 05:34 MCV 92.9 MCH 31.1 MCHC 33.5 RDW 15.9 Plt Count 351 D MPV 8.7 L Immature Gran % (Auto) 0.4 Neut % (Auto) 70.1 Lymph % (Auto) 20.1 Walker % (Auto) 6.2 Eos % (Auto) 2.2 Baso % (Auto) 1.0 Lymph # (Auto) 1.4 Walker # (Auto) 0.4 Eos # (Auto) 0.2 Baso # (Auto) 0.1 Abs Immat Gran (auto) 0.03 Absolute Neuts (auto) 4.9 Absolute Nucleated RBC 0.000 Nucleated RBC % (auto) 0.0 Hold Purple Top Anion Gap 15 Estim Creat Clear Calc 14.7 Estimated GFR 11 Random Glucose 100 Calcium 9.4 Magnesium 2.0 Iron 38 TIBC 169 L % Saturation 22 Unsat Iron Binding 131 Total Bilirubin 0.2 AST 20 ALT 6 Alkaline Phosphatase 114 Total Protein 6.0 L Albumin 3.5 Vitamin B12 590 Folate 9.0 TSH 1.87 Urine Color Yellow Urine Appearance Clear Urine pH >= 9.0 Ur Specific [place] <= 1.005 Urine Protein 100 (2+) H Urine Glucose (UA) Negative Urine Ketones Negative Urine Blood Trace H Urine Nitrite Negative Ur Leukocyte Esterase Negative Urine RBC 3-5 H Urine WBC 0-5 Ur Squamous Epith Cells 6-10 Urine Bacteria Trace Hyaline Casts 0-2 Gastric Occult Blood NEGATIVE Stool Occult Blood NEGATIVE Blood Type O Positive Antibody Screen NEGATIVE 11/14/24 06:04 MCV MCH MCHC RDW Plt Count MPV Immature Gran % (Auto) Neut % (Auto) Lymph % (Auto) Walker % (Auto) Eos % (Auto) Baso % (Auto) Lymph # (Auto) Walker # (Auto) Eos # (Auto) Baso # (Auto) Abs Immat Gran (auto) Absolute Neuts (auto) Absolute Nucleated RBC Nucleated RBC % (auto) Hold Purple Top SEE NOTE Anion Gap Estim Creat Clear Calc Estimated GFR Random Glucose Calcium Magnesium Iron TIBC % Saturation Unsat Iron Binding Total Bilirubin AST ALT Alkaline Phosphatase Total Protein Albumin Vitamin B12 Folate TSH Urine Color Urine Appearance Urine pH Ur Specific [place] Urine Protein Urine Glucose (UA) Urine Ketones Urine Blood Urine Nitrite Ur Leukocyte Esterase Urine RBC Urine WBC Ur Squamous Epith Cells Urine Bacteria Hyaline Casts Gastric Occult Blood Stool Occult Blood Blood Type Antibody Screen Assessment and Plan (1) ESRD on dialysis: Status: Acute (2) Small bowel obstruction: Status: Acute Plan Patient is a 54-year-old female with past medical history end-stage renal disease on dialysis Mondays, Wednesdays and Fridays with left upper arm graft, hypertension, migraine aura, GI bleed secondary to gastric ulcer, esophagitis/GERD gastric sleeve with 2 revisions, hidradenitis, fibromyalgia, chronic back pain, MDD, anxiety was brought in by ambulance to the emergency department for complaints of worsening abdominal pain with nausea but no vomiting. Patient accepted by surgery for admission for small-bowel obstruction. Hospitalist asked to consult on medical management. Small-bowel obstruction Management per surgery NPO ESRD on dialysis Last dialysis past Friday Patient dialyzes Friday, Friday, Friday Patient has graft left upper arm, no blood pressures IVs or labs on left arm ordered Nephrology consulted for management Patient is not oliguric or anuric UA negative for UTI Measure I's and nose Acute on chronic anemia with recent history of GI bleed Stool for occult negative for blood No indication for transfusion at this time Daily CBC We will check iron studies and vitamin B12 Protonix IV BID GERD with history of esophagitis and gastritis along with peptic ulcer Protonix IV b.i.d. as patient is NPO Hypertension Once med rec completed and no longer NPO continue Coreg as long as systolic remains above 120 Hydralazine p.r.n. for systolic greater than 160 Blood pressure currently stable History of migraine Imitrex PRN Patient can not take NSAIDs History of gastric sleeve Patient has had at least 2 revision since the original procedure Gastric ulcers resulted as a complication Consider consultation with Bariatric surgery if needed or follow-up as an outpatient BMI is stable at 28.3 Can consider nutritional consultation if needed once patient is no longer NPO Continue B vitamins once patient is no longer NPO Fibromyalgia with chronic back pain Continue gabapentin once no longer NPO Prolonged QTC Checking magnesium level, if low recommend supplementation IV Monitor closely as patient is normally on an SSRI Would recommend repeating EKG prior to resuming p.o. medications including antidepressants MDD/anxiety Patient normally on citalopram QTC is prolonged Patient currently NPO Recommend repeating EKG prior to starting p.o. citalopram Magnesium pending DVT prophylaxis: Held secondary to small-bowel obstruction and anemia Med rec pending Full code status Thank you for consulting Medicine, at this time-medicine team will sign off, please feel free to reconsult if needed.
--- NOTE | 2024-11-14 08:45 | PHA.MEDREC ---
Pharmacy Consult ? Medication Reconciliation Pharmacy has completed the medication reconciliation. Spoke to patient at bedside, able to name meds unprompted. Says she takes midodrine still despite LF date. Also states she takes both omeprazole and pantoprazole d/t ulcers. Clinisol MWF for protein. States she stopped carvedilol but takes it only when she needs it
--- NOTE | 2024-11-14 15:21 | PM.HPGS ---
History of Present Illness History of Present Illness Date of Service: 11/15/24 Chief complaint: Vomiting Narrative: Meliza Perry is a 54 year old female who presents today to the emergency room with increasing abdominal pain nausea and some vomiting. Patient has a complex bariatric surgery history as having a remote sleeve gastrectomy 2012 but then losing a lot of weight because she had narrowing of her sleeve. This was originally done in [facility] question of around [address] Rosen. Patient was over 200 lb at the time of a procedure and had severe weight loss came down to 90 something lb and could not eat or gain weight. She eventually underwent a revision of the sleeve gastrectomy to what may have been more of a bypass procedure . She was able to gain some more weight but still having issues. Recently she had a GI bleed and was diagnosed with marginal ulcer. She has been treated with sucralfate PPI medication etc.. Several weeks ago she presented here was transferred to [facility] where she underwent on October 11 to 2024 EGD and then what seemed to be documented as an exploratory laparoscopy with lysis of adhesions. We do not have her full records and having some difficulty obtaining them as it is Friday. It seems that her surgeon was Dr. David Mitchell . Yesterday she became more nauseated and vomited and her abdominal pain increased. Patient is relatively very savvy with her past medical history. As a result she comes in to the emergency room for care. Here CT scan of her abdomen and pelvis was carried out which showed findings consistent with small-bowel obstruction secondary to distal distended small bowel. No other concerning findings. She has a complex medical history significant for end-stage renal disease and she is on dialysis with a left arm fistula which has had issues with clotting but is functioning now. She last had dialysis on Friday. 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 Lumbar back pain with radiculopathy affecting left lower extremity Physical exam (~02/14/21) Peritoneal dialysis catheter in place Polyarthralgia Dyslipidemia Family history of ovarian cancer Abnormal mammogram of right breast Angina pectoris syndrome Chest pain Constipation Nephrosclerosis Renal interstitial fibrosis Obesity (BMI 30-39.9) Back pain GERD (gastroesophageal reflux disease) History of headache HTN (hypertension) Family History Family History Father Asthma Mother Asthma Hypertension Ovarian cancer Maternal Grandfather Myocardial infarction Paternal Grandmother Stroke Surgical History Surgical History History of sleeve gastrectomy S/P arteriovenous (AV) graft placement Fistula Hx of colonoscopy Hx of hysterectomy Hx of tubal ligation History of endometrial ablation Social History Social History Household Members: Children Household Members Other:: 30 year old special needs son Housing: Apartment Are you a primary career developer to a significant other at home: No Do you presently have visiting nurse or other home services: Yes Alcohol intake: never Comment: low fall risk Patient Tobacco Use Status: Former Tobacco user Tobacco use type: Cigarette Cigarette Packs Per Day: 1 Cigarettes Per Day: 1 Years Smoked: 10+ e-Cigarette/Vaping Use: Never Used Second Hand Smoke Exposure: No Substance Use Type: Caffiene Advance Directives Date on File: 04/27/20 service: No Current occupational status: employed Cognitive needs: No Hearing needs: No Vision needs: Yes (reading glasses) Meds Allergies Allergy/AdvReac Type Severity Reaction Status Date / Time ibuprofen Allergy Severe Unknown Verified 11/13/24 21:40 nifedipine Allergy Intermediate hives, leg Verified 11/13/24 21:40 edema Active Medications: Current Medications Acetaminophen (Acetaminophen 325 Mg Tablet) 650 mg PO Q6H PRN PRN Reason: Pain, Mild 1-3,fever,headache Hydralazine HCl (Hydralazine Hcl 20 Mg/Ml Vial) 10 mg IVPUSH Q6H PRN; Protocol PRN Reason: SBP > 160 Hydromorphone HCl (Hydromorphone Hcl 1 Mg/Ml Syringe) 1 mg IVPUSH Q3H PRN; Protocol PRN Reason: Pain, Severe (Pain Scale 7-10) Last Admin: 11/14/24 12:37 Dose: 1 mg Sodium Chloride (Ns) 1,000 mls @ 100 mls/hr IVCONT .Q10H [facility] Last Admin: 11/14/24 15:14 Dose: 100 mls/hr Melatonin (Melatonin 3 Mg Tablet) 6 mg PO BEDTIME PRN PRN Reason: Insomnia Ondansetron HCl (Ondansetron Hcl 4 Mg/2 Ml Vial) 4 mg IVPUSH Q8H PRN PRN Reason: Nausea and Vomiting Last Admin: 11/14/24 05:12 Dose: 4 mg Pantoprazole Sodium (Pantoprazole Sodium 40 Mg/10 Ml Vial) 40 mg IVPUSH BID@0630,1630 [facility] Last Admin: 11/14/24 06:06 Dose: 40 mg Sodium Chloride (0.9 % Sodium Chloride Flush 3 Ml Syringe) 3 ml IVFLUSH QSHIFT [facility] Last Admin: 11/14/24 15:15 Dose: Not Given Sumatriptan Succinate (Sumatriptan Succinate 25 Mg Tablet) 25 mg PO DAILY PRN PRN Reason: Migraine Headache Home Medications ?Medication ?Instructions ?Recorded ?Confirmed ?Last Taken ?Type ferrous sulfate 325 mg (65 mg 325 mg PO DAILY 05/11/20 11/14/24 09/16/24 History iron) tablet,delayed release cyanocobalamin (vitamin B-12) 1,000 mcg PO DAILY 10/17/20 11/14/24 09/16/24 History 1,000 mcg tablet acetaminophen 500 mg capsule 1,000 mg PO Q8H PRN Pain 08/10/23 11/14/24 09/16/24 History (Mapap (acetaminophen)) fluticasone propionate 50 1 spray intranasal DAILY PRN 08/10/23 11/14/24 05/18/24 History mcg/actuation nasal Allergy Symptoms spray,suspension bryoknwm-iokqrrfd-mbtd 45 mg-folic 1 cap PO DAILY 08/10/23 11/14/24 09/16/24 History acid 800 mcg-vit K 120 mcg capsule (Bariatric Multivitamins) parenteral amino acid 15% no.5 15 0.5 ea IV MOWEFR@0900 08/10/23 11/14/24 06/02/24 History % combination no.5 intravenous solution (Clinisol SF) zinc acetate 50 mg (zinc) capsule 100 mg PO DAILY 05/19/24 11/14/24 09/16/24 History meclizine 12.5 mg tablet 12.5 mg PO TID PRN Nausea And 06/04/24 11/14/24 06/04/24 History Vomiting clotrimazole-betamethasone 1 1 appl topical DAILY PRN Rash 09/20/24 11/14/24 Unknown History %-0.05 % topical cream carvedilol 6.25 mg tablet 6.25 mg PO BID PRN Tachycardia 11/14/24 11/14/24 Unknown History midodrine 5 mg tablet 5 mg PO TID 11/14/24 11/14/24 Unknown History misoprostol 200 mcg tablet 200 mcg PO 5XD 11/14/24 11/14/24 Unknown History omeprazole 40 mg capsule,delayed 40 mg PO BID@0630,1630 11/14/24 11/14/24 Unknown History release pantoprazole 40 mg tablet,delayed 40 mg PO QAM 11/14/24 11/14/24 Unknown History release sucralfate 1 gram tablet 1 g PO QIDWMHS 11/14/24 11/14/24 Unknown History Physical Exam Vital Signs: Vital Signs: Last Vital Signs Temp 98.4 F 11/14/24 15:16 Pulse 93 11/14/24 15:16 Resp 18 11/14/24 15:16 BP 102/50 L 11/14/24 15:16 Pulse Ox 100 11/14/24 15:16 O2 Del Method Room Air 11/14/24 15:16 BMI result Body Mass Index 28.3 Const: General: cooperative and acute distress mild Orientation/consciousness: oriented to person, oriented to place and oriented to time Resp: Effort & Inspection: normal respiratory effort Auscultation: clear to auscultation bilaterally Cardio: Rate: regular rate Rhythm: regular rhythm GI: Other: Abdomen is soft nondistended active bowel sounds she is tender but no rebound no peritoneal signs no guarding. Incision sites are all well healed Skin: Other: Nonicteric Neuro: General: oriented to person, oriented to place and oriented to time Psych: Appearance: grossly normal Mental Status: mental status grossly normal Speech and movement: Normal speech and movement present Affect: normal affect Attitude: cooperative Thought process: Normal thought process present Thought content: Normal thought content present Insight: Good insight present (Psych) Judgement: Good judgement present (Psych) Results Results Labs: Short CBC 10/04/25 Range/Units 22:08 WBC 6.9 (4.8-10.8) X10*3/uL Hgb 7.5 L (12.0-16.0) g/dl Hct 22.4 L (37.0-47.0) % Plt Count 351 D (160-400) X10*3/uL BMP 11/13/24 22:08 Sodium 138 Potassium 3.9 D Chloride 98 Carbon Dioxide 29 BUN 32 H Creatinine 4.21 H* Calcium 9.4 Liver Function 11/13/24 Range/Units 22:08 Total Bilirubin 0.2 (0.0-1.0) mg/dL AST 20 (5-31) U/L ALT 6 (0-31) U/L Alkaline Phosphatase 114 (39-117) U/L Albumin 3.5 (3.5-5.0) g/dL Urine 11/13/24 Range/Units 23:25 Urine Color Yellow Urine Appearance Clear Urine pH >= 9.0 (5.0-9.0) Ur Specific [place] <= 1.005 (1.005-1.025) Urine Protein 100 (2+) H (Neg-Trace) mg/dL Urine Glucose (UA) Negative (Negative) mg/dL Abdomen CT scan report/results: report reviewed and image reviewed CT scan - pelvis: report reviewed and image reviewed Additional studies: Signed with Eda Patient: Meliza Olguin MR#: [id number] : 1970 Acct:[id number] Age/Sex: 54 / F ADM Date: 11/13/24 Loc: HO.ED Attending Dr: Ordering Physician: Gris Aguirre MD Date of Service: 11/13/24 Procedure(s): CT abdomen pelvis wo IV con Accession Number(s): [id number] cc: Gris Aguirre MD; Physician,Unknown ~ Report Number: [id number]: Total DLP = 0.00 mGy-cm Reason for Exam: abd pain, 3 weeks lap band sx revision ADDENDUMThis document has been electronically signed by: Toan Greer MD on 11/14/2024 01:37:18 ADDENDUM: This report was discussed with Gris Aguirre MD on Nov 14, 2024 01:41:00 EDT. This document has been electronically signed by: Neil Newman on 11/14/2024 01:41:55 Addendum Dictated By: Toan Greer MD Addendum Signed By: <Electronically signed by Taon Greer MD in [place]> 11/14/24 014 Addendum Cosigned By: DD/ /04/136 TD/TT: 11/14/2407/04/140 CLINICAL HISTORY: abd pain, 3 weeks lap band sx revision CT abdomen and pelvis without contrast Comparison: CT of the abdomen and pelvis from 11/05/2024. Findings: Mild bibasilar atelectasis/pneumonitis, left worse than right. Lung scarring also redemonstrated. Postprocedural changes with now likely gastric bypass. Small bowel dilatation measures 3 cm distal to anastomosis concerning for small bowel obstruction in the left hemiabdomen. Also question transition point in the left lower quadrant. Appendicolith present without findings of acute appendicitis. Moderate stool burden present, including the cecum. Mild wall thickening of the large intestine is nonspecific, including the cecum. Gallbladder is distended with cholelithiasis by CT (209 of series 3). No new or worsening lymphadenopathy by noncontrast CT. Nonobstructing nephrolithiasis measures 3 mm in the left kidney. No obstructing stone in either kidney or either imaged ureter. Moderate wall thickening of the urinary bladder is nonspecific. Bilateral adrenal hyperplasia redemonstrated. Spleen approaches the upper limits of normal. Mild volume loss of the pancreas. Liver is unchanged by noncontrast imaging. Uterus is absent or obscured. No adnexal soft tissue mass by noncontrast CT. Degenerative changes include imaged hips, SI joints, and spine. Grade 1 anterolisthesis of the L4-L5. Stress phenomenon with partial lysis of the left L5 pars. Facet arthropathy is most pronounced in the lower lumbar spine. IMPRESSION: 1. Small bowel dilatation concerning for small bowel obstruction. 2. Nonobstructing nephrolithiasis of the left kidney. No hydronephrosis. This document has been electronically signed by: Toan Greer MD on 11/14/2024 01:37:18 Dictated By: Toan Greer MD Signed By: <Electronically signed by Toan Greer MD in [place]> 11/14/24137 DD/ 6 TD/TT: 11/14/24136 Patient Registration Clerk: Assessment and Plan (1) Small bowel obstruction: Status: Acute Plan 54-year-old female complex bariatric history status post sleeve gastrectomy revised to gastric bypass complicated by several episodes of GI bleeds from marginal ulcers and most recently last month undergoing repeat EGD and diagnostic laparoscopy with lysis of adhesions and [facility]. Coming in today with increasing abdominal pain nausea and workup revealing normal white count but CT scan showing some distended small bowel loops consistent with partial small bowel obstruction. Clinically patient is improving and doing well here. No need for any emergent intervention. We will plan on keeping NPO with IV fluid resuscitation as tolerated by the fact that she is dialysis patient. Hospitalist consult we will be had to help us understand this. We will try to get in touch on Friday with the patient's surgeon Dr. David Mitchell to get a better understanding of foot was carried out. Patient understands and agrees with the above plan Quality Stroke Does the patient have a stroke diagnosis?: No VTE Prior VTE?: No VTE Risk Level:: Surgical - low VTE Device Contraindication: N/A - Device Ordered VTE Drug Contraindication: N/A - Med Ordered Procedures Date of Service Date of Service: 11/15/24
--- NOTE | 2024-11-14 19:46 | PC.NURSE ---
assist to bedside commode, pt did well. back in bed resting comfortably at this time. aware of transport upstairs tonight.
[2024-11-15] VITALS (9 sets, daily range): BP systolic 108–138; BP diastolic 54–63; PULSE 84–94; RESP 16–18; TEMP 36.1–36.9; O2SAT 94–99
--- NOTE | 2024-11-15 07:31 | PC.ADMIT ---
Pt arrived to the unit via stretcher at approx 2044. Pt A&O x4. REILLY. Pt calm and cooperative with care. Meds administered per APR. See flowsheets and worklist tasks for more info. Plan of care continues.
--- NOTE | 2024-11-15 09:01 | P.PNGS_ITS ---
Subjective Subjective Date of Service: 11/15/24 Interval history: Overall feels improved since presentation. She continues to endorse some abdominal pain. It is well controlled with medication. But as this wears off she feels that the pain slowly increasing. She does have associated nausea also well controlled with medication. No episodes of vomiting. States she is passing some gas. No bowel movements at this time Physical Exam 2 Vital Signs: Vital Signs: Last Vital Signs Temp 97.4 F 11/15/24 03:53 Pulse 93 11/15/24 03:53 Resp 18 11/15/24 06:17 BP 108/54 L 11/15/24 03:53 Pulse Ox 94 11/15/24 03:53 O2 Del Method Room Air 11/15/24 03:53 BMI result Body Mass Index 22.6 Const: General: comfortable and no acute distress O rientation/consciousness: patient oriented x3 GI: Other: Quiet but active bowel sounds throughout Inspection: No distended Palpation (GI): Soft to palpation and Tenderness to palpation present (GI) (Epigastric and lower abdomen) Neuro: General: patient oriented x3 Objective Data Active Medications Acetaminophen (Acetaminophen 325 Mg Tablet) 650 mg PO Q6H PRN PRN Reason: Pain, Mild 1-3,fever,headache Diphenhydramine HCl (Diphenhydramine Hcl 50 Mg/Ml Vial) 12.5 mg IVPUSH Q6H PRN PRN Reason: itching Hydralazine HCl (Hydralazine Hcl 20 Mg/Ml Vial) 10 mg IVPUSH Q6H PRN; Protocol PRN Reason: SBP > 160 Hydromorphone HCl (Hydromorphone Hcl 1 Mg/Ml Syringe) 1 mg IVPUSH Q3H PRN; Protocol PRN Reason: Pain, Severe (Pain Scale 7-10) Last Admin: 11/15/24 06:17 Dose: 1 mg Documented By: SOFY Sodium Chloride (Ns) 1,000 mls @ 100 mls/hr IVCONT .Q10H [facility] Last Admin: 11/15/24 01:11 Dose: 100 mls/hr Documented By: SOFY Melatonin (Melatonin 3 Mg Tablet) 6 mg PO BEDTIME PRN PRN Reason: Insomnia Ondansetron HCl (Ondansetron Hcl 4 Mg/2 Ml Vial) 4 mg IVPUSH Q8H PRN PRN Reason: Nausea and Vomiting Last Admin: 11/14/24 21:27 Dose: 4 mg Documented By: SOFY Pantoprazole Sodium (Pantoprazole Sodium 40 Mg/10 Ml Vial) 40 mg IVPUSH BID@0630,1630 [facility] Last Admin: 11/15/24 06:16 Dose: 40 mg Documented By: SOFY Sodium Chloride (0.9 % Sodium Chloride Flush 3 Ml Syringe) 3 ml IVFLUSH QSHIFT [facility] Last Admin: 11/15/24 08:19 Dose: Not Given Documented By: NETTA Non-Admin Reason: Off unit: Dialysis Sumatriptan Succinate (Sumatriptan Succinate 25 Mg Tablet) 25 mg PO DAILY PRN PRN Reason: Migraine Headache Labs 11/13/24 22:08 11/13/24 22:08 Procedures Date of Service Date of Service: 11/15/24 Progress Note: A&P Assessment and plan (1) Small bowel obstruction: Status: Acute Plan 54-year-old female complex bariatric history status post sleeve gastrectomy revised to gastric bypass complicated by several episodes of GI bleeds from marginal ulcers and most recently last month undergoing repeat EGD and diagnostic laparoscopy with lysis of adhesions and [facility]. Admitted for partial small bowel obstruction. Today doing well, feels improved. Patient is seen while receiving dialysis. Her pain is overall improving, still requiring pain medications as as it wears off she begins to feel some increased pain. Additionally she does have some mild nausea still but this is well controlled with medication. No further episodes of vomiting. She does report passing some gas, has not passed a bowel movement, last bowel movement 11/13. She remains NPO. On exam the abdomen is soft relatively benign. Some mild tenderness in the epigastric area. Does not appear distended. No surgical intervention at this time. We will continue with NPO possibly advanced to clear diet tomorrow. Placed a consult for bariatric surgery given the patient's complex bariatric surgery history. NPO. Serial abdominal exams Bariatric consult pending. Time Spent With Patient Time: Total time managing care of this patient today ____ minutes. Quality Stroke Does the patient have a stroke diagnosis?: No VTE Prior VTE?: No VTE Risk Level:: Surgical - low VTE Device Contraindication: N/A - Device Ordered VTE Drug Contraindication: N/A - Med Ordered
--- NOTE | 2024-11-15 13:52 | MHC.CLN ---
CONSULT ROUTINE NUTRITION CONSULT. PATIENT IS NPO WITH SBO. ESRD ON HEMODIALYSIS. HX GASTRIC BYPASS SURGERY. REVIEW OF EMR SHOWS WEIGHT ESSENTIALLY STABLE X [address] MONITOR FOR DIET ADVANCEMENT.
--- NOTE | 2024-11-15 15:26 | MHC.CM.PN ---
IMM delivered. Patient lives in an apartment w/ her son. 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 Has cane, walker, and rollator. HD @ [facility] M[facility]F, 10 am chair time, sister Kristyn transports. PCP Rozina Lang MD HCP on file and verified. DP: Home, ? new VNA, sister to transport. CM will continue to follow.
--- NOTE | 2024-11-15 20:55 | PM.CNNEP ---
History of Present Illness Reason for Consult Consult date: 11/15/24 Chief Complaint Chief complaint: Vomiting History of Present Illness Narrative: RTANE consulted for ESRD managemnet In summary a 54-year-old F ESRD mwf HD at [facility] HDU with a complex bariatric history status post sleeve gastrectomy revised to gastric bypass complicated by several episodes of GI bleeds from marginal ulcers and most recently last month undergoing repeat EGD and diagnostic laparoscopy with lysis of adhesions and [facility]. Adm 11/13 with incr obed painand luisa SBO Review of Systems Review of Systems Patient currently experiencing nausea with the abdominal pain. Patient is not having any vomiting. Patient denies any bloody stool currently or hemoptysis. Patient denies any chest pain or shortness of breath at rest. Patient reports that she has a history of migraine and is worried that she will have 1. 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 Lumbar back pain with radiculopathy affecting left lower extremity Physical exam (~02/14/21) Peritoneal dialysis catheter in place Polyarthralgia Dyslipidemia Family history of ovarian cancer Abnormal mammogram of right breast Angina pectoris syndrome Chest pain Constipation Nephrosclerosis Renal interstitial fibrosis Obesity (BMI 30-39.9) Back pain GERD (gastroesophageal reflux disease) History of headache HTN (hypertension) Family History Family History Father Asthma Mother Asthma Hypertension Ovarian cancer Maternal Grandfather Myocardial infarction Paternal Grandmother Stroke Surgical History Surgical History History of sleeve gastrectomy S/P arteriovenous (AV) graft placement Fistula Hx of colonoscopy Hx of hysterectomy Hx of tubal ligation History of endometrial ablation Social History Social History Household Members: Children Household Members Other:: 30 year old special needs son Housing: Apartment Are you a primary care management coordinator to a significant other at home: No Do you presently have visiting nurse or other home services: No Alcohol intake: never Comment: low fall risk Patient Tobacco Use Status: Former Tobacco user Tobacco use type: Cigarette Cigarette Packs Per Day: 1 Cigarettes Per Day: 1 Years Smoked: 10+ e-Cigarette/Vaping Use: Never Used Second Hand Smoke Exposure: No Substance Use Type: Caffiene Advance Directives Date on File: 04/27/20 service: No Current occupational status: employed Cognitive needs: No Hearing needs: No Vision needs: Yes (reading glasses) Meds Allergies Allergy/AdvReac Type Severity Reaction Status Date / Time ibuprofen Allergy Severe Unknown Verified 11/13/24 21:40 nifedipine Allergy Intermediate hives, leg Verified 11/13/24 21:40 edema Active Medications: Current Medications Acetaminophen (Acetaminophen 325 Mg Tablet) 650 mg PO Q6H PRN PRN Reason: Pain, Mild 1-3,fever,headache Diphenhydramine HCl (Diphenhydramine Hcl 50 Mg/Ml Vial) 12.5 mg IVPUSH Q6H PRN PRN Reason: itching Last Admin: 11/15/24 09:01 Dose: 12.5 mg Hydralazine HCl (Hydralazine Hcl 20 Mg/Ml Vial) 10 mg IVPUSH Q6H PRN; Protocol PRN Reason: SBP > 160 Hydromorphone HCl (Hydromorphone Hcl 1 Mg/Ml Syringe) 1 mg IVPUSH Q3H PRN; Protocol PRN Reason: Pain, Severe (Pain Scale 7-10) Last Admin: 11/15/24 16:05 Dose: 1 mg Sodium Chloride (Ns) 1,000 mls @ 100 mls/hr IVCONT .Q10H GERARDO Last Admin: 11/15/24 10:53 Dose: 100 mls/hr Melatonin (Melatonin 3 Mg Tablet) 6 mg PO BEDTIME PRN PRN Reason: Insomnia Ondansetron HCl (Ondansetron Hcl 4 Mg/2 Ml Vial) 4 mg IVPUSH Q8H PRN PRN Reason: Nausea and Vomiting Last Admin: 11/15/24 10:53 Dose: 4 mg Pantoprazole Sodium (Pantoprazole Sodium 40 Mg/10 Ml Vial) 40 mg IVPUSH BID@0630,1630 [facility] Last Admin: 11/15/24 15:56 Dose: 40 mg Sodium Chloride (0.9 % Sodium Chloride Flush 3 Ml Syringe) 3 ml IVFLUSH QSHIFT [facility] Last Admin: 11/15/24 15:56 Dose: Not Given Sumatriptan Succinate (Sumatriptan Succinate 25 Mg Tablet) 25 mg PO DAILY PRN PRN Reason: Migraine Headache Home Medications ?Medication ?Instructions ?Recorded ?Confirmed ?Last Taken ?Type ferrous sulfate 325 mg (65 mg 325 mg PO DAILY 05/11/20 11/14/24 09/16/24 History iron) tablet,delayed release cyanocobalamin (vitamin B-12) 1,000 mcg PO DAILY 10/17/20 11/14/24 09/16/24 History 1,000 mcg tablet acetaminophen 500 mg capsule 1,000 mg PO Q8H PRN Pain 08/10/23 11/14/24 09/16/24 History (Mapap (acetaminophen)) fluticasone propionate 50 1 spray intranasal DAILY PRN 08/10/23 11/14/24 05/18/24 History mcg/actuation nasal Allergy Symptoms spray,suspension [id number] 45 mg-folic 1 cap PO DAILY 08/10/23 11/14/24 09/16/24 History acid 800 mcg-vit K 120 mcg capsule (Bariatric Multivitamins) parenteral amino acid 15% no.5 15 0.5 ea IV MOWEFR@0900 08/10/23 11/14/24 06/02/24 History % combination no.5 intravenous solution (Clinisol SF) zinc acetate 50 mg (zinc) capsule 100 mg PO DAILY 05/19/24 11/14/24 09/16/24 History meclizine 12.5 mg tablet 12.5 mg PO TID PRN Nausea And 06/04/24 11/14/24 06/04/24 History Vomiting clotrimazole-betamethasone 1 1 appl topical DAILY PRN Rash 09/20/24 11/14/24 Unknown History %-0.05 % topical cream carvedilol 6.25 mg tablet 6.25 mg PO BID PRN Tachycardia 11/14/24 11/14/24 Unknown History midodrine 5 mg tablet 5 mg PO TID 11/14/24 11/14/24 Unknown History misoprostol 200 mcg tablet 200 mcg PO 5XD 11/14/24 11/14/24 Unknown History omeprazole 40 mg capsule,delayed 40 mg PO BID@0630,1630 11/14/24 11/14/24 Unknown History release pantoprazole 40 mg tablet,delayed 40 mg PO QAM 11/14/24 11/14/24 Unknown History release sucralfate 1 gram tablet 1 g PO QIDWMHS 11/14/24 11/14/24 Unknown History Physical Exam Vital Signs: Last Vital Signs Temp 97.7 F 11/15/24 19:50 Pulse 84 11/15/24 19:50 Resp 18 11/15/24 19:50 BP 138/63 11/15/24 19:50 Pulse Ox 96 11/15/24 19:50 O2 Del Method Room Air 11/15/24 19:50 BMI result Body Mass Index 22.6 Const General: cooperative, comfortable, no acute distress and acute distress mild Orientation/consciousness: oriented to person, oriented to place, oriented to time and patient oriented x3 Resp Effort & Inspection: normal respiratory effort Auscultation: clear to auscultation bilaterally Cardio Rate: regular rate Rhythm: regular rhythm GI Other: Quiet but active bowel sounds throughout Inspection: No distended Palpation (GI): Soft to palpation and Tenderness to palpation present (GI) (Epigastric and lower abdomen) Skin Other: Nonicteric Neuro General: oriented to person, oriented to place, oriented to time and patient oriented x3 Psych Appearance: grossly normal Mental Status: mental status grossly normal Speech and movement: Normal speech and movement present Affect: normal affect Attitude: cooperative Thought process: Normal thought process present Thought content: Normal thought content present Insight: Good insight present (Psych) Judgement: Good judgement present (Psych) Results Lab Results 11/13/24 22:08 11/13/24 22:08 Lab results: Chemistry 11/13/24 22:08 Sodium 138 Potassium 3.9 D Carbon Dioxide 29 BUN 32 H Creatinine 4.21 H* Calcium 9.4 Hematology 11/13/24 22:08 WBC 6.9 Hgb 7.5 L Plt Count 351 D Urinalysis 11/13/24 23:25 Urine Color Yellow Urine Appearance Clear Urine pH >= 9.0 Ur Specific [place] <= 1.005 Urine Protein 100 (2+) H Urine Glucose (UA) Negative Urine Ketones Negative Urine Blood Trace H Urine Nitrite Negative Ur Leukocyte Esterase Negative Urine RBC 3-5 H Urine WBC 0-5 Ur Squamous Epith Cells 6-10 Hyaline Casts 0-2 Assessment and Plan (1) Small bowel obstruction: Status: Acute [facility] ABD pain: w/u in prgress Anemia: EPO def and recurrent GIB MBD of ESRD REC: cont HD 3x/wk; GI eval , repeat HB and Xfuyse Hb < 7.0 Procedures Date of Service Date of Service: 11/15/24
[2024-11-16 03:39] VITALS: BP 103/57; PULSE 93; RESP 18; TEMP 36.1; O2SAT 97
--- NOTE | 2024-11-16 07:41 | P.HPGS_ITS ---
History of Present Illness History of Present Illness Date of Service: 11/16/24 Chief complaint: Vomiting Narrative: Meliza Perry is a 54 year old female who presented with nausea and vomiting. Denied any significant abdominal pain. The patient had what it seems a sleeve gastrectomy by Dr. Coto at [facility]. Due to some narrowing at the sleeve or obstructive symptoms she was converted to a gastric bypass. She also had a third operation by Dr. Coto but it is unclear what she had. Last month she was [place] [facility] [place] [facility] and had another operation there by Dr. Mitchell. Feels better now. 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 Lumbar back pain with radiculopathy affecting left lower extremity Physical exam (~02/14/21) Peritoneal dialysis catheter in place Polyarthralgia Dyslipidemia Family history of ovarian cancer Abnormal mammogram of right breast Angina pectoris syndrome Chest pain Constipation Nephrosclerosis Renal interstitial fibrosis Obesity (BMI 30-39.9) Back pain GERD (gastroesophageal reflux disease) History of headache HTN (hypertension) Family History Family History Father Asthma Mother Asthma Hypertension Ovarian cancer Maternal Grandfather Myocardial infarction Paternal Grandmother Stroke Surgical History Surgical History History of sleeve gastrectomy S/P arteriovenous (AV) graft placement Fistula Hx of colonoscopy Hx of hysterectomy Hx of tubal ligation History of endometrial ablation Social History Social History Household Members: Children Household Members Other:: 30 year old special needs son Housing: Apartment Are you a primary direct care provider to a significant other at home: No Do you presently have visiting nurse or other home services: No Alcohol intake: never Comment: low fall risk Patient Tobacco Use Status: Former Tobacco user Tobacco use type: Cigarette Cigarette Packs Per Day: 1 Cigarettes Per Day: 1 Years Smoked: 10+ e-Cigarette/Vaping Use: Never Used Second Hand Smoke Exposure: No Substance Use Type: Caffiene Advance Directives Date on File: 04/27/20 service: No Current occupational status: employed Cognitive needs: No Hearing needs: No Vision needs: Yes (reading glasses) Meds Allergies Allergy/AdvReac Type Severity Reaction Status Date / Time ibuprofen Allergy Severe Unknown Verified 11/13/24 21:40 nifedipine Allergy Intermediate hives, leg Verified 11/13/24 21:40 edema Active Medications: Current Medications Acetaminophen (Acetaminophen 325 Mg Tablet) 650 mg PO Q6H PRN PRN Reason: Pain, Mild 1-3,fever,headache Diphenhydramine HCl (Diphenhydramine Hcl 50 Mg/Ml Vial) 12.5 mg IVPUSH Q6H PRN PRN Reason: itching Last Admin: 11/15/24 09:01 Dose: 12.5 mg Hydralazine HCl (Hydralazine Hcl 20 Mg/Ml Vial) 10 mg IVPUSH Q6H PRN; Protocol PRN Reason: SBP > 160 Hydromorphone HCl (Hydromorphone Hcl 1 Mg/Ml Syringe) 1 mg IVPUSH Q3H PRN; Protocol PRN Reason: Pain, Severe (Pain Scale 7-10) Last Admin: 11/16/24 03:34 Dose: 1 mg Melatonin (Melatonin 3 Mg Tablet) 6 mg PO BEDTIME PRN PRN Reason: Insomnia Ondansetron HCl (Ondansetron Hcl 4 Mg/2 Ml Vial) 4 mg IVPUSH Q8H PRN PRN Reason: Nausea and Vomiting Last Admin: 11/16/24 06:18 Dose: 4 mg Pantoprazole Sodium (Pantoprazole Sodium 40 Mg/10 Ml Vial) 40 mg IVPUSH BID@0630,1630 [facility] Last Admin: 11/16/24 05:51 Dose: 40 mg Sodium Chloride (0.9 % Sodium Chloride Flush 3 Ml Syringe) 3 ml IVFLUSH QSHIFT [facility] Last Admin: 11/16/24 01:10 Dose: Not Given Sumatriptan Succinate (Sumatriptan Succinate 25 Mg Tablet) 25 mg PO DAILY PRN PRN Reason: Migraine Headache Home Medications ?Medication ?Instructions ?Recorded ?Confirmed ?Last Taken ?Type ferrous sulfate 325 mg (65 mg 325 mg PO DAILY 05/11/20 11/14/24 09/16/24 History iron) tablet,delayed release cyanocobalamin (vitamin B-12) 1,000 mcg PO DAILY 10/1711/14/24 09/16/24 History 1,000 mcg tablet acetaminophen 500 mg capsule 1,000 mg PO Q8H PRN Pain 08/10/23 11/14/24 09/16/24 History (Mapap (acetaminophen)) fluticasone propionate 50 1 spray intranasal DAILY PRN 08/10/23 11/14/24 05/18/24 History mcg/actuation nasal Allergy Symptoms spray,suspension urukyjny-[id number]-ufzf 45 mg-folic 1 cap PO DAILY 07/1311/14/24 09/16/24 History acid 800 mcg-vit K 120 mcg capsule (Bariatric Multivitamins) parenteral amino acid 15% no.5 15 0.5 ea IV MOWEFR@090 0 08/10/23 11/14/24 06/02/24 History % combination no.5 intravenous solution (Clinisol SF) zinc acetate 50 mg (zinc) capsule 100 mg PO DAILY 11/0411/14/24 09/16/24 History meclizine 12.5 mg tablet 12.5 mg PO TID PRN Nausea An d 06/04/24 11/14/24 06/04/24 History Vomiting clotrimazole-betamethasone 1 1 appl topical DAILY PRN Rash 09/20/24 11/14/24 Unknown History %-0.05 % topical cream carvedilol 6.25 mg tablet 6.25 mg PO BID PRN Tachycard ia 11/14/24 11/14/24 Unknown History midodrine 5 mg tablet 5 mg PO TID 11/14/24 5 Unknown History misoprostol 200 mcg tablet 200 mcg PO 5XD 11/14/2407/04 Unknown History omeprazole 40 mg capsule,delayed 40 mg PO BID@0630,163 0 11/14/24 11/14/24 Unknown History release pantoprazole 40 mg tablet,delayed 40 mg PO QAM 5 11/14/24 Unknown History release sucralfate 1 gram tablet 1 g PO QIDWMHS 11/14/24 1007/04 Unknown History Physical Exam Vital Signs: Vital Signs: Last Vital Signs Temp 97.0 F 11/16/24 03:39 Pulse 93 11/16/24 03:39 Resp 18 11/16/24 03:39 BP 103/57 L 11/16/24 03:39 Pulse Ox 97 11/16/24 03:39 O2 Del Method Room Air 11/16/24 03:39 BMI result Body Mass Index 22.6 GI: Inspection: Yes normal to inspection and Yes incision (well healed) Palpation (GI): Soft to palpation (no abdominal tenderness) Results Results Labs: Urine 11/13/24 Range/Units 23:25 Urine Color Yellow Urine Appearance Clear Urine pH >= 9.0 (5.0-9.0) Ur Specific [place] <= 1.005 (1.005-1.025) Urine Protein 100 (2+) H (Neg-Trace) mg/dL Urine Glucose (UA) Negative (Negative) mg/dL Assessment and Plan (1) Nausea & vomiting: Qualifiers: Vomiting type: unspecified Qualified Code(s): R11.2 - Nausea with vomiting, unspecified Status: Acute Plan 1) Keep NPO for now 2) I need to review all previous operative reports before I make recomendations 3) No evidence on recent Ct for an issue that requires urgent surgical intervention 4) IV vitamin B1, folic acid and IM Vitamin B12 Total time managing care of this patient today: 45 minutes. Quality Stroke Does the patient have a stroke diagnosis?: No VTE Prior VTE?: No VTE Risk Level:: Surgical - low VTE Device Contraindication: N/A - Device Ordered VTE Drug Contraindication: N/A - Med Ordered Procedures Date of Service Date of Service: 11/16/24
[2024-11-16 07:54] VITALS: BP 132/68; PULSE 98; RESP 18; TEMP 36.4; O2SAT 100
--- NOTE | 2024-11-16 08:06 | P.PNGS_ITS ---
Subjective Subjective Date of Service: 11/16/24 <Sergo Beatty PA-C - Last Filed: 11/16/24 08:10> 11/16/24 <Scott Andrews MD - Last Filed: 11/16/24 12:57> Interval history: Feels improved today. Pain now 5/10, continues to endorse mild nausea controlled with medication. She has been ambulating. Passing small amounts of gas, no bowel movement <Sergo Beatty PA-C - Last Filed: 11/16/24 08:10> Physical Exam 2 Vital Signs: Vital Signs: Last Vital Signs Temp 97.6 F 11/16/24 07:54 Pulse 98 11/16/24 07:54 Resp 18 11/16/24 07:54 BP 132/68 11/16/24 07:54 Pulse Ox 100 11/16/24 07:54 O2 Del Method Room Air 11/16/24 07:54 BMI result Body Mass Index 22.6 <Sergo Beatty PA-C - Last Filed: 11/16/24 08:10> Const: General: comfortable and no acute distress <Sergo Beatty PA-C - Last Filed: 11/16/24 08:10> Orientation/consciousness: patient oriented x3 <IRMA Gabriel Last Filed: 11/16/24 08:10> GI: Inspection: No distended <Sergo Beatty PA-C - Last Filed: 11/16/24 08:10> Palpation (GI): Soft to palpation and nontender <Sergo Beatty PA-C - Last Filed: 11/16/24 08:10> Auscultation: normal bowel sounds <Sergo Beatty PA-C - Last Filed: 11/16/24 08:10> Neuro: General: patient oriented x3 <IRMA Gabriel Last Filed: 11/16/24 08:10> Objective Data Active Medications Acetaminophen (Acetaminophen 325 Mg Tablet) 650 mg PO Q6H PRN PRN Reason: Pain, Mild 1-3,fever,headache Diphenhydramine HCl (Diphenhydramine Hcl 50 Mg/Ml Vial) 12.5 mg IVPUSH Q6H PRN PRN Reason: itching Last Admin: 11/15/24 09:01 Dose: 12.5 mg Documented By: NETTA Hydralazine HCl (Hydralazine Hcl 20 Mg/Ml Vial) 10 mg IVPUSH Q6H PRN; Protocol PRN Reason: SBP > 160 Hydromorphone HCl (Hydromorphone Hcl 1 Mg/Ml Syringe) 1 mg IVPUSH Q3H PRN; Protocol PRN Reason: Pain, Severe (Pain Scale 7-10) Last Admin: 11/16/24 07:40 Dose: 1 mg Documented By: PRACHI Thiamine HCl 100 mg/ Sodium (Chloride) 101 mls @ 202 mls/hr IV DAILY [facility] Folic Acid 1 mg/ Sodium (Chloride) 50.2 mls @ 100.4 mls/hr IV DAILY [facility] Melatonin (Melatonin 3 Mg Tablet) 6 mg PO BEDTIME PRN PRN Reason: Insomnia Ondansetron HCl (Ondansetron Hcl 4 Mg/2 Ml Vial) 4 mg IVPUSH Q8H PRN PRN Reason: Nausea and Vomiting Last Admin: 11/16/24 06:18 Dose: 4 mg Documented By: LAKISHA Pantoprazole Sodium (Pantoprazole Sodium 40 Mg/10 Ml Vial) 40 mg IVPUSH BID@0630,1630 [facility] Last Admin: 11/16/24 05:51 Dose: 40 mg Documented By: PORTIARISEugene Sodium Chloride (0.9 % Sodium Chloride Flush 3 Ml Syringe) 3 ml IVFLUSH QSHIFT [facility] Last Admin: 11/16/24 07:44 Dose: Not Given Documented By: PRACHI Non-Admin Reason: IV Running Sumatriptan Succinate (Sumatriptan Succinate 25 Mg Tablet) 25 mg PO DAILY PRN PRN Reason: Migraine Headache <Sergo Beatty PA-C - Last Filed: 11/16/24 08:10> Labs CBC & Chem 7: 11/13/24 22:08 11/13/24 22:08 <Sergo Beatty PA-C - Last Filed: 11/16/24 08:10> Procedures Date of Service Date of Service: 11/16/24 <Sergo Beatty PA-C - Last Filed: 11/16/24 08:10> 11/16/24 <Scott Andrews MD - Last Filed: 11/16/24 12:57> Progress Note: A&P Assessment and plan (1) Small bowel obstruction: Status: Acute <Sergo Beatty PA-C - Last Filed: 11/16/24 08:10> Assessment and Plan: 54-year-old female complex bariatric history status post sleeve gastrectomy revised to gastric bypass complicated by several episodes of GI bleeds from marginal ulcers and most recently last month undergoing repeat EGD and diagnostic laparoscopy with lysis of adhesions and [facility]. Admitted for partial small bowel obstruction. Today doing well, feels improved. Her pain is overall improving. Nausea improving, although she is still requiring medications. She does report passing some gas, has not passed a bowel movement, last bowel movement 10/4. She remains NPO. Pending bariatric recommendations may be able to advance to clear liquid diet this afternoon. On exam the abdomen is soft, benign. Some mild tenderness throughout the abdomen. She has not Niranjan active bowel sounds throughout the abdomen. Does not appear distended. No surgical intervention at this time. Bariatric consult appreciated NPO, pending bariatric recommendations Serial abdominal exams <Sergo Beatty PA-C - Last Filed: 11/16/24 08:10> 54-year-old female complex bariatric history status post sleeve gastrectomy revised to gastric bypass complicated by several episodes of GI bleeds from marginal ulcers and most recently last month undergoing repeat EGD and diagnostic laparoscopy with lysis of adhesions and [facility]. Admitted for partial small bowel obstruction. Today doing well, feels improved. Her pain is overall improving. Nausea improving, although she is still requiring medications. She does report passing some gas, has not passed a bowel movement, last bowel movement 10/4. She remains NPO. Pending bariatric recommendations may be able to advance to clear liquid diet this afternoon. On exam the abdomen is soft, benign. Some mild tenderness throughout the abdomen. She has not Niranjan active bowel sounds throughout the abdomen. Does not appear distended. No surgical intervention at this time. Bariatric consult appreciated NPO, pending bariatric recommendations Serial abdominal exams Patient seen and examined independently and I agree with the above assessment and plan. Patient evaluated by Dr. Berry this morning and will provide further recommendations pending review of the medical records. We will keep NPO for now. <Scott Andrews MD - Last Filed: 11/16/24 12:57> Time Spent With Patient Time: Total time managing care of this patient today ____ minutes. <Sergo Beatty PA-C - Last Filed: 11/16/24 08:10> Quality Stroke Does the patient have a stroke diagnosis?: No <Sergo Beatty PA-C - Last Filed: 11/16/24 08:10> VTE Prior VTE?: No <Sergo Beatty PA-C - Last Filed: 11/16/24 08:10> VTE Risk Level:: Surgical - low <Sergo Beatty PA-C - Last Filed: 11/16/24 08:10> VTE Device Contraindication: N/A - Device Ordered <Sergo Beatty PA-C - Last Filed: 11/16/24 08:10> VTE Drug Contraindication: N/A - Med Ordered <Sergo Beatty PA-C - Last Filed: 11/16/24 08:10>
[2024-11-16] MEDS: Thiamine HCL 100 MG in 0.9 % Sodium Chloride 100 ML 202 MG IV (10:24)
[2024-11-16 11:39] VITALS: BP 140/68; PULSE 98; RESP 16; TEMP 36.8; O2SAT 99
[2024-11-16 14:55] VITALS: BP 131/61; PULSE 94; RESP 16; TEMP 36.7; O2SAT 100
[2024-11-16] MEDS: Lactated Ringers 1,000 ML 80 ML IVCONT (15:15)
[2024-11-16] MEDS: 0.9 % Sodium Chloride Flush 3 ML SYRINGE IVFLUSH (15:15)
[2024-11-16 19:53] VITALS: BP 131/63; PULSE 95; RESP 18; TEMP 36.7; O2SAT 96
[2024-11-16] MEDS: Sucralfate Oral Suspension 1 GM/10 ML ORAL.SUSP PO (20:58)
--- NOTE | 2024-11-16 22:30 | PM.PNNEP ---
Subjective Subjective Date of Service: 11/16/24 Interval history: pt seen and examined Physical Exam Exam: Exam: cvs: s1s2 Rs; cta ABd; ost L ue AVG Vital Signs: Vital Signs: Last Vital Signs Temp 98.0 F 11/16/24 19:53 Pulse 95 11/16/24 19:53 Resp 18 11/16/24 19:53 BP 131/63 11/16/24 19:53 Pulse Ox 96 11/16/24 19:53 O2 Del Method Room Air 11/16/24 19:53 BMI result Body Mass Index 22.6 Objective Data Labs 11/13/24 22:08 11/13/24 22:08 Procedures Date of Service Date of Service: 11/16/24 Assessment & Plan Assessment and plan (1) ESRD on dialysis: Status: Acute Plan ESRD: mwf [place] HDU Recurrent GIB ABD pain: w/u in prgress for SBO- pt npo with ivf , monitor closely for hypervolemia Anemia: EPO def and recurrent GIB MBD of ESRD REC: cont HD 3x/wk; GI eval , repeat HB and Xfuyse Hb < 7.0 Time Spent With Patient Time: Total time managing care of this patient today ____ minutes. Progress Note: Quality Stroke Does the patient have a stroke diagnosis?: No
[2024-11-16 23:29] VITALS: BP 153/73; PULSE 99; RESP 18; TEMP 36.6; O2SAT 97
[2024-11-17] VITALS (8 sets, daily range): BP systolic 138–155; BP diastolic 67–75; PULSE 86–97; RESP 18–20; TEMP 36.4–37; O2SAT 97–100
[2024-11-17] MEDS: Lactated Ringers 1,000 ML 80 ML IVCONT ×2 (02:47→14:24)
[2024-11-17] MEDS: Sucralfate Oral Suspension 1 GM/10 ML ORAL.SUSP PO ×4 (07:48→20:37)
--- NOTE | 2024-11-17 08:04 | PM.PNGS ---
Subjective Subjective Date of Service: 11/17/24 Interval history: feeling improved. Pain is better today, mild tenderness in epigastric area. continues to have mild nausea, well controlled with medication. no episodes of vomiting. she has been ambulating. Passing gas, no BM. Physical Exam Vital Signs: Vital Signs: Last Vital Signs Temp 97.7 F 11/17/24 02:59 Pulse 94 11/17/24 02:59 Resp 18 11/17/24 02:59 BP 138/67 11/17/24 02:59 Pulse Ox 98 11/17/24 02:59 O2 Del Method Room Air 11/17/24 02:59 BMI result Body Mass Index 22.6 Const: General: comfortable and no acute distress Orientation/consciousness: patient oriented x3 GI: Inspection: No distended Palpation (GI): Soft to palpation, Tenderness to palpation present (GI) (mild) in the epigastrum and no guarding Percussion: Yes normal to percussion Neuro: General: patient oriented x3 Objective Data Active Medications Acetaminophen (Acetaminophen 325 Mg Tablet) 650 mg PO Q6H PRN PRN Reason: Pain, Mild 1-3,fever,headache Diphenhydramine HCl (Diphenhydramine Hcl 50 Mg/Ml Vial) 12.5 mg IVPUSH Q6H PRN PRN Reason: itching Last Admin: 11/15/24 09:01 Dose: 12.5 mg Documented By: NETTA Hydralazine HCl (Hydralazine Hcl 20 Mg/Ml Vial) 10 mg IVPUSH Q6H PRN; Protocol PRN Reason: SBP > 160 Hydromorphone HCl (Hydromorphone Hcl 1 Mg/Ml Syringe) 1 mg IVPUSH Q3H PRN; Protocol PRN Reason: Pain, Severe (Pain Scale 7-10) Last Admin: 11/17/24 06:15 Dose: 1 mg Documented By: CRISTINE Thiamine HCl 100 mg/ Sodium (Chloride) 101 mls @ 202 mls/hr IV DAILY [facility] Last Infusion: 11/16/24 11:23 Dose: Infused Documented By: PRACHI Folic Acid 1 mg/ Sodium (Chloride) 50.2 mls @ 100.4 mls/hr IV DAILY [facility] Last Infusion: 11/16/24 11:51 Dose: Infused Documented By: HO.COLBURK Lactated Ringer's (Lr) 1,000 mls @ 80 mls/hr IVCONT .[id number] [facility] Last Admin: 11/17/24 02:47 Dose: 80 mls/hr Documented By: CRISTINE Melatonin (Melatonin 3 Mg Tablet) 6 mg PO BEDTIME PRN PRN Reason: Insomnia Ondansetron HCl (Ondansetron Hcl 4 Mg/2 Ml Vial) 4 mg IVPUSH Q8H PRN PRN Reason: Nausea and Vomiting Last Admin: 11/17/24 02:52 Dose: 4 mg Documented By: CRISTINE Sodium Chloride (0.9 % Sodium Chloride Flush 3 Ml Syringe) 3 ml IVFLUSH QSHIFT [facility] Last Admin: 11/17/24 07:49 Dose: Not Given Documented By: JOVANA Non-Admin Reason: IV Running Sucralfate (Sucralfate Oral Suspension 1 Gm/10 Ml Oral.Susp) 1 gm PO QIDACHS [facility] Last Admin: 11/17/24 07:48 Dose: 1 gm Documented By: JOVANA Sumatriptan Succinate (Sumatriptan Succinate 25 Mg Tablet) 25 mg PO DAILY PRN PRN Reason: Migraine Headache Labs 11/13/24 22:08 11/13/24 22:08 Procedures Date of Service Date of Service: 11/17/24 Progress Note: A&P Assessment and plan (1) Small bowel obstruction: Status: Acute Plan 54-year-old female complex bariatric history status post sleeve gastrectomy revised to gastric bypass complicated by several episodes of GI bleeds from marginal ulcers and most recently last month undergoing repeat EGD and diagnostic laparoscopy with lysis of adhesions and [facility]. Admitted for partial small bowel obstruction. Today doing well, feels improved. Her pain is overall improving. Nausea improving, although she is still requiring medications. She does report passing some gas, has not passed a bowel movement, last bowel movement 11/13. She remains NPO. Pending bariatric recommendations may be able to advance to clear liquid diet this afternoon. On exam the abdomen is soft, benign. Some mild tenderness in the epigastric area of the abdomen. Does not appear distended. No surgical intervention at this time. Can likely advance diet, will wait for recommendations from Dr. Berry for further plan once he has had the chance to review her surgical history Bariatric consult appreciated NPO, pending bariatric recommendations Serial abdominal exams Recommended ambulation as tolerated Time Spent With Patient Time: Total time managing care of this patient today ____ minutes. Quality Stroke Does the patient have a stroke diagnosis?: No VTE Prior VTE?: No VTE Risk Level:: Surgical - low VTE Device Contraindication: N/A - Device Ordered VTE Drug Contraindication: N/A - Med Ordered
[2024-11-17] MEDS: Thiamine HCL 100 MG in 0.9 % Sodium Chloride 100 ML 200 MG IV (09:38)
--- NOTE | 2024-11-17 10:57 | P.PNGS_ITS ---
Subjective Subjective Date of Service: 11/17/24 Interval history: I received and reviewed all previous operative reports. The patient had originally a sleeve gastrectomy by Dr. Coto in 02/2022. The patient had UGI bleeding immediately after surgery requiring urgent endoscopy. Subsequently the patient developed severe GERD and obstructive symptoms. Dr. 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 Subsequently Dr. Coto performed a laparosscopic Sae-en-Y gastric bypass in 06/2023 which corresponds with the findings I can see on recent CT. However this bypass was not done properly with a very large pouch and it was unclear if the stomach was divided. In addition, the patient had another GI bleed immediately postop requiring urgent EGD with clips. The described technical issues with the gastric bypass are also supported by the last (4th) surgery the patient had in 10/2024 at [facility] by Dr. Mao when she presented with UGI bleeding. He described a very large pouch very inflamed. There was a lateral G-J anastomosis but the sleeve was not divided. He could pass the scope in the G-J anastomosis but not distally to the sleeve due to the pre-existing stricture. All these explained to the patient today in detail. Physical Exam 2 Vital Signs: Vital Signs: Last Vital Signs Temp 98.2 F 11/17/24 10:18 Pulse 97 11/17/24 10:18 Resp 18 11/17/24 10:18 BP 138/70 11/17/24 10:18 Pulse Ox 100 11/17/24 10:18 O2 Del Method Room Air 11/17/24 10:18 BMI result Body Mass Index 22.6 GI: Inspection: Yes normal to inspection, Yes incision (well healed) and Yes obesity Palpation (GI): Soft to palpation Objective Data Active Medications Acetaminophen (Acetaminophen 325 Mg Tablet) 650 mg PO Q6H PRN PRN Reason: Pain, Mild 1-3,fever,headache Diphenhydramine HCl (Diphenhydramine Hcl 50 Mg/Ml Vial) 12.5 mg IVPUSH Q6H PRN PRN Reason: itching Last Admin: 11/15/24 09:01 Dose: 12.5 mg Documented By: NETTA Hydralazine HCl (Hydralazine Hcl 20 Mg/Ml Vial) 10 mg IVPUSH Q6H PRN; Protocol PRN Reason: SBP > 160 Hydromorphone HCl (Hydromorphone Hcl 1 Mg/Ml Syringe) 1 mg IVPUSH Q3H PRN; Protocol PRN Reason: Pain, Severe (Pain Scale 7-10) Last Admin: 11/17/24 09:38 Dose: 1 mg Documented By: JOVANA Thiamine HCl 100 mg/ Sodium (Chloride) 101 mls @ 202 mls/hr IV DAILY [facility] Last Infusion: 11/17/24 10:09 Dose: Infused Documented By: JOVANA Folic Acid 1 mg/ Sodium (Chloride) 50.2 mls @ 100.4 mls/hr IV DAILY [facility] Last Admin: 11/17/24 10:23 Dose: 100.4 mls/hr Documented By: JOVANA Comments: Late due to being at dialysis. Lactated Ringer's (Lr) 1,000 mls @ 80 mls/hr IVCONT .[id number] [facility] Last Admin: 11/17/24 02:47 Dose: 80 mls/hr Documented By: CRISTINE Melatonin (Melatonin 3 Mg Tablet) 6 mg PO BEDTIME PRN PRN Reason: Insomnia Ondansetron HCl (Ondansetron Hcl 4 Mg/2 Ml Vial) 4 mg IVPUSH Q8H PRN PRN Reason: Nausea and Vomiting Last Admin: 11/17/24 02:52 Dose: 4 mg Documented By: CRISTINE Sodium Chloride (0.9 % Sodium Chloride Flush 3 Ml Syringe) 3 ml IVFLUSH QSHIFT [facility] Last Admin: 11/17/24 07:49 Dose: Not Given Documented By: JOVANA Non-Admin Reason: IV Running Sucralfate (Sucralfate Oral Suspension 1 Gm/10 Ml Oral.Susp) 1 gm PO QIDACHS [facility] Last Admin: 11/17/24 07:48 Dose: 1 gm Documented By: JOVANA Sumatriptan Succinate (Sumatriptan Succinate 25 Mg Tablet) 25 mg PO DAILY PRN PRN Reason: Migraine Headache Labs 11/13/24 22:08 11/13/24 22:08 Procedures Date of Service Date of Service: 11/17/24 Progress Note: A&P Assessment and plan (1) Nausea & vomiting: Status: Acute Assessment and Plan: 1. Keep NPO for now. Plan for EGD tomorrow to assess the anatomy better. Risks of bleeding and perforation were discussed with the patient. Following that, I think that the patient could be discharged from bariatric standpoint. I explained to her that she cannot smoke cigarettes at all (she stated that she quit after the last operation). I also emphasized the importance to follow in my office regularly to create a meal plan that can be tolerated and provide nutritionally what she needs to avoid recurrence of this issue. As I told her, this may need surgical revision at some point but this is not a path we want to pursue if we can avoid it. 2. She will need to be discharged on Pantoprazole 40mg/d and Sucralfate 10ml q6 hours (not tablets). Time Spent With Patient Time: Total time managing care of this patient today ____ minutes. Quality Stroke Does the patient have a stroke diagnosis?: No VTE Prior VTE?: No VTE Risk Level:: Surgical - low VTE Device Contraindication: N/A - Device Ordered VTE Drug Contraindication: N/A - Med Ordered
--- NOTE | 2024-11-17 12:47 | MHC.CM.PN ---
EMR REVIEWED. PT IS NOT MEDICALLY CLEARED FOR DC HOME (EGD TOMORROW) CM WILL CONTINUE TO FOLLOW.
[2024-11-17 14:33] LABS: Mean Corpuscular HGB Conc 32.4 g/dl (31.0-35.0); Mean Corpuscular Hemoglobin 31.2 pg (27.0-33.0); Mean Corpuscular Volume 96.3 fL (80.0-98.0); NRBC Abs Auto 0.000 X10*3/uL (0.0-0.012); NRBC Pct Auto 0.0 /100WBC (0.0-0.2); Platelet Count 276 X10*3/uL (160-400); Red Blood Count 2.15 X10*6/uL (4.20-5.50); White Blood Count 5.1 X10*3/uL (4.8-10.8)
[2024-11-17 14:52] LABS: Hemoglobin 6.7 g/dl (12.0-16.0)
[2024-11-17 14:53] LABS: Hematocrit 20.7 % (37.0-47.0)
--- NOTE | 2024-11-17 16:03 | HO.PM.IMPN ---
Subjective Subjective Date of Service: 11/17/24 Interval History: seen and examined this afternoon re-consult for anemia patient seen and examined Awake, alert. Denies any rectal bleeding. Denies dizziness, shortness of breath, abdominal pain Review of Systems Review of Systems: Yes all other systems are reviewed and are negative Constitutional Constitutional: Denies chills and Denies fever(s) Cardiovascular Cardiovascular: Denies chest pain Gastrointestinal Gastrointestinal: Denies abdominal pain, Denies nausea and Denies vomiting Physical Exam Vital Signs: Vital Signs: Last Vital Signs Temp 98.6 F 11/17/24 16:00 Pulse 92 11/17/24 16:00 Resp 20 11/17/24 16:00 BP 155/73 H 11/17/24 16:00 Pulse Ox 99 11/17/24 16:00 O2 Del Method Room Air 11/17/24 16:00 BMI result Body Mass Index 22.6 Const: General: cooperative, comfortable, no acute distress, alert and awake Nutritional Appearance: average body habitus Orientation/consciousness: patient oriented x3 Resp: Effort & Inspection: normal respiratory effort, able to speak in complete sentences, no respiratory distress and no use of accessory muscles Cardio: Rate: regular rate GI: Inspection: No distended Palpation (GI): Soft to palpation and nontender Neuro: General: patient oriented x3, moves all extremities and CN's II-XI intact bilaterally Objective Data Active Medications Acetaminophen (Acetaminophen 325 Mg Tablet) 650 mg PO Q6H PRN PRN Reason: Pain, Mild 1-3,fever,headache Diphenhydramine HCl (Diphenhydramine Hcl 50 Mg/Ml Vial) 12.5 mg IVPUSH Q6H PRN PRN Reason: itching Last Admin: 11/17/24 11:49 Dose: 12.5 mg Documented By: JOVANA Hydralazine HCl (Hydralazine Hcl 20 Mg/Ml Vial) 10 mg IVPUSH Q6H PRN; Protocol PRN Reason: SBP > 160 Hydromorphone HCl (Hydromorphone Hcl 1 Mg/Ml Syringe) 1 mg IVPUSH Q3H PRN; Protocol PRN Reason: Pain, Severe (Pain Scale 7-10) Last Admin: 11/17/24 14:24 Dose: 1 mg Documented By: JOVANA Thiamine HCl 100 mg/ Sodium (Chloride) 101 mls @ 202 mls/hr IV DAILY [facility] Last Infusion: 11/17/24 10:09 Dose: Infused Documented By: JOVANA Folic Acid 1 mg/ Sodium (Chloride) 50.2 mls @ 100.4 mls/hr IV DAILY [facility] Last Infusion: 11/17/24 11:03 Dose: Infused Documented By: JOVANA Lactated Ringer's (Lr) 1,000 mls @ 80 mls/hr IVCONT .[id number] [facility] Last Admin: 11/17/24 14:24 Dose: 80 mls/hr Documented By: JOVANA Melatonin (Melatonin 3 Mg Tablet) 6 mg PO BEDTIME PRN PRN Reason: Insomnia Ondansetron HCl (Ondansetron Hcl 4 Mg/2 Ml Vial) 4 mg IVPUSH Q8H PRN PRN Reason: Nausea and Vomiting Last Admin: 11/17/24 11:00 Dose: 4 mg Documented By: JOVANA Sodium Chloride (0.9 % Sodium Chloride Flush 3 Ml Syringe) 3 ml IVFLUSH QSHIFT [facility] Last Admin: 11/17/24 07:49 Dose: Not Given Documented By: JOVANA Non-Admin Reason: IV Running Sucralfate (Sucralfate Oral Suspension 1 Gm/10 Ml Oral.Susp) 1 gm PO QIDACHS [facility] Last Admin: 11/17/24 11:00 Dose: 1 gm Documented By: JOVANA Sumatriptan Succinate (Sumatriptan Succinate 25 Mg Tablet) 25 mg PO DAILY PRN PRN Reason: Migraine Headache Labs 11/17/24 14:26 11/13/24 22:08 Labs: Laboratory Results - last 24 hr 11/17/24 14:26 MCV 96.3 MCH 31.2 MCHC 32.4 RDW 15.9 Plt Count 276 MPV 8.0 L Absolute Nucleated RBC 0.000 Nucleated RBC % (auto) 0.0 Assessment and Plan (1) Anemia: Status: Acute Plan This is a 54-year-old female with history of ESRD on dialysis MWF with left upper arm graft, hypertension, migraine, h/o GI bleed secondary to gastric ulcer, esophagitis/GERD gastric sleeve requiring multiple revisions including christiano en Y bypass, hidradenitis, fibromyalgia, chronic back pain, MDD, anxiety admitted to surgery service for SBO Acute on chronic anemia history of GI bleed but on this admission Stool for occult negative for blood. Denies rectal bleeding. seen by bariatric surgery, plan for EGD in a.m, was started on Carafate and recommended to be discharged on pantoprazole as well Nephrology recommended transfusion for hemoglobin less than 7, will transfuse 1 unit Follow CBC Small-bowel obstruction Management per surgery ESRD on dialysis MWF Nephrology following rec 1L IVF per 24/hr total as per nephro rec currently NPO, when tolearting diet resume baseline meds we will follow along with you Quality Stroke Does the patient have a stroke diagnosis?: No VTE Prior VTE?: No VTE Risk Level:: Surgical - low VTE Device Contraindication: N/A - Device Ordered VTE Drug Contraindication: N/A - Med Ordered
--- NOTE | 2024-11-17 16:44 | PC.NURSE ---
Per Renal/Bridgette Lofton pt to only recieve 1L/ day LR. Communication received and stopped at 1615.
[2024-11-17] MEDS: 0.9 % Sodium Chloride Flush 3 ML SYRINGE IVFLUSH (20:36)
--- NOTE | 2024-11-17 22:02 | P.PNNP_ITS ---
Subjective Subjective Date of Service: 11/17/24 Interval history: seen and examined this afternoon still npo Physical Exam 2 Exam: Exam: cvs: s1s2 RS; cta ABd; sfot Vital Signs: Vital Signs: Last Vital Signs Temp 97.6 F 11/17/24 20:33 Pulse 89 11/17/24 20:33 Resp 18 11/17/24 20:33 BP 140/67 H 11/17/24 20:33 Pulse Ox 98 11/17/24 20:00 O2 Del Method Room Air 11/17/24 20:00 BMI result Body Mass Index 22.6 Objective Data Labs 11/17/24 14:26 11/13/24 22:08 Labs: Laboratory Results - last 24 hr 11/17/24 11/17/24 14:26 16:23 WBC 5.1 RBC 2.15 L Hgb 6.7 L* Hct 20.7 L* MCV 96.3 MCH 31.2 MCHC 32.4 RDW 15.9 Plt Count 276 MPV 8.0 L Absolute Nucleated RBC 0.000 Nucleated RBC % (auto) 0.0 Blood Type O Positive Antibody Screen NEGATIVE Crossmatch See Detail Procedures Date of Service Date of Service: 11/17/24 Assessment & Plan Assessment and plan (1) ESRD on dialysis: Status: Acute Assessment and Plan: ESRD: [facility] Recurrent GIB ABD pain: w/u in prgress for SBO- pt npo with ivf , monitor closely for hypervolemia - limit ivf to 1 liter / day if feasible @ 80ml /hr Anemia: EPO def and recurrent GIB MBD of ESRD REC: cont HD 3x/wk; GI eval , repeat HB and Xfuyse Hb < 7.0 Time Spent With Patient Time: Total time managing care of this patient today ____ minutes. Progress Note: Quality Stroke Does the patient have a stroke diagnosis?: No
[2024-11-18] VITALS (12 sets, daily range): BP systolic 136–186; BP diastolic 65–92; PULSE 86–104; RESP 14–19; TEMP 36.4–37.9; O2SAT 94–99
[2024-11-18 06:28] LABS: Hematocrit 24.3 % (37.0-47.0); Hemoglobin 7.8 g/dl (12.0-16.0); Mean Corpuscular HGB Conc 32.1 g/dl (31.0-35.0); Mean Corpuscular Hemoglobin 30.2 pg (27.0-33.0); Mean Corpuscular Volume 94.2 fL (80.0-98.0); NRBC Abs Auto 0.000 X10*3/uL (0.0-0.012); NRBC Pct Auto 0.0 /100WBC (0.0-0.2); Platelet Count 275 X10*3/uL (160-400); Red Blood Count 2.58 X10*6/uL (4.20-5.50); White Blood Count 4.2 X10*3/uL (4.8-10.8)
[2024-11-18 06:45] LABS: Anion Gap 15 (12-20); Blood Urea Nitrogen 10 mg/dL (9-16); Calcium 8.6 mg/dL (8.4-10.2); Carbon Dioxide 25 mmol/L (22-29); Chloride 106 mmol/L (96-108); Creatinine Clr Calc Pharmacy 17.8; Estimated Glomerular Filt Rate 15; Potassium 3.3 mmol/L (3.3-5.1); Sodium 143 mmol/L (135-145)
--- NOTE | 2024-11-18 07:31 | P.PNGS_ITS ---
Subjective Subjective Date of Service: 11/18/24 Interval history: Doing okay today, Feels better than when she arrived but feels about the same as yesterday. Mild pain in the upper abdomen. Endorsing nausea, well controlled with medication. No episodes of vomiting. Passing gas, no BM. She is hungry Physical Exam 2 Vital Signs: Vital Signs: Last Vital Signs Temp 98.4 F 11/18/24 04:00 Pulse 87 11/18/24 04:00 Resp 16 11/18/24 04:00 BP 158/79 H 11/18/24 04:00 Pulse Ox 99 11/18/24 04:00 O2 Del Method Room Air 11/18/24 04:00 BMI result Body Mass Index 22.6 Const: General: comfortable and no acute distress O rientation/consciousness: patient oriented x3 Resp: Effort & Inspection: normal respiratory effort and able to speak in complete sentences GI: Inspection: No distended Palpation (GI): Soft to palpation, not firm, Tenderness to palpation present (GI) (generalized tenderness throughout upper abdomen) and no guarding Percussion: Yes normal to percussion Neuro: General: patient oriented x3 Objective Data Active Medications Acetaminophen (Acetaminophen 325 Mg Tablet) 650 mg PO Q6H PRN PRN Reason: Pain, Mild 1-3,fever,headache Diphenhydramine HCl (Diphenhydramine Hcl 50 Mg/Ml Vial) 12.5 mg IVPUSH Q6H PRN PRN Reason: itching Last Admin: 11/17/24 11:49 Dose: 12.5 mg Documented By: JOVANA Hydralazine HCl (Hydralazine Hcl 20 Mg/Ml Vial) 10 mg IVPUSH Q6H PRN; Protocol PRN Reason: SBP > 160 Hydromorphone HCl (Hydromorphone Hcl 1 Mg/Ml Syringe) 1 mg IVPUSH Q3H PRN; Protocol PRN Reason: Pain, Severe (Pain Scale 7-10) Last Admin: 11/18/24 03:40 Dose: 1 mg Documented By: VERONICA Comments: downtime Thiamine HCl 100 mg/ Sodium (Chloride) 101 mls @ 202 mls/hr IV DAILY [facility] Last Infusion: 11/17/24 10:09 Dose: Infused Documented By: JOVANA Folic Acid 1 mg/ Sodium (Chloride) 50.2 mls @ 100.4 mls/hr IV DAILY [facility] Last Infusion: 11/17/24 11:03 Dose: Infused Documented By: JOVANA Lactated Ringer's (Lr) 1,000 mls @ 80 mls/hr IVCONT .[id number] [facility] Last Admin: 11/17/24 23:16 Dose: Not Given Documented By: VERONICA Non-Admin Reason: Physician Held Med Melatonin (Melatonin 3 Mg Tablet) 6 mg PO BEDTIME PRN PRN Reason: Insomnia Ondansetron HCl (Ondansetron Hcl 4 Mg/2 Ml Vial) 4 mg IVPUSH Q8H PRN PRN Reason: Nausea and Vomiting Last Admin: 11/18/24 03:45 Dose: 4 mg Documented By: VERONICA Comments: downtime Sodium Chloride (0.9 % Sodium Chloride Flush 3 Ml Syringe) 3 ml IVFLUSH QSHIFT [facility] Last Admin: 11/17/24 20:36 Dose: 3 ml Documented By: VERONICA Sucralfate (Sucralfate Oral Suspension 1 Gm/10 Ml Oral.Susp) 1 gm PO QIDACHS [facility] Last Admin: 11/17/24 20:37 Dose: 1 gm Documented By: VERONICA Sumatriptan Succinate (Sumatriptan Succinate 25 Mg Tablet) 25 mg PO DAILY PRN PRN Reason: Migraine Headache Labs 11/18/24 05:47 11/18/24 05:47 Labs: Laboratory Results - last 24 hr 11/17/24 11/17/24 11/18/24 14:26 16:23 05:47 MCV 96.3 94.2 MCH 31.2 30.2 MCHC 32.4 32.1 RDW 15.9 16.6 H Plt Count 276 275 MPV 8.0 L 8.8 L Absolute Nucleated RBC 0.000 0.000 Nucleated RBC % (auto) 0.0 0.0 Anion Gap 15 Estim Creat Clear Calc 17.8 Estimated GFR 15 Random Glucose 61 Calcium 8.6 D Blood Type O Positive Antibody Screen NEGATIVE Crossmatch See Detail Procedures Date of Service Date of Service: 11/18/24 Progress Note: A&P Assessment and plan (1) Small bowel obstruction: Status: Acute Plan 54-year-old female complex bariatric history status post sleeve gastrectomy revised to gastric bypass complicated by several episodes of GI bleeds from marginal ulcers and most recently last month undergoing repeat EGD and diagnostic laparoscopy with lysis of adhesions and [facility]. Admitted for partial small bowel obstruction. Today doing well, feels improved. Her pain is overall improving from admission. Continues to have mild pain in the upper abdomen. Remains nauseous. She does report passing some gas, has not passed a bowel movement, last bowel movement 11/13. She remains NPO for EGD this afternoon with Dr Berry. Pending bariatric recommendations may be able to advance to clear liquid diet this afternoon. On exam the abdomen is soft, more tender in the upper abdomen today. Does not appear distended. No surgical intervention at this time. Bariatric consult appreciated, EGD this afternoon NPO, pending bariatric recommendations post procedure Serial abdominal exams Recommended ambulation as tolerated Time Spent With Patient Time: Total time managing care of this patient today ____ minutes. Quality Stroke Does the patient have a stroke diagnosis?: No VTE Prior VTE?: No VTE Risk Level:: Surgical - low VTE Device Contraindication: N/A - Device Ordered VTE Drug Contraindication: N/A - Med Ordered
[2024-11-18] MEDS: 0.9 % Sodium Chloride Flush 3 ML SYRINGE IVFLUSH ×3 (08:01→19:41)
[2024-11-18] MEDS: Thiamine HCL 100 MG in 0.9 % Sodium Chloride 100 ML 202 MG IV (09:10)
--- NOTE | 2024-11-18 11:20 | P.PNIM_ITS ---
Subjective Subjective Date of Service: 11/18/24 Interval History: seen and examined this morning follow up for consultation no events overnight feels well this am, no sob, chest pain plan for EGD this afternoon Review of Systems Review of Systems: Yes all other systems are reviewed and are negative Constitutional Constitutional: Denies chills and Denies fever(s) Cardiovascular Cardiovascular: Denies chest pain and Denies dyspnea Respiratory Respiratory: Denies dyspnea Gastrointestinal Gastrointestinal: Denies nausea and Denies vomiting Physical Exam 2 Vital Signs: Vital Signs: Last Vital Signs Temp 98.2 F 11/18/24 07:37 Pulse 90 11/18/24 07:37 Resp 15 11/18/24 07:37 BP 153/74 H 11/18/24 07:37 Pulse Ox 97 11/18/24 07:37 O2 Del Method Room Air 11/18/24 07:37 BMI result Body Mass Index 22.6 Const: General: cooperative, comfortable, no acute distress, alert and awake Nutritional Appearance: average body habitus Orientation/consciousness: p atient oriented x3 Resp: Effort & Inspection: normal respiratory effort, able to speak in complete sentences, no respiratory distress and no use of accessory muscles Cardio: Rate: regular rate GI: Inspection: No distended Palpation (GI): Soft to palpation and nontender Neuro: General: patient oriented x3, moves all extremities and CN's II-XI intact bilaterally Objective Data Active Medications Acetaminophen (Acetaminophen 325 Mg Tablet) 650 mg PO Q6H PRN PRN Reason: Pain, Mild 1-3,fever,headache Diphenhydramine HCl (Diphenhydramine Hcl 50 Mg/Ml Vial) 12.5 mg IVPUSH Q6H PRN PRN Reason: itching Last Admin: 11/17/24 11:49 Dose: 12.5 mg Documented By: JOVANA Hydralazine HCl (Hydralazine Hcl 20 Mg/Ml Vial) 10 mg IVPUSH Q6H PRN; Protocol PRN Reason: SBP > 160 Hydromorphone HCl (Hydromorphone Hcl 1 Mg/Ml Syringe) 1 mg IVPUSH Q3H PRN; Protocol PRN Reason: Pain, Severe (Pain Scale 7-10) Last Admin: 11/18/24 08:01 Dose: 1 mg Documented By: EARNEST Thiamine HCl 100 mg/ Sodium (Chloride) 101 mls @ 202 mls/hr IV DAILY [facility] Last Infusion: 11/18/24 10:53 Dose: Infused Documented By: EARNEST Folic Acid 1 mg/ Sodium (Chloride) 50.2 mls @ 100.4 mls/hr IV DAILY [facility] Last Infusion: 11/18/24 10:53 Dose: Infused Documented By: EARNEST Lactated Ringer's (Lr) 1,000 mls @ 80 mls/hr IVCONT .[id number] [facility] Last Admin: 11/17/24 23:16 Dose: Not Given Documented By: VERONICA Non-Admin Reason: Physician Held Med Melatonin (Melatonin 3 Mg Tablet) 6 mg PO BEDTIME PRN PRN Reason: Insomnia Ondansetron HCl (Ondansetron Hcl 4 Mg/2 Ml Vial) 4 mg IVPUSH Q8H PRN PRN Reason: Nausea and Vomiting Last Admin: 11/18/24 03:45 Dose: 4 mg Documented By: VERONICA Comments: downtime Sodium Chloride (0.9 % Sodium Chloride Flush 3 Ml Syringe) 3 ml IVFLUSH QSHIFT [facility] Last Admin: 11/18/24 08:01 Dose: 3 ml Documented By: EARNEST Sucralfate (Sucralfate Oral Suspension 1 Gm/10 Ml Oral.Susp) 1 gm PO QIDACHS [facility] Last Admin: 11/18/24 07:58 Dose: Not Given Documented By: EARNEST Non-Admin Reason: NPO Sumatriptan Succinate (Sumatriptan Succinate 25 Mg Tablet) 25 mg PO DAILY PRN PRN Reason: Migraine Headache Labs 11/18/24 05:47 11/18/24 05:47 Labs: Laboratory Results - last 24 hr 11/17/24 11/17/24 11/18/24 14:26 16:23 05:47 MCV 96.3 94.2 MCH 31.2 30.2 MCHC 32.4 32.1 RDW 15.9 16.6 H Plt Count 276 275 MPV 8.0 L 8.8 L Absolute Nucleated RBC 0.000 0.000 Nucleated RBC % (auto) 0.0 0.0 Anion Gap 15 Estim Creat Clear Calc 17.8 Estimated GFR 15 Random Glucose 61 Calcium 8.6 D Blood Type O Positive Antibody Screen NEGATIVE Crossmatch See Detail Assessment and Plan (1) Anemia: Status: Acute Plan This is a 54-year-old female with history of ESRD on dialysis MWF with left upper arm graft, hypertension, migraine, h/o GI bleed secondary to gastric ulcer, esophagitis/GERD gastric sleeve requiring multiple revisions including christiano en Y bypass, hidradenitis, fibromyalgia, chronic back pain, MDD, anxiety admitted to surgery service for SBO Acute on chronic anemia history of GI bleed but no bleeding noted on this admission Stool for occult negative for blood seen by bariatric surgery, plan for EGD this afternoon, was started on Carafate and recommended to be discharged on pantoprazole Nephrology recommended transfusion for hemoglobin less than 7, s/p transfusion of 1 unit of blood 11/17 with appropriate rise in H/H Follow CBC Small-bowel obstruction Management per surgery ESRD on dialysis MWF Nephrology following rec 1L IVF per 24/hr total as per nephro rec currently NPO, when tolerating diet resume baseline meds we will follow along with you Quality Stroke Does the patient have a stroke diagnosis?: No VTE Prior VTE?: No VTE Risk Level:: Surgical - low VTE Device Contraindication: N/A - Device Ordered VTE Drug Contraindication: N/A - Med Ordered
--- NOTE | 2024-11-18 13:02 | PM.PNNEP ---
Subjective Subjective Date of Service: 11/18/24 Interval history: pt going to egd Physical Exam Exam: Exam: cvs: s1s2 Rs; cta Abd; soft Vital Signs: Vital Signs: Last Vital Signs Temp 99.3 F 11/18/24 13:00 Pulse 96 11/18/24 13:00 Resp 16 11/18/24 13:00 BP 167/82 H 11/18/24 13:00 Pulse Ox 97 11/18/24 13:00 O2 Del Method Room Air 11/18/24 13:00 BMI result Body Mass Index 22.6 Objective Data Labs 11/18/24 05:47 11/18/24 05:47 Labs: Laboratory Results - last 24 hr 11/17/24 11/17/24 11/18/24 14:26 16:23 05:47 WBC 5.1 4.2 L RBC 2.15 L 2.58 L Hgb 6.7 L* 7.8 L Hct 20.7 L* 24.3 L MCV 96.3 94.2 MCH 31.2 30.2 MCHC 32.4 32.1 RDW 15.9 16.6 H Plt Count 276 275 MPV 8.0 L 8.8 L Absolute Nucleated RBC 0.000 0.000 Nucleated RBC % (auto) 0.0 0.0 Sodium 143 Potassium 3.3 Chloride 106 Carbon Dioxide 25 Anion Gap 15 BUN 10 Creatinine 3.28 H Estim Creat Clear Calc 17.8 Estimated GFR 15 Random Glucose 61 Calcium 8.6 D Blood Type O Positive Antibody Screen NEGATIVE Crossmatch See Detail Procedures Date of Service Date of Service: 11/18/24 Assessment & Plan Assessment and plan (1) ESRD on dialysis: Status: Acute Plan ESRD: mwf [facility] Recurrent GIB ABD pain: w/u in prgress for SBO- pt npo with ivf , monitor closely for hypervolemia - limit ivf to 1 liter / day if feasible @ 80ml /hr Anemia: EPO def and recurrent GIB MBD of ESRD REC: cont HD 3x/wk; GI eval , repeat HB and Xfuyse Hb < 7.0 Time Spent With Patient Time: Total time managing care of this patient today ____ minutes. Progress Note: Quality Stroke Does the patient have a stroke diagnosis?: No
--- NOTE | 2024-11-18 14:18 | P.HPSUR_ITS ---
Pre-Procedural Eval Section A - 24 Hr Update-Section A only Date of Service: 11/18/24 The patient is an INPATIENT: No The patient has been examined within 24 hours of the surgical procedure. The History & Physical has been completed within 30 days and I have reviewed it.: No Section B - Complete if H&P > 30 days Chief Complaint: Vomiting Relevant Family History (Specify if Yes): No Relevant Social History: None Present Medications: None Medical History: No relevant PMH History of Previous Operations: Relevant previous surgery/procedure and date(s) (Laparoscopic sleeve gastrectomy, conversion to Sae-en-Y gastric bypass) Allergies: Allergies Allergy/AdvReac Type Severity Reaction Status Date / Time ibuprofen Allergy Severe Unknown Verified 11/13/24 21:40 nifedipine Allergy Intermediate hives, leg Verified 11/13/24 21:40 edema Review of Systems Sugical H&P ROS: Negative: Constitution, Cardiovascular, Respiratory, Neurological, Psychiatric, Hem-Onc, Allergic/Immunologic, Genitourinary, Musculo skeletal, Integumentary, Endocrine and Eyes/Ears/Nose/Throat and Yes, Specify: Gastrointestinal (abdominal pain) Exam Surgical H&P Exam: Normal: HEENT, Normal: Heart, Normal: Lungs, Normal: Extremities, Normal: Abdomen, Normal: Skin and Normal: Neurological Plan Diagnosis/Plan: Unchanged (EGD to assess etiology of pain and the anatomy of the gastric bypass. Risks of bleeding and perforation were discussed with the patient and she is in agreement with the plan.) I have reviewed the history and physical and performed a pertinent physical examination on my patient. No changes have occurred unless specified. Time Spent With Patient Time: Total time managing care of this patient today ____ minutes.
--- NOTE | 2024-11-18 14:30 | P.CONAN_ITS ---
HPI - Anesthesia Eval Consult details Narrative: 54 yo F presenting for EGD ESRD on HD MWF [facility] Active Problems Active Problems: All Active Problems Anemia (Acute) Small bowel obstruction (Acute) Nausea & vomiting (Acute) Small bowel obstruction (Acute) Anastomotic ulcer S/P gastric bypass (Acute) Acute blood loss anemia (ABLA) (Acute) Gastric ulcer (Acute) Acute hyperkalemia (Acute) Acute GI bleeding (Acute) ESRD on dialysis (Acute) Radiculopathy, lumbar region (Acute) Hidradenitis suppurativa of multiple sites (Acute) Superior mesenteric artery stenosis (Acute) Underweight (Acute) Suprapubic pain (Acute) Syncope (Acute) Schatzki's ring (Acute) Gastritis (Acute) Esophagitis (Acute) Idiopathic hypotension (Acute) Moderate major depression (Acute) Systolic murmur (Acute) Malnutrition (Acute) Pre-op examination (Acute) Non-cardiac chest pain (Acute) Polyp of right nasal cavity (Acute) Numbness (Acute) Palpitations (Acute) Urinary and fecal incontinence (Acute) Anxiety and depression (Acute) Chronic low back pain (Acute) Fatigue (Acute) Nasal polyp, benign (Acute) Anxiety and depression (Acute) LLQ abdominal pain (Acute) Tubular adenoma of colon (Acute) Anxiety (Acute) Spinal stenosis (Acute) 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 (Acute) Lumbar back pain with radiculopathy affecting left lower extremity (Acute) GERD (gastroesophageal reflux disease) (Acute) Polyarthralgia (Acute) Dyslipidemia (Acute) Family history of ovarian cancer (Acute) Abnormal mammogram of right breast (Acute) Chest pain (Acute) Obesity (BMI 30-39.9) (Acute) HTN (hypertension) (Acute) Past Medical History 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 Lumbar back pain with radiculopathy affecting left lower extremity Physical exam (~02/14/21) Peritoneal dialysis catheter in place Polyarthralgia Dyslipidemia Family history of ovarian cancer Abnormal mammogram of right breast Angina pectoris syndrome Chest pain Constipation Nephrosclerosis Renal interstitial fibrosis Obesity (BMI 30-39.9) Back pain GERD (gastroesophageal reflux disease) History of headache HTN (hypertension) Functional capacity: independent ambulation Family History Family History Father Asthma Mother Asthma Hypertension Ovarian cancer Maternal Grandfather Myocardial infarction Paternal Grandmother Stroke Family history of problems with anesthesia: No Surgical History Surgical History History of sleeve gastrectomy S/P arteriovenous (AV) graft placement Fistula Hx of colonoscopy Hx of hysterectomy Hx of tubal ligation History of endometrial ablation History of Problems with Anesthesia: No Social History Social History Household Members: Children Household Members Other:: 30 year old special needs son Housing: Apartment Are you a primary lawn caretaker to a significant other at home: No Do you presently have visiting nurse or other home services: No Alcohol intake: never Comment: low fall risk Patient Tobacco Use Status: Former Tobacco user Tobacco use type: Cigarette Cigarette Packs Per Day: 1 Cigarettes Per Day: 1 Years Smoked: 10+ e-Cigarette/Vaping Use: Never Used Second Hand Smoke Exposure: No Substance Use Type: Caffiene Advance Directives Date on File: 04/27/20 service: No Current occupational status: employed Cognitive needs: No Hearing needs: No Vision needs: Yes (reading glasses) Meds Allergies Allergy/AdvReac Type Severity Reaction Status Date / Time ibuprofen Allergy Severe Unknown Verified 11/13/24 21:40 nifedipine Allergy Intermediate hives, leg Verified 11/13/24 21:40 edema Active Medications: Current Medications Acetaminophen (Acetaminophen 325 Mg Tablet) 650 mg PO Q6H PRN PRN Reason: Pain, Mild 1-3,fever,headache Diphenhydramine HCl (Diphenhydramine Hcl 50 Mg/Ml Vial) 12.5 mg IVPUSH Q6H PRN PRN Reason: itching Last Admin: 11/17/24 11:49 Dose: 12.5 mg Hydralazine HCl (Hydralazine Hcl 20 Mg/Ml Vial) 10 mg IVPUSH Q6H PRN; Protocol PRN Reason: SBP > 160 Hydromorphone HCl (Hydromorphone Hcl 1 Mg/Ml Syringe) 1 mg IVPUSH Q3H PRN; Protocol PRN Reason: Pain, Severe (Pain Scale 7-10) Last Admin: 11/18/24 13:07 Dose: 1 mg Thiamine HCl 100 mg/ Sodium (Chloride) 101 mls @ 202 mls/hr IV DAILY [facility] Last Infusion: 11/18/24 10:53 Dose: Infused Folic Acid 1 mg/ Sodium (Chloride) 50.2 mls @ 100.4 mls/hr IV DAILY [facility] Last Infusion: 11/18/24 10:53 Dose: Infused Lactated Ringer's (Lr) 1,000 mls @ 80 mls/hr IVCONT .[id number] [facility] Last Admin: 11/17/24 23:16 Dose: Not Given Melatonin (Melatonin 3 Mg Tablet) 6 mg PO BEDTIME PRN PRN Reason: Insomnia Ondansetron HCl (Ondansetron Hcl 4 Mg/2 Ml Vial) 4 mg IVPUSH Q8H PRN PRN Reason: Nausea and Vomiting Last Admin: 11/18/24 03:45 Dose: 4 mg Sodium Chloride (0.9 % Sodium Chloride Flush 3 Ml Syringe) 3 ml IVFLUSH QSHIFT [facility] Last Admin: 11/18/24 08:01 Dose: 3 ml Sucralfate (Sucralfate Oral Suspension 1 Gm/10 Ml Oral.Susp) 1 gm PO QIDACHS [facility] Last Admin: 11/18/24 12:35 Dose: Not Given Sumatriptan Succinate (Sumatriptan Succinate 25 Mg Tablet) 25 mg PO DAILY PRN PRN Reason: Migraine Headache Home Medications ?Medication ?Instructions ?Recorded ?Confirmed ?Last Taken ?Type ferrous sulfate 325 mg (65 mg 325 mg PO DAILY 05/11/20 11/14/24 09/16/24 History iron) tablet,delayed release cyanocobalamin (vitamin B-12) 1,000 mcg PO DAILY 10/1711/14/24 09/16/24 History 1,000 mcg tablet acetaminophen 500 mg capsule 1,000 mg PO Q8H PRN Pain 08/10/23 11/14/24 09/16/24 History (Mapap (acetaminophen)) fluticasone propionate 50 1 spray intranasal DAILY PRN 08/10/23 11/14/24 05/18/24 History mcg/actuation nasal Allergy Symptoms spray,suspension zqzvcwlz-dasyjhmz-qcan 45 mg-folic 1 cap PO DAILY 07/1311/14/24 09/16/24 History acid 800 mcg-vit K 120 mcg capsule (Bariatric Multivitamins) parenteral amino acid 15% no.5 15 0.5 ea IV MOWEFR@090 0 08/10/23 11/14/24 06/02/24 History % combination no.5 intravenous solution (Clinisol SF) zinc acetate 50 mg (zinc) capsule 100 mg PO DAILY 11/0411/14/24 09/16/24 History meclizine 12.5 mg tablet 12.5 mg PO TID PRN Nausea An d 06/04/24 11/14/24 06/04/24 History Vomiting clotrimazole-betamethasone 1 1 appl topical DAILY PRN Rash 09/20/24 11/14/24 Unknown History %-0.05 % topical cream carvedilol 6.25 mg tablet 6.25 mg PO BID PRN Tachycard ia 11/14/24 11/14/24 Unknown History midodrine 5 mg tablet 5 mg PO TID 11/14/24 5 Unknown History misoprostol 200 mcg tablet 200 mcg PO 5XD 11/14/2407/04 Unknown History omeprazole 40 mg capsule,delayed 40 mg PO BID@0630,163 0 11/14/24 11/14/24 Unknown History release pantoprazole 40 mg tablet,delayed 40 mg PO QAM 5 11/14/24 Unknown History release sucralfate 1 gram tablet 1 g PO QIDWMHS 11/14/2407/04 Unknown History Exam Exam Date and Time: 11/18/24 1430 Height,Weight and Vital Signs: Height 5 ft 5 in Weight 61.7 kg Last Vital Signs Temp 99.3 F 11/18/24 13:00 Pulse 96 11/18/24 13:00 Resp 16 11/18/24 13:00 BP 167/82 H 11/18/24 13:00 Pulse Ox 97 11/18/24 13:00 O2 Del Method Room Air 11/18/24 13:00 Pertinent Lab Results Pertinent Lab Results: Laboratory Tests 11/13/24 11/13/24 11/14/24 22:08 23:25 05:34 WBC 6.9 RBC 2.41 L Hgb 7.5 L Hct 22.4 L MCV 92.9 MCH 31.1 MCHC 33.5 RDW 15.9 Plt Count 351 D MPV 8.7 L Immature Gran % (Auto) 0.4 Neut % (Auto) 70.1 Lymph % (Auto) 20.1 [place] % (Auto) 6.2 Eos % (Auto) 2.2 Baso % (Auto) 1.0 Lymph # (Auto) 1.4 [place] # (Auto) 0.4 Eos # (Auto) 0.2 Baso # (Auto) 0.1 Abs Immat Gran (auto) 0.03 Absolute Neuts (auto) 4.9 Absolute Nucleated RBC 0.000 Nucleated RBC % (auto) 0.0 Hold Purple Top Sodium 138 Potassium 3.9 D Chloride 98 Carbon Dioxide 29 Anion Gap 15 BUN 32 H Creatinine 4.21 H* Estim Creat Clear Calc 14.7 Estimated GFR 11 Random Glucose 100 Calcium 9.4 Magnesium 2.0 Iron 38 TIBC 169 L % Saturation 22 Unsat Iron Binding 131 Total Bilirubin 0.2 AST 20 ALT 6 Alkaline Phosphatase 114 Total Protein 6.0 L Albumin 3.5 Vitamin B12 590 Folate 9.0 TSH 1.87 Urine Color Yellow Urine Appearance Clear Urine pH >= 9.0 Ur Specific [place] <= 1.005 Urine Protein 100 (2+) H Urine Glucose (UA) Negative Urine Ketones Negative Urine Blood Trace H Urine Nitrite Negative Ur Leukocyte Esterase Negative Urine RBC 3-5 H Urine WBC 0-5 Ur Squamous Epith Cells 6-10 Urine Bacteria Trace Hyaline Casts 0-2 Gastric Occult Blood NEGATIVE Stool Occult Blood NEGATIVE Blood Type O Positive Antibody Screen NEGATIVE Crossmatch 11/14/24 11/17/24 11/17/24 06:04 14:26 16:23 WBC 5.1 RBC 2.15 L Hgb 6.7 L* Hct 20.7 L* MCV 96.3 MCH 31.2 MCHC 32.4 RDW 15.9 Plt Count 276 MPV 8.0 L Immature Gran % (Auto) Neut % (Auto) Lymph % (Auto) [place] % (Auto) Eos % (Auto) Baso % (Auto) Lymph # (Auto) [place] # (Auto) Eos # (Auto) Baso # (Auto) Abs Immat Gran (auto) Absolute Neuts (auto) Absolute Nucleated RBC 0.000 Nucleated RBC % (auto) 0.0 Hold Purple Top SEE NOTE Sodium Potassium Chloride Carbon Dioxide Anion Gap BUN Creatinine Estim Creat Clear Calc Estimated GFR Random Glucose Calcium Magnesium Iron TIBC % Saturation Unsat Iron Binding Total Bilirubin AST ALT Alkaline Phosphatase Total Protein Albumin Vitamin B12 Folate TSH Urine Color Urine Appearance Urine pH Ur Specific [place] Urine Protein Urine Glucose (UA) Urine Ketones Urine Blood Urine Nitrite Ur Leukocyte Esterase Urine RBC Urine WBC Ur Squamous Epith Cells Urine Bacteria Hyaline Casts Gastric Occult Blood Stool Occult Blood Blood Type O Positive Antibody Screen NEGATIVE Crossmatch See Detail 11/18/24 05:47 WBC 4.2 L RBC 2.58 L Hgb 7.8 L Hct 24.3 L MCV 94.2 MCH 30.2 MCHC 32.1 RDW 16.6 H Plt Count 275 MPV 8.8 L Immature Gran % (Auto) Neut % (Auto) Lymph % (Auto) [place] % (Auto) Eos % (Auto) Baso % (Auto) Lymph # (Auto) [place] # (Auto) Eos # (Auto) Baso # (Auto) Abs Immat Gran (auto) Absolute Neuts (auto) Absolute Nucleated RBC 0.000 Nucleated RBC % (auto) 0.0 Hold Purple Top Sodium 143 Potassium 3.3 Chloride 106 Carbon Dioxide 25 Anion Gap 15 BUN 10 Creatinine 3.28 H Estim Creat Clear Calc 17.8 Estimated GFR 15 Random Glucose 61 Calcium 8.6 D Magnesium Iron TIBC % Saturation Unsat Iron Binding Total Bilirubin AST ALT Alkaline Phosphatase Total Protein Albumin Vitamin B12 Folate TSH Urine Color Urine Appearance Urine pH Ur Specific [place] Urine Protein Urine Glucose (UA) Urine Ketones Urine Blood Urine Nitrite Ur Leukocyte Esterase Urine RBC Urine WBC Ur Squamous Epith Cells Urine Bacteria Hyaline Casts Gastric Occult Blood Stool Occult Blood Blood Type Antibody Screen Crossmatch Airway Mallampati Class: I TM Dist: >3cm Neck ROM: Full Loose/Missing/Broken Teeth: Yes (Loose tooth #9) Heart: S1S2 Lungs: CTAB Assessment and Plan Assessment Anesthesia Assessment: Anesthesia Plan Discussed and Chart Reviewed Final Anesthetic Review Family History of Problems with Anesthesia: No History of Problems with Anesthesia: No NPO: Yes ASA Class: III Final Preanesthetic Review: No Changes in Pt Med Stat, Meds/Allgs Chart Reviewed, Consent Obtained/Reviewed and Anes Risks/Benef Reviewed Patient Risk: Intermediate Procedure Risk: Low Anesthetic Plan Anesthetic Plan: MAC: and Agree w/ Assess. and Plan Disposition: Standard PACU
--- NOTE | 2024-11-18 14:48 | P.BOP_ITS ---
Brief Operative Note Date of Service: 11/18/24 Pre-op diagnosis: Nausea and vomiting, abdominal pain Post-op diagnosis: same Procedure: PROCEDURE DATE: ?11/18/2024 PREOPERATIVE DIAGNOSIS: abdominal pain, nausea and vomiting, s/p gastric bypass POSTOPERATIVE DIAGNOSIS: ?Same as above. PROCEDURE: Hnlrgsnm-zfoalf-vxtzjnmtkjg with biopsies Surgeon: ?Jude Berry M.D.. Ph.D. Control System Computer Scientist: ?None ? Anesthesia: IV sedation Estimated blood loss: ?Minimal FINDINGS AND PROCEDURE: ? OPERATIVE INDICATIONS: ?The patient is a 54 year old female known to me who underwent initially a laparoscopic sleeve gastrectomy by Dr. Coto. 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 She underwent an initial procedure with lysis of adhesions that did not resolve the issue, followed by a conversion to laparoscopic gastric bypass. She developed again postoperative GI bleeding. The patient continued to have nausea, vomiting and abdominal pain and required an additional procedure a month ago at [facility] for GI bleeding. The operative report stated that the patient did not have the usual Sae-en-y anatomy: the pouch was very large and the previous sleeve was still in place. In addition, there was significant inflammation in the pouch and the patient was asked to quit smoking. The patient was admitted in our hospital for abdominal pain, nausea and vomiting. Based on this information I recommended an upper endoscopy to evaluate the patient's symptoms and assess further the anatomy.? Risks and complications of the surgery were discussed with the patient in advance particularly the possibility of perforation or bleeding that may require surgical intervention. The patient understood the risks and was in agreement with the plan. ? PROCEDURE: After informed consent was obtained by the patient, the patient was ?transferred to the Operating Room and was placed in the supine position.? After successful induction of IV sedation, a mouth block was placed and the patient was placed in the left lateral decubitus position. An upper endoscopy was performed next, the oropharynx and esophagus appeared within the normal limits. There was no hiatal hernia.? The z-line was smooth. The pouch was extremely long (41 to 53cm from incisors). The mucosa was diffusely inflamed and engorged Two biopsies were obtained from the proximal and distal pouch. The gastrojejunostomy was patent.There was inflammation and superficial ulcers at the proximal Sae limb. Two clips were present probably from the postop GI bleed the patient had after the bypass. No significant bl eeding was noted from any of the biopsy sites.? At that point the scope was advanced into the proximal small intestine (proximal Sae limb) which appeared to be normal as well. The Sae limb and the pouch were decompressed and the scope was withdrawn from the patient's mouth. The patient was awaken and was transferred in stable condition to the Recovery Room for further care. I was present and performed all steps of the procedure. There were no residents to assist with this case. Jude Berry M.D., Ph.D. Surgeon: Jr Berry MD Anesthesia: MAC Was an Control System Computer Scientist used for this Procedure?: No Estimated blood loss (mL): 0 IV fluids (mL): 400 Urine output (mL): 0 (On dialysis) Pathology: other (1) proximal pouch x1, 2) distal pouch x1) Condition: stable Disposition: PACU
[2024-11-18] MEDS: Sucralfate Oral Suspension 1 GM/10 ML ORAL.SUSP PO ×2 (16:34→19:41)
[2024-11-18] MEDS: Lactated Ringers 1,000 ML 80 ML IVCONT (17:26)
[2024-11-19 03:39] VITALS: BP 141/67; PULSE 92; RESP 16; TEMP 36.2; O2SAT 96
[2024-11-19] MEDS: Lactated Ringers 1,000 ML 80 ML IVCONT (05:41)
--- NOTE | 2024-11-19 07:21 | P.PNGS_ITS ---
Subjective Subjective Date of Service: 11/19/24 <Sergo Beatty PA-C - Last Filed: 11/19/24 07:33> 11/19/24 <Scott Andrews MD - Last Filed: 11/19/24 08:11> Interval history: Doing well this morning. Feels improved. Denies pain at rest. continued nausea, requiring zofran. Diet was advanced after EGD, tolerating small amounts without increase in symptoms. She passed a small liquid bowel movement, describes it as dark. <Sergo Beatty PA-C - Last Filed: 11/19/24 07:33> Physical Exam 2 Vital Signs: Vital Signs: Last Vital Signs Temp 97.2 F 11/19/24 03:39 Pulse 92 11/19/24 03:39 Resp 16 11/19/24 03:39 BP 141/67 H 11/19/24 03:39 Pulse Ox 96 11/19/24 03:39 O2 Del Method Room Air 11/19/24 03:39 BMI result Body Mass Index 22.6 <Sergo Beatty PA-C - Last Filed: 11/19/24 07:33> Const: General: comfortable and no acute distress <Sergo Beatty PA-C - Last Filed: 11/19/24 07:33> Orientation/consciousness: patient oriented x3 <IRMA Gabriel Last Filed: 11/19/24 07:33> Resp: Effort & Inspection: normal respiratory effort and able to speak in complete sentences <Sergo Beatty PA-C - Last Filed: 11/19/24 07:33> GI: Inspection: No distended <IRMA Gabriel Last Filed: 11/19/24 07:33> Palpation (GI): Soft to palpation, not firm, Tenderness to palpation present (GI) (mild generalized tenderness) and no guarding <IRMA Gabriel Last Filed: 11/19/24 07:33> Neuro: General: patient oriented x3 <IRMA Gabriel Last Filed: 11/19/24 07:33> Objective Data Active Medications Acetaminophen (Acetaminophen 325 Mg Tablet) 650 mg PO Q6H PRN PRN Reason: Pain, Mild 1-3,fever,headache Diphenhydramine HCl (Diphenhydramine Hcl 50 Mg/Ml Vial) 12.5 mg IVPUSH Q6H PRN PRN Reason: itching Last Admin: 11/18/24 21:51 Dose: 12.5 mg Documented By: VERONICA Hydralazine HCl (Hydralazine Hcl 20 Mg/Ml Vial) 10 mg IVPUSH Q6H PRN; Protocol PRN Reason: SBP > 160 Last Admin: 11/18/24 19:48 Dose: 10 mg Documented By: VERONICA Thiamine HCl 100 mg/ Sodium (Chloride) 101 mls @ 202 mls/hr IV DAILY [facility] Last Infusion: 11/18/24 10:53 Dose: Infused Documented By: EARNEST Folic Acid 1 mg/ Sodium (Chloride) 50.2 mls @ 100.4 mls/hr IV DAILY [facility] Last Infusion: 11/18/24 10:53 Dose: Infused Documented By: EARNEST Lactated Ringer's (Lr) 1,000 mls @ 80 mls/hr IVCONT .[id number] [facility] Last Admin: 11/19/24 05:41 Dose: 80 mls/hr Documented By: VERONICA Melatonin (Melatonin 3 Mg Tablet) 6 mg PO BEDTIME PRN PRN Reason: Insomnia Last Admin: 11/18/24 21:51 Dose: 6 mg Documented By: VERONICA Naloxone HCl (Naloxone Hcl 0.4 Mg/Ml Vial) 0.04 mg IVPUSH Q5M PRN PRN Reason: Excessive sedation or RR < 8 Ondansetron HCl (Ondansetron Hcl 4 Mg/2 Ml Vial) 4 mg IVPUSH Q8H PRN PRN Reason: Nausea and Vomiting Last Admin: 11/19/24 05:40 Dose: 4 mg Documented By: VERONICA Sodium Chloride (0.9 % Sodium Chloride Flush 3 Ml Syringe) 3 ml IVFLUSH QSHIFT [facility] Last Admin: 11/18/24 19:41 Dose: 3 ml Documented By: VERONICA Sucralfate (Sucralfate Oral Suspension 1 Gm/10 Ml Oral.Susp) 1 gm PO QIDACHS [facility] Last Admin: 11/18/24 19:41 Dose: 1 gm Documented By: VERONICA Sumatriptan Succinate (Sumatriptan Succinate 25 Mg Tablet) 25 mg PO DAILY PRN PRN Reason: Migraine Headache Last Admin: 11/18/24 19:47 Dose: 25 mg Documented By: VERONICA <Sergo Beatty PA-C - Last Filed: 11/19/24 07:33> Labs CBC & Chem 7: 11/18/24 05:47 11/18/24 05:47 <Sergo Beatty PA-C - Last Filed: 11/19/24 07:33> Procedures Date of Service Date of Service: 11/19/24 <Sergo Beatty PA-C - Last Filed: 11/19/24 07:33> 11/19/24 <Scott Andrews MD - Last Filed: 11/19/24 08:11> Progress Note: A&P Assessment and plan (1) Small bowel obstruction: Status: Acute <Sergo Beatty PA-C - Last Filed: 11/19/24 07:33> Assessment and Plan: 54-year-old female complex bariatric history status post sleeve gastrectomy revised to gastric bypass complicated by several episodes of GI bleeds from marginal ulcers and most recently last month undergoing repeat EGD and diagnostic laparoscopy with lysis of adhesions and [facility]. Admitted for partial small bowel obstruction. Had EGD with Dr dorsey yesterday significatn for diffuse mucosal inflammation and superficial ulcers. Two biopsies were obtained, results pending. Today doing well, feels improved overall. No pain at rest. Remains nauseous, requiring antiemetics. She does report passing some gas, has now passed a small liquid bowel movement, describes her stool as dark, possibly she has some bleeding from the ulcers. Will check labs this morning. Diet was advanced after the procedure, she is tolerating small amounts. On exam the abdomen is soft, generalized tenderness throughout the abdomen. Does not appear distended. No surgical intervention at this time. Pending bariatric recommendations may be able to discharge this afternoon. Bariatric consult appreciated, plan pending recommendations bariatric diet as tolerated. Serial abdominal exams Recommended ambulation as tolerated possible DC this afternoon if h/h stable, cleared by bariatric <Sergo Beatty PA-C - Last Filed: 11/19/24 07:33> 54-year-old female complex bariatric history status post sleeve gastrectomy revised to gastric bypass complicated by several episodes of GI bleeds from marginal ulcers and most recently last month undergoing repeat EGD and diagnostic laparoscopy with lysis of adhesions and [facility]. Admitted for partial small bowel obstruction. Had EGD with Dr dorsey yesterday significatn for diffuse mucosal inflammation and superficial ulcers. Two biopsies were obtained, results pending. Today doing well, feels improved overall. No pain at rest. Remains nauseous, requiring antiemetics. She does report passing some gas, has now passed a small liquid bowel movement, describes her stool as dark, possibly she has some bleeding from the ulcers. Will check labs this morning. Diet was advanced after the procedure, she is tolerating small amounts. On exam the abdomen is soft, generalized tenderness throughout the abdomen. Does not appear distended. No surgical intervention at this time. Pending bariatric recommendations may be able to discharge this afternoon. Bariatric consult appreciated, plan pending recommendations bariatric diet as tolerated. Serial abdominal exams Recommended ambulation as tolerated possible DC this afternoon if h/h stable, cleared by bariatric Patient seen and examined and agree with the assessment above. Discussed with Dr. Dorsey. We will recheck H&H after dialysis. He will start on phase 1 diet. Possible discharge later today. <Scott Andrews MD - Last Filed: 11/19/24 08:11> Time Spent With Patient Time: Total time managing care of this patient today ____ minutes. <Sergo Beatty PA-C - Last Filed: 11/19/24 07:33> Quality Stroke Does the patient have a stroke diagnosis?: No <Sergo Beatty PA-C - Last Filed: 11/19/24 07:33> VTE Prior VTE?: No <Sergo Beatty PA-C - Last Filed: 11/19/24 07:33> VTE Risk Level:: Surgical - low <Sergo Beatty PA-C - Last Filed: 11/19/24 07:33> VTE Device Contraindication: N/A - Device Ordered <Sergo Beatty PA-C - Last Filed: 11/19/24 07:33> VTE Drug Contraindication: N/A - Med Ordered <Sergo Beatty PA-C - Last Filed: 11/19/24 07:33>
[2024-11-19 07:54] VITALS: BP 148/70; PULSE 88; RESP 18; TEMP 36.6; O2SAT 99
--- NOTE | 2024-11-19 08:28 | HO.POSTANES ---
Post Anesthesia Evaluation Post Anesthesia Evaluation Date of Service: 11/19/24 Vital Signs: Vital Signs Temp Pulse Resp BP Pulse Ox O2 Del Method 11/19/24 07:54 97.8 F 88 18 148/70 H 99 Room Air 11/19/24 03:39 97.2 F 92 16 141/67 H 96 Room Air 11/18/24 23:19 97.6 F 86 16 136/65 96 Room Air 11/18/24 20:48 157/75 H Anesthesia: Monitored Mental Status: Sedated (resting comfortably) Pain Control: Satisfactory Nausea/Vomiting: None Hydration: Adequate Anesthesia-Related Issues: No Anes. Related Issues
[2024-11-19] MEDS: Sucralfate Oral Suspension 1 GM/10 ML ORAL.SUSP PO (08:32)
[2024-11-19 09:06] LABS: Hematocrit 23.2 % (37.0-47.0); Hemoglobin 7.6 g/dl (12.0-16.0); Mean Corpuscular HGB Conc 32.8 g/dl (31.0-35.0); Mean Corpuscular Hemoglobin 30.4 pg (27.0-33.0); Mean Corpuscular Volume 92.8 fL (80.0-98.0); NRBC Abs Auto 0.000 X10*3/uL (0.0-0.012); NRBC Pct Auto 0.0 /100WBC (0.0-0.2); Platelet Count 236 X10*3/uL (160-400); Red Blood Count 2.50 X10*6/uL (4.20-5.50); White Blood Count 4.9 X10*3/uL (4.8-10.8)
[2024-11-19] MEDS: oxyCODONE HCl Immed Release 5 MG TABLET PO (09:12)
[2024-11-19 09:28] LABS: Anion Gap 14 (12-20); Blood Urea Nitrogen 14 mg/dL (9-16); Calcium 8.4 mg/dL (8.4-10.2); Carbon Dioxide 23 mmol/L (22-29); Chloride 107 mmol/L (96-108); Creatinine Clr Calc Pharmacy 15.0; Estimated Glomerular Filt Rate 12; Potassium 3.5 mmol/L (3.3-5.1); Sodium 140 mmol/L (135-145)
--- NOTE | 2024-11-19 10:57 | PM.PNGS ---
Subjective Subjective Date of Service: 11/19/24 Interval history: The endoscopy shows significant inflammation in the entire pouch and superficial ulcerations in the GJ anastomosis. Was transfused yesterday Physical Exam Vital Signs: Vital Signs: Last Vital Signs Temp 97.8 F 11/19/24 07:54 Pulse 88 11/19/24 07:54 Resp 18 11/19/24 07:54 BP 148/70 H 11/19/24 07:54 Pulse Ox 99 11/19/24 07:54 O2 Del Method Room Air 11/19/24 07:54 BMI result Body Mass Index 22.6 GI: Inspection: Yes normal to inspection and Yes incision (well healed, non-tender) Palpation (GI): Soft to palpation Objective Data Active Medications Acetaminophen (Acetaminophen 325 Mg Tablet) 650 mg PO Q6H PRN PRN Reason: Pain, Mild 1-3,fever,headache Diphenhydramine HCl (Diphenhydramine Hcl 50 Mg/Ml Vial) 12.5 mg IVPUSH Q6H PRN PRN Reason: itching Last Admin: 11/18/24 21:51 Dose: 12.5 mg Documented By: VERONICA Hydralazine HCl (Hydralazine Hcl 20 Mg/Ml Vial) 10 mg IVPUSH Q6H PRN; Protocol PRN Reason: SBP > 160 Last Admin: 11/18/24 19:48 Dose: 10 mg Documented By: VERONICA Thiamine HCl 100 mg/ Sodium (Chloride) 101 mls @ 202 mls/hr IV DAILY [facility] Last Infusion: 11/18/24 10:53 Dose: Infused Documented By: EARNEST Folic Acid 1 mg/ Sodium (Chloride) 50.2 mls @ 100.4 mls/hr IV DAILY [facility] Last Infusion: 11/18/24 10:53 Dose: Infused Documented By: EARNEST Lactated Ringer's (Lr) 1,000 mls @ 80 mls/hr IVCONT .[id number] [facility] Last Admin: 11/19/24 05:41 Dose: 80 mls/hr Documented By: VERONICA Melatonin (Melatonin 3 Mg Tablet) 6 mg PO BEDTIME PRN PRN Reason: Insomnia Last Admin: 11/18/24 21:51 Dose: 6 mg Documented By: VERONICA Naloxone HCl (Naloxone Hcl 0.4 Mg/Ml Vial) 0.04 mg IVPUSH Q5M PRN PRN Reason: Excessive sedation or RR < 8 Ondansetron HCl (Ondansetron Hcl 4 Mg/2 Ml Vial) 4 mg IVPUSH Q8H PRN PRN Reason: Nausea and Vomiting Last Admin: 11/19/24 05:40 Dose: 4 mg Documented By: VERONICA Oxycodone HCl (Oxycodone Hcl Immed Release 5 Mg Tablet) 5 mg PO Q4H PRN PRN Reason: Pain, Moderate(Pain Scale 4-6) Last Admin: 11/19/24 09:12 Dose: 5 mg Documented By: EARNEST Sodium Chloride (0.9 % Sodium Chloride Flush 3 Ml Syringe) 3 ml IVFLUSH [facility] Last Admin: 11/19/24 09:19 Dose: Not Given Documented By: EARNEST Non-Admin Reason: Off unit in Dialysis Sucralfate (Sucralfate Oral Suspension 1 Gm/10 Ml [facility].Susp) [facility] Last Admin: 11/19/24 08:32 Dose: 1 gm Documented By: EARNEST Sumatriptan Succinate (Sumatriptan Succinate 25 Mg Tablet) 25 mg PO DAILY PRN PRN Reason: Migraine Headache Last Admin: 11/18/24 19:47 Dose: 25 mg Documented By: VERONICA Labs 11/19/24 08:25 11/19/24 08:25 Labs: Laboratory Results - last 24 hr 11/19/24 08:25 MCV 92.8 MCH 30.4 MCHC 32.8 RDW 16.3 H Plt Count 236 MPV 8.5 L Absolute Nucleated RBC 0.000 Nucleated RBC % (auto) 0.0 Anion Gap 14 Estim Creat Clear Calc 15.0 Estimated GFR 12 Random Glucose 80 Calcium 8.4 Procedures Date of Service Date of Service: 11/19/24 Progress Note: A&P Assessment and plan (1) Gastritis: Status: Acute Assessment and Plan: 1. The patient can be discharged today. I went over discharge instructions with her. She will continue 2-3 Ensure Max shakes per day and I explained to her how to drink them, 1oz every 15 min 2. She will continue the Pantoprazole and Sucralfate daily 3. Will have a f/up EGD in 3 weeks. If improved, I will add solid food. Patient is in agreement with the plan Case was discussed with Dr. Andrews. Time Spent With Patient Time: Total time managing care of this patient today ____ minutes. Quality Stroke Does the patient have a stroke diagnosis?: No VTE Prior VTE?: No VTE Risk Level:: Surgical - low VTE Device Contraindication: N/A - Device Ordered VTE Drug Contraindication: N/A - Med Ordered
--- NOTE | 2024-11-19 13:25 | MHC.CM.PN ---
PT CLEARED TO DC HOME TODAY WITH RESUMPTION OF HER ANESTHESIOLOGY TECH AND OP HD SERVICES FAMILY TO TRANSPORT
--- NOTE | 2024-11-23 14:09 | PM.DS ---
DS: Providers Provider Date of Service: 11/19/24 Date of admission: 11/14/24 04:10 Date of discharge: 11/19/24 Primary care physician: Rozina Lang MD Admitting clinician: Irina Magana Attending physician on admission: Irina Magana Consults: 11/14/24 04:15 Consult to Hospitalist Routine Comment: Consulting Provider: [facility] Reason For Exam: med management 11/14/24 05:22 Consult to Nephrology Routine Consulting Provider: [facility] Reason for consultation: Admitted by surgery for small bowel obstruction end-stage renal disease on 11/14/24 11:12 Consult to Nephrology Routine Consulting Provider: [facility] Reason for consultation: ESRD 11/14/24 11:14 Consult to Nephrology Routine Consulting Provider: [facility] Reason for consultation: HD pt 11/15/24 10:20 Consult to Bariatric Surgery Routine Consulting Provider: Jr Berry Reason for consultation: SBO, s/p sleeve, revision, ? [place]. ?internal hernia 11/17/24 15:32 Consult to Hospitalist Routine Comment: Consulting Provider: [facility] Reason For Exam: Low Hgb and Hct Attending physician on discharge: Scott Andrews DS: Diagnosis Discharge Diagnosis (1) Gastritis: Status: Acute DS: Summary Hospital Course Hospital Course: Admission HPI: Meliza Perry is a 54 year old female who presents today to the emergency room with increasing abdominal pain nausea and some vomiting. Patient has a complex bariatric surgery history as having a remote sleeve gastrectomy 2012 but then losing a lot of weight because she had narrowing of her sleeve. This was originally done in [facility] question of around [address] Rosen. Patient was over 200 lb at the time of a procedure and had severe weight loss came down to 90 something lb and could not eat or gain weight. She eventually underwent a revision of the sleeve gastrectomy to what may have been more of a bypass procedure . She was able to gain some more weight but still having issues. Recently she had a GI bleed and was diagnosed with marginal ulcer. She has been treated with sucralfate PPI medication etc.. Several weeks ago she presented here was transferred to [facility] where she underwent on October 11 to 4th 2025 EGD and then what seemed to be documented as an exploratory laparoscopy with lysis of adhesions. We do not have her full records and having some difficulty obtaining them as it is Friday. It seems that her surgeon was Dr. David Mitchell . Yesterday she became more nauseated and vomited and her abdominal pain increased. Patient is relatively very savvy with her past medical history. As a result she comes in to the emergency room for care. Here CT scan of her abdomen and pelvis was carried out which showed findings consistent with small-bowel obstruction secondary to distal distended small bowel. No other concerning findings. She has a complex medical history significant for end-stage renal disease and she is on dialysis with a left arm fistula which has had issues with clotting but is functioning now. She last had dialysis on Friday. Hospital course: Patient was admitted for management of partial small bowel obstruction. Was made NPO, given IV fluids. On admission day 1, patient overall feeling improved continues to have some moderate abdominal pain that is well controlled with medication. Continues to have nausea also well controlled by medication. Continues to pass gas, no bowel movement at this time. Bariatric surgery was consulted due to the patient's complex bariatric surgical history. Admission day 2 patient feeling like she is improving overall in terms of pain and nausea. Continues to pass gas without bowel movements, remains NPO. Was seen by bariatric who performed a thorough review and discussed with the patient's bariatric surgeon who performed the surgery. Recommending supplementing with vitamin B1, folic acid, B12. On 11/17 patient was found to be critically anemic, nephrology recommended transfusion, received 1 unit. There was appropriate rise in H&H on repeat labs. On 11/18 of admission patient symptoms unchanged. She had EGD with Dr. Berry showing diffuse mucosal inflammation and superficial ulcers, he took 2 biopsies, results pending. She continued to have some vague generalized abdominal pain and mild nausea that was well controlled with medications. Diet was advanced to bariatric diet, patient tolerated well. On 11/19 patient continues to have some abdominal pain and nausea however felt ready to be discharged. Abdomen was soft and benign. She had passed gas and a bowel movement, clinically nonobstructed at this point. repeat labs showing stable H&H. She will be discharged with pantoprazole, continue the above-mentioned vitamin supplementation. She is to continue bariatric diet per Dr. Berry's recommendations and will follow up with bariatric as an outpatient. At the time of discharge patient was in stable condition, Status at Discharge Functional status at discharge: independent ambulation Overall status at discharge: patient is progressing back to baseline Time Attestation Discharge Coordination Time (in mins): 30 Quality: Safe Use of Opioids Does Pt have an Active Cancer Diagnosis on the Problem List?: No Quality: Stroke Does the patient have a stroke diagnosis?: No Physical Exam Vital Signs: Vital Signs: Last Vital Signs Temp 97.8 F 11/19/24 07:54 Pulse 88 11/19/24 07:54 Resp 18 11/19/24 07:54 BP 148/70 H 11/19/24 07:54 Pulse Ox 99 11/19/24 07:54 O2 Del Method Room Air 11/19/24 07:54 BMI result Body Mass Index 22.6 Const: General: comfortable and no acute distress Orientation/consciousness: patient oriented x3 Resp: Effort & Inspection: normal respiratory effort and able to speak in complete sentences GI: Inspection: No distended Palpation (GI): Soft to palpation, not firm, Tenderness to palpation present (GI) (mild generalized tenderness) and no guarding Neuro: General: patient oriented x3 DS: Data Data Completed and Pending Completed studies during hospitalization [Text1]: Procedures Control Bleeding in Gastrointestinal Tract, Via Natural or Artificial Opening Endoscopic (09/20/24) Excision of Stomach, Pylorus, Via Natural or Artificial Opening Endoscopic, Diagnostic (05/19/24) Excision of Stomach, Via Natural or Artificial Opening Endoscopic, Diagnostic (08/09/24) Inspection of Upper Intestinal Tract, Via Natural or Artificial Opening Endoscopic (04/24/24) Introduction of Mineral-based Topical Hemostatic Agent into Upper GI, Via Natural or Artificial Opening Endoscopic, [employer] (09/20/24) Introduction of Other Therapeutic Substance into Upper GI, Via Natural or Artificial Opening Endoscopic (09/20/24) Performance of Urinary Filtration, Intermittent, Less than 6 Hours Per Day (09/20/24) Transfusion of Nonautologous Red Blood Cells into Peripheral Vein, Percutaneous Approach (09/20/24) Pending studies at discharge: Pending at discharge 11/18/24 15:13 Surgical [PTH] Routine Discharge Plan Discharge Anticipated Discharge Date/Time: 11/19/24 11:59 Patient Disposition: Home, Self-Care Discharge Diagnosis: partial SBO s/p bypass Referrals: Jr Berry MD [Physician, Bariatric Surgery] - 1 Week Rozina Nicole MD [Primary Care Provider, Internal Medicine] - 1 Week Discharge Medications: Continued thiamine HCl (vitamin B1) 100 mg tablet 100 mg PO DAILY 90 Days Qty: 90 0RF vitamin A 2,400 mcg capsule 2,400 mcg PO DAILY 90 Days Qty: 90 1RF citalopram 20 mg tablet 20 mg PO DAILY 90 Days Qty: 90 1RF melatonin 10 mg capsule 20 mg PO BEDTIME Qty: 90 0RF pyridoxine (vitamin B6) 50 mg tablet 50 mg PO DAILY 90 Days Qty: 90 1RF gabapentin 400 mg capsule 400 mg PO BID 90 Days Qty: 180 1RF ondansetron 4 mg tablet,disintegrating 4 mg PO Q8H PRN (Reason: nausea and vomiting) Qty: 10 0RF sucralfate 100 mg/mL suspension 10 ml PO BID Qty: 600 2RF pantoprazole 40 mg tablet,delayed release (DR/EC) 40 mg PO DAILY Qty: 90 0RF cyanocobalamin (vitamin B-12) 1,000 mcg Tablet 1,000 mcg PO DAILY clotrimazole-betamethasone 1-0.05 % cream 1 appl topical DAILY PRN (Reason: Rash) oxycodone 5 mg Tablet 5 mg PO Q8H PRN (Reason: Pain, Moderate(Pain Scale 4-6)) Qty: 15 0RF Rx Instructions: Partial Fill upon patient request. acetaminophen [Mapap (acetaminophen)] 500 mg capsule 1,000 mg PO Q8H PRN (Reason: Pain) Clinisol SF 15 % 15 % parenteral solution 0.5 ea IV MOWEFR@0900 Rx Instructions: DIALYSIS MEDICATION Bariatric Multivitamins 45 mg iron- 800 mcg-120 mcg Capsule 1 cap PO DAILY fluticasone propionate 50 mcg/actuation spray,suspension 1 spray intranasal DAILY PRN (Reason: Allergy Symptoms) Rx Instructions: administer into each nostril zinc acetate 50 mg (zinc) Capsule 100 mg PO DAILY meclizine 12.5 mg Tablet 12.5 mg PO TID PRN (Reason: Nausea And Vomiting) sucralfate 1 gram tablet 1 g PO QIDWMHS pantoprazole 40 mg tablet,delayed release (DR/EC) 40 mg PO QAM misoprostol 200 mcg tablet 200 mcg PO 5XD omeprazole 40 mg capsule,delayed release(DR/EC) 40 mg PO BID@0630,1630 midodrine 5 mg tablet 5 mg PO TID carvedilol 6.25 mg tablet 6.25 mg PO BID PRN (Reason: Tachycardia) ferrous sulfate 325 mg (65 mg iron) tablet,delayed release (DR/EC) 325 mg PO DAILY Discharge Orders: Discharge Order (Routine); Ordered 11/19/24 Ordered By: Sergo Beatty Diet: Bariatric Diet Activity on Discharge: As tolerated Stand Alone Forms: Patient Portal Discharge page Print Language: [place] Care Plan Goals: return to baseline Health Concerns: s/p gastric bypass anemia Plan of Treatment: follow up with Dr. Berry as an outpatient. EGD in 3 weeks Bariatric diet (2-3 Ensure Max shakes per day. 1 Oz every 15 min) pantoprazole and sucralfate daily Assessment: patient doing well Discharge Date/Time: 11/19/24 13:39
== END 2024-11-19 13:39 | disposition home or self-care (01) | DRG 393 ==
LOC: HO.ED 11-14 02:54 → HO.EDOVER 11-14 05:06 → HO.S3 11-14 18:54
PROVIDERS: Nurse Practitioner; Nurse Practitioner Family; Physician Assistant Medical; Surgery; Admitting Provider Surgery; Emergency Provider Emergency Medicine; PCP Internal Medicine; Visit Provider Surgery
PROC: 0DJ08ZZ Inspection of Upper Intestinal Tract, Via Natural or Artificial Opening Endoscopic (ICD-10-PCS; CPT 43235; principal; 2024-11-18 15:10)
DX: K95.89 Other complications of other bariatric procedure (principal); N18.6 End stage renal disease; I12.0 Hypertensive chronic kidney disease with stage 5 chronic kidney disease or end stage renal disease; K91.31 Postprocedural partial intestinal obstruction; R94.31 Abnormal electrocardiogram [ECG] [EKG]; N25.0 Renal osteodystrophy; D63.1 Anemia in chronic kidney disease; K28.9 Gastrojejunal ulcer, unspecified as acute or chronic, without hemorrhage or perforation; G43.909 Migraine, unspecified, not intractable, without status migrainosus; Z99.2 Dependence on renal dialysis; Z79.899 Other long term (current) drug therapy
CPT/HCPCS: 36415; 74176; 80048; 80053; 81001; 82271; 82272; 82607; 82746; 83540; 83735; 84443; 85025; 85027; 86850; 86900; 86901; 86923; 88305; 88341; 88342; 90999; 93005; 99285; J0360; J0737; J1171; J1200; J1808; J2003; J2270; J2405; J2470; J2765; J3010; J3360; J3411; J3420; J7120; P9016

== ENCOUNTER → 2024-11-13 22:27 | Outpatient (BNV) | payer MEDICARE, MEDICAID, SELFPAY | PROVIDERS: Admitting Provider Surgery; Emergency Provider Emergency Medicine; Visit Provider Internal Medicine | DX: R00.0 Tachycardia, unspecified (principal) | CPT/HCPCS: 93010 ==

== ENCOUNTER → 2024-11-13 22:37 | Outpatient (BNV) | payer MEDICARE, MEDICAID, SELFPAY | PROVIDERS: Emergency Provider Emergency Medicine; Visit Provider Radiology Neuroradiology | DX: N20.0 Calculus of kidney (principal); K31.89 Other diseases of stomach and duodenum | CPT/HCPCS: 74176 ==

== ENCOUNTER → 2024-11-14 04:10 | Outpatient (BNV) | payer MEDICARE, MEDICAID, SELFPAY | PROVIDERS: Admitting Provider Surgery; Emergency Provider Emergency Medicine; Visit Provider Nurse Practitioner Family | DX: D64.9 Anemia, unspecified (principal) | CPT/HCPCS: 99223; 99232; 99499 ==

== ENCOUNTER → 2024-11-14 04:10 | Outpatient (BNV) | payer MEDICARE, MEDICAID, SELFPAY | PROVIDERS: Admitting Provider Surgery; Emergency Provider Emergency Medicine; Visit Provider Surgery | DX: K56.609 Unspecified intestinal obstruction, unspecified as to partial versus complete obstruction (principal) | CPT/HCPCS: 99499 ==

== ENCOUNTER → 2024-11-14 04:10 | Outpatient (BNV) | payer MEDICARE, MEDICAID, SELFPAY | PROVIDERS: Admitting Provider Surgery; Emergency Provider Emergency Medicine; Visit Provider Surgery | DX: R11.2 Nausea with vomiting, unspecified (principal); R10.9 Unspecified abdominal pain; Z98.84 Bariatric surgery status | CPT/HCPCS: 43239; 99232 ==

== ENCOUNTER 2024-11-24 12:37 | Outpatient (AMB) | payer MEDICARE, MEDICAID, SELFPAY ==
--- NOTE | 2024-11-24 12:45 | MHC.OFFVISWM ---
VS Expanded 11/24/24 12:57 BP 98/50 L Blood Pressure Location Rt brachial Blood Pressure Position Sitting Pulse 82 Pulse Source Pulse Oximeter Temp 97.5 F Temperature Source Temporal Artery Scan Pulse Oximetry 100 Height 5 ft 5 in Weight 129 lb 6 oz BMI 21.5 Body Fat % 27.3 Body Fat Mass 35.2 Fat Free Mass 94.2 Visceral Fat Rating 5 Body Water % 51.6 Body Water Mass 66.8 Muscle Mass/Score 89.2 Basal Metabolic Rate/Score 1,262 Neck Circumference 14 in Waist Circumference 29 in Intake Visit Reasons: OV PO GBP *Ok per AK* Gage Maker Required: No Accompanied by: sister Allergies ibuprofen Allergy (Severe, Verified 11/24/24 12:57) Unknown nifedipine Allergy (Intermediate, Verified 11/24/24 12:57) hives, leg edema HPI Comments Details: The patient is a 54 year old female who underwent initially a laparoscopic sleeve gastrectomy by Dr. Rosen in ~2012. 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 She underwent an initial procedure with lysis of adhesions that did not resolve the issue, followed by a conversion to laparoscopic gastric bypass. She developed again postoperative GI bleeding. The patient continued to have nausea, vomiting and abdominal pain and required an additional procedure a month ago at [facility] for GI bleeding. The operative report stated that the patient did not have the usual Sae-en-y anatomy: the pouch was very large and the previous sleeve was still in place. In addition, there was significant inflammation in the pouch and the patient was asked to quit smoking. The patient was admitted in our hospital last week for abdominal pain, nausea and vomiting. She underwent EGD by Dr. Berry 11/19/2024 which revealed that the pouch was extremely long. The mucosa was diffusely inflamed and engorged. The gastrojejunostomy was patent.There was inflammation and superficial ulcers at the proximal Sae limb. Patient was given pantoprazole and sucralfate, and a meal plan which included 2-3 Ensure Max shakes per day, with 1oz taken q15 min. This was explained to the patient in detail. She presents today in followup. She is no longer smoking. Denies vomiting over the past few days. She reports she has been drinking using the syringe. Taking 2 Ensure shakes per day, also Propel and water. She has also tried Liquid IV when her BP is low as she feels this helps. Total volume of fluids each day around 40oz. She has been taking the carafate and PPI- picked up last night. 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 Lumbar back pain with radiculopathy affecting left lower extremity Physical exam (~02/14/21) Peritoneal dialysis catheter in place Polyarthralgia Dyslipidemia Family history of ovarian cancer Abnormal mammogram of right breast Angina pectoris syndrome Chest pain Constipation Nephrosclerosis Renal interstitial fibrosis Obesity (BMI 30-39.9) Back pain GERD (gastroesophageal reflux disease) History of headache HTN (hypertension) Surgical History History of sleeve gastrectomy S/P arteriovenous (AV) graft placement Fistula Hx of colonoscopy Hx of hysterectomy Hx of tubal ligation History of endometrial ablation Family History Father Asthma Mother Asthma Hypertension Ovarian cancer Maternal Grandfather Myocardial infarction Paternal Grandmother Stroke Social History Household Members: Children Household Members Other:: 30 year old special needs son Housing: Apartment Are you a primary lawn care specialist to a significant other at home: No Do you presently have visiting nurse or other home services: No Alcohol intake: never Comment: low fall risk Patient Tobacco Use Status: Former Tobacco user Tobacco use type: Cigarette Cigarette Packs Per Day: 1 Cigarettes Per Day: 1 Years Smoked: 10+ e-Cigarette/Vaping Use: Never Used Second Hand Smoke Exposure: No Substance Use Type: Caffiene Advance Directives Date on File: 04/27/20 service: No Current occupational status: employed Cognitive needs: No Hearing needs: No Vision needs: Yes (reading glasses) Female Reproductive History Menstrual Age of Menarche: 10 Assessment & Plan Assessment & Plan (1) Anastomotic ulcer S/P gastric bypass: Code(s): K28.9 - Gastrojejunal ulcer, unspecified as acute or chronic, without hemorrhage or perforation Category: Medical Plan Sen in conjunction with our RN. We reviewed taking even carafate at 2ml/min so 10ml dose should take 5 min to take. We again reviewed appropriate drinking pace. She can take up to 8oz of homemade chicken broth, no store bought. Avoid Liquid IV but use Gatorade or Powerade Zero. Repeat EGD in 2 weeks.
[2024-11-24 12:57] VITALS: BP 98/50; PULSE 82; TEMP 36.4; O2SAT 100; BMI 21.5
--- OUTSIDE RECORDS SUMMARY | 2024-11-24 15:53 | XMS_ITS | Clinical Summary ---
Author Organization 175 [facility] Address [address] [place] [address] Phone Care Team Providers Care Utility Engineer Name Role Phone Sam Lynch MD Primary [...] by mouth at bedtime. 06/12/19 25 Active pantoprazole (PROTONIX) 40 mg EC tabletIndicati ons:Marginal ulcer Take 1 tablet (40 mg total) by mouth 1 (one) time each day before breakfast. Do not crush, chew, or split. 30 each 2 10/14/19 25 025 Active ondansetron (ZOFRAN) 4 mg tabletIndicati ons:Hx of obesity,Bariat delon surgery status,Margina l ulcer TAKE 1 TABLET BY MOUTH EVERY 8 HOURS IF NEEDED FOR NAUSEA OR VOMITING. 21 tablet 11/23/19 25 Active ondansetron (ZOFRAN) 4 mg tabletIndicati ons:Hx of obesity,Bariat delon surgery status,Margina l ulcer Take 1 tablet (4 mg total) by mouth every 8 (eight) hours if needed for nausea or vomiting. 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 11/26/2023 Acute kidney failure ([facility] V24) 04/26/2021 Benign essential hypertension 04/26/2021 Dependence on renal dialysis ([facility] V24) 04/26 Disorder of kidney and ureter, unspecified 04/26 ESRD on hemodialysis ([facility] V24, [facility] V28) 04/26/2021 Hypertensive heart and chron ic kidney disease with heart failure and stage 1 through stage 4 chronic kidney disease, or unspecified chronic kidney disease ([facility] V24, [facility] V28) 04/26/2021 Vitamin D deficiency 04/26/2021 Resolved Problems Problem Noted Date Diagnosed Date Resolved Date Upper GI bleed 06/30/2024 07/03/2024 Encounters Date Type Department Care Team Description 10/07/2024 Telephone Bariatric Surgery - [place] [address] [phone] Gerson Rosen MD 09/21/2024 Telephone Bariatric Surgery - [place] [address] [phone] Grace Abarca PA 09/01/2024 3:15 PM EDT Office Visit Bariatric Surgery - [place] [address] [phone] Grace Abarca PA Hx of obesity (Primary Dx); Bariatric surgery status; Marginal ulcer 08/25/2024 8:42 AM EDT - 08/25/2024 6:00 PM EDT Emergency [facility] Emergency [address] [place] [phone] Claude Grey MD Epigastric pain (Primary Dx); Nausea Discharge Disposition: Home or Self Care from Last 3 Months Surgical History Surgery Date Site/Laterality Comments OTHER SURGICAL HISTORY PROCEDURE: DIALYSIS ACCESS SYSTEM LAPAROSCOPIC GASTRIC BANDING PROCEDURE: LAP ADJUSTABLE GASTRIC BAND HYSTERECTOMY PROCEDURE: HISTORICAL HYSTERECTOMY OTHER SURGICAL HISTORY PROCEDURE: COLONOSCOPY LESION REMOVAL OTHER SURGICAL HISTORY 06/13/2021 Left PROCEDURE: ME CRTJ ARVEN FSTL XCP DIR ARVEN ANAST [...] 09/01/2024 3:32 PM EDT Plan of Treatment Health Maintenance Due Date Last Done Comments Breast Cancer Screening 1971 Colorectal Cancer Screening: Colonoscopy 1971 DTaP,Tdap,and Td Vaccines (1 - Tdap) 07/26/1990 Zoster Vaccines (1 of 2) 07/26/1990 Cervical Cancer Screening: Pap Smear 07/26/1992 RSV Immunization Adult Patients (1 - Risk 50-74 years 1-dose series) 07/26/2021 HIV Screening 01/20/2022 Medicare Annual Wellness Visit 01/20/2022 Social Influencers of Health Screening 01/20/2022 Hepatitis B Vaccines (3 of 3 - 19+ 3-dose series) 09/17/2022 06/21/2022, 03/20/2022 Depression Screening 02/11/2024 COVID-19 Vaccine ( - season) 2024 01/19/2021, 07/05/2020, 05/31/2020 Influenza Vaccine (#1) 2024 4, 11/11/2022, 11/14/2021, Additional history exists Hypertension/CHF/CAD Annual BMP Blood Test 10/18/2025 10/18/2024, 10/18/2024, 10/17/2024, Additional history exists Pneumococcal Vaccine: 50+ Years (3 of 3 - PCV20 or PCV21) 03/27/2026 03/27/2021, 10/31/2016 Cholesterol Screening (Lipid Panel) 11/10/2029 11/10/2024, 08/16/2024, 05/14/2024, Additional history exists Hepatitis C Screening Completed 11/02/2020 HIB Vaccines [...] and culture (08/25/2024 3:59 PM EDT) Specific [place] Urine 1.012 1.003 - 1.030 LAB URINALYSIS - AUTOMATED METHOD 08/25/2024 4:35 PM EDT [facility] pH, Urine 8.5(A) 5.0 - 8.0 pH LAB URINALYSIS - AUTOMATED METHOD 08/25/2024 4:35 PM EDT [facility] Leukocytes, Urine Negative Negative LAB URINALYSIS - AUTOMATED METHOD 08/25/2024 4:35 PM EDT [facility] Nitrite, Urine Negative Negative LAB URINALYSIS - AUTOMATED METHOD 08/25/2024 4:35 PM EDT [facility] Protein, Urine 100(A) <=Trace mg/dL [...] 4:35 PM [facility] Bacteria, Urine Negative Negative /HPF LAB URINALYSIS - AUTOMATED METHOD 08/25/2024 4:35 PM [facility] Hyaline Casts, Urine 0.4 0 - 3 /LPF LAB URINALYSIS - AUTOMATED METHOD 08/25/2024 4:35 PM [facility] Urine Urine specimen obtained by clean catch procedure / Unknown Non-blood Collection / Unknown 08/25/2024 3:59 PM EDT 08/25/2024 4:25 PM EDT John PARKER LAB URINE ORDERABLES Jennifer l Result Performing Organization Address [facility]/ZIP Co de Phone Number [facility] [address] [place] [address], [place] [phone] * Anguiano urine culture tube (08/25/2024 3:59 PM EDT) Extra Tube Hold for add-ons. 08/25/2024 6:01 PM EDT [facility] Comment:Auto resulted. Urine Urine specimen obtained by clean catch procedure / Unknown Non-blood Collection / Unknown 08/25/2024 3:59 PM EDT 08/25/2024 4:25 PM EDT us John Bhanu Jones [place] LAB URINE ORDERABLES Jennifer l Result Performing Organization Address [facility] Co de Phone Number [facility] [address] [place] [address], [place] [phone] * [place] Abdomen Limited (08/25/2024 2:10 PM [...] Signed Date: 08/25/2024 14:49 ET Workstation ID: [id number] Transcribed By: Self Edit Transcribed Date: 08/25/2024 [...] Signed Date: 08/25/2024 14:49 ET Workstation ID: [id number] Transcribed By: Self Edit Transcribed Date: 08/25/2024 [...] No evidence of bowel obstruction. Telejaxon PARKER ([id number]) -------- FINAL REPORT -------- Dictated By: Jessy Bob Dictated Date: 08/25/2024 13:11 ET Assigned Physician: Jessy Bob Reviewed and Electronically Signed By: Jessy Bob Signed Date: 08/25/2024 13:29 ET Workstation ID: [id number] Transcribed By: Self Edit Transcribed Date: 08/25/2024 13:11 ET Narrative 08/25/2024 1:29 PM EDT History: Abdominal pain, nausea, vomiting and hematemesis. Prior gastric surgery. End-stage renal disease on hemodialysis. Comparison: 06/30/[address] Technique: Helical volumetric imaging of the abdomen and pelvis was performed following oral contrast and during the uneventful intravenous administration of 90 cc Isovue-370. DLP: 480.35 mGy/cm Recombine VCT Iterative reconstruction technique Findings: The liver [...] of 90 cc Isovue-370. DLP: 480.35 mGy/cm Recombine VCT Iterative reconstruction technique Findings: The liver [...] surgery. No evidenceof bowel obstruction. Cecilia PARKER ([id number]) -------- FINAL REPORT -------- Dictated By: Jessy Bob Dictated Date: 08/25/2024 13:11 ET Assigned Physician: Jessy Bob Reviewed and Electronically Signed By: Jessy Bob Signed Date: 08/25/2024 13:29 ET Workstation ID: [id number] Transcribed By: Self Edit Transcribed Date: 08/25/2024 13:11 ET us John PARKER IMG CT PROCEDURES Final R esult * ECG 12 lead (08/25/2024 9:43 AM EDT) [facility] Ventricular Rate ECG 84 BPM GEMUSE Atrial Rate 84 BPM GEMUSE P-R Interval 102 ms GEMUSE QRS Duration 78 ms GEMUSE Q-T Interval 394 ms GEMUSE QTc 465 ms GEMUSE P Wave [place] 25 degrees GEMUSE R [place] 22 degrees GEMUSE T [place] 52 degrees GEMUSE ECG Interpretation Sinus rhythm with short ME Otherwise normal ECG When compared with ECG of 01-JUL-2024 05:38, No significant change was found Confirmed by KATTY GRANT ([id number]) on 08/25/2024 10:37:08 AM GEMUSE 08/25/2024 9:43 AM EDT 08/25/2024 10:37 AM EDT us Vaibhav Ozuna MD ECG ORDERABLES Final Result GEMUSE * Troponin I high sensitivity (NOW and then in 1 hour) (08/25/2024 9:00 AM EDT) [facility] High Sensitivity Troponin I 6 <=54 ng/L LAB CHEMISTRY METHOD 08/25/2024 10:14 AM EDT [facility] Blood Venous blood specimen / Unknown Venipuncture / Unknown 08/25/2024 9:00 AM EDT 08/25/2024 9:41 AM EDT Narrative [facility] - 08/25/2024 10:14 AM EDT High levels of biotin in samples may falsely decrease hsTroponin values. Use caution when interpreting hsTroponin results in patients taking biotin who exhibit renal impairment (eGFR <60) or in patients taking more than 20 mg/day of biotin. us Vaibhav Ozuna MD LAB BLOOD ORDERABLES Final Re sult [facility] [address] [place] [address], * (ABNORMAL) CBC auto differential (08/25/2024 9:00 AM EDT) WBC 12.4(H) 4.8 - 10.8 K/mcL LAB HEMETOLOGY METHOD 08/25/2024 9:47 AM EDT [facility] RBC 3.60(L) 3.80 - 4.80 M/mcL LAB HEMETOLOGY METHOD 08/25/2024 9[facility] Hemoglobin 11.2(L) 11.5 - 16.0 g/dL LAB HEMETOLOGY METHOD 08/25/2024 9:47 [facility] Hematocrit 34.4(L) 35.0 - 47.0 % LAB HEMETOLOGY METHOD 08/25/2024 9:47 [facility] MCV 95.6 79.0 - 98.0 FL LAB HEMETOLOGY METHOD 08/25/2024 9:47 [facility] MCH 31.1 27.0 - 32.0 pcg LAB HEMETOLOGY METHOD 08/25/2024 9:47 AM [facility] MCHC 32.6 32.0 - 37.0 g/dL LAB HEMETOLOGY METHOD 08/25/2024 9:47 [facility] RDW 15.4(H) 11.0 - [...] 9:47 AM [facility] Immature Granulocytes Relative 0.4 % LAB HEMETOLOGY METHOD 08/25/2024 9:47 AM [facility] Neutrophils Absolute 10.40(H) 1.50 - 7.00 K/mcL LAB HEMETOLOGY METHOD 08/25/2024 9:47 AM [facility] Lymphocytes Absolute 1.08 1.00 - 5.00 K/mcL LAB HEMETOLOGY METHOD 08/25/2024 9:47 AM [facility] Monocytes Absolute 0.59 0.20 - 1.00 K/[facility] LAB HEMETOLOGY METHOD 08/25/2024 9:47 AM EDT [facility] Eosinophils Absolute 0.15 0.00 - 0.50 K/[facility] LAB HEMETOLOGY METHOD 08/25/2024 9:47 AM EDT [facility] Basophils Absolute 0.08 0.00 - 0.20 K/[facility] LAB HEMETOLOGY METHOD 08/25/2024 9:47 AM EDT [facility] Immature Granulocytes Absolute 0.05(H) 0.00 - 0.03 K/[facility] LAB HEMETOLOGY METHOD 08/25/2024 9:47 AM EDT [facility] Blood Venous blood specimen / Unknown Venipuncture / Unknown 08/25/2024 9:00 AM EDT 08/25/2024 9:41 AM EDT us Vaibhav Ozuna MD LAB BLOOD ORDERABLES Final Re sult [facility] [address] [place] [address], * Type and screen (08/25/2024 9:00 AM EDT) ABO Group O 08/25/2024 10:25 AM EDT [facility] Rh Type Positive 08/25/2024 10:25 AM EDT [facility] Antibody Screen Negative 08/25/2024 10:25 AM EDT [facility] Blood Venous blood specimen / Unknown Venipuncture / Unknown 08/25/2024 9:00 AM EDT 08/25/2024 9:41 AM EDT us Vaibhav Ozuna MD LAB BLOOD BANK TEST ORDERABLE S Final Result [facility] [address] [place] [address], [place] [phone] * Phosphorus (08/25/2024 9:00 AM EDT) Phosphorus 3.2 2.5 - 4.5 mg/dL LAB CHEMISTRY METHOD 08/25/2024 10:12 AM EDT [facility] Blood Venous blood specimen / Unknown Venipuncture / Unknown 08/25/2024 9:00 AM EDT 08/25/2024 9:41 AM EDT John PARKER LAB BLOOD ORDERABLES Jennifer l Result [facility] [address] [place] [address], [place] [phone] * Magnesium (08/25/2024 9:00 AM EDT) Pathologist [facility] Magnesium 2.1 1.9 - 2.6 mg/dL LAB CHEMISTRY METHOD 08/25/2024 10:12 AM EDT [facility] Blood Venous blood specimen / Unknown Venipuncture / Unknown 08/25/2024 9:00 AM EDT 08/25/2024 9:41 AM EDT John PARKER LAB BLOOD ORDERABLES Jennifer l Result [facility] [address] [place] [address], [place] [phone] * (ABNORMAL) Lipase (08/25/2024 9:00 AM EDT) Lipase 96(H) 13 - 75 unit/L LAB CHEMISTRY METHOD 08/25/2024 10:12 AM EDT [facility] Blood Venous blood specimen / Unknown Venipuncture / Unknown 08/25/2024 9:00 AM EDT 08/25/2024 9:41 AM EDT us Vaibhav Ozuna MD LAB BLOOD ORDERABLES Final Re sult [facility] [address] [place] [address], [place] [phone] * (ABNORMAL) Comprehensive metabolic panel (08/25/2024 9:00 AM EDT) Sodium 135 133 - 145 mmol/L LAB [...] LAB CHEMISTRY METHOD 08/25/2024 10:13 AM EDT [facility] AST (SGOT) 20 10 - 42 unit/L LAB CHEMISTRY METHOD 08/25/2024 10:13 AM T [facility] ALT (SGPT) 29 10 - 60 unit/L LAB CHEMISTRY METHOD 08/25/2024 10:13 AM EDT [facility] Alkaline Phosphatase 216(H) 42 - 121 unit/L LAB CHEMISTRY METHOD 08/25/2024 10:13 AM T [facility] Total Protein 6.2 6.0 - 8.0 g/dL LAB CHEMISTRY METHOD 08/25/2024 10:13 AM [facility] Albumin 3.2 3.2 - 5.0 g/dL LAB CHEMISTRY METHOD 08/25/2024 10:13 AM [facility] Total Bilirubin 0.3 0.0 - 1.4 mg/dL LAB CHEMISTRY METHOD 08/25/2024 10:13 AM T [facility] Blood Venous blood specimen / Unknown Venipuncture / Unknown 08/25/2024 9:00 AM EDT 08/25/2024 9:41 AM EDT us Vaibhav Ozuna MD LAB BLOOD ORDERABLES Final Re sult [facility] [address] [place] [address], from Last 3 Months Insurance MEDICAID - [place] MEDICARE Advance Directives Documents on File Type Date Recorded Patient Hides Inspector Expl anation Health Care Decision (hx) 07/24/2023 [...] currently active code status orders. Care Teams Utility Engineer Relationship Specialty Start Date End Date Sam Lynch MD [address] [place] [address] [address] [place] [address] [place] PCP - General 10/25/22
--- OUTSIDE RECORDS SUMMARY | 2024-11-24 15:54 | XMS_ITS | Clinical Summary ---
Author Organization [facility] Address [address] [facility] [address] [place] [address] Phone Care Team Providers Care Regulatory Affairs Portfolio Leader Name Role Phone Rozina Nicole MD Primary [...] 2024-2 6 season) 2024 01/19/2021, 07/05/2020, 05/31/2020 RSV VACCINE (1 - 1-dose 75+ series) 07/26/2046 COLORECTAL CANCER SCREENING Completed HEPATITIS A VACCINES [...] Devices Not on file Insurance [place] [address] [place] [address] [place] [address] [place] [address] [place] [address] [place] [address] [place] [address] [address] [place] [address] Care Teams Regulatory Affairs Portfolio Leader Relationship Specialty Start Date End Date Rozina Nicole MD [address] [place] [address] PCP - General 06/26/18 Additional Source Comments The information contained in this document represents components of the legal health record. It is not the complete legal health record.[facility]
--- OUTSIDE RECORDS SUMMARY | 2024-11-24 15:54 | XMS_ITS | Clinical Summary ---
Author Organization [facility] Address [address] [place] [address] Care Team Providers Care Display Designer Name Role Phone Rozina Nicole MD Primary Care Provider [phone] Jon Wang MD Unavailable [phone] Allergies No known active allergies Medications famotidine (PEPCID) 20 MG tablet Take 1 tablet (20 mg total) by mouth daily as needed. 5 Active melatonin 10 MG capsule Take 2 capsules (20 mg total) by mouth nightly. Active citalopram (CeleXA) 20 MG tablet Take 1 tablet (20 mg total) by mouth daily. 5 Active gabapentin (NEURONTIN) 100 MG capsuleIndicatio ns:Chronic low back pain, unspecified back pain laterality, unspecified whether sciatica present Take 1 capsule (100 mg total) by mouth daily. 30 capsule 5 Active sucralfate (CARAFATE) 1 g tabletIndication s:Gastrointestin al hemorrhage with hematemesis Take 1 tablet (1 g total) by mouth 4 (four) times a day. 120 tablet 5 Active PANTOprazole (PROTONIX) 40 MG EC tabletIndication s:Gastrointestin al hemorrhage with hematemesis Take 1 tablet (40 mg total) by mouth 2 times a day. 60 tablet 3 5 02/16/19 26 Active misoprostol (CYTOTEC) 200 MCG tabletIndication s:Gastrointestin al hemorrhage with hematemesis Take 1 tablet (200 mcg total) by mouth 4 (four) times a day after meals and nightly. 120 tablet Active Active Problems Problem Noted Date Diagnosed [...] 10/13/2024 8:31 PM EDT Anesthesia Event [facility] [address] [facility] [place] [address] Enmanuel Fisher MD 10/13/2024 8:00 PM EDT - 10/13/2024 9:51 PM EDT Surgery [facility] [address] [facility] [place] [address] David Harrell MD LAPAROSCOPY DIAGNOSTIC, LYSIS OF ADHESIONS 10/11/2024 12:06 PM EDT Anesthesia Event [facility] [address] [place] [address], [place] [address] Irving Oliver DO Boucher, Sarah J, BRIM BLOCKER 10/11/2024 11:40 AM EDT - 10/11/2024 12:19 PM EDT Surgery [facility] [address] [place] [address], [place] [address] Kristopher Kramer MD ENDOSCOPY UPPER 10/11/2024 1:59 AM EDT - 10/19/2024 4:00 PM EDT Hospital Encounter [facility] [address] [facility] [place] [address] Aniket Chand III, Roberta Gutiérrez MD Elajami, Mohamad, MD Sabir, Fastina Khan, MD Gastrointestinal hemorrhage with hematemesis (Primary Dx); Melena; Chronic low back pain, unspecified back pain laterality, unspecified whether sciatica present Discharge Disposition: Home or Self Care 10/11/2024 Travel from Last 3 Months Social History Tobacco Use Types Packs/Day Years Used Date Smoking Tobacco: Former Cigarettes Passive Smoke Exposure: Past Tobacco Cessation:Counseling Given: Not Answered [facility] Utilities Answer Date Recorded In the past 12 months has [employer], oil, or water [employer] threatened to shut off services in your [...] any time in the past 12 m [facility], were you homeless or living in a fpc (including now)? No 10/11/2024 Comments Unknown Sex [...] of4 resultswithin the time period is included. White Blood Cell Count 4.4 4.0 - 11.0 Thou/uL 10/18/2024 8:09 AM [facility] Platelet Count 275 150 - 450 Thou/uL 10/18/2024 8:09 AM [facility] Hemoglobin 8.2(L) 11.7 - 15.7 g/dL 10/18/2024 8:09 AM [facility] Hematocrit 25.4(L) 35.0 - 47.0 % 10/18/2024 8:09 AM [facility] Red Blood Cell Count 2.74(L) 4.00 - 5.40 Mil/uL 10/18/2024 8:09 AM [facility] MCV 93 80 - 100 fL 10/18/2024 8:09 AM [facility] MCH 29.9 27.0 - 31.0 pg 10/18/2024 8:09 AM [facility] MCHC 32.3 30.0 - 36.0 g/dL 10/18/2024 8:09 AM [facility] RDW 17.2(H) 11.5 - 14.5 % 10/18/2024 8:09 AM [facility] MPV 9.0 7.5 - 12.5 fL 10/18/2024 8:09 AM [facility] Neutrophils Auto 55.0 % 10/19/19 8:09 AM [facility] Immature Granulocytes 0.5 % 10/18/2024 8:09 AM [facility] Lymphocytes Auto 29.9 % 10/19/19 8:09 AM [facility] Monocytes Auto 9.4 % 10/18/2024 8:09 AM [facility] Eosinophils Auto 4.3 % 10/19/19 8:09 AM [facility] Basophils Auto 0.9 % 10/18/2024 8:09 AM [facility] Abs Neutrophils Auto 2.41 2.00 - 7.50 Thou/uL 10/18/2024 8:09 AM [facility] Abs Immature Granulocytes 0.02 0.00 - 0.10 Thou/uL 10/18/2024 8:09 AM [facility] Abs Lymphocytes Auto 1.31(L) 1.50 - 4.50 Thou/uL 10/18/2024 8:09 AM [facility] Abs Monocytes Auto 0.41 0.20 - 1.50 Thou/uL 10/18/2024 8:09 AM [facility] Abs Eosinophils Auto 0.19 0.00 - 0.70 Thou/uL 10/18/2024 8:09 AM [facility] Abs Basophils Auto 0.04 0.00 - 0.20 Thou/uL 10/18/2024 8:09 AM [facility] Blood Blood specimen / Unknown 10/18/2024 7:19 AM EDT 10/18/2024 7:55 AM EDT us Arina Amaya MD LAB BLOOD ORDERABLES Final Result [address] [address], [address] [address] * (ABNORMAL) Basic Metabolic Panel (10/18/2024 7:19 AM EDT) Only the most recent of9 resultswithin the time period is included. [facility] Signature Glucose 87 65 - 99 mg/dL 10/18/2024 8:29 AM [facility] Comment:Fasting: <100 mg/dL, Non-Fasting: <200 mg/dL (ADA 2005) Blood Urea Nitrogen (BUN) 13 8 - 21 mg/dL 10/18/2024 8:29 AM [facility] Creatinine 4.8(H) 0.4 - 1.1 mg/dL 10/18/2024 8:29 AM [facility] eGFR 10(L) >59 10/18/2024 8:29 AM [facility] Comment:CKD-EPI (2020) in mL /min/1.73 sq meters. Sodium 137 136 - 145 mmol/L 10/18/2024 8:29 AM [facility] Potassium 3.6 3.4 - 5.3 mmol/L 10/18/2024 8:29 AM [facility] Chloride 103 98 - 107 mmol/L 10/18/2024 8:29 AM [facility] CO2 26 22 - 33 mmol/L 10/18/2024 8:29 AM [facility] Anion Gap 8 7 - 17 10/18/2024 8:29 AM [facility] Calcium 8.9 8.7 - 10.5 mg/dL 10/18/2024 8:29 AM [facility] BUN/Creatinine Ratio 3(L) 10.0 - 25.0 Ratio 10/18/2024 8:29 AM [facility] Blood Blood specimen / Unknown 10/18/2024 7:19 AM EDT 10/18/2024 7:55 AM EDT us Arina Amaya MD LAB BLOOD ORDERABLES Final Result [address] [address], [address] [address] * Transfuse RBC's: (10/15/2024 9:14 PM EDT) us Arina Amaya MD BLOOD TRANSFUSION ORDERABL ES Final Result * Type and Screen (10/15/2024 2:19 PM EDT) Only the most recent of2 resultswithin the time period is included. ABO/Rh O POSITIVE 10/15/2024 4:38 PM EDT [facility] Antibody Screen NEGATIVE 10/15/2024 4:38 PM EDT [facility] Specimen Expiration 10/18/2024 10/15/2024 4:38 PM EDT [facility] Unit Number [id number] 10/15/2024 6:22 PM EDT [facility] Blood Component Type LR RBC CONTAINER 2 10/15/2024 6:22 PM EDT [facility] Unit Division 00 10/15/2024 6:22 PM EDT [facility] Unit Status ISSUED,FINAL 10/16/2024 12:08 AM EDT [facility] Transfusion Status OK TO TRANSFUSE 10/15/2024 6:22 PM EDT [facility] Crossmatch Result Electronically Compatible 10/15/2024 6:22 PM EDT [facility] Blood Blood specimen / Unknown 10/15/2024 2:19 PM EDT 10/15/2024 3:38 PM EDT Comment:Blood Arina Amaya MD BLOOD BANK TEST ORDERABLES Final Result Performing Organization Address [facility] [[email or web address]] Co de Phone Number HOSPITAL LAB See Below [address] [address] * Prepare RBC's:Prepare in: Units; Number of Units: 1; Transfusion Indications: Hemoglobin less than 7 gm/dl or HCT less than 21% (10/15/2024 1:22 PM EDT) Only the most recent of2 resultswithin the time period is included. Units Ordered 1 10/15/2024 1:22 PM EDT 10/15/2024 1:22 PM EDT 10/15/2024 6:23 PM EDT Arina Amaya MD BLOOD BANK PRODUCT ORDERAB LES Final Result HOSPITAL LAB See Below * (ABNORMAL) COMPLETE BLOOD COUNT, WITHOUT DIFFERENTIAL (10/15/2024 7:57 AM EDT) Only the most recent of4 resultswithin the time period is included. White Blood Cell Count 4.1 4.0 - 11.0 Thou/uL 10/15/2024 8:55 AM [facility] Platelet Count 218 150 - 450 Thou/uL 10/15/2024 8:55 AM [facility] Hemoglobin 7.0(L) 11.7 - 15.7 g/dL 10/15/2024 8:55 AM [facility] Hematocrit 21.8(L) 35.0 - 47.0 % 10/15/2024 8:55 AM [facility] Red Blood Cell Count 2.25(L) 4.00 - 5.40 Mil/uL 10/15/2024 8:55 AM [facility] MCV 97 80 - 100 fL 10/15/2024 8:55 AM [facility] MCH 31.1(H) 27.0 - 31.0 pg 10/15/2024 8:55 AM [facility] MCHC 32.1 30.0 - 36.0 g/dL 10/15/2024 8:55 AM [facility] RDW 14.4 11.5 - 14.5 % 10/15/2024 8:55 AM [facility] MPV 9.2 7.5 - 12.5 fL 10/15/2024 8:55 AM [facility] Blood Blood specimen / Unknown 10/15/2024 7:57 AM EDT 10/15/2024 8:[address] Foss MD LAB BLOOD ORDERABLES Final Re sult [address] [address], [address] [address] * Phosphorus (10/15/2024 7:57 AM EDT) Only the most recent of2 resultswithin the time period is included. Pathologist [facility] Phosphorus 3.8 2.7 - 4.5 mg/dL 10/15/2024 11:43 AM EDT [facility] 10/15/2024 7:57 AM EDT 10/15/2024 8:[address] Foss MD LAB BLOOD ORDERABLES Final Re sult Performing Organization Address City/[facility] [[email or web address]] Co de Phone Number [address] [address], [address] [address] * Magnesium (10/15/2024 7:57 AM EDT) Only the most recent of3 resultswithin the time period is included. Magnesium 1.8 1.6 - 2.7 mg/dL 10/15/2024 10:04 AM EDT [facility] Blood Blood specimen / Unknown 10/15/2024 7:57 AM EDT 10/15/2024 8:[address] Foss MD LAB BLOOD ORDERABLES Final Re sult Performing Organization Address [facility] [[email or web address]] [place] [address], [address] [address] * (ABNORMAL) TRANSFERRIN (10/14/2024 10:10 AM EDT) Transferrin 125(L) 200 - 360 mg/dL 10/14/2024 12:13 PM EDT [facility] Blood Blood specimen / Unknown 10/14/2024 10:10 AM EDT 10/14/2024 11:23 AM EDT David Harrell MD LAB BLOOD ORDERABLES Final R esult Performing Organization Address City/[facility]/ZIP Co de Phone Number [address] [address], [address] [address] * PREALBUMIN (10/14/2024 10:10 AM EDT) Prealbumin 24 20 - 40 mg/dL 10/14/2024 12:13 PM EDT [facility] Blood Blood specimen / Unknown 10/14/2024 10:10 AM EDT 10/14/2024 11:23 AM EDT us David Harrell MD LAB BLOOD ORDERABLES Final R esult Performing Organization Address City/[facility]/[place] [address], [place] [address] * (ABNORMAL) ALBUMIN (10/14/2024 10:10 AM EDT) Albumin 3.1(L) 3.5 - 5.0 g/dL 10/14/2024 12:13 PM EDT [facility] Blood Blood specimen / Unknown 10/14/2024 10:10 AM EDT 10/14/2024 11:23 AM EDT us David Harrell MD LAB BLOOD ORDERABLES Final R esult Performing Organization Address City/[facility] [[email or web address]] [place] [address], [place] [address] * Nicotine, Cotinine, Serum (10/14/2024 5:50 AM EDT) Nicotine <2 ng/mL 10/19/2024 9:54 AM EDT [facility] [place] Comment: (NOTE) Reference Ranges(ng/mL): Non-Smoker Active Tobacco User < or = to 4 2-10 Cotinine <2 ng/mL 10/19/2024 9:54 AM EDT [facility] Comment: (NOTE) Reference Ranges(ng/mL): Non-Smoker Active Tobacco User < or = to 8 16-145 This test was developed and its analytical performance characteristics have been determined by [facility] [place], [place]. It has not been cleared or approved by the U.S. Food and Drug Administration. This assay has been validated pursuant to the CLIA regulations and is used for clinical purposes. Blood Blood specimen / Unknown 10/14/2024 5:50 AM EDT 10/14/2024 6:22 AM EDT David Harrell MD LAB BLOOD ORDERABLES Final R esult [employer], [place] [address] [facility] [address] [address] [place], [place] , [facility], [place] [address] [facility] [address] [address] [place], [place] * ANES INTUBATION (10/13/2024 8:59 PM EDT) Narrative Jon House CRNA - 10/13/2024 8:59 PM EDT Jon House CRNA 10/13/2024 8:59 PM Anesthesia Procedure Note - intubation Patient Name: Meliza Perry : 1970 Patient location: [place] Procedure diagnosis: Anesthesia Performed by: Resident/BRIM BLOCKER Preanesthetic Checklist . Patient's pre-procedure mental status: [...] front tooth loose, no change with DL Enmanuel Fisher MD [place] ANESTHESIA Final Result * CT Abdomen+pelvis w [...] Screen Nonreactive Nonreactive 10/12/2024 11:17 AM EDT [facility] Blood Blood specimen / Unknown 10/11/2024 3:01 PM EDT 10/11/2024 4:41 PM EDT us Efrain Campos MD LAB BLOOD ORDERABLES Final Result [facility] [address] [place] [address], [place] * Hepatitis B Virus (HBV) Core Antibody Total (10/11/2024 3:01 PM EDT) Hepatitis B Core Antibody Total Nonreactive Nonreactive 10/12/2024 11:17 AM EDT [facility] Blood Blood specimen / Unknown 10/11/2024 3:01 PM EDT 10/11/2024 4:41 PM EDT us Efrain Campos MD LAB BLOOD ORDERABLES Final Result [facility] [address] [place] [address], [place] * Hepatitis B Virus (HBV) Surface Antibody (10/11/2024 3:01 PM EDT) Hepatitis B Surface Antibody Reactive (Immune) Reactive (Immune) 10/12/2024 11:17 AM EDT [facility] Blood Blood specimen / Unknown 10/11/2024 3:01 PM EDT 10/11/2024 4:41 PM EDT us Efrain Campos MD LAB BLOOD ORDERABLES Final Result [facility] [address] [place] [address], [place] * POCT Glucose, Fingerstick (10/11/2024 1:21 PM EDT) Only the most recent of2 resultswithin the time period is included. POC Glucose 86 65 - 99 mg/dL 10/11/2024 1:25 PM EDT Blood specimen / Unknown 10/11/2024 1:21 PM EDT 10/11/2024 1:25 PM EDT us Aniket Chand III, DO POINT OF CARE TEST ORDERA BLES Final Result HOSPITAL LAB See Below * XR Chest [...] abnormality. IMPRESSION: No acute cardiopulmonary findings. Roberta Oh MD [facility] ORDERABLE S Final Result * Lactic Acid, Plasma (10/11/2024 2:25 AM EDT) Lactic Acid 1.3 0.5 - 1.9 mmol/L 10/11/2024 3:00 AM EDT [facility] Blood Blood specimen / Unknown 10/11/2024 2:25 AM EDT 10/11/2024 2:43 AM EDT us Aniket Chand III, DO LAB BLOOD ORDERABLES Jennifer l Result Performing Organization Address City/[facility]/ZIP Co de Phone Number [address] [address], [place] [address] * ABO Confirmation (10/11/2024 2:24 AM EDT) ABO/Rh O POSITIVE 10/11/2024 3:26 AM EDT [facility] Blood Blood specimen / Unknown 10/11/2024 2:24 AM EDT 10/11/2024 2:51 AM EDT us Aniket Chand III, DO BLOOD BANK TEST ORDERABLE S Final Result Performing Organization Address [facility] [[email or web address]] [place] [address], [place] [address] * (ABNORMAL) Hepatic function panel (10/11/2024 2:24 AM EDT) Alkaline Phosphatase 91 32 - 122 U/L 10/11/2024 3:03 AM EDT [facility] Aspartate Aminotrans (AST) 10 10 - 50 U/L 10/11/2024 3:03 AM EDT [facility] Alanine Aminotrans (ALT) 5(L) 10 - 50 U/L 10/11/2024 3:13 AM EDT [facility] Bilirubin, Total 0.3 0.2 - 1.0 mg/dL 10/11/2024 3:03 AM T [facility] Protein, Total 4.6(L) 6.3 - 8.3 g/dL 10/11/2024 3:03 AM EDT [facility] Albumin 2.7(L) 3.5 - 5.0 g/dL 10/11/2024 3:03 AM EDT [facility] Bilirubin, Direct 0.1 0 - 0.2 mg/dL 10/11/2024 3:03 AM EDT [facility] Globulin 1.9 1.5 - 3.9 g/dL 10/11/2024 3:03 AM EDT [facility] Albumin/Globulin Ratio 1.4 1.0 - 3.0 Ratio 10/11/2024 3:03 AM EDT [facility] Blood Blood specimen / Unknown 10/11/2024 2:24 AM EDT 10/11/2024 2:44 AM EDT us Aniket Chand III, DO LAB BLOOD ORDERABLES Jennifer alarcon Result [facility] [address] [place] [address], [facility] [address] [place] [address] from Last 3 Months Insurance [employer] PART A & B [employer] PART [employer] & B [place] [facility] MEDIC[facility] PART A & B Advance Directives * Full Code (Latest Code Status on File) Date Activated Date Inactivated Comments 10/11/2024 5:25 AM Care Teams Display Designer Relationship Specialty Start Date End Date Rozina Nicole MD [address] [place] [address] PCP - General Family Medicine 10/11/24 Jon Wang MD [address] [facility] [address] [place] [address] Physician Internal Medicine 10/11/24
== END 2024-11-24 13:25 | disposition home or self-care (01) ==
LOC: HO.HBS 12:37
PROVIDERS: PCP Internal Medicine; Visit Provider Physician Assistant Surgical
DX: K28.9 Gastrojejunal ulcer, unspecified as acute or chronic, without hemorrhage or perforation (principal)
CPT/HCPCS: 99214; G2211

== ENCOUNTER → 2024-11-24 12:37 | Outpatient (BNVA) | payer MEDICARE, MEDICAID, SELFPAY | PROVIDERS: PCP Internal Medicine; Visit Provider Physician Assistant Surgical | DX: R01.1 Cardiac murmur, unspecified (principal); K25.9 Gastric ulcer, unspecified as acute or chronic, without hemorrhage or perforation; M54.50 Low back pain, unspecified; G89.29 Other chronic pain; K28.9 Gastrojejunal ulcer, unspecified as acute or chronic, without hemorrhage or perforation; Z79.899 Other long term (current) drug therapy; Z13.30 Encounter for screening examination for mental health and behavioral disorders, unspecified | CPT/HCPCS: 96127; 99212; 99496 ==

== ENCOUNTER 2024-11-24 14:55 | Outpatient (AMB) | payer MEDICARE, MEDICAID, SELFPAY ==
--- NOTE | 2024-11-24 15:05 | A.OFFPC_ITS ---
Vital Signs 11/24/24 15:08 Height 5 ft 5 in Weight 132 lb 6 oz BMI 22.0 BP 118/58 L Blood Pressure Location Lt brachial Position Sitting Respiration 18 Pulse 83 Pulse Source Pulse Oximeter Temp 97.1 F Temp Source Temporal Artery Scan Pulse Oximetry (%) 98 Oxygen Delivery Method Room Air Intake Visit Reasons: TCM [facility] 11/19 Ulcers Meat Lugger Required: No Accompanied by: Self / Same As Patient Allergies ibuprofen Allergy (Severe, Verified 11/24/24 15:12) Unknown nifedipine Allergy (Intermediate, Verified 11/24/24 15:12) hives, leg edema Tobacco use date assessed: 11/24/24 Dental Screening Dental Screen Date: 11/24/24 HPI TCM TCM Information Date of Discharge 11/19/24 Discharged From [facility] Interactive Contact Date (Reference documentation from this date) 11/19/24 HPI Comments History of Present Illness Details The patient is a 54-year-old female presenting as TCM after recent hospitalizaiton for gastric ulcer. She was admitted from 11/14 to 11/19 and underwent upper EGD with plan to followup with GI for repeat EGD. She was prescribed Pantoprazole indefinitely and sucralfate. She also received 1 unit of blood. The patient has been experiencing recurrent gastric ulcers for over a year, leading to frequent hospitalizations, sometimes requiring a week-long stay followed by brief periods at home before readmission. She has been unable to consume solid foods and relies on protein shakes and water, which she consumes using a syringe due to difficulty with oral intake. The patient reports chronic back pain with sciatica, which is exacerbated by herniated discs at L4 and L5, and pinched nerves. She experiences severe pain that limits her mobility and daily activities, and she has been advised against surgery due to potential complications. The patient also reports a heart murmur, for which she has been referred to a community health director for further evaluation. Additionally, the patient is experiencing depression, feeling overwhelmed by her multiple health issues and frequent hospitalizations. 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 Lumbar back pain with radiculopathy affecting left lower extremity Physical exam (~02/14/21) Peritoneal dialysis catheter in place Polyarthralgia Dyslipidemia Family history of ovarian cancer Abnormal mammogram of right breast Angina pectoris syndrome Chest pain Constipation Nephrosclerosis Renal interstitial fibrosis Obesity (BMI 30-39.9) Back pain GERD (gastroesophageal reflux disease) History of headache HTN (hypertension) Surgical History History of sleeve gastrectomy S/P arteriovenous (AV) graft placement Fistula Hx of colonoscopy Hx of hysterectomy Hx of tubal ligation History of endometrial ablation Family History Father Asthma Mother Asthma Hypertension Ovarian cancer Maternal Grandfather Myocardial infarction Paternal Grandmother Stroke Social History Household Members: Children Household Members Other:: 30 year old special needs son Housing: Apartment Are you a primary team primary care physician to a significant other at home: No Do you presently have visiting nurse or other home services: No Alcohol intake: never Comment: low fall risk Patient Tobacco Use Status: Former Tobacco user Tobacco use type: Cigarette Cigarette Packs Per Day: 1 Cigarettes Per Day: 1 Years Smoked: 10+ e-Cigarette/Vaping Use: Never Used Second Hand Smoke Exposure: No Substance Use Type: Caffiene Advance Directives Date on File: 04/27/20 service: No Current occupational status: employed Cognitive needs: No Hearing needs: No Vision needs: Yes (reading glasses) Female Reproductive History Menstrual Age of Menarche: 10 Questionnaire PHQ-9 Over the last 2 weeks, how often have you been bothered by any of the following problems? 1. Little interest or pleasure in doing things: nearly every day 2. Feeling down, depressed, or hopeless: nearly every day 3. Trouble falling or staying asleep, or sleeping too much: nearly every day 4. Feeling tired or having little energy: nearly every day 5. Poor appetite or overeating: not at all 6. Feeling bad about yourself - or that you are a failure or have let yourself or your family down: nearly every day 7. Trouble concentrating on things, such as reading the newspaper or watching television: several days 8. Moving or speaking so slowly that other people could have noticed. Or the opposite - being so fidgety or restless that you have been moving around a lot more than usual: more than half the days 9. Thoughts that you would be better off or of hurting yourself in some way: not at all Total score: 18 Source: Developed by Drs. Brandan Schmitz, Tricia Asher, Carlos Blue and colleagues, with an educational lore from [employer]. Thrive Questionnaire Date Thrive assessed: 11/15/24 I am a: Patient What is your living situation today?: I have a steady place to live Within the past 12 months, did the food you bought not last and you didn't have the money to get more?: Never true Within the past 12 months, did you worry whether your food would run out before you got money to buy more?: Never true Do you have trouble paying for medicines?: No Do you have trouble getting transportation to medical appointments?: No Do you have trouble paying your heating and electricity bill?: No Do you have trouble taking care of your child, family member or friend?: No Do you have trouble with day-to-day activities such as bathing, preparing meals, shopping, managing finances, etc.?: Yes Are you currently unemployed and looking for a job?: I choose not to answer this question Are you interested in more education?: No Please select the resources that you would like help with: Daily support Currently or been in a relationship where the following occur: No concerns reported THRIVE Score: 0 AUDIT C Alcohol Use Questionnaire (AUDIT-C) 1. How often do you have a drink containing alcohol?: Never Total Score: 0 JULIA-7 AMB Questionnaire JULIA-7 Date JULIA - 7 assessed: 06/11/24 Feeling nervous, anxious, or on edge: 3 = Nearly every day Not being able to stop or control worryin = Nearly every day Worrying too much about different things: 3 = Nearly every day Trouble relaxin = More than half the days Being so restless that it is hard to sit still: 0 = Not at all Becoming easily annoyed or irritable: 1 = Several days Feeling afraid as if something awful might happen: 0 = Not at all Total JULIA-7 score (0-4 normal; 5-9 mild; 10-14 moderate; 15-21 severe): 12 Source: Developed by Drs. Brandan Schmitz, Tricia Asher, Carlos Blue and colleagues, with an educational lore from [employer]. Review of Systems Const Details: Positives besides what was mentioned in HPI are in BOLD Constitutional: No Weight Change, No Fever, No Chills, No Night Sweats, No Fatigue, No Malaise ENT/Mouth: No Hearing Changes, No Ear Pain, No Nasal Congestion, No Sinus Pain, No Hoarseness, No sore throat, No Rhinorrhea, No Swallowing Difficulty Eyes: No Eye Pain, No Swelling, No Redness, No Foreign Body, No Discharge, No Vision Changes Cardiovascular: No Chest Pain, No SOB, No PND, No Dyspnea on Exertion, No Orthopnea, No Claudication, No Edema, No Palpitations Respiratory: No Cough, No Sputum, No Wheezing, No Smoke Exposure, No Dyspnea Gastrointestinal: No Nausea, No Vomiting, No Diarrhea, No Constipation, No Pain, No Heartburn, No Anorexia, No Dysphagia, No Hematochezia, No Melena, No Flatulence, No Jaundice Genitourinary: No Dysmenorrhea, No DUB, No Dyspareunia, No Dysuria, No Urinary Frequency, No Hematuria, No Urinary Incontinence, No Urgency, No Flank Pain, No Urinary Flow Changes, No Hesitancy Musculoskeletal: No Arthralgias, No Myalgias, No Joint Swelling, No Joint Stiffness, No Back Pain, No Neck Pain, No Injury History Skin: No Skin Lesions, No Pruritis, No Hair Changes, No Breast/Skin Changes, No Nipple Discharge Neuro: No Weakness, No Numbness, No Paresthesias, No Loss of Consciousness, No Syncope, No Dizziness, No Headache, No Coordination Changes, No Recent Falls Psych: No Anxiety/Panic, No Depression, No Insomnia, No Personality Changes, No Delusions, No Rumination, No SI/HI/AH/VH, No Social Issues, No Memory Changes, No Violence/Abuse Hx., No Eating Concerns Heme/Lymph: No Bruising, No Bleeding, No Transfusions History, No Lymphadenopathy Endocrine: No Polyuria, No Polydipsia, No Temperature Intolerance Physical exam (Primary Care) Vital Signs: Last Vital Signs Temp 97.1 F 10/15/25 15:08 Pulse 83 11/24/24 15:08 Resp 18 11/24/24 15:08 BP 118/58 L 11/24/24 15:08 Pulse Ox 98 11/24/24 15:08 Oxygen Delivery Method Room Air 11/24/24 15:08 BMI result Body Mass Index 22.0 Tobacco/Smoking Status: Tobacco use Status Tobacco use date assessed 11/24/24 11/24/24 15:17 Patient Tobacco Use Status Former Tobacco user 11/24/24 15:06 Tobacco use type Cigarette 11/24/24 15:06 e-Cigarette/Vaping Use Never Used 11/24/24 15:06 PHQ-9: PHQ-9 Score PHQ-9: Total score 18 11/24/24 15:06 Thrive Assessment: Date of Thrive Assessment Date Thrive assessed 11/15/24 11/24/24 15:06 Currently or been in a relationship where the following occur: No concerns reported Const Other: Pertinent findings are in BOLD GENERAL APPEARANCE NAD, activity normal for age, well developed/ well nourished, no cyanosis, pallor, or diaphoresis. EYES lids/conjunctiva normal. EARS/NOSE/THROAT Mucous membranes moist, nares normal, lips/teeth normal uvula midline without oral pharyngeal erythema, exudate or swelling TMs normal bilaterally. No lymphangitis/lymphedema. HEAD/NECK normocephalic atraumatic, no facial trauma, neck is supple. RESPIRATORY respiratory effort normal, speaks in full sentences, no tripod position, no accessory muscle use. Lungs clear to auscultation without rhonchi, wheezes, rales CARDIAC Regular rate and rhythm, no edema. ABDOMINAL Soft, ND/NT. No evidence of fluid wave. No pulsatile masses on exam, rebound tenderness, Reis sign or pain over Mcburney's point. MUSCLES/EXTREMITIES No abnormal range of motion, no swelling. SKIN Warm, pink and dry. No rashes, dermatoses, petechiae or lesions. NEUROLOGICAL Speech is clear and appropriate. Normal level of consciousness. Gait and coordination are normal. 5/5 strength in all extremities. PSYCH Normal mood and affect. Judgement/competence is appropriate Coding Level of Care Code TCM High MDM <= 7 Days Diagnoses Murmur R01.1 Gastric ulcer K25.9 Chronic low back pain M54.50; G89.29 Time Spent (min) 40 Assessment & Plan Assessment & Plan (1) Murmur: Code(s): R01.1 - Cardiac murmur, unspecified Category: Medical Plan: Cardiology referral. (2) Gastric ulcer: Code(s): K25.9 - Gastric ulcer, unspecified as acute or chronic, without hemorrhage or perforation Category: Medical Plan: She has followup with GI for repeat EGD. Advised the patient to continue with Omeprazole and sucralfate. (3) Chronic low back pain: Code(s): M54.50 - Low back pain, unspecified; G89.29 - Other chronic pain Category: Medical Plan: Advised patient to follow-up with her PCP for pain management options. Patient agreable. Plan During the visit, the patient was seen after recent hospitalization. The patient was informed about the referral to a community health director for further evaluation of the heart murmur. We discussed the chronic back pain management plan. Orders: Referrals Cardiology Referral R01.1 - Cardiac murmur, unspecified
[2024-11-24 15:08] VITALS: BP 118/58; PULSE 83; RESP 18; TEMP 36.2; O2SAT 98; BMI 22.0
== END 2024-11-24 16:52 | disposition home or self-care (01) ==
LOC: HO.HMCH 14:56
PROVIDERS: PCP Internal Medicine; Visit Provider Internal Medicine
DX: R01.1 Cardiac murmur, unspecified (principal); K25.9 Gastric ulcer, unspecified as acute or chronic, without hemorrhage or perforation; M54.50 Low back pain, unspecified; G89.29 Other chronic pain

== ENCOUNTER 2024-12-02 11:19 | Emergency (ER) | payer MEDICARE, MEDICAID, SELFPAY ==
--- NOTE | ~2024-12-02 | XR_ITS ---
EXAMINATION: XR CHEST CLINICAL INFORMATION: rule out aspiration COMPARISON: 11/05/2024 TECHNIQUE: Frontal view of the chest was obtained. FINDINGS: Lungs are clear. Heart size is normal. There is a vascular stent in the proximal medial left upper extremity. XR/XR chest 1V IMPRESSION: No acute disease. Electronically signed by: Lee Dennis MD 12/02/2024 12:18 PM EDT
--- NOTE | ~2024-12-02 | CT_ITS ---
EXAMINATION: CT ABDOMEN PELVIS WITHOUT IV CONTRAST HISTORY: intractable n/v hx of GI bleed, ESRD no contrast COMPARISON: Previous CT of the abdomen and pelvis most recent November 13, 2024 TECHNIQUE: CT scan of the abdomen and pelvis was performed without contrast using standard departmental protocol. Coronal and sagittal reformatted images were generated and reviewed. This CT exam was performed with one or more of the following dose reduction techniques: automated exposure control, adjustment of the mA and/or kV according to patient size, use of iterative reconstruction technique. DLP: 385 mGy-cm FINDINGS: LOWER CHEST: Trace right pleural effusion. Subsegmental atelectasis in the right middle and left lower lobes. CARDIOVASCULATURE: Upper normal in size. Trace pericardial effusion. LIVER: Upper normal size, right lobe measuring 18 cm in length. No focal lesion. GALLBLADDER / BILE DUCTS: The gallbladder is unremarkable. There is no intra or extrahepatic biliary ductal dilatation. SPLEEN: The spleen is normal in size and has an unremarkable unenhanced appearance. PANCREAS: The pancreas has an unremarkable unenhanced appearance. ADRENAL GLANDS: Unremarkable. KIDNEYS/RETROPERITONEUM: Bilateral renal cortical thinning. Small nonobstructing stone in the upper pole of the left kidney. No calyceal dilatation. Mild fullness of the renal pelvises similar to prior exams. No ureteral dilatation. LYMPH NODES: No retroperitoneal lymphadenopathy is identified in the abdomen or pelvis. VASCULATURE: Mild atherosclerotic disease. No aneurysm. MESENTERY/PERITONEUM: Small amount of ascites in the abdomen and pelvis increased from prior exam. Edema of the small bowel mesentery also increased. STOMACH: Surgical changes from gastric bypass. There is apparent diffuse wall thickening of the stomach. This may be due to underdistention. SMALL BOWEL: Post surgical changes with surgical staple line in the left upper quadrant. Dilatation of small bowel in the left upper quadrant at the surgical staple line measuring up to 3 cm. No caliber change to suggest obstruction. COLON: Underdistended colon difficult to assess. There is question of mild wall thickening of the cecum, right colon and proximal transverse colon. Question mild colitis. APPENDIX: Normal. URINARY BLADDER/PELVIC ORGANS: The urinary bladder is unremarkable. Uterus may been removed. There is a stable 1 cm calcification in the right pelvis. This may represent a calcification in the right ovary. This is unchanged from multiple prior exams. BONES / SOFT TISSUES: Mild anterior subluxation of L4 with respect to L5. There is facet arthritis at L4-5. There are degenerative changes and facet arthritis at L5-S1. There is mild arthritis of the right sacroiliac joint. CT/CT abdomen pelvis wo IV con IMPRESSION: New small amount of ascites in the abdomen and pelvis. Interval increase in edema in the small bowel mesentery. Colon not optimally distended and difficult to evaluate. Question mild wall thickening/colitis of the proximal colon. Stable postsurgical changes to the stomach post gastric bypass. There is question of mild diffuse wall thickening of the stomach versus changes due to underdistention. Slightly enlarged liver. Bilateral renal cortical thinning. Small nonobstructing left renal stone. Electronically signed by: Raquel Ruth MD 12/02/2024 02:29 PM EDT
[2024-12-02 11:24] VITALS: BP 146/90; BP 182/94; PULSE 98; PULSE 99; RESP 20; TEMP 37; O2SAT 93; O2SAT 96; BMI 23.3
--- NOTE | 2024-12-02 11:33 | ED.ABDPAIN ---
HPI - Abdominal Pain General Chief Complaint: Abdominal Pain Stated Complaint: abd pain, w/ coffee ground emesis Time Seen by Provider: 12/02/24 11:29 Source: patient, EMS, RN notes reviewed and old records reviewed Mode of arrival: EMS Limitations: no limitations History of Present Illness ED Provider: Zoë Calderon PA-C HPI narrative: 54-year-old female with history of erosive gastritis, anemia, gastric bypass, end-stage renal disease on dialysis, hidradenitis suppurativa, superior mesenteric artery stenosis, malnutrition, anxiety and depression, chronic back pain, and hypertension presenting to the emergency department today for intractable nausea vomiting and epigastric pain. Patient was last seen by gastroenterology 3 weeks ago and has been on sucralfate 4 times a day along with Protonix would plan to be on a liquid diet only with protein shakes for which she has been compliant with however last night she felt so hungry she had milk with Cheerios and quite soon after she started to experience severe abdominal pain which commenced into nausea vomiting and dry heaving. She noted ground coffee emesis this morning. She reports that she knows that she has a lot of ulcers and she has been admitted for this before at [facility] as early as 2 months ago. The plan was to follow up with Gastroenterology within a week for repeat endoscopy. Patient is reporting 10/10 pain with heartburn denying any angina or shortness of breath and no fevers. She reports having little bit of brown loose stools this morning but otherwise no blood in her stool. She reports no backache and no symptoms. She has no headache and no dizziness. Last seen in our ED on 11/13-11/[address] showed concerns for possible SBO. Surgery admitted her. She was discharged on 11/19/24. She rec'd 1 unit of blood on day 3 of admission. Repeat labs showed appropriate rise in H/H. She had EGD with Dr. Berry. It showed diffuse mucosal inflammation and superficial ulcers (erosive gastritis). She was advised to follow up with bariatric outpatient. Patient denies EtOH and marijuana use. MD elicited complaint: abdominal pain Pertinent past history: gastritis and gastrointestinal bleeding Related Data Home Medications ?Medication ?Instructions ?Recorded ?Confirmed ferrous sulfate 325 mg (65 mg 325 mg PO DAILY 05/11/20 11/23/24 iron) tablet,delayed release cyanocobalamin (vitamin B-12) 1,000 mcg PO DAILY 10/17/20 11/23/24 1,000 mcg tablet acetaminophen 500 mg capsule 1,000 mg PO Q8H PRN Pain 08/10/23 11/23/24 (Mapap (acetaminophen)) fluticasone propionate 50 1 spray intranasal DAILY PRN 08/10/23 11/23/24 mcg/actuation nasal Allergy Symptoms spray,suspension [id number]-[id number] 45 mg-folic 1 cap PO DAILY 08/10/23 11/23/24 acid 800 mcg-vit K 120 mcg capsule (Bariatric Multivitamins) parenteral amino acid 15% no.5 15 0.5 ea IV MOWEFR@0900 08/10/23 11/23/24 % combination no.5 intravenous solution (Clinisol SF) zinc acetate 50 mg (zinc) capsule 100 mg PO DAILY 05/19/24 11/23/24 meclizine 12.5 mg tablet 12.5 mg PO TID PRN Nausea And 06/04/24 11/23/24 Vomiting clotrimazole-betamethasone 1 1 appl topical DAILY PRN Rash 09/20/24 11/23/24 %-0.05 % topical cream midodrine 5 mg tablet 5 mg PO TID 11/14/24 11/23/24 misoprostol 200 mcg tablet 200 mcg PO 5XD 11/14/24 11/23/24 omeprazole 40 mg capsule,delayed 40 mg PO BID@0630,1630 11/14/24 11/23/24 release pantoprazole 40 mg tablet,delayed 40 mg PO QAM 11/14/24 11/23/24 release Previous Rx's ?Medication ?Instructions ?Recorded thiamine HCl (vitamin B1) 100 mg 100 mg PO DAILY 90 days #90 tabs 09/27/23 tablet vitamin A 2,400 mcg capsule 2,400 mcg PO DAILY 90 days #90 caps 02/05/24 citalopram 20 mg tablet 20 mg PO DAILY 90 days #90 tabs 09/08/24 melatonin 10 mg capsule 20 mg (2 x 10 mg) PO BEDTIME #90 09/20/24 caps pyridoxine (vitamin B6) 50 mg 50 mg PO DAILY 90 days #90 tabs 10/21/24 tablet gabapentin 400 mg capsule 400 mg PO BID 90 days #180 caps 11/10/24 ondansetron 4 mg disintegrating 4 mg PO Q8H PRN nausea and 11/10/24 tablet vomiting #10 tabs pantoprazole 40 mg tablet,delayed 40 mg PO DAILY #90 tabs 11/19/24 release sucralfate 100 mg/mL oral 10 ml PO BID #600 mL 11/19/24 suspension docusate sodium 100 mg capsule 100 mg PO BID #60 caps 11/25/24 acetaminophen 300 mg-codeine 30 mg 1 tab PO Q8H PRN severe pain 12/02/24 tablet (scale score 7-10) #10 tabs Allergies Allergy/AdvReac Type Severity Reaction Status Date / Time ibuprofen Allergy Severe Unknown Verified 12/02/24 11:32 nifedipine Allergy Intermediate hives, leg Verified 12/02/24 11:32 edema Review of Systems Review of Systems Yes all other systems are reviewed and are negative FOR[facility]LY [facility] Past Medical History Attestation statement: The following information was validated with the patient. Source: old records reviewed and nursing notes reviewed 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 Lumbar back pain with radiculopathy affecting left lower extremity Physical exam (~02/14/21) Peritoneal dialysis catheter in place Polyarthralgia Dyslipidemia Family history of ovarian cancer Abnormal mammogram of right breast Angina pectoris syndrome Chest pain Constipation Nephrosclerosis Renal interstitial fibrosis Obesity (BMI 30-39.9) Back pain GERD (gastroesophageal reflux disease) History of headache HTN (hypertension) Surgical History History of sleeve gastrectomy S/P arteriovenous (AV) graft placement Fistula Hx of colonoscopy Hx of hysterectomy Hx of tubal ligation History of endometrial ablation Family History Family History Father Asthma Mother Asthma Hypertension Ovarian cancer Maternal Grandfather Myocardial infarction Paternal Grandmother Stroke Social History Social History Household Members: Children Household Members Other:: 30 year old special needs son Housing: Apartment Are you a primary child care specialist to a significant other at home: No Do you presently have visiting nurse or other home services: No Alcohol intake: never Comment: low fall risk Patient Tobacco Use Status: Former Tobacco user Tobacco use type: Cigarette Cigarette Packs Per Day: 1 Cigarettes Per Day: 1 Years Smoked: 10+ e-Cigarette/Vaping Use: Never Used Second Hand Smoke Exposure: No Substance Use Type: Caffiene Advance Directives Date on File: 04/27/20 service: No Current occupational status: employed Cognitive needs: No Hearing needs: No Vision needs: Yes (reading glasses) Physical Exam ED Exam Exam: General: Appears in mild non respiratory or cardiac distress, appears undernourished body habitus is normal, appears stated age. No septic or ill-appearing. Vitals reviewed normal, PMH/Social and Surgical hx reviewed including allergies and current medications. - reviewed for prior visits here and right as it pertains to similar chief complaint. Head: Normocephalic, no obvious trauma or skin lesions noted. Eyes: EOMI no scleral icterus ENMT: Dry oral mucosa no petechiae noted Neck: trachea midline uvula is midline no trismus Cardiovascular: peripheral perfusion normal, Regular heart rate, tachycardic Respiratory: no respiratory distress lungs clear Abdomen: nondistended, tender in the epigastric and periumbilical this with some guarding, hyperactive bowel sounds Extremities: warm and moving without difficulty unless otherwise detailed in physical exam if applicable. Psych: Cooperative, dry heaving groaning leaned to her left side Neuro: Alert and oriented. Vital Signs: Vital Signs - 24 hr 12/02/24 11:24 12/02/24 12:00 12/02/24 12:56 Temperature 98.6 F Pulse Rate 99 96 95 Respiratory Rate 20 15 13 Blood Pressure 182/94 H 176/80 H 157/87 H Pulse Oximetry 93 97 100 Oxygen Delivery Method Room Air Room Air Room Air 12/02/24 14:00 Temperature Pulse Rate 94 Respiratory Rate 18 Blood Pressure 158/92 H Pulse Oximetry 95 Oxygen Delivery Method Room Air BMI result Body Mass Index 23.3 Medical Decision Making Medical Decision Making MDM Narrative: 54-year-old female with recent diagnosis of erosive gastritis presenting to the emergency department today for evaluation of intractable nausea and vomiting and worsening abdominal pain status post eating [employer] last night while only supposed to be on a liquid pureed diet only. She is endorsing 10/10 abdominal pain. She does have end-stage renal disease on dialysis. We will obtain abdominal labs give IV Zofran then 1 time dose of morphine as well as fluids Protonix and obtain a CT non-con to rule out potential GI bleed given coffee-ground emesis not likely to be lower GI bleed therefore GI bleed protocol not initiated. EKG shwoed sinus tachy at 116 bpm, no malignant arrhythmia or obvious STEMI at this time. Will also given lidocaine viscous to help with acute reflex other mckenzie she will be kept NPO. Patient has baseline anemia noted and her labs but no leukocytosis she does not meet transfusion criteria with an H and H of 11.4 and 35.6. Creatinine level appears that the her baseline with end-stage renal disease at 3.32 BUN slightly elevated at 22. No electrolyte imbalance otherwise. Lipase is slightly elevated but not 3 times the upper limit of normal likely due to acute nausea or vomiting, no transaminitis. She is negative to COVID influenza. Chest x-ray is normal and or aspiration pneumonia noted. CT of the abdomen and pelvis is pending. PT/INR normal. 1435: Patient reports clinically feeling better, waiting for CT results, my prelim shows no obvious SBO, some bowel inflammation ileus like in the LUQ, but otherwise no other acute findings from my impression. CT: IMPRESSION: New small amount of ascites in the abdomen and pelvis. Interval increase in edema in the small bowel mesentery. Colon not optimally distended and difficult to evaluate. Question mild wall thickening/colitis of the proximal colon. Stable postsurgical changes to the stomach post gastric bypass. There is question of mild diffuse wall thickening of the stomach versus changes due to underdistention. Slightly enlarged liver. Bilateral renal cortical thinning. Small nonobstructing left renal stone. 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 We will consult with race car mechanic on-call Dr. Archer for further recommendations otherwise to see if in agreement with plan. Dr. Archer agrees with this plan patient was also able to touch base with her bariatric office she has an appointment on the days from now. She is requesting pain medicine to use as needed at home she understands this can aggravate her stomach but would like it as a last resort to avoid coming back to the ED she already has Zofran at home she is able tolerate p.o. fluids in his voiding regularly he did not feel admission was indicated at this point Differential Diagnosis Differential Diagnoses: The differential diagnosis associated with the presentation includes exacerbation of erosive gastritis iron davila tear pancreatitis PUD Admission/Observation Consideration of admission/observation: Escalation of care including admission/observation considered Lab Data MDM Lab Attestation statement: I reviewed the patient's lab results. 12/02/24 11:58 12/02/24 11:58 Labs: Lab Results 12/02/24 12/02/24 Range/Units 11:58 12:22 WBC 8.4 (4.8-10.8) X10*3/uL RBC 3.82 L D (4.20-5.50) X10*6/uL Hgb 11.4 L D (12.0-16.0) g/dl Hct 35.6 L D (37.0-47.0) % MCV 93.2 (80.0-98.0) fL MCH 29.8 (27.0-33.0) pg MCHC 32.0 (31.0-35.0) g/dl RDW 16.3 H (11.0-16.0) % Plt Count 317 D (160-400) X10*3/uL MPV 9.4 (9.4-12.3) fL Immature Gran % (Auto) 0.4 (0.0-0.4) % Neut % (Auto) 84.6 H (45-73) % Lymph % (Auto) 9.7 L (20-40) % [place] % (Auto) 4.3 (2-11) % Eos % (Auto) 0.5 (0-4) % Baso % (Auto) 0.5 (0-2) % Lymph # (Auto) 0.8 L (1.2-4.9) X10*3/uL [place] # (Auto) 0.4 (0.1-1.2) X10*3/uL Eos # (Auto) 0.0 (0.0-0.4) X10*3/uL Baso # (Auto) 0.0 (0.0-0.2) X10*3/uL Abs Immat Gran (auto) 0.03 (0.00-0.03) X10*3/uL Absolute Neuts (auto) 7.2 (2.0-8.3) x10*3/uL Absolute Nucleated RBC 0.000 (0.0-0.012) X10*3/uL Nucleated RBC % (auto) 0.0 (0.0-0.2) /100WBC ESR 11 (0-20) MM/HR PT 11.5 (10.9-12.4) SEC INR 1.0 (0.9-1.1) Sodium 139 (135-145) mmol/L Potassium 3.7 (3.3-5.1) mmol/L Chloride 100 (96-108) mmol/L Carbon Dioxide 29 (22-29) mmol/L Anion Gap 14 (12-20) BUN 22 H (9-16) mg/dL Creatinine 3.32 H (0.5-1.4) mg/dL Estim Creat Clear Calc 17.6 Estimated GFR 15 Random Glucose 114 (60-115) mg/dL Calcium 9.9 D (8.4-10.2) mg/dL Magnesium 2.2 (1.6-2.6) mg/dL Total Bilirubin 0.3 (0.0-1.0) mg/dL AST 31 (5-31) U/L ALT 13 (0-31) U/L Alkaline Phosphatase 149 H (39-117) U/L Total Protein 7.1 (6.5-8.0) g/dL Albumin 4.1 (3.5-5.0) g/dL Lipase 116 H (8-78) U/L Ethyl Alcohol < 10 mg/dL Blood Type O Positive Antibody Screen NEGATIVE Independent Interpretation I performed an independent interpretation of an: EKG and Plain X-Ray Interpretation: EKG: Sinus tachy 116 bpm, no malignant arrhythmia or ischemia noted. CXR: no hiatal hernia no aspiration pna. Radiology Impression Discussion of test interpretation with radiology: I have reviewed the radiologist's reading. Prescription Management I considered prescription management with: Pain Medication Chronic Conditions Patient?s care impacted by: Other Social Determinants Patient?s care significantly limited by Social Determinants of Health including: Other Social Determinant of Health Medications Administered Discontinued Medications Generic Name Dose Route Start Last Admin Trade Name Veena PRN Reason Stop Dose Admin Sodium Chloride 1,000 mls @ 999 mls/hr 12/02/24 11:38 12/02/24 13:32 Ns IV 12/02/24 12:38 Infused .Q1H1M ONE Infusion Acetaminophen 1,000 mg in 100 mls @ 400 mls/hr 12/02/24 12:50 12/02/24 13:32 Ofirmev IV 12/02/24 13:04 Infused ONCE ONE Infusion Lidocaine HCl 15 ml 12/02/24 12:50 12/02/24 12:55 Lidocaine Hcl Viscous 2 % 15 Ml Solution MUCOUS MEM 12/02/24 12:51 15 ml ONCE ONE Administration Morphine Sulfate 2 mg 12/02/24 11:41 12/02/24 12:26 Morphine Sulfate 4 Mg/Ml Cartridge IVPUSH 12/02/24 11:42 2 mg ONCE ONE Administration Protocol Ondansetron HCl 4 mg 12/02/24 11:38 12/02/24 12:26 Ondansetron Hcl 4 Mg/2 Ml Vial IVPUSH 12/02/24 11:39 4 mg ONCE ONE Administration Pantoprazole Sodium 40 mg 12/02/24 11:38 12/02/24 12:26 Pantoprazole Sodium 40 Mg/10 Ml Vial IVPUSH 12/02/24 11:39 40 mg ONCE ONE Administration Critical Care Time Critical Care Time Critical Care Time: Yes Total Critical Care Time: 40 Attestation: This patient required critical care. Due to the fact that the patient required a significant amount of one on one physician ? patient contact time, ordering and review of studies, arranging urgent treatment with development of a management plan, evaluation of patient?s response to treatment with frequent reassessments, and discussions with other providers this patient required critical care time in excess of 30 minutes. Critical care time was indicated due to the inherent instability and/or potential for instability in this patient. The critical care time that is allocated to this patient is above and beyond any time spent on any other billable procedures performed on this patient. Discharge Plan Discharge Clinical Impression: Colitis, Nausea & vomiting Acute gastritis Qualifiers: Gastritis type: unspecified gastritis Gastritis bleeding: presence of bleeding unspecified Qualified Code(s): K29.00 - Acute gastritis without bleeding Patient Disposition: Home, Self-Care Instructions: Gastritis (DC), Colitis (ED) Additional Instructions: You were seen in the emergency department today for intractable nausea and vomiting this is now better controlled. You had imaging and labs done today which have been reassuring. There is no acute infectious etiology going on but you do have some inflammation from your episode of vomiting. It is recommended that you stay on it. Liquid diet only. For severe pain you have given a prescription for this please only use it for severe pain as it can aggravate your stomach do not taken on empty stomach either. Use your Zofran as needed for nausea and vomiting. Keep your follow up with your bariatric doctor. For any severe worsening pain or inability to tolerate p.o. fluids please return to the emergency department hope you continue to feel well! Prescriptions: New acetaminophen-codeine 300-30 mg tablet 1 tab PO Q8H PRN (Reason: severe pain (scale score 7-10)) Qty: 10 0RF No Action thiamine HCl (vitamin B1) 100 mg tablet 100 mg PO DAILY 90 Days Qty: 90 0RF vitamin A 2,400 mcg capsule 2,400 mcg PO DAILY 90 Days Qty: 90 1RF citalopram 20 mg tablet 20 mg PO DAILY 90 Days Qty: 90 1RF melatonin 10 mg capsule 20 mg PO BEDTIME Qty: 90 0RF pyridoxine (vitamin B6) 50 mg tablet 50 mg PO DAILY 90 Days Qty: 90 1RF gabapentin 400 mg capsule 400 mg PO BID 90 Days Qty: 180 1RF ondansetron 4 mg tablet,disintegrating 4 mg PO Q8H PRN (Reason: nausea and vomiting) Qty: 10 0RF sucralfate 100 mg/mL suspension 10 ml PO BID Qty: 600 2RF pantoprazole 40 mg tablet,delayed release (DR/EC) 40 mg PO DAILY Qty: 90 0RF docusate sodium 100 mg capsule 100 mg PO BID Qty: 60 3RF cyanocobalamin (vitamin B-12) 1,000 mcg Tablet 1,000 mcg PO DAILY clotrimazole-betamethasone 1-0.05 % cream 1 appl topical DAILY PRN (Reason: Rash) acetaminophen [Mapap (acetaminophen)] 500 mg capsule 1,000 mg PO Q8H PRN (Reason: Pain) Clinisol SF 15 % 15 % parenteral solution 0.5 ea IV MOWEFR@0900 Rx Instructions: DIALYSIS MEDICATION Bariatric Multivitamins 45 mg iron- 800 mcg-120 mcg Capsule 1 cap PO DAILY fluticasone propionate 50 mcg/actuation spray,suspension 1 spray intranasal DAILY PRN (Reason: Allergy Symptoms) Rx Instructions: administer into each nostril zinc acetate 50 mg (zinc) Capsule 100 mg PO DAILY meclizine 12.5 mg Tablet 12.5 mg PO TID PRN (Reason: Nausea And Vomiting) pantoprazole 40 mg tablet,delayed release (DR/EC) 40 mg PO QAM misoprostol 200 mcg tablet 200 mcg PO 5XD omeprazole 40 mg capsule,delayed release(DR/EC) 40 mg PO BID@0630,1630 midodrine 5 mg tablet 5 mg PO TID ferrous sulfate 325 mg (65 mg iron) tablet,delayed release (DR/EC) 325 mg PO DAILY Referrals: Jr Berry MD [Physician, Bariatric Surgery] Referral Note: followup in 5 days Print Language: Italian
--- NOTE | 2024-12-02 11:38 | ECG_ITS ---
Test Reason : N/V Blood Pressure : */* mmHG Vent. Rate : 116 BPM Atrial Rate : 116 BPM P-R Int : 118 ms QRS Dur : 80 ms QT Int : 338 ms P-R-T Axes : 39 34 51 degrees QTcB Int : 469 ms Sinus tachycardia Nonspecific ST abnormality Abnormal ECG When compared with ECG of 13-Nov-2024 23:17, No significant change was found Referred By: Zoë Calderon Electronically Signed By: CHARLY ODELL MD
[2024-12-02 12:00] VITALS: BP 176/80; PULSE 96; RESP 15; O2SAT 97
[2024-12-02 12:14] LABS: MANUAL DIFF FLAG NO
[2024-12-02 12:17] LABS: Hematocrit 35.6 % (37.0-47.0); Hemoglobin 11.4 g/dl (12.0-16.0); Imm Gran Abs Auto 0.03 X10*3/uL (0.00-0.03); Imm Gran Pct Auto 0.4 % (0.0-0.4); Lymphocytes Absolute Auto 0.8 X10*3/uL (1.2-4.9); Mean Corpuscular HGB Conc 32.0 g/dl (31.0-35.0); Mean Corpuscular Hemoglobin 29.8 pg (27.0-33.0); Mean Corpuscular Volume 93.2 fL (80.0-98.0); NRBC Abs Auto 0.000 X10*3/uL (0.0-0.012); NRBC Pct Auto 0.0 /100WBC (0.0-0.2); Platelet Count 317 X10*3/uL (160-400); Red Blood Count 3.82 X10*6/uL (4.20-5.50); White Blood Count 8.4 X10*3/uL (4.8-10.8)
[2024-12-02 12:28] LABS: INTERNATIONAL NORM RATIO 1.0 (0.9-1.1); Prothrombin Time 11.5 SEC (10.9-12.4)
[2024-12-02 12:33] LABS: Alanine Aminotransferase 13 U/L (0-31); Albumin Level 4.1 g/dL (3.5-5.0); Alkaline Phosphatase 149 U/L (39-117); Anion Gap 14 (12-20); Aspartate Amino Transferase 31 U/L (5-31); Blood Urea Nitrogen 22 mg/dL (9-16); Calcium 9.9 mg/dL (8.4-10.2); Carbon Dioxide 29 mmol/L (22-29); Chloride 100 mmol/L (96-108); Creatinine Clr Calc Pharmacy 17.6; Estimated Glomerular Filt Rate 15; Lipase 116 U/L (8-78); Magnesium 2.2 mg/dL (1.6-2.6); Potassium 3.7 mmol/L (3.3-5.1); Sodium 139 mmol/L (135-145); Total Protein 7.1 g/dL (6.5-8.0)
[2024-12-02] MEDS: Lidocaine HCl Viscous 2 % 15 ML SOLUTION MUCOUS MEM (12:55)
[2024-12-02 12:56] VITALS: BP 157/87; PULSE 95; RESP 13; O2SAT 100
[2024-12-02 14:00] VITALS: BP 158/92; PULSE 94; RESP 18; O2SAT 95
--- OUTSIDE RECORDS SUMMARY | 2024-12-02 16:32 | XMS_ITS | Clinical Summary ---
Author Organization [address] [facility] Address [address] [place] [address] Phone Care Team Providers Care Title Curative Specialist Name Role Phone Sam Lynch MD Primary [...] 32.9 in adult 11/26/2023 Acute kidney failure ([facility] V24) 04/26/2021 Benign essential hypertension 04/26/2021 Dependence on renal dialysis ([facility] V24) 04/26 Disorder of kidney and ureter, unspecified 04/26 ESRD on hemodialysis ([facility] V24, [facility] V28) 04/26/2021 Hypertensive heart and chron ic kidney disease with heart failure and stage 1 through stage 4 chronic kidney disease, or unspecified chronic kidney disease ([facility] V24, [facility] V28) 04/26/2021 Vitamin D deficiency 04/26/2021 Resolved Problems Problem Noted Date Diagnosed Date Resolved Date Upper GI bleed 06/30/2024 07/03/2024 Encounters Date Type Department Care Team Description 10/07/2024 Telephone Bariatric Surgery - [place] [address] [id number] Gerson Rosen MD 09/21/2024 Telephone Bariatric Surgery - [place] [address] [phone] Grace Abarca PA 09/01/2024 3:15 PM EDT Office Visit Bariatric Surgery - [address] [phone] Grace Abarca PA Hx of obesity (Primary Dx); Bariatric surgery status; Marginal ulcer from Last 3 Months Surgical History Surgery Date Site/Laterality Comments OTHER SURGICAL HISTORY PROCEDURE: DIALYSIS ACCESS SYSTEM LAPAROSCOPIC GASTRIC BANDING PROCEDURE: LAP ADJUSTABLE GASTRIC BAND HYSTERECTOMY PROCEDURE: HISTORICAL HYSTERECTOMY OTHER SURGICAL HISTORY PROCEDURE: COLONOSCOPY LESION REMOVAL OTHER SURGICAL HISTORY 06/13/2021 Left PROCEDURE: IN CRTJ ARVEN FSTL XCP DIR ARVEN ANAST [...] Procedure Name Priority Date/Time Associated Diagnosis Comments COMPREHENSIVE METABOLIC PANEL STAT 08/25/2024 9:00 AM EDT from Last 3 Months or Most Recently Relevant to Health Maintenance Insurance MEDICAID - [place] MEDICARE Advance Directives Documents on File Type Date Recorded Patient Closet Builder Expl anation Health Care Decision (hx) 07/24/2023 [...] currently active code status orders. Care Teams Title Curative Specialist Relationship Specialty Start Date End Date Sam Lynch MD [address] [place] [address] Dr [address] [place], [place] PCP - General 10/25/22
--- OUTSIDE RECORDS SUMMARY | 2024-12-02 16:33 | XMS_ITS | Clinical Summary ---
Author Organization [facility] Address [address] [facility] [address] [place] [id number] Phone Care Team Providers Care Internal Revenue Service Agent Name Role Phone Rozina Nicole MD Primary [...] Devices Not on file Insurance [place] [place] [address] [place] [address] [place] [address] [place] [address] [place] [address] [place] [address] [place] [address] [place] [place] [address] ACO Care Teams Internal Revenue Service Agent Relationship Specialty Start Date End Date Rozina Nicole MD [address] [place] [address] PCP - General 06/26/18 Additional Source Comments The information contained in this document represents components of the legal health record. It is not the complete legal health record.[facility]
--- OUTSIDE RECORDS SUMMARY | 2024-12-02 16:33 | XMS_ITS | Clinical Summary ---
Author Organization Formerly [facility] Address [address] [place] [address] Care Team Providers Care Supervisor Decorating Name Role Phone Rozina Nicole MD Primary Care Provider Jon Wang MD Unavailable [phone] Allergies No known active allergies Medications famotidine [...] Description 10/13/2024 8:31 PM EDT Anesthesia Event [facility] Perioperative Surgical Services [address] [place] [address] Enmanuel Fisher MD 10/13/2024 8:00 PM EDT - 10/13/2024 9:51 PM EDT Surgery [facility] Perioperative Surgical Services [address] [place] [address] David Harrell MD LAPAROSCOPY DIAGNOSTIC, LYSIS OF ADHESIONS 10/11/2024 12:06 PM EDT Anesthesia Event [facility] Gastroenterology Division [address] [place] [address], [place] [address] Irving Oliver DO Boucher, Sarah J, ANIMAL DOCTOR 10/11/2024 11:40 AM EDT - 10/11/2024 12:19 PM EDT Surgery [facility] Gastroenterology Division [address] [place] [address], [place] [address] Kristopher Kramer MD ENDOSCOPY UPPER 10/11/2024 1:59 AM EDT - 10/19/2024 4:00 PM EDT Hospital Encounter BLISS [address] [place] [address] Aniket Chand III, Roberta Gutiérrez MD Elajami, [...] Exposure: Past Tobacco Cessation:Counseling Given: Not Answered [facility] Utilities Answer Date Recorded In the past 12 months has Heck[employer], oil, or water [employer] threatened to shut off services in your [...] any time in the past 12 m [facility], were you homeless or living in a [place] health [place] facility (including now)? No 10/11/2024 Comments Unknown Sex [...] (Ages 21-65) 07/26/1992 Mammogram 2011 Colonoscopy 07/26/2016 RSV Vaccine 50 years and old er and Patients (1 - Risk 50-74 years 1-dose series) 07/26/2021 Zoster (Shingles) Vaccine (1 of 2) 07/26/2021 Influenza Vaccine 09/10/2024 COVID-19 Vaccine (1 - season) 2024 Procedures Procedure Name Priority [...] resultswithin the time period is included. Pathologist [facility] White Blood Cell Count 4.4 4.0 - [...] Amaya MD LAB BLOOD ORDERABLES Final Result [address] [address], [address] [address] * (ABNORMAL) Basic Metabolic Panel (10/18/2024 7:19 [...] Amaya MD LAB BLOOD ORDERABLES Final Result [address] [address], [address] [address] * Transfuse RBC's: (10/15/2024 9:14 PM EDT) us Arina Amaya MD BLOOD TRANSFUSION ORDERABL ES Final Result * Type and Screen (10/15/2024 2:19 PM EDT) Only the most recent of2 resultswithin the time period is included. ABO/Rh O POSITIVE 10/15/2024 4:38 PM EDT [facility] Antibody Screen NEGATIVE 10/15/2024 4:38 PM EDT [facility] Specimen Expiration 10/18/2024 10/15/2024 4:38 PM EDT [facility] Unit Number [id number] 10/15/2024 6:22 PM EDT [facility] Blood Component Type LR RBC CONTAINER 2 10/15/2024 6:22 PM EDT [facility] Unit Division 00 10/15/2024 6:22 PM EDT [facility] Unit Status ISSUED,FINAL 10/16/2024 12:08 AM EDT [facility] Transfusion Status OK TO TRANSFUSE 10/15/2024 6:22 PM EDT [facility] Crossmatch Result Electronically Compatible 10/15/2024 6:22 PM EDT [facility] Blood Blood specimen / Unknown 10/15/2024 2:19 PM EDT 10/15/2024 3:38 PM EDT Comment:Blood Arina Amaya MD BLOOD BANK TEST ORDERABLES Final Result Performing Organization Address City/[facility] Co de Phone Number HOSPITAL LAB See Below [address] [address] * Prepare RBC's:Prepare in: Units; Number of [...] AM EDT 10/15/2024 8:39 AM EDT us tC Foss MD LAB BLOOD ORDERABLES Final Re sult [address] [address], [address] [address] * Phosphorus (10/15/2024 7:57 AM EDT) Only the most recent of2 resultswithin the time period is included. Phosphorus 3.8 2.7 - 4.5 mg/dL 10/15/2024 11:43 AM EDT [facility] 10/15/2024 7:57 AM EDT 10/15/2024 8:[address] Foss MD LAB BLOOD ORDERABLES Final Re sult Performing Organization Address City/[facility]/[place] [address], [place] [address] * Magnesium (10/15/2024 7:57 AM EDT) Only the most recent of3 resultswithin the time period is included. Magnesium 1.8 1.6 - 2.7 mg/dL 10/15/2024 10:04 AM EDT [facility] Blood Blood specimen / Unknown 10/15/2024 7:57 AM EDT 10/15/2024 8:[address] Foss MD LAB BLOOD ORDERABLES Final Re sult Performing Organization Address City/[facility]/[place] [address], [address] [address] * (ABNORMAL) TRANSFERRIN (10/14/2024 10:10 AM EDT) Transferrin 125(L) 200 - 360 mg/dL 10/14/2024 12:13 PM EDT [facility] Blood Blood specimen / Unknown 10/14/2024 10:10 AM EDT 10/14/2024 11:23 AM EDT David Harrell MD LAB BLOOD ORDERABLES Final R esult Performing Organization Address City/[facility]/ZIP Co de Phone Number [address] [address], [address] [address] * PREALBUMIN (10/14/2024 10:10 AM EDT) Prealbumin 24 20 - 40 mg/dL 10/14/2024 12:13 PM EDT [facility] Blood Blood specimen / Unknown 10/14/2024 10:10 AM EDT 10/14/2024 11:23 AM EDT us David Harrell MD LAB BLOOD ORDERABLES Final R esult Performing Organization Address [facility] [place] [address], [address] [address] * (ABNORMAL) ALBUMIN (10/14/2024 10:10 AM EDT) Albumin 3.1(L) 3.5 - 5.0 g/dL 10/14/2024 12:13 PM EDT [facility] Blood Blood specimen / Unknown 10/14/2024 10:10 AM EDT 10/14/2024 11:23 AM EDT us David Harrell MD LAB BLOOD ORDERABLES Final R esult Performing Organization Address [facility] [place] [address], [address] [address] * Nicotine, Cotinine, Serum (10/14/2024 5:50 AM EDT) Nicotine <2 ng/mL 10/19/2024 9:54 AM EDT [facility] Comment: (NOTE) Reference Ranges(ng/mL): Non-Smoker Active Tobacco User < or = to 4 2-10 Cotinine <2 ng/mL 10/19/2024 9:54 AM EDT [facility] Comment: (NOTE) Reference Ranges(ng/mL): Non-Smoker Active Tobacco User < or = to 8 16-145 This test was developed and its analytical performance characteristics have been determined by [facility] [place], [place]. It has not been cleared or approved by the U.S. Food and Drug Administration. This assay has been validated pursuant to the CLIA regulations and is used for clinical purposes. Blood Blood specimen / Unknown 10/14/2024 5:50 AM EDT 10/14/2024 6:22 AM EDT David Harrell MD LAB BLOOD ORDERABLES Final R esult 1-[facility], [employer] [address] [facility] [address] [address] [place], [place] , [facility], [place] [facility] [address] [facility] [address] [address] [place], [place] * ANES INTUBATION (10/13/2024 8:59 PM EDT) Jon Bey CRNA - 10/13/2024 8:59 PM EDT Jon House CRNA 10/13/2024 8:59 PM Anesthesia Procedure Note - intubation Patient Name: Meliza Perry : 1970 Patient location: [place] Procedure diagnosis: Anesthesia Performed by: Resident/ANIMAL DOCTOR Preanesthetic Checklist . Patient's pre-procedure mental status: [...] tooth loose, no change with DL Enmanuel Fisehr MD [place] ANESTHESIA Final Result * CT Abdomen+pelvis w [...] relayed to via TT at 4:40pm on 9/3/25 and results were acknowledged. Ct Foss MD IMG CT ORDERABLES Final Resul t * Hepatitis B Virus (HBV) Surface Antigen Screen, Reflex Confirmation (10/11/2024 3:01 PM EDT) Hepatitis B Surface Ag Screen Nonreactive Nonreactive 10/12/2024 11:17 AM EDT [facility] Blood Blood specimen / Unknown 10/11/2024 3:01 PM EDT 10/11/2024 4:41 PM EDT Efrain Campos MD LAB BLOOD ORDERABLES Final Result [facility] [address] [place] [address], [place] * Hepatitis B Virus (HBV) Core Antibody Total (10/11/2024 3:01 PM EDT) Hepatitis B Core Antibody Total Nonreactive Nonreactive 10/12/2024 11:17 AM EDT [facility] Blood Blood specimen / Unknown 10/11/2024 3:01 PM EDT 10/11/2024 4:41 PM EDT Efrain Campos MD LAB BLOOD ORDERABLES Final Result Performing Organization Address City/[facility]/ZIP Co de Phone Number [facility] [address] [place] [address], [place] * Hepatitis B Virus (HBV) Surface Antibody (10/11/2024 3:01 PM EDT) Hepatitis B Surface Antibody Reactive (Immune) Reactive (Immune) 10/12/2024 11:17 AM EDT [facility] Blood Blood specimen / Unknown 10/11/2024 3:01 PM EDT 10/11/2024 4:41 PM EDT Efrain Campos MD LAB BLOOD ORDERABLES Final Result [facility] [address] [place] [address], [place] * POCT Glucose, Fingerstick (10/11/2024 1:21 PM EDT) Only the most recent of2 resultswithin the time period is included. POC Glucose 86 65 - 99 mg/dL 10/11/2024 1:25 PM EDT Blood specimen / Unknown 10/11/2024 1:21 PM EDT 10/11/2024 1:25 PM EDT Aniket Chand III, DO POINT OF CARE [...] No acute cardiopulmonary findings. Roberta Oh MD IMG DIAGNOSTIC IMAGING ORDERABLE S Final Result * Lactic Acid, Plasma (10/11/2024 2:25 AM EDT) Lactic Acid 1.3 0.5 - 1.9 mmol/L 10/11/2024 3:00 AM EDT [facility] Blood Blood specimen / Unknown 10/11/2024 2:25 AM EDT 10/11/2024 2:43 AM EDT us Aniket Chand III, DO LAB BLOOD ORDERABLES Jennifer l Result Performing Organization Address [facility]/[place] [address], [place] [address] * ABO Confirmation (10/11/2024 2:24 AM EDT) ABO/Rh O POSITIVE 10/11/2024 3:26 AM EDT [facility] Blood Blood specimen / Unknown 10/11/2024 2:24 AM EDT 10/11/2024 2:51 AM EDT us Aniket Chand III, DO BLOOD BANK TEST ORDERABLE S Final Result Performing Organization Address City/[facility] [place] [address], [place] [address] * (ABNORMAL) Hepatic function panel (10/11/2024 2:24 AM EDT) Alkaline Phosphatase 91 32 - 122 U/L 10/11/2024 3:03 AM EDT [facility] Aspartate Aminotrans (AST) 10 10 - 50 U/L 10/11/2024 3:03 AM EDT [facility] Alanine Aminotrans (ALT) 5(L) 10 - 50 U/L 10/11/2024 3:13 AM EDT [facility] Bilirubin, Total 0.3 0.2 - 1.0 mg/dL 10/11/2024 3:03 AM EDT [facility] Protein, Total 4.6(L) 6.3 - 8.3 g/dL 10/11/2024 3:03 AM EDT [facility] Albumin 2.7(L) 3.5 - 5.0 g/dL 10/11/2024 3:03 AM EDT [facility] Bilirubin, Direct 0.1 0 - 0.2 mg/dL 10/11/2024 3:03 AM EDT [facility] Globulin 1.9 1.5 - 3.9 g/dL 10/11/2024 3:03 AM EDT [facility] Albumin/Globulin Ratio 1.4 1.0 - 3.0 Ratio 10/11/2024 3:03 AM EDT [facility] Blood Blood specimen / Unknown 10/11/2024 2:24 AM EDT 10/11/2024 2:44 AM EDT us Aniket Chand III, DO LAB BLOOD ORDERABLES Jennifre l Result [facility] [address] [place] [address], [address] [address] from Last 3 Months Insurance [facility] MEDICARE PART A & B [facility] MEDICARE PART A & B [facility] MEDICARE PART A & [place] [id number] Advance Directives * Full Code (Latest Code Status on File) Date Activated Date Inactivated Comments 10/11/2024 5:25 AM Care Teams Supervisor Decorating Relationship Specialty Start Date End Date Rozina Nicole MD [address] [place] [address] PCP - General Family Medicine 10/11/24 Jon Wang MD [address] [facility] [address] [place] [address] Physician Internal Medicine 10/11/24
== END 2024-12-02 15:56 | disposition home or self-care (01) ==
PROVIDERS: Physician Assistant Medical; Emergency Provider Emergency Medicine; PCP Internal Medicine
DX: K52.9 Noninfective gastroenteritis and colitis, unspecified (principal); K29.00 Acute gastritis without bleeding; R10.13 Epigastric pain; R00.0 Tachycardia, unspecified; R11.2 Nausea with vomiting, unspecified; Z51.81 Encounter for therapeutic drug level monitoring; Z79.899 Other long term (current) drug therapy; Z98.84 Bariatric surgery status
CPT/HCPCS: 36415; 71045; 74176; 80053; 80307; 83690; 83735; 85025; 85610; 85652; 86141; 86850; 86900; 86901; 93005; 96361; 96374; 96375; 99284; 99285; J0131; J2270; J2405; J2470

== ENCOUNTER → 2024-12-02 11:38 | Outpatient (BNV) | payer MEDICARE, MEDICAID, SELFPAY | PROVIDERS: Emergency Provider Emergency Medicine; PCP Internal Medicine; Visit Provider Internal Medicine Cardiovascular Disease | DX: R00.0 Tachycardia, unspecified (principal) | CPT/HCPCS: 93010 ==

== ENCOUNTER → 2024-12-02 11:38 | Outpatient (BNV) | payer MEDICARE, MEDICAID, SELFPAY | PROVIDERS: Emergency Provider Emergency Medicine; Visit Provider Radiology Diagnostic Radiology | DX: R18.8 Other ascites (principal); N20.0 Calculus of kidney | CPT/HCPCS: 74176 ==

== ENCOUNTER 2024-12-07 11:50 | Day surgery (SDC) | payer MEDICARE, MEDICAID, SELFPAY ==
--- NOTE | 2024-11-17 13:51 | HO.ANESPROP2 ---
Documented by User: Shira Hanson NP 11/17/24 13:57 HPI - Anesthesia Eval Consult details Narrative: 54 yr old female for upper endoscopy s/p upper endoscopy 09/23/24 with GA ETT 7 ESRD: on diaylsis M, W, F PMFSH Active Problems Active Problems: All Active Problems Small bowel obstruction (Acute) Nausea & vomiting (Acute) Small bowel obstruction (Acute) Anastomotic ulcer S/P gastric bypass (Acute) Acute blood loss anemia (ABLA) (Acute) Gastric ulcer (Acute) Acute hyperkalemia (Acute) Acute GI bleeding (Acute) ESRD on dialysis (Acute) Radiculopathy, lumbar region (Acute) Hidradenitis suppurativa of multiple sites (Acute) Superior mesenteric artery stenosis (Acute) Underweight (Acute) Suprapubic pain (Acute) Syncope (Acute) Schatzki's ring (Acute) Gastritis (Acute) Esophagitis (Acute) Idiopathic hypotension (Acute) Moderate major depression (Acute) Systolic murmur (Acute) Malnutrition (Acute) Pre-op examination (Acute) Non-cardiac chest pain (Acute) Polyp of right nasal cavity (Acute) Numbness (Acute) Palpitations (Acute) Urinary and fecal incontinence (Acute) Anxiety and depression (Acute) Chronic low back pain (Acute) Fatigue (Acute) Nasal polyp, benign (Acute) Anxiety and depression (Acute) LLQ abdominal pain (Acute) Tubular adenoma of colon (Acute) Anxiety (Acute) Spinal stenosis (Acute) 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 (Acute) Lumbar back pain with radiculopathy affecting left lower extremity (Acute) GERD (gastroesophageal reflux disease) (Acute) Polyarthralgia (Acute) Dyslipidemia (Acute) Family history of ovarian cancer (Acute) Abnormal mammogram of right breast (Acute) Chest pain (Acute) Obesity (BMI 30-39.9) (Acute) HTN (hypertension) (Acute) Past Medical History 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 Lumbar back pain with radiculopathy affecting left lower extremity Physical exam (~01/05/22) Peritoneal dialysis catheter in place Polyarthralgia Dyslipidemia Family history of ovarian cancer Abnormal mammogram of right breast Angina pectoris syndrome Chest pain Constipation Nephrosclerosis Renal interstitial fibrosis Obesity (BMI 30-39.9) Back pain GERD (gastroesophageal reflux disease) History of headache HTN (hypertension) Family History Family History Father Asthma Mother Asthma Hypertension Ovarian cancer Maternal Grandfather Myocardial infarction Paternal Grandmother Stroke Family history of problems with anesthesia: No Surgical History Surgical History History of sleeve gastrectomy S/P arteriovenous (AV) graft placement Fistula Hx of colonoscopy Hx of hysterectomy Hx of tubal ligation History of endometrial ablation History of Problems with Anesthesia: No Social History Social History Household Members: Children Household Members Other:: 30 year old special needs son Housing: Apartment Are you a primary childcare center director to a significant other at home: No Do you presently have visiting nurse or other home services: No Alcohol intake: never Comment: low fall risk Patient Tobacco Use Status: Former Tobacco user Tobacco use type: Cigarette Cigarette Packs Per Day: 1 Cigarettes Per Day: 1 Years Smoked: 10+ e-Cigarette/Vaping Use: Never Used Second Hand Smoke Exposure: No Use of substances other than those prescribed or required for medical reasons: No Substance Use Type: Caffiene Have you been hit, kicked, punched, or otherwise hurt by someone within the past year? If so, by whom?: No Are you DNR?: No Advance Directives: No Advance Directives Information Provided: Yes Advance Directives on File: No Advance Directives Date on File: 04/27/20 Patient : No : No service: No Current occupational status: employed Cognitive needs: No Hearing needs: No Vision needs: Yes (reading glasses) Meds Allergies Allergy/AdvReac Type Severity Reaction Status Date / Time ibuprofen Allergy Severe Unknown Verified 12/02/24 11:32 nifedipine Allergy Intermediate hives, leg Verified 12/02/24 11:32 edema Home Medications ?Medication ?Instructions ?Recorded ?Confirmed ?Last Taken ?Type ferrous sulfate 325 mg (65 mg 325 mg PO DAILY 05/11/20 11/23/24 09/16/24 History iron) tablet,delayed release cyanocobalamin (vitamin B-12) 1,000 mcg PO DAILY 10/17/20 11/23/24 09/16/24 History 1,000 mcg tablet acetaminophen 500 mg capsule 1,000 mg PO Q8H PRN Pain 08/10/23 11/23/24 09/16/24 History (Mapap (acetaminophen)) fluticasone propionate 50 1 spray intranasal DAILY PRN 08/10/23 11/23/24 05/18/24 History mcg/actuation nasal Allergy Symptoms spray,suspension [id number] 45 mg-folic 1 cap PO DAILY 08/10/23 11/23/24 09/16/24 History acid 800 mcg-vit K 120 mcg capsule (Bariatric Multivitamins) parenteral amino acid 15% no.5 15 0.5 ea IV MOWEFR@0900 08/10/23 11/23/24 06/02/24 History % combination no.5 intravenous solution (Clinisol SF) zinc acetate 50 mg (zinc) capsule 100 mg PO DAILY 05/19/24 11/23/24 09/16/24 History meclizine 12.5 mg tablet 12.5 mg PO TID PRN Nausea And 06/04/24 12/03/24 06/04/24 History Vomiting clotrimazole-betamethasone 1 1 appl topical DAILY PRN Rash 09/20/24 12/03/24 Unknown History %-0.05 % topical cream midodrine 5 mg tablet 5 mg PO TID 11/14/24 12/03/24 Unknown History misoprostol 200 mcg tablet 200 mcg PO 5XD 11/14/24 12/03/24 Unknown History omeprazole 40 mg capsule,delayed 40 mg PO BID@0630,1630 11/14/24 11/23/24 Unknown History release pantoprazole 40 mg tablet,delayed 40 mg PO QAM 11/14/24 11/23/24 Unknown History release pantoprazole 40 mg tablet,delayed 40 mg PO BID 12/03/24 12/03/24 Unknown History release Exam Narrative Narrative: EKG 11/13/24 Vent. Rate : 107 BPM Atrial Rate : 107 BPM P-R Int : 164 ms QRS Dur : 86 ms QT Int : 370 ms P-R-T Axes : 53 43 57 degrees QTcB Int : 493 ms Sinus tachycardia Nonspecific ST abnormality Abnormal ECG When compared with ECG of 20-Sep-2024 17:01, No significant change was found Assessment and Plan Final Anesthetic Review Family History of Problems with Anesthesia: No History of Problems with Anesthesia: No Documented by User: Yovana Huerta NP 12/03/24 10:04 HPI - Anesthesia Eval Consult details Narrative: 54 yr old female for upper endoscopy s/p upper endoscopy 11/18/24 [facility] 12/02/24 with intractable N/V ESRD: on diaylsis M, W, F [facility] Past Medical History 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 Lumbar back pain with radiculopathy affecting left lower extremity Physical exam (~02/14/21) Peritoneal dialysis catheter in place Polyarthralgia Dyslipidemia Family history of ovarian cancer Abnormal mammogram of right breast Angina pectoris syndrome Chest pain Constipation Nephrosclerosis Renal interstitial fibrosis Obesity (BMI 30-39.9) Back pain GERD (gastroesophageal reflux disease) History of headache HTN (hypertension) Family History Family History Father Asthma Mother Asthma Hypertension Ovarian cancer Maternal Grandfather Myocardial infarction Paternal Grandmother Stroke Surgical History Surgical History History of sleeve gastrectomy S/P arteriovenous (AV) graft placement Fistula Hx of colonoscopy Hx of hysterectomy Hx of tubal ligation History of endometrial ablation Social History Social History Household Members: Children Household Members Other:: 30 year old special needs son Housing: Apartment Are you a primary childcare center director to a significant other at home: No Do you presently have visiting nurse or other home services: No Alcohol intake: never Comment: low fall risk Patient Tobacco Use Status: Former Tobacco user Tobacco use type: Cigarette Cigarette Packs Per Day: 1 Cigarettes Per Day: 1 Years Smoked: 10+ e-Cigarette/Vaping Use: Never Used Second Hand Smoke Exposure: No Use of substances other than those prescribed or required for medical reasons: No Substance Use Type: Caffiene Have you been hit, kicked, punched, or otherwise hurt by someone within the past year? If so, by whom?: No Are you DNR?: No Advance Directives: No Advance Directives Information Provided: Yes Advance Directives on File: No Advance Directives Date on File: 04/27/20 Patient : No : No service: No Current occupational status: employed Cognitive needs: No Hearing needs: No Vision needs: Yes (reading glasses) Meds Allergies Allergy/AdvReac Type Severity Reaction Status Date / Time ibuprofen Allergy Severe Unknown Verified 12/02/24 11:32 nifedipine Allergy Intermediate hives, leg Verified 12/02/24 11:32 edema Home Medications ?Medication ?Instructions ?Recorded ?Confirmed ?Last Taken ?Type ferrous sulfate 325 mg (65 mg 325 mg PO DAILY 05/11/20 11/23/24 09/16/24 History iron) tablet,delayed release cyanocobalamin (vitamin B-12) 1,000 mcg PO DAILY 10/17/20 11/23/24 09/16/24 History 1,000 mcg tablet acetaminophen 500 mg capsule 1,000 mg PO Q8H PRN Pain 08/10/23 11/23/24 09/16/24 History (Mapap (acetaminophen)) fluticasone propionate 50 1 spray intranasal DAILY PRN 08/10/23 11/23/24 05/18/24 History mcg/actuation nasal Allergy Symptoms spray,suspension qijpbgoq-[id number]-gnvn 45 mg-folic 1 cap PO DAILY 08/10/23 11/23/24 09/16/24 History acid 800 mcg-vit K 120 mcg capsule (Bariatric Multivitamins) parenteral amino acid 15% no.5 15 0.5 ea IV MOWEFR@0900 08/10/23 11/23/24 06/02/24 History % combination no.5 intravenous solution (Clinisol SF) zinc acetate 50 mg (zinc) capsule 100 mg PO DAILY 05/19/24 11/23/2409/16/25 History meclizine 12.5 mg tablet 12.5 mg PO TID PRN Nausea And 06/04/24 12/03/24 06/04/24 History Vomiting clotrimazole-betamethasone 1 1 appl topical DAILY PRN Rash 09/20/24 12/03/24 Unknown History %-0.05 % topical cream midodrine 5 mg tablet 5 mg PO TID 11/14/24 12/03/24 Unknown History misoprostol 200 mcg tablet 200 mcg PO 5XD 11/14/24 12/03/24 Unknown History omeprazole 40 mg capsule,delayed 40 mg PO BID@0630,1630 11/14/24 11/23/24 Unknown History release pantoprazole 40 mg tablet,delayed 40 mg PO QAM 11/14/24 11/23/24 Unknown History release pantoprazole 40 mg tablet,delayed 40 mg PO BID 12/03/24 12/03/24 Unknown History release Exam Pertinent Lab Results Pertinent Lab Results: Laboratory Tests 12/02/24 11:58 WBC 8.4 Hgb 11.4 L D Hct 35.6 L D Plt Count 317 D Documented by User: Raquel Lawler MD 12/07/24 13:57 [facility] Past Medical History 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 Lumbar back pain with radiculopathy affecting left lower extremity Physical exam (~02/14/21) Peritoneal dialysis catheter in place Polyarthralgia Dyslipidemia Family history of ovarian cancer Abnormal mammogram of right breast Angina pectoris syndrome Chest pain Constipation Nephrosclerosis Renal interstitial fibrosis Obesity (BMI 30-39.9) Back pain GERD (gastroesophageal reflux disease) History of headache HTN (hypertension) Family History Family History Father Asthma Mother Asthma Hypertension Ovarian cancer Maternal Grandfather Myocardial infarction Paternal Grandmother Stroke Surgical History Surgical History History of sleeve gastrectomy S/P arteriovenous (AV) graft placement Fistula Hx of colonoscopy Hx of hysterectomy Hx of tubal ligation History of endometrial ablation Social History Social History Household Members: Children Household Members Other:: 30 year old special needs son Housing: Apartment Are you a primary childcare center director to a significant other at home: No Do you presently have visiting nurse or other home services: No Alcohol intake: never Comment: low fall risk Patient Tobacco Use Status: Former Tobacco user Tobacco use type: Cigarette Cigarette Packs Per Day: 1 Cigarettes Per Day: 1 Years Smoked: 10+ e-Cigarette/Vaping Use: Never Used Second Hand Smoke Exposure: No Use of substances other than those prescribed or required for medical reasons: No Substance Use Type: Caffiene Have you been hit, kicked, punched, or otherwise hurt by someone within the past year? If so, by whom?: No Are you DNR?: No Advance Directives: No Advance Directives Information Provided: Yes Advance Directives on File: No Advance Directives Date on File: 04/27/20 Patient : No : No service: No Current occupational status: employed Cognitive needs: No Hearing needs: No Vision needs: Yes (reading glasses) Meds Allergies Allergy/AdvReac Type Severity Reaction Status Date / Time ibuprofen Allergy Severe Unknown Verified 12/02/24 11:32 nifedipine Allergy Intermediate hives, leg Verified 12/02/24 11:32 edema Home Medications ?Medication ?Instructions ?Recorded ?Confirmed ?Last Taken ?Type ferrous sulfate 325 mg (65 mg 325 mg PO DAILY 05/11/20 11/23/24 09/16/24 History iron) tablet,delayed release cyanocobalamin (vitamin B-12) 1,000 mcg PO DAILY 10/17/20 11/23/24 09/16/24 History 1,000 mcg tablet acetaminophen 500 mg capsule 1,000 mg PO Q8H PRN Pain 08/10/23 11/23/24 09/16/24 History (Mapap (acetaminophen)) fluticasone propionate 50 1 spray intranasal DAILY PRN 08/10/23 11/23/24 05/18/24 History mcg/actuation nasal Allergy Symptoms spray,suspension scsznjff-yikdcgwp-jxzl 45 mg-folic 1 cap PO DAILY 08/10/23 11/23/24 09/16/24 History acid 800 mcg-vit K 120 mcg capsule (Bariatric Multivitamins) parenteral amino acid 15% no.5 15 0.5 ea IV MOWEFR@0900 08/10/23 11/23/24 06/02/24 History % combination no.5 intravenous solution (Clinisol SF) zinc acetate 50 mg (zinc) capsule 100 mg PO DAILY 05/19/24 11/23/24 09/16/24 History meclizine 12.5 mg tablet 12.5 mg PO TID PRN Nausea And 06/04/24 12/03/24 06/04/24 History Vomiting clotrimazole-betamethasone 1 1 appl topical DAILY PRN Rash 09/20/24 12/03/24 Unknown History %-0.05 % topical cream midodrine 5 mg tablet 5 mg PO TID 11/14/24 12/03/24 Unknown History misoprostol 200 mcg tablet 200 mcg PO 5XD 11/14/24 12/03/24 Unknown History omeprazole 40 mg capsule,delayed 40 mg PO BID@0630,1630 11/14/24 11/23/24 Unknown History release pantoprazole 40 mg tablet,delayed 40 mg PO QAM 11/14/24 11/23/24 Unknown History release pantoprazole 40 mg tablet,delayed 40 mg PO BID 12/03/24 12/03/24 Unknown History release Exam Airway Mallampati Class: III (loose left upper incisor) TM Dist: >3cm Neck ROM: Full Loose/Missing/Broken Teeth: Yes and Upper (left upper incisor) Heart: Rrr Lungs: CTA Assessment and Plan Assessment Anesthesia Assessment: Anesthesia Plan Discussed and Chart Reviewed Final Anesthetic Review NPO: Yes ASA Class: III Final Preanesthetic Review: Meds/Allgs Chart Reviewed, Consent Obtained/Reviewed and Anes Risks/Benef Reviewed Patient Risk: Intermediate Procedure Risk: Intermediate Anesthetic Plan Anesthetic Plan: MAC: Disposition: Standard PACU
[2024-12-03 11:04] VITALS: BMI 21.6
[2024-12-07 12:32] VITALS: BP 105/46; PULSE 78; RESP 18; TEMP 36.6; O2SAT 97
[2024-12-07 13:48] LABS: Anion Gap 14 (12-20); Carbon Dioxide 32 mmol/L (22-29); Chloride 98 mmol/L (96-108); Potassium 4.9 mmol/L (3.3-5.1); Sodium 139 mmol/L (135-145)
--- NOTE | 2024-12-07 14:01 | MHC.SHP ---
Pre-Procedural Eval Section A - 24 Hr Update-Section A only Date of Service: 12/07/24 The patient is an INPATIENT: No The patient has been examined within 24 hours of the surgical procedure. The History & Physical has been completed within 30 days and I have reviewed it.: Yes Section B - Complete if H&P > 30 days Chief Complaint: Nausea with vomiting, unspecified Relevant Family History (Specify if Yes): No Relevant Social History: None Present Medications: None Medical History: No relevant PMH History of Previous Operations: Relevant previous surgery/procedure and date(s) (laparoscopic sleeve gastrectomy, laparoscopic revision to gastric bypass) Allergies: Allergies Allergy/AdvReac Type Severity Reaction Status Date / Time ibuprofen Allergy Severe Unknown Verified 12/02/24 11:32 nifedipine Allergy Intermediate hives, leg Verified 12/02/24 11:32 edema Review of Systems Sugical H&P ROS: Yes, Specify: Gastrointestinal (nausea and vomiting) Exam Surgical H&P Exam: Normal: HEENT, Normal: Heart, Normal: Lungs, Normal: Extremities, Normal: Abdomen, Normal: Skin and Normal: Neurological Plan Diagnosis/Plan: Unchanged (EGD to assess the stomach's anatomy. Risks of bleeding and perforation were discussed with the patient and she is in agreement with the plan.) I have reviewed the history and physical and performed a pertinent physical examination on my patient. No changes have occurred unless specified. Time Spent With Patient Time: Total time managing care of this patient today ____ minutes.
--- NOTE | 2024-12-07 14:04 | PM.OP ---
Brief Operative Note Date of Service: 12/07/24 Pre-op diagnosis: Anastomotic ulcer, nausea and vomiting Post-op diagnosis: same Procedure: PROCEDURE DATE: ?12/07/2024 PREOPERATIVE DIAGNOSIS: abdominal pain, nausea and vomiting, s/p gastric bypass POSTOPERATIVE DIAGNOSIS: ?Same as above. PROCEDURE: [id number] Surgeon: ?Jude Berry M.D.. Ph.D. Nursery Worker: ?None ? Anesthesia: IV sedation Estimated blood loss: ?Minimal FINDINGS AND PROCEDURE: ? OPERATIVE INDICATIONS: ?The patient is a 54 year old female known to me who underwent initially a laparoscopic sleeve gastrectomy by Dr. Coot. 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 She underwent an initial procedure with lysis of adhesions that did not resolve the issue, followed by a conversion to laparoscopic gastric bypass. She developed again postoperative GI bleeding. The patient continued to have nausea, vomiting and abdominal pain and required an additional procedure a month ago at [facility] for GI bleeding. The operative report stated that the patient did not have the usual Sae-en-y anatomy: the pouch was very large and the previous sleeve was still in place. In addition, there was significant inflammation in the pouch and the patient was asked to quit smoking. The patient was admitted in our hospital for abdominal pain, nausea and vomiting. I did an endoscopy 2 weeks ago and there was inflammation at the pouch as well as the GJ anastomosis. The patient was placed on a liquid diet with protein shakes, in which she was not entirely compliant. Based on this information I recommended an upper endoscopy to re-assess the pouch and the anastomosis.? Risks and complications of the surgery were discussed with the patient in advance particularly the possibility of perforation or bleeding that may require surgical intervention. The patient understood the risks and was in agreement with the plan. ? PROCEDURE: After informed consent was obtained by the patient, the patient was ?transferred to the Operating Room and was placed in the supine position.? After successful induction of IV sedation, a mouth block was placed and the patient was placed in the left lateral decubitus position. An upper endoscopy was performed next, the oropharynx and esophagus appeared within the normal limits. There was no hiatal hernia.? The z-line was smooth. The pouch was extremely long (41 to 53cm from incisors). The mucosa was inflamed and engorged but improved from last endoscopy. As a result the lumen was larger and expanding better with insufflation. The gastrojejunostomy was patent and much more enlarged from previous endoscopy. The inflammation has improved and there were two superficial ulcers at the proximal Sae limb distal from the anastomosis. The blind end of the Sae limb was healthy as well as the more distal Sae limb. There were two clips at the GJ anastomosis and one more at the proximal Sae limb probably from the reported postop GI bleed the patient had after the bypass. No significant bleeding was noted from any of the biopsy sites.? At that point the scope was advanced into the proximal small intestine (proximal Sae limb) which appeared to be normal as well. The Sae limb and the pouch were decompressed and the scope was withdrawn from the patient's mouth. The patient was awaken and was transferred in stable condition to the Recovery Room for further care. I was present and performed all steps of the procedure. There were no residents to assist with this case. Jude Berry M.D., Ph.D. Surgeon: Jr Berry MD Anesthesia: MAC Was an Nursery Worker used for this Procedure?: No Estimated blood loss (mL): 0 IV fluids (mL): 100 Urine output (mL): 0 Pathology: none sent Condition: stable Disposition: PACU
[2024-12-07 14:23] VITALS: BP 108/54; PULSE 69; RESP 18; TEMP 36.3; O2SAT 100
[2024-12-07 14:38] VITALS: BP 123/69; PULSE 85; RESP 16; TEMP 36.7; O2SAT 100
== END 2024-12-07 15:26 | disposition home or self-care (01) ==
PROVIDERS: Nurse Practitioner; PCP Internal Medicine; Visit Provider Surgery
PROC: 0DJ08ZZ Inspection of Upper Intestinal Tract, Via Natural or Artificial Opening Endoscopic (ICD-10-PCS; CPT 43235; principal; 2024-12-07 15:00)
DX: K28.9 Gastrojejunal ulcer, unspecified as acute or chronic, without hemorrhage or perforation (principal); R11.2 Nausea with vomiting, unspecified; K91.89 Other postprocedural complications and disorders of digestive system; K91.850 Pouchitis; R10.84 Generalized abdominal pain; Z91.119 Patient's noncompliance with dietary regimen due to unspecified reason; Z98.84 Bariatric surgery status
CPT/HCPCS: 43235; 36415; 80051

== ENCOUNTER → 2024-12-07 11:50 | Outpatient (BNV) | payer MEDICARE, MEDICAID, SELFPAY | PROVIDERS: PCP Internal Medicine; Visit Provider Surgery | DX: R10.84 Generalized abdominal pain (principal); R11.2 Nausea with vomiting, unspecified | CPT/HCPCS: 43235 ==

== ENCOUNTER 2024-12-11 09:25 | Emergency (ER) | payer MEDICARE, MEDICAID, SELFPAY ==
[2024-12-11 09:35] VITALS: BP 191/94; BP 197/94; PULSE 102; RESP 17; TEMP 37; O2SAT 98; O2SAT 99; BMI 22.0
--- NOTE | 2024-12-11 09:40 | ED.NAVMDI ---
HPI - Nausea/Vomiting/Diarrhea General Chief complaint: Nausea/Vomiting/Diarrhea Stated complaint: VOMITED BLOOD LAST NIGHT,H/O ULCER PER EMS Time Seen by Provider: 12/11/24 09:34 Source: patient and EMS Mode of arrival: EMS Limitations: no limitations History of Present Illness ED Provider: Cori Fisher APRN HPI Narrative: 54-year-old female with history of erosive gastritis, anemia, gastric bypass, end-stage renal disease on dialysis, hidradenitis suppurativa, superior mesenteric artery stenosis, malnutrition, anxiety and depression, chronic back pain, and hypertension presenting to the emergency department today for intractable nausea/vomiting with coffee ground emesis and epigastric pain. She is taking carafate QID, protonix daily. Last seen in our ED on 11/13-11/[address] showed concerns for possible SBO. Surgery admitted her. She was discharged on 11/19/24. She rec'd 1 unit of blood on day 3 of admission. Repeat labs showed appropriate rise in H/H. She had EGD on 11/[address] Berry. It showed diffuse mucosal inflammation and superficial ulcers (erosive gastritis). She was advised to follow up with bariatric outpatient. She was seen again in our ER on 12/02 and discharged home with diagnosis of gastritis with recommendations to follow-up with bariatrics. She had a repeat EGD on 12/10 which showed mucosal inflammation which was improved from previous. Since being home she reports she has been doing shakes, fit crunch bars and yogurts and has been feeling well until last evening when she developed N/V and epigastric pain. She had diarrhea last evening which is now resolved. It was not bloody or black. She denies fevers, chills. Associated nausea: Yes Related Data Home Medications ?Medication ?Instructions ?Recorded ?Confirmed ferrous sulfate 325 mg (65 mg 325 mg PO DAILY 05/11/20 11/23/24 iron) tablet,delayed release cyanocobalamin (vitamin B-12) 1,000 mcg PO DAILY 10/17/20 11/23/24 1,000 mcg tablet acetaminophen 500 mg capsule 1,000 mg PO Q8H PRN Pain 08/10/23 11/23/24 (Mapap (acetaminophen)) fluticasone propionate 50 1 spray intranasal DAILY PRN 08/10/23 11/23/24 mcg/actuation nasal Allergy Symptoms spray,suspension cbcahyuz-imvfoall-wusr 45 mg-folic 1 cap PO DAILY 08/10/23 11/23/24 acid 800 mcg-vit K 120 mcg capsule (Bariatric Multivitamins) parenteral amino acid 15% no.5 15 0.5 ea IV MOWEFR@0900 08/10/23 11/23/24 % combination no.5 intravenous solution (Clinisol SF) zinc acetate 50 mg (zinc) capsule 100 mg PO DAILY 05/19/24 11/23/24 meclizine 12.5 mg tablet 12.5 mg PO TID PRN Nausea And 06/04/24 12/03/24 Vomiting clotrimazole-betamethasone 1 1 appl topical DAILY PRN Rash 09/20/24 12/03/24 %-0.05 % topical cream midodrine 5 mg tablet 5 mg PO TID 11/14/24 12/03/24 misoprostol 200 mcg tablet 200 mcg PO 5XD 11/14/24 12/03/24 omeprazole 40 mg capsule,delayed 40 mg PO BID@0630,1630 11/14/24 11/23/24 release pantoprazole 40 mg tablet,delayed 40 mg PO QAM 11/14/24 11/23/24 release pantoprazole 40 mg tablet,delayed 40 mg PO BID 12/03/24 12/03/24 release Previous Rx's ?Medication ?Instructions ?Recorded thiamine HCl (vitamin B1) 100 mg 100 mg PO DAILY 90 days #90 tabs 09/27/23 tablet vitamin A 2,400 mcg capsule 2,400 mcg PO DAILY 90 days #90 caps 02/05/24 citalopram 20 mg tablet 20 mg PO DAILY 90 days #90 tabs 09/08/24 melatonin 10 mg capsule 20 mg (2 x 10 mg) PO BEDTIME #90 09/20/24 caps pyridoxine (vitamin B6) 50 mg 50 mg PO DAILY 90 days #90 tabs 10/21/24 tablet gabapentin 400 mg capsule 400 mg PO BID 90 days #180 caps 11/10/24 ondansetron 4 mg disintegrating 4 mg PO Q8H PRN nausea and 11/10/24 tablet vomiting #10 tabs sucralfate 100 mg/mL oral 10 ml PO BID #600 mL 11/19/24 suspension docusate sodium 100 mg capsule 100 mg PO BID #60 caps 11/25/24 acetaminophen 300 mg-codeine 30 mg 1 tab PO Q8H PRN severe pain 12/02/24 tablet (scale score 7-10) #10 tabs Allergies Allergy/AdvReac Type Severity Reaction Status Date / Time ibuprofen Allergy Severe Unknown Verified 12/11/24 09:38 nifedipine Allergy Intermediate hives, leg Verified 12/11/24 09:38 edema Review of Systems Review of Systems: Yes all other systems are reviewed and are negative Constitutional: Constitutional: Reports no additional constitutional complaints, Denies body ache(s), Denies chills, Denies fever(s), Denies headache(s) and Denies weakness Eyes: Eyes: Reports no additional eye complaints and Denies change in vision ENT: Reports system reviewed and no additional complaints, except as documented, Denies dizziness, Denies headache(s), Denies nasal congestion, Denies nasal discharge and Denies neck pain Cardiovascular: Cardiovascular: Reports no additional cardiovascular complaints, Denies chest pain, Denies leg edema and Denies dyspnea Respiratory: Respiratory: Reports no additional respiratory complaints, Denies cough and Denies dyspnea Gastrointestinal: Gastrointestinal: Reports no additional gastrointestinal complaints, Reports abdominal pain, Denies melena, Denies hematochezia, Denies diarrhea, Reports nausea, Reports vomiting and Reports hematemesis Genitourinary: Genitourinary: Reports no additional female genitourinary complaints and Denies urinary incontinence Musculoskeletal: Musculoskeletal: Reports no additional musculoskeletal complaints, Denies back pain, Denies arthralgias, Denies joint swelling, Denies neck pain, Denies numbness and Denies tingling Integumentary/Breasts: Skin/Breast: Reports system reviewed and no additional complaints, except as docu and Denies rash Neurologic: Reports system reviewed and no additional complaints, except as documented, Denies Abnormal speech present, Denies dizziness, Denies headache(s), Denies numbness, Denies tingling and Denies weakness PMFSH Past Medical History Attestation statement: The following information was validated with the patient. 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 Lumbar back pain with radiculopathy affecting left lower extremity Physical exam (~02/14/21) Peritoneal dialysis catheter in place Polyarthralgia Dyslipidemia Family history of ovarian cancer Abnormal mammogram of right breast Angina pectoris syndrome Chest pain Constipation Nephrosclerosis Renal interstitial fibrosis Obesity (BMI 30-39.9) Back pain GERD (gastroesophageal reflux disease) History of headache HTN (hypertension) Surgical History History of sleeve gastrectomy S/P arteriovenous (AV) graft placement Fistula Hx of colonoscopy Hx of hysterectomy Hx of tubal ligation History of endometrial ablation Family History Family History Father Asthma Mother Asthma Hypertension Ovarian cancer Maternal Grandfather Myocardial infarction Paternal Grandmother Stroke Social History Social History Household Members: Children Household Members Other:: 30 year old special needs son Housing: Apartment Are you a primary infant caregiver to a significant other at home: No Do you presently have visiting nurse or other home services: No Alcohol intake: never Comment: low fall risk Patient Tobacco Use Status: Former Tobacco user Tobacco use type: Cigarette Cigarette Packs Per Day: 1 Cigarettes Per Day: 1 Years Smoked: 10+ e-Cigarette/Vaping Use: Never Used Second Hand Smoke Exposure: No Substance Use Type: Caffiene Advance Directives: Yes Advance Directives on File: Yes Advance Directives Date on File: 04/27/20 Do you have a plan to hurt others: No Plan service: No Current occupational status: employed Cognitive needs: No Hearing needs: No Vision needs: Yes (reading glasses) Physical Exam Vital Signs: Vital Signs: Last Vital Signs Temp 97.6 F 12/11/24 15:10 Pulse 91 12/11/24 15:10 Resp 20 12/11/24 15:10 BP 135/66 12/11/24 15:10 Pulse Ox 99 12/11/24 15:10 O2 Del Method Room Air 12/11/24 15:10 BMI result Body Mass Index 22.0 Const: General: cooperative, healthy appearing, comfortable and no acute distress Orientation/consciousness: patient oriented x3 Limitations: no limitations HEENT: Head: Yes normal to inspection Ears: hearing grossly normal bilaterally General nose exam: Normal external nose present Face and sinus: Yes normal facial exam Mouth: Normal oral and palatal mucosa present Throat: Yes posterior oropharynx normal Eyes: General: appearance normal, both eyes and all related structures Pupils: Equal, round and reactive pupils present Neck: Neck: Yes normal visual inspection Chest: Chest palpation & inspection: normal inspection of the chest Resp: Effort & Inspection: normal respiratory effort Auscultation: clear to auscultation bilaterally Cardio: Rate: regular rate Rhythm: regular rhythm Peripheral pulses: Peripheral pulses 2+ throughout GI: Other: Rectal exam-black stool 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 Inspection: Yes normal to inspection Palpation (GI): Soft to palpation and Tenderness to palpation present (GI) (diffusely tender-no rebound or guarding ) Auscultation: normal bowel sounds Back/Spine/Pelvis: Thoracic/Lumbar Spine: thoracic and lumbar spine normal to inspection Skin: General skin exam: no rashes or lesions noted Neuro: General: patient oriented x3, no focal motor deficits and normal sensation to monofilament Cranial nerves: Yes Equal, round and reactive pupils present Cognition (Neuro): normal cognition Speech: No Abnormal speech present Gait exam (Neuro): Normal gait present Motor exam (neuro): 5/5 motor strength present throughout Extrem: General: Yes normal to inspection Course Course Course Narrative: 1200-Labs are re-assuring. Patient feeling improved. Will close the the loop with patient's bariatric surgeon. Reevaluation(s) Reevaluation #1: 1515-patient feels improved. Tolerating juice and ice chips. I did attempt to reach out to her bariatric surgeon to see if they wanted any additional imaging (11am-[place]) but they did not return our call. Recommend patient continue with her diet and medication at home. Recommend follow-up with her bariatric surgeon. Reviewed worrisome signs and symptoms of when to return to the emergency room. Comfortable plan for discharge home Medications Administered Discontinued Medications Generic Name Dose Route Start Last Admin Trade Name Freq PRN Reason Stop Dose Admin Famotidine 20 mg 12/11/24 09:49 12/11/24 10:36 Famotidine/Pf 20 Mg/2 Ml Vial IVPUSH 12/11/24 09:50 20 mg ONCE ONE Administration Sodium Chloride 500 mls @ 999 mls/hr 12/11/24 09:49 12/11/24 11:14 Ns IV 12/11/24 10:19 Infused .Q31M STA Infusion Morphine Sulfate 4 mg 12/11/24 11:09 12/11/24 11:16 Morphine Sulfate 4 Mg/Ml Cartridge IVPUSH 12/11/24 11:10 4 mg ONCE ONE Administration Protocol Ondansetron HCl 4 mg 12/11/24 09:49 12/11/24 10:36 Ondansetron Hcl 4 Mg/2 Ml Vial IVPUSH 12/11/24 09:50 4 mg ONCE ONE Administration Pantoprazole Sodium 40 mg 12/11/24 09:49 12/11/24 10:36 Pantoprazole Sodium 40 Mg/10 Ml Vial IVPUSH 12/11/24 09:50 40 mg ONCE ONE Administration Medical Decision Making Medical Decision Making [facility] Narrative: 54-year-old female with history of erosive gastritis, anemia, gastric bypass, end-stage renal disease on dialysis, hidradenitis suppurativa, superior mesenteric artery stenosis, malnutrition, anxiety and depression, chronic back pain, and hypertension presenting to the emergency department today for intractable nausea/vomiting with coffee ground emesis and epigastric pain.' Abdomen is diffusely tender with no rebound or guarding. +BS Rectal exam with black stool VSS Will obtain labs, UA, EKG, send occult stool Will give PPI, IVF, antiemetic Differential Diagnosis Differential Diagnoses: The differential diagnosis associated with the presentation includes PUD, upper GIB Admission/Observation Consideration of admission/observation: Escalation of care including admission/observation considered Lab Data [facility] Lab Attestation statement: I reviewed the patient's lab results. 12/11/24 10:31 12/11/24 10:31 Labs: Lab Results 12/11/24 Range/Units 10:31 WBC 14.2 H (4.8-10.8) X10*3/uL RBC 4.03 L (4.20-5.50) X10*6/uL Hgb 12.0 (12.0-16.0) g/dl Hct 37.0 (37.0-47.0) % MCV 91.8 (80.0-98.0) fL MCH 29.8 (27.0-33.0) pg MCHC 32.4 (31.0-35.0) g/dl RDW 15.7 (11.0-16.0) % Plt Count 287 (160-400) X10*3/uL MPV 9.5 (9.4-12.3) fL Immature Gran % (Auto) 0.4 (0.0-0.4) % Neut % (Auto) 87.9 H (45-73) % Lymph % (Auto) 7.1 L (20-40) % Crockett % (Auto) 4.3 (2-11) % Eos % (Auto) 0.0 (0-4) % Baso % (Auto) 0.3 (0-2) % Lymph # (Auto) 1.0 L (1.2-4.9) X10*3/uL [place]ckett # (Auto) 0.6 (0.1-1.2) X10*3/uL Eos # (Auto) 0.0 (0.0-0.4) X10*3/uL Baso # (Auto) 0.0 (0.0-0.2) X10*3/uL Abs Immat Gran (auto) 0.06 H (0.00-0.03) X10*3/uL Absolute Neuts (auto) 12.5 H (2.0-8.3) x10*3/uL Absolute Nucleated RBC 0.000 (0.0-0.012) X10*3/uL Nucleated RBC % (auto) 0.0 (0.0-0.2) /100WBC PT 12.3 (10.9-12.4) SEC INR 1.1 (0.9-1.1) Sodium 138 (135-145) mmol/L Potassium 4.5 (3.3-5.1) mmol/L Chloride 98 (96-108) mmol/L Carbon Dioxide 29 (22-29) mmol/L Anion Gap 16 (12-20) BUN 21 H (9-16) mg/dL Creatinine 3.31 H (0.5-1.4) mg/dL Estim Creat Clear Calc 17.7 Estimated GFR 15 Random Glucose 136 H (60-115) mg/dL Calcium 10.2 (8.4-10.2) mg/dL Total Bilirubin 0.3 (0.0-1.0) mg/dL Direct Bilirubin 0.1 (0.0-0.5) mg/dL AST 25 (5-31) U/L ALT 8 (0-31) U/L Alkaline Phosphatase 151 H (39-117) U/L Total Protein 7.2 (6.5-8.0) g/dL Albumin 4.2 (3.5-5.0) g/dL Stool Occult Blood POSITIVE (NEGATIVE) Independent Interpretation I performed an independent interpretation of an: EKG Interpretation: I independently viewed the EKG which shows normal sinus rhythm with a rate of 100, normal UT, normal QRS, QTC 508 Independent Historian Clinical information obtained from an independent historian. History obtained from or confirmed by: EMS Discharge Plan Discharge Clinical Impression: Gastritis Patient Disposition: Home, Self-Care Instructions: Gastritis (ED) Additional Instructions: Continue your home medication Continue your diet which is recommended by her bariatric surgery Follow-up with your bariatric surgeon on Friday Prescriptions: No Action thiamine HCl (vitamin B1) 100 mg tablet 100 mg PO DAILY 90 Days Qty: 90 0RF vitamin A 2,400 mcg capsule 2,400 mcg PO DAILY 90 Days Qty: 90 1RF citalopram 20 mg tablet 20 mg PO DAILY 90 Days Qty: 90 1RF melatonin 10 mg capsule 20 mg PO BEDTIME Qty: 90 0RF pyridoxine (vitamin B6) 50 mg tablet 50 mg PO DAILY 90 Days Qty: 90 1RF gabapentin 400 mg capsule 400 mg PO BID 90 Days Qty: 180 1RF ondansetron 4 mg tablet,disintegrating 4 mg PO Q8H PRN (Reason: nausea and vomiting) Qty: 10 0RF sucralfate 100 mg/mL suspension 10 ml PO BID Qty: 600 2RF docusate sodium 100 mg capsule 100 mg PO BID Qty: 60 3RF cyanocobalamin (vitamin B-12) 1,000 mcg Tablet 1,000 mcg PO DAILY clotrimazole-betamethasone 1-0.05 % cream 1 appl topical DAILY PRN (Reason: Rash) acetaminophen [Mapap (acetaminophen)] 500 mg capsule 1,000 mg PO Q8H PRN (Reason: Pain) Clinisol SF 15 % 15 % parenteral solution 0.5 ea IV MOWEFR@0900 Rx Instructions: DIALYSIS MEDICATION Bariatric Multivitamins 45 mg iron- 800 mcg-120 mcg Capsule 1 cap PO DAILY fluticasone propionate 50 mcg/actuation spray,suspension 1 spray intranasal DAILY PRN (Reason: Allergy Symptoms) Rx Instructions: administer into each nostril zinc acetate 50 mg (zinc) Capsule 100 mg PO DAILY meclizine 12.5 mg Tablet 12.5 mg PO TID PRN (Reason: Nausea And Vomiting) pantoprazole 40 mg tablet,delayed release (DR/EC) 40 mg PO QAM misoprostol 200 mcg tablet 200 mcg PO 5XD omeprazole 40 mg capsule,delayed release(DR/EC) 40 mg PO BID@0630,1630 midodrine 5 mg tablet 5 mg PO TID pantoprazole 40 mg tablet,delayed release (DR/EC) 40 mg PO BID acetaminophen-codeine 300-30 mg tablet 1 tab PO Q8H PRN (Reason: severe pain (scale score 7-10)) Qty: 10 0RF ferrous sulfate 325 mg (65 mg iron) tablet,delayed release (DR/EC) 325 mg PO DAILY Referrals: Jr Berry MD [Physician, Bariatric Surgery] Interventions: ED Discharge Assessment Last Done: 12/11/24 15:10 Discharge Date/Time: 12/11/24 15:11 Print Language: Indian
--- NOTE | 2024-12-11 09:49 | ECG_ITS ---
Test Reason : CHECK QTC VOMITING Blood Pressure : */* mmHG Vent. Rate : 100 BPM Atrial Rate : 100 BPM P-R Int : 138 ms QRS Dur : 82 ms QT Int : 394 ms P-R-T Axes : 52 62 60 degrees QTcB Int : 508 ms Normal sinus rhythm Possible Left atrial enlargement Nonspecific ST abnormality Prolonged QT Abnormal ECG When compared with ECG of 02-Dec-2024 12:23, T wave amplitude has increased in Anterior leads Referred By: Cori Fisher Electronically Signed By: MINO ROWE
--- OUTSIDE RECORDS SUMMARY | 2024-12-11 09:58 | XMS_ITS | Encounter Summary ---
Author Organization [facility]. Address [address] [address] Phone Care Team Providers Care Cargo Service Agent Name Role Phone Rozina Nicole MD Primary Care Provider [phone] Encounter Details Date Type Department Care Team ([facility] st Contact Info) Description 12/10/2024 Treatment [facility]. [address] [id number] Yamileth Varghese MD [address] [phone] End stage renal disease; [...] Dialysis Note - Yamileth Varghese MD - 12/10/2024 12:00 AM EDT BASIC NOTE Patient: Meliza Perry : 1970 Note Author: YAMILETH VARGHESE MD Service Date: 12/10/2024 This patient was personally seen [id number] for a basic visit as part of routine monthly dialysis care for end stage renal disease. Attending Chief Meteorologist: YAMILETH VARGHESE Dialysis Location: [facility] Schedule: Shift: ADEQUACY ASSESSMENT Kt/V, Natural Log 1.22 (11/22/24) 1.16 (11/10/24) 1.25 (10/25/24) UREA REDUCTION RATIO (%) 69 (11/22/24) 64 (11/10/24) 67 (10/25/24) BUN 35 (11/22/24) 39 (11/10/24) 24 (10/25/24) BUN Post Dialysis 11 (11/22/24) 14 (11/10/24) 8 (10/25/24) Creatinine 4.82 (11/10/24) 4.75 (10/20/24) 6.26 (09/17/24) Bicarbonate (CO2) 23 (11/10/24) 25 (10/20/24) 20 (09/17/24) Sodium 136 (11/10/24) 134 (10/20/24) 128 (09/17/24) ANEMIA ASSESSMENT Hgb 9.2 (12/08/24) 9.2 (12/03/24) 9.5 (12/01/24) Iron Saturation (TSat) 33 (11/10/24) 63 (10/20/24) 20 (09/17/24) Ferritin 599 (11/10/24) 1,296 (10/20/24) 622 (09/17/24) Iron 54 (11/10/24) 93 (10/20/24) 41 (09/17/24) TIBC 165 (11/10/24) 147 (10/20/24) 200 (09/17/24) MCV 94.5 (11/10/24) 93.6 (10/20/24) 97.3 (09/17/24) Platelets 298 (11/10/24) 339 (10/20/24) 298 (09/17/24) BMM ASSESSMENT Calcium, Adjusted Total 8.9 11/10/24 9.6 10/20/24 8.8 09/17/24 Calcium 8.5 11/10/24 9.2 10/20/24 8.6 09/17/24 Phosphorus, Serum 3.6 11/10/24 2.9 10/20/24 3.2 10/04/24 Ca*PO4 30.6 11/10/24 26.7 10/20/24 49.9 09/17/24 PTH, Intact 1,236 11/10/24 510 08/16/24 501 07/14/24 Magnesium 2.0 11/10/24 2.2 10/20/24 2.3 09/17/24 Alkaline Phosphatase 120 11/10/24 123 10/20/24 177 09/17/24 Aluminum 4 02/20/24 NUTRITION ASSESSMENT Albumin 3.5 11/10/24 3.5 10/20/24 3.7 09/17/24 Potassium 5.1 12/08/24 3.9 12/01/24 3.7 11/24/24 Glucose 103 11/10/24 126 10/20/24 74 09/17/24 Hemoglobin A1C 4.2 11/10/24 4.9 08/16/24 5.0 05/14/24 ADDITIONAL LABS White Blood Cells 4.0 (11/10/24) 7.4 (10/20/24) 7.7 (09/17/24) Cholesterol 164 (11/10/24) 121 (08/16/24) 155 (05/14/24) HDL 58 (11/10/24) 44 (08/16/24) 47 (05/14/24) LDL-Calc 86 (11/10/24) 59 (08/16/24) 82 (05/14/24) Triglycerides 99 (11/10/24) 88 (08/16/24) 130 (05/14/24) Hep B Surface Antibody ?1,000 (02/20/24) Uric Acid 9.6 (02/20/24) Chol/HDL Ratio 2.8 (11/10/24) 2.8 (08/16/24) 3.3 (05/14/24) ALT (SGPT) 11 (11/10/24) 19 (10/20/24) 13 (09/17/24) AST (SGOT) 12 (11/10/24) 39 (10/20/24) 13 (09/17/24) ADDITIONAL COMMENT COMMENTS: 07/07/24 doing better now, re ent isabell aguirre for GI flare 07/12/24: same issues w [...] on/off pro 10/29/24 same issues 11/05/24 stable 11/22/24 doing ok 11/29/24 stable 12/06 no new issues Signed by: YAMILETH VARGHESE MD on 12/10/2024 at 11:24:47 PM Transcribed by: YAMILETH VARGHESE MD on 12/10/2024 at 11:24:47 PM documented in this encounter Plan of Treatment Not on file documented as of this encounter Visit Diagnoses Diagnosis End stage renal disease Dependence on renal dialysis documented in this encounter Care Teams Cargo Service Agent Relationship Specialty Start Date End Date Rozina Nicole MD [address] [place], [place] PCP - General 02/21/20 documented as of this encounter
--- OUTSIDE RECORDS SUMMARY | 2024-12-11 09:58 | XMS_ITS | Clinical Summary ---
Author Organization [facility] Address [address] [place] [address] [place] [address] Phone Care Team Providers Care Head Machine Feeder Name Role Phone Rozina Nicole MD Primary Care Provider [phone] Allergies Active Allergy Reactions Criticality Noted Date [...] ureter 05/02/2020 05/02/2020 Hypertensive heart disease w [facility] heart failure 05/02/2020 09/07/2020 Encounters Date Type Department Care Team Description 12/10/2024 Treatment [facility] [address] [facility] [address] [place] [phone] Jon Wang MD End stage renal disease; Dependence on renal dialysis 12/06/2024 Treatment [facility] [address] [facility] [address] [place] [phone] Jon Wang MD End stage renal disease; Dependence on renal dialysis 11/29/2024 Treatment [facility] [address] [phone] Jon Wang MD End stage renal disease; Dependence on renal dialysis 11/22/2024 Treatment [facility] [address] [phone] Jon Wang MD End stage renal disease; Dependence on renal dialysis 11/05/2024 Treatment [facility] [address] [phone] Jon Wang MD End stage renal disease; Dependence on renal dialysis 10/29/2024 Treatment [facility] [address] [phone] Jon Wang MD End stage renal disease; Dependence on renal dialysis 10/25/2024 Treatment [facility] [address] [phone] Jon Wang MD End stage renal disease; Dependence on renal dialysis 10/08/2024 Treatment [facility] [address] [phone] Jon Wang MD End stage renal disease; Dependence on renal dialysis 10/08/2024 Orders Only [facility] [address] [phone] Jon Wang MD 09/27/2024 Treatment [facility] [address] [phone] Jon Wang MD End stage renal disease; Dependence on renal dialysis 09/20/2024 Treatment [facility] [address] [phone] Jon Wang MD End stage renal disease; Dependence on renal dialysis 09/13/2024 Treatment [facility] [address] [facility] [address] [place] [phone] Jon Wang MD End stage renal disease; Dependence on renal dialysis 09/10/2024 Treatment [facility] [address] [facility] [facility] [address] [place] [phone] Jon Wang MD End stage renal disease; Dependence on renal dialysis 09/10/2024 Treatment [facility] MD [address] [place] [phone] Jon Wang MD End stage renal disease; [...] Date/Time Associated Diagnosis Comments LIH (HC) Routine 12/08/2024 3:00 AM EDT POTASSIUM Routine 12/08/2024 3:00 AM EDT HEMOGLOBIN Routine 12/08/2024 3:00 AM EDT HEMOGLOBIN Routine 12/03/2024 3:00 AM EDT POTASSIUM Routine 12/01/2024 3:00 AM EDT LIH (HC) Routine 12/01/2024 3:00 AM EDT HEMOGLOBIN Routine 12/01/2024 3:00 AM EDT LIH (HC) Routine 11/24/2024 3:00 AM EDT POTASSIUM Routine 11/24/2024 3:00 AM EDT HEMOGLOBIN AND HEMATOCRIT, BLOOD Routine 11/24/2024 3:00 AM EDT LIH () Routine 11/22/2024 3:00 AM EDT POTASSIUM Routine 11/22/2024 3:00 AM EDT KT/V NATURAL LOG, URR (HC) Routine 11/22/2024 3:00 AM EDT HEMOGLOBIN A1C Routine 11/10/2024 3:00 AM EDT [...] AND DIFFERENTIAL Routine 09/17/2024 3:00 AM EDT from Last 3 Months Results * LIH (12/08/2024 3:00 AM EDT) Only the most recent of14 resultswithin the time period is included. Lipemia Normal Normal [facility] Icterus Normal Normal [facility] Hemolysis Normal Normal [facility] 12/08/2024 3:00 AM EDT 12/09/2024 12:29 PM EDT Jon Wang MD LAB [id number] SOLICITED RESULTS Final Result Performing Organization Address [facility] de Phone Number [facility] [address] [place] [address] * (ABNORMAL) Hemoglobin (12/08/2024 3:00 AM EDT) Only the most recent of4 resultswithin the time period is included. Hgb 9.2(L) 11.2 - 15.7 g/dL [facility] Hemoglobin x 3 27.6(L) 33.6 - 47.1 g/dL [facility] 12/08/2024 3:00 AM EDT 12/09/2024 12:30 PM EDT Jon Wang MD LAB BLOOD ORDERABLES Final Re sult Performing Organization Address [facility] Co de Phone Number [facility] [address] [place] [address] * (ABNORMAL) Potassium (12/08/2024 3:00 AM EDT) Only the most recent of7 resultswithin the time period is included. Potassium 5.1(H) 3.4 - 5.0 mEq/L [facility] 12/08/2024 3:00 AM EDT 12/09/2024 12:29 PM EDT Jon Wang MD LAB BLOOD ORDERABLES Final Re sult Performing Organization Address [facility] de Phone Number [facility] [address] [place] [address] * (ABNORMAL) Hemoglobin and hematocrit (11/24/2024 3:00 AM EDT) Only the most recent of3 resultswithin the time period is included. Hgb 8.6(L) 11.2 - 15.7 g/dL [facility] Hematocrit 26.7(L) 34.1 - 44.9 % [facility] Hemoglobin x 3 25.8(L) 33.6 - 47.1 g/dL [facility] 11/24/2024 3:00 AM EDT 11/25/2024 1:16 PM EDT Jon Wang MD LAB BLOOD ORDERABLES Final Re sult Performing Organization Address [facility] de Phone Number [facility] [address] [place] [address] * (ABNORMAL) Kt/V Natural Log, URR (11/22/2024 3:00 AM EDT) Only the most recent of7 resultswithin the time period is included. Treatment Time 177 min [facility] Pre-Weight, lb 60.5 kg [facility] Post-Weight, lb 60.9 kg [facility] Ultrafiltration Rate See Comment(A A) <=13 mL/kg/hr [facility] Comment: Unable to calculate due to post-weight greater than pre-weight. Recommend achieving Ultrafiltration Rate (UFR) <=10 mL/kg/hr References: Terrell GARCIA et al. Kidney Int. 2010; 79(2):250-257 BUN 35(H) 7 - 25 mg/dL [facility] BUN Post Dialysis 11 7 - 25 mg/dL [facility] UREA REDUCTION RATIO (%) 69 >=65 % [facility] Kt/V Natural Log 1.22 >=1.2 [facility] 11/22/2024 3:00 AM EDT 11/23/2024 1:46 PM EDT us Jon Wang MD LAB [id number] SOLICITED RESULTS Final Result Performing Organization Address [facility]/ZIP Co de Phone Number [facility] [address] [place] [address] * (ABNORMAL) Calcium Phosphorus Product, Adjusted (11/10/2024 [...] PM EDT us Jon Wang MD LAB [id number] SOLICITED RESULTS Final Result Performing Organization Address [facility] de Phone Number [facility] [address] [place] [address] * Hepatitis B Surface Ag w/Reflex Confirmation (11/10/2024 3:00 AM EDT) Only the most recent of3 resultswithin the time period is included. Hep B Surface Antigen Negative Negative [facility] 11/10/2024 3:00 AM EDT 11/11/2024 1:31 PM EDT us Jon Wang MD LAB BLOOD ORDERABLES Final Re sult Performing Organization Address [facility] Co de Phone Number [facility] [address] [place] [address] * BUN/CREATININE RATIO (11/10/2024 3:00 AM EDT) Only the most recent of3 resultswithin the time period is included. [facility] BUN/Creatinine Ratio 8.1 <=23.0 [facility] 11/10/2024 3:00 AM EDT 11/11/2024 1:31 PM EDT us Jon Wang MD LAB [id number] SOLICITED RESULTS Final Result Performing Organization Address [facility] de Phone Number [facility] [address] [place] [address] * (ABNORMAL) TSAT (11/10/2024 3:00 AM EDT) Only the most recent of3 resultswithin the time period is included. [facility] Iron 54 50 - 170 ug/dL [facility] Transferrin 118(L) 250 - 380 mg/dL [facility] TIBC 165(L) 211 - 406 ug/dL [facility] Iron Saturation (TSat) 33 22 - 52 % [facility] 11/10/2024 3:00 AM EDT 11/11/2024 1:31 PM EDT us Jon Wang MD LAB BLOOD ORDERABLES Final Re sult Performing Organization Address [facility] de Phone Number [facility] [address] [place] [address] * (ABNORMAL) CBC and Differential (11/10/2024 3:00 AM EDT) Only the most recent of3 resultswithin the time period is included. [facility] DIFFERENTIAL MANUAL, 2 Not Indicated [facility] [...] sult Performing Organization Address [facility] Co de Phone Number [facility] [address] [place] [address] * ALT (11/10/2024 3:00 AM EDT) Only the most recent of3 resultswithin the time period is included. ALT (SGPT) 11 10 - 49 U/L [facility] 11/10/2024 3:00 AM EDT 11/11/2024 1:31 PM EDT Jon Wang MD LAB BLOOD ORDERABLES Final Re sult Performing Organization Address [facility] Co de Phone Number [facility] [address] [place] [address] * AST (11/10/2024 3:00 AM EDT) Only the most recent of3 resultswithin the time period is included. AST (SGOT) 12 <34 U/L [facility] 11/10/2024 3:00 AM EDT 11/11/2024 1:31 PM EDT us Jon Wang MD LAB BLOOD ORDERABLES Final Re sult Performing Organization Address [facility] de Phone Number [facility] [address] [place] [address] * (ABNORMAL) Protein, total (11/10/2024 3:00 AM EDT) Only the most recent of3 resultswithin the time period is included. Total Protein 5.7(L) 6.4 - 8.9 g/dL [facility] 11/10/2024 3:00 AM EDT 11/11/2024 1:31 PM EDT us Jon Wang MD LAB BLOOD ORDERABLES Final Re sult Performing Organization Address [facility] de Phone Number [facility] [address] [place] [address] * (ABNORMAL) Alkaline phosphatase (11/10/2024 3:00 AM EDT) Only the most recent of3 resultswithin the time period is included. Alkaline Phosphatase 120(H) 46 - 116 U/L [facility] 11/10/2024 3:00 AM EDT 11/11/2024 1:31 PM EDT us Jon Wang MD LAB BLOOD ORDERABLES Final Re sult Performing Organization Address [facility] de Phone Number [facility] [address] [place] [address] * (ABNORMAL) PTH, Intact (11/10/2024 3:00 AM EDT) PTH, Intact 1,236(H) 160 - 721 pg/mL [facility] Comment: Suggested (KDIGO) ESRD maintenance range is two to nine times the upper normal limit (80.1 pg/mL) for the laboratory. 11/10/2024 3:00 AM EDT 11/11/2024 1:31 PM EDT us Jon Wang MD LAB BLOOD ORDERABLES Final Re sult Performing Organization Address [facility] de Phone Number [facility] [address] [place] [address] * Magnesium (11/10/2024 3:00 AM EDT) Only the most recent of3 resultswithin the time period is included. Magnesium 2.0 1.9 - 2.7 mg/dL [facility] 11/10/2024 3:00 AM EDT 11/11/2024 1:31 PM EDT Jon Wang MD LAB BLOOD ORDERABLES Final Re sult Performing Organization Address [facility] de Phone Number [facility] [address] [place] [address] * Lactate dehydrogenase (11/10/2024 3:00 AM EDT) Only the most recent of3 resultswithin the time period is included. LDH 166 120 - 246 U/L [facility] 11/10/2024 3:00 AM EDT 11/11/2024 1:31 PM EDT Jon Wang MD LAB BLOOD ORDERABLES Final Re sult Performing Organization Address [facility] de Phone Number [facility] [address] [place] [address] * Hemoglobin A1c (11/10/2024 3:00 AM EDT) Hemoglobin A1C 4.2 <5.7 % [facility] Comment: Methodology: Ion-exchange high-performance liquid chromatography (HPLC) Normal: <5.7% Prediabetes: 5.7-6.4% Diabetes: >6.4% Diabetic Glucose Control Evaluation: Therapeutic action suggested at >8.0% ADA recommends a glycemic goal of <7.0% 11/10/2024 3:00 AM EDT 11/11/2024 1:39 PM EDT Jon Wang MD LAB BLOOD ORDERABLES Final Re sult Performing Organization Address [facility] de Phone Number [facility] [address] [place] [address] * (ABNORMAL) Glucose, random (11/10/2024 3:00 AM [...] Re sult Performing Organization Address [facility] de Phone Number [facility] [address] [place] [address] * (ABNORMAL) Ferritin (11/10/2024 3:00 AM EDT) Only the most recent of3 resultswithin the time period is included. Ferritin 599(H) 10 - 291 ng/mL [facility] 11/10/2024 3:00 AM EDT 11/11/2024 1:31 PM EDT us Jon Wang MD LAB BLOOD ORDERABLES Final Re sult Performing Organization Address [facility] de Phone Number [facility] [address] [place] [address] * (ABNORMAL) Creatinine, serum (11/10/2024 3:00 AM EDT) Only the most recent of3 resultswithin the time period is included. Creatinine 4.82(H) 0.55 - 1.02 mg/dL [facility] 11/10/2024 3:00 AM EDT 11/11/2024 1:31 PM EDT us Jon Wang MD LAB BLOOD ORDERABLES Final Re sult Performing Organization Address [facility] de Phone Number [facility] [address] [place] [address] * (ABNORMAL) Bilirubin, total (11/10/2024 3:00 AM EDT) Only the most recent of3 resultswithin the time period is included. Total Bilirubin <0.2(L) 0.3 - 1.2 mg/dL [facility] 11/10/2024 3:00 AM EDT 11/11/2024 1:31 PM EDT Jon Wang MD LAB BLOOD ORDERABLES Final Re sult Performing Organization Address [facility] Co de Phone Number [facility] [address] [place] [address] * (ABNORMAL) Lipid panel (11/10/2024 3:00 AM EDT) Cholesterol 164 mg/dL [facility] Comment: Optimal: <200 [...] sult Performing Organization Address [facility] Co de Phone Number [facility] [address] [place] [address] * Electrolyte panel (11/10/2024 3:00 AM EDT) [...] sult Performing Organization Address [facility] Co de Phone Number [facility] [address] [place] [address] * Phosphorus (10/04/2024 3:00 AM EDT) Phosphorus, Serum 3.2 2.5 - 5.0 mg/dL [facility] 10/04/2024 3:0 0 AM EDT 10/05/2024 11:59 AM EDT Jon Wang MD LAB BLOOD ORDERABLES Final Re sult Performing Organization Address [facility] de Phone Number [facility] [address] [place] [address] from Last 3 Months Insurance Medicare Medicaid [place] Medicaid [place] Medicaid [place] Care Teams Head Machine Feeder Relationship Specialty Start Date End Date Rozina Nicole MD [address] [place], [place] PCP - General 02/21/20
--- OUTSIDE RECORDS SUMMARY | 2024-12-11 09:58 | XMS_ITS | Clinical Summary ---
Author Organization [facility] Address [address] [place] [address] Phone Care Team Providers Care Electrician Rectifier Maintenance Name Role Phone Sam Lynch MD Primary Care Provider [phone] Allergies Active Allergy Reactions Criticality Noted Date [...] 32.9 in adult 11/26/2023 Acute kidney failure ([facility] V24) 04/26/2021 Benign essential hypertension 04/26/2021 Dependence on renal dialysis ([facility] V24) 04/26 Disorder of kidney and ureter, unspecified 04/26 ESRD on hemodialysis ([facility] V24, [facility] V28) 04/26/2021 Hypertensive heart and chron ic kidney disease with heart failure and stage 1 through stage 4 chronic kidney disease, or unspecified chronic kidney disease ([facility] V24, [facility] V28) 04/26/2021 Vitamin D deficiency 04/26/2021 Resolved Problems Problem Noted Date Diagnosed Date Resolved Date Upper GI bleed 06/30/2024 07/03/2024 Encounters Date Type Department Care Team Description 10/07/2024 Telephone Bariatric Surgery - [place] [address] [facility] [address] [place] [address] Gerson Rosen MD 09/21/2024 Telephone Bariatric Surgery - [place] [facility] [address] [place] [address] Grace Abarca PA from Last 3 Months Surgical History Surgery Date Site/Laterality Comments OTHER SURGICAL HISTORY PROCEDURE: DIALYSIS ACCESS SYSTEM LAPAROSCOPIC GASTRIC BANDING PROCEDURE: LAP ADJUSTABLE GASTRIC BAND HYSTERECTOMY PROCEDURE: HISTORICAL HYSTERECTOMY OTHER SURGICAL HISTORY PROCEDURE: COLONOSCOPY LESION REMOVAL OTHER SURGICAL HISTORY 06/13/2021 Left PROCEDURE: DE CRTJ ARVEN FSTL XCP DIR ARVEN ANAST [...] 06/21/2022, 03/20/2022 Depression Screening 02/11/2024 COVID-19 Vaccine (4 - season) 2024 01/19/2021, 07/05/2020, 05/31/2020 Influenza [...] Documents on File Type Date Recorded Patient Stitchdowns Toe Former Expl anation Health Care Decision (hx) 07/24/2023 [...] currently active code status orders. Care Teams Electrician Rectifier Maintenance Relationship Specialty Start Date End Date Sam Lynch MD [address] [place] [address] [address] [place] PCP - General 10/25/22
--- OUTSIDE RECORDS SUMMARY | 2024-12-11 09:58 | XMS_ITS | Encounter Summary ---
Author Organization [facility]. Address [address] [address] Phone Care Team Providers Care Assembler Fluorescent Lights Name Role Phone Rozina Nicole MD Primary Care Provider [phone] Encounter Details Date Type Department Care Team ([facility] st Contact Info) Description 11/29/2024 Treatment [facility]. [address] [address] Yamileth Varghese MD [address] [address] End stage renal disease; Dependence [...] Dialysis Note - Yamileth Varghese MD - 11/29/2024 12:00 AM EDT BASIC NOTE Patient: Meliza Perry : 1970 Note Author: YAMILETH VARGHESE MD Service Date: 11/29/2024 This patient was personally seen [id number] for a basic visit as part of routine monthly dialysis care for end stage renal disease. Attending Associate Professor Of Musicology: YAMILETH VARGHESE Dialysis Location: [facility] Schedule: Shift: ADEQUACY ASSESSMENT [...] by: YAMILETH VARGHESE MD on 12/10/2024 at 11:24:27 PM Transcribed by: YAMILETH VARGHESE MD on 12/10/2024 at 11:24:27 PM documented in this encounter Plan of Treatment Not on file documented as of this encounter Visit Diagnoses Diagnosis End stage renal disease Dependence on renal dialysis documented in this encounter Care Teams Assembler Fluorescent Lights Relationship Specialty Start Date End Date Rozina Nicole MD [address] [place], [place] PCP - General 02/21/20 documented as of this encounter
--- OUTSIDE RECORDS SUMMARY | 2024-12-11 09:58 | XMS_ITS | Encounter Summary ---
Author Organization [facility]. Address [address] [address] Phone Care Team Providers Care Audio Visual Collections Coordinator Name Role Phone Rozina Nicole MD Primary Care Provider [phone] Encounter Details Date Type Department Care Team ([facility] st Contact Info) Description 12/06/2024 Treatment [facility]. [address] [address] Yamileth Varghese MD [address] [address] End stage renal disease; Dependence [...] Dialysis Note - Yamileth Varghese MD - 12/06/2024 12:00 AM EDT BASIC NOTE Patient: Meliza Perry : 1970 Note Author: YAMILETH VARGHESE MD Service Date: 12/06/2024 This patient was personally seen [id number] for a basic visit as part of routine monthly dialysis care for end stage renal disease. Attending Sheet Rock Taper Helper: YAMILETH VARGHESE Dialysis Location: [facility] Schedule: Shift: ADEQUACY ASSESSMENT [...] by: YAMILETH VARGHESE MD on 12/10/2024 at 11:24:40 PM Transcribed by: YAMILETH VARGHESE MD on 12/10/2024 at 11:24:40 PM documented in this encounter Plan of Treatment Not on file documented as of this encounter Visit Diagnoses Diagnosis End stage renal disease Dependence on renal dialysis documented in this encounter Care Teams Audio Visual Collections Coordinator Relationship Specialty Start Date End Date Rozina Nicole MD [address] [place], [place] PCP - General 02/21/20 documented as of this encounter
--- OUTSIDE RECORDS SUMMARY | 2024-12-11 09:58 | XMS_ITS | Encounter Summary ---
Author Organization [facility] Address [address] [place] [address] Phone Care Team Providers Care Graphic Design Intern Name Role Phone Rozina Niocle MD Primary Care Provider [phone] Encounter Details Date Type Department Care Team (Late st Contact Info) Description 05/08/2020 Orders Only [facility] [address] [place] [address] Provider, MD Wendy Social History [...] on filedocumented in this encounter Care Teams Graphic Design Intern Relationship Specialty Start Date End Date Rozina Nicole MD [address] [place], [place] PCP - General 02/21/20 documented as of this encounter
--- OUTSIDE RECORDS SUMMARY | 2024-12-11 09:58 | XMS_ITS | Encounter Summary ---
Author Organization [facility] Address [address] [facility] [address] [place] [address] Phone Care Team Providers Care Reconciliation Specialist Name Role Phone Rozina Nicole MD Primary Care Provider [phone] Encounter Details Date Type Department Care Team (Late st Contact Info) Description 05/22/2020 Orders Only [facility] [address] [place] [address] Jon Wang MD [address] [facility] [address] [place] [phone] Stage 5 chronic kidney disease (HCC) Social [...] (HCC) documented in this encounter Care Teams Reconciliation Specialist Relationship Specialty Start Date End Date Rozina Nicole MD [address] [place] [address] [address] [place] PCP - General 02/21/20 documented as of this encounter
--- OUTSIDE RECORDS SUMMARY | 2024-12-11 09:58 | XMS_ITS | Encounter Summary ---
Author Organization [facility] Address [address] [facility] [address] [place] [address] Phone Care Team Providers Care Field Marketer Name Role Phone Rozina Nicole MD Primary Care Provider [phone] Encounter Details Date Type Department Care Team ([facility] st Contact Info) Description 05/15/2020 Orders Only [facility] [address] [place] [address] Jon Wang MD [address] [facility] [address] [place] [phone] Stage 5 chronic kidney disease (HCC) Social [...] (HCC) documented in this encounter Care Teams Field Marketer Relationship Specialty Start Date End Date Rozina Nicole MD [address] [place] [address] [address] [place] PCP - General 02/21/20 documented as of this encounter
--- OUTSIDE RECORDS SUMMARY | 2024-12-11 09:58 | XMS_ITS | Clinical Summary ---
Author Organization [facility] Address [address] [facility] [address] [place] [phone] Phone Care Team Providers Care Senior Java Ui Developer Name Role Phone Rozina Nicole MD Primary [...] Devices Not on file Insurance [place] [address] [address] [place] [address] [place] [address] [place] [address] [place] [address] [place] [address] [place] [address] [place] [address] [place] [address] [place] [address] ACO Care Teams Senior Java Ui Developer Relationship Specialty Start Date End Date Rozina Nicole MD [address] [place] [address] PCP - General 06/26/18 Additional Source Comments The information contained in this document represents components of the legal health record. It is not the complete legal health record.[facility]
--- OUTSIDE RECORDS SUMMARY | 2024-12-11 09:58 | XMS_ITS | Encounter Summary ---
Author Organization [facility] Address [address] [facility] [address] [place] [address] Phone Care Team Providers Care Edi Programmer Analyst Name Role Phone Rozina Nicole MD Primary Care Provider [phone] Reason for Visit * Reason Onset Date Comments Med Refill 11/23/2020 Encounter Details Date Type Department Care Team (Late st Contact Info) Description 11/23/2020 Refill [facility] [address] [facility] [address] [place] [phone] Nkechi Salvador, ALEX [address] [facility] [address] [place] [address] Social History Tobacco Use Types [...] on filedocumented in this encounter Care Teams Edi Programmer Analyst Relationship Specialty Start Date End Date Rozina Nicole MD [address] [place], [place] PCP - General 02/21/20 documented as of this encounter
--- OUTSIDE RECORDS SUMMARY | 2024-12-11 09:58 | XMS_ITS | Encounter Summary ---
Author Organization [facility] Address [address] [address] Phone Care Team Providers Care Natural Gas Engineer Name Role Phone Rozina Nicole MD Primary Care Provider [phone] Encounter Details Date Type Department Care Team ([facility] st Contact Info) Description 11/22/2024 Treatment [facility] [address] [phone] Yamileth Varghese MD [address] [address] End stage renal disease; Dependence [...] Dialysis Note - Yamileth Varghese MD - 11/22/2024 12:00 AM EDT Patient: Meliza Perry : 1970 Note Type: Dialysis Rounds-Comp Service Date: 11/22/2024 This patient was personally seen [id number] for a complete visit as part of routine monthly dialysis care for end stage renal disease. Attending Parer: YAMILETH VARGHESE [facility] Schedule: Shift: 1 OVERVIEW Patient is stable. HOME MEDICATIONS Medications reviewed. BP AND FLUID ASSESSMENT Acceptable blood pressure. ADEQUACY ASSESSMENT Kt/V, Natural Log 1.22 (11/22/24) 1.16 (11/10/24) 1.25 (10/25/24) UREA REDUCTION RATIO (%) 69 (11/22/24) 64 (11/10/24) 67 (10/25/24) BUN 35 (11/22/24) 39 (11/10/24) 24 (10/25/24) BUN Post Dialysis 11 (11/22/24) 14 (11/10/24) 8 (10/25/24) Creatinine 4.82 (11/10/24) 4.75 (10/20/24) 6.26 (09/17/24) Bicarbonate (CO2) 23 (11/10/24) 25 (10/20/24) 20 (09/17/24) Sodium 136 (11/10/24) 134 (10/20/24) 128 (09/17/24) Target not met - prescription change discussed with staff and patient. ANEMIA ASSESSMENT Hgb 9.2 (12/08/24) 9.2 (12/03/24) 9.5 (12/01/24) Iron Saturation (TSat) 33 (11/10/24) 63 (10/20/24) 20 (09/17/24) Ferritin 599 (11/10/24) 1,296 (10/20/24) 622 (09/17/24) Iron 54 (11/10/24) 93 (10/20/24) 41 (09/17/24) TIBC 165 (11/10/24) 147 (10/20/24) 200 (09/17/24) MCV 94.5 (11/10/24) 93.6 (10/20/24) 97.3 (09/17/24) Platelets 298 (11/10/24) 339 (10/20/24) 298 (09/17/24) Anemia targets not met. HARDEEP adjusted per protocol. BMM ASSESSMENT Calcium, Adjusted Total 8.9 11/10/24 [...] (SGOT) 12 (11/10/24) 39 (10/20/24) 13 (09/17/24) COMMENTS: 09/27/24 cont freq hosp w GI sxms requiring hosp 10/25/24 doing ok today but cont GI issues ADDITIONAL COMMENT COMMENTS: 07/07/24 doing better now, re ent hosp [facility] for [facility] flare 07/12/24: same issues w [...] 12/06 no new issues Signed by: YAMILETH VARGHSEE MD on 12/10/2024 at 11:24:17 PM Transcribed by: YAMILETH VARGHESE MD on 12/10/2024 at 11:24:17 PM documented in this encounter Plan of Treatment Not on file documented as of this encounter Visit Diagnoses Diagnosis End stage renal disease Dependence on renal dialysis documented in this encounter Care Teams Natural Gas Engineer Relationship Specialty Start Date End Date Rozina Nicole MD [address] [facility] [address] [place], [place] PCP - General 02/21/20 documented as of this encounter
[2024-12-11 10:35] LABS: MANUAL DIFF FLAG NO
[2024-12-11 10:37] LABS: Hematocrit 37.0 % (37.0-47.0); Hemoglobin 12.0 g/dl (12.0-16.0); Imm Gran Abs Auto 0.06 X10*3/uL (0.00-0.03); Imm Gran Pct Auto 0.4 % (0.0-0.4); Lymphocytes Absolute Auto 1.0 X10*3/uL (1.2-4.9); Mean Corpuscular HGB Conc 32.4 g/dl (31.0-35.0); Mean Corpuscular Hemoglobin 29.8 pg (27.0-33.0); Mean Corpuscular Volume 91.8 fL (80.0-98.0); NRBC Abs Auto 0.000 X10*3/uL (0.0-0.012); NRBC Pct Auto 0.0 /100WBC (0.0-0.2); Platelet Count 287 X10*3/uL (160-400); Red Blood Count 4.03 X10*6/uL (4.20-5.50); White Blood Count 14.2 X10*3/uL (4.8-10.8)
[2024-12-11 10:39] LABS: OBS1 POSITIVE (NEGATIVE)
[2024-12-11 10:40] LABS: OBS Int Ctl Valid YES
[2024-12-11 10:44] LABS: INTERNATIONAL NORM RATIO 1.1 (0.9-1.1); Prothrombin Time 12.3 SEC (10.9-12.4)
[2024-12-11 11:01] LABS: Alanine Aminotransferase 8 U/L (0-31); Albumin Level 4.2 g/dL (3.5-5.0); Alkaline Phosphatase 151 U/L (39-117); Anion Gap 16 (12-20); Aspartate Amino Transferase 25 U/L (5-31); Blood Urea Nitrogen 21 mg/dL (9-16); Calcium 10.2 mg/dL (8.4-10.2); Carbon Dioxide 29 mmol/L (22-29); Chloride 98 mmol/L (96-108); Creatinine Clr Calc Pharmacy 17.7; Estimated Glomerular Filt Rate 15; Potassium 4.5 mmol/L (3.3-5.1); Sodium 138 mmol/L (135-145); Total Protein 7.2 g/dL (6.5-8.0)
[2024-12-11 11:03] VITALS: BP 178/88; PULSE 96; RESP 18; O2SAT 92
[2024-12-11 13:26] VITALS: BP 119/57; PULSE 93; RESP 18
[2024-12-11 14:27] VITALS: BP 135/66; PULSE 91; RESP 20; TEMP 36.4; O2SAT 99
[2024-12-11 15:10] VITALS: BP 135/66; PULSE 91; RESP 20; TEMP 36.4; O2SAT 99
== END 2024-12-11 15:11 | disposition home or self-care (01) ==
PROVIDERS: Nurse Practitioner Family; Emergency Provider Emergency Medicine Emergency Medical Services; PCP Internal Medicine
DX: K29.70 Gastritis, unspecified, without bleeding (principal); R11.2 Nausea with vomiting, unspecified; R19.7 Diarrhea, unspecified; R94.31 Abnormal electrocardiogram [ECG] [EKG]; I10 Essential (primary) hypertension; F33.1 Major depressive disorder, recurrent, moderate; M54.50 Low back pain, unspecified; Z79.899 Other long term (current) drug therapy; Z98.84 Bariatric surgery status; Z87.891 Personal history of nicotine dependence
CPT/HCPCS: 36415; 80048; 80076; 82272; 85025; 85610; 93005; 96361; 96374; 96375; 99284; J1308; J2270; J2405; J2470

== ENCOUNTER → 2024-12-11 09:49 | Outpatient (BNV) | payer MEDICARE, MEDICAID, SELFPAY | PROVIDERS: Emergency Provider Emergency Medicine Emergency Medical Services; PCP Internal Medicine; Visit Provider Internal Medicine | DX: R94.31 Abnormal electrocardiogram [ECG] [EKG] (principal); Z13.6 Encounter for screening for cardiovascular disorders; R11.10 Vomiting, unspecified | CPT/HCPCS: 93010 ==

== ENCOUNTER 2024-12-22 13:49 | Outpatient (AMB) | payer MEDICARE, MEDICAID, SELFPAY ==
--- NOTE | 2024-12-22 14:26 | A.OFFPC_ITS ---
Vital Signs 12/22/24 14:27 Height 5 ft 5 in Weight 127 lb 8 oz BMI 21.2 BP 122/64 Blood Pressure Location Rt brachial Position Sitting Pulse 87 Pulse Source Pulse Oximeter Temp 97.3 F Temp Source Temporal Artery Scan Pulse Oximetry (%) 98 Oxygen Delivery Method Room Air Intake Visit Reasons: follow up, needs to discuss referrals Intake Note: Patient is here to follow up on Referrals for dermatology due to hair loss and flaky. Requesting letter requesting more hours for ORCHESTRA DIRECTOR. Shank Inspector Required: No Supervisor Precision Optical Elements: Not Required per policy Accompanied by: Self / Same As Patient Allergies ibuprofen Allergy (Severe, Verified 12/22/24 15:02) Unknown nifedipine Allergy (Intermediate, Verified 12/22/24 15:02) hives, leg edema Medication List - Last Reconciled 12/22/24 by Rozina Lang MD acetaminophen (Mapap (acetaminophen)) 1,000 mg PO Q8H PRN citalopram 20 mg PO DAILY 90 days clotrimazole-betamethasone 1-0.05 % 1 appl topical DAILY PRN cyanocobalamin (vitamin B-12) 1,000 mcg PO DAILY docusate sodium 100 mg PO BID ferrous sulfate 325 mg PO DAILY fluticasone propionate 50 mcg/actuation 1 spray intranasal DAILY PRN gabapentin 400 mg PO BID 90 days meclizine 12.5 mg PO TID PRN melatonin 20 mg (2 x 10 mg) PO BEDTIME midodrine 5 mg PO TID misoprostol 200 mcg PO 5XD [id number]-ddd-frqh-FA-vit K 45 mg iron- 800 mcg-120 mcg (Bariatric Multivitamins) 1 cap PO DAILY omeprazole 40 mg PO BID@0630,1630 ondansetron 4 mg PO Q8H PRN pantoprazole 40 mg PO BID parenteral amino acid 15% no.5 (Clinisol SF) 0.5 ea IV MOWEFR@0900 pyridoxine (vitamin B6) 50 mg PO DAILY 90 days sucralfate 10 mL PO BID thiamine HCl (vitamin B1) 100 mg PO DAILY 90 days vitamin A 2,400 mcg PO DAILY 90 days zinc acetate 100 mg PO DAILY Tobacco use date assessed: 12/22/24 Dental Screening Dental Screen Date: 11/24/24 HPI HPI Comments History of Present Illness Details The patient is a 54-year-old female presenting for follow-up and management of multiple chronic conditions. She has a history of anemia of chronic kidney disease, and while labs from a couple of months ago were poor, her most recent labs show a normal hemoglobin. She has chronic kidney disease stage 5 with a GFR of 15 on hemodialysis that is receive 3 times a week. The patient reports ongoing hair loss, which has been described as a type of alopecia. She has tried using vitamins and hair oils to manage this condition. She has also been told she has significant vitamin deficiency. Her history includes an ulcer, for which she uses Carafate to control flare-ups. She reports chronic low back pain and has been advised against using ibuprofen due to her kidney condition. She was also previously referred to a awning frame maker. 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 Lumbar back pain with radiculopathy affecting left lower extremity Physical exam (~02/14/21) Peritoneal dialysis catheter in place Polyarthralgia Dyslipidemia Family history of ovarian cancer Abnormal mammogram of right breast Angina pectoris syndrome Chest pain Constipation Nephrosclerosis Renal interstitial fibrosis Obesity (BMI 30-39.9) Back pain GERD (gastroesophageal reflux disease) History of headache HTN (hypertension) Surgical History History of sleeve gastrectomy S/P arteriovenous (AV) graft placement Fistula Hx of colonoscopy Hx of hysterectomy Hx of tubal ligation History of endometrial ablation Family History Father Asthma Mother Asthma Hypertension Ovarian cancer Maternal Grandfather Myocardial infarction Paternal Grandmother Stroke Social History Household Members: Children Household Members Other:: 30 year old special needs son Housing: Apartment Are you a primary daycare teacher to a significant other at home: No Do you presently have visiting nurse or other home services: No Alcohol intake: never Comment: low fall risk Patient Tobacco Use Status: Former Tobacco user Tobacco use type: Cigarette Cigarette Packs Per Day: 1 Cigarettes Per Day: 1 Years Smoked: 10+ e-Cigarette/Vaping Use: Never Used Second Hand Smoke Exposure: Yes Substance Use Type: Caffiene Advance Directives Date on File: 04/27/20 service: No Current occupational status: employed Cognitive needs: No Hearing needs: No Vision needs: Yes (reading glasses) Female Reproductive History Menstrual Age of Menarche: 10 Questionnaire Thrive Questionnaire Date Thrive assessed: 11/24/24 I am a: Patient What is your living situation today?: I have a steady place to live Within the past 12 months, did the food you bought not last and you didn't have the money to get more?: Never true Within the past 12 months, did you worry whether your food would run out before you got money to buy more?: Never true Do you have trouble paying for medicines?: No Do you have trouble getting transportation to medical appointments?: No Do you have trouble paying your heating and electricity bill?: No Do you have trouble taking care of your child, family member or friend?: No Do you have trouble with day-to-day activities such as bathing, preparing meals, shopping, managing finances, etc.?: Yes Are you currently unemployed and looking for a job?: I choose not to answer this question Are you interested in more education?: No Please select the resources that you would like help with: Daily support Currently or been in a relationship where the following occur: No concerns reported THRIVE Score: 0 JULIA-7 AMB Questionnaire JULIA-7 Date JULIA - 7 assessed: 06/11/24 Source: Developed by Drs. Brandan Schmitz, Tricia Asher, Carlos Blue and colleagues, with an educational lore from [employer]. Review of Systems Const All systems reviewed & are unremarkable except as noted in HPI and below Card Denies chest pain at rest, Denies chest pain with activity, Denies edema, Denies irregular heart rhythm, Denies claudication, Denies orthopnea, Denies paroxysmal nocturnal dyspnea and Denies slow heart rate Physical exam (Primary Care) Vital Signs: Last Vital Signs Temp 97.3 F 12/22/24 14:27 Pulse 87 12/22/24 14:27 BP 122/64 12/22/24 14:27 Pulse Ox 98 12/22/24 14:27 Oxygen Delivery Method Room Air 12/22/24 14:27 BMI result Body Mass Index 21.2 Tobacco/Smoking Status: Tobacco use Status Tobacco use date assessed 12/22/24 12/22/24 14:43 Patient Tobacco Use Status Former Tobacco user 12/22/24 14:43 Tobacco use type Cigarette 12/22/24 14:43 e-Cigarette/Vaping Use Never Used 12/22/24 14:43 Thrive Assessment: Date of Thrive Assessment Date Thrive assessed 11/24/24 12/22/24 14:43 Currently or been in a relationship where the following occur: No concerns reported Resp Effort & Inspection: normal respiratory effort Auscultation: clear to auscultation bilaterally Cardio Jugular venous distension: no JVD Rate: regular rate Rhythm: regular rhythm Heart sounds: S1 normal heart sound present and S2 normal heart sound present Extrem General: Yes full ROM Coding Level of Care Code Est Pt Level 4 (86563) Complex EM visit Add On G2211 Diagnoses Moderate major depression F32.1 Gastritis K29.70 ESRD on dialysis N18.6; Z99.2 Lumbar back pain with radiculopathy affecting left lower extremity M54.16 Hair loss L65.9 Anemia D64.9 Time Spent (min) 23 Assessment & Plan Assessment & Plan (1) Moderate major depression: Code(s): F32.1 - Major depressive disorder, single episode, moderate Category: Medical (2) Gastritis: Code(s): K29.70 - Gastritis, unspecified, without bleeding Category: Medical (3) ESRD on dialysis: Comment: [id number] Code(s): N18.6 - End stage renal disease; Z99.2 - Dependence on renal dialysis Category: Medical (4) Lumbar back pain with radiculopathy affecting left lower extremity: Code(s): M54.16 - Radiculopathy, lumbar region Category: Medical (5) Hair loss: Code(s): L65.9 - Nonscarring hair loss, unspecified Category: Medical (6) Anemia: Code(s): D64.9 - Anemia, unspecified Category: Medical Plan Plan 1. Anemia Of Chronic Kidney Disease The patient's anemia, associated with chronic kidney disease, is noted to be improving. Recent lab work shows her hemoglobin is now at a normal level, compared to poor results two months ago. 2. Alopecia The patient's hair loss is being investigated, with suspicion for an underlying thyroid condition or vitamin deficiency. A lab order for thyroid function tests was recommended to be done today. 3. Chronic Low Back Pain For management of chronic low back pain, the patient is advised to avoid ibuprofen due to her kidney disease. Coated Tylenol is recommended as a safe alternative for pain relief. 4. Peptic Ulcer Disease The patient will continue to manage her ulcer with Carafate to control flare- ups. 5. Chronic kidney disease stage 5 on hemodialysis Continue hemodialysis 3 times a week. Follow-up with nephrology. Orders: Orders Thyroid Stimulating Hormone Today L65.9 - Nonscarring hair loss, unspecified Referrals 2 Dermatology Referral L65.9 - Nonscarring hair loss, unspecified Medications: New acetaminophen-codeine 300-15 mg 1 tab PO DAILY PRN 20 tabs 0RF pain 30 days M54.16 - Radiculopathy, lumbar region
[2024-12-22 14:27] VITALS: BP 122/64; PULSE 87; TEMP 36.3; O2SAT 98; BMI 21.2
--- OUTSIDE RECORDS SUMMARY | 2024-12-22 17:02 | XMS_ITS | Clinical Summary ---
Author Organization [address] [facility] Address [address] [place] [address] Phone Care Team Providers Care Transportation Engineering Technician Name Role Phone Sam Lynch MD [...] 5 Active pantoprazole (PROTONIX) 40 mg EC tabletIndicatio ns:Marginal ulcer Take 1 tablet (40 mg total) by mouth 1 (one) time each day before breakfast. Do not crush, chew, or split. 30 each 2 5 01/12/20 25 Active ondansetron (ZOFRAN) 4 mg tabletIndicatio ns:Hx of obesity,Bariatr ic surgery status,Marginal ulcer TAKE 1 TABLET BY MOUTH EVERY 8 HOURS IF NEEDED FOR NAUSEA OR VOMITING. 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 V24) 04/26/2021 Benign essential hypertension 04/26/2021 Dependence on renal dialysis ([facility] V24) 04/26 Disorder of kidney and ureter, unspecified 04/26 ESRD on hemodialysis ([facility] V24, 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 V24, [facility] V28) 04/26/2021 Vitamin D deficiency 04/26/2021 Resolved Problems Problem Noted Date Diagnosed Date Resolved Date Upper GI bleed 06/30/2024 07/03/2024 Encounters Date Type Department Care Team Description 10/07/2024 Telephone Bariatric Surgery [address] [phone] Gerson Rosen MD 09/21/2024 Telephone Bariatric Surgery [address] [address] Grace Abarca PA from Last 3 Months Surgical History Surgery Date Site/Laterality Comments OTHER SURGICAL HISTORY PROCEDURE: DIALYSIS ACCESS SYSTEM LAPAROSCOPIC GASTRIC BANDING PROCEDURE: LAP ADJUSTABLE GASTRIC BAND HYSTERECTOMY PROCEDURE: HISTORICAL HYSTERECTOMY OTHER SURGICAL HISTORY PROCEDURE: COLONOSCOPY LESION REMOVAL OTHER SURGICAL HISTORY 06/13/2021 Left PROCEDURE: PA CRTJ ARVEN FSTL XCP DIR ARVEN ANAST [...] Documents on File Type Date Recorded Patient Home Appliance Technician Expl anation Health Care Decision (hx) 07/24/2023 [...] currently active code status orders. Care Teams Transportation Engineering Technician Relationship Specialty Start Date End Date Sam Lynch MD [address] [place] [address] [address] [place], [place] PCP - General 10/25/22
--- OUTSIDE RECORDS SUMMARY | 2024-12-22 17:03 | XMS_ITS | Encounter Summary ---
Author Organization [facility] Address [address] [facility] [address] [place] [address] Phone Care Team Providers Care Category Director Name Role Phone Rozina Nicole MD Primary Care Provider [phone] Reason for Visit * Reason Onset Date Comments Med Refill 11/23/2020 Encounter Details Date Type Department Care Team (Late st Contact Info) Description 11/23/2020 Refill [facility] [address] [facility] [address] [place] [phone] Nkechi Salvador, ALEX [address] [facility] [address] [place] [address] Social History Tobacco Use Types Packs/Day Years Used Date Smoking Tobacco: Former Cigarettes 0.5 Q uit: 10/31/2018 Smokeless Tobacco: Never Comments:Smoking [...] on filedocumented in this encounter Care Teams Category Director Relationship Specialty Start Date End Date Rozina Nicole MD [address] [place], [place] PCP - General 02/21/20 documented as of this encounter
--- OUTSIDE RECORDS SUMMARY | 2024-12-22 17:03 | XMS_ITS | Clinical Summary ---
Author Organization [facility] Address [address] [place] [address] Care Team Providers Care In Home Sales Representative Name Role Phone Rozina Nicole MD Primary Care Provider [phone] Jon Wang MD Unavailable [phone] Allergies No known active allergies Medications [...] Description 10/13/2024 8:31 PM EDT Anesthesia Event [facility] [address] [place] [address] Enmanuel Fisher MD 10/13/2024 8:00 PM EDT - 10/13/2024 9:51 PM EDT Surgery [facility] [address] [place] [address] David Harrell MD LAPAROSCOPY DIAGNOSTIC, LYSIS OF ADHESIONS 10/11/2024 12:06 PM EDT Anesthesia Event [facility] Gastroenterology Division [address] [place] [address], [place] [address] Irving Oliver DO Boucher, Sarah J, FLORIST 10/11/2024 11:40 AM EDT - 10/11/2024 12:19 PM EDT Surgery [facility] G[facility] [address] [place] [address], [place] [address] Kristopher Kramer MD ENDOSCOPY UPPER 10/11/2024 1:59 AM EDT - 10/19/2024 4:00 PM EDT Hospital Encounter [facility] [address] [place] [address] Aniket Chand III, Roberta Gutiérrez MD Elajami, [...] Exposure: Past Tobacco Cessation:Counseling Given: Not Answered [facility] Utilities Answer Date Recorded In the past 12 months has [employer], oil, or water [employer] threatened to shut off services in your [...] any time in the past 12 [facility], were you homeless or living in a chcf (including now)? No 10/11/2024 Comments Unknown Sex [...] period is included. Pathologist [facility] White Blood Cell Count 4.4 4.0 - 11.0 Thou/uL 10/18/2024 8:09 AM [facility] Platelet Count 275 150 - 450 Thou/uL 10/18/2024 8:09 AM [facility] Hemoglobin 8.2(L) 11.7 - 15.7 g/dL 10/18/2024 8:09 AM [facility] Hematocrit 25.4(L) 35.0 - 47.0 % 10/18/2024 8:09 AM [facility] Red Blood Cell Count 2.74(L) 4.00 - 5.40 Mil/uL 10/18/2024 8:09 AM [facility] MCV 93 80 - 100 fL 10/18/2024 8:09 AM [facility] MCH 29.9 27.0 - 31.0 pg 10/18/2024 8:09 AM [facility] MCHC 32.3 30.0 - 36.0 g/dL 10/18/2024 8:09 AM [facility] RDW 17.2(H) 11.5 - 14.5 % 10/18/2024 8:09 AM [facility] MPV 9.0 7.5 - 12.5 fL 10/18/2024 8:09 AM [facility] Neutrophils Auto 55.0 % 10/19/19 8:09 AM [facility] Immature Granulocytes 0.5 % 10/18/2024 8:09 AM [facility] Lymphocytes Auto 29.9 % 10/19/19 8:09 AM [facility] Monocytes Auto 9.4 % 10/18/2024 8:09 AM [facility] Eosinophils Auto 4.3 % 10/19/19 8:09 AM [facility] Basophils Auto 0.9 % 10/18/2024 8:09 AM [facility] Abs Neutrophils Auto 2.41 2.00 - 7.50 Thou/uL 10/18/2024 8:09 AM [facility] Abs Immature Granulocytes 0.02 0.00 - 0.10 Thou/uL 10/18/2024 8:09 AM [facility] Abs Lymphocytes Auto 1.31(L) 1.50 - 4.50 Thou/uL 10/18/2024 8:09 AM [facility] Abs Monocytes Auto 0.41 0.20 - 1.50 Thou/uL 10/18/2024 8:09 AM [facility] Abs Eosinophils Auto 0.19 0.00 - 0.70 Thou/uL 10/18/2024 8:09 AM [facility] Abs Basophils Auto 0.04 0.00 - 0.20 Thou/uL 10/18/2024 8:09 AM [facility] Blood Blood specimen / Unknown 10/18/2024 7:19 AM EDT 10/18/2024 7:55 AM EDT us Arina Amaya MD LAB BLOOD ORDERABLES Final Result [address] [address], [address] [address] * (ABNORMAL) Basic Metabolic Panel (10/18/2024 7:19 AM EDT) Only the most recent of9 resultswithin the time period is included. Glucose 87 65 - 99 mg/dL 10/18/2024 8:29 AM [facility] Comment:Fasting: <100 mg/dL, Non-Fasting: <200 mg/dL (ADA 2004) Blood Urea Nitrogen (BUN) 13 8 - 21 mg/dL 10/18/2024 8:29 AM [facility] Creatinine 4.8(H) 0.4 - 1.1 mg/dL 10/18/2024 8:29 AM [facility] eGFR 10(L) >59 10/18/2024 8:29 AM [facility] Comment:CKD-EPI (2020) in mL /min/1.73 sq meters. Sodium 137 136 - 145 mmol/L 10/18/2024 8:29 AM [facility] Potassium 3.6 3.4 - 5.3 mmol/L 10/18/2024 8:29 AM [facility] Chloride 103 98 - 107 mmol/L 10/18/2024 8:29 AM [facility] CO2 26 22 - 33 mmol/L 10/18/2024 8:29 AM [facility] Anion Gap 8 7 - 17 10/18/2024 8:29 AM [facility] Calcium 8.9 8.7 - 10.5 mg/dL 10/18/2024 8:29 AM [facility] BUN/Creatinine Ratio 3(L) 10.0 - 25.0 Ratio 10/18/2024 8:29 AM [facility] Blood Blood specimen / Unknown 10/18/2024 7:19 AM EDT 10/18/2024 7:55 AM EDT us Arina Amaya MD LAB BLOOD ORDERABLES Final Result [address] [address], [address] [address] * Transfuse RBC's: (10/15/2024 9:14 PM EDT) [...] PM EDT [facility] Unit Number [id number] 10/15/2024 6:22 PM EDT [facility] [...] TEST ORDERABLES Final Result Performing Organization Address City/[facility] Co de Phone Number HOSPITAL LAB See Below [address] [address] * Prepare RBC's:Prepare in: Units; Number of [...] 4.0 - 11.0 Thou/uL 10/15/2024 8:55 AM [facility] Platelet Count 218 150 - 450 Thou/uL 10/15/2024 8:55 AM [facility] Hemoglobin 7.0(L) 11.7 - 15.7 g/dL 10/15/2024 8:55 AM [facility] Hematocrit 21.8(L) 35.0 - 47.0 % 10/15/2024 8:55 AM [facility] Red Blood Cell Count 2.25(L) 4.00 - 5.40 Mil/uL 10/15/2024 8:55 AM [facility] MCV 97 80 - 100 fL 10/15/2024 8:55 AM [facility] MCH 31.1(H) 27.0 - 31.0 pg 10/15/2024 8:55 AM [facility] MCHC 32.1 30.0 - 36.0 g/dL 10/15/2024 8:55 AM [facility] RDW 14.4 11.5 - 14.5 % 10/15/2024 8:55 AM [facility] MPV 9.2 7.5 - 12.5 fL 10/15/2024 8:55 AM [facility] Blood Blood specimen / Unknown 10/15/2024 7:57 AM EDT 10/15/2024 8:[address] Foss MD LAB BLOOD ORDERABLES Final Re sult [address] [address], [address] [address] * Phosphorus (10/15/2024 7:57 AM EDT) Only the most recent of2 resultswithin the time period is included. Phosphorus 3.8 2.7 - 4.5 mg/dL 10/15/2024 11:43 AM EDT [facility] 10/15/2024 7:57 AM EDT 10/15/2024 8:[address] Foss MD LAB BLOOD ORDERABLES Final Re sult Performing Organization Address City/[facility]/[place] [address], [place] [address] * Magnesium (10/15/2024 7:57 AM EDT) Only the most recent of3 resultswithin the time period is included. Magnesium 1.8 1.6 - 2.7 mg/dL 10/15/2024 10:04 AM EDT [facility] Blood Blood specimen / Unknown 10/15/2024 7:57 AM EDT 10/15/2024 8:[address] Foss MD LAB BLOOD ORDERABLES Final Re sult Performing Organization Address City/[facility]/[place] [address], [address] [address] * (ABNORMAL) TRANSFERRIN (10/14/2024 10:10 AM EDT) Transferrin 125(L) 200 - 360 mg/dL 10/14/2024 12:13 PM EDT [facility] Blood Blood specimen / Unknown 10/14/2024 10:10 AM EDT 10/14/2024 11:23 AM EDT David Harrell MD LAB BLOOD ORDERABLES Final R esult Performing Organization Address City/[facility]/ZIP Co de Phone Number [address] [address], [address] [address] * PREALBUMIN (10/14/2024 10:10 AM EDT) Prealbumin 24 20 - 40 mg/dL 10/14/2024 12:13 PM EDT [facility] Blood Blood specimen / Unknown 10/14/2024 10:10 AM EDT 10/14/2024 11:23 AM EDT us David Harrell MD LAB BLOOD ORDERABLES Final R esult Performing Organization Address [facility] [place] [address], [address] [address] * (ABNORMAL) ALBUMIN (10/14/2024 10:10 AM EDT) Albumin 3.1(L) 3.5 - 5.0 g/dL 10/14/2024 12:13 PM EDT [facility] Blood Blood specimen / Unknown 10/14/2024 10:10 AM EDT 10/14/2024 11:23 AM EDT us David Harrell MD LAB BLOOD ORDERABLES Final R esult Performing Organization Address [facility] [place] [address], [address] [address] * Nicotine, Cotinine, Serum (10/14/2024 5:50 AM EDT) Nicotine <2 ng/mL 10/19/2024 9:54 AM EDT [facility] Comment: (NOTE) Reference Ranges(ng/mL): Non-Smoker Active Tobacco User < or = to 4 2-10 Cotinine <2 ng/mL 10/19/2024 9:54 AM EDT [facility] Comment: (NOTE) Reference Ranges(ng/mL): Non-Smoker Active Tobacco User < or = to 8 16-145 This test was developed and its analytical performance characteristics have been determined by [facility] [place], [place]. It has not been cleared or approved by the U.S. Food and Drug Administration. This assay has been validated pursuant to the CLIA regulations and is used for clinical purposes. Blood Blood specimen / Unknown 10/14/2024 5:50 AM EDT 10/14/2024 6:22 AM EDT David Harrell MD LAB BLOOD ORDERABLES Final R esult [facility], [email or web address] [facility] [address] [address] [place], [place] , [facility], [place] [address] [facility] [address] [address] [place], [place] * ANES INTUBATION (10/13/2024 8:59 PM EDT) Jon Bey CRNA - 10/13/2024 8:59 PM EDT Jon House CRNA 10/13/2024 8:59 PM Anesthesia Procedure Note - intubation Patient Name: Meliza Perry : 1970 Patient location: [place] Procedure diagnosis: Anesthesia Performed by: Resident/FLORIST Preanesthetic Checklist . Patient's pre-procedure mental status: [...] no change with DL Enmanuel Fisher MD ID ANESTHESIA Final Result * CT Abdomen+pelvis w [...] [facility] [address] [place] [address], [place] * Hepatitis B Virus (HBV) Core Antibody Total (10/11/2024 3:01 PM EDT) Hepatitis B Core Antibody Total Nonreactive Nonreactive 10/12/2024 11:17 AM EDT [facility] Blood Blood specimen / Unknown 10/11/2024 3:01 PM EDT 10/11/2024 4:41 PM EDT Efrain Campos MD LAB BLOOD ORDERABLES Final Result Performing Organization Address City/[facility]/ZIP Co de Phone Number [facility] [address] [place] [address], [place] * Hepatitis B Virus (HBV) Surface Antibody (10/11/2024 3:01 PM EDT) Hepatitis B Surface Antibody Reactive (Immune) Reactive (Immune) 10/12/2024 11:17 AM EDT [facility] Blood Blood specimen / Unknown 10/11/2024 3:01 PM EDT 10/11/2024 4:41 PM EDT Efrain Campos MD LAB BLOOD ORDERABLES Final Result [facility] [address] [place] [address], [place] * POCT Glucose, Fingerstick (10/11/2024 1:21 [...] ORDERABLES Jennifer l Result Performing Organization Address [facility]/[place] [address], [place] [address] * ABO Confirmation (10/11/2024 2:24 AM EDT) ABO/Rh O POSITIVE 10/11/2024 3:26 AM EDT [facility] Blood Blood specimen / Unknown 10/11/2024 2:24 AM EDT 10/11/2024 2:51 AM EDT us Aniket Chand III, DO BLOOD BANK TEST ORDERABLE S Final Result Performing Organization Address City/[facility] [place] [address], [place] [address] * (ABNORMAL) Hepatic function panel (10/11/2024 2:24 [...] DO LAB BLOOD ORDERABLES Jennifer l Result [facility] [address] [place] [address], [address] [address] from Last [address] [facility] MEDICARE PART A & B [employer] MEDICARE PART A & B [facility] MEDIC[place] PART A & [place] [id number] Advance Directives * Full Code (Latest Code Status on File) Date Activated Date Inactivated Comments 10/11/2024 5:25 AM Care Teams In Home Sales Representative Relationship Specialty Start Date End Date Rozina Nicole MD [address] [place] [address] PCP - General Family Medicine 10/11/24 Jon Wang MD [address] [facility] [address] [place] [address] Physician Internal Medicine 10/11/24
--- OUTSIDE RECORDS SUMMARY | 2024-12-22 17:03 | XMS_ITS | Encounter Summary ---
Author Organization [facility] Address [address] [address] Phone Care Team Providers Care Ornamental Iron Worker Helper Name Role Phone Rozina Nicole MD Primary Care Provider [phone] Encounter Details Date Type Department Care Team ([facility] st Contact Info) Description 12/20/2024 Treatment [facility] [address] [address] Yamileth Varghese MD [address] [address] End stage renal disease; Dependence [...] Dialysis Note - Yamileth Varghese MD - 12/20/2024 12:00 AM EST Patient: Meliza Perry : 1970 Note Type: Dialysis Rounds-Comp Service Date: 12/20/2024 This patient was personally seen [id number] for a complete visit as part of routine monthly dialysis care for end stage renal disease. Attending Engineer Station Mainline: YAMILETH VARGHESE Dialysis Location: [facility] Schedule: Shift: 1 OVERVIEW Patient is stable. HOME MEDICATIONS Medications reviewed. Current [facility] Outpatient Medications atorvastatin (LIPITOR) tablet Take 20 mg by mouth 1 (one) time each day Start Date: calcitriol (ROCALTROL) 0.25 MCG capsule Take 1 capsule (0.25 mcg total) by mouth 1 (one) time each day Start Date: 07/24/2022 carvedilol (COREG) 3.125 MG tablet ALMAS DOS (2) TABLETAS POR VIA ORAL DOS VECES AL IRAM Start Date: 01/29/2022 doxazosin (CARDURA) tablet Take 1 tablet by mouth at bed time Start Date: 11/02/2018 escitalopram (LEXAPRO) tablet Take 10 mg by mouth 1 (one) time each day Start Date: ferrous sulfate 325 (65 Fe) MG EC tablet TAKE 1 TABLET BY MOUTH TWICE DAILY *DO NOT CRUSH, CHEW, OR SPLIT* Start Date: 06/22/2021 furosemide (LASIX) 80 MG tablet Take 1 tablet (80 mg total) by mouth 1 (one) time each day Start Date: 01/24/2021 gabapentin (NEURONTIN) capsule Take 300 mg by mouth 3 (three) times a day Start Date: hydrALAZINE 25 MG tablet ALMAS CE TALBETA POR VIA ORAL 3 VECS AL IRAM *DESCONTINUAR CALCITROL, FERROUS SULFATE, FUROSIMIDE, Y LOKELMA* Start Date: 06/24/2022 meclizine (ANTIVERT) 25 MG tablet ALMAS 1 TABLETA POR VIA ORAL DOS VECES AL IRAM *EMERGENCY REFILL* Start Date: 07/15/2022 MELATONIN 5 MG PO CAPS Take 1 tablet by mouth 1 (one) time each day Start Date: 10/16/2020 midodrine (PROAMATINE) 5 MG tablet TAKE 1 TABLET BY MOUTH 3 TIMES A DAY Start Date: 09/16/2023 oxyCODONE-acetaminophen (PERCOCET) tablet 5-325 mg Start Date: 10/18/2020 senna (SENOKOT) tablet 8.6 mg Take 2 tablets by mouth 2 (two) times a day Start Date: sevelamer carbonate (RENVELA) 800 MG tablet ALMAS 2 TABLETAS POR VIA ORAL EN LA MANANA, 2 TABLETAS AL MEDIO IRMA, Y 2 TABLETAS EN LA TARDE. ALMAS CON COMIDAS Start Date: 07/04/2023 Current [facility] Allergies Allergen: NIFEDIPINE ADEQUACY ASSESSMENT Kt/V, Natural Log 1.29 (12/15/24) 1.22 (11/22/24) 1.16 (11/10/24) UREA REDUCTION RATIO (%) 69 (12/15/24) 69 (11/22/24) 64 (11/10/24) BUN 45 (12/15/24) 35 (11/22/24) 39 (11/10/24) BUN Post Dialysis 14 (12/15/24) 11 (11/22/24) 14 (11/10/24) Creatinine 5.89 (12/15/24) 4.82 (11/10/24) 4.75 (10/20/24) Bicarbonate (CO2) 23 (12/15/24) 23 (11/10/24) 25 (10/20/24) Sodium 138 (12/15/24) 136 (11/10/24) 134 (10/20/24) ANEMIA ASSESSMENT Hgb 10.5 (12/15/24) 9.2 (12/08/24) 9.2 (12/03/24) Iron Saturation (TSat) 16 (12/15/24) 33 (11/10/24) 63 (10/20/24) Ferritin 456 (12/15/24) 599 (11/10/24) 1,296 (10/20/24) Iron 29 (12/15/24) 54 (11/10/24) 93 (10/20/24) TIBC 178 (12/15/24) 165 (11/10/24) 147 (10/20/24) MCV 95.5 (12/15/24) 94.5 (11/10/24) 93.6 (10/20/24) Platelets 288 (12/15/24) 298 (11/10/24) 339 (10/20/24) Anemia targets met. BMM ASSESSMENT Calcium, Adjusted Total 9.3 12/15/24 8.9 11/10/24 9.6 10/20/24 Calcium 9.3 12/15/24 8.5 11/10/24 9.2 10/20/24 Phosphorus, Serum 5.1 12/15/24 3.6 11/10/24 2.9 10/20/24 Ca*PO4 47.4 12/15/24 30.6 11/10/24 26.7 10/20/24 PTH, Intact 701 12/15/24 1,236 11/10/24 510 08/16/24 Magnesium 2.5 12/15/24 2.0 11/10/24 2.2 10/20/24 Alkaline Phosphatase 149 12/15/24 120 11/10/24 123 10/20/24 Aluminum 4 02/20/24 PTH elevated. Phosphorus controlled. NUTRITION ASSESSMENT Albumin 4.1 12/15/24 3.5 11/10/24 3.5 10/20/24 Potassium 4.8 12/15/24 5.1 12/08/24 3.9 12/01/24 Glucose 76 12/15/24 103 11/10/24 126 10/20/24 Hemoglobin A1C 4.2 11/10/24 4.9 08/16/24 5.0 05/14/24 ADDITIONAL LABS White Blood Cells 4.7 (12/15/24) 4.0 (11/10/24) 7.4 (10/20/24) Cholesterol 164 (11/10/24) 121 (08/16/24) 155 (05/14/24) HDL 58 (11/10/24) 44 (08/16/24) 47 (05/14/24) LDL-Calc 86 (11/10/24) 59 (08/16/24) 82 (05/14/24) Triglycerides 99 (11/10/24) 88 (08/16/24) 130 (05/14/24) Hep B Surface Antibody ?1,000 (02/20/24) Uric Acid 9.6 (02/20/24) Chol/HDL Ratio 2.8 (11/10/24) 2.8 (08/16/24) 3.3 (05/14/24) ALT (SGPT) 10 (12/15/24) 11 (11/10/24) 19 (10/20/24) AST (SGOT) 13 (12/15/24) 12 (11/10/24) 39 (10/20/24) COMMENTS: 09/27/24 cont freq hosp w GI [...] ok 11/29/24 stable 12/06 no new issues 12/20/24 doing ok Signed by: YAMILETH VARGHESE MD on 12/20/2024 at 09:18:34 PM Transcribed by: YAMILETH VARGHESE MD on 12/20/2024 at 09:18:34 PM documented in this encounter Plan of Treatment Not on file documented as of this encounter Visit Diagnoses Diagnosis End stage renal disease Dependence on renal dialysis documented in this encounter Care Teams Ornamental Iron Worker Helper Relationship Specialty Start Date End Date Rozina Nicole MD [address] [place], [place] PCP - General 02/21/20 documented as of this encounter
--- OUTSIDE RECORDS SUMMARY | 2024-12-22 17:03 | XMS_ITS | Clinical Summary ---
Author Organization [facility] Address [address] [facility] [address] [place] [address] Phone Care Team Providers Care Superintendent Container Terminal Name Role Phone Rozina Nicole MD Primary [...] Devices Not on file Insurance [place] [address] [place] [address] [place] [address] [place] [address] [place] [place] [address] [place] [address] [place] [address] [place] [address] [place] [place] [address] [place] [address] Care Teams Superintendent Container Terminal Relationship Specialty Start Date End Date Rozina Nicole MD [address] [place] [address] PCP - General 06/26/18 Additional Source Comments The information contained in this document represents components of the legal health record. It is not the complete legal health record.[facility]
--- OUTSIDE RECORDS SUMMARY | 2024-12-22 17:03 | XMS_ITS | Encounter Summary ---
Author Organization [facility] Address [address] [facility] [address] [facility] [address] [place] [address] Phone Care Team Providers Care Hand Mica Plate Layer Name Role Phone Rozina Nicole MD Primary Care Provider [phone] Encounter Details Date Type Department Care Team (Late st Contact Info) Description 05/15/2020 Orders Only [facility] [address] [place] [address] Jon Wang MD [address] [facility] [address] [place] [id number] Stage 5 chronic kidney disease (HCC) Social History Tobacco Use Types Packs/Day Years Used Date Smoking Tobacco: Former Cigarettes 0.5 Q uit: 10/31/2018 Comments:Smoking History Inf o:Every [...] (HCC) documented in this encounter Care Teams Hand Mica Plate Layer Relationship Specialty Start Date End Date Rozina Nicole MD [address] [place], [place] PCP - General 02/21/20 documented as of this encounter
--- OUTSIDE RECORDS SUMMARY | 2024-12-22 17:03 | XMS_ITS | Clinical Summary ---
Author Organization [facility] Address [address] [place] [address] [place] [address] Phone Care Team Providers Care Medical Insurance Coding Specialist Name Role Phone Rozina Nicole MD Primary Care Provider [phone] Allergies Active Allergy Reactions Criticality Noted Date [...] ureter 05/02/2020 05/02/2020 Hypertensive heart disease w [facility] heart failure 05/02/2020 09/07/2020 Encounters Date Type Department Care Team Description 12/20/2024 Treatment [facility] [address] [facility] [address] [place] [phone] Jon Wang MD End stage renal disease; Dependence on renal dialysis 12/10/2024 Treatment [facility] [address] [facility] [address] [place] [phone] Jon Wang MD End stage renal disease; Dependence on renal dialysis 12/06/2024 Treatment [facility] [address] [phone] Jon Wang MD End stage renal disease; Dependence on renal dialysis 11/29/2024 Treatment [facility] [address] [phone] Jon Wang MD End stage renal disease; Dependence on renal dialysis 11/22/2024 Treatment [facility] [address] [phone] Jon Wang MD End stage renal disease; Dependence on renal dialysis 11/05/2024 Treatment [facility] [address] [phone] Jon Wang MD End stage renal disease; Dependence on renal dialysis 10/29/2024 Treatment [facility] [address] [phone] Jon Wang MD End stage renal disease; Dependence on renal dialysis 10/25/2024 Treatment [facility] [address] [phone] Jon Wang MD End stage renal disease; Dependence on renal dialysis 10/08/2024 Treatment [facility] [address] [phone] Jon Wang MD End stage renal disease; Dependence on renal dialysis 10/08/2024 Orders Only [facility] [address] [phone] Jon Wang MD 09/27/2024 Treatment [facility] [address] [phone] Jon Wang MD End stage renal disease; [...] Date/Time Associated Diagnosis Comments LIH (HC) Routine 12/20/2024 3:00 AM EST POTASSIUM Routine 12/20/2024 3:00 AM EST HEPATITIS B SURFACE ANTIGEN W/REFL CONFIRM Routine 12/15/2024 3:00 AM EST TRANSFERRIN SATURATION Routine 3:00 AM EST PROTEIN, TOTAL, SERUM Routine 12/15/2024 3:00 AM EST ELECTROLYTE PANEL Routine 12/15/2024 3:0 0 AM EST MAGNESIUM Routine 12/15/2024 3:00 AM EST LIH (HC) Routine 12/15/2024 3:00 AM EST GLUCOSE, RANDOM Routine 12/15/2024 3:00 AM EST LACTATE DEHYDROGENASE Routine 12/15/2024 3:00 AM EST CREATININE, SERUM Routine 12/15/2024 3:0 0 AM EST BILIRUBIN, TOTAL Routine 12/15/2024 3:00 AM EST BUN/CREATININE RATIO Routine 12/15/2024 3:00 AM EST AST Routine 12/15/2024 3:00 AM EST ALKALINE PHOSPHATASE Routine 12/15/2024 3:00 AM EST CALCIUM PHOSPHORUS PRODUCT, ADJUSTED (HC) Routine 12/15/2024 3:00 AM EST ALT Routine 12/15/2024 3:00 AM EST FERRITIN Routine 12/15/2024 3:00 AM EST PTH, INTACT Routine 12/15/2024 3:00 AM EST KT/V NATURAL LOG, URR (HC) Routine 12/15/2024 3:00 AM EST CBC AND DIFFERENTIAL Routine 12/15/2024 3:00 AM EST LIH (HC) Routine 12/08/2024 3:00 AM EDT [...] BLOOD Routine 11/24/2024 3:00 AM EDT LIH (HC) Routine 11/22/2024 3:00 AM EDT POTASSIUM Routine [...] URR (HC) Routine 10/01/2024 3:00 AM EDT from Last 3 Months Results * LIH (12/20/2024 3:00 AM EST) Only the most recent of15 resultswithin the time period is included. Pathologist [facility] [place] Lipemia Normal Normal [facility] Icterus Normal Normal [facility] Hemolysis Normal Normal [facility] 12/20/2024 3:00 AM EST 12/21/2024 3:21 PM EST us Jon Wang MD LAB [id number] SOLICITED RESULTS Final Result Performing Organization Address [facility] Co de Phone Number APS [facility] [address] [place] [address] * Potassium (12/20/2024 3:00 AM EST) Only the most recent of8 resultswithin the time period is included. Pathologist [facility] [place] Potassium 4.6 3.4 - 5.0 mEq/L [facility] 12/20/2024 3:00 AM EST 12/21/2024 3:21 PM EST us Jon Wang MD LAB BLOOD ORDERABLES Final Re sult Performing Organization Address [facility] de Phone Number [facility]PS [facility] [address] [place] [address] * (ABNORMAL) Kt/V Natural Log, URR (12/15/2024 3:00 AM EST) Only the most recent of7 resultswithin the time period is included. Pathologist [facility] [place] Treatment Time 184 min [facility] Pre-Weight, lb 62.0 kg [facility] Post-Weight, lb 61.1 kg [facility] Ultrafiltration Rate 5 <=13 mL/kg/hr [facility] Comment: Recommend achieving Ultrafiltration Rate (UFR) <=10 mL/kg/hr References: Terrell GARCIA et al. Kidney Int. 2010; 79(2):250-257 BUN 45(H) 7 - 25 mg/dL [facility] BUN Post Dialysis 14 7 - 25 mg/dL [facility] UREA REDUCTION RATIO (%) 69 >=65 % [facility] Kt/V Natural Log 1.29 >=1.2 [facility] 12/15/2024 3:00 AM EST 12/16/2024 12:09 PM EST us Jon Wang MD LAB [id number] SOLICITED RESULTS Final Result [facility] [address] [place] [address] * (ABNORMAL) Calcium Phosphorus Product, Adjusted (12/15/2024 3:00 AM EST) Only the most recent of3 resultswithin the time period is included. Pathologist [facility] [place] Albumin 4.1 3.6 - 5.4 g/dL [facility] Calcium 9.3 8.6 - 10.3 mg/dL [facility] Phosphorus, Serum 5.1(H) 2.5 - 5.0 mg/dL [facility] Ca*PO4 47.4 <55.0 mg2/dL2 [facility] Calcium, Adjusted Total 9.3 8.6 - 10.3 mg/dL [facility] CA*PO4 CORRCTD 47.4 <55.0 mg2/dL2 [facility] 12/15/2024 3:00 AM EST 12/16/2024 12:20 PM EST Jon Wang MD LAB [id number] SOLICITED RESULTS Final Result Performing Organization Address [facility] Co de Phone Number [facility]PS [facility] [address] [place] [address] * Hepatitis B Surface Ag w/Reflex Confirmation (12/15/2024 3:00 AM EST) Only the most recent of3 resultswithin the time period is included. Pathologist [facility] [place] Hep B Surface Antigen Negative Negative [facility] 12/15/2024 3:00 AM EST 12/16/2024 12:20 PM EST Jon Wang MD LAB BLOOD ORDERABLES Final Re sult Performing Organization Address [facility] Co de Phone Number [facility]PS [facility] [address] [place] [address] * BUN/CREATININE RATIO (12/15/2024 3:00 AM EST) Only the most recent of3 resultswithin the time period is included. Pathologist [facility] [place] BUN/Creatinine Ratio 7.6 <=23.0 [facility] 12/15/2024 3:00 AM EST 12/16/2024 12:20 PM EST Jon Wang MD LAB [id number] SOLICITED RESULTS Final Result Performing Organization Address [facility] de Phone Number [facility] [address] [place] [address] * (ABNORMAL) TSAT (12/15/2024 3:00 AM EST) Only the most recent of3 resultswithin the time period is included. Pathologist [facility] [place] Iron 29(L) 50 - 170 ug/dL [facility] Transferrin 127(L) 250 - 380 mg/dL [facility] TIBC 178(L) 211 - 406 ug/dL [facility] Iron Saturation (TSat) 16(L) 22 - 52 % [facility] 12/15/2024 3:00 AM EST 12/16/2024 12:20 PM EST Jon Wang MD LAB BLOOD ORDERABLES Final Re sult Performing Organization Address [facility] de Phone Number [facility]PS [facility] [address] [place] [address] * (ABNORMAL) CBC and Differential (12/15/2024 3:00 AM EST) Only the most recent of3 resultswithin the time period is included. DIFFERENTIAL MANUAL, 2 Not Indicated [facility] White Blood Cells 4.7 4.0 - 10.0 K/uL [facility] RBC 3.57(L) 3.93 - 5.22 M/uL [facility] Hgb 10.5(L) 11.2 - 15.7 g/dL [facility] Hemoglobin x 3 31.5(L) 33.6 - 47.1 g/dL [facility] Hematocrit 34.1 34.1 - 44.9 % [facility] MCV 95.5(H) 79.4 - 94.8 fL [facility] MCH 29.4 25.6 - 32.2 pg [facility] MCHC 30.8(L) 32.2 - 35.5 g/dL [facility] RDW 15.4(H) 11.7 - 14.4 % [facility] Platelets 288 182 - 369 K/uL [facility] MPV 10.3 9.2 - 12.8 fL [facility] Neutrophils Relative 50.8 34.0 - 71.1 % [facility] Lymphocytes Relative 32.2 19.3 - 51.7 % [facility] Monocytes 10.0 4.7 - 12.5 % [facility] Eosinophils Relative 5.3 0.7 - 5.8 % [facility] Basophils Relative 1.3(H) 0.1 - 1.2 % [facility] Immature Granulocytes 0.4 0.0 - 1.0 % [facility] 12/15/2024 3:00 AM EST 12/16/2024 12:08 PM EST Jon Wang MD LAB BLOOD ORDERABLES Final Re sult Performing Organization Address [facility] de Phone Number [facility] [address] [place] [address] * ALT (12/15/2024 3:00 AM EST) Only the most recent of3 resultswithin the time period is included. ALT (SGPT) 10 10 - 49 U/L [facility] 12/15/2024 3:00 AM EST 12/16/2024 12:20 PM EST Jon Wang MD LAB BLOOD ORDERABLES Final Re sult Performing Organization Address [facility] de Phone Number [facility]PS [facility] [address] [place] [address] * AST (12/15/2024 3:00 AM EST) Only the most recent of3 resultswithin the time period is included. AST (SGOT) 13 <34 U/L [facility] 12/15/2024 3:00 AM EST 12/16/2024 12:20 PM EST Jon Wang MD LAB BLOOD ORDERABLES Final Re sult Performing Organization Address [facility] Co de Phone Number [facility] [address] [place] [address] * Protein, total (12/15/2024 3:00 AM EST) Only the most recent of3 resultswithin the time period is included. Total Protein 6.6 6.4 - 8.9 g/dL [facility] 12/15/2024 3:00 AM EST 12/16/2024 12:20 PM EST Jon Wang MD LAB BLOOD ORDERABLES Final Re sult Performing Organization Address [facility] de Phone Number [facility] [address] [place] [address] * (ABNORMAL) Alkaline phosphatase (12/15/2024 3:00 AM EST) Only the most recent of3 resultswithin the time period is included. Alkaline Phosphatase 149(H) 46 - 116 U/L [facility] 12/15/2024 3:00 AM EST 12/16/2024 12:20 PM EST Jon Wang MD LAB BLOOD ORDERABLES Final Re sult Performing Organization Address [facility] de Phone Number [facility] [address] [place] [address] * PTH, Intact (12/15/2024 3:00 AM EST) Only the most recent of2 resultswithin the time period is included. PTH, Intact 701 160 - 721 pg/mL [facility] Comment: Suggested (KDIGO) ESRD maintenance range is two to nine times the upper normal limit (80.1 pg/mL) for the laboratory. 12/15/2024 3:00 AM EST 12/16/2024 12:20 PM EST us Jon Wang MD LAB BLOOD ORDERABLES Final Re sult Performing Organization Address [facility] de Phone Number [facility] [address] [place] [address] * Magnesium (12/15/2024 3:00 AM EST) Only the most recent of3 resultswithin the time period is included. Magnesium 2.5 1.9 - 2.7 mg/dL [facility] 12/15/2024 3:00 AM EST 12/16/2024 12:20 PM EST Jon Wang MD LAB BLOOD ORDERABLES Final Re sult Performing Organization Address [facility] de Phone Number [facility] [address] [place] [address] * Lactate dehydrogenase (12/15/2024 3:00 AM EST) Only the most recent of3 resultswithin the time period is included. Pathologist [facility] [place] LDH 165 120 - 246 U/L [facility] 12/15/2024 3:00 AM EST 12/16/2024 12:20 PM EST Jon Wang MD LAB BLOOD ORDERABLES Final Re sult Performing Organization Address [facility] de Phone Number [facility]PS [facility] [address] [place] [address] * Glucose, random (12/15/2024 3:00 AM EST) Only the most recent of3 resultswithin the time period is included. Pathologist [facility] [place] Glucose 76 70 - 99 mg/dL [facility] Comment: ADA guidelines outline the following fasting glucose ranges: Normal: <100 Prediabetes: 100-125 Diabetes: >125 12/15/2024 3:00 AM EST 12/16/2024 12:20 PM EST Jon Wang MD LAB BLOOD ORDERABLES Final Re sult Performing Organization Address [facility] de Phone Number [facility] [address] [place] [address] * (ABNORMAL) Ferritin (12/15/2024 3:00 AM EST) Only the most recent of3 resultswithin the time period is included. Ferritin 456(H) 10 - 291 ng/mL [facility] 12/15/2024 3:00 AM EST 12/16/2024 12:20 PM EST Jon Wang MD LAB BLOOD ORDERABLES Final Re sult Performing Organization Address [facility] de Phone Number [facility] [address] [place] [address] * (ABNORMAL) Creatinine, serum (12/15/2024 3:00 AM EST) Only the most recent of3 resultswithin the time period is included. Creatinine 5.89(H) 0.55 - 1.02 mg/dL [facility] 12/15/2024 3:00 AM EST 12/16/2024 12:20 PM EST Jon Wang MD LAB BLOOD ORDERABLES Final Re sult Performing Organization Address [facility] de Phone Number [facility] [address] [place] [address] * (ABNORMAL) Bilirubin, total (12/15/2024 3:00 AM EST) Only the most recent of3 resultswithin the time period is included. Total Bilirubin <0.2(L) 0.3 - 1.2 mg/dL [facility] 12/15/2024 3:00 AM EST 12/16/2024 12:20 PM EST Jon Wang MD LAB BLOOD ORDERABLES Final Re sult Performing Organization Address [facility] de Phone Number [facility] [address] [place] [address] * Electrolyte panel (12/15/2024 3:00 AM EST) Only the most recent of3 resultswithin the time period is included. Sodium 138 136 - 145 mEq/L [facility] Potassium 4.8 3.4 - 5.0 mEq/L [facility] Chloride 102 98 - 107 mEq/L [facility] Bicarbonate (CO2) 23 21 - 31 mEq/L [facility] Anion Gap 13 3 - 14 mEq/L [facility] 12/15/2024 3:00 AM EST 12/16/2024 12:20 PM EST Jon Wang MD LAB BLOOD ORDERABLES Final Re sult Performing Organization Address [facility] Co de Phone Number [facility] [address] [place] [address] * (ABNORMAL) Hemoglobin (12/08/2024 3:00 AM EDT) Only the most recent of4 resultswithin the time period is included. Hgb 9.2(L) 11.2 - 15.7 g/dL [facility] Hemoglobin x 3 27.6(L) 33.6 - 47.1 g/dL [facility] 12/08/2024 3:00 AM EDT 12/09/2024 12:30 PM EDT Jon Wang MD LAB BLOOD ORDERABLES Final Re sult Performing Organization Address [facility] de Phone Number [facility] [address] [place] [address] * (ABNORMAL) Hemoglobin and hematocrit (11/24/2024 3:00 AM EDT) Only the most recent of3 resultswithin the time period is included. Hgb 8.6(L) 11.2 - 15.7 g/dL [facility] Hematocrit 26.7(L) 34.1 - 44.9 % [facility] Hemoglobin x 3 25.8(L) 33.6 - 47.1 g/dL [facility] 11/24/2024 3:00 AM EDT 11/25/2024 1:16 PM EDT Jon Wang MD LAB BLOOD ORDERABLES Final Re sult Performing Organization Address [facility] Co de Phone Number [facility] [address] [place] [address] * Hemoglobin A1c (11/10/2024 3:00 AM EDT) Hemoglobin A1C 4.2 <5.7 % [facility] Comment: Methodology: Ion-exchange high-performance liquid chromatography (HPLC) Normal: <5.7% Prediabetes: 5.7-6.4% Diabetes: >6.4% Diabetic Glucose Control Evaluation: Therapeutic action suggested at >8.0% ADA recommends a glycemic goal of <7.0% 11/10/2024 3:00 AM EDT 11/11/2024 1:39 PM EDT Jon Wang MD LAB BLOOD ORDERABLES Final Re sult Performing Organization Address [facility] de Phone Number [facility] [address] [place] [address] * (ABNORMAL) Lipid panel (11/10/2024 3:00 AM [...] ORDERABLES Final Re sult Performing Organization Address [facility] de Phone Number [facility] [address] [place] [address] * Phosphorus (10/04/2024 3:00 AM EDT) Phosphorus, Serum 3.2 2.5 - 5.0 mg/dL [facility] 10/04/2024 3:00 AM EDT 10/05/2024 11:59 AM EDT us Jon Wang MD LAB BLOOD ORDERABLES Final Re sult [facility] [address] [place] [address] from Last 3 Months Insurance Medicare Medicaid [place] Care Teams Medical Insurance Coding Specialist Relationship Specialty Start Date End Date Rozina Nicole MD [address] [place] [address] PCP - General 02/21/20
--- OUTSIDE RECORDS SUMMARY | 2024-12-22 17:03 | XMS_ITS | Encounter Summary ---
Author Organization [facility] Address [address] [facility] [address] [place] [address] Phone Care Team Providers Care Stud Setter Name Role Phone Rozina Nicole MD Primary Care Provider [phone] Encounter Details Date Type Department Care Team (Late st Contact Info) Description 05/22/2020 Orders Only [facility] [address] [place] [address] Jon Wang MD [address] [facility] [address] [place] [phone] Stage 5 chronic kidney disease (HCC) Social [...] (HCC) documented in this encounter Care Teams Stud Setter Relationship Specialty Start Date End Date Rozina Nicole MD [address] [place], [place] PCP - General 02/21/20 documented as of this encounter
--- OUTSIDE RECORDS SUMMARY | 2024-12-22 17:03 | XMS_ITS | Encounter Summary ---
Author Organization [facility] Address [address] [place] [address] Phone Care Team Providers Care Hr Business Partner Consultant Name Role Phone Rozina Nicole MD Primary Care Provider Encounter Details Date Type Department Care Team (Late st Contact Info) Description 05/08/2020 Orders Only [facility] [place] [address] [place] [address] Provider, MD Wendy Social History [...] PM EDT documented as of this encounter Functional Status documented as of this encounter Plan of Treatment Not on file documented as of this encounter Procedures Procedure Name Priority Date/Time Associated Diagnosis Comments EXT RESULT ENTRY Routine 04/26/2020 documented in this encounter Results * EXT RESULT ENTRY (04/26/2020) us Historical Provider LAB BLOOD ORDERABLES Jennifer l Result documented in this encounter Visit Diagnoses Not on filedocumented in this encounter Care Teams Hr Business Partner Consultant Relationship Specialty Start Date End Date Rozina Nicole MD [address] [place], [place] PCP - General 02/21/20 documented as of this encounter
== END 2024-12-22 15:18 | disposition home or self-care (01) ==
LOC: HO.HMCH 13:50
PROVIDERS: PCP Internal Medicine; Visit Provider Internal Medicine
DX: F32.1 Major depressive disorder, single episode, moderate (principal); K29.70 Gastritis, unspecified, without bleeding; N18.6 End stage renal disease; Z99.2 Dependence on renal dialysis; M54.16 Radiculopathy, lumbar region; L65.9 Nonscarring hair loss, unspecified; D64.9 Anemia, unspecified

== ENCOUNTER → 2024-12-22 13:49 | Outpatient (BNVA) | payer MEDICARE, MEDICAID, SELFPAY | PROVIDERS: PCP Internal Medicine; Visit Provider Internal Medicine | DX: F32.1 Major depressive disorder, single episode, moderate (principal); K29.70 Gastritis, unspecified, without bleeding; N18.6 End stage renal disease; Z99.2 Dependence on renal dialysis; M54.16 Radiculopathy, lumbar region; D64.9 Anemia, unspecified; L65.9 Nonscarring hair loss, unspecified | CPT/HCPCS: 99212 ==

== ENCOUNTER 2024-12-25 12:16 | Inpatient (IN) | payer MEDICARE, MEDICAID, SELFPAY ==
--- NOTE | ~2024-12-25 | CT_ITS ---
CLINICAL HISTORY: abdominal pain Exam: Nonenhanced CT abdomen and pelvis with multiplanar reformats. Comparison: 11/13/2024. Findings: CT abdomen: Lung bases reveal minimal left base atelectasis. Liver is free of gross focal lesions and ductal dilatation. Gallbladder appears unremarkable. Spleen is unremarkable. Pancreas and adrenal glands appear unremarkable. Left kidney reveals a stable punctate nonobstructing calculus (4; 182). No other urolithiasis. No ureteral stones or hydroureteronephrosis. There is small amount of free fluid within the pelvis, relatively similar to prior exam. No abdominal ascites. No retroperitoneal masses or adenopathy. Abdominal aorta is normal caliber with mild calcific atherosclerosis. Bowel loops reveal re-identified remote postoperative changes related to apparent gastric sleeve procedure or perhaps partial gastrectomy. There appears to be a gastro enterostomy (6; 8-13), with likely surgical clips within the proximal jejunum (6; 9 -12). There appears to be some wall thickening of the small bowel loops within right hemiabdomen (for example, 6; 30 -16), suggesting nonspecific enteritis. No other significant bowel wall thickening or abnormal distention appreciated. The appendix appears unremarkable with similar-appearing small appendicolith (4; 452). CT pelvis: Similar small amount of free fluid within the pelvis. No pelvic masses or adenopathy. Uterus is surgically absent. Urinary bladder is free of gross filling defects. Osseous structures reveal no destructive osseous lesions. Impression: 1. There appears to be some wall thickening of the small bowel loops within right hemiabdomen, suggesting nonspecific enteritis. 2. Remote changes of what appears to be perhaps partial gastric resection with gastroenterostomy. 3. No other definable acute abnormalities or other CT explanation for reported history of pain. This document has been electronically signed by: Rolf Alanis MD on 12/25/2024 16:13:39
[2024-12-25 12:20] VITALS: BP 174/93; PULSE 92; O2SAT 98
[2024-12-25 12:26] VITALS: BP 165/82; PULSE 86; RESP 16; TEMP 36.8; O2SAT 96; BMI 20.3
--- NOTE | 2024-12-25 12:29 | ECG_ITS ---
Test Reason : ABD PAIN Blood Pressure : */* mmHG Vent. Rate : 85 BPM Atrial Rate : 85 BPM P-R Int : 126 ms QRS Dur : 80 ms QT Int : 418 ms P-R-T Axes : 58 52 39 degrees QTcB Int : 497 ms Normal sinus rhythm Nonspecific ST abnormality Prolonged QT Abnormal ECG When compared with ECG of 11-Dec-2024 10:56, No significant change was found Referred By: Generic ED Physician Electronically Signed By: CHARLY ODELL MD
[2024-12-25 12:48] LABS: MANUAL DIFF FLAG NO
[2024-12-25 12:52] LABS: Hematocrit 39.1 % (37.0-47.0); Hemoglobin 12.7 g/dl (12.0-16.0); Imm Gran Abs Auto 0.03 X10*3/uL (0.00-0.03); Imm Gran Pct Auto 0.4 % (0.0-0.4); Lymphocytes Absolute Auto 1.1 X10*3/uL (1.2-4.9); Mean Corpuscular HGB Conc 32.5 g/dl (31.0-35.0); Mean Corpuscular Hemoglobin 29.1 pg (27.0-33.0); Mean Corpuscular Volume 89.5 fL (80.0-98.0); NRBC Abs Auto 0.000 X10*3/uL (0.0-0.012); NRBC Pct Auto 0.0 /100WBC (0.0-0.2); Platelet Count 260 X10*3/uL (160-400); Red Blood Count 4.37 X10*6/uL (4.20-5.50); White Blood Count 7.2 X10*3/uL (4.8-10.8)
--- NOTE | 2024-12-25 12:56 | ED.NAVMDI ---
HPI - Nausea/Vomiting/Diarrhea General Chief complaint: Nausea/Vomiting/Diarrhea Stated complaint: bloody v , gi Time Seen by Provider: 12/25/24 12:50 Source: patient Mode of arrival: ambulatory Limitations: no limitations History of Present Illness HPI Narrative: This is a 54 years old female patient presented to the emergency department with a chief complaint nausea and vomiting for about 5 days. Patient has a history of end-stage kidney disease on hemodialysis she was dialyzed yesterday MD elicited complaint: nausea and vomiting Onset (ago): day(s) (5) Description of vomiting: watery Description of diarrhea: watery Associated nausea: Yes Quality: cramping Exacerbating factors: none Relieving factors: none Associated symptoms: denies other symptoms Related Data Home Medications ?Medication ?Instructions ?Recorded ?Confirmed ferrous sulfate 325 mg (65 mg 325 mg PO DAILY 05/11/20 12/22/24 iron) tablet,delayed release cyanocobalamin (vitamin B-12) 1,000 mcg PO DAILY 10/17/20 12/22/24 1,000 mcg tablet acetaminophen 500 mg capsule 1,000 mg PO Q8H PRN Pain 08/10/23 12/22/24 (Mapap (acetaminophen)) fluticasone propionate 50 1 spray intranasal DAILY PRN 08/10/23 12/22/24 mcg/actuation nasal Allergy Symptoms spray,suspension gtltatpx-klqfxzly-uvwr 45 mg-folic 1 cap PO DAILY 08/10/23 12/22/24 acid 800 mcg-vit K 120 mcg capsule (Bariatric Multivitamins) parenteral amino acid 15% no.5 15 0.5 ea IV MOWEFR@0900 08/10/23 12/22/24 % combination no.5 intravenous solution (Clinisol SF) zinc acetate 50 mg (zinc) capsule 100 mg PO DAILY 05/19/24 12/22/24 meclizine 12.5 mg tablet 12.5 mg PO TID PRN Nausea And 06/04/24 12/22/24 Vomiting clotrimazole-betamethasone 1 1 appl topical DAILY PRN Rash 09/20/24 12/22/24 %-0.05 % topical cream midodrine 5 mg tablet 5 mg PO TID 11/14/24 12/22/24 misoprostol 200 mcg tablet 200 mcg PO 5XD 11/14/24 12/22/24 omeprazole 40 mg capsule,delayed 40 mg PO BID@0630,1630 11/14/24 12/22/24 release pantoprazole 40 mg tablet,delayed 40 mg PO BID 12/03/24 12/22/24 release Previous Rx's ?Medication ?Instructions ?Recorded thiamine HCl (vitamin B1) 100 mg 100 mg PO DAILY 90 days #90 tabs 09/27/23 tablet vitamin A 2,400 mcg capsule 2,400 mcg PO DAILY 90 days #90 caps 02/05/24 citalopram 20 mg tablet 20 mg PO DAILY 90 days #90 tabs 09/08/24 melatonin 10 mg capsule 20 mg (2 x 10 mg) PO BEDTIME #90 09/20/24 caps pyridoxine (vitamin B6) 50 mg 50 mg PO DAILY 90 days #90 tabs 10/21/24 tablet gabapentin 400 mg capsule 400 mg PO BID 90 days #180 caps 11/10/24 ondansetron 4 mg disintegrating 4 mg PO Q8H PRN nausea and 11/10/24 tablet vomiting #10 tabs docusate sodium 100 mg capsule 100 mg PO BID #60 caps 11/25/24 acetaminophen 300 mg-codeine 15 mg 1 tab PO DAILY PRN pain 30 days 12/22/24 tablet #20 tabs sucralfate 100 mg/mL oral 10 ml PO BID #600 mL 12/22/24 suspension Allergies Allergy/AdvReac Type Severity Reaction Status Date / Time ibuprofen Allergy Severe Unknown Verified 12/25/24 12:28 nifedipine Allergy Intermediate hives, leg Verified 12/25/24 12:28 edema Review of Systems Review of Systems: Yes all other systems are reviewed and are negative Gastrointestinal: Gastrointestinal: Reports nausea and Reports vomiting PMF Past Medical History Attestation statement: The following information was validated with the patient. 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 Lumbar back pain with radiculopathy affecting left lower extremity Physical exam (~02/14/21) Peritoneal dialysis catheter in place Polyarthralgia Dyslipidemia Family history of ovarian cancer Abnormal mammogram of right breast Angina pectoris syndrome Chest pain Constipation Nephrosclerosis Renal interstitial fibrosis Obesity (BMI 30-39.9) Back pain GERD (gastroesophageal reflux disease) History of headache HTN (hypertension) Surgical History History of sleeve gastrectomy S/P arteriovenous (AV) graft placement Fistula Hx of colonoscopy Hx of hysterectomy Hx of tubal ligation History of endometrial ablation Family History Family History Father Asthma Mother Asthma Hypertension Ovarian cancer Maternal Grandfather Myocardial infarction Paternal Grandmother Stroke Social History Social History Household Members: Children Household Members Other:: 30 year old special needs son Housing: Apartment Are you a primary care director to a significant other at home: No Do you presently have visiting nurse or other home services: No Alcohol intake: never Comment: low fall risk Patient Tobacco Use Status: Former Tobacco user Tobacco use type: Cigarette Cigarette Packs Per Day: 1 Cigarettes Per Day: 1 Years Smoked: 10+ Smoked in Last 30 Days: No e-Cigarette/Vaping Use: Never Used Second Hand Smoke Exposure: Yes Use of substances other than those prescribed or required for medical reasons: No Substance Use Type: Caffiene Advance Directives: Yes Advance Directives on File: Yes Advance Directives Date on File: 04/27/20 Do you have a plan to hurt others: No Plan service: No Current occupational status: employed Cognitive needs: No Hearing needs: No Vision needs: Yes (reading glasses) Physical Exam Exam: Exam: Mild distress Vital Signs: Vital Signs: Last Vital Signs Temp 99.0 F 12/25/24 16:27 Pulse 94 12/25/24 18:07 Resp 16 12/25/24 18:07 BP 189/95 H 12/25/24 18:07 Pulse Ox 100 12/25/24 18:07 O2 Del Method Room Air 12/25/24 18:07 BMI result Body Mass Index 20.3 Const: General: cooperative Orientation/consciousness: patient oriented x3 Limitations: no limitations HEENT: Head: Yes normal to inspection General nose exam: Normal external nose present Face and sinus: Yes normal facial exam Mouth: Normal oral and palatal mucosa present Throat: Yes posterior oropharynx normal Neck: Neck: Yes normal visual inspection Chest: Chest palpation & inspection: normal inspection of the chest Cardio: Jugular venous distension: no JVD Rate: regular rate Rhythm: regular rhythm GI: Other: Soft nontender Inspection: Yes normal to inspection Palpation (GI): Soft to palpation, not firm and nontender Skin: General skin exam: no rashes or lesions noted and elasticity normal Neuro: General: patient oriented x3 Course Reevaluation(s) Reevaluation #1: off shift now signed out to Dr Hernandez ct pending Medications Administered Generic Name Dose Route Start Last Admin Trade Name Freq PRN Reason Stop Dose Admin Sodium Chloride 1,000 mls @ 100 mls/hr 12/25/24 16:00 12/25/24 17:43 Ns IVCONT Infused .Q10H GERARDO Infusion Discontinued Medications Generic Name Dose Route Start Last Admin Trade Name Freq PRN Reason Stop Dose Admin Al Hydroxide/Mg Hydroxide 30 ml 12/25/24 13:35 12/25/24 13:46 Magnesium Hydrox/Alum Hydrox 30 Ml Oral.Susp PO 12/25/24 13:36 30 ml ONCE ONE Administration Diphenhydramine HCl 12.5 mg 12/25/24 12:54 12/25/24 13:02 Diphenhydramine Hcl 50 Mg/Ml Vial IVPUSH 12/25/24 12:55 12.5 mg ONCE ONE Administration Sodium Chloride 1,000 mls @ 500 mls/hr 12/25/24 13:00 12/25/24 15:15 Ns IVCONT 12/25/24 14:59 Infused .Q2H GERARDO Infusion Lidocaine HCl 15 ml 12/25/24 13:38 12/25/24 13:46 Lidocaine Hcl Viscous 2 % 15 Ml Solution MUCOUS MEM 12/25/24 13:39 15 ml ONCE ONE Administration Metoclopramide HCl 10 mg 12/25/24 12:54 12/25/24 13:02 Metoclopramide Hcl 10 Mg/2 Ml Vial IVPUSH 12/25/24 12:55 10 mg ONCE ONE Administration Olanzapine 5 mg 12/25/24 17:49 12/25/24 18:07 Olanzapine 5 Mg Tablet PO 12/25/24 17:50 5 mg ONCE ONE Administration Ondansetron HCl 4 mg 12/25/24 13:43 12/25/24 13:46 Ondansetron Hcl 4 Mg/2 Ml Vial IVPUSH 12/25/24 13:44 4 mg ONCE ONE Administration Ondansetron HCl 4 mg 12/25/24 15:59 12/25/24 16:29 Ondansetron Hcl 4 Mg/2 Ml Vial IVPUSH 12/25/24 16:00 4 mg ONCE ONE Administration Oxycodone HCl 5 mg 12/25/24 16:18 12/25/24 16:29 Oxycodone Hcl Immed Release 5 Mg Tablet PO 12/25/24 16:19 5 mg ONCE ONE Administration Medical Decision Making Medical Decision Making [facility] Narrative: Patient presented to ED with complaint of nausea vomiting we will obtain labs 54-year-old female ESRD Friday dialysis received dialysis yesterday. Have having nausea vomiting that started today. Pending CT imaging at this time. Patient was signed out to me. CT imaging shows signs of enteritis. Patient does have history of GI bleed with significant anemia in the past. Patient did have some dark stool. We will send for OBS. IV Protonix given. Additional IV Zofran was given to the patient, IV Reglan was given to the patient before. He did receive some oxycodone with good relief earlier. However her pain is returning We will plan to give patient additional IV Dilaudid for further pain control. IV Compazine will be ordered as well. Given the intractable nausea vomiting and abdominal pain. We will plan to admit patient to the hospital. Differential Diagnosis Differential Diagnoses: The differential diagnosis associated with the presentation includes Gastroenteritis/SBO Lab Data [facility] Lab Attestation statement: I reviewed the patient's lab results. 12/25/24 12:41 12/25/24 13:17 Labs: Lab Results 12/25/24 12/25/24 12/25/24 Range/Units 12:41 13:17 16:33 WBC 7.2 (4.8-10.8) X10*3/uL RBC 4.37 (4.20-5.50) X10*6/uL Hgb 12.7 (12.0-16.0) g/dl Hct 39.1 (37.0-47.0) % MCV 89.5 (80.0-98.0) fL MCH 29.1 (27.0-33.0) pg MCHC 32.5 (31.0-35.0) g/dl RDW 14.7 (11.0-16.0) % Plt Count 260 (160-400) X10*3/uL MPV 9.8 (9.4-12.3) fL Immature Gran % (Auto) 0.4 (0.0-0.4) % Neut % (Auto) 76.7 H (45-73) % Lymph % (Auto) 15.6 L (20-40) % [place] % (Auto) 6.1 (2-11) % Eos % (Auto) 0.4 (0-4) % Baso % (Auto) 0.8 (0-2) % Lymph # (Auto) 1.1 L (1.2-4.9) X10*3/uL [place] # (Auto) 0.4 (0.1-1.2) X10*3/uL Eos # (Auto) 0.0 (0.0-0.4) X10*3/uL Baso # (Auto) 0.1 (0.0-0.2) X10*3/uL Abs Immat Gran (auto) 0.03 (0.00-0.03) X10*3/uL Absolute Neuts (auto) 5.5 (2.0-8.3) x10*3/uL Absolute Nucleated RBC 0.000 (0.0-0.012) X10*3/uL Nucleated RBC % (auto) 0.0 (0.0-0.2) /100WBC PT 13.1 (11.2-13.5) SEC INR 1.1 (0.9-1.1) Sodium 141 (135-145) mmol/L Potassium 3.6 (3.3-5.1) mmol/L Chloride 98 (96-108) mmol/L Carbon Dioxide 28 (22-29) mmol/L Anion Gap 19 (12-20) BUN 20 H (9-16) mg/dL Creatinine 4.29 H* (0.5-1.4) mg/dL Estim Creat Clear Calc 13.2 Estimated GFR 11 Random Glucose 103 (60-115) mg/dL Calcium 9.7 (8.4-10.2) mg/dL Magnesium 2.0 (1.6-2.6) mg/dL Total Bilirubin 0.3 (0.0-1.0) mg/dL AST 14 (5-31) U/L ALT < 6 (0-31) U/L Alkaline Phosphatase 127 H (39-117) U/L Troponin I High Sens 5.6 (<3.5-17.0) ng/L Total Protein 6.6 (6.5-8.0) g/dL Albumin 4.0 (3.5-5.0) g/dL Lipase 19 (8-78) U/L COVID-19 (VIPIN) Negative (Negative) COVID-19 Clin Com See Note Influenza Type A (ZAID) Negative (Negative) Influenza Type B (ZAID) Negative (Negative) Influenza A & B Note See Note Blood Type O Positive Antibody Screen NEGATIVE Independent Interpretation I performed an independent interpretation of an: CT Scan Radiology Impression Discussion of test interpretation with radiology: I have reviewed the radiologist's reading. Discharge Plan Discharge Clinical Impression: Enteritis, Nausea & vomiting Patient Disposition: Admitted As Inpatient
[2024-12-25 13:02] LABS: INTERNATIONAL NORM RATIO 1.1 (0.9-1.1); Prothrombin Time 13.1 SEC (11.2-13.5)
[2024-12-25 13:44] LABS: Troponin-I High Sensitivity 5.6 ng/L (<3.5-17.0)
[2024-12-25] MEDS: Lidocaine HCl Viscous 2 % 15 ML SOLUTION MUCOUS MEM (13:46)
[2024-12-25] MEDS: Magnesium Hydrox/Alum Hydrox 30 ML ORAL.SUSP PO (13:46)
[2024-12-25 13:48] LABS: Alanine Aminotransferase < 6 U/L (0-31); Albumin Level 4.0 g/dL (3.5-5.0); Alkaline Phosphatase 127 U/L (39-117); Anion Gap 19 (12-20); Aspartate Amino Transferase 14 U/L (5-31); Blood Urea Nitrogen 20 mg/dL (9-16); Calcium 9.7 mg/dL (8.4-10.2); Carbon Dioxide 28 mmol/L (22-29); Chloride 98 mmol/L (96-108); Creatinine Clr Calc Pharmacy 13.2; Estimated Glomerular Filt Rate 11; Lipase 19 U/L (8-78); Magnesium 2.0 mg/dL (1.6-2.6); Potassium 3.6 mmol/L (3.3-5.1); Sodium 141 mmol/L (135-145); Total Protein 6.6 g/dL (6.5-8.0)
[2024-12-25 15:19] VITALS: BP 203/101; PULSE 98; RESP 16; TEMP 37.2; O2SAT 98
[2024-12-25 16:27] VITALS: BP 156/76; PULSE 94; RESP 16; TEMP 37.2; O2SAT 97
[2024-12-25] MEDS: oxyCODONE HCl Immed Release 5 MG TABLET PO (16:29)
[2024-12-25 17:27] LABS: IDNOW Serial# 55D5AD1C
[2024-12-25 17:28] LABS: COVID-19 Test Negative (Negative); IDNOW Serial# 58CA691E; Influenza B2 Negative (Negative)
--- NOTE | 2024-12-25 17:43 | PC.NURSE ---
Per provider, pt to receive only additional 500 ccs of fluid, adjusted/infused in MAR
--- NOTE | 2024-12-25 17:45 | PC.NURSE ---
Pt continues to c/o pain/intermittent vomiting/tearful in bed. Provider Phillip mead.
[2024-12-25 18:07] VITALS: BP 189/95; PULSE 94; RESP 16; O2SAT 100
[2024-12-25 21:21] VITALS: RESP 12
--- NOTE | 2024-12-25 21:26 | PM.IMHP ---
History of Present Illness Date of Service: 12/25/24 Attending physician on admission: Claudia Luque Chief Complaint: Abdominal pain Meliza Perry is a 54 years old woman with past medical history significant for end-stage renal disease on hemodialysis (MWF), GI bleeding due to PUD, gastric sleeve surgery requiring multiple revisions including Sae-en-Y bypass, GERD, , dyslipidemia, mood disorder, fibromyalgia and chronic pain presents to the emergency department complaining of severe upper abdominal pain radiating to the chest th. at started last Friday. This morning she started to have coffee-ground vomiting. She had some events of dark diarrhea as well but her last bowel movement was 2 days ago. She denied shortness on breath, fever, cough, headache, palpitations or dizziness. She continues to make urine and denied any acute urinary symptoms. During last hospitalization in September of this year, she underwent a EGD due to upper GI bleeding. This study showed normal esophagus, gastritis and numerous anastomotic ulcer with 2 ulcers with high-risk stigmata and normal jejunum. She denied use of NSAIDs or blood thinners. She denied tobacco smoking, alcohol abuse or illicit drug use. In the ED, she was found to have normal vital signs. Blood workup showed no leukocytosis. Hemoglobin is 12.7 and hematocrit 39.1. There are no significant electrolyte imbalances. BUN is 20 and creatinine 4.26. LFTs are essentially normal, lipase is normal as well. Troponin is 5.6. Abdominal pelvis CT scan today showed some wall thickening of the small bowel loops within right hemiabdomen suggestive of nonspecific enteritis and remote changes of what happened to perhaps partial gastric resection with gastroenterostomy. ECG showed normal sinus rhythm, QTC is [address] abnormalities. ED tx: Reglan 10 mg IV, Benadryl 12.5 mg IV, NS 1 L bolus, Maalox 300 mL p.o., Zofran 8 mg IV total, Zyprexa 5 mg p.o., Dilaudid 0.5 mg IV, Compazine 5 mg IV, Protonix 80 mg IV, viscous lidocaine Review of Systems Review of Systems: All 12 systems were reviewed and normal except as noted in HPI. 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 Lumbar back pain with radiculopathy affecting left lower extremity Physical exam (~02/14/21) Peritoneal dialysis catheter in place Polyarthralgia Dyslipidemia Family history of ovarian cancer Abnormal mammogram of right breast Angina pectoris syndrome Chest pain Constipation Nephrosclerosis Renal interstitial fibrosis Obesity (BMI 30-39.9) Back pain GERD (gastroesophageal reflux disease) History of headache HTN (hypertension) Family History Father Asthma Mother Asthma Hypertension Ovarian cancer Maternal Grandfather Myocardial infarction Paternal Grandmother Stroke Surgical History History of sleeve gastrectomy S/P arteriovenous (AV) graft placement Fistula Hx of colonoscopy Hx of hysterectomy Hx of tubal ligation History of endometrial ablation Social History Household Members: Family Household Members Other:: 30 year old special needs son Housing: Apartment Are you a primary transitions rn care coordinator to a significant other at home: No Do you presently have visiting nurse or other home services: No Alcohol intake: never Comment: low fall risk Patient Tobacco Use Status: Former Tobacco user Tobacco use type: Cigarette Cigarette Packs Per Day: 1 Cigarettes Per Day: 1 Years Smoked: 10+ e-Cigarette/Vaping Use: Never Used Second Hand Smoke Exposure: Yes Substance Use Type: Caffiene Advance Directives Date on File: 04/27/20 service: No Current occupational status: employed Cognitive needs: No Hearing needs: No Vision needs: Yes (reading glasses) Meds Allergies Allergy/AdvReac Type Severity Reaction Status Date / Time ibuprofen Allergy Severe Unknown Verified 12/25/24 12:28 nifedipine Allergy Intermediate hives, leg Verified 12/25/24 12:28 edema Active Medications: Current Medications Hydromorphone HCl (Hydromorphone Hcl 1 Mg/Ml Syringe) 0.5 mg IVPUSH Q4H PRN; Protocol PRN Reason: Pain, Severe (Pain Scale 7-10) Sodium Chloride (Ns) 1,000 mls @ 100 mls/hr IVCONT .Q10H GERARDO Last Infusion: 12/25/24 17:43 Dose: Infused Sodium Chloride (Ns) 1,000 mls @ 60 mls/hr IVCONT .[id number] [facility] Stop: 12/26/24 14:09 Pantoprazole Sodium (Pantoprazole Sodium 40 Mg/10 Ml Vial) 40 mg IVPUSH BID@0630,1630 [facility] Prochlorperazine Edisylate (Prochlorperazine Edisylate 10 Mg/2 Ml Vial) 5 mg IVPUSH Q6H PRN PRN Reason: Nausea and Vomiting Sodium Chloride (0.9 % Sodium Chloride Flush 3 Ml Syringe) 3 ml IVFLUSH QSHIFT [facility] Home Medications ?Medication ?Instructions ?Recorded ?Confirmed ?Last Taken ?Type ferrous sulfate 325 mg (65 mg 325 mg PO DAILY 05/11/20 12/26/24 12/25/24 History iron) tablet,delayed release cyanocobalamin (vitamin B-12) 1,000 mcg PO DAILY 10/17/20 12/26/24 12/25/24 History 1,000 mcg tablet acetaminophen 500 mg capsule 1,000 mg PO Q8H PRN Pain 08/10/23 12/26/24 09/16/24 History (Mapap (acetaminophen)) fluticasone propionate 50 1 spray intranasal DAILY PRN 08/10/23 12/26/24 05/18/24 History mcg/actuation nasal Allergy Symptoms spray,suspension zjxgzvey-gnvlhznn-rqvo 45 mg-folic 1 cap PO DAILY 08/10/23 12/26/24 12/25/24 History acid 800 mcg-vit K 120 mcg capsule (Bariatric Multivitamins) parenteral amino acid 15% no.5 15 0.5 ea IV MOWEFR@0900 08/10/23 12/26/24 12/25/24 History % combination no.5 intravenous solution (Clinisol SF) zinc acetate 50 mg (zinc) capsule 100 mg PO DAILY 05/19/24 12/26/24 12/25/24 History meclizine 12.5 mg tablet 12.5 mg PO TID PRN Nausea And 06/04/24 12/26/24 06/04/24 History Vomiting clotrimazole-betamethasone 1 1 appl topical DAILY PRN Rash 09/20/24 12/26/24 Unknown History %-0.05 % topical cream midodrine 5 mg tablet 5 mg PO TID PRN Hypotension 11/14/24 12/26/24 Unknown History misoprostol 200 mcg tablet 200 mcg PO QID 11/14/24 12/26/24 12/25/24 History omeprazole 40 mg capsule,delayed 40 mg PO BID@0630,1630 11/14/24 12/26/24 12/25/24 History release pantoprazole 40 mg tablet,delayed 40 mg PO BID 12/03/24 12/26/24 12/25/24 History release Physical Exam Vital Signs and Narrative: Vital Signs: Last Vital Signs Temp 99.0 F 12/25/24 16:27 Pulse 94 12/25/24 18:07 Resp 12 12/25/24 21:21 BP 189/95 H 12/25/24 18:07 Pulse Ox 100 12/25/24 18:07 O2 Del Method Room Air 12/25/24 18:07 BMI result Body Mass Index 20.3 General: Alert, oriented. In acute distress due to pain. Well nourished and cooperative. Afebrile. HEENT: Head normocephalic, atraumatic. PER, EOMI. Sclerae anicteric, conjunctiva clear. Dry oral mucosa. Neck: Supple, no lymphadenopathy, or JVD. Heart: RRR, positive murmur, no rubs or gallops. Lungs: Clear to auscultation bilaterally. No wheezes, rales, or rhonchi. Normal respiratory effort. Abdomen: Soft, upper abdominal tenderness with guarding but no rebound, nondistended, increased bowel sounds. Extremities: No calf tenderness bilaterally, no swelling Musculoskeletal: Full range of motion. No joint swelling, deformity, or tenderness. Normal muscle tone and strength. Skin: Warm/Dry. No pallor. No jaundice. Neurologic: Alert & oriented x4. Moving all extremities spontaneously. Normal speech. Psychological: Normal mood and affect. Thought process coherent. Results Labs 12/26/24 06:20 12/26/24 06:20 Labs: Laboratory Results - last 24 hr 12/25/24 12/25/24 12/25/24 12:41 13:17 16:33 MCV 89.5 MCH 29.1 MCHC 32.5 RDW 14.7 Plt Count 260 MPV 9.8 Immature Gran % (Auto) 0.4 Neut % (Auto) 76.7 H Lymph % (Auto) 15.6 L [place] % (Auto) 6.1 Eos % (Auto) 0.4 Baso % (Auto) 0.8 Lymph # (Auto) 1.1 L [place] # (Auto) 0.4 Eos # (Auto) 0.0 Baso # (Auto) 0.1 Abs Immat Gran (auto) 0.03 Absolute Neuts (auto) 5.5 Absolute Nucleated RBC 0.000 Nucleated RBC % (auto) 0.0 PT 13.1 INR 1.1 Anion Gap 19 Estim Creat Clear Calc 13.2 Estimated GFR 11 Random Glucose 103 Calcium 9.7 Magnesium 2.0 Total Bilirubin 0.3 AST 14 ALT < 6 Alkaline Phosphatase 127 H Troponin I High Sens 5.6 Total Protein 6.6 Albumin 4.0 Lipase 19 COVID-19 (VIPIN) Negative COVID-19 Clin Com See Note Influenza Type A (ZAID) Negative Influenza Type B (ZAID) Negative Influenza A & B Note See Note Blood Type O Positive Antibody Screen NEGATIVE Assessment and Plan (1) Intractable abdominal pain: Status: Acute (2) Intractable nausea and vomiting: Status: Acute Plan Meliza Perry is a 54 y/o woman with a PMHx significant for GI bleeding due to PUD, GERD, gastric sleeve surgery requiring multiple revisions including Sae-en-Y bypass and SBO who presents with: Intractable upper abdominal pain associated with coffee-ground vomiting on nausea; possible secondary to severe gastritis/PUD/GERD and nonspecific enteritis. NPO. Gentle IV fluids due to underlying ESRD. Pain control with IV medications as well as antiemetic therapy. Continue PPI IV due to history of PUD. Check lactic acid stat. Continue to monitor H&H. ESRD on HD. No acidosis, hyperkalemia or fluid overload. Nephrology consult for inpatient hemodialysis. Fibromyalgia/mood disorder/chronic pain. Continue home meds when able. Code status: Full DVT prophylaxis: SCDs med rec pending Patient will need hospitalization for at least 2 midnights for intractable GI symptoms therapy with IV pain meds and antiemetics; due to her underlying chronic issues she will need close monitoring of blood workup and possible evaluation by subspecialty if appropriate. This documentation was generated using dictation software; minor spreading or b2b sales executive errors may be present. Quality Stroke Does the patient have a stroke diagnosis?: No VTE Prior VTE?: No VTE Risk Level:: Medical - moderate - high VTE Device Contraindication: N/A - Device Ordered VTE Drug Contraindication: Treatment Not Indicated
[2024-12-26] VITALS (9 sets, daily range): BP systolic 103–160; BP diastolic 54–83; PULSE 77–89; RESP 14–18; TEMP 36.6–37.3; O2SAT 95–99; BMI 20.7
--- NOTE | 2024-12-26 02:45 | PM.EVENT ---
Event Note Date of Service: 12/26/24 Event Note: Nursing requested alternative to melatonin as pt is NPO jessica. Reviewed pt's chart and found no obvious conflicts or contraindications and ordered 12.5 benadryl IV X1. Time Spent With Patient Time: Total time managing care of this patient today ____ minutes.
[2024-12-26 06:41] LABS: MANUAL DIFF FLAG NO
[2024-12-26 06:44] LABS: Hematocrit 31.2 % (37.0-47.0); Hemoglobin 9.9 g/dl (12.0-16.0); Imm Gran Abs Auto 0.01 X10*3/uL (0.00-0.03); Imm Gran Pct Auto 0.2 % (0.0-0.4); Lymphocytes Absolute Auto 1.3 X10*3/uL (1.2-4.9); Mean Corpuscular HGB Conc 31.7 g/dl (31.0-35.0); Mean Corpuscular Hemoglobin 29.1 pg (27.0-33.0); Mean Corpuscular Volume 91.8 fL (80.0-98.0); NRBC Abs Auto 0.000 X10*3/uL (0.0-0.012); NRBC Pct Auto 0.0 /100WBC (0.0-0.2); Platelet Count 202 X10*3/uL (160-400); Red Blood Count 3.40 X10*6/uL (4.20-5.50); White Blood Count 5.0 X10*3/uL (4.8-10.8)
[2024-12-26 07:49] LABS: Anion Gap 14 (12-20); Blood Urea Nitrogen 31 mg/dL (9-16); Calcium 9.1 mg/dL (8.4-10.2); Carbon Dioxide 27 mmol/L (22-29); Chloride 106 mmol/L (96-108); Creatinine Clr Calc Pharmacy 12.2; Estimated Glomerular Filt Rate 10; Magnesium 2.0 mg/dL (1.6-2.6); Potassium 3.5 mmol/L (3.3-5.1); Sodium 143 mmol/L (135-145)
--- NOTE | 2024-12-26 09:28 | PC.NURSE ---
Patient has a dialysis fistula in left upper arm covered with drsg ,positive for bruit and thrill
--- NOTE | 2024-12-26 11:14 | PHA.MEDREC ---
Pharmacy Consult ? Medication Reconciliation Pharmacy has completed the medication reconciliation. Spoke to patient (who has a medication list from provider's office) to confirm medication list. Patient verified she takes both omeprazole and pantoprazole twice a day, misoprostol 4 times a day and midodrine only as needed for hypotension. She gets Clinisol every friday, friday, friday (dialysis days). Last dose of medications was yesterday morning 12/25/24.
--- NOTE | 2024-12-26 11:19 | P.PNIM_ITS ---
Subjective Subjective Date of Service: 12/26/24 Interval History: nausea /vomiting Review of Systems feels nausea no new vomiting Review of Systems: Yes all other systems are reviewed and are negative Physical Exam 2 Exam: Exam: Appearance: Alert.? Oriented X3.?feels nauseated cvs: rrr, [id number]. res: clear to auscultation ,no rhonchii or wheezing abd: no rebound or guarding ,nt, bs present. ext pulses present , no cyanosis . neuro: axo3 , nonfocal. Vital Signs: Vital Signs: Last Vital Signs Temp 98.6 F 12/26/24 07:59 Pulse 86 12/26/24 07:59 Resp 15 12/26/24 07:59 BP 155/74 H 12/26/24 07:59 Pulse Ox 96 12/26/24 07:59 O2 Del Method Room Air 12/26/24 07:59 BMI result Body Mass Index 20.7 Objective Data Active Medications Docusate Sodium (Docusate Sodium 100 Mg Capsule) 100 mg PO BID [facility] Escitalopram Oxalate (Escitalopram Oxalate 10 Mg Tablet) 10 mg PO DAILY [facility] Gabapentin (Gabapentin 400 Mg Capsule) 400 mg PO BID [facility] Hydromorphone HCl (Hydromorphone Hcl 1 Mg/Ml Syringe) 0.5 mg IVPUSH Q4H PRN; Protocol PRN Reason: Pain, Severe (Pain Scale 7-10) Non-Formulary Medication (Parenteral Amino Acid 15% No.5 [Clinisol Sf 15 %]) 0.5 each IV MOWEFR@0900 [facility] Non-Formulary Medication (Vitamin A) 2,400 mcg PO DAILY [facility] Non-Formulary Medication (Zinc Acetate) 100 mg PO DAILY [facility] Omeprazole (Omeprazole 40 Mg Capsule.) 40 mg PO BID@0630,1630 [facility] Omeprazole (Omeprazole 20 Mg Capsule.) 20 mg PO BID@0630,1630 [facility] Ondansetron HCl (Ondansetron Hcl 4 Mg/2 Ml Vial) 4 mg IVPUSH Q6H PRN PRN Reason: Nausea and Vomiting Last Admin: 12/26/24 10:00 Dose: 4 mg Documented By: ARACELI Pantoprazole Sodium (Pantoprazole Sodium 40 Mg/10 Ml Vial) 40 mg IVPUSH BID@0630,1630 [facility] Last Admin: 12/26/24 05:52 Dose: 40 mg Documented By: GERSON Prochlorperazine Edisylate (Prochlorperazine Edisylate 10 Mg/2 Ml Vial) 5 mg IVPUSH Q6H PRN PRN Reason: Nausea and Vomiting Last Admin: 12/26/24 05:52 Dose: 5 mg Documented By: GERSON Pyridoxine HCl (Pyridoxine Hcl (Vitamin B6) 50 Mg Tablet) 50 mg PO DAILY [facility] Sodium Chloride (0.9 % Sodium Chloride Flush 3 Ml Syringe) 3 ml IVFLUSH QSHIFT [facility] Last Admin: 12/26/24 09:24 Dose: Not Given Documented By: ARACELI Non-Admin Reason: IV Running Sucralfate (Sucralfate Oral Suspension 1 Gm/10 Ml Oral.Susp) gm PO BID [facility] Thiamine HCl (Thiamine Hcl 100 Mg Tablet) 100 mg PO DAILY [facility] Labs 12/26/24 06:20 12/26/24 06:20 Labs: Laboratory Results - last 24 hr 12/25/24 12/25/24 12/25/24 12:41 13:17 16:33 MCV 89.5 MCH 29.1 MCHC 32.5 RDW 14.7 Plt Count 260 MPV 9.8 Immature Gran % (Auto) 0.4 Neut % (Auto) 76.7 H Lymph % (Auto) 15.6 L [place] % (Auto) 6.1 Eos % (Auto) 0.4 Baso % (Auto) 0.8 Lymph # (Auto) 1.1 L [place] # (Auto) 0.4 Eos # (Auto) 0.0 Baso # (Auto) 0.1 Abs Immat Gran (auto) 0.03 Absolute Neuts (auto) 5.5 Absolute Nucleated RBC 0.000 Nucleated RBC % (auto) 0.0 PT 13.1 INR 1.1 Anion Gap 19 Estim Creat Clear Calc 13.2 Estimated GFR 11 Random Glucose 103 Lactic Acid Calcium 9.7 Phosphorus Magnesium 2.0 Total Bilirubin 0.3 AST 14 ALT < 6 Alkaline Phosphatase 127 H Troponin I High Sens 5.6 Total Protein 6.6 Albumin 4.0 Lipase 19 COVID-19 (VIPIN) Negative COVID-19 Clin Com See Note Influenza Type A (ZAID) Negative Influenza Type B (ZAID) Negative Influenza A & B Note See Note Blood Type O Positive Antibody Screen NEGATIVE 12/25/24 12/26/24 22:04 06:20 MCV 91.8 MCH 29.1 MCHC 31.7 RDW 14.7 Plt Count 202 MPV 9.7 Immature Gran % (Auto) 0.2 Neut % (Auto) 62.2 Lymph % (Auto) 25.5 Moffat % (Auto) 9.7 Eos % (Auto) 1.4 Baso % (Auto) 1.0 Lymph # (Auto) 1.3 Moffat # (Auto) 0.5 Eos # (Auto) 0.1 Baso # (Auto) 0.1 Abs Immat Gran (auto) 0.01 Absolute Neuts (auto) 3.1 Absolute Nucleated RBC 0.000 Nucleated RBC % (auto) 0.0 PT INR Anion Gap 14 Estim Creat Clear Calc 12.2 Estimated GFR 10 Random Glucose 73 Lactic Acid 0.5 Calcium 9.1 D Phosphorus 3.4 Magnesium 2.0 Total Bilirubin AST ALT Alkaline Phosphatase Troponin I High Sens Total Protein Albumin Lipase COVID-19 (VIPIN) COVID-19 Clin Com Influenza Type A (ZAID) Influenza Type B (ZAID) Influenza A & B Note Blood Type Antibody Screen Assessment and Plan (1) Nausea & vomiting: Status: Acute Plan 54 y/o woman with a PMHx significant for GI bleeding due to PUD, GERD, gastric sleeve surgery requiring multiple revisions including Sae-en-Y bypass and SBO who presents with: Intractable upper abdominal pain associated with coffee-ground vomiting on nausea; possible secondary to severe gastritis/PUD/GERD and nonspecific enteritis. NPO. Gentle IV fluids due to underlying ESRD. Pain control with IV medications as well as antiemetic therapy. Continue PPI IV due to history of PUD. Check lactic acid stat. Continue to monitor H&H. ESRD on HD. No acidosis, hyperkalemia or fluid overload. Nephrology consult for inpatient hemodialysis. Fibromyalgia/mood disorder/chronic pain. Continue home meds when able. Code status: Full DVT prophylaxis: SCDs ongoing hospitalisation need :Intractable upper abdominal pain associated with coffee-ground vomiting on nausea-iv ppi, h/h monitering ,may need Gi workup if continue to have symptoms. Quality Stroke Does the patient have a stroke diagnosis?: No VTE Prior VTE?: No VTE Risk Level:: Medical - moderate - high VTE Device Contraindication: N/A - Device Ordered VTE Drug Contraindication: Treatment Not Indicated
[2024-12-26] MEDS: Sucralfate Oral Suspension 1 GM/10 ML ORAL.SUSP PO ×2 (12:08→20:55)
--- NOTE | 2024-12-26 12:59 | MHC.CM.PN ---
IMM delivered. Lives in an apartment w/ her son. Has a daily [employer] (her nephew) 4 hrs/day, 28 hrs/wk. Assists w/ ADL's. Ambulates w/ cane, also has a walker and rollator. [facility], 10 am chair time, sister [employer] transports. PCP Rozina Lang MD HCP on file and verified. DP: Home, ? new VNA, sister to transport. CM will continue to follow.
[2024-12-26] MEDS: 0.9 % Sodium Chloride Flush 3 ML SYRINGE IVFLUSH ×2 (15:40→20:56)
[2024-12-27 04:00] VITALS: BP 135/64; PULSE 84; RESP 16; TEMP 36.7; O2SAT 98
[2024-12-27 08:00] VITALS: BP 114/60; PULSE 86; RESP 18; TEMP 36.6; O2SAT 97
[2024-12-27] MEDS: Sucralfate Oral Suspension 1 GM/10 ML ORAL.SUSP PO (08:10)
[2024-12-27] MEDS: 0.9 % Sodium Chloride Flush 3 ML SYRINGE IVFLUSH (08:13)
--- NOTE | 2024-12-27 09:55 | MHC.CLN ---
CONSULT PATIENT WITH SIGNIFICANT WEIGHT LOSS FROM 2021 TO 2022. MOST RECENT WEIGHT HX X ONE YEAR SHOWS NO SIGNIFICANT WEIGHT CHANGE. DIET RX: CLEAR LIQUIDS. PATIENT WITH ESRD ON HD. HX GASTRIC SURGERY. MONITOR FOR DIET ADVANCEMENT.
--- NOTE | 2024-12-27 10:43 | PM.GICN ---
History of Present Illness Data of Consult Service Date: 09/21/24 Requesting physician: Beto Gonsales Primary Care Provider: Rozina Lang MD HPI Reason for consult: GIB 54 year old F with hx of end-stage renal disease on hemodialysis (MWF), GERD, hemorrhoids, diverticulosis, gastric sleeve surgery, s/p revision of gastric bypass at [facility] and essential hypertension who presented to the hospital for increased productive cough and coffee ground emesis. History was obtained from the patient, who reports having chills, increased cough with sputum production since last week. On Friday, she started developing mid epigastric burning pain with nausea and vomiting. She saw coffee-ground emesis due to her recent history of multiple hospitalizations for GI bleeding, she presented to the hospital promptly. Reports no further nausea and vomiting over the last 24 hours. CBC reviewed, initial hemoglobin was 12.7, which dropped to 9 yesterday however, a repeat today is again at 11.5. Suspect the hemoglobin from yesterday was likely erroneous. Patient reports adherence to PPI therapy. She does mentioned that she ran out of Carafate 2 weeks ago. She also does not report smoking, although [facility] has raised concerns over ongoing smoking. Pt has been seen numerous times by GI service. Last EGD was 09/22 with gastritis and [place] I and II ulcers. She then presented to the emergency room again 10/10 with acute severe GI bleeding with hemoglobin of 5.9. At that time, decision was made to transfer her to [facility] with Interventional Radiology capability. Notes reviewed from [facility] 10/13/2024. Intra-op patient was noted to have the anatomy of sleeve gastrectomy with stricture at the incisura with the Sae-en-Y gastrojejunostomy just proximal to the incisura. Patient also had multiple intra-abdominal adhesions that were lysed. Recommendation was made for revision of large pouch AFTER gastritis heals up. She was also seen by Dr Rodriguez [place] [facility] [place] and has persistent albeit improving gastritis and ulceration on most recent EGD 12/07/24. 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 Lumbar back pain with radiculopathy affecting left lower extremity Physical exam (~02/14/21) Peritoneal dialysis catheter in place Polyarthralgia Dyslipidemia Family history of ovarian cancer Abnormal mammogram of right breast Angina pectoris syndrome Chest pain Constipation Nephrosclerosis Renal interstitial fibrosis Obesity (BMI 30-39.9) Back pain GERD (gastroesophageal reflux disease) History of headache HTN (hypertension) Family History Family History Father Asthma Mother Asthma Hypertension Ovarian cancer Maternal Grandfather Myocardial infarction Paternal Grandmother Stroke Surgical History Surgical History History of sleeve gastrectomy S/P arteriovenous (AV) graft placement Fistula Hx of colonoscopy Hx of hysterectomy Hx of tubal ligation History of endometrial ablation Social History Social History Household Members: Family Household Members Other:: 30 year old special needs son Housing: Apartment Are you a primary care professionals to a significant other at home: No Do you presently have visiting nurse or other home services: No Alcohol intake: never Comment: low fall risk Patient Tobacco Use Status: Former Tobacco user Tobacco use type: Cigarette Cigarette Packs Per Day: 1 Cigarettes Per Day: 1 Years Smoked: 10+ e-Cigarette/Vaping Use: Never Used Second Hand Smoke Exposure: Yes Substance Use Type: Caffiene Advance Directives Date on File: 04/27/20 service: No Current occupational status: employed Cognitive needs: No Hearing needs: No Vision needs: Yes (reading glasses) Meds Allergies Allergy/AdvReac Type Severity Reaction Status Date / Time ibuprofen Allergy Severe Unknown Verified 12/25/24 12:28 nifedipine Allergy Intermediate hives, leg Verified 12/25/24 12:28 edema Active Medications: Current Medications Cyanocobalamin (Cyanocobalamin (Vitamin B-12) 1,000 Mcg Tablet) 1,000 mcg PO DAILY [facility] Last Admin: 12/27/24 08:09 Dose: 1,000 mcg Docusate Sodium (Docusate Sodium 100 Mg Capsule) 100 mg PO BID [facility] Last Admin: 12/27/24 08:09 Dose: 100 mg Escitalopram Oxalate (Escitalopram Oxalate 10 Mg Tablet) 10 mg PO DAILY [facility] Last Admin: 12/27/24 08:09 Dose: 10 mg Fluticasone Propionate (Fluticasone Propionate Nasal 16 Gm [place]) 1 spray NOSTRIL-B DAILY PRN PRN Reason: Allergy Symptoms Gabapentin (Gabapentin 400 Mg Capsule) 400 mg PO BID [facility] Last Admin: 12/27/24 08:09 Dose: 400 mg Hydromorphone HCl (Hydromorphone Hcl 1 Mg/Ml Syringe) 0.5 mg IVPUSH Q4H PRN; Protocol PRN Reason: Pain, Severe (Pain Scale 7-10) Last Admin: 12/27/24 09:45 Dose: 0.5 mg Meclizine HCl (Meclizine Hcl 12.5 Mg Tablet) 12.5 mg PO TID PRN PRN Reason: Nausea and Vomiting Melatonin (Melatonin 3 Mg Tablet) 18 mg PO BEDTIME [facility] Last Admin: 12/26/24 20:56 Dose: Not Given Midodrine (Midodrine Hcl 5 Mg Tablet) 5 mg PO TID PRN PRN Reason: Hypotension Misoprostol (Misoprostol 200 Mcg Tablet) 200 mcg PO QID [facility] Last Admin: 12/27/24 08:10 Dose: 200 mcg Multivitamins/Vitamin C (Multivitamin Tablet) 1 tab PO DAILY [facility] Last Admin: 12/27/24 08:09 Dose: 1 tab Ondansetron HCl (Ondansetron Hcl 4 Mg/2 Ml Vial) 4 mg IVPUSH Q6H PRN PRN Reason: Nausea and Vomiting Last Admin: 12/27/24 05:45 Dose: 4 mg Pantoprazole Sodium (Pantoprazole Sodium 40 Mg/10 Ml Vial) 40 mg IVPUSH BID@0630,1630 [facility] Last Admin: 12/27/24 05:45 Dose: 40 mg Prochlorperazine Edisylate (Prochlorperazine Edisylate 10 Mg/2 Ml Vial) 5 mg IVPUSH Q6H PRN PRN Reason: Nausea and Vomiting Last Admin: 12/26/24 05:52 Dose: 5 mg Pyridoxine HCl (Pyridoxine Hcl (Vitamin B6) 50 Mg Tablet) 50 mg PO DAILY [facility] Last Admin: 12/27/24 08:10 Dose: 50 mg Sodium Chloride (0.9 % Sodium Chloride Flush 3 Ml Syringe) 3 ml IVFLUSH QSHIFT [facility] Last Admin: 12/27/24 08:13 Dose: 3 ml Sucralfate (Sucralfate Oral Suspension 1 Gm/10 Ml Oral.Susp) 1 gm PO BID [facility] Last Admin: 12/27/24 08:10 Dose: 1 gm Thiamine HCl (Thiamine Hcl 100 Mg Tablet) 100 mg PO DAILY [facility] Last Admin: 12/27/24 08:09 Dose: 100 mg Home Medications ?Medication ?Instructions ?Recorded ?Confirmed ?Last Taken ?Type ferrous sulfate 325 mg (65 mg 325 mg PO DAILY 05/11/20 12/26/24 12/25/24 History iron) tablet,delayed release cyanocobalamin (vitamin B-12) 1,000 mcg PO DAILY 10/17/20 12/26/24 12/25/24 History 1,000 mcg tablet acetaminophen 500 mg capsule 1,000 mg PO Q8H PRN Pain 08/10/23 12/26/24 09/16/24 History (Mapap (acetaminophen)) fluticasone propionate 50 1 spray intranasal DAILY PRN 08/10/23 12/26/24 05/18/24 History mcg/actuation nasal Allergy Symptoms spray,suspension [id number] 45 mg-folic 1 cap PO DAILY 08/10/23 12/26/24 12/25/24 History acid 800 mcg-vit K 120 mcg capsule (Bariatric Multivitamins) parenteral amino acid 15% no.5 15 0.5 ea IV MOWEFR@0900 08/10/23 12/26/24 12/25/24 History % combination no.5 intravenous solution (Clinisol SF) zinc acetate 50 mg (zinc) capsule 100 mg PO DAILY 05/19/24 12/26/24 12/25/24 History meclizine 12.5 mg tablet 12.5 mg PO TID PRN Nausea And 06/04/24 12/26/24 06/04/24 History Vomiting clotrimazole-betamethasone 1 1 appl topical DAILY PRN Rash 09/20/24 12/26/24 Unknown History %-0.05 % topical cream midodrine 5 mg tablet 5 mg PO TID PRN Hypotension 11/14/24 12/26/24 Unknown History misoprostol 200 mcg tablet 200 mcg PO QID 11/14/24 12/26/24 12/25/24 History omeprazole 40 mg capsule,delayed 40 mg PO BID@0630,1630 11/14/24 12/26/24 12/25/24 History release pantoprazole 40 mg tablet,delayed 40 mg PO BID 12/03/24 12/26/24 12/25/24 History release Physical Exam Exam: Exam: No apparent distress Nonicteric Abdomen soft, nondistended, nontender Alert and oriented x3 Vital Signs: Vital Signs: Last Vital Signs Temp 97.9 F 12/27/24 08:00 Pulse 86 12/27/24 08:00 Resp 18 12/27/24 08:00 BP 114/60 12/27/24 08:00 Pulse Ox 97 12/27/24 08:00 O2 Del Method Room Air 12/27/24 08:00 BMI result Body Mass Index 20.7 Results Labs 12/27/24 12:19 12/27/24 12:19 Assessment and Plan (1) Nausea & vomiting: Qualifiers: Vomiting type: unspecified Qualified Code(s): R11.2 - Nausea with vomiting, unspecified Status: Acute (2) Anemia: Status: Acute (3) Coffee ground emesis: Status: Resolved (4) Gastritis: Status: Acute (5) Gastric ulcer: Status: Acute (6) History of Sae-en-Y gastric bypass: Status: Acute Plan Patient presenting with coffee-ground emesis in the setting of productive cough. Based on CBC trend, likely had bleeding from known healing gastritis. EGD 12/07 (Dr Henson) reviewed, which did not have any high-risk stigmata and therefore a repeat EGD at this time will likely be of low therapeutic yield sergey as sx were self limiting anyway. This is her 3rd hospitalization where she is admitted to missing either PPI or sucralfate x 1-2 weeks due to not getting a refill on time. We reviewed strategies such as switching to a 90 day supply, versus keeping a pillbox so that she is aware of a medication running low at least a week ahead of time, getting prescription mailed to her home etc. Also counseled her extensively on smoking cessation. Patient reports that has not had any cigarettes since her hospitalization in [facility], can potentially check a cotinine level in future if continues to have delayed gastric healing despite maximized anti-secretory therapy. Patient is also established with [facility] bariatric surgery to continue discussion regarding revision of the large gastric pouch once optimized. Plan: - Can advance diet from GI standpoint - Hold off EGD as above - Cont triple therapy of PPI, sucralfate and misoprostol - Can consider addition of vonoprazan off label if no meaningful improvement in gastric ulcers and gastritis at next EGD Thank you for allowing me to participate in her care. Please do not hesitate to reach out for any questions or concerns. Procedures Date of Service Date of Service: 12/27/24
[2024-12-27 12:58] LABS: Hematocrit 35.4 % (37.0-47.0); Hemoglobin 11.5 g/dl (12.0-16.0); Mean Corpuscular HGB Conc 32.5 g/dl (31.0-35.0); Mean Corpuscular Hemoglobin 29.3 pg (27.0-33.0); Mean Corpuscular Volume 90.1 fL (80.0-98.0); NRBC Abs Auto 0.000 X10*3/uL (0.0-0.012); NRBC Pct Auto 0.0 /100WBC (0.0-0.2); Platelet Count 237 X10*3/uL (160-400); Red Blood Count 3.93 X10*6/uL (4.20-5.50); White Blood Count 4.6 X10*3/uL (4.8-10.8)
[2024-12-27 13:12] LABS: Anion Gap 13 (12-20); Blood Urea Nitrogen 6 mg/dL (9-16); Calcium 8.9 mg/dL (8.4-10.2); Carbon Dioxide 29 mmol/L (22-29); Chloride 101 mmol/L (96-108); Potassium 3.3 mmol/L (3.3-5.1); Sodium 140 mmol/L (135-145)
[2024-12-27 13:24] LABS: Creatinine Clr Calc Pharmacy 40.5; Estimated Glomerular Filt Rate 38
--- NOTE | 2024-12-27 14:07 | P.DS_ITS ---
DS: Providers Provider Date of Service: 12/27/24 Date of admission: 12/25/24 21:08 Date of discharge: 12/27/24 Primary care physician: Rozina Lang MD Consults: 12/25/24 21:25 Consult to Nephrology Routine Consulting Provider: Tio Gallardo Reason for consultation: inpatient HD (MWF) Has provider been notified: No 12/26/24 11:34 Consult to Gastroenterology Routine Consulting Provider: [facility] G[facility]ology Services Reason for consultation: anemia /coffee ground vomitin Has provider been notified: No Attending physician on discharge: Heidi Melgar Discharging clinician: Heidi Melgar DS: Diagnosis Discharge Diagnosis (1) Intractable abdominal pain: Status: Acute (2) Intractable nausea and vomiting: Status: Acute DS: Summary Hospital Course Hospital Course: HPI:54 years old woman with past medical history significant for end-stage renal disease on hemodialysis (MWF), GI bleeding due to PUD, gastric sleeve surgery requiring multiple revisions including Sae-en-Y bypass, GERD, , dyslipidemia, mood disorder, fibromyalgia and chronic pain presents to the emergency department complaining of severe upper abdominal pain radiating to the chest th. at started last Friday. This morning she started to have coffee-ground vomiting. She had some events of dark diarrhea as well but her last bowel movement was 2 days ago. She denied shortness on breath, fever, cough, headache, palpitations or dizziness. She continues to make urine and denied any acute urinary symptoms. During last hospitalization in September of this year, she underwent a EGD due to upper GI bleeding. This study showed normal esophagus, gastritis and numerous anastomotic ulcer with 2 ulcers with high-risk stigmata and normal jejunum. She denied use of NSAIDs or blood thinners. She denied tobacco smoking, alcohol abuse or illicit drug use. In the ED, she was found to have normal vital signs. Blood workup showed no leukocytosis. Hemoglobin is 12.7 and hematocrit 39.1. There are no significant electrolyte imbalances. BUN is 20 and creatinine 4.26. LFTs are essentially normal, lipase is normal as well. Troponin is 5.6. Abdominal pelvis CT scan today showed some wall thickening of the small bowel loops within right hemiabdomen suggestive of nonspecific enteritis and remote changes of what happened to perhaps partial gastric resection with gastroenterostomy. ECG showed normal sinus rhythm, QTC is [address] abnormalities. ED tx: Reglan 10 mg IV, Benadryl 12.5 mg IV, NS 1 L bolus, Maalox 300 mL p.o., Zofran 8 mg IV total, Zyprexa 5 mg p.o., Dilaudid 0.5 mg IV, Compazine 5 mg IV, Protonix 80 mg IV, viscous lidocaine. Hospital course: Patient was admitted to hospital for abdominal pain and nausea vomiting thought to be having coffee-ground episode also possible sec to garsititis : Patient is started on IV fluid, antiemetics, IV ppi, sucralfate: Patient seems to be improved significantly with supportive care. Tolerating diet,H&H stable,No further episode of vomiting. Seen by GI: No acute intervention. Monitor CBC outpatient, follow up with PCP and GI outpatient. ESRD: Patient received dialysis, no new complaints. Continue dialysis outpatient. plan: Continue PPI/sucralfate Monitor CBC outpatient, follow up with PCP and GI outpatient. Any new signs of nausea vomiting or coffee-ground or GI bleed please go to nearest emergency room. Above management discussed with the patient detail length she understand in agreement with the above plan, time spent 45 minute. Time Attestation Total time managing care of this patient today: 45 mintues. Discharge Coordination Time (in mins): 45 minute. Quality: Safe Use of Opioids Does Pt have an Active Cancer Diagnosis on the Problem List?: No Quality: Stroke Does the patient have a stroke diagnosis?: No Physical Exam Exam: Exam: Appearance: Alert.? Oriented X3.?. cvs: rrr, [id number] , no murmur res: clear to auscultation ,no rhonchii or wheezing abd: no rebound or guarding ,nt, bs present. ext pulses present , no cyanosis . neuro: axo3 , nonfocal. Vital Signs: Vital Signs: Last Vital Signs Temp 97.9 F 12/27/24 08:00 Pulse 86 12/27/24 08:00 Resp 18 12/27/24 08:00 BP 114/60 12/27/24 08:00 Pulse Ox 97 12/27/24 08:00 O2 Del Method Room Air 12/27/24 08:00 BMI result Body Mass Index 20.7 DS: Data Data Completed and Pending Completed studies during hospitalization [Text1]: Procedures Control Bleeding in Gastrointestinal Tract, Via Natural or Artificial Opening Endoscopic (09/20/24) Excision of Stomach, Pylorus, Via Natural or Artificial Opening Endoscopic, Diagnostic (11/14/24) Excision of Stomach, Via Natural or Artificial Opening Endoscopic, Diagnostic (08/09/24) Inspection of Upper Intestinal Tract, Via Natural or Artificial Opening Endoscopic (04/24/24) Introduction of Mineral-based Topical Hemostatic Agent into Upper GI, Via Natural or Artificial Opening Endoscopic, [employer] 6 (09/20/24) Introduction of Other Therapeutic Substance into Upper GI, Via Natural or Artificial Opening Endoscopic (09/20/24) Performance of Urinary Filtration, Intermittent, Less than 6 Hours Per Day (11/14/24) Transfusion of Nonautologous Red Blood Cells into Peripheral Vein, Percutaneous Approach (11/14/24) Labs on day of discharge: Laboratory Results - last 24 hr 12/27/24 12:19 WBC 4.6 L RBC 3.93 L Hgb 11.5 L Hct 35.4 L MCV 90.1 MCH 29.3 MCHC 32.5 RDW 14.5 Plt Count 237 MPV 10.1 Absolute Nucleated RBC 0.000 Nucleated RBC % (auto) 0.0 Sodium 140 Potassium 3.3 Chloride 101 Carbon Dioxide 29 Anion Gap 13 BUN 6 L Creatinine 1.43 H Estim Creat Clear Calc 40.5 Estimated GFR 38 Random Glucose [address] scan - abdomen: My impression: 1. There appears to be some wall thickening of the small bowel loops within right hemiabdomen, suggesting nonspecific enteritis. 2. Remote changes of what appears to be perhaps partial gastric resection with gastroenterostomy. 3. No other definable acute abnormalities or other CT explanation for reported history of pain. Discharge Plan Discharge Anticipated Discharge Date/Time: 12/27/24 14:02 Patient Disposition: Home, Self-Care Discharge Diagnosis: Intractable nausea vomiting, coffee-ground vomiting. Referrals: Rozina Nicole MD [Primary Care Provider, Internal Medicine] - 1 Week Discharge Medications: Continued thiamine HCl (vitamin B1) 100 mg tablet 100 mg PO DAILY 90 Days Qty: 90 0RF vitamin A 2,400 mcg capsule 2,400 mcg PO DAILY 90 Days Qty: 90 1RF citalopram 20 mg tablet 20 mg PO DAILY 90 Days Qty: 90 1RF melatonin 10 mg capsule 20 mg PO BEDTIME Qty: 90 0RF pyridoxine (vitamin B6) 50 mg tablet 50 mg PO DAILY 90 Days Qty: 90 1RF gabapentin 400 mg capsule 400 mg PO BID 90 Days Qty: 180 1RF ondansetron 4 mg tablet,disintegrating 4 mg PO Q8H PRN (Reason: nausea and vomiting) Qty: 10 0RF docusate sodium 100 mg capsule 100 mg PO BID Qty: 60 3RF sucralfate 100 mg/mL suspension 10 ml PO BID Qty: 600 2RF cyanocobalamin (vitamin B-12) 1,000 mcg Tablet 1,000 mcg PO DAILY clotrimazole-betamethasone 1-0.05 % cream 1 appl topical DAILY PRN (Reason: Rash) acetaminophen [Mapap (acetaminophen)] 500 mg capsule 1,000 mg PO Q8H PRN (Reason: Pain) Clinisol SF 15 % 15 % parenteral solution 0.5 ea IV MOWEFR@0900 Rx Instructions: DIALYSIS MEDICATION Bariatric Multivitamins 45 mg iron- 800 mcg-120 mcg Capsule 1 cap PO DAILY fluticasone propionate 50 mcg/actuation spray,suspension 1 spray intranasal DAILY PRN (Reason: Allergy Symptoms) Rx Instructions: administer into each nostril zinc acetate 50 mg (zinc) Capsule 100 mg PO DAILY meclizine 12.5 mg Tablet 12.5 mg PO TID PRN (Reason: Nausea And Vomiting) misoprostol 200 mcg tablet 200 mcg PO QID omeprazole 40 mg capsule,delayed release(DR/EC) 40 mg PO BID@0630,1630 midodrine 5 mg tablet 5 mg PO TID PRN (Reason: Hypotension) pantoprazole 40 mg tablet,delayed release (DR/EC) 40 mg PO BID ferrous sulfate 325 mg (65 mg iron) tablet,delayed release (DR/EC) 325 mg PO DAILY acetaminophen-codeine 300-15 mg tablet 1 tab PO DAILY PRN (Reason: pain) 30 Days Qty: 20 0RF Discharge Orders: Discharge Order (Routine); Ordered 12/27/24 Ordered By: Heidi Melgar Diet: Advance to usual diet Activity on Discharge: As tolerated Stand Alone Forms: Patient Portal Discharge page Print Language: Indonesian Other Ambulatory Orders: Complete Blood Count no Diff (Routine) Timeframe: 1 Week Facility: [facility] - Location: Laboratory Ordered By: Heidi Melgar Care Plan Goals: as below. Health Concerns: Continue PPI/sucralfate Monitor CBC outpatient, follow up with PCP and GI outpatient. Any new signs of nausea vomiting or coffee-ground or GI bleed please go to nearest emergency room. Plan of Treatment: As above. Assessment: As above.
--- NOTE | 2024-12-27 15:15 | MHC.CM.PN ---
pt dcd home pt to resume [employer] services nd dialysis
--- NOTE | 2024-12-27 15:40 | PM.CNNEP ---
History of Present Illness Reason for Consult Consult date: 12/27/24 Reason for consult: ESRD and HD management Chief Complaint Chief complaint: intractable abdominal pain, nausea and vomiting History of Present Illness Narrative: MARKY consulted for ESRD and HD management Meliza Perry is a 54 y/o woman with a PMHx significant for GI bleeding due to PUD, GERD, gastric sleeve surgery requiring multiple revisions including Sae-en-Y bypass and SBO and mu;tiple mutiple hosp for GI decomp. N/V and diarrhea improved. 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 Lumbar back pain with radiculopathy affecting left lower extremity Physical exam (~02/14/21) Peritoneal dialysis catheter in place Polyarthralgia Dyslipidemia Family history of ovarian cancer Abnormal mammogram of right breast Angina pectoris syndrome Chest pain Constipation Nephrosclerosis Renal interstitial fibrosis Obesity (BMI 30-39.9) Back pain GERD (gastroesophageal reflux disease) History of headache HTN (hypertension) Family History Family History Father Asthma Mother Asthma Hypertension Ovarian cancer Maternal Grandfather Myocardial infarction Paternal Grandmother Stroke Surgical History Surgical History History of sleeve gastrectomy S/P arteriovenous (AV) graft placement Fistula Hx of colonoscopy Hx of hysterectomy Hx of tubal ligation History of endometrial ablation Social History Social History Household Members: Family Household Members Other:: 30 year old special needs son Housing: Apartment Are you a primary home health care case manager to a significant other at home: No Do you presently have visiting nurse or other home services: No Alcohol intake: never Comment: low fall risk Patient Tobacco Use Status: Former Tobacco user Tobacco use type: Cigarette Cigarette Packs Per Day: 1 Cigarettes Per Day: 1 Years Smoked: 10+ e-Cigarette/Vaping Use: Never Used Second Hand Smoke Exposure: Yes Substance Use Type: Caffiene Advance Directives Date on File: 04/27/20 service: No Current occupational status: employed Cognitive needs: No Hearing needs: No Vision needs: Yes (reading glasses) Meds Allergies Allergy/AdvReac Type Severity Reaction Status Date / Time ibuprofen Allergy Severe Unknown Verified 12/25/24 12:28 nifedipine Allergy Intermediate hives, leg Verified 12/25/24 12:28 edema Active Medications: Current Medications Cyanocobalamin (Cyanocobalamin (Vitamin B-12) 1,000 Mcg Tablet) 1,000 mcg PO DAILY [facility] Last Admin: 12/27/24 08:09 Dose: 1,000 mcg Docusate Sodium (Docusate Sodium 100 Mg Capsule) 100 mg PO BID [facility] Last Admin: 12/27/24 08:09 Dose: 100 mg Escitalopram Oxalate (Escitalopram Oxalate 10 Mg Tablet) 10 mg PO DAILY [facility] Last Admin: 12/27/24 08:09 Dose: 10 mg Fluticasone Propionate (Fluticasone Propionate Nasal 16 Gm [place]) 1 spray NOSTRIL-B DAILY PRN PRN Reason: Allergy Symptoms Gabapentin (Gabapentin 400 Mg Capsule) 400 mg PO BID [facility] Last Admin: 12/27/24 08:09 Dose: 400 mg Hydromorphone HCl (Hydromorphone Hcl 1 Mg/Ml Syringe) 0.5 mg IVPUSH Q4H PRN; Protocol PRN Reason: Pain, Severe (Pain Scale 7-10) Last Admin: 12/27/24 15:19 Dose: 0.5 mg Meclizine HCl (Meclizine Hcl 12.5 Mg Tablet) 12.5 mg PO TID PRN PRN Reason: Nausea and Vomiting Melatonin (Melatonin 3 Mg Tablet) 18 mg PO BEDTIME [facility] Last Admin: 12/26/24 20:56 Dose: Not Given Midodrine (Midodrine Hcl 5 Mg Tablet) 5 mg PO TID PRN PRN Reason: Hypotension Misoprostol (Misoprostol 200 Mcg Tablet) 200 mcg PO QID [facility] Last Admin: 12/27/24 12:25 Dose: 200 mcg Multivitamins/Vitamin C (Multivitamin Tablet) 1 tab PO DAILY [facility] Last Admin: 12/27/24 08:09 Dose: 1 tab Omeprazole (Omeprazole 40 Mg Capsule.Dr) 40 mg PO BID@0630,1630 [facility] Ondansetron HCl (Ondansetron Hcl 4 Mg/2 Ml Vial) 4 mg IVPUSH Q6H PRN PRN Reason: Nausea and Vomiting Last Admin: 12/27/24 05:45 Dose: 4 mg Prochlorperazine Edisylate (Prochlorperazine Edisylate 10 Mg/2 Ml Vial) 5 mg IVPUSH Q6H PRN PRN Reason: Nausea and Vomiting Last Admin: 12/26/24 05:52 Dose: 5 mg Pyridoxine HCl (Pyridoxine Hcl (Vitamin B6) 50 Mg Tablet) 50 mg PO DAILY [facility] Last Admin: 12/27/24 08:10 Dose: 50 mg Sodium Chloride (0.9 % Sodium Chloride Flush 3 Ml Syringe) 3 ml IVFLUSH QSHIFT [facility] Last Admin: 12/27/24 08:13 Dose: 3 ml Sucralfate (Sucralfate Oral Suspension 1 Gm/10 Ml Oral.Susp) 1 gm PO BID [facility] Last Admin: 12/27/24 08:10 Dose: 1 gm Thiamine HCl (Thiamine Hcl 100 Mg Tablet) 100 mg PO DAILY [facility] Last Admin: 12/27/24 08:09 Dose: 100 mg Home Medications ?Medication ?Instructions ?Recorded ?Confirmed ?Last Taken ?Type ferrous sulfate 325 mg (65 mg 325 mg PO DAILY 05/11/20 12/26/24 12/25/24 History iron) tablet,delayed release cyanocobalamin (vitamin B-12) 1,000 mcg PO DAILY 10/17/20 12/26/24 12/25/24 History 1,000 mcg tablet acetaminophen 500 mg capsule 1,000 mg PO Q8H PRN Pain 08/10/23 12/26/24 09/16/24 History (Mapap (acetaminophen)) fluticasone propionate 50 1 spray intranasal DAILY PRN 08/10/23 12/26/24 05/18/24 History mcg/actuation nasal Allergy Symptoms spray,suspension [id number] 45 mg-folic 1 cap PO DAILY 08/10/23 12/26/24 12/25/24 History acid 800 mcg-vit K 120 mcg capsule (Bariatric Multivitamins) parenteral amino acid 15% no.5 15 0.5 ea IV MOWEFR@0900 08/10/23 12/26/24 12/25/24 History % combination no.5 intravenous solution (Clinisol SF) zinc acetate 50 mg (zinc) capsule 100 mg PO DAILY 05/19/24 12/26/24 12/25/24 History meclizine 12.5 mg tablet 12.5 mg PO TID PRN Nausea And 06/04/24 12/26/24 06/04/24 History Vomiting clotrimazole-betamethasone 1 1 appl topical DAILY PRN Rash 09/20/24 12/26/24 Unknown History %-0.05 % topical cream midodrine 5 mg tablet 5 mg PO TID PRN Hypotension 11/14/24 12/26/24 Unknown History misoprostol 200 mcg tablet 200 mcg PO QID 11/14/24 12/26/24 12/25/24 History omeprazole 40 mg capsule,delayed 40 mg PO BID@0630,1630 11/14/24 12/26/24 12/25/24 History release pantoprazole 40 mg tablet,delayed 40 mg PO BID 12/03/24 12/26/24 12/25/24 History release Physical Exam Vital Signs: Last Vital Signs Temp 97.9 F 12/27/24 08:00 Pulse 86 12/27/24 08:00 Resp 18 12/27/24 08:00 BP 114/60 12/27/24 08:00 Pulse Ox 97 12/27/24 08:00 O2 Del Method Room Air 12/27/24 08:00 BMI result Body Mass Index 20.7 Const General: cooperative Orientation/consciousness: patient oriented x3 Limitations: no limitations HEENT Head: Yes normal to inspection General nose exam: Normal external nose present Face and sinus: Yes normal facial exam Mouth: Normal oral and palatal mucosa present Throat: Yes posterior oropharynx normal Neck Neck: Yes normal visual inspection Chest Chest palpation & inspection: normal inspection of the chest Cardio Jugular venous distension: no JVD Rate: regular rate Rhythm: regular rhythm GI Other: Soft nontender Inspection: Yes normal to inspection Palpation (GI): Soft to palpation, not firm and nontender Skin General skin exam: no rashes or lesions noted and elasticity normal Neuro General: patient oriented x3 Results Lab Results 12/27/24 12:19 12/27/24 12:19 Lab results: Chemistry 12/25/24 12/26/24 12/27/24 13:17 06:20 12:19 Sodium 141 143 140 Potassium 3.6 3.5 3.3 Carbon Dioxide 28 27 29 BUN 20 H 31 H 6 L Creatinine 4.29 H* 4.75 H* 1.43 H Calcium 9.7 9.1 D 8.9 Phosphorus 3.4 Hematology 12/25/24 12/26/24 12/27/24 12:41 06:20 12:19 WBC 7.2 5.0 4.6 L Hgb 12.7 9.9 L D 11.5 L Plt Count 260 202 237 Assessment and Plan (1) Intractable abdominal pain: Status: Acute (2) Intractable nausea and vomiting: Status: Acute Plan ESRD: HD today and then cont mwf GI upset: doing better, this is arepeatitive prob abd being eval tx by GI team Nephrogeneic Anemia: n need for EPO at this time MBD of CKD MAMTA E AVF with skin irritation--suspect allergic to tape REC: cont HD mwf; topical hydrocortisone and use silk tape Will follow w team This documentation was generated using dictation software; minor spreading or buggy ladle tender errors may be present. Procedures Date of Service Date of Service: 12/27/24
[2024-12-27 15:55] VITALS: BP 140/80; PULSE 87; RESP 18; TEMP 36.7; O2SAT 100
== END 2024-12-27 17:13 | disposition home or self-care (01) | DRG 377 ==
LOC: HO.ED 16:07 → HO.EDOVER 21:11 → HO.S3 23:23
PROVIDERS: Emergency Medicine; Admitting Provider Internal Medicine; Emergency Provider Student in an Organized Health Care Education/Training Program; PCP Internal Medicine; Visit Provider Internal Medicine
DX: K29.71 Gastritis, unspecified, with bleeding (principal); N18.6 End stage renal disease; M79.7 Fibromyalgia; G89.29 Other chronic pain; F39 Unspecified mood [affective] disorder; Z99.2 Dependence on renal dialysis; Z98.84 Bariatric surgery status; Z20.822 Contact with and (suspected) exposure to COVID-19; Z87.891 Personal history of nicotine dependence; Z79.899 Other long term (current) drug therapy
CPT/HCPCS: 36415; 74176; 80048; 80053; 83605; 83690; 83735; 84100; 84484; 85025; 85027; 85610; 86850; 86900; 86901; 87502; 87635; 93005; 99285; J0737; J1171; J1200; J2405; J2470; J2765

== ENCOUNTER → 2024-12-25 12:29 | Outpatient (BNV) | payer MEDICARE, MEDICAID, SELFPAY | PROVIDERS: Admitting Provider Internal Medicine; Emergency Provider Student in an Organized Health Care Education/Training Program; PCP Internal Medicine; Visit Provider Internal Medicine Cardiovascular Disease | DX: R94.31 Abnormal electrocardiogram [ECG] [EKG] (principal); R10.9 Unspecified abdominal pain | CPT/HCPCS: 93010 ==

== ENCOUNTER → 2024-12-25 21:08 | Outpatient (BNV) | payer MEDICARE, MEDICAID, SELFPAY | PROVIDERS: Admitting Provider Internal Medicine; Emergency Provider Student in an Organized Health Care Education/Training Program; PCP Internal Medicine; Visit Provider Nurse Practitioner Family | DX: R10.9 Unspecified abdominal pain (principal); R11.2 Nausea with vomiting, unspecified | CPT/HCPCS: 99223; 99232; 99239; 99499 ==

== ENCOUNTER → 2024-12-25 21:08 | Outpatient (BNV) | payer MEDICARE, MEDICAID, SELFPAY | PROVIDERS: Admitting Provider Internal Medicine; Emergency Provider Student in an Organized Health Care Education/Training Program; PCP Internal Medicine; Visit Provider Internal Medicine | DX: D64.9 Anemia, unspecified (principal); R11.2 Nausea with vomiting, unspecified; K29.70 Gastritis, unspecified, without bleeding; K25.9 Gastric ulcer, unspecified as acute or chronic, without hemorrhage or perforation; Z98.84 Bariatric surgery status | CPT/HCPCS: 99223 ==

== ENCOUNTER → 2024-12-28 10:00 | Outpatient (BNV) | payer MEDICARE, MEDICAID, SELFPAY | PROVIDERS: PCP Internal Medicine; Visit Provider Internal Medicine | DX: Z12.31 Encounter for screening mammogram for malignant neoplasm of breast (principal) | CPT/HCPCS: 77063; 77067 ==

== ENCOUNTER 2024-12-28 10:13 | Outpatient (REF) | payer MEDICARE, MEDICAID, SELFPAY | END 2024-12-28 10:14 | disposition home or self-care (01) | LOC: HO.MAMMO 10:13 | PROVIDERS: PCP Internal Medicine; Visit Provider Internal Medicine | DX: Z12.31 Encounter for screening mammogram for malignant neoplasm of breast (principal) | CPT/HCPCS: 77063; 77067 ==

== ENCOUNTER → 2025-01-04 10:03 | Outpatient (REF) | payer MEDICARE, MEDICAID, SELFPAY ==
--- NOTE | 2025-01-04 10:07 | CA_ITS ---
Transthoracic Echocardiogram Patient (Last, First, Middle): Meliza Olguin, Gender: F Date of : 1970 Age: 54 Procedure Date: 01/04/2025 Procedure Type: Transthoracic Echocardiogram Location: OP Height: 165.1 cm Weight: 59.88 kg BSA: 1.66 m2 Heart Rate: bpm BP: 130 / 78 mmHg Assistant Professor Of Music: TESSIE Referring MD: Austin Zuniga MD Symptoms: R01.1 - Cardiac murmur, unspecified Study Quality: Adequate ECG Rhythm: Sinus Conclusions: - The calculated ejection fraction is 61% by biplane method. There is no evidence of regional wall motion abnormalities. - Evidence suggests grade II (moderate) diastolic dysfunction. - The left atrium is moderately dilated. - There is mild calcification of the aortic valve. - There is mild to moderate tricuspid valve regurgitation. Findings Left Ventricle Normal left ventricular cavity size. The left ventricular systolic function is normal. The calculated ejection fraction is 61% by biplane method. There is no evidence of regional wall motion abnormalities. Evidence suggests grade II (moderate) diastolic dysfunction. There is mild septal asymmetric hypertrophy. Right Ventricle Normal right ventricular cavity size and systolic function. Atria The left atrium is moderately dilated. The right atrium is mildly dilated. Aortic Valve There is a normal trileaflet aortic valve. There is mild calcification of the aortic valve. There is no aortic valve stenosis. There is no aortic valve regurgitation. Mitral Valve The mitral valve appears normal. There is trace mitral valve regurgitation. There is no mitral valve stenosis. Pulmonic Valve There is trace pulmonic valve regurgitation. Tricuspid Valve There is mild to moderate tricuspid valve regurgitation. There is no evidence of pulmonary hypertension. Great Vessels The asc aorta is normal in size. Venous The inferior vena cava is normal in size and collapses greater than 50% with inspiration. Pericardium/Pleural There is no evidence of pericardial effusion. Prior Study Comparison No significant change compared to prior study dated: 05/17/2020. Measurements 2D Linear Measurements IVSd: 1.09 0.6-0.9/0.6-1.0 cm LVIDd: 5.12 3.9-5.3/4.2-5.9 cm LVIDd Index: 3.08 2.4-3.2/2.2-3.1 cm/m2 LVIDs: 3.44 2.0-3.6 cm LVPWd: 0.93 0.7-1.1 cm LA Diam: 4.30 2.7-3.8/3.0-4.0 cm LAIDs Index: 2.59 1.5-2.3 cm/m2 LV Mass: 238.49 67-162/88-224 g LV Mass Index: 143.67 43-95/49-115 g/m2 LVOT Diam: 2.00 3.0+(-)1.3 cm 2D Systolic Function EF 4C: 59.50 >55% EF 2C: 63.10 >55% EF BiP: 61.30 >55% Mitral Valve MV Pk E: 1.17 MV PK A: 0.75 MV Decel Time: 197.00 E/A: 1.60 E'Lateral: 7.62 E'Medial: 5.66 E/E' Med: 20.70 E/E' Lat: 15.40 PHT: 58.00 MVA PHT: 3.79 Decel [place]: 5.93 Aortic Valve AoV Pk Morales: 1.98 AoV Mn Morales: 1.36 AoV VTI: 0.44 AoV Pk Grad: 16.00 Aov Mn Grad: 8.00 SAI Cont.VTI: 2.09 LVOT LVOT Pk Morales: 1.38 LVOT Mn Morales: 0.96 LVOT VTI: 0.29 LVOT Pk Grad: 8.00 LVOT Mn Grad: 4.00 LVOT Diam: 2.00 LVOT Area: 3.14 Diastolic Function MV Pk E: 1.17 MV Pk A: 0.75 E/A: 1.60 E'Medial: 5.66 E/E' Med: 20.70 E' Laterial: 7.62 E/E' Lat: 15.40 Right Ventricle TAPSE (mm): 24.80 TVS' Morales: 10.80 Tricuspid Valve TR Pk Morales: 2.75 TR Pk Grad: 30.00 RA Press: 3.00 RVSP: 33.00 Great Vessels Aorta Sinus of Valsalva: 2.90 2.0-3.[address] [place]: 2.10 1.7-3.4 cm Ao Asc: 3.40 2.1-3.4 cm Pulmonary Veins Pulm Vein S/D 1.00 Updated in Other Vendor System with Status of Final Forest De La Cruz MD electronically signed on 01/04/2025 1:22:57 PM with status of Final
--- OUTSIDE RECORDS SUMMARY | 2025-01-04 12:08 | XMS_ITS | Clinical Summary ---
Author Organization [address] [facility] Address [address] [place] [address] Phone Care Team Providers Care Tree Feller Name Role Phone Sam Lynch MD Primary [...] 32.9 in adult 11/26/2023 Acute kidney failure ([facility] V24) 04/26/2021 Benign essential hypertension 04/26/2021 Dependence on renal dialysis ([facility] V24) 04/26 Disorder of kidney and ureter, unspecified 04/26 ESRD on hemodialysis ([facility] V24, [facility] V28) 04/26/2021 Hypertensive heart and chron ic kidney disease with heart failure and stage 1 through stage 4 chronic kidney disease, or unspecified chronic kidney disease ([facility] V24, [facility] V28) 04/26/2021 Vitamin D deficiency 04/26/2021 Resolved Problems Problem Noted Date Diagnosed Date Resolved Date Upper GI bleed 06/30/2024 07/03/2024 Encounters Date Type Department Care Team Description 10/07/2024 Telephone Bariatric Surgery - [address] [place] [address] Gerson Rosen MD from Last 3 Months Surgical History Surgery Date Site/Laterality Comments OTHER SURGICAL HISTORY PROCEDURE: DIALYSIS ACCESS SYSTEM LAPAROSCOPIC GASTRIC BANDING PROCEDURE: LAP ADJUSTABLE GASTRIC BAND HYSTERECTOMY PROCEDURE: HISTORICAL HYSTERECTOMY OTHER SURGICAL HISTORY PROCEDURE: COLONOSCOPY LESION REMOVAL OTHER SURGICAL HISTORY 06/13/2021 Left PROCEDURE: OR CRTJ ARVEN FSTL XCP DIR ARVEN ANAST [...] Documents on File Type Date Recorded Patient Supervisor Locomotive Expl anation Health Care Decision (hx) 07/24/2023 [...] currently active code status orders. Care Teams Tree Feller Relationship Specialty Start Date End Date Sam Lynch MD [address] [place] [address] [address] [place], [place] PCP - General 10/25/22
--- OUTSIDE RECORDS SUMMARY | 2025-01-04 12:08 | XMS_ITS | Encounter Summary ---
Author Organization [facility] Address [address] [facility] [address] [place] [address] Phone Care Team Providers Care Naval Marine Engineer Name Role Phone Rozina Nicole MD Primary Care Provider [phone] Encounter Details Date Type Department Care Team (Late st Contact Info) Description 05/22/2020 Orders Only [facility] [address] [place] [address] Jon Wang MD [address] [facility] [address] [place] [id number] Stage 5 chronic kidney disease (HCC) Social [...] (HCC) documented in this encounter Care Teams Naval Marine Engineer Relationship Specialty Start Date End Date Rozina Nicole MD [address] [place], [place] PCP - General 02/21/20 documented as of this encounter
--- OUTSIDE RECORDS SUMMARY | 2025-01-04 12:08 | XMS_ITS | Encounter Summary ---
Author Organization [facility] Address [address] [place] [address] Phone Care Team Providers Care Associate Professor Of Economics Name Role Phone Rozina Nicole MD Primary Care Provider [phone] Encounter Details Date Type Department Care Team (Late st Contact Info) Description 05/08/2020 Orders Only [facility] [address] [place] [address] Provider, MD Wendy Social History [...] on filedocumented in this encounter Care Teams Associate Professor Of Economics Relationship Specialty Start Date End Date Rozina Nicole MD [address] [place], [place] PCP - General 02/21/20 documented as of this encounter
--- OUTSIDE RECORDS SUMMARY | 2025-01-04 12:08 | XMS_ITS | Encounter Summary ---
Author Organization [facility] Address [address] [facility] [address] [place] [address] Phone Care Team Providers Care Tool Honing Machine Set Up Operator Name Role Phone Rozina Nicole MD Primary Care Provider [phone] Encounter Details Date Type Department Care Team (Late st Contact Info) Description 05/15/2020 Orders Only [facility] [address] [place] [address] Jon Wang MD [address] [facility] [address] [place] [id number] Stage 5 chronic kidney disease (HCC) Social [...] (HCC) documented in this encounter Care Teams Tool Honing Machine Set Up Operator Relationship Specialty Start Date End Date Rozina Nicole MD [address] [place], [place] PCP - General 02/21/20 documented as of this encounter
--- OUTSIDE RECORDS SUMMARY | 2025-01-04 12:08 | XMS_ITS | Clinical Summary ---
Author Organization [facility] Address [address] [place] [address] Care Team Providers Care Circus Agent Name Role Phone Rozina Nicole MD Primary Care Provider [phone] Jon Wang MD Unavailable [phone] Allergies No known active allergies Medications famotidine [...] Description 10/13/2024 8:31 PM EDT Anesthesia Event [facility] Peri[facility] [address] [facility] [place] [address] Enmanuel Fisher MD 10/13/2024 8:00 PM EDT - 10/13/2024 9:51 PM EDT Surgery [facility] Perioperative Surgical Services [address] [facility] [place] [address] David Harrell MD LAPAROSCOPY DIAGNOSTIC, LYSIS OF ADHESIONS 10/11/2024 12:06 PM EDT Anesthesia Event [facility] Gastroenterology Division [address] [place] [address], [place] [address] Irving Oliver DO Boucher, Sarah J, HANDS HANGER 10/11/2024 11:40 AM EDT - 10/11/2024 12:19 PM EDT Surgery [facility] Gastroenterology Division [address] [place] [address], [place] [address] Kristopher Kramer MD ENDOSCOPY UPPER 10/11/2024 1:59 AM EDT - 10/19/2024 4:00 PM EDT Hospital Encounter [facility] [address] [facility] [place] [address] Aniket Chand III, Roberta Gutiérrez MD Elajami, Mohamad, MD Sabir, Fastina Khan, MD Gastrointestinal hemorrhage with hematemesis (Primary Dx); Melena; Chronic low back pain, unspecified back pain laterality, unspecified whether sciatica present Discharge Disposition: Home or Self Care from Last 3 Months Social History Tobacco Use Types Packs/Day Years Used Date Smoking Tobacco: Former Cigarettes Passive Smoke Exposure: Past Tobacco Cessation:Counseling Given: Not Answered [facility] Utilities Answer Date Recorded In the past 12 months has [employer] gas, oil, or water virocyt threatened to shut off services in your [...] any time in the past 12 m [facility], were you homeless or living in a assisted (including now)? No 10/11/2024 Comments Unknown Sex [...] time period is included. Pathologist [facility] White Blood Cell Count 4.4 4.0 - 11.0 Thou/uL 10/18/2024 8:09 AM [facility] Platelet Count 275 150 - 450 Thou/uL 10/18/2024 8:09 AM [facility] Hemoglobin 8.2(L) 11.7 - 15.7 g/dL 10/18/2024 8:09 AM [facility] Hematocrit 25.4(L) 35.0 - 47.0 % 10/18/2024 8:09 AM [facility] Red Blood Cell Count 2.74(L) 4.00 - 5.40 Mil/uL 10/18/2024 8:09 AM [facility] MCV 93 80 - 100 fL 10/18/2024 8:09 AM [facility] MCH 29.9 27.0 - 31.0 pg 10/18/2024 8:09 AM [facility] MCHC 32.3 30.0 - 36.0 g/dL 10/18/2024 8:09 AM [facility] RDW 17.2(H) 11.5 - 14.5 % 10/18/2024 8:09 AM [facility] MPV 9.0 7.5 - 12.5 fL 10/18/2024 8:09 AM [facility] Neutrophils Auto 55.0 % 10/19/19 8:09 AM [facility] Immature Granulocytes 0.5 % 10/18/2024 8:09 AM [facility] Lymphocytes Auto 29.9 % 10/19/19 8:09 AM [facility] Monocytes Auto 9.4 % 10/18/2024 8:09 AM [facility] Eosinophils Auto 4.3 % 10/19/19 8:09 AM [facility] Basophils Auto 0.9 % 10/18/2024 8:09 AM [facility] Abs Neutrophils Auto 2.41 2.00 - 7.50 Thou/uL 10/18/2024 8:09 AM [facility] Abs Immature Granulocytes 0.02 0.00 - 0.10 Thou/uL 10/18/2024 8:09 AM [facility] Abs Lymphocytes Auto 1.31(L) 1.50 - 4.50 Thou/uL 10/18/2024 8:09 AM [facility] Abs Monocytes Auto 0.41 0.20 - 1.50 Thou/uL 10/18/2024 8:09 AM [facility] Abs Eosinophils Auto 0.19 0.00 - 0.70 Thou/uL 10/18/2024 8:09 AM [facility] Abs Basophils Auto 0.04 0.00 - 0.20 Thou/uL 10/18/2024 8:09 AM [facility] Blood Blood specimen / Unknown 10/18/2024 7:19 AM EDT 10/18/2024 7:55 AM EDT Arina Amaya MD LAB BLOOD ORDERABLES Final Result [address] [address], [address] [address] * (ABNORMAL) Basic Metabolic Panel (10/18/2024 7:19 AM EDT) Only the most recent of9 resultswithin the time period is included. Glucose 87 65 - 99 mg/dL 10/18/2024 8:29 AM [facility] Comment:Fasting: <100 mg/dL, Non-Fasting: <200 mg/dL (ADA 2004) Blood Urea Nitrogen (BUN) 13 8 - 21 mg/dL 10/18/2024 8:29 AM [facility] Creatinine 4.8(H) 0.4 - 1.1 mg/dL 10/18/2024 8:29 AM [facility] eGFR 10(L) >59 10/18/2024 8:29 AM [facility] Comment:CKD-EPI (2020) in mL /min/1.73 sq meters. Sodium 137 136 - 145 mmol/L 10/18/2024 8:29 AM [facility] Potassium 3.6 3.4 - 5.3 mmol/L 10/18/2024 8:29 AM [facility] Chloride 103 98 - 107 mmol/L 10/18/2024 8:29 AM [facility] CO2 26 22 - 33 mmol/L 10/18/2024 8:29 AM [facility] Anion Gap 8 7 - 17 10/18/2024 8:29 AM [facility] Calcium 8.9 8.7 - 10.5 mg/dL 10/18/2024 8:29 AM [facility] BUN/Creatinine Ratio 3(L) 10.0 - 25.0 Ratio 10/18/2024 8:29 AM [facility] Blood Blood specimen / Unknown 10/18/2024 7:19 AM EDT 10/18/2024 7:55 AM EDT us Arina Amaya MD LAB BLOOD ORDERABLES Final Result [address] [address], [address] [address] * Transfuse RBC's: (10/15/2024 9:14 PM EDT) us Arina Amaya MD BLOOD TRANSFUSION ORDERABL ES Final Result * Type and Screen (10/15/2024 2:19 PM EDT) Only the most recent of2 resultswithin the time period is included. ABO/Rh O POSITIVE 10/15/2024 4:38 PM EDT [facility] Antibody Screen NEGATIVE 10/15/2024 4:38 PM EDT [facility] Specimen Expiration 10/18/2024 10/15/2024 4:38 PM EDT [facility] Unit Number [id number] 10/15/2024 6:22 PM EDT [facility] Blood Component Type LR RBC CONTAINER 2 10/15/2024 6:22 PM EDT [facility] Unit Division 00 10/15/2024 6:22 PM EDT [facility] Unit Status ISSUED,FINAL 10/16/2024 12:08 AM EDT [facility] Transfusion Status OK TO TRANSFUSE 10/15/2024 6:22 PM EDT [facility] Crossmatch Result Electronically Compatible 10/15/2024 6:22 PM EDT [facility] Blood Blood specimen / Unknown 10/15/2024 2:19 PM EDT 10/15/2024 3:38 PM EDT Comment:Blood Arina Amaya MD BLOOD BANK TEST ORDERABLES Final Result Performing Organization Address [facility] Co de Phone Number HOSPITAL LAB See Below [address] [address] * Prepare RBC's:Prepare in: Units; Number of [...] of4 resultswithin the time period is included. [facility] White Blood Cell Count 4.1 4.0 - 11.0 Thou/uL 10/15/2024 8:55 AM EDT [facility] Platelet Count 218 150 - 450 Thou/uL 10/15/2024 8:55 AM [facility] Hemoglobin 7.0(L) 11.7 - 15.7 g/dL 10/15/2024 8:55 AM [facility] Hematocrit 21.8(L) 35.0 - 47.0 % 10/15/2024 8:55 AM [facility] Red Blood Cell Count 2.25(L) 4.00 - 5.40 Mil/uL 10/15/2024 8:55 AM [facility] MCV 97 80 - 100 fL 10/15/2024 8:55 AM [facility] MCH 31.1(H) 27.0 - 31.0 pg 10/15/2024 8:55 AM [facility] MCHC 32.1 30.0 - 36.0 g/dL 10/15/2024 8:55 AM [facility] RDW 14.4 11.5 - 14.5 % 10/15/2024 8:55 AM [facility] MPV 9.2 7.5 - 12.5 fL 10/15/2024 8:55 AM [facility] Blood Blood specimen / Unknown 10/15/2024 7:57 AM EDT 10/15/2024 8:[address] Foss MD LAB BLOOD ORDERABLES Final Re sult [address] [address], [address] [address] * Phosphorus (10/15/2024 7:57 AM EDT) Only the most recent of2 resultswithin the time period is included. [facility] Phosphorus 3.8 2.7 - 4.5 mg/dL 10/15/2024 11:43 AM EDT [facility] 10/15/2024 7:57 AM EDT 10/15/2024 8:[address] Foss MD LAB BLOOD ORDERABLES Final Re sult Performing Organization Address City/[facility]/ZIP Co de Phone Number [address] [address], [address] [address] * Magnesium (10/15/2024 7:57 AM EDT) Only the most recent of3 resultswithin the time period is included. Magnesium 1.8 1.6 - 2.7 mg/dL 10/15/2024 10:04 AM EDT [facility] Blood Blood specimen / Unknown 10/15/2024 7:57 AM EDT 10/15/2024 8:[address] Foss MD LAB BLOOD ORDERABLES Final Re sult Performing Organization Address City/[facility]/ZIP Co de Phone Number [address] [address], [address] [address] * (ABNORMAL) TRANSFERRIN (10/14/2024 10:10 AM EDT) Transferrin 125(L) 200 - 360 mg/dL 10/14/2024 12:13 PM EDT [facility] Blood Blood specimen / Unknown 10/14/2024 10:10 AM EDT 10/14/2024 11:23 AM EDT David Harrell MD LAB BLOOD ORDERABLES Final R esult Performing Organization Address City/[facility]/ZIP Co de Phone Number [address] [address], [address] [address] * PREALBUMIN (10/14/2024 10:10 AM EDT) Prealbumin 24 20 - 40 mg/dL 10/14/2024 12:13 PM EDT [facility] Blood Blood specimen / Unknown 10/14/2024 10:10 AM EDT 10/14/2024 11:23 AM EDT us David Harrell MD LAB BLOOD ORDERABLES Final R esult Performing Organization Address [facility] [place] [address], [place] [address] * (ABNORMAL) ALBUMIN (10/14/2024 10:10 AM EDT) Albumin 3.1(L) 3.5 - 5.0 g/dL 10/14/2024 12:13 PM EDT [facility] Blood Blood specimen / Unknown 10/14/2024 10:10 AM EDT 10/14/2024 11:23 AM EDT us David Harrell MD LAB BLOOD ORDERABLES Final R esult Performing Organization Address [facility] [place] [address], [place] [address] * Nicotine, Cotinine, Serum (10/14/2024 5:50 AM EDT) Nicotine <2 ng/mL 10/19/2024 9:54 AM EDT [facility] Comment: (NOTE) Reference Ranges(ng/mL): Non-Smoker Active Tobacco User < or = to 4 2-10 Cotinine <2 ng/mL 10/19/2024 9:54 AM EDT [facility] Comment: (NOTE) Reference Ranges(ng/mL): Non-Smoker Active Tobacco User < or = to 8 16-145 This test was developed and its analytical performance characteristics have been determined by [facility] [place], [place]. It has not been cleared or approved by the U.S. Food and Drug Administration. This assay has been validated pursuant to the CLIA regulations and is used for clinical purposes. Blood Blood specimen / Unknown 10/14/2024 5:50 AM EDT 10/14/2024 6:22 AM EDT David Harrell MD LAB BLOOD ORDERABLES Final R esult [facility] [employer] [address] [facility] [address] [address] [place], [place] , [place] [facility], [facility] [address] [facility] [address] [address] [place], [place] * ANES INTUBATION (10/13/2024 8:59 PM EDT) Jon Bey CRNA - 10/13/2024 8:59 PM EDT Jon House CRNA 10/13/2024 8:59 PM Anesthesia Procedure Note - intubation Patient Name: Meliza Perry : 1970 Patient location: [place] Procedure diagnosis: Anesthesia Performed by: Resident/HANDS HANGER Preanesthetic Checklist . Patient's pre-procedure mental status: [...] no change with DL Enmanuel Fisher MD ME ANESTHESIA Final Result * CT Abdomen+pelvis w [...] Screen Nonreactive Nonreactive 10/12/2024 11:17 AM EDT [facility] Blood Blood specimen / Unknown 10/11/2024 3:01 PM EDT 10/11/2024 4:41 PM EDT Efrain Campos MD LAB BLOOD ORDERABLES Final Result [facility] [address] [place] [address], [place] * Hepatitis B Virus (HBV) Core Antibody Total (10/11/2024 3:01 PM EDT) Hepatitis B Core Antibody Total Nonreactive Nonreactive 10/12/2024 11:17 AM EDT [facility] Blood Blood specimen / Unknown 10/11/2024 3:01 PM EDT 10/11/2024 4:41 PM EDT Efrain Campos MD LAB BLOOD ORDERABLES Final Result [facility] [address] [place] [address], [place] * Hepatitis B Virus (HBV) Surface Antibody (10/11/2024 3:01 PM EDT) Hepatitis B Surface Antibody Reactive (Immune) Reactive (Immune) 10/12/2024 11:17 AM EDT [facility] Blood Blood specimen / Unknown 10/11/2024 3:01 PM EDT 10/11/2024 4:41 PM EDT Efrain Campos MD LAB BLOOD ORDERABLES Final Result [facility] [address] [place] [address], * POCT Glucose, Fingerstick (10/11/2024 1:21 PM [...] - 1.9 mmol/L 10/11/2024 3:00 AM EDT [facility] Blood Blood specimen / Unknown 10/11/2024 2:25 AM EDT 10/11/2024 2:43 AM EDT us Aniekt Chand III, DO LAB BLOOD ORDERABLES Jennifer l Result Performing Organization Address [facility] [place] [address], [place] [address] * ABO Confirmation (10/11/2024 2:24 AM EDT) ABO/Rh O POSITIVE 10/11/2024 3:26 AM EDT [facility] Blood Blood specimen / Unknown 10/11/2024 2:24 AM EDT 10/11/2024 2:51 AM EDT us Aniket Chand III, DO BLOOD BANK TEST ORDERABLE S Final Result Performing Organization Address [facility] [place] [address], [address] [address] * (ABNORMAL) Hepatic function panel (10/11/2024 2:24 AM EDT) Alkaline Phosphatase 91 32 - 122 U/L 10/11/2024 3:03 AM EDT [facility] Aspartate Aminotrans (AST) 10 10 - 50 U/L 10/11/2024 3:03 AM EDT [facility] Alanine Aminotrans (ALT) 5(L) 10 - 50 U/L 10/11/2024 3:13 AM EDT [facility] Bilirubin, Total 0.3 0.2 - 1.0 mg/dL 10/11/2024 3:03 AM EDT [facility] Protein, Total 4.6(L) 6.3 - 8.3 g/dL 10/11/2024 3:03 AM EDT [facility] Albumin 2.7(L) 3.5 - 5.0 g/dL 10/11/2024 3:03 AM EDT [facility] Bilirubin, Direct 0.1 0 - 0.2 mg/dL 10/11/2024 3:03 AM EDT [facility] Globulin 1.9 1.5 - 3.9 g/dL 10/11/2024 3:03 AM EDT [facility] Albumin/Globulin Ratio 1.4 1.0 - 3.0 Ratio 10/11/2024 3:03 AM EDT [facility] Blood Blood specimen / Unknown 10/11/2024 2:24 AM EDT 10/11/2024 2:44 AM EDT us Aniket Chand III, DO LAB BLOOD ORDERABLES Jennifer l Result [address] [address], [address] [address] from Last 3 Months Insurance [facility] MEDICARE PART A & B [facility] MEDICARE PART A & B [facility] MEDIC[facility] PART A & B Advance Directives * Full Code (Latest Code Status on File) Date Activated Date Inactivated Comments 10/11/2024 5:25 AM Care Teams Circus Agent Relationship Specialty Start Date End Date Rozina Nicole MD [address] [place] [address] PCP - General Family Medicine 10/11/24 Jon Wang MD [address] [facility] [address] [place] [address] Physician Internal Medicine 10/11/24
--- OUTSIDE RECORDS SUMMARY | 2025-01-04 12:09 | XMS_ITS | Clinical Summary ---
Author Organization [facility] Address [address] [facility] [address] [place] [address] Phone Care Team Providers Care Child Welfare Director Name Role Phone Rozina Nicole MD [...] Devices Not on file Insurance [place] [place] [place] [address] [place] [place] [address] [place] [place] [address] [place] [place] [address] [place] [place] [address] ACO Care Teams Child Welfare Director Relationship Specialty Start Date End Date Rozina Nicole MD [address] [place] [address] PCP - General 06/26/18 Additional Source Comments The information contained in this document represents components of the legal health record. It is not the complete legal health record.[facility]
--- OUTSIDE RECORDS SUMMARY | 2025-01-04 12:09 | XMS_ITS | Clinical Summary ---
Author Organization [facility] Address [address] [place] [address] [place] [address] Phone Care Team Providers Care Heel Seat Flap Stapler Name Role Phone Rozina Nicole MD Primary Care Provider [phone] Allergies Active Allergy Reactions Criticality Noted Date [...] ureter 05/02/2020 05/02/2020 Hypertensive heart disease w [facility] heart failure 05/02/2020 09/07/2020 Encounters Date Type Department Care Team Description 12/24/2024 Treatment [facility] [address] [facility] [address] [place] [phone] Jon Wang MD End stage renal disease; Dependence on renal dialysis 12/20/2024 Treatment [facility] [address] [facility] [address] [place] [phone] Jon Wang MD End stage renal disease; Dependence on renal dialysis 12/10/2024 Treatment [facility] [address] [phone] Jon Wang MD End stage renal disease; Dependence on renal dialysis 12/06/2024 Treatment [facility] [address] [phone] Jon Wang MD End stage renal disease; Dependence on renal dialysis 11/29/2024 Treatment [facility] [address] [phone] Jon Wang MD End stage renal disease; Dependence on renal dialysis 11/22/2024 Treatment [facility] [address] [phone] Jon Wang MD End stage renal disease; Dependence on renal dialysis 11/05/2024 Treatment [facility] [address] [phone] Jon Wang MD End stage renal disease; Dependence on renal dialysis 10/29/2024 Treatment [facility] [address] [phone] Jon Wang MD End stage renal disease; Dependence on renal dialysis 10/25/2024 Treatment [facility] [address] [phone] Jon Wang MD End stage renal disease; Dependence on renal dialysis 10/08/2024 Treatment [facility] [address] [phone] Jon Wang MD End stage renal disease; Dependence on renal dialysis 10/08/2024 Orders Only [facility] [address] [phone] Jon Wang MD from Last 3 Months [...] Priority Date/Time Associated Diagnosis Comments HEMOGLOBIN Routine 12/31/2024 3:00 AM EST HEMOGLOBIN AND HEMATOCRIT, BLOOD Routine 12/29/2024 3:00 AM EST LIH (HC) Routine 12/29/2024 3:00 AM EST POTASSIUM Routine 12/29/2024 3:00 AM EST CALCIUM, ADJUSTED W ALBUMIN Routine 12/29/2024 3:00 AM EST PTH, INTACT Routine 12/24/2024 3:00 AM EST LIH (HC) Routine 12/24/2024 3:00 AM EST POTASSIUM Routine 12/24/2024 3:00 AM EST LIH (HC) Routine 12/20/2024 3:00 AM EST [...] 3:00 AM EDT CREATININE, SERUM Routine 11/10/2024 3: 00 AM EDT GLUCOSE, RANDOM Routine 11/10/2024 3:00 [...] ( PHOSPHORUS) Routine 10/04/2024 3:00 AM EDT from Last 3 Months Results * (ABNORMAL) Hemoglobin (12/31/2024 3:00 AM EST) Only the most recent of5 resultswithin the time period is included. Hgb 10.1(L) 11.2 - 15.7 g/dL [facility] Hemoglobin x 3 30.3(L) 33.6 - 47.1 g/dL [facility] 12/31/2024 3:00 AM EST 01/01/2025 12:48 PM EST Jon Wang MD LAB BLOOD ORDERABLES Final Re sult [facility] [address] [place] [address] * LIH (12/29/2024 3:00 AM EST) Only the most recent of16 resultswithin the time period is included. Lipemia Normal Normal [facility] Icterus Normal Normal [facility] Hemolysis Normal Normal [facility] 12/29/2024 3:00 AM EST 12/30/2024 1:43 PM EST Jon Wang MD LAB [id number] SOLICITED RESULTS Final Result [facility] [address] [place] [address] * Calcium, Adjusted w Albumin (12/29/2024 3:00 AM EST) Calcium 9.7 8.6 - 10.3 mg/dL [facility] Albumin 4.0 3.6 - 5.4 g/dL [facility] Calcium, Adjusted Total 9.7 8.6 - 10.3 mg/dL [facility] 12/29/2024 3:00 AM EST 12/30/2024 1:43 PM EST Jon Wang MD LAB BLOOD ORDERABLES Final Re sult Performing Organization Address [facility] de Phone Number [facility] [address] [place] [address] * (ABNORMAL) Hemoglobin and hematocrit (12/29/2024 3:00 AM EST) Only the most recent of3 resultswithin the time period is included. Hgb 11.1(L) 11.2 - 15.7 g/dL [facility] Hematocrit 33.4(L) 34.1 - 44.9 % [facility] Hemoglobin x 3 33.3(L) 33.6 - 47.1 g/dL [facility] 12/29/2024 3:00 AM EST 12/30/2024 1:46 PM EST Jon Wang MD LAB BLOOD ORDERABLES Final Re sult Performing Organization Address [facility] de Phone Number [facility] [address] [place] [address] * Potassium (12/29/2024 3:00 AM EST) Only the most recent of10 resultswithin the time period is included. Potassium 4.6 3.4 - 5.0 mEq/L [facility] 12/29/2024 3:00 AM EST 12/30/2024 1:43 PM EST Jon Wagn MD LAB BLOOD ORDERABLES Final Re sult Performing Organization Address [facility] de Phone Number [facility] [address] [place] [address] * (ABNORMAL) PTH, Intact (12/24/2024 3:00 AM EST) Only the most recent of3 resultswithin the time period is included. PTH, Intact 937(H) 160 - 721 pg/mL [facility] Comment: Suggested (KDIGO) ESRD maintenance range is two to nine times the upper normal limit (80.1 pg/mL) for the laboratory. 12/24/2024 3:00 AM EST 12/25/2024 1:42 PM EST Jon Wang MD LAB BLOOD ORDERABLES Final Re sult Performing Organization Address [facility] Co de Phone Number [facility] [address] [place] [address] * (ABNORMAL) Kt/V Natural Log, URR (12/15/2024 3:00 AM EST) Only the most recent of6 resultswithin the time period is included. Treatment Time 184 min [facility] Pre-Weight, lb [...] 3:00 AM EST 12/16/2024 12:09 PM EST Jon Wang MD LAB [id number] SOLICITED RESULTS Final Result Performing Organization Address [facility] Co de Phone Number [facility] [address] [place] [address] * (ABNORMAL) Calcium Phosphorus Product, Adjusted (12/15/2024 [...] 12:20 PM EST Jon Wang MD LAB [id number] SOLICITED RESULTS Final Result Performing Organization Address [facility] Co de Phone Number [facility] [address] [place] [address] * Hepatitis B Surface Ag w/Reflex Confirmation (12/15/2024 3:00 AM EST) Only the most recent of3 resultswithin the time period is included. Hep B Surface Antigen Negative Negative [facility] 12/15/2024 3:00 AM EST 12/16/2024 12:20 PM EST Jon Wang MD LAB BLOOD ORDERABLES Final Re sult Performing Organization Address [facility] de Phone Number [facility] [address] [place] [address] * BUN/CREATININE RATIO (12/15/2024 3:00 AM EST) Only the most recent of3 resultswithin the time period is included. BUN/Creatinine Ratio 7.6 <=23.0 [facility] 12/15/2024 3:00 AM EST 12/16/2024 12:20 PM EST Jon Wang MD LAB [id number] SOLICITED RESULTS Final Result Performing Organization Address [facility] de Phone Number [facility] [address] [place] [address] * (ABNORMAL) TSAT (12/15/2024 3:00 AM EST) Only the most recent of3 resultswithin the time period is included. Iron 29(L) 50 - 170 ug/dL [facility] Transferrin 127(L) 250 - 380 mg/dL [facility] TIBC 178(L) 211 - 406 ug/dL [facility] Iron Saturation (TSat) 16(L) 22 - 52 % [facility] 12/15/2024 3:00 AM EST 12/16/2024 12:20 PM EST us Jon Wang MD LAB BLOOD ORDERABLES Final Re sult [facility] [address] [place] [address] * (ABNORMAL) CBC and Differential (12/15/2024 3:00 AM EST) Only the most recent of3 resultswithin the time period is included. [facility] DIFFERENTIAL MANUAL, 2 Not Indicated [facility] White [...] ORDERABLES Final Re sult Performing Organization Address [facility] de Phone Number [facility] [address] [place] [address] * ALT (12/15/2024 3:00 AM EST) Only the most recent of3 resultswithin the time period is included. ALT (SGPT) 10 10 - 49 U/L [facility] 12/15/2024 3:00 AM EST 12/16/2024 12:20 PM EST Jon Wang MD LAB BLOOD ORDERABLES Final Re sult Performing Organization Address [facility] de Phone Number [facility] [address] [place] [address] * AST (12/15/2024 3:00 AM EST) Only the most recent of3 resultswithin the time period is included. AST (SGOT) 13 <34 U/L [facility] 12/15/2024 3:00 AM EST 12/16/2024 12:20 PM EST Jon Wang MD LAB BLOOD ORDERABLES Final Re sult Performing Organization Address [facility] de Phone Number [facility] [address] [place] [address] * Protein, total (12/15/2024 3:00 AM EST) Only the most recent of3 resultswithin the time period is included. Total Protein 6.6 6.4 - 8.9 g/dL [facility] 12/15/2024 3:00 AM EST 12/16/2024 12:20 PM EST Jon Wang MD LAB BLOOD ORDERABLES Final Re sult Performing Organization Address [facility] Co de Phone Number [facility] [address] [place] [address] * (ABNORMAL) Alkaline phosphatase (12/15/2024 3:00 AM EST) Only the most recent of3 resultswithin the time period is included. Alkaline Phosphatase 149(H) 46 - 116 U/L [facility] 12/15/2024 3:00 AM EST 12/16/2024 12:20 PM EST Jon Wang MD LAB BLOOD ORDERABLES Final Re sult Performing Organization Address [facility] de Phone Number [facility] [address] [place] [address] * Magnesium (12/15/2024 3:00 AM EST) Only the most recent of3 resultswithin the time period is included. Magnesium 2.5 1.9 - 2.7 mg/dL [facility] 12/15/2024 3:00 AM EST 12/16/2024 12:20 PM EST us Jon Wang MD LAB BLOOD ORDERABLES Final Re sult Performing Organization Address [facility] de Phone Number [facility] [address] [place] [address] * Lactate dehydrogenase (12/15/2024 3:00 AM EST) Only the most recent of3 resultswithin the time period is included. LDH 165 120 - 246 U/L [facility] 12/15/2024 3:00 AM EST 12/16/2024 12:20 PM EST us Jon Wang MD LAB BLOOD ORDERABLES Final Re sult Performing Organization Address [facility] de Phone Number [facility] [address] [address] * Glucose, random (12/15/2024 3:00 AM EST) Only the most recent of3 resultswithin the time period is included. Glucose 76 70 - 99 mg/dL [facility] Comment: ADA guidelines outline the following fasting glucose ranges: Normal: <100 Prediabetes: 100-125 Diabetes: >125 12/15/2024 3:00 AM EST 12/16/2024 12:20 PM EST us Jon Wang MD LAB BLOOD ORDERABLES Final Re sult Performing Organization Address [facility] de Phone Number [facility] [address] [place] [address] * (ABNORMAL) Ferritin (12/15/2024 3:00 AM EST) Only the most recent of3 resultswithin the time period is included. Ferritin 456(H) 10 - 291 ng/mL [facility] 12/15/2024 3:00 AM EST 12/16/2024 12:20 PM EST Jon Wang MD LAB BLOOD ORDERABLES Final Re sult Performing Organization Address [facility] de Phone Number [facility] [address] [place] [address] * (ABNORMAL) Creatinine, serum (12/15/2024 3:00 AM EST) Only the most recent of3 resultswithin the time period is included. Creatinine 5.89(H) 0.55 - 1.02 mg/dL [facility] 12/15/2024 3:00 AM EST 12/16/2024 12:20 PM EST us Jon Wang MD LAB BLOOD ORDERABLES Final Re sult Performing Organization Address [facility] de Phone Number [facility] [address] [place] [address] * (ABNORMAL) Bilirubin, total (12/15/2024 3:00 AM EST) Only the most recent of3 resultswithin the time period is included. Total Bilirubin <0.2(L) 0.3 - 1.2 mg/dL [facility] 12/15/2024 3:00 AM EST 12/16/2024 12:20 PM EST Jon Wang MD LAB BLOOD ORDERABLES Final Re sult Performing Organization Address [facility] Co de Phone Number [facility] [address] [place] [address] * Electrolyte panel (12/15/2024 3:00 AM EST) Only the most recent of3 resultswithin the time period is included. Pathologist [facility] Sodium 138 136 - 145 mEq/L [facility] Potassium 4.8 3.4 - 5.0 mEq/L [facility] Chloride 102 98 - 107 mEq/L [facility] Bicarbonate (CO2) 23 21 - 31 mEq/L [facility] Anion Gap 13 3 - 14 mEq/L [facility] 12/15/2024 3:00 AM EST 12/16/2024 12:20 PM EST us Jon Wang MD LAB BLOOD ORDERABLES Final Re sult Performing Organization Address [facility] de Phone Number [facility] [address] [place] [address] * Hemoglobin A1c (11/10/2024 3:00 AM EDT) Pathologist [facility] Hemoglobin A1C 4.2 <5.7 % [facility] Comment: Methodology: Ion-exchange high-performance liquid chromatography (HPLC) Normal: <5.7% Prediabetes: 5.7-6.4% Diabetes: >6.4% Diabetic Glucose Control Evaluation: Therapeutic action suggested at >8.0% ADA recommends a glycemic goal of <7.0% 11/10/2024 3:00 AM EDT 11/11/2024 1:39 PM EDT us Jon Wang MD LAB BLOOD ORDERABLES Final Re sult Performing Organization Address [facility] de Phone Number [facility] [address] [place] [address] * (ABNORMAL) Lipid panel (11/10/2024 3:00 AM [...] ORDERABLES Final Re sult Performing Organization Address [facility] de Phone Number [facility] [address] [place] [address] * Phosphorus (10/04/2024 3:00 AM EDT) Phosphorus, Serum 3.2 2.5 - 5.0 mg/dL [facility] 10/04/2024 3:00 AM EDT 10/05/2024 11:59 AM EDT Jon Wang MD LAB BLOOD ORDERABLES Final Re sult Performing Organization Address [facility] de Phone Number [facility] [address] [place] [address] from Last 3 Months Insurance [place] Care Teams Heel Seat Flap Stapler Relationship Specialty Start Date End Date Rozina Nicole MD [address] [place], [place] PCP - General 02/21/20
--- OUTSIDE RECORDS SUMMARY | 2025-01-04 12:09 | XMS_ITS | Encounter Summary ---
Author Organization [facility] Address [address] [facility] [address] [place] [address] Phone Care Team Providers Care Registered Dental Assistant Rda Name Role Phone Rozina Nicole MD Primary Care Provider [phone] Reason for Visit * Reason Onset Date Comments Med Refill 11/23/2020 Encounter Details Date Type Department Care Team (Late st Contact Info) Description 11/23/2020 Refill [facility] [address] [facility] [address] [place] [phone] Nkechi Salvador, ALEX [address] [facility] [address] [place] [address] Social History Tobacco Use Types [...] on filedocumented in this encounter Care Teams Registered Dental Assistant Rda Relationship Specialty Start Date End Date Rozina Nicole MD [address] [place], [place] PCP - General 02/21/20 documented as of this encounter
== END ==
LOC: HO.CARD 10:03
PROVIDERS: PCP Internal Medicine; Visit Provider Internal Medicine
DX: R01.1 Cardiac murmur, unspecified (principal)
CPT/HCPCS: 93306

== ENCOUNTER → 2025-01-04 10:07 | Outpatient (BNV) | payer MEDICARE, MEDICAID, SELFPAY | PROVIDERS: PCP Internal Medicine; Visit Provider Internal Medicine | DX: I51.7 Cardiomegaly (principal); I35.8 Other nonrheumatic aortic valve disorders; I36.1 Nonrheumatic tricuspid (valve) insufficiency | CPT/HCPCS: 93306 ==

== ENCOUNTER 2025-01-12 14:24 | Emergency (ER) | payer MEDICARE, MEDICAID, SELFPAY ==
--- NOTE | ~2025-01-12 | CT_ITS ---
EXAMINATION: CT ABDOMEN AND PELVIS WITHOUT CONTRAST CLINICAL INFORMATION: abdominal pain, history of PUD, R/O perforation COMPARISON: 12/25/2024 TECHNIQUE: Multidetector volumetric imaging was performed from the superior aspect of the liver through the pubic symphysis. Sagittal and coronal reformatted images were obtained on the technologist's workstation. This CT examination was performed using dose optimization techniques as appropriate, variously including the following: *Automated exposure control *Adjustment of mA and/or kV according to patient size (this includes techniques or standardized protocols for targeted exams where dose is matched to indication/reason for exam; i.e. extremities or head) *Use of iterative reconstruction technique FINDINGS: LUNG BASES: Linear atelectasis is noted in the lung bases. LIVER, GALLBLADDER, AND BILIARY TREE: The liver is normal in size, shape, and attenuation. No focal hepatic lesion or biliary ductal dilatation is present. The gallbladder is unremarkable with no evidence of radiopaque gallstones, gallbladder wall thickening, or obvious pericholecystic inflammatory changes. PANCREAS: Unremarkable. SPLEEN: Unremarkable. ADRENAL GLANDS: Unremarkable. KIDNEYS AND URETERS: There is renal cortical thinning bilaterally. There is a 2 mm stone in the upper pole left kidney. There is a simple renal cyst in the right kidney. BLADDER: Unremarkable. GASTROINTESTINAL TRACT: Postsurgical changes are present with liza along the stomach likely with gastrojejunostomy. The appendix is not clearly identified. There is questionable thickening of jejunum just distal to the anastomosis. There is small amount of perihepatic free fluid, stranding throughout the mesentery, and small to moderate free fluid in the lower pelvis, increased from the prior. ABDOMINAL WALL: 2 small para-umbilical hernias containing adipose tissue. LYMPH NODES: Normal. VASCULAR: Moderate vascular calcifications are present. PELVIC VISCERA: There is a 1 cm calcification or ossification in the right ovary. Left ovary is grossly normal. Uterus surgically absent. OSSEOUS STRUCTURES: There is minimal grade 1 anterolisthesis at L4-5 and severe facet osteoarthritis at L4-5 and L5-S1. CT/CT abdomen pelvis wo IV con IMPRESSION: There is ascites with small to moderate fluid in the pelvis and small amount of perihepatic fluid is increased since the prior examination. Etiology is uncertain. There is questionable thickening of the jejunum just distal to gastrojejunostomy and mildly dilated loops of jejunum in the left abdomen likely from paralytic ileus though low-grade partial obstruction is not completely ruled out. Distal loops are not decompressed. There is also increased fat stranding throughout the mesentery. Differential considerations include infection and ischemia. Renal cortical thinning and nonobstructing 2 mm stone and superior pole left kidney. Fleischner guidelines were followed. Electronically signed by: Lee Dennis MD 01/12/2025 04:21 PM EST
--- NOTE | ~2025-01-12 | XR_ITS ---
CLINICAL HISTORY: end-stage renal disease, volume overload? 1 view chest x-ray Comparison: CR/SR - XR CHEST 1 VIEW - 12/02/24 11:59 EDT Findings: No consolidation or effusion. Mild increase of interstitial lung markings. Prominent right hilum. Normal size heart. Stent in the left arm. No acute fracture. IMPRESSION: Mild pulmonary vascular congestion. This document has been electronically signed by: Maria Isabel Yang MD on 01/12/2025 17:49:13
[2025-01-12 14:38] VITALS: BP 197/97; PULSE 105; O2SAT 99
[2025-01-12 14:42] VITALS: BP 207/95; PULSE 97; RESP 20; TEMP 36.7; O2SAT 94; BMI 22.0
--- NOTE | 2025-01-12 14:45 | ECG_ITS ---
Test Reason : CP/ABD PAIN Blood Pressure : */* mmHG Vent. Rate : 92 BPM Atrial Rate : 92 BPM P-R Int : 124 ms QRS Dur : 80 ms QT Int : 372 ms P-R-T Axes : 33 10 50 degrees QTcB Int : 460 ms Normal sinus rhythm Possible Left atrial enlargement Nonspecific ST abnormality Abnormal ECG When compared with ECG of 25-Dec-2024 12:35, No significant change was found Referred By: Efra Lee Electronically Signed By: MINO ROWE
--- NOTE | 2025-01-12 14:47 | ED.GENADULT ---
HPI - General Adult General Chief complaint: Abdominal Pain Stated complaint: abd pain, chills, missed dyalisis 1day Time Seen by Provider: 01/12/25 14:58 Source: patient Mode of arrival: ambulatory Limitations: no limitations History of Present Illness ED Provider: DR. Kim HPI narrative: 54-year-old female PMHx significant for ESRD on HD M/ W/ F, GI bleed due to PUD, gastric sleeve with multiple revision, GERD, , HLD, mood disorder, fibromyalgia, chronic pain patient presented today with severe abdominal pain started since 07:00 this morning followed by vomiting coffee-ground vomitus, patient is scheduled to have hemodialysis today could not make it secondary to the pain. No SOB, no CP, last normal bowel movement was yesterday , passing flatus. Related Data Home Medications ?Medication ?Instructions ?Recorded ?Confirmed ferrous sulfate 325 mg (65 mg 325 mg PO DAILY 05/11/20 12/28/24 iron) tablet,delayed release cyanocobalamin (vitamin B-12) 1,000 mcg PO DAILY 10/17/20 12/28/24 1,000 mcg tablet acetaminophen 500 mg capsule 1,000 mg PO Q8H PRN Pain 08/10/23 12/28/24 (Mapap (acetaminophen)) fluticasone propionate 50 1 spray intranasal DAILY PRN 08/10/23 12/28/24 mcg/actuation nasal Allergy Symptoms spray,suspension [id number] 45 mg-folic 1 cap PO DAILY 08/10/23 12/28/24 acid 800 mcg-vit K 120 mcg capsule (Bariatric Multivitamins) parenteral amino acid 15% no.5 15 0.5 ea IV MOWEFR@0900 08/10/23 12/28/24 % combination no.5 intravenous solution (Clinisol SF) zinc acetate 50 mg (zinc) capsule 100 mg PO DAILY 05/19/24 12/28/24 meclizine 12.5 mg tablet 12.5 mg PO TID PRN Nausea And 06/04/24 12/28/24 Vomiting clotrimazole-betamethasone 1 1 appl topical DAILY PRN Rash 09/20/24 12/28/24 %-0.05 % topical cream midodrine 5 mg tablet 5 mg PO TID PRN Hypotension 11/14/24 12/28/24 misoprostol 200 mcg tablet 200 mcg PO QID 11/14/24 12/28/24 omeprazole 40 mg capsule,delayed 40 mg PO BID@0630,1630 11/14/24 12/28/24 release pantoprazole 40 mg tablet,delayed 40 mg PO BID 12/03/24 12/28/24 release Previous Rx's ?Medication ?Instructions ?Recorded thiamine HCl (vitamin B1) 100 mg 100 mg PO DAILY 90 days #90 tabs 09/27/23 tablet vitamin A 2,400 mcg capsule 2,400 mcg PO DAILY 90 days #90 caps 02/05/24 citalopram 20 mg tablet 20 mg PO DAILY 90 days #90 tabs 09/08/24 melatonin 10 mg capsule 20 mg (2 x 10 mg) PO BEDTIME #90 09/20/24 caps pyridoxine (vitamin B6) 50 mg 50 mg PO DAILY 90 days #90 tabs 10/21/24 tablet gabapentin 400 mg capsule 400 mg PO BID 90 days #180 caps 11/10/24 docusate sodium 100 mg capsule 100 mg PO BID #60 caps 11/25/24 acetaminophen 300 mg-codeine 15 mg 1 tab PO DAILY PRN pain 30 days 12/22/24 tablet #20 tabs sucralfate 100 mg/mL oral 10 ml PO BID #600 mL 12/22/24 suspension ondansetron 4 mg disintegrating 4 mg PO Q8H PRN nausea and 12/28/24 tablet vomiting 30 days #90 tabs Allergies Allergy/AdvReac Type Severity Reaction Status Date / Time ibuprofen Allergy Severe Unknown Verified 01/12/25 14:45 nifedipine Allergy Intermediate hives, leg Verified 01/12/25 14:45 edema Review of Systems Review of Systems: All other systems are reviewed and are negative Constitutional: Reports as per HPI and Reports no additional constitutional complaints Eyes: Reports as per HPI and Reports no additional eye complaints Reports system reviewed and no additional complaints, except as documented Cardiovascular: Reports as per HPI and Reports no additional cardiovascular complaints Respiratory: Reports as per HPI and Reports no additional respiratory complaints Gastrointestinal: Reports as per HPI and Reports no additional gastrointestinal complaints Genitourinary: Reports no additional female genitourinary complaints Musculoskeletal: Reports no additional musculoskeletal complaints Skin/Breast: Reports system reviewed and no additional complaints, except as docu Psychiatric: Reports no additional psychiatric complaints Endocrine: Reports no additional endocrine complaints Hematologic/Lymphatic: Reports no additional hematologic/lymphatic complaints Allergic/Immunologic: Reports no additional allergic/immunologic complaints Reports system reviewed and no additional complaints, except as documented and Reports Abnormal speech present [facility] Past Medical History 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 Lumbar back pain with radiculopathy affecting left lower extremity Physical exam (~02/14/21) Peritoneal dialysis catheter in place Polyarthralgia Dyslipidemia Family history of ovarian cancer Abnormal mammogram of right breast Angina pectoris syndrome Chest pain Constipation Nephrosclerosis Renal interstitial fibrosis Obesity (BMI 30-39.9) Back pain GERD (gastroesophageal reflux disease) History of headache HTN (hypertension) Surgical History History of sleeve gastrectomy S/P arteriovenous (AV) graft placement Fistula Hx of colonoscopy Hx of hysterectomy Hx of tubal ligation History of endometrial ablation Family History Family History Father Asthma Mother Asthma Hypertension Ovarian cancer Maternal Grandfather Myocardial infarction Paternal Grandmother Stroke Social History Social History Household Members: Family Household Members Other:: 30 year old special needs son Housing: Apartment Are you a primary home health care coordinator to a significant other at home: No Do you presently have visiting nurse or other home services: No Alcohol intake: never Comment: low fall risk Patient Tobacco Use Status: Former Tobacco user Tobacco use type: Cigarette Cigarette Packs Per Day: 1 Cigarettes Per Day: 1 Years Smoked: 10+ e-Cigarette/Vaping Use: Never Used Second Hand Smoke Exposure: Yes Substance Use Type: Caffiene Advance Directives: Yes Advance Directives on File: Yes Advance Directives Date on File: 04/27/20 Do you have a plan to hurt others: No Plan service: No Current occupational status: employed Cognitive needs: No Hearing needs: No Vision needs: Yes (reading glasses) Physical Exam ED Vital Signs: Vital Signs - 24 hr 01/12/25 14:42 01/12/25 17:09 01/12/25 18:17 Temperature 98.0 F 98.1 F Pulse Rate 97 77 78 Respiratory Rate 20 16 16 Blood Pressure 207/95 H 157/69 H 157/69 H Pulse Oximetry 94 99 100 Oxygen Delivery Method Room Air Room Air Room Air 01/12/25 19:39 Temperature 98.5 F Pulse Rate 86 Respiratory Rate 14 Blood Pressure 142/70 H Pulse Oximetry 99 Oxygen Delivery Method Room Air BMI result Body Mass Index 22.0 Vital signs have been reviewed and appear to be correct. Blood pressure elevated. Heart rate normal. Respiratory rate normal. Temperature normal. Oxygen saturation normal. Appearance: Alert. Oriented X3. No acute distress. Head: Normal external exam. Normocephalic. Atraumatic. No Carver signs noted. No raccoon eyes noted Eyes: PERRLA. EOMI. Conjunctiva and sclera normal. Eyelids normal. ENT: TM's Normal. Pharynx normal. Uvula midline. Moist mucous membranes. No trismus noted. No drooling noted. No muffled voice noted. Neck: Normal inspection. Neck supple. FROM. No adenopathy. Thyroid Normal. No meningeal signs. No neck mass noted. CVS: Normal heart rate and rhythm. Heart sound normal. No murmurs noted. Pulses normal throughout. Respiratory: No respiratory distress. Painless inspiration. Breath sounds normal. No wheezes/rales/rhonchi noted. Chest nontender. No accessory muscle usage noted or decreased air movement noted. Abdomen: Soft and nontender. Bowel sounds normal in all 4 quadrants. No distention noted. No organomegaly noted. No visible injury noted. Back: No CVA tenderness. Full range of motion noted. Skin: Skin warm and dry. Normal skin color. Normal skin turgor. No rashes/lesions/lacerations noted. Extremities: No lower extremity edema. Extremities exhibit normal range of motion. Extremities nontender. Neuro: Oriented X 3. Cranial nerve exam: II-XII are grossly intact No motor deficit. No sensory deficit. Reflexes normal. Course Course Course Narrative: RME: 54-year-old female history renal disease on dialysis presents to ED for abdominal pain, chest pain, nausea, vomiting blood starting today. Patient states she is on Friday dialysis and she admits to dialysis today. EKG labs ordered Reevaluation(s) Reevaluation #1: 54-year-old female ESRD on hemodialysis missed her dialysis today for severe upper abdominal pain, patient is known PUD in the past already on PPI follow with Dr. Berry for healing peptic ulcers, came in today initially with severe epigastric abdominal pain with nausea and vomiting that improved with PPI and IV hydration, patient now has no abdominal pain, able to tolerate p.o. intake without nausea and vomiting, patient was able to scheduled for dialysis tomorrow in the a.m.. Patient feels much better for discharge. Patient is already on PPI at home was instructed to follow-up with her GI. Time: 20:31 Medications Administered Discontinued Medications Generic Name Dose Route Start Last Admin Trade Name Freq PRN Reason Stop Dose Admin Al Hydroxide/Mg Hydroxide 30 ml 01/12/25 15:04 01/12/25 15:13 Magnesium Hydrox/Alum Hydrox 30 Ml Oral.Susp PO 01/12/25 15:05 30 ml ONCE ONE Administration Hydromorphone HCl 1 mg 01/12/25 17:04 01/12/25 17:08 Hydromorphone Hcl 1 Mg/Ml Syringe IVPUSH 01/12/25 17:05 1 mg ONCE ONE Administration Protocol Acetaminophen 1,000 mg in 100 mls @ 400 mls/hr 01/12/25 15:04 01/12/25 15:35 Ofirmev IV 01/12/25 15:18 Infused ONCE ONE Infusion Pantoprazole Sodium 40 mg 01/12/25 15:04 01/12/25 15:13 Pantoprazole Sodium 40 Mg/10 Ml Vial IVPUSH 01/12/25 15:05 40 mg ONCE ONE Administration Sucralfate 1 gm 01/12/25 15:04 01/12/25 15:13 Sucralfate Oral Suspension 1 Gm/10 Ml Oral.Susp PO 01/12/25 15:05 1 gm ONCE ONE Administration Medical Decision Making Differential Diagnosis Differential Diagnoses: The differential diagnosis associated with the presentation includes ( Gastritis, gastroenteritis, pancreatitis, colitis, diverticulitis, electrolyte derangement, severe anemia, volume overload.) Admission/Observation Consideration of admission/observation: Escalation of care including admission/observation considered Lab Data MDM Lab Attestation statement: I reviewed the patient's lab results. 01/12/25 15:09 12/03/25 19:00 Labs: Lab Results 01/12/25 01/12/25 Range/Units 15:09 19:00 WBC 9.7 (4.8-10.8) X10*3/uL RBC 4.75 D (4.20-5.50) X10*6/uL Hgb 14.0 D (12.0-16.0) g/dl Hct 42.9 D (37.0-47.0) % MCV 90.3 (80.0-98.0) fL MCH 29.5 (27.0-33.0) pg MCHC 32.6 (31.0-35.0) g/dl RDW 16.3 H (11.0-16.0) % Plt Count 285 (160-400) X10*3/uL MPV 9.8 (9.4-12.3) fL Immature Gran % (Auto) 0.5 H (0.0-0.4) % Neut % (Auto) 83.6 H (45-73) % Lymph % (Auto) 10.1 L (20-40) % Butler % (Auto) 4.8 (2-11) % Eos % (Auto) 0.5 (0-4) % Baso % (Auto) 0.5 (0-2) % Lymph # (Auto) 1.0 L (1.2-4.9) X10*3/uL Butler # (Auto) 0.5 (0.1-1.2) X10*3/uL Eos # (Auto) 0.1 (0.0-0.4) X10*3/uL Baso # (Auto) 0.1 (0.0-0.2) X10*3/uL Abs Immat Gran (auto) 0.05 H (0.00-0.03) X10*3/uL Absolute Neuts (auto) 8.1 (2.0-8.3) x10*3/uL Absolute Nucleated RBC 0.000 (0.0-0.012) X10*3/uL Nucleated RBC % (auto) 0.0 (0.0-0.2) /100WBC PT 12.8 (11.2-13.5) SEC INR 1.0 (0.9-1.1) APTT 32.7 D (26.7-34.1) SEC Sodium 140 (135-145) mmol/L Potassium 4.1 D (3.3-5.1) mmol/L Chloride 102 (96-108) mmol/L Carbon Dioxide 26 (22-29) mmol/L Anion Gap 16 (12-20) BUN 26 H (9-16) mg/dL Creatinine 5.51 H* (0.5-1.4) mg/dL Estim Creat Clear Calc 10.6 Estimated GFR 8 Random Glucose 123 H (60-115) mg/dL Calcium 9.0 (8.4-10.2) mg/dL Total Bilirubin 0.3 (0.0-1.0) mg/dL AST 13 (5-31) U/L ALT 6 (0-31) U/L Alkaline Phosphatase 132 H (39-117) U/L Troponin I High Sens 13.5 D (<3.5-17.0) ng/L NT-Pro-B Natriuret Pep 60051.5 H (<300) pg/mL Total Protein 5.7 L (6.5-8.0) g/dL Albumin 3.4 L (3.5-5.0) g/dL Lipase 29 (8-78) U/L Independent Interpretation I performed an independent interpretation of an: Plain X-Ray ( chest: Mild pulmonary vascular congestion.) Radiology Impression Discussion of test interpretation with radiology: I have reviewed the radiologist's reading. Discharge Plan Discharge Clinical Impression: Peptic ulcer disease, Gastritis Patient Disposition: Home, Self-Care Instructions: Gastritis (ED) Additional Instructions: keep your appointment with dialysis tomorrow morning. Prescriptions: No Action thiamine HCl (vitamin B1) 100 mg tablet 100 mg PO DAILY 90 Days Qty: 90 0RF vitamin A 2,400 mcg capsule 2,400 mcg PO DAILY 90 Days Qty: 90 1RF citalopram 20 mg tablet 20 mg PO DAILY 90 Days Qty: 90 1RF melatonin 10 mg capsule 20 mg PO BEDTIME Qty: 90 0RF pyridoxine (vitamin B6) 50 mg tablet 50 mg PO DAILY 90 Days Qty: 90 1RF gabapentin 400 mg capsule 400 mg PO BID 90 Days Qty: 180 1RF docusate sodium 100 mg capsule 100 mg PO BID Qty: 60 3RF sucralfate 100 mg/mL suspension 10 ml PO BID Qty: 600 2RF ondansetron 4 mg tablet,disintegrating 4 mg PO Q8H PRN (Reason: nausea and vomiting) 30 Days Qty: 90 1RF cyanocobalamin (vitamin B-12) 1,000 mcg Tablet 1,000 mcg PO DAILY clotrimazole-betamethasone 1-0.05 % cream 1 appl topical DAILY PRN (Reason: Rash) acetaminophen [Mapap (acetaminophen)] 500 mg capsule 1,000 mg PO Q8H PRN (Reason: Pain) Clinisol SF 15 % 15 % parenteral solution 0.5 ea IV MOWEFR@0900 Rx Instructions: DIALYSIS MEDICATION Bariatric Multivitamins 45 mg iron- 800 mcg-120 mcg Capsule 1 cap PO DAILY fluticasone propionate 50 mcg/actuation spray,suspension 1 spray intranasal DAILY PRN (Reason: Allergy Symptoms) Rx Instructions: administer into each nostril zinc acetate 50 mg (zinc) Capsule 100 mg PO DAILY meclizine 12.5 mg Tablet 12.5 mg PO TID PRN (Reason: Nausea And Vomiting) misoprostol 200 mcg tablet 200 mcg PO QID omeprazole 40 mg capsule,delayed release(DR/EC) 40 mg PO BID@0630,1630 midodrine 5 mg tablet 5 mg PO TID PRN (Reason: Hypotension) pantoprazole 40 mg tablet,delayed release (DR/EC) 40 mg PO BID ferrous sulfate 325 mg (65 mg iron) tablet,delayed release (DR/EC) 325 mg PO DAILY acetaminophen-codeine 300-15 mg tablet 1 tab PO DAILY PRN (Reason: pain) 30 Days Qty: 20 0RF Referrals: Rozina Nicole MD [Primary Care Provider, Internal Medicine] Interventions: ED Discharge Assessment Last Done: 01/12/25 20:44 Discharge Date/Time: 01/12/25 20:44 Print Language: Syriac
[2025-01-12 15:12] LABS: MANUAL DIFF FLAG NO
[2025-01-12] MEDS: Sucralfate Oral Suspension 1 GM/10 ML ORAL.SUSP PO (15:13)
[2025-01-12] MEDS: Magnesium Hydrox/Alum Hydrox 30 ML ORAL.SUSP PO (15:13)
[2025-01-12 15:22] LABS: Hematocrit 42.9 % (37.0-47.0); Hemoglobin 14.0 g/dl (12.0-16.0); Imm Gran Abs Auto 0.05 X10*3/uL (0.00-0.03); Imm Gran Pct Auto 0.5 % (0.0-0.4); Lymphocytes Absolute Auto 1.0 X10*3/uL (1.2-4.9); Mean Corpuscular HGB Conc 32.6 g/dl (31.0-35.0); Mean Corpuscular Hemoglobin 29.5 pg (27.0-33.0); Mean Corpuscular Volume 90.3 fL (80.0-98.0); NRBC Abs Auto 0.000 X10*3/uL (0.0-0.012); NRBC Pct Auto 0.0 /100WBC (0.0-0.2); Platelet Count 285 X10*3/uL (160-400); Red Blood Count 4.75 X10*6/uL (4.20-5.50); White Blood Count 9.7 X10*3/uL (4.8-10.8)
[2025-01-12 15:33] LABS: INTERNATIONAL NORM RATIO 1.0 (0.9-1.1); Prothrombin Time 12.8 SEC (11.2-13.5)
[2025-01-12 15:35] LABS: Partial Thromboplastin Time 32.7 SEC (26.7-34.1)
[2025-01-12 15:41] LABS: Troponin-I High Sensitivity 13.5 ng/L (<3.5-17.0)
[2025-01-12 17:09] VITALS: BP 157/69; PULSE 77; RESP 16; O2SAT 99
[2025-01-12 18:17] VITALS: BP 157/69; PULSE 78; RESP 16; TEMP 36.7; O2SAT 100
--- OUTSIDE RECORDS SUMMARY | 2025-01-12 18:22 | XMS_ITS | Clinical Summary ---
Author Organization [facility] Address [address] [place] [address] Care Team Providers Care Logging Assistant Name Role Phone Rozina Nicole MD Primary Care Provider [phone] Jon Wang MD Unavailable [phone] Allergies No known active allergies Medications [...] Description 10/13/2024 8:31 PM EDT Anesthesia Event [facility] [address] [place] [address] Enmanuel Fisher MD 10/13/2024 8:00 PM EDT - 10/13/2024 9:51 PM EDT Surgery [facility] [address] [place] [address] David Harrell MD LAPAROSCOPY DIAGNOSTIC, LYSIS OF ADHESIONS 10/11/2024 1:59 AM EDT - 10/19/2024 4:00 PM EDT Hospital Encounter [facility] [address] [place] [address] Aniket Chand III, Roberta Gutiérrez MD Elajami, [...] Exposure: Past Tobacco Cessation:Counseling Given: Not Answered [facility] Utilities Answer Date Recorded In the past 12 months has [employer], or water [employer] threatened to shut off services in your [...] any time in the past 12 m [facility], were you homeless or living in a correction (including now)? No 10/11/2024 Comments Unknown Sex [...] W/O CONTRAST Routine 10/13/2024 2:35 AM EDT from Last 3 Months Results * (ABNORMAL) Complete Blood Count WITH Differential - in AM (10/18/2024 7:19 AM EDT) Only the most recent of3 resultswithin the time period is included. White Blood Cell Count 4.4 4.0 - 11.0 Thou/uL 10/18/2024 8:09 AM [facility] Platelet Count 275 150 - 450 Thou/uL 10/18/2024 8:09 AM [facility] Hemoglobin 8.2(L) 11.7 - 15.7 g/dL 10/18/2024 8:09 AM [facility] Hematocrit 25.4(L) 35.0 - 47.0 % [...] [facility] Lymphocytes Auto 29.9 % 10/19/19 25 8:09 AM [facility] Monocytes Auto 9.4 % 10/18/2024 8:09 AM [facility] Eosinophils Auto 4.3 % 10/19/19 25 8:09 AM [facility] Basophils Auto 0.9 % [facility]24 [facility] Neutrophils Auto 2.41 2.00 - [...] Amaya MD LAB BLOOD [place] [address], [place] [address] * (ABNORMAL) Basic Metabolic Panel (10/18/2024 7:19 AM EDT) Only the most recent of7 resultswithin the time period is included. Glucose [...] 136 - 145 mmol/L 10/18/2024 8:29 AM EDT [facility] Potassium 3.6 3.4 - 5.3 mmol/L 10/18/2024 8:29 AM [facility] Chloride 103 98 - 107 mmol/L 10/18/2024 8:29 AM EDT [facility] CO2 26 22 - 33 mmol/L 10/18/2024 8:29 AM T [facility] Anion Gap 8 7 - 17 [...] Amaya MD LAB BLOOD [place] [address], [place] [address] * Transfuse RBC's: (10/15/2024 9:14 PM EDT) us Arina Amaya MD BLOOD TRANSFUSION ORDERABL ES Final Result * Type and Screen (10/15/2024 2:19 PM EDT) ABO/Rh O POSITIVE 10/15/2024 4:38 PM EDT [facility] Antibody Screen NEGATIVE 10/15/2024 4:38 PM EDT [facility] Specimen Expiration 10/18/2024 10/15/2024 4:38 PM EDT [facility] Unit Number [id number] 10/15/2024 6:22 PM EDT [facility] Blood Component Type LR RBC CONTAINER 2 10/15/2024 6:22 PM EDT [facility] Unit Division 00 10/15/2024 6:22 PM EDT [facility] Unit Status ISSUED,FINAL 10/16/2024 12:08 AM EDT [facility] Transfusion Status OK TO TRANSFUSE 10/15/2024 6:22 PM EDT [facility] Crossmatch Result Electronically Compatible 10/15/2024 6:22 PM EDT [facility] Blood Blood specimen / Unknown 10/15/2024 2:19 PM EDT 10/15/2024 3:38 PM EDT Comment:Blood Arina Amaya MD BLOOD BANK TEST ORDERABLES Final Result [facility] See Below [address] [address] * Prepare RBC's:Prepare in: Units; Number of [...] of3 resultswithin the time period is included. White Blood Cell Count 4.1 4.0 - 11.0 Thou/uL 10/15/2024 8:55 AM EDT [facility] Platelet Count 218 150 - 450 Thou/uL 10/15/2024 8:55 AM EDT [facility] Hemoglobin 7.0(L) 11.7 - 15.7 g/dL 10/15/2024 8:55 AM EDT [facility] Hematocrit 21.8(L) 35.0 - 47.0 % [...] MD LAB BLOOD [place]ABLES [place] [address], [place] [address] * Phosphorus (10/15/2024 7:57 AM EDT) Phosphorus 3.8 2.7 - 4.5 mg/dL 10/15/2024 11:43 AM EDT [facility] 10/15/2024 7:57 AM EDT 10/15/2024 8:[address] Foss MD LAB BLOOD [place]ABLES [place] [address], [place] [address] * Magnesium (10/15/2024 7:57 AM EDT) Only the most recent of2 resultswithin the time period is included. Magnesium 1.8 1.6 - 2.7 mg/dL 10/15/2024 10:04 AM EDT [facility] Blood Blood specimen / Unknown 10/15/2024 7:57 AM EDT 10/15/2024 8:[address] Foss MD LAB BLOOD [place]AB[place] [address], [address] [address] * (ABNORMAL) TRANSFERRIN (10/14/2024 10:10 AM EDT) Transferrin 125(L) 200 - 360 mg/dL 10/14/2024 12:13 PM EDT [facility] Blood Blood specimen / Unknown 10/14/2024 10:10 AM EDT 10/14/2024 11:23 AM EDT us David Harrell MD LAB BLOOD ORDERABLES Final R esult Performing Organization Address [facility] [place] [address], [address] [address] * PREALBUMIN (10/14/2024 10:10 AM EDT) Prealbumin 24 20 - 40 mg/dL 10/14/2024 12:13 PM EDT [facility] Blood Blood specimen / Unknown 10/14/2024 10:10 AM EDT 10/14/2024 11:23 AM EDT us David Harrell MD LAB BLOOD ORDERABLES Final R esult [address] [address], [address] [address] * (ABNORMAL) ALBUMIN (10/14/2024 10:10 AM EDT) Albumin 3.1(L) 3.5 - 5.0 g/dL 10/14/2024 12:13 PM EDT [facility] Blood Blood specimen / Unknown 10/14/2024 10:10 AM EDT 10/14/2024 11:23 AM EDT us David Harrell MD LAB BLOOD ORDERABLES Final R esult Performing Organization Address City/[facility]/ZIP Co de Phone Number [address] [address], [address] [address] * Nicotine, Cotinine, Serum (10/14/2024 5:50 AM EDT) Pathologist [facility] Nicotine <2 ng/mL 10/19/2024 9:54 AM EDT [employer] Comment: (NOTE) Reference Ranges(ng/mL): Non-Smoker Active Tobacco User < or = to 4 2-10 Cotinine <2 ng/mL 10/19/2024 9:54 AM EDT [facility] Comment: (NOTE) Reference Ranges(ng/mL): Non-Smoker Active Tobacco User < or = to 8 16-145 This test was developed and its analytical performance characteristics have been determined by [employer] [place], [place]. It has not been cleared or approved by the U.S. Food and Drug Administration. This assay has been validated pursuant to the CLIA regulations and is used for clinical purposes. Blood Blood specimen / Unknown 10/14/2024 5:50 AM EDT 10/14/2024 6:22 AM EDT us David Harrell MD LAB BLOOD ORDERABLES Final R esult [employer] [place] [address] [facility] [address] [address] [place], [place] , [facility] [address] [facility] [address] [address] [place], [place] * ANES INTUBATION (10/13/2024 8:59 PM EDT) Narrative Lacy, Jon, STRATEGIC BUSINESS DEVELOPMENT - 10/13/2024 8:59 PM EDT Jon House CRNA 10/13/2024 8:59 PM Anesthesia Procedure Note - intubation Patient Name: Meliza Perry : 1970 Patient location: [place] Procedure diagnosis: Anesthesia Performed by: Resident/STRATEGIC BUSINESS DEVELOPMENT Preanesthetic Checklist . Patient's pre-procedure mental status: [...] change with DL us Enmanuel Fisher MD [place] ANESTHESIA Final Result * CT Abdomen+pelvis w [...] VISCERA: Unremarkable. OSSEOUS STRUCTURES: Unremarkable. Procedure Note Mayr Salinas MD - 10/13/2024 EXAMINATION: CTA ABDOMEN [...] MD IMG CT ORDERABLES Final Resul t from Last 3 Months Insurance [facility] MEDICARE PART A & B [facility] MEDICARE PART A & B [facility] MEDIC[facility] PART A & B Advance Directives * Full Code (Latest Code Status on File) Date Activated Date Inactivated Comments 10/11/2024 5:25 AM Care Teams Logging Assistant Relationship Specialty Start Date End Date Rozina Nicole MD [address] [place] [address] PCP - General Family Medicine 10/11/24 Jon Wang MD [address] [facility] [address] [place] [address] Physician Internal Medicine 10/11/24
--- OUTSIDE RECORDS SUMMARY | 2025-01-12 18:22 | XMS_ITS | Clinical Summary ---
Author Organization [facility] Address [address] [facility] [address] [place] [id number] Phone Care Team Providers Care It Desktop Support Technician Name Role Phone Rozina Nicole MD Primary [...] Devices Not on file Insurance [place] [address] [place] [address] [place] [address] [place] [address] [place] [place] [address] [place] [address] [place] [address] [place] [address] [place] [address] [place] [address] [place] [address] Care Teams It Desktop Support Technician Relationship Specialty Start Date End Date Rozina Nicole MD [address] [place] [address] PCP - General 06/26/18 Additional Source Comments The information contained in this document represents components of the legal health record. It is not the complete legal health record.[facility]
[2025-01-12 19:39] VITALS: BP 142/70; PULSE 86; RESP 14; TEMP 36.9; O2SAT 99
[2025-01-12 20:25] LABS: Alanine Aminotransferase 6 U/L (0-31); Albumin Level 3.4 g/dL (3.5-5.0); Alkaline Phosphatase 132 U/L (39-117); Anion Gap 16 (12-20); Aspartate Amino Transferase 13 U/L (5-31); Blood Urea Nitrogen 26 mg/dL (9-16); Calcium 9.0 mg/dL (8.4-10.2); Carbon Dioxide 26 mmol/L (22-29); Chloride 102 mmol/L (96-108); Creatinine Clr Calc Pharmacy 10.6; Estimated Glomerular Filt Rate 8; Lipase 29 U/L (8-78); Potassium 4.1 mmol/L (3.3-5.1); Sodium 140 mmol/L (135-145); Total Protein 5.7 g/dL (6.5-8.0)
[2025-01-12 20:44] VITALS: BP 142/70; PULSE 86; RESP 14; TEMP 36.9; O2SAT 99
== END 2025-01-12 20:44 | disposition home or self-care (01) ==
PROVIDERS: Physician Assistant; Emergency Provider Emergency Medicine; PCP Internal Medicine
DX: K27.9 Peptic ulcer, site unspecified, unspecified as acute or chronic, without hemorrhage or perforation (principal); K29.70 Gastritis, unspecified, without bleeding; K21.9 Gastro-esophageal reflux disease without esophagitis; E78.5 Hyperlipidemia, unspecified; Z87.891 Personal history of nicotine dependence; R07.9 Chest pain, unspecified; R10.9 Unspecified abdominal pain; I12.0 Hypertensive chronic kidney disease with stage 5 chronic kidney disease or end stage renal disease; N18.6 End stage renal disease
CPT/HCPCS: 36415; 71045; 74176; 80053; 83690; 83880; 84484; 85025; 85610; 85730; 93005; 96365; 96375; 99284; 99285; J0131; J1171; J2470

== ENCOUNTER → 2025-01-12 14:45 | Outpatient (BNV) | payer MEDICARE, MEDICAID, SELFPAY | PROVIDERS: Emergency Provider Emergency Medicine; PCP Internal Medicine; Visit Provider Internal Medicine | DX: R94.31 Abnormal electrocardiogram [ECG] [EKG] (principal); R07.9 Chest pain, unspecified; R10.9 Unspecified abdominal pain | CPT/HCPCS: 93010 ==

== ENCOUNTER → 2025-01-12 15:04 | Outpatient (BNV) | payer MEDICARE, MEDICAID, SELFPAY | PROVIDERS: Emergency Provider Emergency Medicine; PCP Internal Medicine; Visit Provider Radiology Diagnostic Radiology | DX: N20.0 Calculus of kidney (principal); R18.8 Other ascites | CPT/HCPCS: 71045; 74176 ==

== ENCOUNTER 2025-01-21 20:03 | Observation (INO) | payer MEDICARE, MEDICAID, SELFPAY ==
--- NOTE | 2025-01-21 | ECG_ITS ---
Test Reason : abdomainal pain Blood Pressure : */* mmHG Vent. Rate : 92 BPM Atrial Rate : 92 BPM P-R Int : 124 ms QRS Dur : 78 ms QT Int : 382 ms P-R-T Axes : 50 18 57 degrees QTcB Int : 472 ms Normal sinus rhythm Possible Left atrial enlargement Borderline ECG When compared with ECG of 12-Jan-2025 15:13, No significant change was found Referred By: Generic ED Physician Electronically Signed By: CHARLY ODELL MD
--- NOTE | ~2025-01-21 | CT_ITS ---
CLINICAL HISTORY: abd pain, n v; s p RYGB CT abdomen and pelvis with contrast Comparison: CT/REG/SR - CT ABDOMEN PELVIS WO IV CON - 12/25/24 14:39 EST Findings: Linear left basilar subsegmental atelectasis or pleural-parenchymal scarring. No focal hepatic lesion. Gallbladder and pancreas are within normal limits. Spleen is unremarkable. The adrenal glands are within normal limits. Kidneys are hypoplastic or atrophic and non hydronephrotic. Postsurgical changes are present from gastric bypass with small bowel anastomotic sutures in the left abdomen. Contrast opacifies small bowel loops and right colon. Atherosclerotic vascular calcifications are present. Pelvic contents unremarkable. Normal appendix. No acute fracture. IMPRESSION: No acute findings. This document has been electronically signed by: Juan Tobar MD, PHD on 01/22/2025 04:29:10
--- NOTE | ~2025-01-21 | CT_ITS ---
CLINICAL HISTORY: throat pain, swollen lymph nodes, vomiting Exam: Unenhanced CT neck soft tissues with multiplanar reformats. Comparison: None. Findings: Mucosal structures reveal no definable mucosal thickening or mucosal lesions. No definable neck masses or adenopathy are appreciated. Salivary glands reveal bilateral symmetric fullness of the submandibular glands with surrounding stranding, suggesting bilateral submandibular sialadenitis. No definable sialolithiasis. No other significant stranding. No circumscribed collection or evidence of abscess. Thyroid gland appears unremarkable. Visualized pulmonary apices are clear. Visualized brain parenchyma reveals no gross acute abnormalities. Visualized paranasal sinuses and mastoid air cells are clear. Osseous structures reveal no destructive osseous lesions. Cervical degenerative changes are present, more significant C4-6. Impression: 1. Symmetric fullness of the bilateral submandibular glands with surrounding stranding, suggesting bilateral submandibular sialadenitis. No sialolithiasis is appreciated. This document has been electronically signed by: Rolf Alanis MD on 01/22/2025 15:30:57
[2025-01-21 20:05] VITALS: BP 200/70; PULSE 93; O2SAT 97
--- NOTE | 2025-01-21 20:20 | ED_ITS ---
HPI - General Adult General Chief complaint: Abdominal Pain Stated complaint: N/V, Abd pain Time Seen by Provider: 01/21/25 22:59 Source: patient Limitations: no limitations History of Present Illness HPI narrative: 54-year-old female, end-stage renal disease, hemodialysis Friday followed by Dr. Wang, last session completed today, history of gastric sleeve followed by Sae-en-Y gastric bypass, history of GI bleed, And anemia, presents for evaluation of abdominal pain nausea and vomiting. Patient states shortly after dialysis this morning she began to have persistent nausea and vomiting. She had associated diffuse cramping abdominal pain with episodes of sharp that radiated towards her back. She reports having history of similar symptoms in the past. She reports admission to the hospital previously. She denies any fevers or chills. She has been eating and drinking normally prior to this. She continues to make urine. She took Zofran and simethicone at home. Related Data Home Medications ?Medication ?Instructions ?Recorded ?Confirmed ferrous sulfate 325 mg (65 mg 325 mg PO DAILY 05/11/20 01/22/25 iron) tablet,delayed release cyanocobalamin (vitamin B-12) 1,000 mcg PO DAILY 10/1701/22/25 1,000 mcg tablet fluticasone propionate 50 1 spray intranasal DAILY PRN 08/10/23 01/22/25 mcg/actuation nasal Allergy Symptoms spray,suspension [id number]-[id number] 45 mg-folic 1 cap PO DAILY 07/1301/22/25 acid 800 mcg-vit K 120 mcg capsule (Bariatric Multivitamins) parenteral amino acid 15% no.5 15 0.5 ea IV MOWEFR@090 0 08/10/23 01/22/25 % combination no.5 intravenous solution (Clinisol SF) zinc acetate 50 mg (zinc) capsule 100 mg PO DAILY 11/0401/22/25 meclizine 12.5 mg tablet 12.5 mg PO TID PRN Nausea An d 06/04/24 01/22/25 Vomiting clotrimazole-betamethasone 1 1 appl topical DAILY PRN Rash 09/20/24 01/22/25 %-0.05 % topical cream pantoprazole 40 mg tablet,delayed 40 mg PO BID 5 01/22/25 release cyanocobalamin (vitamin B-12) 1,000 mcg PO DAILY 01/2201/22/25 1,000 mcg tablet gabapentin 400 mg capsule 400 mg PO TID 01/22/2501/22 triamcinolone acetonide 0.1 % 1 appl topical BID-TID 1 03/25/24 01/22/25 topical cream Previous Rx's ?Medication ?Instructions ?Recorded thiamine HCl (vitamin B1) 100 mg 100 mg PO DAILY 90 da ys #90 tabs 09/27/23 tablet vitamin A 2,400 mcg capsule 2,400 mcg PO DAILY 90 days #90 caps 02/05/24 citalopram 20 mg tablet 20 mg PO DAILY 90 days #90 t abs 09/08/24 melatonin 10 mg capsule 20 mg (2 x 10 mg) PO BEDTIME #90 09/20/24 caps pyridoxine (vitamin B6) 50 mg 50 mg PO DAILY 90 days # 90 tabs 10/21/24 tablet docusate sodium 100 mg capsule 100 mg PO BID #60 caps 11/25/24 sucralfate 100 mg/mL oral 10 ml PO BID #600 mL 5 suspension ondansetron 4 mg disintegrating 4 mg PO Q8H PRN nausea and 12/28/24 tablet vomiting 30 days #90 tabs acetaminophen 300 mg-codeine 15 mg 1 tab PO DAILY PRN pain 30 days 01/17/25 tablet #20 tabs sucralfate 1 gram tablet (Carafate) 1 g PO QID PRN dys pepsia #15 tabs 01/22/25 alcohol swabs 1 pad topical QIDACHS #100 e a 01/23/25 amoxicillin 500 mg-potassium 1 tab PO Q12H #20 tabs clavulanate 125 mg tablet blood sugar diagnostic (FreeStyle #100 ea 01/23/25 Lite Strips) blood-glucose meter (FreeStyle #1 ea 01/23/25 Lite Meter kit) dextrose 40 % oral gel (Glucose 10 g PO Q15M PRN hypoc alcemia 01/23/25 Gel) #112.5 grams lancets 28 gauge (FreeStyle #100 ea 01/23/25 Lancets) misoprostol 200 mcg tablet 200 mcg PO QID #28 tabs Allergies Allergy/AdvReac Type Severity Reaction Status Date / Time ibuprofen Allergy Severe Unknown Verified 01/21/25 20:27 nifedipine Allergy Intermediate hives, leg Verified 01/21/25 20:27 edema Review of Systems 2 Review of Systems: Yes all other systems are reviewed and are negative Constitutional: Constitutional: Denies fever(s) Cardiovascular: Cardiovascular: Denies chest pain Respiratory: Respiratory: Denies cough Gastrointestinal: Gastrointestinal: Reports abdominal pain, Denies constipation, Reports vomiting and Denies hematemesis [facility] Past Medical History 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 Lumbar back pain with radiculopathy affecting left lower extremity Physical exam (~02/14/21) Peritoneal dialysis catheter in place Polyarthralgia Dyslipidemia Family history of ovarian cancer Abnormal mammogram of right breast Angina pectoris syndrome Chest pain Constipation Nephrosclerosis Renal interstitial fibrosis Obesity (BMI 30-39.9) Back pain GERD (gastroesophageal reflux disease) History of headache HTN (hypertension) Surgical History History of sleeve gastrectomy S/P arteriovenous (AV) graft placement Fistula Hx of colonoscopy Hx of hysterectomy Hx of tubal ligation History of endometrial ablation Family History Family History Father Asthma Mother Asthma Hypertension Ovarian cancer Maternal Grandfather Myocardial infarction Paternal Grandmother Stroke Social History Social History Household Members: Family and Children Household Members Other:: 30 year old special needs son Housing: Apartment Are you a primary rn coronary care unit to a significant other at home: No Do you presently have visiting nurse or other home services: Yes (nephew is [employer] E[employer] OFFICER) Alcohol intake: never Comment: low fall risk Patient Tobacco Use Status: Former Tobacco user Tobacco use type: Cigarette Cigarette Packs Per Day: 1 Cigarettes Per Day: 1 Years Smoked: 10+ e-Cigarette/Vaping Use: Never Used Second Hand Smoke Exposure: Yes Substance Use Type: Caffiene Advance Directives Date on File: 04/27/20 service: No Current occupational status: employed Cognitive needs: No Hearing needs: No Vision needs: Yes (reading glasses) Physical Exam ED Vital Signs: Vital Signs - 24 hr 01/21/25 20:26 01/21/25 22:14 01/22/25 00:16 Temperature 98.5 F 98.3 F 98.4 F Pulse Rate 94 87 92 Respiratory Rate 18 15 Blood Pressure 211/62 H 158/83 H 173/94 H Pulse Oximetry 94 96 94 Oxygen Delivery Method Room Air Room Air Room Air 01/22/25 02:40 01/22/25 04:50 01/22/25 06:37 Temperature 98.4 F 98.6 F 98.4 F Pulse Rate 96 91 95 Respiratory Rate 17 17 Blood Pressure 157/75 H 188/98 H 173/95 H Pulse Oximetry 94 96 94 Oxygen Delivery Method Room Air Room Air Room Air BMI result Body Mass Index 21.5 Const General: alert and awake Resp Other: Lung sounds clear throughout Cardio Other: regular rate and rhythm GI Other: diffuse tenderness throughout the abdomen. There was no rigidity. No peritoneal signs. No CVAT. Extrem Other: Full range of motion of all joints. 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 No spinous, paraspinous or paravertebral tenderness. Course Course Course Narrative: January 21, 2025, 9:30 p.m. patient with good improvement after analgesia. January 22, 2025, 1:00 a.m. patient with return of abdominal pain, we will repeat dose. January 22, 2025, 1:55 a.m. patient signed out in stable condition with CT pending and reassessment to Willow Guerrero PA-C Reevaluation(s) Reevaluation #1: I Morelia Holland PA-C have accepted care of the patient at signed out pending CT scan abdomen and pelvis and final disposition CT abdomen and pelvis:Findings: Linear left basilar subsegmental atelectasis or pleural-parenchymal scarring. No focal hepatic lesion. Gallbladder and pancreas are within normal limits. Spleen is unremarkable. The adrenal glands are within normal limits. Kidneys are hypoplastic or atrophic and non hydronephrotic. Postsurgical changes are present from gastric bypass with small bowel anastomotic sutures in the left abdomen. Contrast opacifies small bowel loops and right colon. Atherosclerotic vascular calcifications are present. Pelvic contents unremarkable. Normal appendix. No acute fracture. IMPRESSION: No acute findings. Medications Administered Discontinued Medications Generic Name Dose Route Start Last Admin Trade Name Freq PRN Reason Stop Dose Admin Amoxicillin/Clavulanate Potassium 500 mg 01/23/25 18:30 01/23/25 18:30 Amoxicillin/Potassium Clav 500 Mg Tablet PO 500 mg Q12H GERARDO Administration Calcium Carbonate 750 mg 01/22/25 07:44 01/22/25 12:40 Calcium Carbonate 750 Mg Tab.Chew PO 750 mg Q4H PRN Administration Heartburn Cyanocobalamin 1,000 mcg 01/22/25 09:00 01/23/25 08:51 Cyanocobalamin (Vitamin B-12) 1,000 Mcg Tablet PO 1,000 mcg DAILY GERARDO Administration Dextrose 25 gm 01/23/25 06:38 01/23/25 06:48 Dextrose 50 % 25 Gm/50 Ml Syringe IVPUSH 01/23/25 06:39 25 gm ONCE ONE Administration Diatrizoate Meglum/Diatrizoate Sod 30 ml 01/21/25 23:56 01/21/25 23:57 Diatrizoate Meglumine, Sodium 30 Ml Solution PO 01/21/25 23:57 30 ml ONCE ONE Administration Diphenhydramine HCl 25 mg 01/22/25 17:03 01/22/25 17:21 Diphenhydramine Hcl 50 Mg/Ml Vial IVPUSH 01/22/25 17:04 25 mg ONCE ONE Administration Diphenhydramine HCl 25 mg 01/23/25 03:05 01/23/25 03:20 Diphenhydramine Hcl 25 Mg Capsule PO 01/23/25 03:06 25 mg ONCE ONE Administration Docusate Sodium 100 mg 01/22/25 09:00 01/23/25 08:51 Docusate Sodium 100 Mg Capsule PO 100 mg BID GERARDO Administration Escitalopram Oxalate 10 mg 01/22/25 09:00 01/23/25 08:51 Escitalopram Oxalate 10 Mg Tablet PO 10 mg DAILY GERARDO Administration Ferrous Sulfate 324 mg 01/22/25 09:00 01/23/25 08:51 Ferrous Sulfate 324 Mg Tablet.Dr PO 324 mg DAILY GERARDO Administration Gabapentin 400 mg 01/22/25 09:00 01/23/25 14:56 Gabapentin 400 Mg Capsule PO 400 mg TID GERARDO Administration Hydromorphone HCl 1 mg 01/21/25 20:28 01/21/25 20:42 Hydromorphone Hcl 1 Mg/Ml Syringe IVPUSH 01/21/25 20:29 1 mg ONCE ONE Administration Protocol Hydromorphone HCl 1 mg 01/22/25 01:03 01/22/25 01:19 Hydromorphone Hcl 1 Mg/Ml Syringe IVPUSH 01/22/25 01:04 1 mg ONCE ONE Administration Protocol Hydromorphone HCl 0.5 mg 01/22/25 12:47 01/23/25 14:56 Hydromorphone Hcl 1 Mg/Ml Syringe IVPUSH 0.5 mg Q3H PRN Administration Pain, Severe (Pain Scale 7-10) Protocol Sodium Chloride 1,000 mls @ 999 mls/hr 01/21/25 20:30 01/21/25 21:45 Ns IV 01/21/25 21:30 Infused .Q1H1M GERAROD Infusion Sodium Chloride 1,000 mls @ 999 mls/hr 01/22/25 06:31 01/22/25 09:03 Ns IVCONT 01/22/25 07:31 Infused .Q1H1M ONE Infusion Ampicillin Sodium/Sulbactam 100 mls @ 200 mls/hr 01/22/25 18:00 01/23/25 18:27 Sodium 1.5 gm/ Sodium Chloride IV Infused Q6H GERARDO Infusion Dextrose/Sodium Chloride 1,000 mls @ 100 mls/hr 01/23/25 06:45 01/23/25 08:54 D5ns IVCONT Infused .Q10H GERARDO Infusion Iohexol 85 ml 01/21/25 23:52 01/21/25 23:56 Iohexol 350 Mg/Ml 100 Ml Infus..Btl IV 01/21/25 23:53 85 ml ONCE ONE Administration Misoprostol 200 mcg 01/22/25 11:30 01/23/25 17:01 Misoprostol 200 Mcg Tablet PO 200 mcg QIDACHS GERARDO Administration Morphine Sulfate 4 mg 01/22/25 06:47 01/22/25 06:51 Morphine Sulfate 4 Mg/Ml Cartridge IVPUSH 01/22/25 06:48 4 mg ONCE ONE Administration Protocol Morphine Sulfate 4 mg 01/22/25 08:33 01/22/25 09:08 Morphine Sulfate 4 Mg/Ml Cartridge IVPUSH 4 mg Q4H PRN Administration Pain, Severe (Pain Scale 7-10) Protocol Multivitamins/Vitamin C 1 tab 01/22/25 09:00 01/23/25 08:51 Multivitamin Tablet PO 1 tab DAILY GERARDO Administration Ondansetron HCl 4 mg 01/21/25 20:28 01/21/25 20:42 Ondansetron Hcl 4 Mg/2 Ml Vial IVPUSH 01/21/25 20:29 4 mg ONCE ONE Administration Ondansetron HCl 4 mg 01/22/25 06:36 01/22/25 06:45 Ondansetron Hcl 4 Mg/2 Ml Vial IVPUSH 01/22/25 06:37 4 mg ONCE ONE Administration Ondansetron HCl 4 mg 01/22/25 09:23 01/22/25 20:34 Ondansetron Hcl 4 Mg/2 Ml Vial IVPUSH 4 mg Q6H PRN Administration Nausea and Vomiting Pantoprazole Sodium 80 mg 01/22/25 06:36 01/22/25 06:44 Pantoprazole Sodium 40 Mg/10 Ml Vial IVPUSH 01/22/25 06:37 80 mg ONCE ONE Administration Pantoprazole Sodium 40 mg 01/22/25 16:30 01/23/25 17:01 Pantoprazole Sodium 40 Mg/10 Ml Vial IVPUSH 40 mg BID@0630,1630 [facility] Administration Pyridoxine HCl 50 mg 01/22/25 09:00 01/23/25 08:51 Pyridoxine Hcl (Vitamin B6) 50 Mg Tablet PO 50 mg DAILY GERARDO Administration Sodium Chloride 3 ml 01/22/25 08:00 01/23/25 17:01 0.9 % Sodium Chloride Flush 3 Ml Syringe IVFLUSH 3 ml QSHIFT [facility] Administration Sucralfate 1 gm 01/22/25 04:35 01/22/25 05:25 Sucralfate Oral Suspension 1 Gm/10 Ml Oral.Susp PO 01/22/25 04:36 1 gm ONCE ONE Administration Sucralfate 1 gm 01/22/25 16:30 01/23/25 17:01 Sucralfate Oral Suspension 1 Gm/10 Ml Oral.Susp PO 1 gm BIDAC GERARDO Administration Thiamine HCl 100 mg 01/22/25 09:00 01/23/25 08:51 Thiamine Hcl 100 Mg Tablet PO 100 mg DAILY GERARDO Administration Zinc Sulfate 220 mg 01/22/25 09:00 01/23/25 08:51 Zinc Sulfate 220 Mg Capsule PO 220 mg DAILY GERARDO Administration Medical Decision Making Medical Decision Making [facility] Narrative: 54-year-old female, end-stage renal disease on hemodialysis, status post multiple abdominal surgeries including gastric bypass, presents with acute abdominal pain nausea and vomiting. Given the patient's history, check labs, CT. Concern for possible obstruction, gastric ulcer or colitis. Analgesia and antiemetics. Gris Aguirre MD 01/22/25 0644 At 06:30, I was informed by the patient's nurse that the patient had already been discharged. She was is waiting for her ride. Patient asked to use the commode and she had a large bowel movement with black stool and also started vomiting coffee-ground emesis. -patient getting IV fluids, Protonix and antiemetics -repeating a CBC, of cold guaiac both stool and vomit pending -I reviewed patient's CT scan: No acute findings -patient requested pain medication. Patient's stool occult test positive I discussed the patient with the hospitalist team, patient to be admitted Differential Diagnosis Differential Diagnoses: The differential diagnosis associated with the presentation includes Bowel obstruction Perforation Dehydration UTI Colitis Admission/Observation Consideration of admission/observation: Escalation of care including admission/observation considered Lab Data MDM Lab Attestation statement: I reviewed the patient's lab results. 01/23/25 05:27 01/23/25 05:27 Labs: Lab Results 01/21/25 01/21/25 01/22/25 Range/Units 20:39 20:39 06:07 WBC 9.9 (4.8-10.8) X10*3/uL RBC 4.69 (4.20-5.50) X10*6/uL Hgb 13.7 (12.0-16.0) g/dl Hct 41.8 (37.0-47.0) % MCV 89.1 (80.0-98.0) fL MCH 29.2 (27.0-33.0) pg MCHC 32.8 (31.0-35.0) g/dl RDW 15.8 (11.0-16.0) % Plt Count 253 (160-400) X10*3/uL MPV 9.9 (9.4-12.3) fL Immature Gran % (Auto) 0.3 (0.0-0.4) % Neut % (Auto) 85.6 H (45-73) % Lymph % (Auto) 8.1 L (20-40) % Wirt % (Auto) 5.3 (2-11) % Eos % (Auto) 0.3 (0-4) % Baso % (Auto) 0.4 (0-2) % Lymph # (Auto) 0.8 L (1.2-4.9) X10*3/uL Wirt # (Auto) 0.5 (0.1-1.2) X10*3/uL Eos # (Auto) 0.0 (0.0-0.4) X10*3/uL Baso # (Auto) 0.0 (0.0-0.2) X10*3/uL Abs Immat Gran (auto) 0.03 (0.00-0.03) X10*3/uL Absolute Neuts (auto) 8.5 H (2.0-8.3) x10*3/uL Absolute Nucleated RBC 0.000 (0.0-0.012) X10*3/uL Nucleated RBC % (auto) 0.0 (0.0-0.2) /100WBC ESR (1-30) MM/HR Sodium 139 (135-145) mmol/L Potassium 4.1 (3.3-5.1) mmol/L Chloride 97 (96-108) mmol/L Carbon Dioxide 32 H (22-29) mmol/L Anion Gap 14 (12-20) BUN 21 H (9-16) mg/dL Creatinine 3.58 H (0.5-1.4) mg/dL Estim Creat Clear Calc 16.3 Estimated GFR 13 Random Glucose 119 H (60-115) mg/dL Estimat Average Glucose mg/dL Hemoglobin A1c % (<6.0) % Lactic Acid 0.7 (0.5-2.0) mmol/L Calcium 9.6 D Cancelled (8.4-10.2) mg/dL Magnesium 2.0 (1.6-2.6) mg/dL Total Bilirubin 0.5 (0.0-1.0) mg/dL Direct Bilirubin 0.2 (0.0-0.5) mg/dL AST 17 (5-31) U/L ALT < 6 (0-31) U/L Alkaline Phosphatase 153 H (39-117) U/L C-Reactive Protein 0.59 H (< or = 0.50) mg/dL Total Protein 6.9 (6.5-8.0) g/dL Albumin 4.0 (3.5-5.0) g/dL Lipase 15 (8-78) U/L Gastric Occult Blood (NEG) Stool Occult Blood POSITIVE (NEGATIVE) 01/22/25 Range/Units 06:36 WBC 11.7 H (4.8-10.8) X10*3/uL RBC 4.26 (4.20-5.50) X10*6/uL Hgb 12.6 (12.0-16.0) g/dl Hct 38.8 (37.0-47.0) % MCV 91.1 (80.0-98.0) fL MCH 29.6 (27.0-33.0) pg MCHC 32.5 (31.0-35.0) g/dl RDW 15.9 (11.0-16.0) % Plt Count 262 (160-400) X10*3/uL MPV 9.5 (9.4-12.3) fL Immature Gran % (Auto) (0.0-0.4) % Neut % (Auto) (45-73) % Lymph % (Auto) (20-40) % Wirt % (Auto) (2-11) % Eos % (Auto) (0-4) % Baso % (Auto) (0-2) % Lymph # (Auto) (1.2-4.9) X10*3/uL Wirt # (Auto) (0.1-1.2) X10*3/uL Eos # (Auto) (0.0-0.4) X10*3/uL Baso # (Auto) (0.0-0.2) X10*3/uL Abs Immat Gran (auto) (0.00-0.03) X10*3/uL Absolute Neuts (auto) (2.0-8.3) x10*3/uL Absolute Nucleated RBC 0.000 (0.0-0.012) X10*3/uL Nucleated RBC % (auto) 0.0 (0.0-0.2) /100WBC ESR 11 (1-30) MM/HR Sodium (135-145) mmol/L Potassium (3.3-5.1) mmol/L Chloride (96-108) mmol/L Carbon Dioxide (22-29) mmol/L Anion Gap (12-20) BUN (9-16) mg/dL Creatinine (0.5-1.4) mg/dL Estim Creat Clear Calc Estimated GFR Random Glucose (60-115) mg/dL Estimat Average Glucose 82 mg/dL Hemoglobin A1c % 4.5 (<6.0) % Lactic Acid (0.5-2.0) mmol/L Calcium (8.4-10.2) mg/dL Magnesium (1.6-2.6) mg/dL Total Bilirubin (0.0-1.0) mg/dL Direct Bilirubin (0.0-0.5) mg/dL AST (5-31) U/L ALT (0-31) U/L Alkaline Phosphatase (39-117) U/L C-Reactive Protein (< or = 0.50) mg/dL Total Protein (6.5-8.0) g/dL Albumin (3.5-5.0) g/dL Lipase (8-78) U/L Gastric Occult Blood POSITIVE H (NEG) Stool Occult Blood (NEGATIVE) Critical Care Time Critical Care Time Critical Care Time: Yes Total Critical Care Time: 45 Attestation: I have personally provided critical care time. Time includes review of lab data, radiology results, discussion with consultants, and monitoring for potential decompensation. Intervention performed as documented. Discharge Plan Discharge Clinical Impression: Acute epigastric pain Patient Disposition: Admitted As Inpatient Interventions: Admission Worksheet (ED) Last Done: 01/22/25 15:36 Discharge Date/Time: 01/22/25 16:14
[2025-01-21 20:26] VITALS: BP 211/62; PULSE 94; RESP 18; TEMP 36.9; O2SAT 94; BMI 21.5
[2025-01-21 20:42] LABS: MANUAL DIFF FLAG NO
[2025-01-21 20:44] LABS: Hematocrit 41.8 % (37.0-47.0); Hemoglobin 13.7 g/dl (12.0-16.0); Imm Gran Abs Auto 0.03 X10*3/uL (0.00-0.03); Imm Gran Pct Auto 0.3 % (0.0-0.4); Lymphocytes Absolute Auto 0.8 X10*3/uL (1.2-4.9); Mean Corpuscular HGB Conc 32.8 g/dl (31.0-35.0); Mean Corpuscular Hemoglobin 29.2 pg (27.0-33.0); Mean Corpuscular Volume 89.1 fL (80.0-98.0); NRBC Abs Auto 0.000 X10*3/uL (0.0-0.012); NRBC Pct Auto 0.0 /100WBC (0.0-0.2); Platelet Count 253 X10*3/uL (160-400); Red Blood Count 4.69 X10*6/uL (4.20-5.50); White Blood Count 9.9 X10*3/uL (4.8-10.8)
--- OUTSIDE RECORDS SUMMARY | 2025-01-21 20:58 | XMS_ITS | Clinical Summary ---
Author Organization [facility] Address [address] [place] [phone] Phone Care Team Providers Care Baker Biscuit Name Role Phone Rozina Nicole MD Primary [...] Devices Not on file Insurance [place] [address] [place] [address] [place] [address] [place] [address] [place] [address] [place] [address] [place] [address] [place] [address] [place] [address] [place] [address] ACO Care Teams Baker Biscuit Relationship Specialty Start Date End Date Rozina Nicole MD [address] [place] [address] PCP - General 06/26/18 Additional Source Comments The information contained in this document represents components of the legal health record. It is not the complete legal health record.[facility]
--- OUTSIDE RECORDS SUMMARY | 2025-01-21 20:58 | XMS_ITS | Clinical Summary ---
Author Organization [facility] Address [address] [place] [address] Care Team Providers Care Software Manager Name Role Phone Rozina Nicole MD Primary Care Provider [phone] Jon Wang MD Unavailable [phone] Allergies No known active allergies Medications famotidine [...] abdomen pelvis with contrast. Ordered. Melena 10/10/2024 Social History Tobacco Use Types Packs/Day Years Used Date Smoking Tobacco: Former Cigarettes Passive Smoke Exposure: Past Tobacco Cessation:Counseling Given: Not Answered [facility] Utilities Answer Date Recorded In the past 12 months has th e [employer], oil, or water [employer] threatened to shut off services in your [...] any time in the past 12 m [facility], were you homeless or living in a skilled nursing (including now)? No 10/11/2024 Comments Unknown Sex [...] 09/10/2024 COVID-19 Vaccine ( - season) 2024 Insurance [facility] MEDIC[facility] PART A & B [facility] MEDICARE PART A & B [facility] MEDICARE PART A & B Advance Directives * Full Code (Latest Code Status on File) Date Activated Date Inactivated Comments 10/11/2024 5:25 AM Care Teams Software Manager Relationship Specialty Start Date End Date Rozina Nicole MD [address] [place] [address] PCP - General Family Medicine 10/11/24 Jon Wang MD [address] [facility] [address] [place] [address] Physician Internal Medicine 10/11/24
--- OUTSIDE RECORDS SUMMARY | 2025-01-21 20:58 | XMS_ITS | Clinical Summary ---
Author Organization [address] [facility] Address [address] [place] [address] Phone Care Team Providers Care Control Systems Developer Name Role Phone Sam Lynch MD Primary [...] total) by mouth at bedtime. 5 Active ondansetron (ZOFRAN) 4 mg tabletIndicati ons:Hx of obesity,Bariat delon surgery status,Margina l ulcer TAKE 1 TABLET BY MOUTH EVERY 8 HOURS IF NEEDED FOR NAUSEA OR VOMITING. 21 tablet 5 Active pantoprazole (PROTONIX) 40 mg EC tabletIndicati ons:Marginal ulcer Take 1 tablet (40 mg total) by mouth 1 (one) time each day before breakfast. Do not crush, chew, or split. 30 each 2 5 01/12/20 25 Active Problems Problem Noted Date Diagnosed [...] kidney disease 04/26/2021 Vitamin D deficiency 04/26/2021 Resolved Problems Problem Noted Date Diagnosed Date Resolved Date Upper GI bleed 06/30/2024 07/03/2024 Surgical History Surgery Date Site/Laterality Comments OTHER SURGICAL HISTORY PROCEDURE: DIALYSIS ACCESS SYSTEM LAPAROSCOPIC GASTRIC BANDING PROCEDURE: LAP ADJUSTABLE GASTRIC BAND HYSTERECTOMY PROCEDURE: HISTORICAL HYSTERECTOMY OTHER SURGICAL HISTORY PROCEDURE: COLONOSCOPY LESION REMOVAL OTHER SURGICAL HISTORY 06/13/2021 Left PROCEDURE: VT CRTJ ARVEN FSTL XCP DIR HERMANN BARTH [...] Orientation Straight 06/30/2024 8: 57 AM EDT Last Filed Vital Signs Vital [...] or Most Recently Relevant to Health Maintenance Results * (ABNORMAL) Comprehensive metabolic panel (08/25/2024 9:00 AM EDT) Sodium 135 133 - 145 mmol/L LAB CHEMISTRY METHOD 08/25/2024 10:13 AM [facility] Potassium 5.4 3.5 - 5.5 mmol/L LAB CHEMISTRY METHOD 08/25/2024 10:13 AM [facility] Chloride 100 96 - 110 mmol/L LAB CHEMISTRY METHOD 08/25/2024 10:13 AM [facility] CO2 29 21 - 32 mmol/L LAB CHEMISTRY METHOD 08/25/2024 10:13 AM [facility] Anion Gap 6 3 - 11 LAB CHEMISTRY METHOD 08/25/2024 10:13 AM [facility] Glucose 109(H) 70 - 100 mg/dL LAB CHEMISTRY METHOD 08/25/2024 10:13 AM [facility] BUN 22 5 - 25 mg/dL LAB CHEMISTRY METHOD 08/25/2024 10:13 AM [facility] Creatinine 5.00(H) 0.50 - 1.10 mg/dL LAB CHEMISTRY METHOD 08/25/2024 10:13 AM [facility] eGFR 10(L) >=60 mL/min/1. 73m2 LAB CHEMISTRY METHOD 08/25/2024 10:13 AM [facility] Comment:Calculation based on the Chronic Kidney Disease Epidemiology Collaboration (CKD-EPI) equation refit without adjustment for race. BUN/Creatinine Ratio 4.4 LAB CHEMISTRY METHOD 08/25/2024 10:13 AM [facility] Calcium 9.2 8.5 - 10.5 mg/dL LAB CHEMISTRY METHOD 08/25/2024 10:13 AM [facility] AST (SGOT) 20 10 - 42 unit/L LAB CHEMISTRY METHOD 08/25/2024 10:13 AM EDT [facility] ALT (SGPT) 29 10 - 60 unit/L LAB CHEMISTRY METHOD 08/25/2024 10:13 AM EDT [facility] Alkaline Phosphatase 216(H) 42 - 121 unit/L LAB CHEMISTRY METHOD 08/25/2024 10:13 AM EDT [facility] Total Protein 6.2 6.0 - 8.0 g/dL LAB CHEMISTRY METHOD 08/25/2024 10:13 AM EDT [facility] Albumin 3.2 3.2 - 5.0 g/dL LAB CHEMISTRY METHOD 08/25/2024 10:13 AM EDT [facility] Total Bilirubin 0.3 0.0 - 1.4 mg/dL LAB CHEMISTRY METHOD 08/25/2024 10:13 AM EDT [facility] Blood Venous blood specimen / Unknown Venipuncture / Unknown 08/25/2024 9:00 AM EDT 08/25/2024 9:41 AM EDT us Vaibhav Ozuna MD LAB BLOOD ORDERABLES Final Re sult [facility] [address] [place] [address], from Last 3 Months or Most Recently Relevant to Health Maintenance Insurance [place]ICA[place] - [place] MEDICARE Advance Directives Documents on File Type Date Recorded Patient Assistant Business Manager Expl anation Health Care Decision (hx) [...] currently active code status orders. Care Teams Control Systems Developer Relationship Specialty Start Date End Date Sam Lynch MD [address] [place] [address] [address] PCP - General 10/25/22
[2025-01-21 21:07] LABS: Alanine Aminotransferase < 6 U/L (0-31); Albumin Level 4.0 g/dL (3.5-5.0); Alkaline Phosphatase 153 U/L (39-117); Anion Gap 14 (12-20); Aspartate Amino Transferase 17 U/L (5-31); Blood Urea Nitrogen 21 mg/dL (9-16); Calcium 9.6 mg/dL (8.4-10.2); Carbon Dioxide 32 mmol/L (22-29); Chloride 97 mmol/L (96-108); Creatinine Clr Calc Pharmacy 16.3; Estimated Glomerular Filt Rate 13; Lipase 15 U/L (8-78); Magnesium 2.0 mg/dL (1.6-2.6); Potassium 4.1 mmol/L (3.3-5.1); Sodium 139 mmol/L (135-145); Total Protein 6.9 g/dL (6.5-8.0)
[2025-01-21 22:14] VITALS: BP 158/83; PULSE 87; RESP 15; TEMP 36.8; O2SAT 96
[2025-01-21] MEDS: iohexoL 350 MG/ML 100 ML INFUS..BTL 85 ML IV (23:56)
[2025-01-22] VITALS (12 sets, daily range): BP systolic 147–192; BP diastolic 75–98; PULSE 91–104; RESP 14–18; TEMP 36.9–37.3; O2SAT 94–99; BMI 22.5
--- NOTE | 2025-01-22 00:17 | PC.NURSE ---
pt presented by ambulance for post dialysis n/v/ and 11/19 abdominal pain sharp and burning in mid epigastric region. BP elevated, MD aware. IV placed, labs drawn and sent. IV fluids administered as well as zofran and dilaudid. Pt given contrast and CT pending.
--- NOTE | 2025-01-22 01:23 | PC.NURSE ---
pt c/o 10/20 abdominal pain, crying in room. Provider notified and medication ordered and administered per APR>
[2025-01-22] MEDS: Sucralfate Oral Suspension 1 GM/10 ML ORAL.SUSP PO ×2 (05:25→17:01)
[2025-01-22 06:46] LABS: OBS Int Ctl Valid YES; OBS1 POSITIVE (NEGATIVE)
[2025-01-22 06:46] LABS: Hematocrit 38.8 % (37.0-47.0); Hemoglobin 12.6 g/dl (12.0-16.0); Mean Corpuscular HGB Conc 32.5 g/dl (31.0-35.0); Mean Corpuscular Hemoglobin 29.6 pg (27.0-33.0); Mean Corpuscular Volume 91.1 fL (80.0-98.0); NRBC Abs Auto 0.000 X10*3/uL (0.0-0.012); NRBC Pct Auto 0.0 /100WBC (0.0-0.2); Platelet Count 262 X10*3/uL (160-400); Red Blood Count 4.26 X10*6/uL (4.20-5.50); White Blood Count 11.7 X10*3/uL (4.8-10.8)
--- NOTE | 2025-01-22 06:55 | PC.NURSE ---
Pt provided with discharge instructions and medicated with sucrafate. While calling and waiting for her ride, patient had large black liquid stool. MD notified and ordered for occult stool. Pt then developed bright red clot/blood like emesis. MD notified, new IV inserted. Pt medicated with IV protonix, IV zofran and IV fluids. Pt writhing in pain. MD notified and 4mg of morphine. Emesis sent down to lab for testing and cbc.
[2025-01-22 07:15] LABS: GASOB Int Neg Ctl Valid YES; GASOB Int Pos Ctl Valid YES
[2025-01-22 07:17] LABS: GASOB Lot 20542
--- NOTE | 2025-01-22 07:56 | P.HPHOSP_ITS ---
History of Present Illness Date of Service: 01/22/25 Attending physician on admission: Hedii Melgar Chief Complaint: abdominal pain, coffee ground emesis This is a 54-year-old female with history of ESRD on hemodialysis, multiple episodes of GI bleeding due to PUD, gastric sleeve surgery requiring multiple revisions including Sae-en-Y bypass, GERD who presents to the emergency department with abdominal pain. Patient began having multiple episodes of vomiting following dialysis Friday afternoon. After multiple episodes of vomiting she noticed red blood mixed in with the vomitus. Due to persistent vomiting and abdominal pain she presented to the emergency department for evaluation. Lab work was relatively stable and CT abdomen and pelvis showed no acute changes, therefore the plan was for her to be discharged home. However, she then had an episode of black stools and an episode of coffee ground emesis. Gastric occult was checked and was +for blood and stool occult was positive. She received IV Protonix, Carafate and also required multiple doses of pain medication and the decision was made to keep her overnight for observation. Review of Systems 2 Review of Systems: Yes all other systems are reviewed and are negative Constitutional: Constitutional: Denies chills and Denies fever(s) Cardiovascular: Cardiovascular: Denies chest pain, Denies palpitations and Denies dyspnea Respiratory: Respiratory: Denies cough and Denies dyspnea Gastrointestinal: Gastrointestinal: Reports abdominal pain, Reports coffee ground emesis, Reports nausea and Reports vomiting Endocrine: Endocrine: Denies palpitations [facility] 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 Lumbar back pain with radiculopathy affecting left lower extremity Physical exam (~02/14/21) Peritoneal dialysis catheter in place Polyarthralgia Dyslipidemia Family history of ovarian cancer Abnormal mammogram of right breast Angina pectoris syndrome Chest pain Constipation Nephrosclerosis Renal interstitial fibrosis Obesity (BMI 30-39.9) Back pain GERD (gastroesophageal reflux disease) History of headache HTN (hypertension) Family History Father Asthma Mother Asthma Hypertension Ovarian cancer Maternal Grandfather Myocardial infarction Paternal Grandmother Stroke Surgical History History of sleeve gastrectomy S/P arteriovenous (AV) graft placement Fistula Hx of colonoscopy Hx of hysterectomy Hx of tubal ligation History of endometrial ablation Social History Household Members: Family Household Members Other:: 30 year old special needs son Housing: Apartment Are you a primary respiratory care technician to a significant other at home: No Do you presently have visiting nurse or other home services: No Alcohol intake: never Comment: low fall risk Patient Tobacco Use Status: Former Tobacco user Tobacco use type: Cigarette Cigarette Packs Per Day: 1 Cigarettes Per Day: 1 Years Smoked: 10+ Smoked in Last 30 Days: No e-Cigarette/Vaping Use: Never Used Second Hand Smoke Exposure: Yes Use of substances other than those prescribed or required for medical reasons: No Substance Use Type: Caffiene Advance Directives: Yes Advance Directives on File: Yes Advance Directives Date on File: 04/27/20 Patient : No service: No Current occupational status: employed Cognitive needs: No Hearing needs: No Vision needs: Yes (reading glasses) Meds Allergies Allergy/AdvReac Type Severity Reaction Status Date / Time ibuprofen Allergy Severe Unknown Verified 01/21/25 20:27 nifedipine Allergy Intermediate hives, leg Verified 01/21/25 20:27 edema Active Medications: Current Medications Acetaminophen (Acetaminophen 325 Mg Tablet) 650 mg PO Q6H PRN PRN Reason: Pain, Mild 1-3,fever,headache Calcium Carbonate (Calcium Carbonate 750 Mg Tab.Chew) 750 mg PO Q4H PRN PRN Reason: Heartburn Magnesium Hydroxide (Milk Of Magnesia 30 Ml Oral.Susp) 30 ml PO DAILY PRN PRN Reason: Constipation Melatonin (Melatonin 3 Mg Tablet) 6 mg PO BEDTIME PRN PRN Reason: Insomnia Sodium Chloride (0.9 % Sodium Chloride Flush 3 Ml Syringe) 3 [facility] Medications ?Medication ?Instructions ?Recorded ?Confirmed ?Last Taken ?Type ferrous sulfate 325 mg (65 mg 325 mg PO DAILY 05/11/20 01/22/25 01/21/25 History iron) tablet,delayed release cyanocobalamin (vitamin B-12) 1,000 mcg PO DAILY 10/1701/22/25 01/21/25 History 1,000 mcg tablet fluticasone propionate 50 1 spray intranasal DAILY PRN 08/10/23 01/22/25 01/21/25 History mcg/actuation nasal Allergy Symptoms spray,suspension rfpctjrq-nbxokqjf-lfed 45 mg-folic 1 cap PO DAILY 07/1301/22/25 01/21/25 History acid 800 mcg-vit K 120 mcg capsule (Bariatric Multivitamins) parenteral amino acid 15% no.5 15 0.5 ea IV MOWEFR@090 0 08/10/23 01/22/25 01/21/25 History % combination no.5 intravenous solution (Clinisol SF) zinc acetate 50 mg (zinc) capsule 100 mg PO DAILY 11/0401/22/25 01/21/25 History meclizine 12.5 mg tablet 12.5 mg PO TID PRN Nausea An d 06/04/24 01/22/25 01/21/25 History Vomiting clotrimazole-betamethasone 1 1 appl topical DAILY PRN Rash 09/20/24 01/22/25 01/21/25 History %-0.05 % topical cream misoprostol 200 mcg tablet 200 mcg PO QID 11/14/2401/21/25 History omeprazole 40 mg capsule,delayed 40 mg PO BID@0630,163 0 11/14/24 01/22/25 01/21/25 History release pantoprazole 40 mg tablet,delayed 40 mg PO BID 5 01/22/25 01/21/25 History release cyanocobalamin (vitamin B-12) 1,000 mcg PO DAILY 01/2201/22/25 01/21/25 History 1,000 mcg tablet gabapentin 400 mg capsule 400 mg PO TID 01/22/2501/2201/21/25 History triamcinolone acetonide 0.1 % 1 appl topical BID-TID 1 03/25/24 01/22/25 01/21/25 History topical cream Physical Exam 2 Vital Signs and Narrative: Vital Signs: Last Vital Signs Temp 98.4 F 01/22/25 06:37 Pulse 95 01/22/25 06:37 Resp 17 01/22/25 06:37 BP 173/95 H 01/22/25 06:37 Pulse Ox 94 01/22/25 06:37 O2 Del Method Room Air 01/22/25 06:37 BMI result Body Mass Index 21.5 Const: General: cooperative, no acute distress, alert and awake Nutritional Appearance: average body habitus Orientation/consciousness: patient oriented x3 Resp: Effort & Inspection: normal respiratory effort, able to speak in complete sentences, no respiratory distress and no use of accessory muscles Cardio: Rate: regular rate GI: Other: no significant tenderness Inspection: No distended Palpation (GI): Soft to palpation Neuro: General: patient oriented x3, No moves all extremities and No CN's II- XI intact bilaterally Extrem: General: No pedal edema Results Labs 01/22/25 14:21 01/21/25 20:39 Labs: Laboratory Results - last 24 hr 01/21/25 01/21/25 01/22/25 20:39 20:39 06:07 MCV 89.1 MCH 29.2 MCHC 32.8 RDW 15.8 Plt Count 253 MPV 9.9 Immature Gran % (Auto) 0.3 Neut % (Auto) 85.6 H Lymph % (Auto) 8.1 L Millard % (Auto) 5.3 Eos % (Auto) 0.3 Baso % (Auto) 0.4 Lymph # (Auto) 0.8 L Millard # (Auto) 0.5 Eos # (Auto) 0.0 Baso # (Auto) 0.0 Abs Immat Gran (auto) 0.03 Absolute Neuts (auto) 8.5 H Absolute Nucleated RBC 0.000 Nucleated RBC % (auto) 0.0 Anion Gap 14 Estim Creat Clear Calc 16.3 Estimated GFR 13 Random Glucose 119 H Lactic Acid 0.7 Calcium 9.6 D Cancelled Magnesium 2.0 Total Bilirubin 0.5 Direct Bilirubin 0.2 AST 17 ALT < 6 Alkaline Phosphatase 153 H Total Protein 6.9 Albumin 4.0 Lipase 15 Gastric Occult Blood Stool Occult Blood POSITIVE 01/22/25 06:36 MCV 91.1 MCH 29.6 MCHC 32.5 RDW 15.9 Plt Count 262 MPV 9.5 Immature Gran % (Auto) Neut % (Auto) Lymph % (Auto) Millard % (Auto) Eos % (Auto) Baso % (Auto) Lymph # (Auto) Millard # (Auto) Eos # (Auto) Baso # (Auto) Abs Immat Gran (auto) Absolute Neuts (auto) Absolute Nucleated RBC 0.000 Nucleated RBC % (auto) 0.0 Anion Gap Estim Creat Clear Calc Estimated GFR Random Glucose Lactic Acid Calcium Magnesium Total Bilirubin Direct Bilirubin AST ALT Alkaline Phosphatase Total Protein Albumin Lipase Gastric Occult Blood POSITIVE H Stool Occult Blood Assessment and Plan (1) Anastomotic ulcer S/P gastric bypass: Status: Acute (2) History of Sae-en-Y gastric bypass: Status: Acute (3) Gastritis: Status: Acute (4) Esophagitis: Status: Acute (5) Acute GI bleeding: Status: Acute Plan This is a 54-year-old female with history of ESRD on HD, multiple episodes of GI bleeding due to PUD, gastric sleeve surgery requiring multiple revisions including Sae-en-Y bypass, GERD, , dyslipidemia, mood disorder, fibromyalgia, chronic pain syndrome who presents to the emergency department with abdominal pain and subsequently developed coffee-ground emesis and black stools Probable upper GI bleed likely secondary to gastritis/PUD/known ulcers last EGD 12/07 two superficial ulcers at the proximal Sae limb distal from the anastomosis; other areas of inflammation had improved NPO antiemetics PPI, carafate GI consult ESRD on HD MWF RTANE patient, consulted to continue HD during hospitalization Last dialysis session 01/21 Mood continue SSRI DVT prophylaxis-mechanical devices, chemoprophylaxis is contraindicated in the setting of GI bleed Quality Stroke Does the patient have a stroke diagnosis?: No VTE Prior VTE?: No VTE Risk Level:: Medical - moderate - high VTE Device Contraindication: N/A - Device Ordered VTE Drug Contraindication: Treatment Not Indicated
--- NOTE | 2025-01-22 08:28 | PHA.MEDREC ---
Pharmacy Consult ? Medication Reconciliation Pharmacy has completed the medication reconciliation. PAtient good historian but unable to speak d/t lost voice. Went down list from claim Hx and last visit and she was able to thumbs up or down what she was taking. She did note that she takes gabapentin TID instead of BID
--- NOTE | 2025-01-22 09:05 | PM.GICN ---
History of Present Illness Data of Consult Service Date: 01/22/25 Requesting physician: Briana Lofton Primary Care Provider: Unknown Physician HPI Reason for consult: black stools, coffee ground emesis 54 YF with ESRD on hemodialysis, multiple previous admissions for GI bleeding due to PUD, gastric sleeve surgery requiring multiple revisions including Sae-en-Y bypass, GERD seen at [facility] on 01/21/25 with abdominal pain. Patient began having multiple episodes of vomiting following dialysis Friday afternoon. After multiple episodes of vomiting she noticed red blood mixed in with the vomitus. Due to persistent vomiting and abdominal pain she presented to the emergency department for evaluation. Lab work was relatively stable and CT abdomen and pelvis showed no acute changes, therefore the plan was for her to be discharged home. However, she then had an episode of black stools and an episode of coffee ground emesis. Gastric occult was checked and was +for blood and stool occult was positive. She received IV Protonix, Carafate and also required multiple doses of pain medication and the decision was made to keep her overnight for observation. Review of Systems Review of Systems: Yes all other systems are reviewed and are negative Constitutional: Constitutional: Denies chills and Denies fever(s) Cardiovascular: Cardiovascular: Denies chest pain, Denies palpitations and Denies dyspnea Respiratory: Respiratory: Denies cough and Denies dyspnea Gastrointestinal: Gastrointestinal: Reports abdominal pain, Reports coffee ground emesis, Reports nausea and Reports vomiting Endocrine: Endocrine: Denies palpitations PMFSH Past Medical History 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 Lumbar back pain with radiculopathy affecting left lower extremity Physical exam (~02/14/21) Peritoneal dialysis catheter in place Polyarthralgia Dyslipidemia Family history of ovarian cancer Abnormal mammogram of right breast Angina pectoris syndrome Chest pain Constipation Nephrosclerosis Renal interstitial fibrosis Obesity (BMI 30-39.9) Back pain GERD (gastroesophageal reflux disease) History of headache HTN (hypertension) Family History Family History Father Asthma Mother Asthma Hypertension Ovarian cancer Maternal Grandfather Myocardial infarction Paternal Grandmother Stroke Surgical History Surgical History History of sleeve gastrectomy S/P arteriovenous (AV) graft placement Fistula Hx of colonoscopy Hx of hysterectomy Hx of tubal ligation History of endometrial ablation Social History Social History Household Members: Family and Children Household Members Other:: 30 year old special needs son Housing: Apartment Are you a primary gericare aide to a significant other at home: No Do you presently have visiting nurse or other home services: Yes (nephew is CONSTRUCTION SITE MANAGER) Alcohol intake: never Comment: low fall risk Patient Tobacco Use Status: Former Tobacco user Tobacco use type: Cigarette Cigarette Packs Per Day: 1 Cigarettes Per Day: 1 Years Smoked: 10+ e-Cigarette/Vaping Use: Never Used Second Hand Smoke Exposure: Yes Substance Use Type: Caffiene Advance Directives Date on File: 04/27/20 service: No Current occupational status: employed Cognitive needs: No Hearing needs: No Vision needs: Yes (reading glasses) Meds Allergies Allergy/AdvReac Type Severity Reaction Status Date / Time ibuprofen Allergy Severe Unknown Verified 01/21/25 20:27 nifedipine Allergy Intermediate hives, leg Verified 01/21/25 20:27 edema Active Medications: Current Medications Acetaminophen (Acetaminophen 325 Mg Tablet) 650 mg PO Q6H PRN PRN Reason: Pain, Mild 1-3,fever,headache Calcium Carbonate (Calcium Carbonate 750 Mg Tab.Chew) 750 mg PO Q4H PRN PRN Reason: Heartburn Cyanocobalamin (Cyanocobalamin (Vitamin B-12) 1,000 Mcg Tablet) 1,000 mcg PO DAILY GERARDO Docusate Sodium (Docusate Sodium 100 Mg Capsule) 100 mg PO BID GERARDO Escitalopram Oxalate (Escitalopram Oxalate 10 Mg Tablet) 10 mg PO DAILY GERARDO Ferrous Sulfate (Ferrous Sulfate 324 Mg Tablet.Dr) 324 mg PO DAILY EGRARDO Fluticasone Propionate (Fluticasone Propionate Nasal 16 Gm [place]) 1 spray NOSTRIL-B DAILY PRN PRN Reason: Allergy Symptoms Gabapentin (Gabapentin 400 Mg Capsule) 400 mg PO TID GERARDO Magnesium Hydroxide (Milk Of Magnesia 30 Ml Oral.Susp) 30 ml PO DAILY PRN PRN Reason: Constipation Melatonin (Melatonin 3 Mg Tablet) 6 mg PO BEDTIME PRN PRN Reason: Insomnia Misoprostol (Misoprostol 200 Mcg Tablet) 200 mcg PO QIDACHS [facility] Morphine Sulfate (Morphine Sulfate 4 Mg/Ml Cartridge) 4 mg IVPUSH Q4H PRN; Protocol PRN Reason: Pain, Severe (Pain Scale 7-10) Multivitamins/Vitamin C (Multivitamin Tablet) 1 tab PO DAILY [facility] Pantoprazole Sodium (Pantoprazole Sodium 40 Mg/10 Ml Vial) 40 mg IVPUSH BID@0630,1630 [facility] Pyridoxine HCl (Pyridoxine Hcl (Vitamin B6) 50 Mg Tablet) 50 mg PO DAILY [facility] Sodium Chloride (0.9 % Sodium Chloride Flush 3 Ml Syringe) 3 ml IVFLUSH QSHIFT [facility] Last Admin: 01/22/25 09:03 Dose: Not Given Sucralfate (Sucralfate Oral Suspension 1 Gm/10 Ml Oral.Susp) 1 gm PO BIDAC [facility] Thiamine HCl (Thiamine Hcl 100 Mg Tablet) 100 mg PO DAILY [facility] Zinc Sulfate (Zinc Sulfate 220 Mg Capsule) 220 mg PO DAILY [facility] Home Medications ?Medication ?Instructions ?Recorded ?Confirmed ?Last Taken ?Type ferrous sulfate 325 mg (65 mg 325 mg PO DAILY 05/11/20 01/22/25 01/21/25 History iron) tablet,delayed release cyanocobalamin (vitamin B-12) 1,000 mcg PO DAILY 10/17/20 01/22/25 01/21/25 History 1,000 mcg tablet fluticasone propionate 50 1 spray intranasal DAILY PRN 08/10/23 01/22/25 01/21/25 History mcg/actuation nasal Allergy Symptoms spray,suspension [id number] 45 mg-folic 1 cap PO DAILY 08/10/23 01/22/25 01/21/25 History acid 800 mcg-vit K 120 mcg capsule (Bariatric Multivitamins) parenteral amino acid 15% no.5 15 0.5 ea IV MOWEFR@0900 08/10/23 01/22/25 01/21/25 History % combination no.5 intravenous solution (Clinisol SF) zinc acetate 50 mg (zinc) capsule 100 mg PO DAILY 05/19/24 01/22/25 01/21/25 History meclizine 12.5 mg tablet 12.5 mg PO TID PRN Nausea And 06/04/24 01/22/25 01/21/25 History Vomiting clotrimazole-betamethasone 1 1 appl topical DAILY PRN Rash 09/20/24 01/22/25 01/21/25 History %-0.05 % topical cream pantoprazole 40 mg tablet,delayed 40 mg PO BID 12/03/24 01/22/25 01/21/25 History release cyanocobalamin (vitamin B-12) 1,000 mcg PO DAILY 01/22/25 01/22/25 01/21/25 History 1,000 mcg tablet gabapentin 400 mg capsule 400 mg PO TID 01/22/25 01/22/25 01/21/25 History triamcinolone acetonide 0.1 % 1 appl topical BID-TID 01/22/25 01/22/25 01/21/25 History topical cream Physical Exam Vital Signs: Vital Signs: Last Vital Signs Temp 98.4 F 01/22/25 07:57 Pulse 102 H 01/22/25 07:57 Resp 14 01/22/25 07:57 BP 171/81 H 01/22/25 07:57 Pulse Ox 97 01/22/25 07:57 O2 Del Method Room Air 01/22/25 07:57 BMI result Body Mass Index 21.5 Const: General: healthy appearing and no acute distress Nutritional Appearance: average body habitus Orientation/consciousness: patient oriented x3 Limitations: no limitations HEENT: Head: Yes normal to inspection Ears: hearing grossly normal bilaterally Eyes: Sclerae: sclerae normal Pupils: Equal, round and reactive pupils present Neck: Neck: Yes normal visual inspection Chest: Chest palpation & inspection: normal inspection of the chest Resp: Effort & Inspection: normal respiratory effort Auscultation: clear to auscultation bilaterally Cardio: Palpation: normal PMI Rate: regular rate Rhythm: regular rhythm Heart sounds: S1 normal heart sound present, S2 normal heart sound present and no murmurs GI: Palpation (GI): Soft to palpation, nontender and No hepatosplenomegaly present Auscultation: normal bowel sounds Rectal Exam - Female: deferred Skin: General skin exam: no rashes or lesions noted Neuro: General: patient oriented x3, gait normal and moves all extremities Cranial nerves: Yes Equal, round and reactive pupils present Psych: Appearance: grossly normal Mental Status: mental status grossly normal Results Labs 01/23/25 05:27 01/23/25 05:27 Labs: Short CBC 01/21/25 01/22/25 Range/Units 20:39 06:36 WBC 9.9 11.7 H (4.8-10.8) X10*3/uL Hgb 13.7 12.6 (12.0-16.0) g/dl Hct 41.8 38.8 (37.0-47.0) % Plt Count 253 262 (160-400) X10*3/uL BMP 01/21/25 01/21/25 20:39 20:39 Sodium 139 Potassium 4.1 Chloride 97 Carbon Dioxide 32 H BUN 21 H Creatinine 3.58 H Calcium 9.6 D Cancelled Liver Function 01/21/25 Range/Units 20:39 Total Bilirubin 0.5 (0.0-1.0) mg/dL Direct Bilirubin 0.2 (0.0-0.5) mg/dL AST 17 (5-31) U/L ALT < 6 (0-31) U/L Alkaline Phosphatase 153 H (39-117) U/L Albumin 4.0 (3.5-5.0) g/dL Assessment and Plan (1) Anastomotic ulcer S/P gastric bypass: Status: Acute (2) History of Sae-en-Y gastric bypass: Status: Acute (3) Hypoglycemia: Status: Resolved (4) Nausea & vomiting: Qualifiers: Vomiting type: unspecified Qualified Code(s): R11.2 - Nausea with vomiting, unspecified Status: Acute Plan 54 YF with ESRD on hemodialysis, multiple previous admissions for GI bleeding due to PUD, gastric sleeve surgery requiring multiple revisions including Sae-en-Y bypass, GERD admitted to [facility] for observation on 01/21/25 with abdominal pain. Patient began having multiple episodes of vomiting following dialysis Friday afternoon and noticed red blood mixed in with the vomitus. Pt reports she has been compliant with her medications. EGD in the recent past showed an anastomotic ulcer. GI bleeding can be from a MW tear or recurrent PUD. RECOMMENDATIONS: 1. Agree with IV PPI, antiemetics and pain medications. 2. Follow CBC Q 12 hrly x 24 hrs. 3. If H & H remains stable, OK to hold off endoscopic evaluation (since pt had an EGD in September,) and discharge home Procedures Date of Service Date of Service: 01/24/25
--- NOTE | 2025-01-22 09:12 | MHC.CM.PN ---
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
[2025-01-22] MEDS: Ferrous Sulfate 324 MG TABLET.DR PO (09:18)
[2025-01-22 14:46] LABS: Hematocrit 32.5 % (37.0-47.0); Hemoglobin 10.8 g/dl (12.0-16.0)
--- NOTE | 2025-01-22 15:03 | PM.EVENT ---
Event Note Date of Service: 01/22/25 Event Note: Nurse called, patient reporting sore throat and swollen lymph nodes. just started, patient didn't notice prior. No hypoxia, no difficulty swallowing. managing secretions without issue. will check neck ct, strep swab Time Spent With Patient Time: Total time managing care of this patient today ____ minutes.
--- NOTE | 2025-01-22 16:25 | HO.SKINPHOTO ---
Location: Left upper chest Patient arrived to unit from ER with red, itchy areas on chest - similar positions and size of telemetry stickers. Left upper chest area has open area to it - patient reported scratching the area.
[2025-01-22] MEDS: 0.9 % Sodium Chloride Flush 3 ML SYRINGE IVFLUSH ×2 (17:06→19:28)
[2025-01-22] MEDS: Ampicillin Sodium/Sulbactam Na 1.5 GM in 0.9 % Sodium Chloride 100 ML IV (17:24)
--- NOTE | 2025-01-22 18:04 | PC.NURSE ---
Patient complaining of genrealized itching throughout body and on red markings on chest (refer to wound note). Reached out to Provider Sona Lofton, order placed for Diphenhydramine.
--- NOTE | 2025-01-22 18:16 | PC.NURSE ---
Patient appeared to be resting comfortably, eyes closed, unlabored breathing. When this nurse went to flush IV for completion of antibiotic, patient awoke and asked can I get my IV Dilaudid now , this nurse went to get the patient's pain medications and upon entering her room patient appeared to be sleeping, unlabored breathing, eyes closed, IV Dilaudid not administered at this time to allow patietn to sleep.
[2025-01-23] VITALS (10 sets, daily range): BP systolic 91–147; BP diastolic 50–70; PULSE 84–101; RESP 16–18; TEMP 36.4–36.8; O2SAT 93–97
[2025-01-23] MEDS: Ampicillin Sodium/Sulbactam Na 1.5 GM in 0.9 % Sodium Chloride 100 ML IV ×4 (00:12→17:54)
[2025-01-23 05:53] LABS: Hematocrit 31.1 % (37.0-47.0); Hemoglobin 10.0 g/dl (12.0-16.0); Mean Corpuscular HGB Conc 32.2 g/dl (31.0-35.0); Mean Corpuscular Hemoglobin 29.7 pg (27.0-33.0); Mean Corpuscular Volume 92.3 fL (80.0-98.0); NRBC Abs Auto 0.000 X10*3/uL (0.0-0.012); NRBC Pct Auto 0.0 /100WBC (0.0-0.2); Platelet Count 188 X10*3/uL (160-400); Red Blood Count 3.37 X10*6/uL (4.20-5.50); White Blood Count 6.6 X10*3/uL (4.8-10.8)
[2025-01-23 06:39] LABS: Anion Gap 15 (12-20); Blood Urea Nitrogen 62 mg/dL (9-16); Calcium 8.7 mg/dL (8.4-10.2); Carbon Dioxide 25 mmol/L (22-29); Chloride 103 mmol/L (96-108); Creatinine Clr Calc Pharmacy 11.8; Estimated Glomerular Filt Rate 9; Potassium 4.6 mmol/L (3.3-5.1); Sodium 138 mmol/L (135-145)
--- NOTE | 2025-01-23 06:39 | P.EN_ITS ---
Event Note Date of Service: 01/23/25 Event Note: [place] alert for BG level 59 mg/dL. POC ordered stat. IVF D5 0.9 NS at 100 mls ordered. Dextrose 25 gms X1 now. Pt asymptomatic. Diet NPO. POC Q6H ordered. Time Spent With Patient Time: Total time managing care of this patient today ____ minutes.
[2025-01-23 06:47] LABS: Glucose, Whole Blood 53 mg/dL (60-115)
[2025-01-23 07:12] LABS: Glucose, Whole Blood 169 mg/dL (60-115)
[2025-01-23] MEDS: Sucralfate Oral Suspension 1 GM/10 ML ORAL.SUSP PO ×2 (07:42→17:01)
[2025-01-23] MEDS: Ferrous Sulfate 324 MG TABLET.DR PO (08:51)
[2025-01-23 09:29] LABS: Chlamydia pneumoniae PCR Not Detected (Not Detect.); Coronavirus 229E PCR Not Detected (Not Detect.); Coronavirus HKU1 PCR Not Detected (Not Detect.); Coronavirus NL63 PCR Not Detected (Not Detect.); Coronavirus OC43 PCR Not Detected (Not Detect.); RSV PCR Not Detected (Not Detect.); Rhino/Enterovirus PCR Not Detected (Not Detect.)
[2025-01-23 09:54] LABS: Influenza A H1 PCR Not Detected (Not Detect.); Influenza A H1-2009 PCR Not Detected (Not Detect.); Influenza A H3 PCR Not Detected (Not Detect.); SARS-CoV-2 PCR Not Detected (Not Detect.)
[2025-01-23 11:38] LABS: Glucose, Whole Blood 70 mg/dL (60-115)
--- NOTE | 2025-01-23 15:17 | P.DS_ITS ---
DS: Providers Provider Date of admission: 01/22/25 07:44 Date of discharge: 01/23/25 Primary care physician: Unknown Physician Consults: 01/22/25 07:44 Consult to Nephrology Routine Consulting Provider: [facility] Reason for consultation: ESRD on HD MWF Has provider been notified: No 01/22/25 07:53 Consult to Gastroenterology [place]ine [place] [facility] [place] [facility] Reason for consultation: black stools, coffee ground emesis Has provider been notified: No 01/22/25 16:39 Consult to Infectious Diseases Routine Consulting Provider[place] [facility] [place] [facility] Reason for consultation: acute submanibular swelling -acute /unclear etiology Has provider been notified: No 01/22/25 18:21 Consult to Wound Care Routine Consulting Provider[place] [facility] [place] [facility] Reason for consultation: red emanuel chest Attending physician on discharge: Heidi Melgar Discharging clinician: Heidi Melgar DS: Diagnosis Discharge Diagnosis (1) Anastomotic ulcer S/P gastric bypass: Status: Acute (2) History of Sae-en-Y gastric bypass: Status: Acute (3) Gastritis: Status: Acute (4) Esophagitis: Status: Acute (5) Acute GI bleeding: Status: Acute DS: Summary Hospital Course Hospital Course: HPi:54-year-old female with history of ESRD on hemodialysis, multiple episodes of GI bleeding due to PUD, gastric sleeve surgery requiring multiple revisions including Sae-en-Y bypass, GERD who presents to the emergency department with abdominal pain. Patient began having multiple episodes of vomiting following dialysis Friday afternoon. After multiple episodes of vomiting she noticed red blood mixed in with the vomitus. Due to persistent vomiting and abdominal pain she presented to the emergency department for evaluation. Lab work was relatively stable and CT abdomen and pelvis showed no acute changes, therefore the plan was for her to be discharged home. However, she then had an episode of black stools and an episode of coffee ground emesis. Gastric occult was checked and was +for blood and stool occult was positive. She received IV Protonix, Carafate and also required multiple doses of pain medication and the decision was made to keep her overnight for observation. Hospital course: 54-year-old female with history of ESRD on HD, multiple episodes of GI bleeding due to PUD, gastric sleeve surgery requiring multiple revisions including Sae-en-Y bypass, GERD, , dyslipidemia, mood disorder, fibromyalgia, chronic pain syndrome who presents to the emergency department with abdominal pain and subsequently developed coffee-ground emesis and black stools Probable upper GI bleed likely secondary to gastritis/PUD/known ulcers: last EGD 12/07 two superficial ulcers at the proximal Sae limb distal from the anastomosis; other areas of inflammation had improved . Patient placed NPO,antiemetics,PPI, carafate, H&H monitored: With the above supportive management patient is seems to be improved, no new symptoms. H /h stable around 10. Patient was encouraged to continue her home medications. Monitor CBC outpatient. Follow up with GI outpatient. Patient also has submandibular swelling and pain: Patient initially had leukocytosis of 11.7: No fever or respiratory or GI symptoms. Neck CT:Symmetric fullness of the bilateral submandibular glands with surrounding stranding, suggesting bilateral submandibular sialadenitis. No sialolithiasis is appreciated crp:0.59, ESR is 11 Patient was started on IV Unasyn, seems to be improved significantly. discussed with ID-We will switch to p.o. Augmentin upon discharge for 10 days. Patient's strep group A ZAID -negative , patient does not have any throat pain . Fluctuating fingersticks: Patient had fingersticks of 59 received dextrose overnight. Above was possibly related to being NPO and also nausea vomiting: Patient is tolerating diet now fingersticks are improving, asymptomatic. Patient was strongly advised to monitor fingersticks and if any new hypoglycemia or any symptoms-go to nearest emergency room for further evaluation. Hemoglobin A1c is 4.5. Also given Glucogel for home if needed. Plan: Complete Augmentin 500 mg p.o. b.i.d. for 10 days Continue home PPIs sucralfate Monitor CBC closely Above management discussed with the patient in detail length she understand and in agreement with the above plan, time spent 50 minute. Time Attestation Discharge Coordination Time (in mins): 50 min Quality: Safe Use of Opioids Does Pt have an Active Cancer Diagnosis on the Problem List?: No Quality: Stroke Does the patient have a stroke diagnosis?: No Physical Exam Exam: Exam: Appearance: Alert.? Oriented X3.? cvs: rrr, [id number] , no murmur res: clear to auscultation ,no rhonchii or wheezing abd: no rebound or guarding ,nt, bs present. ext pulses present , no cyanosis . neuro: axo3 , nonfocal. Vital Signs: Vital Signs: Last Vital Signs Temp 98.2 F 01/23/25 11:21 Pulse 91 01/23/25 11:21 Resp 16 01/23/25 11:21 BP 120/60 01/23/25 11:21 Pulse Ox 93 01/23/25 11:21 O2 Del Method Room Air 01/23/25 11:21 BMI result Body Mass Index 22.5 DS: Data Data Completed and Pending Completed studies during hospitalization [Text1]: Procedures Control Bleeding in Gastrointestinal Tract, Via Natural or Artificial Opening Endoscopic (09/20/24) Excision of Stomach, Pylorus, Via Natural or Artificial Opening Endoscopic, Diagnostic (11/14/24) Excision of Stomach, Via Natural or Artificial Opening Endoscopic, Diagnostic (08/09/24) Inspection of Upper Intestinal Tract, Via Natural or Artificial Opening Endoscopic (04/24/24) Introduction of Mineral-based Topical Hemostatic Agent into Upper GI, Via Natural or Artificial Opening Endoscopic, [employer] 6 (09/20/24) Introduction of Other Therapeutic Substance into Upper GI, Via Natural or Artificial Opening Endoscopic (09/20/24) Performance of Urinary Filtration, Intermittent, Less than 6 Hours Per Day (11/14/24) Transfusion of Nonautologous Red Blood Cells into Peripheral Vein, Percutaneous Approach (11/14/24) Labs on day of discharge: Laboratory Results - last 24 hr 01/21/25 01/22/25 01/22/25 20:39 06:36 17:35 WBC RBC Hgb Hct MCV MCH MCHC RDW Plt Count MPV Absolute Nucleated RBC Nucleated RBC % (auto) ESR 11 Sodium Potassium Chloride Carbon Dioxide Anion Gap BUN Creatinine Estim Creat Clear Calc Estimated GFR POC Glucose Random Glucose Estimat Average Glucose 82 Hemoglobin A1c % 4.5 Calcium C-Reactive Protein 0.59 H Respiratory Panel Triplett See Note Adenovirus (Rapid PCR) Not Detected B.pert (TEM-PCR) Not Detected B.parapertussis DNA PCR Not Detected C. pneumoniae DNA (PCR) Not Detected Coronavirus OC43 (PCR) Not Detected Coronavirus HKU1 (PCR) Not Detected Coronavirus 229E (PCR) Not Detected Coronavirus NL63 (PCR) Not Detected Human Metapneumovir PCR Not Detected Influenza A (RT-PCR) Not Detected Influenza A (H1) PCR Not Detected Influ A (H1/09) PCR Not Detected Influenza A (H3) PCR Not Detected Influenza B (RT-PCR) Not Detected M. pneumoniae (PCR) Not Detected Parainfluenza 1 (PCR) Not Detected Parainfluenza 2 (PCR) Not Detected Parainfluenza 3 (PCR) Not Detected Parainfluenza 4 (PCR) Not Detected RSV (PCR) Not Detected Entero/Rhino (PCR) Not Detected SARS-CoV-2 RNA (RT-PCR) Not Detected 01/23/25 01/23/25 01/23/25 05:27 06:44 07:07 WBC 6.6 RBC 3.37 L D Hgb 10.0 L Hct 31.1 L MCV 92.3 MCH 29.7 MCHC 32.2 RDW 15.9 Plt Count 188 D MPV 9.9 Absolute Nucleated RBC 0.000 Nucleated RBC % (auto) 0.0 ESR Sodium 138 Potassium 4.6 Chloride 103 Carbon Dioxide 25 Anion Gap 15 BUN 62 H Creatinine 4.93 H* Estim Creat Clear Calc 11.8 Estimated GFR 9 POC Glucose 53 L* 169 H Random Glucose 59 L* Estimat Average Glucose Hemoglobin A1c % Calcium 8.7 D C-Reactive Protein Respiratory Panel Triplett Adenovirus (Rapid PCR) B.pert (TEM-PCR) B.parapertussis DNA PCR C. pneumoniae DNA (PCR) Coronavirus OC43 (PCR) Coronavirus HKU1 (PCR) Coronavirus 229E (PCR) Coronavirus NL63 (PCR) Human Metapneumovir PCR Influenza A (RT-PCR) Influenza A (H1) PCR Influ A (H1/09) PCR Influenza A (H3) PCR Influenza B (RT-PCR) M. pneumoniae (PCR) Parainfluenza 1 (PCR) Parainfluenza 2 (PCR) Parainfluenza 3 (PCR) Parainfluenza 4 (PCR) RSV (PCR) Entero/Rhino (PCR) SARS-CoV-2 RNA (RT-PCR) 01/23/25 11:24 WBC RBC Hgb Hct MCV MCH MCHC RDW Plt Count MPV Absolute Nucleated RBC Nucleated RBC % (auto) ESR Sodium Potassium Chloride Carbon Dioxide Anion Gap BUN Creatinine Estim Creat Clear Calc Estimated GFR POC Glucose 70 Random Glucose Estimat Average Glucose Hemoglobin A1c % Calcium C-Reactive Protein Respiratory Panel Triplett Adenovirus (Rapid PCR) B.pert (TEM-PCR) B.parapertussis DNA PCR C. pneumoniae DNA (PCR) Coronavirus OC43 (PCR) Coronavirus HKU1 (PCR) Coronavirus 229E (PCR) Coronavirus NL63 (PCR) Human Metapneumovir PCR Influenza A (RT-PCR) Influenza A (H1) PCR Influ A (H1/09) PCR Influenza A (H3) PCR Influenza B (RT-PCR) M. pneumoniae (PCR) Parainfluenza 1 (PCR) Parainfluenza 2 (PCR) Parainfluenza 3 (PCR) Parainfluenza 4 (PCR) RSV (PCR) Entero/Rhino (PCR) SARS-CoV-2 RNA (RT-PCR) Imaging CT scan - abdomen: My impression: ct abd: No acute findings. ct neck: Symmetric fullness of the bilateral submandibular glands with surrounding stranding, suggesting bilateral submandibular sialadenitis. No sialolithiasis is appreciated. Discharge Plan Discharge Anticipated Discharge Date/Time: 01/23/25 12:40 Patient Disposition: Home, Self-Care Discharge Diagnosis: gi bleed Referrals: Physician,Unknown J [Primary Care Provider, Medical] - 1 Week Discharge Medications: New sucralfate [Carafate] 1 gram tablet 1 g PO QID PRN (Reason: dyspepsia) Qty: 15 0RF amoxicillin-pot clavulanate 500-125 mg Tablet 1 tab PO Q12H Qty: 20 0RF (DME) FreeStyle Lite Strips Strip Qty: 100 0RF Rx Instructions: Test four times a day or as directed. (DME) blood-glucose meter [FreeStyle Lite Meter] Kit Qty: 1 0RF Rx Instructions: As Directed alcohol swabs Pads, Medicated 1 pad TOPICAL QIDACHS Qty: 100 0RF Rx Instructions: Use four times a day or as directed. (DME) lancets [FreeStyle Lancets] 28 gauge misc Qty: 100 0RF Rx Instructions: Test four times a day or as directed. dextrose [Glucose Gel] 40 % gel 10 g PO Q15M PRN (Reason: hypocalcemia) Qty: 112.5 0RF Rx Instructions: until symptoms of low blood sugar are controlled Continued thiamine HCl (vitamin B1) 100 mg tablet 100 mg PO DAILY 90 Days Qty: 90 0RF vitamin A 2,400 mcg capsule 2,400 mcg PO DAILY 90 Days Qty: 90 1RF citalopram 20 mg tablet 20 mg PO DAILY 90 Days Qty: 90 1RF melatonin 10 mg capsule 20 mg PO BEDTIME Qty: 90 0RF pyridoxine (vitamin B6) 50 mg tablet 50 mg PO DAILY 90 Days Qty: 90 1RF docusate sodium 100 mg capsule 100 mg PO BID Qty: 60 3RF sucralfate 100 mg/mL suspension 10 ml PO BID Qty: 600 2RF ondansetron 4 mg tablet,disintegrating 4 mg PO Q8H PRN (Reason: nausea and vomiting) 30 Days Qty: 90 1RF acetaminophen-codeine 300-15 mg tablet 1 tab PO DAILY PRN (Reason: pain) 30 Days Qty: 20 0RF cyanocobalamin (vitamin B-12) 1,000 mcg Tablet 1,000 mcg PO DAILY clotrimazole-betamethasone 1-0.05 % cream 1 appl topical DAILY PRN (Reason: Rash) triamcinolone acetonide 0.1 % cream 1 appl topical BID-TID cyanocobalamin (vitamin B-12) 1,000 mcg Tablet 1,000 mcg PO DAILY gabapentin 400 mg capsule 400 mg PO TID misoprostol 200 mcg tablet 200 mcg PO QID Qty: 28 0RF Clinisol SF 15 % 15 % parenteral solution 0.5 ea IV MOWEFR@0900 Rx Instructions: DIALYSIS MEDICATION Bariatric Multivitamins 45 mg iron- 800 mcg-120 mcg Capsule 1 cap PO DAILY fluticasone propionate 50 mcg/actuation spray,suspension 1 spray intranasal DAILY PRN (Reason: Allergy Symptoms) Rx Instructions: administer into each nostril zinc acetate 50 mg (zinc) Capsule 100 mg PO DAILY meclizine 12.5 mg Tablet 12.5 mg PO TID PRN (Reason: Nausea And Vomiting) pantoprazole 40 mg tablet,delayed release (DR/EC) 40 mg PO BID ferrous sulfate 325 mg (65 mg iron) tablet,delayed release (DR/EC) 325 mg PO DAILY Discontinued omeprazole 40 mg capsule,delayed release(DR/EC) 40 mg PO BID@0630,1630 Discharge Orders: Discharge Order (Routine); Ordered 01/23/25 Ordered By: Heidi Melgar Diet: Advance to usual diet Activity on Discharge: As tolerated Stand Alone Forms: Patient Portal Discharge page Print Language: Maltese Other Ambulatory Orders: Complete Blood Count no Diff (Routine) Timeframe: 1 Week Facility: [facility] - Location: Laboratory Ordered By: Heidi Melgar Activity Restrictions/Additional Instructions: You had no screening lab abnormalities, the CT scan of the abdomen and pelvis was normal, there was no acute process. Given distribution of discomfort, your symptoms are consistent with acute dyspepsia/gastritis. See home care instructions for acid reflux. Use the Carafate as needed for upper abdominal discomfort. Eating small meals throughout the day can help alleviate symptoms. Avoid foods that are spicy, acidic, heavy fatty greasy, carbonated, alcohol or caffeine. All of these foods are triggers for acid reflux. Do not eat 3 hours before bed. Follow up with your primary care provider as needed. Care Plan Goals: Advised compliance with PPI and sucralfate. Monitor CBC outpatient Follow up with GI. moniter fs at home -patient had fluctuating fingersticks, patient remains asymptomatic. Above was likely due to NPO and nausea vomiting-p.o. intake improving, Encouraged for p.o. intake ,monitor fingersticks. If fingersticks remain low or any new symptoms-patient will need to go to nearest emergency room for further evaluation Completed antibiotics for sialadenitis Follow up with PCP Health Concerns: As above. Plan of Treatment: As above. Assessment: As above. Patient Instructions: Amoxicillin/Clavulanate Potassium (By mouth) (Augmentin, Augmentin..., Gastritis (GEN), Non-diabetic Hypoglycemia (DC), GERD (Gastroeso phageal Reflux Disease) (ED), Epigastric Pain (ED) Discharge Date/Time: 01/23/25 18:44
[2025-01-23 16:08] LABS: IDNOW Serial# 58CA691E; Strep A Nucleic Acid Negative (Negative)
--- NOTE | 2025-01-23 16:41 | MHC.CM.PN ---
PT CLEARED TO DC HOME TODAY WITH RESUMPTION OF [facility] AND [facility] FAMILY TO TRANSPORT
[2025-01-23] MEDS: 0.9 % Sodium Chloride Flush 3 ML SYRINGE IVFLUSH (17:01)
[2025-01-23 18:03] LABS: Glucose, Whole Blood 101 mg/dL (60-115)
--- NOTE | 2025-01-23 18:36 | PC.NURSE ---
Patient tolerated eating 100% of her dinner, no complaints of abdominal pain or nausea vomiting. Discharge teaching and education performed with patient, reviewed discharge paperwork. Medications reviewed and encourage patient to continue with medication, patient educated to follow up with primary care provider and GI and if symptoms worsen can return to the ER. Patient verbalized understanding with no questions for discharge at this time.
== END 2025-01-23 18:44 | disposition home or self-care (01) ==
LOC: HO.ED 01-22 06:52 → HO.EDOVER 01-22 07:44 → HO.S3 01-22 15:14
PROVIDERS: Physician Assistant; Admitting Provider Physician Assistant Medical; Emergency Provider Emergency Medicine; PCP Internal Medicine; Visit Provider Internal Medicine
DX: K28.0 Acute gastrojejunal ulcer with hemorrhage (principal); R10.9 Unspecified abdominal pain; R11.2 Nausea with vomiting, unspecified; I12.0 Hypertensive chronic kidney disease with stage 5 chronic kidney disease or end stage renal disease; N18.6 End stage renal disease; E16.2 Hypoglycemia, unspecified; R10.13 Epigastric pain; J02.9 Acute pharyngitis, unspecified; R59.0 Localized enlarged lymph nodes; G89.4 Chronic pain syndrome; Z99.2 Dependence on renal dialysis; Z79.899 Other long term (current) drug therapy; Z03.818 Encounter for observation for suspected exposure to other biological agents ruled out; Z98.84 Bariatric surgery status
CPT/HCPCS: 36415; 70490; 74177; 80048; 80053; 82248; 82271; 82272; 82947; 83036; 83605; 83690; 83735; 85014; 85018; 85025; 85027; 85652; 86140; 87633; 87651; 93005; 96361; 96365; 96366; 96368; 96375; 96376; 99221; 99285; J0295; J1171; J1200; J2270; J2405; J2470; Q9967

== ENCOUNTER → 2025-01-21 23:40 | Outpatient (BNV) | payer MEDICARE, MEDICAID, SELFPAY | PROVIDERS: Emergency Provider Emergency Medicine; Visit Provider General Practice | DX: R11.2 Nausea with vomiting, unspecified (principal); R10.84 Generalized abdominal pain; Z98.84 Bariatric surgery status | CPT/HCPCS: 74177 ==

== ENCOUNTER → 2025-01-22 07:44 | Outpatient (BNV) | payer MEDICARE, MEDICAID, SELFPAY | PROVIDERS: Admitting Provider Physician Assistant Medical; Emergency Provider Emergency Medicine; Visit Provider Physician Assistant Medical | DX: K28.9 Gastrojejunal ulcer, unspecified as acute or chronic, without hemorrhage or perforation (principal); Z98.84 Bariatric surgery status; K29.70 Gastritis, unspecified, without bleeding; K20.90 Esophagitis, unspecified without bleeding; K92.2 Gastrointestinal hemorrhage, unspecified | CPT/HCPCS: 99223; 99499 ==

== ENCOUNTER → 2025-01-22 07:44 | Outpatient (BNV) | payer MEDICARE, MEDICAID, SELFPAY | PROVIDERS: Admitting Provider Physician Assistant Medical; Emergency Provider Emergency Medicine; PCP Internal Medicine; Visit Provider Internal Medicine Gastroenterology | DX: K28.9 Gastrojejunal ulcer, unspecified as acute or chronic, without hemorrhage or perforation (principal); Z98.84 Bariatric surgery status; E16.2 Hypoglycemia, unspecified; R11.2 Nausea with vomiting, unspecified | CPT/HCPCS: 99222 ==